=== PATIENT | male | born 1945 | race Caucasian/White ===

== ENCOUNTER → 2017-08-04 | Outpatient (CLI) | payer OTHER, BC | END | disposition home or self-care (01) | LOC: C.LAB1850 14:10 | PROVIDERS: ATTEND Urology | DX: N52.9 Male erectile dysfunction, unspecified (principal) ==

== ENCOUNTER → 2017-08-06 | Outpatient (CLI) | payer OTHER, BC ==
[~2017-08-06] MED LIST: AMLO-110 PO; ATOR-22 PO; CYM/30 PO; ELQ25 PO; FERR1TAB23 PO; FRS/40 PO; METO-217 PO; MINO1TAB PO; MULT-1093 PO
== END | disposition home or self-care (01) ==
LOC: C.LABSPEC 17:43
PROVIDERS: ATTEND Urology
DX: R33.9 Retention of urine, unspecified (principal); N39.0 Urinary tract infection, site not specified; R30.0 Dysuria

== ENCOUNTER → 2017-08-20 | Day surgery (SDC) | payer OTHER, BC ==
[2017-08-07 13:44] VITALS: Ht 185.4 cm; Wt 102.3 kg
[~2017-08-20] VITALS: Ht 185.4 cm; Wt 102.3 kg
[~2017-08-20] MED LIST changes: +500ML BSS 0.3ML EPI 1:1000PF IRRIG ONE; +ACETAMINOPHEN 325 MG TAB PO PRN; +AMVISC PLUS 0.8ML SYRINGE INT OCU ONE; +ATROPINE SULFATE 0.1 MG/ML 5ML SYR IV PRN; +AcetaZOLAMIDE 250 MG TAB PO SCH; +BETAXOLOL HCL 0.25% OP SUSP PER DROP CHARGE OPR SCH; +BRIMONIDINE TART 0.2% OP SOLN PER DROP CHARGE ONE; +BSS FLUSH ONE; +ENDOCOAT 0.85ML SYRINGE INT OCU ONE; +EpINEphrine INJ 1MG/ML AMP 1 MG/ML AMP ONE; +LACTATED RINGER'S 1000ML 500 ML IV SCH; +LIDOCAINE 4% OP SOLN DROP CHARGE ONE; +LIDOCAINE 4% OP SOLN DROP CHARGE OPR SCH; +LIDOCAINE HCL 1% MPF 2 ML VIAL ONE; +MIDAZOLAM HCL 1 MG/ML 2ML VIAL ONE; +MIX: 4ML BSS 1ML EPI 1:1000 PF INSTIL ONE; +MOXIFLOXACIN OPH SOLN PER DROP CHARGE ONE; +PHENYLEPHRINE HCL 10% OP SOLN PER DROP CHARGE OP SCH; +POVIDONE-IODINE OP SOLN 30 ML BTL ONE; +PROPARACAINE 0.5% OP SOLN PER DROP CHARGE OPR SCH; +PROPARACAINE HCL 0.5% OP SOLN 15 ML BTL OPR ONE; +TOBRAMYCIN/DEXAMETHASONE OPH OINT PER APPLN CHARGE ONE
--- NOTE | 2017-08-20 06:48 | History & Physical Bridge - [place] ---
H&P Re-Evaluation Bridge Note: I have examined the patient, reviewed the History & Physical and in the interval since the performance of the History & Physical I have noted the following changes of clinical significance: No changes noted
[2017-08-20] MEDS: PHENYLEPHRINE HCL 2.5% OP SOLN PER DROP CHARGE OPR SCH ×2 (07:09→07:14)
[2017-08-20] MEDS: TROPICAMIDE 1% OP SOLN PER DROP CHARGE OPR SCH ×2 (07:10→07:15)
[2017-08-20] MEDS: CYCLOPENTOLATE HCL 1% OP SOLN PER DROP CHARGE OPR SCH ×2 (07:11→07:16)
[2017-08-20] MEDS: MOXIFLOXACIN OPH SOLN PER DROP CHARGE OPR SCH ×2 (07:12→07:22)
--- NOTE | 2017-08-20 08:11 | Discharge Instructions-SurgCtr ---
Discharge Instructions Date of Service Aug 20, 2017. Visit Reason for Visit: Cataract Right Eye Discharge Discharge Diagnosis / Problem: lens implant right eye Discharge Goals Goal(s): Improve function Activity Recommendations Activity Limitations: resume your previous activity Lifting Limitations: no more than 10 pounds Exercise/Sports Limitations: gradually increase as tolerated May Resume Sexual Activity: when tolerated Shower/Bathe: tomorrow Driving or Machine Use: resume 1 day after discharge Anesthesia . Post Anesthesia Instructions: If you have had General Anesthesia or IV Sedation: * Do not drive today. * Resume driving when surgeon permits. * Do not make important decisions or sign legal documents today. * Call surgeon for: 1. Temperature elevations greater than 101 degrees F. 2. Uncontrollable pain. 3. Excessive bleeding. 4. Persistent nausea and vomiting. 5. Medication intolerance (nausea, vomiting or rash). * For nausea and vomiting use only clear liquids such as: tea, soda, bouillon until nausea subsides, then gradually increase diet as tolerated. * If you have any concerns or questions, call your surgeon's office. If physician is unavailable and it is an emergency, call 911 or go to the nearest emergency room. . Instructions / Follow-Up Instructions / Follow-Up ACTIVITY RECOMMENDATIONS: * Light activities. * Mild irritation and blurred vision are common for the first few days. * You may walk outside, read, watch television. * Redness around the white part of the eye is common. MEDICATIONS: Resume previous medications unless instructed otherwise by your surgeon. * Take white Diamox (Acetazolamide) tablet at 1 pm today. Start all eye drops at 1 pm today: * Eye drops (today and tomorrow): Prednisone - one drop in operative eye every 3 hours while awake Ofloxacin - one drop in operative eye every 3 hours while awake Prolensa - one drop in operative eye once daily SPECIAL CARE INSTRUCTIONS: * Tape plastic shield over eye to sleep at night. Call your doctor at with any concerns or problems. FOLLOW UP VISIT: Follow-up with Dr Lopez at [place] office as scheduled. Diet Recommendations Home Diet: no limitations Procedures Procedures Performed: Right Cataract Phacoemulsification With Intraocular Lens Implant Pending Studies Studies pending at discharge: no Medical Emergencies . Who to Call and When: Medical Emergencies: If at any time you feel your situation is an emergency, please call 911 immediately. . Non-Emergent Contact Non-Emergency issues call your: Computer Animator Call Non-Emergent contact if: your pain is not controlled [phone] . . "Provider Documentation" section prepared by Kodak Lopez. .
--- NOTE | 2017-08-20 08:12 | [facility] Operative Report ---
Operative Report Date of Service Aug 20, 2017. Operative Report 1. PREOPERATIVE DIAGNOSIS: Senile nuclear cataract, right eye. 2. POSTOPERATIVE DIAGNOSIS: Senile nuclear cataract, right eye. 3. PROCEDURE: Phacoemulsification of right cataract with posterior chamber lens implant, type [employer]ausch [employer] Lomb, model MI60L, power +20.5 diopters. ANESTHESIA: Local standby. SURGEON: Dr. Lopez. COMPLICATIONS: None. OPERATING TIME: 10 minutes. 4. OPERATION AND FINDINGS: DESCRIPTION OF PROCEDURE: The right pupil was dilated. The anesthetic was administered using a topical technique. The patient was transferred to the Femto Laser Room to make the primary incision, open the capsule, make two astigmatic incisions, and break up the cataract. The patient was then transferred to the operating room. The right eye was prepped and draped. A speculum was placed. A clear corneal incision was formed. The chamber was filled with Amvisc Plus and Endocoat. Epinephrine solution was used. A paracentesis was placed. A capsulorrhexis was performed. The nucleus was hydrodissected. The lens was removed with phacoemulsification. Time was 2.81 seconds. The aspiration unit was used to remove the cortex. The capsule was filled with Amvisc Plus. The lens implant was folded and placed into the capsule. The incisions were hydrated. The Amvisc was aspirated. The wounds were secure. The chamber was deep. The pupil was round. Brimonidine, TobraDex ointment and Vigamox solution were placed. The speculum was removed. The patient was returned to the Recovery Room in stable condition. I attest to the content of the Intraoperative Record and any orders documented therein. Any exceptions are noted below. The scribe's documentation has been prepared in my presence, under my direction and personally reviewed by me in its entirety. I confirm that the note above accurately reflects all work, treatment, procedures, and medical decision making performed by me. I personally scribed for Kodak Lopez M.D. ([email or web address]) on 08/20/17 at 08:12. Electronically submitted by Sofia Sheikh ([facility]).
[2017-08-20 08:13] VITALS: TEMP 36.6
[2017-08-20 08:38] VITALS: BP 120/79; PULSE 73; O2SAT 99
--- NOTE | 2017-08-20 08:52 | Anesthesia Progress Nt - [facility] ---
Anesthesia Post Op Note Date & Time Aug 20, 2017 at 08:51 Vital Signs Pain Intensity: 0 Vital Signs Past 12 Hours Date Time Temp Pulse Resp B/P (MAP) Pulse Ox O2 Delivery O2 Flow Rate FiO2 08/20/17 08:38 73 18 120/79 (93) 99 Room Air 08/20/17 08:13 36.6 72 16 122/80 (94) 99 Room Air 08/20/17 07:52 77 18 123/80 94 08/20/17 07:45 76 16 116/74 95 08/20/17 06:59 36.6 78 20 145/85 (105) 100 Room Air Notes Mental Status: alert / awake / arousable, participated in evaluation Pt Amnestic to Procedure: Yes Nausea / Vomiting: adequately controlled Pain: adequately controlled Airway Patency, RR, SpO2: stable & adequate BP & HR: stable & adequate Hydration State: stable & adequate Anesthetic Complications: no major complications apparent
== END | disposition home or self-care (01) ==
LOC: X.SURG 06:45
PROVIDERS: ATTEND Specialist
DX: H25.11 Age-related nuclear cataract, right eye (principal); I10 Essential (primary) hypertension; Z79.899 Other long term (current) drug therapy

== ENCOUNTER → 2017-09-12 | Outpatient (CLI) | payer OTHER, BC ==
[~2017-09-12] MED LIST changes: -500ML BSS 0.3ML EPI 1:1000PF IRRIG ONE; -ACETAMINOPHEN 325 MG TAB PO PRN; -AMVISC PLUS 0.8ML SYRINGE INT OCU ONE; -ATROPINE SULFATE 0.1 MG/ML 5ML SYR IV PRN; -AcetaZOLAMIDE 250 MG TAB PO SCH; -BETAXOLOL HCL 0.25% OP SUSP PER DROP CHARGE OPR SCH; -BRIMONIDINE TART 0.2% OP SOLN PER DROP CHARGE ONE; -BSS FLUSH ONE; -ENDOCOAT 0.85ML SYRINGE INT OCU ONE; -EpINEphrine INJ 1MG/ML AMP 1 MG/ML AMP ONE; -LACTATED RINGER'S 1000ML 500 ML IV SCH; -LIDOCAINE 4% OP SOLN DROP CHARGE ONE; -LIDOCAINE 4% OP SOLN DROP CHARGE OPR SCH; -LIDOCAINE HCL 1% MPF 2 ML VIAL ONE; -MIDAZOLAM HCL 1 MG/ML 2ML VIAL ONE; -MIX: 4ML BSS 1ML EPI 1:1000 PF INSTIL ONE; -MOXIFLOXACIN OPH SOLN PER DROP CHARGE ONE; -PHENYLEPHRINE HCL 10% OP SOLN PER DROP CHARGE OP SCH; -POVIDONE-IODINE OP SOLN 30 ML BTL ONE; -PROPARACAINE 0.5% OP SOLN PER DROP CHARGE OPR SCH; -PROPARACAINE HCL 0.5% OP SOLN 15 ML BTL OPR ONE; -TOBRAMYCIN/DEXAMETHASONE OPH OINT PER APPLN CHARGE ONE
[2017-09-12 14:09] LABS: BASO % 0.8 %; BASO ABS # 0.05 K/uL (0-0.2); EOS ABS # 0.13 K/uL (0-0.5); HEMATOCRIT 39.7 % (42-52); HEMOGLOBIN 13.5 g/dL (14.0-18.0); IG# 0.01 K/uL (0.00-0.02); LYMPH % 11.1 %; LYMPH ABS # 0.72 K/uL (1.2-3.4); MEAN CELL VOLUME 90.8 fL (80-100); MEAN CORPUSCULAR HEMOGLOBIN 30.9 pg (25-34); MONO % 9.1 %; MONO ABS # 0.59 K/uL (0.11-0.59); NEUT % 76.8 %; NEUT ABS # 4.96 K/uL (1.4-6.5); PLATELET COUNT 196 K/uL (130-400); RED CELL DISTRIBUTION WIDTH CV 14.1 % (11.5-14.5); RED CELL DISTRIBUTION WIDTH SD 46.5 fL (36.4-46.3); WHITE BLOOD COUNT 6.46 K/uL (4.8-10.8)
[2017-09-12 14:13] LABS: ALBUMIN 3.9 gm/dl (3.4-5.0); ALT/SGPT 34 U/L (12-78); AST/SGOT 28 U/L (15-37); BLOOD UREA NITROGEN 39 mg/dl (7-18); CALCIUM 8.7 mg/dl (8.5-10.1); CARBON DIOXIDE 27 mmol/L (21-32); CREATININE 2.61 mg/dl (0.60-1.40); GLUCOSE 99 mg/dl (70-99); SODIUM 141 mmol/L (136-145)
[2017-09-12 14:16] LABS: ALKALINE PHOSPHATASE 97 U/L (45-117); CHOLESTEROL 155 mg/dl (0-200); LDL CHOLESTEROL CALCULATED 34 mg/dl; TOTAL PROTEIN 7.2 gm/dl (6.4-8.2)
== END | disposition home or self-care (01) ==
LOC: C.LABBC 11:30
PROVIDERS: ATTEND Nurse Practitioner Adult Health
DX: I10 Essential (primary) hypertension (principal); E78.00 Pure hypercholesterolemia, unspecified; I48.91 Unspecified atrial fibrillation

== ENCOUNTER → 2017-09-17 | Day surgery (SDC) | payer OTHER, BC ==
[2017-09-02 11:26] VITALS: BMI 29.0
[2017-09-08 08:26] VITALS: Ht 185.4 cm; Wt 102.3 kg
[~2017-09-17] VITALS: Ht 185.4 cm; Wt 102.3 kg
[~2017-09-17] MED LIST changes: +500ML BSS 0.3ML EPI 1:1000PF IRRIG ONE; +ACETAMINOPHEN 325 MG TAB PO PRN; +AMVISC PLUS 0.8ML SYRINGE INT OCU ONE; +ATROPINE SULFATE 0.1 MG/ML 5ML SYR IV PRN; +AcetaZOLAMIDE 250 MG TAB PO SCH; +BETAXOLOL HCL 0.25% OP SUSP PER DROP CHARGE OPL SCH; +BRIMONIDINE TART 0.2% OP SOLN PER DROP CHARGE ONE; +BSS FLUSH ONE; +CYCLOPENTOLATE HCL 1% OP SOLN PER DROP CHARGE OPL SCH; +ENDOCOAT 0.85ML SYRINGE INT OCU ONE; +EpHEDrine SULFATE INJ 50 MG/ML AMP IV PRN; +EpINEphrine INJ 1MG/ML AMP 1 MG/ML AMP ONE; +LACTATED RINGER'S 1000ML 500 ML IV SCH; +LIDOCAINE 4% OP SOLN DROP CHARGE ONE; +LIDOCAINE 4% OP SOLN DROP CHARGE OPL SCH; +LIDOCAINE HCL 1% MPF 2 ML VIAL ONE; +MIDAZOLAM HCL 1 MG/ML 2ML VIAL ONE; +MIX: 4ML BSS 1ML EPI 1:1000 PF INSTIL ONE; +MOXIFLOXACIN OPH SOLN PER DROP CHARGE ONE; +MOXIFLOXACIN OPH SOLN PER DROP CHARGE OPL SCH; +OCUCOAT 1 ML SOLN IO ONE; +PHENYLEPHRINE HCL 10% OP SOLN 5 ML BTL OPL ONE; +PHENYLEPHRINE HCL 2.5% OP SOLN PER DROP CHARGE OPL SCH; +POVIDONE-IODINE OP SOLN 30 ML BTL ONE; +PROPARACAINE 0.5% OP SOLN PER DROP CHARGE OPL SCH; +PROPARACAINE HCL 0.5% OP SOLN 15 ML BTL OPL ONE; +TOBRAMYCIN/DEXAMETHASONE OPH OINT PER APPLN CHARGE ONE; +TROPICAMIDE 1% OP SOLN PER DROP CHARGE OPL SCH
--- NOTE | 2017-09-17 07:28 | History & Physical Bridge - [place] ---
H&P Re-Evaluation Bridge Note: I have examined the patient, reviewed the History & Physical and in the interval since the performance of the History & Physical I have noted the following changes of clinical significance: No changes noted Planning Femto Laser.
[2017-09-17] MEDS: PHENYLEPHRINE HCL 2.5% OP SOLN PER DROP CHARGE OPL SCH ×2 (08:47→08:55)
[2017-09-17] MEDS: TROPICAMIDE 1% OP SOLN PER DROP CHARGE OPL SCH ×2 (08:48→08:56)
[2017-09-17] MEDS: CYCLOPENTOLATE HCL 1% OP SOLN PER DROP CHARGE OPL SCH ×2 (08:49→08:57)
[2017-09-17] MEDS: MOXIFLOXACIN OPH SOLN PER DROP CHARGE OPL SCH ×2 (08:50→08:59)
--- NOTE | 2017-09-17 09:57 | [facility] Operative Report ---
Operative Report Date of Service Sep 17, 2017. Operative Report 1. PREOPERATIVE DIAGNOSIS: Senile nuclear cataract, left eye. 2. POSTOPERATIVE DIAGNOSIS: Senile nuclear cataract, left eye. 3. PROCEDURE: Phacoemulsification of left cataract with posterior chamber lens implant, type Bausch [employer] Lomb, model MI60L, power +20.0 diopters. ANESTHESIA: Local standby. SURGEON: Dr. Lopez. COMPLICATIONS: None. OPERATING TIME: 10 minutes. 4. OPERATION AND FINDINGS: DESCRIPTION OF PROCEDURE: The left pupil was dilated. The patient was transported to the Femto Laser room. The Femto was used to make the primary incision, astigmatic incisions, open the capsule, and break up the lens. The patient then was transported to the operating room. The anesthetic was administered using a topical technique. The left eye was prepped and draped. A speculum was placed. A clear corneal incision was formed. The chamber was filled with Amvisc Plus and Endocoat. Epinephrine solution was used. A paracentesis was placed. A capsulorrhexis was performed. The nucleus was hydrodissected. The lens was removed with phacoemulsification. Time was 1.17 seconds. The aspiration unit was used to remove the cortex. The capsule was filled with Amvisc Plus. The lens implant was folded and placed into the capsule. The incisions were hydrated. The Amvisc was aspirated. The wounds were secure. The chamber was deep. The pupil was round. Brimonidine, TobraDex ointment and Vigamox solution were placed. The speculum was removed. The patient was returned to the Recovery Room in stable condition. I attest to the content of the Intraoperative Record and any orders documented therein. Any exceptions are noted below. The scribe's documentation has been prepared in my presence, under my direction and personally reviewed by me in its entirety. I confirm that the note above accurately reflects all work, treatment, procedures, and medical decision making performed by me. I personally scribed for Kodak Lopez M.D. ([place]) on 09/17/17 at 09:57. Electronically submitted by Sofia Sheikh ([facility]).
--- NOTE | 2017-09-17 09:59 | Discharge Instructions-SurgCtr ---
Discharge Instructions Date of Service Sep 17, 2017. Visit Reason for Visit: Cataract Left Eye Discharge Discharge Diagnosis / Problem: lens implant left eye Discharge Goals Goal(s): Improve function Activity Recommendations Activity Limitations: resume your previous activity Lifting Limitations: no more than 10 pounds Exercise/Sports Limitations: gradually increase as tolerated May Resume Sexual Activity: when tolerated Shower/Bathe: tomorrow Driving or Machine Use: resume 1 day after discharge Anesthesia . Post Anesthesia Instructions: If you have had General Anesthesia or IV Sedation: * Do not drive today. * Resume driving when surgeon permits. * Do not make important decisions or sign legal documents today. * Call surgeon for: 1. Temperature elevations greater than 101 degrees F. 2. Uncontrollable pain. 3. Excessive bleeding. 4. Persistent nausea and vomiting. 5. Medication intolerance (nausea, vomiting or rash). * For nausea and vomiting use only clear liquids such as: tea, soda, bouillon until nausea subsides, then gradually increase diet as tolerated. * If you have any concerns or questions, call your surgeon's office. If physician is unavailable and it is an emergency, call 911 or go to the nearest emergency room. . Instructions / Follow-Up Instructions / Follow-Up ACTIVITY RECOMMENDATIONS: * Light activities. * Mild irritation and blurred vision are common for the first few days. * You may walk outside, read, watch television. * Redness around the white part of the eye is common. MEDICATIONS: Resume previous medications unless instructed otherwise by your surgeon. * Take white Diamox (Acetazolamide) tablet at 1 pm today. Start all eye drops at 1 pm today: * Eye drops (today and tomorrow): Prednisone - one drop in operative eye every 3 hours while awake Ofloxacin - one drop in operative eye every 3 hours while awake Prolensa - one drop in operative eye once daily SPECIAL CARE INSTRUCTIONS: * Tape plastic shield over eye to sleep at night. Call your doctor at with any concerns or problems. FOLLOW UP VISIT: Follow-up with Dr Lopez at [place] office as scheduled. Diet Recommendations Home Diet: no limitations Procedures Procedures Performed: Left Cataract Phacoemulsification With Intraocular Lens Implant Pending Studies Studies pending at discharge: no Medical Emergencies . Who to Call and When: Medical Emergencies: If at any time you feel your situation is an emergency, please call 911 immediately. . Non-Emergent Contact Non-Emergency issues call your: Service Center Technician Call Non-Emergent contact if: your pain is not controlled [phone] . . "Provider Documentation" section prepared by Kodak Lopez. .
[2017-09-17 10:00] VITALS: TEMP 36.8
--- NOTE | 2017-09-17 10:07 | Anesthesia Progress Nt - [facility] ---
Anesthesia Post Op Note Date & Time Sep 17, 2017 at 10:07 Vital Signs Pain Intensity: 0 Vital Signs Past 12 Hours Date Time Temp Pulse Resp B/P (MAP) Pulse Ox O2 Delivery O2 Flow Rate FiO2 09/17/17 10:00 36.8 69 16 124/78 (93) 97 Room Air 09/17/17 09:37 66 09/17/17 09:37 66 97 09/17/17 09:36 137/81 09/17/17 09:32 79 09/17/17 09:32 79 119/84 100 09/17/17 08:36 36.9 76 16 134/80 (98) 98 Room Air Notes Mental Status: alert / awake / arousable, participated in evaluation Pt Amnestic to Procedure: Yes Nausea / Vomiting: adequately controlled Pain: adequately controlled Airway Patency, RR, SpO2: stable & adequate BP & HR: stable & adequate Hydration State: stable & adequate Anesthetic Complications: no major complications apparent
[2017-09-17 10:24] VITALS: BP 137/85; PULSE 63; O2SAT 96
== END | disposition home or self-care (01) ==
LOC: X.SURG 08:01
PROVIDERS: ATTEND Specialist
DX: H25.12 Age-related nuclear cataract, left eye (principal); G47.33 Obstructive sleep apnea (adult) (pediatric); I48.91 Unspecified atrial fibrillation

== ENCOUNTER → 2017-09-19 | Outpatient (CLI) | payer OTHER, BC ==
[~2017-09-19] MED LIST changes: -500ML BSS 0.3ML EPI 1:1000PF IRRIG ONE; -ACETAMINOPHEN 325 MG TAB PO PRN; -AMVISC PLUS 0.8ML SYRINGE INT OCU ONE; -ATROPINE SULFATE 0.1 MG/ML 5ML SYR IV PRN; -AcetaZOLAMIDE 250 MG TAB PO SCH; -BETAXOLOL HCL 0.25% OP SUSP PER DROP CHARGE OPL SCH; -BRIMONIDINE TART 0.2% OP SOLN PER DROP CHARGE ONE; -BSS FLUSH ONE; -CYCLOPENTOLATE HCL 1% OP SOLN PER DROP CHARGE OPL SCH; -ENDOCOAT 0.85ML SYRINGE INT OCU ONE; -EpHEDrine SULFATE INJ 50 MG/ML AMP IV PRN; -EpINEphrine INJ 1MG/ML AMP 1 MG/ML AMP ONE; -LACTATED RINGER'S 1000ML 500 ML IV SCH; -LIDOCAINE 4% OP SOLN DROP CHARGE ONE; -LIDOCAINE 4% OP SOLN DROP CHARGE OPL SCH; -LIDOCAINE HCL 1% MPF 2 ML VIAL ONE; -MIDAZOLAM HCL 1 MG/ML 2ML VIAL ONE; -MIX: 4ML BSS 1ML EPI 1:1000 PF INSTIL ONE; -MOXIFLOXACIN OPH SOLN PER DROP CHARGE ONE; -MOXIFLOXACIN OPH SOLN PER DROP CHARGE OPL SCH; -OCUCOAT 1 ML SOLN IO ONE; -PHENYLEPHRINE HCL 10% OP SOLN 5 ML BTL OPL ONE; -PHENYLEPHRINE HCL 2.5% OP SOLN PER DROP CHARGE OPL SCH; -POVIDONE-IODINE OP SOLN 30 ML BTL ONE; -PROPARACAINE 0.5% OP SOLN PER DROP CHARGE OPL SCH; -PROPARACAINE HCL 0.5% OP SOLN 15 ML BTL OPL ONE; -TOBRAMYCIN/DEXAMETHASONE OPH OINT PER APPLN CHARGE ONE; -TROPICAMIDE 1% OP SOLN PER DROP CHARGE OPL SCH
[2017-09-19 13:55] LABS: BLOOD UREA NITROGEN 42 mg/dl (7-18); CARBON DIOXIDE 24 mmol/L (21-32); CREATININE 2.52 mg/dl (0.60-1.40); GLUCOSE 85 mg/dl (70-99); POTASSIUM 3.8 mmol/L (3.5-5.1); SODIUM 140 mmol/L (136-145)
== END | disposition home or self-care (01) ==
LOC: C.LABBC 10:35
PROVIDERS: ATTEND Nurse Practitioner Adult Health
DX: N18.4 Chronic kidney disease, stage 4 (severe) (principal)

== ENCOUNTER → 2017-09-25 | Outpatient (CLI) | payer OTHER, BC | END | disposition home or self-care (01) | LOC: C.LABSPEC 14:10 | PROVIDERS: ATTEND Internal Medicine Nephrology | DX: N18.4 Chronic kidney disease, stage 4 (severe) (principal) ==

== ENCOUNTER → 2017-09-26 | Outpatient (CLI) | payer OTHER, BC ==
--- NOTE | 2017-09-26 11:35 | DIAGNOSTIC IMAGING REPORT ---
RENAL ULTRASOUND CLINICAL HISTORY: Acute on chronic renal insufficiency. COMPARISON STUDY: None. TECHNIQUE: Sonography of the kidneys and the urinary bladder was performed. FINDINGS: The right kidney measures 10.4 x 4 x 5.1 cm and the left measures 10.1 x 4.5 x 4.6 cm. Renal echogenicity is increased. Renal size and cortical thickness are normal. There is no hydronephrosis. The left renal pelvis is slightly prominent. Several small anechoic bilateral renal lesions measure up to 1.3 cm and reflect cysts. Both ureteral jets were identified. IMPRESSION: 1. No hydronephrosis. 2. Increased renal echogenicity consistent with medical renal disease. 3. Normal renal size and cortical thickness. Electronically signed by: Chao Connolly M.D. 09/26/2017 11:34 AM Dictated Date/Time: 09/26/2017 11:32 AM
== END | disposition home or self-care (01) ==
LOC: C.ULTRBC 11:03
PROVIDERS: ATTEND Internal Medicine Nephrology
DX: N28.9 Disorder of kidney and ureter, unspecified (principal)

== ENCOUNTER → 2017-10-09 | Outpatient (CLI) | payer OTHER, BC ==
[2017-10-09 14:12] LABS: ALBUMIN 3.8 gm/dl (3.4-5.0); BLOOD UREA NITROGEN 41 mg/dl (7-18); CALCIUM 8.9 mg/dl (8.5-10.1); CARBON DIOXIDE 27 mmol/L (21-32); CREATININE 2.63 mg/dl (0.60-1.40); GLUCOSE 154 mg/dl (70-99); POTASSIUM 3.9 mmol/L (3.5-5.1); SODIUM 137 mmol/L (136-145)
[2017-10-09 14:16] LABS: PHOSPHORUS 3.3 mg/dl (2.5-4.9)
== END | disposition home or self-care (01) ==
LOC: C.LABBC 10:31
PROVIDERS: ATTEND Internal Medicine Nephrology
DX: N28.9 Disorder of kidney and ureter, unspecified (principal)

== ENCOUNTER → 2017-12-08 | Outpatient (CLI) | payer OTHER, BC ==
[~2017-12-08] MED LIST changes: +BACL10TA PO
--- NOTE | 2017-12-08 12:46 | DIAGNOSTIC IMAGING REPORT ---
LEG LENGTH STUDY (WHOLE LEG) CLINICAL HISTORY: LEG LENGTH COMPARISON STUDY: No previous studies for comparison. FINDINGS: Total right hip and knee arthroplasties are noted. When measuring from the superior aspect of the femoral component of the right hip arthroplasty through the tibial plafond, the right lower extremity measures 97.3 cm in length. When measuring from the left femoral head to the tibial plafond, the left lower extremity measures 96.4 cm. IMPRESSION: 1. Right lower extremity length of 97.3 cm and left lower extremity length of 96.4 cm. 2. Status post total right hip and knee arthroplasty. Electronically signed by: Chao Connolly M.D. 12/08/2017 12:45 PM Dictated Date/Time: 12/08/2017 12:42 PM
== END | disposition home or self-care (01) ==
LOC: C.RADBC 12:16
PROVIDERS: ATTEND Anesthesiology
DX: M46.1 Sacroiliitis, not elsewhere classified (principal); Z96.641 Presence of right artificial hip joint; Z96.651 Presence of right artificial knee joint

== ENCOUNTER → 2018-03-02 | Outpatient (CLI) | payer OTHER, BC ==
[~2018-03-02] MED LIST changes: -AMLO-110 PO; +AMLO5TAB3 PO; -CYM/30 PO; +DULO60CA44 PO
[2018-03-02 13:40] LABS: ALBUMIN 3.9 gm/dl (3.4-5.0); ALKALINE PHOSPHATASE 83 U/L (45-117); ALT/SGPT 35 U/L (12-78); AST/SGOT 23 U/L (15-37); BLOOD UREA NITROGEN 44 mg/dl (7-18); CALCIUM 8.5 mg/dl (8.5-10.1); CARBON DIOXIDE 28 mmol/L (21-32); CREATININE 2.49 mg/dl (0.60-1.40); GLUCOSE 83 mg/dl (70-99); POTASSIUM 4.1 mmol/L (3.5-5.1); SODIUM 139 mmol/L (136-145); TOTAL PROTEIN 7.1 gm/dl (6.4-8.2)
== END | disposition home or self-care (01) ==
LOC: C.LABBC 10:20
PROVIDERS: ATTEND Nurse Practitioner Adult Health
DX: I10 Essential (primary) hypertension (principal); E78.00 Pure hypercholesterolemia, unspecified

== ENCOUNTER 2019-05-16 23:05 | Inpatient (IN) ==
[2019-05-16] MEDS ORDERED: SODIUM CHLORIDE 0.9% 1000ML 1,000 ML IV SCH (23:30)
[2019-05-17 00:04] LABS: Basophils # (auto) 0.01 K/uL (0-0.2); Basophils % (auto) 0.1 %; Eosinophils # (auto) 0.07 K/uL (0-0.5); Hematocrit (blood only) 34.9 % (42-52); Hemoglobin 11.5 g/dL (14.0-18.0); Immature Granulocytes # (auto) 0.02 K/uL (0.00-0.02); Immature Granulocytes % (auto) 0.3 %; Lymphocytes % (auto) 2.8 %; Mean Corpuscular Hemoglobin 30.4 pg (25-34); Mean Corpuscular Volume 92.3 fL (80-100); Mean Platelet Volume 8.9 fL (7.4-10.4); Monocytes # (auto) 0.33 K/uL (0.11-0.59); Monocytes % (auto) 4.6 %; Neutrophils # (auto) 6.58 K/uL (1.4-6.5); Neutrophils % (auto) 91.2 %; Platelet Count 187 K/uL (130-400); RDW Standard Deviation 47.4 fL (36.4-46.3); Red Blood Count 3.78 M/uL (4.7-6.1); White Blood Count 7.21 K/uL (4.8-10.8)
[2019-05-17 00:13] LABS: INR 1.1 (0.9-1.1); Prothrombin Time 11.4 Seconds (9.0-12.0)
[2019-05-17] MEDS ORDERED: APIXABAN 2.5 MG TAB PO STA (00:18)
[2019-05-17] MEDS ORDERED: METOPROLOL TARTRATE 1 MG/ML VIAL IV STA ×2 (00:18→01:13)
[2019-05-17 00:24] LABS: Troponin I 0.022 ng/ml (0-0.045)
[2019-05-17 00:25] LABS: Appearance Urine Cloudy (Clear); Bilirubin Urine Negative (Negative); Blood Urine 2+ (Negative); Color Urine Yellow; Glucose Urine UA Negative (Negative); Ketones Urine Negative (Negative); Leukocyte Esterase Urine 1+ (Negative); Nitrite Urine Positive (Negative); Protein Urine 2+ (Negative); Urobilinogen Urine Negative (Negative)
[2019-05-17] MEDS ORDERED: cefTRIAXone SODIUM 2,000 MG/70 ML BAG IV STA (00:32)
[2019-05-17 00:33] LABS: WBC Urine >30 /hpf (0-5)
[2019-05-17 00:34] LABS: Epithelial Cell Urine 0-5 /lpf (0-5)
[2019-05-17 00:35] LABS: Bacteria Urine 2+ (Negative)
[2019-05-17 00:53] LABS: Alanine Aminotransferase 24 U/L (12-78); Albumin Level 3.6 gm/dl (3.4-5.0); Aspartate Aminotransferase 19 U/L (15-37); BUN Creatinine Ratio 21.1 (10-20); Blood Urea Nitrogen 48 mg/dl (7-18); Est GFR (African American) 32.4; Est GFR (Non-African American) 27.9; Glucose 127 mg/dl (70-99); Lipase 490 U/L (73-393)
[2019-05-17 00:56] LABS: Albumin Globulin Ratio 1.1 (0.9-2); Alkaline Phosphatase 101 U/L (45-117); Bilirubin,Total 0.6 mg/dl (0.2-1); Globulin 3.3 gm/dl (2.5-4.0); Total Protein 6.9 gm/dl (6.4-8.2)
[2019-05-17 01:07] LABS: Calcium 8.3 mg/dl (8.5-10.1); Carbon Dioxide 22 mmol/L (21-32); Chloride 107 mmol/L (98-107); Potassium 3.2 mmol/L (3.5-5.1); Sodium 139 mmol/L (136-145)
--- NOTE | 2019-05-17 01:43 | Emergency Department Note ---
Entered by Alexus Barber acting as a scribe for Jeremiah Prado M.D. History of Present Illness General Chief complaint: Urinary Symptoms Stated complaint: UTI SYMPTOMS Source: patient History of Present Illness Onset (ago): hour(s) (this morning) Location: genitals Pain Consistency: + intermittent Maximum Pain Intensity: 4 Quality: + other (urinary symptoms) Associated symptoms: + fever/chills, + weakness and + other (lower abdominal pain); no cough and no shortness of breath The patient is a 73 year old male who presents to the Emergency Room with complaints of intermittent urinary symptoms beginning this morning. The patient notes his urine was dark with a strong odor. The patient reports chills, fever, lower abdominal pain, and weakness this evening. He denies cough, shortness of breath, and cold symptoms. The patient reports using a self catheterization four times a day for the past several years. He states his last urine check was 6 weeks ago. He notes previous urinary infections. The patient reports a history of blood clots, and states he is on Eliquis. He notes his urologist is Dr. Ba. Home Medications Home Medications Medication Instructions Recorded Confirmed Type amlodipine 5 mg tablet 5 mg PO QAM 04/06/18 05/16/19 History apixaban 2.5 mg tablet 2.5 mg PO BID 04/06/18 05/16/19 History atorvastatin 20 mg tablet 20 mg PO HS tab 04/06/18 05/16/19 History ferrous sulfate 325 mg (65 mg 325 mg PO DAILY tab 04/06/18 05/16/19 History iron) tablet furosemide 40 mg tablet 40 mg PO QAM 04/06/18 05/16/19 History metoprolol succinate ER 50 mg 50 mg PO QAM 04/06/18 05/16/19 History tablet,extended release 24 hr minoxidil 10 mg tablet 10 mg PO QAM 04/06/18 05/16/19 History multivitamin with minerals tablet 1 tab PO DAILY tab 04/06/18 05/16/19 History tramadol 50 mg PO Q6H PRN #14 tab 05/05/18 05/16/19 Rx duloxetine 30 mg capsule,delayed 30 mg PO DAILY #90 cap 03/26/19 05/16/19 Rx release alprazolam 0.25 mg tablet 0.25 mg PO DAILY PRN #30 tab 04/07/19 05/16/19 Rx ciclopirox 8 % TOPICAL UD 05/16/19 05/16/19 History Allergies Allergy/AdvReac Type Severity Reaction Status Date / Time tetracycline Allergy Unknown HIVES Verified 05/16/19 23:39 Past Med/Surg History Medical History Urinary retention Onychomycosis Mitral regurgitation Lumbar radiculopathy Impotence, organic Edema Diarrhea Constipation Chronic rhinitis Chronic kidney disease, stage IV (severe) BPH with obstruction/lower urinary tract symptoms Arthritis Anxiety Adult situational stress disorder Acute on chronic renal insufficiency Atrial fibrillation Hyperlipidemia Hypertension Lumbar spinal stenosis (Chronic) Neurogenic bladder (Chronic) ST CATH EVERY 5 HOURS AND PRN PTSD (post-traumatic stress disorder) POST AORTIC DISSECTION Creatinine elevation Osteoarthritis Sleep apnea CPAP Surgical History History of cardiac catheterization 2003 History of gastric bypass 2010 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 Aortic dissection 2014 REPAIR (ARTIFICIAL)/[place] History of arthroscopy RT KNEE History of cataract surgery RT/LEFT History of colonoscopy History of esophagogastroduodenoscopy (EGD) History of open reduction and internal fixation (ORIF) procedure RT WRIST History of rhinoplasty History of tooth extraction History of total hip arthroplasty RT History of total knee replacement RT Nausea and vomiting after administration of anesthetic agent Family History Grandmother Family history of diabetes mellitus Mother Gallbladder disease Father Hypertension Prostate cancer Myocardial infarction Other Family history non-contributory Social History Preferred Language: Kyr[place] Communication Ability: Effective Private Client Advisor Required: No Beliefs That Will Affect Care: None Current Living Situation: Family Feels Safe at Home: Yes Smoking Status: Never smoker Second Hand Exposure: No ; Hx Alcohol Use: No Hx Substance Use: No Review of Systems See HPI for pertinent positives & negatives. and A total of 10 systems reviewed and were otherwise negative Physical Exam Vital Signs Vital Signs - 24 hr 05/16/19 23:10 05/17/19 00:17 05/17/19 00:40 Temperature 36.9 C Temperature Source Oral Sepsis Recent Fever Within 48 Hours No Sepsis New/Unexplained Change in Mental Status No Sepsis Action Taken by Nursing No Action Required Pulse Rate 115 H Pulse Rate [Bilateral Apical] 106 H 97 H Respiratory Rate 18 20 18 Respiratory Effort / Characteristics Non-Labored Respiratory Depth Normal Normal Blood Pressure 152/88 H Blood Pressure [Left Arm] 148/91 H 131/82 Blood Pressure Mean 109 Blood Pressure Mean [Left Arm] 110 98 Pulse Oximetry 97 96 97 Oxygen Delivery Method Room Air Room Air Room Air 05/17/19 01:20 05/17/19 01:53 05/17/19 02:20 Temperature Temperature Source Sepsis Recent Fever Within 48 Hours Sepsis New/Unexplained Change in Mental Status Sepsis Action Taken by Nursing Pulse Rate Pulse Rate [Bilateral Apical] 102 H 114 H 106 H Respiratory Rate 20 20 20 Respiratory Effort / Characteristics Respiratory Depth Blood Pressure Blood Pressure [Left Arm] 121/83 112/72 104/72 Blood Pressure Mean Blood Pressure Mean [Left Arm] 95 85 82 Pulse Oximetry 94 95 96 Oxygen Delivery Method Room Air Room Air Room Air 05/17/19 03:05 Temperature 37.3 C Temperature Source Oral Sepsis Recent Fever Within 48 Hours Sepsis New/Unexplained Change in Mental Status Sepsis Action Taken by Nursing Pulse Rate Pulse Rate [Bilateral Apical] 108 H Respiratory Rate 20 Respiratory Effort / Characteristics Respiratory Depth Blood Pressure Blood Pressure [Left Arm] 108/67 Blood Pressure Mean Blood Pressure Mean [Left Arm] 80 Pulse Oximetry 96 Oxygen Delivery Method Room Air GENERAL: Awake, alert, well-appearing, in no distress HENT: Normocephalic, atraumatic. EYES: Normal conjunctiva. Sclera non-icteric. NECK: Supple. No nuchal rigidity. RESPIRATORY: Clear to auscultation. No wheezes. Normal respiratory effort. CARDIAC: Tachycardic rate. Irregular rhythm. Extremities warm and perfused. GI: Soft, non-distended. Slight super suprapubic tenderness. No rebound or guarding. RECTAL: Deferred. MUSCULOSKELETAL: Atraumatic. Chest examination reveals no tenderness. LOWER EXTREMITIES: Calves are equal size bilaterally and non-tender. No edema. NEURO: Decreased motor function in LEs. No facial droop or slurred speech. SKIN: Warm and dry. No rash or jaundice noted. Course 2315: Past medical records reviewed. The patient was evaluated in room B02 . A complete history and physical exam was performed. 0035: Upon reevaluation, the patient is feeling better. 0122: Upon reevaluation, I discussed findings and results with the patient and his family. They verbalized agreement of the treatment plan. Page to Dr. Hay of the [facility] [place] Hospitalist Service was placed. The patient will be evaluated for further management and care. Administered Medications Discontinued Medications Acetaminophen (Tylenol) 1,000 mg PO NOW STA Stop: 05/17/19 02:06 Last Admin: 05/17/19 02:28 Dose: 1,000 mg Documented by: [id number] Apixaban (Eliquis) 2.5 mg PO BID STA Stop: 05/17/19 00:19 Last Admin: 05/17/19 00:51 Dose: 2.5 mg Documented by: [id number] Sodium Chloride (Nss 1000ml) 1,000 mls @ 999 mls/hr IV .Q1H1M [place] Stop: 05/17/19 00:30 Last Infusion: 05/17/19 00:39 Dose: 0 mls/hr Documented by: [id number] Admin: 05/16/19 23:40 Dose: 999 mls/hr Documented by: [id number] Ceftriaxone Sodium (Rocephin) 2,000 mg in 70 mls @ 140 mls/hr IV NOW STA Stop: 05/17/19 01:01 Last Infusion: 05/17/19 01:13 Dose: 0 mls/hr Documented by: [id number] Admin: 05/17/19 00:39 Dose: 140 mls/hr Documented by: [id number] Metoprolol Tartrate (Lopressor) 5 mg IV NOW STA Stop: 05/17/19 00:19 Last Admin: 05/17/19 00:33 Dose: 5 mg Documented by: [id number] Metoprolol Tartrate (Lopressor) 5 mg IV NOW STA Stop: 05/17/19 01:14 Last Admin: 05/17/19 01:19 Dose: 5 mg Documented by: [id number] Potassium Chloride (Klor-Con M20) 40 meq PO NOW STA Stop: 05/17/19 01:45 Last Admin: 05/17/19 02:14 Dose: Not Given Documented by: [id number] Potassium Chloride (Klor-Con M10) Confirm Administered Dose 40 meq PO .STK-MED ONE Stop: 05/17/19 01:52 Last Admin: 05/17/19 01:53 Dose: 40 meq Documented by: [id number] Medical Decision Making Differential Diagnosis Differential diagnosis: Etiologies such as viral syndrome, otitis, pharyngitis, pneumonia, influenza, meningitis, urinary tract infection, sepsis, bacteremia, as well as others were entertained. Medical Records Attestation: I reviewed the patient's medical records. Home Medications Current Medication List: was personally reviewed by me Laboratory Data Attestation: I reviewed the patient's lab results. Result diagrams: 05/16/19 23:25 05/16/19 23:25 Lab Results 05/16/19 05/16/19 05/16/19 Range/Units 23:25 23:25 23:25 WBC 7.21 (4.8-10.8) K/uL RBC 3.78 L (4.7-6.1) M/uL Hgb 11.5 L (14.0-18.0) g/dL Hct 34.9 L (42-52) % MCV 92.3 (80-100) fL MCH 30.4 (25-34) pg MCHC 33.0 (32-36) g/dL RDW Std Deviation 47.4 H (36.4-46.3) fL RDW Coeff of [place]ector 14.0 (11.5-14.5) % Plt Count 187 (130-400) K/uL MPV 8.9 (7.4-10.4) fL Immature Gran % (Auto) 0.3 % Neut % (Auto) 91.2 % Lymph % (Auto) 2.8 % [place] % (Auto) 4.6 % Eos % (Auto) 1.0 % Baso % (Auto) 0.1 % Immature Gran # (Auto) 0.02 (0.00-0.02) K/uL Neut # (Auto) 6.58 H (1.4-6.5) K/uL Lymph # (Auto) 0.20 L (1.2-3.4) K/uL [place] # (Auto) 0.33 (0.11-0.59) K/uL Eos # (Auto) 0.07 (0-0.5) K/uL Baso # (Auto) 0.01 (0-0.2) K/uL PT 11.4 (9.0-12.0) Seconds INR 1.1 (0.9-1.1) Sodium Potassium Chloride Carbon Dioxide Anion Gap BUN Creatinine Est Cr Clr Drug Dosing Est GFR ( Amer) Est GFR (Non-Af Amer) BUN/Creatinine Ratio Glucose Lactate 1.4 (0.4-2.0) mmol/L Calcium Magnesium (1.8-2.4) mg/dl Total Bilirubin AST ALT Alkaline Phosphatase Troponin I Total Protein Albumin Globulin Albumin/Globulin Ratio Lipase Urine Color Urine Appearance (Clear) Urine pH (4.5-7.5) Ur Specific [place] (1.000-1.030) Urine Protein (Negative) Urine Glucose (UA) (Negative) Urine Ketones (Negative) Urine Blood (Negative) Urine Nitrite (Negative) Urine Bilirubin (Negative) Urine Urobilinogen (Negative) Ur Leukocyte Esterase (Negative) Urine RBC (0-4) /hpf Urine WBC (0-5) /hpf Ur Epithelial Cells (0-5) /lpf Urine Bacteria (Negative) 05/16/19 05/16/19 05/17/19 Range/Units 23:25 23:25 00:20 WBC (4.8-10.8) K/uL RBC (4.7-6.1) M/uL Hgb (14.0-18.0) g/dL Hct (42-52) % MCV (80-100) fL MCH (25-34) pg MCHC (32-36) g/dL RDW Std Deviation (36.4-46.3) fL RDW Coeff of [place]ector (11.5-14.5) % Plt Count (130-400) K/uL MPV (7.4-10.4) fL Immature Gran % (Auto) % Neut % (Auto) % Lymph % (Auto) % [place] % (Auto) % Eos % (Auto) % Baso % (Auto) % Immature Gran # (Auto) (0.00-0.02) K/uL Neut # (Auto) (1.4-6.5) K/uL Lymph # (Auto) (1.2-3.4) K/uL [place] # (Auto) (0.11-0.59) K/uL Eos # (Auto) (0-0.5) K/uL Baso # (Auto) (0-0.2) K/uL PT (9.0-12.0) Seconds INR (0.9-1.1) Sodium Cancelled 139 Potassium Cancelled 3.2 L Chloride Cancelled 107 Carbon Dioxide Cancelled 22 Anion Gap Cancelled 11.0 BUN Cancelled 48 H Creatinine Cancelled 2.26 H Est Cr Clr Drug Dosing Cancelled Not Reportable Est GFR ( Amer) Cancelled 32.4 Est GFR (Non-Af Amer) Cancelled 27.9 BUN/Creatinine Ratio Cancelled 21.1 H Glucose Cancelled 127 H Lactate (0.4-2.0) mmol/L Calcium Cancelled 8.3 L Magnesium 2.3 (1.8-2.4) mg/dl Total Bilirubin Cancelled 0.6 AST Cancelled 19 ALT Cancelled 24 Alkaline Phosphatase Cancelled 101 Troponin I Cancelled 0.022 Total Protein Cancelled 6.9 Albumin Cancelled 3.6 Globulin Cancelled 3.3 Albumin/Globulin Ratio Cancelled 1.1 Lipase Cancelled 490 H Urine Color Yellow Urine Appearance Cloudy A (Clear) Urine pH 6.0 (4.5-7.5) Ur Specific [place] 1.020 (1.000-1.030) Urine Protein 2+ H (Negative) Urine Glucose (UA) Negative (Negative) Urine Ketones Negative (Negative) Urine Blood 2+ H (Negative) Urine Nitrite Positive A (Negative) Urine Bilirubin Negative (Negative) Urine Urobilinogen Negative (Negative) Ur Leukocyte Esterase 1+ H (Negative) Urine RBC 5-10 H (0-4) /hpf Urine WBC >30 H (0-5) /hpf Ur Epithelial Cells 0-5 (0-5) /lpf Urine Bacteria 2+ H (Negative) ECG Data Attestation: I personally reviewed and interpreted this ECG as follows: Indication: weakness Rate (beats per minute): 120 Rhythm: atrial fibrillation Findings: + other (RVR); no ST elevation Comparison ECG Date: no prior available Blood Pressure Blood Pressure Findings: Elevated blood pressure Blood Pressure Disposition: further management by hospitalist CARO Narrative Patient is a 73-year-old gentleman with a past medical history including atrial fibrillation on Eliquis, hypertension, and neurogenic bladder secondary to 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 Patient states this evening he got the shakes like he was cold around 630p. At 1030p he can get out of his chair and was very weak saying he had no strength in his legs. Normally caths every 6 hours. Patient had a small follow his urine this morning is concern for possible urinary infection. Chills this evening with rigors and some weakness. Febrile at 38.3F on my exam here. States compliance with home medication. History of UTIs. Slight significant te nderness but no significant abdominal tenderness. No respiratory symptoms reported. Basic labs, lactate, culture obtained as well as EKG. patient is somewhat tachycardic and appears to be in A. fib RVR here. Given dose of metoprolol. Given evening dose of Eliquis which he requires. Permanently in A. fib per car prior cardiology notes. White blood cell count of 7 is not significantly elevated. Anemia is quite mild and near previous values. Chronic kidney dysfunction is present and does not look worsened at this point. Urinalysis obtained shows concerning signs for infection. Based on prior sensitivities given a dose of ceftriaxone. Patient against endorsing generalized weakness difficulty transferring and they do not feel comfortable going home at this point as they do not believe that could get him out of the car. Given additional doses of metoprolol here to try to help with his A. fib RVR which is likely from his underlying infection. Discussed with the hospitalist for further observation and care here in the hospital. Impression & Plan Acute UTI, Atrial fibrillation with rapid ventricular response, Weakness Discharge Plan Visit Data Chief Complaint: Urinary Symptoms Stated Complaint: UTI SYMPTOMS ED Provider: Jeremiah Prado Discharge Problem: Acute UTI, Atrial fibrillation with rapid ventricular response, Weakness Patient Disposition: Being Evaluated by Hospitalist Discharge Instructions Interventions: ED Discharge Assessment Last Done: 05/17/19 03:12 Forms Stand Alone Forms: My [facility] [address] Prescriptions Prescriptions: No Action furosemide [Lasix] 40 mg tablet 40 mg PO QAM RF: 0 atorvastatin [Lipitor] 20 mg tablet 20 mg PO HS RF: 0 metoprolol succinate [Toprol XL] 50 mg tablet extended release 24 hr 50 mg PO QAM RF: 0 amlodipine 5 mg tablet 5 mg PO QAM RF: 0 ferrous sulfate 325 mg (65 mg iron) tablet 325 mg PO DAILY RF: 0 minoxidil 10 mg tablet 10 mg PO QAM RF: 0 multivitamin with minerals tablet 1 tab PO DAILY RF: 0 apixaban [Eliquis] 2.5 mg tablet 2.5 mg PO BID RF: 0 duloxetine [Cymbalta] 30 mg capsule,delayed release(DR/EC) 30 mg PO DAILY Qty: 90 RF: 1 alprazolam 0.25 mg tablet 0.25 mg PO DAILY PRN (Reason: anxiety) Qty: 30 RF: 0 ciclopirox 8 % solution 8 % topical UD RF: 0 tramadol 50 mg tablet 50 mg PO Q6H PRN (Reason: pain) Qty: 14 RF: 0 Referrals Referrals: Merced Alonso PA-C [Primary Care Provider] - The scribe's documentation has been prepared under my direction and personally reviewed by me in its entirety. I confirm that the note above accurately reflects all work, treatment, procedures, and medical decision making performed by me.
[2019-05-17] MEDS ORDERED: POTASSIUM CHLORIDE 20 MEQ TABCR PO STA (01:44)
[2019-05-17] MEDS ORDERED: POTASSIUM CHLORIDE 10 MEQ TABCR PO ONE (01:51)
[2019-05-17 01:53] LABS: Magnesium 2.3 mg/dl (1.8-2.4)
[2019-05-17] MEDS ORDERED: ACETAMINOPHEN 500 MG TAB PO STA (02:05)
--- NOTE | 2019-05-17 02:52 | History & Physical Report ---
Date of Service May 17, 2019 Assessment & Plan (1) Acute UTI: 73-year-old male with history of HTN, HLD, A. fib on Eliquis, AAA, aortic dissection, neurogenic bladder secondary to spinal cord ischemia presents with chills, fever and foul-smelling urine UTI, complicated, neurogenic bladder, patient self catheterizes UA positive for infection, Rocephin 1 g every 24, tailor antibiotics based on culture results Normal saline 80 cc/h Patient was febrile, no flank tenderness leukocytosisobserve for ascending infection A. fib, RVR Continue metoprolol, Eliquis At the time of admission, patient was in the low 100s page if rates go above 115-120 Hypertension/HLD/AAA/status post aortic dissection and repair Continue minoxidil, amlodipine Continue atorvastatin Anxiety/PTSD Continue alprazolam nightly as needed Chronic pain Continue tramadol as needed, duloxetine DVT prophylaxiscontinue home Eliquis Dietheart healthy, saline 80 cc/h CODE STATUSfull (2) Atrial fibrillation with rapid ventricular response: (3) Weakness: (4) Urinary retention: (5) Chronic kidney disease, stage IV (severe): (6) Hyperlipidemia: (7) Hypertension: (8) Neurogenic bladder: (9) PTSD (post-traumatic stress disorder): History of Present Illness Primary Care Provider: Merced Alonso PA-C 73-year-old male with history of HTN, HLD, A. 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 Patient noted that this morning with self-catheterization he noticed foul-smelling cloudy urine. This evening the patient came down with chills, fevers felt very weak. He was unable to stand up and ambulate on his own. Patient self caths 6 times per day. He is been getting normal volumes. Reports past medical history UTI. Allergies Allergy/AdvReac Type Severity Reaction Status Date / Time tetracycline Allergy Unknown HIVES Verified 05/16/19 23:39 Home Medications Home Medications Medication Instructions Recorded Confirmed Type amlodipine 5 mg tablet 5 mg PO QAM 04/06/18 05/16/19 History apixaban 2.5 mg tablet 2.5 mg PO BID 04/06/18 05/16/19 History atorvastatin 20 mg tablet 20 mg PO HS tab 04/06/18 05/16/19 History ferrous sulfate 325 mg (65 mg 325 mg PO DAILY tab 04/06/18 05/16/19 History iron) tablet furosemide 40 mg tablet 40 mg PO QAM 04/06/18 05/16/19 History metoprolol succinate ER 50 mg 50 mg PO QAM 04/06/18 05/16/19 History tablet,extended release 24 hr minoxidil 10 mg tablet 10 mg PO QAM 04/06/18 05/16/19 History multivitamin with minerals tablet 1 tab PO DAILY tab 04/06/18 05/16/19 History tramadol 50 mg PO Q6H PRN #14 tab 05/05/18 05/16/19 Rx duloxetine 30 mg capsule,delayed 30 mg PO DAILY #90 cap 03/26/19 05/16/19 Rx release alprazolam 0.25 mg tablet 0.25 mg PO DAILY PRN #30 tab 04/07/19 05/16/19 Rx ciclopirox 8 % TOPICAL UD 05/16/19 05/16/19 History Past Med/Surg History Medical History Urinary retention Onychomycosis Mitral regurgitation Lumbar radiculopathy Impotence, organic Edema Diarrhea Constipation Chronic rhinitis Chronic kidney disease, stage IV (severe) BPH with obstruction/lower urinary tract symptoms Arthritis Anxiety Adult situational stress disorder Acute on chronic renal insufficiency Atrial fibrillation Hyperlipidemia Hypertension Lumbar spinal stenosis (Chronic) Neurogenic bladder (Chronic) ST CATH EVERY 5 HOURS AND PRN PTSD (post-traumatic stress disorder) POST AORTIC DISSECTION Creatinine elevation Osteoarthritis Sleep apnea CPAP Surgical History History of cardiac catheterization 2003 History of gastric bypass 2010 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 Aortic dissection 2015 REPAIR (ARTIFICIAL)/[place] History of arthroscopy RT KNEE History of cataract surgery RT/LEFT History of colonoscopy History of esophagogastroduodenoscopy (EGD) History of open reduction and internal fixation (ORIF) procedure RT WRIST History of rhinoplasty History of tooth extraction History of total hip arthroplasty RT History of total knee replacement RT Nausea and vomiting after administration of anesthetic agent Family History Grandmother Family history of diabetes mellitus Mother Gallbladder disease Father Hypertension Prostate cancer Myocardial infarction Other Family history non-contributory Social History Preferred Language: [place] Communication Ability: Effective Calender Supervisor Required: No Beliefs That Will Affect Care: None Current Living Situation: Alone Feels Safe at Home: Yes Safety Concerns: Feels Safe At This Time Smoking Status: Never smoker Second Hand Exposure: No ; Hx Alcohol Use: No Hx Substance Use: No Review of Systems Constitutional: + fever, + chills, + sweats, + fatigue and + weakness Ear, Nose, Mouth, Throat: no ear pain, no nasal discharge and no sore throat Respiratory: no cough, no chest congestion, no dyspnea and no wheezing Cardiovascular: no chest pain, no dyspnea, no palpitations and no edema Gastrointestinal: no abdominal pain, no nausea, no vomiting and no diarrhea/loose stools Genitourinary: no flank pain Musculoskeletal: no back pain Integumentary: no rash Physical Exam Constitutional: WD/WN, vitals as above Eyes: PERRL, conjunctivae normal, anicteric sclerae ENMT: external ear and nose normal, oropharynx normal Neck: trachea midline, no thyromegaly Respiratory: normal respiratory effort, lungs clear to auscultation Cardiovascular: RRR, no murmur, no edema Gastrointestinal (Abdomen): normal bowel sounds, soft, nontender, no hepatosplenomegaly Musculoskeletal: no cyanosis or clubbing, extremities motor strength 5/5 Skin: no rashes, warm and dry Neurologic: PERRL, EOMI, accommodation nl, no face palsy, no dysarthria Psychiatric: A+Ox3, euthymic affect Results & Data Vital Signs (Past 12 Hours) Vital Signs Temp Pulse Pulse Resp BP BP Pulse Ox 05/17/19 02:20 106 H 20 104/72 96 05/17/19 01:53 114 H 20 112/72 95 05/17/19 01:20 102 H 20 121/83 94 05/17/19 00:40 97 H 18 131/82 97 05/17/19 00:17 106 H 20 148/91 H 96 05/16/19 23:10 36.9 C 115 H 18 152/88 H 97 Code Status & VTE Plan Code Status Full code VTE Prophylaxis Plan VTE Prophylaxis will be ordered: Yes Supervising Physician Co-Signing Physician Notes Attending addendum: I have physically seen this patient, have supervised the medical residents activities, and agree with the H&P unless as otherwise noted. Assessment and Plan: Urinary tract infection/presumptive prostatitis/neurogenic bladder with patient self-catheterization every 5 hours. Follow urine culture and sensitivity. Ceftriaxone 1 g IV every 24 hours. Atrial fibrillation with RVR/hypertension/status post aortic dissection and repair- Continue metoprolol, Eliquis,, minoxidil and amlodipine. Optimize potassium with oral supplementation. Hyperlipidemia- Continue atorvastatin. Check a fasting lipid panel and hemoglobin A1c. Remainder of orders and notations as noted. PG Care Time/CCT Total # of Minutes Spent Total Time Spent with Patient: Total time spent is greater than 50% in coordination of care (as documented) at patient's floor/unit and/or counseling patient: Resident Activity Tracking Resident Involvement: Resident Care Provided Care Provided: Adult Hospital Medicine (1) Hypertension Hypertension type: essential hypertension Qualified Code(s): I10 - Essential (primary) hypertension
[2019-05-17] MEDS ORDERED: POLYETHYLENE (MIRALAX) 17 GM PACK PO PRN (03:36)
[2019-05-17] MEDS ORDERED: ACETAMINOPHEN 325 MG TAB PO PRN (03:36)
[2019-05-17] MEDS ORDERED: SODIUM CHLORIDE 0.9% 1000ML 1,000 ML IV SCH (03:36)
[2019-05-17] MEDS ORDERED: TRAMADOL HCL 50 MG TABLET PO PRN (03:36)
[2019-05-17] MEDS: ALPRAZolam 0.25 MG TABLET PO PRN ×2 (04:02→23:29)
[2019-05-17 07:30] LABS: Hematocrit (blood only) 30.3 % (42-52); Hemoglobin 10.2 g/dL (14.0-18.0); Mean Corpuscular Hemoglobin 30.9 pg (25-34); Mean Corpuscular Hgb Conc 33.7 g/dL (32-36); Mean Corpuscular Volume 91.8 fL (80-100); Mean Platelet Volume 8.3 fL (7.4-10.4); Platelet Count 158 K/uL (130-400); RDW Standard Deviation 47.1 fL (36.4-46.3); White Blood Count 11.09 K/uL (4.8-10.8)
[2019-05-17] MEDS: MINOXIDIL 2.5 MG TAB PO SCH (07:48)
[2019-05-17] MEDS: AMLODIPINE BESYLATE 5 MG TAB PO SCH (07:48)
[2019-05-17] MEDS: METOPROLOL SUCC 50MG EXT REL TAB PO SCH (07:48)
[2019-05-17] MEDS: APIXABAN 2.5 MG TAB PO SCH ×2 (07:49→21:37)
[2019-05-17] MEDS: DULOXETINE HCL 30 MG CAP PO SCH (07:49)
[2019-05-17] MEDS: FUROSEMIDE 40 MG TAB PO SCH (07:49)
[2019-05-17 07:50] LABS: Basophils # (auto) 0.01 K/uL (0-0.2); Basophils % (auto) 0.1 %; Echinocytes 1+; Eosinophils # (auto) 0.01 K/uL (0-0.5); Eosinophils % (auto) 0.1 %; Immature Granulocytes # (auto) 0.03 K/uL (0.00-0.02); Immature Granulocytes % (auto) 0.3 %; Lymphocytes # (auto) 0.65 K/uL (1.2-3.4); Lymphocytes % (auto) 5.9 %; Monocytes % (auto) 11.7 %; Neutrophils # (auto) 9.09 K/uL (1.4-6.5); Neutrophils % (auto) 81.9 %
[2019-05-17 08:06] LABS: BUN Creatinine Ratio 19.9 (10-20); Calcium 7.7 mg/dl (8.5-10.1); Creatinine Clr Calc Pharmacy 34.7 ml/min; Est GFR (African American) 29.4; Est GFR (Non-African American) 25.3; Potassium 3.4 mmol/L (3.5-5.1)
[2019-05-17] MEDS ORDERED: MINOXIDIL 10 MG TAB PO SCH (09:00)
--- NOTE | 2019-05-17 14:21 | Family Medicine Progress Note ---
Date of Service May 17, 2019 Assessment & Plan (1) Acute UTI: 73-year-old male with history of HTN, HLD, A. fib on Eliquis, AAA, aortic dissection, neurogenic bladder secondary to spinal cord ischemia presents with chills, fever and foul-smelling urine UTI, complicated, neurogenic bladder, patient self catheterizes UA positive for infection, Rocephin 1 g every 24, will adjust antibiotics based on culture results Blood cultures appear to be growing gram negative bacilli, awaiting culture and sensitivities on urine and blood. Patient was afebrile, highest temp 37.8 no flank tenderness leukocytosisobserve for ascending infection A. fib, RVR Continue metoprolol, Eliquis Heart rates in 60's today Hypertension/HLD/AAA/status post aortic dissection and repair Continue minoxidil, amlodipine Continue atorvastatin Anxiety/PTSD Continue alprazolam nightly as needed Chronic pain Continue tramadol as needed, duloxetine DVT prophylaxiscontinue home Eliquis Dietheart healthy, tolerating PO well, will discontinue IV fluids CODE STATUSfull (2) Atrial fibrillation with rapid ventricular response: (3) Weakness: (4) Urinary retention: (5) Chronic kidney disease, stage IV (severe): (6) Hyperlipidemia: (7) Hypertension: (8) Neurogenic bladder: (9) PTSD (post-traumatic stress disorder): Supervising Physician Co-Signing Physician Notes Resident Physician Supervision Note: I independently interviewed and examined the patient and verified the wellington history and physical, reviewed labs and image studies, discussed the case with the resident Dr. Hyatt and agree with the findings and care plan. Subjective Mr. Escobedo is doing well today, feeling much better than he did previously. He tells me his legs are stronger and he is ambulating well. He feels exhausted from not sleeping much last night. Review of Systems Review of Systems: All systems reviewed & are unremarkable except as noted in HPI & below Physical Exam Constitutional: WD/WN, vitals as above Eyes: PERRL, conjunctivae normal, anicteric sclerae ENMT: external ear and nose normal, oropharynx normal Neck: trachea midline, no thyromegaly Respiratory: normal respiratory effort, lungs clear to auscultation Cardiovascular: Rate/Rhythm: regular rate; + abnormal rhythm Heart Sounds: normal S1 and normal S2; no click, no gallop, no murmur and no cardiac rub Gastrointestinal (Abdomen): normal bowel sounds, soft, nontender, no hepatosplenomegaly Musculoskeletal: no cyanosis or clubbing, extremities motor strength 5/5 Skin: no rashes, warm and dry Neurologic: PERRL, EOMI, accommodation nl, no face palsy, no dysarthria Psychiatric: A+Ox3, euthymic affect Results & Data Vital Signs (Past 12 Hours) Vital Signs Temp Pulse Pulse Resp BP Pulse Ox 05/17/19 11:06 36.6 C 65 19 109/62 97 05/17/19 07:19 36.6 C 73 102/65 97 05/17/19 04:03 74 16 97 05/17/19 03:15 37.8 C H 101 H 18 107/65 95 05/17/19 03:05 37.3 C 108 H 20 108/67 96 05/17/19 02:20 106 H 20 104/72 96 PG Care Time/CCT Total # of Minutes Spent Total Time Spent with Patient: Total time spent is greater than 50% in coordination of care (as documented) at patient's floor/unit and/or counseling patient: Resident Activity Tracking Resident Involvement: Resident Care Provided Care Provided: Adult Hospital Medicine (1) Hypertension Hypertension type: essential hypertension Qualified Code(s): I10 - Essential (primary) hypertension
[2019-05-17] MEDS: ATORVASTATIN 20 MG TAB PO SCH (21:37)
[2019-05-18] MEDS: cefTRIAXone SODIUM 2,000 MG in DEXTROSE 5% 50 ML IV SCH (00:09)
[2019-05-18 07:31] LABS: Basophils # (auto) 0.04 K/uL (0-0.2); Basophils % (auto) 0.6 %; Eosinophils # (auto) 0.27 K/uL (0-0.5); Eosinophils % (auto) 3.9 %; Hematocrit (blood only) 30.8 % (42-52); Hemoglobin 10.2 g/dL (14.0-18.0); Immature Granulocytes # (auto) 0.01 K/uL (0.00-0.02); Immature Granulocytes % (auto) 0.1 %; Lymphocytes # (auto) 0.94 K/uL (1.2-3.4); Lymphocytes % (auto) 13.5 %; Mean Corpuscular Hemoglobin 30.6 pg (25-34); Mean Corpuscular Hgb Conc 33.1 g/dL (32-36); Mean Corpuscular Volume 92.5 fL (80-100); Mean Platelet Volume 8.6 fL (7.4-10.4); Monocytes # (auto) 1.09 K/uL (0.11-0.59); Monocytes % (auto) 15.7 %; Neutrophils % (auto) 66.2 %; Platelet Count 174 K/uL (130-400); RDW Coefficient of Variation 14.2 % (11.5-14.5); RDW Standard Deviation 48.2 fL (36.4-46.3); Red Blood Count 3.33 M/uL (4.7-6.1); White Blood Count 6.95 K/uL (4.8-10.8)
[2019-05-18] MEDS: MINOXIDIL 2.5 MG TAB PO SCH (07:51)
[2019-05-18] MEDS: DULOXETINE HCL 30 MG CAP PO SCH (07:51)
[2019-05-18] MEDS: AMLODIPINE BESYLATE 5 MG TAB PO SCH (07:52)
[2019-05-18] MEDS: FUROSEMIDE 40 MG TAB PO SCH (07:52)
[2019-05-18] MEDS: APIXABAN 2.5 MG TAB PO SCH ×2 (07:52→20:18)
[2019-05-18] MEDS: METOPROLOL SUCC 50MG EXT REL TAB PO SCH (07:53)
[2019-05-18 07:57] LABS: BUN Creatinine Ratio 20.3 (10-20); Calcium 8.1 mg/dl (8.5-10.1); Creatinine Clr Calc Pharmacy 32.9 ml/min; Est GFR (African American) 27.6; Est GFR (Non-African American) 23.8; Potassium 3.4 mmol/L (3.5-5.1)
[2019-05-18] MEDS: POTASSIUM CHLORIDE 20 MEQ TABCR PO SCH (08:53)
--- NOTE | 2019-05-18 18:56 | Family Medicine Progress Note ---
Date of Service May 18, 2019 Assessment & Plan (1) Acute UTI: 73-year-old male with history of HTN, HLD, A. 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 fib, RVR Continue metoprolol, Eliquis Heart rates well controlled since admission Will step down to med/surg Hypertension/HLD/AAA/status post aortic dissection and repair Continue minoxidil, amlodipine Continue atorvastatin Anxiety/PTSD Continue alprazolam nightly as needed Chronic pain Continue tramadol as needed, duloxetine DVT prophylaxiscontinue home Eliquis Dietheart healthy, tolerating PO well Dispo: Med/Surg CODE STATUSfull (2) Atrial fibrillation with rapid ventricular response: (3) Weakness: (4) Urinary retention: (5) Chronic kidney disease, stage IV (severe): (6) Hyperlipidemia: (7) Hypertension: (8) Neurogenic bladder: (9) PTSD (post-traumatic stress disorder): Supervising Physician Co-Signing Physician Notes Resident Physician Supervision Note: I independently interviewed and examined the patient and verified the wellington history and physical, reviewed labs and image studies, discussed the case with the resident Dr. Hyatt and agree with the findings and care plan. Subjective Mr. Escobedo is back to feeling in his usual state of health. He denies any fevers chills, or weakness. He is ambulating well, no concerns at this time, but anxious to get home. Review of Systems Review of Systems: All systems reviewed & are unremarkable except as noted in HPI & below Physical Exam Constitutional: WD/WN, vitals as above Eyes: PERRL, conjunctivae normal, anicteric sclerae ENMT: external ear and nose normal, oropharynx normal Neck: trachea midline, no thyromegaly Respiratory: normal respiratory effort, lungs clear to auscultation Cardiovascular: Rate/Rhythm: regular rate; + abnormal rhythm Heart Sounds: normal S1 and normal S2; no click, no gallop, no murmur and no cardiac rub Gastrointestinal (Abdomen): normal bowel sounds, soft, nontender, no hepatosplenomegaly Musculoskeletal: no cyanosis or clubbing, extremities motor strength 5/5 Skin: no rashes, warm and dry Neurologic: PERRL, EOMI, accommodation nl, no face palsy, no dysarthria Psychiatric: A+Ox3, euthymic affect Results & Data Vital Signs (Past 12 Hours) Vital Signs Temp Pulse Resp BP Pulse Ox 05/18/19 15:36 37.0 C 89 18 118/69 97 05/18/19 11:41 36.9 C 54 L 20 135/78 95 05/18/19 07:34 36.5 C 75 18 130/82 99 PG Care Time/CCT Total # of Minutes Spent Total Time Spent with Patient: Total time spent is greater than 50% in coordination of care (as documented) at patient's floor/unit and/or counseling patient: Resident Activity Tracking Resident Involvement: Resident Care Provided Care Provided: Adult Hospital Medicine (1) Hypertension Hypertension type: essential hypertension Qualified Code(s): I10 - Essential (primary) hypertension
[2019-05-18] MEDS: ATORVASTATIN 20 MG TAB PO SCH (20:18)
[2019-05-19] MEDS: cefTRIAXone SODIUM 2,000 MG in DEXTROSE 5% 50 ML IV SCH (00:11)
[2019-05-19 07:20] VITALS: BP 115/78; TEMP 96.8; O2SAT 98
[2019-05-19 07:41] LABS: Basophils # (auto) 0.04 K/uL (0-0.2); Basophils % (auto) 0.9 %; Eosinophils # (auto) 0.28 K/uL (0-0.5); Hematocrit (blood only) 31.2 % (42-52); Hemoglobin 10.4 g/dL (14.0-18.0); Immature Granulocytes # (auto) 0.01 K/uL (0.00-0.02); Immature Granulocytes % (auto) 0.2 %; Lymphocytes % (auto) 21.4 %; Mean Corpuscular Hemoglobin 30.6 pg (25-34); Mean Corpuscular Hgb Conc 33.3 g/dL (32-36); Mean Corpuscular Volume 91.8 fL (80-100); Mean Platelet Volume 8.5 fL (7.4-10.4); Monocytes # (auto) 0.56 K/uL (0.11-0.59); Neutrophils # (auto) 2.78 K/uL (1.4-6.5); Neutrophils % (auto) 59.5 %; Platelet Count 193 K/uL (130-400); RDW Coefficient of Variation 13.7 % (11.5-14.5); White Blood Count 4.67 K/uL (4.8-10.8)
[2019-05-19 08:07] LABS: BUN Creatinine Ratio 18.7 (10-20); Calcium 8.1 mg/dl (8.5-10.1); Creatinine Clr Calc Pharmacy 31.1 ml/min; Est GFR (African American) 25.8; Est GFR (Non-African American) 22.2; Potassium 3.5 mmol/L (3.5-5.1)
[2019-05-19] MEDS: APIXABAN 2.5 MG TAB PO SCH (08:39)
[2019-05-19] MEDS: METOPROLOL SUCC 50MG EXT REL TAB PO SCH (08:39)
[2019-05-19] MEDS: DULOXETINE HCL 30 MG CAP PO SCH (08:40)
[2019-05-19] MEDS: FUROSEMIDE 40 MG TAB PO SCH (08:40)
[2019-05-19] MEDS: POTASSIUM CHLORIDE 20 MEQ TABCR PO SCH (08:40)
[2019-05-19] MEDS: AMLODIPINE BESYLATE 5 MG TAB PO SCH (08:40)
[2019-05-19] MEDS: MINOXIDIL 2.5 MG TAB PO SCH (08:41)
[2019-05-19] MEDS ORDERED: cephALEXin 500 MG CAP PO SCH (09:00)
[2019-05-19 11:20] VITALS: PULSE 63
--- NOTE | 2019-05-19 21:32 | Discharge Summary ---
Date of Service May 19, 2019 Admission HPI Per Admitting Provider 73-year-old male with history of HTN, HLD, A. 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 Patient noted that this morning with self-catheterization he noticed foul-smelling cloudy urine. This evening the patient came down with chills, fevers felt very weak. He was unable to stand up and ambulate on his own. Patient self caths 6 times per day. He is been getting normal volumes. Reports past medical history UTI. Admission Exam Per Admitting Provider Constitutional: WD/WN, vitals as above Eyes: PERRL, conjunctivae normal, anicteric sclerae ENMT: external ear and nose normal, oropharynx normal Neck: trachea midline, no thyromegaly Respiratory: normal respiratory effort, lungs clear to auscultation Cardiovascular: RRR, no murmur, no edema Gastrointestinal (Abdomen): normal bowel sounds, soft, nontender, no hepatos plenomegaly Musculoskeletal: no cyanosis or clubbing, extremities motor strength 5/5 Skin: no rashes, warm and dry Neurologic: PERRL, EOMI, accommodation nl, no face palsy, no dysarthria Psychiatric: A+Ox3, euthymic affect Principal Diagnosis E. Coli bacteremia/urosepsis Discharge Exam Constitutional WD/WN, vitals as above Eyes PERRL, conjunctivae normal, anicteric sclerae ENMT external ear and nose normal, oropharynx normal Neck trachea midline, no thyromegaly Respiratory normal respiratory effort, lungs clear to auscultation Cardiovascular Rate/Rhythm: regular rate; + abnormal rhythm Heart Sounds: normal S1 and normal S2; no click, no gallop, no murmur and no cardiac rub Gastrointestinal (Abdomen) normal bowel sounds, soft, nontender, no hepatosplenomegaly Musculoskeletal no cyanosis or clubbing, extremities motor strength 5/5 Skin no rashes, warm and dry Neurologic PERRL, EOMI, accommodation nl, no face palsy, no dysarthria Psychiatric A+Ox3, euthymic affect Discharge Data Allergies Allergy/AdvReac Type Severity Reaction Status Date / Time tetracycline Allergy Unknown HIVES Verified 05/16/19 23:39 Consultations 05/17/19 01:32 ED Decision to Admit Stat 05/17/19 03:36 Consult Case Management - Discharge Planning Routine Hospital Course (1) Acute UTI: 73-year-old male with history of HTN, HLD, A. 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 Coli Patient remained afebrile and hemodynamically stable throughout Transitioned to keflex for ten days outpatient last day 05/30/19 Patient is no longer symptomatic Chronic Renal Disease 4 Recommend rechecking BMP at outpatient follow up because creatinine elevated throughout stay from 2.3 (about baseline for patient) to 2.7 A. fib, RVR Continue metoprolol, Eliquis Heart rates well controlled throughout admission Hypertension/HLD/AAA/status post aortic dissection and repair Continue minoxidil, amlodipine Continue atorvastatin Anxiety/PTSD Continue alprazolam nightly as needed Chronic pain Continue tramadol as needed, duloxetine (2) Atrial fibrillation with rapid ventricular response: (3) Weakness: (4) Urinary retention: (5) Chronic kidney disease, stage IV (severe): (6) Hyperlipidemia: (7) Hypertension: (8) Neurogenic bladder: (9) PTSD (post-traumatic stress disorder): Total Time Total Time Spent Total Time Spent (In Minutes): See Attending attestation Discharge Plan Discharge Items Patient Disposition: Home - Self-Care Reason For Visit: AFIB RVR, UTI Discharge Diagnosis: Complicated UTI, E. Coli bacteremia urosepsis Activity: Resume your previous activity Non-emergency contact: Primary Care Provider and Urologist Call non-emergency contact if: you have any medication questions and your sy mptoms worsen Follow-up/Referrals: Merced Alonso PA-C [Primary Care Provider] - Diet: Regular and Heart Healthy Addtl Attending Provider Instructions: Mr. Escboedo it was our pleasure to treat you here for your urinary tract infection. We found that you had an E. Coli infection in your urine that had gotten into your bloodstream that appears to have caused all your symptoms. After treating you here with IV antibiotics for two days you seem to be doing much better and close to your baseline. We have transitioned you to oral antibiotics keflex 500 mg twice a day to be taken for ten more days. If you have a return of fever weakness, or altered mental status or anything else you find concerning, please return to medical care. Follow up with your primary care provider within the next week for follow up. Pending Studies at Discharge: No Stand-Alone Forms: My [facility], Smoking Cessation Medications and DC Order Prescriptions: New cephalexin 500 mg Capsule 500 mg PO BID 10 Days Qty: 20 RF: 0 Continued furosemide [Lasix] 40 mg tablet 40 mg PO QAM RF: 0 atorvastatin [Lipitor] 20 mg tablet 20 mg PO HS RF: 0 metoprolol succinate [Toprol XL] 50 mg tablet extended release 24 hr 50 mg PO QAM RF: 0 amlodipine 5 mg tablet 5 mg PO QAM RF: 0 ferrous sulfate 325 mg (65 mg iron) tablet 325 mg PO DAILY RF: 0 minoxidil 10 mg tablet 10 mg PO QAM RF: 0 multivitamin with minerals tablet 1 tab PO DAILY RF: 0 apixaban [Eliquis] 2.5 mg tablet 2.5 mg PO BID RF: 0 duloxetine [Cymbalta] 30 mg capsule,delayed release(DR/EC) 30 mg PO DAILY Qty: 90 RF: 1 alprazolam 0.25 mg tablet 0.25 mg PO DAILY PRN (Reason: anxiety) Qty: 30 RF: 0 azelastine 0.15 % (205.5 mcg) spray,non-aerosol 1 sprays INTNAS HS Qty: 30 RF: 2 ciclopirox 8 % solution 8 % topical UD RF: 0 tramadol 50 mg tablet 50 mg PO Q6H PRN (Reason: pain) Qty: 14 RF: 0 Discharge Orders: Discharge Order (Routine); Ordered 05/19/19 Ordered By: Prashant Hyatt Admission Data Admit Date/Time: 05/17/19 02:32 Attending Provider: Shari Zee Admit Provider: Zain oPnce Primary Care Provider: Merced Alonso Other Providers: Jaden Hay Other Interventions: Discharge Summary Assessment (RN) Last Done: 05/19/19 11:15 DC Date/Time DO NOT enter until pt leaves facility: 05/19/19 12:28 Supervising Physician Co-Signing Physician Notes Resident Physician Supervision Note: I independently interviewed and examined the patient and verified the wellington history and physical, reviewed labs and image studies, discussed the case with the resident Dr. Hyatt and agree with the findings and care plan. Resident Activity Tracking Resident Involvement: Resident Care Provided Care Provided: Adult [facility] Medicine
== END 2019-05-19 12:28 | disposition home or self-care (01) | DRG 699 ==
LOC: ED 23:05 → SUATTDRO 05-17 02:32 → 2S 05-17 02:32 → 4W 05-18 16:48
DX: N18.4 Chronic kidney disease, stage 4 (severe); I34.0 Nonrheumatic mitral (valve) insufficiency; G95.89 Other specified diseases of spinal cord; I48.21 Permanent atrial fibrillation; I12.9 Hypertensive chronic kidney disease with stage 1 through stage 4 chronic kidney disease, or unspecified chronic kidney disease; Z96.641 Presence of right artificial hip joint; Z98.84 Bariatric surgery status; Z79.01 Long term (current) use of anticoagulants; T83.518A Infection and inflammatory reaction due to other urinary catheter, initial encounter; Y92.009 Unspecified place in unspecified non-institutional (private) residence as the place of occurrence of the external cause; R33.9 Retention of urine, unspecified; N41.9 Inflammatory disease of prostate, unspecified; Z88.1 Allergy status to other antibiotic agents; M48.061 Spinal stenosis, lumbar region without neurogenic claudication; F43.10 Post-traumatic stress disorder, unspecified; Z82.49 Family history of ischemic heart disease and other diseases of the circulatory system; Z96.651 Presence of right artificial knee joint; Y84.6 Urinary catheterization as the cause of abnormal reaction of the patient, or of later complication, without mention of misadventure at the time of the procedure; N40.1 Benign prostatic hyperplasia with lower urinary tract symptoms; N39.0 Urinary tract infection, site not specified; Z83.3 Family history of diabetes mellitus

== ENCOUNTER 2020-01-13 09:21 | Inpatient (IN) ==
--- NOTE | 2019-12-22 16:36 | History & Physical Report ---
Date of Service December 22, 2019 Assessment & Plan (1) Osteoarthritis of left hip: Plan: Patient is scheduled to undergo this procedure with Dr. Cuong Rinaldi at the [facility] as an inpatient on January 13, 2020. Risks and complications of the procedure such as: Infection, bleeding, pain, scarring, nerve blood vessel damage, weakness, wound problems, stiffness, incomplete relief of symptoms, hardware failure, hardware loosening, wear, fracture, tendon or ligament injury, dislocation, leg length inequality, blood clots, embolism, heart attack, stroke and were explained to the patient at his visit today by Dr. Rinaldi. Informed consent to perform the procedure was obtained. Patient also understands the risks of undergoing a procedure during the COVID-19 pandemic. Currently patient is asymptomatic and he will be tested for COVID-19 prior to the procedure. Patient is seen his primary care provider Dr. Pineda and was cleared for surgery. He has his cardiac clearance scheduled with Dr. Jarvis on January 05. We obtained an EKG in the clinic this afternoon. Patient is already had an up-to-date CBC with differential complete metabolic panel urine culture and sensitivity. During today's visit I placed an order for PT/INR, blood type and screen, urinalysis, hemoglobin A1c and a nasal culture for MRSA. Patient states he will proceed to the lab on [address] and obtain the necessary tests. Patient states that he has a walker at home that he will bring with him on the day of his procedure. He also has a hip kit from his right total hip arthroplasty. He understands that he will need antibiotics prior to dental procedures. We discussed discharge planning and he plans to be discharged home with in-home therapy. During today's visit we reviewed total hip precautions and advised him that we will provide him with prescriptions for pain relieving agents upon discharge from the hospital. We will have the patient resume his Eliquis for DVT prophylaxis. Patient is scheduled for his 2-week postoperative follow-up with myself on January 28, 2020 at 1330. Patient verbalized understanding of all information provided during today's visit, thanks for the care he received, and states if he has questions or concerns prior to his procedure today, he will contact clinic. History of Present Illness Chief Complaint: Left Hip Pain Primary Care Provider: Jasiel Pineda DO PRE-OP Diagnosis: Left Hip Osteoarthritis Planned Procedure: Left Total Hip Arthroplasty Chief Complaint: Left hip pain History of Present Illness (including history relevant to procedure): This 74-year-old male presents the clinic today for his preoperative history and physical. Patient is a longstanding history of persistent left hip pain that he first noticed back in early 2014. States that he is done physical therapy, received steroid injections, tried topical emollients, oral nonsteroidal and pain relieving agents, with no alleviation. Patient states the pain is become increasingly worse over the past year causing him to have an antalgic gait, and requires use of crutches for ambulation. Patient feels that this is affecting his activities of daily living and is ready to proceed with surgical intervention. Past Medical History: Problems: Preop examination Osteoarthritis of left hip Chronic gluteal pain History of lumbar spinal fusion Lumbar spinal stenosis Synovial cyst of lumbar facet joint Right leg pain Bilateral iliac artery aneurysm AAA (abdominal aortic aneurysm) Fingernail problem Thoracic aortic dissection CHF Hypertension Hyperlipidemia Atrial Fibrillation Sleep Apnea (CPAP use) Neurogenic Bladder (Straight Cath's) Procedure History Procedure Procedure Date Comments Post-surgery back pain 03/05/2019 Shave biopsy and cauterization of skin 10/15/2018 - Left lower back Cataract extraction and insertion of intraocular lens- bi-lat 2018 TURP - Transurethral resection of prostate 2016 Repair of type A aortic dissection 2015 Partial Fusion- right wrist 2013 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 2009 Prosthetic arthroplasty of right hip 2007 Cardiac catheterisation- no stents 2003 Social History: Completely negative Family History: Hypertension, Peripheral Artery Disease, Cancer Allergies and Sensitivities: morphine(Nausea) morphine(Vomiting) tetracycline(Hives) Current Home Meds: (Last Updated 12/21 11:15) (ALPRAZolam 0.25 mg oral tablet) 0.25 mg PO PRN: as needed for anxiety(Cymbalta 30 mg oral delayed release capsule) 30 mg PO Daily(acetaminophen 500 mg oral tablet) 1,000 mg PO q8h(amLODIPine 5 mg oral tablet) 5 mg PO Daily(apixaban 2.5 mg oral tablet) 2.5 mg PO bid(atorvastatin 20 mg oral tablet) 20 mg PO Dailynasal (azelastine 205.5 mcg/inh (0.15%) nasal spray) PLACE 1 SPRAY INTO EACH NOSTRIL AT BEDTIMEvitamin D (calcium with vitamin D 500 mg) 1 tab PO bid(cholecalciferol 1000 intl units oral tablet) 5,000 Int_Unit PO Dailytopical ([place] Nail Lacquer 8% topical solution) 1 appl topical Daily apply to right toenailssulfate (ferrous sulfate 325 mg (65 mg elemental iron) oral delayed release tablet) 325 mg PO Daily(Diflucan 150 mg oral tablet) 150 mg PO ONCE Repeat 1 tab PO once weekly for 4 weeks(furosemide 40 mg oral tablet) 40 mg PO Daily(Toprol-XL 50 mg oral tablet, extended release) 50 mg PO Daily(minoxidil 10 mg oral tablet) 10 mg PO Dailywith minerals (Centrum Silver oral tablet) 1 tab PO Daily(oxyCODONE 5 mg oral capsule) 5 mg PO q6h PRN: as needed for pain(Ultram 50 mg oral tablet) 50 mg PO q12h PRN: as needed for pain 400 mg max Allergies Allergy/AdvReac Type Severity Reaction Status Date / Time tetracycline Allergy Unknown HIVES Verified 12/13/19 14:38 Home Medications Home Medications Medication Instructions Recorded Confirmed Type amlodipine 5 mg tablet 5 mg PO QAM 04/06/18 12/13/19 History ferrous sulfate 325 mg (65 mg 325 mg PO DAILY tab 04/06/18 12/13/19 History iron) tablet furosemide 40 mg tablet 40 mg PO QAM 04/06/18 12/13/19 History metoprolol succinate 50 mg 50 mg PO QAM 04/06/18 12/13/19 History tablet,extended release 24 hr minoxidil 10 mg tablet 10 mg PO QAM 04/06/18 12/13/19 History multivitamin with minerals 1 tab PO DAILY tab 04/06/18 12/13/19 History tramadol 50 mg PO Q6H PRN #14 tab 05/05/18 12/13/19 Rx azelastine 0.15 % (205.5 mcg) 1 sprays INTNAS HS #30 ml 05/18/19 12/13/19 Rx nasal spray duloxetine 30 mg capsule,delayed 30 mg PO DAILY cap 10/11/19 12/13/19 History release methenamine hippurate 1 gram tablet 1 gm PO DAILY tab 10/11/19 12/13/19 History alprazolam 0.25 mg tablet 0.25 mg PO DAILY PRN #30 tab 10/12/19 12/13/19 Rx apixaban 2.5 mg tablet 2.5 mg PO BID #180 tab 11/25/19 12/13/19 Rx atorvastatin 20 mg tablet See Rx Instructions .ROUTE 12/13/19 Rx .COMPLEX #90 tablet Past Med/Surg History Medical History Acute on chronic renal insufficiency (Resolved) Adult situational stress disorder Anxiety Arthritis Atrial fibrillation Followed by Cardiology BPH with obstruction/lower urinary tract symptoms Followed by Urology Chronic kidney disease, stage IV (severe) Followed by Nephrology Chronic rhinitis Constipation Fusion of lumbar spine Hyperlipidemia Hypertension Impotence, organic Lumbar radiculopathy Lumbar spinal stenosis (Chronic) Mitral regurgitation Neurogenic bladder (Chronic) Self Catheterization since Aortic repair. Osteoarthritis PTSD (post-traumatic stress disorder) POST AORTIC DISSECTION Sleep apnea CPAP Urinary retention Surgical History Aortic dissection 2015 REPAIR (ARTIFICIAL)/[place] History of arthroscopy RT KNEE History of cardiac catheterization 2003 History of cataract surgery RT/LEFT History of colonoscopy History of esophagogastroduodenoscopy (EGD) History of gastric bypass 2010 History of open reduction and internal fixation (ORIF) procedure RT WRIST 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 History of rhinoplasty History of tooth extraction History of total hip arthroplasty RT History of total knee replacement RT Nausea and vomiting after administration of anesthetic agent Family History Grandmother Family history of diabetes mellitus Mother Gallbladder disease Father Hypertension Prostate cancer Myocardial infarction Other Family history non-contributory Denies family history of Ovarian cancer Breast cancer Social History Preferred Language: Macedonian Communication Ability: Effective Visual Impairment: Diminished Hearing Ability: Normal 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 Beliefs That Will Affect Care: None marital status: Current Living Situation: Spouse current occupational status: retired Feels Safe at Home: Yes Smoking Status: Never smoker Second Hand Exposure: No ; Hx Alcohol Use: No Hx Substance Use: No Childhood Exposure to Second-Hand Smoke: Yes caffeine: Yes Dental Care, Regularly: Yes Physical Activity Frequency: Does not Exercise Physical Activity Frequency Comment: due to back issue Seatbelt Use: always Sunscreen Use: Yes Review of Systems All systems reviewed & are unremarkable except as noted in HPI & below Physical Exam Physical Exam: Physical Exam: (relevant to the procedure, including heart and lung evaluation) General: Alert and oriented x3 with proper grooming and hygiene Eyes: Pupils are equal and reactive to light with accommodation. Extraocular movements are intact Throat: Posterior oropharynx is clear with absence of edema, erythema or exudate Cardiac: Irregularly irregular rate and rhythm with no murmurs or gallops appreciated Lungs: Clear to auscultation with no wheezing, rales or rhonchi Abdomen: Slightly obese, nondistended, nontender with normal active bowel sounds Extremities: Left Hip; patient has mild tenderness over the trochanteric bursa to palpation. His range of motion is limited to flexion at 100 degrees, external rotation at 45 degrees, internal rotation of 5 degrees. Movements refer groin pain in addition to the lateral-sided hip pain. Lyle's test is equivocal. Positive Stinchfield test. NV intact in Left LE. Neuro: Cranial nerves II through XII are intact with no motor or sensory deficit Skin: Normal in appearance with no open skin areas or discharge Results & Data Diagnostic Findings Studies (relevant to the procedure): MRI that was done on December 09, 2019, is reviewed. This shows severe degenerative changes of the left hip with bone marrow edema within the femoral head and acetabulum. There is a moderate effusion. Degenerative changes are noted in the labrum.
--- NOTE | 2020-01-01 21:08 | Anesthesiology Consultation ---
Date of Service January 01, 2020 Assessment & Plan (1) Encounter for pre-operative examination: Per nursing phone assessment on 12/30: Travel screen negative. No known COVID-19 positive contacts. No current COVID-19 related symptoms. No hx of COVID-19 testing. - Cardiology office visit: 12/29/19: "ast medical history significant for atrial fibrillation, hypertension, distal aortic aneurysmal disease, type A aortic dissection s/p repair in 2014, neurogenic bladder, CKD, hyperlipidemia, sleep apnea, lumbar spinal stenosis, and osteoarthritis who presents to the clinic for a pre-operative cardiovascular evaluation prior to left hip replacement on 01/13/[address] Avelar.. He is currently stable and asymptomatic from a cardiovascular standpoint with no anginal symptoms. He has no evidence of CHF or significant valvular abnormality. His heart rate and blood pressure are adequately controlled. Given this information, the patient is at an acceptable risk to proceed with upcoming surgery without any additional cardiovascular testing or intervention. He may hold his Eliquis for 2-3 days prior to surgery and resume once safe from a surgical standpoint. He should remain on his beta charlie therapy throughout the perioperative period. Recommend close monitoring and avoidance of hypotension, hypertension, tachycardia, hypoxia, and significant anemia throughout the perioperative period to reduce myocardial oxygen demand and meet myocardial oxygen delivery." Will attempt to contact patient to advise them to hold Eliquis 3 days prior to surgery if order to have option for spinal anesthesia. Chart Review Chart Review: Acceptable Risk for Surgery and Patient NOT seen in Pre Admission Testing History Surgery Operation Date: 01/13/20 11:40 Proposed Procedures p Left Total Hip Arthroplasty - Cuong Wilson MD Height/Weight Height: 6 ft Weight: 99.79 kg Allergies Allergy/AdvReac Type Severity Reaction Status Date / Time tetracycline Allergy Unknown HIVES Verified 12/31/19 12:23 morphine AdvReac Nausea Verified 12/31/19 12:23 Medications Home Medications Medication Instructions Recorded Confirmed Last Taken amlodipine 5 mg tablet 5 mg PO QAM 04/06/18 12/31/19 05/16/19 ferrous sulfate 325 mg (65 mg 325 mg PO QPM tab 04/06/18 12/31/19 05/16/19 iron) tablet metoprolol succinate 50 mg 50 mg PO QAM 04/06/18 12/31/19 05/16/19 tablet,extended release 24 hr minoxidil 10 mg tablet 10 mg PO QAM 04/06/18 12/31/19 05/16/19 multivitamin with minerals 1 tab PO DAILY tab 04/06/18 12/31/19 05/16/19 tramadol 50 mg PO Q6H PRN #14 tab 05/05/18 12/31/19 05/18/18 azelastine 0.15 % (205.5 mcg) 1 sprays INTNAS HS #30 ml 05/18/19 12/31/19 Unknown nasal spray duloxetine 30 mg capsule,delayed 30 mg PO QAM cap 10/11/19 12/31/19 Unknown release methenamine hippurate 1 gram tablet 1 gm PO QAM tab 10/11/19 12/31/19 Unknown apixaban 2.5 mg tablet 2.5 mg PO BID #180 tab 11/25/19 12/31/19 Unknown atorvastatin 20 mg tablet See Rx Instructions .ROUTE 12/13/19 12/31/19 Unknown .COMPLEX #90 tablet alprazolam 0.25 mg tablet 0.25 mg PO DAILY PRN #30 tab 12/24/19 12/31/19 Unknown furosemide 40 mg tablet 40 mg PO QAM #90 tab 12/24/19 12/31/19 Unknown cholecalciferol (vitamin D3) 50 mcg PO QPM 12/31/19 12/31/19 Unknown [Vitamin D3] Past Medical History Medical History (Updated 01/01/20 @ 21:07 by Eun Gross) Adult situational stress disorder Anxiety Arthritis Atrial fibrillation Follows with [facility] cardiology (Dr. Jarvis) BPH with obstruction/lower urinary tract symptoms Chronic kidney disease, stage IV (severe) Follows with [facility] urology, nephrology/under surveillance, no dialysis at this time Chronic rhinitis Constipation History of CHF (congestive heart failure) Hyperlipidemia Hypertension Lumbar spinal stenosis (Chronic) Neurogenic bladder (Chronic) Self Catheterization since Aortic repair Osteoarthritis PTSD (post-traumatic stress disorder) POST AORTIC DISSECTION Sleep apnea CPAP Urinary retention Past Family History Family History Grandmother Family history of diabetes mellitus Mother Gallbladder disease Father Prostate cancer Myocardial infarction Hypertension Other Family history non-contributory No family history of adverse response to anesthesia Denies family history of Ovarian cancer Breast cancer Past Surgical History Surgical History (Updated 01/01/20 @ 20:53 by Eun Gross) Fusion of lumbar spine History of arthroscopy RT KNEE History of bladder surgery History of cardiac catheterization 2004 - no stents - [facility] in [place] History of cardioversion mult History of cataract surgery RT/LEFT History of colonoscopy History of esophagogastroduodenoscopy (EGD) History of gastric bypass 2010 History of lumbar fusion History of open reduction and internal fixation (ORIF) procedure RT WRIST 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 History of rhinoplasty History of tooth extraction History of total hip arthroplasty RT History of total knee replacement RT History of transurethral resection of prostate Nausea and vomiting after administration of anesthetic agent Social History Smoking Status: Never smoker Do You Dip or Chew Tobacco: No Hx Alcohol Use: No Hx Substance Use: No substance use type: does not use Testing Laboratory Results 12/13/19 WBC 4.32 H/H 12.9/38.8 PLATELETS 237 SODIUM 143 POTASSIUM 3.7 CHLORIDE 108 CO2 24 BUN 38 CREATININE 2.73 (GFR 22.1, Known hx of CKD stage IV in setting of neurogenic bladder/urinary retention, following with [facility] nephrology. Creatinine levels fluctating in the 2.3- 2.7 range per chart review) GLUCOSE 86 PT 11.8 INR 1.1 Electrocardiogram Date: 05/16/19 A. fib with RVR at 120bpm. LAFB. ST/TWA, consider lateral ischemia. Patient subsequently seen by cardiology 12/29/19 who reviewed previous cardiac testing and felt that patient acceptable risk to proceed with surgery without further cardiac testing. Pulse was 92 at office visit. Echocardiogram Date: 04/09/19 EF 55-60%. No RWMA. Mild cLVH. Moderate TR. Trace to mild MR. No significant changes compared to 01/07/18 per report. Other Testing Chest CT: 10/13/19: Expected findings following repair of the ascending aorta with graft. Suboptimal evaluation given the lack of IV contrast but no abnorm alities identified. Top normal caliber aortic arch with normal caliber descending thoracic aorta. Moderate cardiomegaly.
[~2020-01-13 09:21] MED LIST changes: +ACETAMINOPHEN 500 MG TAB PO SCH; -AMLO5TAB3 PO; -ATOR-22 PO; -BACL10TA PO; +BUPIVACAINE 0.5 % 5 MG/1 ML PF 10ML VIAL ONE; +CEFAZOLIN 2000MG 2,000 MG/15 ML SYR IV SCH; +CeleBREX 200 MG CAP PO SCH; -DULO60CA44 PO; -ELQ25 PO; +FAMOTIDINE 20 MG TAB PO SCH; -FERR1TAB23 PO; -FRS/40 PO; +LR 60ML/HR IV SCH; -METO-217 PO; +METOCLOPRAMIDE HCL 10 MG TABLET PO SCH; -MINO1TAB PO; -MULT-1093 PO; +ROPIVACAINE 0.5% HCL/PF 150 MG, BUPIVACAINE 0.5% MPF 30 ML, EPINEPHrine 0.15 MG, Ketoro... INFIL SCH; +SCOPOLAMINE 1.5 MG TDSY TD SCH; +SODIUM CHLORIDE 0.9% 1000ML 1,000 ML IV SCH; +TRAMADOL HCL 50 MG TABLET PO SCH; +TRANEXAMIC ACID 1,000 MG **IV Intra-op IV SCH; +TRANEXAMIC ACID 1,000 MG **IV Pre-op IV SCH; +dexAMETHasone 4 MG TAB PO SCH
[2020-01-13] MEDS ORDERED: CeleBREX 200 MG CAP ONE (10:15)
[2020-01-13] MEDS ORDERED: ePHEDrine sulfate 50 MG/ML SYR ONE (11:42)
[2020-01-13] MEDS ORDERED: MIDAZOLAM HCL 1 MG/ML 2ML VIAL ONE (11:42)
--- NOTE | 2020-01-13 11:50 | History & Physical Bridge Note ---
Date of Service January 13, 2020 History & Physical Bridge Note I have examined the patient, reviewed the History & Physical and in the interval since the performance of the History & Physical I have noted the following changes of clinical significance: no changes noted
[2020-01-13] MEDS ORDERED: PROPOFOL IV EMULSION 10 MG/ML 20 ML VIAL IV ONE (11:59)
[2020-01-13] MEDS ORDERED: LIDOCAINE HCL 2% 2 ML VIAL/AMP(20MG/ML) INFIL ONE (11:59)
[2020-01-13] MEDS ORDERED: ORTHO JOINT ANESTHETIC ONE (12:17)
[2020-01-13] MEDS ORDERED: DiphenhydrAMINE HCL 50 MG/ML VIAL IV PRN (14:33)
[2020-01-13] MEDS ORDERED: MAGNESIUM HYDROXIDE SUSP 30 ML UDC PO PRN (14:33)
[2020-01-13] MEDS ORDERED: ONDANSETRON INJ 2 MG/ML 2 ML VIAL IV PRN (14:33)
[2020-01-13] MEDS ORDERED: METOCLOPRAMIDE HCL INJ 5 MG/ML 2 ML VIAL IV PRN (14:33)
[2020-01-13] MEDS ORDERED: NALOXONE HCL 0.4 MG/1 ML VIAL/CARP IV PRN (14:33)
[2020-01-13] MEDS ORDERED: ALUMINUM/MAGNESIUM SUSP 30 ML UDC PO PRN (14:33)
[2020-01-13] MEDS ORDERED: bisacodyL 10 MG SUPP PR PRN (14:33)
[2020-01-13] MEDS ORDERED: TRAMADOL HCL 50 MG TABLET PO PRN ×2 (14:33→14:39)
[2020-01-13] MEDS ORDERED: TAMSULOSIN HCL 0.4 MG CAP PO PRN (14:33)
--- NOTE | 2020-01-13 14:33 | Operative Report ---
Post Operative Report Pre & Post Diagnosis Operation Date: 01/13/20 11:35 Pre-Op Diagnosis: Left Hip Arthritis Post-Op Diagnosis: Left Hip Arthritis I identified the patient and participated in the time-out.: Yes Procedure Operation Date: 01/13/20 11:35 Actual Procedures p Left Total Hip Arthroplasty(Left) - Cuong Wilson MD Surgeon Cuong Wilson Freight Rate Clerk Magdalena Parekh PALeidy Estimated Blood Loss 100 Findings Consistent with Post-Op Diagnosis Specimens femoral head Complications none Disposition Accompanied Patient To Recovery: Yes Disposition: Recovery Room Description of Procedure I was present during the entire procedure assisting with wound closure and dressing application. Please see Dr. Wilson procedure note for specifics of the case. I attest to the content of the Intraoperative Record and any orders documented therein. Any exceptions are noted below.
[2020-01-13] MEDS ORDERED: ALPRAZolam 0.25 MG TABLET PO PRN (14:39)
--- NOTE | 2020-01-13 14:44 | Operative Report ---
Post Operative Report Pre & Post Diagnosis Operation Date: 01/13/20 11:35 Pre-Op Diagnosis: Left Hip Arthritis Post-Op Diagnosis: Left Hip Arthritis I identified the patient and participated in the time-out.: Yes Procedure Operation Date: 01/13/20 11:35 Actual Procedures p Left Total Hip Arthroplasty(Left) - uCong Wilson MD Surgeon Cuong Wilson MD Voice Data Communications Engineer Magdalena Parekh PA-C Estimated Blood Loss 100 Findings Consistent with Post-Op Diagnosis Specimens Femoral head Anesthesia Type Spinal MAC Complications none Disposition Accompanied Patient To Recovery: No Disposition: Recovery Room Indications 74-year-old male with medical history significant for aortic dissection with resultant inability to void and self catheterizations and neurologic deficiencies in his lower extremities. He has had left hip pain refractory to conservative management. X-rays and MRI demonstrate end-stage osteoarthritis. I had a long discussion with him about the risks and benefits of surgery alternatives to surgery and expected outcomes. He understands because of his underlying neurologic conditions he is at elevated risk for postoperative complications. In addition he is on Eliquis for history of atrial fibrillation which increases his risk for bleeding complications. After reviewing the risks and benefits of surgery he elected to proceed. All questions were answered. Informed consent was signed. Description of Procedure Patient was identified in the preoperative holding area and the surgical site was marked. A spinal anesthetic was placed, then the patient was brought back to the main operating room, and moved onto the operating table. A Perry catheter was placed using sterile technique. Patient was then moved into the lateral decubitus position. Axillary roll was placed. All bony prominences were padded. Perioperative antibiotics were administered. No tranexamic acid was administered secondary to patient's chronic anticoagulation. Operative extremity was prepped and draped in the normal sterile fashion. Prior to incision a multidisciplinary timeout was called. All in the room were in agreement. We began by making an incision for a posterior approach to the hip. We dissected down through subcutaneous tissues to the level of the fascia. The fascia was incised in line with the incision. Charnley bow was placed. The trochanteric bursa was excised. The piriformis and short external rotators were dissected off the posterior aspect of the hip. A box cut was made in the capsule. The femoral head was dislocated. The femoral neck cut was made at our preoperative template. The acetabulum was then exposed. The labrum was sharply excised. Contents of the cotyloid fossa were removed with electrocautery. We then began reaming at a size 8 mm less than our preoperative template. We reamed up by 1 [address] the way up to a size 58 mm cup. This gave us good bleeding cancellus bone circumferentially. The acetabulum was then irrigated out and dried. The real [place] Gription cup was then impacted down into position with 45 degrees of lateral opening and 25 degrees of anteversion. A single cancellous bone screw was placed up into the ilium. Excellent fixation was obtained. An Altrex polyethylene liner for a 36 mm femoral head was then impacted into the shell. The locking mechanism was c hecked to ensure that it had engaged which it had. Next we turned our attention to the femur. The lateral neck was removed with a box osteotome. Intramedullary guide was used followed by the lateralizing reamer. We then reamed up to a size 7 [place] stem. We then broached all the way up to a size 7. We began trialing with a high offset neck and a +5 offset head. Hip was reduced. Leg lengths were nearly symmetric, however he was just a little shorter than the opposite right side. Therefore the hip was atraumatically dislocated and a +8.5 mm offset head was placed. The hip was reduced. Now his leg lengths were perfectly symmetric. The hip was stable in extension and external rotation, and stable in the sleeper position. At 90 degrees of hip flexion the hip could be internally rotated 40 degrees before levering out of the cup. I was very happy with the stability exam. Therefore the hip was dislocated and the femoral trial was removed. The femoral canal was irrigated and dried. The real size 7 high offset [place] femoral stem was opened up. This was impacted down into position. It sat at the same level as the femoral trial. Therefore the 36 mm metal femoral head with a +8.5 mm offset was opened up and gently impacted down onto the trunnion. The hip was atraumatically reduced. The wound was irrigated out with sterile Betadine solution. The periarticular injection cocktail was then placed. The short external rotators, piriformis, and posterior capsule were repaired through drill holes in the greater trochanter using #2 Vicryl. The fascia was run with a looped #1 PDS. The subcutaneous layer was closed with #1 PDS. The dermal layer was closed with 2-0 Vicryl. Zip line was used for the skin followed by a Silverlon dressing. A compressive dressing was then placed. The patient was then rolled supine. Leg lengths were rechecked and were symmetric. An abduction pillow was placed. Sedation was lifted and the patient was transferred to recovery room in stable condition. Summary of implants: Depuy [place] Gription Acetabular Shell Sector Cup, 58 mm outer diameter [place] Cancellous bone screw, 6.5 x 35 mm [place] Altrx Polyethylene Acetabular Liner, Neutral, with a 36 mm inner diameter DePuy [place] Femoral stem with [place], 12/14 taper, size 7 high offset 36 mm metal femoral head with +8.5 mm offset Postoperative course: Patient will be admitted to the hospital from the recovery room. Patient will be weightbearing as tolerated with posterior hip precautions. Resume Eliquis for DVT prophylaxis I attest to the content of the Intraoperative Record and any orders documented therein. Any exceptions are noted below.
--- NOTE | 2020-01-13 15:09 | XRay Report ---
XR hip 1V LT w pelvis CLINICAL HISTORY: IN PACU - A/P PELVIS and LATERAL HIP COMPARISON: 12/22/2019 DISCUSSION: Interval placement of a total left hip arthroplasty. Good alignment. Good contact between prosthetic and underlying bone. Pre-existing total right hip arthroplasty. Infected soft tissue postoperative change IMPRESSION: Anatomic alignment posttotal left hip arthroplasty. ACT 112: Negative or not required by law. The above report was generated using voice recognition software. It may contain grammatical, syntax or spelling errors. Electronically signed by: Abram Wray M.D. 01/13/2020 3:07 PM
--- NOTE | 2020-01-13 15:39 | Anesthesiology Progress Note ---
Date of Service January 13, 2020 Anesthesia Post Procedure Vital Signs Vital Signs: Temp Pulse Pulse Resp BP BP Pulse Ox 01/13/20 15:20 88 15 110/72 100 01/13/20 15:10 36.3 C L 89 18 111/73 100 01/13/20 15:00 90 20 102/57 L 100 01/13/20 14:50 86 26 H 113/81 100 01/13/20 14:40 93 H 18 103/72 100 01/13/20 14:30 36.6 C 92 H 20 98/73 L 100 01/13/20 10:46 37.0 C 78 20 136/78 99 01/13/20 09:43 37.1 C 80 20 143/96 H 98 Transfer of Care Handoff Completed per policy Notes Mental Status: alert / awake / arousable and participated in evaluation Nausea / Vomiting: adequately controlled Pain: adequately controlled Airway Patency, RR, SpO2: stable & adequate BP & HR: stable & adequate Hydration State: stable & adequate Neuraxial Anesthesia: was administered and sensory block is resolving Anesthetic Complications: no major complications apparent and Pt Satisfied with anesthetic care
[2020-01-13] MEDS: CHECK SCOPOLAMINE PATCH PLACEMENT SCH (17:00)
[2020-01-13] MEDS: SODIUM CHLORIDE 0.9% 1000ML 1,000 ML IV SCH (17:34)
[2020-01-13] MEDS: KETOROLAC TROMETHAMINE 15 MG/ML VIAL IV SCH ×2 (17:34→23:22)
[2020-01-13] MEDS: CEFAZOLIN 2000MG 2,000 MG/15 ML SYR IV SCH (20:56)
[2020-01-13] MEDS ORDERED: FERROUS SULFATE 325 MG TAB PO SCH (21:00)
[2020-01-13] MEDS ORDERED: CHOLECALCIFEROL 1,000 UNITS 25 MCG TAB PO SCH (21:00)
[2020-01-13] MEDS ORDERED: ATORVASTATIN 20 MG TAB PO SCH (21:00)
[2020-01-13] MEDS ORDERED: SENNA 8.6 MG TAB PO SCH (21:00)
[2020-01-13] MEDS: DOCUSATE SODIUM 100 MG CAP PO SCH (21:02)
[2020-01-13] MEDS: ACETAMINOPHEN 500 MG TAB PO SCH (21:03)
[2020-01-14] MEDS: SODIUM CHLORIDE 0.9% 1000ML 1,000 ML IV SCH (00:49)
[2020-01-14] MEDS: CEFAZOLIN 2000MG 2,000 MG/15 ML SYR IV SCH (04:55)
[2020-01-14] MEDS: ACETAMINOPHEN 500 MG TAB PO SCH (04:57)
[2020-01-14] MEDS: KETOROLAC TROMETHAMINE 15 MG/ML VIAL IV SCH ×2 (05:02→12:00)
[2020-01-14 06:38] LABS: Hematocrit (blood only) 27.7 % (42-52); Hemoglobin 9.6 g/dL (14.0-18.0); Immature Granulocytes # (auto) 0.01 K/uL (0.00-0.02); Immature Granulocytes % (auto) 0.1 %; Lymphocytes # (auto) 0.42 K/uL (1.2-3.4); Lymphocytes % (auto) 5.4 %; Mean Corpuscular Hemoglobin 31.6 pg (25-34); Mean Corpuscular Hgb Conc 34.7 g/dL (32-36); Mean Corpuscular Volume 91.1 fL (80-100); Mean Platelet Volume 8.7 fL (7.4-10.4); Monocytes # (auto) 0.71 K/uL (0.11-0.59); Monocytes % (auto) 9.2 %; Neutrophils % (auto) 85.3 %; Platelet Count 174 K/uL (130-400); RDW Coefficient of Variation 13.5 % (11.5-14.5); RDW Standard Deviation 44.9 fL (36.4-46.3); Red Blood Count 3.04 M/uL (4.7-6.1); White Blood Count 7.74 K/uL (4.8-10.8)
[2020-01-14 07:07] LABS: BUN Creatinine Ratio 15.8 (10-20); Creatinine Clr Calc Pharmacy 25.2 ml/min; Est GFR (Non-African American) 18.1; Potassium 3.9 mmol/L (3.5-5.1)
[2020-01-14] MEDS ORDERED: dexAMETHasone 4 MG TAB PO SCH (08:00)
[2020-01-14] MEDS ORDERED: MULTIVITAMIN WITH MINERALS PO SCH (09:00)
[2020-01-14] MEDS ORDERED: minoxidiL 2.5 MG TAB PO SCH (09:00)
[2020-01-14] MEDS ORDERED: APIXABAN 2.5 MG TAB PO SCH (09:00)
[2020-01-14] MEDS ORDERED: METOPROLOL SUCC 50MG EXT REL TAB PO SCH (09:00)
[2020-01-14] MEDS ORDERED: DULOXETINE HCL 30 MG CAP PO SCH (09:00)
[2020-01-14] MEDS ORDERED: MULTIVITAMIN TAB PO SCH (09:00)
[2020-01-14] MEDS: CHECK SCOPOLAMINE PATCH PLACEMENT SCH ×2 (09:00)
[2020-01-14] MEDS ORDERED: METHENAMINE HIPPURATE 1 GM TAB PO SCH (09:00)
[2020-01-14] MEDS ORDERED: CALCITRIOL 0.25 MCG CAPSULE PO SCH (09:00)
[2020-01-14] MEDS ORDERED: FUROSEMIDE 40 MG TAB PO SCH (09:00)
[2020-01-14] MEDS ORDERED: AMLODIPINE BESYLATE 5 MG TAB PO SCH (09:00)
[2020-01-14] MEDS: DOCUSATE SODIUM 100 MG CAP PO SCH (09:32)
--- NOTE | 2020-01-14 11:44 | Orthopedic Progress Note ---
Date of Service January 14, 2020 Assessment & Plan (1) History of total left hip arthroplasty: PT/OT WBAT with walker assistance Ice with EZ wrap Keep dressing in place DVT Prophy with Elilarry and Carmenza Pain control with PO meds Total Hip precautions Discharge home with in home PT F/u at [facility] as previously scheduled With Questions call: Admission and Anticipated Discharge Date Admission Date: January 13, 2020 Subjective This 74 yo M is day 1 s/p Left Total Hip Arthroplasty. He is doing very well. He is dressed and sitting in bedside chair. States that he has been able to transfer from bed/chair to bathroom with walker assistance. Pain is well controlled with PO meds. He denies CP, SOB, nausea, vomiting, fever, chills, sweats or lethargy. Review of Systems Review of Systems: All systems reviewed & are unremarkable except as noted in Subjective Physical Exam Physical Exam: Left Hip: Neg log roll. Minimal pain with very light passive internal/external hip rotation. Able to actively SLRT and dorsi/plantar flex foot. Quad strength 4/5. NV intact. Dressing clean, dry and intact. Knee ROM 0-90 without pain. Periph pulse easily palpable. Cap refill < 2 seconds Results & Data ([facility]) Vital Signs (Past 12 Hours) Vital Signs Temp Pulse Pulse Resp BP Pulse Ox 01/14/20 09:28 82 133/78 01/14/20 07:06 36.8 C 73 16 112/69 97 01/14/20 04:03 36.8 C 71 18 111/69 97 01/14/20 02:28 89 18 97 Laboratory Results 01/14/20 01/14/20 01/13/20 Range/Units 06:14 06:14 09:41 WBC 7.74 (4.8-10.8) K/uL RBC 3.04 L (4.7-6.1) M/uL Hgb 9.6 L (14.0-18.0) g/dL Hct 27.7 L (42-52) % MCV 91.1 (80-100) fL MCH 31.6 (25-34) pg MCHC 34.7 (32-36) g/dL RDW Std Deviation 44.9 (36.4-46.3) fL RDW Coeff of Hector 13.5 (11.5-14.5) % Plt Count 174 (130-400) K/uL MPV 8.7 (7.4-10.4) fL Immature Gran % (Auto) 0.1 % Neut % (Auto) 85.3 % Lymph % (Auto) 5.4 % [place] % (Auto) 9.2 % Eos % (Auto) 0.0 % Baso % (Auto) 0.0 % Immature Gran # (Auto) 0.01 (0.00-0.02) K/uL Neut # (Auto) 6.60 H (1.4-6.5) K/uL Lymph # (Auto) 0.42 L (1.2-3.4) K/uL [place] # (Auto) 0.71 H (0.11-0.59) K/uL Eos # (Auto) 0.00 (0-0.5) K/uL Baso # (Auto) 0.00 (0-0.2) K/uL Sodium 140 (136-145) mmol/L Potassium 3.9 (3.5-5.1) mmol/L Chloride 109 H (98-107) mmol/L Carbon Dioxide 22 (21-32) mmol/L Anion Gap 9.0 (3-11) BUN 51 H (7-18) mg/dl Creatinine 3.22 H (0.6-1.4) mg/dl Est Cr Clr Drug Dosing 25.2 ml/min Est GFR ( Amer) 21.0 Est GFR (Non-Af Amer) 18.1 BUN/Creatinine Ratio 15.8 (10-20) Glucose 145 H (70-99) mg/dl Calcium 8.0 L (8.5-10.1) mg/dl Hepatitis C Ab Screen Neg (Neg)
--- NOTE | 2020-01-14 12:19 | Discharge Summary ---
Date of Service January 14, 2020 Admission HPI Per Admitting Provider PRE-OP Diagnosis: Left Hip Osteoarthritis Planned Procedure: Left Total Hip Arthroplasty Chief Complaint: Left hip pain History of Present Illness (including history relevant to procedure): This 74-year-old male presents the clinic today for his preoperative history and physical. Patient is a longstanding history of persistent left hip pain that he first noticed back in early 2014. States that he is done physical therapy, received steroid injections, tried topical emollients, oral nonsteroidal and pain relieving agents, with no alleviation. Patient states the pain is become increasingly worse over the past year causing him to have an antalgic gait, and requires use of crutches for ambulation. Patient feels that this is affecting his activities of daily living and is ready to proceed with surgical inter vention. Past Medical History: Problems: Preop examination Osteoarthritis of left hip Chronic gluteal pain History of lumbar spinal fusion Lumbar spinal stenosis Synovial cyst of lumbar facet joint Right leg pain Bilateral iliac artery aneurysm AAA (abdominal aortic aneurysm) Fingernail problem Thoracic aortic dissection CHF Hypertension Hyperlipidemia Atrial Fibrillation Sleep Apnea (CPAP use) Neurogenic Bladder (Straight Cath's) Procedure History Procedure Procedure Date Comments Post-surgery back pain 03/05/2019 Shave biopsy and cauterization of skin 10/15/2018 - Left lower back Cataract extraction and insertion of intraocular lens- bi-lat 2017 TURP - Transurethral resection of prostate 2016 Repair of type A aortic dissection 2015 Partial Fusion- right wrist 2013 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 2009 Prosthetic arthroplasty of right hip 2007 Cardiac catheterisation- no stents 2003 Social History: Completely negative Family History: Hypertension, Peripheral Artery Disease, Cancer Allergies and Sensitivities: morphine(Nausea) morphine(Vomiting) tetracycline(Hives) Current Home Meds: (Last Updated 12/21 11:15) (ALPRAZolam 0.25 mg oral tablet) 0.25 mg PO PRN: as needed for anxiety(Cymbalta 30 mg oral delayed release capsule) 30 mg PO Daily(acetaminophen 500 mg oral tablet) 1,000 mg PO q8h(amLODIPine 5 mg oral tablet) 5 mg PO Daily(apixaban 2.5 mg oral tablet) 2.5 mg PO bid(atorvastatin 20 mg oral tablet) 20 mg PO Dailynasal (azelastine 205.5 mcg/inh (0.15%) nasal spray) PLACE 1 SPRAY INTO EACH NOSTRIL AT BEDTIMEvitamin D (calcium with vitamin D 500 mg) 1 tab PO bid(cholecalciferol 1000 intl units oral tablet) 5,000 Int_Unit PO Dailytopical ([place] Nail Lacquer 8% topical solution) 1 appl topical Daily apply to right toenailssulfate (ferrous sulfate 325 mg (65 mg elemental iron) oral delayed release tablet) 325 mg PO Daily(Diflucan 150 mg oral tablet) 150 mg PO ONCE Repeat 1 tab PO once weekly for 4 weeks(furosemide 40 mg oral tablet) 40 mg PO Daily(Toprol-XL 50 mg oral tablet, extended release) 50 mg PO Daily(minoxidil 10 mg oral tablet) 10 mg PO Dailywith minerals (Centrum Silver oral tablet) 1 tab PO Daily(oxyCODONE 5 mg oral capsule) 5 mg PO q6h PRN: as needed for pain(Ultram 50 mg oral tablet) 50 mg PO q12h PRN: as needed for pain 400 mg max Admission Exam Per Admitting Provider General: Alert and oriented x3 with proper grooming and hygiene Eyes: Pupils are equal and reactive to light with accommodation. Extraocular movements are intact Throat: Posterior oropharynx is clear with absence of edema, erythema or exudate Cardiac: Irregularly irregular rate and rhythm with no murmurs or gallops appreciated Lungs: Clear to auscultation with no wheezing, rales or rhonchi Abdomen: Slightly obese, nondistended, nontender with normal active bowel sounds Extremities: Left Hip; patient has mild tenderness over the trochanteric bursa to palpation. His range of motion is limited to flexion at 100 degrees, external rotation at 45 degrees, internal rotation of 5 degrees. Movements refer groin pain in addition to the lateral-sided hip pain. Lyle's test is equivocal. Positive Stinchfield test. NV intact in Left LE. Neuro: Cranial nerves II through XII are intact with no motor or sensory deficit Skin: Normal in appearance with no open skin areas or discharge Principal Diagnosis Left Hip Osteoarthritis Discharge Exam Left Hip: Neg log roll. Minimal pain with very light passive internal/external hip rotation. Able to actively SLRT and dorsi/plantar flex foot. Quad strength 4/5. NV intact. Dressing clean, dry and intact. Knee ROM 0-90 without pain. Periph pulse easily palpable. Cap refill < 2 seconds Discharge Data Allergies Allergy/AdvReac Type Severity Reaction Status Date / Time tetracycline Allergy Unknown HIVES Verified 01/13/20 09:55 morphine AdvReac Nausea Verified 01/13/20 09:55 Consultations 01/14/20 08:00 Consult Case Management - Discharge Planning Routine Procedures Performed Operation Date: 01/13/20 11:35 Actual Procedures p Left Total Hip Arthroplasty(Left) - Cuong Wilson MD Hospital Course (1) History of total left hip arthroplasty: Patient did very well overnight and his pain is adequately controlled with PO meds. He did well this AM with PT/OT and is ready for discharge home with in house PT. PT/OT WBAT with walker assistance Ice with EZ wrap Keep dressing in place DVT Prophy with Eliquis and TEDs Pain control with PO meds Total Hip precautions Discharge home with in home PT F/u at [facility] as previously scheduled With Questions call: Total Time Total Time Spent Total Time Spent (In Minutes): 20 mins Total Time Includes: Examination of the Patient, Discharge Planning and Medication Reconciliation Discharge Plan Discharge Items Patient Disposition: Home - Home Health Services Reason For Visit: Left Hip Arthritis Discharge Diagnosis: Left hip osteoarthritis Activity: As commented below Bathing: Keep incision dry Bathing Comment: may shower tomorrow Sexual Activity: Wait until after follow-up appointment Exercise/Sports: Wait until after follow-up appointment Driving/Machine Use: No driving until cleared by credit balance specialist Weightbearing: Left weightbearing Weightbearing Comment: as tolerated with walker assistance Non-emergency contact: Primary Care Provider Call non-emergency contact if: you have any medication questions, your pain is not controlled, your temperature is above 101.5, your wound has increased drainage and your wound pain has increased Follow-up/Referrals: Jasiel Pineda DO [Primary Care Provider] - Diet: Regular Addtl Attending Provider Instructions: Post-operative Instructions Dear Patient and Family/Friends, Before you are discharged from the hospital, it is important to know what to expect when you get home after surgery. To that end, we have created this sheet of discharge instructions which covers many commonly asked questions. Make sure you go through this sheet in its entirety with your nurse before you are discharged. Please note that we will go over the specifics of your surgery and recovery when you return for your first post-operative visit. Sincerely, Dr. Wilson Medications 1. Oxycodone 5 mg: take 1-2 tabs po q 4-6 hrs for pain control. This prescription will be sent to your pharmacy. 2. Diclofenac Sodium 75 mg: take 1 tab twice daily for 30 days post operatively for pain control. A prescription with 1 refill will be sent to your pharmacy. 3. Resume your daily Eliquis post operatively for blood clot prevention. 4. Extra Strength Tylenol 500 mg: take 2 tabs every 6-8 hours for pain relief for 3 days post operatively. Please purchase. Pain Expect to be in a fair amount of pain after surgery. Remember, our goal is not to eliminate your pain, but to make it tolerable. It is a good idea to stay ahead of your pain by taking the medications you were prescribed once you get home. Typically, the pain starts improving 3-7 days after surgery. You should start weaning off the narcotic pain medication (oxycodone, hydrocodone, hydromorphone, morphine) as soon as your pain improves. Please call our office if your pain is not adequately controlled. Ice Ice your operative site at least 5 times a day for 15-30 minutes at a time. Make sure you have a thin cloth between the ice or cooling unit and your skin to prevent gil bite. This is especially important if you received a nerve block. Continue icing your operative site for the first 5-7 days after surgery, then as needed. Diet/Nausea/Vomiting Start by drinking clear liquids and eating crackers. If you can tolerate this, then you may resume your normal diet. If you feel nauseated or vomit, take Zofran/ondansetron (if prescribed). Please call our office if you have intractable nausea or vomiting, or, if after hours, you may go to the Emergency Room for help. Constipation Constipation is a common side effect of narcotic pain medication. If you have not had a bowel movement within 2 days after surgery, we recommend purchasing an over the counter laxative such as Milk of Magnesia, Dulcolax, or Miralax from a local pharmacy, and taking it as instructed. Call our clinic if any questions. Nerve block The anesthesia team sometimes places a nerve block to help with post-operative pain control. This results in significant numbness and inability to move the extremity. The nerve block usually wears off in 8-12 hours, but sometimes can last up to 24 hours. Please call our office if you are still unable to move your extremity after 24 hours, unless you received a pain pump to take home. Nerve blocks typically wear off quickly, so start taking pain medication as soon as you start feeling soreness near your surgical site. Weight bearing and Range of Motion. Do not bear any weight through your operative extremity immediately after surgery. If you had upper extremity surgery, do not lift anything with that arm. If you are in a knee brace, keep it locked in place until your follow-up. We will discuss your weight bearing, range of motion, and lifting restrictions in detail at your first post-operative appointment. Continuous Passive Motion (CPM) Machine If you were prescribed a CPM machine, it will start after your first post- operative appointment, at which time we will give you instructions on the range of motion settings and duration of treatment Physical therapy You will be given a prescription for physical therapy or occupational therapy at your first post-operative appointment. Typically, patients start therapy within 1 week of surgery Wound care and showering We will inspect your wound at your first post-operative visit, and may do a dressing change at that time. Most patients will be in a water-proof dressing that is removed 14 days after surgery. It is normal to see some dried blood on the dressing. Do not remove your dressing, paper strips or sutures yourself unless you are given permission. Showering is allowed the day after surgery. Do not scrub or remove any dressings. The wound should not be submerged underwater (i.e. in a bathtub or pool) until 4 weeks after surgery SHUN stockings If you were given white stockings, these are to be worn at all times except to shower (on both legs) for the first 2 weeks after surgery. Driving You may not drive while taking narcotic pain medication or while in a cast, splint, sling or brace. You, the patient, need to make the final determination about when you are safe to drive, however, the earliest you may consider driving after surgery is below: Hand/Wrist/Elbow Surgery: 3 days Shoulder Surgery: 2 weeks Hip,/Knee/Ankle Surgery: 4 weeks Fracture repair: 6 weeks Return to Work Your return to work depends on what surgery was done and what type of work you do. Please bring any paperwork your employer needs completed to your first post-operative visit. Also, bring a description of your job duties, as this helps us to understand what risks you may face at work. Travel Avoid long distance travel (greater than 1 hour) in airplanes and cars for the first 6 weeks after surgery. If you must travel, you need to have a Doppler ultrasound done before you travel to rule out a blood clot in your legs. Follow-up You should have a follow-up appointment already scheduled 1-2 days after surgery. If not, please contact our office to make this appointment before you leave the hospital. When to call the office It is normal to have swelling and bruising in the limb that was operated on. This will improve with time. It is also normal to have fevers for the first 2 days after surgery. Reasons you should call your doctor include: Uncontrolled pain; Nausea, vomiting, or constipation that does not improve with medication; Fevers over 101.5, chills, sweats; Drainage or bleeding from the wound; Foul odor; Spreading areas of redness; Any other concerns Pending Studies at Discharge: No Stand-Alone Forms: My [facility], Opioid Pain Management Medications and DC Order Prescriptions: New oxycodone 5 mg tablet 5 mg PO Q6H Qty: 30 RF: 0 diclofenac sodium 75 mg tablet,delayed release (DR/EC) 75 mg PO BID 30 Days Qty: 60 RF: 1 Continued metoprolol succinate [Toprol XL] 50 mg tablet extended release 24 hr 50 mg PO QAM RF: 0 amlodipine 5 mg tablet 5 mg PO QAM RF: 0 ferrous sulfate 325 mg (65 mg iron) tablet 325 mg PO QPM RF: 0 minoxidil 10 mg tablet 10 mg PO QAM RF: 0 multivitamin with minerals tablet 1 tab PO DAILY RF: 0 Eliquis 2.5 mg tablet 2.5 mg PO BID Qty: 180 RF: 3 atorvastatin 20 mg tablet See Rx Instructions .ROUTE .COMPLEX Qty: 90 RF: 3 alprazolam 0.25 mg tablet 0.25 mg PO DAILY PRN (Reason: anxiety) Qty: 30 RF: 2 furosemide [Lasix] 40 mg tablet 40 mg PO QAM Qty: 90 RF: 3 calcitriol 0.25 mcg capsule 0.25 mcg PO .QMWF Qty: 30 RF: 2 azelastine 0.15 % (205.5 mcg) spray,non-aerosol 1 sprays INTNAS HS Qty: 30 RF: 2 methenamine hippurate 1 gram tablet 1 gm PO QAM Qty: 90 RF: 3 duloxetine 30 mg capsule,delayed release(DR/EC) 30 mg PO QAM RF: 0 cholecalciferol (vitamin D3) [Vitamin D3] 50 mcg (2,000 unit) Tablet 50 mcg PO QPM RF: 0 Discontinued tramadol 50 mg tablet 50 mg PO Q6H PRN (Reason: pain) Qty: 20 RF: 0 Discharge Orders: Discharge Order (Routine); Ordered 01/14/20 Ordered By: Bridger Lewis/Other Patient Handouts: Preventing Deep Vein Thrombosis Admission Data Admit Date/Time: 01/13/20 14:33 Attending Provider: Cuong Wilson Admit Provider: Cuong Wilson Primary Care Provider: Jasiel Pineda Other Providers: Eber Neff Other Interventions: Discharge Summary Assessment (RN) Last Done: 01/14/20 12:07
[2020-01-14] MEDS ORDERED: CeleBREX 200 MG CAP PO SCH (21:00)
== END 2020-01-14 13:09 | disposition home health service (06) | DRG 470 ==
LOC: ASU 09:21 → 3E 14:33

== ENCOUNTER 2020-01-15 00:42 | Inpatient (IN) ==
[2020-01-15] MEDS ORDERED: fentaNYL citrate 100 MCG/2 ML VIAL IV STA ×2 (00:51→01:11)
--- NOTE | 2020-01-15 00:51 | Emergency Department Note ---
Impression & Plan Dislocation of left hip, Acute renal failure, Fall ED Provider Note Name: JENNIFER STAPLETON Age: 74 Sex: M Arrives Via: Ambulance Informant: Patient, EMS ED Provider: Ash Iverson MD Chief Complaint: left hip pain Impression: Dislocation of Left Hip Acute Renal Failure Fall Medical Decision Making: Pleasant 74 yr old male 48 hours post left hip replacement who fell at home this evening. 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 No head injury but has had 2 doses eliquis in last [address] head done which was negative. Xray left hip revealed dislocation. Dr Arias at bedside to do reduction and I did section. Prolonged sedation given difficulty of getting hip in as well as need to avoid deep sedation given his high ASA and severe sleep apnea. Successful reduction by Dr Arias and patient slowly awoke without further issue. Fully awake, alert, oriented. No significant post reduction discomfort and neuro vascular intact on multiple rechecks. Patient with labs revealing acute on chronic renal failure with Cr going 2.5 to now 3.9. Likely combination recent surgery, dehydration and NSAID usage. Given IV fluids throughout stay in ED and will admit to hospitalist service for further management. Prior Medical Record and Triage/Nursing Notes reviewed by Me Additional history obtained from records Differentials:Dislocation, fracture, hematoma, n/v injury, ICH, electrolyte disturbance, anemia amongst other pathologies. Vital Signs: reviewed and remarkable for mildly hypertensive Interventions: saline lock, nss bolus ~1 L IV Fluids, Fentanyl 50mcg IV x 2, Zofran 4mg IV, Propofol 470mg IV Labs:Reviewed and remarkable for acute on chronic renal failure Imaging:Xray Results per my interpretation: Left hip with pelvis: Acute posterior dislocation left hip prosthesis, no acute fracture EKG:reviewed previous Cardiac/Tele Monitoring: Cardiac Monitoring: An Order was placed for continuous cardiac monitoring. The monitor shows a rate of 80 with a atrial fib rhythm. Consults:Dr Arias [facility], Dr Satnam RICKETTS Hospitalist Plan: Disposition:Hospitalization. Condition: Good Blood pressure:Elevated - Referred to [facility] to be Situational. Prescriptions:none PDMP: none History of Present Illness:74 / M arrives for evaluation of left hip pain. Patient with long standing arthritic issues left hip and thus replacement done 48 hours ago. He was at home this evening when he got up and leg was too weak/painful to stand and thus fell on left side. Notes immediate pain left hip. Unable to stand due to pain. No radiation of pain but does note pain in left groin since surgery. No back, neck, headache. Did not strike head. He is on eliquis for Afib and took last dose around dinner time (~6 hours ago). Took Tramadol earlier in evening though that is not helping the pain currently. Mo vement makes worse, staying still makes pain better. Denies other injuries. Denies cp, sob, weakness, nor other symptoms. He previously has had right hip, right knee and right wrist surgeries along with open chest surgery for ascending aortic aneurysm and previous gastric bypass. Last meal 6pm followed by 2 cookies at 7:30pm ROS: See above HPI for pertinent positives & negatives. A total of 10 systems reviewed and were otherwise negative. Past Medical History:See Below Past Surgical History:See Below Family History:See Below Social History:See Below Home Medications:See Below Allergies:See Below Vitals:Blood Pressure: 142/98, Pulse 79, RR 22, T 37.4C, O2 98% on RA Physical Exam: GENERAL: Patient is very uncomfortable appearing and in moderate distress though in good spirits EYES: No scleral icterus, unremarkable pupils. ENT: Mucous membranes moist, no nasal congestion. NECK: No masses appreciated, nomeningismus, trachea is midline. RESPIRATORY: No dyspnea. Clear to auscultation and equal bilaterally. No wheeze, no rhonchi. CARDIOVASCULAR: Irregular, mild systolic murmur. No rubs, gallops appreciated. GASTROINTESTINAL: Abdomen soft, non-tender, no peritonitis.Bowel sounds positive.No masses appreciated. BACK: No midline tenderness, no CVA tenderness EXTREMITIES: Shortened unrotated left leg with good pulses, severe pain with attempt at ROM left hip. Moderate swelling left this. Otherwise normal motion all extremities, no cyanosis, no edema. NEUROLOGIC: Alert and oriented, no acute motor or sensory deficits, no focal weakness, cranial nerves grossly intact. SKIN: No rash, no jaundice, no diaphoresis. PSYCH: Appropriate GCS: 15 ED Course: Times/Reassessments: Multiple throughout, much improved pain post reduction. Procedures: Procedural Sedation Indication: Left hip dislocation reduction Last Ate: 7:30pm on 01/14/20 Previous issues with sedation: Nausea Snore/Sleep Apnea: Yes Smoker: No Emergent: Yes ASA: 3 Dentures: None Time Out: 2:16am on 01/15/20 Time Recovered: 3:07pm on 01/15/20 Total time: 51 minutes Written consent was obtained after the risks and benefits were explained to the patient, including, but not limited to aspiration, allergic reaction, breathing difficulties, cardiac complications, vomiting, pain, event recall, bleeding, and/or infection. Pre-sedation examination and paperwork completed. The patient was on 100% oxygen via NRB prior to the procedure. Continuos end tidal CO2 monitoring, pulse oximetry, and cardiac monitoring were utilized. Suction, airway equipment, medications, respiratory equipment, and appropriate personnel were prepared prior to the initiation of the procedure. A time out was taken. Sedation was achieved utilizing 470 mg of propofol. After I observed the patient had reached the appropriate level of sedation the main procedure was performed. Sedation was prolonged given severe difficulty of getting hip in. Patient heavily snoring and has significant sleep apnea requiring almost constant jaw thrust to keep airway open. Did have 2 very brief episodes of migdalia ats in to 80s once hip finally reduced. Sedation was discontinued and the pt monitoring continued. The patient recovered quickly from the effects of the medication without complication or adverse event. Ash Iverson MD Past Med/Surg History Social History Preferred Language: French Communication Ability: Effective Visual Impairment: Diminished Hearing Ability: Normal Voice Instructor Required: No Beliefs That Will Affect Care: None marital status: Current Living Situation: Spouse current occupational status: retired Feels Safe at Home: Yes Smoking Status: Never smoker Second Hand Exposure: Yes ( used to be a smoker) ; Hx Alcohol Use: No Hx Substance Use: No Childhood Exposure to Second-Hand Smoke: Yes caffeine: Yes Dental Care, Regularly: Yes Physical Activity Frequency: Does not Exercise Physical Activity Frequency Comment: due to back issue Seatbelt Use: always Sunscreen Use: Yes Allergies Allergies Allergy/AdvReac Type Severity Reaction Status Date / Time tetracycline Allergy Unknown HIVES Verified 01/15/20 01:35 morphine AdvReac Nausea Verified 01/15/20 01:35 Home Meds Home Medications Medication Instructions Recorded Confirmed amlodipine 5 mg tablet 5 mg PO QAM 04/06/18 01/15/20 ferrous sulfate 325 mg (65 mg 325 mg PO QPM tab 04/06/18 01/15/20 iron) tablet metoprolol succinate 50 mg 50 mg PO QAM 04/06/18 01/15/20 tablet,extended release 24 hr minoxidil 10 mg tablet 10 mg PO QAM 04/06/18 01/15/20 multivitamin with minerals 1 tab PO DAILY tab 04/06/18 01/15/20 duloxetine 30 mg capsule,delayed 30 mg PO QAM cap 10/11/19 01/15/20 release cholecalciferol (vitamin D3) 50 mcg PO QPM 12/31/19 01/15/20 [Vitamin D3] tramadol 50 mg PO Q6H PRN 01/15/20 01/15/20 Previous Rx's Medication Instructions Recorded apixaban 2.5 mg tablet 2.5 mg PO BID #180 tab 11/25/19 atorvastatin 20 mg tablet See Rx Instructions .ROUTE 12/13/19 .COMPLEX #90 tablet alprazolam 0.25 mg tablet 0.25 mg PO DAILY PRN #30 tab 12/24/19 furosemide 40 mg tablet 40 mg PO QAM #90 tab 12/24/19 methenamine hippurate 1 gram tablet 1 gm PO QAM #90 tab 01/05/20 calcitriol 0.25 mcg capsule 0.25 mcg PO .QMWF #30 cap 01/07/20 azelastine 0.15 % (205.5 mcg) 1 sprays INTNAS HS #30 ml 01/11/20 nasal spray diclofenac sodium 75 mg PO BID 30 Days #60 tab 01/14/20 oxycodone 5 mg PO Q6H #30 tab 01/14/20 Results & Data (ED) Vital Signs Vital Signs - 24 hr 01/15/20 00:50 01/15/20 02:02 01/15/20 02:05 Temperature 37.4 C Temperature Source Oral Pulse Rate 104 H 94 H 93 H Pulse Rate from SpO2 Sensor 90 Respiratory Rate 22 Respiratory Effort / Characteristics Non-Labored Spontaneous Respiratory Depth Normal Blood Pressure 157/88 H 137/87 136/92 Blood Pressure Mean 111 114 114 Pulse Oximetry 98 98 Oxygen Delivery Method Room Air Oxygen Flow Rate Sepsis Action Taken by Nursing No Action Required End-Tidal CO2 01/15/20 02:10 01/15/20 02:15 01/15/20 02:20 Temperature Temperature Source Pulse Rate 83 79 110 H Pulse Rate from SpO2 Sensor 89 79 100 H Respiratory Rate Respiratory Effort / Characteristics Respiratory Depth Blood Pressure 136/96 150/103 H Blood Pressure Mean 109 124 Pulse Oximetry 97 94 97 Oxygen Delivery Method Nasal Cannula Nasal Cannula Oxygen Flow Rate 6 6 Sepsis Action Taken by Nursing End-Tidal CO2 24 18 01/15/20 02:21 01/15/20 02:25 01/15/20 02:30 Temperature Temperature Source Pulse Rate 92 H 91 H Pulse Rate from SpO2 Sensor 106 H 94 H 101 H Respiratory Rate Respiratory Effort / Characteristics Respiratory Depth Blood Pressure 124/86 114/81 120/77 Blood Pressure Mean 109 103 108 Pulse Oximetry 95 99 98 Oxygen Delivery Method Nasal Cannula Nasal Cannula Nasal Cannula Oxygen Flow Rate 6 6 6 Sepsis Action Taken by Nursing End-Tidal CO2 20 01/15/20 02:35 Temperature Temperature Source Pulse Rate 107 H Pulse Rate from SpO2 Sensor 106 H Respiratory Rate Respiratory Effort / Characteristics Respiratory Depth Blood Pressure 134/101 H Blood Pressure Mean 120 Pulse Oximetry 99 Oxygen Delivery Method Nasal Cannula Oxygen Flow Rate 6 Sepsis Action Taken by Nursing End-Tidal CO2 12 Laboratory Data Result diagrams: 01/15/20 00:56 01/15/20 00:56 Lab Results 01/15/20 01/15/20 01/15/20 Range/Units 00:56 00:56 00:56 WBC 8.16 (4.8-10.8) K/uL RBC 3.33 L (4.7-6.1) M/uL Hgb 10.2 L (14.0-18.0) g/dL Hct 29.6 L (42-52) % MCV 88.9 (80-100) fL MCH 30.6 (25-34) pg MCHC 34.5 (32-36) g/dL RDW Std Deviation 44.2 (36.4-46.3) fL RDW Coeff of Hector 13.5 (11.5-14.5) % Plt Count 204 (130-400) K/uL MPV 8.7 (7.4-10.4) fL Immature Gran % (Auto) 0.2 % Neut % (Auto) 83.1 % Lymph % (Auto) 5.3 % Hinds % (Auto) 11.4 % Eos % (Auto) 0.0 % Baso % (Auto) 0.0 % Immature Gran # (Auto) 0.02 (0.00-0.02) K/uL Neut # (Auto) 6.78 H (1.4-6.5) K/uL Lymph # (Auto) 0.43 L (1.2-3.4) K/uL Hinds # (Auto) 0.93 H (0.11-0.59) K/uL Eos # (Auto) 0.00 (0-0.5) K/uL Baso # (Auto) 0.00 (0-0.2) K/uL PT 11.9 (9.0-12.0) Seconds INR 1.1 (0.9-1.1) APTT 30.2 (21.0-31.0) Seconds PTT Ratio 1.1 Sodium 136 (136-145) mmol/L Potassium 3.9 (3.5-5.1) mmol/L Chloride 104 (98-107) mmol/L Carbon Dioxide 19 L (21-32) mmol/L Anion Gap 13.0 H (3-11) BUN 67 H (7-18) mg/dl Creatinine 3.95 H D (0.6-1.4) mg/dl Est Cr Clr Drug Dosing Not Reportable Est GFR ( Amer) 16.4 Est GFR (Non-Af Amer) 14.1 BUN/Creatinine Ratio 17.0 (10-20) Glucose 163 H (70-99) mg/dl Calcium 8.4 L (8.5-10.1) mg/dl Administered Medications Discontinued Medications Fentanyl Citrate (Fentanyl Citrate) 50 mcg IV NOW STA Stop: 01/15/20 00:52 Last Admin: 01/15/20 00:55 Dose: 50 mcg Documented by: [id number] Fentanyl Citrate (Fentanyl Citrate) Confirm Administered Dose 100 mcg .ROUTE .STK-MED ONE Stop: 01/15/20 00:53 Last Admin: 01/15/20 00:56 Dose: Not Given Documented by: [id number] Fentanyl Citrate (Fentanyl Citrate) 50 mcg IV NOW STA Stop: 01/15/20 01:12 Last Admin: 01/15/20 01:22 Dose: 50 mcg Documented by: [id number] Sodium Chloride (Nss 1000ml) 500 mls @ 999 mls/hr IV .Q31M ONE Stop: 01/15/20 02:04 Last Infusion: 01/15/20 03:13 Dose: 0 mls/hr Documented by: [id number] Admin: 01/15/20 02:10 Dose: 999 mls/hr Documented by: [id number] Ondansetron HCl (Zofran) 4 mg IV NOW STA Stop: 01/15/20 02:01 Last Admin: 01/15/20 02:10 Dose: 4 mg Documented by: [id number] Propofol (Diprivan) Confirm Administered Dose 200 mg IV .STK-MED ONE Stop: 01/15/20 02:07 Last Admin: 01/15/20 03:13 Dose: 200 mg Documented by: [id number] Cosigned by: [id number] Propofol (Diprivan) Confirm Administered Dose 200 mg IV .STK-MED ONE Stop: 01/15/20 02:27 Last Admin: 01/15/20 03:14 Dose: 200 mg Documented by: [id number] Cosigned by: [id number] Propofol (Diprivan) Confirm Administered Dose 200 mg IV .STK-MED ONE Stop: 01/15/20 02:46 Last Admin: 01/15/20 03:14 Dose: 70 mg Documented by: [id number] Cosigned by: [id number] Discharge Plan Visit Data *Final* Discharge Date/Time: 01/15/20 03:58 Chief Complaint: Hip Pain Stated Complaint: FALL/LT. HIP PAIN ED Provider: Ash Iverson Discharge Problem: Dislocation of left hip, Acute renal failure, Fall Patient Disposition: Admitted As Inpatient Discharge Instructions Interventions: ED Discharge Assessment Last Done: 01/15/20 03:58 Discharge Problem: Dislocation of left hip Qualifiers: Encounter type: initial encounter Qualified Code(s): S73.005A - Unspecified dislocation of left hip, initial encounter Acute renal failure Qualifiers: Acute renal failure type: unspecified Qualified Code(s): N17.9 - Acute kidney failure, unspecified Fall Qualifiers: Encounter type: initial encounter Qualified Code(s): W19.XXXA - Unspecified fall, initial encounter
[2020-01-15] MEDS ORDERED: fentaNYL citrate 100 MCG/2 ML VIAL ONE (00:52)
[2020-01-15 01:05] LABS: Hematocrit (blood only) 29.6 % (42-52); Hemoglobin 10.2 g/dL (14.0-18.0); Immature Granulocytes # (auto) 0.02 K/uL (0.00-0.02); Immature Granulocytes % (auto) 0.2 %; Lymphocytes # (auto) 0.43 K/uL (1.2-3.4); Lymphocytes % (auto) 5.3 %; Mean Corpuscular Hemoglobin 30.6 pg (25-34); Mean Corpuscular Hgb Conc 34.5 g/dL (32-36); Mean Corpuscular Volume 88.9 fL (80-100); Mean Platelet Volume 8.7 fL (7.4-10.4); Monocytes # (auto) 0.93 K/uL (0.11-0.59); Monocytes % (auto) 11.4 %; Neutrophils # (auto) 6.78 K/uL (1.4-6.5); Neutrophils % (auto) 83.1 %; Platelet Count 204 K/uL (130-400); RDW Coefficient of Variation 13.5 % (11.5-14.5); RDW Standard Deviation 44.2 fL (36.4-46.3); Red Blood Count 3.33 M/uL (4.7-6.1); White Blood Count 8.16 K/uL (4.8-10.8)
[2020-01-15 01:14] LABS: INR 1.1 (0.9-1.1); Partial Thromboplastin Ratio 1.1; Partial Thromboplastin Time 30.2 Seconds (21.0-31.0); Prothrombin Time 11.9 Seconds (9.0-12.0)
[2020-01-15 01:27] LABS: Blood Urea Nitrogen 67 mg/dl (7-18); Calcium 8.4 mg/dl (8.5-10.1); Carbon Dioxide 19 mmol/L (21-32); Chloride 104 mmol/L (98-107); Est GFR (African American) 16.4; Est GFR (Non-African American) 14.1; Glucose 163 mg/dl (70-99); Potassium 3.9 mmol/L (3.5-5.1); Sodium 136 mmol/L (136-145)
[2020-01-15] MEDS ORDERED: SODIUM CHLORIDE 0.9% 1000ML 500 ML IV ONE (01:34)
--- NOTE | 2020-01-15 01:46 | XRay Report ---
XR hip LT 2V w pelvis CLINICAL HISTORY: left hip pain s/p fall. recent replaced COMPARISON: 01/13/2020 DISCUSSION: Superior dislocation of left hip. Pre-existing total right hip arthroplasty in good posit ion. No evidence for acetabular protrusion. There is no evidence for soft tissue swelling. IMPRESSION: Superior dislocation left hip prosthetic. ACT 112: Negative or not required by law. The above report was generated using voice recognition software. It may contain grammatical, syntax or spelling errors. Electronically signed by: Abram Wray M.D. 01/15/2020 1:45 AM
[2020-01-15] MEDS ORDERED: ONDANSETRON INJ 2 MG/ML 2 ML VIAL IV STA (02:00)
[2020-01-15] MEDS ORDERED: PROPOFOL IV EMULSION 10 MG/ML 20 ML VIAL IV ONE ×3 (02:06→02:45)
--- NOTE | 2020-01-15 02:42 | History & Physical Report ---
Date of Service January 15, 2020 Assessment & Plan (1) Acute kidney injury superimposed on chronic kidney disease: Chronic kidney disease stage IV. Creatinine worsening from 2.5-3.22-3.95. Likely combination of fluid chest, prerenal state and use of diclofenac. Avoid all NSAIDs. Rehydrate with IV fluids: Received a 500 cc NSS bolus while in the ED, and continue NSS 80 mils per hour. Follow serial BMP and magnesium levels. Consult his caustic preparer Dr. Gilbert Paul Present on Admission?: Yes (2) Dislocation of left hip: Relocation of left total hip arthroplasty performed in the ED. Further management per orthopedic surgery. Present on Admission?: Yes (3) BPH with obstruction/lower urinary tract symptoms: BPH with obstruction,LUTS/neurogenic bladder- Continue methenamine hippurate Present on Admission?: Yes (4) Atrial fibrillation: Atrial fibrillation/AAA/hypertension- Continue amlodipine 5 mg p.o. daily, apixaban 2.5 mg p.o. twice daily, metoprolol succinate 50 mg p.o. daily and minoxidil 10 mg p.o. daily. Hold furosemide 40 mg daily due to MARINO Present on Admission?: Yes (5) Abdominal aortic aneurysm: See above Present on Admission?: Yes (6) Hypertension: See above Present on Admission?: Yes (7) Anxiety: Anxiety/PTSD- Continue duloxetine 30 mg p.o. daily and alprazolam 0.25 mg p.o. daily PRN Present on Admission?: Yes (8) History of gastric bypass: Continue usual supplements Present on Admission?: Yes (9) Hyperlipidemia: Continue atorvastatin 20 mg daily Present on Admission?: Yes (10) Neurogenic bladder: See above Present on Admission?: Yes (11) Neurogenic bowel: Noted, no direct treatment Present on Admission?: Yes (12) PTSD (post-traumatic stress disorder): See above Present on Admission?: Yes History of Present Illness Chief Complaint: The patient presents to the emergency department via ambulance due to acute left hip pain after falling onto his left hip when going from sitting to standing, after having recently undergone a left total hip arthroplasty during admission from 01/12-01/13. Primary Care Provider: Jasiel Pineda, DO The patient is a 74-year-old male with a past medical history including urinary tract infection, abdominal aortic aneurysm, neurogenic bowel, sleep apnea, mitral vegetation, CKD stage IV, anxiety, adult situational stress disorder, atrial fibrillation, history gastric bypass, hyperlipidemia, hypertension, n eurogenic bladder and PTSD. He had recently undergone a left hip arthroplasty by Dr. Wilson during admission from 01/12- 01/13. He was going from sitting to standing, and his leg became too weak to stand on, and fell on his left side. Upon arrival in ED, it was determined to physical examination imaging that he had a dislocated new left hip arthroplasty. He underwent sedation and relocation of hip by Dr. Iverson and Dr. Arias. Work-up in the ED also included laboratories, which revealed an acutely worsening creatinine from preadmission 2.52, to the morning of discharge 3.22, and upon arrival in ED tonight 3.95. Allergies Allergy/AdvReac Type Severity Reaction Status Date / Time tetracycline Allergy Unknown HIVES Verified 01/15/20 01:35 morphine AdvReac Nausea Verified 01/15/20 01:35 Home Medications Home Medications Medication Instructions Recorded Confirmed Type amlodipine 5 mg tablet 5 mg PO QAM 04/06/18 01/15/20 History ferrous sulfate 325 mg (65 mg 325 mg PO QPM tab 04/06/18 01/15/20 History iron) tablet metoprolol succinate 50 mg 50 mg PO QAM 04/06/18 01/15/20 History tablet,extended release 24 hr minoxidil 10 mg tablet 10 mg PO QAM 04/06/18 01/15/20 History multivitamin with minerals 1 tab PO DAILY tab 04/06/18 01/15/20 History duloxetine 30 mg capsule,delayed 30 mg PO QAM cap 10/11/19 01/15/20 History release apixaban 2.5 mg tablet 2.5 mg PO BID #180 tab 11/25/19 01/15/20 Rx atorvastatin 20 mg tablet See Rx Instructions .ROUTE 12/13/19 01/15/20 Rx .COMPLEX #90 tablet alprazolam 0.25 mg tablet 0.25 mg PO DAILY PRN #30 tab 12/24/19 01/15/20 Rx furosemide 40 mg tablet 40 mg PO QAM #90 tab 12/24/19 01/15/20 Rx cholecalciferol (vitamin D3) 50 mcg PO QPM 12/31/19 01/15/20 History [Vitamin D3] methenamine hippurate 1 gram tablet 1 gm PO QAM #90 tab 01/05/20 01/15/20 Rx calcitriol 0.25 mcg capsule 0.25 mcg PO .QMWF #30 cap 01/07/20 01/15/20 Rx azelastine 0.15 % (205.5 mcg) 1 sprays INTNAS HS #30 ml 01/11/20 01/15/20 Rx nasal spray diclofenac sodium 75 mg PO BID 30 Days #60 tab 01/14/20 01/15/20 Rx oxycodone 5 mg PO Q6H #30 tab 01/14/20 01/15/20 Rx tramadol 50 mg PO Q6H PRN 01/15/20 01/15/20 History Past Med/Surg History Social History Preferred Language: Swazi Communication Ability: Effective Visual Impairment: Diminished Hearing Ability: Normal Pen Maker Required: No Beliefs That Will Affect Care: None marital status: Current Living Situation: Spouse current occupational status: retired Feels Safe at Home: Yes Smoking Status: Never smoker Second Hand Exposure: Yes ( used to be a smoker) ; Hx Alcohol Use: No Hx Substance Use: No Childhood Exposure to Second-Hand Smoke: Yes caffeine: Yes Dental Care, Regularly: Yes Physical Activity Frequency: Does not Exercise Physical Activity Frequency Comment: due to back issue Seatbelt Use: always Sunscreen Use: Yes Review of Systems Review of Systems: The patient denies chest pain, palpitations, shortness of breath, dyspnea on exertion, cough, lower extremity swelling, sore throat, fevers, chills, sweats, weight change, nausea, vomiting, diarrhea , constipation, abdominal pain, pelvic pain, blood in urine or stool, dysuria, urinary frequency or urgency, lightheadedness, dizziness, headache, memory loss, loss of consciousness, rash, abnormal bruising or bleeding, generalized weakness, numbness or tingling in arms, generalized arthralgias or myalgias, back or neck pain, or night sweats. The review of systems is otherwise negative other than for that already noted above, and at least 10 systems have been reviewed. Physical Exam Physical Exam: The patient is awake, alert and oriented 3, well developed and well nourished, normocephalic and atraumatic, lying in bed and in no acute distress. HEENT--PERRL, EOMI, mucous membranes and oropharynx normal. Neck--supple. No JVD. No bruits. Thyroid normal, trachea midline, no adenopathy. Heart--normal S1 and S2. No murmurs, rubs or gallops. Lungs--clear bilaterally, no respiratory distress, no accessory muscle use. Abdomen--normal bowel sounds and soft. Nontender. Nondistended. Extremities--no cyanosis or clubbing. No edema. There are good distal pulses b/l. Dermatologic--normal skin turgor, normal color, no abnormal lymph nodes, no rash. Neurologic--limited exam due to hip dislocation Psychiatric--normal affect. Results & Data Results & Data ([facility]) Vital Signs (Past 12 Hours) Vital Signs Temp Pulse Resp BP Pulse Ox 01/15/20 02:05 93 H 136/92 98 01/15/20 02:02 94 H 137/87 01/15/20 00:50 99.3 F 104 H 22 157/88 H 98 Laboratory Results Laboratory Results WBC 8.16 K/uL (4.8-10.8) 01/15/20 00:56 RBC 3.33 M/uL (4.7-6.1) L 01/15/20 00:56 Hgb 10.2 g/dL (14.0-18.0) L 01/15/20 00:56 Hct 29.6 % (42-52) L 01/15/20 00:56 MCV 88.9 fL (80-100) 01/15/20 00:56 MCH 30.6 pg (25-34) 01/15/20 00:56 MCHC 34.5 g/dL (32-36) 01/15/20 00:56 RDW Std Deviation 44.2 fL (36.4-46.3) 01/15/20 00:56 RDW Coeff of Hector 13.5 % (11.5-14.5) 01/15/20 00:56 Plt Count 204 K/uL (130-400) 01/15/20 00:56 MPV 8.7 fL (7.4-10.4) 01/15/20 00:56 Immature Gran % (Auto) 0.2 % 01/15/20 00:56 Neut % (Auto) 83.1 % 01/15/20 00:56 Lymph % (Auto) 5.3 % 01/15/20 00:56 [place] % (Auto) 11.4 % 01/15/20 00:56 Eos % (Auto) 0.0 % 01/15/20 00:56 Baso % (Auto) 0.0 % 01/15/20 00:56 Immature Gran # (Auto) 0.02 K/uL (0.00-0.02) 01/15/20 00:56 Neut # (Auto) 6.78 K/uL (1.4-6.5) H 01/15/20 00:56 Lymph # (Auto) 0.43 K/uL (1.2-3.4) L 01/15/20 00:56 [place] # (Auto) 0.93 K/uL (0.11-0.59) H 01/15/20 00:56 Eos # (Auto) 0.00 K/uL (0-0.5) 01/15/20 00:56 Baso # (Auto) 0.00 K/uL (0-0.2) 01/15/20 00:56 PT 11.9 Seconds (9.0-12.0) 01/15/20 00:56 INR 1.1 (0.9-1.1) 01/15/20 00:56 APTT 30.2 Seconds (21.0-31.0) 01/15/20 00:56 PTT Ratio 1.1 01/15/20 00:56 Sodium 136 mmol/L (136-145) 01/15/20 00:56 Potassium 3.9 mmol/L (3.5-5.1) 01/15/20 00:56 Chloride 104 mmol/L (98-107) 01/15/20 00:56 Carbon Dioxide 19 mmol/L (21-32) L 01/15/20 00:56 Anion Gap 13.0 (3-11) H 01/15/20 00:56 BUN 67 mg/dl (7-18) H 01/15/20 00:56 Creatinine 3.95 mg/dl (0.6-1.4) H D 01/15/20 00:56 Est Cr Clr Drug Dosing Not Reportable 01/15/20 00:56 Est GFR ( Amer) 16.4 01/15/20 00:56 Est GFR (Non-Af Amer) 14.1 01/15/20 00:56 BUN/Creatinine Ratio 17.0 (10-20) 01/15/20 00:56 Glucose 163 mg/dl (70-99) H 01/15/20 00:56 Calcium 8.4 mg/dl (8.5-10.1) L 01/15/20 00:56 Diagnostic Findings [facility] [place] [phone] XRay Report Patient: JENNIFER STAPLETON Date: 01/15/20 MR#: [id number]: [id number] Acct ID:[id number]: Date: 1945[facility] Zip: [place] [address] Age: 74Location: ED Sex: M Room/Bed: Att Phy:Diagnosis: FALL/LT. HIP PAIN Patricia Phy: Jasiel Pineda, DOService Date: 01/15/20 Fam Phy:Interpreting Phy: Abram Wray MD Admit Phy: Ordering Phy: Ash Iverson M.D. cc: ~ XR hip LT 2V w pelvis CLINICAL HISTORY: left hip pain s/p fall. recent replaced COMPARISON: 01/13/2020 DISCUSSION: Superior dislocation of left hip. Pre-existing total right hip arthroplasty in good position. No evidence for acetabular protrusion. There is no evidence for soft tissue swelling. IMPRESSION: Superior dislocation left hip prosthetic. ACT 112: Negative or not required by law. The above report was generated using voice recognition software. It may contain grammatical, syntax or spelling errors. Electronically signed by: Abram Wray M.D. 01/15/2020 1:45 AM Dictated: 01/15/20143 Transcribed: 01/15/20 014 [facility] Patient: JENNIFER STAPLETON (Male) : 47 Status: ER Date: 01/15/20 01:59 Room #: History: fall, pt on Eliquis, r/o trauma Slices: 66 Priors: Tech: Marcela Mendoza @ [phone] Exams: CT HEAD Accession Numbers: [id number] Preliminary Findings Only See Final Report For Complete Findings CT HEAD: No ICH, mass effect or edema. No skull fracture. Radiologist: Denton Johnson M.D. Study ready at 02:01 and initial results transmitted at 02:19 *This report constitutes a preliminary interpretation only. Non-acute findings felt to be unrelated to the clinical presentation may not be discussed in this report. The study will be interpreted and a final report will be generated by the local Radiologist the following shift. To reach the hospital radiology department call [phone]. If a discrepancy is found between the preliminary and final interpretations of this study, please notify us via our Client Portal at [email or web address], under QA Exams.You can also fax this report with a description of the discrepancy, or include the final report, to our daytime fax number [phone].If faxing, please indicate the severity of discrepancy using one of the following categories: [ ] 1 - Agree/Informational [ ] 2 - Unlikely to Affect Management [ ] 3 - Possible Eventual Change of Management [ ] 4 - Probable Immediate Change of Management For all other patient related information, please fax us at [phone]. [id number] Code Status & VTE Plan Code Status Full code VTE Prophylaxis Plan VTE Prophylaxis will be ordered: Yes PG Care Time/CCT Total # of Minutes Spent Total Time Spent with Patient: Total time spent is greater than 50% in coordination of care (as documented) at patient's floor/unit and/or counseling patient: Coding Level of Care Code 96700 Initial Inpt Care Lvl 3 Diagnoses Acute kidney injury superimposed on chronic kidney disease N17.9; N18.9 Dislocation of left hip S73.005A Encounter type: initial encounter BPH with obstruction/lower urinary tract symptoms N40.1; N13.8 Atrial fibrillation I48.2 Atrial fibrillation type: permanent Abdominal aortic aneurysm I71.4 Presence of rupture: without rupture Hypertension I10 Hypertension type: essential hypertension Anxiety F41.9 History of gastric bypass Z98.84 Hyperlipidemia E78.5 Neurogenic bladder N31.9 Neurogenic bowel K59.2 PTSD (post-traumatic stress disorder) F43.10 (1) Dislocation of left hip Encounter type: initial encounter Qualified Code(s): S73.005A - Unspecified dislocation of left hip, initial encounter (2) Atrial fibrillation Atrial fibrillation type: permanent Qualified Code(s): I48.2 - Chronic atrial fibrillation (3) Abdominal aortic aneurysm Presence of rupture: without rupture Qualified Code(s): I71.4 - Abdominal aortic aneurysm, without rupture (4) Hypertension Hypertension type: essential hypertension Qualified Code(s): I10 - Essential (primary) hypertension
--- NOTE | 2020-01-15 03:15 | Operative Report ---
Post Operative Report Pre & Post Diagnosis L JASON posterior dislocation I identified the patient and participated in the time-out.: Yes Procedure Closed reduction L JASON Surgeon Elkin Arias MD Senior Associate n/a Estimated Blood Loss 0 Findings Consistent with Post-Op Diagnosis Specimens n/a Drains n/a Complications none Indications 74 y.o. male s/p L JASON 01/13/[address] Wilson, d/c from hospital 01/14/2020, fell while self catheterizing last evening. He had pain in his groin prior to his fall. He was unable to stand and was brought to ER where x-rays showed a dislocated L JASON. Discussed his options and recommended attempted closed reduction under conscious sedation in the ER. The risks and benefits were discussed. He agreed and the informed consent was signed. Description of Procedure After preforming a time-out identifying the patient as well as the L hip for closed reduction, conscious sedation was preformed. Several attempts overall were made with counter traction placed on the pelvis and with flexion of the hip and knee along with longitudinal traction and was felt to be reduced. Portable x-ray was brought in and after first attempt and AP image showed the JASON to still be dislocated. Eventually with adequate sedation the JASON again was felt to be reduced and x-rays confirmed the L JASON was reduced. Leg lengths were improved, he had approximately 1 cm shortening. - pistoning of the hip. He will be admitted to hospitalist service. WBAT with walker LLE. Total hip precautions. I attest to the content of the Intraoperative Record and any orders documented therein. Any exceptions are noted below.
--- NOTE | 2020-01-15 03:22 | Orthopedic Consultation ---
Date of Consultation January 15, 2020 Assessment & Plan (1) Status post total hip replacement, left: Pt is POD #2 s/p L JASON with posterior dislocation. Discussed his options and recommended attempted closed reduction under conscious sedation in the ER. The risks and benefits were discussed. He agreed and the informed consent was signed. Refer to OP report fo further details regarding the successful closed reduction L JASON. He will be admitted to hospitalist service, due acute renal failure. WBAT with walker LLE. Total hip precautions. ice to left hip. Keep Silverlon dressing on. Present on Admission?: Yes History of Present Illness Reason for Consultation: L JASON dislocation Requesting Physician: Manisha Arias MD Attending Physician: Ash Iverson MD History of Present Illness 74 y.o. male s/p L JASON 01/13/[address] Wilson, d/c from hospital 01/14/2020, fell while self catheterizing last evening. He had pain in his groin prior to his fall. He was unable to stand and was brought to ER where x-rays showed a dislocated L JASON. I was consulted for further evaluation and treatment. Allergies Allergy/AdvReac Type Severity Reaction Status Date / Time tetracycline Allergy Unknown HIVES Verified 01/15/20 01:35 morphine AdvReac Nausea Verified 01/15/20 01:35 Home Medications Home Medications Medication Instructions Recorded Confirmed Type amlodipine 5 mg tablet 5 mg PO QAM 04/06/18 01/15/20 History ferrous sulfate 325 mg (65 mg 325 mg PO QPM tab 04/06/18 01/15/20 History iron) tablet metoprolol succinate 50 mg 50 mg PO QAM 04/06/18 01/15/20 History tablet,extended release 24 hr minoxidil 10 mg tablet 10 mg PO QAM 04/06/18 01/15/20 History multivitamin with minerals 1 tab PO DAILY tab 04/06/18 01/15/20 History duloxetine 30 mg capsule,delayed 30 mg PO QAM cap 10/11/19 01/15/20 History release apixaban 2.5 mg tablet 2.5 mg PO BID #180 tab 11/25/19 01/15/20 Rx atorvastatin 20 mg tablet See Rx Instructions .ROUTE 12/13/19 01/15/20 Rx .COMPLEX #90 tablet alprazolam 0.25 mg tablet 0.25 mg PO DAILY PRN #30 tab 12/24/19 01/15/20 Rx furosemide 40 mg tablet 40 mg PO QAM #90 tab 12/24/19 01/15/20 Rx cholecalciferol (vitamin D3) 50 mcg PO QPM 12/31/19 01/15/20 History [Vitamin D3] methenamine hippurate 1 gram tablet 1 gm PO QAM #90 tab 01/05/20 01/15/20 Rx calcitriol 0.25 mcg capsule 0.25 mcg PO .QMWF #30 cap 01/07/20 01/15/20 Rx azelastine 0.15 % (205.5 mcg) 1 sprays INTNAS HS #30 ml 01/11/20 01/15/20 Rx nasal spray diclofenac sodium 75 mg PO BID 30 Days #60 tab 01/14/20 01/15/20 Rx oxycodone 5 mg PO Q6H #30 tab 01/14/20 01/15/20 Rx tramadol 50 mg PO Q6H PRN 01/15/20 01/15/20 History Patient History Social History Preferred Language: Senegalese Communication Ability: Effective Visual Impairment: Diminished Hearing Ability: Normal Credit Office Manager Required: No Beliefs That Will Affect Care: None marital status: Current Living Situation: Spouse current occupational status: retired Feels Safe at Home: Yes Smoking Status: Never smoker Second Hand Exposure: Yes ( used to be a smoker) ; Hx Alcohol Use: No Hx Substance Use: No Childhood Exposure to Second-Hand Smoke: Yes caffeine: Yes Dental Care, Regularly: Yes Physical Activity Frequency: Does not Exercise Physical Activity Frequency Comment: due to back issue Seatbelt Use: always Sunscreen Use: Yes Review of Systems Review of Systems: All systems reviewed & are unremarkable except as noted in HPI & below Physical Exam Physical Exam: LLE: sensation to light touch intact. BCR < 2 sec, wiggling toes and ankle. calf soft and non-tender. Shortened LLE. Dressing intact. Results & Data ([facility]) Vital Signs (Past 12 Hours) Vital Signs Temp Pulse Resp BP Pulse Ox 01/15/20 03:15 95 H 113/75 97 01/15/20 03:10 81 117/80 98 01/15/20 03:05 86 22 115/78 99 01/15/20 03:01 102 H 117/79 99 01/15/20 03:00 108 H 100 01/15/20 02:55 103 H 132/84 83 L 01/15/20 02:51 107 H 134/85 99 01/15/20 02:50 89 99 01/15/20 02:49 104 H 110/87 95 01/15/20 02:45 109 H 99 01/15/20 02:41 104 H 119/78 98 01/15/20 02:40 103 H 99 01/15/20 02:35 107 H 134/101 H 99 01/15/20 02:30 120/77 98 01/15/20 02:25 91 H 114/81 99 01/15/20 02:21 92 H 124/86 95 01/15/20 02:20 110 H 97 01/15/20 02:15 79 150/103 H 94 01/15/20 02:10 83 136/96 97 01/15/20 02:05 93 H 136/92 98 01/15/20 02:02 94 H 137/87 01/15/20 00:50 37.4 C 104 H 22 157/88 H 98 Laboratory Results 01/15/20 01/15/20 01/15/20 Range/Units 00:56 00:56 00:56 WBC 8.16 (4.8-10.8) K/uL RBC 3.33 L (4.7-6.1) M/uL Hgb 10.2 L (14.0-18.0) g/dL Hct 29.6 L (42-52) % MCV 88.9 (80-100) fL MCH 30.6 (25-34) pg MCHC 34.5 (32-36) g/dL RDW Std Deviation 44.2 (36.4-46.3) fL RDW Coeff of Hector 13.5 (11.5-14.5) % Plt Count 204 (130-400) K/uL MPV 8.7 (7.4-10.4) fL Immature Gran % (Auto) 0.2 % Neut % (Auto) 83.1 % Lymph % (Auto) 5.3 % Will % (Auto) 11.4 % Eos % (Auto) 0.0 % Baso % (Auto) 0.0 % Immature Gran # (Auto) 0.02 (0.00-0.02) K/uL Neut # (Auto) 6.78 H (1.4-6.5) K/uL Lymph # (Auto) 0.43 L (1.2-3.4) K/uL Will # (Auto) 0.93 H (0.11-0.59) K/uL Eos # (Auto) 0.00 (0-0.5) K/uL Baso # (Auto) 0.00 (0-0.2) K/uL PT 11.9 (9.0-12.0) Seconds INR 1.1 (0.9-1.1) APTT 30.2 (21.0-31.0) Seconds PTT Ratio 1.1 Sodium 136 (136-145) mmol/L Potassium 3.9 (3.5-5.1) mmol/L Chloride 104 (98-107) mmol/L Carbon Dioxide 19 L (21-32) mmol/L Anion Gap 13.0 H (3-11) BUN 67 H (7-18) mg/dl Creatinine 3.95 H D (0.6-1.4) mg/dl Est Cr Clr Drug Dosing Not Reportable Est GFR ( Amer) 16.4 Est GFR (Non-Af Amer) 14.1 BUN/Creatinine Ratio 17.0 (10-20) Glucose 163 H (70-99) mg/dl Calcium 8.4 L (8.5-10.1) mg/dl Diagnostic Findings AP Pelvis and lateral left hip show a posterior dislocated L JASON. Evidence of R JASON as well.
[2020-01-15] MEDS ORDERED: ONDANSETRON INJ 2 MG/ML 2 ML VIAL IV PRN (04:24)
[2020-01-15] MEDS ORDERED: ACETAMINOPHEN 325 MG TAB PO PRN (04:24)
[2020-01-15] MEDS ORDERED: OXYCODONE HCL IR 5 MG TAB (IMMEDIATE RELEASE) PO PRN (04:24)
[2020-01-15] MEDS ORDERED: ALUMINUM/MAGNESIUM SUSP 30 ML UDC PO PRN (04:24)
[2020-01-15] MEDS ORDERED: ALPRAZolam 0.25 MG TABLET PO PRN (04:24)
[2020-01-15] MEDS ORDERED: MAGNESIUM HYDROXIDE SUSP 30 ML UDC PO PRN (04:24)
[2020-01-15] MEDS ORDERED: TRAMADOL HCL 50 MG TABLET PO PRN (04:24)
--- NOTE | 2020-01-15 04:44 | Emergency Department Note ---
Pre Sedation Assessment Vital Signs Temp Pulse Resp BP Pulse Ox 01/15/20 02:35 107 H 134/101 H 99 01/15/20 02:30 120/77 98 01/15/20 02:25 91 H 114/81 99 01/15/20 02:21 92 H 124/86 95 01/15/20 02:20 110 H 97 01/15/20 02:15 79 150/103 H 94 01/15/20 02:10 83 136/96 97 01/15/20 02:05 93 H 136/92 98 01/15/20 02:02 94 H 137/87 01/15/20 00:50 37.4 C 104 H 22 157/88 H 98 Pre-Sedation Airway Assessment Smoking Status: Never smoker Hx Sleep Apnea: Yes Short, Thick Neck: No Thyromental Distance: > or= 3.5 Finger Breadths Oral Cavity: + WNL Mallampati Class: II NPO Status Date of Last Intake of Fluids: 01/14/20 Time of Last Intake of Fluids: 23:15 Date of Last Intake of Solid Food: 01/14/20 Time of Last Intake of Solid Foods: 19:30 Notes The planned sedation has been discussed with the patient. Informed Consent was obtained. I have identified the patient, determined the appropriateness of sedation and have assessed the patient immediately prior to the procedure. ASA 3 All medicine(s) and interventions are by my order. : Dislocation of left hip Qualifiers: Encounter type: initial encounter Qualified Code(s): S73.005A - Unspecified dislocation of left hip, initial encounter Acute renal failure Qualifiers: Acute renal failure type: unspecified Qualified Code(s): N17.9 - Acute kidney failure, unspecified Fall Qualifiers: Encounter type: initial encounter Qualified Code(s): W19.XXXA - Unspecified fall, initial encounter
--- NOTE | 2020-01-15 04:45 | Emergency Department Note ---
Post Sedation Assessment Vital Signs Temp Pulse Resp BP Pulse Ox 01/15/20 02:35 107 H 134/101 H 99 01/15/20 02:30 120/77 98 01/15/20 02:25 91 H 114/81 99 01/15/20 02:21 92 H 124/86 95 01/15/20 02:20 110 H 97 01/15/20 02:15 79 150/103 H 94 01/15/20 02:10 83 136/96 97 01/15/20 02:05 93 H 136/92 98 01/15/20 02:02 94 H 137/87 01/15/20 00:50 37.4 C 104 H 22 157/88 H 98 Recovery Score Activity: Moves 4 extremities Respiration: Deep Breath/Cough Circulation: +/-20% PreAnes Value Consciousness: Fully Awake Oxygen Saturation: > 92% On Room Air Post Anesthesia Score: 10 Discharge Sedation Level of Care: Fast Track Phase II Unexpected Event: None Post Sedation Plan On clinical assessment, the patient appears to have tolerated the sedation without complications. Patient is recovering as anticipated. Patient will continue to be monitored by nursing and may be discharged when sedation discharge criteria are met per below protocol. Upon Completions of procedure up to 15 minutes continue every 5 minute vital signs and the P.A.R. score; then discharge to a Phase I or Fast Track to Phase II per the following guidelines: * Discharge Patient to appropriate Phase II area if PAR is 8 or greater or return to pre- procedure baseline. The post - procedure orders will be as directed. * If PAR score is less than 8 or not return to pre-procedure baseline then patient will follow Phase I monitoring till PAR is reached for Phase II. The Phase I may be done in procedure room or may call to secure a Phase I area. * If naloxone or flumazenil are used for reversal, hold in Phase I for continued monitoring from when last reversal dose was given for a minimum of 60 minutes or longer pending the nurse and/or physician discretion of patient condition before discharge to Phase II. Please call the Sedation Physician to re-evaluate and complete post-note for discharge to Phase II area. Do NOT discharge from procedure sedation or Phase 1 until post- sedation evaluation note is complete by procedure /sedation MD Sedation Discharge Instructions to be given to the patient at discharge to home. Sedation Data Sedation Times Sedation Start Date: 01/15/20 Sedation Start Time: 20:17 Sedation End Date: 01/15/20 Sedation End Time: 03:07 Total Sedation Time: -1030 Procedure Times Procedure Start Time:: 02:18 Procedure End Time: 02:53 : Dislocation of left hip Qualifiers: Encounter type: initial encounter Qualified Code(s): S73.005A - Unspecified dislocation of left hip, initial encounter Acute renal failure Qualifiers: Acute renal failure type: unspecified Qualified Code(s): N17.9 - Acute kidney failure, unspecified Fall Qualifiers: Encounter type: initial encounter Qualified Code(s): W19.XXXA - Unspecified fall, initial encounter
[2020-01-15] MEDS: SODIUM CHLORIDE 0.9% 1000ML 1,000 ML IV SCH ×2 (05:00→17:33)
--- NOTE | 2020-01-15 06:19 | CT Scan Report ---
CT head/brain wo con CT DOSE: 614.27 mGy.cm HISTORY: Trauma. Mental status change. fall, on eliquis TECHNIQUE: Multiaxial CT images of the head were performed without the use of intravenous contrast. A dose lowering technique was utilized adhering to the principles of ALARA. Comparison: None. Findings: The paranasal sinuses and mastoid air cells are clear. The calvarium and skull base are int act. The ventricles and sulci are within normal limits. There is no mass, hematoma, midline shift, or acute infarct. Impression: No acute intracranial abnormality. ACT 112: Negative or not required by law. The above report was generated using voice recognition software. It may contain grammatical, syntax or spelling errors. Electronically signed by: Abram Wray M.D. 01/15/2020 6:18 AM
--- NOTE | 2020-01-15 06:24 | XRay Report ---
XR pelvis 1-2V routine CLINICAL HISTORY: POST REDUCTION COMPARISON: Same date 1:08 AM DISCUSSION: Unchanging superior dislocation left hip prosthetic. There is no evidence for soft tissue swelling. IMPRESSION: Unchanging superior dislocation left hip prosthetic ACT 112: Negative or not required by law. The above report was generated using voice recognition software. It may contain grammatical, syntax or spelling errors. Electronically signed by: Abram Wray M.D. 01/15/2020 6:22 AM
--- NOTE | 2020-01-15 06:24 | XRay Report ---
XR hip 1V LT w pelvis CLINICAL HISTORY: POST REDUCTION COMPARISON: Same date DISCUSSION: Anatomic alignment post successful closed reduction left hip There is no evidence for sof t tissue swelling. IMPRESSION: Anatomic alignment post successful closed reduction left hip. ACT 112: Negative or not required by law. The above report was generated using voice recognition software. It may contain grammatical, syntax or spelling errors. Electronically signed by: Abram Wray M.D. 01/15/2020 6:23 AM
[2020-01-15] MEDS: APIXABAN 2.5 MG TAB PO SCH ×2 (09:22→20:46)
[2020-01-15] MEDS: AMLODIPINE BESYLATE 5 MG TAB PO SCH (09:23)
[2020-01-15] MEDS: ATORVASTATIN 20 MG TAB PO SCH (09:23)
[2020-01-15] MEDS: DULOXETINE HCL 30 MG CAP PO SCH (09:23)
[2020-01-15] MEDS: CEROVITE ADV FORMULA TAB PO SCH (09:23)
[2020-01-15] MEDS: METOPROLOL SUCC 50MG EXT REL TAB PO SCH (09:24)
--- NOTE | 2020-01-15 10:53 | Hospitalist Progress Note ---
Date of Service January 15, 2020 Assessment & Plan (1) Dislocation of left hip: * Patient with recent L JASON on 01/[address] Wilson, discharged on 01/13 with patient falling and dislocating same * Successful closed reduction in ER * Ortho on consult -- appreciate input --> brace, ice, fermin stockings, hip precautions Follow up with ortho outpatient as previously scheduled PT/OT WBAT * Eliquis for DVT proph (2) Metabolic acidosis: * Discharged with MARINO following surgery, now presenting with anion gap metabolic acidosis IMPROVING * AM labs with Cr elevated to 3.96 (baseline 2.3-2.7), Anion Gap 13.0, bicarb low at 19 * IVF NSS 80cc/hr * Repeat BMP this afternoon with improvement --> No longer anion gap, bicarb up to 20, Cr improved to 3.6. K low at 3.3 -- given 20meq PO x 1 * Nephrology on consult -- Given epogen 11423 units x 1 today Rec continuing calcitriol for hyperparathyroidism Consider Na bicarb * Monitor BMP (3) Acute kidney injury superimposed on chronic kidney disease: * Follows with Dr. Paul * Improving -- see above * Avoid NSAIDs (4) Anemia due to chronic kidney disease: * Noted * H/h stable 10.2/29.6 (5) Fall: * Mechanical, getting out of car. See above (6) Status post total hip replacement, left: * See above (7) Hypertension: * Chronic. Stable 119/76 * Holding lasix in setting of MARINO * Continue metoprolol, minoxidil, (8) Sleep apnea: * BiPAP ordered for tonight (9) Hyperlipidemia: * Continue atorvastatin (10) PTSD (post-traumatic stress disorder): * secondary to AAA dissection/repair (11) Neurogenic bladder: * Following AAA repair (12) CKD (chronic kidney disease), stage IV: * See above (13) DVT prophylaxis: * Eliquis 2.5mg BID Fermin dumonte Dispo: possible discharge tomorrow pending resolution of MARINO Admission and Anticipated Discharge Date Admission Date: January 15, 2020 Supervising Physician Co-Signing Physician Notes PA Supervision Note: I did not personally see or examine the patient today, but I verified all [place] points of BRIGIDO Soni's assessment and plan with the following exceptions/additions: None Subjective BRIDGE NOTE, NO BILL Patient doing well. Pain tolerable with prn medication. Patient confirms he had his hip realigned in the ER and is now in a brace. Hopeful for discharge with home PT with eventual plans to follow up with outpatient PT through [facility]. Physical Exam Constitutional: WD/WN, vitals as above no acute distress Eyes: + anicteric sclerae and PERRL Neck: trachea midline, no thyromegaly Respiratory: normal respiratory effort, lungs clear to auscultation Cardiovascular: Rate/Rhythm: + irregularly irregular Extremities: normal capillary refill; no calf tenderness and no edema Gastrointestinal (Abdomen): normal bowel sounds, soft, nontender, no hepatosplenomegaly Musculoskeletal: brace to LLE NVI sensation to light touch intact Neurologic: patellar DTR's 2+ bilat, sensation intact Psychiatric: A+Ox3, euthymic affect Lymphatic: no cervical or axillary lymphadenopathy Results & Data Results & Data ([facility]) Vital Signs (Past 12 Hours) Vital Signs Temp Pulse Pulse Resp BP BP Pulse Ox 01/15/20 06:28 36.6 C 78 19 119/76 96 01/15/20 04:15 36.8 C 90 16 150/87 H 97 01/15/20 03:45 79 142/98 H 98 01/15/20 03:30 84 122/83 96 01/15/20 03:25 77 133/88 97 01/15/20 03:20 89 129/75 97 01/15/20 03:15 95 H 113/75 97 01/15/20 03:10 81 117/80 98 01/15/20 03:05 86 22 115/78 99 01/15/20 03:01 102 H 117/79 99 01/15/20 03:00 108 H 100 01/15/20 02:55 103 H 132/84 83 L 01/15/20 02:51 107 H 134/85 99 01/15/20 02:50 89 99 01/15/20 02:49 104 H 110/87 95 01/15/20 02:45 109 H 99 01/15/20 02:41 104 H 119/78 98 01/15/20 02:40 103 H 99 01/15/20 02:35 107 H 134/101 H 99 01/15/20 02:30 120/77 98 01/15/20 02:25 91 H 114/81 99 01/15/20 02:21 92 H 124/86 95 01/15/20 02:20 110 H 97 01/15/20 02:15 79 150/103 H 94 01/15/20 02:10 83 136/96 97 01/15/20 02:05 93 H 136/92 98 01/15/20 02:02 94 H 137/87 01/15/20 00:50 37.4 C 104 H 22 157/88 H 98 Laboratory Results 01/15/20 01/15/20 01/15/20 Range/Units 15:09 00:56 00:56 WBC (4.8-10.8) K/uL RBC (4.7-6.1) M/uL Hgb (14.0-18.0) g/dL Hct (42-52) % MCV (80-100) fL MCH (25-34) pg MCHC (32-36) g/dL RDW Std Deviation (36.4-46.3) fL RDW Coeff of Hector (11.5-14.5) % Plt Count (130-400) K/uL MPV (7.4-10.4) fL Immature Gran % (Auto) % Neut % (Auto) % Lymph % (Auto) % Cook % (Auto) % Eos % (Auto) % Baso % (Auto) % Immature Gran # (Auto) (0.00-0.02) K/uL Neut # (Auto) (1.4-6.5) K/uL Lymph # (Auto) (1.2-3.4) K/uL Cook # (Auto) (0.11-0.59) K/uL Eos # (Auto) (0-0.5) K/uL Baso # (Auto) (0-0.2) K/uL PT 11.9 (9.0-12.0) Seconds INR 1.1 (0.9-1.1) APTT 30.2 (21.0-31.0) Seconds PTT Ratio 1.1 Sodium 137 136 (136-145) mmol/L Potassium 3.3 L D 3.9 (3.5-5.1) mmol/L Chloride 107 104 (98-107) mmol/L Carbon Dioxide 20 L 19 L (21-32) mmol/L Anion Gap 9.0 13.0 H (3-11) BUN 57 H 67 H (7-18) mg/dl Creatinine 3.60 H D 3.95 H D (0.6-1.4) mg/dl Est Cr Clr Drug Dosing 23.1 Not Reportable Est GFR ( Amer) 18.3 16.4 Est GFR (Non-Af Amer) 15.8 14.1 BUN/Creatinine Ratio 15.9 17.0 (10-20) Glucose 165 H 163 H (70-99) mg/dl Calcium 7.7 L 8.4 L (8.5-10.1) mg/dl Magnesium 2.4 (1.8-2.4) mg/dl 01/15/20 Range/Units 00:56 WBC 8.16 (4.8-10.8) K/uL RBC 3.33 L (4.7-6.1) M/uL Hgb 10.2 L (14.0-18.0) g/dL Hct 29.6 L (42-52) % MCV 88.9 (80-100) fL MCH 30.6 (25-34) pg MCHC 34.5 (32-36) g/dL RDW Std Deviation 44.2 (36.4-46.3) fL RDW Coeff of Hector 13.5 (11.5-14.5) % Plt Count 204 (130-400) K/uL MPV 8.7 (7.4-10.4) fL Immature Gran % (Auto) 0.2 % Neut % (Auto) 83.1 % Lymph % (Auto) 5.3 % Cook % (Auto) 11.4 % Eos % (Auto) 0.0 % Baso % (Auto) 0.0 % Immature Gran # (Auto) 0.02 (0.00-0.02) K/uL Neut # (Auto) 6.78 H (1.4-6.5) K/uL Lymph # (Auto) 0.43 L (1.2-3.4) K/uL Cook # (Auto) 0.93 H (0.11-0.59) K/uL Eos # (Auto) 0.00 (0-0.5) K/uL Baso # (Auto) 0.00 (0-0.2) K/uL PT (9.0-12.0) Seconds INR (0.9-1.1) APTT (21.0-31.0) Seconds PTT Ratio Sodium (136-145) mmol/L Potassium (3.5-5.1) mmol/L Chloride (98-107) mmol/L Carbon Dioxide (21-32) mmol/L Anion Gap (3-11) BUN (7-18) mg/dl Creatinine (0.6-1.4) mg/dl Est Cr Clr Drug Dosing Est GFR ( Amer) Est GFR (Non-Af Amer) BUN/Creatinine Ratio (10-20) Glucose (70-99) mg/dl Calcium (8.5-10.1) mg/dl Magnesium (1.8-2.4) mg/dl Diagnostic Findings HIP/PELVIS XRAY IMPRESSION: Anatomic alignment post successful closed reduction left hip. PG Care Time/CCT Total # of Minutes Spent Total Time Spent with Patient: Total time spent is greater than 50% in coordination of care (as documented) at patient's floor/unit and/or counseling patient: Coding Level of Care Code None Diagnoses Dislocation of left hip S73.005A Encounter type: initial encounter Metabolic acidosis E87.2 Acute kidney injury superimposed on chronic kidney disease N17.9; N18.9 Anemia due to chronic kidney disease N18.9; D63.1 Fall W19.XXXA Encounter type: initial encounter Status post total hip replacement, left Z96.642 Hypertension I10 Hypertension type: essential hypertension Sleep apnea G47.30 Hyperlipidemia E78.5 PTSD (post-traumatic stress disorder) F43.10 Neurogenic bladder N31.9 CKD (chronic kidney disease), stage IV N18.4 DVT prophylaxis Z29.9 (1) Dislocation of left hip Encounter type: initial encounter Qualified Code(s): S73.005A - Unspecified dislocation of left hip, initial encounter (2) Hypertension Hypertension type: essential hypertension Qualified Code(s): I10 - Essential (primary) hypertension (3) Fall Encounter type: initial encounter Qualified Code(s): W19.XXXA - Unspecified fall, initial encounter
[2020-01-15] MEDS: minoxidiL 2.5 MG TAB PO SCH (11:06)
--- NOTE | 2020-01-15 11:48 | Nephrology Consultation ---
Date of Consultation January 15, 2020 Assessment & Plan (1) Acute kidney injury superimposed on chronic kidney disease: Sylvester admitted with dislocation of left hip arthroplasty after surgery 2 days ago, he was taken to or and had correction of dislocation. Has baseline stage IV CKD with baseline creatinine 2.3-2.7, found to have a can admission creatinine to 4.0 this morning with metabolic acidosis. Has secondary hyperparathyroidism as well as anemia. --continue to hold Lasix, okay to continue on IV hydration for now --monitor renal panel in a.m. --Epogen 96362 unit x 1 dose today, continue calcitriol --If biacrb remain elevated, will start on Na bicarb Will follow Thank you for allowing me to participate in your patient's care. It was a pleasure to see Sylvester (2) Dislocation of left hip: (3) Hypertension: (4) Anemia due to chronic kidney disease: History of Present Illness Attending Physician: Angela Martin MD History of Present Illness Guanaco has stage IV CKD baseline creatinine 2.4-2.7, secondary to vascular disease. Has moderate degree proteinuria 1.4 g. has anemia and secondary hyperparathyroidism. He had left total arthroplasty and was discharged yesterday. At home while he was doing CIC, he had a fall and dislocation of JASON. came back to ER yesterday and he was taken to and had correction of dislocation. Currently was overall otherwise doing well, has mild pain but was able to move with walker. Has history of type A aortic dissection with resultant spinal ischemic and neurogenic bladder. He performs CIC 4-5 times daily. On admission he was found to have MARINO yesterday with creatinine 3.2 which worsened to 4.0, has metabolic acidosis. Has anemia, Hb 10.2. Has been having decent urine output. Blood pressure stable. He has been on Lasix 40 mg p.o. daily for many years which has been on hold since admission and he has been getting some IV hydration. H/o A fib on apixaban Allergies Allergy/AdvReac Type Severity Reaction Status Date / Time tetracycline Allergy Unknown HIVES Verified 01/15/20 01:35 morphine AdvReac Nausea Verified 01/15/20 01:35 Home Medications Home Medications Medication Instructions Recorded Confirmed Type amlodipine 5 mg tablet 5 mg PO QAM 04/06/18 01/15/20 History ferrous sulfate 325 mg (65 mg 325 mg PO QPM tab 04/06/18 01/15/20 History iron) tablet metoprolol succinate 50 mg 50 mg PO QAM 04/06/18 01/15/20 History tablet,extended release 24 hr minoxidil 10 mg tablet 10 mg PO QAM 04/06/18 01/15/20 History multivitamin with minerals 1 tab PO DAILY tab 04/06/18 01/15/20 History duloxetine 30 mg capsule,delayed 30 mg PO QAM cap 10/11/19 01/15/20 History release apixaban 2.5 mg tablet 2.5 mg PO BID #180 tab 11/25/19 01/15/20 Rx atorvastatin 20 mg tablet See Rx Instructions .ROUTE 12/13/19 01/15/20 Rx .COMPLEX #90 tablet alprazolam 0.25 mg tablet 0.25 mg PO DAILY PRN #30 tab 12/24/19 01/15/20 Rx furosemide 40 mg tablet 40 mg PO QAM #90 tab 12/24/19 01/15/20 Rx cholecalciferol (vitamin D3) 50 mcg PO QPM 12/31/19 01/15/20 History [Vitamin D3] methenamine hippurate 1 gram tablet 1 gm PO QAM #90 tab 01/05/20 01/15/20 Rx calcitriol 0.25 mcg capsule 0.25 mcg PO .QMWF #30 cap 01/07/20 01/15/20 Rx azelastine 0.15 % (205.5 mcg) 1 sprays INTNAS HS #30 ml 01/11/20 01/15/20 Rx nasal spray diclofenac sodium 75 mg PO BID 30 Days #60 tab 01/14/20 01/15/20 Rx oxycodone 5 mg PO Q6H #30 tab 01/14/20 01/15/20 Rx tramadol 50 mg PO Q6H PRN 01/15/20 01/15/20 History Patient History Medical History (Updated 01/15/20 @ 11:53 by Cheyanne Cano MD) Adult situational stress disorder Anemia due to chronic kidney disease Anxiety Arthritis Atrial fibrillation Follows with [facility] [place] (Dr. Jarvis) BPH with obstruction/lower urinary tract symptoms Chronic kidney disease, stage IV (severe) Follows with [facility] urology, nephrology/under surveillance, no dialysis at this time Chronic rhinitis Constipation History of CHF (congestive heart failure) Hyperlipidemia Hypertension Lumbar spinal stenosis (Chronic) Neurogenic bladder (Chronic) Self Catheterization since Aortic repair Osteoarthritis PTSD (post-traumatic stress disorder) POST AORTIC DISSECTION Sleep apnea CPAP Urinary retention Surgical History (Updated 01/15/20 @ 03:30 by Elkin Arias MD) Fusion of lumbar spine History of arthroscopy RT KNEE History of bladder surgery History of cardiac catheterization 2004 - no stents - 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 History of rhinoplasty History of tooth extraction History of total hip arthroplasty RT History of total knee replacement RT History of transurethral resection of prostate Nausea and vomiting after administration of anesthetic agent Social History Preferred Language: Kazakh Communication Ability: Effective Visual Impairment: Diminished Hearing Ability: Normal 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 Beliefs That Will Affect Care: None marital status: Current Living Situation: Spouse current occupational status: retired Other Information That Helps Us Care for You: No Feels Safe at Home: Yes Safety Concerns: Feels Safe At This Time Smoking Status: Never smoker Do You Dip or Chew Tobacco: No ; Second Hand Exposure: No ; Tobacco Cessation Education Requested by Patient: No Hx Alcohol Use: No Hx Substance Use: No Childhood Exposure to Second-Hand Smoke: Yes caffeine: Yes Dental Care, Regularly: Yes Physical Activity Frequency: Does not Exercise Physical Activity Frequency Comment: due to back issue Seatbelt Use: always Sunscreen Use: Yes Review of Systems Review of Systems: All systems reviewed & are unremarkable except as noted in HPI & below Physical Exam Constitutional: WD/WN, vitals as above well developed and well nourished; no acute distress Eyes: PERRL, conjunctivae normal, anicteric sclerae ENMT: external ear and nose normal, oropharynx normal Ears: no hearing impairment Neck: trachea midline Respiratory: normal respiratory effort, lungs clear to auscultation no cough Auscultation: no crackles, no rales and no wheezes Cardiovascular: Rate/Rhythm: + irregularly irregular Heart Sounds: normal S1 and normal S2 Extremities: no edema Gastrointestinal (Abdomen): normal bowel sounds, soft, nontender, no hepatosplenomegaly Percussion/Palpation: abdomen nontender, no guarding and abdomen not rigid Musculoskeletal: Extremities: extremities normal to inspection Gait: normal gait Skin: no rashes, warm and dry Neurologic: moves all extremities and awake Psychiatric: A+Ox3, euthymic affect Results & Data Vital Signs (Past 12 Hours) Vital Signs Temp Pulse Pulse Resp BP BP Pulse Ox 01/15/20 06:28 36.6 C 78 19 119/76 96 01/15/20 04:15 36.8 C 90 16 150/87 H 97 01/15/20 03:45 79 142/98 H 98 01/15/20 03:30 84 122/83 96 01/15/20 03:25 77 133/88 97 01/15/20 03:20 89 129/75 97 01/15/20 03:15 95 H 113/75 97 01/15/20 03:10 81 117/80 98 01/15/20 03:05 86 22 115/78 99 01/15/20 03:01 102 H 117/79 99 01/15/20 03:00 108 H 100 01/15/20 02:55 103 H 132/84 83 L 01/15/20 02:51 107 H 134/85 99 01/15/20 02:50 89 99 01/15/20 02:49 104 H 110/87 95 01/15/20 02:45 109 H 99 01/15/20 02:41 104 H 119/78 98 01/15/20 02:40 103 H 99 01/15/20 02:35 107 H 134/101 H 99 01/15/20 02:30 120/77 98 01/15/20 02:25 91 H 114/81 99 01/15/20 02:21 92 H 124/86 95 01/15/20 02:20 110 H 97 01/15/20 02:15 79 150/103 H 94 01/15/20 02:10 83 136/96 97 01/15/20 02:05 93 H 136/92 98 01/15/20 02:02 94 H 137/87 01/15/20 00:50 37.4 C 104 H 22 157/88 H 98 PG Care Time/CCT Total # of Minutes Spent Total Time Spent with Patient: Total time spent is greater than 50% in coordination of care (as documented) at patient's floor/unit and/or counseling patient: Coding Level of Care Code 84644 Inpt Consult Level 5 Diagnoses Acute kidney injury superimposed on chronic kidney disease N17.9; N18.9 Dislocation of left hip S73.005A Encounter type: initial encounter Hypertension I10 Hypertension type: essential hypertension Anemia due to chronic kidney disease N18.9; D63.1 (1) Dislocation of left hip Encounter type: initial encounter Qualified Code(s): S73.005A - Unspecified dislocation of left hip, initial encounter (2) Hypertension Hypertension type: essential hypertension Qualified Code(s): I10 - Essential (primary) hypertension
[2020-01-15] MEDS ORDERED: EPOETIN ALFA 20,000 UNITS/ML VIAL SQ ONE (11:57)
--- NOTE | 2020-01-15 12:33 | Orthopedic Progress Note ---
Date of Service January 15, 2020 Assessment & Plan (1) Status post total hip replacement, left: POD 2 - left total hip arthroplasty. S/p dislocation last evening. underwent closed reduction and readmission for acute renal failure. Will put in PT/OT consult - allowed out of bed, WBAT LLE with posterior hip precautions. Left hip flexion/abduction brace applied. Use walker to assist with ambulation. ICe to left hip and thigh as needed for pain/swelling Fermin stockings LLE at all times Posterior hip precautions and hip brace at all times. Patient taught on use of hip brace. Regular diet as tolerated Managament of medical problems as per medicine. Will continue to follow. All questions answered. Dr. Arias made aware of today's findings. Call with questions. Okay from ortho standpoint for discharge to home once medically stable. (2) Dislocation of left hip: Admission and Anticipated Discharge Date Admission Date: January 15, 2020 Subjective left hip with no pain today. States some groin pain this morning that radiates into his inner thigh. Denies numbness or tingling. No weakness left leg. Comfortable in bed, has been doing okay out of bed. Tolerating diet. Physical Exam Physical Exam: Left hip incision/dressing clean, dry, intact. Silverlon in place. Edema in left thigh. mildly tender left thigh. NO calf tenderness. Tolerates gentle log rolling of left hip. Strength left leg 5/5. Distal pulses 1+, distal sensation normal. Able to stand up out of bed. Applied hip brace. Results & Data ([facility]) Vital Signs (Past 12 Hours) Vital Signs Temp Pulse Pulse Resp BP BP Pulse Ox 01/15/20 06:28 36.6 C 78 19 119/76 96 01/15/20 04:15 36.8 C 90 16 150/87 H 97 01/15/20 03:45 79 142/98 H 98 01/15/20 03:30 84 122/83 96 01/15/20 03:25 77 133/88 97 01/15/20 03:20 89 129/75 97 01/15/20 03:15 95 H 113/75 97 01/15/20 03:10 81 117/80 98 01/15/20 03:05 86 22 115/78 99 01/15/20 03:01 102 H 117/79 99 01/15/20 03:00 108 H 100 01/15/20 02:55 103 H 132/84 83 L 01/15/20 02:51 107 H 134/85 99 01/15/20 02:50 89 99 01/15/20 02:49 104 H 110/87 95 01/15/20 02:45 109 H 99 01/15/20 02:41 104 H 119/78 98 01/15/20 02:40 103 H 99 01/15/20 02:35 107 H 134/101 H 99 01/15/20 02:30 120/77 98 01/15/20 02:25 91 H 114/81 99 01/15/20 02:21 92 H 124/86 95 01/15/20 02:20 110 H 97 01/15/20 02:15 79 150/103 H 94 01/15/20 02:10 83 136/96 97 01/15/20 02:05 93 H 136/92 98 01/15/20 02:02 94 H 137/87 01/15/20 00:50 37.4 C 104 H 22 157/88 H 98 (1) Dislocation of left hip Encounter type: initial encounter Qualified Code(s): S73.005A - Unspecified dislocation of left hip, initial encounter
[2020-01-15 15:33] LABS: BUN Creatinine Ratio 15.9 (10-20); Calcium 7.7 mg/dl (8.5-10.1); Creatinine Clr Calc Pharmacy 23.1 ml/min; Est GFR (African American) 18.3; Est GFR (Non-African American) 15.8; Potassium 3.3 mmol/L (3.5-5.1)
[2020-01-15] MEDS ORDERED: POTASSIUM CHLORIDE 20 MEQ TABCR PO STA (16:31)
[2020-01-15 16:39] LABS: Magnesium 2.4 mg/dl (1.8-2.4)
[2020-01-15 17:36] LABS: Appearance Urine Clear (Clear); Bacteria Urine Automated Negative (Negative); Bilirubin Urine Negative (Negative); Blood Urine 2+ (Negative); Color Urine Yellow; Epithelial Cell Urine Auto 20-30 /lpf (0-5); Glucose Urine UA Negative (Negative); Ketones Urine Negative (Negative); Leukocyte Esterase Urine Negative (Negative); Nitrite Urine Negative (Negative); Protein Urine 2+ (Negative); RBC Urine Automated 0-4 /hpf (0-4); Specific Gravity Urine 1.018 (1.000-1.030); Urobilinogen Urine Negative (Negative)
[2020-01-15] MEDS ORDERED: CHOLECALCIFEROL 1,000 UNITS 25 MCG TAB PO SCH (21:00)
[2020-01-15] MEDS ORDERED: FERROUS SULFATE 325 MG TAB PO SCH (21:00)
[2020-01-16] MEDS: SODIUM CHLORIDE 0.9% 1000ML 1,000 ML IV SCH (05:37)
[2020-01-16 06:34] LABS: Hematocrit (blood only) 25.6 % (42-52); Hemoglobin 8.5 g/dL (14.0-18.0); Mean Corpuscular Hemoglobin 30.9 pg (25-34); Mean Corpuscular Hgb Conc 33.2 g/dL (32-36); Mean Corpuscular Volume 93.1 fL (80-100); Mean Platelet Volume 8.6 fL (7.4-10.4); Platelet Count 178 K/uL (130-400); RDW Coefficient of Variation 13.9 % (11.5-14.5); RDW Standard Deviation 47.7 fL (36.4-46.3); Red Blood Count 2.75 M/uL (4.7-6.1); White Blood Count 4.18 K/uL (4.8-10.8)
[2020-01-16 07:07] LABS: Albumin Level 3.1 gm/dl (3.4-5.0); BUN Creatinine Ratio 18.1 (10-20); Calcium 7.5 mg/dl (8.5-10.1); Creatinine Clr Calc Pharmacy 25.9 ml/min; Est GFR (African American) 21.1; Est GFR (Non-African American) 18.2; Phosphorus 4.6 mg/dl (2.5-4.9); Potassium 3.7 mmol/L (3.5-5.1)
[2020-01-16] MEDS: DULOXETINE HCL 30 MG CAP PO SCH (08:31)
[2020-01-16] MEDS: APIXABAN 2.5 MG TAB PO SCH (08:31)
[2020-01-16] MEDS: ATORVASTATIN 20 MG TAB PO SCH (08:31)
[2020-01-16] MEDS: minoxidiL 2.5 MG TAB PO SCH (08:31)
[2020-01-16] MEDS: AMLODIPINE BESYLATE 5 MG TAB PO SCH (08:32)
[2020-01-16] MEDS: CEROVITE ADV FORMULA TAB PO SCH (08:32)
[2020-01-16] MEDS: METOPROLOL SUCC 50MG EXT REL TAB PO SCH (08:33)
--- NOTE | 2020-01-16 10:44 | Orthopedic Progress Note ---
Date of Service January 16, 2020 Assessment & Plan (1) Status post total hip replacement, left: POD 3 - left total hip arthroplasty. s/p dislocation POD #1. Underwent successful closed reduction and readmission with acute renal failure. Will put in PT/OT consult - allowed out of bed, WBAT LLE with posterior hip precautions. Left hip flexion/abduction brace applied. Use walker to assist with ambulation. Ice to left hip and thigh as needed for pain/swelling Fermin stockings LLE at all times Posterior hip precautions and hip brace at all times. Patient taught on use of hip brace. Regular diet as tolerated Management of medical problems as per medicine. Will continue to follow. All questions answered. Call with questions. Okay from ortho standpoint for discharge to home once medically stable. Follow- up with Dr. Wilson as previously scheduled. (2) Dislocation of left hip: Admission and Anticipated Discharge Date Admission Date: January 15, 2020 Subjective left hip with no pain today. States some groin pain this morning that radiates into his inner thigh. Denies numbness or tingling. No weakness left leg. Comfortable in bed, has been doing okay out of bed. Tolerating diet. Review of Systems Review of Systems: All systems reviewed & are unremarkable except as noted in HPI & below Physical Exam Physical Exam: LLE: Neurovascularly intact. Calf soft and non-tender. No pain with log roll hip. Results & Data ([facility]) Vital Signs (Past 12 Hours) Vital Signs Temp Pulse Pulse Resp BP BP Pulse Ox 01/16/20 07:10 36.6 C 85 16 124/82 99 01/16/20 03:40 75 16 95 01/16/20 00:51 84 16 96 01/15/20 22:45 36.6 C 80 16 119/72 96 (1) Dislocation of left hip Encounter type: initial encounter Qualified Code(s): S73.005A - Unspecified dislocation of left hip, initial encounter
--- NOTE | 2020-01-16 11:00 | Nephrology Progress Note ---
Date of Service January 16, 2020 Assessment & Plan (1) Acute kidney injury superimposed on chronic kidney disease: Sylvester admitted with dislocation of left hip arthroplasty after surgery 2 days ago, he was taken to or and had correction of dislocation. Has baseline stage IV CKD with baseline creatinine 2.3-2.7, found to have a can admission creatinine to 4.0 this morning with metabolic acidosis. Has secondary hyperparathyroidism as well as anemia. --discontinue IV fluids, encourage p.o. intake --continue to hold furosemide on discharge, if patient notice any significant weight gain, lower extremity edema, shortness of Breath or poorly-controlled blood pressure advised him to resume --check renal panel in 2-3 days after discharge, forward the result to Dr. Paul --continue calcitriol --OK to be discharged, has outpt nephrology f/u with Dr. Paul on 02/16/20 Will follow (2) Dislocation of left hip: (3) Hypertension: (4) Anemia due to chronic kidney disease: Admission and Anticipated Discharge Date Admission Date: January 15, 2020 Subjective Sylvester was seen and examined this morning. Overall feeling well, denies any specific symptoms. About to ambulate with walker and going to the bathroom. Renal function improved with creatinine down to 3.2, electrolyte acceptable. Blood pressure fair. Review of Systems Review of Systems: All systems reviewed & are unremarkable except as noted in HPI & below Physical Exam Constitutional: WD/WN, vitals as above well developed and well nourished; no acute distress Neck: trachea midline Respiratory: normal respiratory effort, lungs clear to auscultation no cough Auscultation: no crackles, no rales and no wheezes Cardiovascular: Rate/Rhythm: + irregularly irregular Heart Sounds: normal S1 and normal S2 Extremities: no edema Skin: no rashes, warm and dry Neurologic: moves all extremities and awake Psychiatric: A+Ox3, euthymic affect Results & Data ([facility]) Vital Signs (Past 12 Hours) Vital Signs Temp Pulse Pulse Resp BP Pulse Ox 01/16/20 07:10 36.6 C 85 16 124/82 99 01/16/20 03:40 75 16 95 01/16/20 00:51 84 16 96 PG Care Time/CCT Total # of Minutes Spent Total Time Spent with Patient: Total time spent is greater than 50% in coordination of care (as documented) at patient's floor/unit and/or counseling patient: Coding Level of Care Code 36365 Subseq Hosp Care Lvl 3 Diagnoses Acute kidney injury superimposed on chronic kidney disease N17.9; N18.9 Dislocation of left hip S73.005A Encounter type: initial encounter Hypertension I10 Hypertension type: essential hypertension Anemia due to chronic kidney disease N18.9; D63.1 (1) Dislocation of left hip Encounter type: initial encounter Qualified Code(s): S73.005A - Unspecified dislocation of left hip, initial encounter (2) Hypertension Hypertension type: essential hypertension Qualified Code(s): I10 - Essential (primary) hypertension
--- NOTE | 2020-01-16 12:03 | Discharge Summary ---
Date of Service January 16, 2020 Admission HPI Per Admitting Provider The patient is a 74-year-old male with a past medical history including urinary tract infection, abdominal aortic aneurysm, neurogenic bowel, sleep apnea, mitral vegetation, CKD stage IV, anxiety, adult situational stress disorder, atrial fibrillation, history gastric bypass, hyperlipidemia, hypertension, neurogenic bladder and PTSD. He had recently undergone a left hip arthroplasty by Dr. Wilson during admission from 01/12- 01/13. He was going from sitting to standing, and his leg became too weak to stand on, and fell on his left side. Upon arrival in ED, it was determined to physical examination imaging that he had a dislocated new left hip arthroplasty. He underwent sedation and relocation of hip by Dr. Iverson and Dr. Arias. Work-up in the ED also included laboratories, which revealed an acutely w orsening creatinine from preadmission 2.52, to the morning of discharge 3.22, and upon arrival in ED tonight 3.95. Admission Exam Per Admitting Provider The patient is awake, alert and oriented 3, well developed and well nourished, normocephalic and atraumatic, lying in bed and in no acute distress. HEENT--PERRL, EOMI, mucous membranes and oropharynx normal. Neck--supple. No JVD. No bruits. Thyroid normal, trachea midline, no adenopathy. Heart--normal S1 and S2. No murmurs, rubs or gallops. Lungs--clear bilaterally, no respiratory distress, no accessory muscle use. Abdomen--normal bowel sounds and soft. Nontender. Nondistended. Extremities--no cyanosis or clubbing. No edema. There are good distal pulses b/l. Dermatologic--normal skin turgor, normal color, no abnormal lymph nodes, no rash. Neurologic--limited exam due to hip dislocation Psychiatric--normal affect. Principal Diagnosis Dislocated LEFT Hip, MARINO Discharge Exam Constitutional WD/WN, vitals as above no acute distress Eyes + anicteric sclerae and PERRL ENMT Nose: no external nose abnormality Neck trachea midline, no thyromegaly Respiratory normal respiratory effort, lungs clear to auscultation Cardiovascular Rate/Rhythm: + irregularly irregular Extremities: normal capillary refill; no calf tenderness and no edema Gastrointestinal (Abdomen) normal bowel sounds, soft, nontender, no hepatosplenomegaly Musculoskeletal Head/Neck/Chest: normocephalic and head atraumatic brace to LLE dressing c/d/i NVI pulses 2+ dp, pt bilaterally Neurologic patellar DTR's 2+ bilat, sensation intact Psychiatric A+Ox3, euthymic affect Lymphatic no cervical or axillary lymphadenopathy Discharge Data Allergies Allergy/AdvReac Type Severity Reaction Status Date / Time tetracycline Allergy Unknown HIVES Verified 01/15/20 01:35 morphine AdvReac Nausea Verified 01/15/20 01:35 Consultations 01/15/20 02:05 Consult Orthopedic Surgery Stat ED Decision to Admit Stat 01/15/20 04:24 Consult Case Management - Discharge Planning Routine Consult Orthopedic Surgery Routine 01/15/20 04:32 Consult Nephrology Routine Ordered Studies 01/15/20 01:31 CT head/brain wo con Urgent HIP/PELVIS XRAY PELVIS XRAY Hospital Course (1) Dislocation of left hip: * Patient with recent L JASON on 01/[address] Wilson, discharged on 01/13 with patient falling and dislocating same, found to have an MARINO at discharge with Cr 3.95, up from Cr 2.52 (baseline 2.3-2.7) admitted to the hospitalist service * Successful closed reduction in ER with Dr. Arias * Ortho consulted--> brace, ice, fermin stockings, hip precautions Follow up with ortho outpatient as previously scheduled PT/OT WBAT with BRACE AT ALL TIMES except to shower/dress * Eliquis for DVT proph Discharged with home PT with plans for PT through [place] eventually (2) Metabolic acidosis: * Discharged with MARINO following surgery, presented with anion gap metabolic acidosis, Cr 3.96 with bicarb 19 * IVF given with resolution, discontinued * Nephrology consulted -- given epogen 44563 units x 1, rec continuing calcitriol for hyperparathyroidism * Repeat BMP without evidence of acidosis -- Cr still above baseline at 3.2 (baseline 2.3-2.7) but ok with nephrology to discharge and hold his lasix for now. To repeat BMP in 3 days. Instructed to resume for weight gain, edema, shortness of breath or hypertension * BMP results to be copied to Dr. Paul -- follow up appt scheduled on 02/15 (3) Acute kidney injury superimposed on chronic kidney disease: * Follows with Dr. Paul * Improving -- see above * Avoid NSAIDs (4) Anemia due to chronic kidney disease: * Noted --h/h 8.5/25.6, received IVF and epogen as above. Repeat labs in 3 days outpatient with results to Dr. Paul and PCP (5) Fall: * Mechanical, getting out of car. See above (6) Status post total hip replacement, left: * See above (7) Hypertension: * Chronic. Stable 124/82 * Continued metoprolol, minoxidil --> held lasix at discharge as above per nephrology rec (8) Sleep apnea: * BiPAP while inpatient (9) Hyperlipidemia: * Continue atorvastatin (10) PTSD (post-traumatic stress disorder): * secondary to AAA dissection/repair (11) Neurogenic bladder: * Following AAA repair (12) CKD (chronic kidney disease), stage IV: * See above (13) DVT prophylaxis: * Eliquis 2.5mg BID Fermin hose Discharged home with home PT Total Time Total Time Spent Total Time Spent (In Minutes): 60 Discharge Plan Discharge Items Patient Disposition: Home - Home Health Services Reason For Visit: MARINO ON CKD, HIP DISLOCATION Discharge Diagnosis: Acute Kidney Injury, Hip Dislocation Condition on Discharge: Fair Goals: You have been hospitalized for an acute medical problem. During your stay at [facility], we have made an effort to correct the problem that brought you to the hospital while keeping you as comfortable as possible. Medications were used to bring your condition under control and your discharge instructions will include directions for any medications you should take after leaving the hospital. Please make sure you see your Primary Care Provider as part of your follow up plan. Activity: As commented below Activity Comment: as per Ortho with brace Non-emergency contact: Primary Care Provider and Surgeon Call non-emergency contact if: you have any medication questions, your symptoms worsen and your pain is concerning for you Follow-up/Referrals: Gilbert Paul DO [Physician] - Jasiel Pineda DO [Primary Care Provider] - Cuong Wilson MD [Physician] - Diet: Heart Healthy Ambulatory Orders: Basic Metabolic Panel (Routine) Timeframe: 3 Days Location: Determined by Patient Ordered By: Sofia Soni Complete Blood Count no Diff (Timed) Timeframe: 3 Days Location: Determined by Patient Ordered By: Sofia Soni Addtl Attending Provider Instructions: You have been hospitalized for an acute hip dislocation. You were seen in the emergency department and this was reduced back into anatomical alignment. It is recommended by orthopedics that you wear hip brace at all times except to bath/get dressed to prevent further complications. You were also found to have an acute kidney injury, likely from surgery/blood loss/dehydration from surgery. You were given IV fluids and your lasix was held. Per recommendations from Nephrology, you are to continue to hold you lasix for now unless you notice increased leg swelling/shortness of breath/weight gain. Repeat labs have been ordered to obtain in the next 3 days to ensure you are continuing to improve, as your creatinine is still slightly above baseline at 3.2. You have also been ordered a repeat CBC to be obtained to make sure your hemoglobin improves. It was lower than day prior, however you have had IV fluids which can contribute to dilution of these values. Please follow up with your primary care provider in the next week to review these results. Keep your follow up appointment with Dr. Paul on 02/15 as scheduled previously. Please return to the emergency room if you have any increased pain, shortness of breath, chest pain or for any symptoms that are concerning for you. It has been a pleasure being apart of the medical team providing for you while you have been in the hospital. 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 Wear hip brace at all times. May remove to bath and get dressed Ice to left hip and left thigh as needed for pain/swelling. Allowed for range of motion left knee and left ankle. Use walker to assist with ambulation Elevate legs as needed for swelling Fermin stockings on during the day, off at night. Continue blood thinners as instructed by Dr. Wilson Regular diet as tolerated Colace for stool softener (over the counter) while on pain medication. Pain medication as prescribed by Dr. Wilson. Call [phone] with any questions or concerns. Follow up with Dr. Wlison as scheduled for your post operative visit Silverlon dressing on left hip as previously instructed. Pending Studies at Discharge: No Stand-Alone Forms: [employer], Opioid Pain Management Medications and DC Order Prescriptions: Continued metoprolol succinate [Toprol XL] 50 mg tablet extended release 24 hr 50 mg PO QAM RF: 0 amlodipine 5 mg tablet 5 mg PO QAM RF: 0 ferrous sulfate 325 mg (65 mg iron) tablet 325 mg PO QPM RF: 0 minoxidil 10 mg tablet 10 mg PO QAM RF: 0 multivitamin with minerals tablet 1 tab PO DAILY RF: 0 Eliquis 2.5 mg tablet 2.5 mg PO BID Qty: 180 RF: 3 atorvastatin 20 mg tablet See Rx Instructions .ROUTE .COMPLEX Qty: 90 RF: 3 alprazolam 0.25 mg tablet 0.25 mg PO DAILY PRN (Reason: anxiety) Qty: 30 RF: 2 calcitriol 0.25 mcg capsule 0.25 mcg PO .QMWF Qty: 30 RF: 2 azelastine 0.15 % (205.5 mcg) spray,non-aerosol 1 sprays INTNAS HS Qty: 30 RF: 2 methenamine hippurate 1 gram tablet 1 gm PO QAM Qty: 90 RF: 3 duloxetine 30 mg capsule,delayed release(DR/EC) 30 mg PO QAM RF: 0 cholecalciferol (vitamin D3) [Vitamin D3] 50 mcg (2,000 unit) Tablet 50 mcg PO QPM RF: 0 oxycodone 5 mg tablet 5 mg PO Q6H Qty: 30 RF: 0 diclofenac sodium 75 mg tablet,delayed release (DR/EC) 75 mg PO BID 30 Days Qty: 60 RF: 1 tramadol 50 mg Tablet 50 mg PO Q6H PRN (Reason: Pain) RF: 0 Discontinued furosemide [Lasix] 40 mg tablet 40 mg PO QAM Qty: 90 RF: 3 Discharge Orders: Discharge Order (Routine); Ordered 01/16/20 Ordered By: Sofia Lewis/Other Patient Handouts: DVT Complications, DVT Post Op Prevention Admission Data Admit Date/Time: 01/15/20 02:40 Attending Provider: Angela Martin Admit Provider: Jaden Hay Primary Care Provider: Jasiel Pineda Other Providers: Elkin Arias ; Jaden Hay ; Gilbert Paul ; [facility] Other Interventions: Discharge Summary Assessment (RN) Last Done: 01/16/20 11:13 DC Date/Time DO NOT enter until pt leaves facility: 06/21/20 13:46 Supervising Physician Co-Signing Physician Notes PA Supervision Note: PA Supervision Note: I personally saw and examined the patient. I verified all [place] points and agree with BRIGIDO Soni with the following exceptions and/or additions: Patient feeling much improved, hip brace is in place. Renal function is improving, is making urine. Denies chest pain or shortness of breath. Vitals reviewed Gen: AAOx3, NAD HEENT: Anicteric sclerae, EOMI CV: RRR no mgr nl S1S2 Pulm: CTAB no wcr Abd: +BS soft NT ND no masses or hernias Ext: No edema, hip brace in place on the left Skin: No rashes, warm/dry Labs reviewed 74-year-old male here with fall with left hip dislocation after recent JASON, with acute kidney injury in the setting of CKD stage IV Hydrated and renal function is improved, had reduction of hip with placement of brace Hemoglobin with drop from previous likely due to hemodilution, no evidence of bleeding -Stable for discharged home Needs close follow-up with blood work as an outpatient Coding Level of Care Code D/C Day Management >30 mins Diagnoses Dislocation of left hip S73.005A Encounter type: initial encounter Metabolic acidosis E87.2 Acute kidney injury superimposed on chronic kidney disease N17.9; N18.9 Anemia due to chronic kidney disease N18.9; D63.1 Fall W19.XXXA Encounter type: initial encounter Status post total hip replacement, left Z96.642 Hypertension I10 Hypertension type: essential hypertension Sleep apnea G47.30 Hyperlipidemia E78.5 PTSD (post-traumatic stress disorder) F43.10 Neurogenic bladder N31.9 CKD (chronic kidney disease), stage IV N18.4 DVT prophylaxis Z29.9
[2020-01-17] MEDS ORDERED: CALCITRIOL 0.25 MCG CAPSULE PO SCH (09:00)
== END 2020-01-16 13:46 | disposition home health service (06) | DRG 560 ==
LOC: ED 00:42 → 3W 02:40 → SUATTDRO 02:40 → 3W 03:58

== ENCOUNTER 2020-01-19 09:43 | Inpatient (IN) ==
--- NOTE | 2020-01-18 09:01 | Anesthesiology Consultation ---
Date of Service January 18, 2020 Assessment & Plan (1) Encounter for pre-operative examination: Chart Review Chart Review: Acceptable Risk for Surgery (pending DOS labs and evaluation by anesthesia ) and Patient NOT seen in Pre Admission Testing Surgeon ordered CMP and CBC with diff for AM of surgery- will need to confirm results prior to proceeding with surgery. Per nursing interview 01/17/20- no recent travel. Had Covid testing done 01/10/20 prior to left JASON- results negative. Surgeon not repeating Covid testing prior to surgery tomorrow. Will have anesthesia reassess AM of surgery but at this time- pt considered low risk- can proceed with rule. Pt had left JASON on 01/13/20- discharged 01/14/20 from hospital. Pt then fell at home and was transported via ambulance to [facility] ER on 01/15/20. Hip was reduced by Dr. Arias in ER. Elevated creatine noted in ER- felt secondary to recent surgery, dehydration and NSAID usage. Admitted to [facility] 01/15/20-01/16/20. Per discharge summary- had successful closed reduction in ER of dislocated left hip. Noted to be in MARINO (baseline creat usually 2.3-2.7) and metabolic acidosis. Nephro consulted- okay with discharge but patient Lasix on hold. Will need to monitor BMP. Anemia noted - received IVF and epogen- again recommended recheck. Left JASON 01/13/20= Done under SAB at L3-4. No anesthesia issues noted Per PCP note prior to left JASON on 01/11/20= "Yes" patient medically cleared for surgery. As per multiple specialists, is medically optimized. Per PCP office on 01/10/20- acceptable risk for left JASON. Has gotten clearance from cardio and nephro. Pt understands he is at higher risk for CV and renal complications Per nephro note prior to left JASON on 01/06/20= baseline creat 2.3-2.7. Labs were reviewed prior to surgery and felt to be acceptable. Recommended one month follow up Seen by cardio prior to left JASON on 12/29/19= He is currently stable and asymptomatic from a cardiovascular standpoint with no anginal symptoms. He has no evidence of CHF or significant valvular abnormality. His heart rate and blood pressure are adequately controlled. Given this information, the patient is at an acceptable risk to proceed with upcoming surgery without any additional cardiovascular testing or intervention. He may hold his Eliquis for 2-3 days prior to surgery and resume once safe from a surgical standpoint. ecommend close monitoring and avoidance of hypotension, hypertension, tachycardia, hypoxia, and significant anemia throughout the perioperative period to reduce myocardial oxygen demand and meet myocardial oxygen delivery. History Surgery Operation Date: 01/19/20 11:45 Proposed Procedures p Left Total Hip Arthroplasty Revision - Cuong Wilson MD Height/Weight Height: 6 ft Weight: 99.79 kg Allergies Allergy/AdvReac Type Severity Reaction Status Date / Time tetracycline Allergy Unknown HIVES Verified 01/17/20 16:46 morphine AdvReac Nausea Verified 01/17/20 16:46 Medications Home Medications Medication Instructions Recorded Confirmed Last Taken amlodipine 5 mg tablet 5 mg PO QAM 04/06/18 01/17/20 01/13/20 08:00 ferrous sulfate 325 mg (65 mg 325 mg PO QPM tab 04/06/18 01/17/20 01/12/20 23:00 iron) tablet metoprolol succinate 50 mg 50 mg PO QAM 04/06/18 01/17/20 01/13/20 08:00 tablet,extended release 24 hr minoxidil 10 mg tablet 10 mg PO QAM 04/06/18 01/17/20 01/13/20 08:00 multivitamin with minerals 1 tab PO DAILY tab 04/06/18 01/17/20 01/12/20 08:00 duloxetine 30 mg capsule,delayed 30 mg PO QAM cap 10/11/19 01/17/20 01/13/20 08:00 release apixaban 2.5 mg tablet 2.5 mg PO BID #180 tab 11/25/19 01/17/20 01/09/20 23:00 atorvastatin 20 mg tablet See Rx Instructions .ROUTE 12/13/19 01/17/20 01/12/20 23:00 .COMPLEX #90 tablet alprazolam 0.25 mg tablet 0.25 mg PO DAILY PRN #30 tab 12/24/19 01/17/20 Unknown cholecalciferol (vitamin D3) 50 mcg PO QPM 12/31/19 01/17/20 01/12/20 08:00 [Vitamin D3] methenamine hippurate 1 gram tablet 1 gm PO QAM #90 tab 01/05/20 01/17/20 01/12/20 08:00 calcitriol 0.25 mcg capsule 0.25 mcg PO .QMWF #30 cap 01/07/20 01/17/20 01/12/20 08:00 oxycodone 5 mg PO Q6H #30 tab 01/14/20 01/17/20 Unknown tramadol 50 mg PO Q6H PRN 01/15/20 01/17/20 01/14/20 23:15 50 mg azelastine 1 sprays INTNAS HS PRN 01/17/20 01/17/20 Unknown Past Medical History Medical History (Updated 01/18/20 @ 09:00 by Mildred Pineda PA-C) Adult situational stress disorder Anemia due to chronic kidney disease Anxiety Arthritis Atrial fibrillation Follows with [facility] cardiology (Dr. Jarvis) BPH with obstruction/lower urinary tract symptoms Chronic kidney disease, stage IV (severe) Follows with [facility] urology, nephrology/under surveillance, no dialysis at this time Constipation History of CHF (congestive heart failure) Hyperlipidemia Hypertension Lumbar spinal stenosis Neurogenic bladder Self Catheterization since Aortic repair Osteoarthritis PTSD (post-traumatic stress disorder) POST AORTIC DISSECTION Sleep apnea CPAP Urinary retention Past Family History Family History Grandmother Family history of diabetes mellitus Mother Gallbladder disease Father Prostate cancer Myocardial infarction Hypertension Other Family history non-contributory No family history of adverse response to anesthesia Denies family history of Ovarian cancer Breast cancer Past Surgical History Surgical History (Updated 01/18/20 @ 09:41 by Mildred Pineda PA-C) Fusion of lumbar spine History of arthroscopy RT KNEE History of bladder surgery History of cardiac catheterization 2004 - no stents - [facility] in [place] History of cardioversion mult History of cataract surgery RT/LEFT History of colonoscopy History of esophagogastroduodenoscopy (EGD) History of gastric bypass 2010 History of lumbar fusion History of open reduction and internal fixation (ORIF) procedure RT WRIST 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 History of rhinoplasty History of tooth extraction History of total hip arthroplasty RT; RECENTLY HAD LEFT HIP REPLACED 01/13/20 History of total knee replacement RT History of transurethral resection of prostate Nausea and vomiting after administration of anesthetic agent Social History Smoking Status: Never smoker Do You Dip or Chew Tobacco: No Hx Alcohol Use: No Hx Substance Use: No substance use type: does not use Testing Laboratory Results Laboratory Tests 12/23/19 01/15/20 01/16/20 11:08 00:56 05:58 WBC 4.18 L Hgb 8.5 L Hct 25.6 L Plt Count 178 PT 11.9 INR 1.1 APTT 30.2 Sodium Potassium Chloride Carbon Dioxide BUN Creatinine Glucose Hemoglobin A1c 5.5 01/16/20 05:58 WBC Hgb Hct Plt Count PT INR APTT Sodium 141 Potassium 3.7 Chloride 111 H Carbon Dioxide 22 BUN 58 H Creatinine 3.20 H D Glucose 94 Hemoglobin A1c Electrocardiogram Date: 12/22/19 Findings: + AFIB @ (73) LAD. Nonspecific intraventricular block. Non specific T wave abnormality, probably digitalis effect. Echocardiogram Date: 04/09/19 LV Function: normal EF 55-60%. No RWMA. Mild cLVH. LA moderately dilated. Patent foramen ovale is suspected. RA moderately dilated. Moderate TR. Trace to mild MR. No significant changes compared to 01/07/18 per report. Other Testing Chest CT 10/13/19= Expected findings following repair of the ascending aorta with graft. Suboptimal evaluation given the lack of IV contrast but no abnormalities identified. Top normal caliber aortic arch (3.9 cm) with normal caliber descending thoracic aorta. Moderate cardiomegaly. Central airways are patent. There is no consolidation. No pneumothorax or pleural effusion is noted. A few tiny lower lung nodules are unchanged since abdominal CT of May 15, 2018. These are benign.
[~2020-01-19 09:43] MED LIST changes: +BUPIVACAINE 0.5 % 5 MG/1 ML MPF 30ML VIAL ONE; -BUPIVACAINE 0.5 % 5 MG/1 ML PF 10ML VIAL ONE; +SODIUM CHLORIDE 0.9% 1,000 ML IV SCH; -SODIUM CHLORIDE 0.9% 1000ML 1,000 ML IV SCH; -TRANEXAMIC ACID 1,000 MG **IV Intra-op IV SCH; -TRANEXAMIC ACID 1,000 MG **IV Pre-op IV SCH
[2020-01-19 10:21] LABS: Basophils # (auto) 0.03 K/uL (0-0.2); Basophils % (auto) 0.8 %; Hematocrit (blood only) 27.3 % (42-52); Hemoglobin 9.2 g/dL (14.0-18.0); Immature Granulocytes # (auto) 0.01 K/uL (0.00-0.02); Immature Granulocytes % (auto) 0.3 %; Lymphocytes # (auto) 0.64 K/uL (1.2-3.4); Mean Corpuscular Hemoglobin 31.6 pg (25-34); Mean Corpuscular Volume 93.8 fL (80-100); Mean Platelet Volume 8.4 fL (7.4-10.4); Monocytes % (auto) 12.5 %; Neutrophils # (auto) 2.62 K/uL (1.4-6.5); Neutrophils % (auto) 65.4 %; Platelet Count 252 K/uL (130-400); RDW Standard Deviation 47.5 fL (36.4-46.3); Red Blood Count 2.91 M/uL (4.7-6.1)
[2020-01-19 10:37] LABS: Albumin Level 3.5 gm/dl (3.4-5.0); BUN Creatinine Ratio 13.9 (10-20); Calcium 8.7 mg/dl (8.5-10.1); Creatinine Clr Calc Pharmacy 31.1 ml/min; Est GFR (African American) 27.3; Est GFR (Non-African American) 23.5; Potassium 3.2 mmol/L (3.5-5.1)
[2020-01-19 10:40] LABS: Albumin Globulin Ratio 1.1 (0.9-2); Bilirubin,Total 1.7 mg/dl (0.2-1); Globulin 3.1 gm/dl (2.5-4.0); Total Protein 6.6 gm/dl (6.4-8.2)
[2020-01-19 10:46] LABS: Mean Corpuscular Hgb Conc 33.7 g/dL (32-36)
--- NOTE | 2020-01-19 11:15 | History & Physical Report ---
Date of Service January 19, 2020 Assessment & Plan (1) Dislocation of left hip: Assessment & Plan (1) Failed Left total hip arthroplasty: Plan: Patient is scheduled to undergo this procedure with Dr. Cuong Rinaldi at the [facility] as an inpatient on 2019. Risks and complications of the procedure such as: Infection, bleeding, pain, scarring, nerve blood vessel damage, weakness, wound problems, stiffness, incomplete relief of symptoms, hardware failure, hardware loosening, wear, fracture, tendon or ligament injury, dislocation, leg length inequality, blood clots, embolism, heart attack, stroke and were explained to the patient at his visit today by Dr. Rinaldi. Informed consent to perform the procedure was obtained. Patient also understands the risks of undergoing a procedure during the COVID-19 pandemic. Currently patient is asymptomatic and he will be tested for COVID-19 prior to the procedure. EKG, labs and medical clearance are all up to date. Patient verbalized understanding of all information provided during today's visit, thanks for the care he received, and states if he has questions or concerns prior to his procedure today, he will contact clinic. PRE-OP Diagnosis: Failed Left Total Hip Arthroplasty Planned Procedure: Left Total Hip Arthroplasty Encounter type: initial encounter Qualified Code(s): S73.005A - U nspecified dislocation of left hip, initial encounter History of Present Illness Chief Complaint: Left hip pain following dislocation Primary Care Provider: Jasiel Pineda DO HPI: 74 y.o. male s/p L JASON 01/13/[address] Wilson, d/c from hospital 01/14/2020, fell while self catheterizing last evening. He had pain in his groin prior to his fall. He was unable to stand and was brought to ER where x-rays showed a dislocated L JASON. Current Home Meds: (Last Updated 12/21 11:15) (ALPRAZolam 0.25 mg oral tablet) 0.25 mg PO PRN: as needed for anxiety(Cymbalta 30 mg oral delayed release capsule) 30 mg PO Daily(acetaminophen 500 mg oral tablet) 1,000 mg PO q 8h(amLODIPine 5 mg oral tablet) 5 mg PO Daily(apixaban 2.5 mg oral tablet) 2.5 mg PO bid(atorvastatin 20 mg oral tablet) 20 mg PO Dailynasal (azelastine 205.5 mcg/inh (0.15%) nasal spray) PLACE 1 SPRAY INTO EACH NOSTRIL AT BEDTIMEvitamin D (calcium with vitamin D 500 mg) 1 tab PO bid(cholecalciferol 1000 intl units oral tablet) 5,000 Int_Unit PO Dailytopical ([place] Nail Lacquer 8% topical solution) 1 appl topical Daily apply to right toenailssulfate (ferrous sulfate 325 mg (65 mg elemental iron) oral delayed release tablet) 325 mg PO Daily(Diflucan 150 mg oral tablet) 150 mg PO ONCE Repeat 1 tab PO once weekly for 4 weeks(furosemide 40 mg oral tablet) 40 mg PO Daily(Toprol-XL 50 mg oral tablet, extended release) 50 mg PO Daily(minoxidil 10 mg oral tablet) 10 mg PO Dailywith minerals (Centrum Silver oral tablet) 1 tab PO Daily(oxyCODONE 5 mg oral capsule) 5 mg PO q6h PRN: as needed for pain(Ultram 50 mg oral tablet) 50 mg PO q12h PRN: as needed for pain 400 mg max Past Med/Surg History Medical History Acute on chronic renal insufficiency (Resolved) Adult situational stress disorder Anxiety Arthritis Atrial fibrillation Followed by Cardiology BPH with obstruction/lower urinary tract symptoms Followed by Urology Chronic kidney disease, stage IV (severe) Followed by Nephrology Chronic rhinitis Constipation Fusion of lumbar spine Hyperlipidemia Hypertension Impotence, organic Lumbar radiculopathy Lumbar spinal stenosis (Chronic) Mitral regurgitation Neurogenic bladder (Chronic) Self Catheterization since Aortic repair. 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 History of rhinoplasty History of tooth extraction History of total hip arthroplasty RT History of total knee replacement RT Nausea and vomiting after administration of anesthetic agent Family History Grandmother Family history of diabetes mellitus Mother Gallbladder disease Father Hypertension Prostate cancer Myocardial infarction Other Family history non-contributory Denies family history of Ovarian cancer Breast cancer Social History Preferred Language: Bhutanese Communication Ability: Effective Visual Impairment: Diminished Hearing Ability: Normal Wharf Operator Required: No Beliefs That Will Affect Care: None marital status: Current Living Situation: Spouse current occupational status: retired Feels Safe at Home: Yes Smoking Status: Never smoker Second Hand Exposure: No ; Hx Alcohol Use: No Hx Substance Use: No Childhood Exposure to Second-Hand Smoke: Yes caffeine: Yes Dental Care, Regularly: Yes Physical Activity Frequency: Does not Exercise Physical Activity Frequency Comment: due to back issue Seatbelt Use: always Sunscreen Use: Yes Review of Systems All systems reviewed & are unremarkable except as noted in HPI & below Results & Data Diagnostic Findings Studies (relevant to the procedure): MRI that was done on December 09, 2019, is reviewed. This shows severe degenerative changes of the left hip with bone marrow edema within the femoral head and acetabulum. There is a moderate effusion. Degenerative changes are noted in the labrum. Allergies Allergy/AdvReac Type Severity Reaction Status Date / Time tetracycline Allergy Mild HIVES Verified 01/19/20 10:17 morphine AdvReac Nausea Verified 01/19/20 10:17 Home Medications Home Medications Medication Instructions Recorded Confirmed Type amlodipine 5 mg tablet 5 mg PO QAM 04/06/18 01/19/20 History ferrous sulfate 325 mg (65 mg 325 mg PO QPM tab 04/06/18 01/19/20 History iron) tablet metoprolol succinate 50 mg 50 mg PO QAM 04/06/18 01/19/20 History tablet,extended release 24 hr minoxidil 10 mg tablet 10 mg PO QAM 04/06/18 01/19/20 History multivitamin with minerals 1 tab PO DAILY tab 04/06/18 01/19/20 History duloxetine 30 mg capsule,delayed 30 mg PO QAM cap 10/11/19 01/19/20 History release apixaban 2.5 mg tablet 2.5 mg PO BID #180 tab 11/25/19 01/19/20 Rx atorvastatin 20 mg tablet See Rx Instructions .ROUTE 12/13/19 01/19/20 Rx .COMPLEX #90 tablet alprazolam 0.25 mg tablet 0.25 mg PO DAILY PRN #30 tab 12/24/19 01/19/20 Rx cholecalciferol (vitamin D3) 50 mcg PO QPM 12/31/19 01/19/20 History [Vitamin D3] methenamine hippurate 1 gram tablet 1 gm PO QAM #90 tab 01/05/20 01/19/20 Rx calcitriol 0.25 mcg capsule 0.25 mcg PO .QMWF #30 cap 01/07/20 01/19/20 Rx oxycodone 5 mg PO Q6H #30 tab 01/14/20 01/19/20 Rx tramadol 50 mg PO Q6H PRN 01/15/20 01/19/20 History azelastine 1 sprays INTNAS HS PRN 01/17/20 01/19/20 History Past Med/Surg History Medical History Adult situational stress disorder Anemia due to chronic kidney disease Anxiety Arthritis Atrial fibrillation Follows with [facility] cardiology (Dr. Jarvis) BPH with obstruction/lower urinary tract symptoms Chronic kidney disease, stage IV (severe) Follows with [facility] urology, nephrology/under surveillance, no dialysis at this time Constipation History of CHF (congestive heart failure) Hyperlipidemia Hypertension Lumbar spinal stenosis Neurogenic bladder Self Catheterization since Aortic repair Osteoarthritis PTSD (post-traumatic stress disorder) POST AORTIC DISSECTION Sleep apnea CPAP Urinary retention Surgical History Fusion of lumbar spine History of arthroscopy RT KNEE History of bladder surgery History of cardiac catheterization 2004 - no stents - [facility] in [place] History of cardioversion mult History of cataract surgery RT/LEFT History of colonoscopy History of esophagogastroduodenoscopy (EGD) History of gastric bypass 2010 History of lumbar fusion History of open reduction and internal fixation (ORIF) procedure RT WRIST 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 History of rhinoplasty History of tooth extraction History of total hip arthroplasty RT; RECENTLY HAD LEFT HIP REPLACED 01/13/20 History of total knee replacement RT History of transurethral resection of prostate Nausea and vomiting after administration of anesthetic agent Family History Grandmother Family history of diabetes mellitus Mother Gallbladder disease Father Prostate cancer Myocardial infarction Hypertension Other Family history non-contributory No family history of adverse response to anesthesia Denies family history of Ovarian cancer Breast cancer Social History Preferred Language: Bhutanese Communication Ability: Effective Visual Impairment: Diminished Hearing Ability: Normal Wharf Operator Required: No Beliefs That Will Affect Care: None marital status: Current Living Situation: Spouse current occupational status: retired Other Information That Helps Us Care for You: No Feels Safe at Home: Yes Safety Concerns: Feels Safe At This Time Smoking Status: Never smoker Do You Dip or Chew Tobacco: No ; Second Hand Exposure: Yes (hx -- used to smoke) ; Tobacco Cessation Education Requested by Patient: No Hx Alcohol Use: No Hx Substance Use: No Childhood Exposure to Second-Hand Smoke: Yes caffeine: Yes Dental Care, Regularly: Yes Physical Activity Frequency: Does not Exercise Physical Activity Frequency Comment: due to back issue Seatbelt Use: always Sunscreen Use: Yes Review of Systems All systems reviewed & are unremarkable except as noted in HPI & below Physical Exam Physical Exam: Physical Exam: (relevant to the procedure, including heart and lung evaluation) General: Alert and oriented x3 with proper grooming and hygiene Eyes: Pupils are equal and reactive to light with accommodation. Extraocular movements are intact Throat: Posterior oropharynx is clear with absence of edema, erythema or exudate Cardiac: Irregularly irregular rate and rhythm with no murmurs or gallops appreciated Lungs: Clear to auscultation with no wheezing, rales or rhonchi Abdomen: Slightly obese, nondistended, nontender with normal active bowel sounds Extremities: Left Hip; patient has mild tenderness over the trochanteric bursa to palpation. His range of motion is limited to flexion at 90 degrees due to brace, external rotation to 0 degrees, internal rotation to 0 degrees. Movements refer groin pain in addition to the lateral-sided hip pain. Lyle's test is equivocal. Positive Stinchfield test. NV intact in Left LE. Neuro: Cranial nerves II through XII are intact with no motor or sensory deficit Skin: Normal in appearance with no open skin areas or discharge Results & Data Vital Signs (Past 12 Hours) Vital Signs Temp Pulse Resp BP Pulse Ox 01/19/20 10:26 37.1 C 99 H 18 125/79 98 Supervising Physician Co-Signing Physician Notes Patient is at risk for recurrent dislocation due to presumed rupture of his posterior capsular repair from his post-operative dislocation, in addition to his history of falls, proximal muscle weakness, and L3-5 posterio spinal fusion. Revision total hip arthroplasty indicated to place a dual-mobility acetabular component and re-repair his posterior capsule to decrease the risk of recurrent dislocation. All questions answered. Informed consent signed.
[2020-01-19] MEDS ORDERED: LIDOCAINE HCL 2% 2 ML VIAL/AMP(20MG/ML) INFIL ONE (11:48)
[2020-01-19] MEDS ORDERED: fentaNYL citrate 100 MCG/2 ML VIAL ONE ×2 (11:48→12:29)
[2020-01-19] MEDS ORDERED: PROPOFOL IV EMULSION 10 MG/ML 20 ML VIAL IV ONE (11:48)
[2020-01-19] MEDS ORDERED: MIDAZOLAM HCL 1 MG/ML 2ML VIAL ONE (11:48)
[2020-01-19] MEDS ORDERED: EPINEPHrine INJ 1 MG/ML AMP ONE (12:05)
[2020-01-19] MEDS ORDERED: BUPIVACAINE 0.5 % 5 MG/1 ML MPF 30ML VIAL ONE (12:05)
[2020-01-19] MEDS ORDERED: DEXAMETHASONE SOD INJ 4 MG/ML VIAL ONE ×2 (12:05→12:29)
--- NOTE | 2020-01-19 12:05 | Anesthesiology Consultation ---
Date of Service January 19, 2020 Assessment & Plan (1) Encounter for pre-operative examination: Chart Review Chart Review: Acceptable Risk for Surgery and Patient NOT seen in Pre Admission Testing Consults Requested none ASA ASA3 Proposed Anesthesia Anesthesia Type: General Regional Regional Laterality: Left Site: other (fascia iliaca) Risk / Benefits Reviewed With: PT / POA / Parent / Guardian, Accepts Plan and Informed Consent Obtained History Surgery Operation Date: 01/19/20 11:45 Proposed Procedures p Left Total Hip Arthroplasty Revision - Cuong Wilson MD Height/Weight Height: 6 ft Weight: 113.625 kg Allergies Allergy/AdvReac Type Severity Reaction Status Date / Time tetracycline Allergy Mild HIVES Verified 01/19/20 10:17 morphine AdvReac Nausea Verified 01/19/20 10:17 Medications Home Medications Medication Instructions Recorded Confirmed Last Taken amlodipine 5 mg tablet 5 mg PO QAM 04/06/18 01/19/20 01/19/20 09:00 ferrous sulfate 325 mg (65 mg 325 mg PO QPM tab 04/06/18 01/19/20 01/18/20 20:00 iron) tablet metoprolol succinate 50 mg 50 mg PO QAM 04/06/18 01/19/20 01/19/20 09:00 tablet,extended release 24 hr minoxidil 10 mg tablet 10 mg PO QAM 04/06/18 01/19/20 01/19/20 09:00 multivitamin with minerals 1 tab PO DAILY tab 04/06/18 01/19/20 01/18/20 09:00 duloxetine 30 mg capsule,delayed 30 mg PO QAM cap 10/11/19 01/19/20 01/19/20 09:00 release apixaban 2.5 mg tablet 2.5 mg PO BID #180 tab 11/25/19 01/19/20 01/17/20 09:00 atorvastatin 20 mg tablet See Rx Instructions .ROUTE 12/13/19 01/19/20 01/18/20 20:00 .COMPLEX #90 tablet alprazolam 0.25 mg tablet 0.25 mg PO DAILY PRN #30 tab 12/24/19 01/19/20 Unknown cholecalciferol (vitamin D3) 50 mcg PO QPM 12/31/19 01/19/20 01/18/20 20:00 [Vitamin D3] methenamine hippurate 1 gram tablet 1 gm PO QAM #90 tab 01/05/20 01/19/20 01/18/20 09:00 calcitriol 0.25 mcg capsule 0.25 mcg PO .QMWF #30 cap 01/07/20 01/19/20 01/17/20 09:00 oxycodone 5 mg PO Q6H #30 tab 01/14/20 01/19/20 Unknown tramadol 50 mg PO Q6H PRN 01/15/20 01/19/20 01/18/20 23:30 azelastine 1 sprays INTNAS HS PRN 01/17/20 01/19/20 Unknown Active Medications Generic Name Dose Route Start Last Admin Trade Name Freq PRN Reason Stop Dose Admin Acetaminophen 1,000 mg 01/19/20 06:00 01/19/20 10:51 Tylenol PO 01/19/20 18:00 1,000 mg PREOP BENTON Administration Celecoxib 200 mg 01/19/20 06:00 01/19/20 10:51 Celebrex PO 01/19/20 18:00 200 mg PREOP BENTON Administration Dexamethasone 8 mg 01/19/20 06:00 01/19/20 10:52 Decadron PO 01/19/20 18:00 8 mg PREOP BENT[place] Administration Famotidine 20 mg 01/19/20 06:00 01/19/20 10:51 Pepcid PO 01/19/20 18:00 20 mg PREOP BENTON Administration Lactated Ringer's 1,000 mls @ 60 mls/hr 01/19/20 06:00 01/19/20 10:46 Lr IV 01/19/20 22:39 Not Given .[id number] BENTON Sodium Chloride 1,000 mls @ 15 mls/hr 01/19/20 06:00 01/19/20 10:42 Nss 1000ml IV 01/20/20 05:59 15 mls/hr .Q24H BENTON Administration Metoclopramide HCl 10 mg 01/19/20 06:00 01/19/20 10:51 Reglan PO 01/19/20 18:00 10 mg PREOP BENTON Administration Scopolamine 1.5 mg 01/19/20 06:00 01/19/20 10:52 Transderm-Scop TD 01/19/20 18:00 1.5 mg PREOP BENT[place] Administration Tramadol HCl 50 mg 01/19/20 06:00 01/19/20 10:51 Ultram PO 01/19/20 18:00 50 mg PREOP BENTON Administration NPO Date Last Intake of Fluids: 01/18/20 Time Last Intake of Fluids: 22:00 Last Intake of Fluids Comment: sip with meds this am 0900 Date Last Intake of Solids: 01/18/20 Time Last Intake of Solids: 19:00 Past Medical History Medical History 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 Jarvis) BPH with obstruction/lower urinary tract symptoms Chronic kidney disease, stage IV (severe) Follows with [facility] urology, nephrology/under surveillance, no dialysis at this time Constipation History of CHF (congestive heart failure) Hyperlipidemia Hypertension Lumbar spinal stenosis Neurogenic bladder Self Catheterization since Aortic repair Osteoarthritis PTSD (post-traumatic stress disorder) POST AORTIC DISSECTION Sleep apnea CPAP Urinary retention Exercise / Class Metabolic Activity II 4-5 Yardwork/Stairs/Walk up hill Past Family History Family History Grandmother Family history of diabetes mellitus Mother Gallbladder disease Father Prostate cancer Myocardial infarction Hypertension Other Family history non-contributory No family history of adverse response to anesthesia Denies family history of Ovarian cancer Breast cancer Past Surgical History Surgical History Fusion of lumbar spine History of arthroscopy RT KNEE History of bladder surgery History of cardiac catheterization 2004 - no stents - [facility] in [place] History of cardioversion mult History of cataract surgery RT/LEFT History of colonoscopy History of esophagogastroduodenoscopy (EGD) History of gastric bypass 2010 History of lumbar fusion History of open reduction and internal fixation (ORIF) procedure RT WRIST 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 History of rhinoplasty History of tooth extraction History of total hip arthroplasty RT; RECENTLY HAD LEFT HIP REPLACED 01/13/20 History of total knee replacement RT History of transurethral resection of prostate Nausea and vomiting after administration of anesthetic agent Past Anesthesia History No Hx of Anesthesia Complications and No Family Hx of Anesthesia Complications History of PONV No Hx of PONV and No Hx of Motion Sickness Social History Smoking Status: Never smoker Do You Dip or Chew Tobacco: No Hx Alcohol Use: No Hx Substance Use: No substance use type: does not use Physical Exam Vital Signs Last Vital Signs Temp 37.1 C 01/19/20 10:26 Pulse 85 01/19/20 11:15 Resp 18 01/19/20 11:15 BP 125/79 01/19/20 11:15 Pulse Ox 100 01/19/20 11:15 Constitutional + obese ENMT Mouth: no dentition abnormality Thyromental Distance: > or= 3.5 Finger Breadths Mallampati Class: II Neck normal visual inspection and + facial hair Respiratory normal respiratory effort Auscultation: lungs clear to auscultation bilaterally Cardiovascular Rate/Rhythm: regular rate and regular rhythm Psychiatric Orientation: alert Testing Laboratory Results 01/19/20 10:02 01/19/20 10:02
[2020-01-19] MEDS ORDERED: CISATRACURIUM BESYLATE IV SOLN 2 MG/ML 10 ML VIAL IV ONE (12:29)
[2020-01-19] MEDS ORDERED: ONDANSETRON INJ 2 MG/ML 2 ML VIAL ONE (12:29)
[2020-01-19] MEDS ORDERED: ORTHO JOINT ANESTHETIC ONE (12:37)
[2020-01-19] MEDS ORDERED: ESMOLOL HCL INJ 10 MG/ML 10ML VIAL IV ONE (14:52)
--- NOTE | 2020-01-19 15:11 | Post Operative Brief Note ---
Immediate Post Op Note v1 Date of Surgery January 19, 2020 Pre & Post Diagnosis Operation Date: 01/19/20 11:45 Pre-Op Diagnosis: Failed Left Total Hip Arthroplasty Post-Op Diagnosis: Failed Left Total Hip Arthroplasty I identified the patient and participated in the time-out.: Yes Procedure Operation Date: 01/19/20 11:45 Actual Procedures p Left Total Hip Arthroplasty Revision--Uncemented(Left) - Cuong Wilson MD Surgeon Cuong Wilson MD Media Manager Donavan Jeffery MD and TAWNYA Parekh PA-C Estimated Blood Loss 100 Findings Consistent with Post-Op Diagnosis Drains Perry Catheter Anesthesia Type General Complications none Disposition Accompanied Patient To Recovery: No Disposition: Recovery Room
[2020-01-19] MEDS ORDERED: MAGNESIUM HYDROXIDE SUSP 30 ML UDC PO PRN (15:12)
[2020-01-19] MEDS ORDERED: NALOXONE HCL 0.4 MG/1 ML VIAL/CARP IV PRN (15:12)
[2020-01-19] MEDS ORDERED: TAMSULOSIN HCL 0.4 MG CAP PO PRN (15:12)
[2020-01-19] MEDS ORDERED: TRAMADOL HCL 50 MG TABLET PO PRN ×2 (15:12→15:21)
[2020-01-19] MEDS ORDERED: DiphenhydrAMINE HCL 50 MG/ML VIAL IV PRN (15:12)
[2020-01-19] MEDS ORDERED: ALUMINUM/MAGNESIUM SUSP 30 ML UDC PO PRN (15:12)
[2020-01-19] MEDS ORDERED: ONDANSETRON INJ 2 MG/ML 2 ML VIAL IV PRN (15:12)
[2020-01-19] MEDS ORDERED: bisacodyL 10 MG SUPP PR PRN (15:12)
[2020-01-19] MEDS ORDERED: METOCLOPRAMIDE HCL INJ 5 MG/ML 2 ML VIAL IV PRN (15:12)
--- NOTE | 2020-01-19 15:12 | Operative Report ---
Post Operative Report Pre & Post Diagnosis Operation Date: 01/19/20 11:45 Pre-Op Diagnosis: Failed Left Total Hip Arthroplasty Post-Op Diagnosis: Failed Left Total Hip Arthroplasty I identified the patient and participated in the time-out.: Yes Procedure Operation Date: 01/19/20 11:45 Actual Procedures p Left Total Hip Arthroplasty Revision--Uncemented(Left) - Cuong Wilson MD Surgeon Cuong Wilson MD Electrical Manager Donavan Jeffery MD; Magdalena Parekh PA-C Estimated Blood Loss 100 Findings Consistent with Post-Op Diagnosis Specimens none Complications none Disposition Accompanied Patient To Recovery: Yes Disposition: Recovery Room Description of Procedure I was present during the entire case assisting with retraction, wound closure, dressing and abduction pillow placement. Fellow and myself served as assistants for this case. Please see Dr. Wilson procedure note for specifics of the case. I attest to the content of the Intraoperative Record and any orders documented therein. Any exceptions are noted below.
[2020-01-19] MEDS ORDERED: ALPRAZolam 0.25 MG TABLET PO PRN (15:21)
--- NOTE | 2020-01-19 15:33 | Operative Report ---
Post Operative Report Pre & Post Diagnosis Operation Date: 01/19/20 11:45 Pre-Op Diagnosis: Failed Left Total Hip Arthroplasty Post-Op Diagnosis: Failed Left Total Hip Arthroplasty I identified the patient and participated in the time-out.: Yes Procedure Operation Date: 01/19/20 11:45 Actual Procedures p Left Total Hip Arthroplasty Revision--Uncemented(Left) - Cuong Wilson MD Surgeon Cuong Wilson MD Dry Transfer Man Donavan Jeffery MD; Magdalena Parekh PA-C Estimated Blood Loss 100 Findings Consistent with Post-Op Diagnosis Specimens None Complications none Disposition Accompanied Patient To Recovery: Yes Disposition: Recovery Room Description of Procedure Lateral decubitus position, standard prep and drape, time-out Left Total Hip Arthroplasty Revision--Uncemented Please see Dr Wilson's procedure notes for specific details I was present throughout the case, assisted for wound closure and transferred the patient to PACU in stable condition I attest to the content of the Intraoperative Record and any orders documented therein. Any exceptions are noted below.
--- NOTE | 2020-01-19 15:37 | XRay Report ---
XR hip 1V LT w pelvis CLINICAL HISTORY: IN PACU - A/P PELVIS and LATERAL HIP COMPARISON: 01/15/2020 DISCUSSION: Bilateral total hip arthroplasties.. Event a potential revision of the left hip prostheti c. Could contact between prosthetic and underlying bone. Expected soft tissue postoperative change. There is no evidence for soft tissue swelling. IMPRESSION: Anatomic alignment post total left hip arthroplasty revision ACT 112: Negative or not required by law. The above report was generated using voice recognition software. It may contain grammatical, syntax or spelling errors. Electronically signed by: Abram Wray M.D. 01/19/2020 3:35 PM
--- NOTE | 2020-01-19 15:40 | Anesthesiology Progress Note ---
Date of Service January 19, 2020 Anesthesia Post Procedure Vital Signs Vital Signs: Temp Pulse Pulse Resp BP BP Pulse Ox 01/19/20 15:30 92 H 21 129/92 95 01/19/20 15:20 87 12 124/88 95 01/19/20 15:12 37.1 C 92 H 14 129/86 100 01/19/20 11:15 85 18 125/79 100 01/19/20 10:26 37.1 C 99 H 18 125/79 98 Pain Intensity Left Hip: Pain Intensity: 2 Transfer of Care Handoff Completed per policy Notes Mental Status: alert / awake / arousable Patient Amnestic to Procedure: Yes Nausea / Vomiting: adequately controlled Pain: adequately controlled Airway Patency, RR, SpO2: stable & adequate BP & HR: stable & adequate Hydration State: stable & adequate Anesthetic Complications: no major complications apparent and Pt Satisfied with anesthetic care Notes: The patient is awake and comfortable. His vital signs are stable.
--- NOTE | 2020-01-19 16:04 | Operative Report (OR) ---
DATE OF OPERATION: 01/19/2020 PREOPERATIVE DIAGNOSIS: Left total hip arthroplasty instability. POSTOPERATIVE DIAGNOSES: Left total hip arthroplasty instability and loose femoral component. OPERATION PERFORMED: Revision left total hip arthroplasty. SURGEON: Cuong Wilson MD. CABLE ARMORER OPERATOR SURGEONS: Donavan Jeffery MD and Manisha Parekh PA-C. ESTIMATED BLOOD LOSS: 100 mL. SPECIMENS: None. COMPLICATIONS: None. IMPLANTS: 1. Naye Trident Tritanium hemispherical shell size 60 mm. 2. MDM cementless liner with a 46 mm inner diameter. 3. Christian X3 polyethylene insert, outer diameter of 46 mm and inner diameter 28. 4. DePuy [place] 8 high-offset stem. 5. Biolox delta 28 mm +1.5 offset head. INDICATIONS: Mr. Escobedo is a 74-year-old gentleman with a medical history of aortic dissection with a resultant bladder incompetence requiring self-catheterizations of his bladder as well as some proximal muscle weakness, who is also status post a posterior spinal fusion from L3-L5. I performed a total hip arthroplasty on him on last week. He was doing well on postoperative day 1 and was felt to be safe to be discharged. Unfortunately, while he was at home self-catheterizing himself, he fell and was unable to get up. He was brought to the Emergency Room and was found to have dislocated his left total hip. He underwent a closed reduction in the Emergency Room and was admitted over the weekend. He was noted to have some acute kidney injury at that time. He was subsequently discharged home on Friday. I had a long discussion with the patient about his risk factors for a repeat dislocation. I was first of all concerned that he ruptured his posterior capsular repair from his dislocation. His other nonmodifiable risk factors such as posterior spinal fusion and his proximal muscle weakness put him further at risk for recurrent dislocations. I gave him the option of attempting to treat this conservatively with a hip brace versus early intervention to switch him to a dual mobility acetabular component for the purpose of decreasing his risk of dislocation as well as to redo his posterior capsular repair. Also, due to the acute nature of his injury, this would be at lower risk for bone loss secondary to the implants not having yet ingrown. After reviewing all the risks and benefits of surgery, the patient elected to proceed. All questions were answered. Informed consent was signed. OPERATIVE FINDINGS: After the wound was opened up, the patient did in fact have a disruption of his posterior capsular repair. This was re-repaired at the conclusion of the case. Once the hip was dislocated, the femoral component was found to be grossly loose secondary likely to his fall. The components from his previous surgery were removed without difficulty. I upsized him from 58 to a 60 cup, which was a [place] dual mobility cup. We then upsized his femoral component to a size 8 high-offset stem. This sat slightly more proud than the size 7 stem he previously had in place, and therefore, we downsized his offset to a +1.5 on the femoral head. DESCRIPTION OF THE OPERATION: The patient was identified in the preoperative holding area where his surgical site was marked. He was brought back to the main operating room where he was placed on the operating room table and general anesthesia was administered. A Perry catheter was placed and he was moved up in the lateral decubitus position. Axillary roll was placed. All bony prominences were padded. Perioperative antibiotics were administered. He was prepped and draped in normal sterile fashion. Prior to incision, a multidisciplinary timeout was called. All in the room were in agreement. We began by opening up his previous incision and extending it proximally and distally by another 2 cm. Suture material from his surgery last week was then removed in the subcutaneous and dermal layers. The fascial incision remained closed and this was similarly opened up and the suture was removed. A Charnley bow was then placed. I released the proximal margin of his gluteal sling to facilitate exposure. Hematoma underneath the fascia was evacuated with irrigation and suction. We then identified his posterior capsule, which had been disrupted from his dislocation. I then removed the sutures from his previous posterior capsular repair. The hip was then dislocated. The femoral component was grossly loose. Metal femoral head was removed followed by the femoral stem. The acetabulum was then exposed. The polyethylene liner was removed without difficulty, then the screw into the ilium was removed. The metal shell for the 58 mm pinnacle cup was then removed without difficulty. At this point, I irrigated out the acetabulum. The [place] 58 mm reamer was placed in the socket. It was a little wobbly peripherally, so, I decided to upsize to a 60 mm cup. I reamed him up by ones to a 60, which gave us a good healthy cancellous bleeding bone and a good peripheral fit. We then opened up the 60 mm Tritanium metal Trident hemispherical shell. This was impacted down into position with 25 degrees of anteversion and 45 degrees of lateral opening. The metal liner was then impacted down into position. Next, the femur was exposed. There was a pseudomembrane that had developed within the proximal calcar region that was removed with a curette. We trialled a 7 broach, but similar to the stem, this appeared to have loosened from his fall. Therefore, I reamed him up to a size 8 [place]. The broach was placed and he had a good torsional stability, although the broach sat a couple millimeters more proud than his previous implant. We therefore started trialing with a +1.5 mm offset head as well as a high offset neck. The hip was atraumatically reduced. He had excellent stability exam with symmetric leg lengths. No impingement in extension and external rotation. Stable in the sleeper position and could be internally rotated 75 degrees with hip flexed to 90 degrees. I was very happy with the stability exam. The femoral trial was then removed. The femoral canal was irrigated and dried. The real size 8 high-offset [place] femoral stem was opened up and was impacted down into position. It sat at the same level as the broach. Therefore, the +1.5 mm offset 28 mm diameter ceramic femoral head was joined with the 46 mm polyethylene dual mobility ball. After these had been locked together on the back table, the femoral head component was then impacted down into position on the trunnion, which had been cleaned and dried. The hip was atraumatically reduced. We then began to close. The posterior capsule and short external rotators were repaired using #2 Vicryl using the same bone tunnels in the posterior aspect of the greater trochanter. The fascia was run with looped #1 PDS. The subcutaneous layer was closed with running #1 PDS. The deep dermal layer was closed with 2-0 Vicryl. The skin was closed with 3-0 subcuticular Monocryl. Steri-Strips were applied followed by Silverlon dressing. The patient was carefully rolled supine. His leg lengths were checked and were symmetric. He was placed in the abduction pillow and transferred to the recovery room in stable condition. POSTOPERATIVE COURSE: The patient will be admitted to the hospital from the recovery room. We will plan on keeping him at least 2 nights in the hospital to make sure he is mobilizing safely given our concern for fall. He may need eventual placement into a snf or rehab facility from the hospital. We will resume his Eliquis for DVT prophylaxis. I attest to the content of the Intraoperative Record and any orders documented therein. Any exceptions are noted below. DEBRA
[2020-01-19] MEDS: SODIUM CHLORIDE 0.9% 1000ML 1,000 ML IV SCH (17:20)
[2020-01-19] MEDS: CHECK SCOPOLAMINE PATCH PLACEMENT SCH (17:21)
[2020-01-19] MEDS: KETOROLAC TROMETHAMINE 15 MG/ML VIAL IV SCH (17:22)
[2020-01-19] MEDS ORDERED: OXYCODONE HCL IR 5 MG TAB (IMMEDIATE RELEASE) PO SCH (18:30)
[2020-01-19] MEDS ORDERED: OXYCODONE HCL IR 5 MG TAB (IMMEDIATE RELEASE) PO PRN (18:30)
[2020-01-19] MEDS: DOCUSATE SODIUM 100 MG CAP PO SCH (20:09)
[2020-01-19] MEDS: CEFAZOLIN 2000MG 2,000 MG/15 ML SYR IV SCH (20:09)
[2020-01-19] MEDS: ACETAMINOPHEN 500 MG TAB PO SCH (20:10)
[2020-01-19] MEDS: FERROUS SULFATE 325 MG TAB PO SCH (20:11)
[2020-01-19] MEDS: CHOLECALCIFEROL 1,000 UNITS 25 MCG TAB PO SCH (20:11)
[2020-01-19] MEDS: SENNA 8.6 MG TAB PO SCH (20:12)
[2020-01-19] MEDS ORDERED: ASPIRIN 81 MG ECTAB PO SCH (21:00)
[2020-01-20] MEDS: SODIUM CHLORIDE 0.9% 1000ML 1,000 ML IV SCH (00:28)
[2020-01-20] MEDS: KETOROLAC TROMETHAMINE 15 MG/ML VIAL IV SCH ×2 (00:30→06:09)
[2020-01-20] MEDS: CHECK SCOPOLAMINE PATCH PLACEMENT SCH ×4 (00:30→23:44)
[2020-01-20] MEDS: CEFAZOLIN 2000MG 2,000 MG/15 ML SYR IV SCH (04:52)
[2020-01-20] MEDS: ACETAMINOPHEN 500 MG TAB PO SCH ×3 (06:09→21:35)
[2020-01-20 07:09] LABS: Hematocrit (blood only) 23.5 % (42-52); Hemoglobin 7.7 g/dL (14.0-18.0); Immature Granulocytes # (auto) 0.03 K/uL (0.00-0.02); Immature Granulocytes % (auto) 0.5 %; Lymphocytes # (auto) 0.42 K/uL (1.2-3.4); Lymphocytes % (auto) 6.7 %; Mean Corpuscular Hemoglobin 30.6 pg (25-34); Mean Corpuscular Hgb Conc 32.8 g/dL (32-36); Mean Corpuscular Volume 93.3 fL (80-100); Mean Platelet Volume 8.5 fL (7.4-10.4); Monocytes # (auto) 0.52 K/uL (0.11-0.59); Monocytes % (auto) 8.3 %; Neutrophils # (auto) 5.29 K/uL (1.4-6.5); Neutrophils % (auto) 84.5 %; Platelet Count 235 K/uL (130-400); RDW Coefficient of Variation 14.3 % (11.5-14.5); RDW Standard Deviation 46.4 fL (36.4-46.3); Red Blood Count 2.52 M/uL (4.7-6.1); White Blood Count 6.26 K/uL (4.8-10.8)
[2020-01-20 07:31] LABS: Calcium 8.1 mg/dl (8.5-10.1); Creatinine Clr Calc Pharmacy 32.2 ml/min; Est GFR (African American) 26.4; Est GFR (Non-African American) 22.8; Potassium 4.1 mmol/L (3.5-5.1)
[2020-01-20] MEDS ORDERED: dexAMETHasone 4 MG TAB PO SCH (08:00)
[2020-01-20 08:31] LABS: Poikilocytosis Present
[2020-01-20] MEDS: CEROVITE ADV FORMULA TAB PO SCH (08:46)
[2020-01-20] MEDS: APIXABAN 2.5 MG TAB PO SCH ×2 (08:47→21:34)
[2020-01-20] MEDS: METOPROLOL SUCC 50MG EXT REL TAB PO SCH (08:47)
[2020-01-20] MEDS: DULOXETINE HCL 30 MG CAP PO SCH (08:47)
[2020-01-20] MEDS: AMLODIPINE BESYLATE 5 MG TAB PO SCH (08:47)
[2020-01-20] MEDS: METHENAMINE HIPPURATE 1 GM TAB PO SCH (08:47)
[2020-01-20] MEDS: ATORVASTATIN 20 MG TAB PO SCH (08:47)
[2020-01-20] MEDS: DOCUSATE SODIUM 100 MG CAP PO SCH ×2 (08:47→21:35)
[2020-01-20] MEDS ORDERED: MULTIVITAMIN TAB PO SCH (09:00)
[2020-01-20] MEDS: minoxidiL 2.5 MG TAB PO SCH (10:01)
--- NOTE | 2020-01-20 11:55 | Orthopedic Progress Note ---
Date of Service January 20, 2020 Assessment & Plan (1) S/P revision of total hip: PT/OT while in house Total hip precautions DVT prophy with Carmenza and Eliquis Pain control with PO meds Discuss Inpatient rehab with Case Management Abduction pillow use Ice with EZ wrap. Will cont to follow while inpatient with planned discharge tomorrow Appreciate eval by medicine service. Admission and Anticipated Discharge Date Admission Date: January 19, 2020 Subjective This 74 yo M is day 1 s/p revision left total hip arthroplasty. Patient is doing very well today. States that he did 3 laps with PT this AM and has no pain. We discussed inpatient rehab but patient states that he has to talk it over with his . Currently he is getting ready to go for a walk with OT. Outer dressing was removed and Silverlon is clean, dry and intact. He denies pain, CP, SOB, nausea, vomiting, fever, chills, sweats, lethargy or weakness. Review of Systems Review of Systems: All systems reviewed & are unremarkable except as noted in Subjective Physical Exam Physical Exam: Left Hip: dressing clean, dry and intact. Able to actively perform SLRT and dorsi/plantar flex foot. Minimal pain with very light passive internal / external hip rotation. Calf soft and supple. Quad strength 3/5. NV intact. Results & Data ([facility]) Vital Signs (Past 12 Hours) Vital Signs Temp Pulse Pulse Resp BP Pulse Ox 01/20/20 07:49 36.5 C 97 H 18 119/73 94 01/20/20 03:09 84 16 96 01/20/20 03:03 36.6 C 98 H 18 129/81 97 Laboratory Results Lab Results 01/19/20 01/19/20 01/19/20 Range/Units 10:02 10:02 10:02 WBC 4.00 L (4.8-10.8) K/uL RBC 2.91 L (4.7-6.1) M/uL Hgb 9.2 L (14.0-18.0) g/dL Hct 27.3 L (42-52) % MCV 93.8 (80-100) fL MCH 31.6 (25-34) pg MCHC 33.7 (32-36) g/dL RDW Std Deviation 47.5 H (36.4-46.3) fL RDW Coeff of Hector 14.0 (11.5-14.5) % Plt Count 252 (130-400) K/uL MPV 8.4 (7.4-10.4) fL Immature Gran % (Auto) 0.3 % Neut % (Auto) 65.4 % Lymph % (Auto) 16.0 % Howard % (Auto) 12.5 % Eos % (Auto) 5.0 % Baso % (Auto) 0.8 % Neut # (Auto) 2.62 (1.4-6.5) K/uL Lymph # (Auto) 0.64 L (1.2-3.4) K/uL Howard # (Auto) 0.50 (0.11-0.59) K/uL Eos # (Auto) 0.20 (0-0.5) K/uL Baso # (Auto) 0.03 (0-0.2) K/uL Immature Gran # (Auto) 0.01 (0.00-0.02) K/uL Poikilocytosis Sodium 142 (136-145) mmol/L Potassium 3.2 L (3.5-5.1) mmol/L Chloride 112 H (98-107) mmol/L Carbon Dioxide 22 (21-32) mmol/L Anion Gap 8.0 (3-11) BUN 36 H (7-18) mg/dl Creatinine 2.59 H (0.6-1.4) mg/dl Est Cr Clr Drug Dosing 31.1 ml/min Est GFR ( Amer) 27.3 Est GFR (Non-Af Amer) 23.5 BUN/Creatinine Ratio 13.9 (10-20) Glucose 98 (70-99) mg/dl Calcium 8.7 (8.5-10.1) mg/dl Total Bilirubin 1.7 H (0.2-1) mg/dl AST 49 H (15-37) U/L ALT 15 (12-78) U/L Alkaline Phosphatase 82 (45-117) U/L Total Protein 6.6 (6.4-8.2) gm/dl Albumin 3.5 (3.4-5.0) gm/dl Globulin 3.1 (2.5-4.0) gm/dl Albumin/Globulin Ratio 1.1 (0.9-2) Blood Type O Positive Antibody Screen NEGATIVE Crossmatch See Detail 01/20/20 01/20/20 Range/Units 06:41 06:41 WBC 6.26 (4.8-10.8) K/uL RBC 2.52 L (4.7-6.1) M/uL Hgb 7.7 L (14.0-18.0) g/dL Hct 23.5 L (42-52) % MCV 93.3 (80-100) fL MCH 30.6 (25-34) pg MCHC 32.8 (32-36) g/dL RDW Std Deviation 46.4 H (36.4-46.3) fL RDW Coeff of Hector 14.3 (11.5-14.5) % Plt Count 235 (130-400) K/uL MPV 8.5 (7.4-10.4) fL Immature Gran % (Auto) 0.5 % Neut % (Auto) 84.5 % Lymph % (Auto) 6.7 % Howard % (Auto) 8.3 % Eos % (Auto) 0.0 % Baso % (Auto) 0.0 % Neut # (Auto) 5.29 (1.4-6.5) K/uL Lymph # (Auto) 0.42 L (1.2-3.4) K/uL Howard # (Auto) 0.52 (0.11-0.59) K/uL Eos # (Auto) 0.00 (0-0.5) K/uL Baso # (Auto) 0.00 (0-0.2) K/uL Immature Gran # (Auto) 0.03 H (0.00-0.02) K/uL Poikilocytosis Present Sodium 140 (136-145) mmol/L Potassium 4.1 D (3.5-5.1) mmol/L Chloride 112 H (98-107) mmol/L Carbon Dioxide 20 L (21-32) mmol/L Anion Gap 8.0 (3-11) BUN 40 H (7-18) mg/dl Creatinine 2.66 H (0.6-1.4) mg/dl Est Cr Clr Drug Dosing 32.2 ml/min Est GFR ( Amer) 26.4 Est GFR (Non-Af Amer) 22.8 BUN/Creatinine Ratio 15.0 (10-20) Glucose 139 H (70-99) mg/dl Calcium 8.1 L (8.5-10.1) mg/dl Total Bilirubin (0.2-1) mg/dl AST (15-37) U/L ALT (12-78) U/L Alkaline Phosphatase (45-117) U/L Total Protein (6.4-8.2) gm/dl Albumin (3.4-5.0) gm/dl Globulin (2.5-4.0) gm/dl Albumin/Globulin Ratio (0.9-2) Blood Type Antibody Screen Crossmatch
--- NOTE | 2020-01-20 16:48 | Hospitalist Consultation ---
Date of Consultation January 20, 2020 Assessment & Plan (1) S/P revision of total hip: L JASON 01/18 DVT proph, pain control per primary (2) CKD (chronic kidney disease), stage IV: Patient's kidney function appears to be at baseline (2.3-2.7) at 2.[address] Paul outpatient Discontinue Celebrex and Toradol and avoid nephrotoxins BMP am (3) Acute blood loss anemia: Hgb 7.7 today, continue to monitor, no symptoms on my assessment, hemodynamically stable Repeat cbc am (4) Anemia due to chronic kidney disease: As above (5) Atrial fibrillation: Continue home amlodipine, metoprolol (6) Hyperlipidemia: Continue home atorvastatin (7) Hypertension: Continue home metoprolol, minoxidil and amlodipine (8) Neurogenic bladder: Patient straight caths at home - may continue here Supervising Physician Co-Signing Physician Notes I supervised Paris Logan NP on this patient's care. I examined the patient o n 01/20/2020 independently of her. I discussed the plan of care with her with the plan being as written in her note except for any following changes/exceptions: None. Doing well after surgery. Already up and on his feet with RN. Holding NSAIDs to prevent worsening kidney function. Discharge per surgery. History of Present Illness Attending Physician: Cuong Wilson MD History of Present Illness Mr. Escobedo is s/p left JASON 01/18. He is feeling well today, has no complaints, pain is well controlled. Pmhx: aortic dissection, neurogenic bladder, CKD, htn, atrial fibrillation, gastric bypass, Social: retired, , never smoker, no alcohol Allergies Allergy/AdvReac Type Severity Reaction Status Date / Time tetracycline Allergy Mild HIVES Verified 01/19/20 10:17 morphine AdvReac Nausea Verified 01/19/20 10:17 Home Medications Home Medications Medication Instructions Recorded Confirmed Type amlodipine 5 mg tablet 5 mg PO QAM 04/06/18 01/19/20 History ferrous sulfate 325 mg (65 mg 325 mg PO QPM tab 04/06/18 01/19/20 History iron) tablet metoprolol succinate 50 mg 50 mg PO QAM 04/06/18 01/19/20 History tablet,extended release 24 hr minoxidil 10 mg tablet 10 mg PO QAM 04/06/18 01/19/20 History multivitamin with minerals 1 tab PO DAILY tab 04/06/18 01/19/20 History duloxetine 30 mg capsule,delayed 30 mg PO QAM cap 10/11/19 01/19/20 History release apixaban 2.5 mg tablet 2.5 mg PO BID #180 tab 11/25/19 01/19/20 Rx atorvastatin 20 mg tablet See Rx Instructions .ROUTE 12/13/19 01/19/20 Rx .COMPLEX #90 tablet alprazolam 0.25 mg tablet 0.25 mg PO DAILY PRN #30 tab 12/24/19 01/19/20 Rx cholecalciferol (vitamin D3) 50 mcg PO QPM 12/31/19 01/19/20 History [Vitamin D3] methenamine hippurate 1 gram tablet 1 gm PO QAM #90 tab 01/05/20 01/19/20 Rx calcitriol 0.25 mcg capsule 0.25 mcg PO .QMWF #30 cap 01/07/20 01/19/20 Rx oxycodone 5 mg PO Q6H #30 tab 01/14/20 01/19/20 Rx tramadol 50 mg PO Q6H PRN 01/15/20 01/19/20 History azelastine 1 sprays INTNAS HS PRN 01/17/20 01/19/20 History Patient History Medical History 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 Jarvis) BPH with obstruction/lower urinary tract symptoms Chronic kidney disease, stage IV (severe) Follows with [facility] urology, nephrology/under surveillance, no dialysis at this time Constipation History of CHF (congestive heart failure) Hyperlipidemia Hypertension Lumbar spinal stenosis Neurogenic bladder Self Catheterization since Aortic repair Osteoarthritis PTSD (post-traumatic stress disorder) POST AORTIC DISSECTION Sleep apnea CPAP Urinary retention Surgical History Fusion of lumbar spine History of arthroscopy RT KNEE History of bladder surgery History of cardiac catheterization 2004 - no stents - [facility] in [place] History of cardioversion mult History of cataract surgery RT/LEFT History of colonoscopy History of esophagogastroduodenoscopy (EGD) History of gastric bypass 2010 History of lumbar fusion History of open reduction and internal fixation (ORIF) procedure RT WRIST 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 History of rhinoplasty History of tooth extraction History of total hip arthroplasty RT; RECENTLY HAD LEFT HIP REPLACED 01/13/20 History of total knee replacement RT History of transurethral resection of prostate Nausea and vomiting after administration of anesthetic agent Family History Grandmother Family history of diabetes mellitus Mother Gallbladder disease Father Prostate cancer Myocardial infarction Hypertension Other Family history non-contributory No family history of adverse response to anesthesia Denies family history of Ovarian cancer Breast cancer Social History Preferred Language: Com[place] Communication Ability: Effective Visual Impairment: Diminished Hearing Ability: Normal Sterile Tech Required: No Beliefs That Will Affect Care: None marital status: Current Living Situation: Spouse current occupational status: retired Other Information That Helps Us Care for You: No Feels Safe at Home: Yes Safety Concerns: Feels Safe At This Time Smoking Status: Never smoker Do You Dip or Chew Tobacco: No ; Second Hand Exposure: Yes (hx -- used to smoke) ; Tobacco Cessation Education Requested by Patient: No Hx Alcohol Use: No Hx Substance Use: No Childhood Exposure to Second-Hand Smoke: Yes caffeine: Yes Dental Care, Regularly: Yes Physical Activity Frequency: Does not Exercise Physical Activity Frequency Comment: due to back issue Seatbelt Use: always Sunscreen Use: Yes Review of Systems Constitutional: no fever, no chills and no body aches Respiratory: no cough, no dyspnea and no wheezing Cardiovascular: + palpitations (Chronic A.fib ); no chest pain, no dyspnea and no lightheadedness Gastrointestinal: no abdominal pain, no nausea and no vomiting Genitourinary: no dysuria and no decreased urination Musculoskeletal: no back pain, no neck pain and no joint pain Integumentary: no rash Physical Exam Physical Exam: General: no distress Eyes: normal inspection, PERLL Respiratory: chest non tender, clear to auscultation, normal breath sounds, no respiratory distress, no accessory muscle use Cardiac: regular rate and rhythm, no rub or gallop, no murmur, no edema, no jvd GI/: active bowel sounds, no abd pain or tenderness, soft, non distended Extremities: normal range of motion, normal strength, non tender Neuro/Psych: alert and oriented x 3, normal mood and affect Skin: normal color, dry Results & Data Results & Data ([facility]) Vital Signs (Past 12 Hours) Vital Signs Temp Pulse Resp BP BP Pulse Ox 01/20/20 15:35 37.1 C 83 18 112/62 96 01/20/20 12:00 36.7 C 89 16 121/70 99 01/20/20 07:49 36.5 C 97 H 18 119/73 94 PG Care Time/CCT Total # of Minutes Spent Total Time Spent with Patient: Total time spent is greater than 50% in coordination of care (as documented) at patient's floor/unit and/or counseling patient: Coding Level of Care Code 80223 Inpt Consult Level 4 Diagnoses S/P revision of total hip Z96.649 CKD (chronic kidney disease), stage IV N18.4 Acute blood loss anemia D62 Anemia due to chronic kidney disease N18.9; D63.1 Atrial fibrillation I48.2 Atrial fibrillation type: permanent Hyperlipidemia E78.5 Hypertension I10 Hypertension type: essential hypertension Neurogenic bladder N31.9 (1) Atrial fibrillation Atrial fibrillation type: permanent Qualified Code(s): I48.2 - Chronic atrial fibrillation (2) Hypertension Hypertension type: essential hypertension Qualified Code(s): I10 - Essential (primary) hypertension
[2020-01-20] MEDS ORDERED: CeleBREX 200 MG CAP PO SCH (21:00)
[2020-01-20] MEDS: CHOLECALCIFEROL 1,000 UNITS 25 MCG TAB PO SCH (21:34)
[2020-01-20] MEDS: FERROUS SULFATE 325 MG TAB PO SCH (21:34)
[2020-01-20] MEDS: SENNA 8.6 MG TAB PO SCH (21:36)
[2020-01-21] MEDS: ACETAMINOPHEN 500 MG TAB PO SCH ×2 (05:28→14:01)
[2020-01-21 05:50] LABS: Eosinophils # (auto) 0.01 K/uL (0-0.5); Eosinophils % (auto) 0.1 %; Hematocrit (blood only) 23.5 % (42-52); Immature Granulocytes # (auto) 0.03 K/uL (0.00-0.02); Immature Granulocytes % (auto) 0.4 %; Lymphocytes % (auto) 11.5 %; Mean Corpuscular Hemoglobin 32.3 pg (25-34); Mean Corpuscular Volume 94.8 fL (80-100); Mean Platelet Volume 8.2 fL (7.4-10.4); Monocytes # (auto) 0.77 K/uL (0.11-0.59); Monocytes % (auto) 9.9 %; Neutrophils % (auto) 78.1 %; Platelet Count 274 K/uL (130-400); RDW Standard Deviation 48.4 fL (36.4-46.3); Red Blood Count 2.48 M/uL (4.7-6.1); White Blood Count 7.81 K/uL (4.8-10.8)
[2020-01-21 06:23] LABS: BUN Creatinine Ratio 16.1 (10-20); Creatinine Clr Calc Pharmacy 29.6 ml/min; Est GFR (African American) 23.9; Est GFR (Non-African American) 20.6; Potassium 3.8 mmol/L (3.5-5.1)
[2020-01-21] MEDS ORDERED: LACTATED RINGER'S 1,000 ML IV SCH (08:30)
[2020-01-21] MEDS: CHECK SCOPOLAMINE PATCH PLACEMENT SCH ×2 (08:42→16:06)
[2020-01-21] MEDS: METHENAMINE HIPPURATE 1 GM TAB PO SCH (08:45)
[2020-01-21] MEDS: APIXABAN 2.5 MG TAB PO SCH (08:45)
[2020-01-21] MEDS: DULOXETINE HCL 30 MG CAP PO SCH (08:45)
[2020-01-21] MEDS: DOCUSATE SODIUM 100 MG CAP PO SCH (08:45)
[2020-01-21] MEDS: CEROVITE ADV FORMULA TAB PO SCH (08:46)
[2020-01-21] MEDS: minoxidiL 2.5 MG TAB PO SCH (08:46)
[2020-01-21] MEDS: AMLODIPINE BESYLATE 5 MG TAB PO SCH (08:46)
[2020-01-21] MEDS: ATORVASTATIN 20 MG TAB PO SCH (08:47)
[2020-01-21] MEDS: METOPROLOL SUCC 50MG EXT REL TAB PO SCH (08:47)
[2020-01-21] MEDS ORDERED: CALCITRIOL 0.25 MCG CAPSULE PO SCH (09:00)
[2020-01-21] MEDS ORDERED: Nursing to Pharmacy Communication SCH (09:00)
--- NOTE | 2020-01-21 11:10 | Hospitalist Progress Note ---
Date of Service January 21, 2020 Assessment & Plan (1) S/P revision of total hip: L JASON 01/18 DVT proph, pain control per primary (2) CKD (chronic kidney disease), stage IV: Patient's kidney function is slightly higher than baseline (2.3-2.7) at 2.[address] Paul outpatient Discontinued Celebrex and Toradol and avoid nephrotoxins Will give patient 500 mls LR at 125 mls/hr Recommend patient follow up with nephrology in one week after discharge (3) Acute blood loss anemia: Hgb 8, stable, continue to monitor, no symptoms on my assessment, hemodynamically stable (4) Anemia due to chronic kidney disease: As above (5) Atrial fibrillation: Continue home amlodipine, metoprolol (6) Hyperlipidemia: Continue home atorvastatin (7) Hypertension: Continue home metoprolol, minoxidil and amlodipine (8) Neurogenic bladder: Patient straight caths at home - may continue here Patient is medically ready for discharge when ok with surgery and is looking forward to going home today. He is very firm that he does not want to go to an inpatient rehab as this would be too long away from his family and he has concerns for COVID risks. Would have him follow up with his analysis mgr in about a week to ensure kidney function stabilizes. Admission and Anticipated Discharge Date Admission Date: January 19, 2020 Subjective Mr. Escobedo is feeling well. He is looking forward to going home. ROS Constitutional: no chills, aches, sweats or fever Respiratory: no sob,cough, sputum, or wheezing Cardiac: no chest pain, palpitations, edema, orthopnea or lightheadedness GI: no abdominal pain, nausea, vomiting, diarrhea or constipation : no dysuria or hesitancy Extremities: no joint pain or weakness Skin: no rash All other systems reviewed and negative Physical Exam Physical Exam: General: no distress Eyes: normal inspection, PERLL Respiratory: chest non tender, clear to auscultation, normal breath sounds, no respiratory distress, no accessory muscle use Cardiac: regular rate and rhythm, no rub or gallop, no murmur, no edema, no jvd GI/: active bowel sounds, no abd pain or tenderness, soft, non distended Extremities: normal range of motion, normal strength, non tender Neuro/Psych: alert and oriented x 3, normal mood and affect Skin: normal color, dry Results & Data Results & Data ([facility]) Vital Signs (Past 12 Hours) Vital Signs Temp Pulse Pulse Resp BP BP Pulse Ox 01/21/20 08:43 102 H 131/87 01/21/20 07:00 36.4 C L 94 H 16 125/75 100 01/21/20 03:33 86 18 98 01/20/20 23:32 36.5 C 94 H 18 120/77 98 01/20/20 23:21 93 H 18 97 PG Care Time/CCT Total # of Minutes Spent Total Time Spent with Patient: Total time spent is greater than 50% in coordination of care (as documented) at patient's floor/unit and/or counseling patient: Coding Level of Care Code 50828 Subseq Hosp Care Lvl 2 Diagnoses S/P revision of total hip Z96.649 CKD (chronic kidney disease), stage IV N18.4 Acute blood loss anemia D62 Anemia due to chronic kidney disease N18.9; D63.1 Atrial fibrillation I48.2 Atrial fibrillation type: permanent Hyperlipidemia E78.5 Hypertension I10 Hypertension type: essential hypertension Neurogenic bladder N31.9 (1) Atrial fibrillation Atrial fibrillation type: permanent Qualified Code(s): I48.2 - Chronic atrial fibrillation (2) Hypertension Hypertension type: essential hypertension Qualified Code(s): I10 - Essential (primary) hypertension
--- NOTE | 2020-01-21 15:59 | Discharge Summary ---
Date of Service January 21, 2020 Admission HPI Per Admitting Provider HPI: 74 y.o. male s/p L JASON 01/13/[address] Wilson d/c from hospital 01/14/2020, fell while self catheterizing last evening. He had pain in his groin prior to his fall. He was unable to stand and was brought to ER where x-rays showed a dislocated L JASON. Current Home Meds: (Last Updated 12/21 11:15) (ALPRAZolam 0.25 mg oral tablet) 0.25 mg PO PRN: as needed for anxiety(Cymbalta 30 mg oral delayed release caps ule) 30 mg PO Daily(acetaminophen 500 mg oral tablet) 1,000 mg PO q8h(amLODIPine 5 mg oral tablet) 5 mg PO Daily(apixaban 2.5 mg oral tablet) 2.5 mg PO bid(atorvastatin 20 mg oral tablet) 20 mg PO Dailynasal (azelastine 205.5 mcg/inh (0.15%) nasal spray) PLACE 1 SPRAY INTO EACH NOSTRIL AT BEDTIMEvitamin D (calcium with vitamin D 500 mg) 1 tab PO bid(cholecalciferol 1000 intl units oral tablet) 5,000 Int_Unit PO Dailytopical ([place] Nail Lacquer 8% topical solution) 1 appl topical Daily apply to right toenailssulfate (ferrous sulfate 325 mg (65 mg elemental iron) oral delayed release tablet) 325 mg PO Daily(Diflucan 150 mg oral tablet) 150 mg PO ONCE Repeat 1 tab PO once weekly for 4 weeks(furosemide 40 mg oral tablet) 40 mg PO Daily(Toprol-XL 50 mg oral tablet, extended release) 50 mg PO Daily(minoxidil 10 mg oral tablet) 10 mg PO Dailywith minerals (Centrum Silver oral tablet) 1 tab PO Daily(oxyCODONE 5 mg oral capsule) 5 mg PO q6h PRN: as needed for pain(Ultram 50 mg oral tablet) 50 mg PO q12h PRN: as needed for pain 400 mg max Past Med/Surg History Medical History Acute on chronic renal insufficiency (Resolved) Adult situational stress disorder Anxiety Arthritis Atrial fibrillation Followed by Cardiology BPH with obstruction/lower urinary tract symptoms Followed by Urology Chronic kidney disease, stage IV (severe) Followed by Nephrology Chronic rhinitis Constipation Fusion of lumbar spine Hyperlipidemia Hypertension Impotence, organic Lumbar radiculopathy Lumbar spinal stenosis (Chronic) Mitral regurgitation Neurogenic bladder (Chronic) Self Catheterization since Aortic repair. 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 History of rhinoplasty History of tooth extraction History of total hip arthroplasty RT History of total knee replacement RT Nausea and vomiting after administration of anesthetic agent Family History Grandmother Family history of diabetes mellitus Mother Gallbladder disease Father Hypertension Prostate cancer Myocardial infarction Other Family history non-contributory Denies family history of Ovarian cancer Breast cancer Social History Preferred Language: Afghan Communication Ability: Effective Visual Impairment: Diminished Hearing Ability: Normal Tap Dancer Required: No Beliefs That Will Affect Care: None marital status: Current Living Situation: Spouse current occupational status: retired Feels Safe at Home: Yes Smoking Status: Never smoker Second Hand Exposure: No ; Hx Alcohol Use: No Hx Substance Use: No Childhood Exposure to Second-Hand Smoke: Yes caffeine: Yes Dental Care, Regularly: Yes Physical Activity Frequency: Does not Exercise Physical Activity Frequency Comment: due to back issue Seatbelt Use: always Sunscreen Use: Yes Review of Systems All systems reviewed & are unremarkable except as noted in HPI & below Results & Data Diagnostic Findings Studies (relevant to the procedure): MRI that was done on December 09, 2019, is reviewed. This shows severe degenerative changes of the left hip with bone marrow edema within the femoral head and acetabulum. There is a moderate effusion. Degenerative changes are noted in the labrum. Admission Exam Per Admitting Provider General: Alert and oriented x3 with proper grooming and hygiene Eyes: Pupils are equal and reactive to light with accommodation. Extraocular movements are intact Throat: Posterior oropharynx is clear with absence of edema, erythema or exudate Cardiac: Irregularly irregular rate and rhythm with no murmurs or gallops appreciated Lungs: Clear to auscultation with no wheezing, rales or rhonchi Abdomen: Slightly obese, nondistended, nontender with normal active bowel sounds Extremities: Left Hip; patient has mild tenderness over the trochanteric bursa to palpation. His range of motion is limited to flexion at 90 degrees due to brace, external rotation to 0 degrees, internal rotation to 0 degrees. Movements refer groin pain in addition to the lateral-sided hip pain. Lyle's test is equivocal. Positive Stinchfield test. NV intact in Left LE. Neuro: Cranial nerves II through XII are intact with no motor or sensory deficit Skin: Normal in appearance with no open skin areas or discharge Principal Diagnosis Discharge Exam Left Hip: dressing clean, dry and intact. Able to actively perform SLRT and dorsi/plantar flex foot. Minimal pain with very light passive internal / external hip rotation. Calf soft and supple. Quad strength 3/5. NV intact. Discharge Data Allergies Allergy/AdvReac Type Severity Reaction Status Date / Time tetracycline Allergy Mild HIVES Verified 01/19/20 10:17 morphine AdvReac Nausea Verified 01/19/20 10:17 Consultations 01/19/20 15:12 Consult Internal Medicine Routine 01/20/20 08:00 Consult Case Management - Discharge Planning Routine Procedures Performed Operation Date: 01/19/20 11:45 Actual Procedures p Left Total Hip Arthroplasty Revision--Uncemented(Left) - Cuong Wilson MD Ordered Studies 01/19/20 12:36 US - OR guided needle placemen Routine Hospital Course (1) S/P revision of total hip: Patient had essentially an uneventful stay, except for being resistant to going to a rehab facility that was recommended by Dr. Wilson. This afternoon [facility] accepted the patient for a 1 week inpatient stay and he accepted. His family will transport him there later this afternoon. PT/OT while in house Total hip precautions DVT prophy with TEDs and Eliquis Pain control with PO meds Discuss Inpatient rehab with Case Management Abduction pillow use Ice with EZ wrap. Will cont to follow while inpatient with planned discharge tomorrow Appreciate eval by medicine service. Total Time Total Time Spent Total Time Spent (In Minutes): 25 mins Total Time Includes: Examination of the Patient, Discharge Planning, Medication Reconciliation and Communication With Other Providers Discharge Plan Discharge Items Patient Disposition: Transfer Inpatient Rehab Fac Reason For Visit: Failed Left Total Hip Arthroplasty Discharge Diagnosis: Failed Left Total Hip Arthroplasty Activity: As commented below Lifting: None Bathing: Keep incision dry and May shower/bathe in 3 days Bathing Comment: May shower tomorrow Sexual Activity: Wait until after follow-up appointment Exercise/Sports: Wait until after follow-up appointment Driving/Machine Use: No driving until cleared by web site specialist Weightbearing: Left weightbearing Weightbearing Comment: as tolerated with walker assistance Non-emergency contact: Primary Care Provider Call non-emergency contact if: you have any medication questions, your pain is not controlled, your temperature is above 101.5, your wound has increased draina ge and your wound pain has increased Follow-up/Referrals: Gilbert Paul DO [Physician] - (Follow up one week ) Jasiel Pineda DO [Primary Care Provider] - Diet: Regular Addtl Attending Provider Instructions: Post-operative Instructions Dear Patient and Family/Friends, Before you are discharged from the hospital, it is important to know what to expect when you get home after surgery. To that end, we have created this sheet of discharge instructions which covers many commonly asked questions. Make sure you go through this sheet in its entirety with your nurse before you are discharged. Please note that we will go over the specifics of your surgery and recovery when you return for your first post-operative visit. Sincerely, Dr. Wilson Medications 1. Oxycodone 5 mg: take 1-2 tabs po q 4-6 hrs for pain control. This prescription will be sent to your pharmacy. 2. Diclofenac Sodium 75 mg: take 1 tab twice daily for 30 days post operatively for pain control. A prescription with 1 refill will be sent to your pharmacy. 3. Resume your daily Eliquis post operatively for blood clot prevention. 4. Extra Strength Tylenol 500 mg: take 2 tabs every 6-8 hours for pain relief for 3 days post operatively. Please purchase. Pain Expect to be in a fair amount of pain after surgery. Remember, our goal is not to eliminate your pain, but to make it tolerable. It is a good idea to stay ahead of your pain by taking the medications you were prescribed once you get home. Typically, the pain starts improving 3-7 days after surgery. You should start weaning off the narcotic pain medication (oxycodone, hydrocodone, hydromorphone, morphine) as soon as your pain improves. Please call our office if your pain is not adequately controlled. Ice Ice your operative site at least 5 times a day for 15-30 minutes at a time. Make sure you have a thin cloth between the ice or cooling unit and your skin to prevent gil bite. This is especially important if you received a nerve block. Continue icing your operative site for the first 5-7 days after surgery, then as needed. Diet/Nausea/Vomiting Start by drinking clear liquids and eating crackers. If you can tolerate this, then you may resume your normal diet. If you feel nauseated or vomit, take Zofran/ondansetron (if prescribed). Please call our office if you have intractable nausea or vomiting, or, if after hours, you may go to the Emergency Room for help. Constipation Constipation is a common side effect of narcotic pain medication. If you have not had a bowel movement within 2 days after surgery, we recommend purchasing an over the counter laxative such as Milk of Magnesia, Dulcolax, or Miralax from a local pharmacy, and taking it as instructed. Call our clinic if any questions. Weight bearing and Range of Motion. Do not bear any weight through your operative extremity immediately after surgery. If you had upper extremity surgery, do not lift anything with that arm. If you are in a knee brace, keep it locked in place until your follow-up. We will discuss your weight bearing, range of motion, and lifting restrictions in detail at your first post-operative appointment. Continuous Passive Motion (CPM) Machine If you were prescribed a CPM machine, it will start after your first post- operative appointment, at which time we will give you instructions on the range of motion settings and duration of treatment Physical therapy You will be given a prescription for physical therapy or occupational therapy at your first post-operative appointment. Typically, patients start therapy within 1 week of surgery Wound care and showering We will inspect your wound at your first post-operative visit, and may do a dressing change at that time. Most patients will be in a water-proof dressing that is removed 14 days after surgery. It is normal to see some dried blood on the dressing. Do not remove your dressing, paper strips or sutures yourself unless you are given permission. Showering is allowed the day after surgery. Do not scrub or remove any dressings. The wound should not be submerged underwater (i.e. in a bathtub or pool) until 4 weeks after surgery SHUN stockings If you were given white stockings, these are to be worn at all times except to shower (on both legs) for the first 2 weeks after surgery. Driving You may not drive while taking narcotic pain medication or while in a cast, splint, sling or brace. You, the patient, need to make the final determination about when you are safe to drive, however, the earliest you may consider driving after surgery is below: Hand/Wrist/Elbow Surgery: 3 days Shoulder Surgery: 2 weeks Hip,/Knee/Ankle Surgery: 4 weeks Fracture repair: 6 weeks Return to Work Your return to work depends on what surgery was done and what type of work you do. Please bring any paperwork your employer needs completed to your first post-operative visit. Also, bring a description of your job duties, as this helps us to understand what risks you may face at work. Travel Avoid long distance travel (greater than 1 hour) in airplanes and cars for the first 6 weeks after surgery. If you must travel, you need to have a Doppler ultrasound done before you travel to rule out a blood clot in your legs. Follow-up You should have a follow-up appointment already scheduled 1-2 days after surgery. If not, please contact our office to make this appointment before you leave the hospital. When to call the office It is normal to have swelling and bruising in the limb that was operated on. This will improve with time. It is also normal to have fevers for the first 2 days after surgery. Reasons you should call your doctor include: Uncontrolled pain; Nausea, vomiting, or constipation that does not improve with medication; Fevers over 101.5, chills, sweats; Drainage or bleeding from the wound; Foul odor; Spreading areas of redness; Any other concerns Pending Studies at Discharge: No Skilled Items Patient informed of condition?: Yes DNR: No Discharge Level of Care: Acute rehab Communicable Disease: No Discharge Prognosis: Stable Lines: None Urinary Catheter: No Medications and DC Order Prescriptions: Continued metoprolol succinate [Toprol XL] 50 mg tablet extended release 24 hr 50 mg PO QAM RF: 0 amlodipine 5 mg tablet 5 mg PO QAM RF: 0 ferrous sulfate 325 mg (65 mg iron) tablet 325 mg PO QPM RF: 0 minoxidil 10 mg tablet 10 mg PO QAM RF: 0 multivitamin with minerals tablet 1 tab PO DAILY RF: 0 Eliquis 2.5 mg tablet 2.5 mg PO BID Qty: 180 RF: 3 atorvastatin 20 mg tablet See Rx Instructions .ROUTE .COMPLEX Qty: 90 RF: 3 alprazolam 0.25 mg tablet 0.25 mg PO DAILY PRN (Reason: anxiety) Qty: 30 RF: 2 calcitriol 0.25 mcg capsule 0.25 mcg PO .QMWF Qty: 30 RF: 2 methenamine hippurate 1 gram tablet 1 gm PO QAM Qty: 90 RF: 3 duloxetine 30 mg capsule,delayed release(DR/EC) 30 mg PO QAM RF: 0 azelastine 0.15 % (205.5 mcg) spray,non-aerosol 1 sprays INTNAS HS PRN (Reason: seasonal allergies) RF: 0 cholecalciferol (vitamin D3) [Vitamin D3] 50 mcg (2,000 unit) Tablet 50 mcg PO QPM RF: 0 oxycodone 5 mg tablet 5 mg PO Q6H Qty: 30 RF: 0 tramadol 50 mg Tablet 50 mg PO Q6H PRN (Reason: Pain) RF: 0 Discharge Orders: Discharge Order (Routine); Ordered 01/21/20 Ordered By: Bridger Parekh Admission Data Admit Date/Time: 01/19/20 15:12 Attending Provider: Cuong Wilson Admit Provider: Cuong Wilson Primary Care Provider: Jasiel Pineda Other Providers: Oswaldo Hou ; [facility] ; [place]
[2020-01-21] MEDS ORDERED: ATORVASTATIN 20 MG TAB PO SCH (21:00)
== END 2020-01-21 17:46 | DRG 464 ==
LOC: ASU 09:43 → 3E 15:12

== ENCOUNTER 2021-07-13 09:21 | Inpatient (IN) ==
[2021-07-13] MEDS ORDERED: ONDANSETRON INJ 2 MG/ML 2 ML VIAL IV STA (09:30)
[2021-07-13] MEDS ORDERED: HYDROmorphone INJ 0.5 MG/0.5 ML SYR IV STA ×2 (09:30→10:40)
[2021-07-13] MEDS ORDERED: SODIUM CHLORIDE 0.9% 1000ML 1,000 ML IV STA (09:30)
--- NOTE | 2021-07-13 09:36 | Emergency Department Note ---
Impression & Plan Back pain, MARINO (acute kidney injury), CKD (chronic kidney disease), Fall, Weakness, Anemia ED Provider Note NAME: JENNIFER STAPLETON AGE: 75 SEX: M : 1945 ARRIVES VIA: Ambulance INFORMANT: Patient ED PROVIDER(S): Sunil Jean DO CHIEF COMPLAINT: Back pain HPI: Patient is a 35-year-old male presents the ER for weakness. He had a fall last night and following falling he has been having weakness in the left lower extremity. He is known to have a cyst the L1-L2 region. He was set to have surgery but they would not perform surgery due to the sacral ulcer which was present. He notes the pain got significantly worse last night. He denies any new numbness or weakness in the groin. No new weakness in the legs but admits to numbness on the left anterior foot and prasda. Denies any headache or change in vision. He did not hit his head or neck. No chest pain or shortness of breath. No other exacerbating or remitting factors. 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 He has not been able to walk with the pain and lives at home. He is taking Ultram. ROS: See above HPI for pertinent positives & negatives. A total of 10 systems reviewed and were otherwise negative. PAST MEDICAL HISTORY:See Below PAST SURGICAL HISTORY:See Below FAMILY HISTORY:See Below SOCIAL HISTORY:See Below HOME MEDICATIONS:See Below ALLERGIES:See Below VITALS:See Below PHYSICAL EXAMINATION: GENERAL: Sitting up in bed, alert, moderate distress HEAD: NC/AT EYE EXAM: normal conjunctiva. PERRL and EOM's grossly intact. OROPHARYNX: no exudate, no erythema, lips, buccal mucosa, and tongue normal and mucous membranes are moist NECK: supple, no nuchal rigidity, no adenopathy, non-tender LUNGS: Clear to auscultation. Normal chest wall mechanics HEART: no murmurs, S1 normal and S2 normal ABDOMEN: abdomen soft, non-tender, normo-active bowel sounds, no masses, no rebound or guarding. BACK: Back is symmetrical on inspection and there is no deformity, no midline tenderness, no CVA tenderness. Wound VAC located over the lower sacrum/coccyx. Old midline incision lumbar region. Acute tenderness over the lower lumbar midline region. SKIN: no rashes and no bruising UPPER EXTREMITIES: upper extremities are grossly normal. LOWER EXTREMITIES: No pitting edema. NEURO EXAM: Normal sensorium, cranial nerves II-XII intact, normal speech, no weakness of arms, flexion-extension of the right hip knee ankle and EHL intact 5 out of 5. Flexion extension of the left hip is intact as well as the knee and plantar and dorsiflexion. Only able to flex 20 degrees with significant pain. MEDICAL DECISION MAKING: Patient is a 75-year-old male who presents ER for severe back pain radiating into his left leg. This got worse last night after a fall. He does admit to some new tingling in that left lower extremity. IV was established blood work obtained. Labs show no significant leukocytosis but an anemia at 7.9. Down from 9. BMP with a creatinine of 4.36 up from baseline of about 3.5. LFTs lipase is unremarkable. UA was clean. Covid was negative. He was given IV fluids several doses of narcotics. CT showed no significant change. As he cannot walk discussed with the hospitalist for further evaluation. Triage Nursing notes reviewed. Limited review of prior medical records performed Vital Signs: reviewed and remarkable for no significant abnormalities Differential diagnosis: Differential diagnoses includes but is not limited to lumbar radiculopathy, kidney stone, muscle strain, facture, cauda equina, mass, and disc herniation. ER treatment provided: See below Diagnostics interpreted by me: ECG: none Cardiac Monitoring: An order was placed for continuous cardiac monitoring. The monitor shows a rate of 72 with sinus rhythm. Laboratory studies: As stated above and show below. Imaging studies: CT lumbar spine showed no acute change Consultation(s): Discussed with the hospitalist for further evaluation Procedures: none Critical Care: None Past Med/Surg History Medical History (Updated 07/13/21 @ 14:52 by Sunil Jean DO) Abdominal aortic aneurysm (~2014) S/p Type A dissection with emergent repair in 2014 Later found to have AAA 3.5cm- followed by vascular surgery with medical management Anemia due to chronic kidney disease Anxiety Atrial fibrillation Follows with [facility] cardiology (Dr. 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 History of revision of total hip arthroplasty left History of rhinoplasty History of tooth extraction History of total knee replacement RT History of total left hip arthroplasty (~12/2019) History of transurethral resection of prostate Nausea and vomiting after administration of anesthetic agent S/P debridement (06/27/21) Excisional Debridement Sacral Decubitus Ulcer down to muscle level 4cm x 6cm - Ranjeet Myers DO 06/27/2021 S/P total right hip arthroplasty Family History Grandmother Family history of diabetes mellitus Mother Gallbladder disease Father Prostate cancer Myocardial infarction Hypertension Other Family history non-contributory No family history of adverse response to anesthesia Denies family history of Ovarian cancer Breast cancer Colorectal cancer Social History Smoking Status: Never smoker Second Hand Exposure: No (hx -- used to smoke); Hx Alcohol Use: No Hx Substance Use: No Preferred Language: [place]se Communication Ability: Effective Visual Impairment: Limited Hearing Ability: Normal P D Driver Required: No Beliefs That Will Affect Care: None marital status: Current Living Situation: Spouse current occupational status: retired How many Children do You have: 1 Feels Safe at Home: Yes Childhood Exposure to Second-Hand Smoke: Yes (father did ) Diet Comment: low sugar, low phospate caffeine: Yes (tea) during the past year weight has: remained stable Dental Care, Regularly: Yes Physical Activity Frequency: Does not Exercise Physical Activity Frequency Comment: goes to PT twice a week Seatbelt Use: always Sunscreen Use: Yes Do you think of yourself as: straight/heterosexual Gender Identity: Male Assistive Devices: CPAP, Crutches and Glasses Allergies Allergies Allergy/AdvReac Type Severity Reaction Status Date / Time tetracycline Allergy Intermediate HIVES Verified 07/13/21 11:52 morphine AdvReac Mild Nausea Verified 07/13/21 11:52 Home Meds Home Medications Medication Instructions Recorded Confirmed multivitamin with minerals 1 tab PO QAM tab 04/06/18 07/13/21 cholecalciferol (vitamin D3) 50 50 mcg PO QPM 12/31/19 07/13/21 mcg (2,000 unit) tablet (Vitamin D3) tramadol 50 mg tablet 50 mg PO Q6H PRN 01/15/20 07/13/21 atorvastatin 20 mg tablet (Lipitor) 20 mg PO QPM tab 05/11/21 07/13/21 darbepoetin nimisha in polysorbat 60 60 mcg SUBCUT MONTHLY 06/12/21 07/13/21 mcg/0.3 mL in polysorbate injection syringe (Aranesp) alprazolam 0.25 mg tablet 0.25 mg PO DAILY PRN tab 06/18/21 07/13/21 duloxetine 30 mg capsule,delayed 30 mg PO QAM cap 06/18/21 07/13/21 release amlodipine 5 mg tablet (Norvasc) 5 mg PO QAM 06/20/21 07/13/21 calcitriol 0.25 mcg capsule 0.25 mcg PO QAM 06/20/21 07/13/21 acetaminophen 500 mg tablet 1,000 mg PO DIRECTED PRN 07/13/21 07/13/21 (Tylenol Extra Strength) apixaban 2.5 mg tablet (Eliquis) 2.5 mg PO BID 07/13/21 07/13/21 metronidazole 1 % topical gel 1 applic TOPICAL DIRECTED 07/13/21 07/13/21 (Metrogel) Previous Rx's Medication Instructions Recorded azelastine 205.5 mcg (0.15 %) 1 spray INTNAS HS PRN #30 ml 09/04/20 nasal spray minoxidil 10 mg tablet 10 mg PO QAM #90 tab 12/18/20 metoprolol succinate 50 mg 50 mg PO QAM #90 tab 12/26/20 tablet,extended release 24 hr (Toprol XL) methenamine hippurate 1 gram tablet 1 g PO QAM #90 tab 01/18/21 furosemide 40 mg tablet 40 mg PO QAM #90 tab 07/04/21 sodium bicarbonate 650 mg tablet 650 mg PO BID #180 tab 07/04/21 Results & Data (ED) Vital Signs Vital Signs - 24 hr 07/13/21 09:32 07/13/21 10:01 07/13/21 10:19 Temperature 37.5 C Temperature Source Oral Pulse Rate 86 Pulse Rate [Finger] 88 Pulse Rate from SpO2 Sensor Respiratory Rate 20 18 Blood Pressure 143/93 H Blood Pressure [Left Arm] 147/92 H Blood Pressure Mean 109 Blood Pressure Mean [Left Arm] 110 Pulse Oximetry 94 95 91 Oxygen Delivery Method Room Air Room Air Room Air Sepsis Recent Fever Within 48 Hours No Sepsis New/Unexplained Change in Mental Status No Sepsis Action Taken by Nursing No Action Required 07/13/21 10:34 07/13/21 10:40 07/13/21 10:50 Temperature Temperature Source Pulse Rate 90 87 79 Pulse Rate [Finger] Pulse Rate from SpO2 Sensor 91 H 92 H 81 Respiratory Rate 17 16 18 Blood Pressure Blood Pressure [Left Arm] Blood Pressure Mean Blood Pressure Mean [Left Arm] Pulse Oximetry 97 95 96 Oxygen Delivery Method Sepsis Recent Fever Within 48 Hours Sepsis New/Unexplained Change in Mental Status Sepsis Action Taken by Nursing 07/13/21 11:00 07/13/21 11:10 07/13/21 11:20 Temperature Temperature Source Pulse Rate 83 91 H 87 Pulse Rate [Finger] Pulse Rate from SpO2 Sensor 89 90 87 Respiratory Rate 12 14 12 Blood Pressure 107/71 Blood Pressure [Left Arm] Blood Pressure Mean 83 Blood Pressure Mean [Left Arm] Pulse Oximetry 97 95 96 Oxygen Delivery Method Sepsis Recent Fever Within 48 Hours Sepsis New/Unexplained Change in Mental Status Sepsis Action Taken by Nursing 07/13/21 11:30 07/13/21 11:40 07/13/21 11:50 Temperature Temperature Source Pulse Rate 79 89 79 Pulse Rate [Finger] Pulse Rate from SpO2 Sensor 81 88 86 Respiratory Rate 12 18 21 Blood Pressure 120/62 Blood Pressure [Left Arm] Blood Pressure Mean 81 Blood Pressure Mean [Left Arm] Pulse Oximetry 96 98 97 Oxygen Delivery Method Sepsis Recent Fever Within 48 Hours Sepsis New/Unexplained Change in Mental Status Sepsis Action Taken by Nursing 07/13/21 12:00 07/13/21 12:10 07/13/21 12:20 Temperature Temperature Source Pulse Rate 83 73 79 Pulse Rate [Finger] Pulse Rate from SpO2 Sensor 88 81 86 Respiratory Rate 14 7 L 14 Blood Pressure 103/57 L Blood Pressure [Left Arm] Blood Pressure Mean 72 Blood Pressure Mean [Left Arm] Pulse Oximetry 95 96 97 Oxygen Delivery Method Sepsis Recent Fever Within 48 Hours Sepsis New/Unexplained Change in Mental Status Sepsis Action Taken by Nursing Laboratory Data Result diagrams: 07/13/21 09:50 07/13/21 09:50 Lab Results 07/13/21 07/13/21 07/13/21 Range/Units 09:50 09:50 10:35 WBC 6.33 (4.8-10.8) K/uL RBC 2.57 L (4.7-6.1) M/uL Hgb 7.9 L (14.0-18.0) g/dL Hct 24.3 L (42-52) % MCV 94.6 (80-100) fL MCH 30.7 (25-34) pg MCHC 32.5 (32-36) g/dL RDW Std Deviation 50.0 H (36.4-46.3) fL RDW Coeff of Hector 14.6 H (11.5-14.5) % Plt Count 308 (130-400) K/uL MPV 8.2 (7.4-10.4) fL Immature Gran % (Auto) 0.0 % Neut % (Auto) 71.9 % Lymph % (Auto) 10.4 % Erath % (Auto) 15.0 % Eos % (Auto) 2.2 % Baso % (Auto) 0.5 % Neut # (Auto) 4.55 (1.4-6.5) K/uL Lymph # (Auto) 0.66 L (1.2-3.4) K/uL Erath # (Auto) 0.95 H (0.11-0.59) K/uL Eos # (Auto) 0.14 (0-0.5) K/uL Baso # (Auto) 0.03 (0-0.2) K/uL Immature Gran # (Auto) 0.00 (0.00-0.02) K/uL Ovalocytes 1+ Acanthocytes (Spur) 1+ Sodium 138 (136-145) mmol/L Potassium 3.6 (3.5-5.1) mmol/L Chloride 107 (98-107) mmol/L Carbon Dioxide 21 (21-32) mmol/L Anion Gap 11.0 (3-11) BUN 70 H (7-18) mg/dl Creatinine 4.36 H (0.6-1.4) mg/dl Est Cr Clr Drug Dosing 18.5 ml/min Est GFR ( Amer) 14.4 ml/min Est GFR (Non-Af Amer) 12.4 ml/min BUN/Creatinine Ratio 16.1 (10-20) Glucose 94 (70-99) mg/dl Calcium 9.5 (8.5-10.1) mg/dl Total Bilirubin 0.4 (0.2-1) mg/dl AST 23 (15-37) U/L ALT 28 (12-78) Alkaline Phosphatase 94 (45-117) U/L Total Protein 6.9 (6.4-8.2) gm/dl Albumin 3.0 L (3.4-5.0) gm/dl Globulin 3.9 (2.5-4.0) gm/dl Albumin/Globulin Ratio 0.8 L (0.9-2) Lipase 308 (73-393) U/L Urine Color Yellow Urine Appearance Clear (Clear) Urine pH 5.5 (4.5-7.5) Ur Specific Aurora 1.011 (1.000-1.030) Urine Protein 2+ H (Negative) Urine Glucose (UA) Negative (Negative) Urine Ketones Negative (Negative) Urine Blood Negative (Negative) Urine Nitrite Negative (Negative) Urine Bilirubin Negative (Negative) Urine Urobilinogen Negative (Negative) Ur Leukocyte Esterase Negative (Negative) Urine WBC (Auto) 1-5 (0-5) /hpf Urine RBC (Auto) 0-4 (0-4) /hpf U Hyaline Cast (Auto) 0 (0-5) /lpf U Epithel Cells (Auto) 0-5 (0-5) /lpf Urine Bacteria (Auto) Negative (Negative) SARS-CoV-2, RNA, NAAT (NEGATIVE) 12/17/21 Range/Units 10:45 WBC (4.8-10.8) K/uL RBC (4.7-6.1) M/uL Hgb (14.0-18.0) g/dL Hct (42-52) % MCV (80-100) fL MCH (25-34) pg MCHC (32-36) g/dL RDW Std Deviation (36.4-46.3) fL RDW Coeff of Hector (11.5-14.5) % Plt Count (130-400) K/uL MPV (7.4-10.4) fL Immature Gran % (Auto) % Neut % (Auto) % Lymph % (Auto) % Erath % (Auto) % Eos % (Auto) % Baso % (Auto) % Neut # (Auto) (1.4-6.5) K/uL Lymph # (Auto) (1.2-3.4) K/uL Erath # (Auto) (0.11-0.59) K/uL Eos # (Auto) (0-0.5) K/uL Baso # (Auto) (0-0.2) K/uL Immature Gran # (Auto) (0.00-0.02) K/uL Ovalocytes Acanthocytes (Spur) Sodium (136-145) mmol/L Potassium (3.5-5.1) mmol/L Chloride (98-107) mmol/L Carbon Dioxide (21-32) mmol/L Anion Gap (3-11) BUN (7-18) mg/dl Creatinine (0.6-1.4) mg/dl Est Cr Clr Drug Dosing ml/min Est GFR ( Amer) ml/min Est GFR (Non-Af Amer) ml/min BUN/Creatinine Ratio (10-20) Glucose (70-99) mg/dl Calcium (8.5-10.1) mg/dl Total Bilirubin (0.2-1) mg/dl AST (15-37) U/L ALT (12-78) Alkaline Phosphatase (45-117) U/L Total Protein (6.4-8.2) gm/dl Albumin (3.4-5.0) gm/dl Globulin (2.5-4.0) gm/dl Albumin/Globulin Ratio (0.9-2) Lipase (73-393) U/L Urine Color Urine Appearance (Clear) Urine pH (4.5-7.5) Ur Specific Aurora (1.000-1.030) Urine Protein (Negative) Urine Glucose (UA) (Negative) Urine Ketones (Negative) Urine Blood (Negative) Urine Nitrite (Negative) Urine Bilirubin (Negative) Urine Urobilinogen (Negative) Ur Leukocyte Esterase (Negative) Urine WBC (Auto) (0-5) /hpf Urine RBC (Auto) (0-4) /hpf U Hyaline Cast (Auto) (0-5) /lpf U Epithel Cells (Auto) (0-5) /lpf Urine Bacteria (Auto) (Negative) SARS-CoV-2, RNA, NAAT NEGATIVE (NEGATIVE) Administered Medications Buprenorphine HCl (Buprenorphine 5 Mcg/Hr Tdsy) 5 mcg TD Fr@1400 [place] Stop: 08/12/21 13:59 Last Admin: 07/13/21 13:54 Dose: 5 mcg Documented by: [id number] Discontinued Medications Hydromorphone HCl (Hydromorphone Inj 0.5 Mg/0.5 Ml Syr) 0.5 mg IV NOW STA Stop: 07/13/21 09:31 Last Admin: 07/13/21 09:53 Dose: 0.5 mg Documented by: [id number] Hydromorphone HCl (Hydromorphone Inj 0.5 Mg/0.5 Ml Syr) 0.5 mg IV NOW STA Stop: 07/13/21 10:41 Last Admin: 07/13/21 11:00 Dose: 0.5 mg Documented by: [id number] Sodium Chloride (Nss 1000ml) 1,000 mls @ 999 mls/hr IV .Q1H1M STA Stop: 07/13/21 10:30 Last Infusion: 07/13/21 10:37 Dose: 0 mls/hr Documented by: [id number] Admin: 07/13/21 09:49 Dose: 999 mls/hr Documented by: [id number] Sodium Chloride (Nss 1000ml) 1,000 mls @ 999 mls/hr IV .Q1H1M ONE Stop: 07/13/21 11:39 Last Admin: 07/13/21 11:00 Dose: 999 mls/hr Documented by: [id number] Ondansetron HCl (Ondansetron Inj 2 Mg/Ml 2 Ml Vial) 4 mg IV NOW STA Stop: 07/13/21 09:31 Last Admin: 12/17/21 09:52 Dose: 4 mg Documented by: [id number] Imaging Data Radiologist's Impression: Lumbar Spine CT 07/13/21 09:[address] DOSE: 773.97 mGy.cm HISTORY: lower back pain TECHNIQUE: Multiaxial CT images of the lumbar spine were performed and reformatted in the sagittal and coronal plane without the use of contrast. A dose lowering technique was utilized adhering to the principles of ALARA. COMPARISON: Lumbar spine MRI 06/08/2021. FINDINGS: No acute fractures within the lumbar spine. There is 3 mm of retrolisthesis of L2 on L3, unchanged. Focal indentation/erosion at the inferior endplate of L2 remains unchanged with mild surrounding sclerosis. This favors a Schmorl's node. Posterior decompression and fusion from L3 through L5 with pedicle screws and rods. The hardware appears intact. Mild disc space narrowing at L2-L3 and L5-S1 with small endplate osteophytes consistent with degenerative change. The visualized sacrum is intact. Postoperative changes within the s tomach are partially visualized and suggest a prior gastric bypass. An 11 mm hypodense lesion within the right kidney favors a cyst. Partially visualized aneurysmal dilatation of the left common iliac artery measuring up to 2.8 cm in diameter. Paravertebral soft tissues are unremarkable. Evaluation the central canal suboptimal due to the CT technique. There is again noted moderate central canal narrowing at L2-L3 due to a broad-based posterior disc bulge and ligamentum and facet hypertrophy. This is similar to the prior study. There is moderate bilateral neural foraminal narrowing at L2-L3 and L3-L4. There is mild bilateral neural foraminal narrowing at L4-L5. There is moderate to severe left- sided neural foraminal narrowing at L5-S1. This is better appreciated on the recent lumbar spine MRI. IMPRESSION: 1. No significant change compared to the 06/08/2021 lumbar spine MRI. 2. L3-L5 posterior decompression and fusion with pedicle screws and rods. The hardware appears intact. 3. No fractures identified within the lumbar spine. 4. Focal indentations laceration at the inferior endplate of L2 remains unchanged and favors a Schmorl's node. 5. 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 6. Additional degenerative changes as described above. ACT 112: Negative or not required by law. Electronically signed by: Victoriano Mcclain M.D. 07/13/2021 10:21 AM Discharge Plan Visit Data Chief Complaint: Leg Injury/Pain Stated Complaint: UNABLE TO AMBULATE, ED Provider: Sunil Jean Discharge Problem: Back pain, MARINO (acute kidney injury), CKD (chronic kidney disease), Fall, Weakness, Anemia Discharge Instructions Interventions: ED Discharge Assessment Last Done: 07/13/21 13:27 Discharge Problem: Back pain Qualifiers: Back pain location: low back pain Chronicity: acute Back pain laterality: unspecified Sciatica presence: unspecified whether sciatica present Qualified Code(s): M54.50 - Low back pain, unspecified CKD (chronic kidney disease) Qualifiers: Chronic kidney disease stage: unspecified stage Qualified Code(s): N18.9 - Chronic kidney disease, unspecified Fall Qualifiers: Encounter type: initial encounter Qualified Code(s): W19.XXXA - Unspecified fall, initial encounter Anemia Qualifiers: Anemia type: unspecified type Qualified Code(s): D64.9 - Anemia, unspecified
[2021-07-13 10:06] LABS: Basophils # (auto) 0.03 K/uL (0-0.2); Basophils % (auto) 0.5 %; Eosinophils # (auto) 0.14 K/uL (0-0.5); Eosinophils % (auto) 2.2 %; Hematocrit (blood only) 24.3 % (42-52); Hemoglobin 7.9 g/dL (14.0-18.0); Lymphocytes # (auto) 0.66 K/uL (1.2-3.4); Lymphocytes % (auto) 10.4 %; Mean Corpuscular Hemoglobin 30.7 pg (25-34); Mean Corpuscular Hgb Conc 32.5 g/dL (32-36); Mean Corpuscular Volume 94.6 fL (80-100); Mean Platelet Volume 8.2 fL (7.4-10.4); Monocytes # (auto) 0.95 K/uL (0.11-0.59); Neutrophils # (auto) 4.55 K/uL (1.4-6.5); Neutrophils % (auto) 71.9 %; Platelet Count 308 K/uL (130-400); RDW Coefficient of Variation 14.6 % (11.5-14.5); Red Blood Count 2.57 M/uL (4.7-6.1); White Blood Count 6.33 K/uL (4.8-10.8)
[2021-07-13 10:20] LABS: Acanthocytes 1+; Ovalocytes 1+
[2021-07-13 10:22] LABS: BUN Creatinine Ratio 16.1 (10-20); Calcium 9.5 mg/dl (8.5-10.1); Creatinine Clr Calc Pharmacy 18.5 ml/min; Est GFR (African American) 14.4 ml/min; Est GFR (Non-African American) 12.4 ml/min; Potassium 3.6 mmol/L (3.5-5.1)
--- NOTE | 2021-07-13 10:23 | CT Scan Report ---
LUMBAR SPINE CT CT DOSE: 773.97 mGy.cm HISTORY: lower back pain TECHNIQUE: Multiaxial CT images of the lumbar spine were performed and reformatted in the sagittal an d coronal plane without the use of contrast. A dose lowering technique was utilized adhering to the principles of ALARA. COMPARISON: Lumbar spine MRI 06/08/2021. FINDINGS: No acute fractures within the lumbar spine. There is 3 mm of retrolisthesis of L2 on L3, un changed. Focal indentation/erosion at the inferior endplate of L2 remains unchanged with mild surroun ding sclerosis. This favors a Schmorl's node. Posterior decompression and fusion from L3 through L5 w ith pedicle screws and rods. The hardware appears intact. Mild disc space narrowing at L2-L3 and L5-S 1 with small endplate osteophytes consistent with degenerative change. The visualized sacrum is intac t. Postoperative changes within the stomach are partially visualized and suggest a prior gastric bypa ss. An 11 mm hypodense lesion within the right kidney favors a cyst. Partially visualized aneurysmal dilatation of the left common iliac artery measuring up to 2.8 cm in diameter. Paravertebral soft tis sues are unremarkable. Evaluation the central canal suboptimal due to the CT technique. There is agai n noted moderate central canal narrowing at L2-L3 due to a broad-based posterior disc bulge and ligam entum and facet hypertrophy. This is similar to the prior study. There is moderate bilateral neural f oraminal narrowing at L2-L3 and L3-L4. There is mild bilateral neural foraminal narrowing at L4-L5. T here is moderate to severe left-sided neural foraminal narrowing at L5-S1. This is better appreciated on the recent lumbar spine MRI. IMPRESSION: 1. No significant change compared to the 06/08/2021 lumbar spine MRI. 2. L3-L5 posterior decompression and fusion with pedicle screws and rods. The hardware appears intact . 3. No fractures identified within the lumbar spine. 4. Focal indentations laceration at the inferior endplate of L2 remains unchanged and favors a Schmor l's node. 5. 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 6. Additional degenerative changes as described above. ACT 112: Negative or not required by law. Electronically signed by: Victoriano Mcclain M.D. 07/13/2021 10:21 AM
[2021-07-13 10:25] LABS: Albumin Globulin Ratio 0.8 (0.9-2); Bilirubin,Total 0.4 mg/dl (0.2-1); Globulin 3.9 gm/dl (2.5-4.0); Total Protein 6.9 gm/dl (6.4-8.2)
[2021-07-13] MEDS ORDERED: SODIUM CHLORIDE 0.9% 1000ML 1,000 ML IV ONE (10:39)
[2021-07-13 10:45] LABS: Appearance Urine Clear (Clear); Bacteria Urine Automated Negative (Negative); Bilirubin Urine Negative (Negative); Blood Urine Negative (Negative); Cast Urine Automated 0 /lpf (0-5); Color Urine Yellow; Epithelial Cell Urine Auto 0-5 /lpf (0-5); Glucose Urine UA Negative (Negative); Ketones Urine Negative (Negative); Leukocyte Esterase Urine Negative (Negative); Nitrite Urine Negative (Negative); Protein Urine 2+ (Negative); RBC Urine Automated 0-4 /hpf (0-4); Specific Gravity Urine 1.011 (1.000-1.030); Urobilinogen Urine Negative (Negative); pH Urine 5.5 (4.5-7.5)
--- NOTE | 2021-07-13 11:29 | History & Physical Report ---
Date of Service July 13, 2021 Assessment & Plan (1) Ambulatory dysfunction: Plan: Secondary to lumbar spinal stenosis and lumbar radiculopathy as well as history of spinal ischemia causing chronic weakness in the lower extremities Lumbar CT performed here without significant acute issues -Admit to medical floor telemetry due to acute kidney injury and history of atrial fibrillation as below -Consult orthopedic spine surgery and pain management to sort out better ways to improve pain and function as he is not able to have surgery -May need MRI lumbar spine-we will defer to orthopedic spine surgeon -PT/OT consults placed (2) Lumbar spinal stenosis: Plan: As above Consulting ortho spine surgery and pain management For now, bedrest except out of bed with assistance P.o. Dilaudid and IV Dilaudid for pain and severe pain, respectively (3) MARINO (acute kidney injury): Plan: Creatinine was up to 5.02 weeks ago and is slightly improved today down to 4.3 Baseline creatinine is 3.8 Follows with nephrology-consult nephrology while admitted for worsening renal function With lower extremity edema, but blood pressures are fairly well controlled, potassium is normal today, serum bicarbonate mildly low but is on sodium bicarbonate tablets Is making urine and self catheterizes 5 times a day Received 2 L of normal saline in the ER-hold off on any further IV fluids Follow BMP -Hold home Lasix (4) Chronic kidney disease, stage IV (severe): Plan: As above Renally dose medications when appropriate Avoid nephrotoxins Continue serum bicarbonate -Hold home Lasix 40 mg daily for acute kidney injury as above (5) Anemia due to chronic kidney disease: Plan: Hemoglobin lower than previous at 7.9 It does seem that he receives darbepoetin monthly with nephrology Check iron studies in the morning and may need iron replacement followed by darbepoetin shot Follow CBC (6) Sacral decubitus ulcer, stage IV: Plan: Status post debridement by surgery in the beginning of June With wound VAC in place Follows with wound care center -Consult wound care nurse here and is due for wound vacuum exchange today (7) Neurogenic bowel: Plan: Does not follow specific bowel regimen but does move his bowels every 3 to 4 days MiraLAX as needed (8) Sleep apnea: Plan: Does not tolerate CPAP (9) Vitamin D deficiency, unspecified: Plan: Continue vitamin D replacement (10) Neurogenic bladder: Plan: Self catheterizes 5 times a day Allow him to continue to do this here (11) Anxiety: Plan: Continue duloxetine 30 mg daily Continue alprazolam as needed (12) Atrial fibrillation: Plan: Paroxysmal Rates controlled Continue metoprolol Monitor on telemetry (13) Abdominal aortic aneurysm: Plan: With a history of such Follow-up with Dr. Marroquin (14) Hypertension: Plan: Pressures are controlled Continue home amlodipine, metoprolol, minoxidil, but holding home Lasix for acute kidney injury as above (15) Generalized osteoarthritis: Plan: Pain control as needed (16) Hyperlipidemia: Plan: Continue statin Plan: DVT prophylaxis-Eliquis Disposition-admit to telemetry History of Present Illness Chief Complaint: Fall, left lumbar radiculopathy Primary Care Provider: Jasiel Pineda, This patient is a 75-year-old male with a history of CKD stage IV, atrial fibrillation on Eliquis, neurogenic bowel and bladder with self cath, stage IV sacral decubitus ulcer with wound VAC in place, anemia of chronic kidney disease, HTN, hyperlipidemia, chronic back pain with lumbar spinal stenosis, lumbar spinal cysts and left lumbar radiculopathy, and 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 He is not able to ambulate at this point and also his renal function has been worsening in the last 2 weeks with creatinine up to almost the 5.0 range from a baseline of 3.8. He reports the fall was more like a gradual letdown of his body onto the bed and he did not have any acute injuries. He slept all night in bed and could not get out of bed this morning. He had EMS picked him up and bring him to the hospital. His pain is severe in the lower back and radiating to the left hip and left thigh down to the knee. He also noticed that he has had worsening weakness especially with his left ankle and foot since yesterday. He reports he was supposed to have surgery on his lumbar spine, but the surgeon at [place] does not want to do the procedure until his sacral ulcer is healed. He also reports he was scheduled to see pain management, Dr. Hidalgo, for the first time next week to see if there is anything she can offer in the meantime. He reports that p.o. tramadol does not help him at all, even the 1 mg of IV morphine he received here so far is not helping. He continues to have severe spasms in the left thigh and hamstring. Otherwise in ROS, denies shortness of breath or chest pain, no nausea or vomiting, no diarrhea or constipation, no abdominal pains. No urinary symptoms. Allergies Allergy/AdvReac Type Severity Reaction Status Date / Time tetracycline Allergy Intermediate HIVES Verified 07/13/21 11:52 morphine AdvReac Mild Nausea Verified 07/13/21 11:52 Home Medications Medication Instructions Recorded Confirmed Type multivitamin with minerals 1 tab PO QAM tab 04/06/18 07/13/21 History cholecalciferol (vitamin D3) 50 50 mcg PO QPM 12/31/19 07/13/21 History mcg (2,000 unit) tablet (Vitamin D3) tramadol 50 mg tablet 50 mg PO Q6H PRN 01/15/20 07/13/21 History azelastine 205.5 mcg (0.15 %) 1 spray INTNAS HS PRN #30 ml 09/04/20 07/13/21 Rx nasal spray minoxidil 10 mg tablet 10 mg PO QAM #90 tab 12/18/20 07/13/21 Rx metoprolol succinate 50 mg 50 mg PO QAM #90 tab 12/26/20 07/13/21 Rx tablet,extended release 24 hr (Toprol XL) methenamine hippurate 1 gram tablet 1 g PO QAM #90 tab 01/18/21 07/13/21 Rx atorvastatin 20 mg tablet (Lipitor) 20 mg PO QPM tab 05/11/21 07/13/21 History darbepoetin nimisha in polysorbat 60 60 mcg SUBCUT MONTHLY 06/12/21 07/13/21 History mcg/0.3 mL in polysorbate injection syringe (Aranesp) alprazolam 0.25 mg tablet 0.25 mg PO DAILY PRN tab 06/18/21 07/13/21 History duloxetine 30 mg capsule,delayed 30 mg PO QAM cap 06/18/21 07/13/21 History release amlodipine 5 mg tablet (Norvasc) 5 mg PO QAM 06/20/21 07/13/21 History calcitriol 0.25 mcg capsule 0.25 mcg PO QAM 06/20/21 07/13/21 History furosemide 40 mg tablet 40 mg PO QAM #90 tab 07/04/21 07/13/21 Rx sodium bicarbonate 650 mg tablet 650 mg PO BID #180 tab 07/04/21 07/13/21 Rx acetaminophen 500 mg tablet 1,000 mg PO DIRECTED PRN 07/13/21 07/13/21 History (Tylenol Extra Strength) apixaban 2.5 mg tablet (Eliquis) 2.5 mg PO BID 07/13/21 07/13/21 History metronidazole 1 % topical gel 1 applic TOPICAL DIRECTED 07/13/21 07/13/21 History (Metrogel) Past Med/Surg History Medical History (Updated 07/13/21 @ 14:52 by Sunil Jean DO) Abdominal aortic aneurysm (~2014) S/p Type A dissection with emergent repair in 2014 Later found to have AAA 3.5cm- followed by vascular surgery with medical management Anemia due to chronic kidney disease Anxiety Atrial fibrillation Follows with [facility] cardiology (Dr. Jarvis) On Eliquis BPH with obstruction/lower urinary tract symptoms DENIES ENLARGED PROSTATE Chronic kidney disease, stage IV (severe) Follows with [facility] urology, nephrology/under surveillance, no dialysis at this time History of CHF (congestive heart failure) 2003 Hyperlipidemia Hypertension Lumbar spinal stenosis Neurogenic bladder Self Catheterization since Aortic repair Neuropathic pain PTSD (post-traumatic stress disorder) POST AORTIC DISSECTION Sleep apnea CPAP Spinal cord cysts Pt states L1 and L2, dx 05/2021, by Dr. Shrestha at [facility] Surgical History History of arthroplasty of left hip History of arthroscopy RT KNEE History of bladder surgery History of cardiac catheterization 2004 - no stents - [facility] in [place] History of cardioversion mult History of cataract surgery RT/LEFT History of colonoscopy History of esophagogastroduodenoscopy (EGD) History of gastric bypass 2010 History of lumbar fusion History of open reduction and internal fixation (ORIF) procedure RT WRIST 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 Did have thoracic bleeding post op- required re exploration approx 1 week after initial presentation- had ARF, spinal cord ischemia resulting in parapl egia, neurogenic bladder and neurogenic bowel. History of revision of total hip arthroplasty left History of rhinoplasty History of tooth extraction History of total knee replacement RT History of total left hip arthroplasty (~12/2019) History of transurethral resection of prostate Nausea and vomiting after administration of anesthetic agent S/P debridement (06/27/21) Excisional Debridement Sacral Decubitus Ulcer down to muscle level 4cm x 6cm - Ranjeet Myers DO 06/27/2021 S/P total right hip arthroplasty Family History Grandmother Family history of diabetes mellitus Mother Gallbladder disease Father Prostate cancer Myocardial infarction Hypertension Other Family history non-contributory No family history of adverse response to anesthesia Denies family history of Ovarian cancer Breast cancer Colorectal cancer Social History Smoking Status: Never smoker Second Hand Exposure: No (hx -- used to smoke); Hx Alcohol Use: No Hx Substance Use: No Preferred Language: Sinhala Communication Ability: Effective Visual Impairment: Limited Hearing Ability: Normal Production Floater Required: No Beliefs That Will Affect Care: None marital status: Current Living Situation: Spouse Current Living Situation Comment: Lives with at home current occupational status: retired How many Children do You have: 1 Feels Safe at Home: Yes Childhood Exposure to Second-Hand Smoke: Yes (father did ) Diet Comment: low sugar, low phospate caffeine: Yes (tea) during the past year weight has: remained stable Dental Care, Regularly: Yes Physical Activity Frequency: Does not Exercise Physical Activity Frequency Comment: goes to PT twice a week Seatbelt Use: always Sunscreen Use: Yes Do you think of yourself as: straight/heterosexual Gender Identity: Male Assistive Devices: CPAP and Glasses Review of Systems Review of Systems: All systems reviewed & are unremarkable except as noted in HPI & below Physical Exam Constitutional: WD/WN, vitals as above Eyes: PERRL, conjunctivae normal, anicteric sclerae ENMT: external ear and nose normal, oropharynx normal Neck: trachea midline, no thyromegaly Respiratory: normal respiratory effort, lungs clear to auscultation Cardiovascular: Rate/Rhythm: regular rate and regular rhythm Heart Sounds: + murmur (2/6 systolic murmur at the left lower sternal border) Extremities: + edema (2+ pitting edema bilateral lower extremities) Chest (Breasts): Chest: normal inspection of chest Gastrointestinal (Abdomen): normal bowel sounds, soft, nontender, no hepatosplenomegaly Musculoskeletal: Extremities: extremities normal to inspection; no cyanosis and no clubbing Skin: no rashes, warm and dry Neurologic: moves all extremities and awake; no focal motor deficits Psychiatric: A+Ox3, euthymic affect Lymphatic: no lymphedema Results & Data Results & Data ([facility]) Vital Signs (Past 12 Hours) Vital Signs Temp Pulse Pulse Resp BP BP Pulse Ox 07/13/21 10:19 88 18 147/92 H 91 07/13/21 10:01 95 07/13/21 09:32 37.5 C 86 20 143/93 H 94 Laboratory Results 07/13/21 07/13/21 07/13/21 Range/Units 10:45 10:35 09:50 WBC (4.8-10.8) K/uL RBC (4.7-6.1) M/uL Hgb (14.0-18.0) g/dL Hct (42-52) % MCV (80-100) fL MCH (25-34) pg MCHC (32-36) g/dL RDW Std Deviation (36.4-46.3) fL RDW Coeff of Hector (11.5-14.5) % Plt Count (130-400) K/uL MPV (7.4-10.4) fL Immature Gran % (Auto) % Neut % (Auto) % Lymph % (Auto) % Mobile % (Auto) % Eos % (Auto) % Baso % (Auto) % Neut # (Auto) (1.4-6.5) K/uL Lymph # (Auto) (1.2-3.4) K/uL Mobile # (Auto) (0.11-0.59) K/uL Eos # (Auto) (0-0.5) K/uL Baso # (Auto) (0-0.2) K/uL Immature Gran # (Auto) (0.00-0.02) K/uL Ovalocytes Acanthocytes (Spur) Sodium 138 (136-145) mmol/L Potassium 3.6 (3.5-5.1) mmol/L Chloride 107 (98-107) mmol/L Carbon Dioxide 21 (21-32) mmol/L Anion Gap 11.0 (3-11) BUN 70 H (7-18) mg/dl Creatinine 4.36 H (0.6-1.4) mg/dl Est Cr Clr Drug Dosing 18.5 ml/min Est GFR ( Amer) 14.4 ml/min Est GFR (Non-Af Amer) 12.4 ml/min BUN/Creatinine Ratio 16.1 (10-20) Glucose 94 (70-99) mg/dl Calcium 9.5 (8.5-10.1) mg/dl Total Bilirubin 0.4 (0.2-1) mg/dl AST 23 (15-37) U/L ALT 28 (12-78) Alkaline Phosphatase 94 (45-117) U/L Total Protein 6.9 (6.4-8.2) gm/dl Albumin 3.0 L (3.4-5.0) gm/dl Globulin 3.9 (2.5-4.0) gm/dl Albumin/Globulin Ratio 0.8 L (0.9-2) Lipase 308 (73-393) U/L Urine Color Yellow Urine Appearance Clear (Clear) Urine pH 5.5 (4.5-7.5) Ur Specific [place] 1.011 (1.000-1.030) Urine Protein 2+ H (Negative) Urine Glucose (UA) Negative (Negative) Urine Ketones Negative (Negative) Urine Blood Negative (Negative) Urine Nitrite Negative (Negative) Urine Bilirubin Negative (Negative) Urine Urobilinogen Negative (Negative) Ur Leukocyte Esterase Negative (Negative) Urine WBC (Auto) 1-5 (0-5) /hpf Urine RBC (Auto) 0-4 (0-4) /hpf U Hyaline Cast (Auto) 0 (0-5) /lpf U Epithel Cells (Auto) 0-5 (0-5) /lpf Urine Bacteria (Auto) Negative (Negative) SARS-CoV-2, RNA, NAAT NEGATIVE (NEGATIVE) 07/13/21 Range/Units 09:50 WBC 6.33 (4.8-10.8) K/uL RBC 2.57 L (4.7-6.1) M/uL Hgb 7.9 L (14.0-18.0) g/dL Hct 24.3 L (42-52) % MCV 94.6 (80-100) fL MCH 30.7 (25-34) pg MCHC 32.5 (32-36) g/dL RDW Std Deviation 50.0 H (36.4-46.3) fL RDW Coeff of Hector 14.6 H (11.5-14.5) % Plt Count 308 (130-400) K/uL MPV 8.2 (7.4-10.4) fL Immature Gran % (Auto) 0.0 % Neut % (Auto) 71.9 % Lymph % (Auto) 10.4 % Mobile % (Auto) 15.0 % Eos % (Auto) 2.2 % Baso % (Auto) 0.5 % Neut # (Auto) 4.55 (1.4-6.5) K/uL Lymph # (Auto) 0.66 L (1.2-3.4) K/uL Mobile # (Auto) 0.95 H (0.11-0.59) K/uL Eos # (Auto) 0.14 (0-0.5) K/uL Baso # (Auto) 0.03 (0-0.2) K/uL Immature Gran # (Auto) 0.00 (0.00-0.02) K/uL Ovalocytes 1+ Acanthocytes (Spur) 1+ Sodium (136-145) mmol/L Potassium (3.5-5.1) mmol/L Chloride (98-107) mmol/L Carbon Dioxide (21-32) mmol/L Anion Gap (3-11) BUN (7-18) mg/dl Creatinine (0.6-1.4) mg/dl Est Cr Clr Drug Dosing ml/min Est GFR ( Amer) ml/min Est GFR (Non-Af Amer) ml/min BUN/Creatinine Ratio (10-20) Glucose (70-99) mg/dl Calcium (8.5-10.1) mg/dl Total Bilirubin (0.2-1) mg/dl AST (15-37) U/L ALT (12-78) Alkaline Phosphatase (45-117) U/L Total Protein (6.4-8.2) gm/dl Albumin (3.4-5.0) gm/dl Globulin (2.5-4.0) gm/dl Albumin/Globulin Ratio (0.9-2) Lipase (73-393) U/L Urine Color Urine Appearance (Clear) Urine pH (4.5-7.5) Ur Specific [place] (1.000-1.030) Urine Protein (Negative) Urine Glucose (UA) (Negative) Urine Ketones (Negative) Urine Blood (Negative) Urine Nitrite (Negative) Urine Bilirubin (Negative) Urine Urobilinogen (Negative) Ur Leukocyte Esterase (Negative) Urine WBC (Auto) (0-5) /hpf Urine RBC (Auto) (0-4) /hpf U Hyaline Cast (Auto) (0-5) /lpf U Epithel Cells (Auto) (0-5) /lpf Urine Bacteria (Auto) (Negative) SARS-CoV-2, RNA, NAAT (NEGATIVE) Diagnostic Findings Lumbar Spine CT 07/13/21 09:[address] DOSE: 773.97 mGy.cm HISTORY: lower back pain TECHNIQUE: Multiaxial CT images of the lumbar spine were performed and reformatted in the sagittal and coronal plane without the use of contrast. A dose lowering technique was utilized adhering to the principles of ALARA. COMPARISON: Lumbar spine MRI 06/08/2021. FINDINGS: No acute fractures within the lumbar spine. There is 3 mm of retrolisthesis of L2 on L3, unchanged. Focal indentation/erosion at the inferior endplate of L2 remains unchanged with mild surrounding sclerosis. This favors a Schmorl's node. Posterior decompression and fusion from L3 through L5 with pedicle screws and rods. The hardware appears intact. Mild disc space narrowing at L2-L3 and L5-S1 with small endplate osteophytes consistent with degenerative change. The visualized sacrum is intact. Postoperative changes within the stomach are partially visualized and suggest a prior gastric bypass. An 11 mm hypodense lesion within the right kidney favors a cyst. Partially visualized aneurysmal dilatation of the left common iliac artery measuring up to 2.8 cm in diameter. Paravertebral soft tissues are unremarkable. Evaluation the central canal suboptimal due to the CT technique. There is again noted moderate central canal narrowing at L2-L3 due to a broad-based posterior disc bulge and ligamentum and facet hypertrophy. This is similar to the prior study. There is moderate bilateral neural foraminal narrowing at L2-L3 and L3-L4. There is mild bilateral neural foraminal narrowing at L4-L5. There is moderate to severe left- sided neural foraminal narrowing at L5-S1. This is better appreciated on the recent lumbar spine MRI. IMPRESSION: 1. No significant change compared to the 06/08/2021 lumbar spine MRI. 2. L3-L5 posterior decompression and fusion with pedicle screws and rods. The hardware appears intact. 3. No fractures identified within the lumbar spine. 4. Focal indentations laceration at the inferior endplate of L2 remains unchanged and favors a Schmorl's node. 5. 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 6. Additional degenerative changes as described above. ACT 112: Negative or not required by law. Electronically signed by: Victoriano Mcclain M.D. 07/13/2021 10:21 AM Code Status & VTE Plan Code Status Full code VTE Prophylaxis Plan VTE Prophylaxis will be ordered: Yes PG Care Time/CCT Total # of Minutes Spent Total Time Spent with Patient: Total time spent is greater than 50% in coordination of care (as documented) at patient's floor/unit and/or counseling patient: Coding Level of Care Code 63014 Initial Inpt Care Lvl 3 Diagnoses Abdominal aortic aneurysm I71.4 Presence of rupture: without rupture Neurogenic bowel K59.2 Sleep apnea G47.30 Vitamin D deficiency, unspecified E55.9 Neurogenic bladder N31.9 Generalized osteoarthritis M15.9 Sacral decubitus ulcer, stage IV L89.154 Anxiety F41.9 Atrial fibrillation I48.2 Atrial fibrillation type: permanent Anemia due to chronic kidney disease N18.9; D63.1 Hypertension I10 Hypertension type: essential hypertension Chronic kidney disease, stage IV (severe) N18.4 Hyperlipidemia E78.5 Lumbar spinal stenosis M48.061 Ambulatory dysfunction R26.2 MARINO (acute kidney injury) N17.9 (1) Abdominal aortic aneurysm Presence of rupture: without rupture Qualified Code(s): I71.4 - Abdominal aortic aneurysm, without rupture (2) Atrial fibrillation Atrial fibrillation type: permanent Qualified Code(s): I48.2 - Chronic atrial fibrillation (3) Hypertension Hypertension type: essential hypertension Qualified Code(s): I10 - Essential (primary) hypertension
--- NOTE | 2021-07-13 12:50 | Nephrology Consultation ---
Date of Consultation July 13, 2021 History of Present Illness Reason for Consultation: CKD History of Present Illness Mr. Escobedo is a 75 year old white male who is seen at the request of Dr. Martin for evaluation of CKD. Medical records in the EMR were reviewed today and are summarized as follows: Mr. Escobedo has stage IV CKD w/ baseline Cr 3.8. His renal impairment is attributed to vascular disease and hypertensive nephroscl erosis. His primary systems consultant is Dr. Paul. Mr. Escobedo has completed dialysis education classes and is interested in IHD when needed. He has not yet undergone creation of an AVF. Allergies Allergy/AdvReac Type Severity Reaction Status Date / Time tetracycline Allergy Intermediate HIVES Verified 07/13/21 11:52 morphine AdvReac Mild Nausea Verified 07/13/21 11:52 Home Medications Medication Instructions Recorded Confirmed Type multivitamin with minerals 1 tab PO QAM tab 04/06/18 07/13/21 History cholecalciferol (vitamin D3) 50 50 mcg PO QPM 12/31/19 07/13/21 History mcg (2,000 unit) tablet (Vitamin D3) tramadol 50 mg tablet 50 mg PO Q6H PRN 01/15/20 07/13/21 History azelastine 205.5 mcg (0.15 %) 1 spray INTNAS HS PRN #30 ml 09/04/20 07/13/21 Rx nasal spray minoxidil 10 mg tablet 10 mg PO QAM #90 tab 12/18/20 07/13/21 Rx metoprolol succinate 50 mg 50 mg PO QAM #90 tab 12/26/20 07/13/21 Rx tablet,extended release 24 hr (Toprol XL) methenamine hippurate 1 gram tablet 1 g PO QAM #90 tab 01/18/21 07/13/21 Rx atorvastatin 20 mg tablet (Lipitor) 20 mg PO QPM tab 05/11/21 07/13/21 History darbepoetin nimisha in polysorbat 60 60 mcg SUBCUT MONTHLY 06/12/21 07/13/21 History mcg/0.3 mL in polysorbate injection syringe (Aranesp) alprazolam 0.25 mg tablet 0.25 mg PO DAILY PRN tab 06/18/21 07/13/21 History duloxetine 30 mg capsule,delayed 30 mg PO QAM cap 06/18/21 07/13/21 History release amlodipine 5 mg tablet (Norvasc) 5 mg PO QAM 06/20/21 07/13/21 History calcitriol 0.25 mcg capsule 0.25 mcg PO QAM 06/20/21 07/13/21 History furosemide 40 mg tablet 40 mg PO QAM #90 tab 07/04/21 07/13/21 Rx sodium bicarbonate 650 mg tablet 650 mg PO BID #180 tab 07/04/21 07/13/21 Rx acetaminophen 500 mg tablet 1,000 mg PO DIRECTED PRN 07/13/21 07/13/21 History (Tylenol Extra Strength) apixaban 2.5 mg tablet (Eliquis) 2.5 mg PO BID 07/13/21 07/13/21 History metronidazole 1 % topical gel 1 applic TOPICAL DIRECTED 07/13/21 07/13/21 History (Metrogel) Patient History Medical History Abdominal aortic aneurysm (~2014) S/p Type A dissection with emergent repair in 2014 Later found to have AAA 3.5cm- followed by vascular surgery with medical management Anemia due to chronic kidney disease Anxiety Atrial fibrillation Follows with [facility] cardiology (Dr. Jarvis) On Eliquis BPH with obstruction/lower urinary tract symptoms DENIES ENLARGED PROSTATE Chronic kidney disease, stage IV (severe) Follows with [facility] urology, nephrology/under surveillance, no dialysis at this time History of CHF (congestive heart failure) 2003 Hyperlipidemia Hypertension Lumbar spinal stenosis Neurogenic bladder Self Catheterization since Aortic repair PTSD (post-traumatic stress disorder) POST AORTIC DISSECTION Sleep apnea CPAP Spinal cord cysts Pt states L1 and L2, dx 05[place]2021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 History of revision of total hip arthroplasty left History of rhinoplasty History of tooth extraction History of total knee replacement RT History of total left hip arthroplasty (~12/2019) History of transurethral resection of prostate Nausea and vomiting after administration of anesthetic agent S/P debridement (06/27/21) Excisional Debridement Sacral Decubitus Ulcer down to muscle level 4cm x 6cm - Ranjeet Myers, DO 06/27/2021 S/P total right hip arthroplasty Family History Grandmother Family history of diabetes mellitus Mother Gallbladder disease Father Prostate cancer Myocardial infarction Hypertension Other Family history non-contributory No family history of adverse response to anesthesia Denies family history of Ovarian cancer Breast cancer Colorectal cancer Social History Smoking Status: Never smoker Second Hand Exposure: No (hx -- used to smoke); Hx Alcohol Use: No Hx Substance Use: No Preferred Language: Latvian Communication Ability: Effective Visual Impairment: Limited Hearing Ability: Normal Group Insurance Special Agent Required: No Beliefs That Will Affect Care: None marital status: Current Living Situation: Spouse current occupational status: retired How many Children do You have: 1 Feels Safe at Home: Yes Childhood Exposure to Second-Hand Smoke: Yes (father did ) Diet Comment: low sugar, low phospate caffeine: Yes (tea) during the past year weight has: remained stable Dental Care, Regularly: Yes Physical Activity Frequency: Does not Exercise Physical Activity Frequency Comment: goes to PT twice a week Seatbelt Use: always Sunscreen Use: Yes Do you think of yourself as: straight/heterosexual Gender Identity: Male Assistive Devices: CPAP, Crutches and Glasses Results & Data ([facility]) Vital Signs (Past 12 Hours) Vital Signs Temp Pulse Pulse Resp BP BP Pulse Ox 07/13/21 10:19 88 18 147/92 H 91 07/13/21 10:01 95 07/13/21 09:32 37.5 C 86 20 143/93 H 94 PG Care Time/CCT Total # of Minutes Spent Total Time Spent with Patient: Total time spent is greater than 50% in coordination of care (as documented) at patient's floor/unit and/or counseling patient: Coding
--- NOTE | 2021-07-13 13:24 | Pain Management Consultation ---
Date of Consultation July 13, 2021 Assessment & Plan (1) Lumbar spinal stenosis: (2) Ambulatory dysfunction: (3) Neurogenic bladder: (4) Sacral decubitus ulcer, stage IV: (5) Chronic kidney disease, stage IV (severe): (6) MARINO (acute kidney injury): (7) Neuropathic pain: 1. Patient is not an interventional pain management candidate at this time due to stage IV sacral decubitus ulcer. 2. Recommend initiation of Butrans patch 5 mcg q. weekly, hydrocodone 5/3 25 mg 1 p.o. twice daily, gabapentin 300 mg at bedtime (maximal daily dose secondary to renal disease). Patient was counseled on the risk, benefits, side effects and agrees to proceed. Will require EKG to monitor QTc interval 1 week post initiation of Butrans patch. This may be performed either as an inpatient or outpatient. 3. This patient initially had a pain management consultation for 08/17/2020. This appointment has been canceled and rescheduled for 07/31/2021 as he understands that it may take 5 to 7 days for onset of Butrans patch during which time he will utilize hydrocodone for as needed pain relief. 4. Recommend discontinuation of tramadol as it is providing limited relief at this time. 5. Thank you very much for this consultation. History of Present Illness Attending Physician: Angela Martin MD History of Present Illness 75-year-old male who presented to the [facility] emergency room today with increasing left lower extremity weakness and pain. He states that his pain is predominantly radicular burning shooting in character along his left L1-2 dermatomes. He states he has had this pain for a number of months but his treatment has been complicated secondary to a stage IV sacral decubitus ulcer. He states that he saw Dr. White at [facility] who identified an L1-2 synovial cyst and had planned for facetectomy and removal of the cyst but this was unable to be completed due to sacral decubitus ulcer. In addition he has experience worsening renal function and has been discussing dialysis with his integrated circuit ic layout designer. He denies any trauma as the etiology of his pain but states that in 2014 he had an aortic dissection with some spinal cord ischemia leading to ambulatory dysfunction and motor weakness. Since 2014 he has utilized crutches for assistance with ambulation. In addition he has a neurogenic bladder from the same incident and perform self-catheterization. His who is a retired public health nurse provides the bulk of the history during the interview. She states that they have been working with the wound clinic to improve his sacral decubitus wound and states that there has been a wound VAC placed for the last 2 weeks. He states that he had increasing pain and difficulty moving out of the recliner last evening and sustained a fall onto his bed due to weakness. He denies any loss of consciousness or head injury. He denies any change in bowel or bladder continence, foot drop, fever, chills, night sweats. Previous interventions include Cymbalta, IV hydromorphone, and tramadol. He states that his tramadol only provides about 20% relief on any day. Pain Assessment Full Body Front + Back: 1. 2. Allergies Allergy/AdvReac Type Severity Reaction Status Date / Time tetracycline Allergy Intermediate HIVES Verified 07/13/21 11:52 morphine AdvReac Mild Nausea Verified 07/13/21 11:52 Home Medications Medication Instructions Recorded Confirmed Type multivitamin with minerals 1 tab PO QAM tab 04/06/18 07/13/21 History cholecalciferol (vitamin D3) 50 50 mcg PO QPM 12/31/19 07/13/21 History mcg (2,000 unit) tablet (Vitamin D3) tramadol 50 mg tablet 50 mg PO Q6H PRN 01/15/20 07/13/21 History azelastine 205.5 mcg (0.15 %) 1 spray INTNAS HS PRN #30 ml 09/04/20 07/13/21 Rx nasal spray minoxidil 10 mg tablet 10 mg PO QAM #90 tab 12/18/20 07/13/21 Rx metoprolol succinate 50 mg 50 mg PO QAM #90 tab 12/26/20 07/13/21 Rx tablet,extended release 24 hr (Toprol XL) methenamine hippurate 1 gram tablet 1 g PO QAM #90 tab 01/18/21 07/13/21 Rx atorvastatin 20 mg tablet (Lipitor) 20 mg PO QPM tab 05/11/21 07/13/21 History darbepoetin nimisha in polysorbat 60 60 mcg SUBCUT MONTHLY 06/12/21 07/13/21 History mcg/0.3 mL in polysorbate injection syringe (Aranesp) alprazolam 0.25 mg tablet 0.25 mg PO DAILY PRN tab 06/18/21 07/13/21 History duloxetine 30 mg capsule,delayed 30 mg PO QAM cap 06/18/21 07/13/21 History release amlodipine 5 mg tablet (Norvasc) 5 mg PO QAM 06/20/21 07/13/21 History calcitriol 0.25 mcg capsule 0.25 mcg PO QAM 06/20/21 07/13/21 History furosemide 40 mg tablet 40 mg PO QAM #90 tab 07/04/21 07/13/21 Rx sodium bicarbonate 650 mg tablet 650 mg PO BID #180 tab 07/04/21 07/13/21 Rx acetaminophen 500 mg tablet 1,000 mg PO DIRECTED PRN 07/13/21 07/13/21 History (Tylenol Extra Strength) apixaban 2.5 mg tablet (Eliquis) 2.5 mg PO BID 07/13/21 07/13/21 History metronidazole 1 % topical gel 1 applic TOPICAL DIRECTED 07/13/21 07/13/21 History (Metrogel) Patient History Medical History (Updated 07/13/21 @ 13:27 by Noemy Hidalgo DO) Abdominal aortic aneurysm (~2014) S/p Type A dissection with emergent repair in 2014 Later found to have AAA 3.5cm- followed by vascular surgery with medical management Anemia due to chronic kidney disease Anxiety Atrial fibrillation [place] [facility] [place]) On Eliquis BPH with obstruction/lower urinary tract symptoms DENIES ENLARGED PROSTATE Chronic kidney disease, stage IV (severe) [place] [facility] [place], nephrology/under surveillance, no dialysis at this time History of CHF (congestive heart failure) 2003 Hyperlipidemia Hypertension Lumbar spinal stenosis Neurogenic bladder Self Catheterization since Aortic repair Neuropathic pain PTSD (post-traumatic stress disorder) POST AORTIC DISSECTION Sleep apnea CPAP Spinal cord cysts Pt states L1 and L2, dx 05[place]2021, 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 History of revision of total hip arthroplasty left History of rhinoplasty History of tooth extraction History of total knee replacement RT History of total left hip arthroplasty (~12/2019) History of transurethral resection of prostate Nausea and vomiting after administration of anesthetic agent S/P debridement (06/27/21) Excisional Debridement Sacral Decubitus Ulcer down to muscle level 4cm x 6cm - Ranjeet Myers DO 06/27/2021 S/P total right hip arthroplasty Family History Grandmother Family history of diabetes mellitus Mother Gallbladder disease Father Prostate cancer Myocardial infarction Hypertension Other Family history non-contributory No family history of adverse response to anesthesia Denies family history of Ovarian cancer Breast cancer Colorectal cancer Social History Smoking Status: Never smoker Second Hand Exposure: No (hx -- used to smoke); Hx Alcohol Use: No Hx Substance Use: No Preferred Language: Latvian Communication Ability: Effective Visual Impairment: Limited Hearing Ability: Normal Home Decorator Required: No Beliefs That Will Affect Care: None marital status: Current Living Situation: Spouse current occupational status: retired How many Children do You have: 1 Feels Safe at Home: Yes Childhood Exposure to Second-Hand Smoke: Yes (father did ) Diet Comment: low sugar, low phospate caffeine: Yes (tea) during the past year weight has: remained stable Dental Care, Regularly: Yes Physical Activity Frequency: Does not Exercise Physical Activity Frequency Comment: goes to PT twice a week Seatbelt Use: always Sunscreen Use: Yes Do you think of yourself as: straight/heterosexual Gender Identity: Male Assistive Devices: CPAP, Crutches and Glasses Physical Exam Physical Exam: Constitutional: Well-developed, well-nourished, frail and deconditioned Psych: Awake, alert, and oriented 3 with normal affect and mood. Recent memory appears grossly intact Eyes: Pupils are equally round and reactive to light with normal size pupils, eyelids appear normal Ear, nose, mouth, and throat: Moist nasal and oral membranes, lips and tongues appear normal, no external ear abnormalities are noted Neck: The trachea is midline without deviation and no thyromegaly is noted Respiratory: Normal respiratory effort without distress, no audible wheezes or rhonchi CV: Normal S1 and S2 Chest: Deferred Musculoskeletal: Head is normocephalic and atraumatic, gait not observed, requires assistance to logroll in bed Cervical: Lordotic curve: Normal Range of motion is normal with extension, flexion, side-bending, rotation Strength: Strength is grossly equal bilaterally with 5 out of 5 strength in all planes Lumbar: Lordotic curve: Complete loss of lumbar lordosis with a well-healed midline incision Range of motion is decreased in all planes Tenderness: Moderately tender over the axial midline from thoracolumbar junction to approximately L3 Facet provocation: Negative bilaterally Straight leg raise: Negative on the right positive on the left, not worse with Achilles stretch Step-off injuries: None Strength: Strength is equal bilaterally with 5 out of 5 strength in all planes Sensation of lower extremities: Slightly decreased sensation globally Deep tendon reflexes: Rated at 1+ in bilateral L4 and S1 Myofascial spasm: Mild appreciable spasm over lumbar paravertebral spinous musculature No discrete trigger points noted Greater trochanters: Nontender bilaterally Sacroiliac joints: Nontender bilaterally Pathologic reflexes noted: None Skin: No rashes, lesions, ulcers, or induration noted Neuro: No nystagmus noted, the tongue is midline, the patient is able to rotate their head bilaterally : Deferred Results (Pain Clinic) Diagnostic Review MRI: non enhanced, reports reviewed and findings discussed with patient MRI Findings: 06/08/21 MR lumbar spine wo con CLINICAL HISTORY: Low back pain radiating to the left hip. Previous lumbar spine fusion.. 11/17/2018 COMPARISON: 11/17/2018 TECHNIQUE: Multiplanar multisequence images of the Lumbar Spine were performed without contrast. FINDINGS: Compared to previous examination, the patient is status post interpedicular screw and steven fixation from L3 through L5 with posterior laminectomies at the interval disc spaces. There is no evidence for vertebral body fracture. The heights of the vertebral bodies are maintained. The vertebral bodies are in anatomic alignment. Homogeneous marrow signal is seen without evidence for marrow edema or marrow replacement. T12-L1: The disc space height is maintained. There are no focal disc protrusions or extrusions identified. The thecal sac and epidural fat are maintained. The neural foramen are patent bilaterally. There is no evidence for nerve root encroachment. The facet joints are within normal limits. L1-2: The disc space height is maintained. There are no focal disc protrusions or extrusions identified. The thecal sac and epidural fat are maintained. The neural foramen are patent bilaterally. There is no evidence for nerve root encroachment. The facet joints are within normal limits. L2-3: The disc space height is maintained. Compared to previous examination, there has been interval development of a small broad-based 2 right lateral disc protrusion/herniation. There is encroachment upon the thecal sac anteriorly and asymmetrically upon the right neural foramen. Moderate hypertrophic facet joint disease with thickening of ligamentum flavum is also present bilaterally. The combination of these findings produce moderate central canal stenosis an asymmetric right foraminal stenosis. L3-4: The patient is again status post interpedicular screw and steven fixation with posterior laminectomy. There has been interval decompression of previously identified spinal stenosis . L4-5: The patient is again status post interpedicular screw and steven fixation with posterior laminectomy. There has been interval decompression of previously identified spinal stenosis . L5-S1: Compared to previous examination, there is moderate disc space narrowing with bulging annulus again seen along with cystic degeneration of the disc. There is no evidence for focal disc protrusion/herniation present. Due to the increased amount of epidural fat anterior to the thecal sac at this level, no encroachment upon the thecal sac is seen. However, there is again asymmetric left foraminal encroachment demonstrated. There is now marked left foraminal stenosis and evidence for encroachment upon the left L5 nerve root. Moderate to marked hypertrophic facet joint disease is seen bilaterally. IMPRESSION: 1. Status post interpedicular screw and steven fixation with laminectomies at L3-4 and L4-5. 2. Interval development of moderate central canal stenosis and asymmetric right foraminal stenosis at L2-3, the disc space level above the spinal fusion. 3. Progression of left foraminal stenosis at L5-S1 which is now marked with ev idence for encroachment upon the left L5 nerve root. CT: non enhanced, reports reviewed and findings discussed with patient CT Findings: 07/13/[address] DOSE: 773.97 mGy.cm HISTORY: lower back pain TECHNIQUE: Multiaxial CT images of the lumbar spine were performed and reformatted in the sagittal and coronal plane without the use of contrast. A dose lowering technique was utilized adhering to the principles of ALARA. COMPARISON: Lumbar spine MRI 06/08/2021. FINDINGS: No acute fractures within the lumbar spine. There is 3 mm of retrolisthesis of L2 on L3, unchanged. Focal indentation/erosion at the inferior endplate of L2 remains unchanged with mild surrounding sclerosis. This favors a Schmorl's node. Posterior decompression and fusion from L3 through L5 with pedicle screws and rods. The hardware appears intact. Mild disc space narrowing at L2-L3 and L5-S1 with small endplate osteophytes consistent with degenerative change. The visualized sacrum is intact. Postoperative changes within the stomach are partially visualized and suggest a prior gastric bypass. An 11 mm hypodense lesion within the right kidney favors a cyst. Partially visualized aneurysmal dilatation of the left common iliac artery measuring up to 2.8 cm in diameter. Paravertebral soft tissues are unremarkable. Evaluation the central canal suboptimal due to the CT technique. There is again noted moderate central canal narrowing at L2-L3 due to a broad-based posterior disc bulge and ligamentum and facet hypertrophy. This is similar to the prior study. There is moderate bilateral neural foraminal narrowing at L2-L3 and L3-L4. There is mild bilateral neural foraminal narrowing at L4-L5. There is moderate to severe left- sided neural foraminal narrowing at L5-S1. This is better appreciated on the recent lumbar spine MRI. IMPRESSION: 1. No significant change compared to the 06/08/2021 lumbar spine MRI. 2. L3-L5 posterior decompression and fusion with pedicle screws and rods. The hardware appears intact. 3. No fractures identified within the lumbar spine. 4. Focal indentations laceration at the inferior endplate of L2 remains unchanged and favors a Schmorl's node. 5. 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 6. Additional degenerative changes as described above.
[2021-07-13] MEDS: BUPRENORPHINE 5 MCG/HR TDSY TD SCH (13:54)
[2021-07-13] MEDS ORDERED: HYDROmorphone INJ 0.5 MG/0.5 ML SYR IV PRN (14:55)
[2021-07-13] MEDS ORDERED: POLYETHYLENE (MIRALAX) 17 GM PACK PO PRN (14:55)
[2021-07-13] MEDS ORDERED: HYDROmorphone HCL 2 MG TAB PO PRN (14:55)
[2021-07-13] MEDS ORDERED: ONDANSETRON INJ 2 MG/ML 2 ML VIAL IV PRN (14:55)
[2021-07-13] MEDS ORDERED: ACETAMINOPHEN HOME PACK 500 MG TABLET PO PRN (14:55)
[2021-07-13 16:14] LABS: Alanine Aminotransferase 25 (12-78); Aspartate Aminotransferase 17 U/L (15-37)
[2021-07-13] MEDS ORDERED: metroNIDAZOLE 0.75% TOPICAL GEL 45 GM TUBE TOP PRN (16:16)
[2021-07-13] MEDS: CHECK BUPRENORPHINE PATCH SCH ×2 (18:05→22:57)
[2021-07-13] MEDS: APIXABAN 2.5 MG TAB PO SCH (20:37)
[2021-07-13] MEDS: SODIUM BICARBONATE 650 MG TAB PO SCH (20:37)
[2021-07-13] MEDS: ATORVASTATIN 20 MG TAB PO SCH (20:37)
[2021-07-13] MEDS: CHOLECALCIFEROL 1,000 UNITS 25 MCG TAB PO SCH (20:37)
[2021-07-13] MEDS: GABAPENTIN 300 MG CAP PO SCH (21:47)
[2021-07-13] MEDS: HYDROCODONE/ACETAMOPHEN 5/325MG TAB PO PRN (21:47)
[2021-07-14 05:57] LABS: Basophils # (auto) 0.03 K/uL (0-0.2); Basophils % (auto) 0.5 %; Eosinophils # (auto) 0.12 K/uL (0-0.5); Eosinophils % (auto) 1.9 %; Hematocrit (blood only) 23.1 % (42-52); Hemoglobin 7.6 g/dL (14.0-18.0); Immature Granulocytes # (auto) 0.02 K/uL (0.00-0.02); Immature Granulocytes % (auto) 0.3 %; Lymphocytes # (auto) 0.62 K/uL (1.2-3.4); Lymphocytes % (auto) 9.8 %; Mean Corpuscular Hemoglobin 31.3 pg (25-34); Mean Corpuscular Hgb Conc 32.9 g/dL (32-36); Mean Corpuscular Volume 95.1 fL (80-100); Mean Platelet Volume 8.3 fL (7.4-10.4); Monocytes # (auto) 0.91 K/uL (0.11-0.59); Monocytes % (auto) 14.4 %; Neutrophils # (auto) 4.64 K/uL (1.4-6.5); Neutrophils % (auto) 73.1 %; Platelet Count 301 K/uL (130-400); RDW Coefficient of Variation 14.7 % (11.5-14.5); RDW Standard Deviation 51.6 fL (36.4-46.3); Red Blood Count 2.43 M/uL (4.7-6.1); White Blood Count 6.34 K/uL (4.8-10.8)
[2021-07-14 06:17] LABS: BUN Creatinine Ratio 16.8 (10-20); Calcium 9.2 mg/dl (8.5-10.1); Creatinine Clr Calc Pharmacy 18.8 ml/min; Est GFR (African American) 14.9 ml/min; Est GFR (Non-African American) 12.8 ml/min; Potassium 3.8 mmol/L (3.5-5.1)
[2021-07-14 06:22] LABS: Ferritin 223.3 ng/ml (8-388); Phosphorus 4.9 mg/dl (2.5-4.9)
[2021-07-14 07:09] LABS: Acanthocytes 1+
[2021-07-14] MEDS: METHENAMINE HIPPURATE 1 GM TAB PO SCH (08:34)
[2021-07-14] MEDS: METOPROLOL SUCC 50MG EXT REL TAB PO SCH (08:34)
[2021-07-14] MEDS: minoxidiL 2.5 MG TAB PO SCH (08:34)
[2021-07-14] MEDS: DULoxetine HCL 30 MG CAP PO SCH (08:34)
[2021-07-14] MEDS: amLODIPine BESYLATE 5 MG TAB PO SCH (08:34)
[2021-07-14] MEDS: MULTIVITAMIN TAB PO SCH (08:34)
[2021-07-14] MEDS: SODIUM BICARBONATE 650 MG TAB PO SCH ×2 (08:34→20:59)
[2021-07-14] MEDS: CALCITRIOL 0.25 MCG CAPSULE PO SCH (08:35)
[2021-07-14] MEDS: APIXABAN 2.5 MG TAB PO SCH ×2 (08:35→20:59)
[2021-07-14] MEDS: CHECK BUPRENORPHINE PATCH SCH ×2 (08:35→16:35)
[2021-07-14] MEDS: HYDROCODONE/ACETAMOPHEN 5/325MG TAB PO PRN ×2 (08:51→21:02)
[2021-07-14] MEDS ORDERED: EPOETIN ALFA 40,000 UNITS/ML VIAL SQ STA (08:55)
[2021-07-14] MEDS ORDERED: FUROSEMIDE 40 MG TAB PO SCH (09:00)
--- NOTE | 2021-07-14 10:12 | Nephrology Consultation ---
Date of Consultation July 14, 2021 Assessment & Plan (1) MARINO (acute kidney injury): (2) Chronic kidney disease, stage IV (severe): (3) Sacral decubitus ulcer, stage IV: (4) Anemia due to chronic kidney disease: (5) Metabolic acidosis: Stage 4 CKD b/l cr 3.8, admitted with fall, ambulatory dysfunction, back pain with sacral ulcer, MARINO, cr 5.1. Has would vac for sacral ulcer. No injury from fall. Received NS, cr improved to 4.3, Hb low at 7.9. 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 Will follow Thank you for the consult. History of Present Illness Reason for Consultation: Acute kidney injury with advanced CKD. Attending Physician: Sunil Mendoza DO History of Present Illness Mr. 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 Sylvester presents to the ER yesterday after having a fall at home with worsening weakness of left lower extremity and severe back and left lower extremity pain.No fracture on imaging on admission. He is not able to ambulate at this point. Pain slightly improved with analgesic. Has Stage 4 CKD secondary to vascular disease and hypertensive nephrosclerosis as well h/o ATN. B/L cr has been around 3.8 Electrolytes are acceptable. Guanaco had predialysis education, expressed interest in PD if needed. Renal function has been worsening in the last few weeks with creatinine up to almost the 5.1 range from a baseline of 3.8.Received IV NS 2 L in ER , cr slightly improved to 4.3, electrolyte acceptable. Hb 7.9 with iron deficiency. NaHCO3 added for NAGMA. Complications of chronic kidney disease includes anemia, Metabolic acidosis and secondary hyperparathyroidism, on calcitriol 0.5 mcg daily and NaHCO3 . He is also taking vitamin D3 supplement.Received 1 dose of Epogen in December during hospitalization. Recently completed Venofer 200 mg IV x 5. Remains on Aranesp 60 Q 4 weeks, but iron sat still low at 9%. For general risk-factor modification he is maintained on a statin. He is not on an JAVIER-inhibitor or an ARB. 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 For general risk-factor modification he is maintained on a statin. He is not on an JAVIER-inhibitor or an ARB. Blood pressure is well controlled on amlodipine, minoxidil and metoprolol succinate 50 mg daily. He is in rate controlled atrial fibrillation. He is no longer on anticoagulation. Allergies Allergy/AdvReac Type Severity Reaction Status Date / Time tetracycline Allergy Intermediate HIVES Verified 07/13/21 11:52 morphine AdvReac Mild Nausea Verified 07/13/21 11:52 Home Medications Medication Instructions Recorded Confirmed Type multivitamin with minerals 1 tab PO QAM tab 04/06/18 07/13/21 History cholecalciferol (vitamin D3) 50 50 mcg PO QPM 12/31/19 07/13/21 History mcg (2,000 unit) tablet (Vitamin D3) tramadol 50 mg tablet 50 mg PO Q6H PRN 01/15/20 07/13/21 History azelastine 205.5 mcg (0.15 %) 1 spray INTNAS HS PRN #30 ml 09/04/20 07/13/21 Rx nasal spray minoxidil 10 mg tablet 10 mg PO QAM #90 tab 12/18/20 07/13/21 Rx metoprolol succinate 50 mg 50 mg PO QAM #90 tab 12/26/20 07/13/21 Rx tablet,extended release 24 hr (Toprol XL) methenamine hippurate 1 gram tablet 1 g PO QAM #90 tab 01/18/21 07/13/21 Rx atorvastatin 20 mg tablet (Lipitor) 20 mg PO QPM tab 05/11/21 07/13/21 History darbepoetin nimisha in polysorbat 60 60 mcg SUBCUT MONTHLY 06/12/21 07/13/21 History mcg/0.3 mL in polysorbate injection syringe (Aranesp) alprazolam 0.25 mg tablet 0.25 mg PO DAILY PRN tab 06/18/21 07/13/21 History duloxetine 30 mg capsule,delayed 30 mg PO QAM cap 06/18/21 07/13/21 History release amlodipine 5 mg tablet (Norvasc) 5 mg PO QAM 06/20/21 07/13/21 History calcitriol 0.25 mcg capsule 0.25 mcg PO QAM 06/20/21 07/13/21 History furosemide 40 mg tablet 40 mg PO QAM #90 tab 07/04/21 07/13/21 Rx sodium bicarbonate 650 mg tablet 650 mg PO BID #180 tab 07/04/21 07/13/21 Rx acetaminophen 500 mg tablet 1,000 mg PO DIRECTED PRN 07/13/21 07/13/21 History (Tylenol Extra Strength) apixaban 2.5 mg tablet (Eliquis) 2.5 mg PO BID 07/13/21 07/13/21 History metronidazole 1 % topical gel 1 applic TOPICAL DIRECTED 07/13/21 07/13/21 History (Metrogel) Patient History Medical History (Updated 07/14/21 @ 10:25 by Cheyanne Cano MD) Abdominal aortic aneurysm (~2014) S/p Type A dissection with emergent repair in 2014 Later found to have AAA 3.5cm- followed by vascular surgery with medical management Anemia due to chronic kidney disease Anxiety Atrial fibrillation Follows with [facility] cardiology (Dr. Jarvis) On Eliquis BPH with obstruction/lower urinary tract symptoms DENIES ENLARGED PROSTATE Chronic kidney disease, stage IV (severe) Follows with [facility] urology, nephrology/under surveillance, no dialysis at this time History of CHF (congestive heart failure) 2003 Hyperlipidemia Hypertension Lumbar spinal stenosis Metabolic acidosis Neurogenic bladder Self Catheterization since Aortic repair Neuropathic pain PTSD (post-traumatic stress disorder) POST AORTIC DISSECTION Sleep apnea CPAP Spinal cord cysts Pt states L1 and L2, dx 05/2021, by Dr. 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 History of revision of total hip arthroplasty left History of rhinoplasty History of tooth extraction History of total knee replacement RT History of total left hip arthroplasty (~12/2019) History of transurethral resection of prostate Nausea and vomiting after administration of anesthetic agent S/P debridement (06/27/21) Excisional Debridement Sacral Decubitus Ulcer down to muscle level 4cm x 6cm - Ranjeet Myers DO 06/27/2021 S/P total right hip arthroplasty Family History Grandmother Family history of diabetes mellitus Mother Gallbladder disease Father Prostate cancer Myocardial infarction Hypertension Other Family history non-contributory No family history of adverse response to anesthesia Denies family history of Ovarian cancer Breast cancer Colorectal cancer Social History Smoking Status: Never smoker Second Hand Exposure: No (hx -- used to smoke); Hx Alcohol Use: No Hx Substance Use: No Preferred Language: South Korean Communication Ability: Effective Visual Impairment: Limited Hearing Ability: Normal Communications Manager Required: No Beliefs That Will Affect Care: None marital status: Current Living Situation: Spouse Current Living Situation Comment: Lives with at home current occupational status: retired How many Children do You have: 1 Feels Safe at Home: Yes Childhood Exposure to Second-Hand Smoke: Yes (father did ) Diet Comment: low sugar, low phospate caffeine: Yes (tea) during the past year weight has: remained stable Dental Care, Regularly: Yes Physical Activity Frequency: Does not Exercise Physical Activity Frequency Comment: goes to PT twice a week Seatbelt Use: always Sunscreen Use: Yes Do you think of yourself as: straight/heterosexual Gender Identity: Male Assistive Devices: CPAP, Crutches and Glasses Review of Systems Review of Systems: Detail ROS was done. Physical Exam Constitutional: WD/WN, vitals as above + ill appearing; no acute distress Eyes: + anicteric sclerae ENMT: Ears: no hearing impairment and no external ear abnormality Neck: normal visual inspection Thyroid: no thyromegaly Respiratory: normal respiratory effort; no respiratory distress and no cough Auscultation: lungs clear to auscultation bilaterally Cardiovascular: Rate/Rhythm: regular rate and regular rhythm Heart Sounds: normal S1 and normal S2 Extremities: + edema Gastrointestinal (Abdomen): Inspection/Auscultation: abdomen normal to inspection and normal bowel sounds Percussion/Palpation: abdomen soft; abdomen nontender Musculoskeletal: Extremities: extremities normal to inspection Skin: normal turgor; no rashes Neurologic: no focal motor deficits and not confused Psychiatric: Orientation: alert and oriented x 3 Affect: euthymic affect Results & Data ([facility]) Vital Signs (Past 12 Hours) Vital Signs Temp Pulse Pulse Resp BP Pulse Ox 07/14/21 09:16 78 07/14/21 07:54 36.8 C 73 18 138/87 98 07/14/21 04:49 36.5 C 74 18 125/60 97 07/14/21 00:01 36.4 C L 85 18 107/66 96 07/13/21 23:37 78 PG Care Time/CCT Total # of Minutes Spent Total Time Spent with Patient: Total time spent is greater than 50% in coordination of care (as documented) at patient's floor/unit and/or counseling patient: Coding Level of Care Code 72298 Initial Inpt Care Lvl 3 Diagnoses MARINO (acute kidney injury) N17.9 Chronic kidney disease, stage IV (severe) N18.4 Sacral decubitus ulcer, stage IV L89.154 Anemia due to chronic kidney disease N18.9; D63.1 Metabolic acidosis E87.2
--- NOTE | 2021-07-14 10:18 | Orthopedic Consultation ---
Date of Consultation July 14, 2021 Assessment & Plan (1) Neurogenic claudication due to lumbar spinal stenosis: Assessment lumbar spinal stenosis with neurogenic claudication. Plan patient does have evidence of previous instrumented fusion L3-L4 L4-L5. Appears to be well-healed nicely decompressed. Is adjacent level severe spinal stenosis L2-L3 with facet cyst on the left. This would be concordant with his pain patterns that she describes in today. He does have a component of foraminal disease at L5-S1 on the left. At this point he is not a surgical candidate. I would defer to pain management regarding medications to control his pain. I will see him as needed. History of Present Illness Reason for Consultation: Severe back and left leg pain with weakness Attending Physician: Sunil Mendoza, DO History of Present Illness This is a very pleasant 75-year-old male that has a significant medical history and known severe spinal stenosis. He is in fact scheduled for possible spinal surgery but is currently managing decubitus sacral ulcer that needs to be completely healed prior to such invasive procedure. Patient understands this. He complains mostly of left anterior thigh pain rating down the leg. It is markedly uncomfortable. It is causing breakaway weakness and limitation with ambulation. He is requesting some form of pain control to manage his symptoms while he awaits surgery. Allergies Allergy/AdvReac Type Severity Reaction Status Date / Time tetracycline Allergy Intermediate HIVES Verified 07/13/21 11:52 morphine AdvReac Mild Nausea Verified 07/13/21 11:52 Home Medications Medication Instructions Recorded Confirmed Type multivitamin with minerals 1 tab PO QAM tab 04/06/18 07/13/21 History cholecalciferol (vitamin D3) 50 50 mcg PO QPM 12/31/19 07/13/21 History mcg (2,000 unit) tablet (Vitamin D3) tramadol 50 mg tablet 50 mg PO Q6H PRN 01/15/20 07/13/21 History azelastine 205.5 mcg (0.15 %) 1 spray INTNAS HS PRN #30 ml 09/04/20 07/13/21 Rx nasal spray minoxidil 10 mg tablet 10 mg PO QAM #90 tab 12/18/20 07/13/21 Rx metoprolol succinate 50 mg 50 mg PO QAM #90 tab 12/26/20 07/13/21 Rx tablet,extended release 24 hr (Toprol XL) methenamine hippurate 1 gram tablet 1 g PO QAM #90 tab 01/18/21 07/13/21 Rx atorvastatin 20 mg tablet (Lipitor) 20 mg PO QPM tab 05/11/21 07/13/21 History darbepoetin nimisha in polysorbat 60 60 mcg SUBCUT MONTHLY 06/12/21 07/13/21 History mcg/0.3 mL in polysorbate injection syringe (Aranesp) alprazolam 0.25 mg tablet 0.25 mg PO DAILY PRN tab 06/18/21 07/13/21 History duloxetine 30 mg capsule,delayed 30 mg PO QAM cap 06/18/21 07/13/21 History release amlodipine 5 mg tablet (Norvasc) 5 mg PO QAM 06/20/21 07/13/21 History calcitriol 0.25 mcg capsule 0.25 mcg PO QAM 06/20/21 07/13/21 History furosemide 40 mg tablet 40 mg PO QAM #90 tab 07/04/21 07/13/21 Rx sodium bicarbonate 650 mg tablet 650 mg PO BID #180 tab 07/04/21 07/13/21 Rx acetaminophen 500 mg tablet 1,000 mg PO DIRECTED PRN 07/13/21 07/13/21 History (Tylenol Extra Strength) apixaban 2.5 mg tablet (Eliquis) 2.5 mg PO BID 07/13/21 07/13/21 History metronidazole 1 % topical gel 1 applic TOPICAL DIRECTED 07/13/21 07/13/21 History (Metrogel) Patient History Medical History (Updated 07/14/21 @ 10:17 by Antonio Gilmore DO) Abdominal aortic aneurysm (~2014) S/p Type A dissection with emergent repair in 2014 Later found to have AAA 3.5cm- followed by vascular surgery with medical management Anemia due to chronic kidney disease Anxiety Atrial fibrillation Follows with [facility] cardiology (Dr. Jarvis) On Eliquis BPH with obstruction/lower urinary tract symptoms DENIES ENLARGED PROSTATE Chronic kidney disease, stage IV (severe) Follows with [facility] urology, nephrology/under surveillance, no dialysis at this time History of CHF (congestive heart failure) 2003 Hyperlipidemia Hypertension Lumbar spinal stenosis Neurogenic bladder Self Catheterization since Aortic repair Neuropathic pain PTSD (post-traumatic stress disorder) POST AORTIC DISSECTION Sleep apnea CPAP Spinal cord cysts Pt states L1 and L2, dx [place]2021, [place] [facility] [place] History of arthroplasty of left hip History of arthroscopy RT KNEE History of bladder surgery History of cardiac catheterization 2004 - no stents - 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 History of revision of total hip arthroplasty left History of rhinoplasty History of tooth extraction History of total knee replacement RT History of total left hip arthroplasty (~12/2019) History of transurethral resection of prostate Nausea and vomiting after administration of anesthetic agent S/P debridement (06/27/21) Excisional Debridement Sacral Decubitus Ulcer down to muscle level 4cm x 6cm - Ranjeet Myers DO 06/27/2021 S/P total right hip arthroplasty Family History Grandmother Family history of diabetes mellitus Mother Gallbladder disease Father Prostate cancer Myocardial infarction Hypertension Other Family history non-contributory No family history of adverse response to anesthesia Denies family history of Ovarian cancer Breast cancer Colorectal cancer Social History Smoking Status: Never smoker Second Hand Exposure: No (hx -- used to smoke); Hx Alcohol Use: No Hx Substance Use: No Preferred Language: Irish Communication Ability: Effective Visual Impairment: Limited Hearing Ability: Normal 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 Beliefs That Will Affect Care: None marital status: Current Living Situation: Spouse Current Living Situation Comment: Lives with at home current occupational status: retired How many Children do You have: 1 Feels Safe at Home: Yes Childhood Exposure to Second-Hand Smoke: Yes (father did ) Diet Comment: low sugar, low phospate caffeine: Yes (tea) during the past year weight has: remained stable Dental Care, Regularly: Yes Physical Activity Frequency: Does not Exercise Physical Activity Frequency Comment: goes to PT twice a week Seatbelt Use: always Sunscreen Use: Yes Do you think of yourself as: straight/heterosexual Gender Identity: Male Assistive Devices: CPAP, Crutches and Glasses Physical Exam Physical Exam: On exam he is alert and oriented. He has reasonable strength of plantarflexion dorsiflexion bilaterally. He is comfortable during our discussion. Results & Data ([facility]) Vital Signs (Past 12 Hours) Vital Signs Temp Pulse Pulse Resp BP Pulse Ox 07/14/21 09:16 78 07/14/21 07:54 36.8 C 73 18 138/87 98 07/14/21 04:49 36.5 C 74 18 125/60 97 07/14/21 00:01 36.4 C L 85 18 107/66 96 07/13/21 23:37 78
[2021-07-14] MEDS: IRON SUCROSE 200 MG in 0.9 % SODIUM CHLORIDE 100 ML IV SCH (10:29)
--- NOTE | 2021-07-14 17:54 | Hospitalist Progress Note ---
Date of Service July 14, 2021 Assessment & Plan (1) Ambulatory dysfunction: Plan: 2 different processesbiomechanical pain in the region of his piriformis, as well as lumbar radiculopathy that seems to fit with his L1 problem. -Pain control, OMT, PT/OT eval and treatonce he is able to do basics for transfer/etc., this problem would be safe to have ongoing management as an outpatient (2) Lumbar spinal stenosis: Plan: Appreciate pain management input for pain control, not a surgical candidate at this time due to his sacral ulcer. (3) MARINO (acute kidney injury): Plan: Likely was a bit drynot eating and drinking as well as he normally does, but still taking his Lasix. Is improvingdown to 4.25. Appreciate nephrology i nput. (4) Chronic kidney disease, stage IV (severe): Plan: As above Renally dose medications when appropriate Avoid nephrotoxins Showing improvement -Hold home Lasix 40 mg daily for acute kidney injury as above (5) Anemia due to chronic kidney disease: Plan: Hemoglobin lower than previousalthough still likely overall relates to CKD It does seem that he receives darbepoetin monthly with nephrology Is getting IV iron from nephrology. (6) Sacral decubitus ulcer, stage IV: Plan: Status post debridement by surgery in the beginning of June With wound VAC in place Follows with wound care center -Continue VAC/local wound care (7) Neurogenic bowel: Plan: Does not follow specific bowel regimen but does move his bowels every 3 to 4 days MiraLAX as needed (8) Sleep apnea: Plan: Does not tolerate CPAP (9) Vitamin D deficiency, unspecified: Plan: Continue vitamin D replacement (10) Neurogenic bladder: Plan: Continue self cath strategy (11) Anxiety: Plan: Continue duloxetine 30 mg daily Continue alprazolam as needed (12) Atrial fibrillation: Plan: Rate controlled, anticoagulated (13) Abdominal aortic aneurysm: Plan: With a history of such Follow-up with Dr. Marroquin (14) Hypertension: Plan: Blood pressure is reasonable. Continue to follow (15) Generalized osteoarthritis: Plan: Pain control as needed (16) Hyperlipidemia: Plan: Continue statin (17) Somatic dysfunction of pelvic region: Plan: OMT as above Plan: DVT prophylaxis-Eliquis Disposition-stable for transfer to medical. Hopefully home provided creatinine continues to improve, and his ability to transfer improvesif these [address], then he would likely be L to go home with outpatient PT/OMT, ongoing wound care, and then probably surgical evaluation once his sacral ulcer has healed Admission and Anticipated Discharge Date Admission Date: July 13, 2021 Subjective back pain - mostly 2 discrete places - L hip / buttock from greater trochanter across back and separate pain radiating around to left groin, this feels much more radicular. Notes that with both pains he just has not really been able to get around very welllacking the power to be able to transfer. Feels probably about the same today, although he was able to get out of bed without too much help it sounds like. He also notes that with the pain he probably was not drinking quite as much as normally. He really does not know how his sacral ulcer formed. Review of Systems Review of Systems: All systems reviewed & are unremarkable except as noted in HPI & below Physical Exam Physical Exam: In general he is awake and alert pleasant no distress. HEENT normocephalic atraumatic mucous membranes moist. Breathing unlabored no accessory muscle use good effort. Skin shows no rashes no pallor or icterus. Musculoskeletal/osteopathic shows left sided buttock musculature in the region of piriformis (ranging from his greater trochanter over to his sacrum) high tone, tender, decreased range of motionpost isometric relaxation/muscle energy done x3 repetitions, and while difficult because of his seated position, LAS done to the best my ability as well. Patient tolerated well, there was some improvement in range of motion and tissue texture. Results & Data Results & Data ([facility]) Vital Signs (Past 12 Hours) Vital Signs Temp Pulse Pulse Resp BP Pulse Ox 07/14/21 15:20 98.1 F 67 19 147/84 H 98 07/14/21 11:56 97.7 F 92 H 18 117/75 93 07/14/21 09:16 78 07/14/21 07:54 98.2 F 73 18 138/87 98 PG Care Time/CCT Total # of Minutes Spent Total Time Spent with Patient: Total time spent is greater than 50% in coordination of care (as documented) at patient's floor/unit and/or counseling patient: Coding Level of Care Code 97651 Subseq Hosp Care Lvl 3 Diagnoses Ambulatory dysfunction R26.2 Lumbar spinal stenosis M48.061 MARINO (acute kidney injury) N17.9 Chronic kidney disease, stage IV (severe) N18.4 Anemia due to chronic kidney disease N18.9; D63.1 Sacral decubitus ulcer, stage IV L89.154 Neurogenic bowel K59.2 Sleep apnea G47.30 Vitamin D deficiency, unspecified E55.9 Neurogenic bladder N31.9 Anxiety F41.9 Atrial fibrillation I48.2 Atrial fibrillation type: permanent Abdominal aortic aneurysm I71.4 Presence of rupture: without rupture Hypertension I10 Hypertension type: essential hypertension Generalized osteoarthritis M15.9 Hyperlipidemia E78.5 Somatic dysfunction of pelvic region M99.05 CPT Codes Musculoskeletal - Musculoskeletal: [address] 1-2 Body regions ([id number]) (1) Atrial fibrillation Atrial fibrillation type: permanent Qualified Code(s): I48.2 - Chronic atrial fibrillation (2) Abdominal aortic aneurysm Presence of rupture: without rupture Qualified Code(s): I71.4 - Abdominal aortic aneurysm, without rupture (3) Hypertension Hypertension type: essential hypertension Qualified Code(s): I10 - Essential (primary) hypertension
[2021-07-14] MEDS: CHOLECALCIFEROL 1,000 UNITS 25 MCG TAB PO SCH (21:00)
[2021-07-14] MEDS: ATORVASTATIN 20 MG TAB PO SCH (21:00)
[2021-07-14] MEDS: GABAPENTIN 300 MG CAP PO SCH (21:00)
--- NOTE | 2021-07-15 06:22 | Electrocardiogram Report ---
Test Reason : Blood Pressure : / mmHG Vent. Rate : 074 BPM Atrial Rate : 357 BPM P-R Int : 000 ms QRS Dur : 132 ms QT Int : 400 ms P-R-T Axes : 000 -64 088 degrees QTc Int : 444 ms Atrial fibrillation Left axis deviation Non-specific intra-ventricular conduction block Abnormal ECG When compared with ECG of 14-JUL-2021 10:10, T wave inversion less evident in Lateral leads Confirmed by Mohsen Terrell ([id number]) on 07/15/2021 6:21:55 AM Referred By: REFERRED SELF Confirmed By:Mohsen Terrell
[2021-07-15 06:58] LABS: Albumin Level 2.7 gm/dl (3.4-5.0); Calcium 9.2 mg/dl (8.5-10.1); Creatinine Clr Calc Pharmacy 19.6 ml/min; Est GFR (African American) 15.6 ml/min; Est GFR (Non-African American) 13.5 ml/min; Potassium 3.5 mmol/L (3.5-5.1)
[2021-07-15 07:09] LABS: Phosphorus 3.8 mg/dl (2.5-4.9)
[2021-07-15] MEDS: CHECK BUPRENORPHINE PATCH SCH ×4 (09:37→22:47)
[2021-07-15] MEDS: amLODIPine BESYLATE 5 MG TAB PO SCH (09:38)
[2021-07-15] MEDS: APIXABAN 2.5 MG TAB PO SCH ×2 (09:38→20:00)
[2021-07-15] MEDS: METHENAMINE HIPPURATE 1 GM TAB PO SCH (09:39)
[2021-07-15] MEDS: CALCITRIOL 0.25 MCG CAPSULE PO SCH (09:39)
[2021-07-15] MEDS: minoxidiL 2.5 MG TAB PO SCH (09:39)
[2021-07-15] MEDS: METOPROLOL SUCC 50MG EXT REL TAB PO SCH (09:39)
[2021-07-15] MEDS: DULoxetine HCL 30 MG CAP PO SCH (09:39)
[2021-07-15] MEDS: MULTIVITAMIN TAB PO SCH (09:39)
[2021-07-15] MEDS: SODIUM BICARBONATE 650 MG TAB PO SCH ×2 (09:39→20:00)
[2021-07-15] MEDS: IRON SUCROSE 200 MG in 0.9 % SODIUM CHLORIDE 100 ML IV SCH (09:49)
--- NOTE | 2021-07-15 12:01 | Nephrology Progress Note ---
Date of Service July 15, 2021 Assessment & Plan (1) MARINO (acute kidney injury): (2) Chronic kidney disease, stage IV (severe): (3) Sacral decubitus ulcer, stage IV: (4) Anemia due to chronic kidney disease: (5) Metabolic acidosis: Plan: Stage 4 CKD b/l cr 3.8, admitted with fall, ambulatory dysfunction, back pain with sacral ulcer, MARINO, cr 5.1. Has would vac for sacral ulcer. No injury from fall. Received NS, cr improved to 4.3, Hb low at 7.9. Received HARJINDER 80237 units on 07/14/21 Cr improved to 4.0, close to b/l. Hb stable. --continue Venofer IV, --continue NaHco3, encourage po intake, no need for further iV fluid --dose meds for GFR <15, left arm nephrology precaution --monitor renal function and electrolyte, UO daily Will follow Admission and Anticipated Discharge Date Admission Date: July 13, 2021 Subjective Sylvester was seen and evaluated this am. Overall doing well, denies SOB, significant pain. Renal function stable, cr slightly improved, electrolyte acceptable. BP fair. Review of Systems Review of Systems: Detail ROS was done. Physical Exam Constitutional: WD/WN, vitals as above no acute distress Eyes: + anicteric sclerae Cardiovascular: Rate/Rhythm: regular rate and regular rhythm Skin: no rashes Neurologic: no focal motor deficits and not confused Psychiatric: Orientation: alert and oriented x 3 Affect: euthymic affect Results & Data ([facility]) Vital Signs (Past 12 Hours) Vital Signs Temp Pulse Resp BP Pulse Ox 07/15/21 10:37 36.5 C 80 16 120/68 95 07/15/21 09:58 36.5 C 76 16 120/67 97 07/15/21 07:30 36.9 C 77 18 125/75 97 PG Care Time/CCT Total # of Minutes Spent Total Time Spent with Patient: Total time spent is greater than 50% in coordination of care (as documented) at patient's floor/unit and/or counseling patient: Coding Level of Care Code 94918 Subseq Hosp Care Lvl 2 Diagnoses MARINO (acute kidney injury) N17.9 Chronic kidney disease, stage IV (severe) N18.4 Sacral decubitus ulcer, stage IV L89.154 Anemia due to chronic kidney disease N18.9; D63.1 Metabolic acidosis E87.2
--- NOTE | 2021-07-15 16:23 | Hospitalist Progress Note ---
Date of Service July 15, 2021 Assessment & Plan (1) Ambulatory dysfunction: Plan: 2 different processesbiomechanical pain in the region of his piriformis, as well as lumbar radiculopathy that seems to fit with his L1 problem. -Pain control, OMT, PT/OT eval and treatdue to fall risk and only his able to support him at home, they both prefer to try skilled with rehab emphasis as his disposition from the hospital (2) Lumbar spinal stenosis: Plan: Appreciate pain management input for pain control, not a surgical candidate at this time due to his sacral ulcer. Pain control seems to be doing better (3) MARINO (acute kidney injury): Plan: Likely was a bit drynot eating and drinking as well as he normally does, but still taking his Lasix. Is improving further. Continue to follow (4) Chronic kidney disease, stage IV (severe): Plan: As above Renally dose medications when appropriate Avoid nephrotoxins Showing improvement -Hold home Lasix 40 mg daily for acute kidney injury as aboveshowing improvement (5) Anemia due to chronic kidney disease: Plan: Hemoglobin lower than previousalthough still likely overall relates to CKD It does seem that he receives darbepoetin monthly with nephrology Is getting IV iron from nephrology. (6) Sacral decubitus ulcer, stage IV: Plan: Status post debridement by surgery in the beginning of June With wound VAC in place Follows with wound care center -Continue VAC/local wound care (7) Neurogenic bowel: Plan: Does not follow specific bowel regimen but does move his bowels every 3 to 4 days MiraLAX as needed (8) Sleep apnea: Plan: Does not tolerate CPAP (9) Vitamin D deficiency, unspecified: Plan: Continue vitamin D replacement (10) Neurogenic bladder: Plan: Continue self cath strategy (11) Anxiety: Plan: Continue duloxetine 30 mg daily Continue alprazolam as needed (12) Atrial fibrillation: Plan: Rate controlled, anticoagulated (13) Abdominal aortic aneurysm: Plan: With a history of such Follow-up with Dr. Marroquin (14) Hypertension: Plan: Blood pressure is reasonable. Continue to follow (15) Generalized osteoarthritis: Plan: Pain control as needed (16) Hyperlipidemia: Plan: Continue statin (17) Somatic dysfunction of pelvic region: Plan: OMT as above Plan: DVT prophylaxis-Eliquis Disposition-stable on MedSurg, continue PT/OT, goal of SNF with rehab emphasis. Admission and Anticipated Discharge Date Admission Date: July 13, 2021 Subjective Overall pain is feeling a good bit better, has some pain on the anterior top of his left leg but not much else. Did reasonably well with therapy, but not well enough to clearly be able to go home safely, rather more that it would be possible to go home with appropriate support versus needing rehab. After discussion between him and his , they would prefer to look at skilled (particularly [facility] or [facility]) as a rehab. Otherwise no new complaints Review of Systems Review of Systems: All systems reviewed & are unremarkable except as noted in HPI & below Physical Exam Physical Exam: General he is awake and alert pleasant no distress. HEENT normocephalic atraumatic mucous membranes moist. Breathing unlabored no accessory muscle use good effort. Skin shows no rashes no pallor or icterus. Musculoskeletal/osteopathic with left sided posterior pelvic musculature in the region of piriformis high tone, tender, decreased range of motionLAS/inhibitory pressureimproved. Patient tolerated well. Results & Data Results & Data ([facility]) Vital Signs (Past 12 Hours) Vital Signs Temp Pulse Resp BP Pulse Ox 07/15/21 15:28 99.0 F 89 20 108/69 94 07/15/21 10:37 97.7 F 80 16 120/68 95 07/15/21 09:58 97.7 F 76 16 120/67 97 07/15/21 07:30 98.4 F 77 18 125/75 97 PG Care Time/CCT Total # of Minutes Spent Total Time Spent with Patient: Total time spent is greater than 50% in coordination of care (as documented) at patient's floor/unit and/or counseling patient: Coding Level of Care Code 21233 Subseq Hosp Care Lvl 3 Diagnoses Ambulatory dysfunction R26.2 Lumbar spinal stenosis M48.061 MARINO (acute kidney injury) N17.9 Chronic kidney disease, stage IV (severe) N18.4 Anemia due to chronic kidney disease N18.9; D63.1 Sacral decubitus ulcer, stage IV L89.154 Neurogenic bowel K59.2 Sleep apnea G47.30 Vitamin D deficiency, unspecified E55.9 Neurogenic bladder N31.9 Anxiety F41.9 Atrial fibrillation I48.2 Atrial fibrillation type: permanent Abdominal aortic aneurysm I71.4 Presence of rupture: without rupture Hypertension I10 Hypertension type: essential hypertension Generalized osteoarthritis M15.9 Hyperlipidemia E78.5 Somatic dysfunction of pelvic region M99.05 CPT Codes Musculoskeletal - Musculoskeletal: [address] 1-2 Body regions ([id number]) (1) Atrial fibrillation Atrial fibrillation type: permanent Qualified Code(s): I48.2 - Chronic atrial fibrillation (2) Abdominal aortic aneurysm Presence of rupture: without rupture Qualified Code(s): I71.4 - Abdominal aortic aneurysm, without rupture (3) Hypertension Hypertension type: essential hypertension Qualified Code(s): I10 - Essential (primary) hypertension
[2021-07-15] MEDS: ATORVASTATIN 20 MG TAB PO SCH (19:59)
[2021-07-15] MEDS: GABAPENTIN 300 MG CAP PO SCH (20:00)
[2021-07-15] MEDS: CHOLECALCIFEROL 1,000 UNITS 25 MCG TAB PO SCH (20:00)
[2021-07-15] MEDS: HYDROCODONE/ACETAMOPHEN 5/325MG TAB PO PRN (20:04)
[2021-07-15] MEDS: ACETAMINOPHEN 325 MG TAB PO PRN (22:47)
[2021-07-16 08:27] LABS: Albumin Level 2.6 gm/dl (3.4-5.0); BUN Creatinine Ratio 16.6 (10-20); Calcium 9.1 mg/dl (8.5-10.1); Creatinine Clr Calc Pharmacy 19.5 ml/min; Est GFR (African American) 15.5 ml/min; Est GFR (Non-African American) 13.4 ml/min; Phosphorus 3.5 mg/dl (2.5-4.9); Potassium 3.5 mmol/L (3.5-5.1)
[2021-07-16] MEDS: SODIUM BICARBONATE 650 MG TAB PO SCH ×2 (08:31→19:52)
[2021-07-16] MEDS: APIXABAN 2.5 MG TAB PO SCH ×2 (08:31→19:52)
[2021-07-16] MEDS: CALCITRIOL 0.25 MCG CAPSULE PO SCH (08:32)
[2021-07-16] MEDS: METOPROLOL SUCC 50MG EXT REL TAB PO SCH (08:33)
[2021-07-16] MEDS: amLODIPine BESYLATE 5 MG TAB PO SCH (08:34)
[2021-07-16] MEDS: METHENAMINE HIPPURATE 1 GM TAB PO SCH (08:35)
[2021-07-16] MEDS: DULoxetine HCL 30 MG CAP PO SCH (08:35)
[2021-07-16] MEDS: MULTIVITAMIN TAB PO SCH (08:35)
[2021-07-16] MEDS: CHECK BUPRENORPHINE PATCH SCH ×3 (08:36→23:17)
[2021-07-16] MEDS: minoxidiL 2.5 MG TAB PO SCH (08:36)
[2021-07-16] MEDS: IRON SUCROSE 200 MG in 0.9 % SODIUM CHLORIDE 100 ML IV SCH (08:39)
--- NOTE | 2021-07-16 10:02 | Nephrology Progress Note ---
Date of Service July 16, 2021 Assessment & Plan (1) MARINO (acute kidney injury): (2) Chronic kidney disease, stage IV (severe): (3) Sacral decubitus ulcer, stage IV: (4) Anemia due to chronic kidney disease: (5) Metabolic acidosis: Plan: Stage 4 CKD b/l cr 3.8, admitted with fall, ambulatory dysfunction, back pain with sacral ulcer, MARINO, cr 5.1. Has would vac for sacral ulcer. No injury from fall. Received NS, cr improved to 4.3, Hb low at 7.9. Received HARJINDER [id number] units on 07/14/21 MARINO resolved, Cr improved to 4.0, close to b/l, electrolyte acceptable. Hb stable. BP fair. --continue to hold lasix --continue NaHco3, encourage po intake. --dose meds for GFR <15, left arm nephrology precaution --monitor renal function and electrolyte, UO daily while inpatient. Will sign off, follow at CKD clinic as scheduled. Admission and Anticipated Discharge Date Admission Date: July 13, 2021 Subjective Sylvester was seen and evaluated this am. Overall doing well, denies SOB, pain improved but worsen with movement. Renal function stable, decent UO off of diuretics, electrolyte acceptable. BP fair. Review of Systems Review of Systems: Detail ROS was otherwise unremarkable. Physical Exam 2 Constitutional: WD/WN, vitals as above no acute distress Eyes: + anicteric sclerae Cardiovascular: Rate/Rhythm: regular rate and regular rhythm Skin: no rashes Neurologic: no focal motor deficits and not confused Psychiatric: Orientation: alert and oriented x 3 Affect: euthymic affect Results & Data ([facility]) Vital Signs (Past 12 Hours) Vital Signs Temp Pulse Resp BP Pulse Ox 07/16/21 09:20 37.1 C 87 16 119/65 96 07/16/21 08:40 37.1 C 99 H 16 129/72 96 07/16/21 06:55 37.2 C 77 16 115/70 98 07/15/21 22:28 37.9 C H 90 18 107/64 94 PG Care Time/CCT Total # of Minutes Spent Total Time Spent with Patient: Total time spent is greater than 50% in coordination of care (as documented) at patient's floor/unit and/or counseling patient: Coding Level of Care Code 76355 Subseq Hosp Care Lvl 2 Diagnoses MARINO (acute kidney injury) N17.9 Chronic kidney disease, stage IV (severe) N18.4 Sacral decubitus ulcer, stage IV L89.154 Anemia due to chronic kidney disease N18.9; D63.1 Metabolic acidosis E87.2
[2021-07-16] MEDS: GABAPENTIN 300 MG CAP PO SCH (19:52)
[2021-07-16] MEDS: CHOLECALCIFEROL 1,000 UNITS 25 MCG TAB PO SCH (19:52)
[2021-07-16] MEDS: ATORVASTATIN 20 MG TAB PO SCH (19:52)
--- NOTE | 2021-07-16 20:07 | Hospitalist Progress Note ---
Date of Service July 16, 2021 Assessment & Plan (1) Ambulatory dysfunction: Plan: 2 different processesbiomechanical pain in the region of his piriformis, as well as lumbar radiculopathy that seems to fit with his L1 problem. -Pain control, OMT (held off today given that he is not really having hip or buttock pain) PT/OT eval and treatdue to fall risk and only his able to support him at home, they both prefer to try skilled with rehab emphasis as his disposition from the hospitalstable for this when possible (2) Lumbar spinal stenosis: Plan: Appreciate pain management input for pain control, not a surgical candidate at this time due to his sacral ulcer. Pain control seems to be doing better overall, and really his only persistent pain is that L1/2 radiculopathy, but even that seems better than before. (3) MARINO (acute kidney injury): Plan: Likely was a bit drynot eating and drinking as well as he normally does, but still taking his Lasix. Continue to hold Lasix and follow periodically, creatinine appears to be at a relatively steady state in the low 4 range (4) Chronic kidney disease, stage IV (severe): Plan: As above Renally dose medications when appropriate Avoid nephrotoxins Showing improvement -Hold home Lasix 40 mg daily for acute kidney injury as above (5) Anemia due to chronic kidney disease: Plan: Hemoglobin lower than previousalthough still likely overall relates to CKD It does seem that he receives darbepoetin monthly with nephrology Is getting IV iron from nephrology. (6) Sacral decubitus ulcer, stage IV: Plan: Status post debridement by surgery in the beginning of June With wound VAC in place Follows with wound care center -Continue VAC/local wound care (VAC was to be changed today) (7) Neurogenic bowel: Plan: Does not follow specific bowel regimen but does move his bowels every 3 to 4 days MiraLAX as needed (8) Sleep apnea: Plan: Does not tolerate CPAP (9) Vitamin D deficiency, unspecified: Plan: Continue vitamin D replacement (10) Neurogenic bladder: Plan: Continue self cath strategy (11) Anxiety: Plan: Continue duloxetine 30 mg daily Continue alprazolam as needed (12) Atrial fibrillation: Plan: Rate controlled, anticoagulated (13) Abdominal aortic aneurysm: Plan: With a history of such Follow-up with Dr. Marroquin (14) Hypertension: Plan: Blood pressure is reasonable. Continue to follow (15) Generalized osteoarthritis: Plan: Pain control as needed (16) Hyperlipidemia: Plan: Continue statin (17) Somatic dysfunction of pelvic region: Plan: OMT done yesterday and the day before, held off today given these not really having a hip or buttock pain Plan: DVT prophylaxis-Eliquis Disposition-stable on MedSurg, continue PT/OT, goal of SNF with rehab emphasis. Stable to go once bed available/improved Admission and Anticipated Discharge Date Admission Date: July 13, 2021 Subjective no new complaints hip/buttock pain better just really anterior thigh pain persists. awaiting rehab. no other new complaitns no other new issues Review of Systems Review of Systems: All systems reviewed & are unremarkable except as noted in HPI & below Physical Exam Physical Exam: In general he is awake and alert pleasant no distress. HEENT normocephalic atraumatic mucous membranes moist. Breathing unlabored no accessory muscle use good effort. Skin shows no rashes no pallor or icterus. Neuro without focal deficits. Results & Data Results & Data ([facility]) Vital Signs (Past 12 Hours) Vital Signs Temp Pulse Resp BP Pulse Ox 07/16/21 14:29 98.1 F 80 16 106/57 L 96 07/16/21 09:20 98.8 F 87 16 119/65 96 07/16/21 08:40 98.8 F 99 H 16 129/72 96 PG Care Time/CCT Total # of Minutes Spent Total Time Spent with Patient: Total time spent is greater than 50% in coordination of care (as documented) at patient's floor/unit and/or counseling patient: Coding Level of Care Code 89119 Subseq Hosp Care Lvl 2 Diagnoses Ambulatory dysfunction R26.2 Lumbar spinal stenosis M48.061 MARINO (acute kidney injury) N17.9 Chronic kidney disease, stage IV (severe) N18.4 Anemia due to chronic kidney disease N18.9; D63.1 Sacral decubitus ulcer, stage IV L89.154 Neurogenic bowel K59.2 Sleep apnea G47.30 Vitamin D deficiency, unspecified E55.9 Neurogenic bladder N31.9 Anxiety F41.9 Atrial fibrillation I48.2 Atrial fibrillation type: permanent Abdominal aortic aneurysm I71.4 Presence of rupture: without rupture Hypertension I10 Hypertension type: essential hypertension Generalized osteoarthritis M15.9 Hyperlipidemia E78.5 Somatic dysfunction of pelvic region M99.05 (1) Atrial fibrillation Atrial fibrillation type: permanent Qualified Code(s): I48.2 - Chronic atrial fibrillation (2) Abdominal aortic aneurysm Presence of rupture: without rupture Qualified Code(s): I71.4 - Abdominal aortic aneurysm, without rupture (3) Hypertension Hypertension type: essential hypertension Qualified Code(s): I10 - Essential (primary) hypertension
[2021-07-16] MEDS: HYDROCODONE/ACETAMOPHEN 5/325MG TAB PO PRN (22:02)
[2021-07-17 06:38] LABS: Albumin Level 2.6 gm/dl (3.4-5.0); BUN Creatinine Ratio 15.7 (10-20); Calcium 9.2 mg/dl (8.5-10.1); Creatinine Clr Calc Pharmacy 18.6 ml/min; Est GFR (African American) 14.7 ml/min; Est GFR (Non-African American) 12.7 ml/min; Phosphorus 3.7 mg/dl (2.5-4.9); Potassium 3.6 mmol/L (3.5-5.1)
[2021-07-17] MEDS: CHECK BUPRENORPHINE PATCH SCH ×2 (09:23→16:29)
[2021-07-17] MEDS: APIXABAN 2.5 MG TAB PO SCH ×2 (09:30→19:43)
[2021-07-17] MEDS: amLODIPine BESYLATE 5 MG TAB PO SCH (09:30)
[2021-07-17] MEDS: SODIUM BICARBONATE 650 MG TAB PO SCH ×2 (09:31→19:42)
[2021-07-17] MEDS: DULoxetine HCL 30 MG CAP PO SCH (09:31)
[2021-07-17] MEDS: MULTIVITAMIN TAB PO SCH (09:31)
[2021-07-17] MEDS: METHENAMINE HIPPURATE 1 GM TAB PO SCH (09:32)
[2021-07-17] MEDS: CALCITRIOL 0.25 MCG CAPSULE PO SCH (09:33)
[2021-07-17] MEDS: IRON SUCROSE 200 MG in 0.9 % SODIUM CHLORIDE 100 ML IV SCH (09:50)
[2021-07-17] MEDS: METOPROLOL SUCC 50MG EXT REL TAB PO SCH (10:33)
[2021-07-17] MEDS: minoxidiL 2.5 MG TAB PO SCH (10:33)
[2021-07-17] MEDS: HYDROCODONE/ACETAMOPHEN 5/325MG TAB PO PRN ×2 (11:32→19:45)
--- NOTE | 2021-07-17 17:58 | Hospitalist Progress Note ---
Date of Service July 17, 2021 Assessment & Plan (1) Ambulatory dysfunction: Plan: 2 different processesbiomechanical pain in the region of his piriformis, as well as lumbar radiculopathy that seems to fit with his L1 problem. -Pain control, OMT, PT/OT eval and treatdue to fall risk and only his able to support him at home, they both prefer to try skilled with rehab emphasis as his disposition from the hospitalstable for this when possible (2) Lumbar spinal stenosis: Plan: Appreciate pain management input for pain control, not a surgical candidate at this time due to his sacral ulcer. Pain control seems to be doing better overall, and really his only persistent pain is that L1/2 radiculopathy, but even that seems better than before. Continue PT/OT. Awaiting placement given t hat he is too weak to be safe at home at this time. (3) MARINO (acute kidney injury): Plan: Likely was a bit drynot eating and drinking as well as he normally does, but still taking his Lasix. Continue to hold Lasix and follow periodically, creatinine appears to be at a relatively steady state in the low 4 range, no acute indications for dialysis (4) Chronic kidney disease, stage IV (severe): Plan: As above Renally dose medications when appropriate Avoid nephrotoxins Showing improvement -Hold home Lasix 40 mg daily for acute kidney injury as above (5) Anemia due to chronic kidney disease: Plan: Hemoglobin lower than previousalthough still likely overall relates to CKD It does seem that he receives darbepoetin monthly with nephrology IV iron ordered by nephrology. (6) Sacral decubitus ulcer, stage IV: Plan: Status post debridement by surgery in the beginning of June With wound VAC in place Follows with wound care center -Continue VAC/local wound care (VAC changed today) (7) Neurogenic bowel: Plan: Does not follow specific bowel regimen but does move his bowels every 3 to 4 days MiraLAX as needed (8) Sleep apnea: Plan: Does not tolerate CPAP (9) Vitamin D deficiency, unspecified: Plan: Continue vitamin D replacement (10) Neurogenic bladder: Plan: Continue self cath strategy (11) Anxiety: Plan: Continue duloxetine 30 mg daily Continue alprazolam as needed (12) Atrial fibrillation: Plan: Rate controlled, anticoagulated (13) Abdominal aortic aneurysm: Plan: With a history of such Follow-up with Dr. Marroquin (14) Hypertension: Plan: Blood pressure is reasonable. Continue to follow (15) Generalized osteoarthritis: Plan: Pain control as needed (16) Hyperlipidemia: Plan: Continue statin (17) Somatic dysfunction of pelvic region: Plan: OMT as above Plan: DVT prophylaxis-Eliquis Disposition-stable on MedSurg, continue PT/OT, goal of SNF with rehab emphasis. Stable to go once bed available/approved Admission and Anticipated Discharge Date Admission Date: July 13, 2021 Subjective hip pain came back some front of leg pain mostly only there. wound vac changed. Otherwise still waiting on placement. Review of Systems Review of Systems: All systems reviewed & are unremarkable except as noted in HPI & below Physical Exam Physical Exam: In general he is awake and alert pleasant no distress. HEENT normocephalic atraumatic mucous membranes moist. Breathing unlabored no acces aby muscle use good effort. Skin shows no rashes no pallor or icterus. Neuro without focal deficits. Musculoskeletal/osteopathic shows left sided buttocks musculature in the region of piriformis to be high tone, tender, decreased range of motionpost isometric relaxation and LAS/inhibitory pressure done with some improvement. Patient tolerated well. Results & Data Results & Data ([facility]) Vital Signs (Past 12 Hours) Vital Signs Temp Pulse Resp BP Pulse Ox 07/17/21 15:07 99.3 F 84 16 113/61 94 07/17/21 10:31 87 119/62 96 07/17/21 09:27 89 103/61 07/17/21 07:34 98.4 F 80 16 97/62 L 96 PG Care Time/CCT Total # of Minutes Spent Total Time Spent with Patient: Total time spent is greater than 50% in coordination of care (as documented) at patient's floor/unit and/or counseling patient: Coding Level of Care Code 23553 Subseq Hosp Care Lvl 2 Diagnoses Ambulatory dysfunction R26.2 Lumbar spinal stenosis M48.061 MARINO (acute kidney injury) N17.9 Chronic kidney disease, stage IV (severe) N18.4 Anemia due to chronic kidney disease N18.9; D63.1 Sacral decubitus ulcer, stage IV L89.154 Neurogenic bowel K59.2 Sleep apnea G47.30 Vitamin D deficiency, unspecified E55.9 Neurogenic bladder N31.9 Anxiety F41.9 Atrial fibrillation I48.2 Atrial fibrillation type: permanent Abdominal aortic aneurysm I71.4 Presence of rupture: without rupture Hypertension I10 Hypertension type: essential hypertension Generalized osteoarthritis M15.9 Hyperlipidemia E78.5 Somatic dysfunction of pelvic region M99.05 CPT Codes Musculoskeletal - Musculoskeletal: [address] 1-2 Body regions ([id number]) (1) Abdominal aortic aneurysm Presence of rupture: without rupture Qualified Code(s): I71.4 - Abdominal aortic aneurysm, without rupture (2) Atrial fibrillation Atrial fibrillation type: permanent Qualified Code(s): I48.2 - Chronic atrial fibrillation (3) Hypertension Hypertension type: essential hypertension Qualified Code(s): I10 - Essential (primary) hypertension
[2021-07-17] MEDS: GABAPENTIN 300 MG CAP PO SCH (19:42)
[2021-07-17] MEDS: CHOLECALCIFEROL 1,000 UNITS 25 MCG TAB PO SCH (19:42)
[2021-07-17] MEDS: ATORVASTATIN 20 MG TAB PO SCH (19:43)
[2021-07-18 07:06] LABS: Albumin Level 2.4 gm/dl (3.4-5.0); BUN Creatinine Ratio 17.2 (10-20); Calcium 8.9 mg/dl (8.5-10.1); Creatinine Clr Calc Pharmacy 19.7 ml/min; Est GFR (African American) 15.8 ml/min; Est GFR (Non-African American) 13.6 ml/min; Phosphorus 3.6 mg/dl (2.5-4.9); Potassium 3.4 mmol/L (3.5-5.1)
[2021-07-18] MEDS ORDERED: POTASSIUM CHLORIDE CRTAB 20 MEQ TABCR PO STA (08:32)
[2021-07-18] MEDS: CALCITRIOL 0.25 MCG CAPSULE PO SCH (09:23)
[2021-07-18] MEDS: SODIUM BICARBONATE 650 MG TAB PO SCH ×2 (09:24→19:42)
[2021-07-18] MEDS: METHENAMINE HIPPURATE 1 GM TAB PO SCH (09:24)
[2021-07-18] MEDS: DULoxetine HCL 30 MG CAP PO SCH (09:24)
[2021-07-18] MEDS: MULTIVITAMIN TAB PO SCH (09:24)
[2021-07-18] MEDS: METOPROLOL SUCC 50MG EXT REL TAB PO SCH (09:24)
[2021-07-18] MEDS: minoxidiL 2.5 MG TAB PO SCH (09:24)
[2021-07-18] MEDS: APIXABAN 2.5 MG TAB PO SCH ×2 (09:24→19:43)
[2021-07-18] MEDS: CHECK BUPRENORPHINE PATCH SCH ×3 (09:25→17:15)
[2021-07-18] MEDS: HYDROCODONE/ACETAMOPHEN 5/325MG TAB PO PRN ×2 (09:29→19:42)
[2021-07-18] MEDS: amLODIPine BESYLATE 5 MG TAB PO SCH (10:31)
--- NOTE | 2021-07-18 18:06 | Hospitalist Progress Note ---
Date of Service July 18, 2021 Assessment & Plan (1) Ambulatory dysfunction: Plan: 2 different processesbiomechanical pain in the region of his piriformis, as well as lumbar radiculopathy that seems to fit with his L1 problem. -Pain control, OMT, PT/OT eval and treatdue to fall risk and only his able to support him at home, they both prefer to try skilled with rehab emphasis [facility] (2) Lumbar spinal stenosis: Plan: Appreciate pain management input for pain control, not a surgical candidate at this time due to his sacral ulcer. Pain control seems to be doing better overall, and really his only persistent pain is that L1/2 radiculopathy, but even that seems better than before. Continue PT/OT. Awaiting placement (SNF/rehab emphasis) given that he is too weak to be safe at home at this time. (3) MARINO (acute kidney injury): Plan: Likely was a bit drynot eating and drinking as well as he normally does, but still taking his Lasix. Continue to hold Lasix and follow periodically, creatinine appears to be at a relatively steady state in the low 4 range, no acute indications for dialysis although overall apperas to be headed in that direction (4) Chronic kidney disease, stage IV (severe): Plan: As above Renally dose medications when appropriate Avoid nephrotoxins -Hold home Lasix 40 mg daily for acute kidney injury as above (5) Anemia due to chronic kidney disease: Plan: Hemoglobin lower than previousalthough still likely overall relates to CKD It does seem that he receives darbepoetin monthly with nephrology IV iron ordered by nephrology. (6) Sacral decubitus ulcer, stage IV: Plan: Status post debridement by surgery in the beginning of June With wound VAC in place Follows with wound care center -Continue VAC/local wound care (VAC changed today) -d/w wound nurse - looks as though repeat debridement may be needed. (7) Neurogenic bowel: Plan: Does not follow specific bowel regimen but does move his bowels every 3 to 4 days MiraLAX as needed (8) Sleep apnea: Plan: Does not tolerate CPAP (9) Vitamin D deficiency, unspecified: Plan: Continue vitamin D replacement (10) Neurogenic bladder: Plan: Continue self cath strategy (11) Anxiety: Plan: Continue duloxetine 30 mg daily Continue alprazolam as needed (12) Atrial fibrillation: Plan: Rate controlled, anticoagulated (13) Abdominal aortic aneurysm: Plan: With a history of such Follow-up with Dr. Marroquin (14) Hypertension: Plan: Blood pressure is reasonable. Continue to follow (15) Generalized osteoarthritis: Plan: Pain control as needed (16) Hyperlipidemia: Plan: Continue statin (17) Somatic dysfunction of pelvic region: Plan: OMT done periodically through his stay Plan: DVT prophylaxis-Eliquis Disposition-stable on MedSurg, continue PT/OT, goal of SNF with rehab emphasis. Stable to go once bed available/approved Admission and Anticipated Discharge Date Admission Date: July 13, 2021 Subjective feeling about the same overall no new issues or copmlaints - pain in buttock a bit better today, pain in anterior thigh about the same - worse w flexion at first - can transfer some - lots of pain during the transfer, then when in chair pain settles down after a while. still awaiting placement. Review of Systems Review of Systems: All systems reviewed & are unremarkable except as noted in HPI & below Physical Exam Physical Exam: gen aaox3 pleasant nad heent nc at mmm breathing unlabored no accessory muscles good effort skin no rashes no pallor or icterus Results & Data Results & Data ([facility]) Vital Signs (Past 12 Hours) Vital Signs Temp Pulse Resp BP Pulse Ox 07/18/21 07:22 99.0 F 82 16 122/73 97 PG Care Time/CCT Total # of Minutes Spent Total Time Spent with Patient: Total time spent is greater than 50% in coordination of care (as documented) at patient's floor/unit and/or counseling patient: Coding Level of Care Code 66551 Subseq Hosp Care Lvl 2 Diagnoses Ambulatory dysfunction R26.2 Lumbar spinal stenosis M48.061 MARINO (acute kidney injury) N17.9 Chronic kidney disease, stage IV (severe) N18.4 Anemia due to chronic kidney disease N18.9; D63.1 Sacral decubitus ulcer, stage IV L89.154 Neurogenic bowel K59.2 Sleep apnea G47.30 Vitamin D deficiency, unspecified E55.9 Neurogenic bladder N31.9 Anxiety F41.9 Atrial fibrillation I48.2 Atrial fibrillation type: permanent Abdominal aortic aneurysm I71.4 Presence of rupture: without rupture Hypertension I10 Hypertension type: essential hypertension Generalized osteoarthritis M15.9 Hyperlipidemia E78.5 Somatic dysfunction of pelvic region M99.05 (1) Atrial fibrillation Atrial fibrillation type: permanent Qualified Code(s): I48.2 - Chronic atrial fibrillation (2) Abdominal aortic aneurysm Presence of rupture: without rupture Qualified Code(s): I71.4 - Abdominal aortic aneurysm, without rupture (3) Hypertension Hypertension type: essential hypertension Qualified Code(s): I10 - Essential (primary) hypertension
--- NOTE | 2021-07-18 19:27 | Surgery Consultation ---
Date of Consultation July 18, 2021 Assessment & Plan (1) Sacral decubitus ulcer, stage IV: Due to the worsening appearance of patient's sacral decubitus ulcer we recommend the following: Tentatively plan on surgical debridement on either 07/23/2021 or 07/24/2021 Patient takes Eliquis and according to records patient has received a dose this morning. I discussed with the medical service and we would like the Eliquis to be held a minimum of 3 days prior to planned surgery. If surgery is performed on 122 his last dose before surgery should be the evening dose on 07/19/2021 Review of patient's labs show that he has a low albumin. May be worthwhile to check a prealbumin to get a better idea of his nutritional status and then make attempts to improve his nutritional status to promote wound healing Additional recommendations be forthcoming based on operative findings. Supervising Physician Co-Signing Physician Notes I personally saw and evaluated the patient with Alex Yang PA-C and agree with the assessment and plan. 75-year-old male with chronic stage IV sacral decubitus ulcer His wound will require operative debridement He needs to hold his Eliquis for 3 days prior to this We will tentatively plan on debridement July 23 Wound care consult We will follow History of Present Illness Reason for Consultation: Sacral decubitus ulcer Attending Physician: Sunil Mendoza DO History of Present Illness This is a 75-year-old male who under went excisional debridement of his sacral decubitus ulcer on 06/27/[address] Ranjeet Myers. On this date the sacral ulcer was deemed to be stage IV and was approximate 4 cm x 6 cm in size. Since debridement the patient has been discharged home and he has been followed at the wound care center where patient was noted to have some necrotic tissue which was debrided at the bedside at the wound care center. Patient is also had a wound VAC implemented for care of this wound along with the Santyl in the wound base. Patient is subsequent been readmitted to [facility] secondary to ambulatory dysfunction. His amatory dysfunction is in part due to spinal stenosis. He has then been seen by Dr. Gilmore of orthopedic/spine surgery and the patient is not felt to be a surgical candidate at this time due to his sacral decubitus ulcer. The patient continues to have a wound VAC along with local wound care employed in the care of his sacral decubitus ulcer. We were asked to see the patient today as patient was noted to have worsening of his sacral decubitus. At the time of my visit the wound was covered with a dressing and back and was not taken down however wound care images from earlier today were reviewed. Patient is noted to have a sacral decubitus ulcer measuring approximately 7 cm x 5 cm with black eschar necrotic tissue within the wound. The wound care nurse has recommended surgical consultation for consideration of further debridement. I did visit with the patient at bedside and he notes that the area is slightly painful. He denies any fevers, shakes, chills. (Review of records show that he did have one low-grade fever approximately 2 days ago that has resolved). Patient notes that he spends most of the day in bed as his ambulatory dysfunction prevents him from dissipating in much physical activity. He does note that he tries to shift his weight in bed to offload pressure on the wound. Patient's diagnostics were reviewed and patient did have cultures taken from his previous sacral debridement. Cultures did grow mixed milo. Patient's most recent labs included a chemistry from today which showed a sodium of 132 and potassium is 3.4. His BUN and creatinine were noted to be 70 and 4.0. This level of creatinine appears to be near the patient's baseline for the last month. Patient's albumin is noted to be 2.4 on today's labs. His most recent CBC was from 1217 of this year that showed a normal white blood cell count and a hemoglobin and hematocrit of 7.6 and 23.1. Platelet count is noted to be 301,000. At the time of my interview is resting comfortably in bed in no distress. Allergies Allergy/AdvReac Type Severity Reaction Status Date / Time tetracycline Allergy Intermediate HIVES Verified 07/13/21 11:52 morphine AdvReac Mild Nausea Verified 07/13/21 11:52 Home Medications Medication Instructions Recorded Confirmed Type multivitamin with minerals 1 tab PO QAM tab 04/06/18 07/13/21 History cholecalciferol (vitamin D3) 50 50 mcg PO QPM 12/31/19 07/13/21 History mcg (2,000 unit) tablet (Vitamin D3) tramadol 50 mg tablet 50 mg PO Q6H PRN 01/15/20 07/13/21 History azelastine 205.5 mcg (0.15 %) 1 spray INTNAS HS PRN #30 ml 09/04/20 07/13/21 Rx nasal spray minoxidil 10 mg tablet 10 mg PO QAM #90 tab 12/18/20 07/13/21 Rx metoprolol succinate 50 mg 50 mg PO QAM #90 tab 12/26/20 07/13/21 Rx tablet,extended release 24 hr (Toprol XL) methenamine hippurate 1 gram tablet 1 g PO QAM #90 tab 01/18/21 07/13/21 Rx atorvastatin 20 mg tablet (Lipitor) 20 mg PO QPM tab 05/11/21 07/13/21 History darbepoetin nimisha in polysorbat 60 60 mcg SUBCUT MONTHLY 06/12/21 07/13/21 History mcg/0.3 mL in polysorbate injection syringe (Aranesp) alprazolam 0.25 mg tablet 0.25 mg PO DAILY PRN tab 06/18/21 07/13/21 History duloxetine 30 mg capsule,delayed 30 mg PO QAM cap 06/18/21 07/13/21 History release amlodipine 5 mg tablet (Norvasc) 5 mg PO QAM 06/20/21 07/13/21 History calcitriol 0.25 mcg capsule 0.25 mcg PO QAM 06/20/21 07/13/21 History furosemide 40 mg tablet 40 mg PO QAM #90 tab 07/04/21 07/13/21 Rx sodium bicarbonate 650 mg tablet 650 mg PO BID #180 tab 07/04/21 07/13/21 Rx acetaminophen 500 mg tablet 1,000 mg PO DIRECTED PRN 07/13/21 07/13/21 History (Tylenol Extra Strength) apixaban 2.5 mg tablet (Eliquis) 2.5 mg PO BID 07/13/21 07/13/21 History metronidazole 1 % topical gel 1 applic TOPICAL DIRECTED 07/13/21 07/13/21 History (Metrogel) Patient History Medical History Abdominal aortic aneurysm (~2014) S/p Type A dissection with emergent repair in 2014 Later found to have AAA 3.5cm- followed by vascular surgery with medical management Anemia due to chronic kidney disease Anxiety Atrial fibrillation Follows with [facility] cardiology (Dr. Jarvis) On Eliquis BPH with obstruction/lower urinary tract symptoms DENIES ENLARGED PROSTATE Chronic kidney disease, stage IV (severe) Follows with [facility] urology, nephrology/under surveillance, no dialysis at this time History of CHF (congestive heart failure) 2003 Hyperlipidemia Hypertension Lumbar spinal stenosis Metabolic acidosis Neurogenic bladder Self Catheterization since Aortic repair Neuropathic pain PTSD (post-traumatic stress disorder) POST AORTIC DISSECTION Sleep apnea CPAP Spinal cord cysts Pt states L1 and L2, dx 05/2021, by Dr. 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 History of revision of total hip arthroplasty left History of rhinoplasty History of tooth extraction History of total knee replacement RT History of total left hip arthroplasty (~12/2019) History of transurethral resection of prostate Nausea and vomiting after administration of anesthetic agent S/P debridement (06/27/21) Excisional Debridement Sacral Decubitus Ulcer down to muscle level 4cm x 6cm - Ranjeet Myers, DO 06/27/2021 S/P total right hip arthroplasty Family History Grandmother Family history of diabetes mellitus Mother Gallbladder disease Father Prostate cancer Myocardial infarction Hypertension Other Family history non-contributory No family history of adverse response to anesthesia Denies family history of Ovarian cancer Breast cancer Colorectal cancer Social History Smoking Status: Never smoker Second Hand Exposure: No (hx -- used to smoke); Hx Alcohol Use: No Hx Substance Use: No Preferred Language: Emirati Communication Ability: Effective Visual Impairment: Limited Hearing Ability: Normal Lining Layer Required: No Beliefs That Will Affect Care: None marital status: Current Living Situation: Spouse Current Living Situation Comment: Lives with at home current occupational status: retired How many Children do You have: 1 Feels Safe at Home: Yes Childhood Exposure to Second-Hand Smoke: Yes (father did ) Diet Comment: low sugar, low phospate caffeine: Yes (tea) during the past year weight has: remained stable Dental Care, Regularly: Yes Physical Activity Frequency: Does not Exercise Physical Activity Frequency Comment: goes to PT twice a week Seatbelt Use: always Sunscreen Use: Yes Do you think of yourself as: straight/heterosexual Gender Identity: Male Assistive Devices: Glasses and Walker Review of Systems Constitutional: as per Subjective / HPI and + fever (1 low-grade fever noted proximally 2 days ago that has resolved); no chills Eyes: + corrective lenses Ear, Nose, Mouth, Throat: no ear pain Respiratory: no cough and no dyspnea Cardiovascular: no chest pain Gastrointestinal: no abdominal pain Genitourinary: no dysuria Musculoskeletal: + back pain Integumentary: no rash Neurologic: + gait abnormality and + unsteadiness Physical Exam Physical Exam: Wound VAC in place over sacral decubitus ulcer Constitutional: well developed and well nourished; no acute distress Eyes: Wears glasses ENMT: Ears: no hearing impairment Mouth: no oropharynx abnormality Neck: trachea midline Respiratory: normal respiratory effort, lungs clear to auscultation Cardiovascular: Rate/Rhythm: + irregularly irregular Gastrointestinal (Abdomen): Soft and nontender Musculoskeletal: No calf tenderness Skin: no rashes Neurologic: moves all extremities Psychiatric: A+Ox3, euthymic affect PG Care Time/CCT Total # of Minutes Spent Total Time Spent with Patient: Total time spent is greater than 50% in coordination of care (as documented) at patient's floor/unit and/or counseling patient: Coding Level of Care Code 09155 Inpt Consult Level 5 Diagnoses Sacral decubitus ulcer, stage IV L89.154
[2021-07-18] MEDS: ATORVASTATIN 20 MG TAB PO SCH (19:43)
[2021-07-18] MEDS: GABAPENTIN 300 MG CAP PO SCH (19:43)
[2021-07-18] MEDS: CHOLECALCIFEROL 1,000 UNITS 25 MCG TAB PO SCH (19:43)
[2021-07-19] MEDS: CHECK BUPRENORPHINE PATCH SCH ×4 (00:21→23:06)
[2021-07-19] MEDS: HYDROCODONE/ACETAMOPHEN 5/325MG TAB PO PRN (08:42)
[2021-07-19] MEDS: DULoxetine HCL 30 MG CAP PO SCH (08:43)
[2021-07-19] MEDS: METOPROLOL SUCC 50MG EXT REL TAB PO SCH (08:43)
[2021-07-19] MEDS: SODIUM BICARBONATE 650 MG TAB PO SCH ×2 (08:43→19:46)
[2021-07-19] MEDS: APIXABAN 2.5 MG TAB PO SCH ×2 (08:43→19:47)
[2021-07-19] MEDS: CALCITRIOL 0.25 MCG CAPSULE PO SCH (08:43)
[2021-07-19] MEDS: amLODIPine BESYLATE 5 MG TAB PO SCH (08:43)
[2021-07-19] MEDS: MULTIVITAMIN TAB PO SCH (08:43)
[2021-07-19] MEDS: minoxidiL 2.5 MG TAB PO SCH (08:44)
[2021-07-19] MEDS: METHENAMINE HIPPURATE 1 GM TAB PO SCH (08:44)
[2021-07-19 09:39] LABS: Hematocrit (blood only) 24.2 % (42-52); Hemoglobin 7.9 g/dL (14.0-18.0); Mean Corpuscular Hemoglobin 30.9 pg (25-34); Mean Corpuscular Hgb Conc 32.6 g/dL (32-36); Mean Corpuscular Volume 94.5 fL (80-100); Mean Platelet Volume 8.1 fL (7.4-10.4); Platelet Count 328 K/uL (130-400); RDW Coefficient of Variation 14.7 % (11.5-14.5); RDW Standard Deviation 50.1 fL (36.4-46.3); Red Blood Count 2.56 M/uL (4.7-6.1); White Blood Count 12.31 K/uL (4.8-10.8)
[2021-07-19 09:56] LABS: Acanthocytes 1+; Basophils # (auto) 0.02 K/uL (0-0.2); Basophils % (auto) 0.2 %; Eosinophils # (auto) 0.15 K/uL (0-0.5); Eosinophils % (auto) 1.2 %; Immature Granulocytes # (auto) 0.02 K/uL (0.00-0.02); Immature Granulocytes % (auto) 0.2 %; Lymphocytes # (auto) 0.73 K/uL (1.2-3.4); Lymphocytes % (auto) 5.9 %; Monocytes # (auto) 0.46 K/uL (0.11-0.59); Monocytes % (auto) 3.7 %; Neutrophils # (auto) 10.93 K/uL (1.4-6.5); Neutrophils % (auto) 88.8 %; Ovalocytes 1+; Schistocytes 1+
[2021-07-19 10:10] LABS: Albumin Level 2.7 gm/dl (3.4-5.0); BUN Creatinine Ratio 17.3 (10-20); Calcium 9.3 mg/dl (8.5-10.1); Potassium 3.6 mmol/L (3.5-5.1)
[2021-07-19 10:11] LABS: Phosphorus 3.6 mg/dl (2.5-4.9)
--- NOTE | 2021-07-19 13:26 | Surgery Progress Note ---
Date of Service July 19, 2021 Assessment & Plan (1) Sacral decubitus ulcer, stage IV: Plan: patient here and surgery consulted for worsening sacral decub ulcer. was debrided earlier this month wound care pictures reviewed pt is on eliquis, will need held 3 days prior to OR. Planning for surgical debridement on friday. please hold eliquis after dose tonight currently wearing wound vac, will talk to wound care to see if it should continue for now NPO at MD day prior to OR Admission and Anticipated Discharge Date Admission Date: July 13, 2021 Supervising Physician Co-Signing Physician Notes I personally saw and evaluated the patient with Alicia Barajas PA-C and agree with the assessment and plan. 75-year-old male with chronic stage IV sacral decubitus ulcer in need of debridement We will plan on debridement July 23 after his Eliquis has been held Continue to have wound care following the patient We will continue to follow Subjective Patient sitting up in chair eating lunch. Says he came into the hospital with leg complaints. Physical Exam Physical Exam: awake/alert, sitting up in bed Results & Data ([facility]) Vital Signs (Past 12 Hours) Vital Signs Temp Pulse Resp BP Pulse Ox 07/19/21 08:36 80 18 137/75 07/19/21 07:03 36.9 C 94 H 18 102/58 L 95 PG Care Time/CCT Total # of Minutes Spent Total Time Spent with Patient: Total time spent is greater than 50% in coordination of care (as documented) at patient's floor/unit and/or counseling patient: Coding Level of Care Code 22064 Subseq Hosp Care Lvl 1 Diagnoses Sacral decubitus ulcer, stage IV L89.154
[2021-07-19] MEDS: ATORVASTATIN 20 MG TAB PO SCH (19:46)
[2021-07-19] MEDS: CHOLECALCIFEROL 1,000 UNITS 25 MCG TAB PO SCH (19:46)
[2021-07-19] MEDS: GABAPENTIN 300 MG CAP PO SCH (19:46)
--- NOTE | 2021-07-19 19:54 | Hospitalist Progress Note ---
Date of Service July 19, 2021 Assessment & Plan (1) Ambulatory dysfunction: Plan: 2 different processesbiomechanical pain in the region of his piriformis, as well as lumbar radiculopathy that seems to fit with his L1 problem. -Pain control, OMT, PT/OT eval and treatdue to fall risk and only his able to support him at home, they both prefer to try skilled with rehab emphasis [facility] (2) Lumbar spinal stenosis: Plan: Appreciate pain management input for pain control, not a surgical candidate at this time due to his sacral ulcer. Pain control seems to be doing better overall, and really his only persistent pain is that L1/2 radiculopathy, but even that seems better than before. Continue PT/OT. Still awaiting placement (SNF/rehab emphasis) given that he is too weak to be safe at home at this time. (3) MARINO (acute kidney injury): Plan: Likely was a bit drynot eating and drinking as well as he normally does, but still taking his Lasix. Continue to hold Lasix and follow periodically, creatinine appears to be at a relatively steady state in the low 4 range, no acute indications for dialysis although overall apperas to be headed in that direction based on his labs and nephrology input (4) Chronic kidney disease, stage IV (severe): Plan: As above Renally dose medications when appropriate Avoid nephrotoxins -Hold home Lasix 40 mg daily for acute kidney injury as above (5) Anemia due to chronic kidney disease: Plan: Hemoglobin lower than previousalthough still likely overall relates to CKD It does seem that he receives darbepoetin monthly with nephrology IV iron ordered by nephrology. (6) Sacral decubitus ulcer, stage IV: Plan: Status post debridement by surgery in the beginning of [place] unfortunately will need to be debrided againscheduled for Friday. No indications for systemic antibiotics at this time. With wound VAC in place Follows with wound care center -Continue VAC/local wound care (VAC changed 07/18) (7) Neurogenic bowel: Plan: Does not follow specific bowel regimen but does move his bowels every 3 to 4 days MiraLAX as needed (8) Sleep apnea: Plan: Does not tolerate CPAP (9) Vitamin D deficiency, unspecified: Plan: Continue vitamin D replacement (10) Neurogenic bladder: Plan: Continue self cath strategy (11) Anxiety: Plan: Continue duloxetine 30 mg daily Continue alprazolam as needed (12) Atrial fibrillation: Plan: Rate controlled, anticoagulated (DOAC will be on hold for surgery on Fridayresume afterwards as soon as is safe per surgery) (13) Abdominal aortic aneurysm: Plan: With a history of such Follow-up with Dr. Marroquin (14) Hypertension: Plan: Blood pressure is reasonable. Continue to follow (15) Generalized osteoarthritis: Plan: Pain control as needed (16) Hyperlipidemia: Plan: Continue statin (17) Somatic dysfunction of pelvic region: Plan: OMT as above Plan: DVT prophylaxis-Eliquis (will be on hold for a few dayscan substitute subcu heparin, with last dose Friday.) Disposition-stable on MedSurg, continue PT/OT, goal of SNF with rehab emphasis. Admission and Anticipated Discharge Date Admission Date: July 13, 2021 Subjective Having some low back and buttock pain again today. Otherwise awaiting surgical debridement Friday and placement for rehab (SNF with rehab emphasis). present at the bedside. Both pleased with his care overall. Review of Systems Review of Systems: All systems reviewed & are unremarkable except as noted in HPI & below Physical Exam Physical Exam: In general he is awake and alert pleasant no distress. HEENT normocephalic atraumatic mucous membranes moist. Breathing unlabored no accessory muscle use good effort. Skin shows no rashes no pallor or icterus. Musculoskeletal/osteopathic shows right-sided buttock musculature in the region of piriformis to be high tone, tender, decreased range of motioninhibitory pressure/LASimproved some, patient tolerated well. Results & Data Results & Data ([facility]) Vital Signs (Past 12 Hours) Vital Signs Temp Pulse Resp BP Pulse Ox 07/19/21 15:03 98.2 F 87 16 125/63 90 07/19/21 08:36 80 18 137/75 PG Care Time/CCT Total # of Minutes Spent Total Time Spent with Patient: Total time spent is greater than 50% in coordination of care (as documented) at patient's floor/unit and/or counseling patient: Coding Level of Care Code 31148 Subseq Hosp Care Lvl 2 Diagnoses Ambulatory dysfunction R26.2 Lumbar spinal stenosis M48.061 MARINO (acute kidney injury) N17.9 Chronic kidney disease, stage IV (severe) N18.4 Anemia due to chronic kidney disease N18.9; D63.1 Sacral decubitus ulcer, stage IV L89.154 Neurogenic bowel K59.2 Sleep apnea G47.30 Vitamin D deficiency, unspecified E55.9 Neurogenic bladder N31.9 Anxiety F41.9 Atrial fibrillation I48.2 Atrial fibrillation type: permanent Abdominal aortic aneurysm I71.4 Presence of rupture: without rupture Hypertension I10 Hypertension type: essential hypertension Generalized osteoarthritis M15.9 Hyperlipidemia E78.5 Somatic dysfunction of pelvic region M99.05 CPT Codes Musculoskeletal - Musculoskeletal: [address] 1-2 Body regions ([id number]) (1) Atrial fibrillation Atrial fibrillation type: permanent Qualified Code(s): I48.2 - Chronic atrial fibrillation (2) Abdominal aortic aneurysm Presence of rupture: without rupture Qualified Code(s): I71.4 - Abdominal aortic aneurysm, without rupture (3) Hypertension Hypertension type: essential hypertension Qualified Code(s): I10 - Essential (primary) hypertension
[2021-07-20 06:07] LABS: Basophils # (auto) 0.03 K/uL (0-0.2); Basophils % (auto) 0.3 %; Eosinophils # (auto) 0.13 K/uL (0-0.5); Eosinophils % (auto) 1.1 %; Hematocrit (blood only) 21.4 % (42-52); Immature Granulocytes # (auto) 0.04 K/uL (0.00-0.02); Immature Granulocytes % (auto) 0.3 %; Lymphocytes # (auto) 1.03 K/uL (1.2-3.4); Lymphocytes % (auto) 8.6 %; Mean Corpuscular Hemoglobin 30.6 pg (25-34); Mean Corpuscular Hgb Conc 32.7 g/dL (32-36); Mean Corpuscular Volume 93.4 fL (80-100); Monocytes # (auto) 1.04 K/uL (0.11-0.59); Monocytes % (auto) 8.7 %; Neutrophils # (auto) 9.65 K/uL (1.4-6.5); Platelet Count 281 K/uL (130-400); RDW Coefficient of Variation 14.9 % (11.5-14.5); RDW Standard Deviation 50.1 fL (36.4-46.3); Red Blood Count 2.29 M/uL (4.7-6.1); White Blood Count 11.92 K/uL (4.8-10.8)
[2021-07-20 06:39] LABS: Albumin Level 2.4 gm/dl (3.4-5.0); BUN Creatinine Ratio 17.7 (10-20); Creatinine Clr Calc Pharmacy 19.1 ml/min; Est GFR (African American) 15.1 ml/min; Est GFR (Non-African American) 13.1 ml/min; Phosphorus 3.9 mg/dl (2.5-4.9); Potassium 3.6 mmol/L (3.5-5.1)
[2021-07-20 06:40] LABS: Poikilocytosis Present
[2021-07-20] MEDS: amLODIPine BESYLATE 5 MG TAB PO SCH (09:03)
[2021-07-20] MEDS: CHECK BUPRENORPHINE PATCH SCH ×2 (09:03→15:39)
[2021-07-20] MEDS: CALCITRIOL 0.25 MCG CAPSULE PO SCH (09:04)
[2021-07-20] MEDS: HEPARIN SOD 5,000 UNIT/0.5 ML VIAL SQ SCH ×2 (09:04→20:16)
[2021-07-20] MEDS: minoxidiL 2.5 MG TAB PO SCH (09:04)
[2021-07-20] MEDS: SODIUM BICARBONATE 650 MG TAB PO SCH ×2 (09:04→20:16)
[2021-07-20] MEDS: MULTIVITAMIN TAB PO SCH (09:04)
[2021-07-20] MEDS: METOPROLOL SUCC 50MG EXT REL TAB PO SCH (09:04)
[2021-07-20] MEDS: DULoxetine HCL 30 MG CAP PO SCH (09:04)
[2021-07-20] MEDS: METHENAMINE HIPPURATE 1 GM TAB PO SCH (09:04)
[2021-07-20] MEDS: HYDROCODONE/ACETAMOPHEN 5/325MG TAB PO PRN (09:13)
--- NOTE | 2021-07-20 15:11 | Hospitalist Progress Note ---
Date of Service July 20, 2021 Assessment & Plan (1) Ambulatory dysfunction: Plan: 2 different processesbiomechanical pain in the region of his piriformis, as well as lumbar radiculopathy that seems to fit with his L1 problem. - Pain control, OMT, PT/OT eval and treatdue to fall risk and only his able to support him at home, they both prefer to try skilled with rehab emphasis as his disposition from the hospital - Case management on board -- ?[facility] or [facility] may have beds next week (2) Lumbar spinal stenosis: Plan: - Appreciate pain management input for pain control, not a surgical candidate at this time due to his sacral ulcer. - Pain control seems to be doing better overall, and really his only persistent pain is that L1/2 radiculopathy, but even that seems better than before. - Continue PT/OT - Still awaiting placement (SNF/rehab emphasis) given that he is too weak to be safe at home at this time. (3) MARINO (acute kidney injury): Plan: - Likely was a bit dry on admissionnot eating and drinking as well as he normally does, but still taking his Lasix. - Continue to hold Lasix and follow periodically, creatinine appears to be at a relatively steady state in the low 4 range - no acute indications for dialysis although overall appears to be trending in that direction based on his labs and nephrology input (4) Chronic kidney disease, stage IV (severe): Plan: As above - Renally dose medications when appropriate - Avoid nephrotoxins - Hold home Lasix 40 mg daily for acute kidney injury as above (5) Anemia due to chronic kidney disease: Plan: - Hemoglobin lower than previousalthough still likely overall relates to CKD - It does seem that he receives darbepoetin monthly with nephrology - IV iron ordered by nephrology. (6) Sacral decubitus ulcer, stage IV: Plan: Status post debridement by surgery in the beginning of unfortunately will need to be debrided againscheduled for Monday 07/23. No indications for systemic antibiotics at this time. - Wound vac not currently in place - Follows with wound care center - Continue local wound care as outlined by GS and log hauler - For debridement Friday as noted - NPO after MN on 07/22 (7) Neurogenic bowel: Plan: - Does not follow specific bowel regimen but does move his bowels every 3 to 4 days - MiraLAX as needed (8) Sleep apnea: Plan: - Does not tolerate CPAP (9) Vitamin D deficiency, unspecified: Plan: - Continue vitamin D replacement (10) Neurogenic bladder: Plan: - Continue self cath strategy (11) Anxiety: Plan: - Continue duloxetine 30 mg daily - Continue alprazolam as needed (12) Atrial fibrillation: Plan: - Rate controlled - On detention AC -- DOAC will be on hold for surgery on Fridayresume afterwards when surgery agreeable (13) Abdominal aortic aneurysm: Plan: With a history of such - Follow-up with Dr. Marroquin (14) Hypertension: Plan: - Blood pressure is reasonable. Continue to follow - Does have some LE edema, unsure if this is chronic for him but he is on Norvasc which could be contributing to this (15) Hyperlipidemia: Plan: - Continue statin (16) Somatic dysfunction of pelvic region: Plan: - OMT as above Plan: DVT prophylaxis-Eliquis (will be on hold for a few dayscan substitute subcu heparin, with last dose Friday morning) Disposition-stable on MedSurg, continue PT/OT, goal of SNF with rehab emphasis. Case management following. Admission and Anticipated Discharge Date Admission Date: July 13, 2021 Subjective Patient seen on rounds this morning. He continues to c/o low back and buttock pa in and notes pain radiates down both legs, but L more so than right. Otherwise awaiting surgical debridement FridayJul 23 and placement for rehab (SNF with rehab emphasis). He denies chest pain, dyspnea, n/v/d, f/c, headache, or gu symptoms. Review of Systems Review of Systems: CONSTITUTIONAL: Denies weight loss/gain, fever and chills, fatigue, malaise, generalized weakness. HEENT: Denies changes in vision and hearing. RESPIRATORY: Denies SOB, cough, wheezing. CV: Denies palpitations, CP, lower extremity edema, orthopnea, PND. GI: Denies abdominal pain, nausea, vomiting and diarrhea. : Denies dysuria and urinary frequency, urgency, hesitancy. MUSCULOSKELETAL: +back pain with pain down both legs. SKIN: Sacral skin wound. NEUROLOGICAL: Denies headache, syncope, focal weakness, numbness, tingling. PSYCHIATRIC: Denies recent changes in mood. Denies anxiety and depression. Physical Exam Physical Exam: GENERAL: 75 elderly WM, WD/WN. Pleasant, cooperative. NAD. LUNGS: Clear to auscultation bilaterally. No accessory muscle use. No W/R/R. CARDIOVASCULAR: Irregular rhythm w/ CVR. ABDOMEN: Soft, NT, ND. Normal BS x 4 quad. EXTREMITIES: +2 pitting edema. Peripheral pulses +2/4. NEUROLOGIC: A&O x3. PSYCHIATRIC: Cooperative. Appropriate mood and affect. SKIN: Sacral decub dressed/covered. Results & Data Results & Data ([facility]) Vital Signs (Past 12 Hours) Vital Signs Temp Pulse Resp BP Pulse Ox 07/20/21 06:43 37.0 C 86 18 120/63 96 Laboratory Results 07/20/21 05:43 07/20/21 05:43 PG Care Time/CCT Total # of Minutes Spent Total Time Spent with Patient: Total time spent is greater than 50% in coordination of care (as documented) at patient's floor/unit and/or counseling patient: Coding Level of Care Code 14331 Subseq Hosp Care Lvl 2 Diagnoses Ambulatory dysfunction R26.2 Lumbar spinal stenosis M48.061 MARINO (acute kidney injury) N17.9 Chronic kidney disease, stage IV (severe) N18.4 Anemia due to chronic kidney disease N18.9; D63.1 Sacral decubitus ulcer, stage IV L89.154 Neurogenic bowel K59.2 Sleep apnea G47.30 Vitamin D deficiency, unspecified E55.9 Neurogenic bladder N31.9 Anxiety F41.9 Atrial fibrillation I48.2 Atrial fibrillation type: permanent Abdominal aortic aneurysm I71.4 Presence of rupture: without rupture Hypertension I10 Hypertension type: essential hypertension Hyperlipidemia E78.5 Somatic dysfunction of pelvic region M99.05 (1) Atrial fibrillation Atrial fibrillation type: permanent Qualified Code(s): I48.2 - Chronic atrial fibrillation (2) Abdominal aortic aneurysm Presence of rupture: without rupture Qualified Code(s): I71.4 - Abdominal aortic aneurysm, without rupture (3) Hypertension Hypertension type: essential hypertension Qualified Code(s): I10 - Essential (primary) hypertension
[2021-07-20] MEDS: BUPRENORPHINE 5 MCG/HR TDSY TD SCH (15:39)
[2021-07-20] MEDS: ATORVASTATIN 20 MG TAB PO SCH (20:16)
[2021-07-20] MEDS: GABAPENTIN 300 MG CAP PO SCH (20:16)
[2021-07-20] MEDS: CHOLECALCIFEROL 1,000 UNITS 25 MCG TAB PO SCH (20:16)
[2021-07-21] MEDS: CHECK BUPRENORPHINE PATCH SCH ×2 (07:28)
[2021-07-21] MEDS: METOPROLOL SUCC 50MG EXT REL TAB PO SCH (07:28)
[2021-07-21] MEDS: METHENAMINE HIPPURATE 1 GM TAB PO SCH (07:28)
[2021-07-21] MEDS: CALCITRIOL 0.25 MCG CAPSULE PO SCH (07:29)
[2021-07-21] MEDS: MULTIVITAMIN TAB PO SCH (07:29)
[2021-07-21] MEDS: minoxidiL 2.5 MG TAB PO SCH (07:29)
[2021-07-21] MEDS: SODIUM BICARBONATE 650 MG TAB PO SCH ×2 (07:29→19:20)
[2021-07-21] MEDS: DULoxetine HCL 30 MG CAP PO SCH (07:29)
[2021-07-21] MEDS: amLODIPine BESYLATE 5 MG TAB PO SCH (07:29)
[2021-07-21] MEDS: HEPARIN SOD 5,000 UNIT/0.5 ML VIAL SQ SCH ×2 (07:30→19:21)
[2021-07-21 07:55] LABS: Albumin Level 2.4 gm/dl (3.4-5.0); BUN Creatinine Ratio 17.3 (10-20); Calcium 8.8 mg/dl (8.5-10.1); Creatinine Clr Calc Pharmacy 18.5 ml/min; Est GFR (African American) 14.5 ml/min; Est GFR (Non-African American) 12.5 ml/min; Phosphorus 4.1 mg/dl (2.5-4.9); Potassium 3.7 mmol/L (3.5-5.1)
[2021-07-21] MEDS: HYDROCODONE/ACETAMOPHEN 5/325MG TAB PO PRN (15:03)
[2021-07-21] MEDS: LIDOCAINE 5% 1 PATCH TD SCH (15:03)
--- NOTE | 2021-07-21 16:50 | Hospitalist Progress Note ---
Date of Service July 21, 2021 Assessment & Plan (1) Ambulatory dysfunction: Plan: 2 different processesbiomechanical pain in the region of his piriformis, as well as lumbar radiculopathy that seems to fit with his L1 problem. - Pain control, OMT, PT/OT eval and treatdue to fall risk and only his able to support him at home, they both prefer to try skilled with rehab emphasis as his disposition from the hospital -Patient is on oral medications as well as a fentanyl patch. Patient was more lethargic this morning and claimed that he was having some hallucinations. Nursing confirms low-grade fever and some diaphoresis. Fentanyl patch dis continued as this could have been consequence of fever causing mild overdose. Continue oral analgesics. We will also order Lidoderm patch to be placed across the lumbar sacral region. - Case management on board -- ?[facility] or [facility] may have beds next week (2) Lumbar spinal stenosis: Plan: - Appreciate pain management input for pain control, not a surgical candidate at this time due to his sacral ulcer. - Pain control seems to be doing better overall, and really his only persistent pain is that L1/2 radiculopathy, but even that seems better than before. - Continue PT/OT - Still awaiting placement (SNF/rehab emphasis) given that he is too weak to be safe at home at this time. (3) MARINO (acute kidney injury): Plan: - Likely was a bit dry on admissionnot eating and drinking as well as he normally does, but still taking his Lasix. - Continue to hold Lasix and follow periodically, creatinine appears to be at a relatively steady state in the low 4 range - no acute indications for dialysis although overall appears to be trending in that direction based on his labs and nephrology input -Other electrolytes remained stable. Patient continues to have urine output. -I do not see any notes from nephrology. May want to discuss with them. (4) Chronic kidney disease, stage IV (severe): Plan: As above - Renally dose medications when appropriate - Avoid nephrotoxins - Hold home Lasix 40 mg daily for acute kidney injury as above (5) Anemia due to chronic kidney disease: Plan: - Hemoglobin lower than previousalthough still likely overall relates to CKD - It does seem that he receives darbepoetin monthly with nephrology - IV iron ordered by nephrology. (6) Sacral decubitus ulcer, stage IV: Plan: Status post debridement by surgery in the beginning of [place] unfortunately will need to be debrided againscheduled for Monday 07/23. No indications for systemic antibiotics at this time. - Wound vac not currently in place - Follows with wound care center - Continue local wound care as outlined by GS and electrician refinery - For debridement Friday07/23/2021 as noted - NPO after MN on 07/22 (7) Neurogenic bowel: Plan: - Does not follow specific bowel regimen but does move his bowels every 3 to 4 days - MiraLAX as needed (8) Sleep apnea: Plan: -Patient reports he is tolerating his CPAP. It is noted to be at bedside. Patient specifically questioned about facial hair. He states that he gets a good seal. (9) Vitamin D deficiency, unspecified: Plan: - Continue vitamin D replacement (10) Neurogenic bladder: Plan: - Continue self cath as tolerated (11) Anxiety: Plan: - Continue duloxetine 30 mg daily - Continue alprazolam as needed (12) Atrial fibrillation: Plan: - Rate controlled - On half-way AC -- Apixaban currently on hold for surgery on Fridayresume afterwards when surgery agreeable (13) Abdominal aortic aneurysm: Plan: With a history of such - Follow-up with Dr. Marroquin (14) Hypertension: Plan: - Blood pressure is reasonable. Continue to follow - Does have some LE edema, unsure if this is chronic for him but he is on Norvasc which could be contributing to this (15) Hyperlipidemia: Plan: - Continue statin (16) Somatic dysfunction of pelvic region: Plan: - OMT as above Plan: DVT prophylaxis-Eliquis on hold for surgery. Continue Heparin 5000 units sub q BID for now Disposition-stable on MedSurg, continue PT/OT, goal of SNF with rehab emphasis. Case management following. Admission and Anticipated Discharge Date Admission Date: July 13, 2021 Subjective Attending: Dr. Neff Patient seen and examined in room 312. He did have some low-grade fever per nursing. Patient states that he did have some diaphoresis as well. Patient also states that he was hallucinating. When questioned further he said that he fell asleep yesterday and when he woke up it was Maikel day and he thought it was Maikel Liv. He denies any command hallucinations auditorily. He has no visual hallucinations. He states that chief complaint continues to be pain. He has been seen by pain management was last seen by Dr. Hidalgo. Currently awaiting placement at [facility]. He is scheduled for debridement of his sacral ulcer on Friday. Review of Systems Review of Systems: All systems reviewed & are unremarkable except as noted in Subjective Physical Exam Physical Exam: GENERAL : No acute distress EYES: No icterus, gaze conjugate NOSE: No evidence of epistaxis MOUTH: No lesions or candidiasis NECK: Supple LUNGS: CTA B/L, no wheezes, rales or rhonchi HEART: Regular, rate controlled ABDOMEN: Soft, NT, ND, BS Present EXTREMITIES: No LE edema, pedal pulses intact NEURO: A&OX3 Results & Data Results & Data ([facility]) Vital Signs (Past 12 Hours) Vital Signs Temp Pulse Resp BP BP Pulse Ox 07/21/21 14:51 36.9 C 85 18 94/54 L 95 07/21/21 11:50 37.7 C H 82 20 98/51 L 95 07/21/21 07:14 36.8 C 88 18 107/61 90 Laboratory Results 07/20/21 05:43 07/21/21 07:09 PG Care Time/CCT Total # of Minutes Spent Total Time Spent with Patient: Total time spent is greater than 50% in coordination of care (as documented) at patient's floor/unit and/or counseling patient: Coding Level of Care Code 30254 Subseq Hosp Care Lvl 2 Diagnoses Ambulatory dysfunction R26.2 Lumbar spinal stenosis M48.061 MARINO (acute kidney injury) N17.9 Chronic kidney disease, stage IV (severe) N18.4 Anemia due to chronic kidney disease N18.9; D63.1 Sacral decubitus ulcer, stage IV L89.154 Neurogenic bowel K59.2 Sleep apnea G47.30 Vitamin D deficiency, unspecified E55.9 Neurogenic bladder N31.9 Anxiety F41.9 Atrial fibrillation I48.2 Atrial fibrillation type: permanent Abdominal aortic aneurysm I71.4 Presence of rupture: without rupture Hypertension I10 Hypertension type: essential hypertension Hyperlipidemia E78.5 Somatic dysfunction of pelvic region M99.05 Time Spent (min) 30 (1) Atrial fibrillation Atrial fibrillation type: permanent Qualified Code(s): I48.2 - Chronic atrial fibrillation (2) Abdominal aortic aneurysm Presence of rupture: without rupture Qualified Code(s): I71.4 - Abdominal aortic aneurysm, without rupture (3) Hypertension Hypertension type: essential hypertension Qualified Code(s): I10 - Essential (primary) hypertension
[2021-07-21] MEDS: GABAPENTIN 300 MG CAP PO SCH (19:20)
[2021-07-21] MEDS: ATORVASTATIN 20 MG TAB PO SCH (19:20)
[2021-07-21] MEDS: CHOLECALCIFEROL 1,000 UNITS 25 MCG TAB PO SCH (19:21)
[2021-07-21] MEDS: ALPRAZolam 0.25 MG TABLET PO PRN (23:46)
[2021-07-22] MEDS: ACETAMINOPHEN 325 MG TAB PO PRN ×2 (00:02→09:54)
[2021-07-22] MEDS ORDERED: SODIUM CHLORIDE 0.9% 1000ML 1,000 ML IV ONE (00:55)
[2021-07-22 01:41] LABS: Basophils # (auto) 0.02 K/uL (0-0.2); Basophils % (auto) 0.1 %; Eosinophils # (auto) 0.14 K/uL (0-0.5); Hematocrit (blood only) 22.1 % (42-52); Hemoglobin 7.2 g/dL (14.0-18.0); Immature Granulocytes # (auto) 0.02 K/uL (0.00-0.02); Immature Granulocytes % (auto) 0.1 %; Lymphocytes # (auto) 1.26 K/uL (1.2-3.4); Lymphocytes % (auto) 8.8 %; Mean Corpuscular Hemoglobin 30.8 pg (25-34); Mean Corpuscular Volume 94.4 fL (80-100); Monocytes % (auto) 4.2 %; Neutrophils # (auto) 12.23 K/uL (1.4-6.5); Neutrophils % (auto) 85.8 %; Platelet Count 327 K/uL (130-400); RDW Standard Deviation 50.9 fL (36.4-46.3); Red Blood Count 2.34 M/uL (4.7-6.1); White Blood Count 14.27 K/uL (4.8-10.8)
[2021-07-22 01:46] LABS: Mean Corpuscular Hgb Conc 32.6 g/dL (32-36)
[2021-07-22 02:06] LABS: Acanthocytes 1+; Ovalocytes 1+; Polychromasia 1+
[2021-07-22] MEDS ORDERED: cefTRIAXone SODIUM 2,000 MG in DEXTROSE 5% 50 ML IV STA (02:07)
--- NOTE | 2021-07-22 05:23 | Communication Note ---
Date of Service: July 22, 2021 Night team made aware patient was febrile to 38.0 (new finding), tachycardic and hypotensive. Orders placed for blood cultures, cbc, procal, lactate, UA and CXR. CBC returned showing increased WBC - procal was elevated, lactate was normal. I did place orders for 1 g of empiric ceftriaxone given increase in WBC and positive procal. Fever broke and BP improved with 1.5 liter NSS bolus Transfer to [facility] for closer monitoring - however no beds available overnight
[2021-07-22] MEDS ORDERED: SODIUM CHLORIDE 0.9% 1000ML 500 ML IV ONE (06:09)
[2021-07-22 06:37] LABS: Appearance Urine Clear (Clear); Bacteria Urine Automated Negative (Negative); Bilirubin Urine Negative (Negative); Blood Urine Trace (Negative); Cast Urine Automated 0 /lpf (0-5); Color Urine Yellow; Epithelial Cell Urine Auto >30 /lpf (0-5); Glucose Urine UA Negative (Negative); Ketones Urine Negative (Negative); Leukocyte Esterase Urine Trace (Negative); Nitrite Urine Negative (Negative); Protein Urine 1+ (Negative); RBC Urine Automated 0-4 /hpf (0-4); Specific Gravity Urine 1.007 (1.000-1.030); Urobilinogen Urine Negative (Negative); pH Urine 5.5 (4.5-7.5)
[2021-07-22] MEDS: HEPARIN SOD 5,000 UNIT/0.5 ML VIAL SQ SCH (07:22)
[2021-07-22] MEDS: SODIUM BICARBONATE 650 MG TAB PO SCH ×2 (07:23→21:29)
[2021-07-22] MEDS: CALCITRIOL 0.25 MCG CAPSULE PO SCH (07:23)
[2021-07-22] MEDS: minoxidiL 2.5 MG TAB PO SCH (07:23)
[2021-07-22] MEDS: LIDOCAINE 5% 1 PATCH TD SCH (07:23)
[2021-07-22] MEDS: amLODIPine BESYLATE 5 MG TAB PO SCH (07:23)
[2021-07-22] MEDS: METOPROLOL SUCC 50MG EXT REL TAB PO SCH (07:24)
[2021-07-22] MEDS: DULoxetine HCL 30 MG CAP PO SCH (07:24)
[2021-07-22] MEDS: METHENAMINE HIPPURATE 1 GM TAB PO SCH (07:24)
[2021-07-22] MEDS: MULTIVITAMIN TAB PO SCH (07:24)
--- NOTE | 2021-07-22 07:45 | XRay Report ---
XR chest 1V portable CLINICAL HISTORY: new fever TECHNIQUE: Single frontal radiograph of the chest was obtained. Comparison: Comparison is made to chest one view 05/01/2018 FINDINGS: No lines and tubes are seen. The cardiomediastinal silhouette is normal. There is prominence and ceph alization of the vasculature with Frantz B lines seen. No evidence of pleural effusion or pneumothora x. IMPRESSION: Cardiomegaly and moderate pulmonary edema. ACT 112: Negative or not required by law. Electronically signed by: Aren Forbes M.D. 07/22/2021 7:43 AM
[2021-07-22] MEDS ORDERED: MEROPENEM CONSULT ACTIVE PRN (08:55)
[2021-07-22] MEDS ORDERED: MEROPENEM 500 MG in SYRINGE 0 ML IV SCH (09:00)
--- NOTE | 2021-07-22 09:19 | XRay Report ---
XR pelvis 1-2V routine CLINICAL HISTORY: Sacral decubitus ulcer. Evaluate for osteomyelitis.. COMPARISON STUDY: 10/04/2020 TECHNIQUE: [A single AP radiograph was obtained. FINDINGS: There is no evidence for an acute fracture. There is radiolucency seen in the region of the coccyx. H owever, this could relate to the bowel. Radiographs of the sacrum and coccyx are recommended for furt her evaluation. CT would actually be the study of choice for further evaluation. The patient is again status post bilateral total hip replacements which are intact. The SI joints are intact bilaterally. The remaining visualized bones of the pelvis are intact. No focal soft tissue ab normalities identified. IMPRESSION: Radiolucency involving the coccyx which could relate to air within the bowel. Standard ra diographs of the sacrum and coccyx or CT would be the study of choice for further evaluation. ACT 112: Negative or not required by law. Electronically signed by: Jaime Lowe M.D. 07/22/2021 9:18 AM
[2021-07-22] MEDS ORDERED: PIPERACILL/TAZOBAC CONSULT ACTIVE PRN (09:32)
[2021-07-22] MEDS ORDERED: PIPERACILLIN/TAZOBACTAM 3.375 GM in DEXTROSE 5% 100 ML IV ONE (09:45)
[2021-07-22] MEDS: HYDROCODONE/ACETAMOPHEN 5/325MG TAB PO PRN (09:54)
--- NOTE | 2021-07-22 11:56 | Electrocardiogram Report ---
Test Reason : Blood Pressure : / mmHG Vent. Rate : 104 BPM Atrial Rate : 111 BPM P-R Int : 000 ms QRS Dur : 116 ms QT Int : 314 ms P-R-T Axes : 000 -62 102 degrees QTc Int : 412 ms Atrial fibrillation with rapid ventricular response Left anterior fascicular block Abnormal ECG When compared with ECG of 14-JUL-2021 10:11, No significant change was found Confirmed by Kodak Jarvis ([id number]) on 07/22/2021 11:56:37 AM Referred By: REFERRED SELF Confirmed By:Kodak Jarvis
[2021-07-22] MEDS ORDERED: LACTATED RINGER'S 500 ML IV ONE (12:17)
[2021-07-22] MEDS ORDERED: LACTATED RINGER'S 1,000 ML IV SCH ×2 (12:30→16:59)
--- NOTE | 2021-07-22 14:28 | Hospitalist Progress Note ---
Date of Service July 22, 2021 Assessment & Plan (1) Sepsis: Plan: Patient with increased lethargy, hallucinations, now manifesting fevers with findings of leukocytosis, tachycardia, and hypotension - Source likely sacral decub --> Patient requires broad spectrum antibiotic coverage specifically targeting anaerobes and gram negatives as well as MRSA - will start on Zosyn w/ adjustment for renal function as well as Daptomycin, pharmacy to dose - Obtained pelvic xray as noted above to r/o evidence of osteomyelitis, radiolucency seen in coccyx, will consider CT v dedicated xray of coccyx and sacrum - Aggressive IVF hydration initiated with LR - Hold antihypertensives - NPO after MN, for surgical debridement of sacral decubitus - Trend labs - Blood cultures ordered by resident, pending - Repeat lactate ordered - Transfer to PCU (2) Sacral decubitus ulcer, stage IV: Plan: Status post debridement by surgery in the beginning of unfortunately will need to be debrided againscheduled for Monday 07/23. - Wound vac not currently in place - Follows with wound care center - Continue local wound care as outlined by GS and dinkey operator - For debridement Friday07/23/2021 as noted - NPO after MN tonight - Stop Heparin (3) Ambulatory dysfunction: Plan: 2 different processesbiomechanical pain in the region of his piriformis, as well as lumbar radiculopathy that seems to fit with his L1 problem. - Pain control, OMT, PT/OT eval and treatdue to fall risk and only his able to support him at home, they both prefer to try skilled with rehab emphasis as his disposition from the hospital - Continue oral analgesics. Lidoderm patch ordered to be placed across the lumbar sacral region. Fentanyl patch discontinued on 07/21 - Case management on board -- ?L[facility] or Jorge may have beds next week (4) Lumbar spinal stenosis: Plan: - Appreciate pain management input for pain control, not a surgical candidate at this time due to his sacral ulcer. - Pain control seems to be doing better overall, and really his only persistent pain is that L1/2 radiculopathy, but even that seems better than before. - Continue PT/OT - Still awaiting placement (SNF/rehab emphasis) given that he is too weak to be safe at home at this time. (5) MARINO (acute kidney injury): Plan: - Likely was a bit dry on admissionnot eating and drinking as well as he n ormally does, but still taking his Lasix. - Continue to hold Lasix and follow periodically, creatinine appears to be at a relatively steady state in the low 4 range - no acute indications for dialysis although overall appears to be trending in that direction based on his labs and nephrology input - Other electrolytes remained stable. Patient continues to have urine output. (6) Chronic kidney disease, stage IV (severe): Plan: As above - Renally dose medications when appropriate - Avoid nephrotoxins - Hold home Lasix 40 mg daily for acute kidney injury as above (7) Anemia due to chronic kidney disease: Plan: - Hemoglobin lower than previousalthough still likely overall relates to CKD - It does seem that he receives darbepoetin monthly with nephrology - IV iron ordered by nephrology. (8) Neurogenic bowel: Plan: - Does not follow specific bowel regimen but does move his bowels every 3 to 4 days - MiraLAX as needed (9) Sleep apnea: Plan: -Patient reports he is tolerating his CPAP. It is noted to be at bedside. Patient specifically questioned about facial hair. He states that he gets a good seal. 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 Marroquin (15) Hypertension: Plan: - Blood pressure is reasonable. Continue to follow - Does have some LE edema, unsure if this is chronic for him but he is on Norvasc which could be contributing to this (16) Hyperlipidemia: Plan: - Continue statin (17) Somatic dysfunction of pelvic region: Plan: - OMT as above Plan: DVT prophylaxis-Eliquis on hold for surgery. Heparin given this AM but now stopped for OR tomorrow. Disposition-transfer to PCU as noted above Interventions as noted above, trend labs, will d/w Dr. Neff. Admission and Anticipated Discharge Date Admission Date: July 13, 2021 Subjective Patient seen on daily rounds today. Upon chart review this morning, found that patient had spiked a temp (38C), tachycardic, and hypotensive. Residents responded to call, labs were ordered, he was bolused with IVF, and treated with a dose of Rocephin 2g. His lactate was WNL but procal was elevated as well as his WBC w/ left shift. It was documented that pt was also having low grade fevers on 07/21 as well as diaphoresis and auditory hallucinations. This was felt to be related to his Fentanyl patch and subsequently that was removed. On rounds, pt lethargic, only awakens briefly but responds appropriately. He admits to chills/rigors. Denies back/leg pain. No fever at the time of my visit but alerted about 2 hours later that he spiked another temp and BPs are soft 90-100s systolic. He is scheduled for debridement of his sacral ulcer tomorrow 07/23. Review of Systems Review of Systems: limited due to lethargy but significant for chills/rigors, weakness as noted above. remaining ROS was negative. Physical Exam Physical Exam: GENERAL: 75 elderly WM, WD/WN. Lethargic but arousable. NAD. LUNGS: Clear to auscultation bilaterally. No accessory muscle use. No W/R/R. CARDIOVASCULAR: Irregular rate and rhythm. 2/6 IVA. No gallops or rubs. ABDOMEN: Soft, NT, ND. Normal BS x 4 quad. EXTREMITIES: Trace edema in RLE and +1 pitting edema in LLE. Peripheral pulses +2/4. NEUROLOGIC: No focal neuro deficits. SKIN: Sacral decub dressed/covered. No wound vac present. Results & Data Results & Data ([facility]) Vital Signs (Past 12 Hours) Vital Signs Temp Pulse Resp BP BP Pulse Ox 07/22/21 14:01 36.9 C 76 18 94/54 L 93 07/22/21 13:07 37.5 C 88 20 93/53 L 94 07/22/21 11:41 38.2 C H 86 20 100/55 L 94 07/22/21 10:00 36.8 C 91 H 22 119/76 93 07/22/21 07:21 36.7 C 93 H 16 126/62 98 07/22/21 05:05 36.8 C 102 H 20 112/64 96 07/22/21 02:38 36.9 C 106 H 20 93/40 L 92 Laboratory Results 07/22/21 01:09 07/21/21 07:09 Diagnostic Findings Chest X-Ray 07/22/21 02:15 XR chest 1V portable CLINICAL HISTORY: new fever TECHNIQUE: Single frontal radiograph of the chest was obtained. Comparison: Comparison is made to chest one view 05/01/2018 FINDINGS: No lines and tubes are seen. The cardiomediastinal silhouette is normal. There is prominence and cephalization of the vasculature with Frantz B lines seen. No evidence of pleural effusion or pneumothorax. IMPRESSION: Cardiomegaly and moderate pulmonary edema. ACT 112: Negative or not required by law. Electronically signed by: Aren Forbes M.D. 07/22/2021 7:43 AM Pelvis X-Ray 07/22/21 08:51 XR pelvis 1-2V routine CLINICAL HISTORY: Sacral decubitus ulcer. Evaluate for osteomyelitis.. COMPARISON STUDY: 10/04/2020 TECHNIQUE: [A single AP radiograph was obtained. FINDINGS: There is no evidence for an acute fracture. There is radiolucency seen in the region of the coccyx. However, this could relate to the bowel. Radiographs of the sacrum and coccyx are recommended for further evaluation. CT would actually be the study of choice for further evaluation. The patient is again status post bilateral total hip replacements which are intact. The SI joints are intact bilaterally. The remaining visualized bones of the pelvis are intact. No focal soft tissue abnormalities identified. IMPRESSION: Radiolucency involving the coccyx which could relate to air within the bowel. Standard radiographs of the sacrum and coccyx or CT would be the study of choice for further evaluation. ACT 112: Negative or not required by law. Electronically signed by: Jaime Lowe M.D. 07/22/2021 9:18 AM PG Care Time/CCT Total # of Minutes Spent Total Time Spent with Patient: Total time spent is greater than 50% in coordination of care (as documented) at patient's floor/unit and/or counseling patient: Coding Level of Care Code 30703 Subseq Hosp Care Lvl 3 Diagnoses Ambulatory dysfunction R26.2 Lumbar spinal stenosis M48.061 MARINO (acute kidney injury) N17.9 Chronic kidney disease, stage IV (severe) N18.4 Anemia due to chronic kidney disease N18.9; D63.1 Sacral decubitus ulcer, stage IV L89.154 Neurogenic bowel K59.2 Sleep apnea G47.30 Vitamin D deficiency, unspecified E55.9 Neurogenic bladder N31.9 Anxiety F41.9 Atrial fibrillation I48.2 Atrial fibrillation type: permanent Abdominal aortic aneurysm I71.4 Presence of rupture: without rupture Hypertension I10 Hypertension type: essential hypertension Hyperlipidemia E78.5 Somatic dysfunction of pelvic region M99.05 Sepsis A41.9 (1) Atrial fibrillation Atrial fibrillation type: permanent Qualified Code(s): I48.2 - Chronic atrial fibrillation (2) Abdominal aortic aneurysm Presence of rupture: without rupture Qualified Code(s): I71.4 - Abdominal aortic aneurysm, without rupture (3) Hypertension Hypertension type: essential hypertension Qualified Code(s): I10 - Essential (primary) hypertension
[2021-07-22] MEDS: DAPTOmycin 475 MG in SYRINGE 0 ML IV SCH (15:50)
[2021-07-22] MEDS: PIPERACILLIN/TAZOBACTAM 3.375 GM in DEXTROSE 5% 100 ML IV SCH (17:43)
[2021-07-22] MEDS: SODIUM CHLORIDE 0.9% 1000ML 1,000 ML IV SCH (17:44)
[2021-07-22] MEDS: CHOLECALCIFEROL 1,000 UNITS 25 MCG TAB PO SCH (21:29)
[2021-07-22] MEDS: GABAPENTIN 300 MG CAP PO SCH (21:29)
[2021-07-23] MEDS: SODIUM CHLORIDE 0.9% 1000ML 1,000 ML IV SCH ×3 (03:53→17:25)
[2021-07-23] MEDS: PIPERACILLIN/TAZOBACTAM 3.375 GM in DEXTROSE 5% 100 ML IV SCH ×2 (06:13→17:33)
[2021-07-23] MEDS ORDERED: PROPOFOL IV EMULSION 10 MG/ML 20 ML VIAL IV ONE (06:33)
[2021-07-23] MEDS ORDERED: MIDAZOLAM HCL 1 MG/ML 2ML VIAL ONE (06:33)
[2021-07-23] MEDS ORDERED: fentaNYL citrate 100 MCG/2 ML VIAL ONE (06:33)
[2021-07-23] MEDS ORDERED: ONDANSETRON INJ 2 MG/ML 2 ML VIAL ONE (06:33)
[2021-07-23] MEDS ORDERED: LIDOCAINE 2% 2 ML VIAL/AMP(20MG/ML) INFIL ONE (06:33)
[2021-07-23] MEDS ORDERED: DEXAMETHASONE SOD INJ 4 MG/ML VIAL ONE (06:33)
[2021-07-23] MEDS ORDERED: SUCCINYLCHOLINE CHLORIDE 20 MG/ML 10 ML VIAL IV ONE (06:33)
[2021-07-23 06:58] LABS: Albumin Level 2.2 gm/dl (3.4-5.0); BUN Creatinine Ratio 16.5 (10-20); Calcium 8.8 mg/dl (8.5-10.1); Creatinine Clr Calc Pharmacy 18.5 ml/min; Est GFR (African American) 14.4 ml/min; Est GFR (Non-African American) 12.4 ml/min; Potassium 3.8 mmol/L (3.5-5.1)
[2021-07-23 07:01] LABS: Albumin Globulin Ratio 0.6 (0.9-2); Bilirubin,Total 0.4 mg/dl (0.2-1); Globulin 3.8 gm/dl (2.5-4.0)
[2021-07-23] MEDS ORDERED: BUPIVACAINE/EPINEPHRINE 0.25% 1:200,000 30 ML VIAL ONE (07:02)
--- NOTE | 2021-07-23 07:09 | Anesthesiology Consultation ---
Date of Service July 23, 2021 Assessment & Plan Chart Review Chart Review: Acceptable Risk for Surgery Consults Requested none History Surgery Operation Date: 07/23/21 07:30 Proposed Procedures p Debridement of Sacral Decubitus Ulcer - Ranjeet Myers DO Height/Weight Height: 6 ft Weight: 103.8 kg Allergies Allergy/AdvReac Type Severity Reaction Status Date / Time tetracycline Allergy Intermediate HIVES Verified 07/13/21 11:52 morphine AdvReac Mild Nausea Verified 07/13/21 11:52 Medications Home Medications Medication Instructions Recorded Confirmed Last Taken multivitamin with minerals 1 tab PO QAM tab 04/06/18 07/13/21 07/13/21 cholecalciferol (vitamin D3) 50 50 mcg PO QPM 12/31/19 07/13/21 07/12/21 mcg (2,000 unit) tablet (Vitamin D3) tramadol 50 mg tablet 50 mg PO Q6H PRN 01/15/20 07/13/21 07/13/21 azelastine 205.5 mcg (0.15 %) 1 spray INTNAS HS PRN #30 ml 09/04/20 07/13/21 06/26/21 11:15 nasal spray minoxidil 10 mg tablet 10 mg PO QAM #90 tab 12/18/20 07/13/21 07/13/21 metoprolol succinate 50 mg 50 mg PO QAM #90 tab 12/26/20 07/13/21 07/13/21 tablet,extended release 24 hr (Toprol XL) methenamine hippurate 1 gram tablet 1 g PO QAM #90 tab 01/18/21 07/13/21 07/13/21 atorvastatin 20 mg tablet (Lipitor) 20 mg PO QPM tab 05/11/21 07/13/21 07/12/21 darbepoetin nimisha in polysorbat 60 60 mcg SUBCUT MONTHLY 06/12/21 07/13/21 06/13/21 mcg/0.3 mL in polysorbate injection syringe (Aranesp) alprazolam 0.25 mg tablet 0.25 mg PO DAILY PRN tab 06/18/21 07/13/21 07/12/21 duloxetine 30 mg capsule,delayed 30 mg PO QAM cap 06/18/21 07/13/21 07/13/21 release amlodipine 5 mg tablet (Norvasc) 5 mg PO QAM 06/20/21 07/13/21 07/13/21 calcitriol 0.25 mcg capsule 0.25 mcg PO QAM 06/20/21 07/13/21 07/13/21 furosemide 40 mg tablet 40 mg PO QAM #90 tab 07/04/21 07/13/21 07/13/21 sodium bicarbonate 650 mg tablet 650 mg PO BID #180 tab 07/04/21 07/13/21 acetaminophen 500 mg tablet 1,000 mg PO DIRECTED PRN 07/13/21 07/13/21 07/11/21 (Tylenol Extra Strength) 1000 mg apixaban 2.5 mg tablet (Eliquis) 2.5 mg PO BID 07/13/21 07/13/21 Unknown metronidazole 1 % topical gel 1 applic TOPICAL DIRECTED 07/13/21 07/13/21 Unknown (Metrogel) Active Medications Generic Name Dose Route Start Last Admin Trade Name Freq PRN Reason Stop Dose Admin Acetaminophen 650 mg 07/13/21 14:55 07/22/21 09:54 Acetaminophen 325 Mg Tab PO 08/12/21 14:54 650 mg Q4H PRN Administration Pain or Fever Hydrocodone Bitart/Acetaminophen 1 tab 07/13/21 13:08 07/22/21 09:54 Hydrocodone/Acetamophen 5/325mg Tab PO 07/27/21 13:07 1 tab Q12H PRN Administration Pain Alprazolam 0.25 mg 07/13/21 14:55 07/21/21 23:46 Alprazolam 0.25 Mg Tablet PO 08/12/21 14:54 0.25 mg DAILY PRN Administration anxiety Amlodipine Besylate 5 mg 07/14/21 09:00 07/22/21 07:23 Amlodipine Besylate 5 Mg Tab PO 08/13/21 08:59 5 mg QAM B[place] Administration Apixaban 2.5 mg 07/13/21 21:00 07/19/21 19:47 Apixaban 2.5 Mg Tab PO 08/12/21 20:59 2.5 mg BID B[place] Administration Atorvastatin Calcium 20 mg 07/13/21 21:00 07/21/21 19:20 Atorvastatin 20 Mg Tab PO 08/12/21 20:59 20 mg QPM [place] Administration Calcitriol 0.25 mcg 07/14/21 09:00 07/22/21 07:23 Calcitriol 0.25 Mcg Capsule PO 08/13/21 08:59 0.25 mcg QAM [place] Administration Duloxetine HCl 30 mg 07/14/21 09:00 07/22/21 07:24 Duloxetine Hcl 30 Mg Cap PO 08/13/21 08:59 30 mg QAM [place] Administration Gabapentin 300 mg 07/13/21 21:00 07/22/21 21:29 Gabapentin 300 Mg Cap PO 08/12/21 20:59 300 mg HS B[place] Administration Hydromorphone HCl 0.5 mg 07/13/21 14:55 07/22/21 21:28 Hydromorphone Inj 0.5 Mg/0.5 Ml Syr IV 07/27/21 14:54 0.5 mg Q6H PRN Administration severe pain Piperacillin Sod/Tazobactam 115 mls @ 28.75 mls/hr 07/22/21 18:00 07/23/21 06:13 Sod 3.375 gm/ Dextrose IV 07/29/21 17:59 28.8 mls/hr Q12H [place] Administration Protocol Daptomycin 475 mg/ Syringe 9.5 mls @ 4.75 mls/min 07/22/21 15:30 07/22/21 15:50 IV 07/24/21 15:29 4.75 mls/min Q2D@1600 [place] Administration Protocol Sodium Chloride 1,000 mls @ 100 mls/hr 07/22/21 17:45 07/23/21 03:53 Nss 1000ml IV 08/21/21 17:44 100 mls/hr .Q10H [place] Administration Lidocaine 1 patch 07/21/21 13:45 07/22/21 07:23 Lidocaine 5% 1 Patch TD 08/20/21 13:44 1 patch QAM [place] Administration Methenamine Hippurate 1 gm 07/14/21 09:00 07/22/21 07:24 Methenamine Hippurate 1 Gm Tab PO 08/13/21 08:59 1 gm QAM [place] Administration Metoprolol Succinate 50 mg 07/14/21 09:00 07/22/21 07:24 Metoprolol Succ 50mg Ext Rel Tab PO 08/13/21 08:59 50 mg QAM [place] Administration Minoxidil 10 mg 07/14/21 09:00 07/22/21 07:23 Minoxidil 2.5 Mg Tab PO 08/13/21 08:59 10 mg QAM [place] Administration Miscellaneous 1 ea 07/21/21 21:00 07/22/21 21:30 Remove Lidoderm Patch N/A 08/20/21 20:59 1 ea DAILY@2100 B[place] Administration Multivitamins 1 tab 07/14/21 09:00 07/22/21 07:24 Multivitamin Tab PO 08/13/21 08:59 1 tab QAM [place] Administration Sodium Bicarbonate 650 mg 07/13/21 21:00 07/22/21 21:29 Sodium Bicarbonate 650 Mg Tab PO 08/12/21 20:59 650 mg BID [place] Administration Vitamin D 2,000 units 07/13/21 21:00 07/22/21 21:29 Cholecalciferol 1,000 Units 25 Mcg Tab PO 08/12/21 20:59 2,000 units QPM [place] Administration NPO Date Last Intake of Fluids: 07/22/21 Time Last Intake of Fluids: 21:00 Date Last Intake of Solids: 07/22/21 Time Last Intake of Solids: 18:00 Past Medical History Medical History Abdominal aortic aneurysm (~2014) S/p Type A dissection with emergent repair in 2014 Later found to have AAA 3.5cm- followed by vascular surgery with medical management Anemia due to chronic kidney disease Anxiety Atrial fibrillation Follows with [facility] cardiology (Dr. Jarvis) On Eliquis BPH with obstruction/lower urinary tract symptoms DENIES ENLARGED PROSTATE Chronic kidney disease, stage IV (severe) Follows with [facility] urology, nephrology/under surveillance, no dialysis at this time History of CHF (congestive heart failure) 2003 Hyperlipidemia Hypertension Lumbar spinal stenosis Metabolic acidosis Neurogenic bladder Self Catheterization since Aortic repair Neuropathic pain PTSD (post-traumatic stress disorder) POST AORTIC DISSECTION Sleep apnea CPAP Spinal cord cysts Pt states L1 and L2, dx 05/2021, by Dr. Shrestha at [facility] Past Family History Family History Grandmother Family history of diabetes mellitus Mother Gallbladder disease Father Prostate cancer Myocardial infarction Hypertension Other Family history non-contributory No family history of adverse response to anesthesia Denies family history of Ovarian cancer Breast cancer Colorectal cancer Past Surgical History Surgical History History of arthroplasty of left hip History of arthroscopy RT KNEE History of bladder surgery History of cardiac catheterization 2003 - no stents - [facility] in [place] History of cardioversion mult History of cataract surgery RT/LEFT History of colonoscopy History of esophagogastroduodenoscopy (EGD) History of gastric bypass 2010 History of lumbar fusion History of open reduction and internal fixation (ORIF) procedure RT WRIST 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 History of revision of total hip arthroplasty left History of rhinoplasty History of tooth extraction History of total knee replacement RT History of total left hip arthroplasty (~12/2019) History of transurethral resection of prostate Nausea and vomiting after administration of anesthetic agent S/P debridement (06/27/21) Excisional Debridement Sacral Decubitus Ulcer down to muscle level 4cm x 6cm - Ranjeet Myers, DO 06/27/2021 S/P total right hip arthroplasty Social History Smoking Status: Never smoker Hx Alcohol Use: No Hx Substance Use: No substance use type: does not use Physical Exam Vital Signs Last Vital Signs Temp 37.2 C 07/23/21 06:45 Pulse 108 H 07/23/21 06:45 Resp 20 07/23/21 06:45 BP 120/74 07/23/21 06:45 Pulse Ox 93 07/23/21 06:45 Testing Laboratory Results 07/22/21 01:09 07/23/21 06:07 Urine Color Yellow 07/22/21 06:05 Urine Appearance Clear (Clear) 07/22/21 06:05 Urine pH 5.5 (4.5-7.5) 07/22/21 06:05 Ur Specific [place] 1.007 (1.000-1.030) 07/22/21 06:05 Urine Protein 1+ (Negative) H 07/22/21 06:05 Urine Glucose (UA) Negative (Negative) 07/22/21 06:05 Urine Ketones Negative (Negative) 07/22/21 06:05 Urine Nitrite Negative (Negative) 07/22/21 06:05 Ur Leukocyte Esterase Trace (Negative) H 07/22/21 06:05 Urine WBC (Auto) 1-5 /hpf (0-5) 07/22/21 06:05 Urine RBC (Auto) 0-4 /hpf (0-4) 07/22/21 06:05 U Hyaline Cast (Auto) 0 /lpf (0-5) 07/22/21 06:05 U Epithel Cells (Auto) >30 /lpf (0-5) H 07/22/21 06:05 Urine Bacteria (Auto) Negative (Negative) 07/22/21 06:05 07/22/21 01:09 Aerobic Blood Culture - Preliminary Blood No growth in Aerobic bottle after 24 hours. Anaerobic Blood Culture - Preliminary Gram negative bacilli 07/22/21 01:09 Aerobic Blood Culture - Preliminary Blood No growth in Aerobic bottle after 24 hours. Anaerobic Blood Culture - Preliminary No growth in Anaerobic bottle after 24 hours.
[2021-07-23] MEDS ORDERED: ONDANSETRON INJ 2 MG/ML 2 ML VIAL IV PRN (07:12)
[2021-07-23] MEDS ORDERED: ePHEDrine sulfate 50 MG/ML AMP IV PRN (07:12)
[2021-07-23] MEDS ORDERED: fentaNYL citrate 100 MCG/2 ML VIAL IV PRN (07:12)
[2021-07-23] MEDS ORDERED: HYDROmorphone INJ 1 MG/ML SYRINGE IV PRN (07:12)
[2021-07-23] MEDS ORDERED: ATROPINE SULFATE 0.1 MG/ML 10ML SYR IV PRN (07:12)
--- NOTE | 2021-07-23 07:14 | History & Physical Bridge Note ---
Date of Service July 23, 2021 History & Physical Bridge Note I have examined the patient, reviewed the History & Physical and in the interval since the performance of the History & Physical I have noted the following changes of clinical significance: no changes noted
[2021-07-23] MEDS ORDERED: ROCURONIUM BROMIDE 10 MG/ML 5 ML VIAL IV ONE (07:52)
[2021-07-23] MEDS ORDERED: PHENYLEPHRINE 100MCG/ML 5ML SYR ONE (07:52)
[2021-07-23] MEDS ORDERED: ePHEDrine sulfate 50 MG/ML SYR ONE (07:52)
--- NOTE | 2021-07-23 07:52 | Electrocardiogram Report ---
Test Reason : Blood Pressure : / mmHG Vent. Rate : 109 BPM Atrial Rate : 125 BPM P-R Int : 000 ms QRS Dur : 116 ms QT Int : 356 ms P-R-T Axes : 000 -61 111 degrees QTc Int : 479 ms Atrial fibrillation with rapid ventricular response Left anterior fascicular block Abnormal ECG When compared with ECG of 22-JUL-2021 02:20, QT has lengthened Confirmed by Shakeel Braun ([id number]) on 07/23/2021 7:52:21 AM Referred By: REFERRED SELF Confirmed By:Joe Braun
--- NOTE | 2021-07-23 08:45 | Post Operative Brief Note ---
PG Immediate Post Op with CF Date of Surgery July 23, 2021 Pre & Post Diagnosis Operation Date: 07/23/21 07:30 Pre-Op Diagnosis: Sacral decubitus ulcer, stage IV Post-Op Diagnosis: Sacral decubitus ulcer, stage IV; Osteomyelitis I identified the patient and participated in the time-out.: Yes Procedure Operation Date: 07/23/21 07:30 Actual Procedures p Excisional Debridement of Sacral Decubitus Ulcer Down to Bone 8cm x 8cm(Not Applicable) - Ranjeet Myers DO Surgeon Ranjeet Myers DO Human Resources Compliance Manager None Estimated Blood Loss 50 Findings See Below Extensive necrosis of subcutaneous, muscle and sacral tissues Specimens Specimen Description: Culture Set #1- Sacrum bone, out of room at 0811 Culture Set #2- Deep sacral swab, out of room at 0811 Anesthesia Type General Complications none Disposition Disposition: Recovery Room
--- NOTE | 2021-07-23 09:12 | Electrocardiogram Report ---
Test Reason : Blood Pressure : / mmHG Vent. Rate : 109 BPM Atrial Rate : 125 BPM P-R Int : 000 ms QRS Dur : 116 ms QT Int : 356 ms P-R-T Axes : 000 -61 111 degrees QTc Int : 479 ms Atrial fibrillation with rapid ventricular response Left anterior fascicular block Abnormal ECG When compared with ECG of 22-JUL-2021 02:20, QT has lengthened Confirmed by Shakeel Braun ([id number] on 07/23/2021 7:52:21 AM Also confirmed by Shakeel Braun ([id number]), video editor Gaurav Phillips ([id number]) on 07/23/2021 9:12:26 AM Referred By: REFERRED SELF Confirmed By:Joe Braun
--- NOTE | 2021-07-23 09:24 | Anesthesiology Progress Note ---
Date of Service July 23, 2021 Anesthesia Post Procedure Vital Signs Vital Signs: Temp Pulse Pulse Pulse Pulse Resp BP 07/23/21 09:10 105 H 18 97/65 L 07/23/21 09:00 107 H 18 111/88 07/23/21 08:50 107 H 18 107/68 07/23/21 08:44 37.1 C 102 H 18 116/72 07/23/21 06:45 37.2 C 108 H 20 07/23/21 03:51 37.1 C 106 H 18 07/23/21 00:00 37.1 C 99 H 18 07/22/21 23:45 101 H 07/22/21 20:06 37.4 C 95 H 20 105/66 07/22/21 16:48 37 C 79 96 H 16 07/22/21 15:15 36.9 C 96 H 16 93/57 L 07/22/21 14:01 36.9 C 76 18 94/54 L 07/22/21 13:07 37.5 C 88 20 93/53 L 07/22/21 11:41 38.2 C H 86 20 100/55 L 07/22/21 10:00 36.8 C 91 H 22 119/76 BP Pulse Ox 07/23/21 09:10 95 07/23/21 09:00 100 07/23/21 08:50 100 07/23/21 08:44 99 07/23/21 06:45 120/74 93 07/23/21 03:51 106/65 93 07/23/21 00:00 112/71 95 07/22/21 23:45 07/22/21 20:06 93 07/22/21 16:48 113/70 94 07/22/21 15:15 93 07/22/21 14:01 93 07/22/21 13:07 94 07/22/21 11:41 94 07/22/21 10:00 93 Pain Intensity Hip: Pain Intensity: 4 Left Leg: Pain Intensity: 5 Sacrum: Pain Intensity: 5 Bilateral Leg: Pain Intensity: 5 Transfer of Care Handoff Completed per policy Notes Mental Status: alert / awake / arousable and participated in evaluation Patient Amnestic to Procedure: Yes Nausea / Vomiting: adequately controlled Pain: adequately controlled Airway Patency, RR, SpO2: stable & adequate BP & HR: stable & adequate Hydration State: stable & adequate Anesthetic Complications: no major complications apparent
[2021-07-23 09:28] LABS: Basophils # (auto) 0.03 K/uL (0-0.2); Basophils % (auto) 0.2 %; Eosinophils # (auto) 0.09 K/uL (0-0.5); Eosinophils % (auto) 0.7 %; Hematocrit (blood only) 22.5 % (42-52); Hemoglobin 7.3 g/dL (14.0-18.0); Immature Granulocytes # (auto) 0.04 K/uL (0.00-0.02); Immature Granulocytes % (auto) 0.3 %; Lymphocytes % (auto) 3.1 %; Mean Corpuscular Hemoglobin 30.8 pg (25-34); Mean Corpuscular Volume 94.9 fL (80-100); Mean Platelet Volume 7.9 fL (7.4-10.4); Monocytes # (auto) 0.63 K/uL (0.11-0.59); Monocytes % (auto) 4.9 %; Neutrophils # (auto) 11.57 K/uL (1.4-6.5); Neutrophils % (auto) 90.8 %; Platelet Count 285 K/uL (130-400); RDW Coefficient of Variation 15.2 % (11.5-14.5); RDW Standard Deviation 51.7 fL (36.4-46.3); Red Blood Count 2.37 M/uL (4.7-6.1); White Blood Count 12.76 K/uL (4.8-10.8)
[2021-07-23 09:29] LABS: Mean Corpuscular Hgb Conc 32.4 g/dL (32-36)
--- NOTE | 2021-07-23 09:43 | Operative Report ---
PG Post Operative Report Pre & Post Diagnosis Operation Date: 07/23/21 07:30 Pre-Op Diagnosis: Sacral decubitus ulcer, stage IV Post-Op Diagnosis: Sacral decubitus ulcer, stage IV; Osteomyelitis I identified the patient and participated in the time-out.: Yes Procedure Operation Date: 07/23/21 07:30 Actual Procedures p Excisional Debridement of Sacral Decubitus Ulcer Down to Bone 8cm x 8cm(Not Applicable) - Ranjeet Myers DO Surgeon Ranjeet Myers DO Doctor Naturopathic None Estimated Blood Loss 50 Findings See Below Extensive necrosis of subcutaneous tissue, muscle and sacrum Specimens Sacrum sent for bone culture Deep sacral wound swab sent for culture Drains None Anesthesia Type General Complications none Disposition Disposition: Recovery Room Indications 75-year-old male with open stage IV sacral wound requiring debridement Description of Procedure The patient was brought to the operating room and underwent general endotracheal anesthesia without issue. At this time the patient was placed in the prone jackknife position. The buttocks and lower back were prepped and draped in the usual sterile fashion. Appropriate pre-operative antibiotics were administered. A timeout was called. The procedure was verified as Excisional debridement of sacral ulcer. Surgical, anesthesia and nursing teams agreed and the procedure was begun. The sacral wound was explored and had undermining in both lateral directions as well as in the cranial direction for about 2 cm. The skin and subcutaneous tissue that made up the wound was excised using a #15 blade scalpel so that the undermining was no longer present and healthy bleeding tissue was encountered. At the base of the wound, there was sacrum present and exposed. Using a rongeur, a portion of the exposed sacrum was debrided and sent for culture. A swab culture of the deepest portion of the wound was performed after debridement. Next multiple areas of necrotic subcutaneous and muscle tissue was excised sharply using electrocautery until bleeding tissue was encountered. The wound was irrigated until clear. At this time hemostasis was achieved using electrocautery. Hemostasis was complete. At this time the incision was packed with a wet-to-dry saline Kerlix and covered with a sterile dressing. At this time the patient was awakened from anesthesia and extubated having remained stable throughout the entire case and transported to PACU in stable condition. I attest to the content of the Intraoperative Record and any orders documented therein. Any exceptions are noted below.
[2021-07-23 09:51] LABS: Acanthocytes 2+
[2021-07-23] MEDS ORDERED: ACETAMINOPHEN 325 MG TAB PO ONE (10:13)
[2021-07-23] MEDS ORDERED: diphenhydrAMINE Capsule 25 MG CAP PO ONE (10:13)
[2021-07-23] MEDS ORDERED: SODIUM CHLORIDE 0.9% 250 ML IV PRN (10:13)
--- NOTE | 2021-07-23 10:27 | Hospitalist Progress Note ---
Date of Service July 23, 2021 Assessment & Plan (1) Sepsis: Plan: Patient with increased lethargy, hallucinations, now manifesting fevers with findings of leukocytosis, tachycardia, and hypotension - Source likely sacral decub --> Patient requires broad spectrum antibiotic coverage specifically targeting anaerobes and gram negatives as well as MRSA - will start on Zosyn w/ adjustment for renal function as well as Daptomycin, pharmacy to dose - Obtained pelvic xray as noted above to r/o evidence of osteomyelitis, radiolucency seen in coccyx ?osteo - Aggressive IVF hydration initiated with LR but has since been changed to maintenance NSS - Hold antihypertensives - Went to OR today, appears there is bone involvement, will go back for further debridement on 07/25 - Blood cultures pending - Repeat lactate ordered -- normal - Maintain PCU level of care (2) Sacral decubitus ulcer, stage IV: Plan: Status post debridement by surgery in the beginning of unfortunately will need to be debrided againscheduled for Monday 07/23. - Wound vac not currently in place - Follows with wound care center - Continue local wound care as outlined by GS and dentures lab technician - Went to OR today, sacral wound swab sent for C&S - for additional debridement on 07/25 (3) Osteomyelitis of sacrum: Plan: - Plan as per #1 and 2 - Await culture data to guide antibiotic therapy - Per UTD, will require at least 6 weeks of IV antibiotic therapy after last debridement - Can consider ID consult while inpatient to determine if that is an acceptable duration - One blood culture + for GNB, will need to have clear cultures prior to picc line insertion (4) UTI (urinary tract infection) due to Enterococcus: Plan: - Prelim culture growing probable enterococcus - Covered by Daptomycin (5) Ambulatory dysfunction: Plan: 2 different processesbiomechanical pain in the region of his piriformis, as well as lumbar radiculopathy that seems to fit with his L1 problem. - Pain control, OMT, PT/OT eval and treatdue to fall risk and only his able to support him at home, they both prefer to try skilled with rehab emphasis as his disposition from the hospital - Continue oral analgesics. Lidoderm patch ordered to be placed across the lumb ar sacral region. Fentanyl patch discontinued on 07/21 - Case management on board -- ?[facility] or [facility] may have beds this week but do not anticipate pt will be ready this week (6) Lumbar spinal stenosis: Plan: - Appreciate pain management input for pain control, not a surgical candidate at this time due to his sacral ulcer. - Pain control seems to be doing better overall, and really his only persistent pain is that L1/2 radiculopathy, but even that seems better than before. - Continue PT/OT - Still awaiting placement (SNF/rehab emphasis) given that he is too weak to be safe at home at this time. (7) MARINO (acute kidney injury): Plan: - Likely was a bit dry on admissionnot eating and drinking as well as he normally does, but still taking his Lasix. - Continue to hold Lasix and follow periodically, creatinine appears to be at a relatively steady state in the low 4 range - no acute indications for dialysis although overall appears to be trending in that direction based on his labs and nephrology input - Other electrolytes remained stable. Patient continues to have urine output. (8) Chronic kidney disease, stage IV (severe): Plan: As above - Renally dose medications when appropriate - Avoid nephrotoxins - Hold home Lasix 40 mg daily for acute kidney injury as above (9) Anemia due to chronic kidney disease: Plan: Acute on chronic anemia - Hemoglobin lower than previousalthough still likely overall relates to CKD - It does seem that he receives darbepoetin monthly with nephrology - IV iron ordered by nephrology days ago but not placed on oral daily supplementation - Will T&C for 2 units of PRBCs especially since pt went to the OR today, premedicate prior, no lasix in between - start oral FeSO4 - Monitor H&H following transfusion (10) Neurogenic bowel: Plan: - Does not follow specific bowel regimen but does move his bowels every 3 to 4 days - MiraLAX as needed (11) Sleep apnea: Plan: -Patient reports he is tolerating his CPAP. It is noted to be at bedside. Patient specifically questioned about facial hair. He states that he gets a good seal. 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 Marroquin (17) Hypertension: Plan: - Blood pressure is reasonable. Continue to follow - Does have some LE edema, unsure if this is chronic for him but he is on Norvasc which could be contributing to this (18) Hyperlipidemia: Plan: - Continue statin (19) Somatic dysfunction of pelvic region: Plan: - OMT as above Plan: DVT prophylaxis-Eliquis on hold for surgery. Heparin held for OR today. Disposition-transfer to PCU as noted above Interventions as noted above, trend labs, will d/w Dr. Neff. Admission and Anticipated Discharge Date Admission Date: July 13, 2021 Subjective Patient seen on daily rounds today. He was moved from med/surg to PCU on 07/22 due to new diagnosis of sepsis. Pt has since been started on broad spectrum antibiotics (Zosyn and Daptomycin) and was aggressively hydrated. He was kept NPO overnight and taken to the OR this AM with Dr. Myers for debridement of stage 4 sacral decubitus. Upon return from OR to the floor, pt's BP has been marginal in the 90s and his HR has been in the 110s. Last fever documented in chart was 38.2C on 07/22 @ 1140. On rounds he denied chest pain, dyspnea, n/v, f/c, headache, or gu symptoms. He is sleepy but answers questions appropriately. General surgery plans to take pt back to the OR for additional debridement on 07/25 as there does appear to be bone involvement associated with his sacral decubitus. Review of Systems Review of Systems: CONSTITUTIONAL: +generalized weakness. Denies weight loss/gain, fever and chills, fatigue, malaise. HEENT: Denies changes in vision and hearing. RESPIRATORY: Denies SOB, cough, wheezing. CV: Denies palpitations, CP, lower extremity edema, orthopnea, PND. GI: Denies abdominal pain, nausea, vomiting and diarrhea. : Denies dysuria and urinary frequency, urgency, hesitancy. MUSCULOSKELETAL: Denies myalgia and joint pain. SKIN: +sacral wound. Denies rash and pruritus. NEUROLOGICAL: +lethargic but just returned from OR. Denies headache, syncope, focal weakness, numbness, tingling. PSYCHIATRIC: Denies recent changes in mood. Denies anxiety and depression. Physical Exam Physical Exam: GENERAL: 75 elderly WM, WD/WN. Lethargic but arousable. NAD. LUNGS: Clear to auscultation bilaterally. No accessory muscle use. No W/R/R. CARDIOVASCULAR: Irregular rate and rhythm. 2/6 IVA. No gallops or rubs. ABDOMEN: Soft, NT, ND. Normal BS x 4 quad. EXTREMITIES: Trace edema in RLE and +1 pitting edema in LLE. Peripheral pulses +2/4. NEUROLOGIC: No focal neuro deficits. SKIN: Stage 4 sacral decub--pt lying on back, wound not examined. Results & Data Results & Data ([facility]) Vital Signs (Past 12 Hours) Vital Signs Temp Pulse Pulse Pulse Resp BP BP 07/23/21 09:50 37.3 C 95 H 18 90/53 L 07/23/21 09:30 36.9 C 101 H 18 94/59 L 07/23/21 09:20 36.9 C 105 H 18 92/54 L 07/23/21 09:10 105 H 18 97/65 L 07/23/21 09:00 107 H 18 111/88 07/23/21 08:50 107 H 18 107/68 07/23/21 08:44 37.1 C 102 H 18 116/72 07/23/21 06:45 37.2 C 108 H 20 120/74 07/23/21 03:51 37.1 C 106 H 18 106/65 07/23/21 00:00 37.1 C 99 H 18 112/71 07/22/21 23:45 101 H Pulse Ox 07/23/21 09:50 94 07/23/21 09:30 95 07/23/21 09:20 95 07/23/21 09:10 95 07/23/21 09:00 100 07/23/21 08:50 100 07/23/21 08:44 99 07/23/21 06:45 93 07/23/21 03:51 93 07/23/21 00:00 95 07/22/21 23:45 Laboratory Results 07/23/21 09:16 07/23/21 06:07 Diagnostic Findings Operation Date: 07/23/21 07:30 Actual Procedures p Excisional Debridement of Sacral Decubitus Ulcer Down to Bone 8cm x 8cm(Not Applicable) - Ranjeet Myers, DO ECG Additional Comments: TELE: afib w/ uncontrolled rate 110s PG Care Time/CCT Total # of Minutes Spent Total Time Spent with Patient: Total time spent is greater than 50% in coordination of care (as documented) at patient's floor/unit and/or counseling patient: Coding Level of Care Code 37952 Subseq Hosp Care Lvl 3 Diagnoses Sepsis A41.9 Sacral decubitus ulcer, stage IV L89.154 Ambulatory dysfunction R26.2 Lumbar spinal stenosis M48.061 MARINO (acute kidney injury) N17.9 Chronic kidney disease, stage IV (severe) N18.4 Anemia due to chronic kidney disease N18.9; D63.1 Neurogenic bowel K59.2 Sleep apnea G47.30 Vitamin D deficiency, unspecified E55.9 Neurogenic bladder N31.9 Anxiety F41.9 Atrial fibrillation I48.2 Atrial fibrillation type: permanent Abdominal aortic aneurysm I71.4 Presence of rupture: without rupture Hypertension I10 Hypertension type: essential hypertension Hyperlipidemia E78.5 Somatic dysfunction of pelvic region M99.05 Osteomyelitis of sacrum M46.28 UTI (urinary tract infection) due to Enterococcus N39.0; B95.2 (1) Abdominal aortic aneurysm Presence of rupture: without rupture Qualified Code(s): I71.4 - Abdominal aortic aneurysm, without rupture (2) Atrial fibrillation Atrial fibrillation type: permanent Qualified Code(s): I48.2 - Chronic atrial fibrillation (3) Hypertension Hypertension type: essential hypertension Qualified Code(s): I10 - Essential (primary) hypertension
[2021-07-23] MEDS: amLODIPine BESYLATE 5 MG TAB PO SCH (11:29)
[2021-07-23] MEDS: METOPROLOL SUCC 50MG EXT REL TAB PO SCH (11:30)
[2021-07-23] MEDS: LIDOCAINE 5% 1 PATCH TD SCH (11:41)
[2021-07-23] MEDS: DULoxetine HCL 30 MG CAP PO SCH (11:42)
[2021-07-23] MEDS: SODIUM BICARBONATE 650 MG TAB PO SCH ×2 (11:42→20:24)
[2021-07-23] MEDS: MULTIVITAMIN TAB PO SCH (11:42)
[2021-07-23] MEDS: METHENAMINE HIPPURATE 1 GM TAB PO SCH (11:42)
[2021-07-23] MEDS: CALCITRIOL 0.25 MCG CAPSULE PO SCH (11:43)
[2021-07-23] MEDS: minoxidiL 2.5 MG TAB PO SCH (11:44)
[2021-07-23] MEDS: METOPROLOL SUCC 25MG EXT REL TAB PO SCH (12:47)
[2021-07-23] MEDS: FERROUS SULFATE 325 MG TAB PO SCH (16:36)
[2021-07-23] MEDS: CHOLECALCIFEROL 1,000 UNITS 25 MCG TAB PO SCH (20:24)
[2021-07-23] MEDS: GABAPENTIN 300 MG CAP PO SCH (20:24)
[2021-07-24] MEDS: SODIUM CHLORIDE 0.9% 1000ML 1,000 ML IV SCH ×3 (03:18→23:22)
[2021-07-24] MEDS: PIPERACILLIN/TAZOBACTAM 3.375 GM in DEXTROSE 5% 100 ML IV SCH ×2 (06:23→17:21)
[2021-07-24 07:07] LABS: Creatinine Clr Calc Pharmacy 17.7 ml/min; Est GFR (African American) 13.6 ml/min; Est GFR (Non-African American) 11.7 ml/min
[2021-07-24 08:10] LABS: Hematocrit (blood only) 24.2 % (42-52); Hemoglobin 7.8 g/dL (14.0-18.0); Immature Granulocytes # (auto) 0.04 K/uL (0.00-0.02); Immature Granulocytes % (auto) 0.4 %; Lymphocytes # (auto) 0.27 K/uL (1.2-3.4); Lymphocytes % (auto) 2.5 %; Mean Corpuscular Volume 93.1 fL (80-100); Mean Platelet Volume 8.2 fL (7.4-10.4); Monocytes # (auto) 0.54 K/uL (0.11-0.59); Neutrophils # (auto) 9.93 K/uL (1.4-6.5); Neutrophils % (auto) 92.1 %; Platelet Count 314 K/uL (130-400); RDW Coefficient of Variation 15.9 % (11.5-14.5); RDW Standard Deviation 53.6 fL (36.4-46.3); White Blood Count 10.78 K/uL (4.8-10.8)
[2021-07-24 08:14] LABS: Mean Corpuscular Hgb Conc 32.2 g/dL (32-36)
[2021-07-24 08:34] LABS: Bilirubin,Total 0.4 mg/dl (0.2-1)
[2021-07-24 08:46] LABS: Albumin Globulin Ratio 0.5 (0.9-2); BUN Creatinine Ratio 18.5 (10-20); Calcium 8.3 mg/dl (8.5-10.1); Creatinine Clr Calc Pharmacy 17.8 ml/min; Est GFR (African American) 13.6 ml/min; Est GFR (Non-African American) 11.8 ml/min; Globulin 3.9 gm/dl (2.5-4.0); Potassium 4.2 mmol/L (3.5-5.1); Total Protein 5.9 gm/dl (6.4-8.2)
[2021-07-24 08:55] LABS: Acanthocytes 1+; Anisocytosis Present; Echinocytes 2+; Ovalocytes 1+
[2021-07-24] MEDS: FERROUS SULFATE 325 MG TAB PO SCH ×2 (08:58→17:21)
[2021-07-24] MEDS: CALCITRIOL 0.25 MCG CAPSULE PO SCH (08:58)
[2021-07-24] MEDS: DULoxetine HCL 30 MG CAP PO SCH (08:58)
[2021-07-24] MEDS: MULTIVITAMIN TAB PO SCH (08:59)
[2021-07-24] MEDS: SODIUM BICARBONATE 650 MG TAB PO SCH ×2 (08:59→21:01)
[2021-07-24] MEDS: METOPROLOL SUCC 25MG EXT REL TAB PO SCH (08:59)
[2021-07-24] MEDS: minoxidiL 2.5 MG TAB PO SCH (08:59)
[2021-07-24] MEDS: LIDOCAINE 5% 1 PATCH TD SCH (09:00)
[2021-07-24] MEDS: METHENAMINE HIPPURATE 1 GM TAB PO SCH (09:01)
--- NOTE | 2021-07-24 10:25 | Surgery Progress Note ---
Date of Service July 24, 2021 Assessment & Plan (1) Osteomyelitis of sacrum: Plan: Cultures from OR pending Continue IV antibiotics broad-spectrum at this point Continue to hold Eliquis We will make n.p.o. after midnight for second look and repeat debridement carmencita margarita (2) Sacral decubitus ulcer, stage IV: Admission and Anticipated Discharge Date Admission Date: July 13, 2021 Subjective Patient seen and examined. No acute events overnight. No problems with dressing. Hemodynamically stable. Afebrile. Physical Exam Constitutional: WD/WN, vitals as above Skin: Sacral dressing intact without drainage Results & Data ([facility]) Vital Signs (Past 12 Hours) Vital Signs Temp Pulse Pulse Resp BP BP Pulse Ox 07/24/21 08:00 74 07/24/21 07:44 86 07/24/21 07:38 36.3 C L 72 19 105/67 91 07/24/21 03:25 36.3 C L 74 18 95/64 L 99 07/24/21 00:24 78 07/23/21 23:28 36.4 C L 92 H 18 113/78 95 PG Care Time/CCT Total # of Minutes Spent Total Time Spent with Patient: Total time spent is greater than 50% in coordination of care (as documented) at patient's floor/unit and/or counseling patient: Coding Level of Care Code 07024 Subseq Hosp Care Lvl 1 Diagnoses Osteomyelitis of sacrum M46.28 Sacral decubitus ulcer, stage IV L89.154
--- NOTE | 2021-07-24 10:49 | Anesthesiology Consultation ---
Date of Service July 24, 2021 Assessment & Plan (1) Encounter for pre-operative examination: Chart Review Chart Review: Acceptable Risk for Surgery and Patient NOT seen in Pre Admission Testing Covid neg 07/22/21. Patient had I and D sacral decub 07/23/21. Consults Requested none History Surgery Operation Date: 07/23/21 07:30 Proposed Procedures p Debridement of Sacral Decubitus Ulcer - Ranjeet Myers DO Operation Date: 07/25/21 10:05 Proposed Procedures p Debridement of Sacral Decubitus Ulcer - Ranjeet Myers DO Height/Weight Height: 6 ft Weight: 104.9 kg Allergies Allergy/AdvReac Type Severity Reaction Status Date / Time tetracycline Allergy Intermediate HIVES Verified 07/13/21 11:52 morphine AdvReac Mild Nausea Verified 07/13/21 11:52 Medications Home Medications Medication Instructions Recorded Confirmed Last Taken multivitamin with minerals 1 tab PO QAM tab 04/06/18 07/13/21 07/13/21 cholecalciferol (vitamin D3) 50 50 mcg PO QPM 12/31/19 07/13/21 07/12/21 mcg (2,000 unit) tablet (Vitamin D3) tramadol 50 mg tablet 50 mg PO Q6H PRN 01/15/20 07/13/21 07/13/21 azelastine 205.5 mcg (0.15 %) 1 spray INTNAS HS PRN #30 ml 09/04/20 07/13/21 06/26/21 11:15 nasal spray minoxidil 10 mg tablet 10 mg PO QAM #90 tab 12/18/20 07/13/21 07/13/21 metoprolol succinate 50 mg 50 mg PO QAM #90 tab 12/26/20 07/13/21 07/13/21 tablet,extended release 24 hr (Toprol XL) methenamine hippurate 1 gram tablet 1 g PO QAM #90 tab 01/18/21 07/13/21 07/13/21 atorvastatin 20 mg tablet (Lipitor) 20 mg PO QPM tab 05/11/21 07/13/21 07/12/21 darbepoetin nimisha in polysorbat 60 60 mcg SUBCUT MONTHLY 06/12/21 07/13/21 06/13/21 mcg/0.3 mL in polysorbate injection syringe (Aranesp) alprazolam 0.25 mg tablet 0.25 mg PO DAILY PRN tab 06/18/21 07/13/21 07/12/21 duloxetine 30 mg capsule,delayed 30 mg PO QAM cap 06/18/21 07/13/21 07/13/21 release amlodipine 5 mg tablet (Norvasc) 5 mg PO QAM 06/20/21 07/13/21 07/13/21 calcitriol 0.25 mcg capsule 0.25 mcg PO QAM 06/20/21 07/13/21 07/13/21 furosemide 40 mg tablet 40 mg PO QAM #90 tab 07/04/21 07/13/21 07/13/21 sodium bicarbonate 650 mg tablet 650 mg PO BID #180 tab 07/04/21 07/13/21 07/13/21 acetaminophen 500 mg tablet 1,000 mg PO DIRECTED PRN 07/13/21 07/13/21 07/11/21 (Tylenol Extra Strength) 1000 mg apixaban 2.5 mg tablet (Eliquis) 2.5 mg PO BID 07/13/21 07/13/21 Unknown metronidazole 1 % topical gel 1 applic TOPICAL DIRECTED 07/13/21 07/13/21 Unknown (Metrogel) Active Medications Generic Name Dose Route Start Last Admin Trade Name Freq PRN Reason Stop Dose Admin Acetaminophen 650 mg 07/13/21 14:55 07/22/21 09:54 Acetaminophen 325 Mg Tab PO 08/12/21 14:54 650 mg Q4H PRN Administration Pain or Fever Hydrocodone Bitart/Acetaminophen 1 tab 07/13/21 13:08 07/22/21 09:54 Hydrocodone/Acetamophen 5/325mg Tab PO 07/27/21 13:07 1 tab Q12H PRN Administration Pain Alprazolam 0.25 mg 07/13/21 14:55 07/21/21 23:46 Alprazolam 0.25 Mg Tablet PO 08/12/21 14:54 0.25 mg DAILY PRN Administration anxiety Amlodipine Besylate 5 mg 07/14/21 09:00 07/23/21 11:29 Amlodipine Besylate 5 Mg Tab PO 08/13/21 08:59 Not Given Q[facility] Atorvastatin Calcium 20 mg 07/13/21 21:00 07/21/21 19:20 Atorvastatin 20 Mg Tab PO 08/12/21 20:59 20 mg QPM [facility] Administration Calcitriol 0.25 mcg 07/14/21 09:00 07/24/21 08:58 Calcitriol 0.25 Mcg Capsule PO 08/13/21 08:59 0.25 mcg QAM [place] Administration Duloxetine HCl 30 mg 07/14/21 09:00 07/24/21 08:58 Duloxetine Hcl 30 Mg Cap PO 08/13/21 08:59 30 mg QAM [place] Administration Ferrous Sulfate 325 mg 07/23/21 17:00 07/24/21 08:58 Ferrous Sulfate 325 Mg Tab PO 08/22/21 16:59 325 mg BIDM [facility] Administration Gabapentin 300 mg 07/13/21 21:00 07/23/21 20:24 Gabapentin 300 Mg Cap PO 08/12/21 20:59 300 mg HS [facility] Administration Hydromorphone HCl 0.5 mg 07/13/21 14:55 07/22/21 21:28 Hydromorphone Inj 0.5 Mg/0.5 Ml Syr IV 07/27/21 14:54 0.5 mg Q6H PRN Administration severe pain Piperacillin Sod/Tazobactam 115 mls @ 28.75 mls/hr 07/22/21 18:00 07/24/21 10:25 Sod 3.375 gm/ Dextrose IV 07/29/21 17:59 Infused Q12H [facility] Infusion Protocol Daptomycin 475 mg/ Syringe 9.5 mls @ 4.75 mls/min 07/22/21 15:30 07/22/21 15:50 IV 07/29/21 15:29 4.75 mls/min Q2D@1600 [facility] Administration Protocol Sodium Chloride 1,000 mls @ 100 mls/hr 07/22/21 17:45 07/24/21 03:18 Nss 1000ml IV 08/21/21 17:44 100 mls/hr .Q10H [facility] Administration Lidocaine 1 patch 07/21/21 13:45 07/24/21 09:00 Lidocaine 5% 1 Patch TD 08/20/21 13:44 1 patch QAM [facility] Administration Methenamine Hippurate 1 gm 07/14/21 09:00 07/24/21 09:01 Methenamine Hippurate 1 Gm Tab PO 08/13/21 08:59 1 gm QAM [facility] Administration Metoprolol Succinate 25 mg 07/23/21 11:30 07/24/21 08:59 Metoprolol Succ 25mg Ext Rel Tab PO 08/22/21 11:29 25 mg QAM [place] Administration Minoxidil 10 mg 07/14/21 09:00 07/24/21 08:59 Minoxidil 2.5 Mg Tab PO 08/13/21 08:59 10 mg QAM [facility] Administration Miscellaneous 1 ea 07/21/21 21:00 07/23/21 20:25 Remove Lidoderm Patch N/A 08/20/21 20:59 1 ea DAILY@2100 [facility] Administration Multivitamins 1 tab 07/14/21 09:00 07/24/21 08:59 Multivitamin Tab PO 08/13/21 08:59 1 tab QAM [place] Administration Sodium Bicarbonate 650 mg 07/13/21 21:00 07/24/21 08:59 Sodium Bicarbonate 650 Mg Tab PO 08/12/21 20:59 650 mg BID [facility] Administration Vitamin D 2,000 units 07/13/21 21:00 07/23/21 20:24 Cholecalciferol 1,000 Units 25 Mcg Tab PO 08/12/21 20:59 2,000 units QPM [place] Administration Past Medical History Medical History Abdominal aortic aneurysm (~2014) S/p Type A dissection with emergent repair in 2014 Later found to have AAA 3.5cm- followed by vascular surgery with medical management Anemia due to chronic kidney disease Anxiety Atrial fibrillation Follows with [facility] cardiology (Dr. Jarvis) On Eliquis BPH with obstruction/lower urinary tract symptoms DENIES ENLARGED PROSTATE Chronic kidney disease, stage IV (severe) Follows with [facility] urology, nephrology/under surveillance, no dialysis at this time History of CHF (congestive heart failure) 2003 Hyperlipidemia Hypertension Lumbar spinal stenosis Metabolic acidosis Neurogenic bladder Self Catheterization since Aortic repair Neuropathic pain PTSD (post-traumatic stress disorder) POST AORTIC DISSECTION Sleep apnea CPAP Spinal cord cysts Pt states L1 and L2, dx 05/2021, by Dr. Shrestha at [facility] Anemia: Patient received 2 units pRBC's 07/23/21. Hospitalist note 07/23/21: Assessment & Plan (1) Sepsis: Plan: Patient with increased lethargy, hallucinations, now manifesting fevers with findings of leukocytosis, tachycardia, and hypotension - Source likely sacral decub --> Patient requires broad spectrum antibiotic coverage specifically targeting anaerobes and gram negatives as well as MRSA - will start on Zosyn w/ adjustment for renal function as well as Daptomycin, pharmacy to dose - Obtained pelvic xray as noted above to r/o evidence of osteomyelitis, radiolucency seen in coccyx ?osteo - Aggressive IVF hydration initiated with LR but has since been changed to maintenance NSS - Hold antihypertensives - Went to OR today,appears there is bone involvement, will go back for further debridement on 07/25 - Blood cultures pending - Repeat lactate ordered -- normal - Maintain PCU level of care Past Family History Family History Grandmother Family history of diabetes mellitus Mother Gallbladder disease Father Prostate cancer Myocardial infarction Hypertension Other Family history non-contributory No family history of adverse response to anesthesia Denies family history of Ovarian cancer Breast cancer Colorectal cancer Past Surgical History Surgical History History of arthroplasty of left hip History of arthroscopy RT KNEE History of bladder surgery History of cardiac catheterization 2004 - no stents - [facility] in [place] History of cardioversion mult History of cataract surgery RT/LEFT History of colonoscopy History of esophagogastroduodenoscopy (EGD) History of gastric bypass 2010 History of lumbar fusion History of open reduction and internal fixation (ORIF) procedure RT WRIST 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 History of revision of total hip arthroplasty left History of rhinoplasty History of tooth extraction History of total knee replacement RT History of total left hip arthroplasty (~12/2019) History of transurethral resection of prostate Nausea and vomiting after administration of anesthetic agent S/P debridement (06/27/21) Excisional Debridement Sacral Decubitus Ulcer down to muscle level 4cm x 6cm - Ranjeet Myers, DO 06/27/2021 S/P total right hip arthroplasty Social History Smoking Status: Never smoker Hx Alcohol Use: No Hx Substance Use: No substance use type: does not use Physical Exam Vital Signs Last Vital Signs Temp 36.3 C L 07/24/21 07:38 Pulse 74 07/24/21 08:00 Resp 19 07/24/21 07:38 BP 105/67 07/24/21 07:38 Pulse Ox 91 07/24/21 07:38 Testing Laboratory Results 07/24/21 05:32 07/24/21 05:32 Urine Color Yellow 07/22/21 06:05 Urine Appearance Clear (Clear) 07/22/21 06:05 Urine pH 5.5 (4.5-7.5) 07/22/21 06:05 Ur Specific [place] 1.007 (1.000-1.030) 07/22/21 06:05 Urine Protein 1+ (Negative) H 07/22/21 06:05 Urine Glucose (UA) Negative (Negative) 07/22/21 06:05 Urine Ketones Negative (Negative) 07/22/21 06:05 Urine Nitrite Negative (Negative) 07/22/21 06:05 Ur Leukocyte Esterase Trace (Negative) H 07/22/21 06:05 Urine WBC (Auto) 1-5 /hpf (0-5) 07/22/21 06:05 Urine RBC (Auto) 0-4 /hpf (0-4) 07/22/21 06:05 U Hyaline Cast (Auto) 0 /lpf (0-5) 07/22/21 06:05 U Epithel Cells (Auto) >30 /lpf (0-5) H 07/22/21 06:05 Urine Bacteria (Auto) Negative (Negative) 07/22/21 06:05 Blood Type O Positive 07/23/21 07:20 Antibody Screen NEGATIVE 07/23/21 07:20 07/22/21 06:05 Urine Culture - Final Urine,Straight Cath Enterococcus faecalis 07/23/21 08:07 Gram Stain - Final Sacrum Aerobic and Anaerobic Culture - Preliminary Gram negative bacilli 07/23/21 08:07 Gram Stain - Final Sacrum Aerobic and Anaerobic Culture - Preliminary Gram negative bacilli 07/22/21 01:09 Aerobic Blood Culture - Preliminary Blood No growth in Aerobic bottle after 48 hours. Anaerobic Blood Culture - Preliminary Gram negative bacilli 07/22/21 01:09 Aerobic Blood Culture - Preliminary Blood No growth in Aerobic bottle after 48 hours. Anaerobic Blood Culture - Preliminary No growth in Anaerobic bottle after 48 hours. Electrocardiogram Date: 07/23/21 A fib with premature ventricular or aberrantly conducted complexes. LAFB. Prolonged QT. Chest X-Ray Date: 07/22/21 XR chest 1V portable CLINICAL HISTORY: new fever TECHNIQUE: Single frontal radiograph of the chest was obtained. Comparison: Comparison is made to chest one view 05/01/2018 FINDINGS: No lines and tubes are seen. The cardiomediastinal silhouette is normal. There is prominence and cephalization of the vasculature with Frantz B lines seen. No evidence of pleural effusion or pneumothorax. IMPRESSION: Cardiomegaly and moderate pulmonary edema.
--- NOTE | 2021-07-24 12:46 | Hospitalist Progress Note ---
Date of Service July 24, 2021 Assessment & Plan (1) Sepsis: Plan: Patient with increased lethargy, hallucinations, now manifesting fevers with findings of leukocytosis, tachycardia, and hypotension - Source is sacral decub --> Patient requires broad spectrum antibiotic coverage specifically targeting anaerobes and gram negatives as well as MRSA - will start on Zosyn w/ adjustment for renal function as well as Daptomycin, pharmacy to dose - Aggressive IVF hydration initiated with LR but has since been changed to maintenance NSS - Hold Norvasc due to marginal BP - Went to OR 07/23, noted to have bone involvement, will go back for further debridement on 07/25 - Wound and blood cultures growing same bacteria -- continue current abx reigmen until data is finalized - Repeat lactate ordered and was normal - Maintain PCU level of care (2) Sacral decubitus ulcer, stage IV: Plan: Status post debridement x 2 - Wound vac not currently in place - Follows with wound care center - Continue local wound care as outlined by GS and special education resource teacher - Went to OR today, sacral wound swab sent for C&S, results as noted above - for additional debridement on 07/25 (3) Osteomyelitis of sacrum: Plan: - Plan as per #1 and 2 - Await culture data to guide antibiotic therapy - Per UTD, will require at least 6 weeks of IV antibiotic therapy after last debridement - Can consider ID consult while inpatient to determine if that is an acceptable duration - One blood culture + for GNB, will need to have clear cultures prior to picc line insertion (4) Bacteremia: Plan: - See plan 1-3 (5) UTI (urinary tract infection) due to Enterococcus: Plan: - Urine culture confirmed enterococcus faecalis, see above - Covered by Daptomycin (6) Ambulatory dysfunction: Plan: 2 different processesbiomechanical pain in the region of his piriformis, as well as lumbar radiculopathy that seems to fit with his L1 problem. - Pain control, OMT, PT/OT eval and treatdue to fall risk and only his able to support him at home, they both prefer to try skilled with rehab emphasis as his disposition from the hospital - Continue oral analgesics. Lidoderm patch ordered to be placed across the lumbar sacral region. Fentanyl patch discontinued on 07/21 - Case management on board -- ?[facility] or [facility] may have beds this week but do not anticipate pt will be ready this week (7) Lumbar spinal stenosis: Plan: - Appreciate pain management input for pain control, not a surgical candidate at this time due to his sacral ulcer. - Pain control seems to be doing better overall, and really his only persistent pain is that L1/2 radiculopathy, but even that seems better than before. - Continue PT/OT - Still awaiting placement (SNF/rehab emphasis) given that he is too weak to be safe at home at this time. (8) MARINO (acute kidney injury): Plan: - Likely was a bit dry on admissionnot eating and drinking as well as he normally does, but still taking his Lasix. - Continue to hold Lasix and follow periodically, creatinine appears to be at a relatively steady state in the low 4 range - no acute indications for emergent dialysis (gap closed, no hyperkalemia) although overall appears to be trending in that direction based on his labs and nephrology input - Other electrolytes remained stable. Patient continues to have urine output. - I have asked nephrology to see patient again since creat is uptrending again despite holding diuretics and receiving IVF, d/w Dr. Paul (9) Chronic kidney disease, stage IV (severe): Plan: As above - Renally dose medications when appropriate - Avoid nephrotoxins - Hold home Lasix 40 mg daily for acute kidney injury as above (10) Anemia due to chronic kidney disease: Plan: Acute on chronic anemia - Hemoglobin lower than previousalthough still likely overall relates to CKD - It does seem that he receives darbepoetin monthly with nephrology - IV iron ordered by nephrology days ago but not placed on oral daily supplementation - Will T&C for 2 units of PRBCs especially since pt went to the OR today, premedicate prior, no lasix in between - start oral FeSO4 - hgb 7.8 this AM despite 2 units of PRBCs yesterday - Will transfuse additional 2 units especially in light of going to the OR tomorrow (11) Neurogenic bowel: Plan: - Does not follow specific bowel regimen but does move his bowels every 3 to 4 days - MiraLAX as needed (12) Sleep apnea: Plan: - Patient reports he is tolerating his CPAP. It is noted to be at bedside. Patient specifically questioned about facial hair. He states that he gets a good seal. (13) Vitamin D deficiency, unspecified: Plan: - Continue vitamin D replacement (14) Neurogenic bladder: Plan: - Continue self cath as tolerated (15) Anxiety: Plan: - Continue duloxetine 30 mg daily - Continue alprazolam as needed (16) Atrial fibrillation: Plan: - Rate controlled - On bed bug exterminator AC -- Apixaban remains on hold since he will be returning to OR on 07/25 (17) Abdominal aortic aneurysm: Plan: With a history of such - Follow-up with Dr. Marroquin (18) Hypertension: Plan: - Blood pressure is reasonable. Continue to follow - Does have some LE edema, unsure if this is chronic for him but he is on Norvasc which could be contributing to this (19) Hyperlipidemia: Plan: - Continue statin (20) Somatic dysfunction of pelvic region: Plan: - OMT as above Plan: DVT prophylaxis-Eliquis on hold for surgery. Disposition-continue PCU NPO after MN tonight for OR tomorrow Admission and Anticipated Discharge Date Admission Date: July 13, 2021 Subjective Patient seen on daily rounds this morning. He remains stable in PCU, he's post op day#1 from additional debridement of his stage IV sacral decub by Dr. Myers. Pt found to have bony involvement and now with plans to return to OR on 07/25 for additional debridement. Deep wound cultures thus far are growing gram negative and strep on preliminary reports. Pt also found to have one set of bloo d cultures positive for GNB. He remains on antibiotic therapy with both Zosyn and Daptomycin. This morning, pt has no complaints, denies low back pain or leg pain, denies numbness/tingling, denies cp, dyspnea, palpitations, n/v/d, f/c, headache, or gu symptoms. Review of Systems Review of Systems: CONSTITUTIONAL: +generalized weakness. Denies weight loss/gain, fever and chills, fatigue, malaise. HEENT: Denies changes in vision and hearing. RESPIRATORY: Denies SOB, cough, wheezing. CV: Denies palpitations, CP, lower extremity edema, orthopnea, PND. GI: Denies abdominal pain, nausea, vomiting and diarrhea. : Denies dysuria and urinary frequency, urgency, hesitancy. MUSCULOSKELETAL: Denies myalgia and joint pain. SKIN: +sacral wound. Denies rash and pruritus. NEUROLOGICAL: Denies headache, syncope, focal weakness, numbness, tingling. PSYCHIATRIC: Denies recent changes in mood. Denies anxiety and depression. Physical Exam Physical Exam: GENERAL: 75 elderly WM, WD/WN. Lethargic but arousable. NAD. LUNGS: Clear to auscultation bilaterally. No accessory muscle use. No W/R/R. CARDIOVASCULAR: Irregular rate w/ cvr. 2/6 IVA. No gallops or rubs. ABDOMEN: Soft, NT, ND. Normal BS x 4 quad. EXTREMITIES: Trace edema in RLE and +1 pitting edema in LLE. Peripheral pulses +2/4. NEUROLOGIC: No focal neuro deficits. SKIN: Stage 4 sacral decub--dressing in place. Dressing dry/not saturated. Results & Data Results & Data ([facility]) Vital Signs (Past 12 Hours) Vital Signs Temp Pulse Pulse Resp BP BP Pulse Ox 07/24/21 11:01 36.4 C L 101 H 20 102/60 92 07/24/21 08:00 74 07/24/21 07:44 86 07/24/21 07:38 36.3 C L 72 19 105/67 91 07/24/21 03:25 36.3 C L 74 18 95/64 L 99 Laboratory Results 07/24/21 05:32 07/24/21 05:32 Spec: [id number] Collected: 07/23/21 Received: 07/23/[address]: Eber Neff MD Copy To: Angela Martin MD Source: Sacrum OV Order: Ordered: Aer/Joanne Cult/Sm Comments: Culture#2-Deep sacral swab Procedure Result Verified Site Gram Stain Final 07/23/21 Gram Stain Result Few WBCs Seen Few Gram Positive Cocci Few Gram Positive Bacilli Aero/Joanne Cult Preliminary 07/24/211 Organism 1 Gram negative bacilli Quantity Few Sens No Sensitivities to Follow Organism 2 Alpha strep. not enterococcus Quantity Few Sens No Sensitivities to Follow Please see culture number [id number] for sensitivities. Spec: [id number] Collected: 07/22/21 Received: 07/22/[address]: Helen Maguire MD Copy To: Angela Martin MD Source: Urine,Straight Cath OV Order: Ordered: Urine Culture Procedure Result Verified Site Urine Culture Final 07/24/21-1031 Organism 1 Enterococcus faecalis Bat[place]lor Count 40,000 CFU/ml Sens Sensitivities to Follow E faecalis RX M.I.C. --- --------- Ampicillin S <=2 Ciprofloxacin S <=1 Daptomycin S <=0.5 Gent Synergy R >500 Levofloxacin S 2 Nitrofurantoin S <=32 Penicillin S 2 Strep Synergy S <=1000 Tetracycline R >8 Vancomycin S 2 Enterococcus faecalis: Positive Combo 33 Streptomycin Synergy Screen S Gentamicin Synergy Screen R S = SENSITIVE I = INTERMEDIATE R = RESISTANT PG Care Time/CCT Total # of Minutes Spent Total Time Spent with Patient: Total time spent is greater than 50% in coordination of care (as documented) at patient's floor/unit and/or counseling patient: Coding Level of Care Code 45953 Subseq Hosp Care Lvl 3 Diagnoses Sepsis A41.9 Sacral decubitus ulcer, stage IV L89.154 Osteomyelitis of sacrum M46.28 UTI (urinary tract infection) due to Enterococcus N39.0; B95.2 Ambulatory dysfunction R26.2 Lumbar spinal stenosis M48.061 MARINO (acute kidney injury) N17.9 Chronic kidney disease, stage IV (severe) N18.4 Anemia due to chronic kidney disease N18.9; D63.1 Neurogenic bowel K59.2 Sleep apnea G47.30 Vitamin D deficiency, unspecified E55.9 Neurogenic bladder N31.9 Anxiety F41.9 Atrial fibrillation I48.2 Atrial fibrillation type: permanent Abdominal aortic aneurysm I71.4 Presence of rupture: without rupture Hypertension I10 Hypertension type: essential hypertension Hyperlipidemia E78.5 Somatic dysfunction of pelvic region M99.05 Bacteremia R78.81 (1) Abdominal aortic aneurysm Presence of rupture: without rupture Qualified Code(s): I71.4 - Abdominal aortic aneurysm, without rupture (2) Atrial fibrillation Atrial fibrillation type: permanent Qualified Code(s): I48.2 - Chronic atrial fibrillation (3) Hypertension Hypertension type: essential hypertension Qualified Code(s): I10 - Essential (primary) hypertension
[2021-07-24] MEDS ORDERED: SODIUM CHLORIDE 0.9% 250 ML IV PRN (14:10)
[2021-07-24] MEDS ORDERED: ACETAMINOPHEN 325 MG TAB PO ONE (14:10)
[2021-07-24] MEDS ORDERED: diphenhydrAMINE Capsule 25 MG CAP PO ONE (14:10)
[2021-07-24] MEDS: DAPTOmycin 475 MG in SYRINGE 0 ML IV SCH (15:42)
--- NOTE | 2021-07-24 17:40 | Electrocardiogram Report ---
Test Reason : Blood Pressure : / mmHG Vent. Rate : 096 BPM Atrial Rate : 090 BPM P-R Int : 000 ms QRS Dur : 110 ms QT Int : 382 ms P-R-T Axes : 000 -59 071 degrees QTc Int : 482 ms Atrial fibrillation with premature ventricular or aberrantly conducted complexes Left anterior fascicular block Prolonged QT Abnormal ECG When compared with ECG of 23-JUL-2021 06:03, No significant change was found Confirmed by Shakeel Braun ([id number]) on 07/24/2021 5:40:07 PM Referred By: REFERRED SELF Confirmed By:Joe Braun
[2021-07-24] MEDS: GABAPENTIN 300 MG CAP PO SCH (21:00)
[2021-07-24] MEDS: CHOLECALCIFEROL 1,000 UNITS 25 MCG TAB PO SCH (21:01)
[2021-07-25] MEDS: PIPERACILLIN/TAZOBACTAM 3.375 GM in DEXTROSE 5% 100 ML IV SCH ×2 (05:56→18:40)
[2021-07-25 06:06] LABS: Basophils # (auto) 0.02 K/uL (0-0.2); Basophils % (auto) 0.2 %; Eosinophils # (auto) 0.15 K/uL (0-0.5); Eosinophils % (auto) 1.3 %; Hematocrit (blood only) 29.8 % (42-52); Hemoglobin 9.7 g/dL (14.0-18.0); Immature Granulocytes # (auto) 0.04 K/uL (0.00-0.02); Immature Granulocytes % (auto) 0.4 %; Lymphocytes # (auto) 0.58 K/uL (1.2-3.4); Lymphocytes % (auto) 5.1 %; Mean Corpuscular Hemoglobin 29.9 pg (25-34); Mean Corpuscular Hgb Conc 32.6 g/dL (32-36); Mean Platelet Volume 7.9 fL (7.4-10.4); Monocytes # (auto) 0.72 K/uL (0.11-0.59); Monocytes % (auto) 6.3 %; Neutrophils # (auto) 9.86 K/uL (1.4-6.5); Neutrophils % (auto) 86.7 %; Platelet Count 319 K/uL (130-400); RDW Coefficient of Variation 15.8 % (11.5-14.5); RDW Standard Deviation 52.7 fL (36.4-46.3); Red Blood Count 3.24 M/uL (4.7-6.1); White Blood Count 11.37 K/uL (4.8-10.8)
[2021-07-25 06:44] LABS: Albumin Level 2.2 gm/dl (3.4-5.0); BUN Creatinine Ratio 18.9 (10-20); Calcium 8.5 mg/dl (8.5-10.1); Creatinine Clr Calc Pharmacy 18.4 ml/min; Est GFR (African American) 14.4 ml/min; Est GFR (Non-African American) 12.4 ml/min; Potassium 3.9 mmol/L (3.5-5.1)
[2021-07-25 06:46] LABS: Albumin Globulin Ratio 0.6 (0.9-2); Bilirubin,Total 0.6 mg/dl (0.2-1); Globulin 3.9 gm/dl (2.5-4.0); Total Protein 6.1 gm/dl (6.4-8.2)
[2021-07-25] MEDS ORDERED: fentaNYL citrate 100 MCG/2 ML VIAL IV PRN (06:59)
[2021-07-25] MEDS ORDERED: HYDROmorphone INJ 1 MG/ML SYRINGE IV PRN (06:59)
[2021-07-25] MEDS ORDERED: ONDANSETRON INJ 2 MG/ML 2 ML VIAL IV PRN (06:59)
[2021-07-25] MEDS ORDERED: ATROPINE SULFATE 0.1 MG/ML 10ML SYR IV PRN (06:59)
[2021-07-25] MEDS ORDERED: ePHEDrine sulfate 50 MG/ML AMP IV PRN (06:59)
[2021-07-25] MEDS ORDERED: ROCURONIUM BROMIDE 10 MG/ML 5 ML VIAL IV ONE ×2 (07:08→07:53)
[2021-07-25] MEDS ORDERED: LIDOCAINE 2% 2 ML VIAL/AMP(20MG/ML) INFIL ONE (07:08)
[2021-07-25] MEDS ORDERED: PROPOFOL IV EMULSION 10 MG/ML 20 ML VIAL IV ONE (07:08)
[2021-07-25] MEDS ORDERED: fentaNYL citrate 100 MCG/2 ML VIAL ONE (07:08)
[2021-07-25] MEDS ORDERED: EPINEPHrine INJ 1 MG/ML AMP ONE (07:14)
[2021-07-25] MEDS ORDERED: BUPIVACAINE 0.25% 30 ML VIAL ONE (07:15)
[2021-07-25] MEDS ORDERED: BUPIVACAINE/EPINEPHRINE 0.25% 1:200,000 30 ML VIAL ONE (07:15)
--- NOTE | 2021-07-25 07:20 | History & Physical Bridge Note ---
Date of Service July 25, 2021 History & Physical Bridge Note I have examined the patient, reviewed the History & Physical and in the interval since the performance of the History & Physical I have noted the following changes of clinical significance: no changes noted
[2021-07-25] MEDS ORDERED: ESMOLOL HCL INJ 10 MG/ML 10ML VIAL IV ONE (08:29)
[2021-07-25] MEDS ORDERED: NEOSTIGMINE METHYLSULFATE 1 MG/ML 10ML VIAL ONE (08:29)
[2021-07-25] MEDS ORDERED: GLYCOPYRROLATE 0.2 MG/ML VIAL ONE (08:29)
[2021-07-25] MEDS ORDERED: DAKIN'S SOLN 0.25% HALF STRENGTH 473ML BTL EXT ONE (08:30)
--- NOTE | 2021-07-25 08:31 | Post Operative Brief Note ---
PG Immediate Post Op with CF Date of Surgery July 25, 2021 Pre & Post Diagnosis Operation Date: 07/25/21 07:30 Pre-Op Diagnosis: Sacral Decubitus Ulcer, Stage IV Post-Op Diagnosis: Sacral Decubitus Ulcer, Stage IV I identified the patient and participated in the time-out.: Yes Procedure Operation Date: 07/25/21 07:30 Actual Procedures p Excisional Debridement of Sacral Decubitus Ulcer Down to Bone, 11cm x 10cm(Not Applicable) - Ranjeet Myers DO Surgeon Ranjeet Myers DO Rail Operations Controller Alicia Barajas PA-C Estimated Blood Loss 30 Findings Consistent with Post-Op Diagnosis Specimens Specimen Description: none per surgeon Anesthesia Type General Complications none Disposition Disposition: Recovery Room
[2021-07-25] MEDS: SODIUM BICARBONATE 650 MG TAB PO SCH ×2 (09:47→21:04)
[2021-07-25] MEDS: METOPROLOL SUCC 25MG EXT REL TAB PO SCH (09:47)
[2021-07-25] MEDS: FERROUS SULFATE 325 MG TAB PO SCH ×2 (09:48→18:40)
[2021-07-25] MEDS: METHENAMINE HIPPURATE 1 GM TAB PO SCH (09:48)
[2021-07-25] MEDS: minoxidiL 2.5 MG TAB PO SCH ×2 (09:48→09:53)
[2021-07-25] MEDS: MULTIVITAMIN TAB PO SCH (09:48)
[2021-07-25] MEDS: DULoxetine HCL 30 MG CAP PO SCH (09:49)
[2021-07-25] MEDS: CALCITRIOL 0.25 MCG CAPSULE PO SCH (09:49)
[2021-07-25] MEDS: LIDOCAINE 5% 1 PATCH TD SCH (09:50)
--- NOTE | 2021-07-25 10:49 | Nephrology Progress Note ---
Date of Service July 25, 2021 Assessment & Plan (1) MARINO (acute kidney injury): (2) Chronic kidney disease, stage IV (severe): (3) Sacral decubitus ulcer, stage IV: (4) Anemia due to chronic kidney disease: (5) Metabolic acidosis: Plan: No emergent indication for dialysis. BP and volume status are acceptable. Electrolytes controlled. Advanced progressive CKD nearing renal replacement therapy requirements. Anticipate starting HD when needed. For metabolic acidosis associated with renal dysfunction, void NSS. 0.9% NaCl switched to 1/2 NS+NaHCO3 this AM. Oral NaHCO3 increased to 1300 BID. Minoxidil held. BP has been acceptable for slightly low. Epogen 69758 units x 1 dose now. Medications appropriate for kidney dysfunction. Monitor CK on daptomycin. Continue calcitriol as Rx. Corrected calcium 9.9 acceptable. Hold daily D3 supplement. Admission and Anticipated Discharge Date Admission Date: July 13, 2021 Subjective Mr. Escobedo was seen and evaluated this AM s/p debridement in the OR. He tolerated the procedure well. No acute complaints at the time of my assessment. No fevers. Denies pain. Breathing comfortably. Notable weakness. Nephrology was contacted to revisit the patient during this admission due to progressive decline in kidney function. I reviewed the case and discussed the plan of care with Martha Alanis PA-C this AM. Review of Systems Review of Systems: All systems reviewed & are unremarkable except as noted in HPI & below Physical Exam Constitutional: well developed; no acute distress Eyes: no scleral abnormality and no corneal abnormality Neck: normal visual inspection and trachea midline Respiratory: normal respiratory effort Auscultation: lungs clear to auscultation bilaterally Cardiovascular: Rate/Rhythm: regular rate Heart Sounds: normal S1 and normal S2 Extremities: + edema Musculoskeletal: Extremities: no cyanosis and no clubbing Skin: normal turgor; no lesions Neurologic: Motor/Sensory: no tremor and no asterixis Psychiatric: Orientation: alert and oriented x 3 Results & Data ([facility]) Vital Signs (Past 12 Hours) Vital Signs Temp Pulse Pulse Pulse Resp BP Pulse Ox 07/25/21 09:59 83 16 111/68 97 07/25/21 09:10 36.5 C 70 15 116/75 96 07/25/21 09:00 78 14 135/66 96 07/25/21 08:50 78 14 131/78 99 07/25/21 08:42 36.3 C L 77 18 136/85 99 07/25/21 06:52 36.9 C 89 20 118/82 97 07/25/21 03:13 36.8 C 80 20 152/77 H 98 07/25/21 00:35 77 Laboratory Results Laboratory Results - last 24 hr 07/23/21 07/25/21 07/25/21 07:20 05:54 05:54 WBC 11.37 H RBC 3.24 L Hgb 9.7 L Hct 29.8 L MCV 92.0 MCH 29.9 MCHC 32.6 RDW Std Deviation 52.7 H RDW Coeff of Hector 15.8 H Plt Count 319 MPV 7.9 Immature Gran % (Auto) 0.4 Neut % (Auto) 86.7 Lymph % (Auto) 5.1 Beaver % (Auto) 6.3 Eos % (Auto) 1.3 Baso % (Auto) 0.2 Neut # (Auto) 9.86 H Lymph # (Auto) 0.58 L Beaver # (Auto) 0.72 H Eos # (Auto) 0.15 Baso # (Auto) 0.02 Immature Gran # (Auto) 0.04 H Sodium 136 Potassium 3.9 Chloride 111 H Carbon Dioxide 15 L Anion Gap 10.0 BUN 82 H Creatinine 4.34 H Est Cr Clr Drug Dosing 18.4 Est GFR ( Amer) 14.4 Est GFR (Non-Af Amer) 12.4 BUN/Creatinine Ratio 18.9 Glucose 104 H Calcium 8.5 Total Bilirubin 0.6 AST 51 H ALT 71 Alkaline Phosphatase 160 H Total Protein 6.1 L Albumin 2.2 L Globulin 3.9 Albumin/Globulin Ratio 0.6 L Blood Type O Positive Antibody Screen NEGATIVE Crossmatch See Detail PG Care Time/CCT Total # of Minutes Spent Total Time Spent with Patient: Total time spent is greater than 50% in coordination of care (as documented) at patient's floor/unit and/or counseling patient: Coding Level of Care Code 29016 Subseq Hosp Care Lvl 3 Diagnoses MARINO (acute kidney injury) N17.9 Chronic kidney disease, stage IV (severe) N18.4 Sacral decubitus ulcer, stage IV L89.154 Anemia due to chronic kidney disease N18.9; D63.1 Metabolic acidosis E87.2
[2021-07-25] MEDS ORDERED: EPOETIN ALFA 10,000 UNITS/ML VIAL SQ ONE (11:30)
[2021-07-25] MEDS: SODIUM BICARBONATE 8.4% 75 MEQ in SODIUM CHLORIDE 0.45 % 1,000 ML IV SCH (11:44)
--- NOTE | 2021-07-25 12:09 | Hospitalist Progress Note ---
Date of Service July 25, 2021 Assessment & Plan (1) Sepsis: Plan: Patient with increased lethargy, hallucinations, now manifesting fevers with findings of leukocytosis, tachycardia, and hypotension - Source is sacral decub --> Patient requires broad spectrum antibiotic coverage specifically targeting anaerobes and gram negatives as well as MRSA - will start on Zosyn w/ adjustment for renal function as well as Daptomycin, pharmacy to dose - Aggressive IVF hydration initiated with LR but has since been changed to maintenance NSS - Hold Norvasc due to marginal BP - Went to OR 07/23 and back again 07/25 due to bone involvement - Wound and blood cultures growing same bacteria -- continue current abx reigmen until data is finalized - Repeat lactate ordered and was normal - Maintain PCU level of care (2) Sacral decubitus ulcer, stage IV: Plan: Status post debridement x 3 (most recent 07/25 excisional debridement down to the sacrum completed by Dr. Myers) - Follows with wound care center - Continue local wound care as outlined by GS and rattle leak and squeak repairer - Will attempt to get a specialized mattress to help alternate pressure points while pt is in bed - Wound growing E. coli which is pansensitive; however, SAVANNAH to Zosyn is not ideal at 16, would favor transitioning to a cephalosporin but will reach out to ID with their thoughts (3) Osteomyelitis of sacrum: Plan: - Plan as per #1 and 2 - Await culture data to guide antibiotic therapy - Per UTD, will require at least 6 weeks of IV antibiotic therapy after last de bridement - Can consider ID consult while inpatient to determine if that is an acceptable duration and optum abx choice ?Rocephin-would be ideal since it's once per day - Will need PICC line insertion for senior treasury consultant abx (4) Bacteremia: Plan: - See plan 1-3 - One blood culture + for bacteroides fragilis, currently on Zosyn, will repeat blood cultures 12/30 AM to ensure they are clear prior to PICC line insertion (5) UTI (urinary tract infection) due to Enterococcus: Plan: - Urine culture confirmed enterococcus faecalis, see above - Covered by Daptomycin (6) Ambulatory dysfunction: Plan: 2 different processesbiomechanical pain in the region of his piriformis, as well as lumbar radiculopathy that seems to fit with his L1 problem. - Pain control, OMT, PT/OT eval and treatdue to fall risk and only his able to support him at home, they both prefer to try skilled with rehab emphasis as his disposition from the hospital - Continue oral analgesics. Lidoderm patch ordered to be placed across the lumbar sacral region. Fentanyl patch discontinued on 07/21 - Case management on board -- ?[facility] or [facility] may have beds this week but do not anticipate pt will be ready this week (7) Lumbar spinal stenosis: Plan: - Appreciate pain management input for pain control, not a surgical candidate at this time due to his sacral ulcer. - Pain control seems to be doing better overall, and really his only persistent pain is that L1/2 radiculopathy, but even that seems better than before. - Continue PT/OT - Still awaiting placement (SNF/rehab emphasis) given that he is too weak to be safe at home at this time. (8) MARINO (acute kidney injury): Plan: - Likely was a bit dry on admissionnot eating and drinking as well as he normally does, but still taking his Lasix. - Continue to hold Lasix and follow periodically, creatinine appears to be at a relatively steady state in the low 4 range - no acute indications for emergent dialysis (gap closed, no hyperkalemia) although overall appears to be trending in that direction based on his labs and nephrology input - Other electrolytes remained stable. Patient continues to have urine output. - I discussed case with Dr. Paul today, advised changing fluids, increasing Sodi um bicarb, and stopping Minoxidil (9) Chronic kidney disease, stage IV (severe): Plan: As above - Renally dose medications when appropriate - Avoid nephrotoxins - Hold home Lasix 40 mg daily for acute kidney injury as above - Pt is heading to [facility] - May need to consider placement of a AV fistula now with anticipation of [facility] in the near future (10) Anemia due to chronic kidney disease: Plan: Acute on chronic anemia - Hemoglobin lower than previousalthough still likely overall relates to CKD - It does seem that he receives darbepoetin monthly with nephrology - IV iron ordered by nephrology days ago but not placed on oral daily supplementation - started oral FeSO4 supplementation - hgb 7.8 this AM despite 2 units of PRBCs yesterday, given another 2 units 07/24, hgb today 9.7 - Epogen dose ordered by nephrology (11) Neurogenic bowel: Plan: - Does not follow specific bowel regimen but does move his bowels every 3 to 4 days - MiraLAX as needed (12) Sleep apnea: Plan: - Patient reports he is tolerating his CPAP. It is noted to be at bedside. Patient specifically questioned about facial hair. He states that he gets a good seal. (13) Vitamin D deficiency, unspecified: Plan: - Continue vitamin D replacement (14) Neurogenic bladder: Plan: - Continue self cath as tolerated (15) Anxiety: Plan: - Continue duloxetine 30 mg daily - Continue alprazolam as needed (16) Atrial fibrillation: Plan: - Rate controlled - On senior treasury consultant AC - Resume Eliquis 12/30 PM - Continue Toprol XL 25mg daily (dose reduced from 50mg) (17) Abdominal aortic aneurysm: Plan: With a history of such - Follow-up with Dr. Marroquin (18) Hypertension: Plan: - Blood pressure is reasonable. Continue to follow - Does have some LE edema, unsure if this is chronic for him but he is on Norvasc which could be contributing to this which has been on hold - Stopped Minoxidil and Norvasc (both of which have been on hold) (19) Hyperlipidemia: Plan: - Continue statin (20) Somatic dysfunction of pelvic region: Plan: - OMT as above Plan: DVT prophylaxis-Eliquis on hold for surgery. Disposition-continue PCU, anticipate may be able to de-escalate back to med/surg tomorrow Admission and Anticipated Discharge Date Admission Date: July 13, 2021 Subjective Mr. Escobedo was seen on daily rounds this morning just after returning from the OR. He is s/p debridement of his stage IV sacral decub down to the bone. He overall did well, he currently is without complaints. He denies chest pain, dyspnea, n/v/d, f/c, headache, or gu symptoms. He is just asking for something to drink. Review of Systems Review of Systems: CONSTITUTIONAL: +generalized weakness. Denies weight loss/gain, fever and chills, fatigue, malaise. HEENT: Denies changes in vision and hearing. RESPIRATORY: Denies SOB, cough, wheezing. CV: Denies palpitations, CP, lower extremity edema, orthopnea, PND. GI: Denies abdominal pain, nausea, vomiting and diarrhea. : Denies dysuria and urinary frequency, urgency, hesitancy. MUSCULOSKELETAL: Denies myalgia and joint pain. SKIN: +sacral wound. Denies rash and pruritus. NEUROLOGICAL: Denies headache, syncope, focal weakness, numbness, tingling. PSYCHIATRIC: Denies recent changes in mood. Denies anxiety and depression. Physical Exam Physical Exam: GENERAL: 75 elderly WM, WD/WN. AAOx3. NAD. LUNGS: Clear to auscultation bilaterally. No accessory muscle use. No W/R/R. CARDIOVASCULAR: Irregular rate w/ CVR, 2/6 IVA. No gallops or rubs. ABDOMEN: Soft, NT, ND. Normal BS x 4 quad. EXTREMITIES: Trace edema in RLE and +1 pitting edema in LLE. Peripheral pulses +2/4. NEUROLOGIC: No focal neuro deficits. SKIN: Stage 4 sacral decub--dressing in place. Results & Data Results & Data ([facility]) Vital Signs (Past 12 Hours) Vital Signs Temp Pulse Pulse Pulse Resp BP Pulse Ox 07/25/21 11:28 36.6 C 100 H 20 102/61 90 07/25/21 09:59 83 16 111/68 97 07/25/21 09:10 36.5 C 70 15 116/75 96 07/25/21 09:00 78 14 135/66 96 07/25/21 08:50 78 14 131/78 99 07/25/21 08:42 36.3 C L 77 18 136/85 99 07/25/21 06:52 36.9 C 89 20 118/82 97 07/25/21 03:13 36.8 C 80 20 152/77 H 98 07/25/21 00:35 77 Laboratory Results 07/25/21 05:54 07/25/21 05:54 Spec: [id number] Collected: 07/22/21 Received: 07/22/[address]: Helen Maguire MD Copy To: Angela Martin MD Source: Blood OV Order: Ordered: Blood Culture Comments: Comment Default is separate sites, same time Blood culture drawn venously from Left Arm. Blood culture drawn venously from Left Arm. Procedure Result Verified Site Blood Culture Aerobic Preliminary 07/24/21 No growth in Aerobic bottle after 48 hours. Blood Culture Anaerobic Preliminary 07/25/21-1355 Organism 1 Bacteroides fragilis Sens No Sensitivities to Follow Procedure Result Verified Site Gram Stain Final 07/23/21-1033 Gram Stain Result Moderate WBCs Seen Many Gram Positive Cocci Moderate Gram Positive Bacilli Aero/Joanne Cult Preliminary 07/25/21-1342 Organism 1 Escherichia coli Quantity Moderate Sens Sensitivities to Follow +MixWound Plus Low Counts of Probable Skin Lennie Organism 2 Alpha strep. not enterococcus Quantity Moderate Sens No Sensitivities to Follow E coli RX M.I.C. --- --------- Amox/Clav S <=8/4 Ampicillin S <=8 Amp/Sul S <=8/4 Cefazolin S <=2 Cefepime S <=2 Ceftriaxone S <=1 Ciprofloxacin S <=0.25 Ertapenem S <=0.5 Gentamicin S <=4 Levofloxacin S <=0.5 Meropenem S <=1 Tobramycin S <=4 Trimeth/Sulfa S <=2/38 Pip/Tazo S <=16 S = SENSITIVE I = INTERMEDIATE R = RESISTANT PG Care Time/CCT Total # of Minutes Spent Total Time Spent with Patient: Total time spent is greater than 50% in coordination of care (as documented) at patient's floor/unit and/or counseling patient: Coding Level of Care Code 45452 Subseq Hosp Care Lv 3 Diagnoses Sepsis A41.9 Sacral decubitus ulcer, stage IV L89.154 Osteomyelitis of sacrum M46.28 Bacteremia R78.81 UTI (urinary tract infection) due to Enterococcus N39.0; B95.2 Ambulatory dysfunction R26.2 Lumbar spinal stenosis M48.061 MARINO (acute kidney injury) N17.9 Chronic kidney disease, stage IV (severe) N18.4 Anemia due to chronic kidney disease N18.9; D63.1 Neurogenic bowel K59.2 Sleep apnea G47.30 Vitamin D deficiency, unspecified E55.9 Neurogenic bladder N31.9 Anxiety F41.9 Atrial fibrillation I48.2 Atrial fibrillation type: permanent Abdominal aortic aneurysm I71.4 Presence of rupture: without rupture Hypertension I10 Hypertension type: essential hypertension Hyperlipidemia E78.5 Somatic dysfunction of pelvic region M99.05 (1) Abdominal aortic aneurysm Presence of rupture: without rupture Qualified Code(s): I71.4 - Abdominal aortic aneurysm, without rupture (2) Atrial fibrillation Atrial fibrillation type: permanent Qualified Code(s): I48.2 - Chronic atrial fibrillation (3) Hypertension Hypertension type: essential hypertension Qualified Code(s): I10 - Essential (primary) hypertension
--- NOTE | 2021-07-25 14:53 | Anesthesiology Progress Note ---
Date of Service July 25, 2021 Anesthesia Post Procedure Vital Signs Vital Signs: Temp Pulse Pulse Pulse Resp BP BP 07/25/21 11:28 36.6 C 100 H 20 102/61 07/25/21 09:59 83 16 111/68 07/25/21 09:10 36.5 C 70 15 116/75 07/25/21 09:00 78 14 135/66 07/25/21 08:50 78 14 131/78 07/25/21 08:42 36.3 C L 77 18 136/85 07/25/21 06:52 36.9 C 89 20 118/82 07/25/21 03:13 36.8 C 80 20 152/77 H 07/25/21 00:35 77 07/24/21 22:09 36.5 C 82 22 130/90 07/24/21 21:26 36.5 C 70 125/90 07/24/21 20:26 36.5 C 71 123/80 07/24/21 19:26 36.3 C L 79 123/84 07/24/21 18:56 36.5 C 82 123/80 07/24/21 18:41 36.4 C L 98 H 18 116/76 07/24/21 18:22 36.4 C L 103 H 128/77 07/24/21 18:18 36.4 C L 68 18 117/72 07/24/21 17:18 36.4 C L 82 18 127/73 07/24/21 16:18 84 110/69 07/24/21 15:48 87 115/53 L 07/24/21 15:33 36.5 C 78 18 106/65 07/24/21 15:13 36.4 C L 86 18 94/54 L 07/24/21 15:06 36.4 C L 78 20 94/54 L Pulse Ox 07/25/21 11:28 90 07/25/21 09:59 97 07/25/21 09:10 96 07/25/21 09:00 96 07/25/21 08:50 99 07/25/21 08:42 99 07/25/21 06:52 97 07/25/21 03:13 98 07/25/21 00:35 07/24/21 22:09 89 L 07/24/21 21:26 89 L 07/24/21 20:26 97 07/24/21 19:26 97 07/24/21 18:56 97 07/24/21 18:41 95 07/24/21 18:22 07/24/21 18:18 94 07/24/21 17:18 07/24/21 16:18 97 07/24/21 15:48 97 07/24/21 15:33 98 07/24/21 15:13 97 07/24/21 15:06 98 Pain Intensity Hip: Pain Intensity: 4 Left Leg: Pain Intensity: 5 Sacrum: Pain Intensity: 5 Bilateral Leg: Pain Intensity: 3 Transfer of Care Handoff Completed per policy Notes Mental Status: alert / awake / arousable and participated in evaluation Patient Amnestic to Procedure: Yes Nausea / Vomiting: adequately controlled Pain: adequately controlled Airway Patency, RR, SpO2: stable & adequate BP & HR: stable & adequate Hydration State: stable & adequate Anesthetic Complications: no major complications apparent and Pt Satisfied with anesthetic care
[2021-07-25] MEDS: GABAPENTIN 300 MG CAP PO SCH (21:03)
[2021-07-26] MEDS: PIPERACILLIN/TAZOBACTAM 3.375 GM in DEXTROSE 5% 100 ML IV SCH (05:19)
[2021-07-26] MEDS: SODIUM BICARBONATE 8.4% 75 MEQ in SODIUM CHLORIDE 0.45 % 1,000 ML IV SCH ×2 (05:19→19:08)
[2021-07-26 06:42] LABS: Basophils # (auto) 0.04 K/uL (0-0.2); Basophils % (auto) 0.5 %; Eosinophils % (auto) 3.8 %; Hematocrit (blood only) 30.3 % (42-52); Hemoglobin 9.9 g/dL (14.0-18.0); Immature Granulocytes # (auto) 0.02 K/uL (0.00-0.02); Immature Granulocytes % (auto) 0.3 %; Lymphocytes # (auto) 0.85 K/uL (1.2-3.4); Lymphocytes % (auto) 10.8 %; Mean Corpuscular Hemoglobin 30.1 pg (25-34); Mean Corpuscular Hgb Conc 32.7 g/dL (32-36); Mean Corpuscular Volume 92.1 fL (80-100); Monocytes # (auto) 0.32 K/uL (0.11-0.59); Monocytes % (auto) 4.1 %; Neutrophils # (auto) 6.37 K/uL (1.4-6.5); Neutrophils % (auto) 80.5 %; Platelet Count 323 K/uL (130-400); RDW Coefficient of Variation 15.9 % (11.5-14.5); RDW Standard Deviation 53.2 fL (36.4-46.3); Red Blood Count 3.29 M/uL (4.7-6.1)
[2021-07-26 07:08] LABS: Calcium 8.2 mg/dl (8.5-10.1); Creatinine Clr Calc Pharmacy 18.3 ml/min; Est GFR (African American) 14.1 ml/min; Est GFR (Non-African American) 12.2 ml/min; Magnesium 2.6 mg/dl (1.8-2.4); Potassium 4.1 mmol/L (3.5-5.1)
[2021-07-26] MEDS: DULoxetine HCL 30 MG CAP PO SCH (07:32)
[2021-07-26] MEDS: CALCITRIOL 0.25 MCG CAPSULE PO SCH (07:33)
[2021-07-26] MEDS: FERROUS SULFATE 325 MG TAB PO SCH ×2 (07:33→16:45)
[2021-07-26] MEDS: METOPROLOL SUCC 25MG EXT REL TAB PO SCH (07:34)
[2021-07-26] MEDS: METHENAMINE HIPPURATE 1 GM TAB PO SCH (07:34)
[2021-07-26] MEDS: MULTIVITAMIN TAB PO SCH (07:35)
[2021-07-26] MEDS: SODIUM BICARBONATE 650 MG TAB PO SCH ×2 (07:37→20:23)
[2021-07-26] MEDS: LIDOCAINE 5% 1 PATCH TD SCH (07:37)
--- NOTE | 2021-07-26 08:58 | Surgery Progress Note ---
Date of Service July 26, 2021 Assessment & Plan (1) Osteomyelitis of sacrum: Plan: POD#1 second excisional debridement of sacral wound, POD#3 excisional debridement of sacral wound WBC 7.9, afebrile. Hb.9 Wound currently packed with dakins wet-dry kerlex. Wound care consulted for further wound care & dressing change recommendations....likely prefer to hold off on vac for now but will defer to their expertise for dressing of choice Eliquis okay to be resumed this evening Admission and Anticipated Discharge Date Admission Date: July 13, 2021 Supervising Physician Co-Signing Physician Notes I personally saw and evaluated the patient with Alicia Barajas PA-C and agree with the assessment and plan. 75-year-old male with chronic stage IV sacral decubitus ulcer status post debridement x2 Overall the wound looked improved during the second operative debridement He does have sacral vertebra present at the base of the wound We will start wet-to-dry Dakin's dressing twice daily for the next few days and see how the wound responds No plans for any further operative debridement at this time He can resume his Eliquis tonight We will reevaluate the wound Friday with wound care nursing present If he is stable to be discharged over the weekend he is certainly stable from a surgical standpoint to be discharged and he can follow-up in the wound care clinic the following week Subjective Patient says other than some congestion he is feeling okay. He says sacral dressing is intact from yesterday. Says the nurses have been trying to assist him with offloading the wound and he got a new bed. Physical Exam Physical Exam: awake/alert Results & Data ([facility]) Vital Signs (Past 12 Hours) Vital Signs Temp Pulse Pulse Pulse Resp BP Pulse Ox 07/26/21 08:00 66 07/26/21 06:47 36.7 C 62 20 125/69 97 07/26/21 05:12 36.8 C 85 20 120/76 95 07/25/21 23:57 36.8 C 87 20 125/66 95 PG Care Time/CCT Total # of Minutes Spent Total Time Spent with Patient: Total time spent is greater than 50% in coordination of care (as documented) at patient's floor/unit and/or counseling patient: Coding Level of Care Code None Diagnoses Osteomyelitis of sacrum M46.28
[2021-07-26] MEDS ORDERED: APIXABAN 2.5 MG TAB PO SCH (09:00)
--- NOTE | 2021-07-26 09:47 | Hospitalist Progress Note ---
Date of Service July 26, 2021 Assessment & Plan (1) Sacral decubitus ulcer, stage IV: Plan: Status post debridement x 3 (most recent 07/25 excisional debridement down to the sacrum completed by Dr. Myers) - Continue local wound care as outlined by GS and contracting officer - Will attempt to get a specialized mattress to help alternate pressure points while pt is in bed - Wound growing E. coli which is pansensitive; however, SAVANNAH to Zosyn is not ideal at 16, would favor transitioning to a cephalosporin but will reach out to ID - Discussed with ID, Dr. Moss, agrees with Rocephin and recommends Flagyl as well. Will d/c Zosyn and start Flagyl 500mg BID this evening and Rocephin 2g IV daily to start tomorrow AM. (2) Osteomyelitis of sacrum: Plan: - Plan as per #1 - Per UTD, will require at least 6 weeks of IV antibiotic therapy after last debridement - ID consulted to determine if that is an acceptable duration and optum abx choice ?Rocephin-would be ideal since it's once per day--appreciate recommendations - Will need PICC line insertion for terminal block assembler abx - Follow up blood cultures ordered today to ensure that they are clear prior to picc line insertion - Change IV abx as above (d/c Zosyn and start Rocephin and Flagyl) -- agreed w/ duration of 6 weeks (3) Bacteremia: Plan: - See plan 1,2 - Repeat blood cultures ordered 07/26, pending (4) UTI (urinary tract infection) due to Enterococcus: Plan: - Urine culture confirmed enterococcus faecalis, see above - Covered by Daptomycin which was started 07/22, got a total of 4 days of therapy covered by Dapto - Will d/c Daptomycin and start on Amoxicillin 500mg BID (start 07/26 evening) x 3 more days for total of 7 days (5) Sepsis: Plan: - RESOLVED (6) Ambulatory dysfunction: Plan: 2 different processesbiomechanical pain in the region of his piriformis, as well as lumbar radiculopathy that seems to fit with his L1 problem. - Pain control, OMT, PT/OT eval and treatdue to fall risk and only his able to support him at home, they both prefer to try skilled with rehab emphasis as his disposition from the hospital - Continue oral analgesics. Lidoderm patch ordered to be placed across the lumbar sacral region. Fentanyl patch discontinued on 07/21 - Case management on board -- ?[facility] or [facility] may have beds this week but do not anticipate pt will be ready this week (7) Lumbar spinal stenosis: Plan: - Appreciate pain management input for pain control, not a surgical candidate at this time due to his sacral ulcer. - Pain control seems to be doing better overall, and really his only persistent pain is that L1/2 radiculopathy, but even that seems better than before. - Continue PT/OT - Still awaiting placement (SNF/rehab emphasis) given that he is too weak to be safe at home at this time. (8) MARINO (acute kidney injury): Plan: - Likely was a bit dry on admissionnot eating and drinking as well as he normally does, but still taking his Lasix. - Continue to hold Lasix and follow periodically, creatinine appears to be at a relatively steady state in the low 4 range - no acute indications for emergent dialysis (gap closed, no hyperkalemia) although overall appears to be trending in that direction based on his labs and nephrology input - Other electrolytes remained stable. Patient continues to have urine output. - Nephrology following, fluids changed and NaHCO3 increased (9) Chronic kidney disease, stage IV (severe): Plan: As above - Renally dose medications when appropriate - Avoid nephrotoxins - Hold home Lasix 40 mg daily for acute kidney injury as above - Pt is heading to [employer] - May need to consider placement of a AV fistula now with anticipation of TRAFFIC S[employer] in the near future (10) Anemia due to chronic kidney disease: Plan: Acute on chronic anemia - Hemoglobin lower than previousalthough still likely overall relates to CKD - It does seem that he receives darbepoetin monthly with nephrology - IV iron ordered by nephrology days ago but not placed on oral daily supplementation - started oral FeSO4 supplementation - Transfused 2 units of PRBCs on 07/23, given another 2 units 07/24, hgb stable since - Epogen dose ordered by nephrology on 07/25 (11) Neurogenic bowel: Plan: - Does not follow specific bowel regimen but does move his bowels every 3 to 4 days - MiraLAX as needed (12) Sleep apnea: Plan: - Patient reports he is tolerating his CPAP. It is noted to be at bedside. Patient specifically questioned about facial hair. He states that he gets a good seal. (13) Vitamin D deficiency, unspecified: Plan: - Continue vitamin D replacement (14) Neurogenic bladder: Plan: - Continue self cath as tolerated (15) Anxiety: Plan: - Continue duloxetine 30 mg daily - Continue alprazolam as needed (16) Atrial fibrillation: Plan: - Rate controlled - On terminal block assembler AC - Resume Eliquis 07/26 PM - Continue Toprol XL 25mg daily (dose reduced from 50mg) (17) Abdominal aortic aneurysm: Plan: With a history of such - Follow-up with Dr. Marroquin (18) Hypertension: Plan: - Blood pressure is reasonable. Continue to follow - Stopped Minoxidil and Norvasc (both of which have been on hold and BP has been normal) (19) Hyperlipidemia: Plan: - Continue statin (20) Somatic dysfunction of pelvic region: Plan: - OMT as above Plan: Interventions as above, cap fluids Repeat labs in AM DVT prophylaxis-Resume Eliquis tonight Disposition-transfer to med/surg Admission and Anticipated Discharge Date Admission Date: July 13, 2021 Subjective Patient seen on daily rounds this morning. Pt is resting comfortably in bed. He reports that he has some post nasal drip and congestion but otherwise no complaints. He continues to have shooting pain down his left leg but it is tolerable. Pain at sacral decub site is well controlled. Denies chest pain, dyspnea, n/v/d, f/c, headache. Review of Systems Review of Systems: CONSTITUTIONAL: +generalized weakness. Denies weight loss/gain, fever and chills, fatigue, malaise. HEENT: Denies changes in vision and hearing. RESPIRATORY: +congestion. Denies SOB, cough, wheezing. CV: Denies palpitations, CP, lower extremity edema, orthopnea, PND. GI: Denies abdominal pain, nausea, vomiting and diarrhea. : Denies dysuria and urinary frequency, urgency, hesitancy. MUSCULOSKELETAL: +Left leg pain. Denies myalgia and joint pain. SKIN: +sacral wound. Denies rash and pruritus. NEUROLOGICAL: Denies headache, syncope, focal weakness, numbness, tingling. PSYCHIATRIC: Denies recent changes in mood. Denies anxiety and depression. Physical Exam Physical Exam: GENERAL: 75 elderly WM, WD/WN. AAOx3. NAD. LUNGS: Clear to auscultation bilaterally. No accessory muscle use. No W/R/R. CARDIOVASCULAR: Irregular rate w/ CVR, 2/6 IVA. No gallops or rubs. ABDOMEN: Soft, NT, ND. Normal BS x 4 quad. EXTREMITIES: 2+ pitting edema bilateral LE. Peripheral pulses +2/4. NEUROLOGIC: No focal neuro deficits. SKIN: Stage 4 sacral decub--dressing in place. Results & Data Results & Data ([facility]) Vital Signs (Past 12 Hours) Vital Signs Temp Pulse Pulse Pulse Resp BP Pulse Ox 07/26/21 08:00 66 07/26/21 06:47 36.7 C 62 20 125/69 97 07/26/21 05:12 36.8 C 85 20 120/76 95 07/25/21 23:57 36.8 C 87 20 125/66 95 Laboratory Results 07/26/21 06:23 07/26/21 06:23 PG Care Time/CCT Total # of Minutes Spent Total Time Spent with Patient: Total time spent is greater than 50% in coordination of care (as documented) at patient's floor/unit and/or counseling patient: Coding Level of Care Code 86427 Subseq Hosp Care Lvl 3 Diagnoses Sepsis A41.9 Sacral decubitus ulcer, stage IV L89.154 Osteomyelitis of sacrum M46.28 Bacteremia R78.81 UTI (urinary tract infection) due to Enterococcus N39.0; B95.2 Ambulatory dysfunction R26.2 Lumbar spinal stenosis M48.061 MARINO (acute kidney injury) N17.9 Chronic kidney disease, stage IV (severe) N18.4 Anemia due to chronic kidney disease N18.9; D63.1 Neurogenic bowel K59.2 Sleep apnea G47.30 Vitamin D deficiency, unspecified E55.9 Neurogenic bladder N31.9 Anxiety F41.9 Atrial fibrillation I48.2 Atrial fibrillation type: permanent Abdominal aortic aneurysm I71.4 Presence of rupture: without rupture Hypertension I10 Hypertension type: essential hypertension Hyperlipidemia E78.5 Somatic dysfunction of pelvic region M99.05 (1) Abdominal aortic aneurysm Presence of rupture: without rupture Qualified Code(s): I71.4 - Abdominal aortic aneurysm, without rupture (2) Atrial fibrillation Atrial fibrillation type: permanent Qualified Code(s): I48.2 - Chronic atrial fibrillation (3) Hypertension Hypertension type: essential hypertension Qualified Code(s): I10 - Essential (primary) hypertension
--- NOTE | 2021-07-26 09:57 | Nephrology Progress Note ---
Date of Service July 26, 2021 Assessment & Plan (1) MARINO (acute kidney injury): Plan: Creatinine slightly improved this AM. Volume status acceptable. Increased TBW with dependent edema. If PO intake adequate, IVF can be stopped later today after current bag complete. Electrolytes acceptable. Acidosis improving with replacement. No emergent indication for dialysis. (2) Chronic kidney disease, stage IV (severe): Plan: Baseline creatinine has been ~4 mg/dL. 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 [place] is planning to start HD when indicated. Goals of care have been reviewed. Medications appropriately dosed for kidney dysfunction. Continue calcitriol as Rx. (3) Sacral decubitus ulcer, stage IV: Plan: POD#1 s/p debridement. Remains on Zosyn and daptomycin. Monitor CK weekly on dapto. (4) Anemia due to chronic kidney disease: Plan: PRBC transfusion support provided 07/23. Epogen [id number] units provided 07/25. (5) Metabolic acidosis: Plan: Continue oral NaHCO3 1300 BID. Admission and Anticipated Discharge Date Admission Date: July 13, 2021 Subjective No acute events overnight. Weakness/debility remain a concern. Continues to have some radicular pain into the leg but reasonably controlled. Appetite improving. Review of Systems Review of Systems: All systems reviewed & are unremarkable except as noted in HPI & below Physical Exam Constitutional: well developed; no acute distress Eyes: no scleral abnormality and no corneal abnormality Neck: normal visual inspection and trachea midline Respiratory: normal respiratory effort Auscultation: lungs clear to auscultation bilaterally Cardiovascular: Rate/Rhythm: regular rate Heart Sounds: normal S1 and normal S2 Extremities: + edema Musculoskeletal: Extremities: no cyanosis and no clubbing Skin: normal turgor; no lesions Neurologic: Motor/Sensory: no tremor and no asterixis Psychiatric: Orientation: alert and oriented x 3 Results & Data ([facility]) Vital Signs (Past 12 Hours) Vital Signs Temp Pulse Pulse Pulse Resp BP Pulse Ox 07/26/21 08:00 66 07/26/21 06:47 36.7 C 62 20 125/69 97 07/26/21 05:12 36.8 C 85 20 120/76 95 07/25/21 23:57 36.8 C 87 20 125/66 95 Laboratory Results Laboratory Results - last 24 hr 07/26/21 07/26/21 06:23 06:23 WBC 7.90 RBC 3.29 L Hgb 9.9 L Hct 30.3 L MCV 92.1 MCH 30.1 MCHC 32.7 RDW Std Deviation 53.2 H RDW Coeff of Hector 15.9 H Plt Count 323 MPV 8.0 Immature Gran % (Auto) 0.3 Neut % (Auto) 80.5 Lymph % (Auto) 10.8 Irion % (Auto) 4.1 Eos % (Auto) 3.8 Baso % (Auto) 0.5 Neut # (Auto) 6.37 Lymph # (Auto) 0.85 L Irion # (Auto) 0.32 Eos # (Auto) 0.30 Baso # (Auto) 0.04 Immature Gran # (Auto) 0.02 Sodium 136 Potassium 4.1 Chloride 109 H Carbon Dioxide 18 L Anion Gap 9.0 BUN 80 H Creatinine 4.41 H Est Cr Clr Drug Dosing 18.3 Est GFR ( Amer) 14.1 Est GFR (Non-Af Amer) 12.2 BUN/Creatinine Ratio 18.0 Glucose 97 Calcium 8.2 L Magnesium 2.6 H PG Care Time/CCT Total # of Minutes Spent Total Time Spent with Patient: Total time spent is greater than 50% in coordination of care (as documented) at patient's floor/unit and/or counseling patient: Coding Level of Care Code 60445 Subseq Hosp Care Lvl 3 Diagnoses MARINO (acute kidney injury) N17.9 Chronic kidney disease, stage IV (severe) N18.4 Sacral decubitus ulcer, stage IV L89.154 Anemia due to chronic kidney disease N18.9; D63.1 Metabolic acidosis E87.2
[2021-07-26] MEDS: AMOXICILLIN 500 MG CAP PO SCH (20:22)
[2021-07-26] MEDS: metroNIDAZOLE 500 MG TAB PO SCH (20:22)
[2021-07-26] MEDS: APIXABAN 2.5 MG TAB PO SCH (20:23)
[2021-07-26] MEDS: GABAPENTIN 300 MG CAP PO SCH (20:23)
[2021-07-27 08:14] LABS: Basophils # (auto) 0.04 K/uL (0-0.2); Basophils % (auto) 0.4 %; Eosinophils # (auto) 0.36 K/uL (0-0.5); Eosinophils % (auto) 3.7 %; Hematocrit (blood only) 32.8 % (42-52); Hemoglobin 10.7 g/dL (14.0-18.0); Immature Granulocytes # (auto) 0.04 K/uL (0.00-0.02); Immature Granulocytes % (auto) 0.4 %; Lymphocytes # (auto) 0.72 K/uL (1.2-3.4); Lymphocytes % (auto) 7.4 %; Mean Corpuscular Hemoglobin 29.9 pg (25-34); Mean Corpuscular Hgb Conc 32.6 g/dL (32-36); Mean Corpuscular Volume 91.6 fL (80-100); Mean Platelet Volume 8.3 fL (7.4-10.4); Monocytes # (auto) 0.71 K/uL (0.11-0.59); Monocytes % (auto) 7.3 %; Neutrophils % (auto) 80.8 %; Platelet Count 334 K/uL (130-400); RDW Coefficient of Variation 15.6 % (11.5-14.5); Red Blood Count 3.58 M/uL (4.7-6.1); White Blood Count 9.67 K/uL (4.8-10.8)
[2021-07-27 08:30] LABS: BUN Creatinine Ratio 17.5 (10-20); Calcium 8.3 mg/dl (8.5-10.1); Est GFR (African American) 13.9 ml/min; Potassium 3.8 mmol/L (3.5-5.1)
[2021-07-27] MEDS: LIDOCAINE 5% 1 PATCH TD SCH (08:53)
[2021-07-27] MEDS: SODIUM BICARBONATE 650 MG TAB PO SCH ×2 (08:54→19:55)
[2021-07-27] MEDS: METHENAMINE HIPPURATE 1 GM TAB PO SCH (08:54)
[2021-07-27] MEDS: METOPROLOL SUCC 25MG EXT REL TAB PO SCH (08:54)
[2021-07-27] MEDS: APIXABAN 2.5 MG TAB PO SCH ×2 (08:55→19:54)
[2021-07-27] MEDS: CALCITRIOL 0.25 MCG CAPSULE PO SCH (08:55)
[2021-07-27] MEDS: metroNIDAZOLE 500 MG TAB PO SCH ×3 (08:55→19:53)
[2021-07-27] MEDS: DULoxetine HCL 30 MG CAP PO SCH (08:55)
[2021-07-27] MEDS: MULTIVITAMIN TAB PO SCH (08:56)
[2021-07-27] MEDS: FERROUS SULFATE 325 MG TAB PO SCH ×2 (08:56→17:50)
[2021-07-27] MEDS: AMOXICILLIN 500 MG CAP PO SCH ×2 (08:56→19:54)
[2021-07-27] MEDS: cefTRIAXone SODIUM 2,000 MG in DEXTROSE 5% 50 ML IV SCH (09:53)
--- NOTE | 2021-07-27 11:44 | Nephrology Progress Note ---
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 No CHF on exam. Electrolyte balance is acceptable. No acute indication for HD at this time * Poor dialysis candidate due to relative immobility and severe sacral decubitus ulcer. Discussed HD w/ patient today. He wishes to pursue dialysis if needed * Continue NaHCO3 therapy (2) Anemia due to chronic kidney disease: Plan: * PRBC transfusion support provided 07/23 * Epogen [id number] units provided 07/25 (3) Sacral decubitus ulcer, stage IV: Plan: * s/p debridement of sacral decubitus ulcer * 07/26 Surgical note: He does have sacral vertebra present at the base of the wound. We will reevaluate the wound Friday with wound care nursing present * Remains on IV Ceftriaxone therapy (4) Lumbar spinal stenosis: Plan: * 06/17 LS MRI revealed progressive stenosis * 07/26/21 PT evaluation: required max assist x1 for supine -->sit, able to sit up unsupported for short periods of time Admission and Anticipated Discharge Date Admission Date: July 13, 2021 Subjective Mr. Escobedo was seen & examined in his hospital room this morning. He denied fever, angina, dyspnea or uremic symptoms. He c/o weakness and LE pain when trying to arise from a supine position Review of Systems Constitutional: + weakness; no fever Eyes: no problem reported Ear, Nose, Mouth, Throat: no problem reported Respiratory: no cough and no dyspnea Cardiovascular: no chest pain, no palpitations and no edema Gastrointestinal: no abdominal pain, no nausea, no vomiting and no diarrhea/loose stools Genitourinary: no dysuria (performs CIC due to neurogenic bladder) Integumentary: no rash Neurologic: no confusion Physical Exam Constitutional: + frail appearing; not in distress Eyes: PERRL, conjunctivae normal, anicteric sclerae ENMT: external ear and nose normal, oropharynx normal Neck: trachea midline, no thyromegaly Respiratory: normal respiratory effort, lungs clear to auscultation Cardiovascular: Rate/Rhythm: regular rate and regular rhythm Heart Sounds: + murmur Extremities: + edema (1+ pretibial pitting edema) Gastrointestinal (Abdomen): normal bowel sounds, soft, nontender, no hepatosplenomegaly Neurologic: awake; not confused Psychiatric: A+Ox3, euthymic affect Results & Data ([facility]) Vital Signs (Past 12 Hours) Vital Signs Temp Pulse Resp BP Pulse Ox 07/27/21 07:07 36.6 C 75 20 149/87 H 95 Laboratory Results Laboratory Tests 07/25/21 07/27/21 07/27/21 05:54 07:37 07:37 WBC 9.67 Hgb 10.7 L Hct 32.8 L Plt Count 334 Sodium 138 Potassium 3.8 Chloride 111 H Carbon Dioxide 17 L BUN 78 H Creatinine 4.47 H Glucose 87 Albumin 2.2 L PG Care Time/CCT Total # of Minutes Spent Total Time Spent with Patient: Total time spent is greater than 50% in coordination of care (as documented) at patient's floor/unit and/or counseling patient: Coding Level of Care Code 12514 Subseq Hosp Care Lvl 3 Diagnoses Chronic kidney disease, stage IV (severe) N18.4 Sacral decubitus ulcer, stage IV L89.154 Anemia due to chronic kidney disease N18.9; D63.1 Lumbar spinal stenosis M48.061
[2021-07-27] MEDS: DAKIN'S SOLN 0.25% HALF STRENGTH 473ML BTL EXT SCH (14:44)
[2021-07-27] MEDS: LOPERAMIDE HCL 2 MG CAP PO PRN ×2 (14:47→22:42)
--- NOTE | 2021-07-27 15:27 | Hospitalist Progress Note ---
Date of Service July 27, 2021 Assessment & Plan (1) Sacral decubitus ulcer, stage IV: Plan: Status post debridement x 3 (most recent 07/25 excisional debridement down to the sacrum completed by Dr. Myers) - Continue local wound care as outlined by GS and psychology intern - Will attempt to get a specialized mattress to help alternate pressure points while pt is in bed - Wound growing E. coli which is pansensitive; now on Rocephin and Flagyl, plan for 6 weeks from last debridement - Discussed with ID, Dr. Moss, appreciate his input (2) Osteomyelitis of sacrum: Plan: - Plan as per #1 - Per UTD, will require at least 6 weeks of IV antibiotic therapy after last debridement which was 07/26 - Will need PICC line insertion for senior living abx - Follow up blood cultures ordered 07/26 to ensure that they are clear prior to picc line insertion - Change IV abx as above (d/c Zosyn and start Rocephin and Flagyl) -- agreed w/ duration of 6 weeks (3) Bacteremia: Plan: - See plan 1,2 - Repeat blood cultures ordered 07/26, pending (4) UTI (urinary tract infection) due to Enterococcus: Plan: - Urine culture confirmed enterococcus faecalis, see above - Covered by Daptomycin which was started 07/22, got a total of 4 days of therapy covered by Dapto - Will d/c Daptomycin and start on Amoxicillin 500mg BID (start 07/26 evening) x 2 more days for total of 7 days (5) Sepsis: Plan: - RESOLVED (6) Ambulatory dysfunction: Plan: 2 different processesbiomechanical pain in the region of his piriformis, as well as lumbar radiculopathy that seems to fit with his L1 problem. - Pain control, OMT, PT/OT eval and treatdue to fall risk and only his able to support him at home, they both prefer to try skilled with rehab emphasis as his disposition from the hospital - Continue oral analgesics. Lidoderm patch ordered to be placed across the lumbar sacral region. Fentanyl patch discontinued on 07/21 - Case management on board -- ?[facility] or [facility] may have beds this week but do not anticipate pt will be ready this week (7) Lumbar spinal stenosis: Plan: - Appreciate pain management input for pain control, not a surgical candidate at this time due to his sacral ulcer. - Pain control seems to be doing better overall, and really his only persistent pain is that L1/2 radiculopathy, but even that seems better than before. - Continue PT/OT - Still awaiting placement (SNF/rehab emphasis) given that he is too weak to be safe at home at this time. (8) MARINO (acute kidney injury): Plan: - Likely was a bit dry on admissionnot eating and drinking as well as he normally does, but still taking his Lasix. - Continue to hold Lasix and follow periodically, creatinine appears to be at a relatively steady state in the low 4 range, it is 4.4 today - Other electrolytes remained stable. Patient continues to have urine output. - Nephrology following (9) Chronic kidney disease, stage IV (severe): Plan: As above - Renally dose medications when appropriate - Avoid nephrotoxins - Hold home Lasix 40 mg daily for acute kidney injury as above - Pt is heading to [facility] - May need to consider placement of a AV fistula now with anticipation of [facility] in the near future (10) Anemia due to chronic kidney disease: Plan: Acute on chronic anemia - Hemoglobin lower than previousalthough still likely overall relates to CKD - It does seem that he receives darbepoetin monthly with nephrology - IV iron ordered by nephrology days ago but not placed on oral daily supplementation - started oral FeSO4 supplementation - Transfused 2 units of PRBCs on 07/23, given another 2 units 07/24, hgb stable since, it is 10.7 today - Epogen dose ordered by nephrology on 07/25 (11) Neurogenic bowel: Plan: - Does not follow specific bowel regimen but does move his bowels every 3 to 4 days - MiraLAX as needed (12) Sleep apnea: Plan: - Patient reports he is tolerating his CPAP. It is noted to be at bedside. Patient specifically questioned about facial hair. He states that he gets a good seal. (13) Vitamin D deficiency, unspecified: Plan: - Continue vitamin D replacement (14) Neurogenic bladder: Plan: - Continue self cath as tolerated (15) Anxiety: Plan: - Continue duloxetine 30 mg daily - Continue alprazolam as needed (16) Atrial fibrillation: Plan: - Rate controlled - On senior living AC - Resumed Eliquis 07/26 PM - Continue Toprol XL 25mg daily (dose reduced from 50mg) (17) Abdominal aortic aneurysm: Plan: With a history of such - Follow-up with Dr. Marroquin (18) Hypertension: Plan: - Blood pressure is reasonable. Continue to follow - Stopped Minoxidil and Norvasc (both of which have been on hold and BP has been normal) (19) Hyperlipidemia: Plan: - Continue statin Plan: Interventions as above, cap fluids Repeat labs in AM DVT prophylaxis-Resume [facility] Disposition-transfer to med/surg Admission and Anticipated Discharge Date Admission Date: July 13, 2021 Subjective patient doing okay today, main complaint is loose stools, he is afraid to eat pain is controlled, breathing is stable, no fever, no chest pain Cr is 4.4, Hb is 10.[address] Paul plan is for SNF for IV antibiotics and wound care Review of Systems Review of Systems: All systems reviewed & are unremarkable except as noted in Subjective Gastrointestinal: + diarrhea/loose stools Integumentary: + wounds (sacral decubitus ulcer) Physical Exam Physical Exam: General: well developed, well nourished, elderly male, no acute distress, comfortable Neck: supple, trachea midline, normal thyroid Lungs: clear to auscultation bilaterally, normal respiratory effort, no accessory muscle use, no distress Heart: regular S1 and S2, no murmur, peripheral pulses normal, capillary refill normal, no edema Abdomen: soft, NT, ND, + BS, no hepatomegaly, normal to percussion Extremities: normal in appearance, no cyanosis, no petechiae, strength is slightly diminished Neuro: awake, cooperative, moves all extremities, no focal motor deficits, CN II-XII intact, sensation in extremities intact, normal speech Skin: sacral wound dressed Psych: Awake, alert oriented x 3, euthymic affect Results & Data Results & Data ([facility]) Vital Signs (Past 12 Hours) Vital Signs Temp Pulse Resp BP Pulse Ox 07/27/21 07:07 36.6 C 75 20 149/87 H 95 Laboratory Results Laboratory Results - last 24 hr 07/27/21 07/27/21 07/27/21 07:37 07:37 13:08 WBC 9.67 RBC 3.58 L Hgb 10.7 L Hct 32.8 L MCV 91.6 MCH 29.9 MCHC 32.6 RDW Std Deviation 52.0 H RDW Coeff of Hector 15.6 H Plt Count 334 MPV 8.3 Immature Gran % (Auto) 0.4 Neut % (Auto) 80.8 Lymph % (Auto) 7.4 Baldwin % (Auto) 7.3 Eos % (Auto) 3.7 Baso % (Auto) 0.4 Neut # (Auto) 7.80 H Lymph # (Auto) 0.72 L Baldwin # (Auto) 0.71 H Eos # (Auto) 0.36 Baso # (Auto) 0.04 Immature Gran # (Auto) 0.04 H Sodium 138 Potassium 3.8 Chloride 111 H Carbon Dioxide 17 L Anion Gap 10.0 BUN 78 H Creatinine 4.47 H Est Cr Clr Drug Dosing 18.0 Est GFR ( Amer) 13.9 Est GFR (Non-Af Amer) 12.0 BUN/Creatinine Ratio 17.5 Glucose 87 Calcium 8.3 L Stl C. diff Tox B Gene Negative Cdiff Gene Medications Administered Current Inpatient Medications Acetaminophen (Acetaminophen 325 Mg Tab) 650 mg PO Q4H PRN PRN Reason: Pain or Fever Stop: 08/12/21 14:54 Last Admin: 07/22/21 09:54 Dose: 650 mg Documented by: Alprazolam (Alprazolam 0.25 Mg Tablet) 0.25 mg PO DAILY PRN PRN Reason: anxiety Stop: 08/12/21 14:54 Last Admin: 07/21/21 23:46 Dose: 0.25 mg Documented by: Amoxicillin (Amoxicillin 500 Mg Cap) 500 mg PO BID [facility]; Protocol Stop: 07/29/21 21:01 Last Admin: 07/27/21 08:56 Dose: 500 mg Documented by: Apixaban (Apixaban 2.5 Mg Tab) 2.5 mg PO BID [facility] Stop: 08/25/21 20:59 Last Admin: 07/27/21 08:55 Dose: 2.5 mg Documented by: Atorvastatin Calcium (Atorvastatin 20 Mg Tab) 20 mg PO QPM [facility] Stop: 08/12/21 20:59 Last Admin: 07/21/21 19:20 Dose: 20 mg Documented by: Calcitriol (Calcitriol 0.25 Mcg Capsule) 0.25 mcg PO QAM [facility] Stop: 08/13/21 08:59 Last Admin: 07/27/21 08:55 Dose: 0.25 mcg Documented by: Duloxetine HCl (Duloxetine Hcl 30 Mg Cap) 30 mg PO [facility] Stop: 08/13/21 08:59 Last Admin: 07/27/21 08:55 Dose: 30 mg Documented by: Ferrous Sulfate (Ferrous Sulfate 325 Mg Tab) 325 mg PO BIDM [facility] Stop: 08/22/21 16:59 Last Admin: 07/27/21 08:56 Dose: 325 mg Documented by: Gabapentin (Gabapentin 300 Mg Cap) 300 mg PO HS [facility] Stop: 08/12/21 20:59 Last Admin: 07/26/21 20:23 Dose: 300 mg Documented by: Ceftriaxone Sodium 2,000 mg/ (Dextrose) 70 mls @ 100 mls/hr IV DAILY [facility]; Protocol Stop: 09/07/21 08:59 Last Infusion: 07/27/21 10:35 Dose: Infused Documented by: Lidocaine (Lidocaine 5% 1 Patch) 1 patch TD [facility] Stop: 08/20/21 13:44 Last Admin: 07/27/21 08:53 Dose: 1 patch Documented by: Loperamide HCl (Loperamide Hcl 2 Mg Cap) 2 mg PO Q6 PRN PRN Reason: Diarrhea Stop: 08/26/21 14:38 Last Admin: 07/27/21 14:47 Dose: 2 mg Documented by: Methenamine Hippurate (Methenamine Hippurate 1 Gm Tab) 1 gm PO [facility] Stop: 08/13/21 08:59 Last Admin: 07/27/21 08:54 Dose: 1 gm Documented by: Metoprolol Succinate (Metoprolol Succ 25mg Ext Rel Tab) 25 mg PO [facility] Stop: 08/22/21 11:29 Last Admin: 07/27/21 08:54 Dose: 25 mg Documented by: Metronidazole (Metronidazole 500 Mg Tab) 500 mg PO TID [facility] Stop: 09/06/21 20:59 Last Admin: 07/27/21 14:44 Dose: 500 mg Documented by: Miscellaneous (Remove Lidoderm Patch) 1 ea N/A DAILY@2100 [facility] Stop: 08/20/21 20:59 Last Admin: 07/26/21 20:23 Dose: 1 ea Documented by: Multivitamins (Multivitamin Tab) 1 tab PO [facility] Stop: 08/13/21 08:59 Last Admin: 12/31/21 08:56 Dose: 1 tab Documented by: Ondansetron HCl (Ondansetron Inj 2 Mg/Ml 2 Ml Vial) 4 mg IV Q6H PRN PRN Reason: Nausea Stop: 08/12/21 14:54 Polyethylene Glycol (Polyethylene (Miralax) 17 Gm Pack) 17 gm PO DAILY PRN PRN Reason: Constipation Stop: 08/12/21 14:54 Sodium Bicarbonate (Sodium Bicarbonate 650 Mg Tab) 1,300 mg PO BID [facility] Stop: 08/24/21 20:59 Last Admin: 07/27/21 08:54 Dose: 1,300 mg Documented by: Sodium Hypochlorite (Dakin's Soln 0.25% Half Strength 473ml Btl) 1 appln EXT DAILY [facility] Stop: 08/26/21 08:59 Last Admin: 07/27/21 14:44 Dose: 1 appln Documented by: PG Care Time/CCT Total # of Minutes Spent Total Time Spent with Patient: Total time spent is greater than 50% in coordination of care (as documented) at patient's floor/unit and/or counseling patient: Coding Level of Care Code 70259 Subseq Hosp Care Lvl 2 Diagnoses Sacral decubitus ulcer, stage IV L89.154 Osteomyelitis of sacrum M46.28 Bacteremia R78.81 UTI (urinary tract infection) due to Enterococcus N39.0; B95.2 Sepsis A41.9 Ambulatory dysfunction R26.2 Lumbar spinal stenosis M48.061 MARINO (acute kidney injury) N17.9 Chronic kidney disease, stage IV (severe) N18.4 Anemia due to chronic kidney disease N18.9; D63.1 Neurogenic bowel K59.2 Sleep apnea G47.30 Vitamin D deficiency, unspecified E55.9 Neurogenic bladder N31.9 Anxiety F41.9 Atrial fibrillation I48.2 Atrial fibrillation type: permanent Abdominal aortic aneurysm I71.4 Presence of rupture: without rupture Hypertension I10 Hypertension type: essential hypertension Hyperlipidemia E78.5 (1) Abdominal aortic aneurysm Presence of rupture: without rupture Qualified Code(s): I71.4 - Abdominal aortic aneurysm, without rupture (2) Atrial fibrillation Atrial fibrillation type: permanent Qualified Code(s): I48.2 - Chronic atrial fibrillation (3) Hypertension Hypertension type: essential hypertension Qualified Code(s): I10 - Essential (primary) hypertension
[2021-07-27] MEDS: GABAPENTIN 300 MG CAP PO SCH (19:53)
[2021-07-27] MEDS: ALPRAZolam 0.25 MG TABLET PO PRN (22:42)
[2021-07-28 06:26] LABS: BUN Creatinine Ratio 16.5 (10-20); Calcium 8.6 mg/dl (8.5-10.1); Creatinine Clr Calc Pharmacy 18.8 ml/min; Est GFR (African American) 14.6 ml/min; Est GFR (Non-African American) 12.6 ml/min; Potassium 3.6 mmol/L (3.5-5.1)
[2021-07-28] MEDS: FERROUS SULFATE 325 MG TAB PO SCH ×2 (09:02→17:59)
[2021-07-28] MEDS: LIDOCAINE 5% 1 PATCH TD SCH (09:03)
[2021-07-28] MEDS: SODIUM BICARBONATE 650 MG TAB PO SCH ×2 (09:04→20:26)
[2021-07-28] MEDS: DULoxetine HCL 30 MG CAP PO SCH (09:05)
[2021-07-28] MEDS: metroNIDAZOLE 500 MG TAB PO SCH ×3 (09:05→20:26)
[2021-07-28] MEDS: MULTIVITAMIN TAB PO SCH (09:05)
[2021-07-28] MEDS: APIXABAN 2.5 MG TAB PO SCH ×2 (09:06→20:26)
[2021-07-28] MEDS: METOPROLOL SUCC 25MG EXT REL TAB PO SCH (09:06)
[2021-07-28] MEDS: CALCITRIOL 0.25 MCG CAPSULE PO SCH (09:06)
[2021-07-28] MEDS: cefTRIAXone SODIUM 2,000 MG in DEXTROSE 5% 50 ML IV SCH (09:07)
[2021-07-28] MEDS: AMOXICILLIN 500 MG CAP PO SCH ×2 (09:07→20:26)
[2021-07-28] MEDS: METHENAMINE HIPPURATE 1 GM TAB PO SCH (09:08)
[2021-07-28] MEDS: DAKIN'S SOLN 0.25% HALF STRENGTH 473ML BTL EXT SCH (09:08)
--- NOTE | 2021-07-28 09:47 | Nephrology Progress Note ---
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 No CHF on exam. Electrolyte balance is acceptable. No acute indication for HD at this time * Poor dialysis candidate due to relative immobility and severe sacral decubitus ulcer. Discussed HD w/ patient today. He wishes to pursue dialysis if needed * Continue NaHCO3 therapy (2) Anemia due to chronic kidney disease: Plan: * PRBC transfusion support provided 07/23 * Epogen 51006 units provided 07/25 (3) Sacral decubitus ulcer, stage IV: Plan: * s/p debridement of sacral decubitus ulcer * 07/26 Surgical note: He does have sacral vertebra present at the base of the wound. We will reevaluate the wound Friday with wound care nursing present * Remains on IV Ceftriaxone therapy * Patient hopes to undergo surgical correction of lumbar spinal stenosis at [facility] once his sacral ulcer has healed (4) Lumbar spinal stenosis: Plan: * 06/17 LS MRI revealed progressive stenosis * 07/26/21 PT evaluation: required max assist x1 for supine -->sit, able to sit up unsupported for short periods of time Admission and Anticipated Discharge Date Admission Date: July 13, 2021 Subjective Mr. Escobedo was evaluated in his hospital room this morning. He c/o low back pain and leg weakness. He did participate in PT yesterday but required moderate assistance to sit up, stood for only 15-20 seconds w/ maximal assist, did not lock knees and had fecal incontinence Review of Systems Constitutional: + weakness; no fever Eyes: no problem reported Ear, Nose, Mouth, Throat: no problem reported Respiratory: no cough and no dyspnea Cardiovascular: no chest pain, no palpitations and no edema Gastrointestinal: no abdominal pain, no nausea, no vomiting and no diarrhea/loose stools Genitourinary: no dysuria (performs CIC due to neurogenic bladder) Integumentary: no rash Neurologic: no confusion Physical Exam Constitutional: + frail appearing; not in distress Eyes: PERRL, conjunctivae normal, anicteric sclerae ENMT: external ear and nose normal, oropharynx normal Neck: trachea midline, no thyromegaly Respiratory: normal respiratory effort, lungs clear to auscultation Cardiovascular: Rate/Rhythm: regular rate and regular rhythm Heart Sounds: + murmur Extremities: + edema (1+ pretibial pitting edema) Gastrointestinal (Abdomen): normal bowel sounds, soft, nontender, no hepatosplenomegaly Neurologic: awake; not confused Psychiatric: A+Ox3, euthymic affect Results & Data ([facility]) Vital Signs (Past 12 Hours) Vital Signs Temp Pulse Resp BP BP Pulse Ox 07/28/21 07:22 36.8 C 68 16 136/85 97 07/27/21 23:37 37 C 70 18 137/78 92 Laboratory Results Laboratory Tests 07/28/21 05:32 Sodium 138 Potassium 3.6 Chloride 111 H Carbon Dioxide 18 L BUN 71 H Creatinine 4.30 H Glucose 91 PG Care Time/CCT Total # of Minutes Spent Total Time Spent with Patient: Total time spent is greater than 50% in coordination of care (as documented) at patient's floor/unit and/or counseling patient: Coding Level of Care Code 21919 Subseq Hosp Care Lvl 3 Diagnoses Chronic kidney disease, stage IV (severe) N18.4 Anemia due to chronic kidney disease N18.9; D63.1 Sacral decubitus ulcer, stage IV L89.154 Lumbar spinal stenosis M48.061
--- NOTE | 2021-07-28 16:16 | Hospitalist Progress Note ---
Date of Service July 28, 2021 Assessment & Plan (1) Sacral decubitus ulcer, stage IV: Plan: Status post debridement x 3 (most recent 07/25 excisional debridement down to the sacrum completed by Dr. Myers) - Continue local wound care as outlined by GS and senior integration developer - Will attempt to get a specialized mattress to help alternate pressure points while pt is in bed - Wound growing E. coli which is pansensitive; now on Rocephin and Flagyl, plan for 6 weeks from last debridement 07/26 last day of antibiotics would be 09/06/21 - Discussed with ID, Dr. Moss, appreciate his input (2) Osteomyelitis of sacrum: Plan: - Plan as per #1 - Per UTD, will require at least 6 weeks of IV antibiotic therapy after last debridement which was 07/26 - Will need PICC line insertion for terminal worker abx - Follow up blood cultures ordered 07/26 to ensure that they are clear prior to picc line insertion - no growth will need to check with nephrology about which arm is preferred if there is a chance he will get fistula in future - Change IV abx as above (d/c Zosyn and start Rocephin and Flagyl) -- agreed w/ duration of 6 weeks, last day would be 09/06/21 (3) Bacteremia: Plan: - See plan 1,2 - Repeat blood cultures ordered 07/26, no growth thus far (4) UTI (urinary tract infection) due to Enterococcus: Plan: - Urine culture confirmed enterococcus faecalis, see above - Covered by Daptomycin which was started 07/22, got a total of 4 days of therapy covered by Dapto - Will d/c Daptomycin and start on Amoxicillin 500mg BID (start 07/26 evening), last day is tomorrow (5) Sepsis: Plan: - RESOLVED (6) Ambulatory dysfunction: Plan: 2 different processesbiomechanical pain in the region of his piriformis, as well as lumbar radiculopathy that seems to fit with his L1 problem. - Pain control, OMT, PT/OT eval and treatdue to fall risk and only his able to support him at home, they both prefer to try skilled with rehab emphasis as his disposition from the hospital - Continue oral analgesics. Lidoderm patch ordered to be placed across the lumbar sacral region. Fentanyl patch discontinued on 07/21 - Case management on board -- ?L[facility]na or Jorge may have beds this week but do not anticipate pt will be ready this week (7) Lumbar spinal stenosis: Plan: - Appreciate pain management input for pain control, not a surgical candidate at this time due to his sacral ulcer. - Pain control seems to be doing better overall, and really his only persistent pain is that L1/2 radiculopathy, but even that seems better than before. - Continue PT/OT - Still awaiting placement (SNF/rehab emphasis) given that he is too weak to be safe at home at this time. (8) MARINO (acute kidney injury): Plan: - Likely was a bit dry on admissionnot eating and drinking as well as he normally does, but still taking his Lasix. - Continue to hold Lasix and follow periodically, creatinine appears to be at a relatively steady state in the low 4 range, it is 4.3 today - Other electrolytes remained stable. Patient continues to have urine output. - Nephrology following (9) Chronic kidney disease, stage IV (severe): Plan: As above - Renally dose medications when appropriate - Avoid nephrotoxins - Hold home Lasix 40 mg daily for acute kidney injury as above - Pt is heading to [facility] - May need to consider placement of a AV fistula now with anticipation of [facility] in the near future (10) Anemia due to chronic kidney disease: Plan: Acute on chronic anemia - Hemoglobin lower than previousalthough still likely overall relates to CKD - It does seem that he receives darbepoetin monthly with nephrology - IV iron ordered by nephrology days ago but not placed on oral daily supplementation - started oral FeSO4 supplementation - Transfused 2 units of PRBCs on 07/23, given another 2 units 07/24, hgb stable since, it is 10.7 07/27 - Epogen dose ordered by nephrology on 07/25 (11) Neurogenic bowel: Plan: - Does not follow specific bowel regimen but does move his bowels every 3 to 4 days - MiraLAX as needed (12) Sleep apnea: Plan: - Patient reports he is tolerating his CPAP. It is noted to be at bedside. Patient specifically questioned about facial hair. He states that he gets a good seal. (13) Vitamin D deficiency, unspecified: Plan: - Continue vitamin D replacement (14) Neurogenic bladder: Plan: - Continue self cath as tolerated (15) Anxiety: Plan: - Continue duloxetine 30 mg daily - Continue alprazolam as needed (16) Atrial fibrillation: Plan: - Rate controlled - On half-way AC - Resumed Eliquis 07/26 PM - Continue Toprol XL 25mg daily (dose reduced from 50mg) (17) Abdominal aortic aneurysm: Plan: With a history of such - Follow-up with Dr. Marroquin (18) Hypertension: Plan: - Blood pressure is reasonable. Continue to follow - Stopped Minoxidil and Norvasc (both of which have been on hold and BP has been normal) (19) Hyperlipidemia: Plan: - Continue statin Plan: Repeat labs in AM DVT prophylaxis- Eliquis Disposition-transfer to med/surg Admission and Anticipated Discharge Date Admission Date: July 13, 2021 Subjective patient doing well today, yesterday he was able to sit at the edge of the bed and then stand up he is hoping to take a few steps with therapy the next time they work with him he is eating well, diarrhea resolved after imodium yesterday Cr is 4.3 today, electrolytes stable, appreciate note from Dr. Tony updated patient's at the bedside Review of Systems Review of Systems: All systems reviewed & are unremarkable except as noted in Subjective Constitutional: + weakness Musculoskeletal: + back pain, + joint pain and + muscle weakness Integumentary: + wounds (sacral wound) Physical Exam Physical Exam: General: well developed, well nourished, elderly male, no acute distress, comfortable Neck: supple, trachea midline, normal thyroid Lungs: clear to auscultation bilaterally, normal respiratory effort, no accessory muscle use, no distress Heart: regular S1 and S2, no murmur, peripheral pulses normal, capillary refill normal, no edema Abdomen: soft, NT, ND, + BS, no hepatomegaly, normal to percussion Extremities: normal in appearance, no cyanosis, no petechiae, strength is slig htly diminished Neuro: awake, cooperative, moves all extremities, no focal motor deficits, CN II-XII intact, sensation in extremities intact, normal speech Skin: sacral wound dressed Psych: Awake, alert oriented x 3, euthymic affect Results & Data Results & Data ([facility]) Vital Signs (Past 12 Hours) Vital Signs Temp Pulse Resp BP Pulse Ox 07/28/21 07:22 36.8 C 68 16 136/85 97 Laboratory Results Laboratory Results - last 24 hr 07/28/21 05:32 Sodium 138 Potassium 3.6 Chloride 111 H Carbon Dioxide 18 L Anion Gap 9.0 BUN 71 H Creatinine 4.30 H Est Cr Clr Drug Dosing 18.8 Est GFR ( Amer) 14.6 Est GFR (Non-Af Amer) 12.6 BUN/Creatinine Ratio 16.5 Glucose 91 Calcium 8.6 Medications Administered Current Inpatient Medications Acetaminophen (Acetaminophen 325 Mg Tab) 650 mg PO Q4H PRN PRN Reason: Pain or Fever Stop: 08/12/21 14:54 Last Admin: 07/22/21 09:54 Dose: 650 mg Documented by: Alprazolam (Alprazolam 0.25 Mg Tablet) 0.25 mg PO DAILY PRN PRN Reason: anxiety Stop: 08/12/21 14:54 Last Admin: 07/27/21 22:42 Dose: 0.25 mg Documented by: Amoxicillin (Amoxicillin 500 Mg Cap) 500 mg PO BID [facility]; Protocol Stop: 07/29/21 21:01 Last Admin: 07/28/21 09:07 Dose: 500 mg Documented by: Apixaban (Apixaban 2.5 Mg Tab) 2.5 mg PO BID [facility] Stop: 08/25/21 20:59 Last Admin: 07/28/21 09:06 Dose: 2.5 mg Documented by: Atorvastatin Calcium (Atorvastatin 20 Mg Tab) 20 mg PO QPM [facility] Stop: 08/12/21 20:59 Last Admin: 07/21/21 19:20 Dose: 20 mg Documented by: Calcitriol (Calcitriol 0.25 Mcg Capsule) 0.25 mcg PO [facility] Stop: 08/13/21 08:59 Last Admin: 07/28/21 09:06 Dose: 0.25 mcg Documented by: Duloxetine HCl (Duloxetine Hcl 30 Mg Cap) [facility] Stop: 08/13/21 08:59 Last Admin: 07/28/21 09:05 Dose: 30 mg Documented by: Ferrous Sulfate (Ferrous Sulfate 325 Mg Tab) 325 mg PO BIDM [facility] Stop: 08/22/21 16:59 Last Admin: 07/28/21 09:02 Dose: 325 mg Documented by: Gabapentin (Gabapentin 300 Mg Cap) 300 mg PO [facility] Stop: 08/12/21 20:59 Last Admin: 07/27/21 19:53 Dose: 300 mg Documented by: Ceftriaxone Sodium 2,000 mg/ (Dextrose) 70 mls @ 100 mls/hr IV DAILY [facility]; Protocol Stop: 09/07/21 08:59 Last Infusion: 07/28/21 09:49 Dose: Infused Documented by: Lidocaine (Lidocaine 5% 1 Patch) 1 patch TD [facility] Stop: 08/20/21 13:44 Last Admin: 07/28/21 09:03 Dose: 1 patch Documented by: Loperamide HCl (Loperamide Hcl 2 Mg Cap) 2 mg PO Q6 PRN PRN Reason: Diarrhea Stop: 08/26/21 14:38 Last Admin: 07/27/21 22:42 Dose: 2 mg Documented by: Methenamine Hippurate (Methenamine Hippurate 1 Gm Tab) 1 gm PO [facility] Stop: 08/13/21 08:59 Last Admin: 07/28/21 09:08 Dose: 1 gm Documented by: Metoprolol Succinate (Metoprolol Succ 25mg Ext Rel Tab) 25 mg PO [facility] Stop: 08/22/21 11:29 Last Admin: 07/28/21 09:06 Dose: 25 mg Documented by: Metronidazole (Metronidazole 500 Mg Tab) 500 mg PO TID [facility] Stop: 09/06/21 20:59 Last Admin: 07/28/21 13:16 Dose: 500 mg Documented by: Miscellaneous (Remove Lidoderm Patch) 1 ea N/A DAILY@2100 [facility] Stop: 08/20/21 20:59 Last Admin: 07/27/21 20:03 Dose: 1 ea Documented by: Multivitamins (Multivitamin Tab) 1 tab PO [facility] Stop: 08/13/21 08:59 Last Admin: 07/28/21 09:05 Dose: 1 tab Documented by: Ondansetron HCl (Ondansetron Inj 2 Mg/Ml 2 Ml Vial) 4 mg IV Q6H PRN PRN Reason: Nausea Stop: 08/12/21 14:54 Polyethylene Glycol (Polyethylene (Miralax) 17 Gm Pack) 17 gm PO DAILY PRN PRN Reason: Constipation Stop: 08/12/21 14:54 Sodium Bicarbonate (Sodium Bicarbonate 650 Mg Tab) 1,300 mg PO BID [facility] Stop: 08/24/21 20:59 Last Admin: 07/28/21 09:04 Dose: 1,300 mg Documented by: Sodium Hypochlorite (Dakin's Soln 0.25% Half Strength 473ml Btl) 1 appln EXT DAILY [facility] Stop: 08/26/21 08:59 Last Admin: 07/28/21 09:08 Dose: 1 appln Documented by: PG Care Time/CCT Total # of Minutes Spent Total Time Spent with Patient: Total time spent is greater than 50% in coordination of care (as documented) at patient's floor/unit and/or counseling patient: Coding Level of Care Code 40649 Subseq Hosp Care Lvl 2 Diagnoses Sacral decubitus ulcer, stage IV L89.154 Osteomyelitis of sacrum M46.28 Bacteremia R78.81 UTI (urinary tract infection) due to Enterococcus N39.0; B95.2 Sepsis A41.9 Ambulatory dysfunction R26.2 Lumbar spinal stenosis M48.061 MARINO (acute kidney injury) N17.9 Chronic kidney disease, stage IV (severe) N18.4 Anemia due to chronic kidney disease N18.9; D63.1 Neurogenic bowel K59.2 Sleep apnea G47.30 Vitamin D deficiency, unspecified E55.9 Neurogenic bladder N31.9 Anxiety F41.9 Atrial fibrillation I48.2 Atrial fibrillation type: permanent Abdominal aortic aneurysm I71.4 Presence of rupture: without rupture Hypertension I10 Hypertension type: essential hypertension Hyperlipidemia E78.5 (1) Abdominal aortic aneurysm Presence of rupture: without rupture Qualified Code(s): I71.4 - Abdominal aortic aneurysm, without rupture (2) Atrial fibrillation Atrial fibrillation type: permanent Qualified Code(s): I48.2 - Chronic atrial fibrillation (3) Hypertension Hypertension type: essential hypertension Qualified Code(s): I10 - Essential (primary) hypertension
[2021-07-28] MEDS: LOPERAMIDE HCL 2 MG CAP PO PRN (20:26)
[2021-07-28] MEDS: GABAPENTIN 300 MG CAP PO SCH (20:26)
[2021-07-28] MEDS: ALPRAZolam 0.25 MG TABLET PO PRN (22:16)
[2021-07-29 08:02] LABS: Hematocrit (blood only) 32.3 % (42-52); Hemoglobin 10.4 g/dL (14.0-18.0); Mean Corpuscular Hemoglobin 29.7 pg (25-34); Mean Corpuscular Hgb Conc 32.2 g/dL (32-36); Mean Corpuscular Volume 92.3 fL (80-100); Mean Platelet Volume 8.4 fL (7.4-10.4); Platelet Count 385 K/uL (130-400); RDW Coefficient of Variation 15.7 % (11.5-14.5); RDW Standard Deviation 52.3 fL (36.4-46.3); White Blood Count 8.47 K/uL (4.8-10.8)
[2021-07-29 08:24] LABS: BUN Creatinine Ratio 16.4 (10-20); Calcium 8.4 mg/dl (8.5-10.1); Creatinine Clr Calc Pharmacy 18.8 ml/min; Est GFR (African American) 14.6 ml/min; Est GFR (Non-African American) 12.6 ml/min; Potassium 3.7 mmol/L (3.5-5.1)
[2021-07-29] MEDS: AMOXICILLIN 500 MG CAP PO SCH ×2 (09:01→20:04)
[2021-07-29] MEDS: FERROUS SULFATE 325 MG TAB PO SCH ×2 (09:01→16:25)
[2021-07-29] MEDS: MULTIVITAMIN TAB PO SCH (09:01)
[2021-07-29] MEDS: DULoxetine HCL 30 MG CAP PO SCH (09:02)
[2021-07-29] MEDS: CALCITRIOL 0.25 MCG CAPSULE PO SCH (09:02)
[2021-07-29] MEDS: DAKIN'S SOLN 0.25% HALF STRENGTH 473ML BTL EXT SCH (09:03)
[2021-07-29] MEDS: SODIUM BICARBONATE 650 MG TAB PO SCH ×2 (09:04→20:05)
[2021-07-29] MEDS: APIXABAN 2.5 MG TAB PO SCH ×2 (09:04→20:04)
[2021-07-29] MEDS: metroNIDAZOLE 500 MG TAB PO SCH ×3 (09:06→20:05)
[2021-07-29] MEDS: METOPROLOL SUCC 25MG EXT REL TAB PO SCH (09:06)
[2021-07-29] MEDS: LIDOCAINE 5% 1 PATCH TD SCH (09:08)
[2021-07-29] MEDS: METHENAMINE HIPPURATE 1 GM TAB PO SCH (09:08)
[2021-07-29] MEDS: cefTRIAXone SODIUM 2,000 MG in DEXTROSE 5% 50 ML IV SCH (09:16)
--- NOTE | 2021-07-29 10:05 | Nephrology Progress Note ---
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 Cr has improved from 4.58 to 4.29 w/ EGFR 13 cc/min. No CHF on exam. Electrolyte balance is acceptable. No acute indication for HD at this time * Poor dialysis candidate due to relative immobility and severe sacral decubitus ulcer. Discussed HD w/ patient. He wishes to pursue dialysis if needed * Continue NaHCO3 therapy (2) Hypertension: Plan: * BP is acceptable * Consider low dose Amlodipine for sustained rise in SBP > 140 mmHg (3) Anemia due to chronic kidney disease: Plan: * PRBC transfusion support provided 07/23 * Epogen 09692 units provided 07/25 (4) Sacral decubitus ulcer, stage IV: Plan: * s/p debridement of sacral decubitus ulcer * 07/26 Surgical note: He does have sacral vertebra present at the base of the wound. We will reevaluate the wound Friday with wound care nursing present * Remains on IV Ceftriaxone therapy * Patient hopes to undergo surgical correction of lumbar spinal stenosis at [facility] once his sacral ulcer has healed (5) Lumbar spinal stenosis: Plan: * 06/17 LS MRI revealed progressive stenosis * 07/26/21 PT evaluation: required max assist x1 for supine -->sit, able to sit up unsupported for short periods of time Admission and Anticipated Discharge Date Admission Date: July 13, 2021 Subjective Mr. Escobedo was evaluated in his hospital room this morning. He c/o low back pain and leg weakness. He did not have PT yesterday. He reports ongoing fecal incontinence Review of Systems Constitutional: + weakness; no fever Eyes: no problem reported Ear, Nose, Mouth, Throat: no problem reported Respiratory: no cough and no dyspnea Cardiovascular: no chest pain, no palpitations and no edema Gastrointestinal: no abdominal pain, no nausea, no vomiting and no diarrhea/loose stools Genitourinary: no dysuria (performs CIC due to neurogenic bladder) Integumentary: no rash Neurologic: no confusion Physical Exam Constitutional: + frail appearing; not in distress Eyes: PERRL, conjunctivae normal, anicteric sclerae ENMT: external ear and nose normal, oropharynx normal Neck: trachea midline, no thyromegaly Respiratory: normal respiratory effort, lungs clear to auscultation Cardiovascular: Rate/Rhythm: regular rate and regular rhythm Heart Sounds: + murmur Extremities: + edema (1+ pretibial pitting edema) Gastrointestinal (Abdomen): normal bowel sounds, soft, nontender, no hepatosplenomegaly Neurologic: awake; not confused Psychiatric: A+Ox3, euthymic affect Results & Data ([facility]) Vital Signs (Past 12 Hours) Vital Signs Temp Pulse Resp BP Pulse Ox 07/29/21 07:27 36.2 C L 74 16 145/79 H 98 Laboratory Results Laboratory Tests 07/29/21 07/29/21 06:55 06:55 WBC 8.47 Hgb 10.4 L Hct 32.3 L Plt Count 385 Sodium 140 Potassium 3.7 Chloride 112 H Carbon Dioxide 19 L BUN 70 H Creatinine 4.29 H Glucose 85 PG Care Time/CCT Total # of Minutes Spent Total Time Spent with Patient: Total time spent is greater than 50% in coordination of care (as documented) at patient's floor/unit and/or counseling patient: Coding Level of Care Code 67465 Subseq Hosp Care Lvl 3 Diagnoses Chronic kidney disease, stage IV (severe) N18.4 Anemia due to chronic kidney disease N18.9; D63.1 Sacral decubitus ulcer, stage IV L89.154 Lumbar spinal stenosis M48.061 Hypertension I10 Hypertension type: essential hypertension (1) Hypertension Hypertension type: essential hypertension Qualified Code(s): I10 - Essential (primary) hypertension
--- NOTE | 2021-07-29 17:19 | Hospitalist Progress Note ---
Date of Service July 29, 2021 Assessment & Plan (1) Sacral decubitus ulcer, stage IV: Plan: Status post debridement x 3 (most recent 07/25 excisional debridement down to the sacrum completed by Dr. Myers)--> debridement down to done d/t osteomyelitis - Continue local wound care as outlined by GS and childcare administrator - Will attempt to get a specialized mattress to help alternate pressure points while pt is in bed - Wound culture: E. coli (pansensitive), Alpha Strep (no enterococcus), Bacteroides Fragilis--> now on Rocephin and Flagyl, plan for 6 weeks from last debridement 07/25 last day of antibiotics would be 09/06/21 - seen by ID-- appreciate his input (2) Osteomyelitis of sacrum: Plan: - Plan as per #1 - Per UTD, will require at least 6 weeks of IV antibiotic therapy after last debridement which was 07/26 (to complete 09/06/21) - Will need PICC line insertion for fdc abx - Follow up blood cultures ordered 07/26 to ensure that they are clear prior to picc line insertion - NG @48 hours. If still negative tomorrow, place PICC (consent on chart). -- RIGHT ARM PREFERRED FOR PICC as left arm being preserved for upcoming AVF - Initially on Zosyn upfront (empirically). Transitioned to Rocephin and Flagyl--last day would be 09/06/21 (3) Bacteremia: Plan: - See plan 1,2 - Repeat blood cultures ordered 07/26-- NGTD (4) UTI (urinary tract infection) due to Enterococcus: Plan: - Urine culture confirmed enterococcus faecalis, see above - completed full course of Dapto then Amoxil (5) Sepsis: Plan: - RESOLVED (6) Ambulatory dysfunction: Plan: 2 different processesbiomechanical pain in the region of his piriformis, as well as lumbar radiculopathy that seems to fit with his L1 problem. - Pain control, OMT, PT/OT eval and treatdue to fall risk and only his able to support him at home, they both prefer to try skilled with rehab emphasis as his disposition from the hospital - Continue oral analgesics. Lidoderm patch ordered to be placed across the lumbar sacral region. Fentanyl patch discontinued on 07/21 - Case management on board -- ?[facility] or [facility]. Likely ready for D/C tomorrow (after PICC line in place) (7) Lumbar spinal stenosis: Plan: - Appreciate pain management input for pain control, not a surgical candidate at this time due to his sacral ulcer. - Pain control seems to be doing better overall, and really his only persistent pain is that L1/2 radiculopathy, but even that seems better than before. - Continue PT/OT - Still awaiting placement (SNF/rehab emphasis) given that he is too weak to be safe at home at this time. (8) MARINO (acute kidney injury): Plan: - Likely was a bit dry on admissionnot eating and drinking as well as he normally does, but was still taking his Lasix. - Continue to hold Lasix and follow periodically, creatinine appears to be at a relatively steady state in the low 4 range (likely new baseline)--> likely resume lasix within the next 24-48 hours - Other electrolytes remained stable. Patient continues to have urine output. - Nephrology following (9) Chronic kidney disease, stage IV (severe): Plan: As above - creatinine in the 4's (likely baseline at this time) - Renally dose medications when appropriate - Avoid nephrotoxins - Holding home Lasix 40 mg daily for acute kidney injury as above (but likely resume soon. Currently is euvolemic) - Pt is heading to [facility] - May need to consider placement of a AV fistula now with anticipation of [facility] in the near future (10) Anemia due to chronic kidney disease: Plan: Acute on chronic anemia - Hemoglobin lower than previousalthough still likely overall relates to CKD - It does seem that he receives darbepoetin monthly with nephrology - IV iron ordered by nephrology days ago but not placed on oral daily supplementation - started oral FeSO4 supplementation - Transfused 2 units of PRBCs on 07/23, given another 2 units 07/24, hgb stable since, it is 10.7 07/27 - Epogen dose ordered by nephrology on 07/25 (11) Neurogenic bowel: Plan: - Does not follow specific bowel regimen but does move his bowels every 3 to 4 days - MiraLAX as needed (12) Sleep apnea: Plan: - Patient reports he is tolerating his CPAP. It is noted to be at bedside. Patient specifically questioned about facial hair. He states that he gets a good seal. (13) Vitamin D deficiency, unspecified: Plan: - Continue vitamin D replacement (14) Neurogenic bladder: Plan: - Continue self cath as tolerated (15) Anxiety: Plan: - Continue duloxetine 30 mg daily - Continue alprazolam as needed (16) Atrial fibrillation: Plan: - Rate controlled - On fdc AC - Resumed Eliquis 12/30 PM (is renally adjusted) - Continue Toprol XL 25mg daily (dose reduced from 50mg)-- HR currently 68 (17) Abdominal aortic aneurysm: Plan: With a history of such - Follow-up with Dr. Marroquin (18) Hypertension: Plan: - Blood pressure is reasonable. Continue to follow - Minoxidil and Norvasc initially stopped but BP uptrending of menses 153/90). Patient questioning this and requesting to have his minoxidil restarted. Restart on 07/29 (19) Hyperlipidemia: Plan: - Continue statin Plan: Plan of care to be discussed with Dr. Beach. Further orders as warranted Admission and Anticipated Discharge Date Admission Date: July 13, 2021 Supervising Physician Co-Signing Physician Notes chart reviewed and case d/w Noemy Mcfarland PAC - agree with above. Subjective Patient seen on daily rounds today. Vocalizes no significant complaints or concerns. Denies fevers, chills, chest pain, shortness of breath, abdominal pain, nausea or vomiting. Review of Systems Review of Systems: All systems reviewed and are unremarkable except as noted in HPI and below Denies fevers, chills, headache, nasal congestion, sore throat, cough, chest pain, shortness of breath, palpitations, orthopnea, PND, abdominal pain, nausea, vomiting, diarrhea, constipation, dysuria, hematuria, frequency, back pain, joint pain or swelling, easy bruising or bleeding, skin lesions or rashes. Physical Exam Physical Exam: General: Resting comfortably in his hospital bed. NAD. HEENT: Head is AT/NC buccal mucosa is moist and pink Neck: No JVD. Negative hepatojugular reflex Cardiac: RRR without M/G/R Lungs: CTA without W/R/R Abdomen: Normoactive X4. Soft and nontender in all quadrants. Extremities: No peripheral clubbing cyanosis or edema Neuro: A&O X4 cranial nerves II through XII are grossly intact no focal neuro deficits Skin:sacral would with wound vac in place Psych: Appropriate affect pleasant and cooperative Results & Data Results & Data ([facility]) Vital Signs (Past 12 Hours) Vital Signs Temp Pulse Resp BP Pulse Ox 07/29/21 16:01 36.5 C 68 16 153/90 H 97 07/29/21 07:27 36.2 C L 74 16 145/79 H 98 PG Care Time/CCT Total # of Minutes Spent Total Time Spent with Patient: Total time spent is greater than 50% in coordination of care (as documented) at patient's floor/unit and/or counseling patient: Coding Level of Care Code 57733 Subseq Hosp Care Lvl 2 Diagnoses Sacral decubitus ulcer, stage IV L89.154 Osteomyelitis of sacrum M46.28 Bacteremia R78.81 UTI (urinary tract infection) due to Enterococcus N39.0; B95.2 Sepsis A41.9 Ambulatory dysfunction R26.2 Lumbar spinal stenosis M48.061 MARINO (acute kidney injury) N17.9 Chronic kidney disease, stage IV (severe) N18.4 Anemia due to chronic kidney disease N18.9; D63.1 Neurogenic bowel K59.2 Sleep apnea G47.30 Vitamin D deficiency, unspecified E55.9 Neurogenic bladder N31.9 Anxiety F41.9 Atrial fibrillation I48.2 Atrial fibrillation type: permanent Abdominal aortic aneurysm I71.4 Presence of rupture: without rupture Hypertension I10 Hypertension type: essential hypertension Hyperlipidemia E78.5 (1) Abdominal aortic aneurysm Presence of rupture: without rupture Qualified Code(s): I71.4 - Abdominal aortic aneurysm, without rupture (2) Atrial fibrillation Atrial fibrillation type: permanent Qualified Code(s): I48.2 - Chronic atrial fibrillation (3) Hypertension Hypertension type: essential hypertension Qualified Code(s): I10 - Essential (primary) hypertension
[2021-07-29] MEDS: GABAPENTIN 300 MG CAP PO SCH (20:04)
[2021-07-29] MEDS: ALPRAZolam 0.25 MG TABLET PO PRN (23:19)
[2021-07-30] MEDS: metroNIDAZOLE 500 MG TAB PO SCH ×3 (08:24→21:31)
[2021-07-30] MEDS: CALCITRIOL 0.25 MCG CAPSULE PO SCH (08:24)
[2021-07-30] MEDS: METOPROLOL SUCC 25MG EXT REL TAB PO SCH (08:24)
[2021-07-30] MEDS: MULTIVITAMIN TAB PO SCH (08:24)
[2021-07-30] MEDS: DULoxetine HCL 30 MG CAP PO SCH (08:24)
[2021-07-30] MEDS: SODIUM BICARBONATE 650 MG TAB PO SCH ×2 (08:24→21:32)
[2021-07-30] MEDS: minoxidiL 2.5 MG TAB PO SCH (08:25)
[2021-07-30] MEDS: APIXABAN 2.5 MG TAB PO SCH ×2 (08:25→21:31)
[2021-07-30] MEDS: METHENAMINE HIPPURATE 1 GM TAB PO SCH (08:25)
[2021-07-30] MEDS: cefTRIAXone SODIUM 2,000 MG in DEXTROSE 5% 50 ML IV SCH (08:25)
[2021-07-30] MEDS: FERROUS SULFATE 325 MG TAB PO SCH ×2 (08:25→18:08)
[2021-07-30] MEDS: LIDOCAINE 5% 1 PATCH TD SCH (08:26)
[2021-07-30] MEDS: DAKIN'S SOLN 0.25% HALF STRENGTH 473ML BTL EXT SCH (08:26)
[2021-07-30 09:30] LABS: BUN Creatinine Ratio 14.7 (10-20); Calcium 8.6 mg/dl (8.5-10.1); Creatinine Clr Calc Pharmacy 19.5 ml/min; Est GFR (African American) 15.3 ml/min; Est GFR (Non-African American) 13.2 ml/min; Potassium 3.7 mmol/L (3.5-5.1)
--- NOTE | 2021-07-30 09:34 | Nephrology Progress Note ---
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 Cr has improved from 4.58 to 4.13 w/ EGFR 13 cc/min. No CHF on exam. Electrolyte balance is acceptable. No acute indication for HD at this time * Poor dialysis candidate due to relative immobility and severe sacral decubitus ulcer. Discussed HD w/ patient. He wishes to pursue dialysis if needed * Continue NaHCO3 therapy (2) Hypertension: Plan: * BP is acceptable * Consider low dose Amlodipine for sustained rise in SBP > 140 mmHg (3) Anemia due to chronic kidney disease: Plan: * PRBC transfusion support provided 07/23 * Epogen 06050 units provided 07/25 (4) Sacral decubitus ulcer, stage IV: Plan: * s/p debridement of sacral decubitus ulcer * 07/26 Surgical note: He does have sacral vertebra present at the base of the wound. We will reevaluate the wound Friday with wound care nursing present * Remains on IV Ceftriaxone therapy * Patient [place] [facility] [place] has healed (5) Lumbar spinal stenosis: Plan: * 06/17 LS MRI revealed progressive stenosis * 07/26/21 PT evaluation: required max assist x1 for supine -->sit, able to sit up unsupported for short periods of time Admission and Anticipated Discharge Date Admission Date: July 13, 2021 Subjective Mr. Escobedo was evaluated in his hospital room this morning. He has persistent low back pain and leg weakness. He did not have PT yesterday. He reports ongoing fecal incontinence Review of Systems Constitutional: + weakness; no fever Eyes: no problem reported Ear, Nose, Mouth, Throat: no problem reported Respiratory: no cough and no dyspnea Cardiovascular: no chest pain, no palpitations and no edema Gastrointestinal: no abdominal pain, no nausea, no vomiting and no diarrhea/loose stools Genitourinary: no dysuria (performs CIC due to neurogenic bladder) Integumentary: no rash Neurologic: no confusion Physical Exam Constitutional: + frail appearing; not in distress Eyes: PERRL, conjunctivae normal, anicteric sclerae ENMT: external ear and nose normal, oropharynx normal Neck: trachea midline, no thyromegaly Respiratory: normal respiratory effort, lungs clear to auscultation Cardiovascular: Rate/Rhythm: regular rate and regular rhythm Heart Sounds: + murmur Extremities: + edema (1+ pretibial pitting edema) Gastrointestinal (Abdomen): normal bowel sounds, soft, nontender, no hepatosplenomegaly Neurologic: awake; not confused Psychiatric: A+Ox3, euthymic affect Results & Data ([facility]) Vital Signs (Past 12 Hours) Vital Signs Temp Pulse Pulse Resp BP Pulse Ox 07/30/21 07:49 36.9 C 67 16 143/84 H 96 07/29/21 22:59 37.0 C 63 18 151/87 H 94 Laboratory Results Laboratory Tests 07/24/21 07/27/21 07/28/21 05:29 13:08 05:32 Sodium Potassium Chloride Carbon Dioxide BUN Creatinine 4.58 H* 4.30 H Calcium Stl C. diff Tox B Gene Negative Cdiff Gene 07/30/21 07:12 Sodium 138 Potassium 3.7 Chloride 109 H Carbon Dioxide 17 L BUN 61 H Creatinine 4.13 H Calcium 8.6 Stl C. diff Tox B Gene PG Care Time/CCT Total # of Minutes Spent Total Time Spent with Patient: Total time spent is greater than 50% in coordination of care (as documented) at patient's floor/unit and/or counseling patient: Coding Level of Care Code 35091 Subseq Hosp Care Lvl 3 Diagnoses Chronic kidney disease, stage IV (severe) N18.4 Hypertension I10 Hypertension type: essential hypertension Anemia due to chronic kidney disease N18.9; D63.1 Sacral decubitus ulcer, stage IV L89.154 Lumbar spinal stenosis M48.061 (1) Hypertension Hypertension type: essential hypertension Qualified Code(s): I10 - Essential (primary) hypertension
--- NOTE | 2021-07-30 11:00 | XRay Report ---
XR chest 1V portable HISTORY: 76 years-old Male Right PICC line placement status post placement of a right-sided PICC COMPARISON: Chest radiograph 07/22/2021 TECHNIQUE: Portable AP view of the chest FINDINGS: Cardiac silhouette is enlarged. Prior median sternotomy. A right-sided PICC is noted with distal tip projected over the right atrium. No pneumothorax. Trace pleural effusions. Pulmonary vascular congest ion with mild interstitial coarsening. Bibasilar opacities are new from prior. Degenerative changes o f the shoulders and spine. Surgical clips of the right axilla. IMPRESSION: 1. Status post placement of a right-sided PICC with distal tip projected over the right atrium. No pn eumothorax. 2. Cardiomegaly with pulmonary edema and trace pleural effusions. 3. Mild bibasilar densities suggest atelectasis versus pneumonitis. ACT 112: Negative or not required by law. The above report was generated using voice recognition software. It may contain grammatical, syntax o r spelling errors. Electronically signed by: Stan Lui M.D. 07/30/2021 10:59 AM
--- NOTE | 2021-07-30 11:11 | Surgery Progress Note ---
Date of Service July 30, 2021 Assessment & Plan (1) Osteomyelitis of sacrum: Plan: Received PICC line this morning we will defer antibiotic regimen to medicine and ID Wound evaluated at bedside with some removal of devitalized muscle tissue We will plan to dress the wound with twice daily Dakin's dressings for another 2 to 3 days and at that time place a wound VAC prior to discharge He can follow-up in the wound clinic as an outpatient (2) Sacral decubitus ulcer, stage IV: Admission and Anticipated Discharge Date Admission Date: July 13, 2021 Subjective Patient seen and examined.No acute events overnight. Afebrile. Feeling much better. Physical Exam Constitutional: WD/WN, vitals as above Skin: Sacral wound with 50% granulation tissue present throughout the wound, some devitalized subcutaneous and muscle tissue present, sacrum present at base of wound Results & Data ([facility]) Vital Signs (Past 12 Hours) Vital Signs Temp Pulse Resp BP Pulse Ox 07/30/21 07:49 36.9 C 67 16 143/84 H 96 PG Care Time/CCT Total # of Minutes Spent Total Time Spent with Patient: Total time spent is greater than 50% in coordination of care (as documented) at patient's floor/unit and/or counseling patient: Coding Level of Care Code 82624 Subseq Hosp Care Lvl 1 Diagnoses Osteomyelitis of sacrum M46.28 Sacral decubitus ulcer, stage IV L89.154
[2021-07-30] MEDS: SACCHAROMYCES BOULARDII 250 MG CAP PO SCH (11:47)
--- NOTE | 2021-07-30 15:09 | Hospitalist Progress Note ---
Date of Service July 30, 2021 Assessment & Plan (1) Sacral decubitus ulcer, stage IV: Plan: Status post debridement x 3 (most recent 07/25 excisional debridement down to the sacrum completed by Dr. Myers)--> debridement down to done d/t osteomyelitis - Continue local wound care as outlined by GS and rn clinician - Will attempt to get a specialized mattress to help alternate pressure points while pt is in bed - Wound culture: E. coli (pansensitive), Alpha Strep (no enterococcus), Bacteroides Fragilis--> now on Rocephin and Flagyl, plan for 6 weeks from last debridement 07/25 last day of antibiotics would be 09/06/21 - seen by ID-- appreciate his input - Per general surgery, plan is for wound VAC prior to discharge and patient to follow-up with wound clinic as an outpatient (2) Osteomyelitis of sacrum: Plan: - Plan as per #1 - Per UTD, will require at least 6 weeks of IV antibiotic therapy after last debridement which was 07/26 (to complete 09/06/21) - Will need PICC line insertion for residential abx - Follow up blood cultures ordered 07/26 to ensure that they are clear prior to picc line insertion -no growth to date -- RIGHT ARM PREFERRED FOR PICC as left arm being preserved for upcoming AVF - Initially on Zosyn upfront (empirically). Transitioned to Rocephin and Flagyl--last day would be 09/06/21 (3) Bacteremia: Plan: - See plan 1,2 - Repeat blood cultures ordered 07/26-- NGTD (4) UTI (urinary tract infection) due to Enterococcus: Plan: - Urine culture confirmed enterococcus faecalis, see above - completed full course of Dapto then Amoxil (5) Sepsis: Plan: - RESOLVED (6) Ambulatory dysfunction: Plan: 2 different processesbiomechanical pain in the region of his piriformis, as well as lumbar radiculopathy that seems to fit with his L1 problem. - Pain control, OMT, PT/OT eval and treatdue to fall risk and only his able to support him at home, they both prefer to try skilled with rehab emphasis as his disposition from the hospital - Continue oral analgesics. Lidoderm patch ordered to be placed across the lumbar sacral region. Fentanyl patch discontinued on 07/21 - Case management on board -- ?Lorena or Jorge. Medically stable for discharge after insertion of PICC line and set up with wound VAC (7) Lumbar spinal stenosis: Plan: - Appreciate pain management input for pain control, not a surgical candidate at this time due to his sacral ulcer. - Pain control seems to be doing better overall, and really his only persistent pain is that L1/2 radiculopathy, but even that seems better than before. - Continue PT/OT - Still awaiting placement (SNF/rehab emphasis) given that he is too weak to be safe at home at this time. (8) MARINO (acute kidney injury): Plan: - Likely was a bit dry on admissionnot eating and drinking as well as he normally does, but was still taking his Lasix. - Continue to hold Lasix and follow periodically, creatinine appears to be at a relatively steady state in the low 4 range (likely new baseline)--> FU labs in the am and likely resume lasix within the next 24-48 hours - Other electrolytes remained stable. Patient continues to have urine output. - Nephrology following (9) Diarrhea: Plan: -Likely antibiotic associated -Add probiotic and yogurt with live cultures (10) Chronic kidney disease, stage IV (severe): Plan: As above - creatinine in the 4's (likely baseline at this time) - Renally dose medications when appropriate - Avoid nephrotoxins - Holding home Lasix 40 mg daily for acute kidney injury as above (but likely resume soon. 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 (11) Anemia due to chronic kidney disease: Plan: Acute on chronic anemia - Hemoglobin lower than previousalthough still likely overall relates to CKD - It does seem that he receives darbepoetin monthly with nephrology - IV iron ordered by nephrology days ago but not placed on oral daily supplementation - started oral FeSO4 supplementation - Transfused 2 units of PRBCs on 07/23, given another 2 units 07/24, hgb stable since, it is 10.7 07/27 - Epogen dose ordered by nephrology on 07/25 (12) Neurogenic bowel: Plan: - Does not follow specific bowel regimen but does move his bowels every 3 to 4 days - MiraLAX as needed (13) Sleep apnea: Plan: - Patient reports he is tolerating his CPAP. It is noted to be at bedside. Patient specifically questioned about facial hair. He states that he gets a good seal. 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 Marroquin (19) Hypertension: Plan: - Blood pressure is reasonable. Continue to follow - Minoxidil and Norvasc initially stopped but BP uptrending of menses 153/90). Patient questioning this and requesting to have his minoxidil restarted. Restart on 07/29 (20) Hyperlipidemia: Plan: - Continue statin Plan: Plan of care to be discussed with Dr. Beach. Further orders as warranted Admission and Anticipated Discharge Date Admission Date: July 13, 2021 Subjective Patient seen on daily rounds today. Vocalizes complaints of some diarrhea related to the antibiotic on board but otherwise denies fevers, chills, chest pain, shortness of breath, abdominal pain, nausea or vomiting. Nursing voices no complaints or concerns. Review of Systems Review of Systems: All systems reviewed and are unremarkable except as noted in HPI and below Denies fevers, chills, headache, nasal congestion, sore throat, cough, chest pain, shortness of breath, palpitations, orthopnea, PND, abdominal pain, nausea, vomiting, constipation, dysuria, hematuria, frequency, back pain, joint pain or swelling, easy bruising or bleeding, skin lesions or rashes. Physical Exam Physical Exam: General: Resting comfortably in his hospital bed. NAD. HEENT: Head is AT/NC buccal mucosa is moist and pink Neck: No JVD. Negative hepatojugular reflex Cardiac: RRR without M/G/R Lungs: CTA without W/R/R Abdomen: Normoactive X4. Soft and nontender in all quadrants. Extremities: No peripheral clubbing cyanosis or edema Neuro: A&O X4 cranial nerves II through XII are grossly intact no focal neuro deficits Skin:sacral would with wound vac in place Psych: Appropriate affect pleasant and cooperative Results & Data Results & Data ([facility]) Vital Signs (Past 12 Hours) Vital Signs Temp Pulse Pulse Resp BP Pulse Ox 07/30/21 14:44 36.7 C 73 16 136/81 97 07/30/21 07:49 36.9 C 67 16 143/84 H 96 PG Care Time/CCT Total # of Minutes Spent Total Time Spent with Patient: Total time spent is greater than 50% in coordination of care (as documented) at patient's floor/unit and/or counseling patient: Coding Level of Care Code 02098 Subseq Hosp Care Lvl 2 Diagnoses Sacral decubitus ulcer, stage IV L89.154 Osteomyelitis of sacrum M46.28 Bacteremia R78.81 UTI (urinary tract infection) due to Enterococcus N39.0; B95.2 Sepsis A41.9 Ambulatory dysfunction R26.2 Lumbar spinal stenosis M48.061 MARINO (acute kidney injury) N17.9 Chronic kidney disease, stage IV (severe) N18.4 Anemia due to chronic kidney disease N18.9; D63.1 Neurogenic bowel K59.2 Sleep apnea G47.30 Vitamin D deficiency, unspecified E55.9 Neurogenic bladder N31.9 Anxiety F41.9 Atrial fibrillation I48.2 Atrial fibrillation type: permanent Abdominal aortic aneurysm I71.4 Presence of rupture: without rupture Hypertension I10 Hypertension type: essential hypertension Hyperlipidemia E78.5 Diarrhea R19.7 (1) Atrial fibrillation Atrial fibrillation type: permanent Qualified Code(s): I48.2 - Chronic atrial fibrillation (2) Abdominal aortic aneurysm Presence of rupture: without rupture Qualified Code(s): I71.4 - Abdominal aortic aneurysm, without rupture (3) Hypertension Hypertension type: essential hypertension Qualified Code(s): I10 - Essential (primary) hypertension
[2021-07-30] MEDS: GABAPENTIN 300 MG CAP PO SCH (21:31)
[2021-07-30] MEDS: ALPRAZolam 0.25 MG TABLET PO PRN (22:22)
[2021-07-31] MEDS: LIDOCAINE 5% 1 PATCH TD SCH (08:33)
[2021-07-31] MEDS: MULTIVITAMIN TAB PO SCH (08:34)
[2021-07-31] MEDS: FERROUS SULFATE 325 MG TAB PO SCH ×3 (08:34→22:14)
[2021-07-31] MEDS: SODIUM BICARBONATE 650 MG TAB PO SCH ×2 (08:34→22:13)
[2021-07-31] MEDS: metroNIDAZOLE 500 MG TAB PO SCH ×3 (08:34→22:14)
[2021-07-31] MEDS: APIXABAN 2.5 MG TAB PO SCH ×2 (08:34→22:14)
[2021-07-31] MEDS: METOPROLOL SUCC 25MG EXT REL TAB PO SCH (08:35)
[2021-07-31] MEDS: minoxidiL 2.5 MG TAB PO SCH (08:35)
[2021-07-31] MEDS: CALCITRIOL 0.25 MCG CAPSULE PO SCH (08:35)
[2021-07-31] MEDS: DULoxetine HCL 30 MG CAP PO SCH (08:35)
[2021-07-31] MEDS: METHENAMINE HIPPURATE 1 GM TAB PO SCH (08:35)
[2021-07-31] MEDS: SACCHAROMYCES BOULARDII 250 MG CAP PO SCH (08:36)
[2021-07-31] MEDS: cefTRIAXone SODIUM 2,000 MG in DEXTROSE 5% 50 ML IV SCH (08:38)
[2021-07-31 10:00] LABS: Basophils # (auto) 0.06 K/uL (0-0.2); Basophils % (auto) 0.8 %; Eosinophils # (auto) 0.23 K/uL (0-0.5); Eosinophils % (auto) 3.2 %; Hematocrit (blood only) 32.9 % (42-52); Hemoglobin 10.6 g/dL (14.0-18.0); Immature Granulocytes # (auto) 0.04 K/uL (0.00-0.02); Immature Granulocytes % (auto) 0.6 %; Lymphocytes # (auto) 0.81 K/uL (1.2-3.4); Lymphocytes % (auto) 11.3 %; Mean Corpuscular Hgb Conc 32.2 g/dL (32-36); Mean Corpuscular Volume 93.2 fL (80-100); Mean Platelet Volume 8.1 fL (7.4-10.4); Monocytes # (auto) 0.66 K/uL (0.11-0.59); Monocytes % (auto) 9.2 %; Neutrophils # (auto) 5.34 K/uL (1.4-6.5); Neutrophils % (auto) 74.9 %; Platelet Count 379 K/uL (130-400); RDW Coefficient of Variation 15.9 % (11.5-14.5); Red Blood Count 3.53 M/uL (4.7-6.1); White Blood Count 7.14 K/uL (4.8-10.8)
--- NOTE | 2021-07-31 10:10 | Nephrology Progress Note ---
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 Cr had been trending down over the last several days. Awaiting AM lab results. No acute indication for HD at this time * Poor dialysis candidate due to relative immobility and severe sacral decubitus ulcer. Discussed HD w/ patient. He wishes to pursue dialysis if needed * Continue NaHCO3 therapy (2) Hypertension: Plan: * BP is acceptable * Home dose of Minoxidil has been restarted (3) Anemia due to chronic kidney disease: Plan: * PRBC transfusion support provided 07/23 * Epogen 82191 units provided 07/25 (4) Sacral decubitus ulcer, stage IV: Plan: * s/p debridement of sacral decubitus ulcer * Will need outpatient management w/ wound vac and follow up at wound clinic * Patient [place] [facility] [place] has healed (5) Lumbar spinal stenosis: Plan: * 06/17 LS MRI revealed progressive stenosis * 07/30/21 PT evaluation: moderate asist to stand, stood at rolling walker for brief period of time Admission and Anticipated Discharge Date Admission Date: July 13, 2021 Subjective Mr. Escobedo was evaluated in his hospital room this morning. He has persistent low back pain and leg weakness. He did participate w/ PT yesterday and hopes to transfer to [facility] for ongoing PT. He had diarrhea yesterday but notes that he has been started on a probiotic. AM labs were not yet drawn this am Review of Systems Constitutional: + weakness; no fever Eyes: no problem reported Ear, Nose, Mouth, Throat: no problem reported Respiratory: no cough and no dyspnea Cardiovascular: no chest pain, no palpitations and no edema Gastrointestinal: no abdominal pain, no nausea, no vomiting and no diarrhea/loose stools Genitourinary: no dysuria (performs CIC due to neurogenic bladder) Integumentary: no rash Neurologic: no confusion Physical Exam Constitutional: + frail appearing; not in distress Eyes: PERRL, conjunctivae normal, anicteric sclerae ENMT: external ear and nose normal, oropharynx normal Neck: trachea midline, no thyromegaly Respiratory: normal respiratory effort, lungs clear to auscultation Cardiovascular: Rate/Rhythm: regular rate and regular rhythm Heart Sounds: + murmur Extremities: + edema (1+ pretibial pitting edema) Gastrointestinal (Abdomen): normal bowel sounds, soft, nontender, no hepatosplenomegaly Neurologic: awake; not confused Psychiatric: A+Ox3, euthymic affect Results & Data ([facility]) Vital Signs (Past 12 Hours) Vital Signs Temp Pulse Pulse Resp BP BP Pulse Ox 07/31/21 07:55 36.9 C 83 16 141/75 H 92 07/30/21 23:02 37.0 C 72 14 141/63 H 97 Laboratory Results Laboratory Tests 07/31/21 07/31/21 09:25 09:25 WBC 7.14 Hgb 10.6 L Hct 32.9 L Plt Count 379 Sodium Pending Potassium Pending Chloride Pending Carbon Dioxide Pending BUN Pending Creatinine Pending PG Care Time/CCT Total # of Minutes Spent Total Time Spent with Patient: Total time spent is greater than 50% in coordination of care (as documented) at patient's floor/unit and/or counseling patient: Coding Level of Care Code 45438 Subseq Hosp Care Lvl 3 Diagnoses Chronic kidney disease, stage IV (severe) N18.4 Hypertension I10 Hypertension type: essential hypertension Anemia due to chronic kidney disease N18.9; D63.1 Sacral decubitus ulcer, stage IV L89.154 Lumbar spinal stenosis M48.061 (1) Hypertension Hypertension type: essential hypertension Qualified Code(s): I10 - Essential (primary) hypertension
[2021-07-31 10:20] LABS: BUN Creatinine Ratio 13.3 (10-20); Calcium 8.8 mg/dl (8.5-10.1); Creatinine Clr Calc Pharmacy 19.3 ml/min; Est GFR (African American) 15.1 ml/min; Magnesium 2.5 mg/dl (1.8-2.4); Potassium 3.4 mmol/L (3.5-5.1)
--- NOTE | 2021-07-31 13:13 | XRay Report ---
XR chest 1V portable HISTORY: 76 years-old Male right PICC tip placement, adjusted per Dr Forbes status post placement of a right-sided PICC COMPARISON: Chest radiograph 07/30/2021 TECHNIQUE: Portable supine AP view of the chest FINDINGS: Cardiac silhouette is enlarged. Prior median sternotomy. A right-sided PICC has been repositioned, no w with distal tip in the expected location of the mid SVC. No pneumothorax. Small pleural effusions w ith progressive bibasilar densities. Mildly progressed pulmonary edema. Degenerative changes of the s houlders and spine. Surgical clips of the right axilla. IMPRESSION: 1. Repositioned PICC, now with the distal tip projected over the mid SVC. No pneumothorax. 2. Cardiomegaly with progressively worsened pulmonary edema and mildly worsened bibasilar opacities. 3. Small pleural effusions. ACT 112: Negative or not required by law. The above report was generated using voice recognition software. It may contain grammatical, syntax o r spelling errors. Electronically signed by: Stan Lui M.D. 07/31/2021 1:12 PM
--- NOTE | 2021-07-31 15:42 | Hospitalist Progress Note ---
Date of Service July 31, 2021 Assessment & Plan (1) Sacral decubitus ulcer, stage IV: Plan: Status post debridement x 3 (most recent 07/25 excisional debridement down to the sacrum completed by Dr. Myers)--> debridement down to done d/t osteomyelitis - Continue local wound care as outlined by GS and office machine servicer-- wound vac ordered and to arrive tomorrow to be placed prior to D/C - on air mattress - Wound culture: E. coli (pansensitive), Alpha Strep (no enterococcus), Bacteroides Fragilis--> now on Rocephin and Flagyl, plan for 6 weeks from last debridement 07/25 last day of antibiotics would be 09/06/21 - seen by ID-- appreciate his input (2) Osteomyelitis of sacrum: Plan: - Plan as per #1 - Per UTD, will require at least 6 weeks of IV antibiotic therapy after last debridement which was 07/26 (to complete 09/06/21) - PICC line in place to RUE (following clearance of blood cultures) - Initially on Zosyn upfront (empirically). Transitioned to Rocephin and Flagyl--last day would be 09/06/21 (3) Bacteremia: Plan: - See plan 1,2 - initially with positive BC for e.coli, alpha strep (not enterococcus) and Bacteroides - on IV abx therapy as outlined above - BC cleared on 07/26 (no growth x5 days at this time) (4) UTI (urinary tract infection) due to Enterococcus: Plan: - Urine culture confirmed enterococcus faecalis, see above - completed full course of Dapto then Amoxil (5) Sepsis: Plan: - RESOLVED (6) Ambulatory dysfunction: Plan: 2 different processesbiomechanical pain in the region of his piriformis, as well as lumbar radiculopathy that seems to fit with his L1 problem. - Pain control, OMT, PT/OT eval and treatdue to fall risk and only his able to support him at home, they both prefer to try skilled with rehab emphasis as his disposition from the hospital - Continue oral analgesics. Lidoderm patch ordered to be placed across the kelly mbar sacral region. Fentanyl patch discontinued on 07/21 - Case management on board -- ?Lorena or Jorge. Medically stable for discharge after insertion of PICC line and set up with wound VAC (7) Lumbar spinal stenosis: Plan: - Appreciate pain management input for pain control, not a surgical candidate at this time due to his sacral ulcer. - Pain control seems to be doing better overall, and really his only persistent pain is that L1/2 radiculopathy, but even that seems better than before. - Continue PT/OT - Still awaiting placement (SNF/rehab emphasis) given that he is too weak to be safe at home at this time. (8) MARINO (acute kidney injury): Plan: - Likely was a bit dry on admissionnot eating and drinking as well as he normally does, but was still taking his Lasix. - Lasix has been on hold given A/CKD. creatinine appears to be at a relatively steady state in the low 4 range (likely new baseline)--> uncertain if lasix is needed at this time (euvolemic at this time) - Other electrolytes remained stable. Patient continues to have urine output. - Nephrology following-- appreciate recommendations (9) Diarrhea: Plan: -Likely antibiotic associated -Add probiotic and yogurt with live cultures (10) Chronic kidney disease, stage IV (severe): Plan: As above - creatinine in the 4's (likely baseline at this time) - Renally dose medications when appropriate - Avoid nephrotoxins - Holding home Lasix 40 mg daily for acute kidney injury as above -- uncertain if this is needed at this time - Pt is heading to [facility] - May need to consider placement of a AV fistula now with anticipation of [facility] in the near future (11) Anemia due to chronic kidney disease: Plan: Acute on chronic anemia - Hemoglobin lower than previousalthough still likely overall relates to CKD - It does seem that he receives darbepoetin monthly with nephrology - IV iron ordered by nephrology days ago but not placed on oral daily supplementation - started oral FeSO4 supplementation - Transfused 2 units of PRBCs on 07/23, given another 2 units 07/24, hgb stable since, it is 10.7 07/27 - Epogen dose ordered by nephrology on 07/25 (12) Neurogenic bowel: Plan: - Does not follow specific bowel regimen but does move his bowels every 3 to 4 days - MiraLAX as needed (13) Sleep apnea: Plan: - Patient reports he is tolerating his CPAP. It is noted to be at bedside. Patient specifically questioned about facial hair. He states that he gets a good seal. (14) Vitamin D deficiency, unspecified: Plan: - Continue vitamin D replacement (15) Neurogenic bladder: Plan: - Continue self cath as tolerated (16) Anxiety: Plan: - Continue duloxetine 30 mg daily - Continue alprazolam as needed (17) Atrial fibrillation: Plan: - Rate controlled - On snf AC - Resumed Eliquis 12/30 PM (is renally adjusted) - Continue Toprol XL 25mg daily (dose reduced from 50mg)-- HR currently 68 (18) Abdominal aortic aneurysm: Plan: With a history of such - Follow-up with Dr. Marroquin (19) Hypertension: Plan: - Blood pressure is reasonable. Continue to follow - continue Minoxidil and Norvasc as prior to hospitalization (was held when he was hypotensive from sepsis) (20) Hyperlipidemia: Plan: - Continue statin Admission and Anticipated Discharge Date Admission Date: July 13, 2021 Subjective Patient seen on daily rounds today. Overall, continues to have loose stools but improving. Denies fevers, chills, chest pain, shortness of breath, abdominal pain, nausea or vomiting. PICC line is now in place to right upper extremity. Wound VAC has since been ordered and is to arrive tomorrow. Nursing voices no complaints or concerns. Review of Systems Review of Systems: All systems reviewed and are unremarkable except as noted in HPI and below Denies fevers, chills, headache, nasal congestion, sore throat, cough, chest pain, shortness of breath, palpitations, orthopnea, PND, abdominal pain, nausea, vomiting, constipation, dysuria, hematuria, frequency, back pain, joint pain or swelling, easy bruising or bleeding, skin lesions or rashes. Physical Exam Physical Exam: General: Resting comfortably in his hospital bed. Does not appear ill or toxic. NAD. HEENT: Head is AT/NC buccal mucosa is moist and pink Neck: No JVD. Negative hepatojugular reflex Cardiac: RRR with 2/6 IVA Lungs: CTA without W/R/R Abdomen: Normoactive X4. Soft and nontender in all quadrants. Extremities: PICC line to right upper extremity Neuro: A&O X4 cranial nerves II through XII are grossly intact no focal neuro deficits Skin: No obvious skin lesions or rashes Psych: Appropriate affect pleasant and cooperative Results & Data Results & Data ([facility]) Vital Signs (Past 12 Hours) Vital Signs Temp Pulse Resp BP Pulse Ox 07/31/21 07:55 36.9 C 83 16 141/75 H 92 PG Care Time/CCT Total # of Minutes Spent Total Time Spent with Patient: Total time spent is greater than 50% in coordination of care (as documented) at patient's floor/unit and/or counseling patient: Coding Level of Care Code 14407 Subseq Hosp Care Lvl 1 Diagnoses Sacral decubitus ulcer, stage IV L89.154 Osteomyelitis of sacrum M46.28 Bacteremia R78.81 UTI (urinary tract infection) due to Enterococcus N39.0; B95.2 Sepsis A41.9 Ambulatory dysfunction R26.2 Lumbar spinal stenosis M48.061 MARINO (acute kidney injury) N17.9 Diarrhea R19.7 Chronic kidney disease, stage IV (severe) N18.4 Anemia due to chronic kidney disease N18.9; D63.1 Neurogenic bowel K59.2 Sleep apnea G47.30 Vitamin D deficiency, unspecified E55.9 Neurogenic bladder N31.9 Anxiety F41.9 Atrial fibrillation I48.2 Atrial fibrillation type: permanent Abdominal aortic aneurysm I71.4 Presence of rupture: without rupture Hypertension I10 Hypertension type: essential hypertension Hyperlipidemia E78.5 (1) Atrial fibrillation Atrial fibrillation type: permanent Qualified Code(s): I48.2 - Chronic atrial fibrillation (2) Abdominal aortic aneurysm Presence of rupture: without rupture Qualified Code(s): I71.4 - Abdominal aortic aneurysm, without rupture (3) Hypertension Hypertension type: essential hypertension Qualified Code(s): I10 - Essential (primary) hypertension
[2021-07-31] MEDS: DAKIN'S SOLN 0.25% HALF STRENGTH 473ML BTL EXT SCH (17:00)
[2021-07-31] MEDS: ALPRAZolam 0.25 MG TABLET PO PRN (22:13)
[2021-07-31] MEDS: GABAPENTIN 300 MG CAP PO SCH (22:15)
[2021-08-01] MEDS: cefTRIAXone SODIUM 2,000 MG in DEXTROSE 5% 50 ML IV SCH (08:22)
[2021-08-01] MEDS: CALCITRIOL 0.25 MCG CAPSULE PO SCH (08:25)
[2021-08-01] MEDS: FERROUS SULFATE 325 MG TAB PO SCH (08:25)
[2021-08-01] MEDS: SODIUM BICARBONATE 650 MG TAB PO SCH (08:25)
[2021-08-01] MEDS: APIXABAN 2.5 MG TAB PO SCH (08:26)
[2021-08-01] MEDS: metroNIDAZOLE 500 MG TAB PO SCH ×2 (08:26→15:30)
[2021-08-01] MEDS: METHENAMINE HIPPURATE 1 GM TAB PO SCH (08:26)
[2021-08-01] MEDS: LIDOCAINE 5% 1 PATCH TD SCH (08:26)
[2021-08-01] MEDS: DULoxetine HCL 30 MG CAP PO SCH (08:26)
[2021-08-01] MEDS: SACCHAROMYCES BOULARDII 250 MG CAP PO SCH (08:26)
[2021-08-01] MEDS: MULTIVITAMIN TAB PO SCH (08:26)
[2021-08-01] MEDS: minoxidiL 2.5 MG TAB PO SCH (08:26)
[2021-08-01] MEDS: DAKIN'S SOLN 0.25% HALF STRENGTH 473ML BTL EXT SCH (08:27)
[2021-08-01] MEDS: METOPROLOL SUCC 25MG EXT REL TAB PO SCH (08:28)
[2021-08-01 08:47] LABS: Calcium 8.6 mg/dl (8.5-10.1); Creatinine Clr Calc Pharmacy 19.7 ml/min; Est GFR (African American) 15.4 ml/min; Est GFR (Non-African American) 13.3 ml/min; Potassium 3.6 mmol/L (3.5-5.1)
[2021-08-01] MEDS ORDERED: amLODIPine BESYLATE 5 MG TAB PO SCH (09:00)
--- NOTE | 2021-08-01 10:52 | Nephrology Progress Note ---
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 Cr improved from 4.5 to 4.1 this am. Volume status and electrolyte balance remain acceptable. No acute indication for HD at this time * Poor dialysis candidate due to relative immobility and severe sacral decubitus ulcer. Discussed HD w/ patient. He wishes to pursue dialysis if needed * Continue NaHCO3 therapy * Please schedule outpatient Nephrology follow up w/ Dr. Paul within 7 - 14 days of hospital discharge ([phone]) (2) Hypertension: Plan: * BP is acceptable * Home dose of Minoxidil has been restarted (3) Anemia due to chronic kidney disease: Plan: * PRBC transfusion support provided 07/23 * Epogen 71842 units provided 07/25 (4) Sacral decubitus ulcer, stage IV: Plan: * s/p debridement of sacral decubitus ulcer * Will need outpatient management w/ wound vac and follow up at wound clinic * Patient hopes to undergo surgical correction of lumbar spinal stenosis at [facility] once his sacral ulcer has healed (5) Lumbar spinal stenosis: Plan: * 06/17 LS MRI revealed progressive stenosis * 07/31/21 PT evaluation: maximal assist to stand, knees remain flexed when standing Admission and Anticipated Discharge Date Admission Date: July 13, 2021 Subjective Mr. Escobedo was evaluated in his hospital room this morning. He has persistent low back pain and leg weakness. He did participate w/ PT yesterday and hopes to transfer to [facility] for ongoing PT later today Review of Systems Constitutional: + weakness; no fever Eyes: no problem reported Ear, Nose, Mouth, Throat: no problem reported Respiratory: no cough and no dyspnea Cardiovascular: no chest pain, no palpitations and no edema Gastrointestinal: no abdominal pain, no nausea, no vomiting and no diarrhea/loose stools Genitourinary: no dysuria (performs CIC due to neurogenic bladder) Integumentary: no rash Neurologic: no confusion Physical Exam Constitutional: + frail appearing; not in distress Eyes: PERRL, conjunctivae normal, anicteric sclerae ENMT: external ear and nose normal, oropharynx normal Neck: trachea midline, no thyromegaly Respiratory: normal respiratory effort, lungs clear to auscultation Cardiovascular: Rate/Rhythm: regular rate and regular rhythm Heart Sounds: + murmur Extremities: + edema (1+ pretibial pitting edema) Gastrointestinal (Abdomen): normal bowel sounds, soft, nontender, no hepatosplenomegaly Neurologic: awake; not confused Psychiatric: A+Ox3, euthymic affect Results & Data ([facility]) Vital Signs (Past 12 Hours) Vital Signs Temp Pulse Resp BP Pulse Ox 08/01/21 07:20 36.7 C 77 18 135/83 96 Laboratory Results Laboratory Tests 08/01/21 07:28 Sodium 140 Potassium 3.6 Chloride 111 H Carbon Dioxide 21 BUN 57 H Creatinine 4.10 H Glucose 87 PG Care Time/CCT Total # of Minutes Spent Total Time Spent with Patient: Total time spent is greater than 50% in coordination of care (as documented) at patient's floor/unit and/or counseling patient: Coding Level of Care Code 95611 Subseq Hosp Care Lvl 3 Diagnoses Chronic kidney disease, stage IV (severe) N18.4 Hypertension I10 Hypertension type: essential hypertension Anemia due to chronic kidney disease N18.9; D63.1 Sacral decubitus ulcer, stage IV L89.154 Lumbar spinal stenosis M48.061 (1) Hypertension Hypertension type: essential hypertension Qualified Code(s): I10 - Essential (primary) hypertension
--- NOTE | 2021-08-01 19:47 | Discharge Summary ---
Date of Service August 01, 2021 Admission HPI Per Admitting Provider This patient is a 75-year-old male with a history of CKD stage IV, atrial fibrillation on Eliquis, neurogenic bowel and bladder with self cath, stage IV sacral decubitus ulcer with wound VAC in place, anemia of chronic kidney disease, HTN, hyperlipidemia, chronic back pain with lumbar spinal stenosis, lumbar spinal cysts and left lumbar radiculopathy, and 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 He is not able to ambulate at this point and also his renal function has been worsening in the last 2 weeks with creatinine up to almost the 5.0 range from a baseline of 3.8. He reports the fall was more like a gradual letdown of his body onto the bed and he did not have any acute injuries. He slept all night in bed and could not get out of bed this morning. He had EMS picked him up and bring him to the hospital. His pain is severe in the lower back and radiating to the left hip and left thigh down to the knee. He also noticed that he has had worsening weakness especially with his left ankle and foot since yesterday. He reports he was supposed to have surgery on his lumbar spine, but the surgeon at [facility] does not want to do the procedure until his sacral ulcer is healed. He also reports he was scheduled to see pain management, Dr. Hidalgo, for the first time next week to see if there is anything she can offer in the meantime. He reports that p.o. tramadol does not help him at all, even the 1 mg of IV morphine he received here so far is not helping. He continues to have severe spasms in the left thigh and hamstring. Otherwise in ROS, denies shortness of breath or chest pain, no nausea or vomiting, no diarrhea or constipation, no abdominal pains. No urinary symptoms. Principal Diagnosis 1. Sacral decubitus ulcers/p excisional debridement down to bone 2. Osteomyelitis of the sacrum 3. BacteremiaE. coli, alpha strep (not enterococcus) and Bacteroides 4. Sepsis syndrome 6. Ambulatory dysfunction Discharge Exam General: Resting comfortably in his hospital bed. Does not appear ill or toxic. NAD. HEENT: Head is AT/NC buccal mucosa is moist and pink Neck: No JVD. Negative hepatojugular reflex Cardiac: RRR with 2/6 IVA Lungs: CTA without W/R/R Abdomen: Normoactive X4. Soft and nontender in all quadrants. Extremities: PICC line to right upper extremity Neuro: A&O X4 cranial nerves II through XII are grossly intact no focal neuro deficits Skin: No obvious skin lesions or rashes Psych: Appropriate affect pleasant and cooperative Discharge Data Allergies Allergy/AdvReac Type Severity Reaction Status Date / Time tetracycline Allergy Intermediate HIVES Verified 07/25/21 06:58 morphine AdvReac Mild Nausea Verified 07/25/21 06:58 Consultations 07/13/21 10:59 ED Decision to Admit Stat 07/13/21 12:16 Consult Nephrology Routine Consult Orthopedic Surgery Routine Consult Pain Management Routine 07/18/21 18:07 Consult General Surgery Routine 07/25/21 14:54 Consult Infectious Diseases Routine Procedures Performed Operation Date: 07/23/21 07:30 Actual Procedures p Excisional Debridement of Sacral Decubitus Ulcer Down to Bone 8cm x 8cm(Not A pplicable) - Ranjeet Myers DO Operation Date: 07/25/21 07:30 Actual Procedures p Excisional Debridement of Sacral Decubitus Ulcer Down to Bone, 11cm x 10cm(Not Applicable) - Ranjeet Myers DO Ordered Studies 07/13/21 09:31 CT lumbar spine wo con Stat Hospital Course (1) Sacral decubitus ulcer, stage IV: Status post debridement x 3 (most recent 07/25 excisional debridement down to the sacrum completed by Dr. Myers)--> debridement down to done d/t osteomyelitis - Continue local wound care as outlined by GS and factorer-- wound vac placed prior to D/C - on air mattress - Wound culture: E. coli (pansensitive), Alpha Strep (no enterococcus), Bacteroides Fragilis--> now on Rocephin and Flagyl, plan for 6 weeks from last debridement 07/25 last day of antibiotics would be 09/06/21 - seen by ID-- appreciate his input (2) Osteomyelitis of sacrum: - Plan as per #1 - Per UTD, will require at least 6 weeks of IV antibiotic therapy after last debridement which was 07/26 (to complete 09/06/21) - PICC line in place to RUE (following clearance of blood cultures) - Initially on Zosyn upfront (empirically). Transitioned to Rocephin and Flagy l--last day would be 09/06/21 (3) Bacteremia: - See plan 1,2 - initially with positive BC for Bacteroides - on IV abx therapy as outlined above - BC cleared on 07/26 (no growth x5 days at this time) (4) UTI (urinary tract infection) due to Enterococcus: - Urine culture confirmed enterococcus faecalis, see above - completed full course of Dapto then Amoxil (5) Sepsis: - RESOLVED (6) Ambulatory dysfunction: 2 different processesbiomechanical pain in the region of his piriformis, as well as lumbar radiculopathy that seems to fit with his L1 problem. - Pain control, OMT, PT/OT eval and treatdue to fall risk and only his able to support him at home, they both prefer to try skilled with rehab emphasis as his disposition from the hospital - Continue oral analgesics. Lidoderm patch ordered to be placed across the lumbar sacral region. Fentanyl patch discontinued on 07/21 - Case management on board -- ?Lorena or Jorge. Medically stable for discharge after insertion of PICC line and set up with wound VAC (7) Lumbar spinal stenosis: - Appreciate pain management input for pain control, not a surgical candidate at this time due to his sacral ulcer. - Pain control seems to be doing better overall, and really his only persistent pain is that L1/2 radiculopathy, but even that seems better than before. - Continue PT/OT - Still awaiting placement (SNF/rehab emphasis) given that he is too weak to be safe at home at this time. (8) MARINO (acute kidney injury): - Likely was a bit dry on admissionnot eating and drinking as well as he normally does, but was still taking his Lasix. - Lasix has been on hold given A/CKD. creatinine appears to be at a relatively steady state in the low 4 range (likely new baseline)--> uncertain if lasix is needed at this time (euvolemic at this time)-hold lasix upon discharge - Other electrolytes remained stable. Patient continues to have urine output. - Nephrology following-- appreciate recommendations, f/u with Nephro after discharge (9) Diarrhea: -Likely antibiotic associated -Added probiotic and yogurt with live cultures in addition to colestipol (10) Chronic kidney disease, stage IV (severe): As above - creatinine in the 4's (likely baseline at this time) - Renally dose medications when appropriate - Avoid nephrotoxins - Holding home Lasix 40 mg daily for acute kidney injury as above -- uncertain if this is needed at this time - Pt is heading to [facility] - May need to consider placement of a AV fistula now with anticipation of [facility] in the near future (11) Anemia due to chronic kidney disease: Acute on chronic anemia - Hemoglobin lower than previousalthough still likely overall relates to CKD - It does seem that he receives darbepoetin monthly with nephrology - IV iron ordered by nephrology days ago but not placed on oral daily supplementation - started oral FeSO4 supplementation - Transfused 2 units of PRBCs on 07/23, given another 2 units 07/24, hgb stable since, it is 10.7 07/27 - Epogen dose ordered by nephrology on 07/25 (12) Neurogenic bowel: - Does not follow specific bowel regimen but does move his bowels every 3 to 4 days - MiraLAX as needed (13) Sleep apnea: - Patient reports he is tolerating his CPAP. It is noted to be at bedside. Patient specifically questioned about facial hair. He states that he gets a good seal. 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 Marroquin (19) Hypertension: - Blood pressure is reasonable. Continue to follow - continue Minoxidil and Norvasc as prior to hospitalization (was held when he was hypotensive from sepsis) (20) Hyperlipidemia: - Continue statin Total Time Total Time Spent Total Time Spent (In Minutes): 45 Discharge Plan Discharge Items Patient Disposition: Transfer Correction Fac Reason For Visit: LUMBAR RADICULOPATHY Discharge Diagnosis: 1. Sacral Wound with associated Osteomyelitis s/p Debridement (E.Coli, Alpha Strep- not enterococcus, Bacteroides) 2. Bacteremia- resolved/treated with antibiotics 3. UTI (Enterococcus)- treated and resolved 4. Acute/Chronic- ESRD Activity: As commented below Activity Comment: offload pressure to sacral wounds as able Non-emergency contact: Primary Care Provider and Specialist Call non-emergency contact if: you have any medication questions Follow-up/Referrals: Jasiel Pineda DO [Primary Care Provider] - Diet: Dialysis Renal Addtl Attending Provider Instructions: - patient initially presented to the hospital with worsening back pain. - developed sepsis syndrome (low blood pressure, fever and elevated heart rate) - he was subsequently found to have an infected sacral wound with associated Osteomyelitis - he was seen by infectious disease who is recommending: -- Rocephin 2G IV daily x 6 weeks (last dose to complete on 09/06/21) -- Flagyl 500mg PO q8h x6 weeks (last dose on 09/06/21) - PICC line care with routine flush per protocol - PICC line to be removed following completion of IV antibiotics (at discretion of House Physician) - follow up with House Physician within 24-48 hours - follow up with Wound clinic - follow up with General Surgery: 1-2 weeks Please follow up in the wound care center for follow up management of your sacral wound: KCI wound VAC to sacral wound. Trained nurse to apply/change as per protocol. Irrigate wound with saline using 35 cc syringe and 18-gauge blunt needle. Apply skin prep to periphery. Apply ostomy seal along distal edge to facilitate seal. Allowed to dry. Apply drape to periphery and bridge TRAC pad to lateral hip. Adaptic touch to wound bed. Fill with black foam (Gradually make foam smaller with each dressing change) bridging to lateral hip. Seal and apply TRAC pad. Set VAC to -125 mmHg continuous mode. Change every Friday, Friday, and Friday and as needed to maintain therapy. If VAC fails and are unable to fix dressing, remove all pieces of foam and Adaptic, irrigate wound with saline. Fill with Aquagel and secure with Optifoam. Change daily and as needed until VAC can be replaced. Replace VAC dressing as soon as possible. Recommend sitting to chair only for meals. Should have pressure redistribution chair cushion and mattress. Patient to follow-up with the wound clinic 08/06/2021 at 1 PM Call wound clinic at [phone] for any questions/concerns. Pending Studies at Discharge: No Stand-Alone Forms: My [facility] Skilled Items Patient informed of condition?: Yes DNR: No Discharge Level of Care: Skilled Communicable Disease: No Discharge Prognosis: Improving Lines: PICC Urinary Catheter: No Medications and DC Order Prescriptions: New metronidazole 500 mg Tablet 500 mg PO TID 45 Days Qty: 135 RF: 0 lidocaine 5 % Adhesive Patch,Medicated 1 patch transdermal QAM Qty: 30 RF: 0 metoprolol succinate 25 mg Tablet Extended Release 24 Hr 25 mg PO QAM Qty: 30 RF: 0 ferrous sulfate 325 mg (65 mg iron) Tablet,Delayed Release (Dr/Ec) 325 mg PO BIDM Qty: 60 RF: 0 Saccharomyces boulardii [Florastor] 250 mg Capsule 250 mg PO BID 60 Days Qty: 120 RF: 0 ceftriaxone 2 gram recon soln 2 g IV DAILY Qty: 10 RF: 0 colestipol 1 gram tablet 1 g PO TID PRN (Reason: diarrhea) Qty: 60 RF: 0 Continued duloxetine 30 mg capsule,delayed release(DR/EC) 30 mg PO QAM RF: 0 multivitamin with minerals tablet 1 tab PO QAM RF: 0 azelastine 0.15 % (205.5 mcg) spray,non-aerosol 1 spray INTNAS HS PRN (Reason: seasonal allergies) Qty: 30 RF: 2 minoxidil 10 mg tablet 10 mg PO QAM Qty: 90 RF: 3 sodium bicarbonate 650 mg tablet 650 mg PO BID Qty: 180 RF: 3 atorvastatin [Lipitor] 20 mg tablet 20 mg PO QPM RF: 0 Aranesp (in polysorbate) 60 mcg/0.3 mL syringe 60 mcg subcut MONTHLY RF: 0 cholecalciferol (vitamin D3) [Vitamin D3] 50 mcg (2,000 unit) Tablet 50 mcg PO QPM RF: 0 amlodipine [Norvasc] 5 mg tablet 5 mg PO QAM RF: 0 acetaminophen [Tylenol Extra Strength] 500 mg Tablet 1,000 mg PO DIRECTED PRN (Reason: Pain) RF: 0 metronidazole [Metrogel] 1 % gel 1 applic topical DIRECTED RF: 0 Eliquis 2.5 mg tablet 2.5 mg PO BID RF: 0 tramadol 50 mg Tablet 50 mg PO Q6H PRN (Reason: Pain) Qty: 30 RF: 0 alprazolam 0.25 mg tablet 0.25 mg PO DAILY PRN (Reason: anxiety) Qty: 60 RF: 0 Discontinued metoprolol succinate [Toprol XL] 50 mg tablet extended release 24 hr 50 mg PO QAM Qty: 90 RF: 3 methenamine hippurate 1 gram tablet 1 g PO QAM Qty: 90 RF: 3 furosemide 40 mg tablet 40 mg PO QAM Qty: 90 RF: 3 calcitriol 0.25 mcg Capsule 0.25 mcg PO QAM RF: 0 Discharge Orders: Discharge Order (Routine); Ordered 08/01/21 Ordered By: Noemy Mcfarland Admission Data Admit Date/Time: 07/13/21 12:26 Attending Provider: Angela Martin Admit Provider: Angela Martin Primary Care Provider: Jasiel Pineda Other Providers: Wilson Carrillo [facility] ; [facility] ; Martha Alanis ; Angela Martin ; Carrillo Tony ; Antonio Gilmore ; Noemy Hidalgo ; Ranjeet Myers ; Jesus Juarez ; Jamin Young ; Jose Melton I. ; Chas Moss II ; Sia Souza ; Abram Gonzalez ; Mikey Mark Other Interventions: Discharge Summary Assessment (RN) Last Done: 08/01/21 15:44 Supervising Physician Co-Signing Physician Notes PA Supervision Note: I personally saw and examined the patient. I verified all [place] points and agree with BRIGIDO Mcfarland with the following exceptions and/or additions: S-Pt feeling well, pain in back and leg significantly improved since admission. Wound vac in place and ready for discharge to rehab. Denies abd pains, diarrhea, CP, SOB. O- Vitals reviewed Gen: [AAOx3, NAD] HEENT: [anicteric sclerae, EOMI] CV: [irreg irreg, normal rate, 2/6 IVA at left sternal border] Pulm: [CTAB no wcr] Abd: [+BS soft NT ND no masses or hernias] Ext: [no edema] Skin: [no rashes, warm/dry] A/P-76 yo male here with LLE radiculopathy, ambulatory dysfunction, Stage 4 sacral decubitus and OM, bacteremia. Improving, continue IV abx and po flagyl, needs rehab continue wound vac Coding Level of Care Code D/C DAY MANAGEMENT >30 MINS Diagnoses Sacral decubitus ulcer, stage IV L89.154 Osteomyelitis of sacrum M46.28 Bacteremia R78.81 UTI (urinary tract infection) due to Enterococcus N39.0; B95.2 Sepsis A41.9 Ambulatory dysfunction R26.2 Lumbar spinal stenosis M48.061 MARINO (acute kidney injury) N17.9 Diarrhea R19.7 Chronic kidney disease, stage IV (severe) N18.4 Anemia due to chronic kidney disease N18.9; D63.1 Neurogenic bowel K59.2 Sleep apnea G47.30 Vitamin D deficiency, unspecified E55.9 Neurogenic bladder N31.9 Anxiety F41.9 Atrial fibrillation I48.2 Atrial fibrillation type: permanent Abdominal aortic aneurysm I71.4 Presence of rupture: without rupture Hypertension I10 Hypertension type: essential hypertension Hyperlipidemia E78.5
--- NOTE | 2021-08-16 10:12 | Operative Report ---
PG Post Operative Report Pre & Post Diagnosis Operation Date: 07/25/21 07:30 Pre-Op Diagnosis: Sacral Decubitus Ulcer, Stage IV, Sacral Osteomyelitis Post-Op Diagnosis: Sacral Decubitus Ulcer, Stage IV, Sacral Osteomyelitis I identified the patient and participated in the time-out.: Yes Procedure Operation Date: 07/25/21 07:30 Actual Procedures p Excisional Debridement of Sacral Decubitus Ulcer Down to Bone, 11cm x 10cm(Not Applicable) - Ranjeet Myers DO Surgeon Ranjeet Myers DO Street Vendor Alicia Barajas PA-C Estimated Blood Loss 30 Findings Consistent with Post-Op Diagnosis Specimens None Drains None Anesthesia Type General Complications none Disposition Disposition: Recovery Room Indications 76 yo male with sacral wound in need of further debridement Description of Procedure The patient was brought to the operating room and underwent general endotracheal anesthesia without issue. At this time the patient was placed in the prone jackknife position. The buttocks and lower back were prepped and draped in the usual sterile fashion. Appropriate pre-operative antibiotics were administered. A timeout was called. The procedure was verified as Excisional debridement of sacral ulcer. Surgical, anesthesia and nursing teams agreed and the procedure was begun. The sacral wound was explored and the previous undermining was not present. There remained scattered areas of necrotic subcutaneous tissue and muscle that was excised using electrocautery. Using a rongeur some more of the friable sacrum was excised. Healthy bleeding tissue was encountered. The wound was irrigated until clear. At this time hemostasis was achieved using electrocautery. Hemostasis was complete. At this time the incision was packed with a wet-to-dry saline Kerlix and covered with a sterile dressing. At this time the patient was awakened from anesthesia and extubated having remained stable throughout the entire case and transported to PACU in stable condition. The physician periodontal assistant was present and scrubbed for the entire case. She was essential in positioning, prepping and draping the patient, retraction and ex posure and placement of the dressing. I attest to the content of the Intraoperative Record and any orders documented therein. Any exceptions are noted below.
== END 2021-08-01 17:30 | DRG 579 ==
LOC: ED 09:21 → EDINP 12:26 → SUATTDRO 12:26 → 2S 13:27 → 3E 07-14 18:03 → 2S 07-22 16:07 → 3N 07-26 22:04

== ENCOUNTER 2021-12-17 21:26 | Inpatient (IN) ==
[2021-12-17] MEDS ORDERED: SODIUM CHLORIDE 0.9% 1000ML 1,000 ML IV ONE (22:35)
[2021-12-17 23:09] LABS: Basophils # (auto) 0.04 K/uL (0-0.2); Basophils % (auto) 0.6 %; Eosinophils # (auto) 0.19 K/uL (0-0.5); Hematocrit (blood only) 22.3 % (42-52); Hemoglobin 7.2 g/dL (14.0-18.0); Immature Granulocytes # (auto) 0.01 K/uL (0.00-0.02); Immature Granulocytes % (auto) 0.2 %; Lymphocytes % (auto) 7.8 %; Mean Corpuscular Hemoglobin 31.2 pg (25-34); Mean Corpuscular Hgb Conc 32.3 g/dL (32-36); Mean Corpuscular Volume 96.5 fL (80-100); Mean Platelet Volume 8.6 fL (7.4-10.4); Monocytes # (auto) 0.79 K/uL (0.11-0.59); Monocytes % (auto) 12.3 %; Neutrophils # (auto) 4.89 K/uL (1.4-6.5); Neutrophils % (auto) 76.1 %; Platelet Count 227 K/uL (130-400); RDW Coefficient of Variation 14.6 % (11.5-14.5); RDW Standard Deviation 52.1 fL (36.4-46.3); Red Blood Count 2.31 M/uL (4.7-6.1); White Blood Count 6.42 K/uL (4.8-10.8)
[2021-12-17 23:20] LABS: Albumin Globulin Ratio 1.2 (0.9-2); Albumin Level 3.7 gm/dl (3.4-5.0); BUN Creatinine Ratio 25.2 (10-20); Bilirubin,Total 0.4 mg/dl (0.2-1.0); Calcium 8.5 mg/dl (8.5-10.1); Creatinine Clr Calc Pharmacy 20.3 ml/min; Est GFR (African American) 14.9 ml/min; Est GFR (Non-African American) 12.9 ml/min; Magnesium 2.6 mg/dl (1.7-2.4); Phosphorus 5.8 mg/dl (2.5-4.9); Potassium 4.2 mmol/L (3.5-5.1); Total Protein 6.7 gm/dl (6.0-8.3)
[2021-12-17 23:23] LABS: Troponin I High Sensitivity 29.8 pg/ml (0-20)
[2021-12-17 23:31] LABS: Acanthocytes 1+
[2021-12-18 00:25] LABS: Appearance Urine Cloudy (Clear); Bacteria Urine Automated 1+ (Negative); Bilirubin Urine Negative (Negative); Blood Urine Trace (Negative); Color Urine Yellow; Glucose Urine UA Negative (Negative); Ketones Urine Negative (Negative); Leukocyte Esterase Urine 2+ (Negative); Nitrite Urine Positive (Negative); Protein Urine 1+ (Negative); RBC Urine Automated 0-4 /hpf (0-4); Specific Gravity Urine 1.012 (1.000-1.030); Urobilinogen Urine Negative (Negative); WBC Urine Automated >30 /hpf (0-5)
--- NOTE | 2021-12-18 00:37 | Emergency Department Note ---
Impression & Plan Weakness generalized, CKD (chronic kidney disease), Metabolic acidosis, Sacral decubitus ulcer, stage IV ED Provider Note NAME: JENNIFER STAPLETON AGE: 76 SEX: M ARRIVES VIA: Ambulance INFORMANT: Patient, ED PROVIDER(S): Jonathan Ricci MD CHIEF COMPLAINT: Weakness, fall PLAN: Disposition: Admit MEDICAL DECISION MAKING: The patient is a pleasant 76-year-old gentleman with a past medical history of CKD, lumbar stenosis, ambulatory dysfunction, neurogenic bladder, A. fib on Eliquis, hyperlipidemia, osteomyelitis of the sacrum with sacral decubitus ulcer followed by wound clinic with wound VAC who presents to the emergency department via EMS and eventually accompanied by his for evaluation of worsening generalized weakness which led to the patient having a slow controlled fall prior to arrival when transferring from his wheelchair to his assist device but slid down onto the ground. He denies head strike or loss of consciousness. He denies any new pain from his baseline chronic back pain. The patient's symptoms/weakness occurs in the setting of the patient's chronic immobility since June and they report of progressive fluid retention over the past month with increased edema bilateral lower extremities despite having increased their diuretic per their follow-up with their cardiology office. Patient's reports that he had low-grade "fever" to 99.8 yesterday but worries that when he was septic in the past this was his temperature. The patient denies any cough, congestion, chest pain, shortness of breath. They report that they continue to follow with the wound clinic for his sacral ulcer and report that it has gradually been improving. They report that any surgery that may be considered for his spine is dependent on healing of his sacral wound. They report they recently had a wound culture performed and this had no growth. They do feel that his weakness and edema has reached a point where he is difficult to manage at home and do feel that admission and placement in long-term is likely neede d. On arrival the patient is chronically ill-appearing but no acute distress, afebrile with stable vital signs. Patient has dry mucous membranes. However 2+ bilateral lower extremity edema. His left lower extremity paresis is at baseline. Patient's sacral wound VAC is in place and intact without surrounding erythema warmth or tenderness of the unstageable ulcer. without overt acute ischemia. Chest x-ray negative for acute cardiopulmonary process per my preliminary review. Plain films of the pelvis and left hip with bilateral THAs present. Subtle cortical irregularity of left hip lesser trochanter. No overt fracture or dislocation per my preliminary review. WBC and platelets within normal limits. H/H 7.2/22.3 within prior range of values. Chemistry with bicarbonate of 17 that is similar to prior range of values with creatinine of 4.21 also within prior range of values. Lactic acid 1.4, within normal limits. Procalcitonin is not elevated. High-sensitivity troponin 29.8, mildly elevated nonspecific. BNP 485, nonspecific in the setting of the patient's CKD. Lipase is 88, marginally elevated, nonspecific. Covid-19 RNA, NAAT negative. Given the patient's worsening renal function with possible RTA setting of the patient's hypervolemia we will defer further treatment to admitting team. UA did result and did have WBCs and 1+ bacteria albeit with epithelial cells present. Will defer decision to treatment to admitting team. Given the patient's worsening functional status at home we will proceed with admission for patient and 's preference. Case was discussed with Dr. Hay, [facility] hospitalist, who will evaluate the patient for admission. Triage Nursing notes reviewed and agree them. Prior medical records reviewed Vital Signs: reviewed and remarkable for no significant abnormalities Differential diagnosis: Infection, dehydration, metabolic abnormality, hypo/hyperglycemia, electrolyte disturbance, anemia, hypoxia, cardiac sources, intracerebral event, toxicologic, neurologic, as well as other pathologies. ER treatment provided: See below. Diagnostics interpreted by me: ECG: Atrial fibrillation, 73 bpm, competing junctional pacemaker, left anterior fascicular block, no overt ST elevation or depression, QTC 467, QRS 122. Cardiac Monitoring: An order for continuous cardiac monitoring was placed and demonstrated Atrial fibrillation, 73 bpm, competing junctional pacemaker. Laboratory studies: See below Imaging studies: See below Consultation(s): Case was discussed with Dr. Hay [facility] hospitalist, who will evaluate the patient for admission. HPI: The patient is a pleasant 76-year-old gentleman with a past medical history of CKD, lumbar stenosis, ambulatory dysfunction, neurogenic bladder, A. fib on Eliquis, hyperlipidemia, osteomyelitis of the sacrum with sacral decubitus ulcer followed by wound clinic with wound VAC who presents to the emergency department via EMS and eventually accompanied by his for evaluation of worsening generalized weakness which led to the patient having a slow controlled fall prior to arrival when transferring from his wheelchair to his assist device but slid down onto the ground. He denies head strike or loss of consciousness. He denies any new pain from his baseline chronic back pain. The patient's sympt oms/weakness occurs in the setting of the patient's chronic immobility since June and they report of progressive fluid retention over the past month with increased edema bilateral lower extremities despite having increased their diuretic per their follow-up with their cardiology office. Patient's reports that he had low-grade "fever" to 99.8 yesterday but worries that when he was septic in the past this was his temperature. The patient denies any cough, congestion, chest pain, shortness of breath. They report that they continue to follow with the wound clinic for his sacral ulcer and report that it has gradually been improving. They report that any surgery that may be considered for his spine is dependent on healing of his sacral wound. They report they recently had a wound culture performed and this had no growth. They do feel that his weakness and edema has reached a point where he is difficult to manage at home and do feel that admission and placement in long-term is likely needed. ROS: See above HPI for pertinent positives & negatives. A total of 10 systems reviewed and were otherwise negative. VITALS:See Below PHYSICAL EXAMINATION: GENERAL: Awake, alert, chronically ill-appearing, in no distress HENT: Normocephalic, atraumatic. Oropharynx with dry mucous membranes and otherw ise unremarkable. EYES: Normal conjunctiva. Sclera non-icteric. NECK: Supple. No nuchal rigidity. FROM. No JVD. RESPIRATORY: Clear to auscultation. CARDIAC: Regular rate, irregular rhythm. Extremities warm and well perfused. Pulses equal. ABDOMEN: Soft, non-distended. No tenderness to palpation. No rebound or guarding. No masses. RECTAL: Deferred. MUSCULOSKELETAL: Chest examination reveals no tenderness. The back is symmetrical on inspection without obvious abnormality. There is no CVA tenderne ss to palpation. No joint edema. LOWER EXTREMITIES: Calves are equal size bilaterally and non-tender. 2+ BLE edema. No discoloration. NEURO: Generalized weakness with Left lower extremity paresis at patient's baseline. SKIN: Patient's sacral wound VAC is in place and intact without surrounding er ythema warmth or tenderness of the unstageable ulcer. No jaundice noted. Jonathan Ricci MD Past Med/Surg History Medical History Abdominal aortic aneurysm (~2014) S/p Type A dissection with emergent repair in 2014 Later found to have AAA 3.5cm- followed by vascular surgery with medical management Anemia due to chronic kidney disease Anxiety Atrial fibrillation Follows with [facility] cardiology (Dr. Jarvis) On Eliquis BPH with obstruction/lower urinary tract symptoms DENIES ENLARGED PROSTATE Chronic kidney disease, stage IV (severe) Follows with [facility] urology, nephrology/under surveillance, no dialysis at this time History of CHF (congestive heart failure) 2003 Hyperlipidemia Hypertension Lumbar spinal stenosis Metabolic acidosis Neurogenic bladder Self Catheterization since Aortic repair Neuropathic pain PTSD (post-traumatic stress disorder) POST AORTIC DISSECTION Sleep apnea CPAP Spinal cord cysts Pt states L1 and L2, dx 05/2021, by Dr. 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 History of revision of total hip arthroplasty left History of rhinoplasty History of tooth extraction History of total knee replacement RT History of total left hip arthroplasty (~12/2019) History of transurethral resection of prostate Nausea and vomiting after administration of anesthetic agent S/P debridement (06/27/21) Excisional Debridement Sacral Decubitus Ulcer down to muscle level 4cm x 6cm - Ranjeet Myers, DO 06/27/2021 Excisional Debridement of Sacral Decubitus Ulcer Down to Bone, 11cm x 10cm(Not Applicable) - Ranjeet Myers, 07/25/2021 S/P total right hip arthroplasty Family History Grandmother Family history of diabetes mellitus Mother Gallbladder disease Father Prostate cancer Myocardial infarction Hypertension Other Family history non-contributory No family history of adverse response to anesthesia Denies family history of Ovarian cancer Breast cancer Colorectal cancer Social History Smoking Status: Smoker, status unknown Second Hand Exposure: No (hx -- used to smoke); Hx Alcohol Use: No Hx Substance Use: No Preferred Language: Urdu Communication Ability: Effective Visual Impairment: Limited Hearing Ability: Normal Floating Operator Required: No Beliefs That Will Affect Care: None marital status: Current Living Situation: Spouse Current Living Situation Comment: Lives with at home current occupational status: retired How many Children do You have: 1 Feels Safe at Home: Yes Childhood Exposure to Second-Hand Smoke: Yes (father did ) Diet Comment: low sugar, low phospate caffeine: Yes (tea) during the past year weight has: remained stable Dental Care, Regularly: Yes Physical Activity Frequency: Does not Exercise Physical Activity Frequency Comment: goes to PT twice a week Seatbelt Use: always Sunscreen Use: Yes Do you think of yourself as: straight/heterosexual Gender Identity: Male Assistive Devices: Glasses Allergies Allergies Allergy/AdvReac Type Severity Reaction Status Date / Time tetracycline Allergy Intermediate HIVES Verified 12/17/21 22:19 morphine AdvReac Intermediate Nausea Verified 12/17/21 22:19 Home Meds Home Medications Medication Instructions Recorded Confirmed multivitamin with minerals 1 tab PO QAM tab 04/06/18 12/17/21 cholecalciferol (vitamin D3) 50 50 mcg PO QPM 12/31/19 12/17/21 mcg (2,000 unit) tablet (Vitamin D3) atorvastatin 20 mg tablet (Lipitor) 20 mg PO QPM tab 05/11/21 12/17/21 acetaminophen 500 mg tablet 1,000 mg PO DIRECTED PRN 07/13/21 12/17/21 (Tylenol Extra Strength) gabapentin 100 mg capsule 300 mg PO BID cap 11/14/21 12/17/21 furosemide 40 mg tablet 40 mg PO DAILY tab 12/05/21 12/17/21 Previous Rx's Medication Instructions Recorded azelastine 205.5 mcg (0.15 %) 1 spray INTNAS HS PRN #30 ml 09/04/20 nasal spray minoxidil 10 mg tablet 10 mg PO QAM #90 tab 12/18/20 sodium bicarbonate 650 mg tablet 650 mg PO BID #180 tab 07/04/21 alprazolam 0.25 mg tablet 0.25 mg PO DAILY PRN #60 tab 08/01/21 colestipol 1 gram tablet 1 g PO TID PRN #60 tab 08/01/21 ferrous sulfate 325 mg (65 mg 325 mg PO BIDM #60 tab 08/01/21 iron) tablet,delayed release metoprolol succinate 25 mg 25 mg PO QAM #30 tab 08/01/21 tablet,extended release 24 hr hydrocodone 5 mg-acetaminophen 325 1 tab PO BID PRN #60 tab 09/25/21 mg tablet calcium polycarbophil 625 mg 1,250 mg PO DAILY #60 tab 09/26/21 tablet (FiberCon) methenamine hippurate 1 gram tablet 1 g PO DAILY #30 tab 09/27/21 duloxetine 30 mg capsule,delayed 30 mg PO QAM #90 cap 10/25/21 release apixaban 2.5 mg tablet (Eliquis) 2.5 mg PO BID #180 tab 12/13/21 Results & Data (ED) Vital Signs Vital Signs - 24 hr 12/17/21 21:34 12/18/21 00:13 Temperature 37.2 C Temperature Source Oral Pulse Rate 81 Pulse Rate [Apical] 78 72 Pulse Rhythm [Apical] Regular Respiratory Rate 16 17 Respiratory Effort / Characteristics Non-Labored Spontaneous Respiratory Depth Normal Normal Blood Pressure 113/55 L Blood Pressure [Left Arm] 113/55 L 108/69 Blood Pressure Mean 74 Blood Pressure Mean [Left Arm] 74 82 Blood Pressure Position [Left Arm] Sitting Pulse Oximetry 96 98 Oxygen Delivery Method Room Air Room Air Sepsis Recent Fever Within 48 Hours No Sepsis New/Unexplained Change in Mental Status No Sepsis Action Taken by Nursing No Action Required Laboratory Data Attestation: I reviewed the patient's lab results. Result diagrams: 12/17/21 21:35 12/17/21 21:35 Lab Results 12/17/21 12/17/21 12/17/21 Range/Units 21:35 21:35 21:35 WBC 6.42 (4.8-10.8) K/uL RBC 2.31 L (4.7-6.1) M/uL Hgb 7.2 L (14.0-18.0) g/dL Hct 22.3 L (42-52) % MCV 96.5 (80-100) fL MCH 31.2 (25-34) pg MCHC 32.3 (32-36) g/dL RDW Std Deviation 52.1 H (36.4-46.3) fL RDW Coeff of Hector 14.6 H (11.5-14.5) % Plt Count 227 (130-400) K/uL MPV 8.6 (7.4-10.4) fL Immature Gran % (Auto) 0.2 % Neut % (Auto) 76.1 % Lymph % (Auto) 7.8 % [place] % (Auto) 12.3 % Eos % (Auto) 3.0 % Baso % (Auto) 0.6 % Neut # (Auto) 4.89 (1.4-6.5) K/uL Lymph # (Auto) 0.50 L (1.2-3.4) K/uL [place] # (Auto) 0.79 H (0.11-0.59) K/uL Eos # (Auto) 0.19 (0-0.5) K/uL Baso # (Auto) 0.04 (0-0.2) K/uL Immature Gran # (Auto) 0.01 (0.00-0.02) K/uL Acanthocytes (Spur) 1+ Sodium 132 L (136-145) mmol/L Potassium 4.2 (3.5-5.1) mmol/L Chloride 102 (98-107) mmol/L Carbon Dioxide 17 L (21-32) mmol/L Anion Gap 13 H (3-11) BUN 106 H (6-23) mg/dl Creatinine 4.21 H (0.6-1.4) mg/dl Est Cr Clr Drug Dosing 20.3 ml/min Est GFR ( Amer) 14.9 ml/min Est GFR (Non-Af Amer) 12.9 ml/min BUN/Creatinine Ratio 25.2 H (10-20) Glucose 102 H (70-99(Fasting)) mg/dl Lactate (0.4-2.0) mmol/L Calcium 8.5 (8.5-10.1) mg/dl Phosphorus 5.8 H (2.5-4.9) mg/dl Magnesium 2.6 H (1.7-2.4) mg/dl Total Bilirubin 0.4 (0.2-1.0) mg/dl AST 36 (13-39) U/L ALT 36 (7-52) U/L Alkaline Phosphatase 122 H (34-104) U/L Total Creatine Kinase 83 (30-223) U/L Troponin I High Sens 29.8 H (0-20) pg/ml B-Natriuretic Peptide (0-100) pg/ml Total Protein 6.7 (6.0-8.3) gm/dl Albumin 3.7 (3.4-5.0) gm/dl Globulin 3.0 (2.5-4.0) gm/dl Albumin/Globulin Ratio 1.2 (0.9-2) Lipase 88 H (11-82) U/L Procalcitonin 0.14 (0-0.5) ng/ml Urine Color Urine Appearance (Clear) Urine pH (4.5-7.5) Ur Specific [place] (1.000-1.030) Urine Protein (Negative) Urine Glucose (UA) (Negative) Urine Ketones (Negative) Urine Blood (Negative) Urine Nitrite (Negative) Urine Bilirubin (Negative) Urine Urobilinogen (Negative) Ur Leukocyte Esterase (Negative) Urine WBC (Auto) (0-5) /hpf Urine RBC (Auto) (0-4) /hpf U Hyaline Cast (Auto) (0-5) /lpf U Epithel Cells (Auto) (0-5) /lpf Urine Bacteria (Auto) (Negative) SARS-CoV-2, RNA, NAAT (NEGATIVE) 12/17/21 12/17/21 12/18/21 Range/Units 23:05 23:45 00:01 WBC (4.8-10.8) K/uL RBC (4.7-6.1) M/uL Hgb (14.0-18.0) g/dL Hct (42-52) % MCV (80-100) fL MCH (25-34) pg MCHC (32-36) g/dL RDW Std Deviation (36.4-46.3) fL RDW Coeff of Hector (11.5-14.5) % Plt Count (130-400) K/uL MPV (7.4-10.4) fL Immature Gran % (Auto) % Neut % (Auto) % Lymph % (Auto) % [place] % (Auto) % Eos % (Auto) % Baso % (Auto) % Neut # (Auto) (1.4-6.5) K/uL Lymph # (Auto) (1.2-3.4) K/uL [place] # (Auto) (0.11-0.59) K/uL Eos # (Auto) (0-0.5) K/uL Baso # (Auto) (0-0.2) K/uL Immature Gran # (Auto) (0.00-0.02) K/uL Acanthocytes (Spur) Sodium (136-145) mmol/L Potassium (3.5-5.1) mmol/L Chloride (98-107) mmol/L Carbon Dioxide (21-32) mmol/L Anion Gap (3-11) BUN (6-23) mg/dl Creatinine (0.6-1.4) mg/dl Est Cr Clr Drug Dosing ml/min Est GFR ( Amer) ml/min Est GFR (Non-Af Amer) ml/min BUN/Creatinine Ratio (10-20) Glucose (70-99(Fasting)) mg/dl Lactate 0.4 (0.4-2.0) mmol/L Calcium (8.5-10.1) mg/dl Phosphorus (2.5-4.9) mg/dl Magnesium (1.7-2.4) mg/dl Total Bilirubin (0.2-1.0) mg/dl AST (13-39) U/L ALT (7-52) U/L Alkaline Phosphatase (34-104) U/L Total Creatine Kinase (30-223) U/L Troponin I High Sens (0-20) pg/ml B-Natriuretic Peptide 495 H (0-100) pg/ml Total Protein (6.0-8.3) gm/dl Albumin (3.4-5.0) gm/dl Globulin (2.5-4.0) gm/dl Albumin/Globulin Ratio (0.9-2) Lipase (11-82) U/L Procalcitonin (0-0.5) ng/ml Urine Color Urine Appearance (Clear) Urine pH (4.5-7.5) Ur Specific [place] (1.000-1.030) Urine Protein (Negative) Urine Glucose (UA) (Negative) Urine Ketones (Negative) Urine Blood (Negative) Urine Nitrite (Negative) Urine Bilirubin (Negative) Urine Urobilinogen (Negative) Ur Leukocyte Esterase (Negative) Urine WBC (Auto) (0-5) /hpf Urine RBC (Auto) (0-4) /hpf U Hyaline Cast (Auto) (0-5) /lpf U Epithel Cells (Auto) (0-5) /lpf Urine Bacteria (Auto) (Negative) SARS-CoV-2, RNA, NAAT NEGATIVE (NEGATIVE) 12/18/21 Range/Units 00:05 WBC (4.8-10.8) K/uL RBC (4.7-6.1) M/uL Hgb (14.0-18.0) g/dL Hct (42-52) % MCV (80-100) fL MCH (25-34) pg MCHC (32-36) g/dL RDW Std Deviation (36.4-46.3) fL RDW Coeff of Hector (11.5-14.5) % Plt Count (130-400) K/uL MPV (7.4-10.4) fL Immature Gran % (Auto) % Neut % (Auto) % Lymph % (Auto) % [place] % (Auto) % Eos % (Auto) % Baso % (Auto) % Neut # (Auto) (1.4-6.5) K/uL Lymph # (Auto) (1.2-3.4) K/uL [place] # (Auto) (0.11-0.59) K/uL Eos # (Auto) (0-0.5) K/uL Baso # (Auto) (0-0.2) K/uL Immature Gran # (Auto) (0.00-0.02) K/uL Acanthocytes (Spur) Sodium (136-145) mmol/L Potassium (3.5-5.1) mmol/L Chloride (98-107) mmol/L Carbon Dioxide (21-32) mmol/L Anion Gap (3-11) BUN (6-23) mg/dl Creatinine (0.6-1.4) mg/dl Est Cr Clr Drug Dosing ml/min Est GFR ( Amer) ml/min Est GFR (Non-Af Amer) ml/min BUN/Creatinine Ratio (10-20) Glucose (70-99(Fasting)) mg/dl Lactate (0.4-2.0) mmol/L Calcium (8.5-10.1) mg/dl Phosphorus (2.5-4.9) mg/dl Magnesium (1.7-2.4) mg/dl Total Bilirubin (0.2-1.0) mg/dl AST (13-39) U/L ALT (7-52) U/L Alkaline Phosphatase (34-104) U/L Total Creatine Kinase (30-223) U/L Troponin I High Sens (0-20) pg/ml B-Natriuretic Peptide (0-100) pg/ml Total Protein (6.0-8.3) gm/dl Albumin (3.4-5.0) gm/dl Globulin (2.5-4.0) gm/dl Albumin/Globulin Ratio (0.9-2) Lipase (11-82) U/L Procalcitonin (0-0.5) ng/ml Urine Color Yellow Urine Appearance Cloudy A (Clear) Urine pH 5.0 (4.5-7.5) Ur Specific [place] 1.012 (1.000-1.030) Urine Protein 1+ H (Negative) Urine Glucose (UA) Negative (Negative) Urine Ketones Negative (Negative) Urine Blood Trace H (Negative) Urine Nitrite Positive A (Negative) Urine Bilirubin Negative (Negative) Urine Urobilinogen Negative (Negative) Ur Leukocyte Esterase 2+ H (Negative) Urine WBC (Auto) >30 H (0-5) /hpf Urine RBC (Auto) 0-4 (0-4) /hpf U Hyaline Cast (Auto) 1-5 (0-5) /lpf U Epithel Cells (Auto) 10-20 H (0-5) /lpf Urine Bacteria (Auto) 1+ H (Negative) SARS-CoV-2, RNA, NAAT (NEGATIVE) Administered Medications Discontinued Medications Sodium Chloride (Nss 1000ml) 1,000 mls @ 999 mls/hr IV .[id number] ONE Stop: 12/17/21 23:35 Last Admin: 12/17/21 22:47 Dose: 999 mls/hr Documented by: [id number] Imaging Data My Impression: CXR: No acute cardiopulmonary process per my preliminary review. Pelvis and left hip: Bilateral THAs present. Subtle cortical irregularity of left hip lesser trochanter. No overt fracture or dislocation per my preliminary review. Discharge Plan Visit Data Chief Complaint: Fall Stated Complaint: Fall, Weakness, Edema Discharge Problem: Weakness generalized, CKD (chronic kidney disease), Metabolic acidosis, Sacral decubitus ulcer, stage IV Patient Disposition: Admitted As Inpatient Discharge Instructions Interventions: ED Discharge Assessment Last Done: 12/18/21 02:11 Discharge Problem: CKD (chronic kidney disease) Qualifiers: Chronic kidney disease stage: unspecified stage Qualified Code(s): N18.9 - Chronic kidney disease, unspecified
--- NOTE | 2021-12-18 01:02 | History & Physical Report ---
Date of Service December 18, 2021 Assessment & Plan (1) Weakness generalized: Plan: Guanaco Escobedo is a 76yo male with PMHx significant for CKDIV (Cr baseline ~4), anemia of chronic disease (Hgb range from 7-10), chronic stage IV sacral decubitus ulcer with previous osteomyelitis, a-fib (on Eliquis), HTN, HLD and WEI who presented to [facility] ED on 12/18 for a slow mechanical fall due to generalized weakness. Generalized Weakness; Ambulatory Dysfunction; Deconditioning Progressive symptoms x6 months, since prolonged hospitalization and severe sacral decubitis ulcer. Patient is wheel chair dependent. Possible UTI may have contributed to patient's recent fall although suspect this is more likely due to a chronically progressive process. Chronic anemia likely also contributing to weakness. - hip XR without fracture - PT/OT consults placed - patient may need rehab/SNF placement UTI Asymptomatic but will treat given dirty UA and worsening generalized weakness. - started Ceftriaxone 1g IV Q24H - urine cx pending - adjust based on results - s/p 1L NSS - will give another liter of fluids with LR @80cc/hr Anemia of Chronic Disease; CKDIV Hgb down from 10 --> 7 over last four months. Cr is 4.21 and ~ at baseline. Suspect anemia is largely due to CKD. No s/s active bleeding. Do not susepct hemolysis. - ordered iron profile, B12, folate - consented patient for blood products - transfuse for Hgb <7 - continue home ferrous sulfate 325mg PO BID - continue home NaHCO3 650mg PO BID - trend CBC/BMP/Mg/Phos daily - patient may benefit from Venofer/Epogen injections as outpatient - defer to PCP Stage IV Sacral Decubitus Ulcer; Neuropathy Chronic for >6 months, with h/o osteomyelitis. Currently does not appear infected. Wound vac in place. - wound care consulted - of note, patient has been previously evaluated for flap repair of ulcer and has decided against it - continue home [place] PRN and Gabapentin scheduled Mitral Regurgitation; LE edema MR is chronic diagnosis, with murmur on exam likely due to this. LE edema is also chronic and likely due to venous insufficiency. - will check TTE as there is none since 2019 and patient is getting IVFs - continue home Lasix 40mg PO daily Other Chronic Medical Conditions Atrial fibrillation: rate-controlled. Continue home Eliquis 2.5mg PO BID HTN/HLD: continue home statin WEI: CPAP HS Anxiety: continue home Duloxetine 30mg PO QAM FEN/GI: low-K diet; LR @80cc/hr x1L DVT Prophylaxis: Eliquis Code Status: full code Disposition: med/tele; patient may need SNF/rehab placement (PT/OT consults placed) (2) UTI (urinary tract infection): (3) Chronic kidney disease, stage IV (severe): (4) Anemia due to chronic kidney disease: (5) Atrial fibrillation: (6) S/P revision of total hip: (7) Sacral decubitus ulcer, stage IV: (8) Mitral regurgitation: (9) Sleep apnea: (10) Neuropathic pain: (11) Hypertension: (12) Hyperlipidemia: (13) Anxiety: History of Present Illness Chief Complaint: fall Primary Care Provider: Jasiel Pineda DO Guanaco Escobedo is a 76yo male with PMHx significant for CKDIV (Cr baseline ~4), anemia of chronic disease (Hgb range from 7-10), chronic stage IV sacral decubitus ulcer with previous osteomyelitis, a-fib (on Eliquis), HTN, HLD and WEI who presented to [facility] ED on 12/18 for a slow mechanical fall and subsequent left hip pain. Patient reports that he was getting into bed when he misplaced his hands and slowly fell to the ground, with difficulty getting back up onto his bed due to generalized weakness. Of note patient was hospitalized from 07/13/2021 - 08/01/2021 due to bacteremia due to osteomyelitis of sacrum in context of stage IV sacral decubitus ulcer, with resultant wound vac that has remained since hospitalization. Patient reports slowly progressive generalized weakness over the course of the last 6 months since he was hospitalized. Has been wheel chair dependent with minimal ambulation or other physical activity, besides for twice weekly PT sessions. Denies weight loss or decreased appetite. Patient denies recent illnesses of any kind. Wound care nurse comes twice per week and was just at his house yesterday - had reported that ulcer is continuing to heal over last several months without concern for cellulitis. No fever/chills, chest pain, SOB, runny nose, sore throat, N/V, abdominal pain, diarrhea, dysuria, increased urinary frequency/urgency, or rash. Patient does have chronic LE edema which is not worse recently. No orthopnea or PND. In the ED patient was afebrile and hemodynamically stable. Lab work-up significant for Hgb 7.2 (down from 10.6 on 07/31/2021), Na 132, BNP 495, Cr 4.21 (~baseline), K 4.2, Phos 5.8. No leukocytosis and Procal negative. UA cloudy and positive for nitrite/2+LE/>30WBC/trace blood. Hip XR unremarkable and CXR largely unremarkable besides for mild cardiomegaly. Patient was given 1L NSS bolus and blood/urine cultures were drawn. Allergies Allergy/AdvReac Type Severity Reaction Status Date / Time tetracycline Allergy Intermediate HIVES Verified 12/17/21 22:19 morphine AdvReac Intermediate Nausea Verified 12/17/21 22:19 Home Medications Medication Instructions Recorded Confirmed Type multivitamin with minerals 1 tab PO QAM tab 04/06/18 12/17/21 History cholecalciferol (vitamin D3) 50 50 mcg PO QPM 12/31/19 12/17/21 History mcg (2,000 unit) tablet (Vitamin D3) azelastine 205.5 mcg (0.15 %) 1 spray INTNAS HS PRN #30 ml 09/04/20 12/17/21 Rx nasal spray minoxidil 10 mg tablet 10 mg PO QAM #90 tab 12/18/20 12/17/21 Rx atorvastatin 20 mg tablet (Lipitor) 20 mg PO QPM tab 05/11/21 12/17/21 History sodium bicarbonate 650 mg tablet 650 mg PO BID #180 tab 07/04/21 12/17/21 Rx acetaminophen 500 mg tablet 1,000 mg PO DIRECTED PRN 07/13/21 12/17/21 History (Tylenol Extra Strength) alprazolam 0.25 mg tablet 0.25 mg PO DAILY PRN #60 tab 08/01/21 12/17/21 Rx colestipol 1 gram tablet 1 g PO TID PRN #60 tab 08/01/21 12/17/21 Rx ferrous sulfate 325 mg (65 mg 325 mg PO BIDM #60 tab 08/01/21 12/17/21 Rx iron) tablet,delayed release metoprolol succinate 25 mg 25 mg PO QAM #30 tab 08/01/21 12/17/21 Rx tablet,extended release 24 hr hydrocodone 5 mg-acetaminophen 325 1 tab PO BID PRN #60 tab 09/25/21 12/17/21 Rx mg tablet calcium polycarbophil 625 mg 1,250 mg PO DAILY #60 tab 09/26/21 12/17/21 Rx tablet (FiberCon) methenamine hippurate 1 gram tablet 1 g PO DAILY #30 tab 09/27/21 12/17/21 Rx duloxetine 30 mg capsule,delayed 30 mg PO QAM #90 cap 10/25/21 12/17/21 Rx release gabapentin 100 mg capsule 300 mg PO BID cap 11/14/21 12/17/21 History furosemide 40 mg tablet 40 mg PO DAILY tab 12/05/21 12/17/21 History apixaban 2.5 mg tablet (Eliquis) 2.5 mg PO BID #180 tab 12/13/21 12/17/21 Rx Past Med/Surg History Medical History Abdominal aortic aneurysm (~2014) S/p Type A dissection with emergent repair in 2014 Later found to have AAA 3.5cm- followed by vascular surgery with medical management Anemia due to chronic kidney disease Anxiety Atrial fibrillation Follows with [facility] cardiology (Dr. Jarvis) On Eliquis BPH with obstruction/lower urinary tract symptoms DENIES ENLARGED PROSTATE Chronic kidney disease, stage IV (severe) Follows with [facility] urology, nephrology/under surveillance, no dialysis at this time History of CHF (congestive heart failure) 2003 Hyperlipidemia Hypertension Lumbar spinal stenosis Metabolic acidosis Neurogenic bladder Self Catheterization since Aortic repair Neuropathic pain PTSD (post-traumatic stress disorder) POST AORTIC DISSECTION Sleep apnea CPAP Spinal cord cysts Pt states L1 and L2, dx 05/2021, by Dr. 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 History of revision of total hip arthroplasty left History of rhinoplasty History of tooth extraction History of total knee replacement RT History of total left hip arthroplasty (~12/2019) History of transurethral resection of prostate Nausea and vomiting after administration of anesthetic agent S/P debridement (06/27/21) Excisional Debridement Sacral Decubitus Ulcer down to muscle level 4cm x 6cm - Ranjeet Myers, DO 06/27/2021 Excisional Debridement of Sacral Decubitus Ulcer Down to Bone, 11cm x 10cm(Not Applicable) - Ranjeet Myers, DO 07/25/2021 S/P total right hip arthroplasty Family History Grandmother Family history of diabetes mellitus Mother Gallbladder disease Father Prostate cancer Myocardial infarction Hypertension Other Family history non-contributory No family history of adverse response to anesthesia Denies family history of Ovarian cancer Breast cancer Colorectal cancer Social History Smoking Status: Never smoker Second Hand Exposure: No (hx -- used to smoke); Hx Alcohol Use: No Hx Substance Use: No Preferred Language: Bulgarian Communication Ability: Effective Visual Impairment: Limited Hearing Ability: Normal Mother Baby Rn Required: No Beliefs That Will Affect Care: None marital status: Current Living Situation: Spouse Current Living Situation Comment: Lives with at home current occupational status: retired How many Children do You have: 1 Other Information That Helps Us Care for You: No Feels Safe at Home: Yes Safety Concerns: Feels Safe At This Time Childhood Exposure to Second-Hand Smoke: Yes (father did ) Diet Comment: low sugar, low phospate caffeine: Yes (tea) during the past year weight has: remained stable Dental Care, Regularly: Yes Physical Activity Frequency: Does not Exercise Physical Activity Frequency Comment: goes to PT twice a week Seatbelt Use: always Sunscreen Use: Yes Do you think of yourself as: straight/heterosexual Gender Identity: Male Assistive Devices: BiPap, Glasses and Wheelchair Review of Systems Review of Systems: All systems reviewed & are unremarkable except as noted in HPI & below Physical Exam Physical Exam: General: A&Ox3. NAD. Cooperative. HEENT: Atraumatic, normocephalic. Pulm: CTAB A&P. -wheezes, -rales, -rhonchi. Symmetrical chest rise. No increase work of breathing. No respiratory distress. Cardiac: irregularly irregular. 2/6 systolic murmur best auscultated in RUSB. Radial pulses intact and symmetrical. 2+ pitting edema to shins bilaterally - chronic per patient Abdominal: soft, non-tender, non-distended, BS x 4 Back: sacral decubitus ulcer with overlying wound vac in place and c/d/i, without surrounding erythema/warmth/red streaking Skin: warm, dry, no rash Results & Data Results & Data ([facility]) Vital Signs (Past 12 Hours) Vital Signs Temp Pulse Pulse Resp BP BP Pulse Ox 12/18/21 00:13 72 17 108/69 98 12/17/21 21:34 37.2 C 81 78 16 113/55 L 113/55 L 96 Code Status & VTE Plan Code Status full code - discussed with patient Supervising Physician Co-Signing Physician Notes Attending addendum: I have physically seen this patient, have supervised the medical residents activities, and agree with the H&P unless as otherwise noted. Assessment and Plan: Elevated troponin/atrial fibrillation/hypertension/mitral regurgitation The patient will be admitted to telemetry for serial cardiac enzymes, serial EKG's, cardiac rhythm monitoring and a 2-D echocardiogram with Dopplers. Continue Eliquis, furosemide, metoprolol succinate, minoxidil Hold Eliquis if heme positive Anemia of chronic disease Hemoglobin 7.2 upon mission, with baseline 10.6 History of anemia of chronic disease/CKD stage IV Hemoccult test Iron studies, B12, folate, reticulocyte count Type and screen Continue iron 325 mg p.o. twice daily Continue sodium bicarbonate 650 mg p.o. twice daily Should be considered for Venofer/Epogen as outpatient Stage IV sacral decubitus ulcer- Continue wound VAC Consult wound care nurse No need for antibiotics at this time Continue gabapentin Continue [place] as needed Hyperlipidemia- Continue atorvastatin Resident Activity Tracking Resident Involvement: Resident Care Provided Care Provided: Adult Hospital Medicine (1) Atrial fibrillation Atrial fibrillation type: permanent Qualified Code(s): I48.2 - Chronic atrial fibrillation (2) Hypertension Hypertension type: essential hypertension Qualified Code(s): I10 - Essential (primary) hypertension
[2021-12-18] MEDS ORDERED: cefTRIAXone SODIUM 1,000 MG in DEXTROSE 5% 50 ML IV SCH (01:50)
[2021-12-18] MEDS ORDERED: LACTATED RINGER'S 1,000 ML IV SCH (02:00)
[2021-12-18] MEDS ORDERED: ACETAMINOPHEN 325 MG TAB PO PRN (02:44)
[2021-12-18] MEDS ORDERED: HYDROCODONE/ACETAMOPHEN 5/325MG TAB PO PRN (02:44)
[2021-12-18] MEDS: cefTRIAXone SODIUM 2,000 MG in DEXTROSE 5% 50 ML IV SCH (03:55)
[2021-12-18 06:19] LABS: Hematocrit (blood only) 19.2 % (42-52); Hemoglobin 6.4 g/dL (14.0-18.0); Mean Corpuscular Hemoglobin 31.7 pg (25-34); Mean Corpuscular Hgb Conc 33.3 g/dL (32-36); Mean Platelet Volume 8.3 fL (7.4-10.4); Platelet Count 187 K/uL (130-400); RDW Coefficient of Variation 14.4 % (11.5-14.5); RDW Standard Deviation 50.4 fL (36.4-46.3); Red Blood Count 2.02 M/uL (4.7-6.1); White Blood Count 4.71 K/uL (4.8-10.8)
[2021-12-18] MEDS ORDERED: SODIUM CHLORIDE 0.9% 250 ML IV PRN (06:30)
[2021-12-18 06:45] LABS: BUN Creatinine Ratio 25.5 (10-20); Calcium 8.2 mg/dl (8.5-10.1); Creatinine Clr Calc Pharmacy 20.5 ml/min; Est GFR (African American) 15.3 ml/min; Est GFR (Non-African American) 13.2 ml/min; Magnesium 2.6 mg/dl (1.7-2.4)
[2021-12-18 06:56] LABS: Acanthocytes 1+; Basophils # (auto) 0.02 K/uL (0-0.2); Basophils % (auto) 0.4 %; Eosinophils # (auto) 0.25 K/uL (0-0.5); Eosinophils % (auto) 5.3 %; Monocytes # (auto) 0.62 K/uL (0.11-0.59); Monocytes % (auto) 13.2 %; Neutrophils # (auto) 3.02 K/uL (1.4-6.5); Neutrophils % (auto) 64.1 %; Reticulocyte % 1.2 % (0.5-2.0); Reticulocytes # 0.02 10^6/uL (0.02-0.10)
[2021-12-18 07:10] LABS: Folate (Folic Acid) 13.62 ng/ml (>5.38)
--- NOTE | 2021-12-18 07:58 | XRay Report ---
XR chest 1V portable HISTORY: Atypical Chest Pain COMPARISON: Chest 07/31/2021. FINDINGS: No pneumothorax. The cardiac silhouette remains enlarged. Mild central pulmonary vascular c ongestion and trace bilateral pleural effusions have improved. Bibasilar linear densities favor subse gmental atelectasis. There are poststernotomy changes. IMPRESSION: Interval improvement in the pulmonary vascular congestion and trace bilateral pleural effusions. ACT 112: Negative or not required by law. Electronically signed by: Victoriano Mcclain M.D. 12/18/2021 7:56 AM
--- NOTE | 2021-12-18 08:06 | XRay Report ---
XR hip LT 2V w pelvis CLINICAL HISTORY: Fall. Pelvic/left hip pain. COMPARISON STUDY: Pelvis 07/22/2021. FINDINGS: No fracture or dislocation within the pelvis or hips. Posterior fusion hardware and bilater al total hip arthroplasties are again noted. The heart appears intact. Soft tissues are unremarkable. IMPRESSION: No acute fracture or dislocation within the pelvis or hips. ACT 112: Negative or not required by law. Electronically signed by: Victoriano Mcclain M.D. 12/18/2021 8:05 AM
[2021-12-18] MEDS: FERROUS SULFATE 325 MG TAB PO SCH ×2 (08:40→18:07)
[2021-12-18] MEDS: CALCIUM POLYCARBOPHIL 625MG TAB PO SCH (08:40)
[2021-12-18] MEDS: FUROSEMIDE 40 MG TAB PO SCH (08:40)
[2021-12-18] MEDS: GABAPENTIN 300 MG CAP PO SCH ×2 (08:40→20:07)
[2021-12-18] MEDS: DULoxetine HCL 30 MG CAP PO SCH (08:40)
[2021-12-18] MEDS: METOPROLOL SUCC 25MG EXT REL TAB PO SCH (08:40)
[2021-12-18] MEDS: SODIUM BICARBONATE 650 MG TAB PO SCH ×2 (08:41→20:07)
[2021-12-18] MEDS: minoxidiL 2.5 MG TAB PO SCH (08:41)
[2021-12-18] MEDS: CEROVITE ADV FORMULA TAB PO SCH (08:41)
[2021-12-18] MEDS ORDERED: IRON SUCROSE 200 MG in 0.9 % SODIUM CHLORIDE 100 ML IV ONE (08:45)
[2021-12-18] MEDS: APIXABAN 2.5 MG TAB PO SCH ×2 (12:18→19:54)
--- NOTE | 2021-12-18 13:58 | XCELERA ---
[id number]
--- NOTE | 2021-12-18 14:49 | Electrocardiogram Report ---
Test Reason : Blood Pressure : / mmHG Vent. Rate : 073 BPM Atrial Rate : 357 BPM P-R Int : 000 ms QRS Dur : 122 ms QT Int : 424 ms P-R-T Axes : 000 -60 086 degrees QTc Int : 467 ms Atrial fibrillation Left anterior fascicular block Abnormal ECG When compared with ECG of 23-JUL-2021 17:10, No significant change was found Confirmed by Kodak Jarvis ([id number]) on 12/18/2021 2:48:35 PM Referred By: REFERRED SELF Confirmed By:Kodak Jarvis
--- NOTE | 2021-12-18 14:49 | Hospitalist Progress Note ---
Date of Service December 18, 2021 Assessment & Plan (1) UTI (urinary tract infection): Plan: Continue Rocephin. Await urine culture results and tailor antibiotic accordingl y (2) CKD (chronic kidney disease): Plan: Monitor intake and output. Serial lab studies Plan: Iron deficiency anemia: Symptomatic. Aggravated by IV fluid dilution. No overt GI bleeding. 1 unit packed red blood cells being administered for hemoglobin 6.4. Serial lab studies. Oral iron replacement ordered Suspected UTI, present on admission: Await urine culture results. Continue intravenous Rocephin, day 1 Chronic kidney disease, stage IV: Monitor intake and output. Serial lab studies Paroxysmal atrial fibrillation: Telemetry. Continue Eliquis. Continue current medications for rate control Stage IV decubitus ulcer present on admission: Continue local care and wound VAC treatments DVT prophylaxis: The patient is on Eliquis Disposition: Eventual discharge to home . Admission and Anticipated Discharge Date Admission Date: December 18, 2021 Subjective Alert and oriented. No acute distress. Hemoglobin is down to 6.4 with IV fluids which have been discontinued. He is receiving 1 unit packed red blood cells. No overt GI bleeding. He has iron deficient and parenteral iron replacement has been started. No overt GI bleeding. Urine culture pending. He remains on Rocephin, day 1. Review of Systems Review of Systems: Constitutional-no fever or chills ENT-no blurred vision, no double vision, no epistaxis, no sore throat Respiratory-no cough, no wheezing, no shortness of breath Cardiac-no palpitations, no chest pain, no syncope GI-no nausea, vomiting, diarrhea, melena, hematochezia -no urinary retention, no urinary incontinence, no dysuria, no hematuria Musculoskeletal-no joint pain, no muscle tenderness Skin-no bruising, no rashes, no pruritus Neuro-no isolated weakness, no paresthesia, no weakness Psych-no depression, no anxiety Physical Exam Physical Exam: General-alert and oriented x3, no fevers, no chills HEENT-head atraumatic and normocephalic, TMs intact bilaterally, pupils equal and reactive to light, extraocular muscles intact Neck-no lymphadenopathy or thyromegaly, trachea midline Chest-clear to auscultation percussion. No rales wheezing or rhonchi Cardiac-regular rate and rhythm, normal S1 and S2, no murmurs Abdomen-normal bowel sounds, nontender, no hepatosplenomegaly Extremities-no cyanosis, clubbing, or edema Neuro-cranial nerves II through XII intact, motor and sensory function within normal limits, strength symmetrical , no focal deficits Psych-normal affect, normal mood Results & Data Results & Data ([facility]) Vital Signs (Past 12 Hours) Vital Signs Temp Pulse Pulse Resp BP BP Pulse Ox 12/18/21 12:31 36.4 C L 72 18 101/63 97 12/18/21 12:06 36.6 C 77 18 117/74 95 12/18/21 11:47 36.4 C L 72 18 101/63 97 12/18/21 10:47 36.6 C 66 18 113/66 94 12/18/21 10:17 36.4 C L 64 18 107/71 95 12/18/21 10:02 36.4 C L 70 18 107/68 98 12/18/21 09:45 36.4 C L 70 18 107/68 98 12/18/21 07:10 44 L 18 97 12/18/21 06:17 36.3 C L 67 18 109/63 96 12/18/21 05:20 66 12/18/21 04:51 36.5 C 72 18 119/76 98 Laboratory Results 12/18/21 05:25 12/18/21 05:25 PG Care Time/CCT Total # of Minutes Spent Total Time Spent with Patient: Total time spent is greater than 50% in coordination of care (as documented) at patient's floor/unit and/or counseling patient: Coding Level of Care Code 80206 Subseq Hosp Care Lvl 3 Diagnoses UTI (urinary tract infection) N39.0 CKD (chronic kidney disease) N18.9 Chronic kidney disease stage: unspecified stage (1) CKD (chronic kidney disease) Chronic kidney disease stage: unspecified stage Qualified Code(s): N18.9 - Chronic kidney disease, unspecified
[2021-12-18] MEDS: CHOLECALCIFEROL 1,000 UNITS 25 MCG TAB PO SCH (20:07)
[2021-12-18] MEDS: ATORVASTATIN 20 MG TAB PO SCH (20:07)
[2021-12-18] MEDS: ALPRAZolam 0.25 MG TABLET PO PRN (21:27)
--- NOTE | 2021-12-18 23:24 | Billing Data ---
Date of Service December 18, 2021 Coding Level of Care Code 34045 Initial Inpt Care Lvl 3
[2021-12-19] MEDS: cefTRIAXone SODIUM 2,000 MG in DEXTROSE 5% 50 ML IV SCH (04:22)
[2021-12-19 08:26] LABS: Basophils # (auto) 0.03 K/uL (0-0.2); Basophils % (auto) 0.7 %; Eosinophils # (auto) 0.24 K/uL (0-0.5); Eosinophils % (auto) 5.7 %; Hematocrit (blood only) 21.4 % (42-52); Immature Granulocytes # (auto) 0.01 K/uL (0.00-0.02); Immature Granulocytes % (auto) 0.2 %; Lymphocytes % (auto) 14.3 %; Mean Corpuscular Hemoglobin 30.4 pg (25-34); Mean Corpuscular Hgb Conc 32.7 g/dL (32-36); Mean Platelet Volume 8.4 fL (7.4-10.4); Monocytes # (auto) 0.73 K/uL (0.11-0.59); Monocytes % (auto) 17.3 %; Neutrophils % (auto) 61.8 %; Platelet Count 209 K/uL (130-400); RDW Coefficient of Variation 16.3 % (11.5-14.5); RDW Standard Deviation 55.3 fL (36.4-46.3); White Blood Count 4.21 K/uL (4.8-10.8)
[2021-12-19] MEDS: CALCIUM POLYCARBOPHIL 625MG TAB PO SCH (08:26)
[2021-12-19] MEDS: DULoxetine HCL 30 MG CAP PO SCH (08:26)
[2021-12-19] MEDS: FERROUS SULFATE 325 MG TAB PO SCH ×2 (08:26→16:47)
[2021-12-19] MEDS: METOPROLOL SUCC 25MG EXT REL TAB PO SCH (08:27)
[2021-12-19] MEDS: FUROSEMIDE 40 MG TAB PO SCH (08:27)
[2021-12-19] MEDS: SODIUM BICARBONATE 650 MG TAB PO SCH ×2 (08:27→21:06)
[2021-12-19] MEDS: minoxidiL 2.5 MG TAB PO SCH (08:27)
[2021-12-19] MEDS: GABAPENTIN 300 MG CAP PO SCH ×2 (08:27→21:06)
[2021-12-19] MEDS: CEROVITE ADV FORMULA TAB PO SCH (08:27)
[2021-12-19 08:57] LABS: BUN Creatinine Ratio 25.1 (10-20); Calcium 8.6 mg/dl (8.5-10.1); Creatinine Clr Calc Pharmacy 20.1 ml/min; Est GFR (African American) 15.2 ml/min; Est GFR (Non-African American) 13.1 ml/min
[2021-12-19 09:20] LABS: Acanthocytes 1+
[2021-12-19] MEDS ORDERED: SODIUM CHLORIDE 0.9% 250 ML IV PRN (09:24)
[2021-12-19] MEDS ORDERED: IRON SUCROSE 200 MG in 0.9 % SODIUM CHLORIDE 100 ML IV ONE (09:45)
[2021-12-19] MEDS: APIXABAN 2.5 MG TAB PO SCH ×2 (10:13→21:05)
--- NOTE | 2021-12-19 13:38 | Hospitalist Progress Note ---
Date of Service December 19, 2021 Assessment & Plan (1) Weakness generalized: Plan: Guanaco Escobedo is a 76yo male with PMHx significant for CKDIV (Cr baseline ~4), anemia of chronic disease (Hgb range from 7-10), chronic stage IV sacral decubitus ulcer with previous osteomyelitis, a-fib (on Eliquis), HTN, HLD and WEI who presented to [facility] ED on 12/18 for a slow mechanical fall due to generalized weakness. Generalized Weakness; Ambulatory Dysfunction; Deconditioning Improved with therapy and blood transfusion. Treatment of urinary tract inf ection also has helped. Hip XR without fracture - PT/OT consults appreciated - patient may need rehab/SNF placement UTI Gram-positive cocci isolated. Final identification pending. Continue Rocephin, day 2 Anemia of Chronic Disease; CKDIV Lowest documented hemoglobin 6.4. Continue transfusions. Transfusion today should bring hemoglobin up to at least 8.0. No evidence of GI bleeding. Iron deficiency is contributing. Continue parenteral iron replacement then switch to oral replacement going forward. Stage IV Sacral Decubitus Ulcer Chronic for >6 months, with h/o osteomyelitis. Wound vac in place. - wound care consult appreciated - continue home Xenia PRN and Gabapentin scheduled Mitral Regurgitation; LE edema MR is chronic diagnosis, with murmur on exam likely due to this. LE edema is also chronic and likely due to venous insufficiency. - TTE reveals normal left ventricular ejection fraction - continue home Lasix 40mg PO daily Other Chronic Medical Conditions Atrial fibrillation: rate-controlled. Continue home Eliquis 2.5mg PO BID HTN/HLD: continue home statin WEI: CPAP HS Anxiety: continue home Duloxetine 30mg PO QAM FEN/GI: low-K diet; LR @80cc/hr x1L DVT Prophylaxis: Eliquis Code Status: full code Disposition: Hopeful discharge to home tomorrow, December 20 (2) UTI (urinary tract infection): (3) Chronic kidney disease, stage IV (severe): (4) Anemia due to chronic kidney disease: (5) Atrial fibrillation: (6) S/P revision of total hip: (7) Sacral decubitus ulcer, stage IV: (8) Mitral regurgitation: (9) Sleep apnea: (10) Neuropathic pain: (11) Hypertension: (12) Hyperlipidemia: (13) Anxiety: Admission and Anticipated Discharge Date Admission Date: December 18, 2021 Subjective Alert and oriented. Creatinine stable at 4.1 consistent with his chronic kidney disease stage IV. Gram-positive cocci growing in the urine with final identification pending. He currently is on Rocephin. Hemoglobin improved to 7.0 from 6.4 after 1 unit packed red blood cells yesterday, December 18. We will transfuse another unit today, December 19. Today will be day 2 of parenteral iron replacement. Anticipate discharge to home tomorrow, December 20 Review of Systems Review of Systems: Constitutional-no fever or chills ENT-no blurred vision, no double vision, no epistaxis, no sore throat Respiratory-no cough, no wheezing, no shortness of breath Cardiac-no palpitations, no chest pain, no syncope GI-no nausea, vomiting, diarrhea, melena, hematochezia -no urinary retention, no urinary incontinence, no dysuria, no hematuria Musculoskeletal-no joint pain, no muscle tenderness Skin-no bruising, no rashes, no pruritus Neuro-no isolated weakness, no paresthesia, no weakness Psych-no depression, no anxiety Physical Exam Physical Exam: General-alert and oriented x3, no fevers, no chills HEENT-head atraumatic and normocephalic, TMs intact bilaterally, pupils equal and reactive to light, extraocular muscles intact Neck-no lymphadenopathy or thyromegaly, trachea midline Chest-clear to auscultation percussion. No rales wheezing or rhonchi Cardiac-regular rate and rhythm, normal S1 and S2, no murmurs Abdomen-normal bowel sounds, nontender, no hepatosplenomegaly Extremities-no cyanosis, clubbing, or edema Neuro-cranial nerves II through XII intact, motor and sensory function within normal limits, strength symmetrical , no focal deficits Psych-normal affect, normal mood Results & Data Results & Data ([facility]) Vital Signs (Past 12 Hours) Vital Signs Temp Pulse Pulse Resp BP BP Pulse Ox 12/19/21 13:00 36.6 C 92 H 20 123/73 99 12/19/21 12:15 36.6 C 70 20 122/83 99 12/19/21 11:15 36.6 C 62 20 120/70 99 12/19/21 10:45 36.6 C 90 20 109/68 99 12/19/21 10:30 36.5 C 82 18 113/64 98 12/19/21 10:11 36.4 C L 89 18 123/70 96 12/19/21 06:45 36.7 C 84 18 116/64 93 12/19/21 06:11 73 12/19/21 03:27 36.6 C 69 18 106/63 95 12/19/21 02:59 67 12 97 Laboratory Results 12/19/21 07:35 12/19/21 07:35 PG Care Time/CCT Total # of Minutes Spent Total Time Spent with Patient: Total time spent is greater than 50% in coordination of care (as documented) at patient's floor/unit and/or counseling patient: Coding Level of Care Code 50794 Subseq Hosp Care Lvl 3 Diagnoses Weakness generalized R53.1 UTI (urinary tract infection) N39.0 Chronic kidney disease, stage IV (severe) N18.4 Anemia due to chronic kidney disease N18.9; D63.1 Atrial fibrillation I48.2 Atrial fibrillation type: permanent S/P revision of total hip Z96.649 Sacral decubitus ulcer, stage IV L89.154 Mitral regurgitation I34.0 Sleep apnea G47.30 Neuropathic pain M79.2 Hypertension I10 Hypertension type: essential hypertension Hyperlipidemia E78.5 Anxiety F41.9 (1) Atrial fibrillation Atrial fibrillation type: permanent Qualified Code(s): I48.2 - Chronic atrial fibrillation (2) Hypertension Hypertension type: essential hypertension Qualified Code(s): I10 - Essential (primary) hypertension
[2021-12-19] MEDS ORDERED: EPOETIN ALFA 10,000 UNITS/ML VIAL SQ ONE (16:30)
--- NOTE | 2021-12-19 18:01 | Nephrology Consultation ---
Date of Consultation December 19, 2021 Assessment & Plan (1) CKD (chronic kidney disease): Kidney function relatively stable at baseline. Advanced baseline CKD approaching the need for dialysis. Goals of care briefly reviewed. Sylvester did state that he would rather "be in my tomb rather than be on dialysis." Thankfully, there is no emergent indication for dialysis. Electrolytes are acceptable. Diuretics will be adjusted to try to encourage a slightly negative fluid balance. Additional 40 mg IV furosemide provided now. Medications appropriate for kidney function. Close outpatient follow up strongly encouraged. (2) Metabolic acidosis: Continue oral NaHOC3 twice daily as Rx. (3) Anemia: s/p PRBC transfusion support. No signs of active bleeding. Venofer 200 mg IV x 2 doses. Continue 200 mg IV venofer daily while inpatient. Tsat ~9. Oral FeSO4 as tolerated. Epogen 65157 units provided today. History of Present Illness Reason for Consultation: CKD Requesting Physician: Mikey Velázquez MD Attending Physician: Mikey Velázquez MD History of Present Illness Mr. Guanaco Escobedo (Ken) is a 75-year-old male with hypertension, osteoarthritis, spinal stenosis, a significant history of type A aortic dissection with resultant spinal ischemia and neurogenic bladder. He has loss of sensation complicated by a sacral decubitus ulcer. 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 Following aortic repair, a stable infrarenal dissection has been monitored in the distal aorta extending into the left iliac. Baseline creatinine has been ~3.2 to 4.2 mg/dL. CKD IV-V A3. Non-nephrotic proteinuria by history. CKD attributed to vascular disease and hypertensive nephrosclerosis as well as a significant history of ATN. I had followed closely with Sylvester in the nephrology clinic and have provided education on dialysis in the past. He completed predialysis education through [facility] program. Sylvester was last seen in July 2021. He was somewhat lost to follow up when he entered the SNF at [facility]. Sylvester returned home with home health and PT through [facility] on September 25. He reports improving activity tolerance but persistent noted debility. Sacral wound is healing with wound vac and close follow up with wound care. I met with Sylvester and his in his hospital room this afternoon. He was admitted from home with notable weakness and a slow fall. Thankfully, he did not sustain significant injury. Evaluation notable for anemia requiring PRBC transfusion support. IV Venofer has also been provided. no signs of GI blood loss reported. ROS notable for progressive fluid retention, notably in the lower extremities and abdomen. Sylvester was evaluated in the cardiology clinic earlier this month and diuretics were temporarily increased from furosemide 40 mg daily to 40 mg twice daily for several days. Unfortunately, there was no appreciable improvement. Complications of chronic kidney disease include anemia and secondary hyperparathyroidism.He has a notable history of recurrent LINA. Allergies Allergy/AdvReac Type Severity Reaction Status Date / Time tetracycline Allergy Intermediate HIVES Verified 12/17/21 22:19 morphine AdvReac Intermediate Nausea Verified 12/17/21 22:19 Home Medications Medication Instructions Recorded Confirmed Type multivitamin with minerals 1 tab PO QAM tab 04/06/18 12/17/21 History cholecalciferol (vitamin D3) 50 50 mcg PO QPM 12/31/19 12/17/21 History mcg (2,000 unit) tablet (Vitamin D3) azelastine 205.5 mcg (0.15 %) 1 spray INTNAS HS PRN #30 ml 09/04/20 12/17/21 Rx nasal spray minoxidil 10 mg tablet 10 mg PO QAM #90 tab 12/18/20 12/17/21 Rx atorvastatin 20 mg tablet (Lipitor) 20 mg PO QPM tab 05/11/21 12/17/21 History sodium bicarbonate 650 mg tablet 650 mg PO BID #180 tab 07/04/21 12/17/21 Rx acetaminophen 500 mg tablet 1,000 mg PO DIRECTED PRN 07/13/21 12/17/21 History (Tylenol Extra Strength) alprazolam 0.25 mg tablet 0.25 mg PO DAILY PRN #60 tab 08/01/21 12/17/21 Rx colestipol 1 gram tablet 1 g PO TID PRN #60 tab 08/01/21 12/17/21 Rx ferrous sulfate 325 mg (65 mg 325 mg PO BIDM #60 tab 08/01/21 12/17/21 Rx iron) tablet,delayed release metoprolol succinate 25 mg 25 mg PO QAM #30 tab 08/01/21 12/17/21 Rx tablet,extended release 24 hr hydrocodone 5 mg-acetaminophen 325 1 tab PO BID PRN #60 tab 09/25/21 12/17/21 Rx mg tablet calcium polycarbophil 625 mg 1,250 mg PO DAILY #60 tab 09/26/21 12/17/21 Rx tablet (FiberCon) methenamine hippurate 1 gram tablet 1 g PO DAILY #30 tab 09/27/21 12/17/21 Rx duloxetine 30 mg capsule,delayed 30 mg PO QAM #90 cap 10/25/21 12/17/21 Rx release gabapentin 100 mg capsule 300 mg PO BID cap 11/14/21 12/17/21 History furosemide 40 mg tablet 40 mg PO DAILY tab 12/05/21 12/17/21 History apixaban 2.5 mg tablet (Eliquis) 2.5 mg PO BID #180 tab 12/13/21 12/17/21 Rx Patient History Medical History Abdominal aortic aneurysm (~2014) S/p Type A dissection with emergent repair in 2014 Later found to have AAA 3.5cm- followed by vascular surgery with medical management Anemia due to chronic kidney disease Anxiety Atrial fibrillation Follows with [facility] cardiology (Dr. Jarvis) On Eliquis BPH with obstruction/lower urinary tract symptoms DENIES ENLARGED PROSTATE Chronic kidney disease, stage IV (severe) Follows with [facility] urology, nephrology/under surveillance, no dialysis at this time History of CHF (congestive heart failure) 2003 Hyperlipidemia Hypertension Lumbar spinal stenosis Metabolic acidosis Neurogenic bladder Self Catheterization since Aortic repair Neuropathic pain PTSD (post-traumatic stress disorder) POST AORTIC DISSECTION Sleep apnea CPAP Spinal cord cysts Pt states L1 and L2, dx 05/2021, by Dr. 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 History of revision of total hip arthroplasty left History of rhinoplasty History of tooth extraction History of total knee replacement RT History of total left hip arthroplasty (~12/2019) History of transurethral resection of prostate Nausea and vomiting after administration of anesthetic agent S/P debridement (06/27/21) Excisional Debridement Sacral Decubitus Ulcer down to muscle level 4cm x 6cm - Ranjeet Myers DO 06/27/2021 Excisional Debridement of Sacral Decubitus Ulcer Down to Bone, 11cm x 10cm(N ot Applicable) - Ranjeet Myers DO 07/25/2021 S/P total right hip arthroplasty Family History Grandmother Family history of diabetes mellitus Mother Gallbladder disease Father Prostate cancer Myocardial infarction Hypertension Other Family history non-contributory No family history of adverse response to anesthesia Denies family history of Ovarian cancer Breast cancer Colorectal cancer Social History Smoking Status: Never smoker Second Hand Exposure: No (hx -- used to smoke); Hx Alcohol Use: No Hx Substance Use: No Preferred Language: Central African Communication Ability: Effective Visual Impairment: Limited Hearing Ability: Normal Medical Oncology Physician Required: No Beliefs That Will Affect Care: None marital status: Current Living Situation: Spouse Current Living Situation Comment: Lives with at home current occupational status: retired How many Children do You have: 1 Other Information That Helps Us Care for You: No Feels Safe at Home: Yes Safety Concerns: Feels Safe At This Time Childhood Exposure to Second-Hand Smoke: Yes (father did ) Diet Comment: low sugar, low phospate caffeine: Yes (tea) during the past year weight has: remained stable Dental Care, Regularly: Yes Physical Activity Frequency: Does not Exercise Physical Activity Frequency Comment: goes to PT twice a week Seatbelt Use: always Sunscreen Use: Yes Do you think of yourself as: straight/heterosexual Gender Identity: Male Assistive Devices: Walker and Wheelchair Review of Systems Review of Systems: All systems reviewed & are unremarkable except as noted in HPI & below Physical Exam Constitutional: + frail appearing; not in distress Eyes: PERRL, conjunctivae normal, anicteric sclerae ENMT: external ear and nose normal, oropharynx normal Neck: trachea midline, no thyromegaly Respiratory: normal respiratory effort, lungs clear to auscultation Cardiovascular: Rate/Rhythm: regular rate and regular rhythm Heart Sounds: + murmur Extremities: + edema notable pitting dependent edema in BL lower extremities extending to abdomen and flanks Gastrointestinal (Abdomen): normal bowel sounds, soft, nontender, no hepatosplenomegaly Neurologic: awake; not confused Psychiatric: A+Ox3, euthymic affect Results & Data ([facility]) Vital Signs (Past 12 Hours) Vital Signs Temp Pulse Pulse Resp BP BP Pulse Ox 12/19/21 15:19 36.7 C 95 H 18 117/70 93 12/19/21 14:19 70 12/19/21 13:00 36.6 C 92 H 20 123/73 99 12/19/21 12:15 36.6 C 70 20 122/83 99 12/19/21 11:15 36.6 C 62 20 120/70 99 12/19/21 10:45 36.6 C 90 20 109/68 99 12/19/21 10:30 36.5 C 82 18 113/64 98 12/19/21 10:11 36.4 C L 89 18 123/70 96 12/19/21 06:45 36.7 C 84 18 116/64 93 12/19/21 06:11 73 Laboratory Results Laboratory Results - last 24 hr 12/18/21 12/19/21 12/19/21 07:44 07:35 07:35 WBC 4.21 L RBC 2.30 L Hgb 7.0 L Hct 21.4 L MCV 93.0 MCH 30.4 MCHC 32.7 RDW Std Deviation 55.3 H RDW Coeff of Hector 16.3 H Plt Count 209 MPV 8.4 Immature Gran % (Auto) 0.2 Neut % (Auto) 61.8 Lymph % (Auto) 14.3 [place] % (Auto) 17.3 Eos % (Auto) 5.7 Baso % (Auto) 0.7 Neut # (Auto) 2.60 Lymph # (Auto) 0.60 L [place] # (Auto) 0.73 H Eos # (Auto) 0.24 Baso # (Auto) 0.03 Immature Gran # (Auto) 0.01 Acanthocytes (Spur) 1+ Sodium 135 L Potassium 4.0 Chloride 105 Carbon Dioxide 19 L Anion Gap 11 BUN 104 H Creatinine 4.15 H Est Cr Clr Drug Dosing 20.1 Est GFR ( Amer) 15.2 Est GFR (Non-Af Amer) 13.1 BUN/Creatinine Ratio 25.1 H Glucose 86 Calcium 8.6 Blood Type O Positive Antibody Screen NEGATIVE Crossmatch See Detail PG Care Time/CCT Total # of Minutes Spent Total Time Spent with Patient: Total time spent is greater than 50% in coordination of care (as documented) at patient's floor/unit and/or counseling patient: Coding Level of Care Code 61191 Inpt Consult Level 4 Diagnoses CKD (chronic kidney disease) N18.9 Chronic kidney disease stage: unspecified stage Metabolic acidosis E87.2 Anemia D64.9 Anemia type: unspecified type (1) CKD (chronic kidney disease) Chronic kidney disease stage: unspecified stage Qualified Code(s): N18.9 - Chronic kidney disease, unspecified (2) Anemia Anemia type: unspecified type Qualified Code(s): D64.9 - Anemia, unspecified
[2021-12-19] MEDS ORDERED: FUROSEMIDE 40 MG/4 ML VIAL IV ONE (18:27)
[2021-12-19] MEDS: ATORVASTATIN 20 MG TAB PO SCH (21:05)
[2021-12-19] MEDS: CHOLECALCIFEROL 1,000 UNITS 25 MCG TAB PO SCH (21:05)
[2021-12-19] MEDS: ALPRAZolam 0.25 MG TABLET PO PRN (23:33)
[2021-12-20] MEDS: cefTRIAXone SODIUM 2,000 MG in DEXTROSE 5% 50 ML IV SCH (03:33)
[2021-12-20 06:43] LABS: Basophils # (auto) 0.04 K/uL (0-0.2); Basophils % (auto) 0.8 %; Eosinophils # (auto) 0.33 K/uL (0-0.5); Hematocrit (blood only) 22.8 % (42-52); Hemoglobin 7.6 g/dL (14.0-18.0); Immature Granulocytes # (auto) 0.02 K/uL (0.00-0.02); Immature Granulocytes % (auto) 0.4 %; Lymphocytes # (auto) 0.65 K/uL (1.2-3.4); Lymphocytes % (auto) 13.8 %; Mean Corpuscular Hemoglobin 30.4 pg (25-34); Mean Corpuscular Hgb Conc 33.3 g/dL (32-36); Mean Corpuscular Volume 91.2 fL (80-100); Mean Platelet Volume 8.1 fL (7.4-10.4); Monocytes # (auto) 0.68 K/uL (0.11-0.59); Monocytes % (auto) 14.4 %; Neutrophils # (auto) 2.99 K/uL (1.4-6.5); Neutrophils % (auto) 63.6 %; Platelet Count 179 K/uL (130-400); RDW Standard Deviation 54.3 fL (36.4-46.3); White Blood Count 4.71 K/uL (4.8-10.8)
[2021-12-20 07:01] LABS: BUN Creatinine Ratio 25.6 (10-20); Calcium 8.1 mg/dl (8.5-10.1); Creatinine Clr Calc Pharmacy 20.9 ml/min; Est GFR (African American) 15.8 ml/min; Est GFR (Non-African American) 13.6 ml/min; Potassium 3.6 mmol/L (3.5-5.1)
[2021-12-20 07:33] LABS: Acanthocytes 1+; Echinocytes 2+
[2021-12-20] MEDS: FERROUS SULFATE 325 MG TAB PO SCH (08:07)
[2021-12-20] MEDS: CALCIUM POLYCARBOPHIL 625MG TAB PO SCH (08:07)
[2021-12-20] MEDS: DULoxetine HCL 30 MG CAP PO SCH (08:08)
[2021-12-20] MEDS: METOPROLOL SUCC 25MG EXT REL TAB PO SCH (08:08)
[2021-12-20] MEDS: CEROVITE ADV FORMULA TAB PO SCH (08:08)
[2021-12-20] MEDS: SODIUM BICARBONATE 650 MG TAB PO SCH (08:08)
[2021-12-20] MEDS: GABAPENTIN 300 MG CAP PO SCH (08:08)
[2021-12-20] MEDS: minoxidiL 2.5 MG TAB PO SCH (08:08)
[2021-12-20] MEDS: FUROSEMIDE 40 MG TAB PO SCH (08:08)
[2021-12-20] MEDS: APIXABAN 2.5 MG TAB PO SCH (08:09)
[2021-12-20] MEDS ORDERED: FUROSEMIDE 40 MG TAB PO SCH (09:00)
--- NOTE | 2021-12-20 09:19 | Nephrology Progress Note ---
Date of Service December 20, 2021 Assessment & Plan (1) CKD (chronic kidney disease): Plan: Kidney function stable. Advanced baseline CKD - CKD IV-V A3. No emergent indication for dialysis. Goals of care briefly reviewed. Adequate diuresis with furosemide increased to 40 mg twice daily. Electrolytes acceptable. Medications appropriate for kidney function. Close outpatient follow up strongly encouraged. (2) Metabolic acidosis: Plan: Increase NaHCO3 to 1300 mg BID. (3) Anemia: Plan: s/p PRBC transfusion support. No signs of active bleeding. Venofer 200 mg IV x 2 doses. Additional 200 mg IV today. Oral FeSO4 as tolerated. Epogen 96043 units provided yesterday. Admission and Anticipated Discharge Date Admission Date: December 18, 2021 Subjective No acute events overnight. No signs of bleeding. Notable diuresis with IV furosemide overnight. Creatinine stable. Sylvester feels well. Hopeful to return home tomorrow or in the near future. We did review goals of care briefly this AM. He remains receptive of dialysis if indicated. Review of Systems Review of Systems: All systems reviewed & are unremarkable except as noted in HPI & below Physical Exam Constitutional: + frail appearing; not in distress Eyes: PERRL, conjunctivae normal, anicteric sclerae ENMT: external ear and nose normal, oropharynx normal Neck: trachea midline, no thyromegaly Respiratory: normal respiratory effort, lungs clear to auscultation Cardiovascular: Rate/Rhythm: regular rate and regular rhythm Heart Sounds: + murmur Extremities: + edema Gastrointestinal (Abdomen): normal bowel sounds, soft, nontender, no hepatosplenomegaly Neurologic: awake; not confused Psychiatric: A+Ox3, euthymic affect Results & Data ([facility]) Vital Signs (Past 12 Hours) Vital Signs Temp Pulse Pulse Resp BP Pulse Ox 12/20/21 08:12 36.5 C 69 18 122/77 96 12/20/21 06:20 71 12/20/21 04:11 36.5 C 67 20 120/68 97 12/20/21 04:10 67 18 97 12/19/21 23:53 36.5 C 78 18 116/65 98 12/19/21 23:30 79 14 98 12/19/21 22:17 71 Laboratory Results Laboratory Results - last 24 hr 12/18/21 12/19/21 12/20/21 07:44 07:35 06:13 WBC 4.71 L RBC 2.50 L Hgb 7.6 L Hct 22.8 L MCV 91.2 MCH 30.4 MCHC 33.3 RDW Std Deviation 54.3 H RDW Coeff of Hector 16.0 H Plt Count 179 MPV 8.1 Immature Gran % (Auto) 0.4 Neut % (Auto) 63.6 Lymph % (Auto) 13.8 [place] % (Auto) 14.4 Eos % (Auto) 7.0 Baso % (Auto) 0.8 Neut # (Auto) 2.99 Lymph # (Auto) 0.65 L [place] # (Auto) 0.68 H Eos # (Auto) 0.33 Baso # (Auto) 0.04 Immature Gran # (Auto) 0.02 Echinocytes 2+ Acanthocytes (Spur) 1+ 1+ Sodium Potassium Chloride Carbon Dioxide Anion Gap BUN Creatinine Est Cr Clr Drug Dosing Est GFR ( Amer) Est GFR (Non-Af Amer) BUN/Creatinine Ratio Glucose Calcium Blood Type O Positive Antibody Screen NEGATIVE Crossmatch See Detail 12/20/21 06:13 WBC RBC Hgb Hct MCV MCH MCHC RDW Std Deviation RDW Coeff of Hector Plt Count MPV Immature Gran % (Auto) Neut % (Auto) Lymph % (Auto) [place] % (Auto) Eos % (Auto) Baso % (Auto) Neut # (Auto) Lymph # (Auto) [place] # (Auto) Eos # (Auto) Baso # (Auto) Immature Gran # (Auto) Echinocytes Acanthocytes (Spur) Sodium 136 Potassium 3.6 Chloride 106 Carbon Dioxide 18 L Anion Gap 12 H BUN 103 H Creatinine 4.03 H Est Cr Clr Drug Dosing 20.9 Est GFR ( Amer) 15.8 Est GFR (Non-Af Amer) 13.6 BUN/Creatinine Ratio 25.6 H Glucose 90 Calcium 8.1 L Blood Type Antibody Screen Crossmatch PG Care Time/CCT Total # of Minutes Spent Total Time Spent with Patient: Total time spent is greater than 50% in coordination of care (as documented) at patient's floor/unit and/or counseling patient: Coding Level of Care Code 99096 Subseq Hosp Care Lvl 3 Diagnoses CKD (chronic kidney disease) N18.9 Chronic kidney disease stage: unspecified stage Metabolic acidosis E87.2 Anemia D64.9 Anemia type: unspecified type (1) CKD (chronic kidney disease) Chronic kidney disease stage: unspecified stage Qualified Code(s): N18.9 - Chronic kidney disease, unspecified (2) Anemia Anemia type: unspecified type Qualified Code(s): D64.9 - Anemia, unspecified
[2021-12-20] MEDS ORDERED: IRON SUCROSE 200 MG in 0.9 % SODIUM CHLORIDE 100 ML IV ONE ×2 (09:20→09:45)
--- NOTE | 2021-12-20 11:40 | Discharge Summary ---
Date of Service December 20, 2021 Admission HPI Per Admitting Provider Guanaco Escobeod is a 76yo male with PMHx significant for CKDIV (Cr baseline ~4), anemia of chronic disease (Hgb range from 7-10), chronic stage IV sacral decubitus ulcer with previous osteomyelitis, a-fib (on Eliquis), HTN, HLD and WEI who presented to [facility] ED on 12/18 for a slow mechanical fall and subsequent left hip pain. Patient reports that he was getting into bed when he misplaced his hands and slowly fell to the ground, with difficulty getting back up onto his bed due to generalized weakness. Of note patient was hospitalized from 07/13/2021 - 08/01/2021 due to bacteremia due to osteomyelitis of sacrum in context of stage IV sacral decubitus ulcer, with resultant wound vac that has remained since hospitalization. Patient reports slowly progressive generalized weakness over the course of the last 6 months since he was hospitalized. Has been wheel chair dependent with minimal ambulation or other physical activity, besides for twice weekly PT sessions. Denies weight loss or decreased appetite. Patient denies recent illnesses of any kind. Wound care nurse comes twice per week and was just at his house yesterday - had reported that ulcer is continuing to heal over last several months without concern for cellulitis. No fever/chills, chest pain, SOB, runny nose, sore throat, N/V, abdominal pain, diarrhea, dysuria, increased urinary frequency/urgency, or rash. Patient does have chronic LE edema which is not worse recently. No orthopnea or PND. In the ED patient was afebrile and hemodynamically stable. Lab work-up significant for Hgb 7.2 (down from 10.6 on 07/31/2021), Na 132, BNP 495, Cr 4.21 (~baseline), K 4.2, Phos 5.8. No leukocytosis and Procal negative. UA cloudy and positive for nitrite/2+LE/>30WBC/trace blood. Hip XR unremarkable and CXR largely unremarkable besides for mild cardiomegaly. Patient was given 1L NSS bolus and blood/urine cultures were drawn. Principal Diagnosis Symptomatic anemia due to chronic kidney disease and iron deficiency, enterococcal UTI present on admission Discharge Exam General-alert and oriented x3, no fevers, no chills HEENT-head atraumatic and normocephalic, TMs intact bilaterally, pupils equal and reactive to light, extraocular muscles intact Neck-no lymphadenopathy or thyromegaly, trachea midline Chest-clear to auscultation percussion. No rales wheezing or rhonchi Cardiac-regular rate and rhythm, normal S1 and S2, no murmurs Abdomen-normal bowel sounds, nontender, no hepatosplenomegaly Extremities-no cyanosis, clubbing, or edema Neuro-cranial nerves II through XII intact, motor and sensory function within normal limits, strength symmetrical , no focal deficits Psych-normal affect, normal mood Discharge Data Allergies Allergy/AdvReac Type Severity Reaction Status Date / Time tetracycline Allergy Intermediate HIVES Verified 12/17/21 22:19 morphine AdvReac Intermediate Nausea Verified 12/17/21 22:19 Consultations 12/18/21 00:28 ED Decision to Admit Stat 12/19/21 14:47 Consult Nephrology Routine Hospital Course (1) Weakness generalized: Guanaco Escobedo is a 76yo male with PMHx significant for CKDIV (Cr baseline ~4), anemia of chronic disease (Hgb range from 7-10), chronic stage IV sacral decubitus ulcer with previous osteomyelitis, a-fib (on Eliquis), HTN, HLD and WEI who presented to [facility] ED on 12/18 for a slow mechanical fall due to generalized weakness. Generalized Weakness; Ambulatory Dysfunction; Deconditioning Improved with therapy and blood transfusion. Treatment of urinary tract infection also has helped. Hip XR without fracture - PT/OT consults appreciated UTI Gram-coccus isolated. Pansensitive. Home on amoxicillin. Treated with Rocephin while hospitalized Anemia of Chronic Disease; CKDIV Lowest documented hemoglobin 6.4. Continue transfusions. Transfusion again 12/19 brought Hgb up to 7.6. No evidence of GI bleeding. Iron deficiency is contributing. Received parenteral iron replacement for 3 days,then switch to oral replacement going forward. Stage IV Sacral Decubitus Ulcer Chronic for >6 months, with h/o osteomyelitis. Wound vac in place. - wound care consult appreciated - continue home [place] PRN and Gabapentin scheduled Mitral Regurgitation; LE edema MR is chronic diagnosis, with murmur on exam likely due to this. LE edema is also chronic and likely due to venous insufficiency. - TTE reveals normal left ventricular ejection fraction - continue home Lasix 40mg PO daily Other Chronic Medical Conditions Atrial fibrillation: rate-controlled. Continue home Eliquis 2.5mg PO BID HTN/HLD: continue home statin WEI: CPAP HS Anxiety: continue home Duloxetine 30mg PO QAM DVT Prophylaxis: Eliquis Code Status: full code Disposition: discharge to home today, December 20 (2) UTI (urinary tract infection): (3) Chronic kidney disease, stage IV (severe): (4) Anemia due to chronic kidney disease: (5) Atrial fibrillation: (6) S/P revision of total hip: (7) Sacral decubitus ulcer, stage IV: (8) Mitral regurgitation: (9) Sleep apnea: (10) Neuropathic pain: (11) Hypertension: (12) Hyperlipidemia: (13) Anxiety: Total Time Total Time Spent Total Time Spent (In Minutes): 35 minutes Discharge Plan Discharge Items Reason For Visit: FALL Follow-up/Referrals: Jasiel Pineda DO [Primary Care Provider] - Medications and DC Order Prescriptions: No Action hydrocodone-acetaminophen 5-325 mg tablet 1 tab PO BID PRN (Reason: pain) Qty: 60 RF: 0 multivitamin with minerals tablet 1 tab PO QAM RF: 0 furosemide 40 mg tablet 40 mg PO DAILY RF: 0 azelastine 0.15 % (205.5 mcg) spray,non-aerosol 1 spray INTNAS HS PRN (Reason: seasonal allergies) Qty: 30 RF: 2 minoxidil 10 mg tablet 10 mg PO QAM Qty: 90 RF: 3 calcium polycarbophil [FiberCon] 625 mg tablet 1,250 mg PO DAILY Qty: 60 RF: 0 duloxetine 30 mg capsule,delayed release(DR/EC) 30 mg PO QAM Qty: 90 RF: 3 Eliquis 2.5 mg tablet 2.5 mg PO BID Qty: 180 RF: 3 sodium bicarbonate 650 mg tablet 650 mg PO BID Qty: 180 RF: 3 methenamine hippurate 1 gram tablet 1 g PO DAILY Qty: 30 RF: 0 atorvastatin [Lipitor] 20 mg tablet 20 mg PO QPM RF: 0 gabapentin 100 mg capsule 300 mg PO BID RF: 0 cholecalciferol (vitamin D3) [Vitamin D3] 50 mcg (2,000 unit) Tablet 50 mcg PO QPM RF: 0 acetaminophen [Tylenol Extra Strength] 500 mg Tablet 1,000 mg PO DIRECTED PRN (Reason: Pain) RF: 0 metoprolol succinate 25 mg Tablet Extended Release 24 Hr 25 mg PO QAM Qty: 30 RF: 0 ferrous sulfate 325 mg (65 mg iron) Tablet,Delayed Release (Dr/Ec) 325 mg PO BIDM Qty: 60 RF: 0 colestipol 1 gram tablet 1 g PO TID PRN (Reason: diarrhea) Qty: 60 RF: 0 alprazolam 0.25 mg tablet 0.25 mg PO DAILY PRN (Reason: anxiety) Qty: 60 RF: 0 Admission Data Admit Date/Time: 12/18/21 01:50 Attending Provider: Mikey Velázquez Admit Provider: Ash Murphy Primary Care Provider: Jasiel Pineda Other Providers: Jaden Hay ; Gilbert Paul Coding Level of Care Code D/C DAY MANAGEMENT >30 MINS Diagnoses Weakness generalized R53.1 UTI (urinary tract infection) N39.0 Chronic kidney disease, stage IV (severe) N18.4 Anemia due to chronic kidney disease N18.9; D63.1 Atrial fibrillation I48.2 Atrial fibrillation type: permanent S/P revision of total hip Z96.649 Sacral decubitus ulcer, stage IV L89.154 Mitral regurgitation I34.0 Sleep apnea G47.30 Neuropathic pain M79.2 Hypertension I10 Hypertension type: essential hypertension Hyperlipidemia E78.5 Anxiety F41.9
--- NOTE | 2021-12-20 11:42 | Discharge Summary ---
Date of Service December 20, 2021 Admission HPI Per Admitting Provider Guanaco Escobedo is a 76yo male with PMHx significant for CKDIV (Cr baseline ~4), anemia of chronic disease (Hgb range from 7-10), chronic stage IV sacral decubitus ulcer with previous osteomyelitis, a-fib (on Eliquis), HTN, HLD and WEI who presented to [facility] ED on 12/18 for a slow mechanical fall and subsequent left hip pain. Patient reports that he was getting into bed when he misplaced his hands and slowly fell to the ground, with difficulty getting back up onto his bed due to generalized weakness. Of note patient was hospitalized from 07/13/2021 - 08/01/2021 due to bacteremia due to osteomyelitis of sacrum in context of stage IV sacral decubitus ulcer, with resultant wound vac that has remained since hospitalization. Patient reports slowly progressive generalized weakness over the course of the last 6 months since he was hospitalized. Has been wheel chair dependent with minimal ambulation or other physical activity, besides for twice weekly PT sessions. Denies weight loss or decreased appetite. Patient denies recent illnesses of any kind. Wound care nurse comes twice per week and was just at his house yesterday - had reported that ulcer is continuing to heal over last several months without concern for cellulitis. No fever/chills, chest pain, SOB, runny nose, sore throat, N/V, abdominal pain, diarrhea, dysuria, increased urinary frequency/urgency, or rash. Patient does have chronic LE edema which is not worse recently. No orthopnea or PND. In the ED patient was afebrile and hemodynamically stable. Lab work-up significant for Hgb 7.2 (down from 10.6 on 07/31/2021), Na 132, BNP 495, Cr 4.21 (~baseline), K 4.2, Phos 5.8. No leukocytosis and Procal negative. UA cloudy and positive for nitrite/2+LE/>30WBC/trace blood. Hip XR unremarkable and CXR largely unremarkable besides for mild cardiomegaly. Patient was given 1L NSS bolus and blood/urine cultures were drawn. Principal Diagnosis Symptomatic anemia secondary to chronic kidney disease and iron deficiency, enterococcal UTI present on admission Discharge Data Allergies Allergy/AdvReac Type Severity Reaction Status Date / Time tetracycline Allergy Intermediate HIVES Verified 12/17/21 22:19 morphine AdvReac Intermediate Nausea Verified 12/17/21 22:19 Consultations 12/18/21 00:28 ED Decision to Admit Stat 12/19/21 14:47 Consult Nephrology Routine Total Time Total Time Spent Total Time Spent (In Minutes): 35 minutes Discharge Plan Discharge Items Patient Disposition: Home - Self-Care Reason For Visit: FALL Discharge Diagnosis: Symptomatic anemia from iron deficiency and chronic kidney disease, enterococcal UTI present on admission Activity: Resume your previous activity Non-emergency contact: Primary Care Provider Call non-emergency contact if: you have any medication questions Follow-up/Referrals: Jasiel Pineda DO [Primary Care Provider] - Diet: Heart Healthy Addtl Attending Provider Instructions: Take amoxicillin for urinary tract infection for 3 more days. Adjust Lasix diuretic according to Dr. Mirza instructions Stand-Alone Forms: [employer]AllAccounts, Smoking Cessation Medications and DC Order Prescriptions: New amoxicillin 875 mg tablet 875 mg PO BID Qty: 10 RF: 0 Continued hydrocodone-acetaminophen 5-325 mg tablet 1 tab PO BID PRN (Reason: pain) Qty: 60 RF: 0 multivitamin with minerals tablet 1 tab PO QAM RF: 0 furosemide 40 mg tablet 40 mg PO DAILY RF: 0 azelastine 0.15 % (205.5 mcg) spray,non-aerosol 1 spray INTNAS HS PRN (Reason: seasonal allergies) Qty: 30 RF: 2 minoxidil 10 mg tablet 10 mg PO QAM Qty: 90 RF: 3 calcium polycarbophil [FiberCon] 625 mg tablet 1,250 mg PO DAILY Qty: 60 RF: 0 duloxetine 30 mg capsule,delayed release(DR/EC) 30 mg PO QAM Qty: 90 RF: 3 Eliquis 2.5 mg tablet 2.5 mg PO BID Qty: 180 RF: 3 sodium bicarbonate 650 mg tablet 650 mg PO BID Qty: 180 RF: 3 methenamine hippurate 1 gram tablet 1 g PO DAILY Qty: 30 RF: 0 atorvastatin [Lipitor] 20 mg tablet 20 mg PO QPM RF: 0 gabapentin 100 mg capsule 300 mg PO BID RF: 0 cholecalciferol (vitamin D3) [Vitamin D3] 50 mcg (2,000 unit) Tablet 50 mcg PO QPM RF: 0 acetaminophen [Tylenol Extra Strength] 500 mg Tablet 1,000 mg PO DIRECTED PRN (Reason: Pain) RF: 0 metoprolol succinate 25 mg Tablet Extended Release 24 Hr 25 mg PO QAM Qty: 30 RF: 0 ferrous sulfate 325 mg (65 mg iron) Tablet,Delayed Release (Dr/Ec) 325 mg PO BIDM Qty: 60 RF: 0 colestipol 1 gram tablet 1 g PO TID PRN (Reason: diarrhea) Qty: 60 RF: 0 alprazolam 0.25 mg tablet 0.25 mg PO DAILY PRN (Reason: anxiety) Qty: 60 RF: 0 Discharge Orders: Discharge Order (Routine); Ordered 12/20/21 Ordered By: Mikey Velázquez Admission Data Admit Date/Time: 12/18/21 01:50 Attending Provider: Mikey Velázquez Admit Provider: Ash Murphy Primary Care Provider: Jasiel Pineda Other Providers: Jaden Hay Kevin C. Coding Level of Care Code D/C DAY MANAGEMENT >30 MINS
[2021-12-20] MEDS ORDERED: SODIUM BICARBONATE 650 MG TAB PO SCH (21:00)
== END 2021-12-20 15:44 | disposition home health service (06) | DRG 682 ==
LOC: ED 21:26 → 2N 12-18 01:50 → SUATTDRO 12-18 01:50 → 2N 12-18 02:11

== ENCOUNTER 2022-02-05 08:55 | Inpatient (IN) ==
--- NOTE | 2022-02-05 09:01 | Emergency Department Note ---
Impression & Plan Osteomyelitis of sacrum, Volume overload, CKD (chronic kidney disease) stage 5, GFR less than 15 ml/min, Abdominal pain, Anemia ED Provider Note NAME: JENNIFER STAPLETON AGE: 76 SEX: M : 1945 ARRIVES VIA: Ambulance INFORMANT: Patient, ED PROVIDER(S): Fabian Haley MD Chief Complaint: Abdominal pain HPI: Patient presents due to concern for right-sided abdominal pain that he states began in the middle of the night. The patient did not take anything for pain at home. He states that it is constant localized to the right side but will occasionally get worse with lying down. Patient denies any chest pains or shortness of breath. Patient does have a chronic sacral wound VAC. The patient does have CKD and states that he is not currently receiving dialysis but may need it in the coming months. Patient does admit to having swollen legs. Patient states he has had no issues with urination or defecation. Patient does have prior history of AAA which he follows with Dr. Marroquin. The patient does b elieve that he had an ultrasound approximately 6 or 7 months ago which she states was unchanged at that time. Patient denies any back pain leg pain numbness tingling or focal weakness. Patient denies any falls or trauma and no recent travel. Patient's most recent blood work showed a hemoglobin of 8.4 on January 30. Patient's most recent BUN and creatinine is 114 and 4.8 respectively on January 16. 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 ROS: See HPI for pertinent positives and negatives. A total of 10 systems were r eviewed and otherwise negative. Past medical history: See below Surgical history: See below Social history: See below Physical Exam: GENERAL: NAD, wearing glasses, wearing a mask, non-toxic. Wound VAC in place. EYE EXAM: Normal conjunctiva. PERRL, no anisocoria and EOM's grossly intact w/o pain. OROPHARYNX: Moist mucus membranes. Grossly normal dentition. NECK: Supple, no nuchal rigidity, no adenopathy, non-tender. No signs of meningismus. LUNGS: Clear to auscultation. Normal chest wall mechanics. HEART: NSR, no MRG. ABDOMEN: Abdomen soft, right-sided mid and lower abdominal pain, normo-active bowel sounds, no masses, no rebound or guarding. BACK: No CVA TTP. SKIN: No rashes and no bruising. UPPER EXTREMITIES: Upper extremities are grossly normal. LOWER EXTREMITIES: Grossly normal, no edema. NEURO EXAM: A&O x3, cranial nerves II-XII grossly intact, normal speech, moves all 4 extremities on command w/o issue. Differential diagnoses: Appendicitis, testicular torsion, infections, diverticulitis, UTI, obstruction, mesenteric ischemia, aortic pathology, inflammatory bowel disease, renal colic, PUD, pancreatitis, biliary pathology, hernia, volvulus, constipation, as well as other pathologies. Course: Patient was seen and evaluated the bedside. Full history physical exam was performed. Imaging Studies: See Below Cardiac monitoring: An order was placed for continuous cardiac monitoring. The monitor shows a rate of 75 with sinus rhythm. MDM: Patient did present with concern for right-sided abdominal pain. Blood work was obtained along with CT abdomen pelvis. The patient does have a hemoglobin of 8. Patient sodium 135 with a BUN and creatinine of 111 and 6 respectively. The patient still making urine. Patient CT abdomen pelvis does show the prominent sacral ulcer with underlying erosion. There is concern for possible osteomyelitis. Chronic appearing infrarenal aneurysm noted. Patient does have bilateral pleural effusions and mild ascites and may have associated gallbladder wall edema. Given this concern with right-sided abdominal pain and ultrasound the gallbladder was ordered. She was ordered antibiotics given the possibility of osteomyelitis. Did review the patient's most recent wound care note which from yesterday which showed no debridement with wound was chemically cauterized. Did recommend continuing the wound VAC. Patient is awaiting an [facility] cushion and the patient is tentatively scheduled for the OR on March 11 patient is are wishing to forego this due to starting dialysis. Patient was seen by nephrology Dr. Mirza on January 25 who does a referral to vascular surgery as well as some free dye dialysis planning was made with [facility]. Patient reportedly did have a positive pseudomonal surface culture that was virtually chaudhry resistant with the exception of meropenem or Tobramycin. Patient never had any reported follow-up with ID. There was a note made that he was to follow-up with [facility] ID but unsure as whether or not he has. "Ultrasound cannot rule out a calculus cholecystitis. I did speak with on-call general surgery Alicia Barajas PA-C. Recommending HIDA scan and medical admission at this time. I did speak with Dr. Tony with nephrology as the patient may eventually require dialysis but does not emergently need it at this time and does appear to be volume overloaded but is not tachypneic tachycardic or hypoxic. Patient was ordered the Lasix 60 mg IV. I did subsequently speak with LUIS Deluna and the patient was admitted by Dr. Caban. Past Med/Surg History Medical History Abdominal aortic aneurysm (~2014) S/p Type A dissection with emergent repair in 2014 Later found to have AAA 3.5cm- followed by vascular surgery with medical management Anemia due to chronic kidney disease Anxiety Atrial fibrillation Follows with [facility] cardiology (Dr. Jarvis) On Eliquis BPH with obstruction/lower urinary tract symptoms DENIES ENLARGED PROSTATE Chronic kidney disease, stage V History of CHF (congestive heart failure) 2003 Hyperlipidemia Hypertension Lumbar spinal stenosis Mitral regurgitation Neurogenic bladder Self Catheterization since Aortic repair Neuropathic pain PTSD (post-traumatic stress disorder) POST AORTIC DISSECTION Sleep apnea CPAP Spinal cord cysts Pt states L1 and L2, dx 05/2021, by Dr. 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 History of revision of total hip arthroplasty left History of rhinoplasty History of tooth extraction History of total knee replacement RT History of total left hip arthroplasty (~12/2019) History of transurethral resection of prostate Nausea and vomiting after administration of anesthetic agent S/P debridement (06/27/21) Excisional Debridement Sacral Decubitus Ulcer down to muscle level 4cm x 6cm - Ranjeet Myers DO 06/27/2021 Excisional Debridement of Sacral Decubitus Ulcer Down to Bone, 11cm x 10cm(Not Applicable) - Ranjeet Myers DO 07/25/2021 S/P revision of total hip S/P total right hip arthroplasty Family History Grandmother Family history of diabetes mellitus Mother Gallbladder disease Father Prostate cancer Myocardial infarction Hypertension Other Family history non-contributory No family history of adverse response to anesthesia Denies family history of Ovarian cancer Breast cancer Colorectal cancer Social History Smoking Status: Never smoker Second Hand Exposure: No (hx -- used to smoke); Hx Alcohol Use: No Hx Substance Use: No Preferred Language: [place]ese Communication Ability: Effective Visual Impairment: Limited Hearing Ability: Normal Youth Career Specialist Required: No Beliefs That Will Affect Care: None marital status: Current Living Situation: Spouse Current Living Situation Comment: Lives with at home current occupational status: retired How many Children do You have: 1 Feels Safe at Home: Yes Childhood Exposure to Second-Hand Smoke: Yes (father did ) Diet Comment: low sugar, low phospate caffeine: Yes (tea) during the past year weight has: remained stable Dental Care, Regularly: Yes Physical Activity Frequency: Does not Exercise Physical Activity Frequency Comment: goes to PT twice a week Seatbelt Use: always Sunscreen Use: Yes Do you think of yourself as: straight/heterosexual Gender Identity: Male Assistive Devices: Walker and Wheelchair Allergies Allergies Allergy/AdvReac Type Severity Reaction Status Date / Time tetracycline Allergy Intermediate HIVES Verified 02/05/22 11:58 morphine AdvReac Intermediate Nausea Verified 02/05/22 11:58 Home Meds Home Medications Medication Instructions Recorded Confirmed multivitamin with minerals 1 tab PO QAM tab 04/06/18 02/05/22 cholecalciferol (vitamin D3) 50 50 mcg PO QPM 12/31/19 02/05/22 mcg (2,000 unit) tablet (Vitamin D3) atorvastatin 20 mg tablet (Lipitor) 20 mg PO QPM tab 05/11/21 02/05/22 acetaminophen 500 mg tablet 1,000 mg PO DIRECTED PRN 07/13/21 02/05/22 (Tylenol Extra Strength) Previous Rx's Medication Instructions Recorded azelastine 205.5 mcg (0.15 %) 1 spray INTNAS HS PRN #30 ml 09/04/20 nasal spray minoxidil 10 mg tablet 10 mg PO QAM #90 tab 12/18/20 sodium bicarbonate 650 mg tablet 650 mg PO BID #180 tab 07/04/21 ferrous sulfate 325 mg (65 mg 325 mg PO BIDM #60 tab 08/01/21 iron) tablet,delayed release metoprolol succinate 25 mg 25 mg PO QAM #30 tab 08/01/21 tablet,extended release 24 hr methenamine hippurate 1 gram tablet 1 g PO DAILY #30 tab 09/27/21 apixaban 2.5 mg tablet (Eliquis) 2.5 mg PO BID #180 tab 12/13/21 gabapentin 300 mg capsule 300 mg PO BID #60 cap 01/02/22 Wheelchair (Powered) (Power #1 ea 01/04/22 Wheelchair) darbepoetin nimisha in polysorbat 60 60 mcg SUBCUT .every other week #2 01/08/22 mcg/0.3 mL in polysorbate syringe injection syringe (Aranesp) spironolactone 50 mg tablet 50 mg PO DAILY #90 tab 01/25/22 torsemide 40 mg tablet 80 mg PO BID #120 tab 01/25/22 amoxicillin 500 mg capsule 500 mg PO BID #28 cap 01/28/22 nortriptyline 25 mg capsule 25 mg PO HS #30 cap 02/01/22 Results & Data (ED) Vital Signs Vital Signs - 24 hr 02/05/22 08:56 02/05/22 09:11 02/05/22 11:23 Temperature 36.7 C Temperature Source Oral Pulse Rate 65 72 Pulse Rate [Finger] 71 Pulse Rhythm [Finger] Regular Respiratory Rate 18 18 18 Respiratory Effort / Characteristics Non-Labored Non-Labored Respiratory Depth Normal Normal Respiratory Pattern Regular Blood Pressure 117/86 Blood Pressure [Right Arm] 128/77 Blood Pressure Mean 96 Blood Pressure Mean [Right Arm] 94 Pulse Oximetry 96 97 97 Oxygen Delivery Method Room Air Room Air Room Air Sepsis Recent Fever Within 48 Hours No Sepsis New/Unexplained Change in Mental Status No Sepsis Action Taken by Nursing No Action Required Home Medications Current Medication List: was personally reviewed by me Laboratory Data Attestation: I reviewed the patient's lab results. Result diagrams: 02/05/22 09:21 02/05/22 09:21 Lab Results 02/05/22 02/05/22 02/05/22 Range/Units 09:21 09:21 09:21 WBC 5.15 (4.8-10.8) K/ul RBC 2.76 L (4.63-6.08) M/uL Hgb 8.4 L (14.0-18.0) g/dl Hct 25.9 L (40.1-51.0) % MCV 93.8 (80.0-100.0) fL MCH 30.4 (25.0-34.0) pg MCHC 32.4 (32.0-36.0) g/dL RDW Std Deviation 48.8 H (36.4-46.3) fL RDW Coeff of Hector 14.5 (11.5-14.5) % Plt Count 147 (130-400) K/uL MPV 8.8 L (9.4-12.4) fL Immature Gran % (Auto) 0.4 % Neut % (Auto) 69.0 % Lymph % (Auto) 11.5 % [place] % (Auto) 10.9 % Eos % (Auto) 7.2 % Baso % (Auto) 1.0 % Neut # (Auto) 3.56 (1.4-6.5) K/uL Lymph # (Auto) 0.59 L (1.2-3.4) K/uL [place] # (Auto) 0.56 (0.24-0.82) K/uL Eos # (Auto) 0.37 (0-0.50) K/uL Baso # (Auto) 0.05 (0-0.2) K/uL Immature Gran # (Auto) 0.02 (0.00-0.02) K/uL PT 13.1 H (9.0-12.0) Seconds INR 1.2 H (0.9-1.1) Sodium 135 L (136-145) mmol/L Potassium 4.9 (3.5-5.1) mmol/L Chloride 101 (98-107) mmol/L Carbon Dioxide 25 (21-32) mmol/L Anion Gap 9 (3-11) BUN 111 H (6-23) mg/dl Creatinine 6.04 H* (0.6-1.4) mg/dl Est Cr Clr Drug Dosing 13.5 ml/min Est GFR ( Amer) 9.7 ml/min Est GFR (Non-Af Amer) 8.3 ml/min BUN/Creatinine Ratio 18.4 (10-20) Glucose 87 (70-99(Fasting)) mg/dl Calcium 8.8 (8.5-10.1) mg/dl Total Bilirubin 0.5 (0.2-1.0) mg/dl AST 30 (13-39) U/L ALT 31 (7-52) U/L Alkaline Phosphatase 142 H (34-104) U/L B-Natriuretic Peptide (0-100) pg/ml Total Protein 6.4 (6.0-8.3) gm/dl Albumin 3.6 (3.4-5.0) gm/dl Globulin 2.8 (2.5-4.0) gm/dl Albumin/Globulin Ratio 1.3 (0.9-2) Lipase 106 H (11-82) U/L SARS-CoV-2, RNA, NAAT (NEGATIVE) 02/05/22 02/05/22 Range/Units 09:21 09:30 WBC (4.8-10.8) K/ul RBC (4.63-6.08) M/uL Hgb (14.0-18.0) g/dl Hct (40.1-51.0) % MCV (80.0-100.0) fL MCH (25.0-34.0) pg MCHC (32.0-36.0) g/dL RDW Std Deviation (36.4-46.3) fL RDW Coeff of Hector (11.5-14.5) % Plt Count (130-400) K/uL MPV (9.4-12.4) fL Immature Gran % (Auto) % Neut % (Auto) % Lymph % (Auto) % [place] % (Auto) % Eos % (Auto) % Baso % (Auto) % Neut # (Auto) (1.4-6.5) K/uL Lymph # (Auto) (1.2-3.4) K/uL [place] # (Auto) (0.24-0.82) K/uL Eos # (Auto) (0-0.50) K/uL Baso # (Auto) (0-0.2) K/uL Immature Gran # (Auto) (0.00-0.02) K/uL PT (9.0-12.0) Seconds INR (0.9-1.1) Sodium (136-145) mmol/L Potassium (3.5-5.1) mmol/L Chloride (98-107) mmol/L Carbon Dioxide (21-32) mmol/L Anion Gap (3-11) BUN (6-23) mg/dl Creatinine (0.6-1.4) mg/dl Est Cr Clr Drug Dosing ml/min Est GFR ( Amer) ml/min Est GFR (Non-Af Amer) ml/min BUN/Creatinine Ratio (10-20) Glucose (70-99(Fasting)) mg/dl Calcium (8.5-10.1) mg/dl Total Bilirubin (0.2-1.0) mg/dl AST (13-39) U/L ALT (7-52) U/L Alkaline Phosphatase (34-104) U/L B-Natriuretic Peptide 526 H (0-100) pg/ml Total Protein (6.0-8.3) gm/dl Albumin (3.4-5.0) gm/dl Globulin (2.5-4.0) gm/dl Albumin/Globulin Ratio (0.9-2) Lipase (11-82) U/L SARS-CoV-2, RNA, NAAT NEGATIVE (NEGATIVE) Administered Medications Discontinued Medications Furosemide (Furosemide 40 Mg/4 Ml Vial) 60 mg IV ONE ONE Stop: 02/05/22 10:15 Last Admin: 02/05/22 11:26 Dose: 60 mg Documented by: [id number] Meropenem 500 mg/ Syringe 10 mls @ 2 mls/min IV NOW ONE; Protocol Stop: 02/05/22 10:34 Last Admin: 02/05/22 11:27 Dose: 2 mls/min Documented by: [id number] Daptomycin 550 mg/ Syringe 11 mls @ 5.5 mls/min IV NOW ONE; Protocol Stop: 02/05/22 11:01 Last Admin: 02/05/22 11:27 Dose: 5.5 mls/min Documented by: [id number] Morphine Sulfate (Morphine Sulfate 4 Mg/Ml 1 Ml Carp\\Vial) 4 mg IV NOW STA Stop: 02/05/22 10:35 Last Admin: 02/05/22 10:40 Dose: 4 mg Documented by: [id number] Ondansetron HCl (Ondansetron Inj 2 Mg/Ml 2 Ml Vial) 4 mg IV NOW STA Stop: 02/05/22 10:35 Last Admin: 02/05/22 10:38 Dose: 4 mg Documented by: [id number] Imaging Data Radiologist's Impression: Abdomen/Pelvis CT 02/05/22 09:09 CT abd pelvis wo con CLINICAL HISTORY: R sided ab pain; CKD, h/o infrarenal AAA TECHNIQUE: Helical axial images of the abdomen and pelvis were obtained. Automated dose lowering techniques and/or adjustment according to patient size were utilized for this exam. This exam was performed without intravenous contrast. CT DOSE: 1152.56 mGy.cm COMPARISON: Comparison is made to CT abdomen pelvis 05/05/2018 FINDINGS: Exam is limited by artifact from patient positioning. Lower chest: Bilateral pleural effusion is increased from prior exam. There is associated atelectasis. Cardiomegaly is partially visualized. Liver: Unremarkable. No focal lesions are seen. Gallbladder and biliary tree: The gallbladder is prominent. There is suggestion of gallbladder wall edema. No intra- or extrahepatic biliary ductal dilation. Pancreas: Unremarkable, no focal lesions. Spleen: Unremarkable. Adrenals: Unremarkable. Kidneys and ureters: 12 mm cyst is seen in the right kidney. Bladder: Diffuse homogeneous wall thickening is seen. Reproductive organs: Evaluation is limited by streak artifact from bilateral hip arthroplasties. Bowel: Unremarkable appearance of the bowel. The appendix is normal. A hiatal hernia is seen. There is postsurgical change of gastric bypass surgery. Lymph nodes Retroperitoneal: Subcentimeter lymph nodes are noted. Mesenteric: Unremarkable. Pelvic: Unremarkable. Peritoneum: Mild ascites is seen. Vessels: An infrarenal aortic aneurysm is seen measuring up to 31 mm in diameter, 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 Abdominal wall: Sacral soft tissue defect compatible with ulcer. Focal defect in the lower sacrum/coccyx is new from prior exam. Bones: Degenerative changes in the visualized spine. Chronic defect is seen in the right iliac body. Posterior fixation hardware is seen spanning L3-L5. 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 IMPRESSION: 1. Prominent sacral ulcer with underlying sacral erosion, although age indeterminate, this is concerning for osteomyelitis. 2. Interval development of bilateral pleural effusions and mild ascites. Evaluation is limited by noncontrast technique, however there is suggestion of gallbladder wall edema. This may be reactive or represent acute cholecystitis in this patient with right-sided abdominal pain. 3. Wall thickening of the bladder is seen which may represent cystitis versus chronic outlet obstruction. Correlation with urinalysis is recommended. 4. 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 ACT 112: Negative or not required by law. Electronically signed by: Aren Forbes M.D. 02/05/2022 10:00 AM Gallbladder Ultrasound 02/05/22 10:09 ABDOMINAL ULTRASOUND, RIGHT UPPER QUADRANT HISTORY: Right-sided abdominal pain.. COMPARISON: Abdomen and pelvis CT 02/05/2022. FINDINGS: Pancreas: The pancreatic tail is obscured by overlying bowel gas. The remaining portions of the pancreas are within normal limits. Liver: No hepatic masses. The liver measures 19 cm in length. Trace perihepatic fluid. The main portal vein is patent. Gallbladder: The gallbladder is distended. There is mild gallbladder wall thickening/edema along the hepatic surface. Small amount of gallbladder sludge is noted. No definite gallstones. CBD: 6 mm. Right kidney: No hydronephrosis. Atrophic/echogenic kidney. Miscellaneous: Trace ascites seen throughout the abdomen. IMPRESSION: 1. Distended gallbladder containing a small amount of sludge. No definite gallstones. 2. Mild gallbladder wall thickening/edema. This is likely due to the patient's diffuse edematous state. Acalculus cholecystitis is considered less likely but not entirely excluded. 3. Trace ascites. ACT 112: Negative or not required by law. Electronically signed by: Victoriano Mcclain M.D. 02/05/2022 11:34 AM Discharge Plan Visit Data Chief Complaint: Abdominal Pain Stated Complaint: R SIDE AB PAIN ED Provider: Fabian Haley Discharge Problem: Osteomyelitis of sacrum, Volume overload, CKD (chronic kidney disease) stage 5, GFR less than 15 ml/min, Abdominal pain, Anemia Patient Disposition: Admitted As Inpatient Forms Stand Alone Forms: [place] Prescriptions Prescriptions: No Action multivitamin with minerals tablet 1 tab PO QAM RF: 0 nortriptyline 25 mg capsule 25 mg PO HS Qty: 30 RF: 2 azelastine 0.15 % (205.5 mcg) spray,non-aerosol 1 spray INTNAS HS PRN (Reason: seasonal allergies) Qty: 30 RF: 2 minoxidil 10 mg tablet 10 mg PO QAM Qty: 90 RF: 3 Eliquis 2.5 mg tablet 2.5 mg PO BID Qty: 180 RF: 3 gabapentin 300 mg capsule 300 mg PO BID Qty: 60 RF: 2 (DME) Power Wheelchair Device See Rx Instructions .Route Qty: 1 RF: 0 spironolactone 50 mg tablet 50 mg PO DAILY Qty: 90 RF: 2 torsemide 40 mg tablet 80 mg PO BID Qty: 120 RF: 2 amoxicillin 500 mg capsule 500 mg PO BID Qty: 28 RF: 2 sodium bicarbonate 650 mg tablet 650 mg PO BID Qty: 180 RF: 3 methenamine hippurate 1 gram tablet 1 g PO DAILY Qty: 30 RF: 0 atorvastatin [Lipitor] 20 mg tablet 20 mg PO QPM RF: 0 Aranesp (in polysorbate) 60 mcg/0.3 mL syringe 60 mcg subcut .every other week Qty: 2 RF: 5 cholecalciferol (vitamin D3) [Vitamin D3] 50 mcg (2,000 unit) Tablet 50 mcg PO QPM RF: 0 acetaminophen [Tylenol Extra Strength] 500 mg Tablet 1,000 mg PO DIRECTED PRN (Reason: Pain) RF: 0 metoprolol succinate 25 mg Tablet Extended Release 24 Hr 25 mg PO QAM Qty: 30 RF: 0 ferrous sulfate 325 mg (65 mg iron) Tablet,Delayed Release (Dr/Ec) 325 mg PO BIDM Qty: 60 RF: 0 Referrals Referrals: Jasiel Pineda DO [Primary Care Provider] -
[2022-02-05 09:33] LABS: Basophils # (auto) 0.05 K/uL (0-0.2); Eosinophils # (auto) 0.37 K/uL (0-0.50); Eosinophils % (auto) 7.2 %; Hematocrit (blood only) 25.9 % (40.1-51.0); Hemoglobin 8.4 g/dl (14.0-18.0); Immature Granulocytes # (auto) 0.02 K/uL (0.00-0.02); Immature Granulocytes % (auto) 0.4 %; Lymphocytes # (auto) 0.59 K/uL (1.2-3.4); Lymphocytes % (auto) 11.5 %; Mean Corpuscular Hemoglobin 30.4 pg (25.0-34.0); Mean Corpuscular Hgb Conc 32.4 g/dL (32.0-36.0); Mean Corpuscular Volume 93.8 fL (80.0-100.0); Mean Platelet Volume 8.8 fL (9.4-12.4); Monocytes # (auto) 0.56 K/uL (0.24-0.82); Monocytes % (auto) 10.9 %; Neutrophils # (auto) 3.56 K/uL (1.4-6.5); Platelet Count 147 K/uL (130-400); RDW Coefficient of Variation 14.5 % (11.5-14.5); RDW Standard Deviation 48.8 fL (36.4-46.3); Red Blood Count 2.76 M/uL (4.63-6.08); White Blood Count 5.15 K/ul (4.8-10.8)
[2022-02-05 10:00] LABS: Albumin Globulin Ratio 1.3 (0.9-2); Albumin Level 3.6 gm/dl (3.4-5.0); BUN Creatinine Ratio 18.4 (10-20); Bilirubin,Total 0.5 mg/dl (0.2-1.0); Calcium 8.8 mg/dl (8.5-10.1); Creatinine Clr Calc Pharmacy 13.5 ml/min; Est GFR (African American) 9.7 ml/min; Est GFR (Non-African American) 8.3 ml/min; Globulin 2.8 gm/dl (2.5-4.0); Potassium 4.9 mmol/L (3.5-5.1); Total Protein 6.4 gm/dl (6.0-8.3)
--- NOTE | 2022-02-05 10:02 | CT Scan Report ---
CT abd pelvis wo con CLINICAL HISTORY: R sided ab pain; CKD, h/o infrarenal AAA TECHNIQUE: Helical axial images of the abdomen and pelvis were obtained. Automated dose lowering tech niques and/or adjustment according to patient size were utilized for this exam. This exam was perfor med without intravenous contrast. CT DOSE: 1152.56 mGy.cm COMPARISON: Comparison is made to CT abdomen pelvis 05/05/2018 FINDINGS: Exam is limited by artifact from patient positioning. Lower chest: Bilateral pleural effusion is increased from prior exam. There is associated atelectasi s. Cardiomegaly is partially visualized. Liver: Unremarkable. No focal lesions are seen. Gallbladder and biliary tree: The gallbladder is prominent. There is suggestion of gallbladder wall e carlo. No intra- or extrahepatic biliary ductal dilation. Pancreas: Unremarkable, no focal lesions. Spleen: Unremarkable. Adrenals: Unremarkable. Kidneys and ureters: 12 mm cyst is seen in the right kidney. Bladder: Diffuse homogeneous wall thickening is seen. Reproductive organs: Evaluation is limited by streak artifact from bilateral hip arthroplasties. Bowel: Unremarkable appearance of the bowel. The appendix is normal. A hiatal hernia is seen. There i s postsurgical change of gastric bypass surgery. Lymph nodes Retroperitoneal: Subcentimeter lymph nodes are noted. Mesenteric: Unremarkable. Pelvic: Unremarkable. Peritoneum: Mild ascites is seen. Vessels: An infrarenal aortic aneurysm is seen measuring up to 31 mm in diameter, 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 Abdominal wall: Sacral soft tissue defect compatible with ulcer. Focal defect in the lower sacrum/danielle cyx is new from prior exam. Bones: Degenerative changes in the visualized spine. Chronic defect is seen in the right iliac body. Posterior fixation hardware is seen spanning L3-L5. 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 IMPRESSION: 1. Prominent sacral ulcer with underlying sacral erosion, although age indeterminate, this is concer janet for osteomyelitis. 2. Interval development of bilateral pleural effusions and mild ascites. Evaluation is limited by no ncontrast technique, however there is suggestion of gallbladder wall edema. This may be reactive or r epresent acute cholecystitis in this patient with right-sided abdominal pain. 3. Wall thickening of the bladder is seen which may represent cystitis versus chronic outlet obstruc tion. Correlation with urinalysis is recommended. 4. Redemonstration of chronic dissection of the infrarenal abdominal aorta extending to the left com mon iliac artery. ACT 112: Negative or not required by law. Electronically signed by: Aren Forbes M.D. 02/05/2022 10:00 AM
[2022-02-05 10:04] LABS: INR 1.2 (0.9-1.1); Prothrombin Time 13.1 Seconds (9.0-12.0)
[2022-02-05] MEDS ORDERED: FUROSEMIDE 40 MG/4 ML VIAL IV ONE (10:14)
[2022-02-05] MEDS ORDERED: MEROPENEM 500 MG in SYRINGE 0 ML IV ONE (10:30)
[2022-02-05] MEDS ORDERED: MoRPHine SULFATE 4 MG/ML 1 ML CARP\\VIAL IV STA (10:34)
[2022-02-05] MEDS ORDERED: ONDANSETRON INJ 2 MG/ML 2 ML VIAL IV STA (10:34)
[2022-02-05] MEDS ORDERED: DAPTOmycin 550 MG in SYRINGE 0 ML IV ONE (11:00)
--- NOTE | 2022-02-05 11:36 | Ultrasound Report ---
ABDOMINAL ULTRASOUND, RIGHT UPPER QUADRANT HISTORY: Right-sided abdominal pain.. COMPARISON: Abdomen and pelvis CT 02/05/2022. FINDINGS: Pancreas: The pancreatic tail is obscured by overlying bowel gas. The remaining portions of the pancr eas are within normal limits. Liver: No hepatic masses. The liver measures 19 cm in length. Trace perihepatic fluid. The main margareth l vein is patent. Gallbladder: The gallbladder is distended. There is mild gallbladder wall thickening/edema along the hepatic surface. Small amount of gallbladder sludge is noted. No definite gallstones. CBD: 6 mm. Right kidney: No hydronephrosis. Atrophic/echogenic kidney. Miscellaneous: Trace ascites seen throughout the abdomen. IMPRESSION: 1. Distended gallbladder containing a small amount of sludge. No definite gallstones. 2. Mild gallbladder wall thickening/edema. This is likely due to the patient's diffuse edematous stat e. Acalculus cholecystitis is considered less likely but not entirely excluded. 3. Trace ascites. ACT 112: Negative or not required by law. Electronically signed by: Victoriano Mcclain M.D. 02/05/2022 11:34 AM
--- NOTE | 2022-02-05 12:18 | Surgery Consultation ---
Date of Consultation February 05, 2022 Assessment & Plan (1) Right sided abdominal pain: This is a 76yM with a PMH of afib on eliquis, CKD, HTN, abdominal aortic aneurysm repair, sacral ulcer, who presents to the [facility] on 02/05/22 with right sided abdominal pain that woke him up in his sleep. In the ER a CT a/p was obtained that revealed gallbladder wall edema, bilateral pleural effusions, mild ascites, along with wall thickening of the bladder. Follow up with a RUQ US showed a distended gallbladder containing a small amount of sludge without definite gallstones, cannot rule out acalculous cholecystitis. On exam patients abdomen is soft, non distended, with mild discomfort elicited to palpation along the R side of abdomen. Patient's vital signs are stable. Labs show WBC 5 and LFTs are unremarkable. He is noted to have an elevated BUN/Cr of 111 and 6 respectively. Na 135, K 4.9. Of note he has been followed by nephrology as he is nearing dialysis. Low suspicion for acalculous cholecystitis. CT and RUQ findings likely related to generalized edematous state. We are okay with hospitalist admitting here with nephrology consultation. Can order a HIDA scan for further evaluation, if positive patient may need sent to tertiary center for percutaneous cholecystostomy tube as he is not a surgical candidate given his extensive medical history. We will follow along and await HIDA results. History of Present Illness History of Present Illness This is a 76yM with a PMH of afib on eliquis, CKD, HTN, abdominal aortic aneurysm repair, sacral ulcer, who presents to the [facility] on 02/05/22 with right sided abdominal pain. Patient states the pain woke him up in his sleep and has been constant. When I ask him to point to where the pain is he points in the mid/lower R abdomen. At its worse he rates the pain a 6-7/10, but is currently a 3/10 after receiving pain medication He denies any fevers/chills, nausea/vomiting, CP/SOB. He last ate sloppy joes and salad yesterday evening around 7pm and is unclear what time he woke up in pain. In the ER a CT a/p was obtained that revealed gallbladder wall edema, bilateral pleural effusions, mild ascites, along with wall thickening of the bladder. Follow up with a RUQ US sophy wed a distended gallbladder containing a small amount of sludge without definite gallstones, cannot rule out acalculous cholecystitis. This is the first time patient experienced pain like this before. Says he does get some indigestion when eating spicy/greasy foods, but generally tries to stay away from them. No prior abdominal surgical history. Of note he has been followed by nephrology as he is nearing dialysis and is scheduled for outpatient vein mapping this . Allergies Allergy/AdvReac Type Severity Reaction Status Date / Time tetracycline Allergy Intermediate HIVES Verified 02/05/22 11:58 morphine AdvReac Intermediate Nausea Verified 02/05/22 11:58 Home Medications Medication Instructions Recorded Confirmed Type multivitamin with minerals 1 tab PO QAM tab 04/06/18 02/05/22 History cholecalciferol (vitamin D3) 50 50 mcg PO QPM 12/31/19 02/05/22 History mcg (2,000 unit) tablet (Vitamin D3) azelastine 205.5 mcg (0.15 %) 1 spray INTNAS HS PRN #30 ml 09/04/20 02/05/22 Rx nasal spray minoxidil 10 mg tablet 10 mg PO QAM #90 tab 12/18/20 02/05/22 Rx atorvastatin 20 mg tablet (Lipitor) 20 mg PO QPM tab 05/11/21 02/05/22 History sodium bicarbonate 650 mg tablet 650 mg PO BID #180 tab 07/04/21 02/05/22 Rx acetaminophen 500 mg tablet 1,000 mg PO DIRECTED PRN 07/13/21 02/05/22 History (Tylenol Extra Strength) ferrous sulfate 325 mg (65 mg 325 mg PO BIDM #60 tab 08/01/21 02/05/22 Rx iron) tablet,delayed release metoprolol succinate 25 mg 25 mg PO QAM #30 tab 08/01/21 02/05/22 Rx tablet,extended release 24 hr methenamine hippurate 1 gram tablet 1 g PO DAILY #30 tab 09/27/21 02/05/22 Rx apixaban 2.5 mg tablet (Eliquis) 2.5 mg PO BID #180 tab 12/13/21 02/05/22 Rx gabapentin 300 mg capsule 300 mg PO BID #60 cap 01/02/22 02/05/22 Rx Wheelchair (Powered) (Power #1 ea 01/04/22 02/01/22 Rx Wheelchair) darbepoetin nimisha in polysorbat 60 60 mcg SUBCUT .every other week #2 01/08/22 02/05/22 Rx mcg/0.3 mL in polysorbate syringe injection syringe (Aranesp) spironolactone 50 mg tablet 50 mg PO DAILY #90 tab 01/25/22 02/05/22 Rx torsemide 40 mg tablet 80 mg PO BID #120 tab 01/25/22 02/05/22 Rx amoxicillin 500 mg capsule 500 mg PO BID #28 cap 01/28/22 02/05/22 Rx nortriptyline 25 mg capsule 25 mg PO HS #30 cap 02/01/22 02/05/22 Rx Patient History Medical History Abdominal aortic aneurysm (~2014) S/p Type A dissection with emergent repair in 2014 Later found to have AAA 3.5cm- followed by vascular surgery with medical management Anemia due to chronic kidney disease Anxiety Atrial fibrillation Follows with [facility] cardiology (Dr. Jarvis) On Eliquis BPH with obstruction/lower urinary tract symptoms DENIES ENLARGED PROSTATE Chronic kidney disease, stage V History of CHF (congestive heart failure) 2003 Hyperlipidemia Hypertension Lumbar spinal stenosis Mitral regurgitation Neurogenic bladder Self Catheterization since Aortic repair Neuropathic pain PTSD (post-traumatic stress disorder) POST AORTIC DISSECTION Sleep apnea CPAP Spinal cord cysts Pt states L1 and L2, dx 05/2021, by Dr. 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 History of revision of total hip arthroplasty left History of rhinoplasty History of tooth extraction History of total knee replacement RT History of total left hip arthroplasty (~12/2019) History of transurethral resection of prostate Nausea and vomiting after administration of anesthetic agent S/P debridement (06/27/21) Excisional Debridement Sacral Decubitus Ulcer down to muscle level 4cm x 6cm - Ranjeet Myers, DO 06/27/2021 Excisional Debridement of Sacral Decubitus Ulcer Down to Bone, 11cm x 10cm(Not Applicable) - Ranjeet Myers, DO 07/25/2021 S/P revision of total hip S/P total right hip arthroplasty Family History Grandmother Family history of diabetes mellitus Mother Gallbladder disease Father Prostate cancer Myocardial infarction Hypertension Other Family history non-contributory No family history of adverse response to anesthesia Denies family history of Ovarian cancer Breast cancer Colorectal cancer Social History Smoking Status: Never smoker Second Hand Exposure: No (hx -- used to smoke); Hx Alcohol Use: No Hx Substance Use: No Preferred Language: Bangladeshi Communication Ability: Effective Visual Impairment: Limited Hearing Ability: Normal Asset Analyst Required: No Beliefs That Will Affect Care: None marital status: Current Living Situation: Spouse Current Living Situation Comment: Lives with at home current occupational status: retired How many Children do You have: 1 Feels Safe at Home: Yes Childhood Exposure to Second-Hand Smoke: Yes (father did ) Diet Comment: low sugar, low phospate caffeine: Yes (tea) during the past year weight has: remained stable Dental Care, Regularly: Yes Physical Activity Frequency: Does not Exercise Physical Activity Frequency Comment: goes to PT twice a week Seatbelt Use: always Sunscreen Use: Yes Do you think of yourself as: straight/heterosexual Gender Identity: Male Assistive Devices: Walker and Wheelchair Review of Systems Constitutional: no fever and no chills Respiratory: pain with deep breaths Cardiovascular: no chest pain Gastrointestinal: + abdominal pain (right sided belly pain); no nausea and no vomiting Physical Exam Physical Exam: awake/alert, no acute distress Respiratory: no respiratory distress Gastrointestinal (Abdomen): Inspection/Auscultation: abdomen not distended Percussion/Palpation: + abdomen tender (mild discomfort along R sided abdomen) and abdomen soft Results & Data ([facility]) Vital Signs (Past 12 Hours) Vital Signs Temp Pulse Pulse Resp BP BP Pulse Ox 02/05/22 11:23 71 18 128/77 97 02/05/22 09:11 72 18 97 02/05/22 08:56 36.7 C 65 18 117/[address] abd pelvis wo con CLINICAL HISTORY: R sided ab pain; CKD, h/o infrarenal AAA TECHNIQUE: Helical axial images of the abdomen and pelvis were obtained. Automated dose lowering techniques and/or adjustment according to patient size were utilized for this exam. This exam was performed without intravenous contrast. CT DOSE: 1152.56 mGy.cm COMPARISON: Comparison is made to CT abdomen pelvis 05/05/2018 FINDINGS: Exam is limited by artifact from patient positioning. Lower chest: Bilateral pleural effusion is increased from prior exam. There is associated atelectasis. Cardiomegaly is partially visualized. Liver: Unremarkable. No focal lesions are seen. Gallbladder and biliary tree: The gallbladder is prominent. There is suggestion of gallbladder wall edema. No intra- or extrahepatic biliary ductal dilation. Pancreas: Unremarkable, no focal lesions. Spleen: Unremarkable. Adrenals: Unremarkable. Kidneys and ureters: 12 mm cyst is seen in the right kidney. Bladder: Diffuse homogeneous wall thickening is seen. Reproductive organs: Evaluation is limited by streak artifact from bilateral hip arthroplasties. Bowel: Unremarkable appearance of the bowel. The appendix is normal. A hiatal hernia is seen. There is postsurgical change of gastric bypass surgery. Lymph nodes Retroperitoneal: Subcentimeter lymph nodes are noted. Mesenteric: Unremarkable. Pelvic: Unremarkable. Peritoneum: Mild ascites is seen. Vessels: An infrarenal aortic aneurysm is seen measuring up to 31 mm in diameter, 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 Abdominal wall: Sacral soft tissue defect compatible with ulcer. Focal defect in the lower sacrum/coccyx is new from prior exam. Bones: Degenerative changes in the visualized spine. Chronic defect is seen in the right iliac body. Posterior fixation hardware is seen spanning L3-L5. 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 IMPRESSION: 1. Prominent sacral ulcer with underlying sacral erosion, although age indeterminate, this is concerning for osteomyelitis. 2. Interval development of bilateral pleural effusions and mild ascites. Evaluation is limited by noncontrast technique, however there is suggestion of gallbladder wall edema. This may be reactive or represent acute cholecystitis in this patient with right-sided abdominal pain. 3. Wall thickening of the bladder is seen which may represent cystitis versus chronic outlet obstruction. Correlation with urinalysis is recommended. 4. 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 ACT 112: Negative or not required by law. Electronically signed by: Aren Forbes M.D. 02/05/2022 10:00 AM ABDOMINAL ULTRASOUND, RIGHT UPPER QUADRANT HISTORY: Right-sided abdominal pain.. COMPARISON: Abdomen and pelvis CT 02/05/2022. FINDINGS: Pancreas: The pancreatic tail is obscured by overlying bowel gas. The remaining portions of the pancreas are within normal limits. Liver: No hepatic masses. The liver measures 19 cm in length. Trace perihepatic fluid. The main portal vein is patent. Gallbladder: The gallbladder is distended. There is mild gallbladder wall thickening/edema along the hepatic surface. Small amount of gallbladder sludge is noted. No definite gallstones. CBD: 6 mm. Right kidney: No hydronephrosis. Atrophic/echogenic kidney. Miscellaneous: Trace ascites seen throughout the abdomen. IMPRESSION: 1. Distended gallbladder containing a small amount of sludge. No definite gallstones. 2. Mild gallbladder wall thickening/edema. This is likely due to the patient's diffuse edematous state. Acalculus cholecystitis is considered less likely but not entirely excluded. 3. Trace ascites. ACT 112: Negative or not required by law. Electronically signed by: Victoriano Mcclain M.D. 02/05/2022 11:34 AM PG Care Time/CCT Total # of Minutes Spent Total Time Spent with Patient: Total time spent is greater than 50% in coordination of care (as documented) at patient's floor/unit and/or counseling patient: Coding Level of Care Code 88256 Initial Inpt Care Lvl 2 Diagnoses Right sided abdominal pain R10.9
--- NOTE | 2022-02-05 13:30 | History & Physical Report ---
Date of Service February 05, 2022 Assessment & Plan (1) Abdominal pain: Plan: Edematous gallbladder - defer further workup/evaluation to general surgery - Pending HIDA scan - HOLD Eliquis- heparin sub q for VTE - ABX as below (2) Osteomyelitis of sacrum: Plan: Chronic with osteomyelitis history - Daptomycin and Meropenem given EMD- will continue Meropenem with pseudomass previously, change dapto to ampicillin - Renally dose - WBC count stable and afebrile - Would like to evaluate for total source control with his osteo- appreciate surgery evaluation and possibly assisting in bone biopsy - would need to coordinate with wound care to replace Vac - turn and offload every 2 hours - moisture control - able to support nutritionally when able to eat (3) CKD (chronic kidney disease) stage 5, GFR less than 15 ml/min: Plan: CKD IV progressing towards need for hemofiltration - [employer] 6 on admission but remains making urine - Electrolytes are stable - Manage volume status with diuretic therapy - Will hold his oral doses - for IV therapy and oral as supported - Appreciate Nephrology assistance - If he would decompensate - he would need temporary access for hemofiltration (4) Atrial fibrillation: Plan: Chronic- is on renal dose eliquis - will hold until surgical plan developed - heparin sub q q12 for VTE (5) Hypertension: Plan: Continue with metoprolol (6) Sacral decubitus ulcer, stage IV: Plan: Stage IV to bone - Present on admission - Continue with wound vac care- appreciate nursing wound care support - as above continue offloading and coordinate culture/biopsy (7) Sleep apnea: Plan: Continue CPAP 9-11 cm H20 at night - he will try to bring in his machine (8) Abdominal aortic aneurysm: Plan: infrarenal aortic aneurysm is seen measuring up to 31 mm in diameter, this dulce ears to be associated with a chronic dissection. 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 Patient comes to the EMD today for complaints of abdomen pain. The patient states that it started in his right lower quad last evening and continued to this morning. He has some associated nausea without vomiting. Also notes that he is retaining fluid and feels "full". Patient has multiple complex issues to include deep sacral wound that he follows with wound care for and currently is getting sharp debrided as well as chemical debridement at times. He has wound-vac in place. He also follows with Nephrology for CKD with worsening renal function. He was to have vein mapping performed on with future plans to proceed with access creation by Dr. Marroquin. He still makes urine and urinated 3-5 times per day. He is responsive to diuretics. For his wound on his sacrum, he has wound, he had osteo in sep 18, Infectious Disease was following in Aug and recommended therapy until his inflammatory/biomarkers down-trended. He has culture from January that is enterococcus sensitive to PCNs previous wound culture in December was positive for pseudomonas sensitive to Tobramycin and Meropenem. The culture in December was reported to have some presumed bone particle but was lost on its way to pathology. He endorses as well that he is likely not going to proceed with his surgical debridement with Dr. Del Toro in February with likely on coming dialysis. He is wheel chair bound since June secondary to left back and hip pain, where he reports he has a cyst but is unable to get surgery on that until he gets his sacral wound taken care of. In the EMD the patient had CT scan of his abdomen/pelvis done with gallbladder edema. General Surgery was consulted. Follow up abdominal ultrasound revealed thickened gallbladder with possible acalculous cholecystitis. HIDA scan is ordered by surgery and pending at this time. Hospitalist service was consulted for admission. He was started on Meropenem and Daptomycin for his sacral wound ulceration and sacral erosion. Surgery will be consulted for both GBD as well as Sacral wound. Will hope to possibly coordinate a bone biopsy with wound care during Vac change. Will consult ID. Nephrology will be consulted to follow his renal function and manage diuretics and volume status. He has already received 60mg of Lasix in EMD with adequate response at this time. His electrolytes are stable and as above continues to be able to make urine. Continue with diuretic therapy for volume management. COVID test on admission is: NEGATIVE Allergies Allergy/AdvReac Type Severity Reaction Status Date / Time tetracycline Allergy Intermediate HIVES Verified 02/05/22 11:58 morphine AdvReac Intermediate Nausea Verified 02/05/22 11:58 Home Medications Medication Instructions Recorded Confirmed Type cholecalciferol (vitamin D3) 50 50 mcg PO QPM 12/31/19 02/13/22 History mcg (2,000 unit) tablet (Vitamin D3) azelastine 205.5 mcg (0.15 %) 1 spray intranasal HS PRN seasonal 09/04/20 02/13/22 Rx nasal spray allergies #30 mL minoxidil 10 mg tablet 10 mg PO QAM #90 tabs 12/18/20 02/13/22 Rx atorvastatin 20 mg tablet (Lipitor) 20 mg PO QPM 05/11/21 02/13/22 History acetaminophen 500 mg tablet 1,000 mg PO DIRECTED PRN Pain 07/13/21 02/13/22 History (Tylenol Extra Strength) ferrous sulfate 325 mg (65 mg 325 mg PO BIDM #60 tabs 08/01/21 02/13/22 Rx iron) tablet,delayed release metoprolol succinate 25 mg 25 mg PO QAM #30 tabs 08/01/21 02/13/22 Rx tablet,extended release 24 hr apixaban 2.5 mg tablet (Eliquis) 2.5 mg PO BID #180 tabs 12/13/21 02/13/22 Rx Wheelchair (Powered) (Power #1 ea 01/04/22 02/13/22 Rx Wheelchair) nortriptyline 25 mg capsule 25 mg PO HS #30 caps 02/01/22 02/13/22 Rx gabapentin 300 mg capsule 300 mg PO HS #60 caps 02/12/22 02/13/22 Rx torsemide 40 mg tablet 80 mg PO DAILY #120 tabs 02/12/22 02/13/22 Rx vitamin B complex and vitamin C 1 cap PO QAM #30 caps 02/12/22 02/13/22 Rx no.20-folic acid 1 mg capsule (Renal Caps) oxycodone-acetaminophen 5 mg-325 1 tab PO Q8H PRN 02/13/22 02/13/22 History mg tablet (Percocet) Past Med/Surg History Medical History (Updated 02/16/22 @ 00:08 by León Reno) Abdominal aortic aneurysm (~2014) S/p Type A dissection with emergent repair in 2014 Later found to have AAA 3.5cm- followed by vascular surgery with medical management Abdominal pain Abdominal pain Anemia due to chronic kidney disease Anxiety Atrial fibrillation Follows with [facility] cardiology (Dr. Jarvis) On Eliquis BPH with obstruction/lower urinary tract symptoms DENIES ENLARGED PROSTATE Chronic kidney disease, stage V CKD (chronic kidney disease) stage 5, GFR less than 15 ml/min History of CHF (congestive heart failure) 2003 Hyperlipidemia Hypertension Lumbar spinal stenosis Mitral regurgitation Neurogenic bladder Self Catheterization since Aortic repair Neuropathic pain PTSD (post-traumatic stress disorder) POST AORTIC DISSECTION Sleep apnea CPAP Spinal cord cysts Pt states L1 and L2, dx 05/2021, by Dr. Shrestha at [facility] Volume overload Surgical History (Updated 02/08/22 @ 10:48 by Patsy Christensen RN) History of arthroplasty of left hip History of arthroscopy RT KNEE History of bladder surgery History of cardiac catheterization 2004 - no stents - [facility] in [place] History of cardioversion mult History of cataract surgery RT/LEFT History of colonoscopy History of esophagogastroduodenoscopy (EGD) History of gastric bypass 2010 History of lumbar fusion History of open reduction and internal fixation (ORIF) procedure RT WRIST 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 History of revision of total hip arthroplasty left History of rhinoplasty History of tooth extraction History of total knee replacement RT History of total left hip arthroplasty (~12/2019) History of transurethral resection of prostate Nausea and vomiting after administration of anesthetic agent S/P debridement (06/27/21) Excisional Debridement Sacral Decubitus Ulcer down to muscle level 4cm x 6cm - Ranjeet Myers, DO 06/27/2021 Excisional Debridement of Sacral Decubitus Ulcer Down to Bone, 11cm x 10cm(Not Applicable) - Ranjeet Myers, DO 07/25/2021 S/P debridement (02/08/22) Sacral Wound Debridment, Sacral bone biopsy(Not Applicable) - Jose Le, S/P revision of total hip S/P total right hip arthroplasty Family History Grandmother Family history of diabetes mellitus Mother Gallbladder disease Father Prostate cancer Myocardial infarction Hypertension Other Family history non-contributory No family history of adverse response to anesthesia Denies family history of Ovarian cancer Breast cancer Colorectal cancer Social History Smoking Status: Never smoker Second Hand Exposure: No; Hx Alcohol Use: No Hx Substance Use: No Preferred Language: Liberian Communication Ability: Effective Visual Impairment: Limited Hearing Ability: Normal Poster Required: No Beliefs That Will Affect Care: None marital status: Current Living Situation: Spouse Current Living Situation Comment: Lives with at home current occupational status: retired How many Children do You have: 1 Feels Safe at Home: Yes Childhood Exposure to Second-Hand Smoke: Yes (father did ) Diet Comment: low sugar, low phospate caffeine: Yes (tea) during the past year weight has: remained stable Dental Care, Regularly: Yes Physical Activity Frequency: Does not Exercise Physical Activity Frequency Comment: goes to PT twice a week Seatbelt Use: always Sunscreen Use: Yes Do you think of yourself as: straight/heterosexual Gender Identity: Male Assistive Devices: Wheelchair Review of Systems Review of Systems: REVIEW OF SYSTEMS: Constitutional: No fever, sweats or chills Eyes: No diplopia, no worsening or blurred vision ENT: normal hearing, no trouble swallowing Respiratory: No cough, sputum, dyspnea at rest or on exertion Cardiovascular: No chest pain, tightness or palpitations Abdomen: (+) pain, nausea, No vomiting, diarrhea or constipation Neurologic: (+) weakness, wheel chair bound, NO tingling, or balance problems Psychiatric: No anxiety or depression Skin: (+) sacral wound with wound-vac Physical Exam Physical Exam: PHYSICAL EXAM: General: awake, alert, no apparent distress Head: Normocephalic, atraumatic ENT: PERRL, EOMI, no pharyngeal exudate, mucous membranes moist Neuro: AAO x 3, speech clear and appropriate, strength intact bilaterally 5/5, sensation intact and equal all extremities and dermatomes, no pronator drift Chest: equal rise and fall of the chest, no accessory muscle use, no heaves or thrills, Clear to auscultation, on room air, Cardiac: Regular rate and rhythm, telemetry reviewed, skin warm dry, cap refill <3 seconds, peripheral pulses +2 no JVD, no murmur, no edema GI: NABS x 4 quadrants, softly distended, with pain in rlq and some epigastric pain : Spontaneously voiding, no pain, no CVA tenderness, Extremities: Normal inspection, no peripheral edema or erythema, calfs nontender to palpation Psych: Normal mood and affect Skin: no rash or erythema Results & Data Results & Data ([facility]) Vital Signs (Past 12 Hours) Vital Signs Temp Pulse Pulse Resp BP BP Pulse Ox 02/05/22 11:23 71 18 128/77 97 02/05/22 09:11 72 18 97 02/05/22 08:56 36.7 C 65 18 117/86 96 Laboratory Results Abnormal lab results 02/05/22 02/05/22 02/05/22 Range/Units 09:21 09:21 09:21 RBC 2.76 L (4.63-6.08) M/uL Hgb 8.4 L (14.0-18.0) g/dl Hct 25.9 L (40.1-51.0) % RDW Std Deviation 48.8 H (36.4-46.3) fL MPV 8.8 L (9.4-12.4) fL Lymph # (Auto) 0.59 L (1.2-3.4) K/uL PT 13.1 H (9.0-12.0) Seconds INR 1.2 H (0.9-1.1) Sodium 135 L (136-145) mmol/L BUN 111 H (6-23) mg/dl Creatinine 6.04 H* (0.6-1.4) mg/dl Alkaline Phosphatase 142 H (34-104) U/L B-Natriuretic Peptide (0-100) pg/ml Lipase 106 H (11-82) U/L 02/05/22 Range/Units 09:21 RBC (4.63-6.08) M/uL Hgb (14.0-18.0) g/dl Hct (40.1-51.0) % RDW Std Deviation (36.4-46.3) fL MPV (9.4-12.4) fL Lymph # (Auto) (1.2-3.4) K/uL PT (9.0-12.0) Seconds INR (0.9-1.1) Sodium (136-145) mmol/L BUN (6-23) mg/dl Creatinine (0.6-1.4) mg/dl Alkaline Phosphatase (34-104) U/L B-Natriuretic Peptide 526 H (0-100) pg/ml Lipase (11-82) U/L Diagnostic Findings Abdomen/Pelvis CT 02/05/22 09:09 CT abd pelvis wo con CLINICAL HISTORY: R sided ab pain; CKD, h/o infrarenal AAA TECHNIQUE: Helical axial images of the abdomen and pelvis were obtained. Automated dose lowering techniques and/or adjustment according to patient size were utilized for this exam. This exam was performed without intravenous contrast. CT DOSE: 1152.56 mGy.cm COMPARISON: Comparison is made to CT abdomen pelvis 05/05/2018 FINDINGS: Exam is limited by artifact from patient positioning. Lower chest: Bilateral pleural effusion is increased from prior exam. There is associated atelectasis. Cardiomegaly is partially visualized. Liver: Unremarkable. No focal lesions are seen. Gallbladder and biliary tree: The gallbladder is prominent. There is suggestion of gallbladder wall edema. No intra- or extrahepatic biliary ductal dilation. Pancreas: Unremarkable, no focal lesions. Spleen: Unremarkable. Adrenals: Unremarkable. Kidneys and ureters: 12 mm cyst is seen in the right kidney. Bladder: Diffuse homogeneous wall thickening is seen. Reproductive organs: Evaluation is limited by streak artifact from bilateral hip arthroplasties. Bowel: Unremarkable appearance of the bowel. The appendix is normal. A hiatal hernia is seen. There is postsurgical change of gastric bypass surgery. Lymph nodes Retroperitoneal: Subcentimeter lymph nodes are noted. Mesenteric: Unremarkable. Pelvic: Unremarkable. Peritoneum: Mild ascites is seen. Vessels: An infrarenal aortic aneurysm is seen measuring up to 31 mm in diameter, 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 Abdominal wall: Sacral soft tissue defect compatible with ulcer. Focal defect in the lower sacrum/coccyx is new from prior exam. Bones: Degenerative changes in the visualized spine. Chronic defect is seen in the right iliac body. Posterior fixation hardware is seen spanning L3-L5. 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 IMPRESSION: 1. Prominent sacral ulcer with underlying sacral erosion, although age indeterminate, this is concerning for osteomyelitis. 2. Interval development of bilateral pleural effusions and mild ascites. Evaluation is limited by noncontrast technique, however there is suggestion of gallbladder wall edema. This may be reactive or represent acute cholecystitis in this patient with right-sided abdominal pain. 3. Wall thickening of the bladder is seen which may represent cystitis versus chronic outlet obstruction. Correlation with urinalysis is recommended. 4. 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 ACT 112: Negative or not required by law. Electronically signed by: Aren Forbes M.D. 02/05/2022 10:00 AM Gallbladder Ultrasound 02/05/22 10:09 ABDOMINAL ULTRASOUND, RIGHT UPPER QUADRANT HISTORY: Right-sided abdominal pain.. COMPARISON: Abdomen and pelvis CT 02/05/2022. FINDINGS: Pancreas: The pancreatic tail is obscured by overlying bowel gas. The remaining portions of the pancreas are within normal limits. Liver: No hepatic masses. The liver measures 19 cm in length. Trace perihepatic fluid. The main portal vein is patent. Gallbladder: The gallbladder is distended. There is mild gallbladder wall thickening/edema along the hepatic surface. Small amount of gallbladder sludge is noted. No definite gallstones. CBD: 6 mm. Right kidney: No hydronephrosis. Atrophic/echogenic kidney. Miscellaneous: Trace ascites seen throughout the abdomen. IMPRESSION: 1. Distended gallbladder containing a small amount of sludge. No definite gallstones. 2. Mild gallbladder wall thickening/edema. This is likely due to the patient's diffuse edematous state. Acalculus cholecystitis is considered less likely but not entirely excluded. 3. Trace ascites. ACT 112: Negative or not required by law. Electronically signed by: Victoriano Mcclain M.D. 02/05/2022 11:34 AM Medications Administered Home Medications multivitamin with minerals 1 tab PO QAM tab 04/06/18 [History Confirmed 02/05/22] cholecalciferol (vitamin D3) 50 mcg (2,000 unit) tablet (Vitamin D3) 50 mcg PO QPM 12/31/19 [History Confirmed 02/05/22] azelastine 205.5 mcg (0.15 %) nasal spray 1 spray INTNAS HS PRN #30 ml 09/04/20 [Rx Confirmed 02/05/22] minoxidil 10 mg tablet 10 mg PO QAM #90 tab 12/18/20 [Rx Confirmed 02/05/22] atorvastatin 20 mg tablet (Lipitor) 20 mg PO QPM tab 05/11/21 [History Confirmed 02/05/22] sodium bicarbonate 650 mg tablet 650 mg PO BID #180 tab 07/04/21 [Rx Confirmed 02/05/22] acetaminophen 500 mg tablet (Tylenol Extra Strength) 1,000 mg PO DIRECTED PRN 07/13/21 [History Confirmed 02/05/22] ferrous sulfate 325 mg (65 mg iron) tablet,delayed release 325 mg PO BIDM #60 tab 08/01/21 [Rx Confirmed 02/05/22] metoprolol succinate 25 mg tablet,extended release 24 hr 25 mg PO QAM #30 tab 08/01/21 [Rx Confirmed 02/05/22] methenamine hippurate 1 gram tablet 1 g PO DAILY #30 tab 09/27/21 [Rx Confirmed 02/05/22] apixaban 2.5 mg tablet (Eliquis) 2.5 mg PO BID #180 tab 12/13/21 [Rx Confirmed 02/05/22] gabapentin 300 mg capsule 300 mg PO BID #60 cap 01/02/22 [Rx Confirmed 02/05/22] Wheelchair (Powered) (Power Wheelchair) #1 ea 01/04/22 [Rx Confirmed 02/01/22] darbepoetin nimisha in polysorbat 60 mcg/0.3 mL in polysorbate injection syringe (Aranesp) 60 mcg SUBCUT .every other week #2 syringe 01/08/22 [Rx Confirmed 02/05/22] spironolactone 50 mg tablet 50 mg PO DAILY #90 tab 01/25/22 [Rx Confirmed 02/05/22] torsemide 40 mg tablet 80 mg PO BID #120 tab 01/25/22 [Rx Confirmed 02/05/22] amoxicillin 500 mg capsule 500 mg PO BID #28 cap 01/28/22 [Rx Confirmed 02/05/22] nortriptyline 25 mg capsule 25 mg PO HS #30 cap 02/01/22 [Rx Confirmed 02/05/22] Discontinued Medications Furosemide (Furosemide 40 Mg/4 Ml Vial) 60 mg IV ONE ONE Stop: 02/05/22 10:15 Last Admin: 02/05/22 11:26 Dose: 60 mg Documented by: [id number] Meropenem 500 mg/ Syringe 10 mls @ 2 mls/min IV NOW ONE; Protocol Stop: 02/05/22 10:34 Last Admin: 02/05/22 11:27 Dose: 2 mls/min Documented by: [id number] Daptomycin 550 mg/ Syringe 11 mls @ 5.5 mls/min IV NOW ONE; Protocol Stop: 02/05/22 11:01 Last Admin: 02/05/22 11:27 Dose: 5.5 mls/min Documented by: [id number] Morphine Sulfate (Morphine Sulfate 4 Mg/Ml 1 Ml Carp\\Vial) 4 mg IV NOW STA Stop: 02/05/22 10:35 Last Admin: 02/05/22 10:40 Dose: 4 mg Documented by: [id number] Ondansetron HCl (Ondansetron Inj 2 Mg/Ml 2 Ml Vial) 4 mg IV NOW STA Stop: 02/05/22 10:35 Last Admin: 02/05/22 10:38 Dose: 4 mg Documented by: [id number] ECG Additional Comments: ECG pending Code Status & VTE Plan Code Status CODE: FULL VTE: SCDS, Heparin 5000 units subq q12 VTE Prophylaxis Plan VTE Prophylaxis will be ordered: Yes Supervising Physician Co-Signing Physician Notes I personally saw and examined the patient. I verified all wellington points and agree with LUIS Win with the following exceptions and/or additions: 76 year old male admission for RLQ abdominal pain. Creatinine increased from 4.8 to 6.04 A/P Abdominal pain - unclear etiology of this, will get HIDA scan although low likelihood abdominal pain is coming from his gallbladder on exam. ?MSK MARINO - consult nephrology, no obstructive uropathy on CT Osteomyelitis of sacrum - consult surgery. Abx as above PG Care Time/CCT Total # of Minutes Spent Total Time Spent with Patient: Total time spent is greater than 50% in coordination of care (as documented) at patient's floor/unit and/or counseling patient: Coding Level of Care Code 79814 Initial Inpt Care Lvl 3 Diagnoses Abdominal pain R10.9 Osteomyelitis of sacrum M46.28 CKD (chronic kidney disease) stage 5, GFR less than 15 ml/min N18.5 Atrial fibrillation I48.2 Atrial fibrillation type: permanent Hypertension I10 Hypertension type: essential hypertension Sacral decubitus ulcer, stage IV L89.154 Sleep apnea G47.30 Abdominal aortic aneurysm I71.4 Presence of rupture: without rupture Inability to walk R26.2 (1) Abdominal aortic aneurysm Presence of rupture: without rupture Qualified Code(s): I71.4 - Abdominal aortic aneurysm, without rupture (2) Atrial fibrillation Atrial fibrillation type: permanent Qualified Code(s): I48.2 - Chronic atrial fibrillation (3) Hypertension Hypertension type: essential hypertension Qualified Code(s): I10 - Essential (primary) hypertension
[2022-02-05 13:41] LABS: Appearance Urine Clear (Clear); Bacteria Urine Automated Negative (Negative); Bilirubin Urine Negative (Negative); Blood Urine Negative (Negative); Cast Urine Automated 0 /lpf (0-5); Color Urine Yellow; Epithelial Cell Urine Auto 0-5 /lpf (0-5); Glucose Urine UA Negative (Negative); Ketones Urine Negative (Negative); Leukocyte Esterase Urine Negative (Negative); Nitrite Urine Negative (Negative); RBC Urine Automated 0-4 /hpf (0-4); Urobilinogen Urine Negative (Negative); pH Urine 7.5 (4.5-7.5)
[2022-02-05 13:48] LABS: Protein Urine 1+ (Negative)
[2022-02-05] MEDS ORDERED: ACETAMINOPHEN 325 MG TAB PO PRN (14:38)
--- NOTE | 2022-02-05 16:01 | Nuclear Medicine Report ---
NUCLEAR MEDICINE HEPATOBILIARY SCAN HISTORY: Right-sided abdominal pain. Abnormal gallbladder ultrasound. eval for cholecystitis COMPARISON: Abdominal ultrasound 02/05/2022. TECHNIQUE: Immediately following the intravenous administration of 5.3 mCi Tc-99m Choletec, dynamic a nterior abdominal imaging was performed. FINDINGS: Uniform hepatic tracer accumulation is shown. Prompt intrahepatic biliary excretion is seen. The gall bladder, common bile duct, and small bowel are all visualized by 25 minutes. This appearance represen ts the normal sequence of biliary excretion. IMPRESSION: 1. No evidence for cystic duct obstruction. ACT 112: Negative or not required by law. Electronically signed by: Victoriano Mcclain M.D. 02/05/2022 3:59 PM
--- NOTE | 2022-02-05 16:37 | Nephrology Consultation ---
Date of Consultation February 05, 2022 Assessment & Plan (1) Acute kidney injury: * MARINO likely on the basis of acute inflammation/underlying infection * No obstruction on abdominal CT * No recent exposure to known nephrotoxic agents * Electrolyte balance is acceptable. No acute indication for HD at this time * Discussed w/ patient that HD may be needed if kidney function fails to stabilize. He is agreeable to TCC insertion and initiation of GRINDING SUPERVISOR if needed * Monitor PRP (2) CKD (chronic kidney disease) stage 5, GFR less than 15 ml/min: * CKD stage G5/A3 (ESKD), baseline Cr 4.0 w/ EGFR 13 cc/min, urine sediment - acellular, UPCR 1.9, CKD attributed to microvascular disease and HTN (3) Cholecystitis: * On Meropenem and Ampicillin. Recommend consultation w/ pharmacy to adjust doses in the setting of MARINO/CKD * Await surgical consultation (4) Osteomyelitis of sacrum: * Exposed bone (5) Atrial fibrillation: * On apixaban (6) Abdominal aortic aneurysm: * Chronic dissection extending into iliac artery History of Present Illness Reason for Consultation: MARINO/CKD Attending Physician: Low Caban MD History of Present Illness Mr. Escobedo is a 76 year old white male who is seen at the request of the [facility] Hospitalist Service for evaluation of MARINO/CKD. Medical records in the EMR were reviewed today and are summarized as follows: Mr. Escobedo has CKD stage G5/A3 (ESKD), baseline Cr 4.0 w/ EGFR 13 cc/min, urine sediment - acellular, UPCR 1.9, CKD attributed to microvascular disease and HTN. His primary Supervisor Sandblaster is Dr. Paul. Mr. Escobedo was referred for AVF creation 01/16. Mr. Escobedo's medical history is also significant for aortic dissection w/ spinal ischemia and neurogenic bladder, L leg weakness/paralysis, sacral decubitus ulcer w/ exposed bone, atrial fibrillation (apixaban), WEI, knee and hip replacements. Mr. Escobedo presented to the EMD today for evaluation of abdominal pain. Imaging is c/w acalculous cholecystitis. Surgical consultation is pending. Serum Cr has risen to 6.0. Electrolytes remain within acceptable limits. Allergies Allergy/AdvReac Type Severity Reaction Status Date / Time tetracycline Allergy Intermediate HIVES Verified 02/05/22 11:58 morphine AdvReac Intermediate Nausea Verified 02/05/22 11:58 Home Medications Medication Instructions Recorded Confirmed Type multivitamin with minerals 1 tab PO QAM tab 04/06/18 02/05/22 History cholecalciferol (vitamin D3) 50 50 mcg PO QPM 12/31/19 02/05/22 History mcg (2,000 unit) tablet (Vitamin D3) azelastine 205.5 mcg (0.15 %) 1 spray INTNAS HS PRN #30 ml 09/04/20 02/05/22 Rx nasal spray minoxidil 10 mg tablet 10 mg PO QAM #90 tab 12/18/20 02/05/22 Rx atorvastatin 20 mg tablet (Lipitor) 20 mg PO QPM tab 05/11/21 02/05/22 History sodium bicarbonate 650 mg tablet 650 mg PO BID #180 tab 07/04/21 02/05/22 Rx acetaminophen 500 mg tablet 1,000 mg PO DIRECTED PRN 07/13/21 02/05/22 History (Tylenol Extra Strength) ferrous sulfate 325 mg (65 mg 325 mg PO BIDM #60 tab 08/01/21 02/05/22 Rx iron) tablet,delayed release metoprolol succinate 25 mg 25 mg PO QAM #30 tab 08/01/21 02/05/22 Rx tablet,extended release 24 hr methenamine hippurate 1 gram tablet 1 g PO DAILY #30 tab 09/27/21 02/05/22 Rx apixaban 2.5 mg tablet (Eliquis) 2.5 mg PO BID #180 tab 12/13/21 02/05/22 Rx gabapentin 300 mg capsule 300 mg PO BID #60 cap 01/02/22 02/05/22 Rx Wheelchair (Powered) (Power #1 ea 01/04/22 02/01/22 Rx Wheelchair) darbepoetin nimisha in polysorbat 60 60 mcg SUBCUT .every other week #2 01/08/22 02/05/22 Rx mcg/0.3 mL in polysorbate syringe injection syringe (Aranesp) spironolactone 50 mg tablet 50 mg PO DAILY #90 tab 01/25/22 02/05/22 Rx torsemide 40 mg tablet 80 mg PO BID #120 tab 01/25/22 02/05/22 Rx amoxicillin 500 mg capsule 500 mg PO BID #28 cap 01/28/22 02/05/22 Rx nortriptyline 25 mg capsule 25 mg PO HS #30 cap 02/01/22 02/05/22 Rx Patient History Medical History Abdominal aortic aneurysm (~2014) S/p Type A dissection with emergent repair in 2014 Later found to have AAA 3.5cm- followed by vascular surgery with medical management Anemia due to chronic kidney disease Anxiety Atrial fibrillation [place] [facility] [place] On Eliquis BPH with obstruction/lower urinary tract symptoms DENIES ENLARGED PROSTATE Chronic kidney disease, stage V History of CHF (congestive heart failure) 2003 Hyperlipidemia Hypertension Lumbar spinal stenosis Mitral regurgitation Neurogenic bladder Self Catheterization since Aortic repair Neuropathic pain PTSD (post-traumatic stress disorder) POST AORTIC DISSECTION Sleep apnea CPAP Spinal cord cysts Pt states L1 and L2, [place] 05[place]2021, 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 History of revision of total hip arthroplasty left History of rhinoplasty History of tooth extraction History of total knee replacement RT History of total left hip arthroplasty (~12/2019) History of transurethral resection of prostate Nausea and vomiting after administration of anesthetic agent S/P debridement (06/27/21) Excisional Debridement Sacral Decubitus Ulcer down to muscle level 4cm x 6cm - Ranjeet Myers, 06/27/2021 Excisional Debridement of Sacral Decubitus Ulcer Down to Bone, 11cm x 10cm(Not Applicable) - Ranjeet Myers, 07/25/2021 S/P revision of total hip S/P total right hip arthroplasty Family History Grandmother Family history of diabetes mellitus Mother Gallbladder disease Father Prostate cancer Myocardial infarction Hypertension Other Family history non-contributory No family history of adverse response to anesthesia Denies family history of Ovarian cancer Breast cancer Colorectal cancer Social History Smoking Status: Never smoker Second Hand Exposure: No; Hx Alcohol Use: No Hx Substance Use: No Preferred Language: Stateless Communication Ability: Effective Visual Impairment: Limited Hearing Ability: Normal Property Field Inspector Required: No Beliefs That Will Affect Care: None marital status: Current Living Situation: Spouse Current Living Situation Comment: Lives with at home current occupational status: retired How many Children do You have: 1 Other Information That Helps Us Care for You: No Feels Safe at Home: Yes Safety Concerns: Feels Safe At This Time Childhood Exposure to Second-Hand Smoke: Yes (father did ) Diet Comment: low sugar, low phospate caffeine: Yes (tea) during the past year weight has: remained stable Dental Care, Regularly: Yes Physical Activity Frequency: Does not Exercise Physical Activity Frequency Comment: goes to PT twice a week Seatbelt Use: always Sunscreen Use: Yes Do you think of yourself as: straight/heterosexual Gender Identity: Male Assistive Devices: Glasses, Walker and Wheelchair Review of Systems Constitutional: + weakness; no fever Eyes: no problem reported Ear, Nose, Mouth, Throat: no problem reported Respiratory: no cough and no dyspnea Cardiovascular: no chest pain, no palpitations and no edema Gastrointestinal: + abdominal pain (RUQ) Genitourinary: no dysuria (performs CIC due to neurogenic bladder) Integumentary: no rash Neurologic: no confusion Physical Exam Constitutional: + frail appearing; not in distress Eyes: PERRL, conjunctivae normal, anicteric sclerae ENMT: external ear and nose normal, oropharynx normal Neck: trachea midline, no thyromegaly Respiratory: normal respiratory effort, lungs clear to auscultation Cardiovascular: Rate/Rhythm: regular rate and regular rhythm Heart Sounds: + murmur Extremities: + edema (1+ pretibial pitting edema) Gastrointestinal (Abdomen): Inspection/Auscultation: abdomen normal to inspection and normal bowel sounds Percussion/Palpation: + abdomen tender (RUQ); no guarding Neurologic: awake; not confused Psychiatric: A+Ox3, euthymic affect Results & Data ([facility]) Vital Signs (Past 12 Hours) Vital Signs Temp Pulse Pulse Resp BP BP BP 02/05/22 14:39 36.9 C 74 14 137/78 02/05/22 14:17 138/87 02/05/22 13:27 73 18 148/87 H 02/05/22 11:23 71 18 128/77 02/05/22 09:11 72 18 02/05/22 08:56 36.7 C 65 18 117/86 Pulse Ox 02/05/22 14:39 95 02/05/22 14:17 02/05/22 13:27 96 02/05/22 11:23 97 02/05/22 09:11 97 02/05/22 08:56 96 Laboratory Results Laboratory Results - last 24 hr 02/05/22 02/05/22 02/05/22 09:21 09:21 09:21 WBC 5.15 RBC 2.76 L Hgb 8.4 L Hct 25.9 L MCV 93.8 MCH 30.4 MCHC 32.4 RDW Std Deviation 48.8 H RDW Coeff of Hector 14.5 Plt Count 147 MPV 8.8 L Immature Gran % (Auto) 0.4 Neut % (Auto) 69.0 Lymph % (Auto) 11.5 [place] % (Auto) 10.9 Eos % (Auto) 7.2 Baso % (Auto) 1.0 Neut # (Auto) 3.56 Lymph # (Auto) 0.59 L [place] # (Auto) 0.56 Eos # (Auto) 0.37 Baso # (Auto) 0.05 Immature Gran # (Auto) 0.02 PT 13.1 H INR 1.2 H Sodium 135 L Potassium 4.9 Chloride 101 Carbon Dioxide 25 Anion Gap 9 BUN 111 H Creatinine 6.04 H* Est Cr Clr Drug Dosing 13.5 Est GFR ( Amer) 9.7 Est GFR (Non-Af Amer) 8.3 BUN/Creatinine Ratio 18.4 Glucose 87 Calcium 8.8 Total Bilirubin 0.5 AST 30 ALT 31 Alkaline Phosphatase 142 H B-Natriuretic Peptide Total Protein 6.4 Albumin 3.6 Globulin 2.8 Albumin/Globulin Ratio 1.3 Lipase 106 H Procalcitonin Urine Color Urine Appearance Urine pH Ur Specific [place] Urine Protein Urine Glucose (UA) Urine Ketones Urine Blood Urine Nitrite Urine Bilirubin Urine Urobilinogen Ur Leukocyte Esterase Urine WBC (Auto) Urine RBC (Auto) U Hyaline Cast (Auto) U Epithel Cells (Auto) Urine Bacteria (Auto) SARS-CoV-2, RNA, NAAT 02/05/22 02/05/22 02/05/22 09:21 09:30 12:58 WBC RBC Hgb Hct MCV MCH MCHC RDW Std Deviation RDW Coeff of Hector Plt Count MPV Immature Gran % (Auto) Neut % (Auto) Lymph % (Auto) [place] % (Auto) Eos % (Auto) Baso % (Auto) Neut # (Auto) Lymph # (Auto) [place] # (Auto) Eos # (Auto) Baso # (Auto) Immature Gran # (Auto) PT INR Sodium Potassium Chloride Carbon Dioxide Anion Gap BUN Creatinine Est Cr Clr Drug Dosing Est GFR ( Amer) Est GFR (Non-Af Amer) BUN/Creatinine Ratio Glucose Calcium Total Bilirubin AST ALT Alkaline Phosphatase B-Natriuretic Peptide 526 H Total Protein Albumin Globulin Albumin/Globulin Ratio Lipase Procalcitonin Urine Color Yellow Urine Appearance Clear Urine pH 7.5 Ur Specific [place] 1.010 Urine Protein 1+ H Urine Glucose (UA) Negative Urine Ketones Negative Urine Blood Negative Urine Nitrite Negative Urine Bilirubin Negative Urine Urobilinogen Negative Ur Leukocyte Esterase Negative Urine WBC (Auto) 1-5 Urine RBC (Auto) 0-4 U Hyaline Cast (Auto) 0 U Epithel Cells (Auto) 0-5 Urine Bacteria (Auto) Negative SARS-CoV-2, RNA, NAAT NEGATIVE 02/05/22 14:54 WBC RBC Hgb Hct MCV MCH MCHC RDW Std Deviation RDW Coeff of Hector Plt Count MPV Immature Gran % (Auto) Neut % (Auto) Lymph % (Auto) [place] % (Auto) Eos % (Auto) Baso % (Auto) Neut # (Auto) Lymph # (Auto) [place] # (Auto) Eos # (Auto) Baso # (Auto) Immature Gran # (Auto) PT INR Sodium Potassium Chloride Carbon Dioxide Anion Gap BUN Creatinine Est Cr Clr Drug Dosing Est GFR ( Amer) Est GFR (Non-Af Amer) BUN/Creatinine Ratio Glucose Calcium Total Bilirubin AST ALT Alkaline Phosphatase B-Natriuretic Peptide Total Protein Albumin Globulin Albumin/Globulin Ratio Lipase Procalcitonin 0.15 Urine Color Urine Appearance Urine pH Ur Specific [place] Urine Protein Urine Glucose (UA) Urine Ketones Urine Blood Urine Nitrite Urine Bilirubin Urine Urobilinogen Ur Leukocyte Esterase Urine WBC (Auto) Urine RBC (Auto) U Hyaline Cast (Auto) U Epithel Cells (Auto) Urine Bacteria (Auto) SARS-CoV-2, RNA, NAAT Abdominal CT 02/05/22: 1. Prominent sacral ulcer with underlying sacral erosion, although age indeterminate, this is concerning for osteomyelitis. 2. Interval development of bilateral pleural effusions and mild ascites. Evaluation is limited by noncontrast technique, however there is suggestion of gallbladder wall edema. This may be reactive or represent acute cholecystitis in this patient with right-sided abdominal pain. 3. Wall thickening of the bladder is seen which may represent cystitis versus chronic outlet obstruction. Correlation with urinalysis is recommended. 4. 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 Abominal US 02/05/22: 1. Distended gallbladder containing a small amount of sludge. No definite gallstones. 2. Mild gallbladder wall thickening/edema. This is likely due to the patient's diffuse edematous state. Acalculus cholecystitis is considered less likely but not entirely excluded. 3. Trace ascites. Hepatobiliary Scan 02/05/22: 1. No evidence for cystic duct obstruction. PG Care Time/CCT Total # of Minutes Spent Total Time Spent with Patient: Total time spent is greater than 50% in coordination of care (as documented) at patient's floor/unit and/or counseling patient: Coding Level of Care Code 90183 Inpt Consult Level 5 Diagnoses Acute kidney injury N17.9 CKD (chronic kidney disease) stage 5, GFR less than 15 ml/min N18.5 Cholecystitis K81.9 Osteomyelitis of sacrum M46.28 Atrial fibrillation I48.2 Atrial fibrillation type: permanent Abdominal aortic aneurysm I71.4 Presence of rupture: without rupture (1) Abdominal aortic aneurysm Presence of rupture: without rupture Qualified Code(s): I71.4 - Abdominal aortic aneurysm, without rupture (2) Atrial fibrillation Atrial fibrillation type: permanent Qualified Code(s): I48.2 - Chronic atrial fibrillation
[2022-02-05] MEDS: FERROUS SULFATE 325 MG TAB PO SCH (17:18)
[2022-02-05] MEDS: GABAPENTIN 300 MG CAP PO SCH (20:49)
[2022-02-05] MEDS: CHOLECALCIFEROL 1,000 UNITS 25 MCG TAB PO SCH (20:49)
[2022-02-05] MEDS: HEPARIN SOD 5,000 UNIT/0.5 ML VIAL SQ SCH (20:50)
[2022-02-05] MEDS: NORTRIPTYLINE HCL 25 MG CAP PO SCH (20:50)
[2022-02-05] MEDS: SODIUM BICARBONATE 650 MG TAB PO SCH (20:50)
[2022-02-05] MEDS: MoRPHine SULFATE 2 MG/ML CARP IV PRN (20:56)
[2022-02-05] MEDS: MEROPENEM 500 MG in SYRINGE 0 ML IV SCH (20:57)
[2022-02-05] MEDS: ONDANSETRON INJ 2 MG/ML 2 ML VIAL IV PRN (20:57)
[2022-02-05] MEDS ORDERED: ATORVASTATIN 20 MG TAB PO SCH (21:00)
[2022-02-06 08:00] LABS: Basophils # (auto) 0.06 K/uL (0-0.2); Basophils % (auto) 1.4 %; Eosinophils # (auto) 0.26 K/uL (0-0.50); Hematocrit (blood only) 25.6 % (40.1-51.0); Hemoglobin 8.4 g/dl (14.0-18.0); Immature Granulocytes # (auto) 0.01 K/uL (0.00-0.02); Immature Granulocytes % (auto) 0.2 %; Lymphocytes % (auto) 13.9 %; Mean Corpuscular Hemoglobin 30.9 pg (25.0-34.0); Mean Corpuscular Hgb Conc 32.8 g/dL (32.0-36.0); Mean Corpuscular Volume 94.1 fL (80.0-100.0); Mean Platelet Volume 8.8 fL (9.4-12.4); Monocytes # (auto) 0.64 K/uL (0.24-0.82); Monocytes % (auto) 14.8 %; Neutrophils # (auto) 2.74 K/uL (1.4-6.5); Neutrophils % (auto) 63.7 %; Platelet Count 137 K/uL (130-400); RDW Coefficient of Variation 14.3 % (11.5-14.5); RDW Standard Deviation 48.8 fL (36.4-46.3); Red Blood Count 2.72 M/uL (4.63-6.08); White Blood Count 4.31 K/ul (4.8-10.8)
--- NOTE | 2022-02-06 08:40 | Nephrology Progress Note ---
Date of Service February 06, 2022 Assessment & Plan (1) Acute kidney injury: Plan: * MARINO likely on the basis of acute inflammation/underlying infection * No obstruction on abdominal CT * No recent exposure to known nephrotoxic agents * Mild hyperkalemia. Patient is nonoliguric. Will administer one dose IV Furosemide and monitor UO, PRP * Await surgical input. If no procedure is anticipated, will consult w/ Vascular Surgery to have TCC placed (2) CKD (chronic kidney disease) stage 5, GFR less than 15 ml/min: Plan: * CKD stage G5/A3 (ESKD), baseline Cr 4.0 w/ EGFR 13 cc/min, urine sediment - acellular, UPCR 1.9, CKD attributed to microvascular disease and HTN (3) Cholecystitis: Plan: * On Meropenem and Ampicillin. Recommend consultation w/ pharmacy to adjust doses in the setting of MARINO/CKD * Await surgical consultation (4) Osteomyelitis of sacrum: Plan: * Exposed bone (5) Atrial fibrillation: Plan: * On apixaban (6) Abdominal aortic aneurysm: Plan: * Chronic dissection extending into iliac artery Admission and Anticipated Discharge Date Admission Date: February 05, 2022 Subjective Mr. Escobedo was evaluated in his hospital room this morning. He c/o mild RUQ abdominal discomfort. He reports that he is tolerating a liquid diet without N&V. He is awaiting surgical evaluation regarding his abdominal pain and sacral decubitus ulcer Review of Systems Constitutional: + weakness; no fever Eyes: no problem reported Ear, Nose, Mouth, Throat: no problem reported Respiratory: no cough and no dyspnea Cardiovascular: no chest pain, no palpitations and no edema Gastrointestinal: + abdominal pain (RUQ) Genitourinary: no dysuria (performs CIC due to neurogenic bladder) Integumentary: no rash Neurologic: no confusion Physical Exam Constitutional: + frail appearing; not in distress Eyes: PERRL, conjunctivae normal, anicteric sclerae ENMT: external ear and nose normal, oropharynx normal Neck: trachea midline, no thyromegaly Respiratory: normal respiratory effort, lungs clear to auscultation Cardiovascular: Rate/Rhythm: regular rate and regular rhythm Heart Sounds: + murmur Extremities: + edema (1+ pretibial pitting edema) Gastrointestinal (Abdomen): Inspection/Auscultation: abdomen normal to inspection and normal bowel sounds Percussion/Palpation: + abdomen tender (RUQ); no guarding Neurologic: awake; not confused Psychiatric: A+Ox3, euthymic affect Results & Data ([facility]) Vital Signs (Past 12 Hours) Vital Signs Temp Pulse Resp BP Pulse Ox O2 Del Method 02/06/22 07:39 36.7 C 59 L 16 112/74 96 Room Air 02/05/22 22:16 36.6 C 81 16 129/83 93 CPAP Laboratory Results Laboratory Tests 02/06/22 02/06/22 07:44 07:44 WBC 4.31 L Hgb 8.4 L Hct 25.6 L Plt Count 137 Sodium 135 L Potassium 5.2 H Chloride 101 Carbon Dioxide 23 BUN 116 H Creatinine 6.06 H* PG Care Time/CCT Total # of Minutes Spent Total Time Spent with Patient: Total time spent is greater than 50% in coordination of care (as documented) at patient's floor/unit and/or counseling patient: Coding Level of Care Code 24990 Subseq Hosp Care Lvl 3 Diagnoses Acute kidney injury N17.9 CKD (chronic kidney disease) stage 5, GFR less than 15 ml/min N18.5 Cholecystitis K81.9 Osteomyelitis of sacrum M46.28 Atrial fibrillation I48.2 Atrial fibrillation type: permanent Abdominal aortic aneurysm I71.4 Presence of rupture: without rupture (1) Abdominal aortic aneurysm Presence of rupture: without rupture Qualified Code(s): I71.4 - Abdominal aortic aneurysm, without rupture (2) Atrial fibrillation Atrial fibrillation type: permanent Qualified Code(s): I48.2 - Chronic atrial fibrillation
[2022-02-06 08:58] LABS: BUN Creatinine Ratio 19.1 (10-20); Calcium 8.9 mg/dl (8.5-10.1); Creatinine Clr Calc Pharmacy 13.5 ml/min; Est GFR (African American) 9.6 ml/min; Est GFR (Non-African American) 8.3 ml/min; Magnesium 2.8 mg/dl (1.7-2.4); Potassium 5.2 mmol/L (3.5-5.1)
[2022-02-06] MEDS: minoxidiL 2.5 MG TAB PO SCH (09:11)
[2022-02-06] MEDS: HEPARIN SOD 5,000 UNIT/0.5 ML VIAL SQ SCH ×2 (09:11→21:16)
[2022-02-06] MEDS: SODIUM BICARBONATE 650 MG TAB PO SCH ×2 (09:11→20:20)
[2022-02-06] MEDS: CEROVITE ADV FORMULA TAB PO SCH (09:11)
[2022-02-06] MEDS: GABAPENTIN 300 MG CAP PO SCH ×2 (09:12→20:20)
[2022-02-06] MEDS: MEROPENEM 500 MG in SYRINGE 0 ML IV SCH ×2 (09:12→22:18)
[2022-02-06] MEDS: FERROUS SULFATE 325 MG TAB PO SCH ×2 (09:12→17:07)
[2022-02-06] MEDS: METOPROLOL SUCC 25MG EXT REL TAB PO SCH (09:14)
[2022-02-06] MEDS ORDERED: FUROSEMIDE INJ 20 MG/2 ML VIAL IV ONE (10:17)
--- NOTE | 2022-02-06 10:35 | Surgery Progress Note ---
Date of Service February 06, 2022 Assessment & Plan (1) Osteomyelitis of sacrum: Plan: Discussed with the wound nurse. Possible osteomyelitis on imaging. We will debride the wound tomorrow and take a bone biopsy. They can then place wound VAC tomorrow following his procedure. Discussed the options and risks with the patient. He agrees. We will proceed tomorrow morning. continue to hold anticoagulation until after debridement. (2) CKD (chronic kidney disease) stage 5, GFR less than 15 ml/min: Admission and Anticipated Discharge Date Admission Date: February 05, 2022 Subjective pt seen. feeling ok currently. sitting in bed eating. no distress Physical Exam Physical Exam: Alert and oriented no acute distress Gastrointestinal (Abdomen): soft. nt. nd. Musculoskeletal: large sacral wound to bone. some tunneling/undermining. minimal debris/eschar. Results & Data ([facility]) Vital Signs (Past 12 Hours) Vital Signs Temp Pulse Resp BP Pulse Ox O2 Del Method 02/06/22 09:13 73 107/62 02/06/22 07:39 36.7 C 59 L 16 112/74 96 Room Air PG Care Time/CCT Total # of Minutes Spent Total Time Spent with Patient: Total time spent is greater than 50% in coordination of care (as documented) at patient's floor/unit and/or counseling patient: Coding Level of Care Code 28069 Subseq Hosp Care Lvl 2 Diagnoses Osteomyelitis of sacrum M46.28 CKD (chronic kidney disease) stage 5, GFR less than 15 ml/min N18.5
--- NOTE | 2022-02-06 11:14 | Electrocardiogram Report ---
Test Reason : Blood Pressure : / mmHG Vent. Rate : 072 BPM Atrial Rate : 072 BPM P-R Int : 000 ms QRS Dur : 110 ms QT Int : 394 ms P-R-T Axes : 000 -67 063 degrees QTc Int : 431 ms Atrial fibrillation Left axis deviation Right bundle branch block Abnormal ECG When compared with ECG of 18-DEC-2021 00:06, Right bundle branch block is now Present Confirmed by Shakeel Braun ([id number]) on 02/06/2022 11:13:42 AM Referred By: REFERRED SELF Confirmed By:Joe Braun
--- NOTE | 2022-02-06 16:34 | Hospitalist Progress Note ---
Date of Service February 06, 2022 Assessment & Plan (1) Abdominal pain: Plan: Edematous gallbladder seen on CT However, HIDA scan was essentially normal, no filling defect, no suggestion of acute cholecystitis - Pending HIDA scan (2) Osteomyelitis of sacrum: Plan: Chronic with osteomyelitis history - Daptomycin and Meropenem given EMD- will continue Meropenem with pseudomass previously, change dapto to ampicillin - Renally dose - WBC count stable and afebrile - Plan is surgical debridement and bone biopsy tomorrow am -ID on consult (3) CKD (chronic kidney disease) stage 5, GFR less than 15 ml/min: Plan: CKD IV progressing towards need for hemofiltration - MANAGER GOLF 6 on admission but remains making urine - Electrolytes are stable - Manage volume status with diuretic therapy - Will hold his oral doses - for IV therapy and oral as supported - Appreciate Nephrology assistance - If he would decompensate - he would need temporary access for hemofiltration (4) Atrial fibrillation: Plan: Chronic- is on renal dose eliquis - will hold until surgical plan developed - heparin sub q q12 for VTE (5) Hypertension: Plan: Continue with metoprolol (6) Sacral decubitus ulcer, stage IV: Plan: Stage IV to bone - Present on admission - Continue with wound vac care- appreciate nursing wound care support - as above continue offloading and coordinate culture/biopsy (7) Sleep apnea: Plan: Continue CPAP 9-11 cm H20 at night - he will try to bring in his machine (8) Abdominal aortic aneurysm: Plan: infrarenal aortic aneurysm is seen measuring up to 31 mm in diameter, 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 with noted disection following stable at this time previously measured in 2020 3.3 Continue BP control and statin (9) Inability to walk: Plan: He endorses that he has been wheel chair bound since June - Has previous stenosis with surgical repair - MRI in 06/17- with progressive L5-S1 stenosis with encroachment on L5 nerve root Plan continue hospitalization Admission and Anticipated Discharge Date Admission Date: February 05, 2022 Subjective patient seen and examined, no new complaints, still has some pain in the abdomen, especially, when he moves around Review of Systems Review of Systems: All systems reviewed are negative, apart from the ones contained in the history. Physical Exam Physical Exam: The patient is awake, alert and oriented 3, well developed and well nourished, normocephalic and atraumatic, lying in bed and in no acute distress. HEENT--PERRL, EOMI, mucous membranes and oropharynx mildly dry Neck--supple. No JVD. No bruits. Thyroid normal, trachea midline, no adenopathy. Heart--normal S1 and S2. No murmurs, rubs or gallops. Lungs--clear bilaterally, no respiratory distress, no accessory muscle use. Abdomen--right UQ tenderness Extremities--no cyanosis or clubbing. No edema. Dermatologic--normal skin turgor, normal color, no abnormal lymph nodes, no rash. Neurologic--cranial nerves II through XII grossly intact. Rheumatologic--normal range of motion. Psychiatric--normal affect. Results & Data Results & Data ([facility]) Vital Signs (Past 12 Hours) Vital Signs Temp Pulse Resp BP Pulse Ox O2 Del Method 02/06/22 14:31 97.9 F 90 16 108/69 97 Room Air 02/06/22 09:13 73 107/62 02/06/22 07:39 98.1 F 59 L 16 112/74 96 Room Air PG Care Time/CCT Total # of Minutes Spent Total Time Spent with Patient: Total time spent is greater than 50% in coordination of care (as documented) at patient's floor/unit and/or counseling patient: Coding Level of Care Code 11915 Subseq Hosp Care Lvl 2 Diagnoses Abdominal pain R10.9 Osteomyelitis of sacrum M46.28 CKD (chronic kidney disease) stage 5, GFR less than 15 ml/min N18.5 Atrial fibrillation I48.2 Atrial fibrillation type: permanent Hypertension I10 Hypertension type: essential hypertension Sacral decubitus ulcer, stage IV L89.154 Sleep apnea G47.30 Abdominal aortic aneurysm I71.4 Presence of rupture: without rupture Inability to walk R26.2 Time Spent (min) 35 (1) Atrial fibrillation Atrial fibrillation type: permanent Qualified Code(s): I48.2 - Chronic atrial fibrillation (2) Hypertension Hypertension type: essential hypertension Qualified Code(s): I10 - Essential (primary) hypertension (3) Abdominal aortic aneurysm Presence of rupture: without rupture Qualified Code(s): I71.4 - Abdominal aortic aneurysm, without rupture
[2022-02-06] MEDS: CHOLECALCIFEROL 1,000 UNITS 25 MCG TAB PO SCH (20:20)
[2022-02-06] MEDS: NORTRIPTYLINE HCL 25 MG CAP PO SCH (20:20)
[2022-02-07 06:58] LABS: Basophils # (auto) 0.05 K/uL (0-0.2); Basophils % (auto) 1.3 %; Eosinophils # (auto) 0.37 K/uL (0-0.50); Eosinophils % (auto) 9.4 %; Hematocrit (blood only) 24.1 % (40.1-51.0); Hemoglobin 7.9 g/dl (14.0-18.0); Immature Granulocytes # (auto) 0.01 K/uL (0.00-0.02); Immature Granulocytes % (auto) 0.3 %; Lymphocytes # (auto) 0.65 K/uL (1.2-3.4); Lymphocytes % (auto) 16.5 %; Mean Corpuscular Hemoglobin 31.1 pg (25.0-34.0); Mean Corpuscular Hgb Conc 32.8 g/dL (32.0-36.0); Mean Corpuscular Volume 94.9 fL (80.0-100.0); Mean Platelet Volume 9.3 fL (9.4-12.4); Monocytes # (auto) 0.56 K/uL (0.24-0.82); Monocytes % (auto) 14.2 %; Neutrophils % (auto) 58.3 %; Platelet Count 133 K/uL (130-400); RDW Coefficient of Variation 13.7 % (11.5-14.5); RDW Standard Deviation 47.7 fL (36.4-46.3); Red Blood Count 2.54 M/uL (4.63-6.08); White Blood Count 3.94 K/ul (4.8-10.8)
[2022-02-07 07:37] LABS: Acanthocytes 1+
[2022-02-07 07:48] LABS: BUN Creatinine Ratio 19.6 (10-20); Calcium 8.2 mg/dl (8.5-10.1); Est GFR (African American) 10.1 ml/min; Est GFR (Non-African American) 8.7 ml/min; Magnesium 2.7 mg/dl (1.7-2.4); Potassium 5.4 mmol/L (3.5-5.1)
[2022-02-07] MEDS ORDERED: AMPICILLIN 2,000 MG in SODIUM CHLOR 0.9% AD-VAN 100 ML IV SCH (08:00)
[2022-02-07] MEDS: HEPARIN SOD 5,000 UNIT/0.5 ML VIAL SQ SCH ×2 (08:19→21:26)
[2022-02-07] MEDS: MEROPENEM 500 MG in SYRINGE 0 ML IV SCH (08:19)
--- NOTE | 2022-02-07 08:36 | Nephrology Progress Note ---
Date of Service February 07, 2022 Assessment & Plan (1) Acute kidney injury: Plan: * MARINO likely on the basis of acute inflammation/underlying infection * No obstruction on abdominal CT * No recent exposure to known nephrotoxic agents * Developing mild hyperkalemia and azotemia. Indication/risk/benefit/alternative to [facility] discussed w/ patient today. He is agreeable to IJ TCC insertion and initiation of HD * Will consult Vascular Surgery for IJ TCC and ask them to schedule outpatient AVF creation. Vein mapping was completed yesterday (2) CKD (chronic kidney disease) stage 5, GFR less than 15 ml/min: Plan: * CKD stage G5/A3 (ESKD), baseline Cr 4.0 w/ EGFR 13 cc/min, urine sediment - acellular, UPCR 1.9, CKD attributed to microvascular disease and HTN (3) Cholecystitis: Plan: * 02/05/22 Hepatobiliary scan was negative for cystic duct obstruction (4) Osteomyelitis of sacrum: Plan: * Exposed bone - awaiting biopsy * On Meropenem and Ampicillin. Recommend consultation w/ pharmacy to adjust doses in the setting of MARINO/CKD (5) Atrial fibrillation: Plan: * On apixaban (6) Abdominal aortic aneurysm: Plan: * Chronic dissection extending into iliac artery Admission and Anticipated Discharge Date Admission Date: February 05, 2022 Subjective Mr. Escobedo was evaluated in his hospital room this morning. His RUQ abdominal discomfort is improved. He is awaiting debridement of his sacral ulcer and biopsy of the exposed bone Review of Systems Constitutional: + weakness; no fever Eyes: no problem reported Ear, Nose, Mouth, Throat: no problem reported Respiratory: no cough and no dyspnea Cardiovascular: no chest pain, no palpitations and no edema Gastrointestinal: + abdominal pain (RUQ) Genitourinary: no dysuria (performs CIC due to neurogenic bladder) Integumentary: no rash Neurologic: no confusion Physical Exam Constitutional: + frail appearing; not in distress Eyes: PERRL, conjunctivae normal, anicteric sclerae ENMT: external ear and nose normal, oropharynx normal Neck: trachea midline, no thyromegaly Respiratory: normal respiratory effort, lungs clear to auscultation Cardiovascular: Rate/Rhythm: regular rate and regular rhythm Heart Sounds: + murmur Extremities: + edema (1+ pretibial pitting edema) Gastrointestinal (Abdomen): Inspection/Auscultation: abdomen normal to inspection and normal bowel sounds Percussion/Palpation: abdomen nontender and no guarding Neurologic: awake; not confused Psychiatric: A+Ox3, euthymic affect Results & Data ([facility]) Vital Signs (Past 12 Hours) Vital Signs Temp Pulse Resp BP Pulse Ox O2 Del Method 02/07/22 07:22 36.6 C 56 L 16 115/67 96 Room Air 02/06/22 22:28 36.7 C 72 17 117/63 95 Room Air Laboratory Results Laboratory Tests 02/07/22 02/07/22 06:30 06:30 WBC 3.94 L Hgb 7.9 L Hct 24.1 L Sodium 132 L Potassium 5.4 H Chloride 101 Carbon Dioxide 22 BUN 114 H Creatinine 5.83 H* Glucose 85 PG Care Time/CCT Total # of Minutes Spent Total Time Spent with Patient: Total time spent is greater than 50% in coordination of care (as documented) at patient's floor/unit and/or counseling patient: Coding Level of Care Code 88724 Subseq Hosp Care Lvl 3 Diagnoses Acute kidney injury N17.9 CKD (chronic kidney disease) stage 5, GFR less than 15 ml/min N18.5 Cholecystitis K81.9 Osteomyelitis of sacrum M46.28 Atrial fibrillation I48.2 Atrial fibrillation type: permanent Abdominal aortic aneurysm I71.4 Presence of rupture: without rupture (1) Abdominal aortic aneurysm Presence of rupture: without rupture Qualified Code(s): I71.4 - Abdominal aortic aneurysm, without rupture (2) Atrial fibrillation Atrial fibrillation type: permanent Qualified Code(s): I48.2 - Chronic atrial fibrillation
--- NOTE | 2022-02-07 08:47 | Ultrasound Report ---
US venous mapping bilateral upper extremities CLINICAL HISTORY: End-stage kidney disease. COMPARISON STUDY: None. FINDINGS: The visualized bilateral cephalic and basilic veins are patent and appear to be normal in c aliber. IMPRESSION: The visualized bilateral cephalic and basilic veins are patent. Please refer to the enma ched worksheet for exact measurements of caliber and depth. ACT 112: Negative or not required by law. Electronically signed by: Victoriano Mcclain M.D. 02/07/2022 8:46 AM
[2022-02-07] MEDS ORDERED: FUROSEMIDE 40 MG/4 ML VIAL IV ONE ×2 (09:52→14:00)
[2022-02-07] MEDS ORDERED: SUGAMMADEX SODIUM 200 MG/2 ML VIAL IV ONE (10:21)
[2022-02-07] MEDS ORDERED: DEXAMETHASONE SOD INJ 4 MG/ML VIAL ONE (10:24)
[2022-02-07] MEDS ORDERED: ROCURONIUM BROMIDE 10 MG/ML 5 ML VIAL IV ONE (10:24)
[2022-02-07] MEDS ORDERED: ONDANSETRON INJ 2 MG/ML 2 ML VIAL ONE (10:24)
[2022-02-07] MEDS ORDERED: LIDOCAINE 2% MPF LOCAL 5 ML VIAL INFIL ONE (10:24)
[2022-02-07] MEDS ORDERED: PROPOFOL IV EMULSION 10 MG/ML 20 ML VIAL IV ONE (10:24)
[2022-02-07] MEDS ORDERED: fentaNYL citrate 100 MCG/2 ML VIAL ONE (10:25)
[2022-02-07] MEDS ORDERED: DAPTOmycin 550 MG in SYRINGE 0 ML IV SCH (11:00)
--- NOTE | 2022-02-07 11:06 | History & Physical Bridge Note ---
Date of Service February 07, 2022 History & Physical Bridge Note I have examined the patient, reviewed the History & Physical and in the interval since the performance of the History & Physical I have noted the following changes of clinical significance: no changes noted
[2022-02-07] MEDS ORDERED: ATROPINE SULFATE 0.1 MG/ML 10ML SYR IV PRN (12:43)
[2022-02-07] MEDS ORDERED: ePHEDrine sulfate 50 MG/ML AMP IV PRN (12:43)
[2022-02-07] MEDS ORDERED: fentaNYL citrate 100 MCG/2 ML VIAL IV PRN (12:43)
[2022-02-07] MEDS ORDERED: ONDANSETRON INJ 2 MG/ML 2 ML VIAL IV PRN (12:43)
--- NOTE | 2022-02-07 12:50 | Anesthesiology Progress Note ---
Date of Service February 07, 2022 Anesthesia Post Procedure Vital Signs Vital Signs: Temp Pulse Pulse Resp BP BP Pulse Ox 02/07/22 12:45 64 18 111/72 96 02/07/22 12:35 64 18 120/76 100 02/07/22 12:25 62 18 125/75 98 02/07/22 12:19 97.2 F L 67 18 135/81 97 02/07/22 10:13 98.4 F 69 20 102/68 97 02/07/22 07:22 97.9 F 56 L 16 115/67 96 02/06/22 22:28 98.1 F 72 17 117/63 95 02/06/22 14:31 97.9 F 90 16 108/69 97 O2 Del Method O2 Flow Rate 02/07/22 12:45 Nasal Cannula 4 02/07/22 12:35 Oxymask 5 02/07/22 12:25 Oxymask 5 02/07/22 12:19 Oxymask 5 02/07/22 10:13 Room Air 02/07/22 07:22 Room Air 02/06/22 22:28 Room Air 02/06/22 14:31 Room Air Pain Intensity Right Abdomen: Pain Intensity: 6 Transfer of Care Handoff Completed per policy Notes Mental Status: alert / awake / arousable and participated in evaluation Patient Amnestic to Procedure: Yes Nausea / Vomiting: adequately controlled Pain: adequately controlled Airway Patency, RR, SpO2: stable & adequate BP & HR: stable & adequate Hydration State: stable & adequate Anesthetic Complications: no major complications apparent and Pt Satisfied with anesthetic care
[2022-02-07] MEDS: SODIUM BICARBONATE 650 MG TAB PO SCH ×2 (13:36→21:26)
[2022-02-07] MEDS: FERROUS SULFATE 325 MG TAB PO SCH ×2 (13:36→18:28)
[2022-02-07] MEDS: GABAPENTIN 300 MG CAP PO SCH ×2 (13:36→21:26)
[2022-02-07] MEDS: CEROVITE ADV FORMULA TAB PO SCH (14:08)
[2022-02-07] MEDS: METOPROLOL SUCC 25MG EXT REL TAB PO SCH (14:08)
[2022-02-07] MEDS: minoxidiL 2.5 MG TAB PO SCH (14:09)
--- NOTE | 2022-02-07 15:33 | Operative Report ---
PG Post Operative Report Pre & Post Diagnosis Operation Date: 02/07/22 10:25 Pre-Op Diagnosis: non-healing sacral wound Post-Op Diagnosis: non-healing sacral wound Operation Date: 02/08/22 10:20 <No data on this case meets the specified criteria> I identified the patient and participated in the time-out.: Yes Procedure Operation Date: 02/07/22 10:25 Actual Procedures p Sacral Wound Debridment, Sacral bone biopsy(Not Applicable) - Jose Le DO Operation Date: 02/08/22 10:20 <No data on this case meets the specified criteria> Surgeon Jose Le DO Stallion Keeper razia Lamas Estimated Blood Loss 15 Findings Consistent with Post-Op Diagnosis Specimens bone bx Description of Procedure After informed consent was obtained the patient was taken to the operating room and placed in supine position. After successful intubation the patient was rolled into a prone position. The lower back around his sacral wound was sterilely prepped and draped with Betadine solution. I began by examining the wound. There was not a lot of debris or undermining. I did use a 10 blade scalpel to remove some tissue around the periphery of the wound as well as the base of the wound. Once I had this debrided full-thickness down to bone, I then used a rongeur to obtain a sacral bone biopsy. Two separate pieces were sent to lab for culture. The wound was thoroughly irrigated. It was packed with a wet-to-dry dressing. A wound VAC will be placed by the wound nurse later today. The patient tolerated the procedure well. He was placed back into a supine position, extubated and transferred to recovery in stable condition. My physician biology laboratory assistant was present for the entire case and was instrumental in helping with exposure the bone biopsy and wound dressing. I attest to the content of the Intraoperative Record and any orders documented therein. Any exceptions are noted below.
--- NOTE | 2022-02-07 15:35 | Hospitalist Progress Note ---
Date of Service February 07, 2022 Assessment & Plan (1) Abdominal pain: Plan: Edematous gallbladder seen on CT However, HIDA scan was essentially normal, no filling defect, no suggestion of acute cholecystitis (2) Osteomyelitis of sacrum: Plan: Chronic with osteomyelitis history, with exposed bone Patient initially on Daptomycin and Meropenem, however, currently on hold at the advice of ID For OR today for debridement and biopsy of exposed bone Will also obtain CRP Based on the results, ID will recommend antibiotics or not Patient is afebrile, WBC wnl (3) CKD (chronic kidney disease) stage 5, GFR less than 15 ml/min: Plan: Vein mapping has been done for outpatient AV fistula creation Will obtain temporary access for HD Appreciate nephrology recs (4) Atrial fibrillation: Plan: Chronic- is on renal dose eliquis - will hold until surgical plan developed - heparin sub q q12 for VTE (5) Hypertension: Plan: Continue with metoprolol (6) Sacral decubitus ulcer, 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 with noted disection following stable at this time previously measured in 2020 3.3 Continue BP control and statin (9) Inability to walk: Plan: He endorses that he has been wheel chair bound since June - Has previous stenosis with surgical repair - MRI in 06/17- with progressive L5-S1 stenosis with encroachment on L5 nerve root Plan continue hospitalization Admission and Anticipated Discharge Date Admission Date: February 05, 2022 Subjective patient seen and examined, going for debridement of sacralbone at OR Review of Systems Review of Systems: All systems reviewed are negative, apart from the ones contained in the history. Physical Exam Physical Exam: The patient is awake, alert and oriented 3, well developed and well nourished, normocephalic and atraumatic, lying in bed and in no acute distress. HEENT--PERRL, EOMI, mucous membranes and oropharynx mildly dry Neck--supple. No JVD. No bruits. Thyroid normal, trachea midline, no adenopathy. Heart--normal S1 and S2. No murmurs, rubs or gallops. Lungs--clear bilaterally, no respiratory distress, no accessory muscle use. Abdomen--right UQ tenderness Extremities--no cyanosis or clubbing. No edema. Dermatologic--normal skin turgor, normal color, no abnormal lymph nodes, no rash. Neurologic--cranial nerves II through XII grossly intact. Rheumatologic--normal range of motion. Psychiatric--normal affect. Results & Data Results & Data ([facility]) Vital Signs (Past 12 Hours) Vital Signs Temp Pulse Pulse Resp BP BP Pulse Ox 02/07/22 15:14 98.1 F 78 18 122/80 98 02/07/22 14:49 97.9 F 72 17 118/75 99 02/07/22 14:05 97.9 F 66 17 126/75 96 02/07/22 13:38 97.5 F L 65 16 117/75 99 02/07/22 12:55 97.2 F L 70 16 111/68 96 02/07/22 12:45 64 18 111/72 96 02/07/22 12:35 64 18 120/76 100 02/07/22 12:25 62 18 125/75 98 02/07/22 12:19 97.2 F L 67 18 135/81 97 02/07/22 10:13 98.4 F 69 20 102/68 97 02/07/22 07:22 97.9 F 56 L 16 115/67 96 O2 Del Method O2 Flow Rate 02/07/22 15:14 Nasal Cannula 4 02/07/22 14:49 Nasal Cannula 4 02/07/22 14:05 Nasal Cannula 4 02/07/22 13:38 Nasal Cannula 4 02/07/22 12:55 Nasal Cannula 4 02/07/22 12:45 Nasal Cannula 4 02/07/22 12:35 Oxymask 5 02/07/22 12:25 Oxymask 5 02/07/22 12:19 Oxymask 5 02/07/22 10:13 Room Air 02/07/22 07:22 Room Air PG Care Time/CCT Total # of Minutes Spent Total Time Spent with Patient: Total time spent is greater than 50% in coordination of care (as documented) at patient's floor/unit and/or counseling patient: Coding Level of Care Code 14604 Subseq Hosp Care Lvl 2 Diagnoses Abdominal pain R10.9 Osteomyelitis of sacrum M46.28 CKD (chronic kidney disease) stage 5, GFR less than 15 ml/min N18.5 Atrial fibrillation I48.2 Atrial fibrillation type: permanent Hypertension I10 Hypertension type: essential hypertension Sacral decubitus ulcer, stage IV L89.154 Sleep apnea G47.30 Abdominal aortic aneurysm I71.4 Presence of rupture: without rupture Inability to walk R26.2 Time Spent (min) 35 (1) Atrial fibrillation Atrial fibrillation type: permanent Qualified Code(s): I48.2 - Chronic atrial fibrillation (2) Hypertension Hypertension type: essential hypertension Qualified Code(s): I10 - Essential (primary) hypertension (3) Abdominal aortic aneurysm Presence of rupture: without rupture Qualified Code(s): I71.4 - Abdominal aortic aneurysm, without rupture
[2022-02-07] MEDS: CHOLECALCIFEROL 1,000 UNITS 25 MCG TAB PO SCH (21:26)
[2022-02-07] MEDS: NORTRIPTYLINE HCL 25 MG CAP PO SCH (21:26)
[2022-02-08 05:01] LABS: HBSAG NON-REACTIVE (NON-REACTIVE); Hepatitis B Surface Ab, Quant <5 mIU/mL (> OR = 10)
[2022-02-08 07:47] LABS: Basophils # (auto) 0.05 K/uL (0-0.2); Basophils % (auto) 1.1 %; Eosinophils # (auto) 0.46 K/uL (0-0.50); Eosinophils % (auto) 10.2 %; Hematocrit (blood only) 26.7 % (40.1-51.0); Hemoglobin 8.6 g/dl (14.0-18.0); Immature Granulocytes # (auto) 0.01 K/uL (0.00-0.02); Immature Granulocytes % (auto) 0.2 %; Lymphocytes # (auto) 0.58 K/uL (1.2-3.4); Lymphocytes % (auto) 12.8 %; Mean Corpuscular Hemoglobin 30.7 pg (25.0-34.0); Mean Corpuscular Hgb Conc 32.2 g/dL (32.0-36.0); Mean Corpuscular Volume 95.4 fL (80.0-100.0); Mean Platelet Volume 8.9 fL (9.4-12.4); Monocytes # (auto) 0.46 K/uL (0.24-0.82); Monocytes % (auto) 10.2 %; Neutrophils # (auto) 2.96 K/uL (1.4-6.5); Neutrophils % (auto) 65.5 %; Platelet Count 138 K/uL (130-400); RDW Coefficient of Variation 13.6 % (11.5-14.5); RDW Standard Deviation 48.5 fL (36.4-46.3); White Blood Count 4.52 K/ul (4.8-10.8)
[2022-02-08 08:20] LABS: BUN Creatinine Ratio 17.2 (10-20); Calcium 8.7 mg/dl (8.5-10.1); Creatinine Clr Calc Pharmacy 12.7 ml/min; Est GFR (African American) 8.9 ml/min; Est GFR (Non-African American) 7.7 ml/min; Magnesium 2.9 mg/dl (1.7-2.4); Potassium 5.1 mmol/L (3.5-5.1)
[2022-02-08 08:27] LABS: Ferritin 202.8 ng/ml (8-388)
[2022-02-08] MEDS: FERROUS SULFATE 325 MG TAB PO SCH ×2 (08:40→17:58)
[2022-02-08] MEDS: HEPARIN SOD 5,000 UNIT/0.5 ML VIAL SQ SCH ×2 (08:40→20:38)
--- NOTE | 2022-02-08 08:41 | Nephrology Progress Note ---
Date of Service February 08, 2022 Assessment & Plan (1) ESRD (end stage renal disease): Plan: * ESKD due to microvascular disease and HTN * Although nonoliguric, Cr has risen to 6.45 w/ BUN 111 * Plan IJ TCC today followed by heparin free 1st run HD * Plan second HD treatment in am * Monitor PRP * Stop NaHCO3, start nephrocaps * Case management has been consulted to set up outpatient HD at [facility] (2) Cholecystitis: Plan: * 02/05/22 Hepatobiliary scan was negative for cystic duct obstruction (3) Osteomyelitis of sacrum: Plan: * Exposed bone - biopsy completed 02/07/22. Await histology results (4) Atrial fibrillation: Plan: * On apixaban (5) Abdominal aortic aneurysm: Plan: * Chronic dissection extending into iliac artery Admission and Anticipated Discharge Date Admission Date: February 05, 2022 Subjective Mr. Escobedo was evaluated in his hospital room this morning. He underwent sacral biopsy yesterday without complication. He is agreeable to IJ TCC insertion and initiation of HD today Review of Systems Constitutional: + weakness; no fever Eyes: no problem reported Ear, Nose, Mouth, Throat: no problem reported Respiratory: no cough and no dyspnea Cardiovascular: no chest pain, no palpitations and no edema Gastrointestinal: + abdominal pain (RUQ) Genitourinary: no dysuria (performs CIC due to neurogenic bladder) Integumentary: no rash Neurologic: no confusion Physical Exam Constitutional: + frail appearing; not in distress Eyes: PERRL, conjunctivae normal, anicteric sclerae ENMT: external ear and nose normal, oropharynx normal Neck: trachea midline, no thyromegaly Respiratory: normal respiratory effort, lungs clear to auscultation Cardiovascular: Rate/Rhythm: regular rate and regular rhythm Heart Sounds: + murmur Extremities: + edema (1+ pretibial pitting edema) Gastrointestinal (Abdomen): Inspection/Auscultation: abdomen normal to inspection and normal bowel sounds Percussion/Palpation: abdomen nontender and no guarding Neurologic: awake; not confused Psychiatric: A+Ox3, euthymic affect Results & Data ([facility]) Vital Signs (Past 12 Hours) Vital Signs Temp Pulse Pulse Resp BP BP Pulse Ox 02/08/22 08:00 36.4 C L 69 16 113/70 94 02/07/22 23:21 36.8 C 78 18 137/80 98 O2 Del Method 02/08/22 08:00 Room Air 02/07/22 23:21 Room Air Laboratory Results Laboratory Tests 02/08/22 02/08/22 07:37 07:37 WBC 4.52 L Hgb 8.6 L Hct 26.7 L Plt Count 138 Sodium 136 Potassium 5.1 Chloride 103 Carbon Dioxide 21 BUN 111 H Creatinine 6.45 H* D Est GFR (Non-Af Amer) 7.7 Magnesium 2.9 H Transferrin % Sat Pending Ferritin 202.8 PG Care Time/CCT Total # of Minutes Spent Total Time Spent with Patient: Total time spent is greater than 50% in coordination of care (as documented) at patient's floor/unit and/or counseling patient: Coding Level of Care Code 83667 Subseq Hosp Care Lvl 3 Diagnoses ESRD (end stage renal disease) N18.6 Cholecystitis K81.9 Osteomyelitis of sacrum M46.28 Atrial fibrillation I48.2 Atrial fibrillation type: permanent Abdominal aortic aneurysm I71.4 Presence of rupture: without rupture (1) Abdominal aortic aneurysm Presence of rupture: without rupture Qualified Code(s): I71.4 - Abdominal aortic aneurysm, without rupture (2) Atrial fibrillation Atrial fibrillation type: permanent Qualified Code(s): I48.2 - Chronic atrial fibrillation
[2022-02-08] MEDS ORDERED: SODIUM CHLORIDE 0.9% 1000ML 1,000 ML IV PRN (08:42)
[2022-02-08] MEDS ORDERED: EPOETIN ALFA 10,000 UNITS/ML VIAL IV SCH (09:00)
--- NOTE | 2022-02-08 09:22 | Consultation ---
Date of Consultation February 08, 2022 Assessment & Plan (1) Acute kidney injury: Pt scheduled for permcath insertion later this AM. Procedure, risks, benefits, and alternatives discussed with pt at Dr Marroquin's request. Pt expresses understanding and agreement. Will discuss AVF creation at later time. Patient was seen, examined, and chart reviewed. Agree with exam and treatment plan of the Vascular PA. Patient for permcath insertion today. I have discussed the risks options and benefits of the procedure with the patient. The patient understands the risks options and benefits and agrees to the procedure. History of Present Illness Reason for Consultation: ESRD need permcath Attending Physician: Maria De Jesus Alford MD History of Present Illness 76 yo m with multiple medical problems, including CKD, hx ascending aortic repair, juxtarenal AAA, iliac aneurysm with focal dissection, HTN, anemia, severe lumbar spinal stenosis, a fib, hyperlipidemia, osteoarthritis, WEI, anxiety, admitted with osteomyelitis at site of sacral decubitus ulceration, seen today in consultation for TDC insertion for HD initiation. Pt well known to Dr Marroquin for surveillance of ascending aortic aneurysm repair and juxtarenal AAA and iliac aneruysm with stable dissection, last seen in 04/2021 and scheduled for surveillance in 04/2022. He was admitted with osteomyelitis and acute worsening of renal function. He has been hyperkalemic, but K is 5.1 today. Pt admits pain in spine and sacrum. Denies MATTA, fever, chest pain, SOb, abd pain, N/V, rest pain, other complaints. He has been wheelchair bound for months d/t back pain. Allergies Allergy/AdvReac Type Severity Reaction Status Date / Time tetracycline Allergy Intermediate HIVES Verified 02/05/22 11:58 morphine AdvReac Intermediate Nausea Verified 02/05/22 11:58 Home Medications Medication Instructions Recorded Confirmed Type multivitamin with minerals 1 tab PO QAM 04/06/18 02/05/22 History cholecalciferol (vitamin D3) 50 50 mcg PO QPM 12/31/19 02/05/22 History mcg (2,000 unit) tablet (Vitamin D3) azelastine 205.5 mcg (0.15 %) 1 spray intranasal HS PRN seasonal 09/04/20 02/05/22 Rx nasal spray allergies #30 mL minoxidil 10 mg tablet 10 mg PO QAM #90 tabs 12/18/20 02/05/22 Rx atorvastatin 20 mg tablet (Lipitor) 20 mg PO QPM 05/11/21 02/05/22 History sodium bicarbonate 650 mg tablet 650 mg PO BID #180 tabs 07/04/21 02/05/22 Rx acetaminophen 500 mg tablet 1,000 mg PO DIRECTED PRN Pain 07/13/21 02/05/22 History (Tylenol Extra Strength) ferrous sulfate 325 mg (65 mg 325 mg PO BIDM #60 tabs 08/01/21 02/05/22 Rx iron) tablet,delayed release metoprolol succinate 25 mg 25 mg PO QAM #30 tabs 08/01/21 02/05/22 Rx tablet,extended release 24 hr methenamine hippurate 1 gram tablet 1 g PO DAILY #30 tabs 09/27/21 02/05/22 Rx apixaban 2.5 mg tablet (Eliquis) 2.5 mg PO BID #180 tabs 12/13/21 02/05/22 Rx gabapentin 300 mg capsule 300 mg PO BID #60 caps 01/02/22 02/05/22 Rx Wheelchair (Powered) (Power #1 ea 01/04/22 02/01/22 Rx Wheelchair) darbepoetin nimisha in polysorbat 60 60 mcg (0.3 mL) subcut .every 01/08/22 02/05/22 Rx mcg/0.3 mL in polysorbate other week #2 syringes injection syringe (Aranesp) spironolactone 50 mg tablet 50 mg PO DAILY #90 tabs 01/25/22 02/05/22 Rx torsemide 40 mg tablet 80 mg PO BID #120 tabs 01/25/22 02/05/22 Rx amoxicillin 500 mg capsule 500 mg PO BID #28 caps 01/28/22 02/05/22 Rx nortriptyline 25 mg capsule 25 mg PO HS #30 caps 02/01/22 02/05/22 Rx Patient History Medical History Abdominal aortic aneurysm (~2014) S/p Type A dissection with emergent repair in 2014 Later found to have AAA 3.5cm- followed by vascular surgery with medical management Anemia due to chronic kidney disease Anxiety Atrial fibrillation Follows with [facility] cardiology (Dr. Jarvis) On Eliquis BPH with obstruction/lower urinary tract symptoms DENIES ENLARGED PROSTATE Chronic kidney disease, stage V History of CHF (congestive heart failure) 2004 Hyperlipidemia Hypertension Lumbar spinal stenosis Mitral regurgitation Neurogenic bladder Self Catheterization since Aortic repair Neuropathic pain PTSD (post-traumatic stress disorder) POST AORTIC DISSECTION Sleep apnea CPAP Spinal cord cysts Pt states L1 and L2, dx 05/2021, [place]. Sh[place]ha [place] [facility] [place] History History of arthroplasty of left hip History of arthroscopy RT KNEE History of bladder surgery History of cardiac catheterization 2004 - no stents - [facility] in [place] History of cardioversion mult History of cataract surgery RT/LEFT History of colonoscopy History of esophagogastroduodenoscopy (EGD) History of gastric bypass 2010 History of lumbar fusion History of open reduction and internal fixation (ORIF) procedure RT WRIST 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 History of revision of total hip arthroplasty left History of rhinoplasty History of tooth extraction History of total knee replacement RT History of total left hip arthroplasty (~12/2019) History of transurethral resection of prostate Nausea and vomiting after administration of anesthetic agent S/P debridement (06/27/21) Excisional Debridement Sacral Decubitus Ulcer down to muscle level 4cm x 6cm - Ranjeet Myers, DO 06/27/2021 Excisional Debridement of Sacral Decubitus Ulcer Down to Bone, 11cm x 10cm(Not Applicable) - Ranjeet Myers, DO 07/25/2021 S/P revision of total hip S/P total right hip arthroplasty Family History Grandmother Family history of diabetes mellitus Mother Gallbladder disease Father Prostate cancer Myocardial infarction Hypertension Other Family history non-contributory No family history of adverse response to anesthesia Denies family history of Ovarian cancer Breast cancer Colorectal cancer Social History Smoking Status: Never smoker Second Hand Exposure: No; Hx Alcohol Use: No Hx Substance Use: No Preferred Language: Afghan Communication Ability: Effective Visual Impairment: Limited Hearing Ability: Normal Layout Artist Required: No Beliefs That Will Affect Care: None marital status: Current Living Situation: Spouse Current Living Situation Comment: Lives with at home current occupational status: retired How many Children do You have: 1 Other Information That Helps Us Care for You: No Feels Safe at Home: Yes Safety Concerns: Feels Safe At This Time Childhood Exposure to Second-Hand Smoke: Yes (father did ) Diet Comment: low sugar, low phospate caffeine: Yes (tea) during the past year weight has: remained stable Dental Care, Regularly: Yes Physical Activity Frequency: Does not Exercise Physical Activity Frequency Comment: goes to PT twice a week Seatbelt Use: always Sunscreen Use: Yes Do you think of yourself as: straight/heterosexual Gender Identity: Male Assistive Devices: Wheelchair Review of Systems Review of Systems: All systems reviewed & are unremarkable except as noted in HPI & below Physical Exam Constitutional: WD/WN, vitals as above cooperative and comfortable; not in distress Neck: trachea midline Respiratory: normal respiratory effort, lungs clear to auscultation Auscultation: + diminished lung sounds Cardiovascular: Rate/Rhythm: + irregularly irregular Vessels: femoral pulses present, dorsalis pedis pulses present and radial pulses present; + abnormal peripheral pulses Extremities: normal capillary refill; no edema Gastrointestinal (Abdomen): Inspection/Auscultation: abdomen normal to inspection and normal bowel sounds Percussion/Palpation: abdomen soft; abdomen nontender Musculoskeletal: no cyanosis or clubbing, extremities motor strength 5/5 Skin: no rashes, warm and dry + ulcer (sacrum) Neurologic: moves all extremities and awake; no focal motor deficits and not confused Psychiatric: A+Ox3, euthymic affect Results & Data ([facility]) Vital Signs (Past 12 Hours) Vital Signs Temp Pulse Pulse Resp BP BP Pulse Ox 02/08/22 08:00 36.4 C L 69 16 113/70 94 02/07/22 23:21 36.8 C 78 18 137/80 98 O2 Del Method 02/08/22 08:00 Room Air 02/07/22 23:21 Room Air
[2022-02-08] MEDS ORDERED: HEPARIN SOD (PORCINE) 5,000 UNITS/ML VIAL ONE (09:24)
[2022-02-08] MEDS ORDERED: fentaNYL citrate 100 MCG/2 ML VIAL ONE (09:25)
[2022-02-08] MEDS ORDERED: MIDAZOLAM HCL 1 MG/ML 2ML VIAL ONE (09:25)
[2022-02-08] MEDS ORDERED: ceFAZolin 1000MG 1,000 MG/7.5 ML SYR IV ONE (09:39)
--- NOTE | 2022-02-08 09:42 | Pre Anesthesia Assessment ---
Date of Service February 08, 2022 Pre Sedation Assessment Vital Signs Temp Pulse Pulse Resp BP BP Pulse Ox 02/08/22 08:00 36.4 C L 69 16 113/70 94 02/07/22 23:21 36.8 C 78 18 137/80 98 02/07/22 16:10 36.3 C L 78 16 119/79 98 02/07/22 15:14 36.7 C 78 18 122/80 98 02/07/22 14:49 36.6 C 72 17 118/75 99 02/07/22 14:05 36.6 C 66 17 126/75 96 02/07/22 13:38 36.4 C L 65 16 117/75 99 02/07/22 12:55 36.2 C L 70 16 111/68 96 02/07/22 12:45 64 18 111/72 96 02/07/22 12:35 64 18 120/76 100 02/07/22 12:25 62 18 125/75 98 02/07/22 12:19 36.2 C L 67 18 135/81 97 02/07/22 10:13 36.9 C 69 20 102/68 97 O2 Del Method O2 Flow Rate 02/08/22 08:00 Room Air 02/07/22 23:21 Room Air 02/07/22 16:10 Room Air 02/07/22 15:14 Nasal Cannula 4 02/07/22 14:49 Nasal Cannula 4 02/07/22 14:05 Nasal Cannula 4 02/07/22 13:38 Nasal Cannula 4 02/07/22 12:55 Nasal Cannula 4 02/07/22 12:45 Nasal Cannula 4 02/07/22 12:35 Oxymask 5 02/07/22 12:25 Oxymask 5 02/07/22 12:19 Oxymask 5 02/07/22 10:13 Room Air Cardiovascular RRR, no murmur, no edema Respiratory normal respiratory effort, lungs clear to auscultation Pre-Sedation Airway Assessment Smoking Status: Never smoker Hx Sleep Apnea: Yes Short, Thick Neck: No Thyromental Distance: > or= 3.5 Finger Breadths Oral Cavity: + Dental Abnormalities Mallampati Class: III ASA: ASA4 NPO Status Date of Last Intake of Fluids: 02/08/22 Time of Last Intake of Fluids: 00:00 Last Oral Intake of Fluids Comment: atleast since midnight, sips with medication this am Date of Last Intake of Solid Food: 02/08/22 Time of Last Intake of Solid Foods: 00:00 Procedure Planning Contraindications for Sedation: none Current Medications Reviewed: Yes Notes The planned sedation has been discussed with the patient. Informed Consent was obtained. I have identified the patient, determined the appropriateness of sedation and have assessed the patient immediately prior to the procedure. All medicine(s) and interventions are by my order.
[2022-02-08] MEDS: minoxidiL 2.5 MG TAB PO SCH (10:08)
[2022-02-08] MEDS: GABAPENTIN 300 MG CAP PO SCH ×2 (10:08→20:38)
[2022-02-08] MEDS ORDERED: LIDOCAINE 1% LOCAL 20 ML VIAL INFIL ONE (10:26)
--- NOTE | 2022-02-08 10:30 | Operative Report ---
Post Operative Report Pre & Post Diagnosis Operation Date: 02/07/22 10:25 Pre-Op Diagnosis: non-healing sacral wound Post-Op Diagnosis: non-healing sacral wound Operation Date: 02/08/22 10:20 Pre-Op Diagnosis: Acute Kidney Injury Post-Op Diagnosis: Acute Kidney Injury I identified the patient and participated in the time-out.: Yes Procedure Operation Date: 02/07/22 10:25 Actual Procedures p Sacral Wound Debridment, Sacral bone biopsy(Not Applicable) - Jose Le DO Operation Date: 02/08/22 10:20 Actual Procedures p Insertion of Perm Catheter, Right Internal Jugular Approach, Ultrasound Localization of Right Internal Jugular, Fluroscopy for Positioning, Moderate Sedation [id number](Right) - Demetri Marroquin MD Surgeon Demetri 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 He has acute kidney injury in need of dialysis. He did have renal insufficiency in the past. PermCath insertion was recommended for dialysis. I have discussed the risks options and benefits of the procedure with the patient. The patient understands the risks options and benefits and agrees to the procedure. Description of Procedure Patient was taken to the angio suite and placed in the supine position. The right side of the neck and chest wall were prepped and draped in a sterile manner. The patient was identified and a timeout performed. Local anesthesia was then administered to the appropriate areas of the neck and chest wall. Ultrasound was then used to locate the right internal jugular vein. The vein compressed easily, had no filing defects, and was patent. The vein was then punctured under direct ultrasound imaging. A guidewire was then passed centrally under fluoroscopic imaging. A stab wound was then made in the anterior chest wall and a 19 cm permcath was passed from the stab wound on the chest wall to the puncture site on the neck. The puncture site was then dilated till the 14Fr peel away sheath was inserted. The permcath was then inserted through the sheath to a central position in the distal superior vena cava. The peel away sheath was then removed. The catheter was then sutured in place using nylon sutures. The puncture was then closed using a 4-0 Vicryl subcuticular suture. Dermabond was used for a dressing on the puncture site. Both ports aspirated and flushed easily and were then packed with heparin. A sterile dressing was applied to the catheter. The patient left the operation room in satisfactory condition and tolerated the procedure well. All needle and sponge counts were correct at the end of the procedure. I attest to the content of the Intraoperative Record and any orders documented therein. Any exceptions are noted below.
--- NOTE | 2022-02-08 10:31 | Post Anesthesia Assessment ---
Date of Service February 08, 2022 Post Sedation Assessment Vital Signs Temp Pulse Pulse Pulse Resp BP BP 02/08/22 10:25 71 20 135/99 02/08/22 10:20 80 20 158/91 H 02/08/22 10:15 69 14 142/97 H 02/08/22 10:10 73 14 151/100 H 02/08/22 10:05 68 20 141/91 H 02/08/22 10:26 77 20 141/96 H 02/08/22 10:00 86 20 137/93 02/08/22 09:05 36.7 C 70 20 120/70 02/08/22 08:00 36.4 C L 69 16 113/70 02/07/22 23:21 36.8 C 78 18 137/80 02/07/22 16:10 36.3 C L 78 16 119/79 02/07/22 15:14 36.7 C 78 18 122/80 02/07/22 14:49 36.6 C 72 17 118/75 02/07/22 14:05 36.6 C 66 17 126/75 02/07/22 13:38 36.4 C L 65 16 117/75 02/07/22 12:55 36.2 C L 70 16 111/68 02/07/22 12:45 64 18 111/72 02/07/22 12:35 64 18 120/76 02/07/22 12:25 62 18 125/75 02/07/22 12:19 36.2 C L 67 18 135/81 Pulse Ox O2 Del Method O2 Flow Rate 02/08/22 10:25 98 Oxymask 4 02/08/22 10:20 98 Oxymask 4 02/08/22 10:15 98 Oxymask 4 02/08/22 10:10 98 Oxymask 4 02/08/22 10:05 99 Oxymask 4 02/08/22 10:26 98 Oxymask 4 02/08/22 10:00 97 Oxymask 4 02/08/22 09:05 97 Room Air 02/08/22 08:00 94 Room Air 02/07/22 23:21 98 Room Air 02/07/22 16:10 98 Room Air 02/07/22 15:14 98 Nasal Cannula 4 02/07/22 14:49 99 Nasal Cannula 4 02/07/22 14:05 96 Nasal Cannula 4 02/07/22 13:38 99 Nasal Cannula 4 02/07/22 12:55 96 Nasal Cannula 4 02/07/22 12:45 96 Nasal Cannula 4 02/07/22 12:35 100 Oxymask 5 02/07/22 12:25 98 Oxymask 5 02/07/22 12:19 97 Oxymask 5 Recovery Score Activity: Moves 4 extremities Respiration: Deep Breath/Cough Circulation: +/-20% PreAnes Value Consciousness: Fully Awake Oxygen Saturation: O2 needed for >90% Post Anesthesia Score: 9 Discharge Sedation Level of Care: Fast Track Phase II Post Sedation Plan On clinical assessment, the patient appears to have tolerated the sedation without complications. Patient is recovering as anticipated. Patient will continue to be monitored by nursing and may be discharged when sedation discharge criteria are met per below protocol. Upon Completions of procedure up to 15 minutes continue every 5 minute vital signs and the P.A.R. score; then discharge to a Phase I or Fast Track to Phase II per the following guidelines: * Discharge Patient to appropriate Phase II area if PAR is 8 or greater or return to pre- procedure baseline. The post - procedure orders will be as directed. * If PAR score is less than 8 or not return to pre-procedure baseline then patient will follow Phase I monitoring till PAR is reached for Phase II. The Phase I may be done in procedure room or may call to secure a Phase I area. * If naloxone or flumazenil are used for reversal, hold in Phase I for continued monitoring from when last reversal dose was given for a minimum of 60 minutes or longer pending the nurse and/or physician discretion of patient condition before discharge to Phase II. Please call the Sedation Physician to re-evaluate and complete post-note for discharge to Phase II area. Do NOT discharge from procedure sedation or Phase 1 until post- sedation evaluation note is complete by procedure /sedation MD Sedation Discharge Instructions to be given to the patient at discharge to home.
[2022-02-08] MEDS: SODIUM BICARBONATE 650 MG TAB PO SCH (10:33)
[2022-02-08] MEDS: CEROVITE ADV FORMULA TAB PO SCH (10:33)
[2022-02-08] MEDS: MoRPHine SULFATE 2 MG/ML CARP IV PRN ×2 (13:28→20:17)
[2022-02-08] MEDS: ONDANSETRON INJ 2 MG/ML 2 ML VIAL IV PRN ×2 (13:28→20:18)
[2022-02-08] MEDS: METOPROLOL SUCC 25MG EXT REL TAB PO SCH (13:37)
--- NOTE | 2022-02-08 15:12 | Hospitalist Progress Note ---
Date of Service February 08, 2022 Assessment & Plan (1) Osteomyelitis of sacrum: Plan: Chronic with osteomyelitis history, with exposed bone Now s/p wound debridement and bone biopsy Patient initially on Daptomycin and Meropenem, however, currently on hold at the advice of ID pending availability of biopsy result CRP mildly elevated at 5 Patient is afebrile, WBC wnl Await culture results from pathology (2) CKD (chronic kidney disease) stage 5, GFR less than 15 ml/min: Plan: Vein mapping has been done for outpatient AV fistula creation For permacath insertion today for HD Appreciate nephrology recs (3) Abdominal pain: Plan: Edematous gallbladder seen on CT However, HIDA scan was essentially normal, no filling defect, no suggestion of acute cholecystitis (4) Atrial fibrillation: Plan: Chronic- is on renal dose eliquis - will hold until surgical plan developed - heparin sub q q12 for VTE (5) Hypertension: Plan: Continue with metoprolol (6) Sacral decubitus ulcer, 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 with noted disection following stable at this time previously measured in 2020 3.3 Continue BP control and statin (9) Inability to walk: Plan: He endorses that he has been wheel chair bound since June - Has previous stenosis with surgical repair - MRI in 06/17- with progressive L5-S1 stenosis with encroachment on L5 nerve ro ot Plan continue hospitalization Admission and Anticipated Discharge Date Admission Date: February 05, 2022 Subjective patient seen and examined, going for permacath insertion Review of Systems Review of Systems: All systems reviewed are negative, apart from the ones contained in the history. Physical Exam Physical Exam: The patient is awake, alert and oriented 3, well developed and well nourished, normocephalic and atraumatic, lying in bed and in no acute distress. HEENT--PERRL, EOMI, mucous membranes and oropharynx mildly dry Neck--supple. No JVD. No bruits. Thyroid normal, trachea midline, no adenopathy. Heart--normal S1 and S2. No murmurs, rubs or gallops. Lungs--clear bilaterally, no respiratory distress, no accessory muscle use. Abdomen--right UQ tenderness Extremities--no cyanosis or clubbing. No edema. Dermatologic--normal skin turgor, normal color, no abnormal lymph nodes, no rash. Neurologic--cranial nerves II through XII grossly intact. Rheumatologic--normal range of motion. Psychiatric--normal affect. Results & Data Results & Data ([facility]) Vital Signs (Past 12 Hours) Vital Signs Temp Pulse Pulse Pulse Pulse Pulse Resp 02/08/22 13:10 97.5 F L 96 H 20 02/08/22 13:00 97.9 F 80 02/08/22 12:30 75 02/08/22 12:00 73 02/08/22 11:30 79 02/08/22 11:00 75 02/08/22 10:45 97.7 F 75 02/08/22 10:31 78 20 02/08/22 10:25 71 20 02/08/22 10:20 80 20 02/08/22 10:15 69 14 02/08/22 10:10 73 14 02/08/22 10:05 68 20 02/08/22 10:26 77 20 02/08/22 10:00 86 20 02/08/22 09:05 98.1 F 70 20 02/08/22 08:00 97.5 F L 69 16 BP BP BP Pulse Ox O2 Del Method O2 Flow Rate 02/08/22 13:10 124/71 92 Room Air 02/08/22 13:00 135/89 02/08/22 12:30 137/89 02/08/22 12:00 130/92 02/08/22 11:30 136/85 02/08/22 11:00 154/97 H 02/08/22 10:45 02/08/22 10:31 145/88 H 97 Room Air 02/08/22 10:25 135/99 98 Oxymask 4 02/08/22 10:20 158/91 H 98 Oxymask 4 02/08/22 10:15 142/97 H 98 Oxymask 4 02/08/22 10:10 151/100 H 98 Oxymask 4 02/08/22 10:05 141/91 H 99 Oxymask 4 02/08/22 10:26 141/96 H 98 Oxymask 4 02/08/22 10:00 137/93 97 Oxymask 4 02/08/22 09:05 120/70 97 Room Air 02/08/22 08:00 113/70 94 Room Air PG Care Time/CCT Total # of Minutes Spent Total Time Spent with Patient: Total time spent is greater than 50% in coordination of care (as documented) at patient's floor/unit and/or counseling patient: Coding Level of Care Code 50654 Subseq Hosp Care Lvl 2 Diagnoses Osteomyelitis of sacrum M46.28 CKD (chronic kidney disease) stage 5, GFR less than 15 ml/min N18.5 Abdominal pain R10.9 Atrial fibrillation I48.2 Atrial fibrillation type: permanent Hypertension I10 Hypertension type: essential hypertension Sacral decubitus ulcer, stage IV L89.154 Sleep apnea G47.30 Abdominal aortic aneurysm I71.4 Presence of rupture: without rupture Inability to walk R26.2 Time Spent (min) 35 (1) Atrial fibrillation Atrial fibrillation type: permanent Qualified Code(s): I48.2 - Chronic atrial fibrillation (2) Hypertension Hypertension type: essential hypertension Qualified Code(s): I10 - Essential (primary) hypertension (3) Abdominal aortic aneurysm Presence of rupture: without rupture Qualified Code(s): I71.4 - Abdominal aortic aneurysm, without rupture
[2022-02-08] MEDS: NORTRIPTYLINE HCL 25 MG CAP PO SCH (20:38)
[2022-02-09 06:53] LABS: Hematocrit (blood only) 26.9 % (40.1-51.0); Hemoglobin 8.6 g/dl (14.0-18.0); Mean Corpuscular Hemoglobin 30.7 pg (25.0-34.0); Mean Corpuscular Volume 96.1 fL (80.0-100.0); Mean Platelet Volume 9.3 fL (9.4-12.4); Platelet Count 139 K/uL (130-400); RDW Coefficient of Variation 13.6 % (11.5-14.5); RDW Standard Deviation 48.9 fL (36.4-46.3); White Blood Count 4.83 K/ul (4.8-10.8)
[2022-02-09] MEDS ORDERED: SODIUM CHLORIDE 0.9% 1000ML 1,000 ML IV PRN (07:00)
[2022-02-09 07:40] LABS: BUN Creatinine Ratio 15.9 (10-20); Calcium 8.7 mg/dl (8.5-10.1); Creatinine Clr Calc Pharmacy 15.2 ml/min; Est GFR (African American) 11.2 ml/min; Est GFR (Non-African American) 9.7 ml/min
[2022-02-09] MEDS: METOPROLOL SUCC 25MG EXT REL TAB PO SCH (08:47)
[2022-02-09] MEDS: FERROUS SULFATE 325 MG TAB PO SCH ×2 (08:47→17:31)
[2022-02-09] MEDS: GABAPENTIN 300 MG CAP PO SCH ×2 (08:48→20:20)
[2022-02-09] MEDS: HEPARIN SOD 5,000 UNIT/0.5 ML VIAL SQ SCH ×2 (08:48→20:21)
[2022-02-09] MEDS: NEPHROCAPS PO SCH (08:48)
[2022-02-09] MEDS: CEROVITE ADV FORMULA TAB PO SCH (08:48)
[2022-02-09] MEDS: minoxidiL 2.5 MG TAB PO SCH (08:48)
--- NOTE | 2022-02-09 11:33 | Nephrology Progress Note ---
Date of Service February 09, 2022 Assessment & Plan (1) ESRD (end stage renal disease): (2) Anemia: (3) Anemia due to chronic kidney disease: (4) Osteomyelitis of sacrum: Plan ESRD, started on hemodialysis on 02/08/2022 via right IJ tunneled dialysis catheter. Had 1st dialysis is not treatment for 2 hours yesterday, tolerated well, no issues. Currently getting 2nd dialysis treatment for 3 hours. Admitted with chronic sacral decubitus ulcer and osteomyelitis, had debridement. Blood pressure acceptable, volume status acceptable. Electrolyte goal. --Continue on hemodialysis, plan for next dialysis on Friday for 4 hours -- case management consulted to set up outpatient dialysis at [facility]. -- Epogen 20450 units x 1 dose now -- check phosphate with morning labs, if elevated will start on phosphate binder with meals. --left arm nephrology precaution for future vascular access, dose meds for eGFR less than 10 Will follow Admission and Anticipated Discharge Date Admission Date: February 05, 2022 Marzena Blanc was seen and examined during dialysis this morning. Overall has been tolerating dialysis well. This is the 2nd dialysis treatment for him, currently having dialysis for 3 hours. Tolerated 1st dialysis yesterday without any incidence. Tunneled dialysis catheter has been having significant issues however, currently of working well but line reversed. No active bleeding from catheter site but has been somewhat painful because of medical a prasad yesterday. Blood pressure has been well controlled. Tolerating UF, no dizziness, lightheadedness or leg cramps. Appetite decent. Review of Systems Review of Systems: Detail ROS was otherwise unremarkable. Physical Exam Constitutional: WD/WN, vitals as above no acute distress Eyes: + anicteric sclerae Neck: normal visual inspection Respiratory: Auscultation: lungs clear to auscultation bilaterally Cardiovascular: Rate/Rhythm: regular rate and regular rhythm Extremities: no edema Skin: no rashes Neurologic: no focal motor deficits Psychiatric: Orientation: alert and oriented x 3 Results & Data ([facility]) Vital Signs (Past 12 Hours) Vital Signs Temp Pulse Pulse Pulse Resp BP BP 02/09/22 10:30 62 112/75 02/09/22 09:00 02/09/22 10:00 75 111/76 02/09/22 09:45 83 120/88 02/09/22 09:31 36.8 C 76 02/09/22 07:45 37.3 C 63 18 118/79 Pulse Ox O2 Del Method 02/09/22 10:30 02/09/22 09:00 Room Air 02/09/22 10:00 02/09/22 09:45 02/09/22 09:31 02/09/22 07:45 97 Room Air PG Care Time/CCT Total # of Minutes Spent Total Time Spent with Patient: Total time spent is greater than 50% in coordination of care (as documented) at patient's floor/unit and/or counseling patient: Coding Level of Care Code 37910 Subseq Hosp Care Lvl 3 Diagnoses ESRD (end stage renal disease) N18.6 Anemia N18.5; D63.1 Anemia type: due to chronic kidney disease Chronic kidney disease stage: stage 5, not on chronic dialysis Anemia due to chronic kidney disease N18.9; D63.1 Osteomyelitis of sacrum M46.28 (1) Anemia Anemia type: due to chronic kidney disease Chronic kidney disease stage: stage 5, not on chronic dialysis Qualified Code(s): N18.5 - Chronic kidney disease, stage 5; D63.1 - Anemia in chronic kidney disease
[2022-02-09] MEDS ORDERED: EPOETIN ALFA 40,000 UNITS/ML VIAL IV SCH (12:00)
--- NOTE | 2022-02-09 14:09 | Hospitalist Progress Note ---
Date of Service February 09, 2022 Assessment & Plan (1) Osteomyelitis of sacrum: Plan: Chronic with osteomyelitis history, with exposed bone Now s/p wound debridement and bone biopsy Patient initially on Daptomycin and Meropenem, however, currently on hold at the advice of ID pending availability of biopsy result CRP mildly elevated at 5 Patient is afebrile, WBC wnl Deep surgical cultures negative so far (2) CKD (chronic kidney disease) stage 5, GFR less than 15 ml/min: Plan: Vein mapping has been done for outpatient AV fistula creation Undergoing HD through a [facility] nephrology recs (3) Abdominal pain: Plan: Now resolved Edematous gallbladder seen on CT However, HIDA scan was essentially normal, no filling defect, no suggestion of acute cholecystitis (4) Atrial fibrillation: Plan: Chronic- is on renal dose eliquis - will hold until surgical plan developed - heparin sub q q12 for VTE -Resume upon discharge (5) Hypertension: Plan: Continue with metoprolol (6) Sacral decubitus ulcer, 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 with noted disection following stable at this time previously measured in 2020 3.3 Continue BP control and statin (9) Inability to walk: Plan: He endorses that he has been wheel chair bound since June - Has previous stenosis with surgical repair - MRI in 06/17- with progressive L5-S1 stenosis with encroachment on L5 nerve root Plan continue hospitalization, he will need SNF Admission and Anticipated Discharge Date Admission Date: February 05, 2022 Subjective patient seen and examined, tolerating HD, denies chest pain or SOB Review of Systems Review of Systems: All systems reviewed are negative, apart from the ones contained in the history. Physical Exam Physical Exam: The patient is awake, alert and oriented 3, well developed and well nourished, normocephalic and atraumatic, lying in bed and in no acute distress. HEENT--PERRL, EOMI, mucous membranes and oropharynx mildly dry Neck--supple. No JVD. No bruits. Thyroid normal, trachea midline, no adenopathy. Heart--normal S1 and S2. No murmurs, rubs or gallops. Lungs--clear bilaterally, no respiratory distress, no accessory muscle use. Abdomen--right UQ tenderness Extremities--no cyanosis or clubbing. No edema. Dermatologic--normal skin turgor, normal color, no abnormal lymph nodes, no rash. Neurologic--cranial nerves II through XII grossly intact. Rheumatologic--normal range of motion. Psychiatric--normal affect. Results & Data Results & Data ([facility]) Vital Signs (Past 12 Hours) Vital Signs Temp Pulse Pulse Pulse Resp BP BP 02/09/22 12:00 75 121/76 02/09/22 11:30 77 115/75 02/09/22 11:00 75 109/80 02/09/22 10:30 62 112/75 02/09/22 09:00 02/09/22 10:00 75 111/76 02/09/22 09:45 83 120/88 02/09/22 09:31 98.2 F 76 02/09/22 07:45 99.1 F 63 18 118/79 Pulse Ox O2 Del Method 02/09/22 12:00 02/09/22 11:30 02/09/22 11:00 02/09/22 10:30 02/09/22 09:00 Room Air 02/09/22 10:00 02/09/22 09:45 02/09/22 09:31 02/09/22 07:45 97 Room Air PG Care Time/CCT Total # of Minutes Spent Total Time Spent with Patient: Total time spent is greater than 50% in coordination of care (as documented) at patient's floor/unit and/or counseling patient: Coding Level of Care Code 38659 Subseq Hosp Care Lvl 2 Diagnoses Osteomyelitis of sacrum M46.28 CKD (chronic kidney disease) stage 5, GFR less than 15 ml/min N18.5 Abdominal pain R10.9 Atrial fibrillation I48.2 Atrial fibrillation type: permanent Hypertension I10 Hypertension type: essential hypertension Sacral decubitus ulcer, stage IV L89.154 Sleep apnea G47.30 Abdominal aortic aneurysm I71.4 Presence of rupture: without rupture Inability to walk R26.2 Time Spent (min) 35 (1) Atrial fibrillation Atrial fibrillation type: permanent Qualified Code(s): I48.2 - Chronic atrial fibrillation (2) Hypertension Hypertension type: essential hypertension Qualified Code(s): I10 - Essential (primary) hypertension (3) Abdominal aortic aneurysm Presence of rupture: without rupture Qualified Code(s): I71.4 - Abdominal aortic aneurysm, without rupture
[2022-02-09] MEDS: NORTRIPTYLINE HCL 25 MG CAP PO SCH (20:20)
[2022-02-10] MEDS: GABAPENTIN 300 MG CAP PO SCH (08:14)
[2022-02-10] MEDS: FERROUS SULFATE 325 MG TAB PO SCH ×2 (08:15→17:21)
[2022-02-10] MEDS: CEROVITE ADV FORMULA TAB PO SCH (08:15)
[2022-02-10] MEDS: NEPHROCAPS PO SCH (08:15)
[2022-02-10] MEDS: METOPROLOL SUCC 25MG EXT REL TAB PO SCH (08:15)
[2022-02-10] MEDS: minoxidiL 2.5 MG TAB PO SCH (08:15)
[2022-02-10] MEDS: HEPARIN SOD 5,000 UNIT/0.5 ML VIAL SQ SCH ×2 (08:18→21:07)
--- NOTE | 2022-02-10 10:52 | Nephrology Progress Note ---
Date of Service February 10, 2022 Assessment & Plan (1) ESRD (end stage renal disease): (2) Anemia: (3) Anemia due to chronic kidney disease: (4) Osteomyelitis of sacrum: Plan ESRD, started on hemodialysis on 02/08/2022 via right IJ tunneled dialysis catheter. Had 1st dialysis is not treatment for 2 hours yesterday, tolerated well, no issues. Currently getting 2nd dialysis treatment for 3 hours. Admitted with chronic sacral decubitus ulcer and osteomyelitis, had debridement. Blood pressure acceptable, volume status acceptable. -- next dialysis on Friday for 4 hours -- case management consulted to set up outpatient dialysis at [facility]. -- Epogen 06695 units x 1 dose with HD tomorrow -- check phosphate with morning labs, if elevated will start on phosphate binder with meals. -- left arm nephrology precaution for future vascular access, dose meds for eGFR less than 10 Will follow Admission and Anticipated Discharge Date Admission Date: February 05, 2022 Marzena Blanc was seen and examined this morning. Had 2nd dialysis treatment for 3 hours yesterday. No active bleeding from catheter site but entry site has mild erythema and tenderness. Blood pressure has been well controlled. Overall feeling well, denies any concerns.Appetite decent. Review of Systems Review of Systems: Detail ROS was otherwise unremarkable. Physical Exam Constitutional: WD/WN, vitals as above no acute distress Eyes: + anicteric sclerae Neck: normal visual inspection Respiratory: Auscultation: lungs clear to auscultation bilaterally Cardiovascular: Rate/Rhythm: regular rate and regular rhythm Extremities: no edema Skin: no rashes Neurologic: no focal motor deficits Psychiatric: Orientation: alert and oriented x 3 Results & Data ([facility]) Vital Signs (Past 12 Hours) Vital Signs Temp Pulse Pulse Resp BP Pulse Ox O2 Del Method 02/10/22 09:00 Room Air 02/10/22 07:30 36.8 C 75 16 130/77 97 CPAP 02/09/22 23:13 37 C 84 16 133/80 94 PG Care Time/CCT Total # of Minutes Spent Total Time Spent with Patient: Total time spent is greater than 50% in coordination of care (as documented) at patient's floor/unit and/or counseling patient: Coding Level of Care Code 05878 Subseq Hosp Care Lvl 3 Diagnoses ESRD (end stage renal disease) N18.6 Anemia N18.5; D63.1 Anemia type: due to chronic kidney disease Chronic kidney disease stage: stage 5, not on chronic dialysis Anemia due to chronic kidney disease N18.9; D63.1 Osteomyelitis of sacrum M46.28 (1) Anemia Anemia type: due to chronic kidney disease Chronic kidney disease stage: stage 5, not on chronic dialysis Qualified Code(s): N18.5 - Chronic kidney disease, stage 5; D63.1 - Anemia in chronic kidney disease
--- NOTE | 2022-02-10 14:03 | Hospitalist Progress Note ---
Date of Service February 10, 2022 Assessment & Plan (1) Osteomyelitis of sacrum: Plan: Chronic with osteomyelitis history, with exposed bone Now s/p wound debridement and bone biopsy Patient initially on Daptomycin and Meropenem, however, currently on hold at the advice of ID pending availability of biopsy result CRP mildly elevated at 5 Patient is afebrile, WBC wnl Deep surgical cultures negative so far (2) CKD (chronic kidney disease) stage 5, GFR less than 15 ml/min: Plan: Vein mapping has been done for outpatient AV fistula creation Undergoing HD through a [facility] nephrology recs (3) Abdominal pain: Plan: Now resolved Edematous gallbladder seen on CT However, HIDA scan was essentially normal, no filling defect, no suggestion of acute cholecystitis (4) Atrial fibrillation: Plan: Chronic- is on renal dose eliquis - will hold until surgical plan developed - heparin sub q q12 for VTE -Resume upon discharge (5) Hypertension: Plan: Continue with metoprolol (6) Sacral decubitus ulcer, 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 (7) Sleep apnea: Plan: Continue CPAP 9-11 cm H20 at night - he will try to bring in his machine (8) Abdominal aortic aneurysm: Plan: infrarenal aortic aneurysm is seen measuring up to 31 mm in diameter, 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. Patient unable to have Lumbar spinal surgery until his sacral wound heals. Currently, he is essentially bed bound and uses walker with difficulty Barrier to discharge: 1 Outpatient Dialysis chair has not been established yet. SW has faxed some papers Admission and Anticipated Discharge Date Admission Date: February 05, 2022 Subjective patient seen and examined, no new complaints Review of Systems Review of Systems: All systems reviewed are negative, apart from the ones contained in the history. Physical Exam Physical Exam: The patient is awake, alert and oriented 3, well developed and well nourished, normocephalic and atraumatic, lying in bed and in no acute distress. HEENT--PERRL, EOMI, mucous membranes and oropharynx mildly dry Neck--supple. No JVD. No bruits. Thyroid normal, trachea midline, no adenopathy. Heart--normal S1 and S2. No murmurs, rubs or gallops. Lungs--clear bilaterally, no respiratory distress, no accessory muscle use. Abdomen--right UQ tenderness Extremities--no cyanosis or clubbing. No edema. Dermatologic--normal skin turgor, normal color, no abnormal lymph nodes, no rash. Neurologic--cranial nerves II through XII grossly intact. Rheumatologic--normal range of motion. Psychiatric--normal affect. Results & Data Results & Data ([facility]) Vital Signs (Past 12 Hours) Vital Signs Temp Pulse Resp BP Pulse Ox O2 Del Method 02/10/22 09:00 Room Air 02/10/22 07:30 98.2 F 75 16 130/77 97 CPAP PG Care Time/CCT Total # of Minutes Spent Total Time Spent with Patient: Total time spent is greater than 50% in coordination of care (as documented) at patient's floor/unit and/or counseling patient: Coding Level of Care Code 73932 Subseq Hosp Care Lvl 2 Diagnoses Osteomyelitis of sacrum M46.28 CKD (chronic kidney disease) stage 5, GFR less than 15 ml/min N18.5 Abdominal pain R10.9 Atrial fibrillation I48.2 Atrial fibrillation type: permanent Hypertension I10 Hypertension type: essential hypertension Sacral decubitus ulcer, stage IV L89.154 Sleep apnea G47.30 Abdominal aortic aneurysm I71.4 Presence of rupture: without rupture Inability to walk R26.2 Time Spent (min) 35 (1) Atrial fibrillation Atrial fibrillation type: permanent Qualified Code(s): I48.2 - Chronic atrial fibrillation (2) Hypertension Hypertension type: essential hypertension Qualified Code(s): I10 - Essential (primary) hypertension (3) Abdominal aortic aneurysm Presence of rupture: without rupture Qualified Code(s): I71.4 - Abdominal aortic aneurysm, without rupture
[2022-02-10] MEDS: NORTRIPTYLINE HCL 25 MG CAP PO SCH (21:06)
[2022-02-10] MEDS: GABAPENTIN 100 MG CAP PO SCH (21:07)
[2022-02-11] MEDS: minoxidiL 2.5 MG TAB PO SCH (08:46)
[2022-02-11] MEDS: GABAPENTIN 100 MG CAP PO SCH ×2 (08:46→21:20)
[2022-02-11] MEDS: METOPROLOL SUCC 25MG EXT REL TAB PO SCH (08:46)
[2022-02-11] MEDS: NEPHROCAPS PO SCH (08:46)
[2022-02-11] MEDS: CEROVITE ADV FORMULA TAB PO SCH (08:46)
[2022-02-11] MEDS: HEPARIN SOD 5,000 UNIT/0.5 ML VIAL SQ SCH ×2 (08:47→21:19)
[2022-02-11] MEDS: FERROUS SULFATE 325 MG TAB PO SCH ×2 (08:48→16:34)
[2022-02-11] MEDS ORDERED: EPOETIN ALFA 10,000 UNITS/ML VIAL IV SCH (09:00)
[2022-02-11 09:17] LABS: Hemoglobin 8.8 g/dl (14.0-18.0); Mean Corpuscular Hemoglobin 29.9 pg (25.0-34.0); Mean Corpuscular Hgb Conc 31.4 g/dL (32.0-36.0); Mean Corpuscular Volume 95.2 fL (80.0-100.0); Mean Platelet Volume 9.4 fL (9.4-12.4); Platelet Count 137 K/uL (130-400); RDW Coefficient of Variation 13.2 % (11.5-14.5); RDW Standard Deviation 46.3 fL (36.4-46.3); Red Blood Count 2.94 M/uL (4.63-6.08); White Blood Count 4.64 K/ul (4.8-10.8)
[2022-02-11 09:57] LABS: Albumin Level 3.3 gm/dl (3.4-5.0); BUN Creatinine Ratio 11.7 (10-20); Calcium 8.6 mg/dl (8.5-10.1); Creatinine Clr Calc Pharmacy 17.8 ml/min; Est GFR (African American) 13.7 ml/min; Est GFR (Non-African American) 11.8 ml/min; Phosphorus 4.7 mg/dl (2.5-4.9); Potassium 4.3 mmol/L (3.5-5.1)
--- NOTE | 2022-02-11 10:36 | Nephrology Progress Note ---
Date of Service February 11, 2022 Assessment & Plan (1) ESRD (end stage renal disease): (2) Anemia: (3) Anemia due to chronic kidney disease: (4) Osteomyelitis of sacrum: Plan ESRD, started on hemodialysis on 02/08/2022 via right IJ tunneled dialysis catheter. Had 1st dialysis is not treatment for 2 hours yesterday, tolerated well, no issues. Currently getting 2nd dialysis treatment for 3 hours. Admitted with chronic sacral decubitus ulcer and osteomyelitis, had debridement. received daptomycin and meropenem, now off of antibiotic as per ID recommendation. Deep culture from sacral debridement was negative, waiting for bone biopsy report from 02/07/2022. Blood pressure acceptable, volume status acceptable. -- dialysis this afternoon for 4 hours -- case management consulted to set up outpatient dialysis at [facility]. -- Epogen 49211 units x 1 dose with HD tomorrow -- check phosphate with morning labs, if elevated will start on phosphate binder with meals. -- left arm nephrology precaution for future vascular access, dose meds for eGFR less than 10 Will follow Admission and Anticipated Discharge Date Admission Date: February 05, 2022 Review of Systems Review of Systems: Detail ROS was otherwise unremarkable. Physical Exam Constitutional: WD/WN, vitals as above no acute distress Eyes: + anicteric sclerae Neck: normal visual inspection Respiratory: Auscultation: lungs clear to auscultation bilaterally Cardiovascular: Rate/Rhythm: regular rate and regular rhythm Extremities: no edema Skin: no rashes Neurologic: no focal motor deficits Psychiatric: Orientation: alert and oriented x 3 Results & Data ([facility]) Vital Signs (Past 12 Hours) Vital Signs Temp Pulse Resp BP Pulse Ox 02/11/22 08:09 36.6 C 72 16 127/80 96 PG Care Time/CCT Total # of Minutes Spent Total Time Spent with Patient: Total time spent is greater than 50% in coordination of care (as documented) at patient's floor/unit and/or counseling patient: Coding Level of Care Code 37026 Subseq Hosp Care Lvl 3 Diagnoses ESRD (end stage renal disease) N18.6 Anemia N18.5; D63.1 Anemia type: due to chronic kidney disease Chronic kidney disease stage: stage 5, not on chronic dialysis Anemia due to chronic kidney disease N18.9; D63.1 Osteomyelitis of sacrum M46.28 (1) Anemia Anemia type: due to chronic kidney disease Chronic kidney disease stage: stage 5, not on chronic dialysis Qualified Code(s): N18.5 - Chronic kidney disease, stage 5; D63.1 - Anemia in chronic kidney disease
--- NOTE | 2022-02-11 12:01 | Hospitalist Progress Note ---
Date of Service February 11, 2022 Assessment & Plan (1) Osteomyelitis of sacrum: Plan: Chronic with osteomyelitis history, with exposed bone Now s/p wound debridement and bone biopsy Patient initially on Daptomycin and Meropenem, however, currently on hold at the advice of ID pending availability of biopsy result CRP mildly elevated at 5 Patient is afebrile, WBC wnl Deep surgical cultures negative so far even today 11 February (2) CKD (chronic kidney disease) stage 5, GFR less than 15 ml/min: Plan: Vein mapping has been done for outpatient AV fistula creation [facility] [place] [place] [facility] (3) Abdominal pain: Plan: Now resolved Edematous gallbladder seen on CT However, HIDA scan was essentially normal, no filling defect, no suggestion of acute cholecystitis (4) Atrial fibrillation: Plan: Chronic- is on renal dose eliquis - will hold until surgical plan pending further surgical plans if any (noted AV fistula plan) In theory, can take full dose (does not satisfy 2 out of 3 criteria for lower dose) but if he was on low-dose can defer to treating provider (5) Hypertension: Plan: Acceptable, no change; noted minoxidil blood volume status appears good (6) Sacral decubitus ulcer, stage IV: Plan: Stage IV to bone - Present on admission - s/p debridement patient goes for wound care 2 times a week at [facility]; Currently has wound VACwound care following (7) Sleep apnea: Plan: Continue CPAP (8) Abdominal aortic aneurysm: Plan: infrarenal aortic aneurysm is seen measuring up to 31 mm in diameter, 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 with noted disection following stable at this time previously measured in 2020 3.3 Continue BP control and statin; vascular surgery follow-up (9) Inability to walk: Plan: He endorses that he has been wheel chair bound since June - Has previous stenosis with surgical repair - MRI in 06/17- with progressive L5-S1 stenosis with encroachment on L5 nerve root -However, unable to go for surgery until his sacral wound heals (10) Anemia: Plan: Consistent with ESRD and inflammatoryfollow, HARJINDER per nephrology Plan await HD set up Admission and Anticipated Discharge Date Admission Date: February 05, 2022 Subjective Follow-up of presentation with abdominal pain, sacral woundno new issues Physical Exam Physical Exam: Constitutional and general: No acute distress, looks biologic age Head and face: No puffiness, atraumatic Eyes: No scleral icterus, extraocular movements normal Neck: Supple, no JVD Musculoskeletal: No acute joint swelling, no bony abnormalities Skin/dermatologic/integument: No rash, no purpura Hematologic and lymphatic: pallor +, no petechia Gastrointestinal/abdomen: Nondistended, soft, nonacute Neurologic: Cranial nerves intact, nonfocal Psychiatry: Awake, alert, pleasant, communicative Cardiovascular: Heart rhythm regular, no rub, no murmur, no gallop Respiratory: Chest movements equal, no use of accessory muscles, no adventitious sounds Extremities: No edema, no cyanosis Results & Data Results & Data ([facility]) Vital Signs (Past 12 Hours) Vital Signs Temp Pulse Resp BP Pulse Ox 02/11/22 08:09 36.6 C 72 16 127/80 96 PG Care Time/CCT Total # of Minutes Spent Total Time Spent with Patient: Total time spent is greater than 50% in coordination of care (as documented) at patient's floor/unit and/or counseling patient: Coding Level of Care Code 17104 Subseq Hosp Care Lvl 2 Diagnoses Osteomyelitis of sacrum M46.28 CKD (chronic kidney disease) stage 5, GFR less than 15 ml/min N18.5 Abdominal pain R10.9 Atrial fibrillation I48.2 Atrial fibrillation type: permanent Hypertension I10 Hypertension type: essential hypertension Sacral decubitus ulcer, stage IV L89.154 Sleep apnea G47.30 Abdominal aortic aneurysm I71.4 Presence of rupture: without rupture Inability to walk R26.2 Anemia N18.5; D63.1 Anemia type: due to chronic kidney disease Chronic kidney disease stage: stage 5, not on chronic dialysis (1) Atrial fibrillation Atrial fibrillation type: permanent Qualified Code(s): I48.2 - Chronic atrial fibrillation (2) Hypertension Hypertension type: essential hypertension Qualified Code(s): I10 - Essential (primary) hypertension (3) Abdominal aortic aneurysm Presence of rupture: without rupture Qualified Code(s): I71.4 - Abdominal aortic aneurysm, without rupture (4) Anemia Anemia type: due to chronic kidney disease Chronic kidney disease stage: stage 5, not on chronic dialysis Qualified Code(s): N18.5 - Chronic kidney disease, stage 5; D63.1 - Anemia in chronic kidney disease
[2022-02-11] MEDS: NORTRIPTYLINE HCL 25 MG CAP PO SCH (21:19)
[2022-02-12] MEDS: METOPROLOL SUCC 25MG EXT REL TAB PO SCH (08:26)
[2022-02-12] MEDS: GABAPENTIN 100 MG CAP PO SCH (08:26)
[2022-02-12] MEDS: HEPARIN SOD 5,000 UNIT/0.5 ML VIAL SQ SCH (08:26)
[2022-02-12] MEDS: CEROVITE ADV FORMULA TAB PO SCH (08:27)
[2022-02-12] MEDS: minoxidiL 2.5 MG TAB PO SCH (08:27)
[2022-02-12] MEDS: NEPHROCAPS PO SCH (08:27)
[2022-02-12] MEDS: FERROUS SULFATE 325 MG TAB PO SCH (08:27)
--- NOTE | 2022-02-12 09:50 | Nephrology Progress Note ---
Date of Service February 12, 2022 Assessment & Plan (1) ESRD (end stage renal disease): (2) Anemia: (3) Anemia due to chronic kidney disease: (4) Osteomyelitis of sacrum: Plan ESRD, started on hemodialysis on 02/08/2022 via right IJ tunneled dialysis catheter. Had 1st dialysis is not treatment for 2 hours yesterday, tolerated well, no issues. Currently getting 2nd dialysis treatment for 3 hours. Admitted with chronic sacral decubitus ulcer and osteomyelitis, had debridement. received daptomycin and meropenem, now off of antibiotic as per ID recommendation. Deep culture from sacral debridement was negative, bone biopsy report from 02/07/2022 showed no evidence of osteomyelitis or osteonecrosis. Blood pressure acceptable, volume status acceptable. -- Has chair time for outpatient dialysis at [facility] on Friday, , Friday at 10:00 a.m. -- Epogen 47928 units x 1 dose with HD tomorrow -- phosphate <5, no need for phosphate binder at this time -- discontinue oral iron, patient will be on IV iron protocol at dialysis unit -- left arm nephrology precaution for future vascular access, dose meds for eGFR less than 10 Will follow Admission and Anticipated Discharge Date Admission Date: February 05, 2022 Subjective Sylvester was seen and examined this morning. Had dialysis treatment for 4 hours yesterday. Had bleeding from catheter site, now stopped. Blood pressure has been well controlled. Overall feeling well, denies any concerns. Appetite decent. Review of Systems Review of Systems: Detail ROS was otherwise unremarkable. Physical Exam Constitutional: WD/WN, vitals as above no acute distress Eyes: + anicteric sclerae Neck: normal visual inspection Respiratory: Auscultation: lungs clear to auscultation bilaterally Cardiovascular: Rate/Rhythm: regular rate and regular rhythm Extremities: no edema Skin: no rashes Neurologic: no focal motor deficits Psychiatric: Orientation: alert and oriented x 3 Results & Data ([facility]) Vital Signs (Past 12 Hours) Vital Signs Temp Pulse Resp BP Pulse Ox O2 Del Method 02/12/22 08:18 36.5 C 81 16 120/72 96 02/11/22 22:20 37.0 C 77 16 128/76 98 Room Air PG Care Time/CCT Total # of Minutes Spent Total Time Spent with Patient: Total time spent is greater than 50% in coordination of care (as documented) at patient's floor/unit and/or counseling patient: Coding Level of Care Code 80940 Subseq Hosp Care Lvl 3 Diagnoses ESRD (end stage renal disease) N18.6 Anemia N18.5; D63.1 Anemia type: due to chronic kidney disease Chronic kidney disease stage: stage 5, not on chronic dialysis Anemia due to chronic kidney disease N18.9; D63.1 Osteomyelitis of sacrum M46.28 (1) Anemia Anemia type: due to chronic kidney disease Chronic kidney disease stage: stage 5, not on chronic dialysis Qualified Code(s): N18.5 - Chronic kidney disease, stage 5; D63.1 - Anemia in chronic kidney disease
--- NOTE | 2022-02-12 11:21 | Discharge Summary ---
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 Patient comes to the EMD today for complaints of abdomen pain. The patient states that it started in his right lower quad last evening and continued to this morning. He has some associated nausea without vomiting. Also notes that he is retaining fluid and feels "full". Patient has multiple complex issues to include deep sacral wound that he follows with wound care for and currently is getting sharp debrided as well as chemical debridement at times. He has wound-vac in place. He also follows with Nephrology for CKD with worsening renal function. He was to have vein mapping performed on with future plans to proceed with access creation by Dr. Marroquin. He still makes urine and urinated 3-5 times per day. He is responsive to diuretics. For his wound on his sacrum, he has wound, he had osteo in sep 18, Infectious Disease was following in Aug and recommended therapy until his inflammatory/biomarkers down-trended. He has culture from January that is enterococcus sensitive to PCNs previous wound culture in December was positive for pseudomonas sensitive to Tobramycin and Meropenem. The culture in December was reported to have some presumed bone particle but was lost on its way to pathology. He endorses as well that he is likely not going to proceed with his surgical debridement with Dr. Del Toro in February with likely on coming dialysis. He is wheel chair bound since June secondary to left back and hip pain, where he reports he has a cyst but is unable to get surgery on that until he gets his sacral wound taken care of. In the EMD the patient had CT scan of his abdomen/pelvis done with gallbladder edema. General Surgery was consulted. Follow up abdominal ultrasound revealed thickened gallbladder with possible acalculous cholecystitis. HIDA scan is ordered by surgery and pending at this time. Hospitalist service was consulted for admission. He was started on Meropenem and Daptomycin for his sacral wound ulceration and sacral erosion. Surgery will be consulted for both GBD as well as Sacral wound. Will hope to possibly coordinate a bone biopsy with wound care during Vac change. Will consult ID. Nephrology will be consulted to follow his renal function and manage diuretics and volume status. He has already received 60mg of Lasix in EMD with adequate response at this time. His electrolytes are stable and as above continues to be able to make urine. Continue with diuretic therapy for volume management. COVID test on admission is: NEGATIVE Principal Diagnosis Chronic sacrococcygeal osteomyelitis Discharge Exam Constitutional and general: No acute distress, looks biologic age Head and face: No puffiness, atraumatic Eyes: No scleral icterus, extraocular movements normal Neck: Supple, no JVD Musculoskeletal: No acute joint swelling, no bony abnormalities Skin/dermatologic/integument: No rash, no purpura Hematologic and lymphatic: pallor +, no petechia Gastrointestinal/abdomen: Nondistended, soft, nonacute Neurologic: Cranial nerves intact, nonfocal Psychiatry: Awake, alert, pleasant, communicative Cardiovascular: Heart rhythm irregular, no rub, no murmur, no gallop Respiratory: Chest movements equal, no use of accessory muscles, no adventitious sounds Extremities: No edema, no cyanosis Vital Signs Temp Pulse Pulse Pulse Resp BP BP 02/12/22 08:18 36.5 C 81 16 120/72 02/11/22 22:20 37.0 C 77 16 128/76 02/11/22 15:50 36.5 C 60 125/86 02/11/22 15:30 73 128/80 02/11/22 15:00 96 H 119/76 02/11/22 14:30 77 123/71 02/11/22 14:00 86 120/80 02/11/22 13:30 69 119/72 02/11/22 13:00 72 120/82 02/11/22 12:30 68 123/85 02/11/22 12:00 59 L 118/80 02/11/22 11:41 36.5 C 57 L 02/11/22 11:50 Pulse Ox O2 Del Method 02/12/22 08:18 96 02/11/22 22:20 98 Room Air 02/11/22 15:50 02/11/22 15:30 02/11/22 15:00 02/11/22 14:30 02/11/22 14:00 02/11/22 13:30 02/11/22 13:00 02/11/22 12:30 02/11/22 12:00 02/11/22 11:41 02/11/22 11:50 Room Air, CPAP Intake and Output 02/11/22 02/12/22 02/12/22 22:59 06:59 14:59 Output Total 800 / 800 Balance -800 / -800 Output: Urine Amount (Catheter) 800 / 800 Straight 800 / 800 Other: Hemodialysis Ultrafiltration 2,000 Amount Weight 104.9 kg Discharge Data Allergies Allergy/AdvReac Type Severity Reaction Status Date / Time tetracycline Allergy Intermediate HIVES Verified 02/05/22 11:58 morphine AdvReac Intermediate Nausea Verified 02/05/22 11:58 Consultations 02/05/22 12:01 Consult General Surgery Routine 02/05/22 12:40 ED Decision to Admit Stat 02/05/22 12:41 Consult Nephrology Routine 02/05/22 14:38 Consult Nephrology Routine 02/05/22 16:05 Consult Infectious Diseases Routine 02/07/22 09:50 Consult Vascular Surgery Routine Procedures Performed Operation Date: 02/07/22 10:25 Actual Procedures p Sacral Wound Debridment, Sacral bone biopsy(Not Applicable) - Jose Le, Operation Date: 02/08/22 10:20 Actual Procedures p Insertion of Perm Catheter, Right Internal Jugular Approach, Ultrasound Localization of Right Internal Jugular, Fluroscopy for Positioning, Moderate Sedation [id number](Right) - Demetri Marroquin MD Ordered Studies 02/05/22 09:09 CT abd pelvis wo con Stat 02/05/22 10:09 US gallbladder Stat 02/06/22 15:33 US arm [US venous mapping UE BI] Routine 02/08/22 07:27 EV cvc insrt tunnel wo prt/dredge deckhand Routine US EV guide vascular access Routine Hospital Course (1) Osteomyelitis of sacrum: Overall picture consistent with chronic osteomyelitis; underwent debridement and bone biopsy cultures negative, Seen by infectious disease and antibiotic stopped Should continue wound VAC, home health and maintain follow-up with his wound care team (2) ESRD (end stage renal disease) on dialysis: Dialysis initiated via PermCath; vascular surgery follow-up for fistula creation; outpatient set up (3) Abdominal pain: Now resolved Edematous gallbladder seen on CT However, HIDA scan was essentially normal, no filling defect, no suggestion of acute cholecystitis Today no symptoms in this regard and wants discharge (4) Atrial fibrillation: Chronic- is on lower dose of Eliquis per his marketing officer; I did not change; in theory, can take full dose since does not satisfy 2 out of 3 criteria for lower dose but I did not change as noted (5) Hypertension: Acceptable, no change; noted on minoxidil but blood volume status appears gooddefer to nephrology to avoid multiplicity (6) Sacral decubitus ulcer, 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 with noted disection following stable at this time previously measured in 2020 3.3 Continue BP control and statin; vascular surgery follow-up (9) Inability to walk: He endorses that he has been wheel chair bound since June - Has previous stenosis with surgical repair - MRI in 06/17- with progressive L5-S1 stenosis with encroachment on L5 nerve root -However, unable to go for surgery until his sacral wound heals (10) Anemia: Consistent with ESRD and inflammatoryfollow, HARJINDER per nephrology Total Time Total Time Spent Total Time Spent (In Minutes): 40 Discharge Plan Discharge Items Patient Disposition: Home - Home Health Services Reason For Visit: ABD PAIN,GALLBLADDER DISEASE R/O [place],SACRAL Discharge Diagnosis: Chronic sacrococcygeal osteomyelitis Activity: Resume your previous activity Non-emergency contact: Primary Care Provider Call non-emergency contact if: your symptoms worsen Follow-up/Referrals: Jasiel Pineda DO [Primary Care Provider] - Demetri Marroquin MD [Physician] - (AV fistula creation and follow-up of AAA and iliac artery aneurysm) Diet: Dialysis Renal and Heart Healthy Addtl Attending Provider Instructions: Keep appointment with your wound care team and all other healthcare appointments including cardiology Go for dialysis as scheduled Pending Studies at Discharge: No Stand-Alone Forms: My Sweeten, Smoking Cessation Medications and DC Order Prescriptions: New Renal Caps 1 mg Capsule 1 cap PO QAM Qty: 30 0RF Continued nortriptyline 25 mg capsule 25 mg PO HS Qty: 30 2RF azelastine 0.15 % (205.5 mcg) spray,non-aerosol 1 spray INTNAS HS PRN (Reason: seasonal allergies) Qty: 30 2RF Rx Instructions: administer into each nostril minoxidil 10 mg tablet 10 mg PO QAM Qty: 90 3RF Rx Instructions: TAKE 1 TABLET DAILY Eliquis 2.5 mg tablet 2.5 mg PO BID Qty: 180 3RF Rx Instructions: PER SPOUSE "JUST GOT SCRIPT FILLED TODAY" (DME) Power Wheelchair Device See Rx Instructions .Route Qty: 1 0RF Rx Instructions: POWER WHEELCHAIR, DX: R53.1, R26.2 atorvastatin [Lipitor] 20 mg tablet 20 mg PO QPM cholecalciferol (vitamin D3) [Vitamin D3] 50 mcg (2,000 unit) Tablet 50 mcg PO QPM acetaminophen [Tylenol Extra Strength] 500 mg Tablet 1,000 mg PO DIRECTED PRN (Reason: Pain) metoprolol succinate 25 mg Tablet Extended Release 24 Hr 25 mg PO QAM Qty: 30 0RF ferrous sulfate 325 mg (65 mg iron) Tablet,Delayed Release (Dr/Ec) 325 mg PO BIDM Qty: 60 0RF Changed gabapentin 300 mg capsule 300 mg PO HS Qty: 60 2RF torsemide 40 mg tablet 80 mg PO DAILY Qty: 120 2RF Discontinued multivitamin with minerals tablet 1 tab PO QAM spironolactone 50 mg tablet 50 mg PO DAILY Qty: 90 2RF amoxicillin 500 mg capsule 500 mg PO BID Qty: 28 2RF sodium bicarbonate 650 mg tablet 650 mg PO BID Qty: 180 3RF Label Comments: waiting for refill from doctor's office methenamine hippurate 1 gram tablet 1 g PO DAILY Qty: 30 0RF Aranesp (in polysorbate) 60 mcg/0.3 mL syringe 60 mcg subcut .every other week Qty: 2 5RF Rx Instructions: Hold for Hgb >11 Discharge Orders: Discharge Order (Routine); Ordered 02/12/22 Ordered By: Awilda Hagan Admission Data Admit Date/Time: 02/05/22 13:07 Attending Provider: Awilda Hagan Admit Provider: Low Caban Primary Care Provider: Jasiel Pineda Other Providers: Carrillo Tony ; [facility],Home Healthcare ; Jose Le ; Low Caban ; Demetri Marroquin ; Jesus Juarez ; Jamin Young ; Jose Melton I. ; Chas Moss II ; Sia Souza ; Abram Gonzalez ; Mikey Mark ; Maria De Jesus Alford Coding Level of Care Code D/C DAY MANAGEMENT >30 MINS Diagnoses Osteomyelitis of sacrum M46.28 ESRD (end stage renal disease) on dialysis N18.6; Z99.2 Abdominal pain R10.9 Atrial fibrillation I48.2 Atrial fibrillation type: permanent Hypertension I10 Hypertension type: essential hypertension Sacral decubitus ulcer, stage IV L89.154 Sleep apnea G47.30 Abdominal aortic aneurysm I71.4 Presence of rupture: without rupture Inability to walk R26.2 Anemia N18.5; D63.1 Anemia type: due to chronic kidney disease Chronic kidney disease stage: stage 5, not on chronic dialysis
--- NOTE | 2022-02-14 13:53 | Coding Query ---
CODING QUERY To promote full compliance with coding requirements relating to patient care, provider participation is requested in all cases of medical record coder uncertainty. Please assist us with the question(s) below: Coding Question(s): Please specify below, in your clinical opinion, the diagnosis that was present on admission and was most responsible for occasioning the Inpatient admission. ( x) Chronic sacrococcygeal osteomyelitis, with the bone biopsy culture and deep culture from sacral debridement negative, there is still possible chronic sacrococcygeal osteomyelitis. ( x) Sacral decubitus ulcer, stage IV ( ) Acute Kidney Injury-not present ( ) Abdominal Pain caused by edematous gallbladdernot confirmed ( ) Other: Please Specify Physician's Response(s): Thank you Mercedes Cormier Principal Diagnosis: "that condition established after study, to be chiefly responsible for occasioning the admission of the patient to the hospital for care." Co-Existing Principal Diagnosis: "when two or more diagnoses equally meet the criteria for principal diagnosis as determined by the circumstances of admission, diagnostic work up, and/or therapy provided, and the Alphabetic Index, Tabular List, or another coding guideline does not provide sequencing direction, any one of the diagnoses may be sequenced first." "When the physician has documented what appears to be a current diagnosis in the body of the record, but has not included the diagnosis in the final diagnostic statement, the physician should be asked whether the diagnosis should be added." (Source Coding Clinic 2 QTR90. p3-4) DEBRA
== END 2022-02-12 17:59 | disposition home health service (06) | DRG 579 ==
LOC: ED 08:55 → 3N 13:07 → SUATTDRO 13:07 → 3N 14:17

== ENCOUNTER 2022-09-20 09:30 | Inpatient (IN) ==
[2022-09-20] MEDS ORDERED: CEFEPIME 2,000 MG/20 ML VIAL IV STA (09:45)
[2022-09-20] MEDS ORDERED: ACETAMINOPHEN 1,000 MG/100 ML VIAL IV STA (09:45)
[2022-09-20] MEDS ORDERED: ONDANSETRON INJ 2 MG/ML 2 ML VIAL IV STA (09:45)
[2022-09-20] MEDS ORDERED: SODIUM CHLORIDE 0.9% 1000ML 1,000 ML IV SCH (09:45)
--- NOTE | 2022-09-20 09:52 | Emergency Department Note ---
Impression & Plan Sepsis, Hypotension, Pneumonia, Sacral decubitus ulcer, Dialysis patient ED Provider Note NAME: JENNIFER STAPLETON AGE: 77 SEX: M : 1945 ARRIVES VIA: Ambulance INFORMANT: [Patient][nursing] ED PROVIDER(S): [Kasi Mcrae MD] CHIEF COMPLAINT: Respiratory problem HISTORY OF PRESENT ILLNESS: The patient is a 77-year-old male who has been seeing the wound center for a stage IV sacral ulcer. According to the patient, his visit yesterday at the wound center showed stability of the ulcer. There is a wound VAC in place. The patient states that last night, he developed a cough and fever. This morning, he was quite sweaty and too weak to even pull himself in bed. He typically gets around with a wheelchair but is usually able to get himself in and out of the chair on his own. The patient denies abdominal pain. No vomiting or diarrhea. He does wear a chronic Perry catheter. Patient states that he can stand on his own but cannot take any steps forward. No recent sick contacts. Of note, the patient does require dialysis, Friday and Friday. He did not attend dialysis today. PMHx/PSHx: See Below SOCIAL HISTORY: See Below. PHYSICAL EXAM: GENERAL: Patient is in no acute distress. HEENT: No acute trauma, normocephalic atraumatic, mucous membranes dry. No nasal congestion NECK: No stridor, no adenopathy, no meningismus, trachea is midline. LUNGS: Crackles heard on the left, the right lung seems clear. No respiratory distress. Moist cough noted. HEART: Irregular rhythm, 3/6 systolic murmur, normal rate. ABDOMEN: Soft, nontender, bowel sounds positive, no peritonitis. EXTREMITIES: No cyanosis. The patient does have some chronic lower extremity skin changes. No warmth or evidence for an active cellulitis. NEUROLOGIC: Oriented x 3, no acute motor or sensory deficits, no focal weakness. SKIN: No rash, no jaundice, no diaphoresis. Groin: He is circumcised. There is a Perry catheter in place. No scrotal erythema. DIFFERENTIAL DIAGNOSIS: Sepsis, UTI, osteomyelitis, pyelonephritis, pneumonia, electrolyte abnormality, cellulitis, bacteremia, COVID-19, influenza, RSV, as well as other pathologies. EMERGENCY DEPARTMENT COURSE/PROCEDURES: Prior/Outside records reviewed: Recent wound visit note. ECG per my interpretation: Indication was potential sepsis. The ECG shows a trial fibrillation with a rate of 84. There is some nonspecific ST change. There is no ST elevation, no PVCs. The QTc is 453. Continuous Cardiac Monitoring per my interpretation: An order was placed for continuous cardiac monitoring. The monitor shows a rate of 77 with atrial fibrillation. Critical Care Note: I have personally spent 53 minutes of critical care time in the direct management of this patient. This includes bedside care, interpr etation of diagnostic studies, and testing, discussion with consultants, patient, and family members, and other required patient management activities. This 53 minutes is in excess of all separately billable procedures. MEDICAL DECISION MAKING: Of note, the patient only received 1 L of IV saline as he does regularly receive dialysis and there was concern for significant fluid overload if given 30 cc/kg of hydration. There is a mild leukocytosis, this is consistent with infection. The patient was anemic but this appears baseline with looking back at previous testing. There was a normal platelet count. INR was slightly high at 1.2. This is likely from his Eliquis use. Potassium was mildly elevated at 5.6. There was a high creatinine consistent with his dialysis need. Lactic acid level was not elevated making severe sepsis less likely. No concerning liver enzyme elevation. Procalcitonin level was elevated consistent with bacterial infection. ECG showed atrial fibrillation which was rate controlled, no obvious ischemia. Cardiac enzyme testing x1 was slightly elevated. The patient has a history of a mildly elevated troponin value. COVID, influenza and RSV test were negative. Chest film per my review shows a left-sided pneumonia. Abdominal and pelvis CT shows improvement in in the sacral decubitus ulcer. Chronic osteomyelitis was seen. On exam, the patient appeared somewhat dehydrated. He was mildly hypotensive. He was not tachycardic. The patient was presumed septic. The source appears to be his left-sided pneumonia. The patient was aggressively managed. He was given 1 L of IV saline. He received IV cefepime as antibiotic coverage. He received IV Tylenol. The patient does tend to run a lower blood pressure. His pressure is below his typical baseline though today, likely from his infection. I do think the patient requires a hospital stay. He is certainly in no condition for discharge home. I did speak with the patient and his family, I spoke with case management, the on-call hospitalist was consulted. DISPOSITION: Patient's presentation and findings warrant a hospital stay and further care/work-up. Past Med/Surg History Medical History Abdominal aortic aneurysm (~2014) S/p Type A dissection with emergent repair in 2014 Later found to have AAA 3.5cm- followed by vascular surgery with medical management Anemia due to chronic kidney disease Anxiety Atrial fibrillation [place] [facility] [place]. Jarvis) On Eliquis AV fistula LEFT ESRD (end stage renal disease) on dialysis [facility] [place] in [place] Mon-Fri-Fri History of blood transfusion 12/19/21 per pt History of CHF (congestive heart failure) Hyperlipidemia Hypertension Lumbar spinal stenosis Neurogenic bladder Self Catheterization since Aortic repair 4-5X PER DAY Neuropathic pain Permanent central venous catheter in place perm cath in place on right side used for dialayis--last changed 03/02/[address] Marroquin Pseudomonas infection PTSD (post-traumatic stress disorder) POST AORTIC DISSECTION Sacral decubitus ulcer, stage IV "stable to improved" per [place] wound clinic>WOUND VAC INTACT/WOUND CLINIC WEEKLY AND [facility] NURSING 2X PER WEEK. 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 Shrestha at [facility] [place]WC BOUND FOR 3 YEARS D/T CYSTS Surgical History History of arthroplasty of left hip History of arthroscopy RT KNEE History of bladder surgery History of cardiac catheterization 2004 - no stents - [facility] in [place] History of cardioversion mult>FOLLOWS WITH DR. 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 History of revision of total hip arthroplasty History of rhinoplasty History of tooth extraction History of total knee replacement RT History of transurethral resection of prostate Nausea and vomiting after administration of anesthetic agent S/P debridement (06/27/21) Excisional Debridement Sacral Decubitus Ulcer down to muscle level 4cm x 6cm - Ranjeet Myers DO 06/27/2021 Excisional Debridement of Sacral Decubitus Ulcer Down to Bone, 11cm x 10cm(Not Applicable) - Ranjeet Myers DO 07/25/2021: MAC 3, ETT 7.5. S/P debridement (02/08/22) Sacral Wound Debridment, Sacral bone biopsy(Not Applicable) - Jose Le DO S/P total right hip arthroplasty Family History Grandmother Family history of diabetes mellitus Mother Gallbladder disease Father Prostate cancer Myocardial infarction Hypertension Other Family history non-contributory No family history of adverse response to anesthesia Denies family history of Ovarian cancer Breast cancer Colorectal cancer Social History Smoking Status: Never smoker Second Hand Exposure: Yes (IN THE PAST); Hx Alcohol Use: No Hx Substance Use: No Preferred Language: Mongolian Communication Ability: Effective Visual Impairment: Limited Hearing Ability: Normal Senior Litigation Paralegal Required: No Beliefs That Will Affect Care: None marital status: Current Living Situation: Spouse Current Living Situation Comment: Lives with at home current occupational status: retired How many Children do You have: 1 Other Information That Helps Us Care for You: No Feels Safe at Home: Yes Safety Concerns: Feels Safe At This Time Childhood Exposure to Second-Hand Smoke: Yes (father did ) Diet Comment: low sugar, low phospate caffeine: Yes (tea x 3 daily) during the past year weight has: remained stable Dental Care, Regularly: Yes Physical Activity Frequency: Does not Exercise Physical Activity Frequency Comment: goes to PT twice a week Seatbelt Use: always Sunscreen Use: Yes Do you think of yourself as: straight/heterosexual Gender Identity: Male Assistive Devices: CPAP, Glasses and Wheelchair Allergies Allergies Allergy/AdvReac Type Severity Reaction Status Date / Time tetracycline Allergy Intermediate HIVES Verified 09/20/22 11:02 morphine AdvReac Intermediate Nausea Verified 09/20/22 11:02 Home Meds Home Medications Medication Instructions Recorded Confirmed cholecalciferol (vitamin D3) 50 50 mcg PO QPM 12/31/19 09/20/22 mcg (2,000 unit) tablet (Vitamin D3) acetaminophen 500 mg tablet 1,000 mg PO DIRECTED PRN Pain 07/13/21 09/20/22 (Tylenol Extra Strength) metronidazole 1 % topical gel 1 applic topical DAILY PRN Fungal 09/10/22 09/20/22 (Metrogel) alprazolam 0.25 mg tablet 0.25 mg PO HS PRN Anxiety 09/20/22 09/20/22 sevelamer carbonate 800 mg tablet 800 - 1,600 mg PO TID 09/20/22 09/20/22 spironolactone 50 mg tablet 50 mg PO QAM 09/20/22 09/20/22 Previous Rx's Medication Instructions Recorded azelastine 205.5 mcg (0.15 %) 1 spray intranasal HS PRN seasonal 09/04/20 nasal spray allergies #30 mL Wheelchair (Powered) (Power #1 ea 01/04/22 Wheelchair) vitamin B complex and vitamin C 1 cap PO QAM #30 caps 02/12/22 no.20-folic acid 1 mg capsule (Renal Caps) oxycodone-acetaminophen 5 mg-325 1 tab PO Q6H PRN pain #30 tabs 08/15/22 mg tablet (Percocet) apixaban 2.5 mg tablet (Eliquis) 2.5 mg PO BID #180 tabs 09/10/22 atorvastatin 20 mg tablet (Lipitor) 20 mg PO QPM #90 tabs 09/10/22 gabapentin 300 mg capsule 300 mg PO HS #90 caps 09/10/22 metoprolol succinate 25 mg 25 mg PO QAM #90 tabs 09/10/22 tablet,extended release 24 hr minoxidil 10 mg tablet 10 mg PO QAM #90 tabs 09/10/22 nortriptyline 25 mg capsule 25 mg PO HS #90 caps 09/10/22 (Pamelor) Results & Data (ED) Vital Signs Vital Signs - 24 hr 09/20/22 09:45 09/20/22 09:52 09/20/22 10:26 Temperature 37.1 C Temperature Source Oral Pulse Rate 76 76 87 Pulse Rate [Right] Pulse Rate from SpO2 Sensor Respiratory Rate 16 Respiratory Effort / Characteristics Non-Labored Respiratory Depth Normal Blood Pressure 90/61 L Blood Pressure [Left Arm] Blood Pressure Mean 70 Blood Pressure Mean [Left Arm] Pulse Oximetry 96 96 Oxygen Delivery Method Room Air Room Air Sepsis Recent Fever Within 48 Hours No Sepsis New/Unexplained Change in Mental Status N/A Sepsis Action Taken by Nursing No Action Required 09/20/22 10:30 09/20/22 10:40 09/20/22 10:43 Temperature Temperature Source Pulse Rate Pulse Rate [Right] 92 H 78 Pulse Rate from SpO2 Sensor Respiratory Rate 16 16 Respiratory Effort / Characteristics Non-Labored Non-Labored Non-Labored Respiratory Depth Normal Normal Blood Pressure Blood Pressure [Left Arm] 83/57 L Blood Pressure Mean Blood Pressure Mean [Left Arm] 65 Pulse Oximetry 96 95 Oxygen Delivery Method Room Air Room Air Sepsis Recent Fever Within 48 Hours Sepsis New/Unexplained Change in Mental Status Sepsis Action Taken by Nursing 09/20/22 09:42 09/20/22 09:45 09/20/22 10:00 Temperature Temperature Source Pulse Rate 86 82 Pulse Rate [Right] Pulse Rate from SpO2 Sensor 93 H Respiratory Rate 17 18 Respiratory Effort / Characteristics Respiratory Depth Blood Pressure 96/51 L Blood Pressure [Left Arm] Blood Pressure Mean 66 Blood Pressure Mean [Left Arm] Pulse Oximetry 96 Oxygen Delivery Method Room Air Sepsis Recent Fever Within 48 Hours Sepsis New/Unexplained Change in Mental Status Sepsis Action Taken by Nursing 09/20/22 10:00 09/20/22 10:15 09/20/22 10:30 Temperature Temperature Source Pulse Rate 90 88 94 H Pulse Rate [Right] Pulse Rate from SpO2 Sensor 90 90 91 H Respiratory Rate 16 21 16 Respiratory Effort / Characteristics Respiratory Depth Blood Pressure Blood Pressure [Left Arm] Blood Pressure Mean Blood Pressure Mean [Left Arm] Pulse Oximetry 96 96 96 Oxygen Delivery Method Room Air Room Air Room Air Sepsis Recent Fever Within 48 Hours Sepsis New/Unexplained Change in Mental Status Sepsis Action Taken by Nursing 09/20/22 10:38 09/20/22 10:38 09/20/22 10:45 Temperature Temperature Source Pulse Rate 91 H 74 Pulse Rate [Right] Pulse Rate from SpO2 Sensor 93 H 81 Respiratory Rate 17 23 Respiratory Effort / Characteristics Respiratory Depth Blood Pressure 83/57 L Blood Pressure [Left Arm] Blood Pressure Mean 65 Blood Pressure Mean [Left Arm] Pulse Oximetry 97 92 Oxygen Delivery Method Room Air Room Air Sepsis Recent Fever Within 48 Hours Sepsis New/Unexplained Change in Mental Status Sepsis Action Taken by Nursing 09/20/22 11:00 09/20/22 11:06 09/20/22 11:06 Temperature Temperature Source Pulse Rate 86 81 Pulse Rate [Right] Pulse Rate from SpO2 Sensor 84 83 Respiratory Rate 18 14 Respiratory Effort / Characteristics Respiratory Depth Blood Pressure 77/53 L Blood Pressure [Left Arm] Blood Pressure Mean 61 Blood Pressure Mean [Left Arm] Pulse Oximetry 96 96 Oxygen Delivery Method Room Air Room Air Sepsis Recent Fever Within 48 Hours Sepsis New/Unexplained Change in Mental Status Sepsis Action Taken by Nursing 09/20/22 11:10 09/20/22 11:10 09/20/22 11:22 Temperature Temperature Source Pulse Rate 77 Pulse Rate [Right] Pulse Rate from SpO2 Sensor 80 82 Respiratory Rate 16 12 Respiratory Effort / Characteristics Respiratory Depth Blood Pressure 89/50 L Blood Pressure [Left Arm] Blood Pressure Mean 63 Blood Pressure Mean [Left Arm] Pulse Oximetry 96 96 Oxygen Delivery Method Room Air Sepsis Recent Fever Within 48 Hours Sepsis New/Unexplained Change in Mental Status Sepsis Action Taken by Nursing 09/20/22 11:23 09/20/22 11:23 09/20/22 11:30 Temperature Temperature Source Pulse Rate 78 Pulse Rate [Right] Pulse Rate from SpO2 Sensor 81 78 Respiratory Rate 24 18 Respiratory Effort / Characteristics Respiratory Depth Blood Pressure 86/56 L Blood Pressure [Left Arm] Blood Pressure Mean 66 Blood Pressure Mean [Left Arm] Pulse Oximetry 95 96 Oxygen Delivery Method Sepsis Recent Fever Within 48 Hours Sepsis New/Unexplained Change in Mental Status Sepsis Action Taken by Prison Medications Current Medication List: was personally reviewed by me Laboratory Data Attestation: I reviewed the patient's lab results. 09/20/22 10:23 09/20/22 10:23 Lab Results 09/20/22 09/20/22 09/20/22 Range/Units 10:00 10:23 10:23 WBC 12.74 H (4.8-10.8) K/ul RBC 3.55 L (4.70-6.10) M/uL Hgb 10.7 L (14.0-18.0) g/dl Hct 34.5 L (42.0-52.0) % MCV 97.2 (80.0-100.0) fL MCH 30.1 (25.0-34.0) pg MCHC 31.0 L (32.0-36.0) g/dL RDW Std Deviation 57.1 H (36.4-46.3) fL RDW Coeff of Hector 15.9 H (11.5-14.5) % Plt Count 203 (130-400) K/uL MPV 8.8 L (9.4-12.4) fL Immature Gran % (Auto) 0.4 % Neut % (Auto) 89.1 % Lymph % (Auto) 3.4 % [place] % (Auto) 6.4 % Eos % (Auto) 0.3 % Baso % (Auto) 0.4 % Neut # (Auto) 11.35 H (1.40-6.50) K/uL Lymph # (Auto) 0.43 L (1.2-3.4) K/uL [place] # (Auto) 0.82 H (0.11-0.59) K/uL Eos # (Auto) 0.04 (0-0.50) K/uL Baso # (Auto) 0.05 (0-0.2) K/uL Immature Gran # (Auto) 0.05 (0.01-0.20) K/uL PT 12.5 H (9.0-12.0) Seconds INR 1.2 H (0.9-1.1) APTT 40.5 H (21.0-31.0) Seconds PTT Ratio 1.5 Sodium (136-145) mmol/L Potassium (3.5-5.1) mmol/L Chloride (98-107) mmol/L Carbon Dioxide (21-32) mmol/L Anion Gap (3-11) BUN (6-23) mg/dl Creatinine (0.6-1.4) mg/dl Est Cr Clr Drug Dosing ml/min Est GFR ( Amer) ml/min Est GFR (Non-Af Amer) ml/min BUN/Creatinine Ratio (10-20) Glucose (70-99(Fasting)) mg/dl Lactate (0.4-2.0) mmol/L Calcium (8.5-10.1) mg/dl Magnesium (1.7-2.4) mg/dl Total Bilirubin (0.2-1.0) mg/dl Direct Bilirubin (0-0.2) mg/dl AST (13-39) U/L ALT (7-52) U/L Alkaline Phosphatase (34-104) U/L Troponin I High Sens (0-20) pg/ml Total Protein (6.0-8.3) gm/dl Albumin (3.4-5.0) gm/dl Procalcitonin (0-0.5) ng/ml SARS-CoV-2 (PCR) NEGATIVE (Negative) Influenza Type A (PCR) Negative (Neg) Influenza Type B (PCR) Negative (Neg) RSV (RT-PCR) Negative (Neg) 09/20/22 09/20/22 09/20/22 Range/Units 10:23 10:23 10:23 WBC (4.8-10.8) K/ul RBC (4.70-6.10) M/uL Hgb (14.0-18.0) g/dl Hct (42.0-52.0) % MCV (80.0-100.0) fL MCH (25.0-34.0) pg MCHC (32.0-36.0) g/dL RDW Std Deviation (36.4-46.3) fL RDW Coeff of Hector (11.5-14.5) % Plt Count (130-400) K/uL MPV (9.4-12.4) fL Immature Gran % (Auto) % Neut % (Auto) % Lymph % (Auto) % [place] % (Auto) % Eos % (Auto) % Baso % (Auto) % Neut # (Auto) (1.40-6.50) K/uL Lymph # (Auto) (1.2-3.4) K/uL [place] # (Auto) (0.11-0.59) K/uL Eos # (Auto) (0-0.50) K/uL Baso # (Auto) (0-0.2) K/uL Immature Gran # (Auto) (0.01-0.20) K/uL PT (9.0-12.0) Seconds INR (0.9-1.1) APTT (21.0-31.0) Seconds PTT Ratio Sodium 134 L (136-145) mmol/L Potassium 5.6 H (3.5-5.1) mmol/L Chloride 97 L (98-107) mmol/L Carbon Dioxide 28 (21-32) mmol/L Anion Gap 9 (3-11) BUN 67 H (6-23) mg/dl Creatinine 4.56 H* (0.6-1.4) mg/dl Est Cr Clr Drug Dosing 15.1 ml/min Est GFR ( Amer) 13.5 ml/min Est GFR (Non-Af Amer) 11.6 ml/min BUN/Creatinine Ratio 14.7 (10-20) Glucose 96 (70-99(Fasting)) mg/dl Lactate 1.5 (0.4-2.0) mmol/L Calcium 8.9 (8.5-10.1) mg/dl Magnesium 2.3 (1.7-2.4) mg/dl Total Bilirubin 0.6 (0.2-1.0) mg/dl Direct Bilirubin 0.1 (0-0.2) mg/dl AST 14 (13-39) U/L ALT 12 (7-52) U/L Alkaline Phosphatase 97 (34-104) U/L Troponin I High Sens 32.0 H (0-20) pg/ml Total Protein 6.4 (6.0-8.3) gm/dl Albumin 3.7 (3.4-5.0) gm/dl Procalcitonin 3.10 H (0-0.5) ng/ml SARS-CoV-2 (PCR) (Negative) Influenza Type A (PCR) (Neg) Influenza Type B (PCR) (Neg) RSV (RT-PCR) (Neg) Administered Medications Discontinued Medications Cefepime HCl (Maxipime) 2,000 mg in 20 mls @ 5 mls/min IV NOW STA; Protocol Stop: 09/20/22 09:48 Last Admin: 09/20/22 11:40 Dose: 5 mls/min Documented By: [id number] Acetaminophen (Ofirmev) 1,000 mg in 100 mls @ 400 mls/hr IV NOW STA Stop: 09/20/22 09:59 Last Infusion: 09/20/22 11:21 Dose: 0 mls/hr Documented By: [id number] Admin: 09/20/22 10:36 Dose: 400 mls/hr Documented By: MARIA ISABEL Sodium Chloride (Nss 1000ml) 1,000 mls @ 999 mls/hr IV .Q1H1M [place] Stop: 09/20/22 10:45 Last Admin: 09/20/22 13:45 Dose: Not Given Documented By: DU Sodium Chloride (Nss 1000ml) 1,000 mls @ 999 mls/hr IV .Q1H1M ONE Stop: 09/20/22 11:10 Last Infusion: 09/20/22 11:48 Dose: 0 mls/hr Documented By: [id number] Admin: 09/20/22 10:33 Dose: 999 mls/hr Documented By: [email or web address] Sodium Chloride (Nss 1000ml) 500 mls @ 999 mls/hr IV .Q31M ONE Stop: 09/20/22 11:16 Last Admin: 09/20/22 11:48 Dose: Not Given Documented By: [id number] Sodium Chloride (Nss 1000ml) 250 mls @ 999 mls/hr IV .Q16M ONE Stop: 09/20/22 11:01 Last Admin: 09/20/22 11:48 Dose: Not Given Documented By: [id number] Midodrine (Midodrine Hcl 10 Mg Tab) 10 mg PO NOW STA Stop: 09/20/22 13:30 Last Admin: 09/20/22 14:15 Dose: 10 mg Documented By: KAT Ondansetron HCl (Ondansetron Inj 2 Mg/Ml 2 Ml Vial) 4 mg IV NOW STA Stop: 09/20/22 09:46 Last Admin: 09/20/22 10:36 Dose: 4 mg Documented By: SUZANNEB Oxycodone HCl (Oxycodone Hcl Ir 5 Mg Tab (Immediate Release)) 5 mg PO NOW STA Stop: 09/20/22 12:10 Last Admin: 09/20/22 12:31 Dose: 5 mg Documented By: [id number] Imaging Data Radiologist's Impression: Chest X-Ray 09/20/22 09:45 SINGLE VIEW CHEST CLINICAL HISTORY: Sepsis. FINDINGS: 2 AP, portable, upright chest radiographs are compared to study dated 04/19/2022 and correlated with chest CT dated 05/17/2021. The patient is status post midline sternotomy. The heart is enlarged noting atherosclerotic calcification of the thoracic aorta. The pulmonary vasculature is noncongested. Chronic interstitial thickening is similar to previous. There is dense airspace consolidation in the left mid lung. Milder consolidation is seen at the left lung base. The right lung appears clear noting basilar atelectasis. No large pleural effusion or pneumothorax is seen. The skeletal structures are osteopenic. The bony thorax is grossly intact. Surgical clips project over the right axilla. IMPRESSION: 1. Airspace consolidation in the left mid to lower lung is typical for p neumonia. Clinical correlation will be required and radiographic follow-up to resolution is recommended. 2. Cardiomegaly without radiographic evidence of congestive failure. ACT 112: Negative or not required by law. Electronically signed by: Kasi Dai M.D. 09/20/2022 10:16 AM Abdomen/Pelvis CT 09/20/22 10:56 CT abd pelvis wo con CLINICAL HISTORY: sacral ulcer TECHNIQUE: Helical axial images of the abdomen and pelvis were obtained. Automated dose lowering techniques and/or adjustment according to patient size were utilized for this exam. This exam was performed without intravenous contrast. CT DOSE: 531.90 mGy.cm COMPARISON: Comparison is made to CT abdomen pelvis 05/16/2022 FINDINGS: Lower chest: Airspace opacity is seen in the left greater than right lower lobe. Cardiomegaly is seen. Liver: Unremarkable. No focal lesions are seen. Gallbladder and biliary tree: No calcified gallstones. Normal caliber wall. No intra- or extrahepatic biliary ductal dilation. Pancreas: Unremarkable, no focal lesions. Spleen: Unremarkable. Adrenals: Unremarkable. Kidneys and ureters: A few exophytic cysts are seen. Bladder: Focus of gas is noted in the bladder, correlation with recent rotation is recommended. Reproductive organs: Unremarkable. Bowel: Patient is status post Kang-en-Y gastric bypass. Lymph nodes Retroperitoneal: Unremarkable. Pelvic: Unremarkable. Mesenteric: Unremarkable. Peritoneum: Normal. Vessels: Atherosclerotic disease is seen. There is a infrarenal aortic dissection measuring 35 mm in diameter. 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 Abdominal wall: There is a sacral ulcer with gas noted in close proximity to the bone. Overall the soft tissue defect has improved from prior exam. Bones: Sclerosis of the sacrum is seen which may be reactive and there is significant erosion of the lower sacrum and coccyx. 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 Degenerative changes are seen and there is surgical fixation of L3-L5. Focal defect in the right ischial bone may represent prior bone graft donor site. IMPRESSION: 1. Interval improvement in sacral soft tissue ulceration. A residual ulcer versus smaller interval new ulcer is noted and there is bony sclerosis and erosion compatible with previously noted osteomyelitis. If there is concern for active osteomyelitis, MRI may be more sensitive. 2. Aortic dissection is again seen. 3. Pneumonia in the left greater than right lung base. ACT 112: Negative or not required by law. Electronically signed by: Aren Forbes M.D. 09/20/2022 11:37 AM Discharge Plan Visit Data Chief Complaint: Respiratory Problems Stated Complaint: ILLNESS, ED Provider: Kasi Mcrae Discharge Problem: Sepsis, Hypotension, Pneumonia, Sacral decubitus ulcer, Dialysis patient Patient Disposition: Admitted As Inpatient Condition: Fair Discharge Instructions Interventions: ED Discharge Assessment Last Done: 09/20/22 13:23
[2022-09-20] MEDS ORDERED: SODIUM CHLORIDE 0.9% 1000ML 1,000 ML IV ONE (10:10)
--- NOTE | 2022-09-20 10:17 | XRay Report ---
SINGLE VIEW CHEST CLINICAL HISTORY: Sepsis. FINDINGS: 2 AP, portable, upright chest radiographs are compared to study dated 04/19/2022 and correla [place] with chest CT dated 05/17/2021. The patient is status post midline sternotomy. The heart is enlar ged noting atherosclerotic calcification of the thoracic aorta. The pulmonary vasculature is nonconge sted. Chronic interstitial thickening is similar to previous. There is dense airspace consolidation i n the left mid lung. Milder consolidation is seen at the left lung base. The right lung appears clear noting basilar atelectasis. No large pleural effusion or pneumothorax is seen. The skeletal structur es are osteopenic. The bony thorax is grossly intact. Surgical clips project over the right axilla. IMPRESSION: 1. Airspace consolidation in the left mid to lower lung is typical for pneumonia. Clinical correlatio n will be required and radiographic follow-up to resolution is recommended. 2. Cardiomegaly without radiographic evidence of congestive failure. ACT 112: Negative or not required by law. Electronically signed by: Kasi Dai M.D. 09/20/2022 10:16 AM
[2022-09-20] MEDS ORDERED: SODIUM CHLORIDE 0.9% 1000ML 500 ML IV ONE (10:46)
[2022-09-20] MEDS ORDERED: SODIUM CHLORIDE 0.9% 1000ML 250 ML IV ONE (10:46)
[2022-09-20 10:51] LABS: Influenza A virus by PCR Negative (Neg); Influenza B virus by PCR Negative (Neg); RSV by PCR Negative (Neg); SARS CoV2 RNA(COVID-19) Ceph NEGATIVE (Negative)
[2022-09-20 10:57] LABS: Basophils # (auto) 0.05 K/uL (0-0.2); Basophils % (auto) 0.4 %; Eosinophils # (auto) 0.04 K/uL (0-0.50); Eosinophils % (auto) 0.3 %; Hematocrit (blood only) 34.5 % (42.0-52.0); Hemoglobin 10.7 g/dl (14.0-18.0); Immature Granulocytes # (auto) 0.05 K/uL (0.01-0.20); Immature Granulocytes % (auto) 0.4 %; Lymphocytes # (auto) 0.43 K/uL (1.2-3.4); Lymphocytes % (auto) 3.4 %; Mean Corpuscular Hemoglobin 30.1 pg (25.0-34.0); Mean Corpuscular Volume 97.2 fL (80.0-100.0); Mean Platelet Volume 8.8 fL (9.4-12.4); Monocytes # (auto) 0.82 K/uL (0.11-0.59); Monocytes % (auto) 6.4 %; Neutrophils # (auto) 11.35 K/uL (1.40-6.50); Neutrophils % (auto) 89.1 %; Platelet Count 203 K/uL (130-400); RDW Coefficient of Variation 15.9 % (11.5-14.5); RDW Standard Deviation 57.1 fL (36.4-46.3); Red Blood Count 3.55 M/uL (4.70-6.10); White Blood Count 12.74 K/ul (4.8-10.8)
[2022-09-20 11:17] LABS: Albumin Level 3.7 gm/dl (3.4-5.0); BUN Creatinine Ratio 14.7 (10-20); Bilirubin Direct 0.1 mg/dl (0-0.2); Bilirubin,Total 0.6 mg/dl (0.2-1.0); Calcium 8.9 mg/dl (8.5-10.1); Creatinine Clr Calc Pharmacy 15.1 ml/min; Est GFR (African American) 13.5 ml/min; Est GFR (Non-African American) 11.6 ml/min; Magnesium 2.3 mg/dl (1.7-2.4); Potassium 5.6 mmol/L (3.5-5.1); Total Protein 6.4 gm/dl (6.0-8.3)
[2022-09-20 11:36] LABS: INR 1.2 (0.9-1.1); Partial Thromboplastin Ratio 1.5; Partial Thromboplastin Time 40.5 Seconds (21.0-31.0); Prothrombin Time 12.5 Seconds (9.0-12.0)
--- NOTE | 2022-09-20 11:36 | History & Physical Report ---
Date of Service September 20, 2022 Assessment & Plan (1) Sepsis: Plan: Suspected pneumonia source Cefepime given in the ER for empiric coverage. Will switch antibiotics to Unasyn + azithromycin -he is growing multiresistant Pseudomonas (including to cefepime) in his wound before however suspected infection from his lungs rather than wound at this time. Lactate normal. Agree with discontinuing further IV fluids. Despite low blood pressure doubtful he will require vasopressors given normal lactate and no confusion or dizziness unless persistently mean arterial pressure less than 60. Will consider repeating lactate if his mean arterial pressure is consistently b elow 60 or if patient needs dialysis as he may not tolerate this without vasopressors at the present time. Blood pressure should improve by tomorrow with stopping his minoxidil, metoprolol and spironolactone - he took all of these this morning. Follow-up blood cultures (2) Acute hyperkalemia: Plan: Suspect combination of spironolactone and end-stage renal disease Currently unlikely to tolerate dialysis with hypotension therefore will give Lokelma 10 g PO Repeat BMP @ 6pm and in AM to check need for urgent dialysis (3) Lobar pneumonia: Plan: Flutter valve Incentive spirometer Antibiotics as above (4) Atrial fibrillation: Plan: Continue apixaban 2.5 mg p.o. twice daily (5) Hypertension: Plan: Stop metoprolol, minoxidil, spironolactone due to current hypotension (6) ESRD (end stage renal disease) on dialysis: Plan: Consult nephrology (7) Neurogenic bladder: Plan: Continue chronic Perry catheter, changed on day of admission (8) Sleep apnea: Plan: CPAP at bedtime (9) Osteomyelitis of sacrum: Plan: Chronic. Low suspicion this is causing current infection given definitive lobar pneumonia. Plan VTE prophylaxis -apixaban Diet -dialysis renal Disposition -admit to PCU Admission and Anticipated Discharge Date Admission Date: September 20, 2022 History of Present Illness Chief Complaint: Cough, generalized weakness Primary Care Provider: DO Guanaco Greer is a 77-year-old male with end-stage renal disease on dialysis and chronic sacral ulcer with wound VAC who presents to the ER via ALS with increased weakness, cough, chills, sweats. Symptoms started last night. [place] well yesterday and before this. Cough non-productive. No nasal congestion, sinus pain, chest pain, diarrhea, abdominal pain, nausea or vomiting. Reports his back wound has been improving. Patient receives dialysis on Friday, Friday and Fridays. Did not get dialysis today but had this on Friday without issues. Baseline mobility is getting out of his bed to wheelchair (using counter balance) and attempted to stand daily. 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 He has a chronic Perry catheter. Allergies Allergy/AdvReac Type Severity Reaction Status Date / Time tetracycline Allergy Intermediate HIVES Verified 09/20/22 11:02 morphine AdvReac Intermediate Nausea Verified 09/20/22 11:02 Home Medications Medication Instructions Recorded Confirmed Type cholecalciferol (vitamin D3) 50 50 mcg PO QPM 12/31/19 09/20/22 History mcg (2,000 unit) tablet (Vitamin D3) azelastine 205.5 mcg (0.15 %) 1 spray intranasal HS PRN seasonal 09/04/20 09/20/22 Rx nasal spray allergies #30 mL acetaminophen 500 mg tablet 1,000 mg PO DIRECTED PRN Pain 07/13/21 09/20/22 History (Tylenol Extra Strength) Wheelchair (Powered) (Power #1 ea 01/04/22 09/10/22 Rx Wheelchair) vitamin B complex and vitamin C 1 cap PO QAM #30 caps 02/12/22 09/20/22 Rx no.20-folic acid 1 mg capsule (Renal Caps) oxycodone-acetaminophen 5 mg-325 1 tab PO Q6H PRN pain #30 tabs 08/15/22 09/20/22 Rx mg tablet (Percocet) apixaban 2.5 mg tablet (Eliquis) 2.5 mg PO BID #180 tabs 09/10/22 09/20/22 Rx atorvastatin 20 mg tablet (Lipitor) 20 mg PO QPM #90 tabs 09/10/22 09/20/22 Rx gabapentin 300 mg capsule 300 mg PO HS #90 caps 09/10/22 09/20/22 Rx metoprolol succinate 25 mg 25 mg PO QAM #90 tabs 09/10/22 09/20/22 Rx tablet,extended release 24 hr metronidazole 1 % topical gel 1 applic topical DAILY PRN Fungal 09/10/22 09/20/22 History (Metrogel) minoxidil 10 mg tablet 10 mg PO QAM #90 tabs 09/10/22 09/20/22 Rx nortriptyline 25 mg capsule 25 mg PO HS #90 caps 09/10/22 09/20/22 Rx (Pamelor) alprazolam 0.25 mg tablet 0.25 mg PO HS PRN Anxiety 09/20/22 09/20/22 History sevelamer carbonate 800 mg tablet 800 - 1,600 mg PO TID 09/20/22 09/20/22 History spironolactone 50 mg tablet 50 mg PO QAM 09/20/22 09/20/22 History Past Med/Surg History Medical History Abdominal aortic aneurysm (~2014) S/p Type A dissection with emergent repair in 2014 Later found to have AAA 3.5cm- followed by vascular surgery with medical management Anemia due to chronic kidney disease Anxiety Atrial fibrillation Follows with [facility] cardiology (Dr. Jarvis) On Eliquis AV fistula LEFT ESRD (end stage renal disease) on dialysis [facility] in [place] Mon-Fri-Fri History of blood transfusion 12/19/21 per pt History of CHF (congestive heart failure) Hyperlipidemia Hypertension Lumbar spinal stenosis Neurogenic bladder Self Catheterization since Aortic repair 4-5X PER DAY Neuropathic pain Permanent central venous catheter in place perm cath in place on right side used for dialayis--last changed 03/02/[address] Marroquin Pseudomonas infection PTSD (post-traumatic stress disorder) POST AORTIC DISSECTION Sacral decubitus ulcer, stage IV "stable to improved" per [place] wound clinic>WOUND VAC INTACT/WOUND CLINIC WEEKLY AND [facility]UR[facility] 2X PER WEEK. 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 Shrestha at [facility]>WC BOUND FOR 3 YEARS D/T CYSTS Surgical History History of arthroplasty of left hip History of arthroscopy RT KNEE History of bladder surgery History of cardiac catheterization 2003 - no stents - [facility] in [place] History of cardioversion mult>FOLLOWS WITH DR. JARVIS History of cataract surgery RT/LEFT History of colonoscopy History of esophagogastroduodenoscopy (EGD) History of gastric bypass 2010 History of lumbar fusion History of open reduction and internal fixation (ORIF) procedure RT WRIST 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 2015 Did have thoracic bleeding post op- required re exploration approx 1 week after initial presentation- had ARF, spinal cord ischemia resulting in paraplegia, neurogenic bladder and neurogenic bowel. History of revision of total hip arthroplasty History of rhinoplasty History of tooth extraction History of total knee replacement RT History of transurethral resection of prostate Nausea and vomiting after administration of anesthetic agent S/P debridement (06/27/21) Excisional Debridement Sacral Decubitus Ulcer down to muscle level 4cm x 6cm - Ranjeet Myers DO 06/27/2021 Excisional Debridement of Sacral Decubitus Ulcer Down to Bone, 11cm x 10cm(Not Applicable) - Ranjeet Myers DO 07/25/2021: MAC 3, ETT 7.5. S/P debridement (02/08/22) Sacral Wound Debridment, Sacral bone biopsy(Not Applicable) - Jose Le DO S/P total right hip arthroplasty Family History Grandmother Family history of diabetes mellitus Mother Gallbladder disease Father Prostate cancer Myocardial infarction Hypertension Other Family history non-contributory No family history of adverse response to anesthesia Denies family history of Ovarian cancer Breast cancer Colorectal cancer Social History Smoking Status: Never smoker Second Hand Exposure: Yes (IN THE PAST); Hx Alcohol Use: No Hx Substance Use: No Preferred Language: Guamanian Communication Ability: Effective Visual Impairment: Limited Hearing Ability: Normal 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 Beliefs That Will Affect Care: None marital status: Current Living Situation: Spouse Current Living Situation Comment: Lives with at home current occupational status: retired How many Children do You have: 1 Other Information That Helps Us Care for You: No Feels Safe at Home: Yes Safety Concerns: Feels Safe At This Time Childhood Exposure to Second-Hand Smoke: Yes (father did ) Diet Comment: low sugar, low phospate caffeine: Yes (tea x 3 daily) during the past year weight has: remained stable Dental Care, Regularly: Yes Physical Activity Frequency: Does not Exercise Physical Activity Frequency Comment: goes to PT twice a week Seatbelt Use: always Sunscreen Use: Yes Do you think of yourself as: straight/heterosexual Gender Identity: Male Assistive Devices: CPAP, Glasses and Wheelchair Review of Systems Review of Systems: All systems reviewed & are unremarkable except as noted in HPI & below Chronic left leg pain from reduced movement in this leg secondary to neuropathy from his back. Physical Exam Constitutional: WD/WN, vitals as above Eyes: + anicteric sclerae; normal pupil size ENMT: external ear and nose normal, oropharynx normal Respiratory: normal respiratory effort, lungs clear to auscultation Cardiovascular: Rate/Rhythm: regular rate and + irregularly irregular Heart Sounds: no murmur Extremities: normal capillary refill; no calf tenderness and no pedal edema Gastrointestinal (Abdomen): normal bowel sounds, soft, nontender, no hepatosplenomegaly Skin: Wound VAC in place on sacrum without surrounding cellulitis 2 scabbed wounds on right foot without surrounding cellulitis Neurologic: moves all extremities (Reduced left hip movements chronically reportedly due to back neuropathy) and awake; not confused Speech / Cognition: normal speech Psychiatric: A+Ox3, euthymic affect Results & Data Results & Data ([facility]) Vital Signs (Past 12 Hours) Vital Signs Temp Pulse Pulse Resp BP BP Pulse Ox 09/20/22 11:10 77 16 96 09/20/22 11:10 89/50 L 09/20/22 11:06 81 14 96 09/20/22 11:06 77/53 L 09/20/22 11:00 86 18 96 09/20/22 10:45 74 23 92 09/20/22 10:38 91 H 17 97 09/20/22 10:38 83/57 L 09/20/22 10:30 94 H 16 96 09/20/22 10:15 88 21 96 09/20/22 10:00 90 16 96 09/20/22 10:00 96/51 L 09/20/22 09:45 82 18 96 09/20/22 09:42 86 17 09/20/22 10:40 78 16 83/57 L 95 09/20/22 10:30 92 H 16 96 09/20/22 10:26 87 09/20/22 09:52 76 96 09/20/22 09:45 37.1 C 76 16 90/61 L 96 O2 Del Method 09/20/22 11:10 Room Air 09/20/22 11:10 09/20/22 11:06 Room Air 09/20/22 11:06 09/20/22 11:00 Room Air 09/20/22 10:45 Room Air 09/20/22 10:38 Room Air 09/20/22 10:38 09/20/22 10:30 Room Air 09/20/22 10:15 Room Air 09/20/22 10:00 Room Air 09/20/22 10:00 09/20/22 09:45 Room Air 09/20/22 09:42 09/20/22 10:40 Room Air 09/20/22 10:30 Room Air 09/20/22 10:26 09/20/22 09:52 Room Air 09/20/22 09:45 Room Air Laboratory Results Abnormal lab results 09/20/22 09/20/22 09/20/22 Range/Units 10:23 10:23 10:23 WBC 12.74 H (4.8-10.8) K/ul RBC 3.55 L (4.70-6.10) M/uL Hgb 10.7 L (14.0-18.0) g/dl Hct 34.5 L (42.0-52.0) % MCHC 31.0 L (32.0-36.0) g/dL RDW Std Deviation 57.1 H (36.4-46.3) fL RDW Coeff of Hector 15.9 H (11.5-14.5) % MPV 8.8 L (9.4-12.4) fL Neut # (Auto) 11.35 H (1.40-6.50) K/uL Lymph # (Auto) 0.43 L (1.2-3.4) K/uL Davie # (Auto) 0.82 H (0.11-0.59) K/uL PT 12.5 H (9.0-12.0) Seconds INR 1.2 H (0.9-1.1) APTT 40.5 H (21.0-31.0) Seconds Sodium 134 L (136-145) mmol/L Potassium 5.6 H (3.5-5.1) mmol/L Chloride 97 L (98-107) mmol/L BUN 67 H (6-23) mg/dl Creatinine 4.56 H* (0.6-1.4) mg/dl Troponin I High Sens 32.0 H (0-20) pg/ml Procalcitonin (0-0.5) ng/ml 09/20/22 Range/Units 10:23 WBC (4.8-10.8) K/ul RBC (4.70-6.10) M/uL Hgb (14.0-18.0) g/dl Hct (42.0-52.0) % MCHC (32.0-36.0) g/dL RDW Std Deviation (36.4-46.3) fL RDW Coeff of Hector (11.5-14.5) % MPV (9.4-12.4) fL Neut # (Auto) (1.40-6.50) K/uL Lymph # (Auto) (1.2-3.4) K/uL Davie # (Auto) (0.11-0.59) K/uL PT (9.0-12.0) Seconds INR (0.9-1.1) APTT (21.0-31.0) Seconds Sodium (136-145) mmol/L Potassium (3.5-5.1) mmol/L Chloride (98-107) mmol/L BUN (6-23) mg/dl Creatinine (0.6-1.4) mg/dl Troponin I High Sens (0-20) pg/ml Procalcitonin 3.10 H (0-0.5) ng/ml Diagnostic Findings SINGLE VIEW CHEST CLINICAL HISTORY: Sepsis. FINDINGS: 2 AP, portable, upright chest radiographs are compared to study dated 04/19/2022 and correlated with chest CT dated 05/17/2021. The patient is status post midline sternotomy. The heart is enlarged noting atherosclerotic calcification of the thoracic aorta. The pulmonary vasculature is noncongested. Chronic interstitial thickening is similar to previous. There is dense airspace consolidation in the left mid lung. Milder consolidation is seen at the left lung base. The right lung appears clear noting basilar atelectasis. No large pleural effusion or pneumothorax is seen. The skeletal structures are osteopenic. The bony thorax is grossly intact. Surgical clips project over the right axilla. IMPRESSION: 1. Airspace consolidation in the left mid to lower lung is typical for pneumonia. Clinical correlation will be required and radiographic follow-up to resolution is recommended. 2. Cardiomegaly without radiographic evidence of congestive failure. CT abd pelvis wo con CLINICAL HISTORY: sacral ulcer TECHNIQUE: Helical axial images of the abdomen and pelvis were obtained. Automated dose lowering techniques and/or adjustment according to patient size were utilized for this exam. This exam was performed without intravenous contrast. CT DOSE: 531.90 mGy.cm COMPARISON: Comparison is made to CT abdomen pelvis 05/16/2022 FINDINGS: Lower chest: Airspace opacity is seen in the left greater than right lower lobe. Cardiomegaly is seen. Liver: Unremarkable. No focal lesions are seen. Gallbladder and biliary tree: No calcified gallstones. Normal caliber wall. No intra- or extrahepatic biliary ductal dilation. Pancreas: Unremarkable, no focal lesions. Spleen: Unremarkable. Adrenals: Unremarkable. Kidneys and ureters: A few exophytic cysts are seen. Bladder: Focus of gas is noted in the bladder, correlation with recent rotation is recommended. Reproductive organs: Unremarkable. Bowel: Patient is status post Kang-en-Y gastric bypass. Lymph nodes Retroperitoneal: Unremarkable. Pelvic: Unremarkable. Mesenteric: Unremarkable. Peritoneum: Normal. Vessels: Atherosclerotic disease is seen. There is a infrarenal aortic dissection measuring 35 mm in diameter. 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 Abdominal wall: There is a sacral ulcer with gas noted in close proximity to the bone. Overall the soft tissue defect has improved from prior exam. Bones: Sclerosis of the sacrum is seen which may be reactive and there is significant erosion of the lower sacrum and coccyx. 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 Degenerative changes are seen and there is surgical fixation of L3-L5. Focal defect in the right ischial bone may represent prior bone graft donor site. IMPRESSION: 1. Interval improvement in sacral soft tissue ulceration. A residual ulcer versus smaller interval new ulcer is noted and there is bony sclerosis and erosion compatible with previously noted osteomyelitis. If there is concern for active osteomyelitis, MRI may be more sensitive. 2. Aortic dissection is again seen. 3. Pneumonia in the left greater than right lung base. Medications Administered ER medications given: Cefepime 2 g IV Acetaminophen 1 g IV Ondansetron 4 mg IV Normal saline 2.75 L fluid however he only received 1 L bolus and the rest was canceled after realizing he was on dialysis ECG Indication: other Rate (beats per minute): 84 Rhythm: atrial fibrillation Findings: + other (Nonspecific T wave abnormalities in inferior lateral leads) Comparison ECG Date: from (April 19, 2022) Change: the following changes noted (T wave flattening as above is new) Code Status & VTE Plan Code Status Full VTE Prophylaxis Plan VTE Prophylaxis will be ordered: Yes PG Care Time/CCT Total # of Minutes Spent Total Time Spent with Patient: Total time spent is greater than 50% in coordination of care (as documented) at patient's floor/unit and/or counseling patient: Coding Level of Care Code 91556 INT INP/OBS CARE 3/75MIN Diagnoses Sepsis A41.9 Acute hyperkalemia E87.5 Lobar pneumonia J18.1 Atrial fibrillation I48.2 Atrial fibrillation type: permanent Hypertension I10 Hypertension type: essential hypertension ESRD (end stage renal disease) on dialysis N18.6; Z99.2 Neurogenic bladder N31.9 Sleep apnea G47.30 Osteomyelitis of sacrum M46.28 (4) Atrial fibrillation Atrial fibrillation type: permanent Qualified Code(s): I48.2 - Chronic atrial fibrillation (5) Hypertension Hypertension type: essential hypertension Qualified Code(s): I10 - Essential (primary) hypertension
--- NOTE | 2022-09-20 11:38 | CT Scan Report ---
CT abd pelvis wo con CLINICAL HISTORY: sacral ulcer TECHNIQUE: Helical axial images of the abdomen and pelvis were obtained. Automated dose lowering tech niques and/or adjustment according to patient size were utilized for this exam. This exam was perfor med without intravenous contrast. CT DOSE: 531.90 mGy.cm COMPARISON: Comparison is made to CT abdomen pelvis 05/16/2022 FINDINGS: Lower chest: Airspace opacity is seen in the left greater than right lower lobe. Cardiomegaly is see n. Liver: Unremarkable. No focal lesions are seen. Gallbladder and biliary tree: No calcified gallstones. Normal caliber wall. No intra- or extrahepatic biliary ductal dilation. Pancreas: Unremarkable, no focal lesions. Spleen: Unremarkable. Adrenals: Unremarkable. Kidneys and ureters: A few exophytic cysts are seen. Bladder: Focus of gas is noted in the bladder, correlation with recent rotation is recommended. Reproductive organs: Unremarkable. Bowel: Patient is status post Kang-en-Y gastric bypass. Lymph nodes Retroperitoneal: Unremarkable. Pelvic: Unremarkable. Mesenteric: Unremarkable. Peritoneum: Normal. Vessels: Atherosclerotic disease is seen. There is a infrarenal aortic dissection measuring 35 mm in diameter. 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 Abdominal wall: There is a sacral ulcer with gas noted in close proximity to the bone. Overall the s oft tissue defect has improved from prior exam. Bones: Sclerosis of the sacrum is seen which may be reactive and there is significant erosion of the lower sacrum and coccyx. 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 Degenerative changes are seen a nd there is surgical fixation of L3-L5. Focal defect in the right ischial bone may represent prior hever ne graft donor site. IMPRESSION: 1. Interval improvement in sacral soft tissue ulceration. A residual ulcer versus smaller interval n ew ulcer is noted and there is bony sclerosis and erosion compatible with previously noted osteomyeli tis. If there is concern for active osteomyelitis, MRI may be more sensitive. 2. Aortic dissection is again seen. 3. Pneumonia in the left greater than right lung base. ACT 112: Negative or not required by law. Electronically signed by: Aren Forbes M.D. 09/20/2022 11:37 AM
[2022-09-20] MEDS ORDERED: oxyCODONE HCL IR 5 MG TAB (IMMEDIATE RELEASE) PO STA (12:09)
[2022-09-20] MEDS ORDERED: ONDANSETRON INJ 2 MG/ML 2 ML VIAL IV PRN (13:15)
[2022-09-20] MEDS ORDERED: ALPRAZolam 0.25 MG TABLET PO PRN (13:15)
[2022-09-20] MEDS ORDERED: SODIUM ZIRCONIUM CYCLOSILICATE 10 GM PACKET PO ONE (13:15)
[2022-09-20] MEDS ORDERED: MIDODRINE HCL 10 MG TAB PO STA (13:29)
--- NOTE | 2022-09-20 15:13 | Nephrology Consultation ---
Date of Consultation September 20, 2022 Assessment & Plan (1) ESRD (end stage renal disease) on dialysis: HD MWF. Orders for HD today entered into EHR and reviewed with community health program representative. BP soft, midodrine provided prior to treatment. Low potassium bath for hyperkalemia. AVF has been functioning well. Outpatient HD Rx has been MWF 3h 45m on a 180 optiflux at Qb 450 Qd 800, 3 K, 2.5 calcium. EDW 85.3 kg. Medications appropriately dosed for kidney function. Potassium has been running high. I spoke to Sylvester and his Bahman today and instructed them to stop spironolactone. Low potassium diet. Continue daily renal MVI. Document I/O's. Repeat metabolic profile tomorrow AM. (2) Anemia due to chronic kidney disease: Chronic, stable. Maintained on Micera 150 mg Q2 weeks at HD. Venofer 100 mg provided with treatments. (3) Acute hyperkalemia: Emergent HD coordinated. Low K diet. Stop spironolactone. Repeat labs tomorrow AM. (4) Sepsis: Empiric treatment with Cefepime started in the ER. I discussed with Dr. Smith. Therapy switched to Unasyn + azithromycin. Concern for primary lung infection. Lactate normal. Antihypertensives including metoprolol and minoxidil will be held. (5) Lobar pneumonia: Imaging reviewed. Therapy as above. Influenza and COVID testing negative. (6) Sacral decubitus ulcer, stage IV: Wound care notes reviewed. CT reviewed. Wound care. Not felt to be primary source of infection at this time. History of Present Illness Reason for Consultation: ESRD on HD Requesting Physician: Low Caban MD Attending Physician: Low Caban MD History of Present Illness Mr. Guanaco Escobedo (Ken) is a 75-year-old male with hypertension, osteoarthritis, spinal stenosis, a significant history of type A aortic dissection with resultant spinal ischemia and neurogenic bladder. He has loss of sensation complicated by a sacral decubitus ulcer. 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 Following aortic repair, a stable infrarenal dissection has been monitored in the distal aorta extending into the left iliac. Baseline creatinine has been ~3.2 to 4.2 mg/dL. He has CKD attributed to vascular disease and hypertensive nephrosclerosis as well as a significant history of ATN. He started HD during an admission to [facility] in January 2022. Sylvester has been tolerating HD reasonably well with some intradialytic hypotension. He does use opiates for pain associated with sacral decubitus prior to treatment. He is also maintained on PRN alprazolam for a history of panic attacks related to PTSD. He has a well functioning L AC AVF which was placed by Dr. Marroquin. He was admitted to [facility] in September 2021 with a sacral decubitus ulcer and concern for osteomyelitis. During the admission, he developed anemia requiring PRBC transfusion support. He follows with wound care at [facility]. Outpatient HD Rx has been MWF 3h 45m on a 180 optiflux at Qb 450 Qd 800, 3 K, 2.5 calcium. EDW 85.3 kg. He completed dialysis on Friday without complications. Post treatment weight was 84.8 kg. Sylvester presented from home to the [facility] ED today for evaluation of weakness. I spoke to Sylvester and his Gabbi today. Yesterday evening, Sylvester was able to get out of bed and make transfers with assistance. This morning, he was too week. He describes associated lightheadedness and generalized malaise. He denies any sick contacts. He denies fevers. He has not had a cough or notable dyspnea but he has noticed some congestion in his chest this AM. He developed cold chills while resting in bed yesterday evening. He was uncomfortable with some myalgias overnight. He states that he soaked the bed with a cold sweat yesterday evening. Evaluation in the ER was notable for WBC 12.7 and procal of 3.1. Potassium slightly elevated at 5.6 mmol/L. CXR demonstrating a possible LLL infiltrate. CT abdomen and pelvis notable for persistent ulcer and erosion in the sacral area with potential concern for osteomyelitis. I discussed the patient and plan of care with Dr. Caban this afternoon. Allergies Allergy/AdvReac Type Severity Reaction Status Date / Time tetracycline Allergy Intermediate HIVES Verified 09/20/22 11:02 morphine AdvReac Intermediate Nausea Verified 09/20/22 11:02 Home Medications Medication Instructions Recorded Confirmed Type cholecalciferol (vitamin D3) 50 50 mcg PO QPM 12/31/19 09/20/22 History mcg (2,000 unit) tablet (Vitamin D3) azelastine 205.5 mcg (0.15 %) 1 spray intranasal HS PRN seasonal 09/04/20 09/20/22 Rx nasal spray allergies #30 mL acetaminophen 500 mg tablet 1,000 mg PO DIRECTED PRN Pain 07/13/21 09/20/22 History (Tylenol Extra Strength) Wheelchair (Powered) (Power #1 ea 01/04/22 09/10/22 Rx Wheelchair) vitamin B complex and vitamin C 1 cap PO QAM #30 caps 02/12/22 09/20/22 Rx no.20-folic acid 1 mg capsule (Renal Caps) oxycodone-acetaminophen 5 mg-325 1 tab PO Q6H PRN pain #30 tabs 08/15/22 09/20/22 Rx mg tablet (Percocet) apixaban 2.5 mg tablet (Eliquis) 2.5 mg PO BID #180 tabs 09/10/22 09/20/22 Rx atorvastatin 20 mg tablet (Lipitor) 20 mg PO QPM #90 tabs 09/10/22 09/20/22 Rx gabapentin 300 mg capsule 300 mg PO HS #90 caps 09/10/22 09/20/22 Rx metoprolol succinate 25 mg 25 mg PO QAM #90 tabs 09/10/22 09/20/22 Rx tablet,extended release 24 hr metronidazole 1 % topical gel 1 applic topical DAILY PRN Fungal 09/10/22 3 History (Metrogel) minoxidil 10 mg tablet 10 mg PO QAM #90 tabs 09/10/22 09/20/22 Rx nortriptyline 25 mg capsule 25 mg PO HS #90 caps 09/10/22 09/20/22 Rx (Pamelor) alprazolam 0.25 mg tablet 0.25 mg PO HS PRN Anxiety 09/20/22 09/20/22 History sevelamer carbonate 800 mg tablet 800 - 1,600 mg PO TID 09/20/22 09/20/22 History spironolactone 50 mg tablet 50 mg PO QAM 09/20/22 09/20/22 History Patient History Medical History Abdominal aortic aneurysm (~2014) S/p Type A dissection with emergent repair in 2014 Later found to have AAA 3.5cm- followed by vascular surgery with medical management Anemia due to chronic kidney disease Anxiety Atrial fibrillation Follows with [facility] cardiology (Dr. Jarvis) On Eliquis AV fistula LEFT ESRD (end stage renal disease) on dialysis [facility] in [place] Mon-Wed-Fri History of blood transfusion 12/19/21 per pt History of CHF (congestive heart failure) Hyperlipidemia Hypertension Lumbar spinal stenosis Neurogenic bladder Self Catheterization since Aortic repair 4-5X PER DAY Neuropathic pain Permanent central venous catheter in place perm cath in place on right side used for dialayis--last changed 03/02/[address] Marroquin Pseudomonas infection PTSD (post-traumatic stress disorder) POST AORTIC DISSECTION Sacral decubitus ulcer, stage IV "stable to improved" per [place] wound clinic>WOUND VAC INTACT/WOUND CLINIC WEEKLY AND [facility] HOME NURSING 2X PER WEEK. 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 Shrestha at [facility] [place]>WC BOUND FOR 3 YEARS D/T CYSTS Surgical History History of arthroplasty of left hip History of arthroscopy RT KNEE History of bladder surgery History of cardiac catheterization 2003 - no stents - [facility] in [place] History of cardioversion mult>FOLLOWS WITH DR. 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 History of revision of total hip arthroplasty History of rhinoplasty History of tooth extraction History of total knee replacement RT History of transurethral resection of prostate Nausea and vomiting after administration of anesthetic agent S/P debridement (06/27/21) Excisional Debridement Sacral Decubitus Ulcer down to muscle level 4cm x 6cm - Ranjeet Myers DO 06/27/2021 Excisional Debridement of Sacral Decubitus Ulcer Down to Bone, 11cm x 10cm(Not Applicable) - Ranjeet Myers DO 07/25/2021: MAC 3, ETT 7.5. S/P debridement (02/08/22) Sacral Wound Debridment, Sacral bone biopsy(Not Applicable) - Jose Le DO S/P total right hip arthroplasty Family History Grandmother Family history of diabetes mellitus Mother Gallbladder disease Father Prostate cancer Myocardial infarction Hypertension Other Family history non-contributory No family history of adverse response to anesthesia Denies family history of Ovarian cancer Breast cancer Colorectal cancer Social History Smoking Status: Never smoker Second Hand Exposure: Yes (IN THE PAST); Hx Alcohol Use: No Hx Substance Use: No Preferred Language: Sri [place]ankan Communication Ability: Effective Visual Impairment: Limited Hearing Ability: Normal Traffic Analyst Required: No Beliefs That Will Affect Care: None marital status: Current Living Situation: Spouse Current Living Situation Comment: Lives with at home current occupational status: retired How many Children do You have: 1 Other Information That Helps Us Care for You: No Feels Safe at Home: Yes Safety Concerns: Feels Safe At This Time Childhood Exposure to Second-Hand Smoke: Yes (father did ) Diet Comment: low sugar, low phospate caffeine: Yes (tea x 3 daily) during the past year weight has: remained stable Dental Care, Regularly: Yes Physical Activity Frequency: Does not Exercise Physical Activity Frequency Comment: goes to PT twice a week Seatbelt Use: always Sunscreen Use: Yes Do you think of yourself as: straight/heterosexual Gender Identity: Male Assistive Devices: CPAP, Glasses and Wheelchair Review of Systems Review of Systems: All systems reviewed & are unremarkable except as noted in HPI & below Physical Exam Constitutional: well developed, + ill appearing, + thin and + frail appearing; no acute distress Eyes: + anicteric sclerae; no corneal abnormality Neck: normal visual inspection and trachea midline Respiratory: normal respiratory effort Auscultation: + rhonchi Cardiovascular: Rate/Rhythm: regular rate Heart Sounds: normal S1, normal S2 and + murmur Extremities: + edema and + AV fistula Musculoskeletal: Extremities: no cyanosis and no clubbing Skin: + turgor decreased; no lesions Neurologic: Motor/Sensory: no tremor and no asterixis Psychiatric: Orientation: alert and oriented x 3 Results & Data ([facility]) Vital Signs (Past 12 Hours) Vital Signs Temp Pulse Pulse Resp BP BP BP 09/20/22 15:00 73 09/20/22 14:16 68 84/51 L 09/20/22 14:01 36.4 C L 74 09/20/22 13:59 82 09/20/22 13:18 09/20/22 13:18 36.5 C 71 18 95/54 L 09/20/22 12:00 81 12 09/20/22 11:45 80 20 09/20/22 11:45 83/58 L 09/20/22 11:30 78 18 09/20/22 11:23 24 09/20/22 11:23 86/56 L 09/20/22 11:22 12 09/20/22 11:10 77 16 09/20/22 11:10 89/50 L 09/20/22 11:06 81 14 09/20/22 11:06 77/53 L 09/20/22 11:00 86 18 09/20/22 10:45 74 23 09/20/22 10:38 91 H 17 09/20/22 10:38 83/57 L 09/20/22 10:30 94 H 16 09/20/22 10:15 88 21 09/20/22 10:00 90 16 09/20/22 10:00 96/51 L 09/20/22 09:45 82 18 09/20/22 09:42 86 17 09/20/22 10:40 78 16 83/57 L 09/20/22 10:30 92 H 16 09/20/22 10:26 87 09/20/22 09:52 76 09/20/22 09:45 37.1 C 76 16 90/61 L Pulse Ox O2 Del Method 09/20/22 15:00 09/20/22 14:16 09/20/22 14:01 09/20/22 13:59 09/20/22 13:18 Room Air 09/20/22 13:18 92 Room Air 09/20/22 12:00 97 09/20/22 11:45 96 09/20/22 11:45 09/20/22 11:30 96 09/20/22 11:23 95 09/20/22 11:23 09/20/22 11:22 96 09/20/22 11:10 96 Room Air 09/20/22 11:10 09/20/22 11:06 96 Room Air 09/20/22 11:06 09/20/22 11:00 96 Room Air 09/20/22 10:45 92 Room Air 09/20/22 10:38 97 Room Air 09/20/22 10:38 09/20/22 10:30 96 Room Air 09/20/22 10:15 96 Room Air 09/20/22 10:00 96 Room Air 09/20/22 10:00 09/20/22 09:45 96 Room Air 09/20/22 09:42 09/20/22 10:40 95 Room Air 09/20/22 10:30 96 Room Air 09/20/22 10:26 09/20/22 09:52 96 Room Air 09/20/22 09:45 96 Room Air Laboratory Results Laboratory Results - last 24 hr 09/20/22 09/20/22 09/20/22 10:00 10:23 10:23 WBC 12.74 H RBC 3.55 L Hgb 10.7 L Hct 34.5 L MCV 97.2 MCH 30.1 MCHC 31.0 L RDW Std Deviation 57.1 H RDW Coeff of Hector 15.9 H Plt Count 203 MPV 8.8 L Immature Gran % (Auto) 0.4 Neut % (Auto) 89.1 Lymph % (Auto) 3.4 [place] % (Auto) 6.4 Eos % (Auto) 0.3 Baso % (Auto) 0.4 Neut # (Auto) 11.35 H Lymph # (Auto) 0.43 L [place] # (Auto) 0.82 H Eos # (Auto) 0.04 Baso # (Auto) 0.05 Immature Gran # (Auto) 0.05 PT 12.5 H INR 1.2 H APTT 40.5 H PTT Ratio 1.5 Sodium Potassium Chloride Carbon Dioxide Anion Gap BUN Creatinine Est Cr Clr Drug Dosing Est GFR ( Amer) Est GFR (Non-Af Amer) BUN/Creatinine Ratio Glucose Lactate Calcium Magnesium Total Bilirubin Direct Bilirubin AST ALT Alkaline Phosphatase Troponin I High Sens Total Protein Albumin Procalcitonin Nasal Screen MRSA (PCR) SARS-CoV-2 (PCR) NEGATIVE Influenza Type A (PCR) Negative Influenza Type B (PCR) Negative RSV (RT-PCR) Negative 09/20/22 09/20/22 09/20/22 10:23 10:23 10:23 WBC RBC Hgb Hct MCV MCH MCHC RDW Std Deviation RDW Coeff of Hector Plt Count MPV Immature Gran % (Auto) Neut % (Auto) Lymph % (Auto) [place] % (Auto) Eos % (Auto) Baso % (Auto) Neut # (Auto) Lymph # (Auto) [place] # (Auto) Eos # (Auto) Baso # (Auto) Immature Gran # (Auto) PT INR APTT PTT Ratio Sodium 134 L Potassium 5.6 H Chloride 97 L Carbon Dioxide 28 Anion Gap 9 BUN 67 H Creatinine 4.56 H* Est Cr Clr Drug Dosing 15.1 Est GFR ( Amer) 13.5 Est GFR (Non-Af Amer) 11.6 BUN/Creatinine Ratio 14.7 Glucose 96 Lactate 1.5 Calcium 8.9 Magnesium 2.3 Total Bilirubin 0.6 Direct Bilirubin 0.1 AST 14 ALT 12 Alkaline Phosphatase 97 Troponin I High Sens 32.0 H Total Protein 6.4 Albumin 3.7 Procalcitonin 3.10 H Nasal Screen MRSA (PCR) SARS-CoV-2 (PCR) Influenza Type A (PCR) Influenza Type B (PCR) RSV (RT-PCR) 09/20/22 13:38 WBC RBC Hgb Hct MCV MCH MCHC RDW Std Deviation RDW Coeff of Hector Plt Count MPV Immature Gran % (Auto) Neut % (Auto) Lymph % (Auto) [place] % (Auto) Eos % (Auto) Baso % (Auto) Neut # (Auto) Lymph # (Auto) [place] # (Auto) Eos # (Auto) Baso # (Auto) Immature Gran # (Auto) PT INR APTT PTT Ratio Sodium Potassium Chloride Carbon Dioxide Anion Gap BUN Creatinine Est Cr Clr Drug Dosing Est GFR ( Amer) Est GFR (Non-Af Amer) BUN/Creatinine Ratio Glucose Lactate Calcium Magnesium Total Bilirubin Direct Bilirubin AST ALT Alkaline Phosphatase Troponin I High Sens Total Protein Albumin Procalcitonin Nasal Screen MRSA (PCR) Negative SARS-CoV-2 (PCR) Influenza Type A (PCR) Influenza Type B (PCR) RSV (RT-PCR) Diagnostic Findings SINGLE VIEW CHEST FINDINGS: 2 AP, portable, upright chest radiographs are compared to study dated 04/19/2022 and correlated with chest CT dated 05/17/2021. The patient is status post midline sternotomy. The heart is enlarged noting atherosclerotic calcification of the thoracic aorta. The pulmonary vasculature is noncongested. Chronic interstitial thickening is similar to previous. There is dense airspace consolidation in the left mid lung. Milder consolidation is seen at the left lung base. The right lung appears clear noting basilar atelectasis. No large pleural effusion or pneumothorax is seen. The skeletal structures are osteopenic. The bony thorax is grossly intact. Surgical clips project over the right axilla. IMPRESSION: 1. Airspace consolidation in the left mid to lower lung is typical for pneumonia. Clinical correlation will be required and radiographic follow-up to resolution is recommended. 2. Cardiomegaly without radiographic evidence of congestive failure. CT abd pelvis wo con FINDINGS: Lower chest: Airspace opacity is seen in the left greater than right lower lobe. Cardiomegaly is seen. Liver: Unremarkable. No focal lesions are seen. Gallbladder and biliary tree: No calcified gallstones. Normal caliber wall. No intra- or extrahepatic biliary ductal dilation. Pancreas: Unremarkable, no focal lesions. Spleen: Unremarkable. Adrenals: Unremarkable. Kidneys and ureters: A few exophytic cysts are seen. Bladder: Focus of gas is noted in the bladder, correlation with recent rotation is recommended. Reproductive organs: Unremarkable. Bowel: Patient is status post Kang-en-Y gastric bypass. Lymph nodes Retroperitoneal: Unremarkable. Pelvic: Unremarkable. Mesenteric: Unremarkable. Peritoneum: Normal. Vessels: Atherosclerotic disease is seen. There is a infrarenal aortic dis section measuring 35 mm in diameter. 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 Abdominal wall: There is a sacral ulcer with gas noted in close proximity to the bone. Overall the soft tissue defect has improved from prior exam. Bones: Sclerosis of the sacrum is seen which may be reactive and there is significant erosion of the lower sacrum and coccyx. 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 Degenerative changes are seen and there is surgical fixation of L3-L5. Focal defect in the right ischial bone may represent prior bone graft donor site. IMPRESSION: 1. Interval improvement in sacral soft tissue ulceration. A residual ulcer versus smaller interval new ulcer is noted and there is bony sclerosis and erosion compatible with previously noted osteomyelitis. If there is concern for active osteomyelitis, MRI may be more sensitive. 2. Aortic dissection is again seen. 3. Pneumonia in the left greater than right lung base. PG Care Time/CCT Total # of Minutes Spent Total Time Spent with Patient: Total time spent is greater than 50% in coordination of care (as documented) at patient's floor/unit and/or counseling patient: Coding Level of Care Code INP/OBS CONSULT LVL 5, 80 MIN Diagnoses ESRD (end stage renal disease) on dialysis N18.6; Z99.2 Anemia due to chronic kidney disease N18.9; D63.1 Acute hyperkalemia E87.5 Sepsis A41.9 Lobar pneumonia J18.1 Sacral decubitus ulcer, stage IV L89.154
--- NOTE | 2022-09-20 16:28 | Electrocardiogram Report ---
Test Reason : Blood Pressure : / mmHG Vent. Rate : 084 BPM Atrial Rate : 150 BPM P-R Int : 000 ms QRS Dur : 112 ms QT Int : 384 ms P-R-T Axes : 000 -69 -14 degrees QTc Int : 453 ms Atrial fibrillation Left anterior fascicular block Nonspecific T wave abnormality Abnormal ECG When compared with ECG of 19-APR-2022 15:07, Nonspecific T wave abnormality now evident in Inferior leads Nonspecific T wave abnormality, worse in Lateral leads Confirmed by Shakeel Braun ([id number] on 09/20/2022 4:27:57 PM Referred By: REFERRED SELF Confirmed By:Joe Braun
[2022-09-20] MEDS: AZITHROMYCIN 250 MG TAB PO SCH (18:21)
[2022-09-20] MEDS: SEVELAMER HCL 800 MG TABLET PO SCH (18:23)
[2022-09-20] MEDS: AMPICILLIN/SULBACTAM SOD 3,000 MG in 0.9 % SODIUM CHLORIDE 100 ML IV SCH (18:25)
[2022-09-20] MEDS: APIXABAN 2.5 MG TAB PO SCH (20:40)
[2022-09-20] MEDS: GABAPENTIN 300 MG CAP PO SCH (20:41)
[2022-09-20] MEDS: CHOLECALCIFEROL 1,000 UNITS 25 MCG TAB PO SCH (20:41)
[2022-09-20] MEDS: NORTRIPTYLINE HCL 25 MG CAP PO SCH (20:41)
[2022-09-20] MEDS: ATORVASTATIN 20 MG TAB PO SCH (20:41)
[2022-09-20 21:41] LABS: Calcium 8.6 mg/dl (8.5-10.1)
[2022-09-20] MEDS: oxyCODONE/ACETAMINOPHEN 5mg/325mg TAB PO PRN (21:43)
[2022-09-20 21:54] LABS: BUN Creatinine Ratio 12.8 (10-20); Creatinine Clr Calc Pharmacy 21.1 ml/min; Est GFR (African American) 20.1 ml/min; Est GFR (Non-African American) 17.4 ml/min
[2022-09-21] MEDS: AMPICILLIN/SULBACTAM SOD 3,000 MG in 0.9 % SODIUM CHLORIDE 100 ML IV SCH ×2 (02:05→14:39)
[2022-09-21 02:47] LABS: Appearance Urine Clear (Clear); Bilirubin Urine Negative (Negative); Blood Urine Trace (Negative); Color Urine Yellow; Epithelial Cell Urine Auto >30 /lpf (0-5); Glucose Urine UA 1+ (Negative); Ketones Urine Negative (Negative); Leukocyte Esterase Urine 1+ (Negative); Nitrite Urine Negative (Negative); RBC Urine Automated 0-4 /hpf (0-4); Specific Gravity Urine 1.014 (1.000-1.030); Urobilinogen Urine Negative (Negative); WBC Urine Automated >30 /hpf (0-5); pH Urine >= 9.0 (4.5-7.5)
[2022-09-21 02:50] LABS: Protein Urine 3+ (Negative)
[2022-09-21 03:29] LABS: Bacteria Urine Automated 1+ (Negative)
[2022-09-21 06:19] LABS: Basophils # (auto) 0.06 K/uL (0-0.2); Basophils % (auto) 0.6 %; Eosinophils # (auto) 0.49 K/uL (0-0.50); Eosinophils % (auto) 5.1 %; Hematocrit (blood only) 29.6 % (42.0-52.0); Hemoglobin 9.3 g/dl (14.0-18.0); Immature Granulocytes # (auto) 0.05 K/uL (0.01-0.20); Immature Granulocytes % (auto) 0.5 %; Lymphocytes # (auto) 0.71 K/uL (1.2-3.4); Lymphocytes % (auto) 7.3 %; Mean Corpuscular Hemoglobin 30.7 pg (25.0-34.0); Mean Corpuscular Hgb Conc 31.4 g/dL (32.0-36.0); Mean Corpuscular Volume 97.7 fL (80.0-100.0); Monocytes # (auto) 0.74 K/uL (0.11-0.59); Monocytes % (auto) 7.6 %; Neutrophils # (auto) 7.63 K/uL (1.40-6.50); Neutrophils % (auto) 78.9 %; Platelet Count 170 K/uL (130-400); RDW Coefficient of Variation 15.9 % (11.5-14.5); RDW Standard Deviation 57.9 fL (36.4-46.3); Red Blood Count 3.03 M/uL (4.70-6.10); White Blood Count 9.68 K/ul (4.8-10.8)
[2022-09-21 08:12] LABS: Calcium 8.6 mg/dl (8.5-10.1); Potassium 4.9 mmol/L (3.5-5.1)
[2022-09-21] MEDS: SEVELAMER HCL 800 MG TABLET PO SCH ×3 (08:13→17:03)
[2022-09-21] MEDS: NEPHROCAPS PO SCH (08:13)
[2022-09-21] MEDS: APIXABAN 2.5 MG TAB PO SCH ×2 (08:13→20:10)
[2022-09-21] MEDS: METOPROLOL SUCC 25MG EXT REL TAB PO SCH (08:14)
[2022-09-21] MEDS: AZITHROMYCIN 250 MG TAB PO SCH (08:14)
[2022-09-21 08:31] LABS: BUN Creatinine Ratio 12.5 (10-20); Creatinine Clr Calc Pharmacy 18.7 ml/min; Est GFR (African American) 17.4 ml/min
--- NOTE | 2022-09-21 09:01 | Nephrology Progress Note ---
Date of Service September 21, 2022 Assessment & Plan (1) ESRD (end stage renal disease) on dialysis: Plan: * Dialyzed yesterday without complication. Did require midodrine for BP support * Volume status and electrolyte balance are acceptable. No acute indication for HD today * Outpatient HD Rx: MWF 3h 45m on a 180 optiflux at Qb 450 Qd 800, 3 K, 2.5 calcium. EDW 85.3 kg (2) Anemia due to chronic kidney disease: Plan: * Chronic, stable. Maintained on Micera 150 mg Q2 weeks at HD. Venofer 100 mg provided with treatments. (3) Acute hyperkalemia: Plan: * Corrected. * Spironolactone has been stopped (4) Sepsis: Plan: * On Unasyn + azithromycin. Concern for primary lung infection. * Antihypertensives including metoprolol and minoxidil are being held. (5) Lobar pneumonia: Plan: * Influenza and COVID testing negative. (6) Sacral decubitus ulcer, stage IV: Plan: * Wound care notes reviewed. CT reviewed. Wound care. Not felt to be primary source of infection at this time. Admission and Anticipated Discharge Date Admission Date: September 20, 2022 Subjective Mr. Escobedo was evaluated in his hospital room this morning. He reports that his cough has improved. He is now breathing comfortably on RA. He voices no new medical concerns. Review of Systems Constitutional: no fever Eyes: no problem reported Ear, Nose, Mouth, Throat: no problem reported Respiratory: + cough; no dyspnea Cardiovascular: no chest pain Gastrointestinal: no abdominal pain and no diarrhea/loose stools Physical Exam Constitutional: not in distress Eyes: PERRL, conjunctivae normal, anicteric sclerae ENMT: external ear and nose normal, oropharynx normal Neck: trachea midline, no thyromegaly Respiratory: normal respiratory effort, lungs clear to auscultation Cardiovascular: RRR, no murmur, no edema Extremities: + AV fistula (+ bruit) Gastrointestinal (Abdomen): normal bowel sounds, soft, nontender, no hepatosplenomegaly Neurologic: Speech / Cognition: normal speech and normal cognition Results & Data ([facility]) Vital Signs (Past 12 Hours) Vital Signs Temp Pulse Pulse Resp BP Pulse Ox O2 Del Method 09/21/22 08:04 36.6 C 78 18 108/63 93 Room Air 09/21/22 04:23 36.6 C 70 16 103/50 L 97 Room Air 09/20/22 21:58 74 09/20/22 22:53 36.8 C 76 18 90/49 L 93 Room Air Laboratory Results Laboratory Tests 09/21/22 09/21/22 05:33 05:33 WBC 9.68 Hgb 9.3 L Hct 29.6 L Plt Count 170 Sodium 136 Potassium 4.9 Chloride 102 Carbon Dioxide 25 BUN 46 H Creatinine 3.69 H D Glucose 85 PG Care Time/CCT Total # of Minutes Spent Total Time Spent with Patient: Total time spent is greater than 50% in coordination of care (as documented) at patient's floor/unit and/or counseling patient: Coding Level of Care Code 85304 SUB INP/OBS CARE 3/50MIN Diagnoses ESRD (end stage renal disease) on dialysis N18.6; Z99.2 Anemia due to chronic kidney disease N18.9; D63.1 Acute hyperkalemia E87.5 Sepsis A41.9 Lobar pneumonia J18.1 Sacral decubitus ulcer, stage IV L89.154
--- NOTE | 2022-09-21 12:50 | Hospitalist Progress Note ---
Date of Service September 21, 2022 Assessment & Plan (1) Sepsis: Plan: Suspected pneumonia source Cefepime given in the ER for empiric coverage. Will switch antibiotics to Unasyn + azithromycin -he is growing multiresistant Pseudomonas (including to cefepime) in his wound before however suspected infection from his lungs rather than wound at this time. Lactate normal. Agree with discontinuing further IV fluids. Despite low blood pressure doubtful he will require vasopressors given normal lactate and no confusion or dizziness unless persistently mean arterial pressure less than 60. Will consider repeating lactate if his mean arterial pressure is consistently b elow 60 or if patient needs dialysis as he may not tolerate this without vasopressors at the present time. Blood pressure should improve by tomorrow with stopping his minoxidil, metoprolol and spironolactone - he took all of these this morning. Follow-up blood cultures (2) Acute hyperkalemia: Plan: Suspect combination of spironolactone and end-stage renal disease Currently unlikely to tolerate dialysis with hypotension therefore will give Lokelma 10 g PO Monitor potassium levels with low K diet (3) Lobar pneumonia: Plan: Flutter valve Incentive spirometer Antibiotics as above (4) Atrial fibrillation: Plan: Continue apixaban 2.5 mg p.o. twice daily (5) Hypertension: Plan: Stop metoprolol, minoxidil, spironolactone due to current hypotension (6) ESRD (end stage renal disease) on dialysis: Plan: Consult nephrology (7) Neurogenic bladder: Plan: Continue chronic Perry catheter, changed on day of admission (8) Sleep apnea: Plan: CPAP at bedtime (9) Osteomyelitis of sacrum: Plan: Chronic. Low suspicion this is causing current infection given definitive lobar pneumonia. Plan VTE prophylaxis -apixaban Diet -dialysis renal Disposition -admit to PCU Admission and Anticipated Discharge Date Admission Date: September 20, 2022 Subjective Patient reports that his shortness of breath and cough improving No fevers or chills reported P.o. intake improving Physical Exam Physical Exam: Head and ENT no thyroid enlargement trachea midline Cardiovascular S1-S2 are normal no S3 Lungs bilateral air entry decreased at bases with few scattered rhonchi Abdomen soft nondistended positive bowel sounds no rebound tenderness Extremity shows trace edema Neurologically no focal deficits Skin shows no rash no cyanosis Results & Data Results & Data ([facility]) Vital Signs (Past 12 Hours) Vital Signs Temp Pulse Pulse Resp BP Pulse Ox O2 Del Method 09/21/22 11:46 36.9 C 82 18 91/51 L 93 Room Air 09/21/22 07:00 Room Air 09/21/22 07:00 72 09/21/22 08:04 36.6 C 78 18 108/63 93 Room Air 09/21/22 04:23 36.6 C 70 16 103/50 L 97 Room Air Laboratory Results Short CBC 09/21/22 Range/Units 05:33 WBC 9.68 (4.8-10.8) K/ul Hgb 9.3 L (14.0-18.0) g/dl Hct 29.6 L (42.0-52.0) % Plt Count 170 (130-400) K/uL BMP 09/20/22 09/21/22 21:14 05:33 Sodium 137 136 Potassium 5.0 4.9 Chloride 102 102 Carbon Dioxide 25 25 BUN 42 H D 46 H Creatinine 3.27 H D 3.69 H D Glucose 95 85 Calcium 8.6 8.6 Urine 09/21/22 Range/Units Unknown Urine Color Yellow Urine Appearance Clear (Clear) Urine pH >= 9.0 H (4.5-7.5) Ur Specific [place] 1.014 (1.000-1.030) Urine Protein 3+ H (Negative) Urine Glucose (UA) 1+ H (Negative) PG Care Time/CCT Total # of Minutes Spent Total Time Spent with Patient: Total time spent is greater than 50% in coordination of care (as documented) at patient's floor/unit and/or counseling patient: Coding Level of Care Code 42955 SUB INP/OBS CARE 235MIN Diagnoses Sepsis A41.9 Acute hyperkalemia E87.5 Lobar pneumonia J18.1 Atrial fibrillation I48.2 Atrial fibrillation type: permanent Hypertension I10 Hypertension type: essential hypertension ESRD (end stage renal disease) on dialysis N18.6; Z99.2 Neurogenic bladder N31.9 Sleep apnea G47.30 Osteomyelitis of sacrum M46.28 (4) Atrial fibrillation Atrial fibrillation type: permanent Qualified Code(s): I48.2 - Chronic atrial fibrillation (5) Hypertension Hypertension type: essential hypertension Qualified Code(s): I10 - Essential (primary) hypertension
[2022-09-21] MEDS ORDERED: DOCUSATE SODIUM 100 MG CAP PO PRN (14:53)
[2022-09-21] MEDS ORDERED: DOCUSATE SODIUM 100 MG CAP PO ONE (14:56)
[2022-09-21] MEDS: CHOLECALCIFEROL 1,000 UNITS 25 MCG TAB PO SCH (20:11)
[2022-09-21] MEDS: NORTRIPTYLINE HCL 25 MG CAP PO SCH (20:11)
[2022-09-21] MEDS: GABAPENTIN 300 MG CAP PO SCH (20:11)
[2022-09-21] MEDS: ATORVASTATIN 20 MG TAB PO SCH (20:11)
[2022-09-22] MEDS: AMPICILLIN/SULBACTAM SOD 3,000 MG in 0.9 % SODIUM CHLORIDE 100 ML IV SCH ×2 (02:57→13:57)
[2022-09-22 06:03] LABS: Hematocrit (blood only) 30.1 % (42.0-52.0); Hemoglobin 9.4 g/dl (14.0-18.0); Mean Corpuscular Hemoglobin 30.7 pg (25.0-34.0); Mean Corpuscular Hgb Conc 31.2 g/dL (32.0-36.0); Mean Corpuscular Volume 98.4 fL (80.0-100.0); Mean Platelet Volume 8.8 fL (9.4-12.4); Platelet Count 183 K/uL (130-400); RDW Coefficient of Variation 15.8 % (11.5-14.5); RDW Standard Deviation 56.8 fL (36.4-46.3); Red Blood Count 3.06 M/uL (4.70-6.10); White Blood Count 8.61 K/ul (4.8-10.8)
[2022-09-22 06:19] LABS: Calcium 8.8 mg/dl (8.5-10.1); Potassium 5.1 mmol/L (3.5-5.1)
[2022-09-22 06:33] LABS: BUN Creatinine Ratio 12.3 (10-20); Creatinine Clr Calc Pharmacy 14.4 ml/min; Est GFR (African American) 12.7 ml/min; Est GFR (Non-African American) 10.9 ml/min
[2022-09-22] MEDS: SEVELAMER HCL 800 MG TABLET PO SCH ×3 (07:59→16:56)
[2022-09-22] MEDS: METOPROLOL SUCC 25MG EXT REL TAB PO SCH (08:18)
[2022-09-22] MEDS: APIXABAN 2.5 MG TAB PO SCH ×2 (08:18→21:43)
[2022-09-22] MEDS: AZITHROMYCIN 250 MG TAB PO SCH (08:18)
[2022-09-22] MEDS: NEPHROCAPS PO SCH (08:19)
--- NOTE | 2022-09-22 09:39 | Nephrology Progress Note ---
Date of Service September 22, 2022 Assessment & Plan (1) ESRD (end stage renal disease) on dialysis: Plan: * Volume status and electrolyte balance are acceptable. No acute indication for HD today * Outpatient HD Rx: MWF 3h 45m on a 180 optiflux at Qb 450 Qd 800, 3 K, 2.5 calcium. EDW 85.3 kg * Will schedule next HD for am (2) Anemia due to chronic kidney disease: Plan: * Chronic, stable. Maintained on Micera 150 mg Q2 weeks at HD. Venofer 100 mg provided with treatments. (3) Sepsis: Plan: * On Unasyn + azithromycin for pneumonia. Influenza and COVID testing were negative * Antihypertensives including metoprolol and minoxidil are being held. (4) Sacral decubitus ulcer, stage IV: Plan: * Wound vac in place Admission and Anticipated Discharge Date Admission Date: September 20, 2022 Subjective Mr. Escobedo was evaluated in his hospital room this morning. He reports that his cough has improved. He is breathing comfortably on RA. He voices no new medical concerns. Review of Systems Constitutional: no fever Eyes: no problem reported Ear, Nose, Mouth, Throat: no problem reported Respiratory: + cough; no dyspnea Cardiovascular: no chest pain Gastrointestinal: no abdominal pain and no diarrhea/loose stools Physical Exam Constitutional: not in distress Eyes: PERRL, conjunctivae normal, anicteric sclerae ENMT: external ear and nose normal, oropharynx normal Neck: trachea midline, no thyromegaly Respiratory: normal respiratory effort, lungs clear to auscultation Cardiovascular: RRR, no murmur, no edema Extremities: + AV fistula (+ bruit) Gastrointestinal (Abdomen): normal bowel sounds, soft, nontender, no hep atosplenomegaly Neurologic: Speech / Cognition: normal speech and normal cognition Results & Data ([facility]) Vital Signs (Past 12 Hours) Vital Signs Temp Pulse Pulse Pulse Resp BP Pulse Ox 09/22/22 07:00 09/22/22 07:00 73 09/22/22 07:00 36.7 C 78 18 107/62 94 09/22/22 03:48 36.9 C 80 16 125/73 95 09/21/22 23:10 36.8 C 86 18 104/66 93 09/21/22 22:07 80 O2 Del Method 09/22/22 07:00 CPAP 09/22/22 07:00 09/22/22 07:00 CPAP 09/22/22 03:48 CPAP 09/21/22 23:10 Room Air 09/21/22 22:07 Laboratory Results Laboratory Tests 09/21/22 09/22/22 09/22/22 Unknown 05:19 05:19 WBC 8.61 Hgb 9.4 L Hct 30.1 L Plt Count 183 Sodium 135 L Potassium 5.1 Chloride 103 Carbon Dioxide 23 BUN 59 H Creatinine 4.80 H* D Glucose 81 Calcium 8.8 Urine Color Yellow Urine pH >= 9.0 H Urine Protein 3+ H Urine Glucose (UA) 1+ H Urine Blood Trace H Urine RBC (Auto) 0-4 PG Care Time/CCT Total # of Minutes Spent Total Time Spent with Patient: Total time spent is greater than 50% in coordination of care (as documented) at patient's floor/unit and/or counseling patient: Coding Level of Care Code 14971 SUB INP/OBS CARE 3/50MIN Diagnoses ESRD (end stage renal disease) on dialysis N18.6; Z99.2 Anemia due to chronic kidney disease N18.9; D63.1 Sepsis A41.9 Sacral decubitus ulcer, stage IV L89.154
--- NOTE | 2022-09-22 18:22 | Hospitalist Progress Note ---
Date of Service September 22, 2022 Assessment & Plan (1) Sepsis: Plan: Suspected pneumonia source Cefepime given in the ER for empiric coverage. Will switch antibiotics to Unasyn + azithromycin -he is growing multiresistant Pseudomonas (including to cefepime) in his wound before however suspected infection from his lungs rather than wound at this time. Lactate normal. Agree with discontinuing further IV fluids. Despite low blood pressure doubtful he will require vasopressors given normal lactate and no confusion or dizziness unless persistently mean arterial pressure less than 60. Will consider repeating lactate if his mean arterial pressure is consistently b elow 60 or if patient needs dialysis as he may not tolerate this without vasopressors at the present time. Blood pressure should improve by tomorrow with stopping his minoxidil, metoprolol and spironolactone - he took all of these this morning. Follow-up blood cultures 09/22-patient presently maintained on IV antibiotic therapy with Unasyn and azithromycin and is improving Source of sepsis from lobar pneumonia and responding to present course of IV antibiotics Continue wound VAC for sacral decubitus Patient's hyperkalemia improved with low potassium diet potassium today 5.1 Continue flutter valve and IV antibiotics Continue present dose of Eliquis Plan discussed with patient in depth (2) Acute hyperkalemia: Plan: Suspect combination of spironolactone and end-stage renal disease Currently unlikely to tolerate dialysis with hypotension therefore will give Lokelma 10 g PO Monitor potassium levels with low K diet (3) Lobar pneumonia: Plan: Flutter valve Incentive spirometer Antibiotics as above (4) Atrial fibrillation: Plan: Continue apixaban 2.5 mg p.o. twice daily (5) Hypertension: Plan: Stop metoprolol, minoxidil, spironolactone due to current hypotension (6) ESRD (end stage renal disease) on dialysis: Plan: HD regimen as per nephrology (7) Neurogenic bladder: Plan: Continue chronic Perry catheter, changed on day of admission (8) Sleep apnea: Plan: CPAP at bedtime (9) Osteomyelitis of sacrum: Plan: Chronic. Low suspicion this is causing current infection given definitive lobar pneumonia. Plan Admission and Anticipated Discharge Date Admission Date: September 20, 2022 Subjective Patient reports of his breathing is improving. No chest pain reported Patient reports that his cough is improving with less expectoration Raises some concern with his wound VAC otherwise no dizziness reported. Physical Exam Physical Exam: Head and ENT no thyroid enlargement trachea midline Cardiovascular S1-S2 are normal no S3 Lungs bilateral air entry decreased at bases with few scattered rhonchi Abdomen soft nondistended positive bowel sounds no rebound tenderness Extremity shows trace edema Neurologically no focal deficits Skin has sacral decubitus and has wound VAC in place Results & Data Results & Data ([facility]) Vital Signs (Past 12 Hours) Vital Signs Temp Pulse Pulse Pulse Resp BP Pulse Ox 09/22/22 16:25 36.5 C 72 16 108/64 96 09/22/22 11:30 36.5 C 70 18 132/71 96 09/22/22 07:00 09/22/22 07:00 73 09/22/22 07:00 36.7 C 78 18 107/62 94 O2 Del Method 09/22/22 16:25 Room Air 09/22/22 11:30 Room Air 09/22/22 07:00 CPAP 09/22/22 07:00 09/22/22 07:00 CPAP Laboratory Results Short CBC 09/22/22 Range/Units 05:19 WBC 8.61 (4.8-10.8) K/ul Hgb 9.4 L (14.0-18.0) g/dl Hct 30.1 L (42.0-52.0) % Plt Count 183 (130-400) K/uL BMP 09/22/22 05:19 Sodium 135 L Potassium 5.1 Chloride 103 Carbon Dioxide 23 BUN 59 H Creatinine 4.80 H* D Glucose 81 Calcium 8.8 PG Care Time/CCT Total # of Minutes Spent Total Time Spent with Patient: Total time spent is greater than 50% in coordination of care (as documented) at patient's floor/unit and/or counseling patient: Coding Level of Care Code 77663 SUB INP/OBS CARE 2/35MIN Diagnoses Sepsis A41.9 Acute hyperkalemia E87.5 Lobar pneumonia J18.1 Atrial fibrillation I48.2 Atrial fibrillation type: permanent Hypertension I10 Hypertension type: essential hypertension ESRD (end stage renal disease) on dialysis N18.6; Z99.2 Neurogenic bladder N31.9 Sleep apnea G47.30 Osteomyelitis of sacrum M46.28 (4) Atrial fibrillation Atrial fibrillation type: permanent Qualified Code(s): I48.2 - Chronic atrial fibrillation (5) Hypertension Hypertension type: essential hypertension Qualified Code(s): I10 - Essential (primary) hypertension
[2022-09-22] MEDS: GABAPENTIN 300 MG CAP PO SCH (21:43)
[2022-09-22] MEDS: ATORVASTATIN 20 MG TAB PO SCH (21:43)
[2022-09-22] MEDS: CHOLECALCIFEROL 1,000 UNITS 25 MCG TAB PO SCH (21:43)
[2022-09-22] MEDS: NORTRIPTYLINE HCL 25 MG CAP PO SCH (21:43)
[2022-09-23] MEDS: AMPICILLIN/SULBACTAM SOD 3,000 MG in 0.9 % SODIUM CHLORIDE 100 ML IV SCH ×2 (02:50→14:05)
[2022-09-23 06:22] LABS: Hematocrit (blood only) 32.8 % (42.0-52.0); Hemoglobin 10.5 g/dl (14.0-18.0); Mean Corpuscular Volume 96.8 fL (80.0-100.0); Mean Platelet Volume 8.9 fL (9.4-12.4); Platelet Count 211 K/uL (130-400); RDW Coefficient of Variation 15.6 % (11.5-14.5); RDW Standard Deviation 55.4 fL (36.4-46.3); Red Blood Count 3.39 M/uL (4.70-6.10); White Blood Count 11.94 K/ul (4.8-10.8)
[2022-09-23 06:42] LABS: BUN Creatinine Ratio 11.7 (10-20); Calcium 9.4 mg/dl (8.5-10.1); Creatinine Clr Calc Pharmacy 12.2 ml/min; Est GFR (African American) 10.4 ml/min
[2022-09-23] MEDS ORDERED: EPOETIN ALFA 10,000 UNITS/ML VIAL IV ONE (07:00)
[2022-09-23] MEDS ORDERED: SODIUM CHLORIDE 0.9% 1000ML 1,000 ML IV PRN (07:00)
[2022-09-23] MEDS: SEVELAMER HCL 800 MG TABLET PO SCH ×3 (08:08→17:14)
[2022-09-23] MEDS: APIXABAN 2.5 MG TAB PO SCH ×2 (08:08→20:52)
[2022-09-23] MEDS: NEPHROCAPS PO SCH (08:08)
[2022-09-23] MEDS: AZITHROMYCIN 250 MG TAB PO SCH (08:08)
[2022-09-23] MEDS: METOPROLOL SUCC 25MG EXT REL TAB PO SCH (08:09)
--- NOTE | 2022-09-23 08:16 | Hospitalist Progress Note ---
Date of Service September 23, 2022 Assessment & Plan (1) Sepsis: Plan: Suspected pneumonia source Cefepime given in the ER for empiric coverage. 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 - Continue to follow blood cultures - Plan to transition to Augmentin for d/c - Will complete 3 day coarse of 500mg Azithromycin 09/23 - PT/OT ordered (2) Acute hyperkalemia: Plan: Suspect combination of spironolactone and end-stage renal disease - Dialysis today - Continue to trend BMP -low K diet (3) Lobar pneumonia: Plan: Flutter valve Incentive spirometer Antibiotics as above (4) Atrial fibrillation: Plan: Continue apixaban 2.5 mg p.o. twice daily (5) Hypertension: Plan: Holding metoprolol, minoxidil, spironolactone due to hypotension (6) ESRD (end stage renal disease) on dialysis: Plan: HD regimen as per nephrology - HD completed today (7) Neurogenic bladder: Plan: Continue chronic Perry catheter, changed on day of admission (8) Sleep apnea: Plan: CPAP at bedtime (9) Osteomyelitis of sacrum: Plan: Chronic. Low suspicion this is causing current infection given definitive lobar pneumonia. - Wound vac in place - Wound care is following Plan Admission and Anticipated Discharge Date Admission Date: September 20, 2022 Supervising Physician Co-Signing Physician Notes I personally examined the patient and verified all [place] points of history and e xam, discussed case, and agree with decision making with Dr Pandey feeling much better, d/w pt and , updated and answered all questions to the best of my ability vitals noted nad heent nc at mmm breathing unlabored no accessory muscles good effort skin no rashes no pallor or icterus weakness due to sepsis - sepsis from CAP - ipmroving. continue unasyn - anticipate transition to augmentin. as weakness improves once he can transfer well enough to be safe at home - likely can be dc'd home w . hyperkalemia - addressed at HD. otherwise as above Subjective Guanaco is doing well. In room with . States he is feeling significantly better than when he came in. Denies fever/chills, cough, dyspnea. Review of Systems Review of Systems: As per above Physical Exam Physical Exam: Constitutional: well-appearing, no acute distress HEENT: NCAT, no conjunctival injection, neck supple Cardio: Well perfused Resp: normal respiratory effort, no increased work of breathing Neuro: alert, oriented, no focal neurologic deficit appreciated Results & Data Results & Data ([facility]) Vital Signs (Past 12 Hours) Vital Signs Temp Pulse Pulse Pulse Resp BP Pulse Ox 09/23/22 07:59 98 H 09/23/22 07:46 37.1 C 92 H 18 139/83 95 09/22/22 22:00 92 H 09/23/22 02:56 36.9 C 88 20 158/92 H 95 09/22/22 21:40 09/22/22 22:51 36.9 C 92 H 18 146/77 H 93 O2 Del Method 09/23/22 07:59 09/23/22 07:46 Room Air 09/22/22 22:00 09/23/22 02:56 BiPAP 09/22/22 21:40 Room Air 09/22/22 22:51 Room Air Resident Activity Tracking Resident Involvement: Resident Care Provided Care Provided: Adult Hospital Medicine (4) Atrial fibrillation Atrial fibrillation type: permanent Qualified Code(s): I48.2 - Chronic atrial fibrillation (5) Hypertension Hypertension type: essential hypertension Qualified Code(s): I10 - Essential (primary) hypertension
--- NOTE | 2022-09-23 08:47 | Nephrology Progress Note ---
Date of Service September 23, 2022 Assessment & Plan (1) ESRD (end stage renal disease) on dialysis: Plan: * Will provide HD today. Orders have been placed in EMR and HD RN notified. Will use 2K bath today due to relative hyperkalemia * Outpatient HD Rx: MWF 3h 45m on a 180 optiflux at Qb 450 Qd 800, 3 K, 2.5 calcium. EDW 85.3 kg (2) Anemia due to chronic kidney disease: Plan: * Will provide Epogen 10,000 units IV w/ HD today (3) Sepsis: Plan: * On Unasyn + azithromycin for pneumonia. Influenza and COVID testing were nega tive * Antihypertensives including metoprolol and minoxidil are being held. (4) Sacral decubitus ulcer, stage IV: Plan: * Wound vac in place Admission and Anticipated Discharge Date Admission Date: September 20, 2022 Subjective Mr. Escobedo was evaluated in his hospital room this morning. He reports that his cough has improved. He is breathing comfortably on RA. He voices no new medical concerns. Review of Systems Constitutional: no fever Eyes: no problem reported Ear, Nose, Mouth, Throat: no problem reported Respiratory: + cough; no dyspnea Cardiovascular: no chest pain Gastrointestinal: no abdominal pain and no diarrhea/loose stools Physical Exam Constitutional: not in distress Eyes: PERRL, conjunctivae normal, anicteric sclerae ENMT: external ear and nose normal, oropharynx normal Neck: trachea midline, no thyromegaly Respiratory: normal respiratory effort, lungs clear to auscultation Cardiovascular: RRR, no murmur, no edema Extremities: + AV fistula (+ bruit) Gastrointestinal (Abdomen): normal bowel sounds, soft, nontender, no hepatosplenomegaly Neurologic: Speech / Cognition: normal speech and normal cognition Results & Data ([facility]) Vital Signs (Past 12 Hours) Vital Signs Temp Pulse Pulse Pulse Resp BP Pulse Ox 09/23/22 07:59 98 H 09/23/22 07:46 37.1 C 92 H 18 139/83 95 09/22/22 22:00 92 H 09/23/22 02:56 36.9 C 88 20 158/92 H 95 09/22/22 21:40 09/22/22 22:51 36.9 C 92 H 18 146/77 H 93 O2 Del Method 09/23/22 07:59 09/23/22 07:46 Room Air 09/22/22 22:00 09/23/22 02:56 BiPAP 09/22/22 21:40 Room Air 09/22/22 22:51 Room Air Laboratory Results Laboratory Tests 09/23/22 09/23/22 05:24 05:24 WBC 11.94 H Hgb 10.5 L Hct 32.8 L Plt Count 211 Sodium 132 L Potassium 6.0 H Chloride 101 Carbon Dioxide 18 L BUN 66 H Creatinine 5.64 H* D Glucose 73 PG Care Time/CCT Total # of Minutes Spent Total Time Spent with Patient: Total time spent is greater than 50% in coordination of care (as documented) at patient's floor/unit and/or counseling patient: Coding Level of Care Code 53282 SUB INP/OBS CARE 3/50MIN Diagnoses ESRD (end stage renal disease) on dialysis N18.6; Z99.2 Anemia due to chronic kidney disease N18.9; D63.1 Sepsis A41.9 Sacral decubitus ulcer, stage IV L89.154
[2022-09-23] MEDS: oxyCODONE/ACETAMINOPHEN 5mg/325mg TAB PO PRN (14:12)
--- NOTE | 2022-09-23 19:13 | Billing Data ---
Date of Service September 23, 2022 Coding Level of Care Code 44618 SUB INP/OBS CARE
[2022-09-23] MEDS: ATORVASTATIN 20 MG TAB PO SCH (20:52)
[2022-09-23] MEDS: CHOLECALCIFEROL 1,000 UNITS 25 MCG TAB PO SCH (20:52)
[2022-09-23] MEDS: GABAPENTIN 300 MG CAP PO SCH (20:53)
[2022-09-23] MEDS: NORTRIPTYLINE HCL 25 MG CAP PO SCH (20:53)
[2022-09-24] MEDS: AMPICILLIN/SULBACTAM SOD 3,000 MG in 0.9 % SODIUM CHLORIDE 100 ML IV SCH ×2 (02:59→14:21)
[2022-09-24 06:17] LABS: Hematocrit (blood only) 30.8 % (42.0-52.0); Hemoglobin 9.6 g/dl (14.0-18.0); Mean Corpuscular Hemoglobin 30.4 pg (25.0-34.0); Mean Corpuscular Hgb Conc 31.2 g/dL (32.0-36.0); Mean Corpuscular Volume 97.5 fL (80.0-100.0); Mean Platelet Volume 8.4 fL (9.4-12.4); Platelet Count 190 K/uL (130-400); RDW Coefficient of Variation 15.6 % (11.5-14.5); RDW Standard Deviation 55.9 fL (36.4-46.3); Red Blood Count 3.16 M/uL (4.70-6.10); White Blood Count 7.69 K/ul (4.8-10.8)
[2022-09-24 06:37] LABS: BUN Creatinine Ratio 8.4 (10-20); Calcium 8.8 mg/dl (8.5-10.1); Creatinine Clr Calc Pharmacy 16.6 ml/min; Est GFR (African American) 15.1 ml/min; Potassium 4.6 mmol/L (3.5-5.1)
--- NOTE | 2022-09-24 08:48 | Nephrology Progress Note ---
Date of Service September 24, 2022 Assessment & Plan (1) ESRD (end stage renal disease) on dialysis: Plan: * Volume status and electrolyte balance are acceptable. No acute indication for HD today. Will plan next HD for am * Outpatient HD Rx: MWF 3h 45m on a 180 optiflux at Qb 450 Qd 800, 3 K, 2.5 calcium. EDW 85.3 kg (2) Anemia due to chronic kidney disease: Plan: * Epogen 10,000 units IV administered w/ HD 09/23/22 (3) Sepsis: Plan: * On Unasyn + azithromycin for pneumonia. Influenza and COVID testing were negative * Antihypertensives including metoprolol and minoxidil are being held. (4) Sacral decubitus ulcer, stage IV: Plan: * Wound vac in place * Difficult situation. Not a candidate for flap due to inability to offload weight. Continues to follow at wound clinic. Should be using a ROHO cushion to alleviate pressure Admission and Anticipated Discharge Date Admission Date: September 20, 2022 Subjective Mr. Escobedo was evaluated in his hospital room this morning. He was breathing comfortably on RA. He voiced no new medical concerns. Review of Systems Constitutional: no fever Eyes: no problem reported Ear, Nose, Mouth, Throat: no problem reported Respiratory: no cough and no dyspnea Cardiovascular: no chest pain Gastrointestinal: no abdominal pain and no diarrhea/loose stools Physical Exam Constitutional: not in distress Eyes: PERRL, conjunctivae normal, anicteric sclerae ENMT: external ear and nose normal, oropharynx normal Neck: trachea midline, no thyromegaly Respiratory: normal respiratory effort, lungs clear to auscultation Cardiovascular: RRR, no murmur, no edema Extremities: + AV fistula (+ bruit) Gastrointestinal (Abdomen): normal bowel sounds, soft, nontender, no hepatosplenomegaly Neurologic: Speech / Cognition: normal speech and normal cognition Results & Data ([facility]) Vital Signs (Past 12 Hours) Vital Signs Temp Pulse Pulse Pulse Resp BP Pulse Ox 09/24/22 07:56 79 09/24/22 07:24 36.8 C 79 18 124/72 95 09/24/22 03:32 36.5 C 82 18 122/53 L 95 09/23/22 22:02 78 09/23/22 23:29 36.8 C 73 18 146/71 H 97 O2 Del Method 09/24/22 07:56 09/24/22 07:24 Room Air 09/24/22 03:32 Room Air 09/23/22 22:02 09/23/22 23:29 Room Air Laboratory Results Laboratory Tests 09/24/22 09/24/22 05:28 05:28 WBC 7.69 Hgb 9.6 L Hct 30.8 L Plt Count 190 Sodium 136 Potassium 4.6 D Chloride 104 Carbon Dioxide 23 BUN 35 H D Creatinine 4.15 H D Glucose 82 PG Care Time/CCT Total # of Minutes Spent Total Time Spent with Patient: Total time spent is greater than 50% in coordination of care (as documented) at patient's floor/unit and/or counseling patient: Coding Level of Care Code 19019 SUB INP/OBS CARE 3/50MIN Diagnoses ESRD (end stage renal disease) on dialysis N18.6; Z99.2 Anemia due to chronic kidney disease N18.9; D63.1 Sepsis A41.9 Sacral decubitus ulcer, stage IV L89.154
[2022-09-24] MEDS: APIXABAN 2.5 MG TAB PO SCH ×2 (09:24→19:34)
[2022-09-24] MEDS: METOPROLOL SUCC 25MG EXT REL TAB PO SCH (09:24)
[2022-09-24] MEDS: NEPHROCAPS PO SCH (09:24)
[2022-09-24] MEDS: SEVELAMER HCL 800 MG TABLET PO SCH ×3 (09:24→16:44)
--- NOTE | 2022-09-24 10:28 | Hospitalist Progress Note ---
Date of Service September 24, 2022 Assessment & Plan (1) Sepsis: Plan: Suspected pneumonia source Cefepime given in the ER for empiric coverage. 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 - Blood cultures negative after 48 hours - Plan to transition to Augmentin for d/c; today is day 6. Plan for a total of 7 days. - Will complete 3 day coarse of 500mg Azithromycin 09/23 - PT/OT ordered (2) Acute hyperkalemia: Plan: Suspect combination of spironolactone and end-stage renal disease - Dialysis MWF - Continue to trend BMP -low K diet (3) Lobar pneumonia: Plan: Flutter valve Incentive spirometer Antibiotics as above (4) Atrial fibrillation: Plan: Continue apixaban 2.5 mg p.o. twice daily (5) Hypertension: Plan: Holding metoprolol, minoxidil, spironolactone due to hypotension (6) ESRD (end stage renal disease) on dialysis: Plan: HD regimen as per nephrology - Plan for HD tomorrow (7) Neurogenic bladder: Plan: Continue chronic Perry catheter, changed on day of admission (8) Sleep apnea: Plan: CPAP at bedtime (9) Osteomyelitis of sacrum: Plan: Chronic. Low suspicion this is causing current infection given definitive lobar pneumonia. - Wound vac in place, plan to change on 09/26 prior to dc - Wound care is following Plan Admission and Anticipated Discharge Date Admission Date: September 20, 2022 Supervising Physician Co-Signing Physician Notes I personally examined the patient and verified all [place] points of history and exam, discussed case, and agree with decision making with Dr Pandey Overall feeling reasonably okay. Still weakfeels like he would probably do well with additional assistive equipment at home. Also notes difficulties with transportation. Feels like he needs podiatry follow-up for his right footnot able to get in for 2 months. vitals noted nad heent nc at mmm breathing unlabored no accessory muscles good effort skin no rashes no pallor or icterus. Feet without any open ulcers, does have dry skin, right foot first and second toenails fairly thickened and corrugated, second toenail is curling towards toe some, but no areas of ulceration. weakness due to sepsis - sepsis from CAP -improving. continue unasyn - anticipate transition to augmentin. Probably home in the next few days once extra assistive devices can at least be looked into, and he is gotten a little bit stronger. otherwise as above Subjective Doing well this morning without complainant. Does note that he had some night sweats over night, but no recorded fevers. Denies cough, chest pain, dyspnea. Eating and drinking normally Review of Systems Review of Systems: As per above Physical Exam Physical Exam: Constitutional: well-appearing, no acute distress HEENT: NCAT, no conjunctival injection CV: regular rhythm, no murmur appreciated, extremities well-perfused, no LE edema Resp: CTABL, no wheezes/rales/rhonchi appreciated, no increased work of breathing Skin: warm, dry, no rash appreciated. Wound vac in place. Neuro: alert, oriented, no focal neurologic deficit appreciated Results & Data Results & Data ([facility]) Vital Signs (Past 12 Hours) Vital Signs Temp Pulse Pulse Pulse Resp BP Pulse Ox 09/24/22 07:56 79 09/24/22 07:24 36.8 C 79 18 124/72 95 09/24/22 03:32 36.5 C 82 18 122/53 L 95 09/23/22 23:29 36.8 C 73 18 146/71 H 97 O2 Del Method 09/24/22 07:56 09/24/22 07:24 Room Air 09/24/22 03:32 Room Air 09/23/22 23:29 Room Air Resident Activity Tracking Resident Involvement: Resident Care Provided Care Provided: Adult Hospital Medicine (4) Atrial fibrillation Atrial fibrillation type: permanent Qualified Code(s): I48.2 - Chronic atrial fibrillation (5) Hypertension Hypertension type: essential hypertension Qualified Code(s): I10 - Essential (primary) hypertension
--- NOTE | 2022-09-24 19:32 | Billing Data ---
Date of Service September 24, 2022 Coding Level of Care Code 18865 SUB INP/OBS CARE
[2022-09-24] MEDS: NORTRIPTYLINE HCL 25 MG CAP PO SCH (19:34)
[2022-09-24] MEDS: ATORVASTATIN 20 MG TAB PO SCH (19:34)
[2022-09-24] MEDS: CHOLECALCIFEROL 1,000 UNITS 25 MCG TAB PO SCH (19:35)
[2022-09-24] MEDS: GABAPENTIN 300 MG CAP PO SCH (19:35)
[2022-09-25] MEDS: AMPICILLIN/SULBACTAM SOD 3,000 MG in 0.9 % SODIUM CHLORIDE 100 ML IV SCH (02:06)
[2022-09-25 06:34] LABS: Basophils % (auto) 1.3 %; Eosinophils # (auto) 0.95 K/uL (0-0.50); Hematocrit (blood only) 30.5 % (42.0-52.0); Hemoglobin 9.8 g/dl (14.0-18.0); Immature Granulocytes # (auto) 0.03 K/uL (0.01-0.20); Immature Granulocytes % (auto) 0.4 %; Lymphocytes # (auto) 1.04 K/uL (1.2-3.4); Lymphocytes % (auto) 13.1 %; Mean Corpuscular Hemoglobin 30.8 pg (25.0-34.0); Mean Corpuscular Hgb Conc 32.1 g/dL (32.0-36.0); Mean Corpuscular Volume 95.9 fL (80.0-100.0); Mean Platelet Volume 8.6 fL (9.4-12.4); Monocytes # (auto) 0.81 K/uL (0.11-0.59); Monocytes % (auto) 10.2 %; Neutrophils # (auto) 5.01 K/uL (1.40-6.50); Platelet Count 194 K/uL (130-400); RDW Coefficient of Variation 15.3 % (11.5-14.5); RDW Standard Deviation 54.6 fL (36.4-46.3); Red Blood Count 3.18 M/uL (4.70-6.10); White Blood Count 7.94 K/ul (4.8-10.8)
[2022-09-25 06:57] LABS: BUN Creatinine Ratio 9.1 (10-20); Creatinine Clr Calc Pharmacy 13.7 ml/min; Est GFR (African American) 11.9 ml/min; Est GFR (Non-African American) 10.3 ml/min
[2022-09-25] MEDS ORDERED: EPOETIN ALFA 10,000 UNITS/ML VIAL IV ONE (07:00)
[2022-09-25] MEDS ORDERED: SODIUM CHLORIDE 0.9% 1000ML 1,000 ML IV PRN (07:00)
[2022-09-25] MEDS: SEVELAMER HCL 800 MG TABLET PO SCH ×3 (08:02→16:57)
[2022-09-25] MEDS: NEPHROCAPS PO SCH (08:02)
[2022-09-25] MEDS: APIXABAN 2.5 MG TAB PO SCH ×2 (08:02→21:09)
[2022-09-25] MEDS: METOPROLOL SUCC 25MG EXT REL TAB PO SCH (08:02)
--- NOTE | 2022-09-25 08:03 | Hospitalist Progress Note ---
Date of Service September 25, 2022 Assessment & Plan (1) Sepsis: Plan: Suspected pneumonia source Cefepime given in the ER for empiric coverage. 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 - Blood cultures negative after 48 hours - Plan to transition to Augmentin; today is day 6. Plan for a total of 7 days. - Will complete 3 day coarse of 500mg Azithromycin 09/23 - PT/OT ordered (2) Acute hyperkalemia: Plan: Suspect combination of spironolactone and end-stage renal disease - Dialysis MWF - Continue to trend BMP -low K diet (3) Lobar pneumonia: Plan: Flutter valve Incentive spirometer Antibiotics as above (4) Atrial fibrillation: Plan: Continue apixaban 2.5 mg p.o. twice daily (5) Hypertension: Plan: Holding metoprolol, minoxidil, spironolactone due to hypotension (6) ESRD (end stage renal disease) on dialysis: Plan: HD regimen as per nephrology -HD today (7) Neurogenic bladder: Plan: Continue chronic Perry catheter, changed on day of admission (8) Sleep apnea: Plan: CPAP at bedtime (9) Osteomyelitis of sacrum: Plan: Chronic. Low suspicion this is causing current infection given definitive lobar pneumonia. - Wound vac in place, plan to change on 09/26 prior to dc - Wound care is following Plan Admission and Anticipated Discharge Date Admission Date: September 20, 2022 Supervising Physician Co-Signing Physician Notes I personally examined the patient and verified all [place] points of history and exam, discussed case, and agree with decision making with Dr Pandey feeling alright. no new complaints. vitals noted nad heent nc at mmm breathing unlabored no accessory muscles good effort skin no rashes no pallor or icterus. weakness due to sepsis - sepsis from CAP -improving. transition to augmentin to complete course of therapy. anticipate home tomorrow. gave Rx to case management for assistive device recommended by PT. wound eval / vac chnage tomorrow otherwise as above Subjective Guanaco is doing well this morning. Feeling well. Denies cough, dyspnea, chest pain. Good PO intake. Review of Systems Review of Systems: As per above Physical Exam Physical Exam: Constitutional: well-appearing, no acute distress HEENT: NCAT, no conjunctival injection CV: regular rhythm, no murmur appreciated, extremities well-perfused, no LE edema Resp: CTABL, no wheezes/rales/rhonchi appreciated, no increased work of breathing Skin: warm, dry, no rash appreciated. Wound vac in place. Neuro: alert, oriented Results & Data Results & Data ([facility]) Vital Signs (Past 12 Hours) Vital Signs Temp Pulse Pulse Pulse Resp BP Pulse Ox 09/25/22 07:00 74 09/25/22 03:45 36.6 C 80 18 141/83 H 97 09/24/22 22:56 75 09/24/22 22:36 36.4 C L 78 20 153/82 H 94 O2 Del Method 09/25/22 07:00 09/25/22 03:45 BiPAP 09/24/22 22:56 09/24/22 22:36 Room Air Resident Activity Tracking Resident Involvement: Resident Care Provided Care Provided: Adult Hospital Medicine (4) Atrial fibrillation Atrial fibrillation type: permanent Qualified Code(s): I48.2 - Chronic atrial fibrillation (5) Hypertension Hypertension type: essential hypertension Qualified Code(s): I10 - Essential (primary) hypertension
--- NOTE | 2022-09-25 08:48 | Nephrology Progress Note ---
Date of Service September 25, 2022 Assessment & Plan (1) ESRD (end stage renal disease) on dialysis: Plan: * HD today. Orders have been entered into EMR and HD RN notified * Outpatient HD Rx: MWF 3h 45m on a 180 optiflux at Qb 450 Qd 800, 3 K, 2.5 calcium. EDW 85.3 kg (2) Anemia due to chronic kidney disease: Plan: * Epogen 10,000 units IV administered w/ HD 09/23/22 (3) Sepsis: Plan: * On Unasyn + azithromycin for pneumonia. Influenza and COVID testing were negative * Antihypertensives including metoprolol and minoxidil are being held. (4) Sacral decubitus ulcer, stage IV: Plan: * Wound vac in place * Difficult situation. Not a candidate for flap due to inability to offload weight. Continues to follow at wound clinic. Should be using a ROHO cushion to alleviate pressure Admission and Anticipated Discharge Date Admission Date: September 20, 2022 Subjective Mr. Escobedo was evaluated in his hospital room this morning. He was breathing comfortably on RA. He voiced no new medical concerns. Review of Systems Constitutional: no fever Eyes: no problem reported Ear, Nose, Mouth, Throat: no problem reported Respiratory: no cough and no dyspnea Cardiovascular: no chest pain Gastrointestinal: no abdominal pain and no diarrhea/loose stools Physical Exam 2 Constitutional: not in distress Eyes: PERRL, conjunctivae normal, anicteric sclerae ENMT: external ear and nose normal, oropharynx normal Neck: trachea midline, no thyromegaly Respiratory: normal respiratory effort, lungs clear to auscultation Cardiovascular: RRR, no murmur, no edema Extremities: + AV fistula (+ bruit) Gastrointestinal (Abdomen): normal bowel sounds, soft, nontender, no hepatosplenomegaly Neurologic: Speech / Cognition: normal speech and normal cognition Results & Data ([facility]) Vital Signs (Past 12 Hours) Vital Signs Temp Pulse Pulse Pulse Resp BP Pulse Ox 09/25/22 08:25 36.4 C L 80 18 152/84 H 99 09/25/22 07:00 74 09/25/22 03:45 36.6 C 80 18 141/83 H 97 09/24/22 22:56 75 09/24/22 22:36 36.4 C L 78 20 153/82 H 94 O2 Del Method 09/25/22 08:25 CPAP 09/25/22 07:00 09/25/22 03:45 BiPAP 09/24/22 22:56 09/24/22 22:36 Room Air Laboratory Results Laboratory Tests 09/25/22 09/25/22 05:30 05:30 WBC 7.94 Hgb 9.8 L Hct 30.5 L Plt Count 194 Sodium 135 L Potassium 5.0 Chloride 104 Carbon Dioxide 21 BUN 46 H Creatinine 5.05 H* D Glucose 75 Calcium 9.0 PG Care Time/CCT Total # of Minutes Spent Total Time Spent with Patient: Total time spent is greater than 50% in coordination of care (as documented) at patient's floor/unit and/or counseling patient: Coding Level of Care Code 02242 SUB INP/OBS CARE 3/50MIN Diagnoses ESRD (end stage renal disease) on dialysis N18.6; Z99.2 Anemia due to chronic kidney disease N18.9; D63.1 Sepsis A41.9 Sacral decubitus ulcer, stage IV L89.154
[2022-09-25] MEDS: AMOXICILLIN/CLAVULANATE 500 MG TAB PO SCH (13:17)
--- NOTE | 2022-09-25 20:24 | Billing Data ---
Date of Service September 25, 2022 Coding Level of Care Code 60838 SUB INP/OBS CARE
[2022-09-25] MEDS: GABAPENTIN 300 MG CAP PO SCH (21:08)
[2022-09-25] MEDS: ATORVASTATIN 20 MG TAB PO SCH (21:09)
[2022-09-25] MEDS: CHOLECALCIFEROL 1,000 UNITS 25 MCG TAB PO SCH (21:09)
[2022-09-25] MEDS: NORTRIPTYLINE HCL 25 MG CAP PO SCH (21:09)
[2022-09-26 06:44] LABS: Hemoglobin 9.5 g/dl (14.0-18.0); Mean Corpuscular Hemoglobin 30.6 pg (25.0-34.0); Mean Corpuscular Hgb Conc 31.7 g/dL (32.0-36.0); Mean Corpuscular Volume 96.8 fL (80.0-100.0); Mean Platelet Volume 8.9 fL (9.4-12.4); Platelet Count 206 K/uL (130-400); RDW Coefficient of Variation 15.3 % (11.5-14.5); RDW Standard Deviation 54.3 fL (36.4-46.3); White Blood Count 6.57 K/ul (4.8-10.8)
[2022-09-26 06:58] LABS: BUN Creatinine Ratio 9.5 (10-20); Calcium 8.9 mg/dl (8.5-10.1); Creatinine Clr Calc Pharmacy 19.8 ml/min; Est GFR (African American) 18.7 ml/min; Est GFR (Non-African American) 16.1 ml/min; Potassium 4.2 mmol/L (3.5-5.1)
[2022-09-26] MEDS: SEVELAMER HCL 800 MG TABLET PO SCH ×2 (08:32→12:15)
[2022-09-26] MEDS: APIXABAN 2.5 MG TAB PO SCH (08:32)
[2022-09-26] MEDS: METOPROLOL SUCC 25MG EXT REL TAB PO SCH (08:32)
[2022-09-26] MEDS: NEPHROCAPS PO SCH (08:33)
--- NOTE | 2022-09-26 09:00 | Nephrology Progress Note ---
Date of Service September 26, 2022 Assessment & Plan (1) ESRD (end stage renal disease) on dialysis: Plan: * Volume status and electrolyte balance are acceptable. No acute indication for HD today * Outpatient HD Rx: MWF 3h 45m on a 180 optiflux at Qb 450 Qd 800, 3 K, 2.5 calcium. EDW 85.3 kg * If discharge is anticipated, please have patient resume outpatient HD tomorrow at [facility] (2) Anemia due to chronic kidney disease: Plan: * Epogen 10,000 units IV administered w/ HD 09/23/22 (3) Sepsis: Plan: * On po Augmentin for pneumonia. Influenza and COVID testing were negative * Antihypertensives including metoprolol and minoxidil are being held. (4) Sacral decubitus ulcer, stage IV: Plan: * Wound vac in place * Difficult situation. Not a candidate for flap due to inability to offload weight. Continues to follow at wound clinic. Should be using a ROHO cushion to alleviate pressure. Discussed in detail w/ patient this am Admission and Anticipated Discharge Date Admission Date: September 20, 2022 Subjective Mr. Escobedo was evaluated in his hospital room this morning. He was breathing comfortably on RA. He voiced no new medical concerns. Review of Systems Constitutional: no fever Eyes: no problem reported Ear, Nose, Mouth, Throat: no problem reported Respiratory: no cough and no dyspnea Cardiovascular: no chest pain Gastrointestinal: no abdominal pain and no diarrhea/loose stools Physical Exam Constitutional: not in distress Eyes: PERRL, conjunctivae normal, anicteric sclerae ENMT: external ear and nose normal, oropharynx normal Neck: trachea midline, no thyromegaly Respiratory: normal respiratory effort, lungs clear to auscultation Cardiovascular: RRR, no murmur, no edema Extremities: + AV fistula (+ bruit) Gastrointestinal (Abdomen): normal bowel sounds, soft, nontender, no hepatosplenomegaly Neurologic: Speech / Cognition: normal speech and normal cognition Results & Data ([facility]) Vital Signs (Past 12 Hours) Vital Signs Temp Pulse Resp BP Pulse Ox O2 Del Method 09/26/22 07:48 36.5 C 77 18 151/80 H 92 Room Air 09/26/22 03:34 36.4 C L 65 18 133/77 95 BiPAP 09/25/22 23:08 36.7 C 83 20 163/89 H 95 BiPAP Laboratory Results Laboratory Tests 09/26/22 09/26/22 05:32 05:32 WBC 6.57 Hgb 9.5 L Hct 30.0 L Plt Count 206 Sodium 136 Potassium 4.2 Chloride 103 Carbon Dioxide 24 BUN 33 H Creatinine 3.48 H D Glucose 76 PG Care Time/CCT Total # of Minutes Spent Total Time Spent with Patient: Total time spent is greater than 50% in coordination of care (as documented) at patient's floor/unit and/or counseling patient: Coding Level of Care Code 13067 SUB INP/OBS CARE 3/50MIN Diagnoses ESRD (end stage renal disease) on dialysis N18.6; Z99.2 Anemia due to chronic kidney disease N18.9; D63.1 Sepsis A41.9 Sacral decubitus ulcer, stage IV L89.154
[2022-09-26] MEDS: AMOXICILLIN/CLAVULANATE 500 MG TAB PO SCH (13:40)
--- NOTE | 2022-09-26 14:07 | Discharge Summary ---
Date of Service September 26, 2022 Admission HPI Per Admitting Provider Guanaco Escobedo is a 77-year-old male with end-stage renal disease on dialysis and chronic sacral ulcer with wound VAC who presents to the ER via ALS with increased weakness, cough, chills, sweats. Symptoms started last night. [place] well yesterday and before this. Cough non-productive. No nasal congestion, sinus pain, chest pain, diarrhea, abdominal pain, nausea or vomiting. Reports his back wound has been improving. Patient receives dialysis on Friday, Friday and Fridays. Did not get dialysis today but had this on Friday without issues. Baseline mobility is getting out of his bed to wheelchair (using counter balance) and attempted to stand daily. 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 He has a chronic Perry catheter. Principal Diagnosis Pneumonia Discharge Exam Constitutional: well-appearing, no acute distress HEENT: NCAT, no conjunctival injection CV: regular rhythm, no murmur appreciated, extremities well-perfused, no LE edema Resp: CTABL, no wheezes/rales/rhonchi appreciated, no increased work of breathing Skin: warm, dry, no rash appreciated. Wound vac in place. Neuro: alert, oriented Discharge Data Allergies Allergy/AdvReac Type Severity Reaction Status Date / Time tetracycline Allergy Intermediate HIVES Verified 09/20/22 11:02 morphine AdvReac Intermediate Nausea Verified 09/20/22 11:02 Consultations 09/20/22 11:23 ED Decision to Admit Stat 09/20/22 12:09 Consult Nephrology Routine Ordered Studies 09/20/22 10:56 CT abd pelvis wo con Stat Laboratory Results WBC 6.57 K/ul (4.8-10.8) 09/26/22 05:32 RBC 3.10 M/uL (4.70-6.10) L 09/26/22 05:32 Hgb 9.5 g/dl (14.0-18.0) L 09/26/22 05:32 Hct 30.0 % (42.0-52.0) L 09/26/22 05:32 MCV 96.8 fL (80.0-100.0) 09/26/22 05:32 MCH 30.6 pg (25.0-34.0) 09/26/22 05:32 MCHC 31.7 g/dL (32.0-36.0) L 09/26/22 05:32 RDW Std Deviation 54.3 fL (36.4-46.3) H 09/26/22 05:32 RDW Coeff of Hector 15.3 % (11.5-14.5) H 09/26/22 05:32 Plt Count 206 K/uL (130-400) 09/26/22 05:32 MPV 8.9 fL (9.4-12.4) L 09/26/22 05:32 Immature Gran % (Auto) 0.4 % 09/25/22 05:30 Neut % (Auto) 63.0 % 09/25/22 05:30 Lymph % (Auto) 13.1 % 09/25/22 05:30 Ogle % (Auto) 10.2 % 09/25/22 05:30 Eos % (Auto) 12.0 % 09/25/22 05:30 Baso % (Auto) 1.3 % 09/25/22 05:30 Neut # (Auto) 5.01 K/uL (1.40-6.50) 09/25/22 05:30 Lymph # (Auto) 1.04 K/uL (1.2-3.4) L 09/25/22 05:30 Ogle # (Auto) 0.81 K/uL (0.11-0.59) H 09/25/22 05:30 Eos # (Auto) 0.95 K/uL (0-0.50) H 09/25/22 05:30 Baso # (Auto) 0.10 K/uL (0-0.2) 09/25/22 05:30 Immature Gran # (Auto) 0.03 K/uL (0.01-0.20) 09/25/22 05:30 PT 12.5 Seconds (9.0-12.0) H 09/20/22 10:23 INR 1.2 (0.9-1.1) H 09/20/22 10:23 APTT 40.5 Seconds (21.0-31.0) H 09/20/22 10:23 PTT Ratio 1.5 09/20/22 10:23 Sodium 136 mmol/L (136-145) 09/26/22 05:32 Potassium 4.2 mmol/L (3.5-5.1) 09/26/22 05:32 Chloride 103 mmol/L (98-107) 09/26/22 05:32 Carbon Dioxide 24 mmol/L (21-32) 09/26/22 05:32 Anion Gap 9 (3-11) 09/26/22 05:32 BUN 33 mg/dl (6-23) H 09/26/22 05:32 Creatinine 3.48 mg/dl (0.6-1.4) H D 09/26/22 05:32 Est Cr Clr Drug Dosing 19.8 ml/min 09/26/22 05:32 Est GFR ( Amer) 18.7 ml/min 09/26/22 05:32 Est GFR (Non-Af Amer) 16.1 ml/min 09/26/22 05:32 BUN/Creatinine Ratio 9.5 (10-20) L 09/26/22 05:32 Glucose 76 mg/dl (70-99(Fasting)) 09/26/22 05:32 Lactate 1.5 mmol/L (0.4-2.0) 09/20/22 10:23 Calcium 8.9 mg/dl (8.5-10.1) 09/26/22 05:32 Magnesium 2.3 mg/dl (1.7-2.4) 09/20/22 10:23 Total Bilirubin 0.6 mg/dl (0.2-1.0) 09/20/22 10:23 Direct Bilirubin 0.1 mg/dl (0-0.2) 09/20/22 10:23 AST 14 U/L (13-39) 09/20/22 10:23 ALT 12 U/L (7-52) 09/20/22 10:23 Alkaline Phosphatase 97 U/L (34-104) 09/20/22 10:23 Troponin I High Sens 32.0 pg/ml (0-20) H 09/20/22 10:23 Total Protein 6.4 gm/dl (6.0-8.3) 09/20/22 10:23 Albumin 3.7 gm/dl (3.4-5.0) 09/20/22 10:23 Procalcitonin 3.10 ng/ml (0-0.5) H 09/20/22 10:23 Urine Color Yellow 09/21/22 Unknown Urine Appearance Clear (Clear) 09/21/22 Unknown Urine pH >= 9.0 (4.5-7.5) H 09/21/22 Unknown Ur Specific [place] 1.014 (1.000-1.030) 09/21/22 Unknown Urine Protein 3+ (Negative) H 09/21/22 Unknown Urine Glucose (UA) 1+ (Negative) H 09/21/22 Unknown Urine Ketones Negative (Negative) 09/21/22 Unknown Urine Blood Trace (Negative) H 09/21/22 Unknown Urine Nitrite Negative (Negative) 09/21/22 Unknown Urine Bilirubin Negative (Negative) 09/21/22 Unknown Urine Urobilinogen Negative (Negative) 09/21/22 Unknown Ur Leukocyte Esterase 1+ (Negative) H 09/21/22 Unknown Urine WBC (Auto) >30 /hpf (0-5) H 09/21/22 Unknown Urine RBC (Auto) 0-4 /hpf (0-4) 09/21/22 Unknown U Hyaline Cast (Auto) 1-5 /lpf (0-5) 09/21/22 Unknown U Epithel Cells (Auto) >30 /lpf (0-5) H 09/21/22 Unknown Urine Bacteria (Auto) 1+ (Negative) H 09/21/22 Unknown Ur Renal Epithelial Cell Not Reportable 09/21/22 Unknown Nasal Screen MRSA (PCR) Negative (Negative) 09/20/22 13:38 SARS-CoV-2 (PCR) NEGATIVE (Negative) 09/20/22 10:00 Hepatitis C Ab (EIA) NON-REACTIVE (NON-REACTIVE) 09/21/22 05:33 Hep C Ab Signal/Cutoff <0.02 (<1.00) 09/21/22 05:33 Influenza Type A (PCR) Negative (Neg) 09/20/22 10:00 Influenza Type B (PCR) Negative (Neg) 09/20/22 10:00 RSV (RT-PCR) Negative (Neg) 09/20/22 10:00 Impressions Chest X-Ray 09/20/22 09:45 SINGLE VIEW CHEST CLINICAL HISTORY: Sepsis. FINDINGS: 2 AP, portable, upright chest radiographs are compared to study dated 04/19/2022 and correlated with chest CT dated 05/17/2021. The patient is status post midline sternotomy. The heart is enlarged noting atherosclerotic calcification of the thoracic aorta. The pulmonary vasculature is noncongested. Chronic interstitial thickening is similar to previous. There is dense airspace consolidation in the left mid lung. Milder consolidation is seen at the left lung base. The right lung appears clear noting basilar atelectasis. No large pleural effusion or pneumothorax is seen. The skeletal structures are osteopenic. The bony thorax is grossly intact. Surgical clips project over the right axilla. IMPRESSION: 1. Airspace consolidation in the left mid to lower lung is typical for pneumonia. Clinical correlation will be required and radiographic follow-up to resolution is recommended. 2. Cardiomegaly without radiographic evidence of congestive failure. ACT 112: Negative or not required by law. Electronically signed by: Kasi Dai M.D. 09/20/2022 10:16 AM Abdomen/Pelvis CT 09/20/22 10:56 CT abd pelvis wo con CLINICAL HISTORY: sacral ulcer TECHNIQUE: Helical axial images of the abdomen and pelvis were obtained. Automated dose lowering techniques and/or adjustment according to patient size were utilized for this exam. This exam was performed without intravenous contrast. CT DOSE: 531.90 mGy.cm COMPARISON: Comparison is made to CT abdomen pelvis 05/16/2022 FINDINGS: Lower chest: Airspace opacity is seen in the left greater than right lower lobe. Cardiomegaly is seen. Liver: Unremarkable. No focal lesions are seen. Gallbladder and biliary tree: No calcified gallstones. Normal caliber wall. No intra- or extrahepatic biliary ductal dilation. Pancreas: Unremarkable, no focal lesions. Spleen: Unremarkable. Adrenals: Unremarkable. Kidneys and ureters: A few exophytic cysts are seen. Bladder: Focus of gas is noted in the bladder, correlation with recent rotation is recommended. Reproductive organs: Unremarkable. Bowel: Patient is status post Kang-en-Y gastric bypass. Lymph nodes Retroperitoneal: Unremarkable. Pelvic: Unremarkable. Mesenteric: Unremarkable. Peritoneum: Normal. Vessels: Atherosclerotic disease is seen. There is a infrarenal aortic disse ction measuring 35 mm in diameter. 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 Abdominal wall: There is a sacral ulcer with gas noted in close proximity to the bone. Overall the soft tissue defect has improved from prior exam. Bones: Sclerosis of the sacrum is seen which may be reactive and there is significant erosion of the lower sacrum and coccyx. 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 Degenerative changes are seen and there is surgical fixation of L3-L5. Focal defect in the right ischial bone may represent prior bone graft donor site. IMPRESSION: 1. Interval improvement in sacral soft tissue ulceration. A residual ulcer versus smaller interval new ulcer is noted and there is bony sclerosis and erosion compatible with previously noted osteomyelitis. If there is concern for active osteomyelitis, MRI may be more sensitive. 2. Aortic dissection is again seen. 3. Pneumonia in the left greater than right lung base. ACT 112: Negative or not required by law. Electronically signed by: Aren Forbes M.D. 09/20/2022 11:37 AM Hospital Course (1) Sepsis: Suspected pneumonia source Cefepime given in the ER for empiric coverage. Then switched to Unasyn + azithromycin Does have a history of multiresistant Pseudomonas (including to cefepime) in his wound before however suspected infection from his lungs rather than wound at this time. - Blood cultures negative after 48 hours - Transitioned from Unasyn to Augmentin and completed 7 day coarse of antibiotics prior to discharge - Completed 2 day coarse of 500mg Azithromycin (2) Acute hyperkalemia: End-stage renal disease - Dialysis MWF -low K diet - Resolved with dialysis (3) Lobar pneumonia: Flutter valve Incentive spirometer Antibiotics as above (4) Atrial fibrillation: Continue apixaban 2.5 mg p.o. twice daily (5) Hypertension: REsume home metoprolol, minoxidil, spironolactone upon discharge. Were initially held for hypotension, which has since improved. (6) ESRD (end stage renal disease) on dialysis: HD regimen as per nephrology -Will resume HD with normal OP schedule tomorrow (7) Neurogenic bladder: Continue chronic Perry catheter, changed on day of admission (8) Sleep apnea: CPAP at bedtime (9) Osteomyelitis of sacrum: Chronic. Low suspicion this is causing current infection given definitive lobar pneumonia. - Wound vac in place, plan to change on /2 prior to dc - Will continue to follow with wound care an an OP Plan Total Time Total Time Spent Total Time Spent (In Minutes): <30 Discharge Plan Discharge Items Patient Disposition: Home - Self-Care Reason For Visit: ILLNESS, Discharge Diagnosis: pneunomia Condition on Discharge: Fair Activity: Per Instructions section Non-emergency contact: Primary Care Provider Call non-emergency contact if: you have any medication questions, your symptoms worsen and you have a fever Follow-up/Referrals: Jasiel Pineda, [Primary Care Provider] - 10/17/22 11:30 am Diet: Regular Addtl Attending Provider Instructions: You were admitted and treated for pneumonia. You completed the coarse of antibiotics today prior to leaving. If you were to develop fever/chills, shortness of breath, chest pain these would all be reasons to call your primary care doctor or go back to the ED. We will request an appointment with your primary care doctor for the next week, if you don't hear from their office by Friday you should give them a call to schedule an appointment. We looked into getting you mechanical standing lift for at home. If you are interested you should reach out to Veronica or Mónica at [phone] extension [phone] or option 6 at [facility]. It is an out of pocket cost. $350/mnth to rent or $3600 to purchase. Your blood pressure was initially pretty low when your were admitted. We have been holding your minoxidil and spironolactone. It is ok to resume both of those mediations once you get home. We did not make any changes to your daily medications. You should resume dialysis tomorrow to get back on your regular scheduled and the bilingual case manager have been in contact with [facility] home health to resume wound vac changes on Friday. Pending Studies at Discharge: No Stand-Alone Forms: My [facility] Medications and DC Order Prescriptions: Continued azelastine 0.15 % (205.5 mcg) spray,non-aerosol 1 spray INTNAS HS PRN (Reason: seasonal allergies) Qty: 30 2RF Rx Instructions: administer into each nostril (DME) Power Wheelchair Device See Rx Instructions .Route Qty: 1 0RF Rx Instructions: POWER WHEELCHAIR, DX: R53.1, R26.2 oxycodone-acetaminophen [Percocet] 5-325 mg tablet 1 tab PO Q6H PRN (Reason: pain) Qty: 30 0RF metronidazole [Metrogel] 1 % gel 1 applic topical DAILY PRN (Reason: Fungal ) Rx Instructions: Apply to wound with VAC changes. Eliquis 2.5 mg tablet 2.5 mg PO BID Qty: 180 3RF atorvastatin [Lipitor] 20 mg tablet 20 mg PO QPM Qty: 90 4RF gabapentin 300 mg capsule 300 mg PO HS Qty: 90 5RF metoprolol succinate 25 mg tablet extended release 24 hr 25 mg PO QAM Qty: 90 3RF minoxidil 10 mg tablet 10 mg PO QAM Qty: 90 3RF Rx Instructions: TAKE 1 TABLET DAILY nortriptyline [Pamelor] 25 mg capsule 25 mg PO HS Qty: 90 3RF cholecalciferol (vitamin D3) [Vitamin D3] 50 mcg (2,000 unit) Tablet 50 mcg PO QPM spironolactone 50 mg tablet 50 mg PO QAM sevelamer carbonate 800 mg tablet 800 - 1,600 mg PO TID Rx Instructions: 1 a breakfast, one 1 at lunch and two at dinner alprazolam 0.25 mg tablet 0.25 mg PO HS PRN (Reason: Anxiety) acetaminophen [Tylenol Extra Strength] 500 mg Tablet 1,000 mg PO DIRECTED PRN (Reason: Pain) Renal Caps 1 mg Capsule 1 cap PO QAM Qty: 30 0RF Discharge Orders: Discharge Order (Routine); Ordered 09/26/22 Ordered By: Lynn Lewis/Other Patient Handouts: Nutrition for Wound Healing Admission Data Admit Date/Time: 09/20/22 11:32 Attending Provider: Sunil Mendoza Admit Provider: Low Caban Primary Care Provider: Jasiel Pineda Other Providers: Low Caban ; Gilbert Paul ; [facility],Home Healthcare Other Interventions: Discharge Summary Assessment (RN) Last Done: 09/26/22 14:11 Supervising Physician Co-Signing Physician Notes I personally examined the patient and verified all [place] points of history and exam, discussed case, and agree with decision making with Dr Pandey feeling alright. no new complaints. feels good to go home. vitals noted nad heent nc at mmm breathing unlabored no accessory muscles good effort skin no rashes no pallor or icterus. weakness due to sepsis - sepsis from CAP -improving. safe/stable for home. outpt wound f/u and HD. otherwise as above
--- NOTE | 2022-09-26 19:23 | Billing Data ---
Date of Service September 26, 2022 Coding Level of Care Code 63363 IN/OBS DISCH 30 MIN/LESS
[2022-09-27] MEDS ORDERED: EPOETIN ALFA 10,000 UNITS/ML VIAL IV ONE (07:00)
[2022-09-27] MEDS ORDERED: SODIUM CHLORIDE 0.9% 1000ML 1,000 ML IV PRN (07:00)
== END 2022-09-26 15:02 | disposition home or self-care (01) | DRG 871 ==
LOC: ED 09:30 → SUATTDRO 11:32 → 4W 11:32
DX: Z98.84 Bariatric surgery status; L89.154 Pressure ulcer of sacral region, stage 4; Z96.651 Presence of right artificial knee joint; N18.6 End stage renal disease; Z88.5 Allergy status to narcotic agent; Z99.2 Dependence on renal dialysis; M46.28 Osteomyelitis of vertebra, sacral and sacrococcygeal region; D63.1 Anemia in chronic kidney disease; M86.68 Other chronic osteomyelitis, other site; Z99.89 Dependence on other enabling machines and devices; Z96.642 Presence of left artificial hip joint; J18.1 Lobar pneumonia, unspecified organism; N31.9 Neuromuscular dysfunction of bladder, unspecified; M89.15 Physeal arrest, femur; G82.20 Paraplegia, unspecified; Z88.1 Allergy status to other antibiotic agents; Z79.899 Other long term (current) drug therapy; Z88.2 Allergy status to sulfonamides; I48.91 Unspecified atrial fibrillation; I12.0 Hypertensive chronic kidney disease with stage 5 chronic kidney disease or end stage renal disease; A41.9 Sepsis, unspecified organism; Z83.3 Family history of diabetes mellitus; Z98.1 Arthrodesis status; Z79.01 Long term (current) use of anticoagulants; E87.5 Hyperkalemia

== ENCOUNTER 2023-05-04 09:18 | Inpatient (IN) ==
--- NOTE | 2023-04-25 12:45 | Anesthesiology Consultation ---
Date of Service April 25, 2023 Assessment & Plan (1) Encounter for pre-operative examination: Chart Review Chart Review: Pending: Refer to Additional Notes / Consult section (pending cardio cleaerance 05/01/23 and aortoiliac u/s from vascular ) and Patient NOT seen in Pre Admission Testing - Awaiting cardio clearance 05/01/23 ([place]) - Please fax for aortoiliac u/s from [facility] Vascular (Dr. Marroquin office) Pt gets dialysis M,W,F- surgery scheduled for Friday. Per surgeon's office- surgeon plans to admit patient the day prior to surgery to do bowel prep and clear liquid diet. Surgeon initially planned to have patient do dialysis Friday prior to surgery. Discussed with Dr. Johnson- recommend surgeon do dialysis after surgery. Surgeon's office and informed. - Check CBC with diff and PRP DOS (not done preoperatively); PRP needs checked due to dialysis regardless - Will leave to anesthesiologist discretion if repeat CXR needed -Infectious Disease screening: Per PAT nursing assessment on 04/25/23. No known infectious disease contacts in past 10 days or current infectious disease symptoms. No recent travel outside the country. Pt does get dialysis M,W,F- will need preop [place] test DOS- will order for DOS due to transportation issues. Pt seen by [facility] 04/22/23= Wound is clinically stable to improved. Topical Xylocaine applied to wound. Wound was debrided of thick slough and subcutaneous tissue using a curette. Continue dressing the wound with Aquacel Ag daily. Patient scheduled for elective colostomy with Dr. Carrillo Hou 05/05/2023 he will follow-up with Dr. Keys in [place] as planned as well tentative plastic surgery scheduled in July. Patient last seen by vascular 12/05/2022 = seen for follow-up on aneurysmal disease. Patient has known remote history of thoracic aortic aneurysm and surgical repair of this. 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 Abdominal aortic aneurysmsuprarenal aorta measures 3.3 cm, his infrarenal measures 3.0 cm, this is not significantly changed compared to comparison to previous imaging. Will be of reevaluated in 6 months. Iliac artery aneurysmright iliac artery measures 2.0 cm, his left measures 3.0 cm. Not significantly changedwe will reevaluate in 6 months. In regards to his chronic aortic dissection and surgical repair historythis will be reevaluated when he returns in [address] scan of the chest. History Surgery Operation Date: 05/05/23 07:15 Proposed Procedures p Laparoscopic Loop Sigmoid Colostomy, Possible Open - Carrillo Hou MD Height/Weight Height: 6 ft Weight: 83.915 kg Allergies Allergy/AdvReac Type Severity Reaction Status Date / Time tetracycline Allergy Intermediate HIVES Verified 04/25/23 11:02 morphine AdvReac Intermediate Nausea Verified 04/25/23 11:02 Medications Home Medications Medication Instructions Recorded Confirmed Last Taken cholecalciferol (vitamin D3) 50 50 mcg PO QPM 12/31/19 04/25/23 09/19/22 mcg (2,000 unit) tablet (Vitamin D3) azelastine 205.5 mcg (0.15 %) 1 spray intranasal HS PRN seasonal 09/04/20 04/25/23 02/04/22 nasal spray allergies #30 mL acetaminophen 500 mg tablet 1,000 mg PO DIRECTED PRN Pain 07/13/21 04/25/23 06/05/22 11:00 (Tylenol Extra Strength) Wheelchair (Powered) (Power #1 ea 01/04/22 04/22/23 Unknown Wheelchair) vitamin B complex and vitamin C 1 cap PO QAM #30 caps 02/12/22 04/25/23 09/20/22 no.20-folic acid 1 mg capsule (Renal Caps) atorvastatin 20 mg tablet (Lipitor) 20 mg PO QPM #90 tabs 09/10/22 04/25/23 09/19/22 metoprolol succinate 25 mg 25 mg PO QAM #90 tabs 09/10/22 04/25/23 09/20/22 tablet,extended release 24 hr nortriptyline 25 mg capsule 25 mg PO HS #90 caps 09/10/22 04/25/23 09/19/22 (Pamelor) sevelamer carbonate 800 mg tablet 800 - 1,600 mg PO TID 09/20/22 04/25/23 09/20/22 alprazolam 0.25 mg tablet 0.25 mg PO HS PRN Anxiety #30 tabs 12/19/22 04/25/23 Unknown apixaban 2.5 mg tablet (Eliquis) 2.5 mg PO BID #180 tabs 01/09/23 04/25/23 Unknown gabapentin 300 mg capsule 600 mg PO HS #180 caps 02/10/23 04/25/23 Unknown oxycodone-acetaminophen 5 mg-325 1 tab PO Q6H PRN pain #30 tabs 04/18/23 04/25/23 Unknown mg tablet (Percocet) Past Medical History Medical History (Updated 04/28/23 @ 08:34 by Mildred Mariee PA-C) Abdominal aortic aneurysm (~2014) S/p Type A dissection with emergent repair in 2014 - Follows with vascular - last seen 11/2022- AAA 3.3cm, iliac artery aneursym (right 2.0cm and left 3.0 cm)- all stable in size; chronic thoracic aortic dissection- stable- vascular recommended repeating imaging May 2024 Anemia due to chronic kidney disease Anxiety Atrial fibrillation Follows with [facility] cardiology (Dr. Jarvis) On Eliquis AV fistula LEFT ESRD (end stage renal disease) on dialysis [facility] in [place] Fri-Fri-Fri History of blood transfusion 12/19/21 per pt History of CHF (congestive heart failure) Hyperlipidemia Hypertension Impotence, organic Lobar pneumonia 08/2022 treated at [facility] inpatient. no current issues Lumbar spinal stenosis Neurogenic bladder Self Catheterization since Aortic repair 4-5X PER DAY Neuropathic pain PTSD (post-traumatic stress disorder) POST AORTIC DISSECTION Sacral decubitus ulcer, stage IV "stable to improved" per [place] [facility] CLINIC WEEKLY AND [facility] HOME NURSING 2X PER WEEK. patient's changes dressing as instructed at home. 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 Shrestha at [facility]>WC BOUND FOR 3 YEARS D/T CYSTS. inhibiting patient to ambulate. 04/25/23: awaiting for surgery to remove the spinal cyst but will need his ulcer wound repaired and healed fully first --> reason for upcoming colostomy. Wheelchair dependent Past Family History Family History Grandmother Family history of diabetes mellitus Mother Gallbladder disease Father Prostate cancer Myocardial infarction Hypertension Other Family history non-contributory No family history of adverse response to anesthesia Denies family history of Ovarian cancer Breast cancer Colorectal cancer Past Surgical History Surgical History History of arthroplasty of left hip History of arthroscopy RT KNEE History of bladder surgery History of cardiac catheterization 2003 - no stents - [facility] in [place] History of cardioversion mult>FOLLOWS WITH DR. JARVIS History of cataract surgery RT/LEFT History of colonoscopy History of esophagogastroduodenoscopy (EGD) History of gastric bypass 2010 History of lumbar fusion History of open reduction and internal fixation (ORIF) procedure RT WRIST History of removal of tunneled central venous catheter (CVC) with port removal of perm cath 05/[address] Marroquin 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 History of revision of total hip arthroplasty History of rhinoplasty History of tooth extraction History of total knee replacement RT History of transurethral resection of prostate Nausea and vomiting after administration of anesthetic agent S/P arteriovenous (AV) fistula creation left S/P debridement (06/27/21) Excisional Debridement Sacral Decubitus Ulcer down to muscle level 4cm x 6cm - Ranjeet Myers, 06/27/2021 Excisional Debridement of Sacral Decubitus Ulcer Down to Bone, 11cm x 10cm(Not Applicable) - Ranjeet Myers, 07/25/2021: MAC 3, ETT 7.5. S/P debridement (02/08/22) Sacral Wound Debridment, Sacral bone biopsy(Not Applicable) - Jose Le, DO S/P total right hip arthroplasty Social History Smoking Status: Never smoker Do You Dip or Chew Tobacco: No Hx Alcohol Use: No Hx Substance Use: No substance use type: does not use Testing Electrocardiogram Date: 09/20/22 Atrial fibrillation of 84 bpm Left anterior fascicular block Nonspecific T wave abnormality When compared EKG from April 19, 2022nonspecific T wave abnormality now evident in inferior leads, nonspecific T wave abnormality worse in lateral leads per cardio Chest X-Ray Date: 09/20/22 FINDINGS: 2 AP, portable, upright chest radiographs are compared to study dated 04/19/2022 and correlated with chest CT dated 05/17/2021. The patient is status post midline sternotomy. The heart is enlarged noting atherosclerotic calcification of the thoracic aorta. The pulmonary vasculature is noncongested. Chronic interstitial thickening is similar to previous. There is dense airspace consolidation in the left mid lung. Milder consolidation is seen at the left lung base. The right lung appears clear noting basilar atelectasis. No large pleural effusion or pneumothorax is seen. The skeletal structures are osteopenic. The bony thorax is grossly intact. Surgical clips project over the right axilla. IMPRESSION: 1. Airspace consolidation in the left mid to lower lung is typical for pneumonia. Clinical correlation will be required and radiographic follow-up to resolution is recommended. 2. Cardiomegaly without radiographic evidence of congestive failure. (Admitted at time of CXR to [facility]- treated with abxs) Echocardiogram Date: 12/18/21 EF 55-60%. No regional motion abnormality. Mild to moderate MR. Moderate TR. Severe LAD. Moderate RAD. Compared to study of 04/09/2019, no significant change per report. Other Testing Abdomen/Pelvis CT 09/20/22= Interval improvement in sacral soft tissue ulceration . A residual ulcer versus smaller interval new ulcer is noted and there is bony sclerosis and erosion compatible with previously noted osteomyelitis. If there is concern for active osteomyelitis, MRI may be more sensitive. Aortic dissection is again seen. There is a infrarenal aortic dissection measuring 35 mm in diameter. 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 Pneumonia in the left greater than right lung base. (Pt follows routinely with vascular/Dr Marroquin- last seen 11/2022- stable- recommended repeat imaging May 2024)
--- NOTE | 2023-05-04 09:16 | History & Physical Report ---
Date of Service May 04, 2023 Assessment & Plan (1) Encounter for pre-operative examination: Plan: Asked to admit patient due to complex medical needs prior to diverting loop colostomy tomorrow to be performed by Dr Hou in order to help heal chronic decubitus sacral ulcer Cleared by cardiology a outpatient Pre-op labs, EKG, CXR reviewed Pre-op antibiotics re-ordered as directed by Dr Hou (neomycin, metronidazole, Cefoxitin) Bowel regimen ordered per pre-op instructions brought by patient Plan on post operative dialysis - consult nephrology Eliquis on hold Dialysis renal clear liquid diet today, NPO after midnight Appears medically optimized for surgery at this time (2) Sleep apnea: Plan: CPAP HS (3) ESRD (end stage renal disease) on dialysis: Plan: Consult nephrology (4) Sacral decubitus ulcer, stage IV: Plan: S/p Type A dissection with emergent repair in 2014 - Follows with vascular - last seen 11/2022- AAA 3.3cm, iliac artery aneursym (right 2.0cm and left 3.0 cm)- all stable in size; chronic thoracic aortic dissection- stable- vascular recommended repeating imaging May 2024 (5) Abdominal aortic aneurysm: Plan: /p Type A dissection with emergent repair in 2014 - Follows with vascular - last seen 11/2022- AAA 3.3cm, iliac artery aneursym (right 2.0cm and left 3.0 cm)- all stable in size; chronic thoracic aortic dissection- stable- vascular recommended repeating imaging May 2024 (6) Anemia due to chronic kidney disease: Plan: At baseline (7) Atrial fibrillation: Plan: Last took Eliquis Friday morning, continue to hold, no need for bridging therapy Continue metoprolol succinate throughout perioperative course Plan VTE Prophylaxis - Holding Eliquis for surgery tomorrow Diet - dialysis renal (clears), NPO at midnight Disposition - observation status to med/tele Admission and Anticipated Discharge Date Admission Date: May 04, 2023 History of Present Illness Chief Complaint: Sacral ulcer, need for diverting loop colostomy Primary Care Provider: Jasiel Pineda DO Guanaco Escobedo is a 77 year old male with ESRD on dialysis who presents as a direct admission for preparation of diverting loop colostomy planned for tomorrow. Planned direct admission under medicine due to medical complexity day prior to surgery for bowel preparation. He reports not currently on antibiotics for sacral ulcer - no acute worsening, fever or chills. No acute concerns or questions. Last BM yesterday - felt constipated. Last Eliquis use Friday morning. Last crowe catheter change 2.5 weeks ago - chronic for neurogenic bladder. Dialysis days Friday, Friday, Friday. Cleared by cardiology for surgery 3 days ago. Allergies Allergy/AdvReac Type Severity Reaction Status Date / Time tetracycline Allergy Intermediate HIVES Verified 04/25/23 11:02 morphine AdvReac Intermediate Nausea Verified 04/25/23 11:02 Home Medications Medication Instructions Recorded Confirmed Type cholecalciferol (vitamin D3) 50 50 mcg PO QPM 12/31/19 04/25/23 History mcg (2,000 unit) tablet (Vitamin D3) azelastine 205.5 mcg (0.15 %) 1 spray intranasal HS PRN seasonal 09/04/20 04/25/23 Rx nasal spray allergies #30 mL acetaminophen 500 mg tablet 1,000 mg PO DIRECTED PRN Pain 07/13/21 04/25/23 History (Tylenol Extra Strength) Wheelchair (Powered) (Power #1 ea 01/04/22 04/22/23 Rx Wheelchair) vitamin B complex and vitamin C 1 cap PO QAM #30 caps 02/12/22 04/25/23 Rx no.20-folic acid 1 mg capsule (Renal Caps) atorvastatin 20 mg tablet (Lipitor) 20 mg PO QPM #90 tabs 09/10/22 04/25/23 Rx metoprolol succinate 25 mg 25 mg PO QAM #90 tabs 09/10/22 04/25/23 Rx tablet,extended release 24 hr nortriptyline 25 mg capsule 25 mg PO HS #90 caps 09/10/22 04/25/23 Rx (Pamelor) sevelamer carbonate 800 mg tablet 800 - 1,600 mg PO TID 09/20/22 04/25/23 History alprazolam 0.25 mg tablet 0.25 mg PO HS PRN Anxiety #30 tabs 12/19/22 04/25/23 Rx apixaban 2.5 mg tablet (Eliquis) 2.5 mg PO BID #180 tabs 01/09/23 04/25/23 Rx gabapentin 300 mg capsule 600 mg PO HS #180 caps 02/10/23 04/25/23 Rx oxycodone-acetaminophen 5 mg-325 1 tab PO Q6H PRN pain #30 tabs 04/18/23 04/25/23 Rx mg tablet (Percocet) Past Med/Surg History Medical History Abdominal aortic aneurysm (~2014) S/p Type A dissection with emergent repair in 2014 - Follows with vascular - last seen 11/2022- AAA 3.3cm, iliac artery aneursym (right 2.0cm and left 3.0 cm)- all stable in size; chronic thoracic aortic dissection- stable- vascular recommended repeating imaging May 2024 Anemia due to chronic kidney disease Anxiety Atrial fibrillation Follows with [facility] cardiology (Dr. Jarvis) On Eliquis AV fistula LEFT ESRD (end stage renal disease) on dialysis [facility] in [place] Mon-Wed-Fri History of blood transfusion 12/19/21 per pt History of CHF (congestive heart failure) Hyperlipidemia Hypertension Impotence, organic Lobar pneumonia 08/2022 treated at [facility] inpatient. no current issues Lumbar spinal stenosis Neurogenic bladder Self Catheterization since Aortic repair 4-5X PER DAY Neuropathic pain PTSD (post-traumatic stress disorder) POST AORTIC DISSECTION Sacral decubitus ulcer, stage IV "stable to improved" per [place] [facility] clinic>[facility] CLINIC [facility] AND [facility] HOME NURSING 2X PER WEEK. patient's changes dressing as instructed at home. 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 Shrestha at [facility] [place]>WC BOUND FOR 3 YEARS D/T CYSTS. inhibiting patient to ambulate. 04/25/23: awaiting for surgery to remove the spinal cyst but will need his ulcer wound repaired and healed fully first --> reason for upcoming colostomy. Wheelchair dependent Surgical History History of arthroplasty of left hip History of arthroscopy RT KNEE History of bladder surgery History of cardiac catheterization 2003 - no stents - [facility] in [place] History of cardioversion mult>FOLLOWS WITH DR. JARVIS History of cataract surgery RT/LEFT History of colonoscopy History of esophagogastroduodenoscopy (EGD) History of gastric bypass 2010 History of lumbar fusion History of open reduction and internal fixation (ORIF) procedure RT WRIST History of removal of tunneled central venous catheter (CVC) with port removal of perm cath 05/[address] Marroquin 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 2015 Did have thoracic bleeding post op- required re exploration approx 1 week after initial presentation- had ARF, spinal cord ischemia resulting in paraplegia, neurogenic bladder and neurogenic bowel. History of revision of total hip arthroplasty History of rhinoplasty History of tooth extraction History of total knee replacement RT History of transurethral resection of prostate Nausea and vomiting after administration of anesthetic agent S/P arteriovenous (AV) fistula creation left S/P debridement (06/27/21) Excisional Debridement Sacral Decubitus Ulcer down to muscle level 4cm x 6cm - Ranjeet Myers DO 06/27/2021 Excisional Debridement of Sacral Decubitus Ulcer Down to Bone, 11cm x 10cm(Not Applicable) - Ranjeet Myers DO 07/25/2021: MAC 3, ETT 7.5. S/P debridement (02/08/22) Sacral Wound Debridment, Sacral bone biopsy(Not Applicable) - Jose Le DO S/P total right hip arthroplasty Family History Grandmother Family history of diabetes mellitus Mother Gallbladder disease Father Prostate cancer Myocardial infarction Hypertension Other Family history non-contributory No family history of adverse response to anesthesia Denies family history of Ovarian cancer Breast cancer Colorectal cancer Social History Smoking Status: Never smoker Second Hand Exposure: No; Do You Dip or Chew Tobacco: No; Tobacco Cessation Education Requested by Patient: No Hx Alcohol Use: No Hx Substance Use: No Preferred Language: Estonian Communication Ability: Effective Visual Impairment: Limited Hearing Ability: Normal Merchandise Marker Required: No Beliefs That Will Affect Care: None marital status: Current Living Situation: Spouse Current Living Situation Comment: Lives with at home current occupational status: retired How many Children do You have: 1 Other Information That Helps Us Care for You: No Childhood Exposure to Second-Hand Smoke: Yes (father did ) Diet: regular Diet Comment: low sugar, low phospate caffeine: Yes (tea) during the past year weight has: remained stable Dental Care, Regularly: Yes Physical Activity Frequency: Does not Exercise Physical Activity Frequency Comment: goes to PT twice a week Seatbelt Use: always Sunscreen Use: Yes Do you think of yourself as: straight/heterosexual Gender Identity: Male Assistive Devices: Wheelchair Assistive Devices Comment: Etac device at home Review of Systems Review of Systems: All systems reviewed & are unremarkable except as noted in HPI & below Physical Exam Constitutional: WD/WN, vitals as above Eyes: + anicteric sclerae; + EOM not intact (amblyopia present) and normal pupil size Respiratory: normal respiratory effort, lungs clear to auscultation Cardiovascular: Rate/Rhythm: regular rate and + irregularly irregular Heart Sounds: + murmur (3/6 IVA LUSB and apex) Extremities: normal capillary refill; no calf tenderness and no pedal edema Gastrointestinal (Abdomen): normal bowel sounds, soft, nontender, no hepatosplenomegaly Skin: No surrounding cellulitis from sacral ulcer, packing not completely removed Neurologic: moves all extremities and awake; not confused Psychiatric: A+Ox3, euthymic affect Genitourinary: no CVA tenderness Results & Data Results & Data Laboratory Results Abnormal lab results 05/04/23 05/04/23 05/04/23 Range/Units 09:37 09:37 09:37 WBC 4.30 L (4.8-10.8) K/ul RBC 3.12 L (4.70-6.10) M/uL Hgb 10.3 L (14.0-18.0) g/dl Hct 32.7 L (42.0-52.0) % MCV 104.8 H (80.0-100.0) fL MCHC 31.5 L (32.0-36.0) g/dL RDW Std Deviation 61.8 H (36.4-46.3) fL RDW Coeff of Hector 16.1 H (11.5-14.5) % MPV 9.2 L (9.4-12.4) fL Lymph # (Auto) 0.74 L (1.20-3.40) K/uL PT 12.1 H (9.0-12.0) Seconds APTT 36.0 H (21.0-31.0) Seconds Chloride 97 L (98-107) mmol/L BUN 51 H (6-23) mg/dl Creatinine 4.03 H (0.6-1.4) mg/dl Phosphorus 5.0 H (2.5-4.9) mg/dl Globulin 2.4 L (2.5-4.0) gm/dl Diagnostic Findings SINGLE VIEW CHEST CLINICAL HISTORY: Preoperative examination FINDINGS: An AP, portable, upright chest radiograph is compared to study dated 09/20/2022. The examination is degraded by portable technique and patient rotation. The patient is status post midline sternotomy. The heart is enlarged noting atherosclerotic calcification of the thoracic aorta. The pulmonary vasculature is noncongested. The chronic interstitial thickening is similar to previous. There is bibasilar scarring/atelectasis. No airspace consolidation or large pleural effusion is identified. No pneumothorax is seen. The bony thorax is grossly intact. Surgical clips project over the right shoulder. IMPRESSION: Cardiomegaly with no active disease in the chest. ECG Rate (beats per minute): 63 Rhythm: atrial fibrillation Findings: + other (non specific intra-ventricular conduction block, non specific lateral T waves) Comparison ECG Date: from (Sep 20, 2022) Change: no significant change Code Status & VTE Plan Code Status Full VTE Prophylaxis Plan VTE Prophylaxis will be ordered: Yes Reason for no VTE drug order: Contraindicated PG Care Time/CCT Total # of Minutes Spent Total Time Spent: 90 Total Time Spent with Patient: Total time spent is greater than 50% in coordination of care (as documented) at patient's floor/unit and/or counseling patient: Significant time spent calling around pharmacies and finding neomycin which we do not stock and patient did not come with Coding Level of Care Code 13748 INT INP/OBS CARE 3/75MIN Diagnoses Encounter for pre-operative examination Z01.818 Sleep apnea G47.30 ESRD (end stage renal disease) on dialysis N18.6; Z99.2 Sacral decubitus ulcer, stage IV L89.154 Abdominal aortic aneurysm I71.4 Presence of rupture: without rupture Anemia due to chronic kidney disease N18.9; D63.1 Atrial fibrillation I48.2 Atrial fibrillation type: permanent (5) Abdominal aortic aneurysm Presence of rupture: without rupture Qualified Code(s): I71.4 - Abdominal aortic aneurysm, without rupture (7) Atrial fibrillation Atrial fibrillation type: permanent Qualified Code(s): I48.2 - Chronic atrial fibrillation
--- NOTE | 2023-05-04 10:10 | XRay Report ---
SINGLE VIEW CHEST CLINICAL HISTORY: Preoperative examination FINDINGS: An AP, portable, upright chest radiograph is compared to study dated 09/20/2022. The examina tion is degraded by portable technique and patient rotation. The patient is status post midline medrano otomy. The heart is enlarged noting atherosclerotic calcification of the thoracic aorta. The pulmonar y vasculature is noncongested. The chronic interstitial thickening is similar to previous. There is b ibasilar scarring/atelectasis. No airspace consolidation or large pleural effusion is identified. No pneumothorax is seen. The bony thorax is grossly intact. Surgical clips project over the right should er. IMPRESSION: Cardiomegaly with no active disease in the chest. ACT 112: Negative or not required by law. Electronically signed by: Kasi Dai M.D. 05/04/2023 10:09 AM
[2023-05-04 10:12] LABS: Basophils # (auto) 0.07 K/uL (0.00-0.20); Basophils % (auto) 1.6 %; Eosinophils % (auto) 9.3 %; Hematocrit (blood only) 32.7 % (42.0-52.0); Hemoglobin 10.3 g/dl (14.0-18.0); Immature Granulocytes # (auto) 0.02 K/uL (0.01-0.20); Immature Granulocytes % (auto) 0.5 %; Lymphocytes # (auto) 0.74 K/uL (1.20-3.40); Lymphocytes % (auto) 17.2 %; Mean Corpuscular Hgb Conc 31.5 g/dL (32.0-36.0); Mean Corpuscular Volume 104.8 fL (80.0-100.0); Mean Platelet Volume 9.2 fL (9.4-12.4); Monocytes # (auto) 0.44 K/uL (0.11-0.59); Monocytes % (auto) 10.2 %; Neutrophils # (auto) 2.63 K/uL (1.40-6.50); Neutrophils % (auto) 61.2 %; Platelet Count 201 K/uL (130-400); RDW Coefficient of Variation 16.1 % (11.5-14.5); RDW Standard Deviation 61.8 fL (36.4-46.3); Red Blood Count 3.12 M/uL (4.70-6.10)
[2023-05-04 10:32] LABS: Albumin Globulin Ratio 1.7 (0.9-2); BUN Creatinine Ratio 12.7 (10-20); Bilirubin,Total 0.7 mg/dl (0.2-1.0); Calcium 9.3 mg/dl (8.6-10.3); Creatinine Clr Calc Pharmacy 19.1 ml/min; Est GFR (African American) 15.6 ml/min; Est GFR (Non-African American) 13.5 ml/min; Globulin 2.4 gm/dl (2.5-4.0); Magnesium 2.4 mg/dl (1.7-2.4); Total Protein 6.4 gm/dl (6.0-8.3)
[2023-05-04 10:51] LABS: INR 1.1 (0.9-1.1); Partial Thromboplastin Ratio 1.3; Prothrombin Time 12.1 Seconds (9.0-12.0)
--- NOTE | 2023-05-04 11:19 | Nephrology Consultation ---
Date of Consultation May 04, 2023 Assessment & Plan (1) ESRD (end stage renal disease) on dialysis: HD MWF. Orders for HD tomorrow entered into EHR. AVF has been functioning well. Outpatient HD Rx has been MWF 3h 45m on a 180 optiflux at Qb 450 Qd 800, 3 K, 2.5 calcium. EDW 85 kg. Medications appropriately dosed for kidney function. Low potassium diet. Continue daily renal MVI. Document I/O's. Repeat metabolic profile tomorrow AM. (2) Anemia due to chronic kidney disease: Chronic, stable. Maintained on Micera 150 mg Q2 weeks at HD. Venofer 100 mg provided with treatments. (3) Sacral decubitus ulcer, stage IV: Wound care notes reviewed. CT reviewed. Plan of care discussed with admitting team. Anticipated OR tomorrow AM. Bowel prep tonight. History of Present Illness Reason for Consultation: ESRD on dialysis Requesting Physician: Low Caban MD Attending Physician: Carrillo Hou MD History of Present Illness Mr. Guanaco Escobedo (Ken) is a 77-year-old male with hypertension, osteoarthritis, spinal stenosis, a significant history of type A aortic dissection with resultant spinal ischemia and neurogenic bladder. He has loss of sensation complicated by a sacral decubitus ulcer. 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 Following aortic repair, a stable infrarenal dissection has been monitored in the distal aorta extending into the left iliac. Sylvester has CKD attributed to vascular disease and hypertensive nephrosclerosis as well as a significant history of ATN. He started HD during an admission to [facility] in January 2022. Sylvester has been tolerating HD reasonably well with some intradialytic hypotension. He does use opiates for pain associated with sacral decubitus prior to treatment. He is also maintained on PRN alprazolam for a history of panic attacks related to PTSD. He has a well functioning L AC AVF which was placed by Dr. Marroquin. He was admitted to [facility] in September 2021 with a sacral decubitus ulcer and concern for osteomyelitis. During the admission, he developed anemia requiring PRBC transfusion support. He follows with wound care at [facility]. The sacral decubitus has unfortunately been non-healing. Sylvester is scheduled to undergo closure at [facility] in June. In the interim, a diverting ostomy has been requested. Admission was coordinated today so elective procedure could be appropriately completed by Dr. Hou tomorrow. Sylvester will undergo appropriate bowel prep as an inpatient today. He completed a full dialysis treatment on Friday without complications. Sylvester has been tolerating HD well. No complications with treatment noted. Allergies Allergy/AdvReac Type Severity Reaction Status Date / Time tetracycline Allergy Intermediate HIVES Verified 04/25/23 11:02 morphine AdvReac Intermediate Nausea Verified 04/25/23 11:02 Home Medications Medication Instructions Recorded Confirmed Type cholecalciferol (vitamin D3) 50 50 mcg PO QPM 12/31/19 04/25/23 History mcg (2,000 unit) tablet (Vitamin D3) azelastine 205.5 mcg (0.15 %) 1 spray intranasal HS PRN seasonal 09/04/20 04/25/23 Rx nasal spray allergies #30 mL acetaminophen 500 mg tablet 1,000 mg PO DIRECTED PRN Pain 07/13/21 04/25/23 History (Tylenol Extra Strength) Wheelchair (Powered) (Power #1 ea 01/04/22 04/22/23 Rx Wheelchair) vitamin B complex and vitamin C 1 cap PO QAM #30 caps 02/12/22 04/25/23 Rx no.20-folic acid 1 mg capsule (Renal Caps) atorvastatin 20 mg tablet (Lipitor) 20 mg PO QPM #90 tabs 09/10/22 04/25/23 Rx metoprolol succinate 25 mg 25 mg PO QAM #90 tabs 09/10/22 04/25/23 Rx tablet,extended release 24 hr nortriptyline 25 mg capsule 25 mg PO HS #90 caps 09/10/22 04/25/23 Rx (Pamelor) sevelamer carbonate 800 mg tablet 800 - 1,600 mg PO TID 09/20/22 04/25/23 History alprazolam 0.25 mg tablet 0.25 mg PO HS PRN Anxiety #30 tabs 12/19/22 04/25/23 Rx apixaban 2.5 mg tablet (Eliquis) 2.5 mg PO BID #180 tabs 01/09/23 04/25/23 Rx gabapentin 300 mg capsule 600 mg PO HS #180 caps 02/10/23 04/25/23 Rx oxycodone-acetaminophen 5 mg-325 1 tab PO Q6H PRN pain #30 tabs 04/18/23 04/25/23 Rx mg tablet (Percocet) Patient History Medical History Abdominal aortic aneurysm (~2014) S/p Type A dissection with emergent repair in 2014 - Follows with vascular - last seen 11/2022- AAA 3.3cm, iliac artery aneursym (right 2.0cm and left 3.0 cm)- all stable in size; chronic thoracic aortic dissection- stable- vascular recommended repeating imaging May 2024 Anemia due to chronic kidney disease Anxiety Atrial fibrillation Follows with [facility] cardiology (Dr. Jarvis) On Eliquis AV fistula LEFT ESRD (end stage renal disease) on dialysis [facility] in [place] Mon-Fri-Fri History of blood transfusion 12/19/21 per pt History of CHF (congestive heart failure) Hyperlipidemia Hypertension Impotence, organic Lobar pneumonia 08/2022 treated at [facility] inpatient. no current issues Lumbar spinal stenosis Neurogenic bladder Self Catheterization since Aortic repair 4-5X PER DAY Neuropathic pain PTSD (post-traumatic stress disorder) POST AORTIC DISSECTION Sacral decubitus ulcer, stage IV "stable to improved" per [place] wound clinic>WOUND CLINIC WEEKLY AND [facility] HOME NURSING 2X PER WEEK. patient's changes dressing as instructed at home. 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 [facility] [place] 3 YE[place] D/T CYSTS. inhibiting patient to ambulate. 04/25/23: awaiting for surgery to remove the spinal cyst but will need his ulcer wound repaired and healed full y first --> reason for upcoming colostomy. Wheelchair dependent Surgical History History of arthroplasty of left hip History of arthroscopy RT KNEE History of bladder surgery History of cardiac catheterization 2003 - no stents - [facility] in [place] History of cardioversion mult>FOLLOWS WITH DR. JARVIS History of cataract surgery RT/LEFT History of colonoscopy History of esophagogastroduodenoscopy (EGD) History of gastric bypass 2010 History of lumbar fusion History of open reduction and internal fixation (ORIF) procedure RT WRIST History of removal of tunneled central venous catheter (CVC) with port removal of perm cath 05/[address] Marroquin 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 2015 Did have thoracic bleeding post op- required re exploration approx 1 week after initial presentation- had ARF, spinal cord ischemia resulting in paraplegia, neurogenic bladder and neurogenic bowel. History of revision of total hip arthroplasty History of rhinoplasty History of tooth extraction History of total knee replacement RT History of transurethral resection of prostate Nausea and vomiting after administration of anesthetic agent S/P arteriovenous (AV) fistula creation left S/P debridement (06/27/21) Excisional Debridement Sacral Decubitus Ulcer down to muscle level 4cm x 6cm - Ranjeet Myers DO 06/27/2021 Excisional Debridement of Sacral Decubitus Ulcer Down to Bone, 11cm x 10cm(Not Applicable) - Ranjeet Myers DO 07/25/2021: MAC 3, ETT 7.5. S/P debridement (02/08/22) Sacral Wound Debridment, Sacral bone biopsy(Not Applicable) - Jose Le DO S/P total right hip arthroplasty Family History Grandmother Family history of diabetes mellitus Mother Gallbladder disease Father Prostate cancer Myocardial infarction Hypertension Other Family history non-contributory No family history of adverse response to anesthesia Denies family history of Ovarian cancer Breast cancer Colorectal cancer Social History Smoking Status: Never smoker Second Hand Exposure: No; Do You Dip or Chew Tobacco: No; Tobacco Cessation Education Requested by Patient: No Hx Alcohol Use: No Hx Substance Use: No Preferred Language: Finnish Communication Ability: Effective Visual Impairment: Limited Hearing Ability: Normal Appeals Representative Required: No Beliefs That Will Affect Care: None marital status: Current Living Situation: Spouse Current Living Situation Comment: Lives with at home current occupational status: retired How many Children do You have: 1 Other Information That Helps Us Care for You: No Childhood Exposure to Second-Hand Smoke: Yes (father did ) Diet: regular Diet Comment: low sugar, low phospate caffeine: Yes (tea) during the past year weight has: remained stable Dental Care, Regularly: Yes Physical Activity Frequency: Does not Exercise Physical Activity Frequency Comment: goes to PT twice a week Seatbelt Use: always Sunscreen Use: Yes Do you think of yourself as: straight/heterosexual Gender Identity: Male Assistive Devices: Wheelchair Assistive Devices Comment: Etac device at home Review of Systems Review of Systems: All systems reviewed & are unremarkable except as noted in HPI & below Physical Exam Constitutional: well developed and + thin; no acute distress and not ill appearing Eyes: + anicteric sclerae; no corneal abnormality Neck: normal visual inspection and trachea midline Respiratory: normal respiratory effort Auscultation: lungs clear to auscultation bilaterally Cardiovascular: Rate/Rhythm: regular rate Heart Sounds: normal S1, normal S2 and + murmur Extremities: + AV fistula; no edema Musculoskeletal: Extremities: no cyanosis and no clubbing Skin: + turgor decreased; no lesions Neurologic: Motor/Sensory: no tremor and no asterixis Psychiatric: Orientation: alert and oriented x 3 Results & Data Vital Signs (Past 12 Hours) Vital Signs Temp Pulse Resp BP Pulse Ox O2 Del Method 05/04/23 09:43 Room Air 05/04/23 09:43 36.4 C L 73 18 151/91 H 96 Room Air Laboratory Results Laboratory Results - last 24 hr 05/04/23 05/04/23 05/04/23 09:37 09:37 09:37 WBC 4.30 L RBC 3.12 L Hgb 10.3 L Hct 32.7 L MCV 104.8 H MCH 33.0 MCHC 31.5 L RDW Std Deviation 61.8 H RDW Coeff of Hector 16.1 H Plt Count 201 MPV 9.2 L Immature Gran % (Auto) 0.5 Neut % (Auto) 61.2 Lymph % (Auto) 17.2 [place] % (Auto) 10.2 Eos % (Auto) 9.3 Baso % (Auto) 1.6 Neut # (Auto) 2.63 Lymph # (Auto) 0.74 L [place] # (Auto) 0.44 Eos # (Auto) 0.40 Baso # (Auto) 0.07 Immature Gran # (Auto) 0.02 PT 12.1 H INR 1.1 APTT 36.0 H PTT Ratio 1.3 Sodium 138 Potassium 4.0 Chloride 97 L Carbon Dioxide 30 Anion Gap 11 BUN 51 H Creatinine 4.03 H Est Cr Clr Drug Dosing 19.1 Est GFR ( Amer) 15.6 Est GFR (Non-Af Amer) 13.5 BUN/Creatinine Ratio 12.7 Glucose 84 Calcium 9.3 Phosphorus 5.0 H Magnesium 2.4 Total Bilirubin 0.7 AST 19 ALT 15 Alkaline Phosphatase 101 Total Protein 6.4 Albumin 4.0 Globulin 2.4 L Albumin/Globulin Ratio 1.7 Diagnostic Findings SINGLE VIEW CHEST FINDINGS: An AP, portable, upright chest radiograph is compared to study dated 09/20/2022. The examination is degraded by portable technique and patient rotation. The patient is status post midline sternotomy. The heart is enlarged noting atherosclerotic calcification of the thoracic aorta. The pulmonary vasculature is noncongested. The chronic interstitial thickening is similar to previous. There is bibasilar scarring/atelectasis. No airspace consolidation or large pleural effusion is identified. No pneumothorax is seen. The bony thorax is grossly intact. Surgical clips project over the right shoulder. IMPRESSION: Cardiomegaly with no active disease in the chest. PG Care Time/CCT Total # of Minutes Spent Total Time Spent with Patient: Total time spent is greater than 50% in coordination of care (as documented) at patient's floor/unit and/or counseling patient: Coding Level of Care Code 56599 IN/OBS CONSULT LVL 4,60M Diagnoses ESRD (end stage renal disease) on dialysis N18.6; Z99.2 Anemia due to chronic kidney disease N18.9; D63.1 Sacral decubitus ulcer, stage IV L89.154
--- NOTE | 2023-05-04 11:57 | Electrocardiogram Report ---
Test Reason : Blood Pressure : / mmHG Vent. Rate : 063 BPM Atrial Rate : 220 BPM P-R Int : 000 ms QRS Dur : 128 ms QT Int : 446 ms P-R-T Axes : 000 -60 066 degrees QTc Int : 456 ms Atrial fibrillation with premature ventricular or aberrantly conducted complexes Left axis deviation Non-specific intra-ventricular conduction block Abnormal ECG When compared with ECG of 20-SEP-2022 10:48, Nonspecific T wave abnormality, improved in Lateral leads Confirmed by Kodak Jarvis ([id number]) on 05/04/2023 11:57:35 AM Referred By: Carrillo Hou Confirmed By:Kodak Jarvis
[2023-05-04] MEDS ORDERED: bisacodyL 5 MG TABEC PO ONE (15:00)
[2023-05-04] MEDS ORDERED: metroNIDAZOLE 500 MG TAB PO SCH ×2 (15:00→16:00)
[2023-05-04] MEDS ORDERED: NEOMYCIN SULFATE 500 MG PO SCH (16:00)
[2023-05-04] MEDS ORDERED: NEOMYCIN SULFATE 500 MG TAB PO SCH (16:00)
[2023-05-04] MEDS ORDERED: ACETAMINOPHEN 500 MG TAB PO PRN (16:03)
[2023-05-04] MEDS ORDERED: ALPRAZolam 0.25 MG TABLET PO PRN (16:03)
[2023-05-04] MEDS: metroNIDAZOLE 500 MG TAB PO SCH ×3 (16:21→22:55)
[2023-05-04] MEDS: NEOMYCIN SULFATE 500 MG TAB PO SCH ×3 (16:32→22:55)
[2023-05-04] MEDS: SEVELAMER HCL 800 MG TABLET PO SCH (17:29)
[2023-05-04] MEDS: CHOLECALCIFEROL 1,000 UNITS 25 MCG TAB PO SCH (21:55)
[2023-05-04] MEDS: ATORVASTATIN 20 MG TAB PO SCH (21:56)
[2023-05-04] MEDS: GABAPENTIN 300 MG CAP PO SCH (21:56)
[2023-05-04] MEDS: NORTRIPTYLINE HCL 25 MG CAP PO SCH (21:56)
[2023-05-05 04:48] LABS: Basophils # (auto) 0.09 K/uL (0.00-0.20); Basophils % (auto) 1.3 %; Eosinophils % (auto) 4.4 %; Hematocrit (blood only) 31.7 % (42.0-52.0); Hemoglobin 9.8 g/dl (14.0-18.0); Immature Granulocytes # (auto) 0.04 K/uL (0.01-0.20); Immature Granulocytes % (auto) 0.6 %; Lymphocytes # (auto) 0.65 K/uL (1.20-3.40); Lymphocytes % (auto) 9.5 %; Mean Corpuscular Hemoglobin 31.6 pg (25.0-34.0); Mean Corpuscular Hgb Conc 30.9 g/dL (32.0-36.0); Mean Corpuscular Volume 102.3 fL (80.0-100.0); Monocytes # (auto) 0.51 K/uL (0.11-0.59); Monocytes % (auto) 7.4 %; Neutrophils # (auto) 5.26 K/uL (1.40-6.50); Neutrophils % (auto) 76.8 %; Platelet Count 187 K/uL (130-400); RDW Coefficient of Variation 15.9 % (11.5-14.5); RDW Standard Deviation 59.7 fL (36.4-46.3); White Blood Count 6.85 K/ul (4.8-10.8)
[2023-05-05 05:26] LABS: BUN Creatinine Ratio 12.2 (10-20); Calcium 8.9 mg/dl (8.6-10.3); Est GFR (African American) 13.6 ml/min; Est GFR (Non-African American) 11.7 ml/min; Potassium 4.8 mmol/L (3.5-5.1)
[2023-05-05] MEDS ORDERED: cefOXitin 2,000 MG in DEXTROSE 5% 50 ML IV SCH (06:00)
[2023-05-05] MEDS ORDERED: SODIUM CHLORIDE 0.9% 1000ML IV SCH (06:00)
[2023-05-05] MEDS ORDERED: ONDANSETRON INJ 2 MG/ML 2 ML VIAL IV PRN (06:56)
[2023-05-05] MEDS ORDERED: ATROPINE SULFATE 0.1 MG/ML 10ML SYR IV PRN (06:56)
[2023-05-05] MEDS ORDERED: ePHEDrine sulfate 50 MG/ML AMP IV PRN (06:56)
[2023-05-05] MEDS ORDERED: HYDROmorphone INJ 1 MG/ML SYRINGE IV PRN (06:56)
[2023-05-05] MEDS ORDERED: ALBUMIN HUMAN 5% 12.5 GM/250 ML VIAL IV ONE (06:58)
[2023-05-05] MEDS ORDERED: fentaNYL citrate PF 100 MCG/2 ML VIAL ONE ×2 (07:07→08:03)
[2023-05-05] MEDS ORDERED: ROCURONIUM BROMIDE 10 MG/ML 5 ML VIAL IV ONE (07:07)
[2023-05-05] MEDS ORDERED: LIDOCAINE 2% 2 ML VIAL/AMP(20MG/ML) INFIL ONE (07:07)
[2023-05-05] MEDS ORDERED: PROPOFOL IV EMULSION 10 MG/ML 20 ML VIAL IV ONE (07:07)
[2023-05-05] MEDS ORDERED: LIDOCAINE 2% 20 MG/ML 5 ML SYR IV ONE (07:07)
--- NOTE | 2023-05-05 07:12 | History & Physical Report ---
Date of Service May 05, 2023 Assessment & Plan (1) Osteomyelitis of sacrum: (2) Sacral decubitus ulcer, stage IV: Plan 77-year-old gentleman with stage IV sacral decub requiring loop sigmoid colostomy for diversion of the fecal stream to allow healing of planned plastic surgery procedure. All his questions were answered, he is agreeable to proceed. Consent has been obtained. Admission and Anticipated Discharge Date Admission Date: May 04, 2023 History of Present Illness Primary Care Provider: Jasiel Pineda DO 77-year-old presents for laparoscopic loop colostomy. He has a large sacral decub and is awaiting a plastic surgery procedure, however he needs the fecal stream diverted to allow healing. He denies any pain or tenderness. He denies fevers or chills. He denies chest pain or shortness of breath. He has been off his Eliquis he finished a bowel prep yesterday. Allergies Allergy/AdvReac Type Severity Reaction Status Date / Time tetracycline Allergy Intermediate HIVES Verified 04/25/23 11:02 morphine AdvReac Intermediate Nausea Verified 04/25/23 11:02 Home Medications Medication Instructions Recorded Confirmed Type cholecalciferol (vitamin D3) 50 50 mcg PO QPM 12/31/19 04/25/23 History mcg (2,000 unit) tablet (Vitamin D3) azelastine 205.5 mcg (0.15 %) 1 spray intranasal HS PRN seasonal 09/04/20 04/25/23 Rx nasal spray allergies #30 mL acetaminophen 500 mg tablet 1,000 mg PO DIRECTED PRN Pain 07/13/21 04/25/23 History (Tylenol Extra Strength) Wheelchair (Powered) (Power #1 ea 01/04/22 04/22/23 Rx Wheelchair) vitamin B complex and vitamin C 1 cap PO QAM #30 caps 02/12/22 04/25/23 Rx no.20-folic acid 1 mg capsule (Renal Caps) atorvastatin 20 mg tablet (Lipitor) 20 mg PO QPM #90 tabs 09/10/22 04/25/23 Rx metoprolol succinate 25 mg 25 mg PO QAM #90 tabs 09/10/22 04/25/23 Rx tablet,extended release 24 hr nortriptyline 25 mg capsule 25 mg PO HS #90 caps 09/10/22 04/25/23 Rx (Pamelor) sevelamer carbonate 800 mg tablet 800 - 1,600 mg PO TID 09/20/22 04/25/23 History alprazolam 0.25 mg tablet 0.25 mg PO HS PRN Anxiety #30 tabs 12/19/22 04/25/23 Rx apixaban 2.5 mg tablet (Eliquis) 2.5 mg PO BID #180 tabs 01/09/23 04/25/23 Rx gabapentin 300 mg capsule 600 mg PO HS #180 caps 02/10/23 04/25/23 Rx oxycodone-acetaminophen 5 mg-325 1 tab PO Q6H PRN pain #30 tabs 04/18/23 04/25/23 Rx mg tablet (Percocet) Past Med/Surg History Medical History Abdominal aortic aneurysm (~2014) S/p Type A dissection with emergent repair in 2014 - Follows with vascular - last seen 11/2022- AAA 3.3cm, iliac artery aneursym (right 2.0cm and left 3.0 cm)- all stable in size; chronic thoracic aortic dissection- stable- vascular recommended repeating imaging May 2024 Anemia due to chronic kidney disease Anxiety Atrial fibrillation [place] [facility] [place] Jarvis) On Eliquis AV fistula LEFT ESRD (end stage renal disease) on dialysis [facility] in [place] Mon-Wed-Fri History of blood transfusion 12/19/21 per pt History of CHF (congestive heart failure) Hyperlipidemia Hypertension Impotence, organic Lobar pneumonia 08/2022 treated at [facility] inpatient. no current issues Lumbar spinal stenosis Neurogenic bladder Self Catheterization since Aortic repair 4-5X PER DAY Neuropathic pain PTSD (post-traumatic stress disorder) POST AORTIC DISSECTION Sacral decubitus ulcer, stage IV "stable to improved" per [place] wound clinic>WOUND CLINIC WEEKLY AND [facility] N[facility] 2X PER WEEK. patient's changes dressing as instructed at home. 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 [facility] [place] 3 YE[place] D/T CYSTS. inhibiting patient to ambulate. 04/25/23: awaiting for surgery to remove the spinal cyst but will need his ulcer wound repaired and healed fully first --> reason for upcoming colostomy. Wheelchair dependent Surgical History History of arthroplasty of left hip History of arthroscopy RT KNEE History of bladder surgery History of cardiac catheterization 2003 - no stents - [facility] in [place] History of cardioversion mult>FOLLOWS WITH DR. JARVIS History of cataract surgery RT/LEFT History of colonoscopy History of esophagogastroduodenoscopy (EGD) History of gastric bypass 2010 History of lumbar fusion History of open reduction and internal fixation (ORIF) procedure RT WRIST History of removal of tunneled central venous catheter (CVC) with port removal of perm cath 05/[address] Marroquin 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 2015 Did have thoracic bleeding post op- required re exploration approx 1 week after initial presentation- had ARF, spinal cord ischemia resulting in paraplegia, neurogenic bladder and neurogenic bowel. History of revision of total hip arthroplasty History of rhinoplasty History of tooth extraction History of total knee replacement RT History of transurethral resection of prostate Nausea and vomiting after administration of anesthetic agent S/P arteriovenous (AV) fistula creation left S/P debridement (06/27/21) Excisional Debridement Sacral Decubitus Ulcer down to muscle level 4cm x 6cm - Ranjeet Myers, DO 06/27/2021 Excisional Debridement of Sacral Decubitus Ulcer Down to Bone, 11cm x 10cm(Not Applicable) - Ranjeet Myers, 07/25/2021: MAC 3, ETT 7.5. S/P debridement (02/08/22) Sacral Wound Debridment, Sacral bone biopsy(Not Applicable) - Jose Le, DO S/P total right hip arthroplasty Family History Grandmother Family history of diabetes mellitus Mother Gallbladder disease Father Prostate cancer Myocardial infarction Hypertension Other Family history non-contributory No family history of adverse response to anesthesia Denies family history of Ovarian cancer Breast cancer Colorectal cancer Social History Smoking Status: Never smoker Second Hand Exposure: No; Do You Dip or Chew Tobacco: No; Tobacco Cessation Education Requested by Patient: No Hx Alcohol Use: No Hx Substance Use: No Preferred Language: Montenegrin Communication Ability: Effective Visual Impairment: Limited Hearing Ability: Normal Sprayer Automatic Spray Machine Required: No Beliefs That Will Affect Care: None marital status: Current Living Situation: Spouse Current Living Situation Comment: Lives with at home current occupational status: retired How many Children do You have: 1 Other Information That Helps Us Care for You: No Childhood Exposure to Second-Hand Smoke: Yes (father did ) Diet: regular Diet Comment: low sugar, low phospate caffeine: Yes (tea) during the past year weight has: remained stable Dental Care, Regularly: Yes Physical Activity Frequency: Does not Exercise Physical Activity Frequency Comment: goes to PT twice a week Seatbelt Use: always Sunscreen Use: Yes Do you think of yourself as: straight/heterosexual Gender Identity: Male Assistive Devices: Wheelchair Assistive Devices Comment: Etac device at home Review of Systems Review of Systems: All systems reviewed & are unremarkable except as noted in HPI & below Physical Exam Constitutional: WD/WN, vitals as above Eyes: PERRL, conjunctivae normal, anicteric sclerae Neck: trachea midline, no thyromegaly Respiratory: normal respiratory effort, lungs clear to auscultation Cardiovascular: RRR, no murmur, no edema Gastrointestinal (Abdomen): normal bowel sounds, soft, nontender, no hepatosplenomegaly Skin: no rashes, warm and dry Psychiatric: A+Ox3, euthymic affect Results & Data Results & Data Vital Signs (Past 12 Hours) Vital Signs Temp Pulse Pulse Resp BP Pulse Ox O2 Del Method 05/05/23 06:01 36.4 C L 74 20 165/99 H 96 Room Air 05/05/23 02:38 36.7 C 86 18 163/100 H 93 Room Air 05/04/23 22:33 82 05/04/23 22:37 36.4 C L 79 18 168/99 H 95 Room Air Code Status & VTE Plan VTE Prophylaxis Plan VTE Prophylaxis will be ordered: Yes Reason for no VTE drug order: Contraindicated
[2023-05-05] MEDS ORDERED: BUPIVACAINE 0.5 % 5 MG/1 ML MPF 30ML VIAL ONE (07:18)
--- NOTE | 2023-05-05 07:53 | Anesthesia Procedure Note ---
Anesthesia Procedure Note Arterial Line Note Patient medical history, medications, allergies and vitals reviewed. Consent: Risk / Benefits Reviewed With: PT / POA / Parent / Guardian, Accepts Plan, Informed Consent Obtained and All Questions Answered Monitors attached: Blood Pressure, CO2, EKG and Pulse Oximetry Oxygen delivery method: ETT Time out completed: Yes Premedication: General anesthesia Laterality: Right Location: Radial Hand hygeine: Soap and water and Alcohol based hand rub Equipment/Supplies: Cap, Mask and Sterile gloves Skin prep: Chloraprep Ultrasound used: Yes US equipment and supplies: Sterile Gel and Sterile Probe Cover Attempts: 1 Procedure Summary: 20 gauge angiocath advanced until return of bright red blood. Catheter threaded using seldinger technique with return of pulsatile, bright red blood. Catheter secured with tape and covered with occlusive dressing. Waveform consistent with correct arterial placement. After placement, normal perfusion was observed distal to the site of catheter placement. Post-Procedure: Pt hemodynamically stable, Pt tolerates well and No complication Anesthesia Charges Arterial Line A Line Charges: 21951 Insert Art line [facility]
[2023-05-05] MEDS ORDERED: KETAMINE 50 MG/5 ML SYRINGE ONE (08:03)
[2023-05-05] MEDS ORDERED: DEXAMETHASONE SOD INJ 4 MG/ML VIAL ONE (08:34)
[2023-05-05] MEDS ORDERED: SUGAMMADEX SODIUM 200 MG/2 ML VIAL IV ONE (08:34)
[2023-05-05] MEDS ORDERED: ONDANSETRON INJ 2 MG/ML 2 ML VIAL ONE (08:34)
--- NOTE | 2023-05-05 08:43 | Post Operative Brief Note ---
Immediate Post Op Note v1 Date of Surgery May 05, 2023 Pre & Post Diagnosis Operation Date: 05/05/23 07:15 Pre-Op Diagnosis: Sacral decubitus ulcer, stage IV Post-Op Diagnosis: Sacral decubitus ulcer, stage IV I identified the patient and participated in the time-out.: Yes Procedure Operation Date: 05/05/23 07:15 Actual Procedures p Laparoscopic Loop Sigmoid Colostomy(Not Applicable) - Carrillo Hou MD Surgeon Carrillo Hou MD Superintendent Custodian Janitor NADIA Georges assisted with tissue retraction, camera op, closure Estimated Blood Loss 5 Findings Consistent with Post-Op Diagnosis Drains Perry Catheter
--- NOTE | 2023-05-05 08:47 | Operative Report ---
Post Operative Report Pre & Post Diagnosis Operation Date: 05/05/23 07:15 Pre-Op Diagnosis: Sacral decubitus ulcer, stage IV Post-Op Diagnosis: Sacral decubitus ulcer, stage IV I identified the patient and participated in the time-out.: Yes Procedure Operation Date: 05/05/23 07:15 Actual Procedures p Laparoscopic Loop Sigmoid Colostomy(Not Applicable) - Carrillo Hou MD Surgeon Carrillo Hou MD Franchise Broker NADIA Georges assisted with tissue retraction, camera op, closure Estimated Blood Loss 5 Findings Consistent with Post-Op Diagnosis Specimens none Drains none Anesthesia Type General Complications no immediate complication Description of Procedure patient was taken to the operating room, placed supine on the operating table. A timeout was performed, perioperative antibiotics were administered, SCD boots were placed. After adequate anesthesia and analgesia was obtained, the abdomen was prepped and draped in the normal sterile fashion. Incision was made in the supraumbilical region carried down to the level of the fascia. The fascia was grasped with a trach hook, and a varies needle was used to enter the abdominal cavity. The abdomen was insufflated to a pressure of 15 mmHg. A 5 mm trocar was placed in this location. A 5 mm 30 degree laparoscope was placed into the abdominal cavity, and the abdomen was surveyed. There were no adhesions noted within the abdominal cavity. A 5 mm trocars placed in the right lower quadrant, and a 5 mm trocar was placed left lower mid quadrant at the level of the planned ostomy. The sigmoid colon was retracted and noted to be adhesed to the white line of Toldt. These adhesions were taken down with the harmonic scalpel, thereby freeing up the entire length of the sigmoid colon from the pelvic sidewall. It was then noted that the sigmoid colon would be able to be easily brought up to the anterior abdominal wall. The sigmoid colon was grasped from the right lower quadrant with a bowel grasper at the level of the proposed ostomy. Elliptical incision was then made at the level of the proposed ostomy around the left quadrant port site. The port was removed. Excess subcutaneous fat was removed down to the level of the fascia. A cruciate incision was made in the external fascia. The muscle fibers were split, and the internal fascia and the peritoneum was opened. The loop of sigmoid colon was brought through onto the anterior abdominal wall. It was secured to the fascia with 3-0 silk suture. We then closed the other port sites with 4-0 Monocryl and Dermabond. The ostomy was then matured in Suzy fashion with 3-0 Vicryl suture. An ostomy bag was placed, and dressings were applied. he tolerated the procedure without complication, was transferred in stable condition to the PACU. All instrument, needle, and sponge counts were correct at the end of the case. my household assistant was necessary throughout the procedure for tissue retraction, possible camera operation, and closure of the wounds. I understand that section 1842(b)(7)(D) of the Social Security act generally prohibits Medicare physician fee schedule payment for the services of assistants at surgery in teaching hospitals when qualified residents are available to furnish such services. I certify that the services for which payment is claimed were medically necessary and that no qualified resident was available to perform the services. I further understand that these services are subject to postpayment review by the Medicare carrier. I attest to the content of the Intraoperative Record and any orders documented t herein. Any exceptions are noted below.
[2023-05-05] MEDS: fentaNYL citrate PF 100 MCG/2 ML VIAL IV PRN ×2 (09:22→09:27)
[2023-05-05] MEDS ORDERED: MoRPHine SULFATE 2 MG/ML CARP IV PRN (09:41)
[2023-05-05] MEDS: NEPHROCAPS PO SCH (10:32)
[2023-05-05] MEDS: METOPROLOL SUCC 25MG EXT REL TAB PO SCH (10:32)
[2023-05-05] MEDS: SEVELAMER HCL 800 MG TABLET PO SCH ×3 (10:32→18:23)
[2023-05-05] MEDS: oxyCODONE/ACETAMINOPHEN 5mg/325mg TAB PO PRN ×2 (10:40→20:03)
--- NOTE | 2023-05-05 16:07 | Hospitalist Progress Note ---
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 Will resume once surgery clears Continue metoprolol succinate throughout perioperative course Plan VTE Prophylaxis - Holding Eliquis, will resume when surgery clears Diet - dialysis renal (clears) Admission and Anticipated Discharge Date Admission Date: May 05, 2023 Subjective patient just got back from the OR when I saw him this morning. He complained of some pain and discomfort at the surgical site. Otherwise he feels fine. Denies any chest pain or shortness of breath. He is getting ready to go for his dialysis this afternoon. Review of Systems Review of Systems: All systems reviewed & are unremarkable except as noted in Subjective Physical Exam Physical Exam: General: Awake, conversant Heart: S1, S2/regular rate and rhythm, no murmur rubs or gallops Lungs: Clear to auscultation bilaterally. Normal effort Abdomen: Soft/nontender/nondistended. No hepatosplenomegaly Extremities: No clubbing/cyanosis. No edema Behavior: Appropriate, cooperative Results & Data Results & Data Vital Signs (Past 12 Hours) Vital Signs Temp Pulse Pulse Pulse Pulse Resp BP 05/05/23 15:30 66 129/78 05/05/23 15:00 67 122/86 05/05/23 14:30 76 127/83 05/05/23 14:15 66 135/79 05/05/23 14:02 36.3 C L 79 05/05/23 10:15 05/05/23 11:22 36.3 C L 84 18 05/05/23 07:30 70 05/05/23 11:03 36.5 C 80 18 05/05/23 10:33 36.5 C 86 18 05/05/23 10:19 36.4 C L 82 17 05/05/23 09:45 36.5 C 78 13 05/05/23 09:15 84 19 05/05/23 09:35 79 12 05/05/23 09:25 89 18 05/05/23 09:05 89 15 05/05/23 08:59 36.1 C L 83 17 05/05/23 06:01 36.4 C L 74 20 BP BP Pulse Ox O2 Del Method O2 Flow Rate 05/05/23 15:30 05/05/23 15:00 05/05/23 14:30 05/05/23 14:15 05/05/23 14:02 05/05/23 10:15 Nasal Cannula 2 05/05/23 11:22 159/88 H 93 Nasal Cannula 2 05/05/23 07:30 05/05/23 11:03 152/86 H 93 Nasal Cannula 2 05/05/23 10:33 153/87 H 93 Nasal Cannula 2 05/05/23 10:19 158/87 H 92 Nasal Cannula 2 05/05/23 09:45 149/95 H 95 Nasal Cannula 2 05/05/23 09:15 165/105 H 165/88 H 95 Room Air 05/05/23 09:35 155/98 H 161/78 H 95 Nasal Cannula 2 05/05/23 09:25 161/92 H 168/86 H 95 Nasal Cannula 2 05/05/23 09:05 153/99 H 145/99 H 100 Oxymask 10 05/05/23 08:59 165/101 H 181/95 H 100 Oxymask 10 05/05/23 06:01 165/99 H 96 Room Air PG Care Time/CCT Total # of Minutes Spent Total Time Spent with Patient: Total time spent is greater than 50% in coordination of care (as documented) at patient's floor/unit and/or counseling patient: Coding Level of Care Code 94017 SUB INP/OBS CARE 2MIN Diagnoses Sacral decubitus ulcer, stage IV L89.154 Sleep apnea G47.30 ESRD (end stage renal disease) on dialysis N18.6; Z99.2 Abdominal aortic aneurysm I71.4 Presence of rupture: without rupture Anemia due to chronic kidney disease N18.9; D63.1 Atrial fibrillation I48.2 Atrial fibrillation type: permanent (4) Abdominal aortic aneurysm Presence of rupture: without rupture Qualified Code(s): I71.4 - Abdominal aortic aneurysm, without rupture (6) Atrial fibrillation Atrial fibrillation type: permanent Qualified Code(s): I48.2 - Chronic atrial fibrillation
--- NOTE | 2023-05-05 16:27 | Nephrology Progress Note ---
Date of Service May 05, 2023 Assessment & Plan (1) ESRD (end stage renal disease) on dialysis: Plan: HD MWF. Orders for HD entered into EHR and reviewed with RN. Sylvester is tolerating HD well. AVF has been functioning well. Outpatient HD Rx has been MWF 3h 45m on a 180 optiflux at Qb 450 Qd 800, 3 K, 2.5 calcium. EDW 85 kg. Medications appropriately dosed for kidney function. Low potassium diet. Continue daily renal MVI. (2) Anemia due to chronic kidney disease: Plan: Chronic, stable. Maintained on Micera 150 mg Q2 weeks at HD. Venofer 100 mg provided with treatments. (3) Sacral decubitus ulcer, stage IV: Plan: s/p laparoscopic loop sigmoid colostomy today by Dr. Hou. Admission and Anticipated Discharge Date Admission Date: May 05, 2023 Subjective No acute events overnight. Guanaco was seen and evaluated on hemodialysis this afternoon. Tolerating treatment well. No complications noted. Surgery was uncomplicated. Some mild pain and discomfort on the abdomen noted but Sylvester otherwise feels well. Review of Systems Review of Systems: All systems reviewed & are unremarkable except as noted in HPI & below Physical Exam Constitutional: well developed and + thin; no acute distress and not ill appearing Eyes: + anicteric sclerae; no corneal abnormality ENMT: Mouth: no oral mucosal abnormality and oral mucous membranes not dry Neck: normal visual inspection and trachea midline Respiratory: normal respiratory effort Auscultation: lungs clear to auscultation bilaterally Cardiovascular: Rate/Rhythm: regular rate Heart Sounds: normal S1, normal S2 and + murmur Extremities: + AV fistula; no edema Musculoskeletal: Extremities: no cyanosis and no clubbing Skin: + turgor decreased; no lesions Neurologic: Motor/Sensory: no tremor and no asterixis Psychiatric: Orientation: alert and oriented x 3 Results & Data Vital Signs (Past 12 Hours) Vital Signs Temp Pulse Pulse Pulse Pulse Resp BP 05/05/23 16:00 81 128/84 05/05/23 15:30 66 129/78 05/05/23 15:00 67 122/86 05/05/23 14:30 76 127/83 05/05/23 14:15 66 135/79 05/05/23 14:02 36.3 C L 79 05/05/23 10:15 05/05/23 11:22 36.3 C L 84 18 10/09/23 07:30 70 05/05/23 11:03 36.5 C 80 18 05/05/23 10:33 36.5 C 86 18 05/05/23 10:19 36.4 C L 82 17 05/05/23 09:45 36.5 C 78 13 05/05/23 09:15 84 19 05/05/23 09:35 79 12 05/05/23 09:25 89 18 05/05/23 09:05 89 15 05/05/23 08:59 36.1 C L 83 17 05/05/23 06:01 36.4 C L 74 20 BP BP Pulse Ox O2 Del Method O2 Flow Rate 05/05/23 16:00 05/05/23 15:30 05/05/23 15:00 05/05/23 14:30 05/05/23 14:15 05/05/23 14:02 05/05/23 10:15 Nasal Cannula 2 05/05/23 11:22 159/88 H 93 Nasal Cannula 2 05/05/23 07:30 05/05/23 11:03 152/86 H 93 Nasal Cannula 2 05/05/23 10:33 153/87 H 93 Nasal Cannula 2 05/05/23 10:19 158/87 H 92 Nasal Cannula 2 05/05/23 09:45 149/95 H 95 Nasal Cannula 2 05/05/23 09:15 165/105 H 165/88 H 95 Room Air 05/05/23 09:35 155/98 H 161/78 H 95 Nasal Cannula 2 05/05/23 09:25 161/92 H 168/86 H 95 Nasal Cannula 2 05/05/23 09:05 153/99 H 145/99 H 100 Oxymask 10 05/05/23 08:59 165/101 H 181/95 H 100 Oxymask 10 05/05/23 06:01 165/99 H 96 Room Air Laboratory Results Laboratory Results - last 24 hr 05/05/23 05/05/23 04:17 04:17 WBC 6.85 RBC 3.10 L Hgb 9.8 L Hct 31.7 L MCV 102.3 H MCH 31.6 MCHC 30.9 L RDW Std Deviation 59.7 H RDW Coeff of Hector 15.9 H Plt Count 187 MPV 9.0 L Immature Gran % (Auto) 0.6 Neut % (Auto) 76.8 Lymph % (Auto) 9.5 Winn % (Auto) 7.4 Eos % (Auto) 4.4 Baso % (Auto) 1.3 Neut # (Auto) 5.26 Lymph # (Auto) 0.65 L Winn # (Auto) 0.51 Eos # (Auto) 0.30 Baso # (Auto) 0.09 Immature Gran # (Auto) 0.04 Sodium 134 L Potassium 4.8 Chloride 97 L Carbon Dioxide 25 Anion Gap 12 H BUN 55 H Creatinine 4.52 H* D Est Cr Clr Drug Dosing 17.0 Est GFR ( Amer) 13.6 Est GFR (Non-Af Amer) 11.7 BUN/Creatinine Ratio 12.2 Glucose 85 Calcium 8.9 PG Care Time/CCT Total # of Minutes Spent Total Time Spent with Patient: Total time spent is greater than 50% in coordination of care (as documented) at patient's floor/unit and/or counseling patient: Coding Level of Care Code 74430 SUB INP/OBS CARE 3/50MIN Diagnoses ESRD (end stage renal disease) on dialysis N18.6; Z99.2 Anemia due to chronic kidney disease N18.9; D63.1 Sacral decubitus ulcer, stage IV L89.154
[2023-05-05] MEDS: CHOLECALCIFEROL 1,000 UNITS 25 MCG TAB PO SCH (20:47)
[2023-05-05] MEDS: GABAPENTIN 300 MG CAP PO SCH (20:48)
[2023-05-05] MEDS: NORTRIPTYLINE HCL 25 MG CAP PO SCH (20:48)
[2023-05-05] MEDS: ATORVASTATIN 20 MG TAB PO SCH (20:48)
[2023-05-06 07:58] LABS: Basophils # (auto) 0.05 K/uL (0.00-0.20); Basophils % (auto) 0.7 %; Eosinophils # (auto) 0.03 K/uL (0.00-0.50); Eosinophils % (auto) 0.4 %; Hematocrit (blood only) 32.5 % (42.0-52.0); Hemoglobin 9.9 g/dl (14.0-18.0); Immature Granulocytes # (auto) 0.02 K/uL (0.01-0.20); Immature Granulocytes % (auto) 0.3 %; Lymphocytes # (auto) 0.53 K/uL (1.20-3.40); Lymphocytes % (auto) 7.5 %; Mean Corpuscular Hemoglobin 31.9 pg (25.0-34.0); Mean Corpuscular Hgb Conc 30.5 g/dL (32.0-36.0); Mean Corpuscular Volume 104.8 fL (80.0-100.0); Mean Platelet Volume 8.9 fL (9.4-12.4); Monocytes # (auto) 0.59 K/uL (0.11-0.59); Monocytes % (auto) 8.4 %; Neutrophils # (auto) 5.81 K/uL (1.40-6.50); Neutrophils % (auto) 82.7 %; Platelet Count 185 K/uL (130-400); RDW Coefficient of Variation 15.9 % (11.5-14.5); White Blood Count 7.03 K/ul (4.8-10.8)
[2023-05-06] MEDS: METOPROLOL SUCC 25MG EXT REL TAB PO SCH (08:24)
[2023-05-06] MEDS: NEPHROCAPS PO SCH (08:24)
[2023-05-06] MEDS: SEVELAMER HCL 800 MG TABLET PO SCH ×3 (08:24→17:45)
[2023-05-06 08:25] LABS: BUN Creatinine Ratio 8.4 (10-20); Creatinine Clr Calc Pharmacy 24.9 ml/min; Est GFR (African American) 21.6 ml/min; Est GFR (Non-African American) 18.6 ml/min; Magnesium 2.2 mg/dl (1.7-2.4); Potassium 4.1 mmol/L (3.5-5.1)
--- NOTE | 2023-05-06 10:39 | Nephrology Progress Note ---
Date of Service May 06, 2023 Assessment & Plan (1) ESRD (end stage renal disease) on dialysis: Plan: HD MWF. AVF functioning well. Completed treatment yesterday without complications. Adequate clearance. Volume status controlled. Outpatient HD Rx has been MWF 3h 45m on a 180 optiflux at Qb 450 Qd 800, 3 K, 2.5 calcium. EDW 85 kg. Medications appropriately dosed for kidney function. Low potassium diet. Continue daily renal MVI. (2) Anemia due to chronic kidney disease: Plan: Chronic, stable. Maintained on Micera 150 mg Q2 weeks at HD. Venofer 100 mg provided with treatments. (3) Sacral decubitus ulcer, stage IV: Plan: s/p laparoscopic loop sigmoid colostomy today by Dr. Hou. Admission and Anticipated Discharge Date Admission Date: May 05, 2023 Subjective No acute events overnight. Tolerated HD well yesterday. No complications. POD#1. Overall feels well. Tolerating liquid diet. Stool output noted. Denies pain. Diet is being advanced. Review of Systems Review of Systems: All systems reviewed & are unremarkable except as noted in HPI & below Physical Exam Constitutional: well developed and + thin; no acute distress and not ill appearing Eyes: + anicteric sclerae; no corneal abnormality ENMT: Mouth: no oral mucosal abnormality and oral mucous membranes not dry Neck: normal visual inspection and trachea midline Respiratory: normal respiratory effort Auscultation: lungs clear to auscultation bilaterally Cardiovascular: Rate/Rhythm: regular rate Heart Sounds: normal S1, normal S2 and + murmur Extremities: + AV fistula; no edema Musculoskeletal: Extremities: no cyanosis and no clubbing Skin: + turgor decreased; no lesions Neurologic: Motor/Sensory: no tremor and no asterixis Psychiatric: Orientation: alert and oriented x 3 Results & Data Vital Signs (Past 12 Hours) Vital Signs Temp Pulse Pulse Resp BP BP Pulse Ox 05/06/23 10:24 76 05/06/23 07:53 36.5 C 77 16 146/77 H 94 05/06/23 04:39 36.8 C 79 18 144/79 H 96 05/06/23 03:08 36.5 C 75 16 144/79 H 96 05/05/23 22:39 O2 Del Method 05/06/23 10:24 05/06/23 07:53 Room Air 05/06/23 04:39 Room Air, BiPAP 05/06/23 03:08 Room Air 05/05/23 22:39 Room Air Laboratory Results Laboratory Results - last 24 hr 05/06/23 05/06/23 07:41 07:41 WBC 7.03 RBC 3.10 L Hgb 9.9 L Hct 32.5 L MCV 104.8 H MCH 31.9 MCHC 30.5 L RDW Std Deviation 62.0 H RDW Coeff of Hector 15.9 H Plt Count 185 MPV 8.9 L Immature Gran % (Auto) 0.3 Neut % (Auto) 82.7 Lymph % (Auto) 7.5 Sawyer % (Auto) 8.4 Eos % (Auto) 0.4 Baso % (Auto) 0.7 Neut # (Auto) 5.81 Lymph # (Auto) 0.53 L Sawyer # (Auto) 0.59 Eos # (Auto) 0.03 Baso # (Auto) 0.05 Immature Gran # (Auto) 0.02 Sodium 139 Potassium 4.1 Chloride 103 Carbon Dioxide 26 Anion Gap 10 BUN 26 H D Creatinine 3.09 H D Est Cr Clr Drug Dosing 24.9 Est GFR ( Amer) 21.6 Est GFR (Non-Af Amer) 18.6 BUN/Creatinine Ratio 8.4 L Glucose 95 Calcium 9.0 Magnesium 2.2 PG Care Time/CCT Total # of Minutes Spent Total Time Spent with Patient: Total time spent is greater than 50% in coordination of care (as documented) at patient's floor/unit and/or counseling patient: Coding Level of Care Code 45751 SUB INP/OBS CARE 3/50MIN Diagnoses ESRD (end stage renal disease) on dialysis N18.6; Z99.2 Anemia due to chronic kidney disease N18.9; D63.1 Sacral decubitus ulcer, stage IV L89.154
--- NOTE | 2023-05-06 13:27 | Surgery Progress Note ---
Date of Service May 06, 2023 Assessment & Plan (1) Osteomyelitis of sacrum: (2) ESRD (end stage renal disease) on dialysis: (3) Sacral decubitus ulcer, stage IV: Plan POD #1, doing well advance diet as tolerated OOB to chair DVT prophylaxis HD tomorrow possible D/C tomorrow Admission and Anticipated Discharge Date Admission Date: May 05, 2023 Subjective doing well. no nausea/vomiting. dialysis yesterday. tolerating clears. ostomy working Physical Exam Physical Exam: AFVSS NAD A&Ox3 Abd soft, mild TTP incisions C/D/I with dermabond ostomy pink, viable, gas in bag Results & Data Vital Signs (Past 12 Hours) Vital Signs Temp Pulse Pulse Resp BP BP Pulse Ox 05/06/23 12:08 36.5 C 70 16 150/81 H 97 05/06/23 10:24 76 05/06/23 07:53 36.5 C 77 16 146/77 H 94 05/06/23 04:39 36.8 C 79 18 144/79 H 96 05/06/23 03:08 36.5 C 75 16 144/79 H 96 O2 Del Method 05/06/23 12:08 Room Air 05/06/23 10:24 05/06/23 07:53 Room Air 05/06/23 04:39 Room Air, BiPAP 05/06/23 03:08 Room Air
--- NOTE | 2023-05-06 15:37 | Hospitalist Progress Note ---
Date of Service May 06, 2023 Assessment & Plan (1) Sacral decubitus ulcer, stage IV: Plan: status post laparoscopic diverting colostomy done 05/05 Surgery team on board Recommended advancing diet. 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 Will resume once surgery clears Continue metoprolol succinate throughout perioperative course Plan VTE Prophylaxis - Holding Eliquis, will resume when surgery clears Diet - dialysis renal (clears) Admission and Anticipated Discharge Date Admission Date: May 05, 2023 Subjective Patient feels well. Denies chest pain or shortness of breath. Postsurgical pain is tolerable. Review of Systems Review of Systems: All systems reviewed & are unremarkable except as noted in Subjective Physical Exam Physical Exam: General: Awake, conversant Heart: S1, S2/regular rate and rhythm, no murmur rubs or gallops Lungs: Clear to auscultation bilaterally. Normal effort Abdomen: Soft/nontender/nondistended. No hepatosplenomegaly. Colostomy bag in place Extremities: No clubbing/cyanosis. No edema Behavior: Appropriate, cooperative Results & Data Results & Data Vital Signs (Past 12 Hours) Vital Signs Temp Pulse Pulse Resp BP BP Pulse Ox 05/06/23 12:08 36.5 C 70 16 150/81 H 97 05/06/23 10:24 76 05/06/23 07:53 36.5 C 77 16 146/77 H 94 05/06/23 04:39 36.8 C 79 18 144/79 H 96 O2 Del Method 05/06/23 12:08 Room Air 05/06/23 10:24 05/06/23 07:53 Room Air 05/06/23 04:39 Room Air, BiPAP Laboratory Results Abnormal lab results 05/06/23 05/06/23 Range/Units 07:41 07:41 RBC 3.10 L (4.70-6.10) M/uL Hgb 9.9 L (14.0-18.0) g/dl Hct 32.5 L (42.0-52.0) % MCV 104.8 H (80.0-100.0) fL MCHC 30.5 L (32.0-36.0) g/dL RDW Std Deviation 62.0 H (36.4-46.3) fL RDW Coeff of Hector 15.9 H (11.5-14.5) % MPV 8.9 L (9.4-12.4) fL Lymph # (Auto) 0.53 L (1.20-3.40) K/uL BUN 26 H D (6-23) mg/dl Creatinine 3.09 H D (0.6-1.4) mg/dl BUN/Creatinine Ratio 8.4 L (10-20) PG Care Time/CCT Total # of Minutes Spent Total Time Spent with Patient: Total time spent is greater than 50% in coordination of care (as documented) at patient's floor/unit and/or counseling patient: Coding Level of Care Code 72694 SUB INP/OBS CARE 2/35MIN Diagnoses Sacral decubitus ulcer, stage IV L89.154 Sleep apnea G47.30 ESRD (end stage renal disease) on dialysis N18.6; Z99.2 Abdominal aortic aneurysm I71.4 Presence of rupture: without rupture Anemia due to chronic kidney disease N18.9; D63.1 Atrial fibrillation I48.2 Atrial fibrillation type: permanent (4) Abdominal aortic aneurysm Presence of rupture: without rupture Qualified Code(s): I71.4 - Abdominal aortic aneurysm, without rupture (6) Atrial fibrillation Atrial fibrillation type: permanent Qualified Code(s): I48.2 - Chronic atrial fibrillation
[2023-05-06] MEDS: CHOLECALCIFEROL 1,000 UNITS 25 MCG TAB PO SCH (20:29)
[2023-05-06] MEDS: GABAPENTIN 300 MG CAP PO SCH (20:29)
[2023-05-06] MEDS: NORTRIPTYLINE HCL 25 MG CAP PO SCH (20:30)
[2023-05-06] MEDS: ATORVASTATIN 20 MG TAB PO SCH (20:30)
[2023-05-07 06:27] LABS: Hematocrit (blood only) 32.9 % (42.0-52.0); Hemoglobin 9.8 g/dl (14.0-18.0); Mean Corpuscular Hemoglobin 31.4 pg (25.0-34.0); Mean Corpuscular Hgb Conc 29.8 g/dL (32.0-36.0); Mean Corpuscular Volume 105.4 fL (80.0-100.0); Mean Platelet Volume 9.3 fL (9.4-12.4); Platelet Count 179 K/uL (130-400); RDW Coefficient of Variation 15.7 % (11.5-14.5); Red Blood Count 3.12 M/uL (4.70-6.10)
[2023-05-07 06:37] LABS: Albumin Level 3.5 gm/dl (3.4-5.0); BUN Creatinine Ratio 7.8 (10-20); Calcium 8.6 mg/dl (8.6-10.3); Creatinine Clr Calc Pharmacy 17.9 ml/min; Est GFR (African American) 15.3 ml/min; Est GFR (Non-African American) 13.2 ml/min; Phosphorus 4.9 mg/dl (2.5-4.9); Potassium 4.1 mmol/L (3.5-5.1)
--- NOTE | 2023-05-07 10:37 | Nephrology Progress Note ---
Date of Service May 07, 2023 Assessment & Plan (1) ESRD (end stage renal disease) on dialysis: Plan: HD MWF. AVF functioning well. Orders for HD entered into the EHR and reviewed with skylights assembler. Tolerating treatment well. Qb at goal. Outpatient HD Rx has been MWF 3h 45m on a 180 optiflux at Qb 450 Qd 800, 3 K, 2.5 calcium. EDW 85 kg. Medications appropriately dosed for kidney function. Low potassium diet. Continue daily renal MVI. (2) Anemia due to chronic kidney disease: Plan: Chronic, stable. Maintained on Micera 150 mg Q2 weeks at HD. Venofer 100 mg provided with treatments. (3) Sacral decubitus ulcer, stage IV: Plan: s/p laparoscopic loop sigmoid colostomy today by Dr. Hou. Admission and Anticipated Discharge Date Admission Date: May 05, 2023 Subjective No acute events overnight. Sylvester was seen and evaluated during HD today. He is tolerating HD well. Recovered well from surgery. Good ostomy output. Advanced to regular diet. Denies pain. Review of Systems Review of Systems: All systems reviewed & are unremarkable except as noted in HPI & below Physical Exam Constitutional: well developed and + thin; no acute distress and not ill appearing Eyes: + anicteric sclerae; no corneal abnormality ENMT: Mouth: no oral mucosal abnormality and oral mucous membranes not dry Neck: normal visual inspection and trachea midline Respiratory: normal respiratory effort Auscultation: lungs clear to auscultation bilaterally Cardiovascular: Rate/Rhythm: regular rate Heart Sounds: normal S1, normal S2 and + murmur Extremities: + AV fistula; no edema Musculoskeletal: Extremities: no cyanosis and no clubbing Skin: + turgor decreased; no lesions Neurologic: Motor/Sensory: no tremor and no asterixis Psychiatric: Orientation: alert and oriented x 3 Results & Data Vital Signs (Past 12 Hours) Vital Signs Temp Pulse Pulse Resp BP BP BP 05/07/23 10:00 74 121/83 05/07/23 09:30 86 124/90 05/07/23 09:04 112 H 05/07/23 07:38 36.7 C 79 16 138/82 05/07/23 04:00 36.7 C 81 18 132/83 05/06/23 23:30 36.7 C 81 18 134/86 10/10/23 23:56 Pulse Ox O2 Del Method 10/11/23 10:00 05/07/23 09:30 05/07/23 09:04 05/07/23 07:38 96 Room Air 05/07/23 04:00 94 CPAP 05/06/23 23:30 95 Room Air 05/06/23 23:56 Room Air Laboratory Results Laboratory Results - last 24 hr 05/07/23 05/07/23 05:27 05:27 WBC 5.60 RBC 3.12 L Hgb 9.8 L Hct 32.9 L MCV 105.4 H MCH 31.4 MCHC 29.8 L RDW Std Deviation 62.0 H RDW Coeff of Hector 15.7 H Plt Count 179 MPV 9.3 L Sodium 137 Potassium 4.1 Chloride 104 Carbon Dioxide 25 Anion Gap 8 BUN 32 H Creatinine 4.11 H D Est Cr Clr Drug Dosing 17.9 Est GFR ( Amer) 15.3 Est GFR (Non-Af Amer) 13.2 BUN/Creatinine Ratio 7.8 L Glucose 85 Calcium 8.6 Phosphorus 4.9 Albumin 3.5 PG Care Time/CCT Total # of Minutes Spent Total Time Spent with Patient: Total time spent is greater than 50% in coordination of care (as documented) at patient's floor/unit and/or counseling patient: Coding Level of Care Code 05098 SUB INP/OBS CARE 3/50MIN Diagnoses ESRD (end stage renal disease) on dialysis N18.6; Z99.2 Anemia due to chronic kidney disease N18.9; D63.1 Sacral decubitus ulcer, stage IV L89.154
[2023-05-07] MEDS: NEPHROCAPS PO SCH (13:45)
[2023-05-07] MEDS: SEVELAMER HCL 800 MG TABLET PO SCH ×2 (13:45)
[2023-05-07] MEDS: METOPROLOL SUCC 25MG EXT REL TAB PO SCH (13:45)
--- NOTE | 2023-05-07 16:46 | Discharge Summary ---
Date of Service May 07, 2023 Admission HPI Per Admitting Provider 77-year-old presents for laparoscopic loop colostomy. He has a large sacral decub and is awaiting a plastic surgery procedure, however he needs the fecal stream diverted to allow healing. He denies any pain or tenderness. He denies fevers or chills. He denies chest pain or shortness of breath. He has been off his Eliquis he finished a bowel prep yesterday. Admission Exam Per Admitting Provider Constitutional: well developed, well nourished, cooperative and comfortable Eyes: PERRL, conjunctivae normal, anicteric sclerae ENMT: external ear and nose normal, oropharynx normal Neck: trachea midline, no thyromegaly Respiratory: normal respiratory effort Auscultation: + crackles (inspiratory in b/l lower lungs) Cardiovascular: Rate/Rhythm: regular rate and regular rhythm Extremities: no calf tenderness and no edema Gastrointestinal (Abdomen): Inspection/Auscultation: abdomen normal to inspection Percussion/Palpation: abdomen soft; abdomen nontender Skin: no rashes, warm and dry Principal Diagnosis Sacral decubitus ulcer, stage IV Status post laparoscopic loop sigmoid colostomy Discharge Exam General: Awake, conversant Heart: S1, S2/regular rate and rhythm, no murmur rubs or gallops Lungs: Clear to auscultation bilaterally. Normal effort Abdomen: Soft/nontender/nondistended. No hepatosplenomegaly. Colostomy bag in place Extremities: No clubbing/cyanosis. No edema Behavior: Appropriate, cooperative Discharge Data Allergies Allergy/AdvReac Type Severity Reaction Status Date / Time tetracycline Allergy Intermediate HIVES Verified 04/25/23 11:02 morphine AdvReac Intermediate Nausea Verified 04/25/23 11:02 Consultations 05/04/23 09:10 Consult General Surgery Routine 05/04/23 10:31 Consult Nephrology Routine Procedures Performed Operation Date: 05/05/23 07:15 Actual Procedures p Laparoscopic Loop Sigmoid Colostomy(Not Applicable) - Carrillo Hou MD Hospital Course (1) Sacral decubitus ulcer, stage IV: status post laparoscopic diverting colostomy done 05/05 Surgery team cleared the patient for discharge Tolerating diet (2) Sleep apnea: CPAP HS (3) ESRD (end stage renal disease) on dialysis: nephrology managed dialysis. 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 Continue metoprolol succinate throughout perioperative course Total Time Total Time Spent Total Time Spent (In Minutes): 35 Discharge Plan Discharge Items Patient Disposition: Home - Home Health Services Reason For Visit: SACRAL ULCER, NEED FOR DIVERTING LOOP COLOSTOMY Discharge Diagnosis: Sacral decubitus ulcer, stage IV Status post laparoscopic loop sigmoid colostomy Activity: Resume your previous activity Non-emergency contact: Primary Care Provider Call non-emergency contact if: you have any medication questions and your symptoms worsen Follow-up/Referrals: Jasiel Pineda DO [Primary Care Provider] - 05/14/23 2:00 pm Diet: Regular Addtl Attending Provider Instructions: Advised to follow-up with PCP in 1 week Pending Studies at Discharge: No Stand-Alone Forms: [facility] Medications and DC Order Prescriptions: Continued azelastine 0.15 % (205.5 mcg) spray,non-aerosol 1 spray INTNAS HS PRN (Reason: seasonal allergies) Qty: 30 2RF Rx Instructions: administer into each nostril (DME) Power Wheelchair Device See Rx Instructions .Route Qty: 1 0RF Rx Instructions: POWER WHEELCHAIR, DX: R53.1, R26.2 Eliquis 2.5 mg tablet 2.5 mg PO BID Qty: 180 3RF gabapentin 300 mg capsule 600 mg PO HS Qty: 180 5RF oxycodone-acetaminophen [Percocet] 5-325 mg tablet 1 tab PO Q6H PRN (Reason: pain) Qty: 30 0RF atorvastatin [Lipitor] 20 mg tablet 20 mg PO QPM Qty: 90 4RF metoprolol succinate 25 mg tablet extended release 24 hr 25 mg PO QAM Qty: 90 3RF nortriptyline [Pamelor] 25 mg capsule 25 mg PO HS Qty: 90 3RF alprazolam 0.25 mg tablet 0.25 mg PO HS PRN (Reason: Anxiety) Qty: 30 0RF cholecalciferol (vitamin D3) [Vitamin D3] 50 mcg (2,000 unit) Tablet 50 mcg PO QPM sevelamer carbonate 800 mg tablet 800 - 1,600 mg PO TID Rx Instructions: 1 a breakfast, one 1 at lunch and two at dinner acetaminophen [Tylenol Extra Strength] 500 mg Tablet 1,000 mg PO DIRECTED PRN (Reason: Pain) Renal Caps 1 mg Capsule 1 cap PO QAM Qty: 30 0RF Discharge Orders: Discharge Order (Routine); Ordered 05/07/23 Ordered By: Marcie Emerson Admission Data Admit Date/Time: 05/05/23 11:04 Attending Provider: Marcie Emerson Admit Provider: Low Caban Primary Care Provider: Jasiel Pineda Other Providers: Carrillo Hou ; Gilbert Paul ; [facility] Other Interventions: Discharge Summary Assessment (RN) Last Done: 05/07/23 15:44 Coding Level of Care Code 27281 INP/OBS DISCH >30 MIN Diagnoses Sacral decubitus ulcer, stage IV L89.154 Sleep apnea G47.30 ESRD (end stage renal disease) on dialysis N18.6; Z99.2 Abdominal aortic aneurysm I71.4 Presence of rupture: without rupture Anemia due to chronic kidney disease N18.9; D63.1 Atrial fibrillation I48.2 Atrial fibrillation type: permanent
== END 2023-05-07 16:39 | disposition home health service (06) | DRG 981 ==
LOC: 2W → SUATTDRO 09:26 → EDSTATUS 05-05 07:15 → PREINTOOBSV 05-05 09:18

== ENCOUNTER 2023-08-10 14:55 | Inpatient (IN) ==
--- NOTE | 2023-08-10 15:25 | Emergency Department Note ---
Impression & Plan Pneumonia, ESRD (end stage renal disease) on dialysis, Generalized weakness, Hypoxia ED Provider Note NAME: JENNIFER STAPLETON AGE: 78 SEX: M ARRIVES VIA: Ambulance INFORMANT: Patient ED PROVIDER(S): Jonathan Ricci MD CHIEF COMPLAINT: Weakness. PLAN: Disposition: Admit MEDICAL DECISION MAKING: The patient is a pleasant 78-year-old gentleman with a past medical history of end-stage renal disease on hemodialysis Friday, history of atrial fibrillation on Eli, anemia of chronic disease, history of lumbar stenosis and left lower extremity weakness resulting in immobility, neurogenic bladder with chronic indwelling Perry catheter with monthly changes, chronic osteomyelitis and sacral ulcer, currently being managed at the [facility] with recent colostomy in April 2023 in preparation for reconstructive surgery in August who presents to the emergency department via EMS and then accompanied by his for evaluation of generalized weakness that progressed rapidly throughout today where he was noted to have mild hypoxia at 80% on room air by EMS and placed on 2 L nasal cannula. They report that he recently had an outpatient CT scan to monitor and aortic aneurysm which was stable. There was question of a "lung density" which at the time was not thought to be pneumonia as the patient did not have symptoms in that moment. They deny any cough or congestion. Denies any fevers. They deny any nausea, vomiting. They deny any change in his urination. On my evaluation the patient is fatigued appearing but no distress, afebrile with stable vital signs. O2 saturation is mid 90s on 2 L nasal cannula. He appears clinically dry. He has diminished breath sounds of bilateral lung thomas and otherwise clear anteriorly. Patient exhibits generalized weakness and his chronic left lower extremity weakness/paresis is at baseline secondary to history of lumbar stenosis. EKG without overt acute ischemia. Chest x-ray demonstrates patchy airspace consolidation in the right midlung and right mid base which is suspicious for pneumonia given the clinical context. WBC 14.7 with neutrophil predominance though no left shift, nonspecific. H/H similar to prior values. Platelets within normal limits. Creatinine 4.3 in the setting of known end-stage renal disease on hemodialysis. Lactic acid 1.3, within normal limits. LFTs without significant abnormality. High-sensitivity troponin initially 40 with delta high-sensitivity troponin 31, nonspecific and in setting of the patient's end-stage renal disease. Procalcitonin is elevated at 0.58. TSH within normal limits. UA collected after catheter change and demonstrates 2+ leuk esterase, WBCs but with 10-30 epithelial cells present and no bacteria. Respiratory BioFire was negative. Given the patient's leukocytosis and procalcitonin and suspicious chest x-ray blood cultures were obtained and treatment initiated with cefepime empirically. This would also treat possible urinary infection. MRSA swab was negative. Findings reviewed with the patient and his at the bedside. They agree to plan for admission for further management. Case was discussed with WILMAN Mcdonald PAC, with Dr. Hay [facility] hospitalist who will evaluate the patient for admission. Triage Nursing notes reviewed and agree them. Prior/external medical records reviewed Vital Signs: reviewed Differential diagnosis: Infection, dehydration, metabolic abnormality, hypo/hyperglycemia, electrolyte disturbance, anemia, hypoxia, cardiac sources, intracerebral event, toxicologic, neurologic, as well as other pathologies. ER treatment provided: See below. Diagnostics interpreted by me: ECG: Atrial fibrillation, 78 bpm, no ectopy, left anterior fascicular block, LVH, no overt ST elevation or depression, QTc 467, QRS 124 Cardiac Monitoring: An order for continuous cardiac monitoring was placed and demonstrated Atrial fibrillation, 78 bpm, no ectopy. Laboratory studies: See below Imaging studies: See below Consultation(s): WILMAN Mcdonald PAC, with Dr. Hay [facility] hospitalist HPI: The patient is a pleasant 78-year-old gentleman with a past medical history of end-stage renal disease on hemodialysis Friday, history of atrial fibrillation on Eliqu, anemia of chronic disease, history of lumbar stenosis and left lower extremity weakness resulting in immobility, neurogenic bladder with chronic indwelling Perry catheter with monthly changes, chronic osteomyelitis and sacral ulcer, currently being managed at the wound center with recent colostomy in April 2023 in preparation for reconstructive surgery in August who presents to the emergency department via EMS and then accompanied by his for evaluation of generalized weakness that progressed rapidly throughout today where he was noted to have mild hypoxia at 80% on room air by EMS and placed on 2 L nasal cannula. They report that he recently had an outpatient CT scan to monitor and aortic aneurysm which was stable. There was question of a "lung density" which at the time was not thought to be pneumonia as the patient did not have symptoms in that moment. They deny any cough or congestion. Denies any fevers. They deny any nausea, vomiting. They deny any change in his urination. ROS: See above HPI for pertinent positives & negatives. A total of 10 systems reviewed and were otherwise negative. VITALS:See Below PHYSICAL EXAMINATION: GENERAL: Awake, alert, Fatigued-appearing, in no distress HENT: Normocephalic, atraumatic. Oropharynx with dry mucous membranes and otherwise unremarkable. EYES: Normal conjunctiva. Sclera non-icteric. EOMI. No nystamgus. PEARRL. NECK: Supple. No nuchal rigidity. FROM. No JVD. RESPIRATORY: Diminished breath sounds at bilateral bases and otherwise clear to auscultation. CARDIAC: Regular rate, irregular rhythm. Extremities warm and well perfused. Pulses equal. ABDOMEN: Soft, non-distended. No tenderness to palpation. No rebound or guarding. LLQ ostomy site c/d/i. MUSCULOSKELETAL: Chest examination reveals no tenderness. The back is symmetrical on inspection without obvious abnormality. There is no CVA tenderness to palpation. No joint edema. Chronic large stage IV sacral ulcer. LOWER EXTREMITIES: Calves are equal size bilaterally and non-tender. No edema. No discoloration. NEURO: Baseline left lower extremity weakness/paresis and otherwise extremities with generalized weakness. SKIN: No rash or jaundice noted. Jonathan Ricci MD Past Med/Surg History Medical History Anemia of chronic disease Encounter for pre-operative examination Wheelchair dependent Lobar pneumonia 08/2022 treated at [facility] inpatient. no current issues AV fistula LEFT History of blood transfusion 12/19/21 per pt ESRD (end stage renal disease) on dialysis [facility] in [place] Mon-Wed-Fri Neuropathic pain Sacral decubitus ulcer, stage IV "stable to improved" per [place] wound clinic[facility] 2X PER WEEK. patient's changes dressing as instructed at home. 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 Shrestha at [facility]> BOUND FOR 3 YEARS D/T CYSTS. inhibiting patient to ambulate. 04/25/23: awaiting for surgery to remove the spinal cyst but will need his ulcer wound repaired and healed fully first --> reason for upcoming colostomy. Anemia due to chronic kidney disease History of CHF (congestive heart failure) Impotence, organic Anxiety Sleep apnea CPAP PTSD (post-traumatic stress disorder) POST AORTIC DISSECTION Neurogenic bladder Self Catheterization since Aortic repair 4-5X PER DAY Lumbar spinal stenosis Hypertension Hyperlipidemia Atrial fibrillation Follows with [facility] cardiology (Dr. Otoole) On Eliquis Abdominal aortic aneurysm (~2014) S/p Type A dissection with emergent repair in 2014 - Follows with vascular - last seen 11/2022- AAA 3.3cm, iliac artery aneursym (right 2.0cm and left 3.0 cm)- all stable in size; chronic thoracic aortic dissection- stable- vascular recommended repeating imaging May 2024 Surgical History History of removal of tunneled central venous catheter (CVC) with port removal of perm cath 05/[address] Marroquin S/P arteriovenous (AV) fistula creation left S/P debridement (02/08/22) Sacral Wound Debridment, Sacral bone biopsy(Not Applicable) - Jose Le, S/P debridement (06/27/21) Excisional Debridement Sacral Decubitus Ulcer down to muscle level 4cm x 6cm - Ranjeet Myers DO 06/27/2021 Excisional Debridement of Sacral Decubitus Ulcer Down to Bone, 11cm x 10cm(Not Applicable) - Ranjeet Myers, 07/25/2021: MAC 3, ETT 7.5. History of revision of total hip arthroplasty History of arthroplasty of left hip S/P total right hip arthroplasty History of cardioversion mult>FOLLOWS WITH DR. 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 History of gastric bypass 2010 History of cardiac catheterization 2003 - no stents - [facility] in [place] Family History Grandmother Family history of diabetes mellitus Mother Gallbladder disease Father Prostate cancer Myocardial infarction Hypertension Other Family history non-contributory No family history of adverse response to anesthesia Denies family history of Ovarian cancer Breast cancer Colorectal cancer Social History Smoking Status: Never smoker Second Hand Exposure: No; Do You Dip or Chew Tobacco: No; Hx Alcohol Use: No Hx Substance Use: No Preferred Language: [place] Communication Ability: Effective Visual Impairment: Limited Hearing Ability: Normal Hand Tool Filer Required: No Beliefs That Will Affect Care: None marital status: Current Living Situation: Spouse Current Living Situation Comment: Lives with at home current occupational status: retired How many Children do You have: 1 Feels Safe at Home: Yes Childhood Exposure to Second-Hand Smoke: Yes (father did ) Diet: regular Diet Comment: low sugar, low phospate caffeine: Yes (tea) during the past year weight has: remained stable Dental Care, Regularly: Yes Physical Activity Frequency: Does not Exercise Physical Activity Frequency Comment: goes to PT twice a week Seatbelt Use: always Sunscreen Use: Yes Do you think of yourself as: straight/heterosexual Gender Identity: Male Assistive Devices: Bedside Commode, CPAP, Hospital Bed, Walker and Wheelchair Allergies Allergies Allergy/AdvReac Type Severity Reaction Status Date / Time tetracycline Allergy Intermediate HIVES Verified 08/10/23 16:56 morphine AdvReac Intermediate Nausea Verified 08/10/23 16:56 Home Meds Home Medications Medication Instructions Recorded Confirmed cholecalciferol (vitamin D3) 50 50 mcg PO QPM 12/31/19 08/10/23 mcg (2,000 unit) tablet (Vitamin D3) acetaminophen 500 mg tablet 1,000 mg PO DIRECTED PRN Pain 07/13/21 08/10/23 (Tylenol Extra Strength) sevelamer carbonate 800 mg tablet See Rx Instructions .Route .COMPLEX 09/20/22 08/10/23 Previous Rx's Medication Instructions Recorded azelastine 205.5 mcg (0.15 %) 1 spray intranasal HS PRN seasonal 09/04/20 nasal spray allergies #30 mL Wheelchair (Powered) (Power #1 ea 01/04/22 Wheelchair) atorvastatin 20 mg tablet (Lipitor) 20 mg PO QPM #90 tabs 09/10/22 metoprolol succinate 25 mg 25 mg PO QAM #90 tabs 09/10/22 tablet,extended release 24 hr nortriptyline 25 mg capsule 25 mg PO HS #90 caps 09/10/22 (Pamelor) apixaban 2.5 mg tablet (Eliquis) 2.5 mg PO BID #180 tabs 01/09/23 gabapentin 300 mg capsule 600 mg (2 x 300 mg) PO HS #180 caps 02/10/23 oxycodone-acetaminophen 5 mg-325 1 tab PO Q6H PRN pain #30 tabs 05/15/23 mg tablet (Percocet) vitamin B complex and vitamin C 1 cap PO QAM #90 caps 07/09/23 no.20-folic acid 1 mg capsule (Renal Caps) alprazolam 0.25 mg tablet 0.25 mg PO HS PRN Anxiety #30 tabs 07/23/23 Results & Data (ED) Vital Signs Vital Signs - 24 hr 08/10/23 15:02 08/10/23 15:07 08/10/23 15:07 Temperature 36.9 C Temperature Source Oral Pulse Rate 81 Pulse Rate [Apical] Pulse Rhythm [Apical] Pulse Strength [Apical] Respiratory Rate 20 Respiratory Effort / Characteristics Non-Labored Respiratory Depth Normal Blood Pressure 115/81 Blood Pressure [Right Arm] Blood Pressure Mean 92 Blood Pressure Mean [Right Arm] Pulse Oximetry 95 95 88 L Oxygen Delivery Method Nasal Cannula Nasal Cannula Room Air Oxygen Flow Rate 2 Sepsis Recent Fever Within 48 Hours No Sepsis New/Unexplained Change in Mental Status No Sepsis Action Taken by Nursing No Action Required 08/10/23 15:17 08/10/23 16:00 08/10/23 17:00 Temperature Temperature Source Pulse Rate 70 Pulse Rate [Apical] 73 Pulse Rhythm [Apical] Pulse Strength [Apical] Respiratory Rate 20 Respiratory Effort / Characteristics Respiratory Depth Blood Pressure Blood Pressure [Right Arm] 115/81 Blood Pressure Mean Blood Pressure Mean [Right Arm] 92 Pulse Oximetry 98 98 Oxygen Delivery Method Nasal Cannula Nasal Cannula Oxygen Flow Rate 2 2 Sepsis Recent Fever Within 48 Hours Sepsis New/Unexplained Change in Mental Status Sepsis Action Taken by Nursing 08/10/23 19:00 08/10/23 19:42 08/10/23 21:00 Temperature Temperature Source Pulse Rate 75 Pulse Rate [Apical] 72 76 Pulse Rhythm [Apical] Regular Pulse Strength [Apical] Normal Respiratory Rate 20 20 Respiratory Effort / Characteristics Non-Labored Non-Labored Respiratory Depth Normal Normal Blood Pressure Blood Pressure [Right Arm] 115/81 115/87 Blood Pressure Mean Blood Pressure Mean [Right Arm] 92 96 Pulse Oximetry 95 97 Oxygen Delivery Method Nasal Cannula Nasal Cannula Oxygen Flow Rate 2 2 Sepsis Recent Fever Within 48 Hours Sepsis New/Unexplained Change in Mental Status Sepsis Action Taken by Nursing Laboratory Data Attestation: I reviewed the patient's lab results. 08/10/23 15:15 08/10/23 15:15 Lab Results 08/10/23 08/10/23 08/10/23 Range/Units 15:15 17:47 18:57 WBC 14.72 H (4.8-10.8) K/ul RBC 3.00 L (4.70-6.10) M/uL Hgb 9.6 L (14.0-18.0) g/dl Hct 29.9 L (42.0-52.0) % MCV 99.7 (80.0-100.0) fL MCH 32.0 (25.0-34.0) pg MCHC 32.1 (32.0-36.0) g/dL RDW Std Deviation 57.2 H (36.4-46.3) fL RDW Coeff of Hector 15.6 H (11.5-14.5) % Plt Count 157 (130-400) K/uL MPV 9.0 L (9.4-12.4) fL Immature Gran % (Auto) 0.3 % Neut % (Auto) 86.6 % Lymph % (Auto) 3.9 % [place] % (Auto) 4.9 % Eos % (Auto) 3.7 % Baso % (Auto) 0.6 % Neut # (Auto) 12.74 H (1.40-6.50) K/uL Lymph # (Auto) 0.58 L (1.20-3.40) K/uL [place] # (Auto) 0.72 H (0.11-0.59) K/uL Eos # (Auto) 0.54 H (0.00-0.50) K/uL Baso # (Auto) 0.09 (0.00-0.20) K/uL Immature Gran # (Auto) 0.05 (0.01-0.20) K/uL PT 13.0 H (9.0-12.0) Seconds INR 1.2 H (0.9-1.1) Sodium 137 (136-145) mmol/L Potassium 4.2 (3.5-5.1) mmol/L Chloride 97 L (98-107) mmol/L Carbon Dioxide 31 (21-32) mmol/L Anion Gap 9 (3-11) BUN 51 H (6-23) mg/dl Creatinine 4.34 H (0.6-1.4) mg/dl Est Cr Clr Drug Dosing 15.6 ml/min Est GFR ( Amer) 14.2 ml/min Est GFR (Non-Af Amer) 12.3 ml/min BUN/Creatinine Ratio 11.8 (10-20) Glucose 98 (70-99(Fasting)) mg/dl Lactate 1.3 (0.4-2.0) mmol/L Calcium 8.8 (8.6-10.3) mg/dl Phosphorus 5.1 H (2.5-4.9) mg/dl Magnesium 2.3 (1.7-2.4) mg/dl Total Bilirubin 0.8 (0.2-1.0) mg/dl AST 23 (13-39) U/L ALT 29 (7-52) U/L Alkaline Phosphatase 118 H (34-104) U/L Total Creatine Kinase Cancelled 27 L Troponin I High Sens 40.4 H 31.8 H (0-20) pg/ml Total Protein 6.0 (6.0-8.3) gm/dl Albumin 3.5 (3.4-5.0) gm/dl Globulin 2.5 (2.5-4.0) gm/dl Albumin/Globulin Ratio 1.4 (0.9-2) Procalcitonin 0.58 H (0-0.5) ng/ml TSH 1.489 (0.300-4.500) uIu/ml Urine Color Urine Appearance (Clear) Urine pH (4.5-7.5) Ur Specific [place] (1.000-1.030) Urine Protein (Negative) Urine Glucose (UA) (Negative) Urine Ketones (Negative) Urine Blood (Negative) Urine Nitrite (Negative) Urine Bilirubin (Negative) Urine Urobilinogen (Negative) Ur Leukocyte Esterase (Negative) Urine WBC (Auto) (0-5) /hpf Urine RBC (Auto) (0-4) /hpf U Hyaline Cast (Auto) (0-5) /lpf U Epithel Cells (Auto) (0-5) /lpf Urine Bacteria (Auto) (Negative) Urine Yeast Nasal Screen MRSA (PCR) (Negative) Adenovirus (PCR) (NotDetected) B. pertussis DNA (PCR) (NotDetected) B.parapertussis DNA PCR (NotDetected) C. pneumoniae DNA (PCR) (NotDetected) Coronavirus OC43 (PCR) (NotDetected) Coronavirus HKU1 (PCR) (NotDetected) Coronavirus 229E (PCR) (NotDetected) SARS-CoV-2 (PCR) (NotDetected) Coronavirus NL63 (PCR) (NotDetected) Human Metapneumovir PCR (NotDetected) Influenza Type A (PCR) (NotDetected) Influenza Type B (PCR) (NotDetected) M. pneumoniae (PCR) (NotDetected) Parainfluenza 1 (PCR) (NotDetected) Parainfluenza 2 (PCR) (NotDetected) Parainfluenza 3 (PCR) (NotDetected) Parainfluenza 4 (PCR) (NotDetected) RSV (PCR) (NotDetected) Entero/Rhino (PCR) (NotDetected) 08/10/23 08/10/23 Range/Units 19:49 Unknown WBC (4.8-10.8) K/ul RBC (4.70-6.10) M/uL Hgb (14.0-18.0) g/dl Hct (42.0-52.0) % MCV (80.0-100.0) fL MCH (25.0-34.0) pg MCHC (32.0-36.0) g/dL RDW Std Deviation (36.4-46.3) fL RDW Coeff of Hector (11.5-14.5) % Plt Count (130-400) K/uL MPV (9.4-12.4) fL Immature Gran % (Auto) % Neut % (Auto) % Lymph % (Auto) % [place] % (Auto) % Eos % (Auto) % Baso % (Auto) % Neut # (Auto) (1.40-6.50) K/uL Lymph # (Auto) (1.20-3.40) K/uL [place] # (Auto) (0.11-0.59) K/uL Eos # (Auto) (0.00-0.50) K/uL Baso # (Auto) (0.00-0.20) K/uL Immature Gran # (Auto) (0.01-0.20) K/uL PT (9.0-12.0) Seconds INR (0.9-1.1) Sodium (136-145) mmol/L Potassium (3.5-5.1) mmol/L Chloride (98-107) mmol/L Carbon Dioxide (21-32) mmol/L Anion Gap (3-11) BUN (6-23) mg/dl Creatinine (0.6-1.4) mg/dl Est Cr Clr Drug Dosing ml/min Est GFR ( Amer) ml/min Est GFR (Non-Af Amer) ml/min BUN/Creatinine Ratio (10-20) Glucose (70-99(Fasting)) mg/dl Lactate (0.4-2.0) mmol/L Calcium (8.6-10.3) mg/dl Phosphorus (2.5-4.9) mg/dl Magnesium (1.7-2.4) mg/dl Total Bilirubin (0.2-1.0) mg/dl AST (13-39) U/L ALT (7-52) U/L Alkaline Phosphatase (34-104) U/L Total Creatine Kinase Troponin I High Sens (0-20) pg/ml Total Protein (6.0-8.3) gm/dl Albumin (3.4-5.0) gm/dl Globulin (2.5-4.0) gm/dl Albumin/Globulin Ratio (0.9-2) Procalcitonin (0-0.5) ng/ml TSH (0.300-4.500) uIu/ml Urine Color Yellow Urine Appearance Cloudy A (Clear) Urine pH >= 9.0 H (4.5-7.5) Ur Specific [place] 1.014 (1.000-1.030) Urine Protein 3+ H (Negative) Urine Glucose (UA) Trace H (Negative) Urine Ketones Negative (Negative) Urine Blood Trace H (Negative) Urine Nitrite Negative (Negative) Urine Bilirubin Negative (Negative) Urine Urobilinogen Negative (Negative) Ur Leukocyte Esterase 2+ H (Negative) Urine WBC (Auto) >30 H (0-5) /hpf Urine RBC (Auto) 0-4 (0-4) /hpf U Hyaline Cast (Auto) 5-10 H (0-5) /lpf U Epithel Cells (Auto) 10-20 H (0-5) /lpf Urine Bacteria (Auto) Negative (Negative) Urine Yeast Not Reportable Nasal Screen MRSA (PCR) Negative (Negative) Adenovirus (PCR) Not Detected (NotDetected) B. pertussis DNA (PCR) Not Detected (NotDetected) B.parapertussis DNA PCR Not Detected (NotDetected) C. pneumoniae DNA (PCR) Not Detected (NotDetected) Coronavirus OC43 (PCR) Not Detected (NotDetected) Coronavirus HKU1 (PCR) Not Detected (NotDetected) Coronavirus 229E (PCR) Not Detected (NotDetected) SARS-CoV-2 (PCR) Not Detected (NotDetected) Coronavirus NL63 (PCR) Not Detected (NotDetected) Human Metapneumovir PCR Not Detected (NotDetected) Influenza Type A (PCR) Not Detected (NotDetected) Influenza Type B (PCR) Not Detected (NotDetected) M. pneumoniae (PCR) Not Detected (NotDetected) Parainfluenza 1 (PCR) Not Detected (NotDetected) Parainfluenza 2 (PCR) Not Detected (NotDetected) Parainfluenza 3 (PCR) Not Detected (NotDetected) Parainfluenza 4 (PCR) Not Detected (NotDetected) RSV (PCR) Not Detected (NotDetected) Entero/Rhino (PCR) Not Detected (NotDetected) Administered Medications Discontinued Medications Sodium Chloride (Nss) 500 mls @ 250 mls/hr IV .Q2H [place] Stop: 09/09/23 16:59 Last Admin: 08/10/23 20:44 Dose: Not Given Documented By: Infusion: 08/10/23 20:43 Dose: Infused Documented By: Admin: 08/10/23 19:08 Dose: 250 mls/hr Documented By: ALEXX Cefepime HCl (Maxipime) 2,000 mg in 20 mls @ 5 mls/min IV NOW STA; Protocol Stop: 08/10/23 18:43 Last Admin: 08/10/23 19:09 Dose: 5 mls/min Documented By: ALEXX Imaging Data Radiologist's Impression: Chest X-Ray 08/10/23 15:57 SINGLE VIEW CHEST CLINICAL HISTORY: Generalized weakness. FINDINGS: 2 AP, portable, upright chest radiographs are compared to study dated 05/04/2023 and correlated with chest CT dated 08/05/2023. The examination is degraded by portable technique and patient rotation. The patient is status post midline sternotomy. The heart is enlarged noting atherosclerotic calcification of the thoracic aorta. There is pulmonary vascular congestion. Chronic interstitial thickening is similar to previous. There is bibasilar scarring/atelectasis. Patchy airspace consolidation is seen in the right mid lung at the right lung base. No large pleural effusion or pneumothorax is seen. The skeletal structures are osteopenic. The bony thorax is grossly intact. Surgical clips project over the right shoulder. IMPRESSION: 1. Cardiomegaly with pulmonary vascular congestion. 2. Patchy airspace consolidation is seen in the right midlung and at the right lung base. This could represent asymmetric pulmonary edema and/or pneumonia. Clinical correlation will be required and radiographic follow-up to resolution is recommended. ACT 112: Negative or not required by law. Electronically signed by: Kasi Dai M.D. 08/10/2023 5:35 PM Discharge Plan Visit Data Chief Complaint: Weakness ED Provider: Jonathan Ricci Discharge Problem: Pneumonia, ESRD (end stage renal disease) on dialysis, Generalized weakness, Hypoxia Forms Stand Alone Forms: My [employer] Prescriptions Prescriptions: No Action azelastine 0.15 % (205.5 mcg) spray,non-aerosol 1 spray INTNAS HS PRN (Reason: seasonal allergies) Qty: 30 2RF Rx Instructions: administer into each nostril (DME) Power Wheelchair Device See Rx Instructions .Route Qty: 1 0RF Rx Instructions: POWER WHEELCHAIR, DX: R53.1, R26.2 Eliquis 2.5 mg tablet 2.5 mg PO BID Qty: 180 3RF gabapentin 300 mg capsule 600 mg PO HS Qty: 180 5RF Renal Caps 1 mg capsule 1 cap PO QAM Qty: 90 3RF alprazolam 0.25 mg tablet 0.25 mg PO HS PRN (Reason: Anxiety) Qty: 30 0RF oxycodone-acetaminophen [Percocet] 5-325 mg tablet 1 tab PO Q6H PRN (Reason: pain) Qty: 30 0RF atorvastatin [Lipitor] 20 mg tablet 20 mg PO QPM Qty: 90 4RF metoprolol succinate 25 mg tablet extended release 24 hr 25 mg PO QAM Qty: 90 3RF nortriptyline [Pamelor] 25 mg capsule 25 mg PO HS Qty: 90 3RF cholecalciferol (vitamin D3) [Vitamin D3] 50 mcg (2,000 unit) Tablet 50 mcg PO QPM sevelamer carbonate 800 mg tablet See Rx Instructions .ROUTE .COMPLEX Rx Instructions: TAKES 800 MG WITH BREAKFAST & LUNCH, THEN 1,600 MG WITH SUPPER. acetaminophen [Tylenol Extra Strength] 500 mg Tablet 1,000 mg PO DIRECTED PRN (Reason: Pain) Referrals Referrals: Jasiel Pineda DO [Primary Care Provider] - Discharge Problem: Pneumonia Qualifiers: Pneumonia type: due to unspecified organism Laterality: right Lung location: m iddle lobe of lung Qualified Code(s): J18.9 - Pneumonia, unspecified organism
[2023-08-10 16:23] LABS: Basophils # (auto) 0.09 K/uL (0.00-0.20); Basophils % (auto) 0.6 %; Eosinophils # (auto) 0.54 K/uL (0.00-0.50); Eosinophils % (auto) 3.7 %; Hematocrit (blood only) 29.9 % (42.0-52.0); Hemoglobin 9.6 g/dl (14.0-18.0); Immature Granulocytes # (auto) 0.05 K/uL (0.01-0.20); Immature Granulocytes % (auto) 0.3 %; Lymphocytes # (auto) 0.58 K/uL (1.20-3.40); Lymphocytes % (auto) 3.9 %; Mean Corpuscular Hgb Conc 32.1 g/dL (32.0-36.0); Mean Corpuscular Volume 99.7 fL (80.0-100.0); Monocytes # (auto) 0.72 K/uL (0.11-0.59); Monocytes % (auto) 4.9 %; Neutrophils # (auto) 12.74 K/uL (1.40-6.50); Neutrophils % (auto) 86.6 %; Platelet Count 157 K/uL (130-400); RDW Coefficient of Variation 15.6 % (11.5-14.5); RDW Standard Deviation 57.2 fL (36.4-46.3); White Blood Count 14.72 K/ul (4.8-10.8)
[2023-08-10 16:26] LABS: Albumin Globulin Ratio 1.4 (0.9-2); Albumin Level 3.5 gm/dl (3.4-5.0); BUN Creatinine Ratio 11.8 (10-20); Bilirubin,Total 0.8 mg/dl (0.2-1.0); Calcium 8.8 mg/dl (8.6-10.3); Creatinine Clr Calc Pharmacy 15.6 ml/min; Est GFR (African American) 14.2 ml/min; Est GFR (Non-African American) 12.3 ml/min; Globulin 2.5 gm/dl (2.5-4.0); Magnesium 2.3 mg/dl (1.7-2.4); Phosphorus 5.1 mg/dl (2.5-4.9); Potassium 4.2 mmol/L (3.5-5.1)
[2023-08-10 16:32] LABS: Troponin I High Sensitivity 40.4 pg/ml (0-20)
[2023-08-10 16:41] LABS: Thyroid Stimulating Hormone 1.489 uIu/ml (0.300-4.500)
[2023-08-10 16:58] LABS: Adenovirus PCR Not Detected (NotDetected); Bordetella parapertussis PCR Not Detected (NotDetected); Bordetella pertussis PCR Not Detected (NotDetected); Chlamydia pneumoniae PCR Not Detected (NotDetected); Coronavirus 229E PCR Not Detected (NotDetected); Coronavirus CoV-2 (COVID19)PCR Not Detected (NotDetected); Coronavirus HKU1 PCR Not Detected (NotDetected); Coronavirus NL63 PCR Not Detected (NotDetected); Coronavirus OC43PCR Not Detected (NotDetected); Human Metapneumovirus PCR Not Detected (NotDetected); Influenza A PCR Not Detected (NotDetected); Influenza B PCR Not Detected (NotDetected); Mycoplasma pneumoniae PCR Not Detected (NotDetected); Parainfluenza Virus 1 PCR Not Detected (NotDetected); Parainfluenza Virus 2 PCR Not Detected (NotDetected); Parainfluenza Virus 3 PCR Not Detected (NotDetected); Parainfluenza Virus 4 PCR Not Detected (NotDetected); Respiratory Syncytial VirusPCR Not Detected (NotDetected); Rhinovirus/Enterovirus PCR Not Detected (NotDetected)
[2023-08-10 17:16] LABS: INR 1.2 (0.9-1.1)
--- NOTE | 2023-08-10 17:38 | XRay Report ---
SINGLE VIEW CHEST CLINICAL HISTORY: Generalized weakness. FINDINGS: 2 AP, portable, upright chest radiographs are compared to study dated 05/04/2023 and correla [place] with chest CT dated 08/05/2023. The examination is degraded by portable technique and patient rotat ion. The patient is status post midline sternotomy. The heart is enlarged noting atherosclerotic calc ification of the thoracic aorta. There is pulmonary vascular congestion. Chronic interstitial thicken ing is similar to previous. There is bibasilar scarring/atelectasis. Patchy airspace consolidation is seen in the right mid lung at the right lung base. No large pleural effusion or pneumothorax is seen . The skeletal structures are osteopenic. The bony thorax is grossly intact. Surgical clips project o pia the right shoulder. IMPRESSION: 1. Cardiomegaly with pulmonary vascular congestion. 2. Patchy airspace consolidation is seen in the right midlung and at the right lung base. This could represent asymmetric pulmonary edema and/or pneumonia. Clinical correlation will be required and radi ographic follow-up to resolution is recommended. ACT 112: Negative or not required by law. Electronically signed by: Kasi Dai M.D. 08/10/2023 5:35 PM
[2023-08-10 17:45] LABS: Appearance Urine Cloudy (Clear); Bacteria Urine Automated Negative (Negative); Bilirubin Urine Negative (Negative); Blood Urine Trace (Negative); Color Urine Yellow; Glucose Urine UA Trace (Negative); Ketones Urine Negative (Negative); Leukocyte Esterase Urine 2+ (Negative); Nitrite Urine Negative (Negative); RBC Urine Automated 0-4 /hpf (0-4); Specific Gravity Urine 1.014 (1.000-1.030); Urobilinogen Urine Negative (Negative); WBC Urine Automated >30 /hpf (0-5); pH Urine >= 9.0 (4.5-7.5)
[2023-08-10 17:51] LABS: Protein Urine 3+ (Negative)
[2023-08-10] MEDS ORDERED: CEFEPIME 2,000 MG/20 ML VIAL IV STA (18:40)
[2023-08-10] MEDS: SODIUM CHLORIDE 0.9% 500 ML IV SCH ×2 (19:08→20:44)
--- NOTE | 2023-08-10 19:12 | History & Physical Report ---
Date of Service August 10, 2023 Assessment & Plan (1) Generalized weakness: Plan: Acute onset the morning of 08/10 Patient is wheelchair-bound at baseline d/t a cyst at L1/L2 leading to decreased LLE strength Elevated WBC at 14.72 with neutrophil predominance [employer] negative CXR revealed cardiomegaly with pulmonary vascular congestion; also noted a patchy airspace consolidation in the right midlung and right lung base which could indicate pulmonary edema or pneumonia UA positive in the setting of neurogenic bladder/Perry; urine culture ordered, pending Hx of decubitus ulcer (stage IV) Unclear source of infection; clinically, patient denies respiratory/urinary symptoms MRSA swab ordered, pending Last wound culture on 07/03/2023 grew Pseudomonas and E. coli; wound culture on 10/03/2022 grew Enterococcus faecalis and MRSA; repeat wound culture ordered, pending Cefepime started in the ED Given history of MRSA from wound culture and unclear source, will switch to linezolid (Zyvox) 600 mg IV BID; hold nortriptyline PT/OT consulted A.m. CBC, BMP (2) ESRD (end stage renal disease) on dialysis: Plan: HD on // Last dialysis on Tuesday 08/08 No BP, labs, IVs in LUE due to port Nephrology consulted for inpatient dialysis Continue sevelamer, Nephrocaps (3) Sacral decubitus ulcer, stage IV: Plan: Wound culture (as above) Daily wound care Wound care nurse consulted Sacral decubitus ulcer has been ongoing; plastic surgery planned for September 05, 2022 Patient was supposed to have a preop appointment at [place] on Friday 08/11; may need to reschedule (4) Neuropathic pain: Plan: Continue gabapentin Hold nortriptyline (as above) Acetaminophen as needed for pain Oxycodoneacetaminophen q6h as needed for breakthrough pain (5) Elevated troponin: Plan: Troponin 40.4-->31.8 on arrival Clinically, patient denies CP, pleuritic CP, SOB Continue telemetry monitoring (6) Anemia of chronic disease: Plan: Hgb 9.6 and HCT 29.9 on arrival; chronic; stable Secondary to ESRD (7) Neurogenic bladder: Plan: Perry in place (8) Hyperlipidemia: Plan: Continue atorvastatin (9) Anxiety: Plan: Continue alprazolam as needed (10) Atrial fibrillation: Plan: Continue metoprolol, Eliquis (11) Sleep apnea: Plan: CPAP HS (12) Wheelchair dependent: Plan Disposition: Admit to [facility] telemetry Full code Renal dialysis diet VTE PPx: On Eliquis History of Present Illness Chief Complaint: Generalized weakness Primary Care Provider: Jasiel Pineda DO Blanc is a pleasant 78-year-old gentleman with PMH of ESRD on HD M/W/F, colostomy status, anxiety, atrial fibrillation, HTN, lymphedema, sacral decubitus ulcer (stage IV), neurogenic bladder, neurogenic bowel, sleep apnea, and inability to walk. He presented via EMS for acute onset of generalized weakness the morning of 08/10. He reports being so weak that he could barely sit up in bed. Patient took all of his regular morning medications this morning. No recent change in medications. He manages his own medications at home, along with his . No recent falls, injuries, or trauma. Patient is in a wheelchair at baseline, as his left leg does not work due to a cyst at L1/L2. Patient is currently scheduled to have plastic surgery for his decubitus ulcer on September 05, [id number]. No sick contacts. No supplemental at home oxygen usage. Patient denies smoking, alcohol use, vaping, tobacco use, and recreational drug use. Patient's vitals are stable at time of admission; SpO2 98% on 2L. ED course: Cefepime 2000 mg IV NSS 500 mL IV ROS: Patient endorses MATTA (resolved), back pain (secondary to decubitus ulcer), and numbness/tingling in the left leg (due to cyst on L1/L2) Patient denies fever, chills, nightsweats, dizziness, lightheadedness, cough, hemoptysis, pleuritic CP, chest pain, chest palpitations, SOB, abdominal pain, N/V/D, burning with urination, dysuria, Allergies Allergy/AdvReac Type Severity Reaction Status Date / Time tetracycline Allergy Intermediate HIVES Verified 08/10/23 16:56 morphine AdvReac Intermediate Nausea Verified 08/10/23 16:56 Home Medications Medication Instructions Recorded Confirmed Type cholecalciferol (vitamin D3) 50 50 mcg PO QPM 12/31/19 08/10/23 History mcg (2,000 unit) tablet (Vitamin D3) azelastine 205.5 mcg (0.15 %) 1 spray intranasal HS PRN seasonal 09/04/20 08/10/23 Rx nasal spray allergies #30 mL acetaminophen 500 mg tablet 1,000 mg PO DIRECTED PRN Pain 07/13/21 08/10/23 History (Tylenol Extra Strength) Wheelchair (Powered) (Power #1 ea 01/04/22 08/07/23 Rx Wheelchair) atorvastatin 20 mg tablet (Lipitor) 20 mg PO QPM #90 tabs 09/10/22 08/10/23 Rx metoprolol succinate 25 mg 25 mg PO QAM #90 tabs 09/10/22 08/10/23 Rx tablet,extended release 24 hr nortriptyline 25 mg capsule 25 mg PO HS #90 caps 09/10/22 08/10/23 Rx (Pamelor) sevelamer carbonate 800 mg tablet See Rx Instructions .Route .COMPLEX 09/20/22 08/10/23 History apixaban 2.5 mg tablet (Eliquis) 2.5 mg PO BID #180 tabs 01/09/23 08/10/23 Rx gabapentin 300 mg capsule 600 mg (2 x 300 mg) PO HS #180 caps 02/10/23 08/10/23 Rx oxycodone-acetaminophen 5 mg-325 1 tab PO Q6H PRN pain #30 tabs 05/15/23 08/10/23 Rx mg tablet (Percocet) vitamin B complex and vitamin C 1 cap PO QAM #90 caps 07/09/23 08/10/23 Rx no.20-folic acid 1 mg capsule (Renal Caps) alprazolam 0.25 mg tablet 0.25 mg PO HS PRN Anxiety #30 tabs 07/23/23 08/10/23 Rx Past Med/Surg History Medical History Anemia of chronic disease Encounter for pre-operative examination Wheelchair dependent Lobar pneumonia 08/2022 treated at [facility] inpatient. no current issues AV fistula LEFT History of blood transfusion 12/19/21 per pt ESRD (end stage renal disease) on dialysis [facility] in [place] Mon-Fri-Fri Neuropathic pain Sacral decubitus ulcer, stage IV "stable to improved" per [place] wound [facility] AND [facility] 2X PER WEEK. patient's changes dressing as instructed at home. 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 Shrestha at [facility] [place]>WC BOUND FOR 3 YEARS D/T CYSTS. inhibiting patient to ambulate. 04/25/23: awaiting for surgery to remove the spinal cyst but will need his ulcer wound repaired and healed fully first --> reason for upcoming colostomy. Anemia due to chronic kidney disease History of CHF (congestive heart failure) Impotence, organic Anxiety Sleep apnea CPAP PTSD (post-traumatic stress disorder) POST AORTIC DISSECTION Neurogenic bladder Self Catheterization since Aortic repair 4-5X PER DAY Lumbar spinal stenosis Hypertension Hyperlipidemia Atrial fibrillation Follows with [facility] cardiology (Dr. Otoole) On Eliquis Abdominal aortic aneurysm (~2014) S/p Type A dissection with emergent repair in 2014 - Follows with vascular - last seen 11/2022- AAA 3.3cm, iliac artery aneursym (right 2.0cm and left 3.0 cm)- all stable in size; chronic thoracic aortic dissection- stable- vascular recommended repeating imaging May 2024 Surgical History History of removal of tunneled central venous catheter (CVC) with port removal of perm cath 05/[address] Marroquin S/P arteriovenous (AV) fistula creation left S/P debridement (02/08/22) Sacral Wound Debridment, Sacral bone biopsy(Not Applicable) - Jose Le, S/P debridement (06/27/21) Excisional Debridement Sacral Decubitus Ulcer down to muscle level 4cm x 6cm - Ranjeet Myers DO 06/27/2021 Excisional Debridement of Sacral Decubitus Ulcer Down to Bone, 11cm x 10cm(Not Applicable) - Ranjeet Myers, 07/25/2021: MAC 3, ETT 7.5. History of revision of total hip arthroplasty History of arthroplasty of left hip S/P total right hip arthroplasty History of cardioversion mult>FOLLOWS WITH DR. 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 History of gastric bypass 2010 History of cardiac catheterization 2003 - no stents - [facility] in [place] Family History Grandmother Family history of diabetes mellitus Mother Gallbladder disease Father Prostate cancer Myocardial infarction Hypertension Other Family history non-contributory No family history of adverse response to anesthesia Denies family history of Ovarian cancer Breast cancer Colorectal cancer Social History Smoking Status: Never smoker Second Hand Exposure: No; Do You Dip or Chew Tobacco: No; Hx Alcohol Use: No Hx Substance Use: No Preferred Language: Citizen Of [place] Communication Ability: Effective Visual Impairment: Limited Hearing Ability: Normal Health Information Assistant Required: No Beliefs That Will Affect Care: None marital status: Current Living Situation: Spouse Current Living Situation Comment: Lives with at home current occupational status: retired How many Children do You have: 1 Feels Safe at Home: Yes Safety Concerns: Feels Safe At This Time Childhood Exposure to Second-Hand Smoke: Yes (father did ) Diet: regular Diet Comment: low sugar, low phospate caffeine: Yes (tea) during the past year weight has: remained stable Dental Care, Regularly: Yes Physical Activity Frequency: Does not Exercise Physical Activity Frequency Comment: goes to PT twice a week Seatbelt Use: always Sunscreen Use: Yes Do you think of yourself as: straight/heterosexual Gender Identity: Male Assistive Devices: Wheelchair Review of Systems 2 Review of Systems: See HPI above Physical Exam 2 Physical Exam: General: no acute distress; pleasant affect; non-toxic appearing; well- nourished; cooperative HEENT: normocephalic, atraumatic; no scleral icterus; PERRLA w/ EOMs intact; moist mucus membrane; vision and hearing grossly intact Neck: supple; no lymphadenopathy; trachea midline Skin: warm, dry without signs of tenting; no cyanosis; no rashes, bruising, lesions, or erythema noted CV: chest wall NTP; irregularly irregular heartbeat; 4/6 systolic ejection murmur auscultated at the second ICS MCL; no murmurs/rubs/gallops; pulses intact and symmetric at radial, DP, and PT Lungs: no acute respiratory distress; symmetrical chest wall expansion; clear breath sounds across all lung thomas w/o adventitious sounds; no wheezing ABD: Soft, NTP; BS present; no rebound/guarding; no ascites; no distention Lower back: Stage IV decubitus ulcer just above the rectum (see photo below); purulent drainage; malodorous MSK: no tics or fasciculations; no edema noted in the LEs b/l, nonerythematous; significantly decreased strength in the LLE; patient demonstrates ability to wiggle toes bilaterally Neuro: A&Ox3; normal mood and affect; fluent speech; CN2-12 intact; no focal deficits; sensation intact in LEs B/L Results & Data Results & Data Vital Signs (Past 12 Hours) Vital Signs Temp Pulse Pulse Resp BP BP Pulse Ox 08/10/23 17:00 73 20 115/81 98 08/10/23 16:00 98 08/10/23 15:17 70 08/10/23 15:07 88 L 08/10/23 15:07 95 08/10/23 15:02 36.9 C 81 20 115/81 95 O2 Del Method O2 Flow Rate 08/10/23 17:00 Nasal Cannula 2 08/10/23 16:00 Nasal Cannula 2 08/10/23 15:17 08/10/23 15:07 Room Air 08/10/23 15:07 Nasal Cannula 2 08/10/23 15:02 Nasal Cannula Laboratory Results Abnormal lab results 08/10/23 08/10/23 08/10/23 Range/Units 15:15 17:47 Unknown WBC 14.72 H (4.8-10.8) K/ul RBC 3.00 L (4.70-6.10) M/uL Hgb 9.6 L (14.0-18.0) g/dl Hct 29.9 L (42.0-52.0) % RDW Std Deviation 57.2 H (36.4-46.3) fL RDW Coeff of Hector 15.6 H (11.5-14.5) % MPV 9.0 L (9.4-12.4) fL Neut # (Auto) 12.74 H (1.40-6.50) K/uL Lymph # (Auto) 0.58 L (1.20-3.40) K/uL Rock # (Auto) 0.72 H (0.11-0.59) K/uL Eos # (Auto) 0.54 H (0.00-0.50) K/uL PT 13.0 H (9.0-12.0) Seconds INR 1.2 H (0.9-1.1) Chloride 97 L (98-107) mmol/L BUN 51 H (6-23) mg/dl Creatinine 4.34 H (0.6-1.4) mg/dl Phosphorus 5.1 H (2.5-4.9) mg/dl Alkaline Phosphatase 118 H (34-104) U/L Troponin I High Sens 40.4 H 31.8 H (0-20) pg/ml Urine Appearance Cloudy A (Clear) Urine pH >= 9.0 H (4.5-7.5) Urine Protein 3+ H (Negative) Urine Glucose (UA) Trace H (Negative) Urine Blood Trace H (Negative) Ur Leukocyte Esterase 2+ H (Negative) Urine WBC (Auto) >30 H (0-5) /hpf U Hyaline Cast (Auto) 5-10 H (0-5) /lpf U Epithel Cells (Auto) 10-20 H (0-5) /lpf Diagnostic Findings Chest X-Ray 08/10/23 15:57 SINGLE VIEW CHEST CLINICAL HISTORY: Generalized weakness. FINDINGS: 2 AP, portable, upright chest radiographs are compared to study dated 05/04/2023 and correlated with chest CT dated 08/05/2023. The examination is degraded by portable technique and patient rotation. The patient is status post midline sternotomy. The heart is enlarged noting atherosclerotic calcification of the thoracic aorta. There is pulmonary vascular congestion. Chronic interstitial thickening is similar to previous. There is bibasilar scarring/atelectasis. Patchy airspace consolidation is seen in the right mid lung at the right lung base. No large pleural effusion or pneumothorax is seen. The skeletal structures are osteopenic. The bony thorax is grossly intact. Surgical clips project over the right shoulder. IMPRESSION: 1. Cardiomegaly with pulmonary vascular congestion. 2. Patchy airspace consolidation is seen in the right midlung and at the right lung base. This could represent asymmetric pulmonary edema and/or pneumonia. Clinical correlation will be required and radiographic follow-up to resolution is recommended. ACT 112: Negative or not required by law. Electronically signed by: Kasi Dai M.D. 08/10/2023 5:35 PM Code Status & VTE Plan Code Status Full code VTE Prophylaxis Plan VTE Prophylaxis will be ordered: Yes Supervising Physician Co-Signing Physician Notes Attending addendum: I have physically seen this patient, have supervised the JULIAN's activities, and agree with the H&P unless as otherwise noted. Assessment and Plan: Generalized weakness- Worsening the morning of 08/10 Contributing factors including without limited to: Decubitus ulcer stage IV recently growing Pseudomonas and E. coli, wound culture previously growing Enterococcus faecalis and MRSA neurogenic bladder with Perry and possible UTI, general progression Treat presumptively for infection Decubitus ulcer stage IV- Place on Zyvox 600 mg IV twice daily to cover history of Enterococcus faecalis and MRSA Place on cefepime 2 g IV every 8 hours to cover history of Pseudomonas and E. coli Consult wound care nurse Patient has a preop appointment scheduled for 08/12 at [place], for potential flap repair on 09/05/2023 Neurogenic bladder with Perry- Follow urine culture and sensitivities Above antibiotics Will also cover any potential urinary tract infection ESRD on HD- Dialysis days are Friday/Friday and Friday Most recent dialysis was Tuesday 08/08 Consult nephrology Continue sevelamer and Nephrocaps PG Care Time/CCT Total # of Minutes Spent Total Time Spent with Patient: Total time spent is greater than 50% in coordination of care (as documented) at patient's floor/unit and/or counseling patient: Coding [place] [address] INT INP/OBS CARE 3/75MIN Patient Type Established Medical Decision Making High Complexity Diagnoses Generalized weakness R53.1 ESRD (end stage renal disease) on dialysis N18.6; Z99.2 Sacral decubitus ulcer, stage IV L89.154 Neuropathic pain M79.2 Elevated troponin R79.89 Anemia of chronic disease D63.8 Neurogenic bladder N31.9 Hyperlipidemia E78.5 Anxiety F41.9 Permanent atrial fibrillation I48.2 Atrial fibrillation type: permanent Sleep apnea G47.30 Wheelchair dependent Z99.3 (10) Atrial fibrillation Atrial fibrillation type: permanent Qualified Code(s): I48.2 - Chronic atrial fibrillation
[2023-08-11] MEDS ORDERED: ACETAMINOPHEN 325 MG TAB PO PRN (01:46)
[2023-08-11] MEDS ORDERED: ONDANSETRON INJ 2 MG/ML 2 ML VIAL IV PRN (01:46)
[2023-08-11] MEDS ORDERED: oxyCODONE/ACETAMINOPHEN 5mg/325mg TAB PO PRN (01:46)
[2023-08-11] MEDS: APIXABAN 2.5 MG TAB PO SCH ×3 (02:33→21:05)
[2023-08-11] MEDS: GABAPENTIN 300 MG CAP PO SCH ×2 (02:33→21:06)
[2023-08-11] MEDS: ATORVASTATIN 20 MG TAB PO SCH ×2 (02:33→21:06)
[2023-08-11 05:04] LABS: Basophils # (auto) 0.08 K/uL (0.00-0.20); Basophils % (auto) 0.6 %; Eosinophils # (auto) 1.27 K/uL (0.00-0.50); Eosinophils % (auto) 10.1 %; Hematocrit (blood only) 30.5 % (42.0-52.0); Hemoglobin 9.4 g/dl (14.0-18.0); Immature Granulocytes # (auto) 0.06 K/uL (0.01-0.20); Immature Granulocytes % (auto) 0.5 %; Lymphocytes # (auto) 0.67 K/uL (1.20-3.40); Lymphocytes % (auto) 5.3 %; Mean Corpuscular Hemoglobin 31.1 pg (25.0-34.0); Mean Corpuscular Hgb Conc 30.8 g/dL (32.0-36.0); Mean Platelet Volume 9.1 fL (9.4-12.4); Monocytes # (auto) 0.46 K/uL (0.11-0.59); Monocytes % (auto) 3.6 %; Neutrophils # (auto) 10.07 K/uL (1.40-6.50); Neutrophils % (auto) 79.9 %; Platelet Count 146 K/uL (130-400); RDW Coefficient of Variation 15.7 % (11.5-14.5); RDW Standard Deviation 57.9 fL (36.4-46.3); Red Blood Count 3.02 M/uL (4.70-6.10); White Blood Count 12.61 K/ul (4.8-10.8)
[2023-08-11 05:32] LABS: BUN Creatinine Ratio 12.6 (10-20); Calcium 8.9 mg/dl (8.6-10.3); Creatinine Clr Calc Pharmacy 14.1 ml/min; Est GFR (African American) 12.5 ml/min; Est GFR (Non-African American) 10.8 ml/min; Potassium 4.2 mmol/L (3.5-5.1)
[2023-08-11] MEDS ORDERED: CEFEPIME 1,000 MG in SYRINGE 0 ML IV SCH (08:00)
[2023-08-11] MEDS: NEPHROCAPS PO SCH (08:16)
[2023-08-11] MEDS: METOPROLOL SUCC 25MG EXT REL TAB PO SCH (08:16)
[2023-08-11] MEDS: LINEZOLID 600 MG TAB PO SCH ×2 (08:16→21:06)
[2023-08-11] MEDS: SEVELAMER HCL 800 MG TABLET PO SCH ×3 (08:17→18:19)
--- NOTE | 2023-08-11 09:44 | Nephrology Consultation ---
Date of Consultation August 11, 2023 Assessment & Plan (1) ESRD (end stage renal disease) on dialysis: (2) Generalized weakness: (3) Hypoxia: (4) Pneumonia: (5) Anemia of chronic disease: Plan 78-year-old gentleman with end-stage kidney disease on hemodialysis, Friday, , Friday via left brachiocephalic AV fistula. Admitted with generalized weakness, hypoxia and right lower lobe pneumonia. Started on cefepime and linezolid empirically. Labs and volume status acceptable, blood pressure slightly elevated. -- Plan for hemodialysis this afternoon as regular schedule, 3.5 hours with 2K bath. -- Continue on Nephrocaps and phosphate binder -- Epogen 20,000 units with dialysis today -- Left arm nephrology precaution, dose medications for EGFR less than 10 Thank you for allowing me to participate in your patient's care. It was a pleasure to see Sylvester. History of Present Illness Reason for Consultation: End-stage kidney disease, on hemodialysis, admitted with generalized weakness and hypoxia Attending Physician: Jaden Hay MD History of Present Illness Mr. Guanaco Escobedo (Ken) is a 77-year-old male with ESKD on HD MWF, hypertension, s/p colostomy, stage 4 sacral decubitus ulcer, neurogenic bladder, neurogenic bowel admitted with generalized weakness and hypoxia secondary to right lower lobe pneumonia. Nephrology consult requested for management of hemodialysis while inpatient. EMR records are reviewed in detail during patient's visit. Sylvester presented on 08/10/2023 with acute onset of generalized weakness and noted to be hypoxic with oxygen saturation 80% on room air. Chest x-ray showed pulmonary congestion and right lower lobe consolidation with concern for pneumonia. He was empirically started on cefepime and linezolid. Troponin was slightly elevated with no EKG changes. No chest pain. No fever or chills. Urinalysis with proteinuria and pyuria but no bacteriuria, has indwelling Perry catheter chronically with history of neurogenic bladder. Blood pressure has been slightly elevated since admission. Electrolyte has been acceptable. Volume status acceptable, just about 1 kg above his dry weight. Has end-stage kidney disease secondary to vascular disease and hypertensive nephrosclerosis as well as history of ATN, started on hemodialysis during her admission at [facility] in January 2022, has been on dialysis Friday, Friday, Friday at [facility] via left brachiocephalic AV fistula, under care of Dr. Paul. Dialysis for 3.5 hours, estimated dry weight 81.5 kg usually gains about 1 to 2 kg in between dialysis treatments. Past medical history also significant for osteoarthritis, spinal stenosis, a significant history of type A aortic dissection with resultant spinal ischemia and neurogenic bladder. 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 Has colostomy with plan for reversal in Aug. Overall continues to feel weak and tired. NO SOB, Cough, F/C. BP elevated. Allergies Allergy/AdvReac Type Severity Reaction Status Date / Time tetracycline Allergy Intermediate HIVES Verified 08/10/23 16:56 morphine AdvReac Intermediate Nausea Verified 08/10/23 16:56 Home Medications Medication Instructions Recorded Confirmed Type cholecalciferol (vitamin D3) 50 50 mcg PO QPM 12/31/19 08/10/23 History mcg (2,000 unit) tablet (Vitamin D3) azelastine 205.5 mcg (0.15 %) 1 spray intranasal HS PRN seasonal 09/04/20 08/10/23 Rx nasal spray allergies #30 mL acetaminophen 500 mg tablet 1,000 mg PO DIRECTED PRN Pain 07/13/21 08/10/23 History (Tylenol Extra Strength) Wheelchair (Powered) (Power #1 ea 01/04/22 08/07/23 Rx Wheelchair) atorvastatin 20 mg tablet (Lipitor) 20 mg PO QPM #90 tabs 09/10/22 08/10/23 Rx metoprolol succinate 25 mg 25 mg PO QAM #90 tabs 09/10/22 08/10/23 Rx tablet,extended release 24 hr nortriptyline 25 mg capsule 25 mg PO HS #90 caps 09/10/22 08/10/23 Rx (Pamelor) sevelamer carbonate 800 mg tablet See Rx Instructions .Route .COMPLEX 09/20/22 08/10/23 History apixaban 2.5 mg tablet (Eliquis) 2.5 mg PO BID #180 tabs 01/09/23 08/10/23 Rx gabapentin 300 mg capsule 600 mg (2 x 300 mg) PO HS #180 caps 02/10/23 08/10/23 Rx oxycodone-acetaminophen 5 mg-325 1 tab PO Q6H PRN pain #30 tabs 05/15/23 Rx mg tablet (Percocet) vitamin B complex and vitamin C 1 cap PO QAM #90 caps 07/09/23 08/10/23 Rx no.20-folic acid 1 mg capsule (Renal Caps) alprazolam 0.25 mg tablet 0.25 mg PO HS PRN Anxiety #30 tabs 07/23/23 08/10/23 Rx Patient History Medical History Anemia of chronic disease Encounter for pre-operative examination Wheelchair dependent Lobar pneumonia 08/2022 treated at [facility] inpatient. no current issues AV fistula LEFT History of blood transfusion 12/19/21 per pt ESRD (end stage renal disease) on dialysis [facility] in [place] Mon-Fri-Fri Neuropathic pain Sacral decubitus ulcer, stage IV "stable to improved" [place] 2X PER WEEK. patient's changes dressing as instructed at home. 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 Shrestha at [facility] [place] [place]WC BOUND FOR 3 YEARS D/T CYSTS. inhibiting patient to ambulate. 04/25/23: awaiting for surgery to remove the spinal cyst but will need his ulcer wound repaired and healed fully first --> reason for upcoming colostomy. Anemia due to chronic kidney disease History of CHF (congestive heart failure) Impotence, organic Anxiety Sleep apnea CPAP PTSD (post-traumatic stress disorder) POST AORTIC DISSECTION Neurogenic bladder Self Catheterization since Aortic repair 4-5X PER DAY Lumbar spinal stenosis Hypertension Hyperlipidemia Atrial fibrillation Follows with [facility] cardiology (Dr. Otoole) On Eliquis Abdominal aortic aneurysm (~2014) S/p Type A dissection with emergent repair in 2014 - Follows with vascular - last seen 11/2022- AAA 3.3cm, iliac artery aneursym (right 2.0cm and left 3.0 cm)- all stable in size; chronic thoracic aortic dissection- stable- vascular recommended repeating imaging May 2024 Surgical History History of removal of tunneled central venous catheter (CVC) with port removal of perm cath 05/[address] Marroquin S/P arteriovenous (AV) fistula creation left S/P debridement (02/08/22) Sacral Wound Debridment, Sacral bone biopsy(Not Applicable) - Jose Le, DO S/P debridement (06/27/21) Excisional Debridement Sacral Decubitus Ulcer down to muscle level 4cm x 6cm - Ranjeet Myers, DO 06/27/2021 Excisional Debridement of Sacral Decubitus Ulcer Down to Bone, 11cm x 10cm(Not Applicable) - Ranjeet Myers, DO 07/25/2021: MAC 3, ETT 7.5. History of revision of total hip arthroplasty History of arthroplasty of left hip S/P total right hip arthroplasty History of cardioversion mult>FOLLOWS WITH DR. 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 History of gastric bypass 2010 History of cardiac catheterization 2004 - no stents - [facility] in [place] Family History Grandmother Family history of diabetes mellitus Mother Gallbladder disease Father Prostate cancer Myocardial infarction Hypertension Other Family history non-contributory No family history of adverse response to anesthesia Denies family history of Ovarian cancer Breast cancer Colorectal cancer Social History Smoking Status: Never smoker Second Hand Exposure: No; Do You Dip or Chew Tobacco: No; Hx Alcohol Use: No Hx Substance Use: No Preferred Language: Irish Communication Ability: Effective Visual Impairment: Limited Hearing Ability: Normal 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: No Beliefs That Will Affect Care: None marital status: Current Living Situation: Spouse Current Living Situation Comment: Lives with at home current occupational status: retired How many Children do You have: 1 Feels Safe at Home: Yes Safety Concerns: Feels Safe At This Time Childhood Exposure to Second-Hand Smoke: Yes (father did ) Diet: regular Diet Comment: low sugar, low phospate caffeine: Yes (tea) during the past year weight has: remained stable Dental Care, Regularly: Yes Physical Activity Frequency: Does not Exercise Physical Activity Frequency Comment: goes to PT twice a week Seatbelt Use: always Sunscreen Use: Yes Do you think of yourself as: straight/heterosexual Gender Identity: Male Assistive Devices: Wheelchair Review of Systems Review of Systems: All systems reviewed & are unremarkable except as noted in Subjective Physical Exam Constitutional: WD/WN, vitals as above + ill appearing; no acute distress Eyes: + anicteric sclerae Neck: normal visual inspection Respiratory: normal respiratory effort; no respiratory distress and no cough Auscultation: + diminished lung sounds (rt lower and mid lung); no crackles and no wheezes Cardiovascular: Rate/Rhythm: regular rate and regular rhythm Heart Sounds: normal S1 and normal S2 Extremities: + AV fistula (left BC AVF with thrill and bruit, small aneurysm); no edema Gastrointestinal (Abdomen): Inspection/Auscultation: abdomen normal to inspection and normal bowel sounds Percussion/Palpation: abdomen soft; abdomen nontender Musculoskeletal: Extremities: extremities normal to inspection Skin: normal turgor; no rashes Neurologic: no focal motor deficits and not confused Psychiatric: Orientation: alert and oriented x 3 Affect: euthymic affect Results & Data Vital Signs (Past 12 Hours) Vital Signs Temp Pulse Pulse Resp BP Pulse Ox Pulse Ox 08/11/23 07:40 37.2 C 95 H 16 164/90 H 91 08/11/23 02:05 08/11/23 01:49 37.8 C H 79 20 171/89 H 96 08/11/23 01:46 96 08/11/23 00:45 84 20 158/96 H 98 08/10/23 23:50 82 08/10/23 23:08 37.2 C 84 18 157/92 H 97 O2 Del Method O2 Del Method O2 Flow Rate O2 Flow Rate 08/11/23 07:40 Nasal Cannula 2 08/11/23 02:05 Nasal Cannula 2 08/11/23 01:49 Nasal Cannula 2 08/11/23 01:46 Nasal Cannula 2 08/11/23 00:45 Room Air 08/10/23 23:50 08/10/23 23:08 Nasal Cannula 2 PG Care Time/CCT Total # of Minutes Spent Total Time Spent with Patient: Total time spent is greater than 50% in coordination of care (as documented) at patient's floor/unit and/or counseling patient: Coding Level of Care Code 35707 INT INP/OBS CARE 3/75MIN Diagnoses ESRD (end stage renal disease) on dialysis N18.6; Z99.2 Generalized weakness R53.1 Hypoxia R09.02 Pneumonia J18.9 Laterality: right Lung location: middle lobe of lung Pneumonia type: due to unspecified organism Anemia of chronic disease D63.8 (4) Pneumonia Laterality: right Lung location: middle lobe of lung Pneumonia type: due to unspecified organism Qualified Code(s): J18.9 - Pneumonia, unspecified organism
--- NOTE | 2023-08-11 11:26 | Hospitalist Progress Note ---
Date of Service August 11, 2023 Assessment & Plan (1) Pneumonia: Plan: Patient presents to the hospital with generalized weakness, although wheelchair- bound at baseline On admission, WBC was 14,000 Chest x-ray showed evidence of right midlung airspace consolidation Blood cultures likely obtained Empirically started on IV antibiotics (2) Generalized weakness: Plan: Acute onset the morning of 08/10 Patient is wheelchair-bound at baseline d/t a cyst at L1/L2 leading to decreased LLE strength Elevated WBC at 14.72 with neutrophil predominance BioFire negative CXR revealed cardiomegaly with pulmonary vascular congestion; also noted a patchy airspace consolidation in the right midlung and right lung base which could indicate pulmonary edema or pneumonia UA positive in the setting of neurogenic bladder/Perry; urine culture ordered, pending Hx of decubitus ulcer (stage IV) Unclear source of infection; clinically, patient denies respiratory/urinary symptoms MRSA swab ordered, pending Last wound culture on 07/03/2023 grew Pseudomonas and E. coli; wound culture on 10/03/2022 grew Enterococcus faecalis and MRSA; repeat wound culture ordered, pending Cefepime started in the ED Given history of MRSA from wound culture and unclear source, will switch to linezolid (Zyvox) 600 mg IV BID; hold nortriptyline PT/OT consulted A.m. CBC, BMP (3) ESRD (end stage renal disease) on dialysis: Plan: HD on // Last dialysis on Tuesday 08/08 No BP, labs, IVs in LUE due to port Nephrology consulted for inpatient dialysis Continue sevelamer, Nephrocaps (4) Sacral decubitus ulcer, stage IV: Plan: Wound culture (as above) Daily wound care Wound care nurse consulted Sacral decubitus ulcer has been ongoing; plastic surgery planned for September 05, 2022 Patient was supposed to have a preop appointment at [place] on Friday 08/11; may need to reschedule (5) Neuropathic pain: Plan: Continue gabapentin Hold nortriptyline (as above) Acetaminophen as needed for pain Oxycodoneacetaminophen q6h as needed for breakthrough pain (6) Elevated troponin: Plan: Troponin 40.4-->31.8 on arrival Clinically, patient denies CP, pleuritic CP, SOB Continue telemetry monitoring (7) Anemia of chronic disease: Plan: Hgb 9.6 and HCT 29.9 on arrival; chronic; stable Secondary to ESRD (8) Neurogenic bladder: Plan: Perry in place (9) Hyperlipidemia: Plan: Continue atorvastatin (10) Anxiety: Plan: Continue alprazolam as needed (11) Atrial fibrillation: Plan: Continue metoprolol, Eliquis (12) Sleep apnea: Plan: CPAP HS (13) Wheelchair dependent: Plan Disposition: PT OT consulted, patient may need placement after discharge Full code Renal dialysis diet VTE PPx: On Eliquis Admission and Anticipated Discharge Date Admission Date: August 10, 2023 Subjective Patient seen and examined this morning, feels overall better. Denies shortness of breath or chest pain Review of Systems Review of Systems: All systems reviewed are negative, apart from the ones contained in the history. Physical Exam Physical Exam: The patient is awake, alert and oriented 3, well developed and well nourished, normocephalic and atraumatic, lying in bed and in no acute distress. HEENT--PERRL, EOMI, mucous membranes and oropharynx mildly dry Neck--supple. No JVD. No bruits. Thyroid normal, trachea midline, no adenopathy. Heart--normal S1 and S2. No murmurs, rubs or gallops. Lungs--clear bilaterally, no respiratory distress, no accessory muscle use. Abdomen--normal bowel sounds and soft. Extremities--no cyanosis or clubbing. No edema. Dermatologic--normal skin turgor, normal color, no abnormal lymph nodes, no rash. Neurologic--cranial nerves II through XII grossly intact. Rheumatologic--normal range of motion. Psychiatric--normal affect. Results & Data Results & Data Vital Signs (Past 12 Hours) Vital Signs Temp Pulse Pulse Resp BP Pulse Ox Pulse Ox 08/11/23 07:40 99.0 F 95 H 16 164/90 H 91 08/11/23 02:05 08/11/23 01:49 100.0 F H 79 20 171/89 H 96 08/11/23 01:46 96 08/11/23 00:45 84 20 158/96 H 98 08/10/23 23:50 82 O2 Del Method O2 Del Method O2 Flow Rate O2 Flow Rate 08/11/23 07:40 Nasal Cannula 2 08/11/23 02:05 Nasal Cannula 2 08/11/23 01:49 Nasal Cannula 2 08/11/23 01:46 Nasal Cannula 2 08/11/23 00:45 Room Air 08/10/23 23:50 PG Care Time/CCT Total # of Minutes Spent Total Time Spent with Patient: Total time spent is greater than 50% in coordination of care (as documented) at patient's floor/unit and/or counseling patient: Coding Level of Care Code 60859 SUB INP/OBS CARE 2/35MIN Diagnoses Pneumonia J18.9 Laterality: right Lung location: middle lobe of lung Pneumonia type: due to unspecified organism Generalized weakness R53.1 ESRD (end stage renal disease) on dialysis N18.6; Z99.2 Sacral decubitus ulcer, stage IV L89.154 Neuropathic pain M79.2 Elevated troponin R79.89 Anemia of chronic disease D63.8 Neurogenic bladder N31.9 Hyperlipidemia E78.5 Anxiety F41.9 Permanent atrial fibrillation I48.2 Atrial fibrillation type: permanent Sleep apnea G47.30 Wheelchair dependent Z99.3 Time Spent (min) 35 (1) Pneumonia Laterality: right Lung location: middle lobe of lung Pneumonia type: due to unspecified organism Qualified Code(s): J18.9 - Pneumonia, unspecified organism (11) Atrial fibrillation Atrial fibrillation type: permanent Qualified Code(s): I48.2 - Chronic atrial fibrillation
[2023-08-11] MEDS ORDERED: EPOETIN ALFA 20,000 UNITS/ML VIAL IV ONE (13:00)
[2023-08-12 05:22] LABS: Basophils # (auto) 0.08 K/uL (0.00-0.20); Eosinophils # (auto) 1.12 K/uL (0.00-0.50); Eosinophils % (auto) 13.9 %; Hematocrit (blood only) 29.8 % (42.0-52.0); Hemoglobin 9.2 g/dl (14.0-18.0); Immature Granulocytes # (auto) 0.04 K/uL (0.01-0.20); Immature Granulocytes % (auto) 0.5 %; Lymphocytes # (auto) 0.77 K/uL (1.20-3.40); Lymphocytes % (auto) 9.6 %; Mean Corpuscular Hemoglobin 31.4 pg (25.0-34.0); Mean Corpuscular Hgb Conc 30.9 g/dL (32.0-36.0); Mean Corpuscular Volume 101.7 fL (80.0-100.0); Mean Platelet Volume 9.2 fL (9.4-12.4); Monocytes # (auto) 0.55 K/uL (0.11-0.59); Monocytes % (auto) 6.8 %; Neutrophils # (auto) 5.47 K/uL (1.40-6.50); Neutrophils % (auto) 68.2 %; Platelet Count 156 K/uL (130-400); RDW Coefficient of Variation 15.6 % (11.5-14.5); RDW Standard Deviation 58.1 fL (36.4-46.3); Red Blood Count 2.93 M/uL (4.70-6.10); White Blood Count 8.03 K/ul (4.8-10.8)
[2023-08-12 05:27] LABS: BUN Creatinine Ratio 11.1 (10-20); Calcium 8.7 mg/dl (8.6-10.3); Creatinine Clr Calc Pharmacy 20.3 ml/min; Est GFR (African American) 19.5 ml/min; Est GFR (Non-African American) 16.8 ml/min; Potassium 3.8 mmol/L (3.5-5.1)
[2023-08-12] MEDS: SEVELAMER HCL 800 MG TABLET PO SCH ×3 (08:38→17:49)
[2023-08-12] MEDS: APIXABAN 2.5 MG TAB PO SCH ×2 (08:38→20:02)
[2023-08-12] MEDS: LINEZOLID 600 MG TAB PO SCH ×2 (08:39→20:01)
[2023-08-12] MEDS: NEPHROCAPS PO SCH (08:39)
[2023-08-12] MEDS: METOPROLOL SUCC 25MG EXT REL TAB PO SCH (08:39)
--- NOTE | 2023-08-12 10:28 | Nephrology Progress Note ---
Date of Service August 12, 2023 Assessment & Plan (1) ESRD (end stage renal disease) on dialysis: (2) Generalized weakness: (3) Hypoxia: (4) Pneumonia: (5) Anemia of chronic disease: Plan 78-year-old gentleman with end-stage kidney disease on hemodialysis, Friday, , Friday via left brachiocephalic AV fistula. Admitted with generalized weakness, hypoxia and right lower lobe pneumonia. Started on cefepime and linezolid empirically. Labs and volume status acceptable, blood pressure fair. -- continue HD MWF -- Continue on Nephrocaps and phosphate binder -- Epogen 20,000 units given with dialysis on 08/11/23 -- Left arm nephrology precaution, dose medications for EGFR less than 10 Admission and Anticipated Discharge Date Admission Date: August 10, 2023 Subjective Sylvester was seen and evaluated this am. Overall doing well, denies any concerns. Had wound dressing done this morning. BP fair. Had HD yesterday. Review of Systems Review of Systems: All systems reviewed are negative, apart from the ones contained in the history. Results & Data Vital Signs (Past 12 Hours) Vital Signs Temp Pulse Pulse Resp BP Pulse Ox O2 Del Method 08/12/23 07:32 83 08/12/23 07:22 36.7 C 86 16 151/88 H 95 Room Air 08/12/23 02:49 76 18 158/88 H 97 Room Air, BiPAP 08/11/23 23:24 76 08/11/23 22:59 37.1 C 80 18 142/81 H 94 Room Air PG Care Time/CCT Total # of Minutes Spent Total Time Spent with Patient: Total time spent is greater than 50% in coordination of care (as documented) at patient's floor/unit and/or counseling patient: Coding Level of Care Code 81844 SUB INP/OBS CARE 2/35MIN Diagnoses ESRD (end stage renal disease) on dialysis N18.6; Z99.2 Generalized weakness R53.1 Hypoxia R09.02 Pneumonia J18.9 Laterality: right Lung location: middle lobe of lung Pneumonia type: due to unspecified organism Anemia of chronic disease D63.8 (4) Pneumonia Laterality: right Lung location: middle lobe of lung Pneumonia type: due to unspecified organism Qualified Code(s): J18.9 - Pneumonia, unspecified organism
--- NOTE | 2023-08-12 11:08 | Hospitalist Progress Note ---
Date of Service August 12, 2023 Assessment & Plan (1) Pneumonia: Plan: Patient presents to the hospital with generalized weakness, although wheelchair- bound at baseline On admission, WBC was 14,000 Chest x-ray showed evidence of right midlung airspace consolidation Empirically started on IV antibiotics Patient clinically much improved Cultures negative so far (2) Generalized weakness: Plan: Patient is wheelchair-bound at baseline d/t a cyst at L1/L2 leading to decreased LLE strength Elevated WBC at 14.72 with neutrophil predominance, on admission, some improvement following IV antibiotics BioFire negative CXR revealed cardiomegaly with pulmonary vascular congestion; also noted a patchy airspace consolidation in the right midlung and right lung base which could indicate pulmonary edema or pneumonia UA positive in the setting of neurogenic bladder/Perry; urine culture ordered, pending Hx of decubitus ulcer (stage IV) Unclear source of infection; clinically, patient denies respiratory/urinary symptoms MRSA swab ordered, pending Last wound culture on 07/03/2023 grew Pseudomonas and E. coli; wound culture on 10/03/2022 grew Enterococcus faecalis and MRSA; repeat wound culture ordered, pen ding Cefepime started in the ED Given history of MRSA from wound culture and unclear source, will switch to linezolid (Zyvox) 600 mg IV BID; hold nortriptyline PT/OT consulted A.m. CBC, BMP (3) ESRD (end stage renal disease) on dialysis: Plan: HD on // No BP, labs, IVs in LUE due to port Nephrology consulted for inpatient dialysis Continue sevelamer, Nephrocaps (4) Sacral decubitus ulcer, stage IV: Plan: Wound culture (as above) Daily wound care Wound care nurse consulted Sacral decubitus ulcer has been ongoing; plastic surgery planned for September 05, 2022 Patient was supposed to have a preop appointment at [place] on Friday 08/11; may need to reschedule (5) Neuropathic pain: Plan: Continue gabapentin Hold nortriptyline (as above) Acetaminophen as needed for pain Oxycodoneacetaminophen q6h as needed for breakthrough pain (6) Elevated troponin: Plan: Troponin 40.4-->31.8 on arrival Clinically, patient denies CP, pleuritic CP, SOB Continue telemetry monitoring (7) Anemia of chronic disease: Plan: Hgb 9.6 and HCT 29.9 on arrival; chronic; stable Secondary to ESRD (8) Neurogenic bladder: Plan: Perry in place (9) Hyperlipidemia: Plan: Continue atorvastatin (10) Anxiety: Plan: Continue alprazolam as needed (11) Atrial fibrillation: Plan: Continue metoprolol, Eliquis (12) Sleep apnea: Plan: CPAP HS (13) Wheelchair dependent: Plan Disposition: Patient uses wheelchair at baseline and I spoke to the and she is in agreement that he will be discharged home with [facility] home health upon completion of treatment. Full code Renal dialysis diet VTE PPx: On Eliquis Admission and Anticipated Discharge Date Admission Date: August 10, 2023 Subjective Patient seen and examined today, states he feels much better, his strength has come back to baseline. Review of Systems Review of Systems: All systems reviewed are negative, apart from the ones contained in the history. Physical Exam Physical Exam: The patient is awake, alert and oriented 3, well developed and well nourished, normocephalic and atraumatic, lying in bed and in no acute distress. HEENT--PERRL, EOMI, mucous membranes and oropharynx mildly dry Neck--supple. No JVD. No bruits. Thyroid normal, trachea midline, no adenopathy. Heart--normal S1 and S2. No murmurs, rubs or gallops. Lungs--clear bilaterally, no respiratory distress, no accessory muscle use. Abdomen--normal bowel sounds and soft. Extremities--no cyanosis or clubbing. No edema. Dermatologic--normal skin turgor, normal color, no abnormal lymph nodes, no rash. Neurologic--cranial nerves II through XII grossly intact. Rheumatologic--normal range of motion. Psychiatric--normal affect. Results & Data Results & Data Vital Signs (Past 12 Hours) Vital Signs Temp Pulse Pulse Resp BP Pulse Ox O2 Del Method 08/12/23 07:32 83 08/12/23 07:22 98.1 F 86 16 151/88 H 95 Room Air 08/12/23 02:49 76 18 158/88 H 97 Room Air, BiPAP 08/11/23 23:24 76 PG Care Time/CCT Total # of Minutes Spent Total Time Spent with Patient: Total time spent is greater than 50% in coordination of care (as documented) at patient's floor/unit and/or counseling patient: Coding Level of Care Code 50243 SUB INP/OBS CARE MIN Diagnoses Pneumonia J18.9 Laterality: right Lung location: middle lobe of lung Pneumonia type: due to unspecified organism Generalized weakness R53.1 ESRD (end stage renal disease) on dialysis N18.6; Z99.2 Sacral decubitus ulcer, stage IV L89.154 Neuropathic pain M79.2 Elevated troponin R79.89 Anemia of chronic disease D63.8 Neurogenic bladder N31.9 Hyperlipidemia E78.5 Anxiety F41.9 Permanent atrial fibrillation I48.2 Atrial fibrillation type: permanent Sleep apnea G47.30 Wheelchair dependent Z99.3 Time Spent (min) 35 (1) Pneumonia Laterality: right Lung location: middle lobe of lung Pneumonia type: due to unspecified organism Qualified Code(s): J18.9 - Pneumonia, unspecified organism (11) Atrial fibrillation Atrial fibrillation type: permanent Qualified Code(s): I48.2 - Chronic atrial fibrillation
[2023-08-12] MEDS: CEFEPIME 1,000 MG in SYRINGE 0 ML IV SCH (11:13)
[2023-08-12] MEDS: GABAPENTIN 300 MG CAP PO SCH (20:02)
[2023-08-12] MEDS: ATORVASTATIN 20 MG TAB PO SCH (20:02)
[2023-08-13] MEDS: ALPRAZolam 0.25 MG TABLET PO PRN ×2 (02:16→22:00)
[2023-08-13] MEDS: SEVELAMER HCL 800 MG TABLET PO SCH ×3 (08:19→18:08)
[2023-08-13] MEDS: NEPHROCAPS PO SCH (08:19)
[2023-08-13] MEDS: LINEZOLID 600 MG TAB PO SCH ×2 (08:20→22:00)
[2023-08-13] MEDS: APIXABAN 2.5 MG TAB PO SCH ×2 (08:20→22:00)
[2023-08-13] MEDS ORDERED: EPOETIN ALFA 10,000 UNITS/ML VIAL IV SCH (08:30)
[2023-08-13 08:54] LABS: Hematocrit (blood only) 30.3 % (42.0-52.0); Hemoglobin 9.6 g/dl (14.0-18.0); Mean Corpuscular Hemoglobin 31.6 pg (25.0-34.0); Mean Corpuscular Hgb Conc 31.7 g/dL (32.0-36.0); Mean Corpuscular Volume 99.7 fL (80.0-100.0); Mean Platelet Volume 9.2 fL (9.4-12.4); Platelet Count 165 K/uL (130-400); RDW Coefficient of Variation 15.6 % (11.5-14.5); RDW Standard Deviation 57.4 fL (36.4-46.3); Red Blood Count 3.04 M/uL (4.70-6.10)
[2023-08-13 09:27] LABS: BUN Creatinine Ratio 11.5 (10-20); Calcium 8.8 mg/dl (8.6-10.3); Creatinine Clr Calc Pharmacy 15.3 ml/min; Est GFR (African American) 13.8 ml/min; Est GFR (Non-African American) 11.9 ml/min; Potassium 3.7 mmol/L (3.5-5.1)
--- NOTE | 2023-08-13 10:30 | Nephrology Progress Note ---
Date of Service August 13, 2023 Assessment & Plan (1) ESRD (end stage renal disease) on dialysis: (2) Generalized weakness: (3) Hypoxia: (4) Pneumonia: (5) Anemia of chronic disease: Plan 78-year-old gentleman with end-stage kidney disease on hemodialysis, Friday, , Friday via left brachiocephalic AV fistula. Admitted with generalized weakness, hypoxia and right lower lobe pneumonia. Started on cefepime and linezolid empirically. Labs and volume status acceptable, blood pressure fair. -- tolerating HD, continue HD MWF -- Continue on Nephrocaps and phosphate binder -- Epogen with dialysis today -- Left arm nephrology precaution, dose medications for EGFR less than 10 Admission and Anticipated Discharge Date Admission Date: August 10, 2023 Subjective Sylvester was seen and evaluated during HD this am. Overall doing well, denies any concerns. Had wound dressing done this morning. BP fair. Had HD yesterday. Review of Systems Review of Systems: All systems reviewed are negative, apart from the ones contained in the history. Physical Exam Constitutional: WD/WN, vitals as above no acute distress Eyes: + anicteric sclerae Neck: normal visual inspection Respiratory: Auscultation: + diminished lung sounds (rt lower and mid lung); no crackles and no wheezes Cardiovascular: Rate/Rhythm: regular rate and regular rhythm Heart Sounds: normal S1 and normal S2 Extremities: + AV fistula (left BC AVF with thrill and bruit, small aneurysm); no edema Musculoskeletal: Extremities: extremities normal to inspection Psychiatric: Orientation: alert and oriented x 3 Affect: euthymic affect Results & Data Vital Signs (Past 12 Hours) Vital Signs Temp Pulse Pulse Resp BP Pulse Ox O2 Del Method 08/13/23 07:56 36.4 C L 82 18 162/85 H 97 Room Air 08/13/23 05:53 80 08/13/23 03:00 76 18 166/90 H 95 Room Air, BiPAP 08/12/23 22:45 76 18 151/84 H 94 Room Air PG Care Time/CCT Total # of Minutes Spent Total Time Spent with Patient: Total time spent is greater than 50% in coordination of care (as documented) at patient's floor/unit and/or counseling patient: Coding Level of Care Code 16173 SUB INP/OBS CARE 2/35MIN Diagnoses ESRD (end stage renal disease) on dialysis N18.6; Z99.2 Generalized weakness R53.1 Hypoxia R09.02 Pneumonia J18.9 Laterality: right Lung location: middle lobe of lung Pneumonia type: due to unspecified organism Anemia of chronic disease D63.8 (4) Pneumonia Laterality: right Lung location: middle lobe of lung Pneumonia type: due to unspecified organism Qualified Code(s): J18.9 - Pneumonia, unspecified organism
--- NOTE | 2023-08-13 11:00 | Discharge Summary ---
Date of Service August 13, 2023 Admission HPI Per Admitting Provider Guanaco is a pleasant 78-year-old gentleman with PMH of ESRD on HD M/W/F, colostomy status, anxiety, atrial fibrillation, HTN, lymphedema, sacral decubitus ulcer (stage IV), neurogenic bladder, neurogenic bowel, sleep apnea, and inability to walk. He presented via EMS for acute onset of generalized weakness the morning of 08/10. He reports being so weak that he could barely sit up in bed. Patient took all of his regular morning medications this morning. No recent change in medications. He manages his own medications at home, along with his . No recent falls, injuries, or trauma. Patient is in a wheel chair at baseline, as his left leg does not work due to a cyst at L1/L2. Patient is currently scheduled to have plastic surgery for his decubitus ulcer on September 05, [id number]. No sick contacts. No supplemental at home oxygen usage. Patient denies smoking, alcohol use, vaping, tobacco use, and recreational drug use. Patient's vitals are stable at time of admission; SpO2 98% on 2L. ED course: Cefepime 2000 mg IV NSS 500 mL IV ROS: Patient endorses MATTA (resolved), back pain (secondary to decubitus ulcer), and numbness/tingling in the left leg (due to cyst on L1/L2) Patient denies fever, chills, nightsweats, dizziness, lightheadedness, cough, hemoptysis, pleuritic CP, chest pain, chest palpitations, SOB, abdominal pain, N/V/D, burning with urination, dysuria, Principal Diagnosis Lobar pneumonia Discharge Exam The patient is awake, alert and oriented 3, well developed and well nourished, normocephalic and atraumatic, lying in bed and in no acute distress. HEENT--PERRL, EOMI, mucous membranes and oropharynx mildly dry Neck--supple. No JVD. No bruits. Thyroid normal, trachea midline, no adenopathy. Heart--normal S1 and S2. No murmurs, rubs or gallops. Lungs--clear bilaterally, no respiratory distress, no accessory muscle use. Abdomen--normal bowel sounds and soft. Extremities--no cyanosis or clubbing. No edema. Dermatologic--normal skin turgor, normal color, no abnormal lymph nodes, no rash. Neurologic--cranial nerves II through XII grossly intact. Rheumatologic--normal range of motion. Psychiatric--normal affect. Discharge Data Allergies Allergy/AdvReac Type Severity Reaction Status Date / Time tetracycline Allergy Intermediate HIVES Verified 08/10/23 16:56 morphine AdvReac Intermediate Nausea Verified 08/10/23 16:56 Consultations 08/10/23 18:43 ED Decision to Admit Stat 08/11/23 01:46 Consult Nephrology Routine Hospital Course (1) Pneumonia: Patient presents to the hospital with generalized weakness, although wheelchair- bound at baseline On admission, WBC was 14,000 Chest x-ray showed evidence of right midlung airspace consolidation Empirically started on IV antibiotics Patient clinically much improved Cultures negative so far Discharge home on linezolid 600 mg twice daily for 5 more days (2) Generalized weakness: Patient is wheelchair-bound at baseline d/t a cyst at L1/L2 leading to decreased LLE strength Elevated WBC at 14.72 with neutrophil predominance, on admission, some improvement following IV antibiotics BioFire negative CXR revealed cardiomegaly with pulmonary vascular congestion; also noted a patchy airspace consolidation in the right midlung and right lung base which could indicate pulmonary edema or pneumonia UA positive in the setting of neurogenic bladder/Perry; urine culture ordered, pending Hx of decubitus ulcer (stage IV) Unclear source of infection; clinically, patient denies respiratory/urinary symptoms MRSA swab ordered, pending Last wound culture on 07/03/2023 grew Pseudomonas and E. coli; wound culture on 10/03/2022 grew Enterococcus faecalis and MRSA; repeat wound culture ordered, pending Cefepime started in the ED Given history of MRSA from wound culture and unclear source, will switch to linezolid (Zyvox) 600 mg IV BID; hold nortriptyline PT/OT consulted A.m. CBC, BMP (3) ESRD (end stage renal disease) on dialysis: HD on // No BP, labs, IVs in LUE due to port Nephrology consulted for inpatient dialysis Continue sevelamer, Nephrocaps (4) Sacral decubitus ulcer, stage IV: Present on admission Wound culture (as above) Daily wound care Wound care nurse consulted Sacral decubitus ulcer has been ongoing; plastic surgery planned for September 05, 2022 Patient was supposed to have a preop appointment at [place] on Friday 08/11; may need to reschedule (5) Neuropathic pain: Continue gabapentin Hold nortriptyline (as above) Acetaminophen as needed for pain Oxycodoneacetaminophen q6h as needed for breakthrough pain (6) Elevated troponin: Troponin 40.4-->31.8 on arrival Clinically, patient denies CP, pleuritic CP, SOB Continue telemetry monitoring (7) Anemia of chronic disease: Hgb 9.6 and HCT 29.9 on arrival; chronic; stable Secondary to ESRD (8) Neurogenic bladder: Perry in place (9) Hyperlipidemia: Continue atorvastatin (10) Anxiety: Continue alprazolam as needed (11) Atrial fibrillation: Continue metoprolol, Eliquis (12) Sleep apnea: CPAP HS (13) Wheelchair dependent: Plan Disposition: Patient uses wheelchair at baseline and I spoke to the and she is in agreement that he will be discharged home with [facility] home health upon completion of treatment. Full code Renal dialysis diet VTE PPx: On Eliquis Total Time Total Time Spent Total Time Spent (In Minutes): 35 minutes Discharge Plan Discharge Items Patient Disposition: Home - Home Health Services Reason For Visit: GENERALIZED WEAKNESS Discharge Diagnosis: lobar PNA Activity: Resume your previous activity Non-emergency contact: Primary Care Provider and [employer] Call non-emergency contact if: you have any medication questions Follow-up/Referrals: Jasiel Pineda DO [Primary Care Provider] - Diet: Dialysis Renal Addtl Attending Provider Instructions: Please make appointment to follow-up with your regular PCP and 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 Also follow-up with your [facility] home health agency Pending Studies at Discharge: No Stand-Alone Forms: [facility] Impressto, Smoking Cessation Medications and DC Order Prescriptions: New linezolid 600 mg Tablet 600 mg PO BID 5 Days Qty: 10 0RF Continued azelastine 0.15 % (205.5 mcg) spray,non-aerosol 1 spray INTNAS HS PRN (Reason: seasonal allergies) Qty: 30 2RF Rx Instructions: administer into each nostril (DME) Power Wheelchair Device See Rx Instructions .Route Qty: 1 0RF Rx Instructions: POWER WHEELCHAIR, DX: R53.1, R26.2 Eliquis 2.5 mg tablet 2.5 mg PO BID Qty: 180 3RF gabapentin 300 mg capsule 600 mg PO HS Qty: 180 5RF Renal Caps 1 mg capsule 1 cap PO QAM Qty: 90 3RF alprazolam 0.25 mg tablet 0.25 mg PO HS PRN (Reason: Anxiety) Qty: 30 0RF oxycodone-acetaminophen [Percocet] 5-325 mg tablet 1 tab PO Q6H PRN (Reason: pain) Qty: 30 0RF atorvastatin [Lipitor] 20 mg tablet 20 mg PO QPM Qty: 90 4RF metoprolol succinate 25 mg tablet extended release 24 hr 25 mg PO QAM Qty: 90 3RF nortriptyline [Pamelor] 25 mg capsule 25 mg PO HS Qty: 90 3RF cholecalciferol (vitamin D3) [Vitamin D3] 50 mcg (2,000 unit) Tablet 50 mcg PO QPM sevelamer carbonate 800 mg tablet See Rx Instructions .ROUTE .COMPLEX Rx Instructions: TAKES 800 MG WITH BREAKFAST & LUNCH, THEN 1,600 MG WITH SUPPER. acetaminophen [Tylenol Extra Strength] 500 mg Tablet 1,000 mg PO DIRECTED PRN (Reason: Pain) Discharge Orders: Discharge Order (Routine); Ordered 08/13/23 Ordered By: Maria De Jesus Alford Admission Data Admit Date/Time: 08/10/23 20:06 Attending Provider: Maria De Jesus Alford Admit Provider: Jaden Hay Primary Care Provider: Jasiel Pineda Other Providers: Jaden Hay; Cheyanne Cano; [facility] Coding Level of Care Code 80310 INP/OBS DISCH >30 MIN Diagnoses Pneumonia J18.9 Laterality: right Lung location: middle lobe of lung Pneumonia type: due to unspecified organism Generalized weakness R53.1 ESRD (end stage renal disease) on dialysis N18.6; Z99.2 Sacral decubitus ulcer, stage IV L89.154 Neuropathic pain M79.2 Elevated troponin R79.89 Anemia of chronic disease D63.8 Neurogenic bladder N31.9 Hyperlipidemia E78.5 Anxiety F41.9 Permanent atrial fibrillation I48.2 Atrial fibrillation type: permanent Sleep apnea G47.30 Wheelchair dependent Z99.3 Time Spent (min) 35
[2023-08-13] MEDS: METOPROLOL SUCC 25MG EXT REL TAB PO SCH (13:33)
[2023-08-13] MEDS: CEFEPIME 1,000 MG in SYRINGE 0 ML IV SCH (13:52)
--- NOTE | 2023-08-13 17:26 | Hospitalist Progress Note ---
Date of Service August 13, 2023 Assessment & Plan (1) Pneumonia: Plan: Patient presents to the hospital with generalized weakness, although wheelchair- bound at baseline On admission, WBC was 14,000 Chest x-ray showed evidence of right midlung airspace consolidation Empirically started on IV antibiotics Patient clinically much improved Cultures negative so far Discharge home on linezolid 600 mg twice daily for 5 more days (2) Generalized weakness: Plan: Patient is wheelchair-bound at baseline d/t a cyst at L1/L2 leading to decreased LLE strength Elevated WBC at 14.72 with neutrophil predominance, on admission, some improvement following IV antibiotics BioFire negative CXR revealed cardiomegaly with pulmonary vascular congestion; also noted a patchy airspace consolidation in the right midlung and right lung base which could indicate pulmonary edema or pneumonia UA positive in the setting of neurogenic bladder/Perry; urine culture ordered, pending Hx of decubitus ulcer (stage IV) Unclear source of infection; clinically, patient denies respiratory/urinary symptoms MRSA swab ordered, pending Last wound culture on 07/03/2023 grew Pseudomonas and E. coli; wound culture on 10/03/2022 grew Enterococcus faecalis and MRSA; repeat wound culture ordered, pending Cefepime started in the ED Given history of MRSA from wound culture and unclear source, will switch to linezolid (Zyvox) 600 mg IV BID; hold nortriptyline PT/OT consulted A.m. CBC, BMP (3) ESRD (end stage renal disease) on dialysis: Plan: HD on M/W/F No BP, labs, IVs in LUE due to port Nephrology consulted for inpatient dialysis Continue sevelamer, Nephrocaps (4) Sacral decubitus ulcer, stage IV: Plan: Present on admission Wound culture (as above) Daily wound care Wound care nurse consulted Sacral decubitus ulcer has been ongoing; plastic surgery planned for September 05, 2022 Patient was supposed to have a preop appointment at [place] on Friday 08/11; may need to reschedule (5) Neuropathic pain: Plan: Continue gabapentin Hold nortriptyline (as above) Acetaminophen as needed for pain Oxycodoneacetaminophen q6h as needed for breakthrough pain (6) Elevated troponin: Plan: Troponin 40.4-->31.8 on arrival Clinically, patient denies CP, pleuritic CP, SOB Continue telemetry monitoring (7) Anemia of chronic disease: Plan: Hgb 9.6 and HCT 29.9 on arrival; chronic; stable Secondary to ESRD (8) Neurogenic bladder: Plan: Perry in place (9) Hyperlipidemia: Plan: Continue atorvastatin (10) Anxiety: Plan: Continue alprazolam as needed (11) Atrial fibrillation: Plan: Continue metoprolol, Eliquis (12) Sleep apnea: Plan: CPAP HS (13) Wheelchair dependent: Plan Disposition: Patient uses wheelchair at baseline and I spoke to the and she is in agreement that he will be discharged home with [facility] home health upon completion of treatment. Full code Renal dialysis diet VTE PPx: On [facility] Admission and Anticipated Discharge Date Admission Date: August 10, 2023 Subjective patient seen and examined, was going for HD Review of Systems Review of Systems: All systems reviewed are negative, apart from the ones contained in the history. Physical Exam Physical Exam: The patient is awake, alert and oriented 3, well developed and well nourished, normocephalic and atraumatic, lying in bed and in no acute distress. HEENT--PERRL, EOMI, mucous membranes and oropharynx mildly dry Neck--supple. No JVD. No bruits. Thyroid normal, trachea midline, no adenopathy. Heart--normal S1 and S2. No murmurs, rubs or gallops. Lungs--clear bilaterally, no respiratory distress, no accessory muscle use. Abdomen--normal bowel sounds and soft. Extremities--no cyanosis or clubbing. No edema. Dermatologic--normal skin turgor, normal color, no abnormal lymph nodes, no rash. Neurologic--cranial nerves II through XII grossly intact. Rheumatologic--normal range of motion. Psychiatric--normal affect. Results & Data Results & Data Vital Signs (Past 12 Hours) Vital Signs Temp Pulse Pulse Pulse Pulse Resp BP 08/13/23 15:40 98.6 F 80 18 08/13/23 14:14 97.7 F 83 78 94 H 18 08/13/23 14:01 94 H 08/13/23 13:31 78 08/13/23 12:40 97.7 F 94 H 08/13/23 12:30 103 H 126/64 08/13/23 12:00 67 147/65 H 08/13/23 11:30 91 H 145/91 H 08/13/23 11:00 94 H 137/100 08/13/23 10:30 63 138/62 08/13/23 10:00 93 H 124/78 08/13/23 09:30 68 134/88 08/13/23 08:58 97.7 F 82 08/13/23 07:56 97.5 F L 82 18 08/13/23 05:53 80 BP Pulse Ox O2 Del Method 08/13/23 15:40 153/88 H 94 Room Air 08/13/23 14:14 134/80 97 08/13/23 14:01 08/13/23 13:31 134/80 08/13/23 12:40 144/98 H 08/13/23 12:30 08/13/23 12:00 08/13/23 11:30 08/13/23 11:00 08/13/23 10:30 08/13/23 10:00 08/13/23 09:30 08/13/23 08:58 08/13/23 07:56 162/85 H 97 Room Air 08/13/23 05:53 PG Care Time/CCT Total # of Minutes Spent Total Time Spent with Patient: Total time spent is greater than 50% in coordination of care (as documented) at patient's floor/unit and/or counseling patient: Coding Level of Care Code 52194 SUB INP/OBS CARE 2/35MIN Diagnoses Pneumonia J18.9 Laterality: right Lung location: middle lobe of lung Pneumonia type: due to unspecified organism Generalized weakness R53.1 ESRD (end stage renal disease) on dialysis N18.6; Z99.2 Sacral decubitus ulcer, stage IV L89.154 Neuropathic pain M79.2 Elevated troponin R79.89 Anemia of chronic disease D63.8 Neurogenic bladder N31.9 Hyperlipidemia E78.5 Anxiety F41.9 Permanent atrial fibrillation I48.2 Atrial fibrillation type: permanent Sleep apnea G47.30 Wheelchair dependent Z99.3 Time Spent (min) 35 (1) Pneumonia Laterality: right Lung location: middle lobe of lung Pneumonia type: due to unspecified organism Qualified Code(s): J18.9 - Pneumonia, unspecified organism (11) Atrial fibrillation Atrial fibrillation type: permanent Qualified Code(s): I48.2 - Chronic atrial fibrillation
[2023-08-13] MEDS: ATORVASTATIN 20 MG TAB PO SCH (22:00)
[2023-08-13] MEDS: GABAPENTIN 300 MG CAP PO SCH (22:00)
[2023-08-14] MEDS: LINEZOLID 600 MG TAB PO SCH (08:32)
[2023-08-14] MEDS: METOPROLOL SUCC 25MG EXT REL TAB PO SCH (08:32)
[2023-08-14] MEDS: SEVELAMER HCL 800 MG TABLET PO SCH (08:32)
[2023-08-14] MEDS: APIXABAN 2.5 MG TAB PO SCH (08:32)
[2023-08-14] MEDS: NEPHROCAPS PO SCH (08:33)
--- NOTE | 2023-08-14 10:15 | Nephrology Progress Note ---
Date of Service August 14, 2023 Assessment & Plan (1) ESRD (end stage renal disease) on dialysis: (2) Generalized weakness: (3) Hypoxia: (4) Pneumonia: (5) Anemia of chronic disease: Plan 78-year-old gentleman with end-stage kidney disease on hemodialysis, Friday, , Friday via left brachiocephalic AV fistula. Admitted with generalized weakness, hypoxia and right lower lobe pneumonia. Started on cefepime and linezolid empirically. Labs and volume status acceptable, blood pressure fair. -- had HD yesterday, continue HD MWF -- Continue on Nephrocaps and phosphate binder -- Epogen with dialysis given yesterday -- Left arm nephrology precaution, dose medications for EGFR less than 10 --if DC today, advised to attend HD tomorrow at out pt unit. Admission and Anticipated Discharge Date Admission Date: August 10, 2023 Subjective Sylvester was seen and evaluated this am. Overall doing well, denies any concerns. BP fair. Had HD yesterday. Review of Systems Review of Systems: All systems reviewed are negative, apart from the ones contained in the history. Physical Exam Constitutional: WD/WN, vitals as above + ill appearing; no acute distress Eyes: + anicteric sclerae Neck: normal visual inspection Respiratory: normal respiratory effort Auscultation: + diminished lung sounds (rt lower and mid lung) Cardiovascular: Rate/Rhythm: regular rate and regular rhythm Heart Sounds: normal S1 and normal S2 Extremities: + AV fistula (left BC AVF with thrill and bruit, small aneurysm); no edema Musculoskeletal: Extremities: extremities normal to inspection Neurologic: no focal motor deficits and not confused Psychiatric: Orientation: alert and oriented x 3 Affect: euthymic affect Results & Data Vital Signs (Past 12 Hours) Vital Signs Temp Pulse Pulse Pulse Pulse Resp BP 08/14/23 08:35 36.7 C 83 80 94 H 18 148/81 H 08/14/23 08:21 36.7 C 80 18 148/81 H 08/14/23 05:53 73 08/14/23 02:44 79 18 151/91 H 08/13/23 22:49 37.1 C 56 L 18 140/84 Pulse Ox O2 Del Method 08/14/23 08:35 96 08/14/23 08:21 96 Room Air 08/14/23 05:53 08/14/23 02:44 95 Room Air, BiPAP 08/13/23 22:49 97 Room Air PG Care Time/CCT Total # of Minutes Spent Total Time Spent with Patient: Total time spent is greater than 50% in coordination of care (as documented) at patient's floor/unit and/or counseling patient: Coding Level of Care Code 24501 SUB INP/OBS CARE 2/35MIN Diagnoses ESRD (end stage renal disease) on dialysis N18.6; Z99.2 Generalized weakness R53.1 Hypoxia R09.02 Pneumonia J18.9 Laterality: right Lung location: middle lobe of lung Pneumonia type: due to unspecified organism Anemia of chronic disease D63.8 (4) Pneumonia Laterality: right Lung location: middle lobe of lung Pneumonia type: due to unspecified organism Qualified Code(s): J18.9 - Pneumonia, unspecified organism
--- NOTE | 2023-08-14 11:05 | Discharge Summary ---
Date of Service August 14, 2023 Admission HPI Per Admitting Provider Guanaco is a pleasant 78-year-old gentleman with PMH of ESRD on HD M/W/F, colostomy status, anxiety, atrial fibrillation, HTN, lymphedema, sacral decubitus ulcer (stage IV), neurogenic bladder, neurogenic bowel, sleep apnea, and inability to walk. He presented via EMS for acute onset of generalized weakness the morning of 08/10. He reports being so weak that he could barely sit up in bed. Patient took all of his regular morning medications this morning. No recent change in medications. He manages his own medications at home, along with his . No recent falls, injuries, or trauma. Patient is in a wheel chair at baseline, as his left leg does not work due to a cyst at L1/L2. Patient is currently scheduled to have plastic surgery for his decubitus ulcer on September 05, [id number]. No sick contacts. No supplemental at home oxygen usage. Patient denies smoking, alcohol use, vaping, tobacco use, and recreational drug use. Patient's vitals are stable at time of admission; SpO2 98% on 2L. ED course: Cefepime 2000 mg IV NSS 500 mL IV ROS: Patient endorses MATTA (resolved), back pain (secondary to decubitus ulcer), and numbness/tingling in the left leg (due to cyst on L1/L2) Patient denies fever, chills, nightsweats, dizziness, lightheadedness, cough, hemoptysis, pleuritic CP, chest pain, chest palpitations, SOB, abdominal pain, N/V/D, burning with urination, dysuria, Principal Diagnosis Lobar PNA Discharge Exam The patient is awake, alert and oriented 3, well developed and well nourished, normocephalic and atraumatic, lying in bed and in no acute distress. HEENT--PERRL, EOMI, mucous membranes and oropharynx mildly dry Neck--supple. No JVD. No bruits. Thyroid normal, trachea midline, no adenopathy. Heart--normal S1 and S2. No murmurs, rubs or gallops. Lungs--clear bilaterally, no respiratory distress, no accessory muscle use. Abdomen--normal bowel sounds and soft. Extremities--no cyanosis or clubbing. No edema. Dermatologic--normal skin turgor, normal color, no abnormal lymph nodes, no rash. Neurologic--cranial nerves II through XII grossly intact. Rheumatologic--normal range of motion. Psychiatric--normal affect. Discharge Data Allergies Allergy/AdvReac Type Severity Reaction Status Date / Time tetracycline Allergy Intermediate HIVES Verified 08/10/23 16:56 morphine AdvReac Intermediate Nausea Verified 08/10/23 16:56 Consultations 08/10/23 18:43 ED Decision to Admit Stat 08/11/23 01:46 Consult Nephrology Routine Hospital Course (1) Pneumonia: Patient presents to the hospital with generalized weakness, although wheelchair- bound at baseline On admission, WBC was 14,000 Chest x-ray showed evidence of right midlung airspace consolidation Empirically started on IV antibiotics Patient clinically much improved Cultures negative so far Discharge home on linezolid 600 mg twice daily for 5 more days (2) Generalized weakness: Patient is wheelchair-bound at baseline d/t a cyst at L1/L2 leading to decreased LLE strength Elevated WBC at 14.72 with neutrophil predominance, on admission, some improvement following IV antibiotics BioFire negative CXR revealed cardiomegaly with pulmonary vascular congestion; also noted a patchy airspace consolidation in the right midlung and right lung base which could indicate pulmonary edema or pneumonia UA positive in the setting of neurogenic bladder/Perry; urine culture ordered, pending Hx of decubitus ulcer (stage IV) Unclear source of infection; clinically, patient denies respiratory/urinary symptoms MRSA swab ordered, pending Last wound culture on 07/03/2023 grew Pseudomonas and E. coli; wound culture on 10/03/2022 grew Enterococcus faecalis and MRSA; repeat wound culture ordered, pending Cefepime started in the ED Given history of MRSA from wound culture and unclear source, will switch to linezolid (Zyvox) 600 mg IV BID; hold nortriptyline PT/OT consulted A.m. CBC, BMP (3) ESRD (end stage renal disease) on dialysis: HD on // No BP, labs, IVs in LUE due to port Nephrology consulted for inpatient dialysis Continue sevelamer, Nephrocaps (4) Sacral decubitus ulcer, stage IV: Present on admission Wound culture (as above) Daily wound care Wound care nurse consulted Sacral decubitus ulcer has been ongoing; plastic surgery planned for September 05, 2022 Patient was supposed to have a preop appointment at [facility] on Friday 08/11; may need to reschedule (5) Neuropathic pain: Continue gabapentin Hold nortriptyline (as above) Acetaminophen as needed for pain Oxycodoneacetaminophen q6h as needed for breakthrough pain (6) Elevated troponin: Troponin 40.4-->31.8 on arrival Clinically, patient denies CP, pleuritic CP, SOB Continue telemetry monitoring (7) Anemia of chronic disease: Hgb 9.6 and HCT 29.9 on arrival; chronic; stable Secondary to ESRD (8) Neurogenic bladder: Perry in place (9) Hyperlipidemia: Continue atorvastatin (10) Anxiety: Continue alprazolam as needed (11) Atrial fibrillation: Continue metoprolol, Eliquis (12) Sleep apnea: CPAP HS (13) Wheelchair dependent: Plan Disposition: Patient uses wheelchair at baseline and I spoke to the and she is in agreement that he will be discharged home with [facility] home health upon completion of treatment. Full code Renal dialysis diet VTE PPx: On Eliquis Total Time Total Time Spent Total Time Spent (In Minutes): 35 Discharge Plan Discharge Items Patient Disposition: Home - Home Health Services Reason For Visit: GENERALIZED WEAKNESS Discharge Diagnosis: lobar PNA Activity: Resume your previous activity Non-emergency contact: Primary Care Provider and Communications Advisor Call non-emergency contact if: you have any medication questions Follow-up/Referrals: Jasiel Pineda DO [Primary Care Provider] - 08/20/23 2:45 pm Diet: Dialysis Renal Addtl Attending Provider Instructions: Please make appointment to follow-up with your regular PCP and manager reimbursement. Also follow-up with your [facility] home health agency Pending Studies at Discharge: No Stand-Alone Forms: My [employer], Smoking Cessation Medications and DC Order Prescriptions: New linezolid 600 mg tablet 600 mg PO BID 5 Days Qty: 10 0RF Continued azelastine 0.15 % (205.5 mcg) spray,non-aerosol 1 spray INTNAS HS PRN (Reason: seasonal allergies) Qty: 30 2RF Rx Instructions: administer into each nostril (DME) Power Wheelchair Device See Rx Instructions .Route Qty: 1 0RF Rx Instructions: POWER WHEELCHAIR, DX: R53.1, R26.2 Eliquis 2.5 mg tablet 2.5 mg PO BID Qty: 180 3RF gabapentin 300 mg capsule 600 mg PO HS Qty: 180 5RF Renal Caps 1 mg capsule 1 cap PO QAM Qty: 90 3RF alprazolam 0.25 mg tablet 0.25 mg PO HS PRN (Reason: Anxiety) Qty: 30 0RF oxycodone-acetaminophen [Percocet] 5-325 mg tablet 1 tab PO Q6H PRN (Reason: pain) Qty: 30 0RF atorvastatin [Lipitor] 20 mg tablet 20 mg PO QPM Qty: 90 4RF metoprolol succinate 25 mg tablet extended release 24 hr 25 mg PO QAM Qty: 90 3RF cholecalciferol (vitamin D3) [Vitamin D3] 50 mcg (2,000 unit) Tablet 50 mcg PO QPM sevelamer carbonate 800 mg tablet See Rx Instructions .ROUTE .COMPLEX Rx Instructions: TAKES 800 MG WITH BREAKFAST & LUNCH, THEN 1,600 MG WITH SUPPER. acetaminophen [Tylenol Extra Strength] 500 mg Tablet 1,000 mg PO DIRECTED PRN (Reason: Pain) No Action nortriptyline [Pamelor] 25 mg capsule 25 mg PO HS Qty: 90 3RF Discharge Orders: Discharge Order (Routine); Ordered 08/14/23 Ordered By: Maria De Jesus Alford Admission Data Admit Date/Time: 08/10/23 20:06 Attending Provider: Maria De Jesus Alford Admit Provider: Jaden Hay Primary Care Provider: Jasiel Pineda Other Providers: Jaden Hay; Cheyanne Cano; [facility],Home Healthcare Other Interventions: Discharge Summary Assessment (RN) Last Done: 08/14/23 08:35 Coding Level of Care Code 85920 INP/OBS DISCH >30 MIN Diagnoses Pneumonia J18.9 Laterality: right Lung location: middle lobe of lung Pneumonia type: due to unspecified organism Generalized weakness R53.1 ESRD (end stage renal disease) on dialysis N18.6; Z99.2 Sacral decubitus ulcer, stage IV L89.154 Neuropathic pain M79.2 Elevated troponin R79.89 Anemia of chronic disease D63.8 Neurogenic bladder N31.9 Hyperlipidemia E78.5 Anxiety F41.9 Permanent atrial fibrillation I48.2 Atrial fibrillation type: permanent Sleep apnea G47.30 Wheelchair dependent Z99.3 Time Spent (min) 35
== END 2023-08-14 10:10 | disposition home health service (06) | DRG 193 ==
LOC: ED 14:55 → SUATTDRO 20:06 → 2W 20:06

== ENCOUNTER 2023-09-23 23:09 | Inpatient (IN) ==
--- NOTE | 2023-09-23 23:25 | Emergency Department Note ---
Impression & Plan Acute hypoxemic respiratory failure, Pneumonia, CKD (chronic kidney disease) ED Provider Note ED Provider Note NAME: JENNIFER STAPLETON AGE:78 SEX: Male : 1945 ARRIVES VIA: EMS INFORMANT: Patient, EMS ED PROVIDER(s): Sadia Welch DO CHIEF COMPLAINT: Respiratory distress HPI: This is a 78-year-old male who presents emergency department via EMS due to acute respiratory distress. Patient states he felt well earlier in the day and this evening suddenly began to feel more short of breath, began to cough, and then heard rales when he would breeze. He states he continued to have increased difficulty breathing and his called EMS. EMS states on arrival patient with significant increased work of breathing, audible Rales, and they had difficulty obtaining an accurate pulse ox as his hands and fingers were cold and slightly cyanotic. Patient placed on a nonrebreather en route and given 2 doses of nitro. He was then transition to CPAP. On initial nonrebreather at 15 L he came up to around 88%, after CPAP was placed he improved to 90% and his work of breathing decreased. 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 Paul. He states no recent change in medication or recent illness. He denies fevers, chills, accompanying chest pain or tightness, abdominal pain, or vomiting. Patient has an indwelling Perry catheter and does still produce urine. Patient also has an ostomy. Patient has a history of atrial fibrillation additionally. Patient placed on BiPAP by RT on arrival here. PAST MEDICAL HISTORY:See Below PAST SURGICAL HISTORY:See Below FAMILY HISTORY:See Below SOCIAL HISTORY:See Below HOME MEDICATIONS:See Below ALLERGIES:See Below VITALS:See Below PHYSICAL EXAMINATION: GENERAL: alert, ill appearing, well nourished, moderate distress, non-toxic EYE EXAM: normal conjunctiva, PERRL and EOM's grossly intact OROPHARYNX: no exudate, no erythema, lips, buccal mucosa, and tongue normal and mucous membranes are dry NECK: supple, no nuchal rigidity, no adenopathy, non-tender LUNGS: Clear to auscultation. Normal chest wall mechanics, no wheezes or rhonchi, bilateral Rales noted throughout, worse in the bases, mild tachypnea and increased work of breathing HEART: no murmurs, S1 normal and S2 normal ABDOMEN: abdomen soft, non-tender, normo-active bowel sounds, no masses, no rebound or guarding. Ostomy noted left mid abdomen. SKIN: no rashes, petechiae, orbruising UPPER EXTREMITIES: upper extremities are grossly normal. FROM, nml pulses b/l. LOWER EXTREMITIES: No pitting edema. FROM, nml pulses b/l. NEURO EXAM: Normal sensorium, cranial nerves II-XII grossly intact, normal speech, no facial droop,nogross weakness of arms, no gross weakness of legs. Gross sensation intact. No ataxia. Vital Signs: reviewed and remarkable Differential Diagnosis: pneumonia, bronchitis, COPD/Asthma exacerbation, pneumothorax, pulmonary embolism, congestive heart failure, acute coronary syndrome, as well as others were considered MEDICAL DECISION MAKING: This is a 78-year-old male with significant past medical history who presents with acute hypoxic respiratory failure. Initial description of EMS suggestive of possible acute pulmonary edema. Patient transition from EMS CPAP to our BiPAP with improvement in his symptoms. Patient's other vital signs stable. Labs drawn and sent, IV established, EKG and chest x-ray performed bedside interpreted by me and patient monitored on telemetry. Patient noted to be in A- fib which she does have a history of, patient is anticoagulated. Patient's chest x-ray concerning for pneumonia, and worsened appearance compared to prior chest x-ray when patient was admitted for pneumonia in July. Blood cultures, procalcitonin, lactic acid after additional discussion with regarding recent evaluation and treatment for a sacral decubitus ulcer and finding of osteomyelitis. IV vancomycin and IV meropenem were ordered after discussion with pharmacist. Patient slowly able to be titrated off of BiPAP here and maintained on oxygen via nasal cannula. Patient was initially given 40 mg of Lasix by me. After discussion with nephrology, they recommended an additional 120 mg of Lasix to help shift any additional fluid until patient can be dialyzed later on this morning given the initial presentation. Patient's blood pressure continued to improve as his work of breathing decreased throughout his stay here. He was not given any additional nitro or other antihypertensive agents. Patient and family updated multiple times at bedside on results and plan. Case discussed with [facility] Hospitalist team for additional evaluation and management. Consultation(s): 0040: Discussed with Dr. Hassan. Recommends additional lasix 120 mg. 0120: Discussed with Dr. Hay, [facility] hospitalist team, for additional evaluation and management. ER Treatment Provided: See below Diagnostics Interpreted By Me: -ECG: Atrial fibrillation at 103, leftward axis, nml QRS, prolonged QTc, nonspecific ST/T wave changes -Cardiac Monitoring: An order was placed for continuous cardiac monitoring. The monitor shows a rate of 98 with a.fib rhythm. -Laboratory studies: As stated above and show below. -Imaging studies: X-ray Chest: A single view study of the chest was reviewed and was negative for effusion, pulmonary edema, or wide mediastinum. Right sided infiltrate noted. Triage Nursing Note Reviewed Prior/Outside Records Reviewed -discharge summary from July 2023 reviewed Critical Care: Critical care of 43 min performed to assess and manage high likelihood of life- threatening acute hypoxic respiratory failure, involving labs and imaging performed with assessment to evaluate acute hypoxic respiratory failure diagnosis with frequent reassessment. This time includes bedside time, treatment discussions with patient/family/consultants, documentation time and excludes procedure time. Past Med/Surg History Medical History Anemia of chronic disease Encounter for pre-operative examination Wheelchair dependent Lobar pneumonia 08/2022 treated at [facility] inpatient. no current issues AV fistula LEFT History of blood transfusion 12/19/21 per pt ESRD (end stage renal disease) on dialysis [facility] in [place] Fri-Fri-Fri Neuropathic pain Sacral decubitus ulcer, stage IV "stable to improved" per [place] [facility] 2X PER WEEK. patient's changes dressing as instructed at home. 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 Shrestha at [facility]>WC BOUND FOR 3 YEARS D/T CYSTS. inhibiting patient to ambulate. 04/25/23: awaiting for surgery to remove the spinal cyst but will need his ulcer wound repaired and healed fully first --> reason for upcoming colostomy. Anemia due to chronic kidney disease History of CHF (congestive heart failure) Impotence, organic Anxiety Sleep apnea CPAP PTSD (post-traumatic stress disorder) POST AORTIC DISSECTION Neurogenic bladder Self Catheterization since Aortic repair 4-5X PER DAY Lumbar spinal stenosis Hypertension Hyperlipidemia Atrial fibrillation Follows with [facility] cardiology (Dr. Jarvis) On Eliquis Abdominal aortic aneurysm (~2014) S/p Type A dissection with emergent repair in 2014 - Follows with vascular - last seen 11/2022- AAA 3.3cm, iliac artery aneursym (right 2.0cm and left 3.0 cm)- all stable in size; chronic thoracic aortic dissection- stable- vascular recommended repeating imaging May 2024 Surgical History History of removal of tunneled central venous catheter (CVC) with port removal of perm cath 05/[address] Marroquin S/P arteriovenous (AV) fistula creation left S/P debridement (02/08/22) Sacral Wound Debridment, Sacral bone biopsy(Not Applicable) - Jose Le, S/P debridement (06/27/21) Excisional Debridement Sacral Decubitus Ulcer down to muscle level 4cm x 6cm - Ranjeet Myers DO 06/27/2021 Excisional Debridement of Sacral Decubitus Ulcer Down to Bone, 11cm x 10cm(Not Applicable) - Ranjeet Myers DO 07/25/2021: MAC 3, ETT 7.5. History of revision of total hip arthroplasty History of arthroplasty of left hip S/P total right hip arthroplasty History of cardioversion mult>FOLLOWS WITH DR. JARVIS History of lumbar fusion History of bladder surgery History of transurethral resection of prostate Nausea and vomiting after administration of anesthetic agent History of arthroscopy RT KNEE History of open reduction and internal fixation (ORIF) procedure RT WRIST History of total knee replacement RT History of esophagogastroduodenoscopy (EGD) History of colonoscopy History of tooth extraction History of rhinoplasty History of cataract surgery RT/LEFT 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 History of gastric bypass 2010 History of cardiac catheterization 2003 - no stents - [facility] in [place] Family History Grandmother Family history of diabetes mellitus Mother Gallbladder disease Father Prostate cancer Myocardial infarction Hypertension Other Family history non-contributory No family history of adverse response to anesthesia Denies family history of Ovarian cancer Breast cancer Colorectal cancer Social History Smoking Status: Never smoker Second Hand Exposure: No; Do You Dip or Chew Tobacco: No; Hx Alcohol Use: No Hx Substance Use: No Preferred Language: Setswana Communication Ability: Effective Visual Impairment: Limited Hearing Ability: Normal Classification Officer Required: No Beliefs That Will Affect Care: None marital status: Current Living Situation: Spouse Current Living Situation Comment: Lives with at home current occupational status: retired How many Children do You have: 1 Feels Safe at Home: Yes Childhood Exposure to Second-Hand Smoke: Yes (father did ) Diet: regular Diet Comment: low sugar, low phospate caffeine: Yes (tea) during the past year weight has: remained stable Dental Care, Regularly: Yes Physical Activity Frequency: Does not Exercise Physical Activity Frequency Comment: goes to PT twice a week Seatbelt Use: always Sunscreen Use: Yes Do you think of yourself as: straight/heterosexual Gender Identity: Male Assistive Devices: Bedside Commode, CPAP, Hospital Bed, Walker, Wheelchair and Other Allergies Allergies Allergy/AdvReac Type Severity Reaction Status Date / Time tetracycline Allergy Intermediate HIVES Verified 09/23/23 23:35 morphine AdvReac Intermediate Nausea Verified 09/23/23 23:35 Home Meds Home Medications Medication Instructions Recorded Confirmed cholecalciferol (vitamin D3) 50 50 mcg PO QPM 12/31/19 09/23/23 mcg (2,000 unit) tablet (Vitamin D3) sevelamer carbonate 800 mg tablet See Rx Instructions .Route .COMPLEX 09/20/22 09/23/23 Previous Rx's Medication Instructions Recorded Wheelchair (Powered) (Power #1 ea 01/04/22 Wheelchair) metoprolol succinate 25 mg 25 mg PO QAM #90 tabs 09/10/22 tablet,extended release 24 hr apixaban 2.5 mg tablet (Eliquis) 2.5 mg PO BID #180 tabs 01/09/23 gabapentin 300 mg capsule 600 mg (2 x 300 mg) PO HS #180 caps 02/10/23 vitamin B complex and vitamin C 1 cap PO QAM #90 caps 07/09/23 no.20-folic acid 1 mg capsule (Renal Caps) alprazolam 0.25 mg tablet 0.25 mg PO HS PRN Anxiety #30 tabs 07/23/23 nortriptyline 25 mg capsule 25 mg PO HS #90 caps 08/14/23 (Pamelor) oxycodone-acetaminophen 5 mg-325 1 tab PO Q6H PRN pain #30 tabs 08/29/23 mg tablet (Percocet) atorvastatin 20 mg tablet (Lipitor) 20 mg PO QPM #90 tabs 09/10/23 Results & Data (ED) Vital Signs Vital Signs - 24 hr 09/23/23 23:04 09/23/23 23:04 09/23/23 23:16 Temperature 37.7 C H Temperature Source Oral Pulse Rate 94 H 105 H Pulse Rate from SpO2 Sensor Respiratory Rate 24 28 H Respiratory Effort / Characteristics Spontaneous Respiratory Depth Deep Deep Respiratory Pattern Tachypnea Blood Pressure 162/110 H Blood Pressure Mean 127 Pulse Oximetry 96 96 Oxygen Delivery Method CPAP BiPAP Oxygen Flow Rate Fraction of Inspired Oxygen 100 Sepsis Recent Fever Within 48 Hours No Sepsis New/Unexplained Change in Mental Status No Sepsis Action Taken by Nursing No Action Required 09/23/23 23:16 09/23/23 23:18 09/23/23 23:20 Temperature Temperature Source Pulse Rate 95 H 95 H Pulse Rate from SpO2 Sensor 105 H 99 H Respiratory Rate 13 Respiratory Effort / Characteristics Respiratory Depth Respiratory Pattern Blood Pressure 162/110 H Blood Pressure Mean 127 Pulse Oximetry 91 95 Oxygen Delivery Method BiPAP Oxygen Flow Rate Fraction of Inspired Oxygen Sepsis Recent Fever Within 48 Hours Sepsis New/Unexplained Change in Mental Status Sepsis Action Taken by Nursing 09/23/23 23:30 09/23/23 23:31 09/23/23 23:31 Temperature Temperature Source Pulse Rate 86 95 H Pulse Rate from SpO2 Sensor 85 Respiratory Rate 15 19 Respiratory Effort / Characteristics Respiratory Depth Respiratory Pattern Blood Pressure 170/103 H Blood Pressure Mean 112 Pulse Oximetry 95 100 Oxygen Delivery Method Oxygen Flow Rate Fraction of Inspired Oxygen Sepsis Recent Fever Within 48 Hours Sepsis New/Unexplained Change in Mental Status Sepsis Action Taken by Nursing 09/24/23 00:00 09/24/23 00:10 09/24/23 00:20 Temperature Temperature Source Pulse Rate 94 H 96 H 89 Pulse Rate from SpO2 Sensor 92 H 100 H 89 Respiratory Rate 20 22 19 Respiratory Effort / Characteristics Respiratory Depth Respiratory Pattern Blood Pressure Blood Pressure Mean Pulse Oximetry 100 100 100 Oxygen Delivery Method Oxygen Flow Rate Fraction of Inspired Oxygen Sepsis Recent Fever Within 48 Hours Sepsis New/Unexplained Change in Mental Status Sepsis Action Taken by Nursing 09/24/23 00:25 09/24/23 00:26 09/24/23 00:30 Temperature 37.4 C Temperature Source Oral Pulse Rate 107 H 101 H Pulse Rate from SpO2 Sensor 99 H 101 H Respiratory Rate 17 18 Respiratory Effort / Characteristics Respiratory Depth Respiratory Pattern Blood Pressure 138/94 126/88 Blood Pressure Mean 108 100 Pulse Oximetry 100 100 Oxygen Delivery Method BiPAP Oxygen Flow Rate Fraction of Inspired Oxygen Sepsis Recent Fever Within 48 Hours Sepsis New/Unexplained Change in Mental Status Sepsis Action Taken by Nursing 09/24/23 00:30 09/24/23 00:40 09/24/23 00:56 Temperature Temperature Source Pulse Rate 96 H Pulse Rate from SpO2 Sensor 99 H 104 H Respiratory Rate 19 Respiratory Effort / Characteristics Respiratory Depth Respiratory Pattern Blood Pressure Blood Pressure Mean Pulse Oximetry 100 100 100 Oxygen Delivery Method Oxygen Flow Rate Fraction of Inspired Oxygen 70 Sepsis Recent Fever Within 48 Hours Sepsis New/Unexplained Change in Mental Status Sepsis Action Taken by Nursing 09/24/23 01:00 09/24/23 01:10 Temperature Temperature Source Pulse Rate 103 H 98 H Pulse Rate from SpO2 Sensor 98 H 103 H Respiratory Rate 18 10 L Respiratory Effort / Characteristics Respiratory Depth Respiratory Pattern Blood Pressure 118/67 Blood Pressure Mean 84 Pulse Oximetry 100 100 Oxygen Delivery Method Nasal Cannula Oxygen Flow Rate 4 Fraction of Inspired Oxygen Sepsis Recent Fever Within 48 Hours Sepsis New/Unexplained Change in Mental Status Sepsis Action Taken by Nursing Laboratory Data 09/23/23 23:22 09/23/23 23:22 Lab Results 09/23/23 09/23/23 Range/Units 23:22 23:27 WBC 8.76 (4.8-10.8) K/ul RBC 3.04 L (4.70-6.10) M/uL Hgb 10.0 L (14.0-18.0) g/dl Hct 31.6 L (42.0-52.0) % MCV 103.9 H (80.0-100.0) fL MCH 32.9 (25.0-34.0) pg MCHC 31.6 L (32.0-36.0) g/dL RDW Std Deviation 64.5 H (36.4-46.3) fL RDW Coeff of Hector 17.1 H (11.5-14.5) % Plt Count 189 (130-400) K/uL MPV 8.6 L (9.4-12.4) fL Immature Gran % (Auto) 0.1 % Neut % (Auto) 82.0 % Lymph % (Auto) 9.9 % Hamlin % (Auto) 4.6 % Eos % (Auto) 2.9 % Baso % (Auto) 0.5 % Neut # (Auto) 7.19 H (1.40-6.50) K/uL Lymph # (Auto) 0.87 L (1.20-3.40) K/uL Hamlin # (Auto) 0.40 (0.11-0.59) K/uL Eos # (Auto) 0.25 (0.00-0.50) K/uL Baso # (Auto) 0.04 (0.00-0.20) K/uL Immature Gran # (Auto) 0.01 (0.01-0.20) K/uL Sodium 134 L (136-145) mmol/L Potassium 4.1 (3.5-5.1) mmol/L Chloride 94 L (98-107) mmol/L Carbon Dioxide 29 (21-32) mmol/L Anion Gap 11 (3-11) BUN 53 H (6-23) mg/dl Creatinine 4.30 H (0.6-1.4) mg/dl Est Cr Clr Drug Dosing 15.8 ml/min Est GFR ( Amer) 14.4 ml/min Est GFR (Non-Af Amer) 12.4 ml/min BUN/Creatinine Ratio 12.3 (10-20) Glucose 85 (70-99(Fasting)) mg/dl Lactate 2.0 (0.4-2.0) mmol/L Calcium 9.0 (8.6-10.3) mg/dl Phosphorus 5.0 H (2.5-4.9) mg/dl Magnesium 2.3 (1.7-2.4) mg/dl Total Bilirubin 0.6 (0.2-1.0) mg/dl AST 25 (13-39) U/L ALT 25 (7-52) U/L Alkaline Phosphatase 122 H (34-104) U/L Total Protein 6.9 (6.0-8.3) gm/dl Albumin 4.1 (3.4-5.0) gm/dl Globulin 2.8 (2.5-4.0) gm/dl Albumin/Globulin Ratio 1.5 (0.9-2) Lipase 58 (11-82) U/L Procalcitonin 0.47 (0-0.5) ng/ml Adenovirus (PCR) Not Detected (NotDetected) B. pertussis DNA (PCR) Not Detected (NotDetected) B.parapertussis DNA PCR Not Detected (NotDetected) C. pneumoniae DNA (PCR) Not Detected (NotDetected) Coronavirus OC43 (PCR) Not Detected (NotDetected) Coronavirus HKU1 (PCR) Not Detected (NotDetected) Coronavirus 229E (PCR) Not Detected (NotDetected) SARS-CoV-2 (PCR) Not Detected (NotDetected) Coronavirus NL63 (PCR) Not Detected (NotDetected) Human Metapneumovir PCR Not Detected (NotDetected) Influenza Type A (PCR) Not Detected (NotDetected) Influenza Type B (PCR) Not Detected (NotDetected) M. pneumoniae (PCR) Not Detected (NotDetected) Parainfluenza 1 (PCR) Not Detected (NotDetected) Parainfluenza 2 (PCR) Not Detected (NotDetected) Parainfluenza 3 (PCR) Not Detected (NotDetected) Parainfluenza 4 (PCR) Not Detected (NotDetected) RSV (PCR) Not Detected (NotDetected) Entero/Rhino (PCR) Not Detected (NotDetected) Administered Medications Oxycodone/Acetaminophen (Oxycodone/Acetaminophen 5mg/325mg Tab) 1 tab PO Q6H PRN PRN Reason: pain Stop: 10/08/23 02:23 Last Admin: 09/24/23 04:21 Dose: 1 tab Documented By: KLS Discontinued Medications Furosemide (Furosemide 40 Mg/4 Ml Vial) 40 mg IV ONE ONE Stop: 09/23/23 23:21 Last Admin: 09/23/23 23:36 Dose: 40 mg Documented By: Furosemide (Furosemide 40 Mg/4 Ml Vial) 120 mg IV ONE ONE Stop: 09/24/23 00:43 Last Admin: 09/24/23 01:50 Dose: 120 mg Documented By: Acetaminophen (Ofirmev) 1,000 mg in 100 mls @ 400 mls/hr IV NOW STA Stop: 09/24/23 00:04 Last Infusion: 09/24/23 00:17 Dose: Infused Documented By: Admin: 09/23/23 23:56 Dose: 400 mls/hr Documented By: Vancomycin HCl 1,750 mg/ (Sodium Chloride) 535 mls @ 200 mls/hr IV NOW ONE Stop: 09/24/23 02:39 Last Infusion: 09/24/23 04:09 Dose: Infused Documented By: Admin: 09/24/23 01:12 Dose: 200 mls/hr Documented By: Meropenem 500 mg/ Syringe 10 mls @ 2 mls/min IV NOW STA; Protocol Stop: 09/24/23 00:03 Last Admin: 09/24/23 01:11 Dose: 2 mls/min Documented By: Imaging Data Radiologist's Impression: Chest CT 09/24/23 00:35 Exam(s): CT CHEST Without Contrast EXAM: CT Chest Without Intravenous Contrast CLINICAL HISTORY: acute resp failure/pna. TECHNIQUE: Axial computed tomography images of the chest without intravenous contrast. CTDI is 16.09 mGy and DLP is 588.85 mGy-cm. Automated exposure control was utilized for the study. A dose lowering technique was utilized adhering to the principles of ALARA. COMPARISON: CT chest without contrast dated 08/15/2023 FINDINGS: Lungs: Patchy confluent airspace opacities noted in the posterior right upper lobe and, less prominently involving the left lower lobe. Pleural space: Small volume bilateral pleural effusions, right greater than left, with the left effusion measuring approximately 1 cm in thickness. No loculation. No pneumothorax. Heart: Prominent cardiomegaly. Stable coronary artery calcification. No pericardial effusion. Bones/joints: Unremarkable. No acute fracture. No dislocation. Soft tissues: Unremarkable. Vasculature: Stable postsurgical changes consistent with surgical repair of the ascending aorta. No thoracic aortic aneurysm. Lymph nodes: Nonspecific subcentimeter paratracheal lymph nodes without significant lymphadenopathy. IMPRESSION: 1. Patchy confluent airspace opacities noted in the posterior right upper lobe and, less prominently involving the left lower lobe. Findings are consistent with multifocal pneumonia. 2. Small volume bilateral pleural effusions, right greater than left, with the left effusion measuring approximately 1 cm in thickness. No loculation. Electronically signed by: Jose Michael MD 09/24/23 01:26 AM Discharge Plan Visit Data Chief Complaint: Respiratory Distress Stated Complaint: RESPIRATORY DISTRESS ED Provider: Sadia Welch Discharge Problem: Acute hypoxemic respiratory failure, Pneumonia, CKD (chronic kidney disease) Patient Disposition: Being Evaluated by Hospitalist Discharge Instructions Interventions: ED Discharge Assessment Last Done: 09/24/23 02:24
[2023-09-23] MEDS: FUROSEMIDE 40 MG/4 ML VIAL IV ONE (23:36)
[2023-09-23] MEDS: ACETAMINOPHEN 1,000 MG/100 ML VIAL IV STA (23:56)
[2023-09-23] MEDS ORDERED: VANCOMYCIN CONSULT ACTIVE PRN (23:59)
[2023-09-24 00:07] LABS: Basophils # (auto) 0.04 K/uL (0.00-0.20); Basophils % (auto) 0.5 %; Eosinophils # (auto) 0.25 K/uL (0.00-0.50); Eosinophils % (auto) 2.9 %; Hematocrit (blood only) 31.6 % (42.0-52.0); Immature Granulocytes # (auto) 0.01 K/uL (0.01-0.20); Immature Granulocytes % (auto) 0.1 %; Lymphocytes # (auto) 0.87 K/uL (1.20-3.40); Lymphocytes % (auto) 9.9 %; Mean Corpuscular Hemoglobin 32.9 pg (25.0-34.0); Mean Corpuscular Hgb Conc 31.6 g/dL (32.0-36.0); Mean Corpuscular Volume 103.9 fL (80.0-100.0); Mean Platelet Volume 8.6 fL (9.4-12.4); Monocytes % (auto) 4.6 %; Neutrophils # (auto) 7.19 K/uL (1.40-6.50); Platelet Count 189 K/uL (130-400); RDW Coefficient of Variation 17.1 % (11.5-14.5); RDW Standard Deviation 64.5 fL (36.4-46.3); Red Blood Count 3.04 M/uL (4.70-6.10); White Blood Count 8.76 K/ul (4.8-10.8)
[2023-09-24 00:24] LABS: Albumin Globulin Ratio 1.5 (0.9-2); Albumin Level 4.1 gm/dl (3.4-5.0); BUN Creatinine Ratio 12.3 (10-20); Bilirubin,Total 0.6 mg/dl (0.2-1.0); Creatinine Clr Calc Pharmacy 15.8 ml/min; Est GFR (African American) 14.4 ml/min; Est GFR (Non-African American) 12.4 ml/min; Globulin 2.8 gm/dl (2.5-4.0); Magnesium 2.3 mg/dl (1.7-2.4); Potassium 4.1 mmol/L (3.5-5.1); Total Protein 6.9 gm/dl (6.0-8.3)
[2023-09-24 00:35] LABS: Adenovirus PCR Not Detected (NotDetected); Bordetella parapertussis PCR Not Detected (NotDetected); Bordetella pertussis PCR Not Detected (NotDetected); Chlamydia pneumoniae PCR Not Detected (NotDetected); Coronavirus 229E PCR Not Detected (NotDetected); Coronavirus CoV-2 (COVID19)PCR Not Detected (NotDetected); Coronavirus HKU1 PCR Not Detected (NotDetected); Coronavirus NL63 PCR Not Detected (NotDetected); Coronavirus OC43PCR Not Detected (NotDetected); Human Metapneumovirus PCR Not Detected (NotDetected); Influenza A PCR Not Detected (NotDetected); Influenza B PCR Not Detected (NotDetected); Mycoplasma pneumoniae PCR Not Detected (NotDetected); Parainfluenza Virus 1 PCR Not Detected (NotDetected); Parainfluenza Virus 2 PCR Not Detected (NotDetected); Parainfluenza Virus 3 PCR Not Detected (NotDetected); Parainfluenza Virus 4 PCR Not Detected (NotDetected); Respiratory Syncytial VirusPCR Not Detected (NotDetected); Rhinovirus/Enterovirus PCR Not Detected (NotDetected)
--- NOTE | 2023-09-24 01:00 | History & Physical Report ---
Date of Service September 24, 2023 Assessment & Plan (1) Acute hypoxemic respiratory failure: Plan: Acute Hypoxic Respiratory Failure in the Setting of Pneumonia - CXR/CT Chest demonstrated multifocal pneumonia - Started on Vancomycin and Meropenem in the ED; plan to continue in the setting on concurrent sacral wound - Currently stable on 4L NC; wean as tolerated ESRD (end stage renal disease) on dialysis: HD on // Nephrology consulted for inpatient dialysis Continue sevelamer With sudden onset of symptoms and history of ESRD concern for pulmonary edema and was given IV Lasix in the ED; imaging noted small B/L pleural effusions- No indication for emergent dialysis tonight Sacral Ulcer Consult wound nurse Daily wound care Per ID Report from 09/16- was supposed started on vancomycin, meropenem for 6 weeks duration. Had not started yet. - 1g q24H meropenem (after HD on dialysis days) - vancomycin to maintain AUC 400-600 Antibiotic Management as per above Neuropathic pain: Continue gabapentin, nortriptyline Oxycodoneacetaminophen q6h as needed for breakthrough pain Anemia of chronic disease: Hgb 10.0; chronic; stable Secondary to ESRD Neurogenic bladder: Perry in place Hyperlipidemia: Continue atorvastatin Anxiety: Continue alprazolam as needed Atrial fibrillation: Continue metoprolol, Eliquis (2) Pneumonia: (3) ESRD (end stage renal disease) on dialysis: (4) Hypoxia: (5) Anemia of chronic disease: History of Present Illness Primary Care Provider: Jasiel Pineda, 78 year old male with a past medical history of ESRD on HD //, anxiety, atrial fibrillation, HTN, sacral decubitus ulcer (stage IV), neurogenic bladder, sleep apnea, s/p sigmoid colostomy placement presenting to the ED for acute onset dyspnea. and son are in the room with him. States that he became acutely short of breath this evening. This prompted his to call EMS. Pt was put on non-rebreather by EMS and then transitioned to CPAP. Upon presentation to ED he was transitioned to BiPAP. Follows with Dr. Paul, has not missed any dialysis sessions. Denies fever, chills, chest pain. When I saw him he was off BiPAP, on 4L NC. States his dyspnea has improved significantly. Allergies Allergy/AdvReac Type Severity Reaction Status Date / Time tetracycline Allergy Intermediate HIVES Verified 09/23/23 23:35 morphine AdvReac Intermediate Nausea Verified 09/23/23 23:35 Home Medications Medication Instructions Recorded Confirmed Type cholecalciferol (vitamin D3) 50 50 mcg PO QPM 12/31/19 09/23/23 History mcg (2,000 unit) tablet (Vitamin D3) Wheelchair (Powered) (Power #1 ea 01/04/22 09/23/23 Rx Wheelchair) metoprolol succinate 25 mg 25 mg PO QAM #90 tabs 09/10/22 09/23/23 Rx tablet,extended release 24 hr sevelamer carbonate 800 mg tablet See Rx Instructions .Route .COMPLEX 09/20/22 09/23/23 History apixaban 2.5 mg tablet (Eliquis) 2.5 mg PO BID #180 tabs 01/09/23 09/23/23 Rx gabapentin 300 mg capsule 600 mg (2 x 300 mg) PO HS #180 caps 02/10/23 09/23/23 Rx vitamin B complex and vitamin C 1 cap PO QAM #90 caps 07/09/23 09/23/23 Rx no.20-folic acid 1 mg capsule (Renal Caps) alprazolam 0.25 mg tablet 0.25 mg PO HS PRN Anxiety #30 tabs 07/23/23 09/23/23 Rx nortriptyline 25 mg capsule 25 mg PO HS #90 caps 08/14/23 09/23/23 Rx (Pamelor) oxycodone-acetaminophen 5 mg-325 1 tab PO Q6H PRN pain #30 tabs 08/29/23 09/23/23 Rx mg tablet (Percocet) atorvastatin 20 mg tablet (Lipitor) 20 mg PO QPM #90 tabs 09/10/23 09/23/23 Rx Past Med/Surg History Medical History Anemia of chronic disease Encounter for pre-operative examination Wheelchair dependent Lobar pneumonia 08/2022 treated at [facility] inpatient. no current issues AV fistula LEFT History of blood transfusion 12/19/21 per pt ESRD (end stage renal disease) on dialysis [facility] in [place] Mon-Fri-Fri Neuropathic pain Sacral decubitus ulcer, stage IV "stable to improved" per [place] wound clinic>[facility] AND [facility] HOME NURSING 2X PER WEEK. patient's changes dressing as instructed at home. 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 Shrestha at [facility] [place]>WC BOUND FOR 3 YEARS D/T CYSTS. inhibiting patient to ambulate. 04/25/23: awaiting for surgery to remove the spinal cyst but will need his ulcer wound repaired and healed fully first --> reason for upcoming colostomy. Anemia due to chronic kidney disease History of CHF (congestive heart failure) Impotence, organic Anxiety Sleep apnea CPAP PTSD (post-traumatic stress disorder) POST AORTIC DISSECTION Neurogenic bladder Self Catheterization since Aortic repair 4-5X PER DAY Lumbar spinal stenosis Hypertension Hyperlipidemia Atrial fibrillation Follows with [facility] cardiology (Dr. Jarvis) On Eliquis Abdominal aortic aneurysm (~2014) S/p Type A dissection with emergent repair in 2014 - Follows with vascular - last seen 11/2022- AAA 3.3cm, iliac artery aneursym (right 2.0cm and left 3.0 cm)- all stable in size; chronic thoracic aortic dissection- stable- vascular recommended repeating imaging May 2024 Surgical History History of removal of tunneled central venous catheter (CVC) with port removal of perm cath 05/[address] Marroquin S/P arteriovenous (AV) fistula creation left S/P debridement (02/08/22) Sacral Wound Debridment, Sacral bone biopsy(Not Applicable) - Jose Le DO S/P debridement (06/27/21) Excisional Debridement Sacral Decubitus Ulcer down to muscle level 4cm x 6cm - Ranjeet Myers DO 06/27/2021 Excisional Debridement of Sacral Decubitus Ulcer Down to Bone, 11cm x 10cm(Not Applicable) - Ranjeet Myers DO 07/25/2021: MAC 3, ETT 7.5. History of revision of total hip arthroplasty History of arthroplasty of left hip S/P total right hip arthroplasty History of cardioversion mult>FOLLOWS WITH DR. JARVIS History of lumbar fusion History of bladder surgery History of transurethral resection of prostate Nausea and vomiting after administration of anesthetic agent History of arthroscopy RT KNEE History of open reduction and internal fixation (ORIF) procedure RT WRIST History of total knee replacement RT History of esophagogastroduodenoscopy (EGD) History of colonoscopy History of tooth extraction History of rhinoplasty History of cataract surgery RT/LEFT 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 2015 Did have thoracic bleeding post op- required re exploration approx 1 week after initial presentation- had ARF, spinal cord ischemia resulting in paraplegia, neurogenic bladder and neurogenic bowel. History of gastric bypass 2010 History of cardiac catheterization 2004 - no stents - [facility] in [place] Family History Grandmother Family history of diabetes mellitus Mother Gallbladder disease Father Prostate cancer Myocardial infarction Hypertension Other Family history non-contributory No family history of adverse response to anesthesia Denies family history of Ovarian cancer Breast cancer Colorectal cancer Social History Smoking Status: Never smoker Second Hand Exposure: No; Do You Dip or Chew Tobacco: No; Tobacco Cessation Education Requested by Patient: No Hx Alcohol Use: No Hx Substance Use: No Preferred Language: Chinese Communication Ability: Effective Visual Impairment: Limited Hearing Ability: Normal Primary Care Pediatrician Required: No Beliefs That Will Affect Care: None marital status: Current Living Situation: Spouse Current Living Situation Comment: Lives with at home current occupational status: retired How many Children do You have: 1 Feels Safe at Home: Yes Safety Concerns: Feels Safe At This Time Childhood Exposure to Second-Hand Smoke: Yes (father did ) Diet: regular Diet Comment: low sugar, low phospate caffeine: Yes (tea) during the past year weight has: remained stable Dental Care, Regularly: Yes Physical Activity Frequency: Does not Exercise Physical Activity Frequency Comment: goes to PT twice a week Seatbelt Use: always Sunscreen Use: Yes Do you think of yourself as: straight/heterosexual Gender Identity: Male Assistive Devices: Wheelchair Review of Systems Review of Systems: As per above Physical Exam Physical Exam: Constitutional: well-appearing, no acute distress HEENT: NCAT, no conjunctival injection CV: regular rhythm, no murmur appreciated, extremities well-perfused, trace LE edema Resp: CTABL, +rales B/L in bases, no increased work of breathing GI: soft, nondistended, nontender, + ostomy MSK: no gross deformities appreciated Skin: warm, dry, no rash appreciated Neuro: alert, oriented, no focal neurologic deficit appreciated Results & Data Results & Data Vital Signs (Past 12 Hours) Vital Signs Temp Pulse Resp BP Pulse Ox O2 Del Method FiO2 09/24/23 00:30 100 70 09/24/23 00:30 101 H 18 126/88 100 BiPAP 09/24/23 00:26 37.4 C 09/24/23 00:25 107 H 17 138/94 100 09/24/23 00:20 89 19 100 09/24/23 00:10 96 H 22 100 09/24/23 00:00 94 H 20 100 09/23/23 23:31 95 H 19 100 09/23/23 23:31 170/103 H 09/23/23 23:30 86 15 95 09/23/23 23:20 95 H 13 95 09/23/23 23:18 95 H 09/23/23 23:16 162/110 H 91 BiPAP 09/23/23 23:16 105 H 28 H 96 100 09/23/23 23:04 37.7 C H 94 H 24 162/110 H 96 BiPAP 09/23/23 23:04 CPAP Supervising Physician Co-Signing Physician Notes Attending addendum: I have physically seen this patient, have supervised the medical residents activities, and agree with the H&P unless as otherwise noted. Assessment and Plan: Acute respiratory failure with hypoxia/multifocal pneumonia/right greater than left small volume pleural effusions- CT of chest consistent with multifocal pneumonia For now, continue vancomycin IV and meropenem IV begun in the ED Presently on nasal cannula 4 L, could be tapered downward further for target pulse ox at 94% Sacral ulcer- Patient reportedly was to be started on vancomycin and meropenem for 6 weeks, from ID report of 09/16 Treatment had not yet begun Status post I&D of sacral wound without reconstruction on 09/05/2023, with cultures growing C albicans, pansensitive E. coli, PSA and Enterococcus Patient was to have undergone a fasciocutaneous flap, however, this did not take place because of poor wound condition Patient reportedly has [facility] home care at home ESRD on HD- Dialysis days are Friday, Friday and Friday Continue sevelamer, vitamin B complex and vitamin C, cholecalciferol Atrial fibrillation- Continue Eliquis and metoprolol succinate Resident Activity Tracking Resident Involvement: Resident Care Provided Care Provided: [facility] Medicine (2) Pneumonia Laterality: right Lung location: middle lobe of lung Pneumonia type: due to unspecified organism Qualified Code(s): J18.9 - Pneumonia, unspecified organism
[2023-09-24] MEDS: MEROPENEM 500 MG in SYRINGE 0 ML IV STA (01:11)
[2023-09-24] MEDS: VANCOMYCIN HCL 1,750 MG in SODIUM CHLORIDE 0.9% 500 ML IV ONE (01:12)
--- NOTE | 2023-09-24 01:27 | CT Scan Report ---
Exam(s): CT CHEST Without Contrast EXAM: CT Chest Without Intravenous Contrast CLINICAL HISTORY: acute resp failure/pna. TECHNIQUE: Axial computed tomography images of the chest without intravenous contrast. CTDI is 16.09 mGy and DLP is 588.85 mGy-cm. Automated exposure control was utilized for the study. A dose lowering technique was utilized adhering to the principles of ALARA. COMPARISON: CT chest without contrast dated 08/15/2023 FINDINGS: Lungs: Patchy confluent airspace opacities noted in the posterior right upper lobe and, less prominently involving the left lower lobe. Pleural space: Small volume bilateral pleural effusions, right greater than left, with the left effusion measuring approximately 1 cm in thickness. No loculation. No pneumothorax. Heart: Prominent cardiomegaly. Stable coronary artery calcification. No pericardial effusion. Bones/joints: Unremarkable. No acute fracture. No dislocation. Soft tissues: Unremarkable. Vasculature: Stable postsurgical changes consistent with surgical repair of the ascending aorta. No thoracic aortic aneurysm. Lymph nodes: Nonspecific subcentimeter paratracheal lymph nodes without significant lymphadenopathy. IMPRESSION: 1. Patchy confluent airspace opacities noted in the posterior right upper lobe and, less prominently involving the left lower lobe. Findings are consistent with multifocal pneumonia. 2. Small volume bilateral pleural effusions, right greater than left, with the left effusion measuring approximately 1 cm in thickness. No loculation. Electronically signed by: Jose Michael MD 09/24/23 01:26 AM
[2023-09-24] MEDS: FUROSEMIDE 40 MG/4 ML VIAL IV ONE (01:50)
[2023-09-24] MEDS ORDERED: ALPRAZolam 0.25 MG TABLET PO PRN (02:24)
[2023-09-24] MEDS: oxyCODONE/ACETAMINOPHEN 5mg/325mg TAB PO PRN (04:21)
--- NOTE | 2023-09-24 06:37 | Billing Data ---
Date of Service September 24, 2023 Coding Level of Care Code 44704 INT INP/OBS CARE
--- NOTE | 2023-09-24 07:56 | XRay Report ---
SINGLE VIEW CHEST CLINICAL HISTORY: Dyspnea FINDINGS: 2 AP, portable, upright chest radiographs are compared to study dated 08/10/2023 and correla [place] with chest CT dated 08/05/2023. The examination is degraded by portable technique and patient rotat ion. The patient is status post midline sternotomy. The heart is enlarged. The pulmonary vasculature is noncongested. There is dense airspace consolidation in the right upper lobe. Mild airspace opacit ies are seen at the left lung base. There is bibasilar scarring/atelectasis. No large pleural effusio n or pneumothorax is seen. The skeletal structures are osteopenic. The bony thorax is grossly intact. Surgical clips project over the right shoulder. IMPRESSION: 1. Cardiomegaly without radiographic evidence of congestive failure. 2. Airspace consolidation is seen in the right upper lobe and at the left lung base. Correlate clinic ally from the pneumonia/aspiration pneumonitis. Radiographic follow-up to resolution is recommended. ACT 112: Negative or not required by law. Electronically signed by: Kasi Dai M.D. 09/24/2023 7:54 AM
[2023-09-24] MEDS: APIXABAN 2.5 MG TAB PO SCH (08:20)
[2023-09-24] MEDS: METOPROLOL SUCC 25MG EXT REL TAB PO SCH (08:21)
[2023-09-24] MEDS: SEVELAMER HCL 800 MG TABLET PO SCH ×2 (08:21→17:51)
--- NOTE | 2023-09-24 08:38 | Nephrology Consultation ---
Date of Consultation September 24, 2023 Assessment & Plan (1) ESRD (end stage renal disease) on dialysis: (2) Pneumonia: (3) Anemia of chronic disease: (4) Acute hypoxemic respiratory failure: (5) Neurogenic bladder: (6) Hypertension: (7) Sacral decubitus ulcer, stage IV: (8) Generalized weakness: (9) Hypoxia: Plan 78-year-old gentleman with end-stage kidney disease on hemodialysis, Friday, , Friday via left brachiocephalic AV fistula. Admitted with hypoxic re spiratory failure with multifocal pneumonia. Started on vancomycin and meropenem. Has stage IV sacral decubitus ulcer and recently found to have osteomyelitis. Respiratory status slightly improved although still on 4 L nasal cannula oxygen. Electrolyte acceptable. -- Plan for urgent hemodialysis this morning for 3.5 hours, UF 3 L as tolerated. -- Continue on Nephrocaps and phosphate binder -- Epogen 20,000 units with dialysis today -- Left arm nephrology precaution, dose medications for EGFR less than 10 --recommend getting PICC line for IV antibiotic for sacral osteomyelitis. Thank you for allowing me to participate in your patient's care. It was a pleasure to see Sylvester. History of Present Illness Reason for Consultation: ESKD on HD, admitted with SOB, hypertensive urgency and pneumonia. Attending Physician: Maria De Jesus Alford MD History of Present Illness Mr. Guanaco Escobedo (Ken) is a 78-year-old male with ESKD on HD MWF, hypertension, s/p colostomy, stage 4 sacral decubitus ulcer, neurogenic bladder, neurogenic bowel admitted with SOB, and hypoxia, hypertensive urgency and pneumonia. Nephrology consult requested for management of hemodialysis while inpatient. EMR records were reviewed in detail during patient's visit. Sylvester was brought to ED by EMS on 09/23/2023 with acute onset of shortness of breath and cough. He was also noted to be in hypertensive urgency with systolic blood pressure above 200 and he was given 2 doses of nitro and put on nonrebreather with oxygen saturation improving around 88% and then he was placed on CPAP with improvement of oxygen saturation to up to 90%. Chest x-ray showed multifocal pneumonia, more prominent on right upper lobe and started on vancomycin and meropenem. Eventually blood pressure improved and overall he started to feel better. Currently he is still on 4 L nasal cannula with improved oxygen saturation. He has been getting dialysis regularly and reports not missing any treatment recently. Denied any fever or chills. Electrolyte has been acceptable. Hemoglobin stable. Has end-stage kidney disease secondary to vascular disease and hypertensive nephrosclerosis as well as history of ATN, started on hemodialysis during admission at [facility] in January 2022, has been on dialysis Friday, Friday, Friday at [facility] via left brachiocephalic AV fistula, under care of Dr. Paul. Dialysis for 3.5 hours, usually gains about 1 to 2 kg in between dialysis treatments. Past medical history also significant for osteoarthritis, spinal stenosis, a significant history of type A aortic dissection with resultant spinal ischemia and neurogenic bladder. 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 Has colostomy. He was at [facility] recently for surgery for sacral decubitus ulcer but found to have osteomyelitis and surgery was postponed and plan to start on IV antibiotic via PICC line. Overall he is feeling much better this morning, denies any cough or shortness of breath. Allergies Allergy/AdvReac Type Severity Reaction Status Date / Time tetracycline Allergy Intermediate HIVES Verified 09/23/23 23:35 morphine AdvReac Intermediate Nausea Verified 09/23/23 23:35 Home Medications Medication Instructions Recorded Confirmed Type cholecalciferol (vitamin D3) 50 50 mcg PO QPM 12/31/19 09/23/23 History mcg (2,000 unit) tablet (Vitamin D3) Wheelchair (Powered) (Power #1 ea 01/04/22 09/23/23 Rx Wheelchair) metoprolol succinate 25 mg 25 mg PO QAM #90 tabs 09/10/22 09/23/23 Rx tablet,extended release 24 hr sevelamer carbonate 800 mg tablet See Rx Instructions .Route .COMPLEX 09/20/22 09/23/23 History apixaban 2.5 mg tablet (Eliquis) 2.5 mg PO BID #180 tabs 01/09/23 09/23/23 Rx gabapentin 300 mg capsule 600 mg (2 x 300 mg) PO HS #180 caps 02/10/23 09/23/23 Rx vitamin B complex and vitamin C 1 cap PO QAM #90 caps 07/09/23 09/23/23 Rx no.20-folic acid 1 mg capsule (Renal Caps) alprazolam 0.25 mg tablet 0.25 mg PO HS PRN Anxiety #30 tabs 07/23/23 09/23/23 Rx nortriptyline 25 mg capsule 25 mg PO HS #90 caps 08/14/23 09/23/23 Rx (Pamelor) oxycodone-acetaminophen 5 mg-325 1 tab PO Q6H PRN pain #30 tabs 08/29/23 09/23/23 Rx mg tablet (Percocet) atorvastatin 20 mg tablet (Lipitor) 20 mg PO QPM #90 tabs 09/10/23 09/23/23 Rx Patient History Medical History Anemia of chronic disease Encounter for pre-operative examination Wheelchair dependent Lobar pneumonia 08/2022 treated at [facility] inpatient. no current issues AV fistula LEFT History of blood transfusion 12/19/21 per pt ESRD (end stage renal disease) on dialysis [facility] in [place] Fri-Fri-Fri Neuropathic pain Sacral decubitus ulcer, stage IV "stable to improved" per [place] wound [facility] 2X PER WEEK. patient's changes dressing as instructed at home. 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 Shrestha at [facility]> BOUND FOR 3 YEARS D/T CYSTS. inhibiting patient to ambulate. 04/25/23: awaiting for surgery to remove the spinal cyst but will need his ulcer wound repaired and healed fully first --> reason for upcoming colostomy. Anemia due to chronic kidney disease History of CHF (congestive heart failure) Impotence, organic Anxiety Sleep apnea CPAP PTSD (post-traumatic stress disorder) POST AORTIC DISSECTION Neurogenic bladder Self Catheterization since Aortic repair 4-5X PER DAY Lumbar spinal stenosis Hypertension Hyperlipidemia Atrial fibrillation Follows with [facility] cardiology (Dr. Jarvis) On Eliquis Abdominal aortic aneurysm (~2014) S/p Type A dissection with emergent repair in 2014 - Follows with vascular - last seen 11/2022- AAA 3.3cm, iliac artery aneursym (right 2.0cm and left 3.0 cm)- all stable in size; chronic thoracic aortic dissection- stable- vascular recommended repeating imaging May 2024 Surgical History History of removal of tunneled central venous catheter (CVC) with port removal of perm cath 05/[address] Marroquin S/P arteriovenous (AV) fistula creation left S/P debridement (02/08/22) Sacral Wound Debridment, Sacral bone biopsy(Not Applicable) - Jose Le DO S/P debridement (06/27/21) Excisional Debridement Sacral Decubitus Ulcer down to muscle level 4cm x 6cm - Ranjeet Myers, 06/27/2021 Excisional Debridement of Sacral Decubitus Ulcer Down to Bone, 11cm x 10cm(Not Applicable) - Ranjeet Myers DO 07/25/2021: MAC 3, ETT 7.5. History of revision of total hip arthroplasty History of arthroplasty of left hip S/P total right hip arthroplasty History of cardioversion mult>FOLLOWS WITH DR. JARVIS History of lumbar fusion History of bladder surgery History of transurethral resection of prostate Nausea and vomiting after administration of anesthetic agent History of arthroscopy RT KNEE History of open reduction and internal fixation (ORIF) procedure RT WRIST History of total knee replacement RT History of esophagogastroduodenoscopy (EGD) History of colonoscopy History of tooth extraction History of rhinoplasty History of cataract surgery RT/LEFT 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 History of gastric bypass 2010 History of cardiac catheterization 2003 - no stents - [facility] in [place] Family History Grandmother Family history of diabetes mellitus Mother Gallbladder disease Father Prostate cancer Myocardial infarction Hypertension Other Family history non-contributory No family history of adverse response to anesthesia Denies family history of Ovarian cancer Breast cancer Colorectal cancer Social History Smoking Status: Never smoker Second Hand Exposure: No; Do You Dip or Chew Tobacco: No; Tobacco Cessation Education Requested by Patient: No Hx Alcohol Use: No Hx Substance Use: No Preferred Language: Lithuanian Communication Ability: Effective Visual Impairment: Limited Hearing Ability: Normal Brass And Wind Instrument Repairer Required: No Beliefs That Will Affect Care: None marital status: Current Living Situation: Spouse Current Living Situation Comment: Lives with at home current occupational status: retired How many Children do You have: 1 Feels Safe at Home: Yes Safety Concerns: Feels Safe At This Time Childhood Exposure to Second-Hand Smoke: Yes (father did ) Diet: regular Diet Comment: low sugar, low phospate caffeine: Yes (tea) during the past year weight has: remained stable Dental Care, Regularly: Yes Physical Activity Frequency: Does not Exercise Physical Activity Frequency Comment: goes to PT twice a week Seatbelt Use: always Sunscreen Use: Yes Do you think of yourself as: straight/heterosexual Gender Identity: Male Assistive Devices: Wheelchair Review of Systems Review of Systems: Detailed review of system was done and pertinent positives and negatives are mentioned above. Physical Exam Constitutional: WD/WN, vitals as above + ill appearing; no acute distress Eyes: + anicteric sclerae Neck: normal visual inspection Respiratory: Auscultation: + diminished lung sounds and + rales Cardiovascular: Rate/Rhythm: regular rate and regular rhythm Heart Sounds: normal S1 and normal S2 Extremities: + AV fistula (left BC AVF with thrill and bruit); no edema Gastrointestinal (Abdomen): non tender, soft, ostomy in place Musculoskeletal: Extremities: extremities normal to inspection Skin: no rashes, warm and dry Neurologic: no focal motor deficits Psychiatric: Orientation: alert and oriented x 3 Affect: euthymic affect Genitourinary: Perry in place Results & Data Vital Signs (Past 12 Hours) Vital Signs Temp Pulse Pulse Resp BP BP Pulse Ox 09/24/23 08:30 09/24/23 07:52 81 09/24/23 05:30 108/72 09/24/23 05:30 89 20 100 09/24/23 05:00 123/81 09/24/23 05:00 86 21 99 09/24/23 05:00 09/24/23 05:00 37.1 C 86 19 123/81 100 09/24/23 04:30 106/68 09/24/23 04:30 87 21 100 09/24/23 04:00 136/72 09/24/23 04:00 84 20 100 09/24/23 03:56 93 H 09/24/23 03:30 123/72 0228/24 03:30 88 18 100 09/24/23 03:01 100 09/24/23 03:00 86 20 100 09/24/23 03:00 116/75 09/24/23 02:59 89 09/24/23 02:39 92 H 09/24/23 02:30 126/77 09/24/23 02:30 94 H 20 100 09/24/23 02:18 114/71 09/24/23 02:18 92 H 22 100 09/24/23 02:00 98 H 17 98 09/24/23 02:00 115/86 09/24/23 01:20 101 H 8 L 92 09/24/23 01:16 09/24/23 01:10 98 H 10 L 100 09/24/23 01:00 103 H 18 118/67 100 09/24/23 00:56 100 09/24/23 00:40 96 H 19 100 09/24/23 00:30 100 09/24/23 00:30 101 H 18 126/88 100 09/24/23 00:26 37.4 C 09/24/23 00:25 107 H 17 138/94 100 09/24/23 00:20 89 19 100 09/24/23 00:10 96 H 22 100 09/24/23 00:00 94 H 20 100 09/23/23 23:31 95 H 19 100 09/23/23 23:31 170/103 H 09/23/23 23:30 86 15 95 09/23/23 23:20 95 H 13 95 09/23/23 23:18 95 H 09/23/23 23:16 162/110 H 91 09/23/23 23:16 105 H 28 H 96 09/23/23 23:04 37.7 C H 94 H 24 162/110 H 96 09/23/23 23:04 Pulse Ox O2 Del Method O2 Del Method O2 Flow Rate O2 Flow Rate FiO2 09/24/23 08:30 Nasal Cannula 4 09/24/23 07:52 09/24/23 05:30 09/24/23 05:30 Nasal Cannula 4 09/24/23 05:00 09/24/23 05:00 Nasal Cannula 4 09/24/23 05:00 Nasal Cannula 4 09/24/23 05:00 Nasal Cannula 4 09/24/23 04:30 09/24/23 04:30 Nasal Cannula 4 09/24/23 04:00 09/24/23 04:00 Room Air 09/24/23 03:56 09/24/23 03:30 09/24/23 03:30 CPAP 09/24/23 03:01 Nasal Cannula 4 09/24/23 03:00 CPAP 09/24/23 03:00 09/24/23 02:59 09/24/23 02:39 09/24/23 02:30 09/24/23 02:30 CPAP 09/24/23 02:18 09/24/23 02:18 Nasal Cannula 4 09/24/23 02:00 Nasal Cannula 4 09/24/23 02:00 09/24/23 01:20 09/24/23 01:16 100 Nasal Cannula 4 09/24/23 01:10 09/24/23 01:00 Nasal Cannula 4 09/24/23 00:56 09/24/23 00:40 09/24/23 00:30 70 09/24/23 00:30 BiPAP 09/24/23 00:26 09/24/23 00:25 09/24/23 00:20 09/24/23 00:10 09/24/23 00:00 09/23/23 23:31 09/23/23 23:31 09/23/23 23:30 09/23/23 23:20 09/23/23 23:18 09/23/23 23:16 BiPAP 09/23/23 23:16 100 09/23/23 23:04 BiPAP 09/23/23 23:04 CPAP PG Care Time/CCT Total # of Minutes Spent Total Time Spent with Patient: Total time spent is greater than 50% in coordination of care (as documented) at patient's floor/unit and/or counseling patient: Coding Level of Care Code 68432 INT INP/OBS CARE 3/75MIN Diagnoses ESRD (end stage renal disease) on dialysis N18.6; Z99.2 Pneumonia J18.9 Laterality: right Lung location: middle lobe of lung Pneumonia type: due to unspecified organism Anemia of chronic disease D63.8 Acute hypoxemic respiratory failure J96.01 Neurogenic bladder N31.9 Essential hypertension I10 Hypertension type: essential hypertension Sacral decubitus ulcer, stage IV L89.154 Generalized weakness R53.1 Hypoxia R09.02 (2) Pneumonia Laterality: right Lung location: middle lobe of lung Pneumonia type: due to unspecified organism Qualified Code(s): J18.9 - Pneumonia, unspecified organism (6) Hypertension Hypertension type: essential hypertension Qualified Code(s): I10 - Essential (primary) hypertension
[2023-09-24] MEDS ORDERED: VANCOMYCIN CONSULT ACTIVE PRN (10:27)
--- NOTE | 2023-09-24 10:29 | Electrocardiogram Report ---
Test Reason : Blood Pressure : / mmHG Vent. Rate : 103 BPM Atrial Rate : 000 BPM P-R Int : 000 ms QRS Dur : 118 ms QT Int : 392 ms P-R-T Axes : 000 -63 093 degrees QTc Int : 513 ms Atrial fibrillation with rapid ventricular response with premature ventricular or aberrantly conducte d complexes Left anterior fascicular block Left ventricular hypertrophy with QRS widening and repolarization abnormality ( R in aVL ) Abnormal ECG When compared with ECG of 10-AUG-2023 15:03, T wave amplitude has increased in Inferior leads T wave inversion now evident in Anterolateral leads Confirmed by Kodak Jarvis ([id number]) on 09/24/2023 10:28:50 AM Referred By: REFERRED SELF Confirmed By:Kodak Jarvis
--- NOTE | 2023-09-24 10:32 | Pharmacy Report ---
Pharmacy PK ABX Note - Date of Service September 24, 2023 - Assessment and Plan Assessment 78 year old M receiving Vancomycin and Meropenem for treatment of sacral osteomyelitis. * Day #1 of antimicrobial therapy. 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 Most recent culture (09/05/23) obtained from [facility] records indication sacral ulcer was growing Pseudomonas aeruginosa, Enterococcus species, and two colonies of Escherichia coli. * E. coli was pansensitive. P. aeruginosa was only susceptible to Meropenem and Tobramycin. Enterococcus species were sensitive to Ampicillin and Vancomycin. Culture also grew Laney albicans. * [facility] recommended 6 weeks of IV abx in the form of Meropenem 1 g q24h and Vancomycin to maintain AUC/SAVANNAH of 400-600. Due to insurance issues, neither of these were started prior to this admission. * Patient has ESRD and is on HD MWF. Reports no missed sessions. Has 3.5 hr session ordered for today that started at 0934 per swimming pool plasterer helper. * Mild fever x 1 upon admission of 37.7oC. No leukocytosis. Blood cultures pending. * Received 20 mg/kg load of vancomycin this AM at 0112. Meropenem was adjusted per our hospital policy to 500 mg q24h and given at 0111. Plan Vancomycin * Loading dose: 1750 mg IV x 1 * Pre-HD level not expected to be useful so deferred this AM. * Standard 3-4 hour HD session typically removes ~30-40% of vancomycin. * Will obtain a 4-6 hr post-HD vancomycin level to determine the need for another dose given patient does have significant residual urine output. Would expect patient's level to be near 15 mcg/mL so may only need a small post-HD dose administered. * Will have second shift pharmacist follow for level results and give post-HD dose as follows: * Level < 10 mcg/mL = give 1000 mg vancomycin * Level 10-15 mcg/mL = give 750 mg vancomycin * Level 15.1-20 mcg/mL = give 500 mg vancomycin * Level > 20 mcg/mL = hold further vancomycin * Will order another random level for tomorrow morning Meropenem * Will disregarding [facility] policy for meropenem and follow [employer] [facility] recommended dosing * 1000 mg IV every 24 hours (give after HD on dialysis days) Pharmacy will continue to follow and will adjust dose/frequency as necessary. Thank you. Pharmacy has transitioned to AUC monitoring for vancomycin. AUC/SAVANNAH is the preferred PK/PD target and is associated with decreased risk of nephrotoxicity compared to traditional trough targets.
--- NOTE | 2023-09-24 10:48 | Hospitalist Progress Note ---
Date of Service September 24, 2023 Assessment & Plan (1) Acute hypoxemic respiratory failure: Plan: Acute Hypoxic Respiratory Failure in the Setting of Pneumonia - CXR/CT Chest demonstrated multifocal pneumonia -BioFire was negative, procalcitonin surprisingly negative as well - Started on Vancomycin and Meropenem in the ED; plan to continue in the setting on concurrent sacral wound - Currently stable on 4L NC; wean as tolerated ESRD (end stage renal disease) on dialysis: HD on M/W/F Nephrology consulted for inpatient dialysis Continue sevelamer With sudden onset of symptoms and history of ESRD concern for pulmonary edema and was given IV Lasix in the ED; imaging noted small B/L pleural effusions Sacral Ulcer 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: Patient was hospitalized early August 2023 for sacral wound had an I&D down to the bone, sacral tissue growing C albicans, E. coli Enterococcus Saw infectious disease outpatient and has been started on IV meropenem 1 g daily and also vancomycin for total of 6 weeks Will continue that regimen while here in the hospital. Will need a PICC line Consult wound care Neuropathic pain: Continue gabapentin, nortriptyline Oxycodoneacetaminophen q6h as needed for breakthrough pain Anemia of chronic disease: Hgb 10.0; chronic; stable Secondary to ESRD Neurogenic bladder: Perry in place Hyperlipidemia: Continue atorvastatin Anxiety: Continue alprazolam as needed Atrial fibrillation: Continue metoprolol, Eliquis Continue to monitor in the hospital, patient require PICC line Full code DVT prophylaxis SCDs (2) Pneumonia: (3) ESRD (end stage renal disease) on dialysis: (4) Hypoxia: (5) Anemia of chronic disease: Admission and Anticipated Discharge Date Admission Date: September 24, 2023 Subjective Patient seen and examined emergency department, no new complaints denies shortness of breath or chest pain. Review of Systems Review of Systems: All systems reviewed are negative, apart from the ones contained in the history. Physical Exam Physical Exam: The patient is awake, alert and oriented 3, well developed and well nourished, normocephalic and atraumatic, lying in bed and in no acute distress. HEENT--PERRL, EOMI, mucous membranes and oropharynx mildly dry Neck--supple. No JVD. No bruits. Thyroid normal, trachea midline, no adenopa thy. Heart--normal S1 and S2. No murmurs, rubs or gallops. Lungs--clear bilaterally, no respiratory distress, no accessory muscle use. Abdomen--normal bowel sounds and soft. Extremities--no cyanosis or clubbing. No edema. Dermatologic--normal skin turgor, normal color, no abnormal lymph nodes, no rash. Neurologic--cranial nerves II through XII grossly intact. Rheumatologic--normal range of motion. Psychiatric--normal affect. Results & Data Results & Data Vital Signs (Past 12 Hours) Vital Signs Temp Pulse Pulse Resp BP BP Pulse Ox 09/24/23 08:30 09/24/23 07:52 81 09/24/23 05:30 108/72 09/24/23 05:30 89 20 100 09/24/23 05:00 123/81 09/24/23 05:00 86 21 99 09/24/23 05:00 09/24/23 05:00 98.8 F 86 19 123/81 100 09/24/23 04:30 106/68 09/24/23 04:30 87 21 100 09/24/23 04:00 136/72 09/24/23 04:00 84 20 100 09/24/23 03:56 93 H 09/24/23 03:30 123/72 09/24/23 03:30 88 18 100 09/24/23 03:01 100 09/24/23 03:00 86 20 100 09/24/23 03:00 116/75 09/24/23 02:59 89 09/24/23 02:39 92 H 09/24/23 02:30 126/77 09/24/23 02:30 94 H 20 100 09/24/23 02:18 114/71 09/24/23 02:18 92 H 22 100 09/24/23 02:00 98 H 17 98 09/24/23 02:00 115/86 09/24/23 01:20 101 H 8 L 92 09/24/23 01:16 09/24/23 01:10 98 H 10 L 100 09/24/23 01:00 103 H 18 118/67 100 09/24/23 00:56 100 09/24/23 00:40 96 H 19 100 09/24/23 00:30 100 09/24/23 00:30 101 H 18 126/88 100 09/24/23 00:26 99.3 F 09/24/23 00:25 107 H 17 138/94 100 09/24/23 00:20 89 19 100 09/24/23 00:10 96 H 22 100 09/24/23 00:00 94 H 20 100 09/23/23 23:31 95 H 19 100 09/23/23 23:31 170/103 H 09/23/23 23:30 86 15 95 09/23/23 23:20 95 H 13 95 09/23/23 23:18 95 H 09/23/23 23:16 162/110 H 91 09/23/23 23:16 105 H 28 H 96 09/23/23 23:04 99.9 F H 94 H 24 162/110 H 96 09/23/23 23:04 Pulse Ox O2 Del Method O2 Del Method O2 Flow Rate O2 Flow Rate FiO2 09/24/23 08:30 Nasal Cannula 4 09/24/23 07:52 09/24/23 05:30 09/24/23 05:30 Nasal Cannula 4 09/24/23 05:00 09/24/23 05:00 Nasal Cannula 4 09/24/23 05:00 Nasal Cannula 4 09/24/23 05:00 Nasal Cannula 4 09/24/23 04:30 09/24/23 04:30 Nasal Cannula 4 09/24/23 04:00 09/24/23 04:00 Room Air 09/24/23 03:56 09/24/23 03:30 09/24/23 03:30 CPAP 09/24/23 03:01 Nasal Cannula 4 09/24/23 03:00 CPAP 09/24/23 03:00 09/24/23 02:59 09/24/23 02:39 09/24/23 02:30 09/24/23 02:30 CPAP 09/24/23 02:18 09/24/23 02:18 Nasal Cannula 4 09/24/23 02:00 Nasal Cannula 4 09/24/23 02:00 09/24/23 01:20 09/24/23 01:16 100 Nasal Cannula 4 09/24/23 01:10 09/24/23 01:00 Nasal Cannula 4 09/24/23 00:56 09/24/23 00:40 09/24/23 00:30 70 09/24/23 00:30 BiPAP 09/24/23 00:26 09/24/23 00:25 09/24/23 00:20 09/24/23 00:10 09/24/23 00:00 09/23/23 23:31 09/23/23 23:31 09/23/23 23:30 09/23/23 23:20 09/23/23 23:18 09/23/23 23:16 BiPAP 09/23/23 23:16 100 09/23/23 23:04 BiPAP 09/23/23 23:04 CPAP PG Care Time/CCT Total # of Minutes Spent Total Time Spent with Patient: Total time spent is greater than 50% in coordination of care (as documented) at patient's floor/unit and/or counseling patient: Coding Level of Care Code 16389 SUB INP/OBS CARE 2/35MIN Diagnoses Acute hypoxemic respiratory failure J96.01 Pneumonia J18.9 Laterality: right Lung location: middle lobe of lung Pneumonia type: due to unspecified organism ESRD (end stage renal disease) on dialysis N18.6; Z99.2 Hypoxia R09.02 Anemia of chronic disease D63.8 Time Spent (min) 35 (2) Pneumonia Laterality: right Lung location: middle lobe of lung Pneumonia type: due to unspecified organism Qualified Code(s): J18.9 - Pneumonia, unspecified organism
[2023-09-24] MEDS: EPOETIN ALFA 20,000 UNITS/ML VIAL IV STA (13:06)
--- OUTSIDE RECORDS SUMMARY | 2023-09-24 13:48 | External Medical Summary | Summary of Care ---
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 0 Active Azelastine HCl 137 MCG/SPRAY Nasal Solution Administer 1 [place] into each nostril every night at bedtime. 0 08/02/2021 Active HYDROcodone-Acetamin ophen 5-325 MG Oral TabletIndications:In fected pressure ulcer, stage IV (HCC),Other acute osteomyelitis, other site (HCC) Take 1 Tablet by mouth every 12 hours as needed for Pain, Moderate or Pain, Severe. Ongoing therapy 30 Tablet 0 08/16/2021 Active ALPRAZolam 0.25 MG Oral Tablet (xaNAX)Indications:P TSD (post-traumatic stress disorder) Take by mouth 1 Tablet as needed before bedtime for Anxiety or Sleep. 15 Tablet 0 09/25/2021 Active Atorvastatin Calcium 20 MG Oral Tablet (Lipitor)Indications :Hyperlipidemia, unspecified hyperlipidemia type Take by mouth 1 Tablet in the morning. 30 Tablet 0 09/25/2021 Active Apixaban 2.5 MG Oral Tablet (Eliquis)Indications :Paroxysmal atrial fibrillation (HCC) Take by mouth 1 Tablet in the morning AND 1 Tablet before bedtime. 60 Tablet 0 09/25/2021 Active Metoprolol Succinate ER 25 MG Oral Tablet Extended Release 24 Hour (Toprol XL)Indications:Chron ic congestive heart failure, unspecified heart failure type (HCC),Paroxysmal atrial fibrillation (HCC) Take by mouth 1 Tablet in the morning. 30 Tablet 0 09/25/2021 Active Nephrocaps 1 MG Oral Capsule Take 1 Capsule by mouth in the morning. 0 Active Nortriptyline HCl 25 MG Oral Capsule (Pamelor) 0 11/08/2022 Active Gabapentin 300 MG Oral Capsule (Neurontin) at bedtime. 2 tablets 0 08/23/2023 Active meropenem IV IV (AMBULATORY)Indicati ons:Osteomyelitis of sacrum (HCC) Administer 1,000 mg intravenously every evening. To be given after dialysis on dialysis days Do not start before September 25, 2023. 42 g 0 09/25/2023 4 Active vancomycin IV IV (AMBULATORY)Indicati ons:Osteomyelitis of sacrum (HCC) Administer 1,200 mg intravenously once a day on Friday, Friday, and Friday only. 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 473 mL 2 09/23/2023 Active documented as of this encounter (statuses as of 09/23/2023) Active Problems Problem Noted Date Diagnosed Date AVF (arteriovenous fistula) 09/06/2023 ESRD on dialysis 09/05/2023 Paroxysmal atrial fibrillation 08/02/2021 Anemia of chronic renal failure, stage 4 (severe ) 08/02/2021 Abdominal aortic aneurysm (AAA) without rupture 08/02/2021 PTSD (post-traumatic stress disorder) 08/02/2021 Infected pressure ulcer, stage IV 07/26/2021 Overview: Sacral Bacteremia 07/26/2021 Overview: Bacteroides fragilus, from sacral wound Chronic kidney disease, stage IV (severe) 2020 Neurogenic bowel 07/26/2021 Neurogenic bladder 07/26/2021 Primary hypertension 07/26/2021 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 History of dissecting abdomi nal aortic aneurysm (AAA) repair 06/09/2021 Abnormal gait 06/09/2021 Aneurysm of iliac artery 06/09/2021 Arthritis of right wrist 06/09/2021 Dissection of thoracic aorta 06/09/2021 Synovial cyst of lumbar spine 06/09/2021 Pressure injury of sacral region, stage 4 2020 documented as of this encounter (statuses as of 09/23/2023) Resolved Problems Problem Noted Date Diagnosed Date Resolved Date Nail finding 06/09/2021 08/02/2021 Osteoarthritis of left hip 06/09/2021 1 Pain of right lower extremity 06/09/2021 07/26/2021 Sacroiliitis 05/30/2021 08/02/2021 documented as of this encounter (statuses as of 09/23/2023) Social History Tobacco Use Types Packs/Day Years Used Date Smoking Tobacco: Never Smokeless Tobacco: Never Alcohol Use Standard Drinks/Week Comments Not Currently 0 (1 standard drink = 0.6 oz pur e alcohol) none since 2014 Sex and Gender Information Value Date Recorded Sex Assigned at Male 09/15/2023 6:48 PM EST Gender Identity Not on file Sexual Orientation Straight 09/15/2023 6: 48 PM EST Job Start Date Occupation Industry Not on file Not on file Not on file documented as of this encounter Functional Status Functional Status Response Date of Assess ment Are you deaf or do you have serious difficulty h earing? No 09/05/2023 Are you blind or do you have serious difficulty seeing, even when wearing glasses? No 09/05/2023 Do you have serious difficul ty walking or climbing stairs? (5 years old or older) No 09/05/2023 Do you have difficulty dress ing or bathing? (5 years old or older) No 09/05/2023 Cognitive Status Response Date of Assessm ent Because of a physical, menta l, or emotional condition, do you have serious difficulty concentrating, remembering, or making decisions? (5 years old or older) No 09/05/2023 documented as of this encounter Progress Notes * Kyle Chong MD - 09/23/2023 11:21 AM EST Images from the original note were not included. WOUND OUTPATIENT FOLLOW-UP NOTE HPI: Patient presents today for follow-up evaluation of sacral pressure injury. The wound has been present since June 2021. Patient thinks wound started from pressure. Patient has been currently treating with I[employer] by [employer] and saline packing as instructed by [facility]. Today, presents with cyst of R upper back as well. Surgical Hx: - irrigation and debridement of pressure ulcer; bone biopsy by Dr Keys 09/05/23 CULTURE, TISSUE, AEROBIC AND ANAEROBIC Order: [id number] Status: Final result Visible to patient: Yes (seen) Next appt: 10/17/2023 at 11:00 AM in *ID* (Sia French MD) 0 Result Notes Culture Growth Two colonies Escherichia coli Abnormal One colony Pseudomonas aeruginosa Abnormal From broth only Enterococcus species Abnormal No anaerobic growth. Stain Description No polymorphonuclear leukocytes seen No organisms seen Resulting Agency: Susceptibility Escherichia coli Pseudomonas aeruginosa Enterococcus species MICROBROTH DILUTIONS MICROBROTH DILUTIONS MICROBROTH DILUTIONS Ampicillin Susceptible Susceptible Cefepime Susceptible Intermediate Ceftazidime Resistant Ceftriaxone Susceptible Ciprofloxacin Susceptible Intermediate Gentamicin Susceptible Levofloxacin Resistant Meropenem Susceptible Piperacillin Tazobactam Susceptible Resistant 1 Tobramycin Susceptible Trimeth/Sulfamethoxazole Susceptible Vancomycin Susceptible Current dressing: See Wound Assessment Dressing change frequency: every day RLE Compression: none LLE Compression: none RLE Wt Bearing Offloading: none LLE Wt Bearing Offloading: none RLE Non-Wt Bearing Offloading: none LLE Non-Wt Bearing Offloading: none Offloading Surface for Bed: Alternating cell mattress Offloading Surface for Chair / Wheelchair: ROHO cushion ROS: Pain: no Drainage: mild serous Swelling: no Erythema: mild pam-wound Fever/Chills: no Malaise: no ROS was negative other than stated above. No recent/relevant imaging Hemoglobin AIC Results: Lab Results Component Value Date/Time HEMOGLOBIN A1C - [facility] 5.4 09/04/2021 08:24 AM Lab Results Component Value Date/Time INR - [facility] 1.1 11/04/2022 02:27 PM No results found for: "FINGER" Estimated Glomerular Filtration Rate Date Value Ref Range Status 09/06/2023 11 (L) >=60 mL/min Final Comment: eGFR is calculated based on the CKD-EPI 2020 equation Tobacco History: Social History Tobacco Use Smoking Status Never Smokeless Tobacco Never WOUND ASSESSMENT: Alteration in Skin Integrity Coccyx/Sacrum (Active) Clinical Image 09/23/23 1100 Primary Dressing Present (removed today) Saline 09/23/23 1100 Secondary Dressing Present (removed today) GAUZE 09/23/23 1100 Tertiary Dressing Present (removed today) ABD Pads 09/23/23 1100 Quaternary Dressing Present (removed today) None 09/23/23 1100 Wound Length (cm) 6 cm 09/23/23 1100 Wound Width (cm) 5 cm 09/23/23 1100 Wound Depth (cm) 1.5 cm 09/23/23 1100 Yellow Fibrinous Slough (%) 26-50% 09/23/23 1100 Granulation Tissue (%) 51-75% 09/23/23 1100 Granulation Tissue Color pale/pink 09/23/23 1100 Necrotic Tissue (%) none 09/23/23 1100 Necrotic Tissue Color Not Applicable 09/23/23 1100 Deep Supporting Structure Exposed None 09/23/23 1100 Drainage serous, mild 09/23/23 1100 Odor (after cleansing wound) No 09/23/23 1100 Pam-Wound (Surrounding Skin) Intact;Nonerythematous;Nontender;Erythematous 09/23/23 1100 Evidence of Infection No 09/23/23 1100 Wound Surface Area (cm^2) 30 cm^2 09/23/23 1100 Wound Volume (cm^3) 45 cm^3 09/23/23 1100 Alteration in Skin Integrity Lateral;Right;Upper Back (Active) Clinical Image 09/23/23 1100 Primary Dressing Present (removed today) Telfa 09/23/23 1100 Secondary Dressing Present (removed today) None 09/23/23 1100 Tertiary Dressing Present (removed today) None 09/23/23 1100 Quaternary Dressing Present (removed today) None 09/23/23 1100 Wound Length (cm) 1 cm 09/23/23 1100 Wound Width (cm) 0.7 cm 09/23/23 1100 Wound Depth (cm) 0.2 cm 09/23/23 1100 Yellow Fibrinous Slough (%) 1-25% 09/23/23 1100 Granulation Tissue (%) 26-50% 09/23/23 1100 Granulation Tissue Color pale/pink 09/23/23 1100 Necrotic Tissue (%) 26-50% 09/23/23 1100 Necrotic Tissue Color Yellow 09/23/23 1100 Deep Supporting Structure Exposed None 09/23/23 1100 Drainage purulent, mild 09/23/23 1100 Odor (after cleansing wound) No 09/23/23 1100 Pam-Wound (Surrounding Skin) Edema;Erythematous;Tender;Intact 09/23/23 1100 Evidence of Infection Yes 09/23/23 1100 Wound Surface Area (cm^2) 0.7 cm^2 09/23/23 1100 Wound Volume (cm^3) 0.14 cm^3 09/23/23 1100 ASSESSMENT/PLAN: ICD-10-CM 1. Stage 4 skin ulcer of sacral region ([facility]) L98.429 2. Chronic kidney disease, stage IV (severe) ([facility]) N18.4 3. Paroxysmal atrial fibrillation ([facility]) I48.0 4. Abscess of back L02.212 Sacral wound does not appear acutely infected Cx taken of R upper back abscess; will contact with results IV abx for OM per ID; pt/ report waiting in IV insertion D/C use of Aquacel Ag Resume 1/2 Strength Dakin's Solution moistened gauze packing to sacral wound - changed daily. Start 1/2 Strength Dakin's Solution moistened gauze packing to R upper back abscess - changed daily. Wash wound at time of dressing changes with soap/potable water. -Recommend barrier cream to keep area free of drainage -Cover wound with Allevyn or like silicone adhesive bordered foam dressing Pam-wound erythema likely from irritation from wound drainage vs adhesive; does not appear pressure related Continue Offloading: -Turn and Position q2h. -Low air loss mattress. -ROHO or equivalent foam cushion when using wheelchair/all sitting surfaces - Limit time in wheelchair/sitting. No orders found. Follow-up: 6 weeks Kyle Chong MD 09/23/2023 11:57 AM I spent a total of 40-54 minutes (exact time 45 mins) on the date of service in preparation, delivery, and documentation of the care provided to Guanaco Escobedo excluding any time spent in the performance of separately billed services. documented in this encounter Plan of Treatment Upcoming Encounters Date Type Department Care Team (Latest Contact Info) Description 09/23/2023 12:20 PM EST Laboratory Outpatient Laboratory, [address] [address] [place], Lab B1a [facility] [place] [address] Osteomyelitis of sacrum (HCC) 10/17/2023 11:00 AM EDT Telemedicine Infectious Disease [address] [address] Sia French MD [address] [place] [address] 11/04/2023 11:20 AM EDT Telemedicine Wound Care, [address] [address] Kyle Chong MD [facility] [address] [place], [place] [id number] Scheduled Orders Name Type Priority Associated Diagnoses Orde r Schedule CULTURE, WOUND, DEEP, AEROBIC Lab Routine Abscess of back Ordered: 09/23/2023 Health Maintenance Due Date Last Done Comments Depression Screening 1957 AAA Monitoring 1963 Hepatitis C Screening 1963 Zoster Vaccines (3 of 3) 03/22/2020 020, 01/26/2020, 09/23/2014 COVID-19 Vaccine ( season) 2023 07/05/2022, 05/08/2022, 10/22/2021, Additional history exists Influenza Vaccine (FLU shot) (#1) 2023 04/29/2022, 03/09/2022, 05/11/2021, Additional history exists DTaP,Tdap,and Td Vaccines (5 - Td or Tdap) 01/25/2030 01/26/2020, 01/26/2020, 08/08/2019, Additional history exists Pneumococcal Vaccine: 65+ Years Completed 05/09/2021, 05/11/2016, 05/06/2012 Hepatitis B Completed 05/14/2023, 02/25, 02/12/2023, Additional history exists GARDASIL-HPV IMMUNIZATION SERIES Aged Out No longer eligible based on patient's age to complete this topic MENINGOCOCCAL (MENACTRA/MENVEO) Aged Out No longer eligible based on patient's age to complete this topic documented as of this encounter Medical Devices Not on filedocumented as of this encounter Visit Diagnoses Diagnosis 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 Question Answer Comments Discussion of Advance Directives occurred with: Patient Code Status History Code Status Date Activated Date Inactivated Comments Full Code 09/05/2023 10:15 AM 09/05/2023 2:28 PM Question Answer Comments Discussion of Advance Directives occurred with: Not Discussed due to patient's condition Care Teams Environmental Advisor Relationship Specialty Start Date End Date Jasiel Pineda DO [address] [place] [address] PCP - General Family Medicine 09/25/21 documented as of this encounter
--- OUTSIDE RECORDS SUMMARY | 2023-09-24 13:48 | External Medical Summary | Summary of Care ---
Author Name Unknown Organization [facility] Address [address] [place] [address] Phone [phone] Care Team Providers Care Structural Steel Painter Name Role Phone Edwin Jasiel Lama DO Primary Care Provider [phone] Reason for Visit * Reason Onset Date Comments Hospital Follow-Up 09/18/2023 Encounter Details Date Type Department Care Team (Late st Contact Info) Description 09/18/2023 Telephone Infectious Disease, [place] [address] [place] [address] Jamin Young MD [address] [place] [address] Hospital Follow-Up Allergies Active Allergy Reactions Criticality Noted Date Comments Morphine Nausea/vomiting 06/09/2021 Other reaction(s): Vomiting Tetracycline 06/09/2021 Other reaction(s): Hives documented as of this encounter (statuses as of 09/23/2023) Medications Medication Sig Dispensed Refills Start Date End Date Status Vitamin D 50 MCG (1999 [place]) Oral Capsule Take 2,000 Units by mouth daily. 0 Active Azelastine HCl 137 MCG/SPRAY Nasal Solution Administer 1 [place] into each nostril every night at bedtime. [...] only. 3.6 g 5 09/19/2023 4 Active documented as of this encounter (statuses [...] No 09/05/2023 documented as of this encounter Miscellaneous Notes * Telephone Encounter - Lori Jarvis OSA - 09/23/2023 12:11 PM EST Pts Gabbi returned call, no answer, requesting a call back from Guerda, please call [phone] * Telephone Encounter - Guerda Gunter LPN - 09/23/2023 11:22 AM EST Images from the original note were not included. I received Insurance info back from [facility]. LMOM asking Pt's for a callback. * Telephone Encounter - Guerda Gunter LPN - 09/18/2023 3:[address] Young, Pt is to begin a course of IV abx. Referral sent to [facility] to run for insurance auth. Pt is already using [facility] home health. Pt also goes to dialysis MWF at [facility]. I spoke to Pt'milife and updated her on the process. I will speak with her again once insurance auth comes back. [facility] v[facility] there, however, Pt will have to stay longer than an hour post dialysis. I have given his the option of doing that drug at home as well and she has agreed to do it that way. I will update her once auth comes through. Dr. Young, Please review and sign med orders. Vanco will need a dose entered. Thank you, Guerda Gunter LPN Nurse Navigator ID documented in this encounter Plan of Treatment Upcoming Encounters Date Type Department Care Team (Latest Contact Info) Description 09/23/2023 12:20 PM EST Laboratory Outpatient Laboratory, [place] [address] [place] [address] [place], Lab B1a [address] [place] [address] Osteomyelitis of sacrum (HCC) 10/17/2023 11:00 AM EDT Telemedicine Infectious Disease [place] [address] [place] [address] Sia French MD [facility] [place] [address] 11/04/2023 11:20 AM EDT Telemedicine Wound Care, [place] [address] [place] [address] Kyle Chong MD [facility] [place] [address] Health Maintenance Due Date Last Done Comments Depression Screening 1957 AAA Monitoring 1963 Hepatitis C Screening 1963 Zoster Vaccines (3 of 3) 03/22/2020 020, 01/26/2020, 09/23/2014 COVID-19 Vaccine (2022-24 season) 2023 07/05/2022, 05/08/2022, 10/22/2021, Additional history [...] as of this encounter Visit Diagnoses Diagnosis Osteomyelitis of sacrum (HCC)- Primary Unspecified osteomyelitis, other specified site Osteomyelitis of sacrum (HCC) Unspecified osteomyelitis, other [...] Discussed due to patient's condition Care Teams Structural Steel Painter Relationship Specialty Start Date End Date Jasiel Pineda DO [address] [address] PCP - General Family Medicine 09/25/21 documented as of this encounter
--- OUTSIDE RECORDS SUMMARY | 2023-09-24 13:48 | External Medical Summary | Summary of Care ---
Author Name Unknown Organization [facility] Address [address] [place] [address] Phone [phone] Care Team Providers Care Retail Office Associate Name Role Phone Edwin Jasiel Marshallmond Primary Care Provider [phone] Reason for Visit * Reason Onset Date Comments Wound Care Hospital Follow-Up 09/23/2023 Encounter Details Date Type Department Care Team (Late st Contact Info) Description 09/23/2023 11:20 AM EST Office Visit Wound Care, [place] [address] [place] [address] Kyle Chong MD [address] [place] [address] Stage 4 skin ulcer of sacral region [...] HCl 137 MCG/SPRAY Nasal Solution Administer 1 [place] into each nostril every night at bedtime. [...] Plastics and saline packing as instructed by [facility] Wound [facility]. Today, presents with cyst of R upper back as well. Surgical Hx: - irrigation and debridement of pressure ulcer; bone biopsy by Dr Keys 09/05/23 CULTURE, TISSUE, AEROBIC AND ANAEROBIC Order: [id number] Status: Final result Visible to patient: Yes [...] Stage 4 skin ulcer of sacral region ([facility]) L98.429 2. Chronic kidney disease, stage IV (severe) ([facility]) N18.4 3. Paroxysmal atrial fibrillation ([facility]) I48.0 4. Abscess of back L02.212 Sacral [...] separately billed services. documented in this encounter Nursing Notes * Fartun Yin LPN - 09/23/2023 3:00 PM EST Dakins moistened gauze lightly packed into sacral wound and right shoulder wound and covered with aDSD as per order. documented in this encounter Plan of Treatment Upcoming Encounters Date Type Department Care Team (Late st Contact Info) Description 10/17/2023 11:00 AM EDT Telemedicine Infectious Disease [address] [phone] Sia French MD [address] [place] [address] 11/04/2023 11:20 AM EDT [facility] [address] [place], [place] [phone] Kyle Chong MD [address] [place] [address] Pending Results Name Type Priority Associated Diagnoses Date /Time CULTURE, WOUND, DEEP, AEROBIC Lab Routine Abscess of back 09/23/2023 12:01 PM EST Health Maintenance Due Date Last Done Comments Depression Screening 1957 AAA Monitoring 1964 Hepatitis C Screening 1963 Zoster Vaccines (3 of 3) 03/22/2020 020, 01/26/2020, 09/23/2014 COVID-19 Vaccine (24 season) 2023 07/05/2022, 05/08/2022, 10/22/2021, Additional history [...] trunk Hospital discharge follow-up Other follow-up examination documented in this encounter Advance Directives Latest [...] Discussed due to patient's condition Care Teams Retail Office Associate Relationship Specialty Start Date End Date Jasiel Pineda DO [address] [place] [address] PCP - General Family Medicine 09/25/21 documented as of this encounter
--- OUTSIDE RECORDS SUMMARY | 2023-09-24 13:48 | External Medical Summary | Summary of Care ---
Author Name Unknown Organization [facility] Address [address] [place] [address] Phone [phone] Care Team Providers Care Car Sales Associate Name Role Phone Edwin Jasiel Marshallmond Primary Care Provider [phone] Reason for Visit * Reason Onset Date Comments Wound Care Hospital Follow-Up 09/23/2023 Encounter Details Date Type Department Care Team (Late st Contact Info) Description 09/23/2023 11:20 AM EST Office Visit Wound Care, [place] [address] [place] [address] Kyle Chong MD [address] [place] [address] Stage 4 skin ulcer of sacral region [...] HCl 137 MCG/SPRAY Nasal Solution Administer 1 [place] into each nostril every night at bedtime. [...] Plastics and saline packing as instructed by [facility] Wound Clinic. Today, presents with cyst of R upper back as well. Surgical Hx: - irrigation and debridement of pressure ulcer; bone biopsy by Dr Keys 09/05/23 CULTURE, TISSUE, AEROBIC AND ANAEROBIC Order: [id number] Status: Final result Visible to patient: Yes [...] Stage 4 skin ulcer of sacral region ([facility]) L98.429 2. Chronic kidney disease, stage IV (severe) ([facility]) N18.4 3. Paroxysmal atrial fibrillation ([facility]) I48.0 4. Abscess of back L02.212 Sacral [...] 10/17/2023 11:00 AM EDT Telemedicine Infectious Disease [address] [phone] Sia French MD [address] [place] [address] 11/04/2023 11:20 AM EDT [facility] [place] [address] [place], [place] [phone] Kyle Chong MD [address] [place] [address] Pending Results Name Type Priority Associated Diagnoses [...] Discussed due to patient's condition Care Teams Car Sales Associate Relationship Specialty Start Date End Date Jasiel Pineda DO [address] [place] [address] PCP - General Family Medicine 09/25/21 documented as of this encounter
--- OUTSIDE RECORDS SUMMARY | 2023-09-24 13:48 | External Medical Summary | Summary of Care ---
Author Name Unknown Organization [facility] Address [address] [place] [address] Phone [phone] Care Team Providers Care Internal Grinding Machine Operator Name Role Phone Edwin Jasiel Marshallmond Primary Care Provider [phone] Reason for Visit * Reason Onset Date Comments Wound Care Hospital Follow-Up 09/23/2023 Encounter Details Date Type Department Care Team (Late st Contact Info) Description 09/23/2023 11:20 AM EST Office Visit Wound Care, [place] [address] [place] [address] Kyle Chong MD [address] [place] [address] Stage 4 skin ulcer of sacral region [...] HCl 137 MCG/SPRAY Nasal Solution Administer 1 [place] into each nostril every night at bedtime. [...] Plastics and saline packing as instructed by [facility]. Today, presents with cyst of R upper back as well. Surgical Hx: - irrigation and debridement of pressure ulcer; bone biopsy by Dr Keys 09/05/23 CULTURE, TISSUE, AEROBIC AND ANAEROBIC Order: [id number] Status: Final result Visible to patient: Yes [...] Stage 4 skin ulcer of sacral region ([facility]) L98.429 2. Chronic kidney disease, stage IV (severe) ([facility]) N18.4 3. Paroxysmal atrial fibrillation ([facility]) I48.0 4. Abscess of back L02.212 [...] 09/23/2023 12:20 PM EST Laboratory Outpatient Laboratory, [address] [address] [place], Lab B1a [facility] [place] [address] Osteomyelitis of sacrum (HCC) 10/17/2023 11:00 AM EDT Telemedicine Infectious Disease [address] [address] Sia French MD [address] [place] [address] 11/04/2023 11:20 AM EDT Telemedicine Wound Care, [address] [address] Kyel Chong MD [facility] [address] [place], [place] [id number] Scheduled Orders Name Type Priority Associated Diagnoses [...] Discussed due to patient's condition Care Teams Internal Grinding Machine Operator Relationship Specialty Start Date End Date Jasiel Pineda DO [address] [place] [address] PCP - General Family Medicine 09/25/21 documented as of this encounter
--- OUTSIDE RECORDS SUMMARY | 2023-09-24 13:49 | External Medical Summary | Summary of Care ---
Author Name Unknown Organization [facility] Address [address] [place] [address] Phone [phone] Care Team Providers Care Clerk Television Production Name Role Phone Edwin Jasiel Lama DO Primary Care Provider [phone] Reason for Visit * Reason Onset Date Comments ST[facility]IR [facility] 09/16/2023 Encounter Details Date Type Department Care Team (Late st Contact Info) Description 09/16/2023 Telephone ST[facility]IR [facility] [address] [place], [place] [id number] Program, [place] [address] [place] [address] [facility] Allergies Active Allergy Reactions Criticality Noted Date Comments Morphine Nausea/vomiting 06/09/2021 Other reaction(s): Vomiting Tetracycline 06/09/2021 Other reaction(s): Hives documented as of this encounter (statuses as of 09/16/2023) Medications Medication Sig Dispensed Refills Start Date End Date Status Vitamin D 50 MCG (1999) Oral Capsule Take 2,000 Units by mouth daily. 0 Active Azelastine HCl 137 MCG/SPRAY Nasal Solution Administer 1 [place] into each nostril every night at bedtime. [...] before bedtime. 60 Tablet 0 09/25/2021 Active FiberCon 625 MG Oral Tablet (Calcium Polycarbophil)Indica tions:Loose stools Take by mouth 2 Tablets in the morning. with 8 ounces of water.. 60 Tablet 0 09/25/2021 Active Gabapentin 100 MG Oral Capsule (Neurontin)Indicatio ns:Chronic midline low back pain with left-sided sciatica,Synovial cyst of lumbar spine Take by mouth 2 Capsules before bedtime. 60 Capsule 0 09/25/2021 Active Additional Information Patient taking differently: 600 mgOral HS, Reported on 01/02/2023 Metoprolol Succinate ER 25 MG Oral Tablet Extended Release 24 Hour (Toprol XL)Indications:Chron ic congestive heart failure, unspecified heart failure type (HCC),Paroxysmal atrial fibrillation (HCC) Take by mouth 1 Tablet in the morning. 30 Tablet 0 09/25/2021 Active Nephrocaps 1 MG Oral Capsule Take 1 Capsule by mouth in the morning. 0 Active Nortriptyline HCl 25 MG Oral Capsule (Pamelor) 0 11/08/2022 Active documented as of this encounter (statuses as of 09/16/2023) Active Problems Problem Noted Date Diagnosed Date AVF (arteriovenous fistula) 09/06/2023 ESRD on dialysis 09/05/2023 Paroxysmal atrial fibrillation 08/02/2021 Anemia of chronic renal failure, stage 4 (severe ) 08/02/2021 Abdominal aortic aneurysm (AAA) without rupture 08/02/2021 PTSD (post-traumatic stress disorder) 08/02/2021 Infected pressure ulcer, stage IV 07/26/2021 Overview: Sacral Bacteremia 07/26/2021 Overview: Bacteroides fragilus, from sacral wound Chronic kidney disease, stage IV (severe) 12/30/ 2021 Neurogenic bowel 07/26/2021 Neurogenic bladder 07/26/2021 Primary [...] as of this encounter (statuses as of 09/16/2023) Resolved Problems Problem Noted Date Diagnosed Date Resolved Date Nail finding 06/09/2021 08/02/2021 Osteoarthritis of left hip 06/09/2021 1 Pain of right lower extremity 06/09/2021 07/26/2021 Sacroiliitis 05/30/2021 08/02/2021 documented as of this encounter (statuses as of 09/16/2023) Social History Tobacco Use Types Packs/Day Years Used Date Smoking Tobacco: Never Smokeless Tobacco: Never Sex and Gender Information Value Date Recorded [...] encounter Miscellaneous Notes * Telephone Encounter - Yarely Serra LPN - 09/16/2023 9:52 AM EST AAA - Clinical Summary Name: Guanaco Escobedo Age: [age] year old AAA Review: Initial Follow-up Encounter Provider: N/A Patient Identified by: Problem List Report Imaging Interpretation: CT Type of Result: AAA 3.0 to 3.9 cm AAA Care Plan Imaging Recommendation: Aortic Duplex - details below Details: in 2 years AAA Care Plan Visit Recommendation: No Visit needed Details: None Next steps: Letter sent to non[facility] PCP. Time spent: 10 minutes Yarely Serra LPN Coordinator STAIR (System to Track Abnormalities of Importance Reliably) CT ABD/PELVIS WO IV CONTRAST - W ORAL CONTRAST 3.7 cm 05/16/22 documented in this encounter Plan of Treatment Upcoming Encounters Date Type Department Care Team (Late st Contact Info) Description 09/16/2023 11:40 AM EST Office Visit Infectious Disease [address] [address] Jamin Young MD [address] [place] [address] 09/23/2023 11:20 AM EST Office Visit Wound Care, [place] [address] [place] [address] Kyle Chong MD [address] [place] [address] Health Maintenance Due Date Last Done Comments Depression Screening 1957 AAA Monitoring 1964 Hepatitis C Screening 1963 Nephrology Referral 1963 PTH 1964 Phosphate 1964 Zoster Vaccines (3 of 3) 03/22/2020 020, 01/26/2020, 09/23/2014 COVID-19 Vaccine ( season) 2023 07/05/2022, 05/08/2022, 10/22/2021, Additional history exists Influenza Vaccine (FLU shot) (#1) 2023 04/29/2022, 03/09/2022, 05/11/2021, Additional history exists Hgb 09/06/2024 09/06/2023, 02/03/2024, 08/28/2023, Additional history exists DTaP,Tdap,and Td Vaccines (5 [...] Not on filedocumented as of this encounter Advance Directives Latest Code Status [...] Discussed due to patient's condition Care Teams Clerk Television Production Relationship Specialty Start Date End Date Jasiel Pineda DO [address] [place] [address] PCP - General Family Medicine 09/25/21 documented as of this encounter
--- OUTSIDE RECORDS SUMMARY | 2023-09-24 13:49 | External Medical Summary | Summary of Care ---
Author Name Unknown Organization [facility] Address [address] [place] [address] Phone [phone] Care Team Providers Care Diesel Engineer Name Role Phone Edwin Jasiel Marshallmond Primary Care Provider [phone] Reason for Visit * Reason Onset Date Comments Wound Care Hospital Follow-Up 09/23/2023 Encounter Details Date Type Department Care Team (Late st Contact Info) Description 09/23/2023 11:20 AM EST Office Visit Wound Care, [place] [address] [place] [address] Kyle Chong MD [address] [place] [address] Stage 4 skin ulcer of sacral region [...] HCl 137 MCG/SPRAY Nasal Solution Administer 1 [place] into each nostril every night at bedtime. [...] Plastics and saline packing as instructed by [facility] W[facility] Clinic. Today, presents with cyst of R upper back as well. Surgical Hx: - irrigation and debridement of pressure ulcer; bone biopsy by Dr Keys 09/05/23 CULTURE, TISSUE, AEROBIC AND ANAEROBIC Order: [id number] Status: Final result Visible to patient: Yes [...] Stage 4 skin ulcer of sacral region ([facility]) L98.429 2. Chronic kidney disease, stage IV (severe) ([facility]) N18.4 3. Paroxysmal atrial fibrillation ([facility]) I48.0 4. Abscess of back L02.212 Sacral [...] 09/23/2023 12:20 PM EST Laboratory Outpatient Laboratory, [address] [address] [place], Lab B1a [facility] [place] [address] Osteomyelitis of sacrum (HCC) 10/17/2023 11:00 AM EDT Telemedicine Infectious Disease [address] [address] Sia French MD [address] [place] [address] 11/04/2023 11:20 AM EDT Telemedicine Wound Care, [address] [address] Kyle Chong MD [facility] [address] [place], [place] [phone] Scheduled Orders Name Type Priority Associated Diagnoses [...] Discussed due to patient's condition Care Teams Diesel Engineer Relationship Specialty Start Date End Date Jasiel Pineda DO [address] [place] [address] PCP - General Family Medicine 09/25/21 documented as of this encounter
--- OUTSIDE RECORDS SUMMARY | 2023-09-24 13:49 | External Medical Summary ---
Author Name Unknown Address Unknown Organization K01:[facility] [place] - [address] [place] [address] Laboratory Report Ordering Provider Test Date Status YULIA BACA 09/23/2023 11:13:48 Final Observation Date Value Abnormality Reference (Units ) Status CRP, low-sensitivity 09/23/2023 11:13:48 12 Above high normal <=5 (mg/L) Final Performing Location [facility] [place] - [address] [place] [address]
--- OUTSIDE RECORDS SUMMARY | 2023-09-24 13:49 | External Medical Summary ---
Author Name Unknown Address Unknown Organization K01:[facility] [place] [address] [place] [address] Laboratory Report Ordering Provider Test Date Status JESSICA BECKER 09/06/2023 07:17:59 Final Observation Date Value Abnormality Reference (Units ) Status BUN 09/06/2023 07:17:59 71 Above high normal 6-20 (mg/dL) Final Creatinine 09/06/2023 07:17:59 5.1 Above high normal 0.6-1.2 (mg/dL) Final Glomerular filtration rate/1.73 sq M.predicted [Volume Rate/Area] in Serum, Plasma or Blood by Creatinine-based formula (CKD-EPI) 09/06/2023 07:17:59 11 Below low normal >=60 (mL/min) Final eGFR is calculated based on the CKD-EPI 2020 equation SODIUM 09/06/2023 07:17:59 137 135-146 (m mol/L) Final Potassium 09/06/2023 07:17:59 4.6 3.5-5.1 (m mol/L) Final Cl 09/06/2023 07:17:59 97 Below low normal 98- 107 (mmol/L) Final CO2 09/06/2023 07:17:59 25 22-32 (mmo l/L) Final Anion gap 09/06/2023 07:17:59 15 7-15 (mmol /L) Final Glucose 09/06/2023 07:17:59 82 70-120 (mg /dL) Final Calcium 09/06/2023 07:17:59 8.9 8.4-10.2 ( mg/dL) Final Performing Location [facility] [place] [address] [place] [address]
--- OUTSIDE RECORDS SUMMARY | 2023-09-24 13:49 | External Medical Summary | Summary of Care ---
Author Name Unknown Organization [facility] Address [address] [place] [address] Phone [phone] Care Team Providers Care Tie Sawyer Name Role Phone Edwin Jasiel Lama DO Primary Care Provider [phone] [phone] Reason for Visit * Reason Onset Date Comments Hospital Follow-Up 09/18/2023 Encounter Details Date Type Department Care Team (Late st Contact Info) Description 09/18/2023 Telephone Infectious Disease, [place] [address] [place] [address] Jamin Young MD [address] [place] [address] Hospital Follow-Up Allergies Active Allergy Reactions Criticality Noted Date Comments Morphine Nausea/vomiting 06/09/2021 Other reaction(s): Vomiting Tetracycline 06/09/2021 Other reaction(s): Hives documented as of this encounter (statuses as of 09/18/2023) Medications Medication Sig Dispensed Refills Start Date End Date Status Vitamin D 50 MCG (1999 [place]) Oral Capsule Take 2,000 Units by mouth daily. 0 Active Azelastine HCl 137 MCG/SPRAY Nasal Solution Administer 1 [place] into each nostril every night at bedtime. [...] as of this encounter (statuses as of 09/18/2023) Active Problems Problem Noted Date Diagnosed Date [...] as of this encounter (statuses as of 09/18/2023) Resolved Problems Problem Noted Date Diagnosed Date Resolved Date Nail finding 06/09/2021 08/02/2021 Osteoarthritis of left hip 06/09/2021 1 Pain of right lower extremity 06/09/2021 07/26/2021 Sacroiliitis 05/30/2021 08/02/2021 documented as of this encounter (statuses as of 09/18/2023) Social History Tobacco Use Types Packs/Day Years [...] encounter Miscellaneous Notes * Telephone Encounter - Guerda Gunter LPN - 09/18/2023 3:[address] Young, Pt is to begin a course of IV abx. Referral sent to [facility] to run for insurance auth. Pt is already using [facility] home health. Pt also goes to dialysis MWF at [facility]. I spoke to Pt'swife and updated her on the process. I [...] 11:20 AM EST Office Visit Wound Care, [place] [address] [place] [address] Kyle Chong MD [address] [place] [address] 10/17/2023 11:00 AM EDT Telemedicine Infectious Disease [address] [address] Sia French MD [address] [place] [address] Health Maintenance Due Date Last Done Comments [...] (HCC)- Primary Unspecified osteomyelitis, other specified site documented in [...] Discussed due to patient's condition Care Teams Tie Sawyer Relationship Specialty Start Date End Date Jasiel Pineda DO [address] [place] [address] PCP - General Family Medicine 09/25/21 documented as of this encounter
--- OUTSIDE RECORDS SUMMARY | 2023-09-24 13:49 | External Medical Summary | Summary of Care ---
Author Name Unknown Organization [facility] Address [address] [place] [address] Phone [phone] Care Team Providers Care Zipper Slide Attacher Name Role Phone Edwin Jasiel Lama DO Primary Care Provider [phone] Reason for Visit * Reason Onset Date Comments Hospital Follow-Up 09/18/2023 Encounter Details Date Type Department Care Team (Late st Contact Info) Description 09/18/2023 Telephone Infectious Disease, [place] [address] [place] [address] Jamin Young MD [address] [place] [address] Hospital Follow-Up Allergies Active Allergy [...] HCl 137 MCG/SPRAY Nasal Solution Administer 1 [place] into each nostril every night at bedtime. [...] I received Insurance info back from [facility]. LMOM asking Pt's for a callback. * Telephone Encounter - Guerda Gunter LPN - 09/18/2023 3:[address] Young, Pt is to begin a course of IV abx. Referral sent to [facility] to run for insurance auth. Pt is already using [facility] home health. Pt also goes to dialysis MWF at [facility]. I spoke to Pt'swife and updated her on the process. I will speak with her again once insurance auth comes back. I spoke with nurse at [facility] and they can administer vanco there, however, [...] 09/23/2023 12:20 PM EST Laboratory Outpatient Laboratory, [place] [address] [place] [address] [place], Lab B1a [address] [place] [address] Osteomyelitis of sacrum (HCC) 10/17/2023 11:00 AM EDT Telemedicine Infectious Disease [address] [address] Sia French MD [address] [place] [address] Health Maintenance Due Date Last Done Comments [...] Discussed due to patient's condition Care Teams Zipper Slide Attacher Relationship Specialty Start Date End Date Jasiel Pineda DO [address] [place] [address] PCP - General Family Medicine 09/25/21 documented as of this encounter
--- OUTSIDE RECORDS SUMMARY | 2023-09-24 13:49 | External Medical Summary | Summary of Care ---
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, stage 4 (HCC) [L89.154] Procedures REMOVE SACRAL PRESSURE ULCER/BONE MUSCLE-SKIN FLAP, LEG EXCISION SACRAL PRESSURE ULCER WITH OSTECTOMY PREFLAP MUSCLE MYOCUTANEOUS OR FASCIOCUTANEOUS FLAP LOWER EXTREMITY Referral ID Status Reason Start Date Expiration Date Visits Re quested Visits Authorized [id number] Encounter Details Date Type Department Care Team (Latest Contact Info) Description 09/05/2023 9:16 AM EST - 09/06/2023 12:15 PM EST Hospital Encounter [id number] [facility], [facility] 6th Floor [address], [place] [id number] Otis Keys MD [address], [place] [id number] Nikos Andrade MD [address] [facility] [place] [address] Tae Parnell DO [address] [facility] [place] [address] Discharge Disposition: Home with Services Allergies Active Allergy Reactions Criticality Noted Date Comments Morphine Nausea/vomiting 06/09/2021 Other reaction(s): Vomiting Tetracycline 06/09/2021 Other reaction(s): Hives documented as of this encounter (statuses as of 09/07/2023) Medications Medication Sig Dispensed Refills Start Date End Date Status Vitamin D 50 MCG (1999) Oral Capsule Take 2,000 Units by mouth daily. 0 Active Azelastine HCl 137 MCG/SPRAY Nasal Solution Administer 1 Imboden into each nostril every night at bedtime. 0 2 Active HYDROcodone-Acetami nophen 5-325 MG Oral TabletIndications:I nfected pressure ulcer, stage IV (HCC),Other acute osteomyelitis, other site (HCC) Take 1 Tablet by mouth every 12 hours as needed for Pain, Moderate or Pain, Severe. Ongoing therapy 30 Tablet 0 2 Active ALPRAZolam 0.25 MG Oral Tablet (xaNAX)Indications: PTSD (post-traumatic stress disorder) Take by mouth 1 Tablet as needed before bedtime for Anxiety or Sleep. 15 Tablet 0 2 Active Atorvastatin Calcium 20 MG Oral Tablet (Lipitor)Indication s:Hyperlipidemia, unspecified hyperlipidemia type Take by mouth 1 Tablet in the morning. 30 Tablet 0 2 Active Apixaban 2.5 MG Oral Tablet (Eliquis)Indication s:Paroxysmal atrial fibrillation (HCC) Take by mouth 1 Tablet in the morning AND 1 Tablet before bedtime. 60 Tablet 0 2 Active FiberCon 625 MG Oral Tablet (Calcium Polycarbophil)Indic ations:Loose stools Take by mouth 2 Tablets in the morning. with 8 ounces of water.. 60 Tablet 0 2 Active Gabapentin 100 MG Oral Capsule (Neurontin)Indicati ons:Chronic midline low back pain with left-sided sciatica,Synovial cyst of lumbar spine Take by mouth 2 Capsules before bedtime. 60 Capsule 0 2 Active Additional Information Patient taking differently: 600 mgOral HS, Reported on 01/02/2023 Metoprolol Succinate ER 25 MG Oral Tablet Extended Release 24 Hour (Toprol XL)Indications:Wire Galvanizer gudelia congestive heart failure, unspecified heart failure type (HCC),Paroxysmal atrial fibrillation (HCC) Take by mouth 1 Tablet in the morning. 30 Tablet 0 03/01/202 2 Active Nephrocaps 1 MG Oral Capsule Take 1 Capsule by mouth in the morning. 0 Active Nortriptyline HCl 25 MG Oral Capsule (Pamelor) 0 3 Active Minoxidil 10 MG Oral Tablet (Loniten)Indication s:Primary hypertension Take by mouth 1 Tablet in the morning. 30 Tablet 0 2 09/06/19 24 Discontinued Sevelamer Carbonate 800 MG Oral Tablet (Renvela) 0 3 09/06/19 24 Discontinued Sodium Hypochlorite 0.25 % External SolutionIndications :Stage 4 skin ulcer of sacral region (HCC),Chronic kidney disease, stage IV (severe) (HCC),Paroxysmal atrial fibrillation (HCC) Apply topically to affected area daily. 473 mL 2 3 09/06/19 24 Discontinued oxyCODONE-Acetamino phen 5-325 MG Oral Tablet Take 1 Tablet by mouth every 4 hours as needed. 0 09/05/19 24 Discontinued Ciprofloxacin HCl 250 MG Oral Tablet (Cipro) Take 1 Tablet by mouth in the morning and 1 Tablet before bedtime. 0 09/05/19 24 Discontinued documented as of this encounter (statuses as of 09/07/2023) Active Problems Problem Noted Date Diagnosed Date [...] as of this encounter (statuses as of 09/07/2023) Resolved Problems Problem Noted Date Diagnosed Date Resolved Date Nail finding 06/09/2021 08/02/2021 Osteoarthritis of left hip 06/09/2021 1 Pain of right lower extremity 06/09/2021 07/26/2021 Sacroiliitis 05/30/2021 08/02/2021 documented as of this encounter (statuses as of 09/07/2023) Social History Tobacco Use Types Packs/Day Years Used Date Smoking Tobacco: Never Smokeless Tobacco: Never Sex and Gender Information Value Date Recorded Sex Assigned at Not on file Gender Identity Not on file Sexual Orientation Not on file Job Start Date Occupation Industry Not on file Not on file Not on file documented as of this encounter Last Filed Vital Signs Vital Sign Reading Time Taken Comments Blood Pressure 157/79 09/06/2023 10:02 AM EST Pulse 72 09/06/2023 10:02 AM EST Temperature 35.9 C (96.6 F) 09/06/2023 10:[address] Respiratory Rate 16 09/06/2023 10:02 AM EST Oxygen Saturation 100% 09/06/2023 3:00 AM EST Inhaled Oxygen Concentration - - Weight 78.9 kg (174 lb) 09/05/2023 9:34 AM EST Height 182.9 cm (6') 09/05/2023 9:34 AM EST Body Mass Index 23.6 09/05/2023 9:34 AM EST documented in this encounter Functional Status Functional Status Response [...] No 09/05/2023 documented as of this encounter Discharge Instructions * Discharge Instr - AVS* Tae Parnell DO - 09/05/2023 4:57 PM EST Discharge Date: 09/06/2023 The information below provides you with the instructions and the list of medications you need to betaking following discharge from the hospital. If you have any questions, please ask before leaving. If you have questions after leaving, you can reach us at the numbers below. YOUR HOSPITAL PROVIDERS: Discharging Provider: Tae Parnell DO Provider Department: Hospital Medicine To reach this Provider Friday through Friday (8:00 AM to 4:30 PM) for any questions or test results: Call [phone] For after-hours concerns: Call [phone] and have your provider paged, or the provider vibration engineer for the Department of Hospital Medicine paged. Please note, the discharging provider will not be able to provide you with any medications refills.Please discuss these with your primary care provider. Worsening Symptoms: If you have new symptoms, or your symptoms get worse, please contact your Discharge Provider or Primary Care Provider (PCP). If these providers are not available, you can go to your local [facility] or Urgent Care Clinic during their business hours. In an EMERGENCY situation: Call [phone] or go to the nearest emergency room. A BRIEF SUMMARY OF YOUR HOSPITAL STAY: You came to the hospital with: complaint of wound debridement Your main diagnosis at discharge was: same. Noted anemia (low blood count) on lab work. Operations & Procedures performed: Incision and debridement of sacral wound. Complications: none significant Inpatient test results that are pending at discharge: Bone culture. Advance Directive Documented: Advance Directive Does the Patient have an Advance Directive? No YOUR FOLLOW UP APPOINTMENTS: Primary Care Provider Information: PCP: Jasiel Pineda DO [address] [facility] [address] / [place] [address] (office) [phone] (fax) An appointment was requested with your PCP (Jasiel Pineda DO) within 7 days. (Please take this form to this visit with your primary care physician.) You need the following studies in the future: Advise CBC (blood count) on hemodialysis per Primary Care physician or Occupational Health Physician. Suggest EPO (erythropoietin) per steel plate printer on hemodialysis if appropriate. INSTRUCTIONS: Diet: Renal diet. Activity: No restrictions Additional Instructions: -advise CBC (blood count) next hemodialysis session -you may need erythropoietin (blood hormone) injection with hemodialysis - discuss with your steel plate printer. -monitor stools for blood or blackened stool (melena) which indicates bleeding into colon while on blood thinner. As per plastic surgery: Wound Care Instructions: Twice daily dressing changes with wet-to-dry Kerlix moistened with saline packed into sacral wound,covered with ABD pad and Medpore tape Reposition Q2H: best to lie down right lateral decubitus, left lateral decubitus, prone; NOT supine Recommend low air loss mattress Follow-up in Wound Care clinic to optimize wound for future surgery. documented in this encounter Progress Notes * Leonor Ramírez MD - 09/06/2023 8:43 AM EST PROGRESS NOTE - Nephrology [facility]-[address] [address] Name: Guanaco Escobedo Location: [facility] B631/B Date: 09/06/2023 Time: 8:43 AM SUBJECTIVE: Patient seen and examined on dialysis. No acute issues noted overnight. CURRENT HOSPITAL MEDICATIONS: Reviewed Current Facility-Administered Medications Medication Dose Route Frequency Provider Acetaminophen (Tylenol) tab 975 mg 975 mg Oral Q8H PRN Alena Cruz DO ALPRAZolam (xaNAX) tab 0.25 mg 0.25 mg Oral HS PRN Shelley Ruiz PA-C Apixaban (Eliquis) tab 2.5 mg 2.5 mg Oral BID(AM/PM) Alena Cruz DO atorvaSTATin (Lipitor) tab 20 mg 20 mg Oral Daily(AM) Alena Cruz DO Gabapentin (Neurontin) cap 600 mg 600 mg Oral HS Alena Cruz DO metoprolol succinate XL (toPROL XL) tab 25 mg 25 mg Oral Daily(AM) Alena Cruz DO nortriptyline (Pamelor) cap 25 mg 25 mg Oral QHS Alena Cruz, oxyCODONE (Oxy IR) tab 5 mg 5 mg Oral Q4H PRN Alena Cruz DO sodium chloride 0.9 % flush/inj 3 mL 3 mL IV Push PRN Alena Cruz, sodium citrate 4% (Anticoagulant Sodium Citrate) inj 3 mL 3 mL Dialysis catheter On dialysis Meredith Sifuentes MD OBJECTIVE: Most Recent Vital Signs: BP: 138 mmHg/75 mmHg (09/06/23812) Pulse: 71 (09/06/23812) Temp: 36.5 C (09/06/23699) Temp Summary: Temp Min: 36.1 C (97 F) Max: 36.7 C (98.1 F) SpO2: 100 % (09/06/23299) O2 flow rate: 0 L/MIN (09/06/23299) Supplemental O2 Delivery: Room Air, None (09/06/23699) Vital Signs last 24 Hours: Systolic BP: Most Recent Systolic BP Av.1 mmHg Min: 106 mmHg Max: 149 mmHg Temperature: Most Recent Temperature Av.4 C Min: 36.11 C Max: 36.72 C Pulse: Pulse Av.6 Min: 60 Max: 71 Respirations: Resp Av.4 Min: 12 Max: 19 SpO2: SpO2 Av.1 % Min: 97 % Max: 100 % Constitutional: no acute distress HEENT: normal: normocephalic, atraumatic; no masses, tenderness, or adenopathy CV: normal rate and rhythm, no murmur, gallops or rub Chest: normal respiratory effort, lungs clear to auscultation and percussion Abdomen: normal: soft, bowel sounds normal, no masses, tenderness or organomegaly Extremities Edema: no edema Neuro: alert, oriented to person, place, and time, normal mental status exam, gait normal, reflexesnormal and symmetric, sensory normal Skin: warm, dry, intact Left upper arm AVF--good thrill and bruit LABS: Reviewed Lab results within last 7 days (see chart for full results) Units 09/06/23716 08/09/24 1150 HGB g/dL 8.1* 8.9* HCT % 25.8* 29.5* WBC K/uL 6.12 5.93 PLT K/uL 170 187 Lab results within last 7 days (see chart for full results) Units 09/06/23 0717 09/05/23 1150 Sodium mmol/L 137 136 Potassium mmol/L 4.6 4.3 Chloride mmol/L 97* 95* CO2 mmol/L 25 26 BUN mg/dL 71* 61* Creatinine mg/dL 5.1* 4.2* Intake/Output Summary (Last 24 hours) at 09/06/2023 0847 Last data filed at 09/05/2023 1600 Gross per 24 hour Intake 700 ml Output 175 ml Net 525 ml IMAGING: Reviewed IMPRESSION: 78 year old year old male with pmhx significant for ESRD on HD (MWF at [place], sees Dr Paul, ac NIELSON AVF), BPH, hypertension, neurogenic bowel and bladder, history of dissecting AAA repair, dissection of thoracic aorta, paroxysmal Afib on Eliquis, stage IV sacral ulcer, wheelchair-bound, who was admitted on 09/05/2023 following irrigation and debridement of pressure ulcer; bone biopsy for sacral pressure ulcer, stage IV. Nephrology has been consulted for providing dialysis support Plan 1.ESRD : HD today as per prescription. Patient is ESRD on HD, Friday [place], sees Dr. Paul Next HD session should be on Friday09/08/2023 2.Anemia: Hemoglobin 8.1, can have HARJINDER 50 units/kg on dialysis 3.HTN/Volume: Appears euvolemic, continue metoprolol XL 25 mg daily. 4.MBD: Calcium remains normal. Not on any phos binders 5.Access : Left upper arm AVF Leonor Ramírez MD * Otis Keys MD - 09/05/2023 1:19 PM EST Family Discussion I made and son aware that we would not be proceeding with flap reconstruction. Upon evaluationof the wound, the patient had significant dark purple bruising around the periphery of the sacral wound, early stage pressure injury. This has increased significantly since my initial evaluation of the patient. I explained that his current offloading regimen is likely not working and that any flap reconstruction would fail secondary to pressure. They were disappointed but understood. Will plan for admission for HD tomorrow, likely discharge tomorrow or next day, referral to our wound care clinic for further optimization. We will also follow up bone biopsy cultures and see if patient would benefit from course of IV abx. Otis Keys MD Plastic and Reconstructive Surgery documented in this encounter H&P Notes * Alena Cruz, DO - 09/05/2023 1:55 PM EST Images from the original note were not included. [facility] OR [facility]/OR PRESENTING PROBLEM: STAGE IV SACRAL PRESSURE WOUND HPI: Guanaco Escobedo (Ken) is a 78 year male with stage IV sacral pressure ulcer, end-stage renal disease on hemodialysis, Afib on Eliquis, BPH with obstruction, neurogenic bowel/ bladder with chronic Crowe, history of AAA presented for flap reconstruction, and whose procedure was converted to irrigation and debridement of pressure ulcer with bone biopsy due to worsening appearance of his pressure ulcer which will require optimization of offloading as an outpatient. At the time of admission, patient was notably disappointed regarding the change in his procedure plan, however otherwise denied any acute pain. He denies chest pain, shortness and breath, nausea / vomiting, abdominal pain, headaches or lightheadedness/ dizziness. He states he feels slightly congested since the surgery. He lives in [place] with his , and is wheelchair-bound at baseline. He denies any significant tobacco or recreational drug use, and states his last use of alcohol was in 2010. He states he wishes to be a full code for this admission and for his Gabbi to be his medical decision maker in the case that he is unable. Subjective Patient's past history, medications, and allergies were reviewed. Objective Physical Exam Most Recent Vital Signs: BP: 126 mmHg/69 mmHg (09/05/23 1600) Pulse: 68 (09/05/23 1500) Temp: 36.22 C (09/05/23 1329) Temp Summary: Temp Min: 36.2 C (97.2 F) Max: 36.3 C (97.3 F) SpO2: 100 % (09/05/23 1500) O2 flow rate: 10 L/MIN (09/05/23 1330) Supplemental O2 Delivery: Room Air, None (09/05/23 1600) Constitutional: elderly male, appears stated age, in no acute distress, resting comfortably in bed HENT: NC/AT, MMM Eyes: PERRL, normal sclera CV: normal rate, PVCs, no murmur, gallops or rub Chest: normal respiratory effort, lungs clear to auscultation Abdomen: normal: soft, non-distended, non-tender to palpation, bowel sounds normal, no masses or organomegaly : Crowe catheter in place draining clear yellow urine (last exchanged in the OR today) Extremities: no clubbing, cyanosis, or edema, otherwise grossly normal, warm, and dry Skin: warm, dry, dressing noted over sacral wound, dressing clean dry and intact Neuro: alert, oriented to person, place, and time Psych: appropriate mood and affect Urethral Catheter Coude (Active) Number of days: 0 Peripheral Line Lower;Right Arm 18 Gauge (Active) Number of days: 0 STUDIES: Encounter Orders Labs and other studies reviewed with pertinent findings noted below: Lab results within last 7 days (see chart for full results) Units 09/05/23 1150 Sodium mmol/L 136 Potassium mmol/L 4.3 Chloride mmol/L 95* CO2 mmol/L 26 BUN mg/dL 61* Creatinine mg/dL 4.2* Lab results within last 7 days (see chart for full results) Units 09/05/23 1150 HGB g/dL 8.9* HCT % 29.5* WBC K/uL 5.93 PLT K/uL 187 Assessment and Plan IMPRESSION: Principal Problem: Pressure injury of sacral region, stage 4 (HCC) Active Problems: Neurogenic bladder Primary hypertension BPH with obstruction/lower urinary tract symptoms Anemia of chronic renal failure, stage 4 (severe) (HCC) ESRD on dialysis (HCC) Resolved Problems: * No resolved hospital problems. * DIFFERENTIAL AND PLAN: Guanaco Escobedo (Ken) is a 78 year male with stage IV sacral pressure ulcer, end-stage renal disease on hemodialysis, Afib on Eliquis, BPH with obstruction, neurogenic bowel/ bladder with chronic Crowe, history of AAA presented for flap reconstruction, and whose procedure was converted to irrigation and debridement of pressure ulcer with bone biopsy due to worsening appearance of his pressure ulcer which will require optimization of offloading as an outpatient. 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 - postop pain management with p.r.n. Tylenol and Oxy 5 mg - continue with FLIGHT OPERATIONS DISPATCH CLERK gabapentin, nortriptyline - wound consult placed, will need outpatient follow up organized - instructions for outpatient offloading per plastics and Wound - Likely discharge tomorrow /over the weekend ESRD on HD Anemia of chronic disease Chronic, stable, we will organize hemodialysis while inpatient - nephrology consulted for inpatient hemodialysis for tomorrow morning. - Trend hemoglobin and kidney function with a.m. labs Chronic conditions: - Afib: Per plastics, okay to resume Eliquis in the morning, continue with Toprol - dyslipidemia: continue FLIGHT OPERATIONS DISPATCH CLERK atorvastatin Misc Diet - adult renal dialysis diet Bowel Regimen- none Last BM: prior to admission DVT/VTE prophylaxis - resuming FLIGHT OPERATIONS DISPATCH CLERK Eliquis tomorrow Sleep- none Lines/drains/access- PIV, chronic Crowe catheter Consultants following- plastic surgery, wound Code Status- full code Disposition- med surg, 1+ day pending scheduled hemodialysis then likely discharge PHARMACOLOGIC VTE PROPHYLAXIS:Apixaban Apixaban Tabs CODE STATUS: Full Code EXPECTED DISCHARGE DATE: No information available This patient was seen and discussed with Nikos Andrade MD at the time of admission. Associated attestation - Nikos Andrade MD - 09/05/2023 5:30 PM EST Images from the original note were not included. I saw and evaluated the patient today. I have reviewed the trainee note and agree. Guanaco Escobedo is a 78M with a PMH of ESRD on HD (MWF), hz of aortic dissection, L1-L2 spinal cystcausing progressive LE weakness, chronic sacral pressure ulcer w/ chronic crowe and diverting colostomy who is being admitted to medicine after planned OR w/ plastic surgery for planned excision of sacral bursa, possible ostectomy, repair of sacral wound with pedicled fasciocutaneous flap (ZPO). Unfortunately, patient was unable to undergo reconstruction given appearance of wound in the OR. Instead, Plastic surgery performed I&D of the pressure ulcer and took bone biopsies to ensure no infection. Patient doing well in the postoperative setting. Has no significant complaints. Vital signs are unremarkable. He is hemodynamically stable and afebrile. Physical exam notable for clean dressing over surgical site. Labs notable for fairly unremarkable BNP with normal electrolytes. Renal function of courses abnormal in the setting of ESRD on HD. His CBC is without leukocytosis. Hemoglobin relatively stable from prior baseline at 8.9. Normal platelets. There is no new imaging to review. Patient is be admitted in the postoperative setting for observation and wound care. Appreciate plastic surgery recommendations regarding wound care. Will follow up bone biopsy/cultures. No indicationfor antibiotics at this time. Will consult Nephrology for HD tomorrow. Remainder of plan per resident note. I spent a total of 62 minutes coordinating, documenting, and providing care for this patient excluding time spent in the performance of separately billed services. * Jeyson Person MD - 09/05/2023 11:20 AM EST HISTORY & PHYSICAL INTERVAL NOTE [facility]-[address] [address] History and Physical Update: Name: Guanaco Escobedo Location: [facility]/OR Date: 09/05/2023 Time: 11:20 AM DATE OF HISTORY AND PHYSICAL: 08/28/2023 BP: 136 mmHg/81 mmHg (09/05/23 1030) Pulse: 65 (09/05/23 1030) Temp: 36.28 C (09/05/23 1030) Temp Summary: Temp Min: 36.3 C (97.3 F) Max: 36.3 C (97.3 F) SpO2: 97 % (09/05/23 1030) O2 flow rate: Supplemental O2 Delivery: Room Air, None (09/05/23 1030) Does patient take a beta charlie? Yes - medication: metoprolol; date and time of last dose: today AM Did patient stop anticoagulants? Yes - Eliquis last dose Thursday 08/31 Heart Exam: heart rate irregularly irregular Lung Exam: clear to auscultation bilaterally Other Pertinent Physical Exam: None I have reviewed the H&P previously performed and examined the patient today. There are no new findings noted. * Ankita Parekh PA-C - 09/04/2023 2:46 PM EST PLASTIC SURGERY HISTORY AND PHYSICAL 08/28/2023 HPI: Patient is a 78 year old male who presents today for a preoperative history and physical. Patient has been seen by Otis Keys MD for evaluation of sacral wound. Patient is scheduled for surgery on 09/05/2023 for excision of sacral bursa, possible ostectomy, repair of sacral wound with pedicledfasciocutaneous flap (ZPO). Per initial consult, "The patient suffered a dissection of a known aortic aneurysm in 2014, which caused sensory disturbance in the lumbar and sacral region. He had been at home, caring for himself, in May 2021 when he noticed a discharge in his underwear and alerted his , who quickly had him evaluated. A sacral pressure injury was identified. The ulcer subsequently got infected, requiring hospitalization June of 2021 with OR debridements x2. During this time period, the patient also began to lose motor function of his lower extremities (separate from his sensory disturbance), prompting a workup that eventually discovered and L1-L2 spinal cyst causing progressive lower extremity dysfunction. The patient has met with a spine surgeon for decompression of the cyst to hopefully restore function to his lower extremities. However, due to the sacral ulcer, they have not been able to proceed with spine surgery. The patient is also awaiting a renal transplant after his spine surgery. The ulcer had previously been treated with many months of 3 times weekly VAC changes with home health. The patient met with Dr. Chong from [facility] on 01/02/2023 and was switched to daily wet-to-dry Dakin's dressings. They note some modest improvement of the wound on this regimen. He has since followed up with the [facility], who switched his dressings to Aquacel Silver daily. They feel that he has been optimized in all regards and receives excellent wound care, but the wound has failed to progress for several months. He denies any pain today and has no sensationin this area. The patient and his deny any signs or symptoms of infection. They have met with ID in the pastdue to a positive superficial culture, however the patient was sent for a bone biopsies to confirm osteomyelitis prior to long-term treatment. This biopsy was negative for osteomyelitis and ID did not recommend any antibiotic treatment. They do note that the wound has a consistent odor that has never gone away. He has not been on any antibiotics for many months. He is able to sense when he needs to have a bowel movement and always able to transfer to the commode. He has regular once to twice daily bowel movements. They state that stool very rarely gets in the wound, and the anus is far enough away from the wound that they nearly always keep it clean. The patient currently has a Crowe catheter that is changed outpatient on a regular basis. Currently, he has good motion in his right lower extremity but only twitches in the left lower extremity. He and his are able to transfer him with a pivot device from bed to his motorized wheelchair to a recliner. 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 They have an alternating pressure bed at home and a ROHO cushion for his motorized wheelchair. He is constantly moving and repositioning. They have not noticed development of any other pressure injuries. The focus face specifically on excellent protein intake at home, with at least 40 g of protein with breakfast and meat included at lunch and dinner. He has maintained a normal, stable weight." SURGERY CATEGORY: Trunk (non-breast) Flap/Graft Reconstruction ALLERGIES: Morphine and Tetracycline MEDICATIONS: Current Outpatient Medications Medication Sig Dispense Refill Vitamin D 50 MCG (1999 UT) Oral Capsule Take 2,000 Units by mouth daily. Azelastine HCl 137 MCG/SPRAY Nasal Solution Administer 1 Imboden into each nostril every night at bedtime. HYDROcodone-Acetaminophen 5-325 MG Oral Tablet Take 1 Tablet by mouth every 12 hours as needed for Pain, Moderate or Pain, Severe. Ongoing therapy 30 Tablet 0 ALPRAZolam 0.25 MG Oral Tablet (xaNAX) Take by mouth 1 Tablet as needed before bedtime for Anxiety or Sleep. 15 Tablet 0 Atorvastatin Calcium 20 MG Oral Tablet (Lipitor) Take by mouth 1 Tablet in the morning. 30 Tablet 0 Apixaban 2.5 MG Oral Tablet (Eliquis) Take by mouth 1 Tablet in the morning AND 1 Tablet before bedtime. 60 Tablet 0 Gabapentin 100 MG Oral Capsule (Neurontin) Take by mouth 2 Capsules before bedtime. (Patient takingdifferently: Take 6 Capsules by mouth at bedtime.) 60 Capsule 0 Metoprolol Succinate ER 25 MG Oral Tablet Extended Release 24 Hour (Toprol XL) Take by mouth 1 Tablet in the morning. 30 Tablet 0 Nephrocaps 1 MG Oral Capsule Take 1 Capsule by mouth in the morning. Nortriptyline HCl 25 MG Oral Capsule (Pamelor) oxyCODONE-Acetaminophen 5-325 MG Oral Tablet Take 1 Tablet by mouth every 4 hours as needed. FiberCon 625 MG Oral Tablet (Calcium Polycarbophil) Take by mouth 2 Tablets in the morning. with 8 ounces of water.. 60 Tablet 0 Minoxidil 10 MG Oral Tablet (Loniten) Take by mouth 1 Tablet in the morning. (Patient not taking: Reported on 08/28/2023) 30 Tablet 0 Sevelamer Carbonate 800 MG Oral Tablet (Renvela) (Patient not taking: Reported on 08/28/2023) Sodium Hypochlorite 0.25 % External Solution Apply topically to affected area daily. (Patient not taking: Reported on 08/28/2023) 473 mL 2 Ciprofloxacin HCl 250 MG Oral Tablet (Cipro) Take 1 Tablet by mouth in the morning and 1 Tablet before bedtime. (Patient not taking: Reported on 08/28/2023) No current facility-administered medications for this visit. 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 ([facility]) I71.019 Synovial cyst of lumbar spine M71.38 Pressure injury of sacral region, stage 4 ([facility]) L89.154 Infected pressure ulcer, stage IV ([facility]) L89.94, L08.9 Bacteremia R78.81 Chronic kidney disease, stage IV (severe) ([facility]) N18.4 Neurogenic bowel K59.2 Neurogenic bladder N31.9 Primary hypertension I10 BPH with obstruction/lower urinary tract symptoms N40.1, N13.8 Paroxysmal atrial fibrillation (HCC) I48.0 Anemia of chronic renal failure, stage 4 (severe) (HCC) N18.4, D63.1 Abdominal aortic aneurysm (AAA) without rupture (HCC) I71.40 PTSD (post-traumatic stress disorder) F43.10 PMH: Past Medical History: Diagnosis Date Abdominal aortic aneurysm (AAA) (HCC) 06/09/2021 BPH with obstruction/lower urinary tract symptoms 07/26/2021 Chronic kidney disease, stage IV (severe) (HCC) 07/26/2021 Neurogenic bladder 07/26/2021 Primary hypertension 07/26/2021 PSH: Past Surgical History: Procedure Laterality Date GASTRIC BYPASS FOR OBESITY IR BIOPSY 11/12/2022 [place] AAA REPAIR, FEMORAL-FEMORAL GRAFT NH TOTAL HIP ARTHROPLASTY Bilateral NH TOTAL KNEE ARTHROPLASTY Right SPINAL FUSION, LUMBAR, COMBINED Total hip x 2 FAMILY HISTORY: Family History Problem Relation Age of Onset Hypertension Father Prostate cancer Father Heart attack Father Diabetes Grandmother (Maternal) WOUND HEALING RISK FACTORS: SOCIAL HISTORY Social History Tobacco Use Smoking status: Never Smokeless tobacco: Never Substance Use Topics Alcohol use: Not on file Vaping/E-Cigarette Use Vaping/E-Cigarette Use Never User Vaping/E-Cigarette Substances Vaping/E-Cigarette Devices Non smoker Diabetes: No Chronic Steroid Use:No There is no height or weight on file to calculate BMI. Carcinoma: No Adjuvant Therapy: No ROS EXAM: CONSTITUTIONAL: No change in weight, No weakness, No fatigue, and No fevers, sweats, or chills (+) recently had pneumonia - admitted on 08/10-08/14 - symptoms resolved - was only given abx NECK: No lumps or masses, No swollen glands, No recent swelling in thyroid area, and No h/o goiter or thyroid disease PULMONARY: No cough, sputum, or hemoptysis, No wheezing, No shortness of breath, and No recent change in breathing CARDIOVASCULAR: No chest pain, No shortness of breath, and No edema (+) dissection of abdominal aortic aneurysm in 2014 s/p repair (+) HTN (+) Afib on Eliquis (+) dyslipidemia GASTROINTESTINAL: No abdominal pain, No change in bowel habits, No significant change in appetite, and No nausea, vomiting, diarrhea, or constipation (+) s/p colostomy placement on 05/05 MALE: (+) neurogenic bladder - has chronic indwelling crowe catheter RENAL: (+) ESRD on HD via LUE fistula MWF HEMATOLOGIC: No coagulation disorder, no hx of DVT, no family hx of thrombosis (+) chronic anemia 2/2 ESRD, HD EXTREMITIES: No pain, redness or swelling on the joints SKIN/INTEGUMENTARY: No rash and No itching NEUROLOGIC: No headaches and No seizures ENDOCRINE: No thyroid trouble and No history of diabetes EXAM: There were no vitals taken for this visit. The patient is a well-developed, well-nourished 78 year old male in no acute distress. HEENT: Head is normocephalic and atraumatic. There is no cervical lymphadenopathy. Cardiovascular: (+) irregular rate and rhythm Respiratory: Lungs are clear to auscultation bilaterally without wheezes, rales, or rhonchi. Abdomen: Soft, non-distended, nontender. Bowel sounds are present in all 4 quadrants. There are no masses or organomegaly noted. (+) colostomy present Extremities without edema or gross deformities. (+) 6 x 4 x 1.5 cm sacral wound. + fibrinous tissue. No surrounding erythema or purulent drainage. Skin: Warm, dry, without rashes or cyanosis. Patient is alert and oriented times three. Labs: Latest Reference Range & Units 08/28/23 11:43 Sodium 135 - 146 mmol/L 136 Potassium 3.5 - 5.1 mmol/L 4.3 Chloride 98 - 107 mmol/L 94 (L) CO2 22 - 32 mmol/L 30 BUN 6 - 20 mg/dL 37 (H) Creatinine 0.6 - 1.2 mg/dL 3.5 (H) Estimated Glomerular Filtration Rate >=60 mL/min 17 (L) Anion Gap 7 - 15 mmol/L 12 Glucose 70 - 120 mg/dL 80 Calcium 8.4 - 10.2 mg/dL 9.6 Protein 6.0 - 8.3 g/dL 6.5 Prealbumin 18 - 45 mg/dL 19 CBC Rpt ! CBC WITH WBC DIFFERENTIAL Rpt ! WBC 4.00 - 10.80 K/uL 6.70 HGB 14.0 - 16.8 g/dL 9.5 (L) HCT 40.0 - 48.4 % 30.6 (L) MCV 82.0 - 99.5 fL 107.4 PLT 140 - 400 K/uL 189 Absolute Neutrophils 1.80 - 7.70 K/uL 4.21 Absolute Lymphocytes 1.00 - 4.80 K/ul 0.76 (L) Absolute Monocytes 0.00 - 1.10 K/uL 0.78 Absolute Eosinophils 0.00 - 0.70 K/uL 0.86 (H) Absolute Basophils 0.00 - 0.20 K/uL 0.08 Albumin 3.8 - 5.0 g/dL 3.9 AST 10 - 50 U/L 25 ALT 10 - 50 U/L 24 Alkaline Phosphatase 35 - 130 U/L 139 (H) Bilirubin, Total <=1.2 mg/dL 0.7 (L): Data is abnormally low (H): Data is abnormally high !: Data is abnormal Rpt: View report in Results Review for more information EKG - 08/28/2023 CONCLUSIONS: Atrial fibrillation with premature ventricular or aberrantly conducted complexes Left axis deviation Left ventricular hypertrophy with secondary QRS widening No previous ECGs available Ventricular Rate: 70 Atrial Rate: 58 QRS Duration: 126 QT/QTc: 434/468 ms P-R-T Caraway: 0 : -63 : 83 degrees IMPRESSION: sacral wound PLAN: 1. The patient is scheduled for surgery on 09/05/2023. 2. Risks of the surgery were discussed with the patient including bleeding, infection, delayed wound healing, wound dehiscence, poor scarring, recurrence, flap necrosis, blood clots and need for additional procedures and consent was obtained. 3. The patient will be called by pre-admission testing for preoperative anesthesia evaluation. 4. Preoperative lab studies ordered: CBC, CMP, Pre-albumin, and EKG. 5. The patient was instructed to avoid all ASA products, Vit. E and/or herbal supplements for ten days preoperatively as well as any NSAIDS/ibuprofen products for at least 5 days preoperatively. Pt should not be on any oral steroids for at least 6 weeks prior to surgery. Pt instructed to hold Eliquis for 72 hrs pre op 6. Preoperative antibiotics, SCD's, and Tylenol were ordered. Michelle 8. 7. The patient will stay in the hospital the night of surgery. 8. Patient was not given a prescription for post op medication. 9. A post op appointment will be scheduled. 10. The patient was instructed to call if there are any changes, questions, or concerns prior to surgery date. 11. Will consult nephrology when admitted. Per pt's steel plate printer at [facility], HD access can be done in a lateral decubitus position. 12. Cardiology clearance for colostomy placement scanned in chart. EKG done today faxed to cardiology to confirm pt is cleared for surgery. 13. Pt is requesting neurosurgery consult while admitted - can consider after surgery. I spent a total of Greater than 55 mins (exact time 60 mins) on the date of service in preparation,delivery, and documentation of the care provided to Guanaco Escobedo excluding any time spent in the performance of separately billed services. Ankita Parekh PA-C 08/28/2023 Addendum: Per pt's steel plate printer at [facility], pt okay for dialysis on Friday, 09/06. Additional cardiology clearance scanned into pt's chart. Ankita Parekh PA-C documented in this encounter Consult Notes * Meredith Sifuentes MD - 09/05/2023 4:22 PM ESTAssociated Order(s): NEPHROLOGY CONSULT IP CONSULT - Nephrology [facility]-[address] [id number] Name: Guanaco Escobedo Location: OR [facility]/OR Date: 09/05/2023 Time: 4:22 PM REQUESTING SERVICE: Hospital Medicine REASON FOR CONSULT: ESRD on HD HPI: 78 year old year old male with pmhx significant for ESRD on HD (MWF at [place], sees Dr Paul, uses [facility]), BPH, hypertension, neurogenic bowel and bladder, history of dissecting AAA repair, dissection of thoracic aorta, paroxysmal Afib on Eliquis, stage IV sacral ulcer, wheelchair-bound, who was admitted to Medicine following irrigation and debridement of pressure ulcer; bone biopsy for sacral pressure ulcer, stage IV. Surgery was done today.He initially presented for flap reconstruction, but the procedure was converted to irrigation and debridement due to worsening appearance of his pressure ulcer. He was seen in PACU post-op today. His was present at the time of review. EBL 25cc. Nephrology consulted for continuation of dialysis. His last session of dialysis was 09/03/2023. He has been on dialysis for a year and half. Past surgical history: gastric bypass, dissecting AAA repair, bilateral total hip arthroplasty, right total knee arthroplasty, lumbar spinal fusion Family and social history reviewed Medications reviewed. Patient denies fever, headache, dizziness, chest pain, shortness of breath, abdominal pain, constipation, diarrhea, nausea, vomiting. PAST MEDICAL HISTORY: Past Medical History: Diagnosis Date Abdominal aortic aneurysm (AAA) ([facility]) 06/09/2021 BPH with obstruction/lower urinary tract symptoms 07/26/2021 Chronic kidney disease, stage IV (severe) ([facility]) 07/26/2021 Neurogenic bladder 07/26/2021 Primary hypertension 07/26/2021 PAST SURGICAL HISTORY: Past Surgical History: Procedure Laterality Date GASTRIC BYPASS FOR OBESITY IR BIOPSY 11/12/2022 NH AAA REPAIR, FEMORAL-FEMORAL GRAFT NH TOTAL HIP ARTHROPLASTY Bilateral NH TOTAL KNEE ARTHROPLASTY Right SPINAL FUSION, LUMBAR, COMBINED ALLERGIES: Morphine and Tetracycline FAMILY HISTORY: Family History Problem Relation Age of Onset Hypertension Father Prostate cancer Father Heart attack Father Diabetes Grandmother (Maternal) SOCIAL HISTORY: Social History Tobacco Use Smoking status: Never Smokeless tobacco: Never Vaping Use Vaping Use: Never used Substance Use Topics Alcohol use: Not on file Drug use: Not on file ROS: As above, otherwise all other ROS are negative PHYSICAL EXAMINATION: Most Recent Vital Signs: BP: 126 mmHg/69 mmHg (09/05/23 1600) Pulse: 68 (09/05/23 1500) Temp: 36.22 C (09/05/23 1329) Temp Summary: Temp Min: 36.2 C (97.2 F) Max: 36.3 C (97.3 F) SpO2: 100 % (09/05/23 1500) O2 flow rate: 10 L/MIN (09/05/23 1330) Supplemental O2 Delivery: Room Air, None (09/05/23 1600) Vital Signs Last 24 Hours: Systolic BP: Most Recent Systolic BP Av.4 mmHg Min: 106 mmHg Max: 136 mmHg Temperature: Most Recent Temperature Av.3 C Min: 36.22 C Max: 36.28 C Pulse: Pulse Av.6 Min: 60 Max: 68 Respirations: Resp Av.9 Min: 12 Max: 19 SpO2: SpO2 Av.3 % Min: 97 % Max: 100 % I&O Brief: Intake/Output Summary (Last 24 hours) at 09/05/2023 1622 Last data filed at 09/05/2023 1600 Gross per 24 hour Intake 700 ml Output 175 ml Net 525 ml Constitutional: No acute respiratory distress. HEENT: NCAT. No icterus CV: regular rate, regular rhythm Chest: normal respiratory effort, lungs clear on auscultation Abdomen: soft, no tenderness, nondistended Extremities: no LE edema. Skin: warm, dry Neuro: awake, alert, oriented Psych: appropriate mood Dialysis Access: LUE AVF Crowe catheter in place draining clear urine LABS: Labs reviewed as indicated below: CHEMISTRY: BUN, Creatinine, GFR Estimated, Sodium, Potassium, Chloride, Carbon Dioxide, Glucose, Calcium (see below for most recent value): Lab Results Component Value Date/Time BUN 61 (H) 09/05/2023 11:50 AM CREAT 4.2 (H) 09/05/2023 11:50 AM NA 136 09/05/2023 11:50 AM POTASSIUM 4.3 09/05/2023 11:50 AM CL 95 (L) 09/05/2023 11:50 AM CO2 26 09/05/2023 11:50 AM CA 9.3 09/05/2023 11:50 AM CREATININE: Creatinine (see below for last three most recent values): Lab Results Component Value Date/Time CREAT 4.2 (H) 09/05/2023 11:50 AM CREAT 3.5 (H) 08/28/2023 11:43 AM CREAT 3.6 (H) 09/25/2021 05:55 AM BLOOD COUNT: WBC, Hgb, Platelets (see below for most recent value): Lab Results Component Value Date/Time WBC 5.93 09/05/2023 11:50 AM HGB 8.9 (L) 09/05/2023 11:50 AM PLT 187 09/05/2023 11:50 AM HEMOGLOBIN: Hgb (see below for last three most recent values): Lab Results Component Value Date/Time HGB 8.9 (L) 09/05/2023 11:50 AM HGB 9.5 (L) 08/28/2023 11:43 AM HGB 12.2 (L) 11/04/2022 02:27 PM IMAGING: Reviewed. IMPRESSION: 78 year old year old male with pmhx significant for ESRD on HD (MWF at [place], sees Dr Paul, uses [facility] AVF), BPH, hypertension, neurogenic bowel and bladder, history of dissecting AAA repair, dissection of thoracic aorta, paroxysmal Afib on Eliquis, wheelchair-bound, stage IV sacral ulcer s/p irrigation and debridement of pressure ulcer; bone biopsy for stage IV sacral pressure ulcer on 09/05/2023. Calcium normal BP controlled/euvolemic Anemia of ESRD Plan: For HD tomorrow morning, orders placed Discussed with the primary team, he would be discharged after HD tomorrow Other aspects of his care per primary team Patient was seen, examined and reviewed with nephrology attending Dr. Menchaca Associated attestation - Vern Menchaca MD - 09/05/2023 7:58 PM EST I saw and evaluated the patient today. I have reviewed the trainee note and agree. documented in this encounter Nursing Notes * Miracle Greer RN - 09/06/2023 10:18 AM EST POST ASSESSMENT COMMUNICATION NOTE - HEMODIALYSIS Attention to: Solomon Parker RN Patient arriving via: Bed Time of Call: 10:18 AM Phone Ext.: [phone] Reason for SBAR handoff: Postdialysis treatment. Treatment: Prescribed treatment time: 3 hrs Duration of Treatment (minutes): 172 minutes (09/06/23 1002) Dialysis Treatment Less than Prescribed: NO Prescribed UF: 1-2L Dialysis: 1790 ml (09/06/23 1002) Reason prescribed UF was not achieved: NA Blood Returned: Yes Potassium Bath: As ordered initially, 3K+ 2.5 Ca then the sliding scale adjustments to 2K+ 2.5 Ca for the remainder of treatment. Post Dialysis Vitals: Temp: 35.9 C (96.6 F) (09/06/23 1002) Pulse: 72 (09/06/23 1002) Resp: 16 (09/06/231001) SpO2: 100 % (09/06/23 0300) O2 flow rate: 0 L/MIN (09/06/23 0300) Supplemental O2 Delivery: Room Air, None (09/06/231001) Pain Assessment Flowsheet Row Most Recent Value Pain Assessment Scale Sleeping Pain Score 0 (no pain) Pre BP Sittin/69 (09/06/23 0700) Post BP Sittin/79 (09/06/231001) Pre-Treatment Weight: 94.5 kg (208 lb 5.4 oz) (09/06/23 07) Post-Treatment Weight: 93.5 kg (206 lb 2.1 oz) (09/06/231001) Treatment Weight Change (kg): -1 kg (09/06/231001) Medications administered, see MAR/flowsheets for further information: None Access: Arteriovenous fistula, Left armneedle size 15G Function: Other: 14 min left before treatment ends, elevated arterial negative pressures then rinseback started Date/time to remove pressure dressin09/06/23 @ 1999 Dialysis Tx Tolerance: Tolerated well (09/06/231001) Patient educated on: N/A- chronic patient, education not required Additional patient needs/interventions during treatment: N/A Instructed to remove pressure dressing at 09/06/23 @ 1999. Transported to floor in stable condition. Primary nurse made aware via TT. Bhakti Metcalf RN - 09/06/2023 6:22 AM EST IP TO DIALYSIS HANDOFF COMMUNICATION NOTE Attention to: Miracle Donaldson Patient arriving via: Bed Time of Call: 0630 Phone Ext.: N/A Reason for SBAR handoff: Predialysis treatment. Neuro Assessment: Neurological: Neurological WNL Neuro WNL: WNL - within normal limits (09/05/232029) Level of Consciousness: Alert (09/05/232029) Orientation Level: Oriented x4 (09/05/232029) Cognition: Appropriate for age (09/05/232029) Speech: Clear (09/05/232029) Right Pupil Size (mm): 4 (09/05/23 1500) Right Pupil Shape/Description: Round (09/05/23 1500) Right Pupil Reaction: Reactive (09/05/23 1500) Left Pupil Size (mm): 4 (09/05/231499) Left Pupil Shape/Description: Round (09/05/231499) Left Pupil Reaction: Reactive (09/05/231499) Behaviors/Mood/Neuro Symptoms: Calm;Cooperative (09/05/232029) RUE Motor Strength: 4-Active movement with some resistance (09/05/23 1500) LUE Motor Strength: 4-Active movement with some resistance (09/05/231499) RLE Motor Strength: 3-Active movement against gravity (09/05/231499) LLE Motor Strength: 2-Active movement with gravity eliminated (09/05/231499) [place] Coma Scale Eyes Open: Spontaneous (09/05/232029) Best Verbal Response: Verbally appropriate for age (09/05/232029) Best Motor Response: Obeys commands appropriate for age (09/05/232029) Coma Score: 15 (09/05/232029) Additional Neurological Information: n/a Assessment: BP: 123/79 (09/06/23299) Temp: 36.5 C (97.7 F) (09/06/23299) Pulse: 67 (09/06/23299) Resp: 16 (09/06/23299) SpO2: 100 % (09/06/23299) O2 flow rate: 0 L/MIN (09/06/23299) Supplemental O2 Delivery: Non-Invasive CPAP/BiPAP (09/06/23299) Pain Assessment Flowsheet Row Most Recent Value Pain Assessment Scale Sleeping Pain Score 0 (no pain) Last dose of pain medication administered n/a time n/a Filiberto Score: Filiberto Score (auto-calculation): 17 (09/05/23 2300) Dialysis Access: Left arm fistula Continuous medications: n/a Labs needing collected: BMP/CMP @ 0600 How does the patient take their medications: Whole Emotional/Personal Events and Special Needs: n/a * Margaret Negrete NA - 09/05/2023 6:20 PM EST Post Anesthesia Care Unit Transport Note [facility] [address] Dept. Guanaco Escobedo Transported from [facility] to : [id number] Time: 1808 Care of patient transferred to: Solomon LAI Transported via: Bed Belongings with Patient: YES Pulse : 70 Temp : 97.6 BP : 149/45 Respirations : 18 Pulse Ox : 98 O2 : RA SCDS: On but not activated/no machine * Solomon Parker RN - 09/05/2023 6:20 PM EST Dual Licensed Skin Assessment completed by Solomon Parker RN and Saima Figueroa RN. The patient is/has a pressure injury on their torso - consider low air loss bed Skin Breakdown (includes non blanchable erythema): Yes. Wound Type: Suspected pressure injury at bony prominence, location sacrum Wound Ostomy Nurse Notified: Yes - notified via wound care protocol Nursing interventions: Low air loss bed, seen by wound care already * Lori Joyce RN - 09/05/2023 5:47 PM EST PERIOP TO IP HANDOFF COMMUNICATION NOTE [facility]-[address] [id number] Name: Guanaco Escobedo AGE: [id number] year old Location: OR [facility]/OR Date: 09/05/2023 Attention to: Solomon Parker, BP6 Report from: Lori Joyce RN Patient arriving via: Bed Time of call: 5:47 PM Phone Ext: [phone] Reason for SBAR (Situation, Background, Assessment, Recommendation) handoff: Transfer Sending to: [id number] Emotional/Personal Events & Special Needs: 78 year old man with stage 4 sacral decub was scheduled for flap closure today. Due to deterioration of the wound since last cflinic visit, the flap plan was aborted. Wound was irrigated and debrided and wet to dry dressing were applied. He is being admitted to have dialysis tomorrow morning and will be discharged after dialysis. He has not complained of pain. He is to be on his R side or L side only. May be prone, but he states he could not tolerate that. Prescriptions in chart: No Code Status: Full Code Safety Concerns: Post Aneshtesia Allergies: Morphine and Tetracycline PMH: Past Medical History: Diagnosis Date Abdominal aortic aneurysm (AAA) ([facility]) 06/09/2021 BPH with obstruction/lower urinary tract symptoms 07/26/2021 Chronic kidney disease, stage IV (severe) ([facility]) 07/26/2021 Neurogenic bladder 07/26/2021 Primary hypertension 07/26/2021 PSH: Past Surgical History: Procedure Laterality Date GASTRIC BYPASS FOR OBESITY IR BIOPSY 11/12/2022 NH AAA REPAIR, FEMORAL-FEMORAL GRAFT NH TOTAL HIP ARTHROPLASTY Bilateral NH TOTAL KNEE ARTHROPLASTY Right SPINAL FUSION, LUMBAR, COMBINED Isolation: Isolation: Procedure: Irrigation and debridement of Stage 4 sacral decub Type of Anesthesia: General endotracheal anesthesia Block: NA IV intake: 500 mL EBL: OR: 24 mL PACU: 0 mL Urine output: OR 0 mL PACU 100 mL IUBC (Crowe): YES Incision location: sacrum Dressing location: same Time of last skin assessment: 1400 Pressure injuries or areas of concern: Sacral decubitus ulcer for years. Lines: Urethral Catheter Coude (Active) Site Assessment Clean 09/05/23 1500 Securement Method Leg strap 09/05/23 1500 Catheter secured to leg? Yes 09/05/23 1500 Catheter bag below bladder? Yes 09/05/23 1500 Has IUBC been removed? (If yes, ensure the order is discontinued.) No, chronic indwelling catheter 09/05/23 1500 IUBC Tubing Disconnected This Shift? No 09/05/23 1500 Collection Container Standard drainage 09/05/23 1500 Urine Description Yellow 09/05/23 1500 Output (mL) 150 mL 09/05/23 1600 Number of days: 0 Peripheral Line Lower;Right Arm 18 Gauge (Active) Status Fluids infusing 09/05/23 1329 Tubing Changed N/A 09/05/23 1100 Phlebitis Scale 0 09/05/23 1329 Infiltration Scale 0 09/05/23 1329 Site Description (Other) Without redness, swelling or drainage 09/05/23 1329 Site Intervention None required 09/05/23 1329 Dressing Assessment Dressing clean, dry, and intact 09/05/23 1329 Dressing Intervention Applied 09/05/23 1100 Number of days: 0 Vital Signs: BP: 126/69 (09/05/23 1600) Temp: 36.2 C (97.2 F) (09/05/23 1329) Pulse: 68 (09/05/23 1500) Resp: 16 (09/05/23 1500) SpO2: 100 % (09/05/23 1500) O2 flow rate: 10 L/MIN (09/05/23 1330) Time of last pain medication: 1257 Med: Fentanyl Time of last antibiotic: 1214 Med: Ancef Time of last antiemetic: 1258 Med: Droperidol [employer]PORATE SECRETARY: no Drips: no Neurological: Speech: Clear (09/05/23 1500) Level of Consciousness: Alert (09/05/23 1500) RUE Motor Strength: 4-Active movement with some resistance (09/05/23 1500) RLE Motor Strength: 3-Active movement against gravity (09/05/23 1500) LUE Motor Strength: 4-Active movement with some resistance (09/05/23 1500) LLE Motor Strength: 2-Active movement with gravity eliminated (09/05/23 1500) Coma Score: 15 (09/05/23 1500) Respiratory: Respiratory WNL: X - Exceptions to WNL as documented below (09/05/23 132) Cough: None (09/05/23 1500) Depth/Rhythm: Regular (09/05/23 1500) Dyspnea Occurance: None (09/05/23 1500) Effort: Unlabored (09/05/23 1500) Oxygen therapy/ Mechanical vent O2 flow rate: 10 L/MIN (09/05/23 1330) Supplemental O2 Delivery: Room Air, None (09/05/23 1600) Cardiac: Cardiovascular WNL: X - Exceptions to WNL as documented below (09/05/23 1500) Heart Sounds: S1;S2 (09/05/23 1028) Rhythm: AFib (09/05/23 1500) Extremities: +Sensation (09/05/23 1500) Pulses Right: Dorsalis Pedis +;Radial + (09/05/23 1500) Pulses Left: Dorsalis Pedis + (09/05/23 1500) Capillary Refill: 3 sec (09/05/23 1500) GI: GI WNL: X - Exceptions to WNL as documented below (Stoma LLQ) (09/05/23 1500) Abdomen: Soft;Non-tender (09/05/23 1500) Bowel Sounds: Present (09/05/23 1500) : WNL: X - Exceptions to WNL as documented below (09/05/23 1500) Urine Description: Clear;Yellow (09/05/23 1500) Urethral Catheter Coude (Active) Site Assessment Clean 09/05/231499 Securement Method Leg strap 09/05/231499 Catheter secured to leg? Yes 09/05/23 1500 Catheter bag below bladder? Yes 09/05/231499 Has IUBC been removed? (If yes, ensure the order is discontinued.) No, chronic indwelling catheter 09/05/231499 IUBC Tubing Disconnected This Shift? No 09/05/231499 Collection Container Standard drainage 09/05/231499 Urine Description Yellow 09/05/231499 Output (mL) 150 mL 09/05/23 1600 Number of days: 0 Due to Void: Chronic Crowe Integumentary:Integumentary WNL: WNL - within normal limits (09/05/23 1500) Skin Description: Warm;Dry (09/05/23 1500) Skin Color: Flesh Tone (09/05/23 1500) Skin Lesion: Other - Describe (09/05/23 1329) Interventions: Other - Describe (Ordering lo airloss mattress) (09/05/23 1329) Family updated on transfer: yes Additional Assessment Information: Transporting via [facility] bed. * Pete Linton RN - 09/05/2023 10:25 AM EST Dual Licensed Skin Assessment completed by Ernesto Linton RN and Natasha Katz RN. The patient is/has a paraplegic/quadriplegic - consider low air loss bed Skin Breakdown (includes non blanchable erythema): Yes. Wound Type: Suspected pressure injury at bony prominence, location Sacrum , Also has small scabbed areas on dorsum of hands and left forearm. Wound Ostomy Nurse Notified: No - care per ordered treatment - this skin issue is to be addressed at today's surgery. Nursing interventions: turn and reposition at least q2h. * Jonathan Robbins RN - 09/03/2023 3:57 PM EST NO ANESTHESIA EVAL REQUESTED PER CASE DOCUMENTATION. PREOP PATIENT INFORMATION AND EDUCATION: MEDICATION INSTRUCTIONS: The day of surgery/procedure, you may TAKE the following medications with a sip of water up to 2 hours prior to your arrival time: Oxycodone/acetaminophen if needed OR Hydrocodone/acetaminophen if needed Nortriptyline Alprazolam if needed Atorvastatin Gabapentin Metoprolol Minoxidil AVOID/ DO NOT TAKE any medications the morning of surgery/procedure that are not listed above. STOP taking the following medications the noted number of days prior to surgery/procedure unless otherwise specified by your surgeon: Please follow surgeon's instructions regarding use of Aspirin, Coumadin, Plavix, Eliquis, and any other blood thinner including NSAIDs (non-steroidal anti- inflammatory drugs, eg, Advil, Ibuprofen, Motrin, Aleve, Naproxen); if you have any questions regarding your anticoagulation therapy please contact your surgeon's clinic. Please verify any proposed stoppage of your anticoagulation therapy with the agent's prescribing provider. 10 days prior to surgery/procedure Stop all Herbal supplements, Green Tea, Turmeric, Melatonin, CBD, THC, etc. Stop all Vitamins (including Vitamin E) 24 hours prior to surgery/procedure DO NOT consume any alcohol. DO NOT use medical marijuana. DO NOT smoke or use tobacco products of any kind after midnight prior to surgery. *Using any of these products may increase your risks of procedural complications. IF IT IS LESS THAN RECOMMENDED STOPPAGE TIME PLEASE STOP AT TIME OF NOTIFICATION. FASTING RECOMMENDATIONS: To reduce risk, it is important for all elective surgery patients to follow the specific fasting guidelines listed below. If you have received more stringent guidelines, please follow the MOST RESTRICTIVE guidelines that you have been provided. DO NOT EAT after midnight on the night prior to your surgery date. You are allowed to drink clear liquids up to two hours prior to arrival time to the hospital or surgery center. Examples of clear liquids include water, clear fruit juice without pulp, clear carbonated beverages, clear tea, and black coffee. Any drinks given by your surgical service take as directed. /pediatric patients who currently drink breast milk, infant formula, and non-human milk must not eat after midnight. These patients are allowed to drink only the liquids listed below up to two hours prior to arrival time to the hospital or surgery center: Ingested Material Minimum Fasting Time Clear liquid After midnight up to 2 hours prior to arrival time Breast milk Up to 4 hours prior to arrival time formula Up to 6 hours prior to arrival time Non-human milk Up to 6 hours prior to arrival time THE DAY BEFORE YOUR SURGERY: -Drink plenty of fluid the day before your surgery. Contact your surgeon's office if you develop any of the following within 2 weeks of surgery: A cold Infection Fever Shingles Chicken pox or exposure to chicken pox Open areas such as scrapes, cuts, dempsey or other skin conditions Rashes GENERAL INSTRUCTIONS FOR PREPARING FOR SURGERY: BATHING INSTRUCTIONS: Bathe the evening prior to and the morning of surgery/procedure. Cleanse your body using ONLY anti-bacterial soap (eg, Dial, Safeguard) or any specific soap/cleansers and instructions provided by your surgeon (eg, Chlorhexidine). -You should brush your teeth the morning of surgery. Do NOT apply any lotions, powders, sprays, creams, oils, make-up, or deodorants after bathing. No hairspray, or nail german on fingers or toes. Day of surgery/procedure do not use tampons. If you wear contacts wear your eyeglasses if available otherwise bring your contact supplies with you to remove them prior to your surgery/procedure. If you wear glasses or dentures, please bring cases in which you can store them during your surgery. Please remove all piercings and jewelry and leave them at home. Wear comfortable and loose clothing. -Please leave all valuables at home. -If you use a CPAP and are staying overnight, please bring your mask and tubing with you to the hospital. -If you use an assistive mobility device (walker, cane, etc), please label it with your name and bring to hospital. -An escort local company flatbed truck driver is required if you are being discharged the same day of the surgery. You should have a responsible adult over the age of 18 [address] you home. This person should be present with youin the hospital at the time of discharge and for the first 24 hours after the surgery to support your needs. If you are taking a taxi home, you must have your responsible alliance party accompany you in the taxi ride home at the time of discharge. OR times subject to change. Please check voicemail messages the day/evening before your surgery forany updates. PRE-OP: You will be taken to the pre-op area where your vital signs (blood pressure, pulse and temperature)will be taken. Any preparations that need to be done will be done there. When it is time for your surgery, you will be taken to the operating room. PARENTS OF PEDIATRIC PATIENTS WILL BE ALLOWED TO STAY WITH THEIR CHILDREN UNTIL THEY ARE ESCORTED TO THE OPERATING ROOM OUTPATIENT SURGERY PATIENTS: After your surgery you will be taken to the Same Day Surgery Unit when you are awake and will go home from there. You will get instructions about your home care before you leave. Arrange to have someone drive you home from the hospital. You may not drive for 24 hours after anesthesia. You must havean adult stay with you at home for 24 hours after your operation. This is very important. If you are not able to comply with these guidelines, your Short Stay surgery cannot be done. ADMISSION PATIENTS: After your stay in the recovery area, you will be taken to your room. Your family may visit you in your room based on current visitation policy. If a next day discharge is expected, it is important to make arrangements for a local company flatbed truck driver to take you home. Please be aware our visitation policies are subject to change Professionals, attendants, caregivers or family members are allowable visitors for patients with intellectual, developmental or cognitive disabilities, communication barriers or behavioral concerns. Because patients' and families' needs vary, they will be taken into account when applying visitation restrictions. [facility]: Contact # [phone] Directions to Surgical Suite in from the [facility] Entrance The Surgical Waiting Room can be found in the Lobby [facility]. [facility] and the Waiting Room is directly in front of you. Proceed to check in and give them your name. Directions to Surgical Suite from the East Entrance Enter the East entrance and follow the hallway to the J elevator. Take the J elevator up to Level 1. [facility] The [facility]ing Room will be on your Right. Proceed to check in and give them your Name. Directions to Surgical Suite from the Parking Garage Enter the [facility] lobby and proceed down the parks to the left. At the end of the parks, turn right. Continue down the long hallway to the main [facility] Lobby. The Surgical Waiting Room will be on your Right. Proceed to check in and give them your Name. THANK YOU FOR CHOOSING [facility]! Pre-operative chart review completed-instructions provided based on current medication list in [facility] Presurgery instructions sent to patient via [employer] message. documented in this encounter Miscellaneous Notes * Care Plan - Bhakti Simons RN - 09/06/2023 2:22 AM EST Clinical Goal(s): patient will have adequate pain control this shift (09/05/23 2300) Possible barriers to meeting goal(s)/advancing plan of care: None Stability of the patient: Moderately stable - low risk of patient condition declining or worsening Summary regarding today's goal(s): Met: adequate pain control Recommendations: HD, Wound care BID, crowe care * Communication - Niles Urbano PA-C - 09/05/2023 3:04 PM EST WOUND CARE COMMUNICATION NOTE Patient not seen today. 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 He has had a sacral pressure injury since 2020 that had failed to make progress despite wound care and offloading. He also had a diverting colostomy. He presented to hospital for plastic surgery for sacral ulcer debridement with fasciocutaneous flap reconstruction, however their team decided with patient that he would better be served with D&I w/bone bx for evaluation for OM and continued follow up with our wound clinic until wound is fully ready for reconstruction. Patient taken to OR today by Dr. Keys for irrigation and debridement of pressure ulcer; bone biopsy. Plan: Will plan to see on Friday 09/08 if patient still admitted. If not, will have patient scheduled for f/u appt with Dr. Chong outpatient as he had seen patient in 12/2022 for the Stage 4 sacral pressure wound. Defer wound care to plastic surgery until our service can evaluate. Niles Urbano PA-C 09/05/2023 3:16 PM documented in this encounter Plan of Treatment Pending Results Name Type Priority Associated Diagnoses Date /Time CULTURE,FUNGUS,NON-DERM Lab Routine Pressure injury of sacral region, stage 4 (HCC) 09/05/2023 12:56 PM EST CULTURE, AFB Lab Routine Pressure injury of sacral region, stage 4 (HCC) 09/05/2023 12:56 PM EST CULTURE, TISSUE, AEROBIC AND ANAEROBIC Lab Routine 09/05/2023 12:57 PM EST CULTURE, TISSUE, AEROBIC AND ANAEROBIC Lab Routine 09/05/2023 12:56 PM EST Health Maintenance Due Date Last Done Comments Depression Screening 1957 AAA Monitoring 1964 Hepatitis C Screening 1963 Nephrology Referral 1963 PTH 1964 Phosphate 1964 Zoster Vaccines (3 of 3) 03/22/2020 020, 01/26/2020, 09/23/2014 COVID-19 Vaccine ( season) 2023 07/05/2022, 05/08/2022, 10/22/2021, Additional history exists Influenza Vaccine (FLU shot) (#1) 2023 04/29/2022, 03/09/2022, 05/11/2021, Additional history exists Hgb 09/06/2024 09/06/2023, 0203/2024, 08/28/2023, Additional history exists DTaP,Tdap,and Td Vaccines (5 - Td or Tdap) 01/25/2030 01/26/2020, 01/26/2020, 08/08/2019, Additional history exists Pneumococcal Vaccine: 65+ Years Completed 05/09/2021, 05/11/2016, 05/06/2012 Hepatitis B Completed 05/14/2023, 0812/2022, 02/12/2023, Additional history exists GARDASIL-HPV IMMUNIZATION SERIES Aged Out No longer eligible based on patient's age to complete this topic MENINGOCOCCAL (MENACTRA/MENVEO) Aged Out No longer eligible based on patient's age to complete this topic documented as of this encounter Medical Devices Not on filedocumented as of this encounter Procedures Procedure Name Priority Date/Time Associated Diagnosis Comments BASIC METABOLIC PANEL Routine 09/06/2023 7:17 AM EST CBC Routine 09/06/2023 7:17 AM EST SARS-COV-2 (COVID-19), NAAT STAT 09/05/2023 2:20 PM EST CULTURE, TISSUE, AEROBIC AND ANAEROBIC Routine 09/05/2023 12:57 PM EST CULTURE, TISSUE, AEROBIC AND ANAEROBIC Routine 09/05/2023 12:56 PM EST CULTURE, AFB Routine 09/05/2023 12:56 PM EST Pressure injury of sacral region, stage 4 (HCC) CULTURE,FUNGUS,NON- DERM Routine 09/05/2023 12:56 PM EST Pressure injury of sacral region, stage 4 (HCC) BASIC METABOLIC PANEL STAT 09/05/2023 11:50 AM EST CBC STAT 09/05/2023 11:50 AM EST documented in this encounter Results * (ABNORMAL) CBC (09/06/2023 7:17 AM EST) WBC 6.12 4.00 - 10.80 K/uL 09/06/2023 7:51 AM EST [facility] RBC 2.46 4.50 - 5.25 M/uL 09/06/2023 7:51 AM EST [facility] HGB 8.1(L) 14.0 - 16.8 g/dL 09/06/2023 7:51 AM EST [facility] HCT 25.8(L) 40.0 - 48.4 % 09/06/2023 7:51 AM EST [facility] MCV 104.9 82.0 - 99.5 fL 09/06/2023 7:51 AM EST [facility] MCH 32.9 27.0 - 34.0 pg 09/06/2023 7:51 AM EST [facility] MCHC 31.4 32.0 - 36.0 g/dL 09/06/2023 7:51 AM EST [facility] RDW 17.3 11.5 - 15.5 % 09/06/2023 7:51 AM EST [facility] PLT 170 140 - 400 K/uL 09/06/2023 7:51 AM EST [facility] MPV 9.2 6.6 - 11.1 fL 09/06/2023 7:51 AM EST [facility] nRBCs 0 <=0 /100 WBCs 09/06/2023 7:51 AM EST [facility] Blood Venous blood specimen / Unknown Venipuncture / Unknown 09/06/2023 7:17 AM EST 09/06/2023 7:40 AM EST Alena Cruz DO LAB BLOOD ORD ERABLES [facility] [address] [place] [address] * (ABNORMAL) BASIC METABOLIC PANEL (09/06/2023 7:17 AM EST) BUN 71(H) 6 - 20 mg/dL 09/06/2023 8:09 AM EST [facility] Creatinine 5.1(H) 0.6 - 1.2 mg/dL 09/06/2023 8:09 AM EST [facility] Estimated Glomerular Filtration Rate 11(L) >=60 mL/min 09/06/2023 8:09 AM EST [facility] Comment:eGFR is calculated b ased on the CKD-EPI 2020 equation Sodium 137 135 - 146 mmol/L 09/06/2023 8:09 AM EST [facility] Potassium 4.6 3.5 - 5.1 mmol/L 09/06/2023 8:09 AM EST [facility] Chloride 97(L) 98 - 107 mmol/L 09/06/2023 8:09 AM EST [facility] CO2 25 22 - 32 mmol/L 09/06/2023 8:09 AM EST [facility] Anion Gap 15 7 - 15 mmol/L 09/06/2023 8:09 AM EST [facility] Glucose 82 70 - 120 mg/dL 09/06/2023 8:09 AM EST [facility] Calcium 8.9 8.4 - 10.2 mg/dL 09/06/2023 8:09 AM EST LABORATORY [facility] Blood Venous blood specimen / Unknown Venipuncture / Unknown 09/06/2023 7:17 AM EST 09/06/2023 7:23 AM EST Alena Cruz DO LAB BLOOD ORD ERABLES LAB[facility] [address] [place] [address] * SARS-COV-2 (COVID-19), NAAT (09/05/2023 2:20 PM EST) SARS-CoV-2 (COVID-19) Result Negative Negative 09/05/2023 4:55 PM EST LABORATORY [facility] Comment: 2019 Novel Coronavirus not detected. This express test was developed and its performance characteristics determined by [facility]. It has not been cleared or approved by the U.S. Food and Drug Administration (FDA). FDA does not require this test to go thru premarket FDA review. This test is used for clinical purposes. It should not be regarded as investigational or for research. This laboratory is certified under the Clinical Laboratory Improvement Amendments (CLIA) as qualified to perform high complexity clinical laboratory testing. This test is a nucleic acid amplification test (NAAT), a reverse transcriptase polymerase chain reaction (RT-PCR) test, or a Centers for Disease Control- acceptable equivalent. The test is performed in a high complexity Clinical Laboratory Improvement Amendments-(CLIA) certified laboratory. The test is acceptable for SARS-CoV-2 diagnosis, surveillance, and travel within the [place] and to most countries. Please check with local testing authorities about requirements before travel. The validation of bronchial specimens, tracheal aspirates, and sputum for this assay was developed and performance characteristics determined by [facility]. The validation of alternate specimen types has not been cleared or approved by the U.S. Food and Drug Administration (FDA). It has been determined that such clearance is not necessary. Upper Respiratory Mid-turbinate nasal swab / Unknown Non-blood Collection / Unknown 09/05/2023 2:20 PM EST 09/05/2023 3:20 PM EST Ankita Parekh PA-C LAB MICRO - GEN ERAL ORDERABLES Performing Organization Address City/[facility]/ZIP Co de Phone Number [facility] [address] [place] [address] * (ABNORMAL) CBC (09/05/2023 11:50 AM EST) WBC 5.93 4.00 - 10.80 K/uL 09/05/2023 12:29 PM EST [facility] RBC 2.76 4.50 - 5.25 M/uL 09/05/2023 12:29 PM EST [facility] HGB 8.9(L) 14.0 - 16.8 g/dL 09/05/2023 12:29 PM EST [facility] HCT 29.5(L) 40.0 - 48.4 % 09/05/2023 12:29 PM EST [facility] MCV 106.9 82.0 - 99.5 fL 09/05/2023 12:29 PM EST [facility] MCH 32.2 27.0 - 34.0 pg 09/05/2023 12:29 PM EST [facility] MCHC 30.2 32.0 - 36.0 g/dL 09/05/2023 12:29 PM EST [facility] RDW 17.6 11.5 - 15.5 % 09/05/2023 12:29 PM EST [facility] PLT 187 140 - 400 K/uL 09/05/2023 12:29 PM EST [facility] MPV 9.0 6.6 - 11.1 fL 09/05/2023 12:29 PM EST [facility] nRBCs 0 <=0 /100 WBCs 09/05/2023 12:29 PM EST [facility] Blood Venous blood specimen / Unknown Venipuncture / Unknown 09/05/2023 11:50 AM EST 09/05/2023 12:07 PM EST Sofia Lowe MD LAB BLOOD ORDE MARY Performing Organization Address City/[facility]/ZIP Co de Phone Number [facility] [address] [place] [address] * (ABNORMAL) BASIC METABOLIC PANEL (09/05/2023 11:50 AM EST) BUN 61(H) 6 - 20 mg/dL 09/05/2023 12:36 PM EST [facility] Creatinine 4.2(H) 0.6 - 1.2 mg/dL 09/05/2023 12:36 PM EST [facility] Estimated Glomerular Filtration Rate 14(L) >=60 mL/min 09/05/2023 12:36 PM EST [facility] Comment:eGFR is calculated b ased on the CKD-EPI 2020 equation Sodium 136 135 - 146 mmol/L 09/05/2023 12:36 PM EST [facility] Potassium 4.3 3.5 - 5.1 mmol/L 09/05/2023 12:36 PM EST [facility] Chloride 95(L) 98 - 107 mmol/L 09/05/2023 12:36 PM EST [facility] CO2 26 22 - 32 mmol/L 09/05/2023 12:36 PM EST [facility] Anion Gap 15 7 - 15 mmol/L 09/05/2023 12:36 PM EST [facility] Glucose 86 70 - 120 mg/dL 09/05/2023 12:36 PM EST [facility] Calcium 9.3 8.4 - 10.2 mg/dL 09/05/2023 12:36 PM EST [facility] Blood Venous blood specimen / Unknown Venipuncture / Unknown 09/05/2023 11:50 AM EST 09/05/2023 12:07 PM EST Sofia Lowe MD LAB BLOOD MARY HERNANDE[facility] Organization Address City/State/ZIP Co de Phone Number [facility] [address] [place] [address] documented in this encounter Visit Diagnoses Diagnosis Pressure injury of sacral region, stage 4 (HCC)- Primary Sacral ulcer (HCC) Pressure ulcer, lower back Chest pain Chest pain, unspecified ESRD on dialysis (HCC) End stage renal disease Neurogenic bladder Neurogenic bladder, NOS BPH with obstruction/lower urinary tract symptoms Hypertrophy of prostate with urinary obstruction and other lower urinary tract symptoms (LUTS) Primary hypertension Unspecified essential hypertension Anemia of chronic renal failure, stage 4 (severe) (HCC) AVF (arteriovenous fistula) (HCC) Arteriovenous fistula, acquired documented in this encounter Administered Medications Inactive Administered Medications - up to 3 most recent administrations Medication Order MAR Action Action Date Dose Rate Site Acetaminophen (Tylenol) tab 975 mg 975 mg, Oral, PREOP, First dose on Fri09/05/23 at 1100, Last dose on Fri09/05/23 at 1100, For 1 dose, Maximum 4 g acetaminophen/day. Avoid in patients with severe hepatic impairment or severe active liver disease. Administer 60 minutes prior to OR., Pre-Op Given 09/05/2023 10:52 AM EST 975 mg Acetaminophen (Tylenol) tab 975 mg 975 mg, Oral, Q8H PRN Pain, Mild, Pain, Moderate, Starting on Fri09/05/23 at 1503, Until Fri09/06/23 at 1618, Maximum of 4 grams (4000 mg) per day. ALPRAZolam (xaNAX) tab 0.25 mg 0.25 mg, Oral, HS PRN Anxiety, Sleep, Starting on Fri09/05/23 at 2352, Until Fri09/06/23 at 1618 Given 09/06/2023 12:01 AM EST 0.25 mg Apixaban (Eliquis) tab 2.5 mg 2.5 mg, Oral, BID (.AM/PM), First dose on Fri09/06/23 at 0900, Until Discontinued Given 09/06/2023 11:08 AM EST 2.5 mg atorvaSTATin (Lipitor) tab 20 mg 20 mg, Oral, Daily(AM), First dose on Fri09/06/23 at 0900, Until Discontinued Given 09/06/2023 11:09 AM EST 20 mg Gabapentin (Neurontin) cap 600 mg 600 mg, Oral, HS, First dose on Fri09/05/23 at 2200, Until Discontinued Given 09/05/2023 8:44 PM EST 600 mg metoprolol succinate XL (toPROL XL) tab 25 mg 25 mg, Oral, Daily(AM), First dose on 09/06/23 at 0900, Until Discontinued, Hold for HR less than 60 or SBP below 100 and notify service if dose is held This med should NOT be Crushed or Chewed. Given 09/06/2023 11:08 AM EST 25 mg nortriptyline (Pamelor) cap 25 mg 25 mg, Oral, QHS, First dose on 09/06/23 at 2200, Until Discontinued oxyCODONE (Oxy IR) tab 5 mg 5 mg, Oral, Q4H PRN Pain, Severe, Starting on Fri09/05/23 at 1446, Until 09/06/23 at 1618 sodium chloride 0.9 % flush/inj 3 mL 3 mL, IV Push, PRN Other, Line Patency, Starting on Fri09/05/23 at 1425, Until 09/06/23 at 1618, Do not flush if lock, PICC, or central line not in place, IV infusing or unable to flush sodium citrate 4% (Anticoagulant Sodium Citrate) inj 3 mL 3 mL, Dialysis catheter, ON DIALYSIS, Starting on Fri09/05/23 at 1620, Until 09/06/23 at 1618, For 1 dose, Use only by dialysis nurse- For use only to lock dialysis catheter after dialysis documented in this encounter Active and Recently Administered Medications Times are shown in EST. Scheduled Medication Order 09/04/2023 09/05/2023 09/06/2023 Acetaminophen (Tylenol) tab 975 mg (COMPLETED) 975 mg, Oral, PREOP, First dose on Fri09/05/23 at 1100, Last dose on Fri09/05/23 at 1100, For 1 dose, Maximum 4 g acetaminophen/day. Avoid in patients with severe hepatic impairment or severe active liver disease. Administer 60 minutes prior to OR., Pre-Op 1052 (Given - Provider: Pete Linton RN) Apixaban (Eliquis) tab 2.5 mg 2.5 mg, Oral, BID (.AM/PM), First dose on 09/06/23 at 0900, Until Discontinued 1108 (Given - Provid er: Solomon Parker RN) atorvaSTATin (Lipitor) tab 20 mg 20 mg, Oral, Daily(AM), First dose on 09/06/23 at 0900, Until Discontinued 1109 (Given - Provid er: Solomon Parker RN) ceFAZolin in dextrose (Ancef) ivpb 2 g 2 g, IV Piggyback, PREOP, 1 dose, First dose on Fri09/05/23 at 1100, Administer 60 minutes prior to skin incision, Pre-Op 1100 (OR/Procedure - Provider: Lori Joyce RN) Gabapentin (Neurontin) cap 600 mg 600 mg, Oral, HS, First dose on Fri09/05/23 at 2200, Until Discontinued 2043 (Given - Provider: Bhakti Simons RN) metoprolol succinate XL (toPROL XL) tab 25 mg 25 mg, Oral, Daily(AM), First dose on 09/06/23 at 0900, Until Discontinued, Hold for HR less than 60 or SBP below 100 and notify service if dose is held This med should NOT be Crushed or Chewed. 1108 (Given - Provid er: Solomon Parker RN) nortriptyline (Pamelor) cap 25 mg 25 mg, Oral, QHS, First dose on 09/06/23 at 2200, Until Discontinued sodium citrate 4% (Anticoagulant Sodium Citrate) inj 3 mL 3 mL, Dialysis catheter, ON DIALYSIS, Starting on Fri09/05/23 at 1620, Until 09/06/23 at 1618, For 1 dose, Use only by dialysis nurse- For use only to lock dialysis catheter after dialysis PRN Medication Order 09/04/2023 09/05/2023 09/06/2023 Acetaminophen (Tylenol) tab 975 mg 975 mg, Oral, Q8H PRN Pain, Mild, Pain, Moderate, Starting on Fri09/05/23 at 1503, Until 09/06/23 at 1618, Maximum of 4 grams (4000 mg) per day. ALPRAZolam (xaNAX) tab 0.25 mg 0.25 mg, Oral, HS PRN Anxiety, Sleep, Starting on Fri09/05/23 at 2352, Until 09/06/23 at 1618 0001 (Given - Provid er: Bhakti Simons RN) ceFAZolin 1,000 mg, gentamicin 40 mg in sodium chloride IR 0.9 % 3,000 mL irrigation (CANCELED) ONCE PRN INTRA PROCEDURE, Starting on Fri09/05/23 at 1305, Until Fri09/05/23 at 1328, Intra-Op 1305 (Given - Provider: Sofia Lowe MD - Comment: procedure-related) chlorhexidine gluconate 0.05% (IRRISEPT) irrigation (CANCELED) ONCE PRN INTRA PROCEDURE, Starting on Fri09/05/23 at 1312, Until 09/05/23 at 1328, Intra-Op 1312 (Given - Provider: Sofia Lowe MD - Comment: procedure-related) oxyCODONE (Oxy IR) tab 5 mg 5 mg, Oral, Q4H PRN Pain, Severe, Starting on Fri09/05/23 at 1446, Until 09/06/23 at 1618 sodium chloride 0.9 % flush/inj 3 mL 3 mL, IV Push, PRN Other, Line Patency, Starting on Fri09/05/23 at 1425, Until 09/06/23 at 1618, Do not flush if lock, PICC, or central line not in place, IV infusing or unable to flush sodium chloride IR 0.9 % irrigation (CANCELED) ONCE PRN INTRA PROCEDURE, Starting on Fri09/05/23 at 1305, Until Fri09/05/23 at 1328, Intra-Op 1305 (Given - Provider: Sofia Lowe MD - Comment: procedure-related, PRN) documented in this encounter Advance Directives Latest [...] Discussed due to patient's condition Care Teams Crystal Cutter Relationship Specialty Start Date End Date Jasiel Pineda DO [address] [place] [address] PCP - General Family Medicine 09/25/21 documented as of this encounter
--- OUTSIDE RECORDS SUMMARY | 2023-09-24 13:49 | External Medical Summary ---
Author Name Unknown Address Unknown Organization K01:LABORATORY [facility] [place] - [address] [facility] [address] Laboratory Report Ordering Provider Test Date Status JESSICA BECKER 09/06/2023 07:17:59 Final Observation Date Value Abnormality Reference (Units ) Status WBC, Total 09/06/2023 07:17:59 6.12 4.00-10.80 (K/uL) Final RBC 09/06/2023 07:17:59 2.46 4.50-5.25 (M/uL) Final Hemoglobin 09/06/2023 07:17:59 8.1 Below low normal 14.0-16.8 (g/dL) Final HCT 09/06/2023 07:17:59 25.8 Below low normal 40.0-48.4 (%) Final MCV 09/06/2023 07:17:59 104.9 82.0-99.5 (fL) Final MCH 09/06/2023 07:17:59 32.9 27.0-34.0 (pg) Final MCHC 09/06/2023 07:17:59 31.4 32.0-36.0 (g/dL) Final RDW 09/06/2023 07:17:59 17.3 11.5-15.5 (%) Final Platelets 09/06/2023 07:17:59 170 140-400 (K/uL) Final MPV 09/06/2023 07:17:59 9.2 6.6-11.1 (fL) Final Nucleated erythrocytes/100 leukocytes [Ratio] in Blood by Automated count 09/06/2023 07:17:59 0 <=0 (/100 WBCs) Final Performing Location LABORATORY C - [address] [facility] [address]
--- OUTSIDE RECORDS SUMMARY | 2023-09-24 13:49 | External Medical Summary | Summary of Care ---
Author Name Unknown Organization [facility] Address [address] [place] [address] Phone [phone] Care Team Providers Care Sap Hana Developer Name Role Phone Edwin Jasiel Marshallmond Primary Care Provider [phone] Reason for Visit * Reason Onset Date Comments Wound Care Hospital Follow-Up 09/23/2023 Encounter Details Date Type Department Care Team (Late st Contact Info) Description 09/23/2023 11:20 AM EST Office Visit Wound Care, [place] [address] [place] [address] Kyle Chong MD [address] [place] [address] Stage 4 skin ulcer of sacral region [...] HCl 137 MCG/SPRAY Nasal Solution Administer 1 [place] into each nostril every night at bedtime. [...] Plastics and saline packing as instructed by [facility]. Today, presents with cyst of R upper back as well. Surgical Hx: - irrigation and debridement of pressure ulcer; bone biopsy by Dr Keys 09/05/23 CULTURE, TISSUE, AEROBIC AND ANAEROBIC Order: [id number] Status: Final result Visible to patient: Yes [...] 4 skin ulcer of sacral region ([facility]) L98.429 2. Chronic kidney disease, stage IV (severe) ([facility]) N18.4 3. Paroxysmal atrial fibrillation ([facility]) I48.0 4. Abscess of back L02.212 Sacral [...] 09/23/2023 12:20 PM EST Laboratory Outpatient Laboratory, [place] [address] [place] [address] [place], Lab [address] [place] [address] Osteomyelitis of sacrum (HCC) 10/17/2023 11:00 AM EDT Telemedicine Infectious Disease [address] [address] Sia French MD [address], [place] [id number] Scheduled Orders Name Type Priority Associated Diagnoses Orde r Schedule CULTURE, WOUND, DEEP, AEROBIC Lab Routine Abscess of back Ordered: 09/23/2023 Health Maintenance Due Date Last Done Comments Depression Screening 1957 AAA Monitoring 1963 Hepatitis C Screening 1963 Zoster Vaccines (3 of 3) 03/22/2020 020, 01/26/2020, 09/23/2014 COVID-19 Vaccine (2022- season) 2023 07/05/2022, 05/08/2022, 10/22/2021, Additional history [...] Discussed due to patient's condition Care Teams Sap Hana Developer Relationship Specialty Start Date End Date Jasiel Pineda DO [address] [place] [address] PCP - General Family Medicine 09/25/21 documented as of this encounter
--- OUTSIDE RECORDS SUMMARY | 2023-09-24 13:49 | External Medical Summary | Summary of Care ---
Author Name Unknown Organization [facility] Address [address] [place] [address] Phone [phone] Care Team Providers Care Linen Controller Name Role Phone Jasiel Pinedamond Primary Care Provider [phone] Reason for Referral * Evaluate & Treat - Unlimited Visits (Within 10 days (routine)) - Authorized Specialty Diagnoses / Procedures Referred By Contac t Referred To Contact Infectious Diseases / Infectious Disease Diagnoses Pressure injury of sacral region, stage 4 ([facility]) Sofia Lowe MD [address] [place] [address] Referral ID Status Reason Start Date Expiration Date Visits Requested Visits Authorized [id number] Authorized Specialty Services Required 09/11/[phone] Question Answer Referral Priority Within 10 days (routine) Where should this appointment be scheduled? Mis What condition is the patient being seen for? All Other Conditions Comments Stage IV pressure ulcer with bone biopsies growing E. coli, referral for appropriate antibiotic treatment prior to reconstruction. Prefer [place]. Encounter Details Date Type Department Care Team (Late st Contact Info) Description 09/11/2023 Telephone [facility] Plastic Surgery [address] [place] [address] Sofia Lowe MD [address] [place] [address] Allergies Active Allergy Reactions Criticality Noted Date Comments Morphine Nausea/vomiting 06/09/2021 Other reaction(s): Vomiting Tetracycline 06/09/2021 Other reaction(s): Hives documented as of this encounter (statuses as of 09/11/2023) Medications Medication Sig Dispensed Refills Start Date End Date Status Vitamin D 50 MCG (1999) Oral Capsule Take 2,000 Units by mouth daily. 0 Active Azelastine HCl 137 MCG/SPRAY Nasal Solution Administer 1 [place] into each nostril every night at bedtime. [...] as of this encounter (statuses as of 09/11/2023) Active Problems Problem Noted Date Diagnosed Date [...] as of this encounter (statuses as of 09/11/2023) Resolved Problems Problem Noted Date Diagnosed Date Resolved Date Nail finding 06/09/2021 08/02/2021 Osteoarthritis of left hip 06/09/2021 1 Pain of right lower extremity 06/09/2021 07/26/2021 Sacroiliitis 05/30/2021 08/02/2021 documented as of this encounter (statuses as of 09/11/2023) Social History Tobacco Use Types Packs/Day Years [...] encounter Miscellaneous Notes * Telephone Encounter - Sofia Lowe MD - 09/11/2023 8:45 AM EST I called Sylvester and spoke with his , Gabbi, to inform them of the results of the bone biopsies taken last week. They were positive for E. Coli, indicating occult osteomyelitis that needs to be treated prior to reconstruction and likely contributes to his wound not healing appropriately. We discussed the next steps, which will be an outpatient referral to Infectious Disease (they prefer [facility] as they live in [place]) for discussion of appropriate antibiotic therapy. Sofia Lowe MD Plastic & Reconstructive Surgery Resident - PGY-4 documented in this encounter Plan of Treatment Upcoming Encounters Date Type Department Care Team (Late st Contact Info) Description 09/23/2023 11:20 AM EST Office Visit Wound Care, [place] [address] [place] [address] Kyle Chong MD [address] [place] [address] Scheduled Referrals Name Type Priority Associated Diagnoses Orde r Schedule INFECTIOUS DISEASE REFERRAL OP Referral Within 10 days (routine) Pressure injury of sacral region, stage 4 (HCC) Ordered: 09/11/2023 Health Maintenance Due Date Last Done Comments Depression Screening 1957 AAA Monitoring 1963 Hepatitis C Screening 1963 Nephrology Referral 1963 PTH 1964 Phosphate 1963 Zoster Vaccines (3 of 3) 03/22/2020 020, 01/26/2020, 09/23/2014 COVID-19 Vaccine (2022-24 season) 2023 07/05/2022, 05/08/2022, 10/22/2021, Additional history exists Influenza Vaccine (FLU shot) (#1) 2023 04/29/2022, 03/09/2022, 05/11/2021, Additional history exists Hgb 09/06/2024 09/06/2023, 03/2024, 08/28/2023, Additional history exists DTaP,Tdap,and Td Vaccines [...] as of this encounter Visit Diagnoses Diagnosis Pressure injury of sacral region, stage 4 (HCC)- Primary documented in this encounter Advance Directives Latest [...] Discussed due to patient's condition Care Teams Linen Controller Relationship Specialty Start Date End Date Jasiel Pineda DO [address] [place] [address] PCP - General Family Medicine 09/25/21 documented as of this encounter
--- OUTSIDE RECORDS SUMMARY | 2023-09-24 13:49 | External Medical Summary | Summary of Care ---
Author Name Unknown Organization [facility] Address [address] [place] [address] Phone [phone] Care Team Providers Care Project Facilitator Name Role Phone Edwin Jasieltrice Lama Primary Care Provider [phone] Reason for Visit * Reason Comments Follow Up Osteomyelitis * Evaluate & Treat - Unlimited Visits (Within 10 days (routine)) - Authorized Specialty Diagnoses / Procedures Referred By Contac t Referred To Contact Infectious Diseases / Infectious Disease Diagnoses Pressure injury of sacral region, stage 4 (HCC) Sofia Lowe MD [address] [place] [address] Referral ID Status Reason Start Date Expiration Date Visits Requested Visits Authorized [id number] Authorized Specialty Services Required 09/11/[phone] Encounter Details Date Type Department Care Team (Latest Contact Info) Description 09/16/2023 11:40 AM EST Office Visit Infectious Disease [address] [address] Jamin Bender MD [address] [place] [address] Osteomyelitis of sacrum (HCC)* Allergies Active Allergy Reactions Criticality Noted Date Comments Morphine Nausea/vomiting 06/09/2021 Other reaction(s): Vomiting Tetracycline 06/09/2021 Other reaction(s): Hives documented as of this encounter (statuses as of 09/22/2023) Medications Medication Sig Dispensed Refills Start Date End Date Status Vitamin D 50 MCG (1999) Oral Capsule Take 2,000 Units by mouth daily. 0 Active Azelastine HCl 137 MCG/SPRAY Nasal Solution Administer 1 [place] into each nostril every night at bedtime. 0 08/02/2021 Active HYDROcodone-Acetami nophen 5-325 MG Oral TabletIndications:I nfected pressure ulcer, stage IV (HCC),Other acute osteomyelitis, other site (HCC) Take 1 Tablet by mouth every 12 hours as needed for Pain, Moderate or Pain, Severe. Ongoing therapy 30 Tablet 0 08/16/2021 Active ALPRAZolam 0.25 MG Oral Tablet (xaNAX)Indications: PTSD (post-traumatic stress disorder) Take by mouth 1 Tablet as needed before bedtime for Anxiety or Sleep. 15 Tablet 0 09/25/2021 Active Atorvastatin Calcium 20 MG Oral Tablet (Lipitor)Indication s:Hyperlipidemia, unspecified hyperlipidemia type Take by mouth 1 Tablet in the morning. 30 Tablet 0 09/25/2021 Active Apixaban 2.5 MG Oral Tablet (Eliquis)Indication s:Paroxysmal atrial fibrillation (HCC) Take by mouth 1 Tablet in the morning AND 1 Tablet before bedtime. 60 Tablet 0 09/25/2021 Active Metoprolol Succinate ER 25 MG Oral Tablet Extended Release 24 Hour (Toprol XL)Indications:Pole Shaver gudelia congestive heart failure, unspecified heart failure type (HCC),Paroxysmal atrial fibrillation (HCC) Take by mouth 1 Tablet in the morning. 30 Tablet 0 09/25/2021 Active Nephrocaps 1 MG Oral Capsule Take 1 Capsule by mouth in the morning. 0 Active Nortriptyline HCl 25 MG Oral Capsule (Pamelor) 0 11/08/2022 Active Gabapentin 300 MG Oral Capsule (Neurontin) at bedtime. 2 tablets 0 08/23/2023 Active FiberCon 625 MG Oral Tablet (Calcium Polycarbophil)Indic ations:Loose stools Take by mouth 2 Tablets in the morning. with 8 ounces of water.. 60 Tablet 0 09/25/2021 4 Discontinue d(Patient preference/ discontinua tion) Gabapentin 100 MG Oral Capsule (Neurontin)Indicati ons:Chronic midline low back pain with left-sided sciatica,Synovial cyst of lumbar spine Take by mouth 2 Capsules before bedtime. 60 Capsule 0 09/25/2021 4 Discontinue d(Medicatio n/Dose Changed) documented as of this encounter (statuses as of 09/22/2023) Active Problems Problem Noted Date Diagnosed Date [...] as of this encounter (statuses as of 09/22/2023) Resolved Problems Problem Noted Date Diagnosed Date Resolved Date Nail finding 06/09/2021 08/02/2021 Osteoarthritis of left hip 06/09/2021 1 Pain of right lower extremity 06/09/2021 07/26/2021 Sacroiliitis 05/30/2021 08/02/2021 documented as of this encounter (statuses as of 09/22/2023) Social History Tobacco Use Types Packs/Day Years [...] Sign Reading Time Taken Comments Blood Pressure 92/59 09/16/2023 11:23 AM EST Pulse 69 09/16/2023 11:23 AM EST Temperature 36.5 C (97.7 F) 09/16/2023 11:[address] Respiratory Rate 18 09/16/2023 11:23 AM EST Oxygen Saturation - - Inhaled Oxygen Concentration - - Weight 79 kg (174 lb 2.6 oz) 09/16/2023 11:23 AM EST Height - - Body Mass Index 23.62 09/05/2023 9:34 AM EST documented in this [...] as of this encounter Progress Notes * Jamin Bender MD - 09/15/2023 9:46 AM EST Guanaco Escobedo is a 78 year old male referred for evaluation of sacral OM. 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 He was recently hospitalized 09/05-09/06/23 for the sacral wound. He had I&D of the sacral wound w/o reconstruction (2/9/24: down to bone w/ sacral tissue cultures growing C albicans, E coli, PSA, and Enterococcus and sacral bone culture, chaudhry-S E coli). There was a plan for fasciocutaneous flap but that never took place because of the poor wound condition ("purple wound edges secondary to pressure") w/ expected poor healing. Off-loading was recommended but not adequately done, yet. So, the wound is being monitored. He has [facility] home care at home. He is currently on no abx therapy. He has no sensation in sacral area. No f/c or n/v. No specific complaint. Review of patient's allergies indicates: Allergen Reactions Morphine Nausea/vomiting Other reaction(s): Vomiting Tetracycline Other reaction(s): Hives Current Outpatient Medications Medication Sig Dispense Refill Vitamin D 50 MCG (1999 UT) Oral Capsule Take 2,000 Units by mouth daily. Azelastine HCl 137 MCG/SPRAY Nasal Solution Administer 1 [place] into each nostril every night at bedtime. [...] 1 Tablet before bedtime. 60 Tablet 0 FiberCon 625 MG Oral Tablet (Calcium Polycarbophil) Take by mouth 2 Tablets in the morning. with 8 ounces of water.. 60 Tablet 0 Gabapentin 100 MG Oral [...] Nortriptyline HCl 25 MG Oral Capsule (Pamelor) No current facility-administered medications for this visit. 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 Dissection of thoracic aorta ([facility]) I71.019 Synovial cyst of lumbar spine M71.38 Pressure injury of sacral region, stage 4 ([facility]) L89.154 Infected pressure ulcer, stage IV ([facility]) L89.94, L08.9 Bacteremia R78.81 Chronic kidney disease, stage IV (severe) ([facility]) N18.4 Neurogenic bowel K59.2 Neurogenic bladder N31.9 Primary hypertension I10 BPH with obstruction/lower urinary tract symptoms N40.1, N13.8 Paroxysmal atrial fibrillation ([facility]) I48.0 Anemia of chronic renal failure, stage 4 (severe) ([facility]) N18.4, D63.1 Abdominal aortic aneurysm (AAA) without rupture ([facility]) I71.40 PTSD (post-traumatic stress disorder) F43.10 ESRD on dialysis ([facility]) N18.6, Z99.2 AVF (arteriovenous fistula) ([facility]) I77.0 SHx: no smoking, no EtOH, no marijuana/illicit drugs FHx: non contributory ROS: No fevers, sweats, anorexia, weight loss, chronic diarrhea, [place] or SOB; as above and all others negative OBJECTIVE: BP 92/59 | Pulse 69 | Temp 36.5 C (97.7 F) | Resp 18 | Wt 79 kg (174 lb 2.6 oz) | BMI 23.62 kg/m | BSA 2 m PHYSICAL EXAM: General: alert and no distress Head: Normocephalic, No masses, lesions, tenderness or abnormalities Eye Exam: extraocular movements intact, conjunctiva are pink and non-injected, sclera clear Heart: no murmur, no gallops, S-1 normal, S-2 normal, and irregularly irregular rhythm Lungs: chest symmetric with normal AP diameter, no chest deformities noted, normal respiratory rateand rhythm, no chest wall tenderness, lungs clear to auscultation Abdomen: abdomen soft, non-tender, normal bowel sounds, and no masses or organomegaly, ostomy in place Extremities: no joint deformities, effusion, or inflammation, no edema, no clubbing, no cyanosis Neuro Exam: alert & oriented x 3 with fluent speech Skin: skin color, texture, turgor are normal, no rashes or significant lesions, LUE AFV w/ bruit but no erythema or tenderness Unable to examine sacrum today given no appropriate table in the exam room Labs WBC 6.12K H 8.1 Plt 170K (09/06/23): Cr 5.1 LFT unremarkable (08/28/23) Sacral tissue (09/05/23): E coli (chaudhry-S), PSA (I to cefep, cipro; R to ceftazidim, lvq, zosyn; S to meropenem, tobra), Enterococcus (S to amp, vanco) Sacrum bone (09/05/23): E coli (chaudhry-S) ASSESSMENT: Chronic, recalcitrant stage IV sacral decubitus ulcer (since 2020) post I&D of the sacral woundw/o reconstruction (09/05/23) Hx of SRD on HD via LUE AVF (MWF) PLAN: - Start meropenem 1 gm q24 hours 30 min infusion (administered after dialysis on dialysis days) andvancomycin iv to maintain AUC 400-600 - Check CRP for baseline (this can be done next week when she visits wound clinic) and every other week while on abx therapy - Weekly labs w/ CBC w/ diff, CMP and vanco level weekly while abx therapy - Total 6 weeks of abx recommended - Nephrology prefers a tunneled catheter but if not doable for any reason, PICC is fine. The patient prefers to have the procedure done in [place], [place]. Due to high transportation cost for the patient, it is very important that they get either TDC or PICC in [facility]. - Discussed possible side effects of abx - I recommended probiotic while on abx. - Continue off-loading as much as possible w/ aggressive wound care to promote healing - Will communicate w/ ID nurse navigator for coordination of line placement and treatment Follow up: in 4 week(s) w/ video visit I spent a total of 40-54 minutes (exact time 50 mins) on the date of service in preparation, delivery, and documentation of the care provided to Guanaco Escobedo excluding any time spent in the performance of separately billed services. Jamin Bender MD Infectious Disease [address] [address] documented in this encounter Nursing Notes * Eliana Seymour, RN - 09/16/2023 11:22 AM EST Chief Complaint Patient presents with Follow Up Osteomyelitis Pt went for reconstructive surgery on pressure ulcer, bone bx done due to appearance showed E coli and surgery cx. documented in this encounter Miscellaneous Notes * Addendum Note - Jamin Bender MD - 09/22/2023 6:20 PM ESTAddended by: JAMIN BENDER on: 09/22/2023 06:20 PM Modules accepted: Level of Service documented in this encounter Plan of Treatment Upcoming Encounters Date Type Department Care Team (Late st Contact Info) Description 09/23/2023 11:20 AM EST Office Visit Wound Care, [place] [address] [place] [address] Kyle Chong MD [address] [place] [address] 10/17/2023 11:00 AM EDT Telemedicine Infectious Disease [address] [phone] Sia French MD [address] [place] [address] Scheduled Orders Name Type Priority Associated Diagnoses Orde r Schedule CRP ([facility]FL[facility]ORY [facility]ER) Lab Routine Osteomyelitis of sacrum (HCC) Expected: 09/16/2023, Expires: 09/16/2024 Health Maintenance Due Date Last Done Comments [...] Discussed due to patient's condition Care Teams Project Facilitator Relationship Specialty Start Date End Date Jasiel Pineda DO [address] [place] [address] PCP - General Family Medicine 09/25/21 documented as of this encounter
--- OUTSIDE RECORDS SUMMARY | 2023-09-24 13:49 | External Medical Summary | Summary of Care ---
Author Name Unknown Organization [facility] Address [address] [place] [address] Phone [phone] Care Team Providers Care Chief Analytics Officer Name Role Phone Edwin Jasieltrice Lama Primary Care Provider [phone] Reason for Visit * Reason Comments Follow Up Osteomyelitis * Evaluate & Treat - Unlimited Visits (Within 10 days (routine)) - Authorized Specialty Diagnoses / Procedures Referred By Contac t Referred To Contact Infectious Diseases / Infectious Disease Diagnoses Pressure injury of sacral region, stage 4 (HCC) Sofia Lowe MD [address] [place] [address] Referral ID Status Reason Start Date Expiration Date Visits Requested Visits Authorized [id number] Authorized Specialty Services Required 09/11/[phone] Encounter Details Date Type Department Care Team (Latest Contact Info) Description 09/16/2023 11:40 AM EST Office Visit Infectious Disease [address] [address] Jamin Young MD [address] [place] [address] Osteomyelitis of sacrum (HCC)* Allergies Active Allergy [...] HCl 137 MCG/SPRAY Nasal Solution Administer 1 [place] into each nostril every night at bedtime. 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 He has [facility] home care at home. He is currently [...] HCl 137 MCG/SPRAY Nasal Solution Administer 1 [place] into each nostril every night at bedtime. 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.019 Synovial cyst of lumbar spine M71.38 Pressure injury of sacral region, stage 4 ([facility]) L89.154 Infected pressure ulcer, stage IV ([facility]) L89.94, L08.9 Bacteremia R78.81 Chronic kidney disease, stage IV (severe) ([facility]) N18.4 Neurogenic bowel K59.2 Neurogenic bladder N31.9 Primary hypertension I10 BPH with obstruction/lower urinary tract symptoms N40.1, N13.8 Paroxysmal atrial fibrillation ([facility]) I48.0 Anemia of chronic renal failure, stage 4 (severe) ([facility]) N18.4, D63.1 Abdominal aortic aneurysm (AAA) without rupture ([facility]) I71.40 PTSD (post-traumatic stress disorder) F43.10 ESRD on dialysis ([facility]) N18.6, Z99.2 AVF (arteriovenous fistula) ([facility]) I77.0 SHx: no smoking, no EtOH, no [...] prefers to have the procedure done in [place], [place]. Due to high transportation cost for the patient, it is very important that they get either TDC or PICC in [facility]. - Discussed possible side effects of [...] the performance of separately billed services. Jamin Young MD Infectious Disease [address] [address] documented in this encounter Nursing Notes * Eliana Seymour, RN - 09/16/2023 11:22 AM EST Chief Complaint Patient presents with Follow Up Osteomyelitis Pt went for reconstructive surgery on pressure ulcer, bone bx done due to appearance showed E coli and surgery cx. documented in this encounter Plan of Treatment Upcoming Encounters Date Type Department Care Team (Late st Contact Info) Description 09/23/2023 11:20 AM EST Office Visit Wound Care, [place] [address] [place] [address] Kyle Chong MD [address] [place] [address] 10/17/2023 11:00 AM EDT Telemedicine Infectious Disease [place] [address] [place] [address] Sia French MD [address] [place], [place] [id number] Scheduled Orders Name Type Priority Associated Diagnoses [...] Discussed due to patient's condition Care Teams Chief Analytics Officer Relationship Specialty Start Date End Date Jasiel Pineda DO [address] [facility] [address] [place] [address] PCP - General Family Medicine 09/25/21 documented as of this encounter
--- OUTSIDE RECORDS SUMMARY | 2023-09-24 13:49 | External Medical Summary | Summary of Care ---
Author Name Unknown Organization [facility] Address [address] [place] [address] Phone [phone] Care Team Providers Care Gelatin Maker Utility Name Role Phone Edwin Jasiel Kelby Primary Care Provider [phone] Reason for Visit * Reason Comments Outpatient Testing Encounter Details Date Type Department Care Team (Late st Contact Info) Description 09/23/2023 12:20 PM EST Laboratory Outpatient Laboratory, [facility] [address] [place] [address] [facility] Lab B1a [address] [place] [address] Osteomyelitis of sacrum (HCC) Allergies Active Allergy Reactions Criticality Noted Date Comments Morphine Nausea/vomiting 06/09/2021 Other reaction(s): Vomiting Tetracycline 06/09/2021 Other reaction(s): Hives documented as of this encounter (statuses as of 09/23/2023) Medications Medication Sig Dispensed Refills Start Date End Date Status Vitamin D 50 MCG (1999) Oral Capsule Take 2,000 Units by mouth daily. 0 Active Azelastine HCl 137 MCG/SPRAY Nasal Solution Administer 1 [place] into each nostril every night at bedtime. [...] No 09/05/2023 documented as of this encounter Plan of Treatment Upcoming Encounters Date Type Department Care Team (Late st Contact Info) Description 10/17/2023 11:00 AM EDT Telemedicine Infectious Disease [address] [address] Sia French MD [address] [place] [address] Pending Results Name Type Priority Associated Diagnoses Date /Time CRP (INFL[facility]MATORY [facility]ER) Lab Routine Osteomyelitis of sacrum (HCC) 09/23/2023 11:13 AM EST Health Maintenance Due Date Last Done [...] encounter Visit Diagnoses Diagnosis Osteomyelitis of sacrum (HCC) Unspecified osteomyelitis, other [...] Discussed due to patient's condition Care Teams Gelatin Maker Utility Relationship Specialty Start Date End Date Jasiel Pineda DO [address] [facility] [address], [place] [address] PCP - General Family Medicine 09/25/21 documented as of this encounter
--- OUTSIDE RECORDS SUMMARY | 2023-09-24 13:50 | External Medical Summary ---
Author Name Unknown Address Unknown Organization [id number]:[facility] [place] - [address] [facility] [address] Laboratory Report Ordering Provider Test Date Status SARINA AGUILAR 08/28/2023 11:43:30 Final Observation Date Value Abnormality Reference (Units ) Status WBC, Total 08/28/2023 11:43:30 6.70 4.00-10.80 (K/uL) Final RBC 08/28/2023 11:43:30 2.85 4.50-5.25 (M/uL) Final Hemoglobin 08/28/2023 11:43:30 9.5 Below low normal 14.0-16.8 (g/dL) Final HCT 08/28/2023 11:43:30 30.6 Below low normal 40.0-48.4 (%) Final MCV 08/28/2023 11:43:30 107.4 82.0-99.5 (fL) Final MCH 08/28/2023 11:43:30 33.3 27.0-34.0 (pg) Final MCHC 08/28/2023 11:43:30 31.0 32.0-36.0 (g/dL) Final RDW 08/28/2023 11:43:30 17.9 11.5-15.5 (%) Final Platelets 08/28/2023 11:43:30 189 140-400 (K/uL) Final MPV 08/28/2023 11:43:30 9.2 6.6-11.1 (fL) Final Nucleated erythrocytes/100 leukocytes [Ratio] in Blood by Automated count 08/28/2023 11:43:30 0 <=0 (/100 WBCs) Final Performing Location [facility] - [address] [facility] [address]
--- OUTSIDE RECORDS SUMMARY | 2023-09-24 13:50 | External Medical Summary ---
Author Name Unknown Address Unknown Organization [id number]:[facility] [place] - [address] [facility] [address] Laboratory Report Ordering Provider Test Date Status MATTEO PITTS 09/05/2023 11:50:00 Final Observation Date Value Abnormality Reference (Units ) Status WBC, Total 09/05/2023 11:50:00 5.93 4.00-10.80 (K/uL) Final RBC 09/05/2023 11:50:00 2.76 4.50-5.25 (M/uL) Final Hemoglobin 09/05/2023 11:50:00 8.9 Below low normal 14.0-16.8 (g/dL) Final HCT 09/05/2023 11:50:00 29.5 Below low normal 40.0-48.4 (%) Final MCV 09/05/2023 11:50:00 106.9 82.0-99.5 (fL) Final MCH 09/05/2023 11:50:00 32.2 27.0-34.0 (pg) Final MCHC 09/05/2023 11:50:00 30.2 32.0-36.0 (g/dL) Final RDW 09/05/2023 11:50:00 17.6 11.5-15.5 (%) Final Platelets 09/05/2023 11:50:00 187 140-400 (K/uL) Final MPV 09/05/2023 11:50:00 9.0 6.6-11.1 (fL) Final Nucleated erythrocytes/100 leukocytes [Ratio] in Blood by Automated count 09/05/2023 11:50:00 0 <=0 (/100 WBCs) Final Performing Location [facility] [place] - [address] [place] [address]
--- OUTSIDE RECORDS SUMMARY | 2023-09-24 13:50 | External Medical Summary | Summary of Care ---
Author Name Unknown Organization [facility] Address [address] [place] [address] Phone [phone] Care Team Providers Care Check Writer Salesperson Name Role Phone Edwin Jasiel Kelby Primary Care Provider [phone] Reason for Visit * Reason Comments Outpatient Testing Encounter Details Date Type Department Care Team (Late st Contact Info) Description 08/28/2023 12:50 PM EST Laboratory Outpatient Laboratory, [facility] [address] [place] [address] [facility], Lab B1a [address] [place] [address] Arrived Allergies Active Allergy Reactions Criticality Noted Date Comments Morphine Nausea/vomiting 06/09/2021 Other reaction(s): Vomiting Tetracycline 06/09/2021 Other reaction(s): Hives documented as of this encounter (statuses as of 08/28/2023) Medications Medication Sig Dispensed Refills Start Date End Date Status Vitamin D 50 MCG (1999) Oral Capsule Take 2,000 Units by mouth daily. 0 Active Azelastine HCl 137 MCG/SPRAY Nasal Solution Administer 1 [place] into each nostril every night at bedtime. [...] the morning. 30 Tablet 0 09/25/2021 Active Minoxidil 10 MG Oral Tablet (Loniten)Indications :Primary hypertension Take by mouth 1 Tablet in the morning. 30 Tablet 0 09/25/2021 Active Additional Information Patient not taking.Reported on 08/28/2023 Nephrocaps 1 MG Oral Capsule Take 1 Capsule by mouth in the morning. 0 Active Sevelamer Carbonate 800 MG Oral Tablet (Renvela) 0 10/31/2022 Active Nortriptyline HCl 25 MG Oral Capsule (Pamelor) 0 11/08/2022 Active Sodium Hypochlorite 0.25 % External SolutionIndications: Stage 4 skin ulcer of sacral region (HCC),Chronic kidney disease, stage IV (severe) (HCC),Paroxysmal atrial fibrillation (HCC) Apply topically to affected area daily. 473 mL 2 01/02/2023 Active Additional Information Patient not taking.Reported on 08/28/2023 oxyCODONE-Acetaminop hen 5-325 MG Oral Tablet Take 1 Tablet by mouth every 4 hours as needed. 0 Active Ciprofloxacin HCl 250 MG Oral Tablet (Cipro) Take 1 Tablet by mouth in the morning and 1 Tablet before bedtime. 0 Active documented as of this encounter (statuses as of 08/28/2023) Active Problems Problem Noted Date Diagnosed Date Paroxysmal atrial fibrillation 08/02/2021 Anemia of chronic [...] as of this encounter (statuses as of 08/28/2023) Resolved Problems Problem Noted Date Diagnosed Date Resolved Date Nail finding 06/09/2021 08/02/2021 Osteoarthritis of left hip 06/09/2021 1 Pain of right lower extremity 06/09/2021 07/26/2021 Sacroiliitis 05/30/2021 08/02/2021 documented as of this encounter (statuses as of 08/28/2023) Social History Tobacco Use Types Packs/Day Years Used Date Smoking Tobacco: Never Smokeless Tobacco: Never Sex and Gender Information Value Date Recorded Sex Assigned at Not on file Gender Identity Not on file Sexual Orientation Not on file Job Start Date Occupation Industry Not on file Not on file Not on file documented as of this encounter Plan of Treatment Upcoming Encounters Date Type Department Care Team (Latest Contact Info) Description 08/28/2023 12:00 PM EST Cardiac Studies [facility]iac Studies [facility], [place] [address] [place] [address] [facility], E[facility] [address] [place] [address] Pressure injury of sacral region, stage 4 (HCC) 09/05/2023 7:15 AM EST Hospital Encounter OR [facility], OPERATING ROOM [facility] [address] [place] [address] Otis Keys MD [address] [place] [address] 09/05/2023 7:15 AM EST - 09/05/2023 11:10 AM EST Surgery OR [facility], OPERATING ROOM [facility] [address] [place] [address] Otis Keys MD [address] [place], [place] [id number] EXCISION SACRAL PRESSURE ULCER WITH OSTECTOMY PREFLAP Scheduled Procedures Name Priority Associated Diagnoses Date/Ti me EXCISION SACRAL PRESSURE ULCER WITH OSTECTOMY PREFLAP Pressure injury of sacral region, stage 4 (HCC) 09/05/2023 7:15 AM EST MUSCLE MYOCUTANEOUS OR FASCIOCUTANEOUS FLAP LOWER EXTREMITY Pressure injury of sacral region, stage 4 (HCC) 09/05/2023 7:15 AM EST Health Maintenance Due Date Last Done Comments Depression Screening 1957 AAA Monitoring 1964 Albumin/Creatinine Ratio 1963 Hepatitis C Screening 1963 Nephrology Referral 1963 PTH 1964 Phosphate 1964 Zoster Vaccines (3 of 3) 03/22/2020 020, 01/26/2020, 09/23/2014 GFR 03/28/2022 09/25/2021, 08/29, 09/11/2021, Additional history exists COVID-19 Vaccine ( season) 2023 07/05/2022, 05/08/2022, 10/22/2021, Additional history exists Influenza Vaccine (FLU shot) (#1) 2023 04/29/2022, 03/09/2022, 05/11/2021, Additional history exists Hgb 11/05/2023 11/04/2022, 08/28, 09/05/2021, Additional history exists DTaP,Tdap,and Td Vaccines (5 [...] Not on filedocumented as of this encounter Care Teams Check Writer Salesperson Relationship Specialty Start Date End Date Jasiel Pineda DO [address] [place] [address] PCP - General Family Medicine 09/25/21 documented as of this encounter
--- OUTSIDE RECORDS SUMMARY | 2023-09-24 13:50 | External Medical Summary ---
Author Name Unknown Address Unknown Organization K01:[facility] [place] - [address] [facility] [address] Laboratory Report Ordering Provider Test Date Status SARINA AGUILAR 09/05/2023 14:20:35 Final SCREENING Observation Date Value Abnormality Reference (Units ) Status SARS Coronavirus 2 09/05/2023 14:20:35 Negative N egative Final 2019 Novel Coronavirus not d etected.

This express test was developed and its performance characteristics determined by [email or web address]. It has not been cleared or approved [...] (RT-PCR) test, or a Centers for Disease Control-acceptable equivalent. The test is performed in a high complexity Clinical Laboratory Improvement Amendments-(CLIA) certified laboratory. The test is acceptable for SARS-CoV-2 diagnosis, surveillance, and travel within the [place] and to most countries. Please check with local testing authorities about requirements before travel.

The validation of bronchial specimens, tracheal aspirates, and sputum for this assay was developed and performance characteristics determined by [email or web address]. The validation of alternate specimen types has not been cleared or approved by the U.S. Food and Drug Administration (FDA). It has been determined that such clearance is not necessary. Performing Location [facility] - [address] [facility] [address]
--- OUTSIDE RECORDS SUMMARY | 2023-09-24 13:50 | External Medical Summary | Summary of Care ---
Author Name Unknown Organization [facility] Address [address] [place] [address] Phone [phone] Care Team Providers Care Entrepreneurial Finance Professor Name Role Phone Jasiel Pineda DO Primary Care Provider [phone] Reason for Visit * Reason Comments H&P Surgery Encounter Details Date Type Department Care Team (Late st Contact Info) Description 08/28/2023 10:45 AM EST Office Visit Plastic Surgery, [facility] [address] [place], [place] [phone] Ankita Parekh PA-C [address] [place], [place] [phone] Nurse [facility] [address] [place], [place] [phone] Pressure injury of sacral region, stage 4 (HCC)* Allergies Active Allergy Reactions Criticality Noted Date Comments Morphine Nausea/vomiting 06/09/2021 Other reaction(s): Vomiting Tetracycline 06/09/2021 Other reaction(s): Hives documented as of this encounter (statuses as of 08/29/2023) Medications Medication Sig Dispensed Refills Start Date End Date Status Vitamin D 50 MCG (1999) Oral Capsule Take 2,000 Units by mouth daily. 0 Active Azelastine HCl 137 MCG/SPRAY Nasal Solution Administer 1 [place] into each nostril every night at bedtime. [...] as of this encounter (statuses as of 08/29/2023) Active Problems Problem Noted Date Diagnosed Date [...] as of this encounter (statuses as of 08/29/2023) Resolved Problems Problem Noted Date Diagnosed Date Resolved Date Nail finding 06/09/2021 08/02/2021 Osteoarthritis of left hip 06/09/2021 1 Pain of right lower extremity 06/09/2021 07/26/2021 Sacroiliitis 05/30/2021 08/02/2021 documented as of this encounter (statuses as of 08/29/2023) Social History Tobacco Use Types Packs/Day Years [...] Sign Reading Time Taken Comments Blood Pressure 112/70 08/28/2023 10:06 AM EST Pulse 70 08/28/2023 10:06 AM EST Temperature 36.7 C (98 F) 08/28/2023 10:06 AM EST Respiratory Rate 18 08/28/2023 10:06 AM EST Oxygen Saturation - - Inhaled Oxygen Concentration - - Weight 79 kg (174 lb 2.6 oz) 08/28/2023 10:06 AM EST Height 182.9 cm (6') 08/28/2023 10:06 AM EST Body Mass Index 23.62 08/28/2023 10:06 AM EST documented in this encounter Progress Notes * Ankita Parekh PA-C - 08/28/2023 10:26 AM EST PLASTIC SURGERY HISTORY AND PHYSICAL 08/28/2023 HPI: Patient is a 78 year old male who presents today for a preoperative history and physical. Patient has been seen by Oits Keys MD for evaluation of sacral wound. [...] The patient met with Dr. Chong from [facility] on 01/02/2023 and was switched to daily wet-to-dry Dakin's dressings. They note some modest improvement of the wound on this regimen. He has since followed up with the [facility] clinic, who switched his dressings [...] a ROHO cushion for his motorized wheelchair. Heis constantly moving and repositioning. They have not [...] HCl 137 MCG/SPRAY Nasal Solution Administer 1 [place] into each nostril every night at bedtime. [...] right wrist M19.031 Dissection of thoracic aorta (HCC) I71.019 Synovial cyst of lumbar spine M71.38 Pressure injury of sacral region, stage 4 (HCC) L89.154 Infected pressure ulcer, stage IV (HCC) L89.94, L08.9 Bacteremia R78.81 Chronic kidney disease, stage IV (severe) (HCC) N18.4 Neurogenic bowel K59.2 Neurogenic bladder N31.9 [...] GASTRIC BYPASS FOR OBESITY IR BIOPSY 11/12/2022 [place] AAA REPAIR, FEMORAL-FEMORAL GRAFT [place] TOTAL HIP ARTHROPLASTY Bilateral [place] TOTAL KNEE ARTHROPLASTY Right SPINAL FUSION, LUMBAR, [...] Non smoker Diabetes: No Chronic Steroid Use:No Body mass index is 23.62 kg/m. Carcinoma: No Adjuvant Therapy: No ROS EXAM: [...] trouble and No history of diabetes EXAM: BP 112/70 | Pulse 70 | Temp 36.7 C (98 F) | Resp 18 | Ht 1.829 m (6') | Wt 79 kg (174 lb 2.6 oz) | BMI 23.62 kg/m | BSA 2 m The patient is a well-developed, well-nourished 78 [...] QRS Duration: 126 QT/QTc: 434/468 ms P-R-T [place]: 0 : -63 : 83 degrees IMPRESSION: [...] Will consult nephrology when admitted. Per pt's leak patcher at [facility], HD access can be done in a [...] separately billed services. Ankita Parekh PA-C 08/28/2023 documented in this encounter Plan of Treatment Upcoming Encounters Date Type Department Care Team (Latest Contact Info) Description 09/05/2023 7:15 AM EST Hospital Encounter OR [facility], OPER[facility] ROOM [facility] [address] [place] [address] Otis Keys MD [address] [place] [address] 09/05/2023 7:15 AM EST - 09/05/2023 11:10 AM EST Surgery OR [facility], OPERATING ROOM [facility] [address] [place] [address] Otis Keys MD [address] [place] [address] EXCISION SACRAL PRESSURE ULCER WITH OSTECTOMY PREFLAP [...] 2023 04/29/2022, 03/09/2022, 05/11/2021, Additional history exists GFR 02/26/2024 08/28/2023, 03/07/2021, 09/21/2021, Additional history exists Hgb 08/28/2024 08/28/2023, 10/26, 09/07/2021, Additional history exists DTaP,Tdap,and Td Vaccines (5 [...] Procedure Name Priority Date/Time Associated Diagnosis Comments DIFFERENTIAL, AUTOMATED Routine 08/28/2023 11:43 AM EST Pressure injury of sacral region, stage 4 (HCC) COMPREHENSIVE METABOLIC PANEL Routine 08/28/2023 11:43 AM EST Pressure injury of sacral region, stage 4 (HCC) CBC Routine 08/28/2023 11:43 AM EST Pressure injury of sacral region, stage 4 (HCC) CBC Routine 08/28/2023 11:43 AM EST Pressure injury of sacral region, stage 4 (HCC) PREALBUMIN Routine 08/28/2023 11:43 AM EST Pressure injury of sacral region, stage 4 (HCC) documented in this encounter Results * EKG (08/28/2023 12:07 PM EST) 08/28/2023 12:0 7 PM EST Narrative Procedure Note Ahmet Welch MD - 08/28/2023 12:07 PM EST REASON FOR STUDY: pre op CONCLUSIONS: Atrial fibrillation with premature ventricular or aberrantly conductedcomplexes Left axis deviation Left ventricular hypertrophy with secondary QRS widening No previous ECGs available Ventricular Rate: 70 Atrial Rate: 58 QRS Duration: 126 QT/QTc: 434/468 ms P-R-T [place]: 0 : -63 : 83 degrees Ankita Parekh PA-C EKG [facility] * (ABNORMAL) DIFFERENTIAL, AUTOMATED (08/28/2023 11:43 AM EST) WBC 6.70 4.00 - 10.80 K/uL 08/28/2023 1:01 PM EST [facility] Neutrophils % 63.0 40.0 - 75.0 % 08/28/2023 1:01 PM EST [facility] Lymphocytes % 11.3(L) 18.0 - 42.0 % 08/28/2023 1:01 PM EST [facility] Monocytes % 11.6(H) 1.0 - 11.0 % 08/28/2023 1:01 PM EST [facility] Eosinophils % 12.8(H) 0.0 - 6.0 % 08/28/2023 1:01 PM EST [facility] Basophils % 1.2 0.0 - 2.0 % 08/28/2023 1:01 PM EST [facility] Immature Granulocytes % 0.1 0.0 - 2.0 % 08/28/2023 1:01 PM EST [facility] Absolute Neutrophils 4.21 1.80 - 7.70 K/uL 08/28/2023 1:01 PM EST [facility] Absolute Lymphocytes 0.76(L) 1.00 - 4.80 K/ul 08/28/2023 1:01 PM EST [facility] Absolute Monocytes 0.78 0.00 - 1.10 K/uL 08/28/2023 1:01 PM EST [facility] Absolute Eosinophils 0.86(H) 0.00 - 0.70 K/uL 08/28/2023 1:01 PM EST [facility] Absolute Basophils 0.08 0.00 - 0.20 K/uL 08/28/2023 1:01 PM EST [facility] Absolute Immature Granulocytes 0.01 0.00 - 0.20 K/uL 08/28/2023 1:01 PM EST [facility] Blood Venous blood specimen / Unknown Venipuncture / Unknown 08/28/2023 11:43 AM EST 08/28/2023 12:42 PM EST Ankita Parekh PA-C LAB BLOOD ORDER [facility] [address] [place] [address] * (ABNORMAL) CBC (08/28/2023 11:43 AM EST) WBC 6.70 4.00 - 10.80 K/uL 08/28/2023 1:01 PM EST [facility] RBC 2.85 4.50 - 5.25 M/uL 08/28/2023 1:01 PM EST [facility] HGB 9.5(L) 14.0 - 16.8 g/dL 08/28/2023 1:01 PM EST [facility] HCT 30.6(L) 40.0 - 48.4 % 08/28/2023 1:01 PM EST [facility] MCV 107.4 82.0 - 99.5 fL 08/28/2023 1:01 PM EST [facility] MCH 33.3 27.0 - 34.0 pg 08/28/2023 1:01 PM EST [facility] MCHC 31.0 32.0 - 36.0 g/dL 08/28/2023 1:01 PM EST [facility] RDW 17.9 11.5 - 15.5 % 08/28/2023 1:01 PM EST [facility] PLT 189 140 - 400 K/uL 08/28/2023 1:01 PM EST [facility] MPV 9.2 6.6 - 11.1 fL 08/28/2023 1:01 PM EST [facility] nRBCs 0 <=0 /100 WBCs 08/28/2023 1:01 PM EST [facility] Blood Venous blood specimen / Unknown Venipuncture / Unknown 08/28/2023 11:43 AM EST 08/28/2023 12:42 PM EST Ankita Parekh PA-C LAB BLOOD ORDER [facility] [address] [place] [address] * PREALBUMIN (08/28/2023 11:43 AM EST) [facility] Signature Prealbumin 19 18 - 45 mg/dL 08/28/2023 1:20 PM EST [facility] Blood Venous blood specimen / Unknown Venipuncture / Unknown 08/28/2023 11:43 AM EST 08/28/2023 12:42 PM EST Ankita Parekh PA-C LAB BLOOD ORDER [facility] [address] [place] [address] * (ABNORMAL) COMPREHENSIVE METABOLIC PANEL (08/28/2023 11:43 AM EST) BUN 37(H) 6 - 20 mg/dL 08/28/2023 1:20 PM EST [facility] Creatinine 3.5(H) 0.6 - 1.2 mg/dL 08/28/2023 1:20 PM EST [facility] Estimated Glomerular Filtration Rate 17(L) >=60 mL/min 08/28/2023 1:20 PM EST [facility] Comment:eGFR is calculated b ased on the CKD-EPI 2020 equation Sodium 136 135 - 146 mmol/L 08/28/2023 1:20 PM EST [facility] Potassium 4.3 3.5 - 5.1 mmol/L 08/28/2023 1:20 PM EST [facility] Chloride 94(L) 98 - 107 mmol/L 08/28/2023 1:20 PM EST [facility] CO2 30 22 - 32 mmol/L 08/28/2023 1:20 PM EST [facility] Anion Gap 12 7 - 15 mmol/L 08/28/2023 1:20 PM EST [facility] Glucose 80 70 - 120 mg/dL 08/28/2023 1:20 PM EST [facility] Albumin 3.9 3.8 - 5.0 g/dL 08/28/2023 1:20 PM EST [facility] AST 25 10 - 50 U/L 08/28/2023 1:20 PM EST [facility] Alkaline Phosphatase 139(H) 35 - 130 U/L 08/28/2023 1:20 PM EST [facility] Bilirubin, Total 0.7 <=1.2 mg/dL 08/28/2023 1:20 PM EST [facility] Calcium 9.6 8.4 - 10.2 mg/dL 08/28/2023 1:20 PM EST [facility] Protein 6.5 6.0 - 8.3 g/dL 08/28/2023 1:20 PM EST [facility] ALT 24 10 - 50 U/L 08/28/2023 1:20 PM EST [facility] Blood Venous blood specimen / Unknown Venipuncture / Unknown 08/28/2023 11:43 AM EST 08/28/2023 12:42 PM EST Ankita Parekh PA-C LAB BLOOD ORDER [facility] [address] [place] [address] documented in this encounter Visit Diagnoses Diagnosis Pressure injury of sacral region, stage 4 (HCC)- Primary Pressure injury of sacral region, 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
--- OUTSIDE RECORDS SUMMARY | 2023-09-24 13:50 | External Medical Summary ---
Author Name Unknown Address Unknown Organization K01:[facility] [address] [place] [address] Laboratory Report Ordering Provider Test Date Status SARINA AGUILAR 08/28/2023 11:43:30 Final Observation Date Value Abnormality Reference (Units ) Status Prealbumin 08/28/2023 11:43:30 19 18-45 (mg /dL) Final Performing Location [facility] [address] [place] [address]
--- OUTSIDE RECORDS SUMMARY | 2023-09-24 13:50 | External Medical Summary | Summary of Care ---
Author Name Unknown Organization [facility] Address [address] [place] [address] Phone [phone] Care Team Providers Care Route Delivery Service Driver Name Role Phone Jasiel Pineda DO Primary Care Provider [phone] Encounter Details Date Type Department Care Team (Late st Contact Info) Description 08/11/2023 Telephone Plastic Surgery, [place] [address] [place], [place] [phone] Services, [facility] [address] [place] [address] Allergies Active Allergy Reactions Criticality Noted Date Comments Morphine Nausea/vomiting 06/09/2021 Other reaction(s): Vomiting Tetracycline 06/09/2021 Other reaction(s): Hives documented as of this encounter (statuses as of 08/11/2023) Medications Medication Sig Dispensed Refills Start Date End Date Status Vitamin D 50 MCG (1999) Oral Capsule Take 2,000 Units by mouth daily. 0 Active Azelastine HCl 137 MCG/SPRAY Nasal Solution Administer 1 [place] into each nostril every night at bedtime. 0 08/02/2021 Active HYDROcodone-Acetamin ophen 5-325 MG Oral TabletIndications:In fected pressure ulcer, stage IV,Other acute osteomyelitis, other site (HCC) Take 1 [...] Tablet 0 09/25/2021 Active Additional Information Patient taking differently: 5 mgOral Daily(AM), Reported on 01/02/2023 Nephrocaps 1 MG Oral Capsule Take 1 [...] area daily. 473 mL 2 01/02/2023 Active oxyCODONE-Acetaminop hen 5-325 MG Oral Tablet Take 1 Tablet by mouth every 4 hours as needed. 0 Active Ciprofloxacin HCl 250 MG Oral Tablet (Cipro) Take 1 Tablet by mouth in the morning and 1 Tablet before bedtime. 0 Active documented as of this encounter (statuses as of 08/11/2023) Active Problems Problem Noted Date Diagnosed Date [...] as of this encounter (statuses as of 08/11/2023) Resolved Problems Problem Noted Date Diagnosed Date Resolved Date Nail finding 06/09/2021 08/02/2021 Osteoarthritis of left hip 06/09/2021 1 Pain of right lower extremity 06/09/2021 07/26/2021 Sacroiliitis 05/30/2021 08/02/2021 documented as of this encounter (statuses as of 08/11/2023) Social History Tobacco Use Types Packs/Day Years Used Date Smoking Tobacco: Never Smokeless Tobacco: Never Sex and Gender Information Value Date Recorded Sex Assigned at Not on file Gender Identity Not on file Sexual Orientation Not on file Job Start Date Occupation Industry Not on file Not on file Not on file documented as of this encounter Miscellaneous Notes * Telephone Encounter - Daniela [place] OSA - 08/11/2023 10:47 AM EST Pt was admitted and wont be out in time for H&P needs rescheduled for a or Please advise documented in this encounter Plan of Treatment Upcoming Encounters Date Type Department Care Team (Latest Contact Info) Description 09/05/2023 7:15 AM EST Hospital Encounter [place] [facility] [address] [place] [address] Otis Keys MD [address] [place] [address] 09/05/2023 7:15 AM EST - 09/05/2023 11:10 AM EST Surgery [place] [facility] [address] [place] [address] Otis Keys MD [address] [place] [address] EXCISION SACRAL PRESSURE ULCER WITH OSTECTOMY PREFLAP [...] filedocumented as of this encounter Care Teams Route Delivery Service Driver Relationship Specialty Start Date End Date Jasiel Pineda DO [address] [place] [address] PCP - General Family Medicine 09/25/21 documented as of this encounter
--- OUTSIDE RECORDS SUMMARY | 2023-09-24 13:50 | External Medical Summary | Continuity of Care Document ---
Author Name Unknown Organization [place] [address] [address] [facility] Address [address] [place], [place] [id number] Care Team Providers Care Head Charger Name Role Phone Jasiel Pineda Primary Care Physician [phone] Encounter [facility] [id number] Date(s): 08/21/23 - 08/21/23 [facility] [address] [facility] [address] [facility], [address] [place] [address] [phone] Encounter Diagnosis AAA (abdominal aortic aneurysm)(Discharge Diagnosis) - 08/21/23 Bilateral iliac artery aneurysm(Discharge Diagnosis) - 08/21/23 Thoracic aortic dissection(Discharge Diagnosis) - 08/21/23 Discharge Disposition: Home or Self Care Attending Physician: MD Cara, Demetri Bautista Referring Physician: DO Pineda Brian R Allergies, Adverse Reactions, Alerts Substance Reaction Severity Status tetracycline Hives Active morphine Vomiting Nausea Active Medications acetaminophen-oxyCODONE 325 mg-5 mg oral tablet Start: 02/26/22 13:57:00 EDT, 1 tab, PO, q6h, Refills: 0, PRN: as needed for pain Start Date: 02/26/22 Status: Ordered amoxicillin 500 mg oral capsule Start: 02/26/22 13:57:00 EDT, 4 cap, PO, As indicated, Disp# 12 cap, Refills: 3, one hour before dental and other procedures as directed Start Date: 02/26/22 Status: Ordered azelastine 137 mcg/inh (0.1%) nasal spray Start: 02/26/22 13:57:00 EDT, 2 spray, each nostril, bid, PRN: as needed for allergy symptoms Start Date: 02/26/22 Status: Ordered Eliquis 2.5 mg oral tablet Start: 10/16/21 15:21:00 EDT, 1 tab, PO, bid Start Date: 10/16/21 Status: Ordered gabapentin Start: 10/16/21 15:20:00 EDT, 600 mg =, PO, qhs Start Date: 10/16/21 Status: Ordered Lipitor 20 mg oral tablet Start: 11/21/20 9:58:00 EDT, 1 tab, PO, Daily Start Date: 11/21/20 Status: Ordered nortriptyline 25 mg oral capsule Start: 02/26/22 13:57:00 EDT, 1 cap, PO, qhs Start Date: 02/26/22 Status: Ordered Renal Caps oral capsule Start: 02/26/22 13:55:00 EDT, 1 cap, PO, Daily Start Date: 02/26/22 Status: Ordered Toprol-XL 50 mg oral tablet, extended release Start: 03/08/19 9:58:00 EDT, 1 tab, PO, Daily Start Date: 03/08/19 Status: Ordered Mental Status 08/21/23 Barriers to Learning one year Vision imp airment, Other: uses a cane Mandatory Health Literacy Documentation Yes Health Literacy Communication Barriers N ever Primary Language Guatemalan Problem List Condition Confirmation Course Effective Dates Status H ealth Status Informant AAA (abdominal aortic aneurysm) Confirmed Active Bilateral iliac artery aneurysm Confirmed Active Arthritis of right wrist Confirmed Active Thoracic aortic dissection Confirmed Active End stage renal disease Confirmed Active Left hip pain Confirmed Active History of lumbar spinal fusion Confirmed Active S/P revision of total hip Confirmed Active Sacroiliitis Confirmed Active Fingernail problem Confirmed Active Tinea unguium Confirmed Active Osteoarthritis of left hip Confirmed Active Chronic gluteal pain Confirmed Active Right leg pain Confirmed Active Preop examination Confirmed Active Peripheral vascular disease Confirmed Active Pressure ulcer of sacral region, stage 4 Confirmed Active Lumbar spinal stenosis Confirmed Active Synovial cyst of lumbar facet joint Confirmed Active Diagnosis Diagnosis Type Effective Dates Health Status Clinical Service Informant AAA (abdominal aortic aneurysm) Discharge Diagnosis 08/21/23 Thoracic aortic dissection Discharge Diagnosis 08/21/23 Bilateral iliac artery aneurysm Discharge Diagnosis 08/21/23 Procedures Procedure Date Related Diagnosis Body Site Status Left Open arteriovenous anas tomosis by transposition of basilic vein of upper arm 04/23/22 Completed LUE AVF creation 02/28/22 Complete d Chest x-ray 1 07/13/21 Completed Revision 2 2020 Completed Hip replacement - left 2019 Co mpleted Post-surgery back pain 03/05/19 Co mpleted Shave biopsy and cauterizati on of skin 3 10/15/18 Completed Cataract extraction and inse rtion of intraocular lens- bi-lat 2018 [facility] ed TURP - Transurethral resecti on of prostate 2016 Completed Repair of type A aortic dissection 2014 Completed Partial Fusion- right wrist 2013 Completed Kang-en-y gastric bypass 2010 Completed History of right total knee replacement 2008 Completed Prosthetic arthroplasty of right hip 2007 Completed Cardiac catheterisation- no stents 2003 Completed Hip replacement 4 Complet ed Revision 5 Completed 1Cardiomegaly and moderate pulmonary edema 2Revision of Sacral Ulcer June 272020 at [facility] 3Left lower back 4left 5L JASON Vital Signs Most recent to oldest [Reference Range]: 1 Heart Rate 49 bpm (08/21/23 11:05 AM) Blood Pressure 130/64mmHg (08/21/23 11:05 AM) BP Location # 1 Right Arm (08/21/23 11:05 AM) Social History Social History Type Response Smoking Status Never smoked cigaret era Sex Male Implantable Device List Procedure Provider Procedure Date Device Type Site Unknown Unknown 03/05/19 Unknown Unknown Device Identifier Serial Number Lot or Batch Number Manufacturing Date Expiration Date Distinct Identification Code MRI Safety Implantable Status Assigning Authority Unknown Unknown N/A Unknown 12/11/21 Unknown Unknown Active Unkn own Unknown Unknown N/A Unknown Unknown Unknown Unknown Active Unkn own Unknown Unknown N/A Unknown Unknown Unknown Unknown Active Unkn own Unknown Unknown N/A Unknown Unknown Unknown Unknown Active Unkn own Patient Care team information Care Team Personnel Name: Aj Morris Marissa Position: Pharmacist Member Role: Pharmacy - Lifetime Address: Address: [address] [place] [id number] [place] Name: NADIA Muller Lynn Position: Physician Client Services Coordinator Exempt - Vasc Surg Member Role: Lifetime Relationship Address: Address: [address] [place] [address] [place] Name: DO Pineda Brian R Position: Referring Member Role: Primary Care Provider Address: Address: [address] [place] [address] [place] Name: MD Marroquin Eugene J Position: Physician - Vascular Surg Member Role: Lifetime Relationship Address: Address: [address] [place] [address] [place] Care Team Related Persons Name: PIETER COMPA Yaquelin Address: home [address] [place], [place] [id number]
--- OUTSIDE RECORDS SUMMARY | 2023-09-24 13:50 | External Medical Summary ---
Author Name Unknown Address Unknown Organization K01:[facility] [place] [address] [place] [id number] Laboratory Report Ordering Provider Test Date Status AKIKO OROSCO 09/05/2023 12:56:00 Preliminary Observation Date Value Abnormality Reference (Units) Status Bacteria identified in Specimen by Culture 09/05/2023 12:56:00 [id number]^CANDID A ALBICANS Abnormal Preliminary Laney albicans Fungal Smear 09/05/2023 12:56:00 No yeast or hyphae seen. Preliminary Test: Culture, Fungus, Non-D erm
Specimen Source: Sacrum
Specimen Type: Tissue
Specimen Date: 09/05/2023 12:56 PM
Result Date: 09/12/2023 2:40 PM
Result Status: Preliminary result
Abnormal: Yes
Resulting Lab: [facility]
[address]
[place] [address]

CULTURE

Laney albicans (Abnormal)

STAIN

No yeast or hyphae seen.

null Performing Location [facility] - [address] [facility] [address]
--- OUTSIDE RECORDS SUMMARY | 2023-09-24 13:50 | External Medical Summary ---
Author Name Unknown Address Unknown Organization K01:[facility] [place] [address] [place] [address] Laboratory Report Ordering Provider Test Date Status AKIKO OROSCO 09/05/2023 12:56:00 Preliminary Observation Date Value Abnormality Reference (Units) Status Bacteria identified in Specimen by Culture 09/05/2023 12:56:00 No acid fast bacilli isolated to date Preliminary Microscopic observation [Identifier] in Specimen by Rhodamine-auramine fluorochrome stain 09/05/2023 12:56:00 No acid fast bacilli seen Preliminary Test: Culture, AFB
Speci men Source: Sacrum
Specimen Type: Tissue
Specimen Date: 09/05/2023 12:56 PM
Result Date: 09/09/2023 9:31 AM
Result Status: Preliminary result
Resulting Lab: [facility]
[address]
[place] [address]

CULTURE

No acid fast bacilli isolated to date

STAIN

No acid fast bacilli seen

null Performing Location [facility] [address] [facility] [address]
--- OUTSIDE RECORDS SUMMARY | 2023-09-24 13:50 | External Medical Summary ---
Author Name Unknown Address Unknown Organization [id number]:[facility]ORY [facility] [place] [address] [facility] [place] [address] Laboratory Report Ordering Provider Test Date Status SARINA AGUILAR 08/28/2023 11:43:30 Final Observation Date Value Abnormality Reference (Units ) Status SYNC LEUKOCYTES IN BLOOD BY AUTOMATED COUNT 08/28/2023 11:43:30 6.70 4.00-10.80 (K/uL) Final Segs 08/28/2023 11:43:30 63.0 40.0-75.0 (%) Final Lymphs % 08/28/2023 11:43:30 11.3 Below low normal 18.0-42.0 (%) Final Monos 08/28/2023 11:43:30 11.6 Above high normal 1.0-11.0 (%) Final Eosinophils 08/28/2023 11:43:30 12.8 Above high normal 0.0-6.0 (%) Final Basos 08/28/2023 11:43:30 1.2 0.0-2.0 (%) Final Immature Granulocyte, Percent 08/28/2023 11:43:30 0.1 0.0-2.0 (%) Final Absolute Segs 08/28/2023 11:43:30 4.21 1.80-7.70 (K/uL) Final Lymphs, absolute 08/28/2023 11:43:30 0.76 Below low normal 1.00-4.80 (K/ul) Final Monos, Abs 08/28/2023 11:43:30 0.78 0.00-1.10 (K/uL) Final Eos, Abs 08/28/2023 11:43:30 0.86 Above high normal 0.00-0.70 (K/uL) Final Basos, Abs 08/28/2023 11:43:30 0.08 0.00-0.20 (K/uL) Final Immature Granulocytes, Number 08/28/2023 11:43:30 0.01 0.00-0.20 (K/uL) Final Performing Location [facility]ORY [facility] [place] [facility] [place] [address]
--- OUTSIDE RECORDS SUMMARY | 2023-09-24 13:50 | External Medical Summary ---
Author Name Unknown Address Unknown Organization [id number]:[facility] [place] [address] [place] [address] Laboratory Report Ordering Provider Test Date Status LOWELL LEIMARTIN 09/05/2023 12:57:00 Final No anaerobic growth.
Gra m stain not routinely performed on this specimen source. Observation Date Value Abnormality Reference (Units ) Status Bacteria identified in Specimen by Culture 09/05/2023 12:57:00 [id number]^ESCHE RICHIA COLI Abnormal Final Unable to quantitate Escheri adolfo coli Performing Location [facility] [place] [address] [place] [address] Ordering Provider Test Date Status TUNDE LEIRICH 09/05/2023 12:57:00 Final Observation Date Value Abnormality Reference (Units) Status Ampicillin 09/05/2023 12:57:00 4 Susceptible Final Cefepime susceptibility 09/05/2023 12:57:00 <=1 Susceptible Final Ceftriaxone suceptibility 09/05/2023 12:57:00 <=1 Susceptible Final Ciprofloxacin 09/05/2023 12:57:00 <=0.25 Susceptible Final Gentamicin susceptibility 09/05/2023 12:57:00 <=1 Susceptible Final Piperacillin + Tazobactamsusceptibility 09/05/2023 12:57:00 <=4 Susceptible Final TMP-SMZ susceptibility 09/05/2023 12:57:00 <=20 Susceptible Final Test: Culture, Tissue, Aerob ic and Anaerobic
Specimen Source: Sacrum
Specimen Type: Bone
Specimen Date: 09/05/2023 12:57 PM
Result Date: 09/08/2023 9:35 AM
Result Status: Final result
Abnormal: Yes
Resulting Lab: [facility]
[address]
[place] [address]

CULTURE

Unable to quantitate Escherichia coli (Abnormal)

No anaerobic growth.Gram stain not routinely performed on this specimen
source.

SUSCEPTIBILITY

Escherichia coli
METHOD MICROBROTH
DILUTIONS

AMPICILLIN 4 Susceptible
CEFEPIME <=1 Susceptible
CEFTRIAXONE <=1 Susceptible
CIPROFLOXACIN <=0.25 Susceptible
GENTAMICIN <=1 Susceptible
PIPERACILLIN TAZOBACTAM <=4 Susceptible
TRIMETH/SULFAMETHOXAZOLE <=20 Susceptible

null Performing Location [facility] [place] [address] [facility] [address]
--- OUTSIDE RECORDS SUMMARY | 2023-09-24 13:50 | External Medical Summary ---
Author Name Unknown Address Unknown Organization [id number]:LABORATORY [facility] [place] - [address] [place] [address] Laboratory Report Ordering Provider Test Date Status MATTEO PITTS 09/05/2023 11:50:00 Final Observation Date Value Abnormality Reference (Units ) Status BUN 09/05/2023 11:50:00 61 Above high normal 6-20 (mg/dL) Final Creatinine 09/05/2023 11:50:00 4.2 Above high normal 0.6-1.2 (mg/dL) Final Glomerular filtration rate/1.73 sq M.predicted [Volume Rate/Area] in Serum, Plasma or Blood by Creatinine-based formula (CKD-EPI) 09/05/2023 11:50:00 14 Below low normal >=60 (mL/min) Final eGFR is calculated based on the CKD-EPI 2020 equation SODIUM 09/05/2023 11:50:00 136 135-146 (m mol/L) Final Potassium 09/05/2023 11:50:00 4.3 3.5-5.1 (m mol/L) Final Cl 09/05/2023 11:50:00 95 Below low normal 98- 107 (mmol/L) Final CO2 09/05/2023 11:50:00 26 22-32 (mmo l/L) Final Anion gap 09/05/2023 11:50:00 15 7-15 (mmol /L) Final Glucose 09/05/2023 11:50:00 86 70-120 (mg /dL) Final Calcium 09/05/2023 11:50:00 9.3 8.4-10.2 ( mg/dL) Final Performing Location LABORATORY [facility] [place] - [address] [place] [address]
--- OUTSIDE RECORDS SUMMARY | 2023-09-24 13:50 | External Medical Summary ---
Author Name Unknown Address Unknown Organization K01:[facility]ORY [facility] [place] - [address] [facility] [place] [address] Laboratory Report Ordering Provider Test Date Status SARINA AGUILAR 08/28/2023 11:43:30 Final Observation Date Value Abnormality Reference (Units ) Status BUN 08/28/2023 11:43:30 37 Above high normal 6-20 (mg/dL) Final Creatinine 08/28/2023 11:43:30 3.5 Above high normal 0.6-1.2 (mg/dL) Final Glomerular filtration rate/1.73 sq M.predicted [Volume Rate/Area] in Serum, Plasma or Blood by Creatinine-based formula (CKD-EPI) 08/28/2023 11:43:30 17 Below low normal >=60 (mL/min) Final eGFR is calculated based on the CKD-EPI 2020 equation SODIUM 08/28/2023 11:43:30 136 135-146 (m mol/L) Final Potassium 08/28/2023 11:43:30 4.3 3.5-5.1 (m mol/L) Final Cl 08/28/2023 11:43:30 94 Below low normal 98- 107 (mmol/L) Final CO2 08/28/2023 11:43:30 30 22-32 (mmo l/L) Final Anion gap 08/28/2023 11:43:30 12 7-15 (mmol /L) Final Glucose 08/28/2023 11:43:30 80 70-120 (mg /dL) Final Albumin 08/28/2023 11:43:30 3.9 3.8-5.0 (g /dL) Final AST (Aspartate aminotransferase) 08/28/2023 11:43:30 25 10-50 (U/L) Fin al Alk Phos 08/28/2023 11:43:30 139 Above high normal 35 -130 (U/L) Final Bilirubin, Total 08/28/2023 11:43:30 0.7 <=1 .2 (mg/dL) Final Calcium 08/28/2023 11:43:30 9.6 8.4-10.2 ( mg/dL) Final Protein 08/28/2023 11:43:30 6.5 6.0-8.3 (g /dL) Final ALT (Alanine aminotransferase) 08/28/2023 11:43:30 24 10-50 (U/L) Mani arechiga Performing Location LAB[facility]ATORY [facility] [place] - [address] [facility] [address]
--- OUTSIDE RECORDS SUMMARY | 2023-09-24 14:17 | External Medical Summary | Summary of Care ---
Author Name Unknown Organization [facility] Address [address] [place] [address] Phone [phone] Care Team Providers Care Family Consumer Scientist Name Role Phone Edwin Jasiel Lama DO Primary Care Provider [phone] Reason for Visit * Reason Onset Date Comments Hospital Follow-Up 09/18/2023 Encounter Details Date Type Department Care Team (Late st Contact Info) Description 09/18/2023 Telephone Infectious Disease, [place] [address] [place] [address] Jamin Young MD [address] [place] [address] Hospital Follow-Up Allergies Active Allergy [...] HCl 137 MCG/SPRAY Nasal Solution Administer 1 [place] into each nostril every night at bedtime. [...] Encounter - Guerda Gunter LPN - 09/23/2023 5:05 PM EST I returned Gabbi's call. She is aware of OOP cost and willing to proceed with line placement. She would prefer PICC be placed at [facility] on . Will work on this and call her back to confirm time. Guerda Gunter LPN Nurse Navigator ID * Telephone Encounter - Lori Jarvis OSA - 09/23/2023 12:11 PM EST Pts Gabbi returned call, no answer, requesting a call back from Guerda, please call [phone] * Telephone Encounter - Guerda Gunter LPN - 09/23/2023 11:22 AM EST Images from the original note were not included. I received Insurance info back from [facility]. LMOM asking Pt's for a callback. * Telephone Encounter - Guerda Gunter LPN - 09/18/2023 3:[address] Young, Pt is to begin a course of IV abx. Referral sent to [facility] to run for insurance auth. Pt is already using [facility] home health. Pt also goes to dialysis MWF at [facility]. I spoke to Pt'swife and updated her on the process. I will speak with her again once insurance auth comes back. I spoke with nurse at [facility] and they can administer vanco there, however, Pt will have to stay longer than an hour post dialysis. I have given his the option of doing that drug at home as well and she has agreed to do it that way. I will update her once auth comes through. Dr. Young, Please review and sign med orders. Maru will need a dose entered. Thank you, Guerda Gunter LPN Nurse Navigator ID documented in this encounter Plan of Treatment Upcoming Encounters Date Type Department Care Team (Late st Contact Info) Description 10/17/2023 11:00 AM EDT Telemedicine Infectious Disease [address] [phone] Sia French MD [address] [place] [address] 11/04/2023 11:20 AM EDT [facility] [address], [place] [phone] Kyle Chong MD [address], [place] [phone] Health Maintenance Due Date Last Done Comments [...] Discussed due to patient's condition Care Teams Family Consumer Scientist Relationship Specialty Start Date End Date Jasiel Pineda DO [address] [place] [address] PCP - General Family Medicine 09/25/21 documented as of this encounter
[2023-09-24] MEDS: NORTRIPTYLINE HCL 25 MG CAP PO SCH (20:54)
[2023-09-24] MEDS: CHOLECALCIFEROL 25 MCG (1000 UNITS) TAB PO SCH (20:55)
[2023-09-24] MEDS: GABAPENTIN 600 MG TAB PO SCH (20:55)
[2023-09-24] MEDS: ATORVASTATIN 20 MG TAB PO SCH (20:56)
[2023-09-24] MEDS ORDERED: MEROPENEM 500 MG in SYRINGE 0 ML IV SCH (22:00)
[2023-09-24] MEDS ORDERED: HEPARIN 100 UNIT/ML 5ML FLUSH FLUSH PRN (22:02)
[2023-09-24] MEDS: MEROPENEM 1,000 MG in SYRINGE 0 ML IV SCH (23:20)
[2023-09-24] MEDS: VANCOMYCIN HCL 750 MG in SODIUM CHLORIDE 0.9% 250 ML IV ONE (23:24)
[2023-09-24] MEDS: ALPRAZolam 0.5 MG TABLET PO PRN (23:37)
[2023-09-25 06:10] LABS: Basophils # (auto) 0.04 K/uL (0.00-0.20); Basophils % (auto) 0.6 %; Eosinophils # (auto) 0.37 K/uL (0.00-0.50); Eosinophils % (auto) 5.9 %; Hematocrit (blood only) 31.9 % (42.0-52.0); Hemoglobin 9.7 g/dl (14.0-18.0); Immature Granulocytes # (auto) 0.03 K/uL (0.01-0.20); Immature Granulocytes % (auto) 0.5 %; Lymphocytes # (auto) 0.75 K/uL (1.20-3.40); Lymphocytes % (auto) 11.9 %; Mean Corpuscular Hemoglobin 32.7 pg (25.0-34.0); Mean Corpuscular Hgb Conc 30.4 g/dL (32.0-36.0); Mean Corpuscular Volume 107.4 fL (80.0-100.0); Mean Platelet Volume 8.8 fL (9.4-12.4); Monocytes # (auto) 0.67 K/uL (0.11-0.59); Monocytes % (auto) 10.6 %; Neutrophils # (auto) 4.46 K/uL (1.40-6.50); Neutrophils % (auto) 70.5 %; Platelet Count 157 K/uL (130-400); RDW Coefficient of Variation 17.2 % (11.5-14.5); RDW Standard Deviation 67.4 fL (36.4-46.3); Red Blood Count 2.97 M/uL (4.70-6.10); White Blood Count 6.32 K/ul (4.8-10.8)
[2023-09-25 06:21] LABS: Albumin Globulin Ratio 1.5 (0.9-2); Albumin Level 3.6 gm/dl (3.4-5.0); BUN Creatinine Ratio 9.7 (10-20); Bilirubin,Total 0.6 mg/dl (0.2-1.0); Calcium 9.2 mg/dl (8.6-10.3); Creatinine Clr Calc Pharmacy 18.9 ml/min; Est GFR (African American) 17.9 ml/min; Est GFR (Non-African American) 15.4 ml/min; Globulin 2.4 gm/dl (2.5-4.0); Magnesium 2.3 mg/dl (1.7-2.4); Phosphorus 5.3 mg/dl (2.5-4.9)
--- NOTE | 2023-09-25 06:52 | XRay Report ---
XR chest 1V portable CLINICAL HISTORY: Picc placement COMPARISON STUDY: Chest CT and chest radiograph performed earlier today. FINDINGS: The tip of the right PICC projects over the cavoatrial junction. There is no pneumothorax. Small right pleural effusion is unchanged. Right upper lobe consolidation and patchy left basilar opa city persists. No evidence for pulmonary edema. Moderate cardiomegaly. IMPRESSION: 1. Tip of right PICC projects over the cavoatrial junction. 2. Right upper lobe consolidation and patchy left basilar opacity suggestive of multifocal pneumonia. ACT 112: Negative or not required by law. Electronically signed by: Chao Connolly M.D. 09/25/2023 6:51 AM
--- NOTE | 2023-09-25 07:30 | XRay Report ---
XR chest 1V portable HISTORY: PICC placement COMPARISON: Chest 09/23/2023. FINDINGS: The right PICC terminates in the SVC. The heart remains mildly enlarged. There are postster notomy changes. Right upper lobe airspace opacity has slightly improved. There are small patchy bibas ilar densities. No evidence for pulmonary edema. IMPRESSION: 1. The right PICC terminates in the SVC. 2. Multifocal airspace opacities persist. ACT 112: Negative or not required by law. Electronically signed by: Victoriano Mcclain M.D. 09/25/2023 7:29 AM
--- NOTE | 2023-09-25 07:58 | Pharmacy Report ---
Pharmacy PK ABX Note - Date of Service September 25, 2023 - Assessment and Plan Assessment 78 year old M receiving Vancomycin and Meropenem for treatment of sacral osteomyelitis. * Day #1 of antimicrobial therapy. 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 Most recent culture (09/05/23) obtained from [facility] records indication sacral ulcer was growing Pseudomonas aeruginosa, Enterococcus species, and two colonies of Escherichia coli. * E. coli was pansensitive. P. aeruginosa was only susceptible to Meropenem and Tobramycin. Enterococcus species were sensitive to Ampicillin and Vancomycin. Culture also grew [place] albicans. * [facility] of IV abx in the form of Meropenem 1 g q24h and Vancomycin to maintain AUC/SAVANNAH of 400-600. Due to insurance issues, neither of these were started prior to this admission. * Patient has ESRD and is on HD MWF. Reports no missed sessions. Had 3.5 hr session 09/24. * Afebrile. No leukocytosis. Blood cultures pending. Plan Vancomycin * Random level obtained 09/24 post HD resulted as 10.4 mcg/mL * 750mg IV x1 at 2300 09/24 * Random level this AM 15.4 mcg/mL * 500mg IV x1 today at 0800 * Will order another random level for tomorrow morning prior to HD Meropenem * Will disregarding [facility] policy for meropenem and follow [facility] ID recommended dosing * 1000 mg IV every 24 hours (give after HD on dialysis days) Pharmacy will continue to follow and will adjust dose/frequency as necessary. Thank you. Pharmacy has transitioned to AUC monitoring for vancomycin. AUC/SAVANNAH is the preferred PK/PD target and is associated with decreased risk of nephrotoxicity compared to traditional trough targets.
[2023-09-25] MEDS: VANCOMYCIN HCL 500 MG in NSS 100mL IV ONE (08:17)
[2023-09-25] MEDS ORDERED: VANCOMYCIN HCL 1,250 MG in SODIUM CHLORIDE 0.9% 500 ML IV SCH (09:00)
--- NOTE | 2023-09-25 10:24 | Nephrology Progress Note ---
Date of Service September 25, 2023 Assessment & Plan (1) ESRD (end stage renal disease) on dialysis: (2) Pneumonia: (3) Anemia of chronic disease: (4) Acute hypoxemic respiratory failure: (5) Neurogenic bladder: (6) Hypertension: (7) Sacral decubitus ulcer, stage IV: (8) Generalized weakness: (9) Hypoxia: Plan 78-year-old gentleman with end-stage kidney disease on hemodialysis, Friday, , Friday via left brachiocephalic AV fistula. Admitted with hypoxic respiratory failure with multifocal pneumonia. Started on vancomycin and meropenem. Has stage IV sacral decubitus ulcer and recently found to have osteomyelitis. Had PICC line placed on 09/24/2023 for IV meropenem and vancomycin as per ID recommendation. Overall doing well, clinically stable. Volume status acceptable. Blood pressure slightly elevated. --Hemodialysis tomorrow as regular schedule -- Continue on Nephrocaps and phosphate binder -- Epogen 20,000 units with dialysis given on 09/24/23 -- Left arm nephrology precaution, dose medications for EGFR less than 10 Admission and Anticipated Discharge Date Admission Date: September 24, 2023 Subjective Sylvester was seen and evaluated this am. Overall doing well, denies any concerns. BP fair. Had HD yesterday. Had PICC line placed. Review of Systems Review of Systems: Detailed review of system was done and pertinent positives and negatives are mentioned above. Physical Exam Constitutional: WD/WN, vitals as above + ill appearing; no acute distress Eyes: + anicteric sclerae Neck: normal visual inspection Respiratory: Auscultation: + diminished lung sounds Cardiovascular: Rate/Rhythm: regular rate and regular rhythm Heart Sounds: normal S1 and normal S2 Extremities: + AV fistula (left BC AVF with thrill and bruit); no edema Gastrointestinal (Abdomen): non tender, soft, ostomy in place Skin: no rashes, warm and dry Neurologic: no focal motor deficits Psychiatric: Orientation: alert and oriented x 3 Affect: euthymic affect Genitourinary: Perry in place Results & Data Vital Signs (Past 12 Hours) Vital Signs Temp Pulse Pulse Pulse Resp BP BP 09/25/23 08:19 36.9 C 82 16 158/92 H 09/25/23 03:43 69 12 09/25/23 03:21 36.9 C 69 18 172/70 H 09/25/23 01:20 78 09/25/23 01:16 09/25/23 01:07 36.7 C 83 83 16 158/86 H 09/24/23 23:45 78 17 09/24/23 23:10 84 Pulse Ox O2 Del Method O2 Del Method FiO2 09/25/23 08:19 92 Room Air 09/25/23 03:43 99 30 09/25/23 03:21 99 BiPAP 09/25/23 01:20 09/25/23 01:16 CPAP 09/25/23 01:07 97 Room Air 09/24/23 23:45 98 30 09/24/23 23:10 PG Care Time/CCT Total # of Minutes Spent Total Time Spent with Patient: Total time spent is greater than 50% in coordination of care (as documented) at patient's floor/unit and/or counseling patient: Coding Level of Care Code 52534 SUB INP/OBS CARE 2/35MIN Diagnoses ESRD (end stage renal disease) on dialysis N18.6; Z99.2 Pneumonia J18.9 Laterality: right Lung location: middle lobe of lung Pneumonia type: due to unspecified organism Anemia of chronic disease D63.8 Acute hypoxemic respiratory failure J96.01 Neurogenic bladder N31.9 Essential hypertension I10 Hypertension type: essential hypertension Sacral decubitus ulcer, stage IV L89.154 Generalized weakness R53.1 Hypoxia R09.02 (2) Pneumonia Laterality: right Lung location: middle lobe of lung Pneumonia type: due to unspecified organism Qualified Code(s): J18.9 - Pneumonia, unspecified organism (6) Hypertension Hypertension type: essential hypertension Qualified Code(s): I10 - Essential (primary) hypertension
--- NOTE | 2023-09-25 12:54 | Hospitalist Progress Note ---
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 coli Enterococcus Saw infectious disease outpatient and has been started on IV meropenem 1 g daily and also vancomycin for total of 6 weeks Will continue that regimen while here in the hospital. A PICC line has been inserted Consult wound care Neuropathic pain: Continue gabapentin, nortriptyline Oxycodoneacetaminophen q6h as needed for breakthrough pain Anemia of chronic disease: Hgb 10.0; chronic; stable Secondary to ESRD Neurogenic bladder: Perry in place Hyperlipidemia: Continue atorvastatin Anxiety: Continue alprazolam as needed Atrial fibrillation: Continue metoprolol, Eliquis Continue to monitor in the hospital, patient require PICC line. Awaiting PT evaluation Full code DVT prophylaxis SCDs (2) Pneumonia: (3) ESRD (end stage renal disease) on dialysis: (4) Hypoxia: (5) Anemia of chronic disease: Admission and Anticipated Discharge Date Admission Date: September 24, 2023 Subjective Patient seen and examined today by the bedside, states that shortness of breath has resolved. Denies chest pain or fevers or chills. Review of Systems Review of Systems: All systems reviewed are negative, apart from the ones contained in the history. Physical Exam Physical Exam: The patient is awake, alert and oriented 3, well developed and well nourished, normocephalic and atraumatic, lying in bed and in no acute distress. HEENT--PERRL, EOMI, mucous membranes and oropharynx mildly dry Neck--supple. No JVD. No bruits. Thyroid normal, trachea midline, no adenopathy. Heart--normal S1 and S2. No murmurs, rubs or gallops. Lungs--clear bilaterally, no respiratory distress, no accessory muscle use. Abdomen--normal bowel sounds and soft. Extremities--no cyanosis or clubbing. No edema. Dermatologic--normal skin turgor, normal color, no abnormal lymph nodes, no rash. Neurologic--cranial nerves II through XII grossly intact. Rheumatologic--normal range of motion. Psychiatric--normal affect. Results & Data Results & Data Vital Signs (Past 12 Hours) Vital Signs Temp Pulse Pulse Pulse Resp BP BP 09/25/23 11:50 97.9 F 68 16 153/90 H 09/25/23 08:19 98.4 F 82 16 158/92 H 09/25/23 08:00 09/25/23 07:00 75 09/25/23 03:43 69 12 09/25/23 03:21 98.4 F 69 18 172/70 H 09/25/23 01:20 78 09/25/23 01:16 09/25/23 01:07 98.1 F 83 83 16 158/86 H Pulse Ox O2 Del Method O2 Del Method FiO2 09/25/23 11:50 99 Room Air 09/25/23 08:19 92 Room Air 09/25/23 08:00 Room Air 09/25/23 07:00 09/25/23 03:43 99 30 09/25/23 03:21 99 BiPAP 09/25/23 01:20 09/25/23 01:16 CPAP 09/25/23 01:07 97 Room Air PG Care Time/CCT Total # of Minutes Spent Total Time Spent with Patient: Total time spent is greater than 50% in coordination of care (as documented) at patient's floor/unit and/or counseling patient: Coding Level of Care Code 08357 SUB INP/OBS CARE 2/35MIN Diagnoses Acute hypoxemic respiratory failure J96.01 Pneumonia J18.9 Laterality: right Lung location: middle lobe of lung Pneumonia type: due to unspecified organism ESRD (end stage renal disease) on dialysis N18.6; Z99.2 Hypoxia R09.02 Anemia of chronic disease D63.8 Time Spent (min) 35 (2) Pneumonia Laterality: right Lung location: middle lobe of lung Pneumonia type: due to unspecified organism Qualified Code(s): J18.9 - Pneumonia, unspecified organism
--- NOTE | 2023-09-25 15:25 | Fluoroscopy Report ---
FL video swallow HISTORY: Pneumonia. assess for aspiration TECHNIQUE: Video fluoroscopic evaluation of swallowing was performed in the AP and lateral projection s by the speech pathology staff. The patient is fed nectar-thick and thin liquid barium, a barium coa michoacano wafer, and barium pudding. FLUOROSCOPY TIME: 1 minute and 29 seconds.. Ka,r: 11.8 mGy COMPARISON STUDY: None. FINDINGS: There is normal hyoid excursion and epiglottic deflection. No significant penetration or as piration identified. Swallowing function is within normal limits. IMPRESSION: 1. No aspiration identified. 2. Please see the speech pathologist report for detailed findings and recommendations. ACT 112: Negative or not required by law. Electronically signed by: Victoriano Mcclain M.D. 09/25/2023 3:23 PM
[2023-09-26 06:37] LABS: Hematocrit (blood only) 29.5 % (42.0-52.0); Hemoglobin 9.2 g/dl (14.0-18.0); Mean Corpuscular Hemoglobin 32.7 pg (25.0-34.0); Mean Corpuscular Hgb Conc 31.2 g/dL (32.0-36.0); Mean Platelet Volume 8.6 fL (9.4-12.4); Platelet Count 159 K/uL (130-400); RDW Standard Deviation 64.1 fL (36.4-46.3); Red Blood Count 2.81 M/uL (4.70-6.10); White Blood Count 6.06 K/ul (4.8-10.8)
[2023-09-26 07:06] LABS: BUN Creatinine Ratio 11.7 (10-20); Calcium 8.8 mg/dl (8.6-10.3); Creatinine Clr Calc Pharmacy 13.9 ml/min; Est GFR (African American) 12.3 ml/min; Est GFR (Non-African American) 10.6 ml/min; Potassium 4.4 mmol/L (3.5-5.1)
--- NOTE | 2023-09-26 10:20 | Nephrology Progress Note ---
Date of Service September 26, 2023 Assessment & Plan (1) ESRD (end stage renal disease) on dialysis: (2) Pneumonia: (3) Anemia of chronic disease: (4) Acute hypoxemic respiratory failure: (5) Neurogenic bladder: (6) Hypertension: (7) Sacral decubitus ulcer, stage IV: (8) Generalized weakness: (9) Hypoxia: Plan 78-year-old gentleman with end-stage kidney disease on hemodialysis, Friday, , Friday via left brachiocephalic AV fistula. Admitted with hypoxic respiratory failure with multifocal pneumonia. Started on vancomycin and meropenem. Has stage IV sacral decubitus ulcer and recently found to have osteomyelitis. Had PICC line placed on 09/24/2023 for IV meropenem and vancomycin as per ID recommendation. Overall doing well, clinically stable. Volume status acceptable. Blood pressure slightly elevated. -- Tolerating dialysis, UF to estimated dry weight. -- Continue on Nephrocaps and phosphate binder -- Epogen 10,000 units with dialysis today -- Left arm nephrology precaution, dose medications for EGFR less than 10 -- Okay to be discharged after dialysis once outpatient antibiotic can be arranged to be given at home. Admission and Anticipated Discharge Date Admission Date: September 24, 2023 Subjective Sylvester was seen and evaluated during dialysis this am. Overall doing well, denies any concerns, tolerating dialysis well, acceptable intradialytic weight gain, tolerating UF. BP fair. Had PICC line placed. Review of Systems Review of Systems: Detailed review of system was done and pertinent positives and negatives are mentioned above. Physical Exam Constitutional: WD/WN, vitals as above no acute distress Eyes: + anicteric sclerae Neck: normal visual inspection Respiratory: Auscultation: + diminished lung sounds Cardiovascular: Rate/Rhythm: regular rate and regular rhythm Heart Sounds: normal S1 and normal S2 Extremities: + AV fistula (left BC AVF with thrill and bruit); no edema Gastrointestinal (Abdomen): non tender, soft, ostomy in place Skin: no rashes, warm and dry Neurologic: no focal motor deficits Psychiatric: Orientation: alert and oriented x 3 Affect: euthymic affect Genitourinary: Perry in place Results & Data Vital Signs (Past 12 Hours) Vital Signs Temp Pulse Pulse Pulse Resp BP BP 09/26/23 09:30 76 123/60 09/26/23 09:27 67 140/70 03/01/24 09:18 36.6 C 68 09/26/23 09:12 74 09/26/23 08:01 36.5 C 77 18 184/77 H 09/26/23 03:40 82 12 09/26/23 02:48 36.7 C 86 16 152/74 H 09/25/23 23:20 98 H 16 09/25/23 23:04 37.1 C 83 16 152/84 H Pulse Ox O2 Del Method FiO2 09/26/23 09:30 09/26/23 09:27 09/26/23 09:18 09/26/23 09:12 09/26/23 08:01 98 Room Air 09/26/23 03:40 98 30 09/26/23 02:48 95 BiPAP 30 09/25/23 23:20 98 30 09/25/23 23:04 98 BiPAP 30 PG Care Time/CCT Total # of Minutes Spent Total Time Spent with Patient: Total time spent is greater than 50% in coordination of care (as documented) at patient's floor/unit and/or counseling patient: Coding Level of Care Code 56207 SUB INP/OBS CARE MIN Diagnoses ESRD (end stage renal disease) on dialysis N18.6; Z99.2 Pneumonia J18.9 Laterality: right Lung location: middle lobe of lung Pneumonia type: due to unspecified organism Anemia of chronic disease D63.8 Acute hypoxemic respiratory failure J96.01 Neurogenic bladder N31.9 Essential hypertension I10 Hypertension type: essential hypertension Sacral decubitus ulcer, stage IV L89.154 Generalized weakness R53.1 Hypoxia R09.02 (2) Pneumonia Laterality: right Lung location: middle lobe of lung Pneumonia type: due to unspecified organism Qualified Code(s): J18.9 - Pneumonia, unspecified organism (6) Hypertension Hypertension type: essential hypertension Qualified Code(s): I10 - Essential (primary) hypertension
--- NOTE | 2023-09-26 11:21 | Pharmacy Report ---
Pharmacy PK ABX Note - Date of Service September 26, 2023 - Assessment and Plan Assessment 09/25: * Day #3 of antimicrobial therapy. * Random level yesterday was 15.4 mcg/mL. Patient received 500 mg of IV Vancomycin at 0817. * Remains afebrile and without leukocytosis. Plan for HD today, 4 hr session ordered which started at 0927 per development professional. * Given patient's residual urine output will give an increase post-HD vancomycin dose today as next HD session will not be until Friday. Want to order a level sooner than Friday given urine output. 09/24: 78 year old M receiving Vancomycin and Meropenem for treatment of sacral osteomyelitis. * Day #1 of antimicrobial therapy. 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 Most recent culture (09/05/23) obtained from [facility] records indication sacral ulcer was growing Pseudomonas aeruginosa, Enterococcus species, and two colonies of Escherichia coli. * E. coli was pansensitive. P. aeruginosa was only susceptible to Meropenem and Tobramycin. Enterococcus species were sensitive to Ampicillin and Vancomycin. Culture also grew Laney albicans. * Regenerate recommended 6 weeks of IV abx in the form of Meropenem 1 g q24h and Vancomycin to maintain AUC/SAVANNAH of 400-600. Due to insurance issue s, neither of these were started prior to this admission. * Patient has ESRD and is on HD MWF. Reports no missed sessions. Had 3.5 hr session 09/24. * Afebrile. No leukocytosis. Blood cultures pending. Plan Vancomycin * Pre-HD random level today was 16.4 mcg/mL. This is predicted to achieve target AUC/SAVANNAH of 400-600 mg/L.hr * Give Vancomycin 1250 mg IV x 1 post dialysis today (ordered for 1600). * Repeat random level ordered for Friday morning (09/28/23). Meropenem * Will disregarding [facility] policy for meropenem and follow Regenerate recommended dosing * 1000 mg IV every 24 hours (give after HD on dialysis days) Pharmacy will continue to follow and will adjust dose/frequency as necessary. Thank you. Pharmacy has transitioned to AUC monitoring for vancomycin. AUC/SAVANNAH is the preferred PK/PD target and is associated with decreased risk of nephrotoxicity compared to traditional trough targets.
[2023-09-26] MEDS: EPOETIN ALFA 10,000 UNITS/ML VIAL IV STA (12:14)
--- NOTE | 2023-09-26 12:34 | Hospitalist Progress Note ---
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 coli Enterococcus Saw infectious disease outpatient and has been started on IV meropenem 1 g daily and also vancomycin for total of 6 weeks Will continue that regimen while here in the hospital. A PICC line has been inserted Consult wound care Neuropathic pain: Continue gabapentin, nortriptyline Oxycodoneacetaminophen q6h as needed for breakthrough pain Anemia of chronic disease: Hgb 10.0; chronic; stable Secondary to ESRD Neurogenic bladder: Perry in place Hyperlipidemia: Continue atorvastatin Anxiety: Continue alprazolam as needed Atrial fibrillation: Continue metoprolol, Eliquis Continue to monitor in the hospital, patient require PICC line. Patient would like to return home with home health Full code DVT prophylaxis SCDs (2) Pneumonia: (3) ESRD (end stage renal disease) on dialysis: (4) Hypoxia: (5) Anemia of chronic disease: Admission and Anticipated Discharge Date Admission Date: September 24, 2023 Review of Systems 2 Review of Systems: All systems reviewed are negative, apart from the ones contained in the history. Physical Exam Physical Exam: The patient is awake, alert and oriented 3, well developed and well nourished, normocephalic and atraumatic, lying in bed and in no acute distress. HEENT--PERRL, EOMI, mucous membranes and oropharynx mildly dry Neck--supple. No JVD. No bruits. Thyroid normal, trachea midline, no adenopathy. Heart--normal S1 and S2. No murmurs, rubs or gallops. Lungs--clear bilaterally, no respiratory distress, no accessory muscle use. Abdomen--normal bowel sounds and soft. Extremities--no cyanosis or clubbing. No edema. Dermatologic--normal skin turgor, normal color, no abnormal lymph nodes, no rash. Neurologic--cranial nerves II through XII grossly intact. Rheumatologic--normal range of motion. Psychiatric--normal affect. Results & Data Results & Data Vital Signs (Past 12 Hours) Vital Signs Temp Pulse Pulse Pulse Resp BP BP 09/26/23 12:00 84 155/75 H 09/26/23 11:30 81 147/77 H 09/26/23 11:00 78 148/67 H 09/26/23 10:30 78 146/75 H 09/26/23 10:00 67 159/74 H 09/26/23 09:30 76 123/60 09/26/23 09:27 67 140/70 09/26/23 09:18 97.9 F 68 09/26/23 09:12 74 09/26/23 08:01 97.7 F 77 18 184/77 H 09/26/23 03:40 82 12 09/26/23 02:48 98.1 F 86 16 152/74 H Pulse Ox O2 Del Method FiO2 09/26/23 12:00 09/26/23 11:30 09/26/23 11:00 09/26/23 10:30 09/26/23 10:00 09/26/23 09:30 09/26/23 09:27 09/26/23 09:18 09/26/23 09:12 09/26/23 08:01 98 Room Air 09/26/23 03:40 98 30 09/26/23 02:48 95 BiPAP 30 PG Care Time/CCT Total # of Minutes Spent Total Time Spent with Patient: Total time spent is greater than 50% in coordination of care (as documented) at patient's floor/unit and/or counseling patient: Coding Level of Care Code 61971 SUB INP/OBS CARE 2/35MIN Diagnoses Acute hypoxemic respiratory failure J96.01 Pneumonia J18.9 Laterality: right Lung location: middle lobe of lung Pneumonia type: due to unspecified organism ESRD (end stage renal disease) on dialysis N18.6; Z99.2 Hypoxia R09.02 Anemia of chronic disease D63.8 Time Spent (min) 35 (2) Pneumonia Laterality: right Lung location: middle lobe of lung Pneumonia type: due to unspecified organism Qualified Code(s): J18.9 - Pneumonia, unspecified organism
[2023-09-26] MEDS: VANCOMYCIN HCL 1,250 MG in SODIUM CHLORIDE 0.9% 250 ML IV ONE (14:27)
[2023-09-27 07:17] LABS: Hematocrit (blood only) 31.6 % (42.0-52.0); Hemoglobin 9.7 g/dl (14.0-18.0); Mean Corpuscular Hemoglobin 32.2 pg (25.0-34.0); Mean Corpuscular Hgb Conc 30.7 g/dL (32.0-36.0); Mean Platelet Volume 8.7 fL (9.4-12.4); Platelet Count 166 K/uL (130-400); RDW Coefficient of Variation 16.9 % (11.5-14.5); RDW Standard Deviation 64.8 fL (36.4-46.3); Red Blood Count 3.01 M/uL (4.70-6.10); White Blood Count 5.54 K/ul (4.8-10.8)
[2023-09-27 07:47] LABS: BUN Creatinine Ratio 10.7 (10-20); Calcium 8.6 mg/dl (8.6-10.3); Creatinine Clr Calc Pharmacy 20.7 ml/min; Est GFR (African American) 19.9 ml/min; Est GFR (Non-African American) 17.2 ml/min; Potassium 4.1 mmol/L (3.5-5.1)
--- NOTE | 2023-09-27 10:42 | Hospitalist Progress Note ---
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 coli Enterococcus Saw infectious disease outpatient and has been started on IV meropenem 1 g daily and also vancomycin for total of 6 weeks Will continue that regimen while here in the hospital. A PICC line has been inserted Consult wound care Neuropathic pain: Continue gabapentin, nortriptyline Oxycodoneacetaminophen q6h as needed for breakthrough pain Anemia of chronic disease: Hgb 10.0; chronic; stable Secondary to ESRD Neurogenic bladder: Perry in place Hyperlipidemia: Continue atorvastatin Anxiety: Continue alprazolam as needed Atrial fibrillation: Continue metoprolol, Eliquis Continue to monitor in the hospital, patient require PICC line. Patient would like to return home with home health. Social work is in the process of streamlining his home antibiotic delivery. According to the patient his is a nurse and can give him his home IV also takes care of his wounds however according to social work the arrangements will not be finalized until Friday Full code DVT prophylaxis SCDs (2) Pneumonia: (3) ESRD (end stage renal disease) on dialysis: (4) Hypoxia: (5) Anemia of chronic disease: Admission and Anticipated Discharge Date Admission Date: September 24, 2023 Subjective Patient seen and examined today, he is frustrated that he will be going home today. However explained to him that his antibiotic arrangement has to be streamlined before discharge Review of Systems Review of Systems: All systems reviewed are negative, apart from the ones contained in the history. Physical Exam Physical Exam: The patient is awake, alert and oriented 3, well developed and well nourished, normocephalic and atraumatic, lying in bed and in no acute distress. HEENT--PERRL, EOMI, mucous membranes and oropharynx mildly dry Neck--supple. No JVD. No bruits. Thyroid normal, trachea midline, no adenopathy. Heart--normal S1 and S2. No murmurs, rubs or gallops. Lungs--clear bilaterally, no respiratory distress, no accessory muscle use. Abdomen--normal bowel sounds and soft. Extremities--no cyanosis or clubbing. No edema. Dermatologic--normal skin turgor, normal color, no abnormal lymph nodes, no rash. Neurologic--cranial nerves II through XII grossly intact. Rheumatologic--normal range of motion. Psychiatric--normal affect. Results & Data Results & Data Vital Signs (Past 12 Hours) Vital Signs Temp Pulse Pulse Resp BP Pulse Ox O2 Del Method 09/27/23 07:32 98.1 F 89 18 140/81 97 Room Air 09/27/23 07:14 69 09/27/23 04:08 77 24 96 09/27/23 03:18 98.1 F 77 20 160/83 H 96 CPAP 09/26/23 23:28 75 27 H 98 09/26/23 23:18 98.4 F 82 17 156/78 H 97 Room Air FiO2 09/27/23 07:32 09/27/23 07:14 09/27/23 04:08 21 09/27/23 03:18 09/26/23 23:28 21 09/26/23 23:18 PG Care Time/CCT Total # of Minutes Spent Total Time Spent with Patient: Total time spent is greater than 50% in coordination of care (as documented) at patient's floor/unit and/or counseling patient: Coding Level of Care Code 09327 SUB INP/OBS CARE 2/35MIN Diagnoses Acute hypoxemic respiratory failure J96.01 Pneumonia J18.9 Laterality: right Lung location: middle lobe of lung Pneumonia type: due to unspecified organism ESRD (end stage renal disease) on dialysis N18.6; Z99.2 Hypoxia R09.02 Anemia of chronic disease D63.8 Time Spent (min) 35 (2) Pneumonia Laterality: right Lung location: middle lobe of lung Pneumonia type: due to unspecified organism Qualified Code(s): J18.9 - Pneumonia, unspecified organism
--- NOTE | 2023-09-27 11:54 | Nephrology Progress Note ---
Date of Service September 27, 2023 Assessment & Plan (1) ESRD (end stage renal disease) on dialysis: Plan: Maintained on IHD MWF. Completed treatment yesterday with adequate UF and clearance. Volume status acceptable. Medications appropriately dosed for IHD. Vanco level pre-HD. (2) Anemia of chronic disease: Plan: Epogen 10,000 units provided with HD yesterday. (3) Pneumonia: Plan: Order placed for follow up portal CXR tomorrow AM. (4) Neurogenic bladder: Plan: Indwelling Perry to gravity. (5) Sacral decubitus ulcer, stage IV: Plan: PICC line placed on 09/24/2023 for IV meropenem and vancomycin as per ID recommendation for osteomyelitis. Admission and Anticipated Discharge Date Admission Date: September 24, 2023 Subjective No acute events overnight. No complaints this AM. Tolerated HD well yesterday. No fevers or chills. Denies dyspnea. Expressed understandable frustration that he will not be discharged home over the weekend. Review of Systems Review of Systems: All systems reviewed & are unremarkable except as noted in HPI & below Physical Exam Constitutional: well developed and + thin; no acute distress and not ill appearing Eyes: + anicteric sclerae; no corneal abnormal ity ENMT: Mouth: no oral mucosal abnormality and oral mucous membranes not dry Neck: normal visual inspection and trachea midline Respiratory: normal respiratory effort Auscultation: lungs clear to auscultation bilaterally Cardiovascular: Rate/Rhythm: regular rate Heart Sounds: normal S1, normal S2 and + murmur Extremities: + AV fistula; no edema R PICC Musculoskeletal: Extremities: no cyanosis and no clubbing Skin: normal turgor; no jaundice Neurologic: Motor/Sensory: no tremor and no asterixis Psychiatric: Orientation: alert and oriented x 3 Results & Data Vital Signs (Past 12 Hours) Vital Signs Temp Pulse Pulse Resp BP Pulse Ox O2 Del Method 09/27/23 11:32 36.8 C 63 18 154/68 H 99 Room Air 09/27/23 07:32 36.7 C 89 18 140/81 97 Room Air 09/27/23 07:14 69 09/27/23 04:08 77 24 96 09/27/23 03:18 36.7 C 77 20 160/83 H 96 CPAP FiO2 09/27/23 11:32 09/27/23 07:32 09/27/23 07:14 09/27/23 04:08 21 09/27/23 03:18 Laboratory Results Laboratory Results - last 24 hr 09/27/23 06:39 WBC 5.54 RBC 3.01 L Hgb 9.7 L Hct 31.6 L MCV 105.0 H MCH 32.2 MCHC 30.7 L RDW Std Deviation 64.8 H RDW Coeff of Hector 16.9 H Plt Count 166 MPV 8.7 L Sodium 135 L Potassium 4.1 Chloride 98 Carbon Dioxide 28 Anion Gap 9 BUN 35 H D Creatinine 3.28 H D Est Cr Clr Drug Dosing 20.7 Est GFR ( Amer) 19.9 Est GFR (Non-Af Amer) 17.2 BUN/Creatinine Ratio 10.7 Glucose 84 Calcium 8.6 PG Care Time/CCT Total # of Minutes Spent Total Time Spent with Patient: Total time spent is greater than 50% in coordination of care (as documented) at patient's floor/unit and/or counseling patient: Coding Level of Care Code 12654 SUB INP/OBS CARE 3/50MIN Diagnoses ESRD (end stage renal disease) on dialysis N18.6; Z99.2 Anemia of chronic disease D63.8 Pneumonia J18.9 Laterality: right Lung location: middle lobe of lung Pneumonia type: due to unspecified organism Neurogenic bladder N31.9 Sacral decubitus ulcer, stage IV L89.154 (3) Pneumonia Laterality: right Lung location: middle lobe of lung Pneumonia type: due to unspecified organism Qualified Code(s): J18.9 - Pneumonia, unspecified organism
[2023-09-28 05:50] LABS: Hematocrit (blood only) 30.4 % (42.0-52.0); Hemoglobin 9.6 g/dl (14.0-18.0); Mean Corpuscular Hemoglobin 33.1 pg (25.0-34.0); Mean Corpuscular Hgb Conc 31.6 g/dL (32.0-36.0); Mean Corpuscular Volume 104.8 fL (80.0-100.0); Mean Platelet Volume 8.6 fL (9.4-12.4); Platelet Count 160 K/uL (130-400); RDW Coefficient of Variation 16.6 % (11.5-14.5); RDW Standard Deviation 63.4 fL (36.4-46.3); White Blood Count 5.64 K/ul (4.8-10.8)
[2023-09-28 06:00] LABS: BUN Creatinine Ratio 11.2 (10-20); Calcium 8.4 mg/dl (8.6-10.3); Creatinine Clr Calc Pharmacy 15.6 ml/min; Est GFR (African American) 14.1 ml/min; Est GFR (Non-African American) 12.2 ml/min; Phosphorus 5.8 mg/dl (2.5-4.9); Potassium 4.7 mmol/L (3.5-5.1)
--- NOTE | 2023-09-28 08:18 | XRay Report ---
XR chest 1V portable HISTORY: 78 years-old Male multifocal pneumonia acute shortness of breath with multifocal pneumonia COMPARISON: 09/24/2023 TECHNIQUE: AP view of the chest FINDINGS: Unchanged positioning of the right-sided PICC. Cardiomegaly with median sternotomy. Barium is noted w ithin the splenic flexure. Surgical clips project over the right upper chest. Mixed interstitial and alveolar opacities in the right lung are redemonstrated along with mild patchy left basilar densities . There is slightly better aeration of the right upper lung. Possible small right pleural effusion. B ones appear grossly intact. IMPRESSION: 1. Persistent airspace opacities throughout the right lung and left lung base with mildly improved ae ration of the right upper lung. 2. Stable positioning of the right-sided PICC. 3. Probable small right pleural effusion. ACT 112: Negative or not required by law. The above report was generated using voice recognition software. It may contain grammatical, syntax o r spelling errors. Electronically signed by: Stan Lui M.D. 09/28/2023 8:16 AM
--- NOTE | 2023-09-28 10:34 | Nephrology Progress Note ---
Date of Service September 28, 2023 Assessment & Plan (1) ESRD (end stage renal disease) on dialysis: Plan: Maintained on IHD MWF. BP and volume status acceptable. Medications appropriately dosed for IHD. Vanco level pre-HD. Prelim orders for treatment tomorrow AM entered into the EHR. Continue Renal diet and Renvela QAC. (2) Anemia of chronic disease: Plan: Epogen 10,000 units provided with HD 09/25. (3) Pneumonia: Plan: Follow up CXR reviewed this AM. ASO improving. Clinically improving. (4) Neurogenic bladder: Plan: Indwelling Perry to gravity. (5) Sacral decubitus ulcer, stage IV: Plan: PICC line placed on 09/24/2023 for IV meropenem and vancomycin as per ID recommendation for osteomyelitis. Admission and Anticipated Discharge Date Admission Date: September 24, 2023 Subjective No acute events overnight. No complaints this AM. No fevers or chills. Denies dyspnea. Reports some cough and sensation of congestion when supine. Review of Systems Review of Systems: All systems reviewed & are unremarkable except as noted in HPI & below Physical Exam Constitutional: well developed and + thin; no acute distress and not ill appearing Eyes: + anicteric sclerae; no corneal abnormal ity ENMT: Mouth: no oral mucosal abnormality and oral mucous membranes not dry Neck: normal visual inspection and trachea midline Respiratory: normal respiratory effort Auscultation: lungs clear to auscultation bilaterally Cardiovascular: Rate/Rhythm: regular rate Heart Sounds: normal S1, normal S2 and + murmur Extremities: + AV fistula; no edema Musculoskeletal: Extremities: no cyanosis and no clubbing Skin: normal turgor; no jaundice Neurologic: Motor/Sensory: no tremor and no asterixis Psychiatric: Orientation: alert and oriented x 3 Results & Data Vital Signs (Past 12 Hours) Vital Signs Temp Pulse Pulse Resp BP Pulse Ox O2 Del Method 09/28/23 08:44 64 09/28/23 08:08 37.2 C 73 18 159/89 H 98 Room Air 09/28/23 03:43 37.0 C 68 22 146/85 H 97 BiPAP 09/28/23 03:00 70 24 97 09/27/23 23:44 72 17 97 09/27/23 23:35 37.2 C 70 17 163/91 H 96 Room Air FiO2 09/28/23 08:44 03/03/24 08:08 09/28/23 03:43 09/28/23 03:00 21 09/27/23 23:44 21 09/27/23 23:35 Laboratory Results XR chest 1V portable COMPARISON: 09/24/2023 FINDINGS: Unchanged positioning of the right-sided PICC. Cardiomegaly with median sternotomy. Barium is noted within the splenic flexure. Surgical clips project over the right upper chest. Mixed interstitial and alveolar opacities in the right lung are redemonstrated along with mild patchy left basilar densities. There is slightly better aeration of the right upper lung. Possible small right pleural effusion. Bones appear grossly intact. IMPRESSION: 1. Persistent airspace opacities throughout the right lung and left lung base with mildly improved aeration of the right upper lung. 2. Stable positioning of the right-sided PICC. 3. Probable small right pleural effusion. PG Care Time/CCT Total # of Minutes Spent Total Time Spent with Patient: Total time spent is greater than 50% in coordination of care (as documented) at patient's floor/unit and/or counseling patient: Coding Level of Care Code 86711 SUB INP/OBS CARE 3/50MIN Diagnoses ESRD (end stage renal disease) on dialysis N18.6; Z99.2 Anemia of chronic disease D63.8 Pneumonia J18.9 Laterality: right Lung location: middle lobe of lung Pneumonia type: due to unspecified organism Neurogenic bladder N31.9 Sacral decubitus ulcer, stage IV L89.154 (3) Pneumonia Laterality: right Lung location: middle lobe of lung Pneumonia type: due to unspecified organism Qualified Code(s): J18.9 - Pneumonia, unspecified organism
[2023-09-28] MEDS: VANCOMYCIN HCL 500 MG in NSS 100mL IV ONE (11:34)
--- NOTE | 2023-09-28 11:56 | Hospitalist Progress Note ---
Date of Service September 28, 2023 Assessment & Plan (1) Acute hypoxemic respiratory failure: Plan: Acute Hypoxic Respiratory Failure in the Setting of Pneumonia -Now resolved, patient saturating well on room air -CXR/CT Chest demonstrated multifocal pneumonia -BioFire was negative, procalcitonin surprisingly negative as well - Started on Vancomycin and Meropenem in the ED; plan to continue in the setting on concurrent sacral wound ESRD (end stage renal disease) on dialysis: HD on M/W/F Nephrology consulted for inpatient dialysis Continue sevelamer Continue hemodialysis Sacral Ulcer 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: Patient was hospitalized early August 2023 for sacral wound had an I&D down to the bone, sacral tissue growing C albicans, E. coli Enterococcus Saw infectious disease outpatient and has been started on IV meropenem 1 g daily and also vancomycin for total of 6 weeks Will continue that regimen while here in the hospital. A PICC line has been inserted Consult wound care Neuropathic pain: Continue gabapentin, nortriptyline Oxycodoneacetaminophen q6h as needed for breakthrough pain Anemia of chronic disease: Hgb 10.0; chronic; stable Secondary to ESRD Neurogenic bladder: Perry in place Hyperlipidemia: Continue atorvastatin Anxiety: Continue alprazolam as needed Atrial fibrillation: Continue metoprolol, Eliquis Continue to monitor in the hospital, patient require PICC line. Patient would like to return home with home health. Social work is in the process of streamlining his home antibiotic delivery. According to the patient his is a nurse and can give him his home IV also takes care of his wounds however according to social work the arrangements will not be finalized until Friday Full code DVT prophylaxis SCDs (2) Pneumonia: (3) ESRD (end stage renal disease) on dialysis: (4) Hypoxia: (5) Anemia of chronic disease: Admission and Anticipated Discharge Date Admission Date: September 24, 2023 Subjective Patient seen and examined, no new complaints lying quietly in the bed hoping for discharge tomorrow Review of Systems Review of Systems: All systems reviewed are negative, apart from the ones contained in the history. Physical Exam Physical Exam: The patient is awake, alert and oriented 3, well developed and well nourished, normocephalic and atraumatic, lying in bed and in no acute distress. HEENT--PERRL, EOMI, mucous membranes and oropharynx mildly dry Neck--supple. No JVD. No bruits. Thyroid normal, trachea midline, no adenopathy. Heart--normal S1 and S2. No murmurs, rubs or gallops. Lungs--clear bilaterally, no respiratory distress, no accessory muscle use. Abdomen--normal bowel sounds and soft. Extremities--no cyanosis or clubbing. No edema. Dermatologic--normal skin turgor, normal color, no abnormal lymph nodes, no rash. Neurologic--cranial nerves II through XII grossly intact. Rheumatologic--normal range of motion. Psychiatric--normal affect. Results & Data Results & Data Vital Signs (Past 12 Hours) Vital Signs Temp Pulse Pulse Resp BP Pulse Ox O2 Del Method 09/28/23 08:44 64 09/28/23 08:08 99.0 F 73 18 159/89 H 98 Room Air 09/28/23 03:43 98.6 F 68 22 146/85 H 97 BiPAP 09/28/23 03:00 70 24 97 FiO2 09/28/23 08:44 09/28/23 08:08 09/28/23 03:43 09/28/23 03:00 21 PG Care Time/CCT Total # of Minutes Spent Total Time Spent with Patient: Total time spent is greater than 50% in coordination of care (as documented) at patient's floor/unit and/or counseling patient: Coding Level of Care Code 23511 SUB INP/OBS CARE 2/35MIN Diagnoses Acute hypoxemic respiratory failure J96.01 Pneumonia J18.9 Laterality: right Lung location: middle lobe of lung Pneumonia type: due to unspecified organism ESRD (end stage renal disease) on dialysis N18.6; Z99.2 Hypoxia R09.02 Anemia of chronic disease D63.8 Time Spent (min) 35 (2) Pneumonia Laterality: right Lung location: middle lobe of lung Pneumonia type: due to unspecified organism Qualified Code(s): J18.9 - Pneumonia, unspecified organism
--- NOTE | 2023-09-28 12:24 | Pharmacy Report ---
Pharmacy PK ABX Note - Date of Service September 28, 2023 - Assessment and Plan Assessment 09/27: * Random level 17.3 mcg/ml this morning. HD planned for tomorrow. * Will redose with 500 mg x 1 today given residual urine output and obtain level pre-HD tomorrow 09/25: * Day #3 of antimicrobial therapy. * Random level yesterday was 15.4 mcg/mL. Patient received 500 mg of IV Vancomycin at 0817. * Remains afebrile and without leukocytosis. Plan for HD today, 4 hr session ordered which started at 0927 per technical documentation specialist. * Given patient's residual urine output will give an increase post-HD vancomycin dose today as next HD session will not be until Friday. Want to order a level sooner than Friday given urine output. 09/24: 78 year old M receiving Vancomycin and Meropenem for treatment of sacral osteomyelitis. * Day #1 of antimicrobial therapy. 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 Most recent culture (09/05/23) obtained from [facility] records indication sacral ulcer was growing Pseudomonas aeruginosa, Enterococcus species, and two colonies of Escherichia coli. * E. coli was pansensitive. P. aeruginosa was only susceptible to Meropenem and Tobramycin. Enterococcus species were sensitive to Ampicillin and Vancomycin. Culture also grew Laney albicans. * [facility] ID recommended 6 weeks of IV abx in the form of Meropenem 1 g q24h and Vancomycin to maintain AUC/SAVANNAH of 400-600. Due to insurance issues, neither of these were started prior to this admission. * Patient has ESRD and is on HD MWF. Reports no missed sessions. Had 3.5 hr session 09/24. * Afebrile. No leukocytosis. Blood cultures pending. Plan Vancomycin * Random level today was 17.3 mcg/mL. This is predicted to achieve target AUC/SAVANNAH of 400-600 mg/L.hr * Give Vancomycin 500 mg IV x 1 today * Repeat random level ordered for Friday morning. Meropenem * Will disregarding [facility] policy for meropenem and follow [facility] ID recommended dosing * 1000 mg IV every 24 hours (give after HD on dialysis days) Pharmacy will continue to follow and will adjust dose/frequency as necessary. Thank you. Pharmacy has transitioned to AUC monitoring for vancomycin. AUC/SAVANNAH is the preferred PK/PD target and is associated with decreased risk of nephrotoxicity compared to traditional trough targets.
[2023-09-29 06:14] LABS: Hematocrit (blood only) 28.6 % (42.0-52.0); Hemoglobin 9.3 g/dl (14.0-18.0); Mean Corpuscular Hemoglobin 32.6 pg (25.0-34.0); Mean Corpuscular Hgb Conc 32.5 g/dL (32.0-36.0); Mean Corpuscular Volume 100.4 fL (80.0-100.0); Mean Platelet Volume 8.7 fL (9.4-12.4); Platelet Count 157 K/uL (130-400); RDW Coefficient of Variation 15.9 % (11.5-14.5); RDW Standard Deviation 58.6 fL (36.4-46.3); Red Blood Count 2.85 M/uL (4.70-6.10); White Blood Count 5.82 K/ul (4.8-10.8)
[2023-09-29 06:37] LABS: BUN Creatinine Ratio 11.7 (10-20); Calcium 8.3 mg/dl (8.6-10.3); Creatinine Clr Calc Pharmacy 12.8 ml/min; Est GFR (African American) 11.2 ml/min; Est GFR (Non-African American) 9.6 ml/min
--- NOTE | 2023-09-29 08:34 | Pharmacy Report ---
Pharmacy PK ABX Note - Date of Service September 29, 2023 - Assessment and Plan Assessment 09/28: * Random pre-dialysis level therapeutic, post dialysis vancomyicn ordered per protocol. Blood cultures NGx5D, patient afebrile, WBC WNL. 09/27: * Random level 17.3 mcg/ml this morning. HD planned for tomorrow. * Will redose with 500 mg x 1 today given residual urine output and obtain level pre-HD tomorrow 09/25: * Day #3 of antimicrobial therapy. * Random level yesterday was 15.4 mcg/mL. Patient received 500 mg of IV Vancomycin at 0817. * Remains afebrile and without leukocytosis. Plan for HD today, 4 hr session ordered which started at 09 per testing consultant. * Given patient's residual urine output will give an increase post-HD vancomycin dose today as next HD session will not be until Friday. Want to order a level sooner than Friday given urine output. 09/24: 78 year old M receiving Vancomycin and Meropenem for treatment of sacral osteomyelitis. * Day #1 of antimicrobial therapy. 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 Most recent culture (09/05/23) obtained from [facility] records indication sacral ulcer was growing Pseudomonas aeruginosa, Enterococcus species, and two colonies of Escherichia coli. * E. coli was pansensitive. P. aeruginosa was only susceptible to Meropenem and Tobramycin. Enterococcus species were sensitive to Ampicillin and Vancomycin. Culture also grew Laney albicans. * [facility] ID recommended 6 weeks of IV abx in the form of Meropenem 1 g q24h and Vancomycin to maintain AUC/SAVANNAH of 400-600. Due to insurance issues, neither of these were started prior to this admission. * Patient has ESRD and is on HD MWF. Reports no missed sessions. Had 3.5 hr session 09/24. * Afebrile. No leukocytosis. Blood cultures pending. Plan Vancomycin * Random level today was 18.3 mcg/mL. This is predicted to achieve target AUC/SAVANNAH of 400-600 mg/L.hr * Give Vancomycin 750 mg IV x 1 today post-HD * Repeat random level ordered for Friday 3/6 AM Meropenem * Will disregarding [facility] policy for meropenem and follow [facility] ID recommended dosing * 1000 mg IV every 24 hours (give after HD on dialysis days) Pharmacy will continue to follow and will adjust dose/frequency as necessary. Thank you. Pharmacy has transitioned to AUC monitoring for vancomycin. AUC/SAVANNAH is the preferred PK/PD target and is associated with decreased risk of nephrotoxicity compared to traditional trough targets.
--- NOTE | 2023-09-29 11:03 | Nephrology Progress Note ---
Date of Service September 29, 2023 Assessment & Plan (1) ESRD (end stage renal disease) on dialysis: Plan: Maintained on IHD MWF. Orders for HD today entered into the EHR and reviewed with camp counselor. Tolerating treatment well. Qb at goal. Clearance acceptable. Medications appropriately dosed for IHD. Vanco dosing per pharmacy. Continue Renal diet and Renvela QAC. (2) Anemia of chronic disease: Plan: Epogen 10,000 units provided with HD 09/25. (3) Pneumonia: Plan: Clinically improving. (4) Neurogenic bladder: Plan: Indwelling Perry to gravity. (5) Sacral decubitus ulcer, stage IV: Plan: PICC line placed on 09/24/2023 for IV meropenem and vancomycin as per ID recommendation for osteomyelitis. Admission and Anticipated Discharge Date Admission Date: September 24, 2023 Subjective No acute events overnight. No complaints this AM. Sylvester was seen and evaluated during hemodialysis. He is tolerating treatment well. Qb at goal. BP acceptable. Anticipates discharge home later today. Review of Systems Review of Systems: All systems reviewed & are unremarkable except as noted in HPI & below Physical Exam Constitutional: well developed and + thin; no acute distress and not ill appearing Eyes: + anicteric sclerae; no corneal abnormal ity ENMT: Mouth: no oral mucosal abnormality and oral mucous membranes not dry Neck: normal visual inspection and trachea midline Respiratory: normal respiratory effort Auscultation: lungs clear to auscultation bilaterally Cardiovascular: Rate/Rhythm: regular rate Heart Sounds: normal S1, normal S2 and + murmur Extremities: + AV fistula; no edema Musculoskeletal: Extremities: no cyanosis and no clubbing Skin: normal turgor; no jaundice Neurologic: Motor/Sensory: no tremor and no asterixis Psychiatric: Orientation: alert and oriented x 3 Results & Data Vital Signs (Past 12 Hours) Vital Signs Temp Pulse Pulse Pulse Resp BP BP 09/29/23 10:30 67 127/67 09/29/23 10:18 09/29/23 10:00 66 125/73 09/29/23 09:38 61 138/77 09/29/23 09:30 36.5 C 67 09/29/23 07:31 36.7 C 63 18 167/92 H 09/29/23 06:00 64 09/29/23 04:05 36.8 C 66 17 155/82 H 09/29/23 03:26 75 23 09/29/23 00:00 09/28/23 23:50 75 14 09/28/23 23:35 37.0 C 75 16 164/84 H Pulse Ox O2 Del Method FiO2 09/29/23 10:30 09/29/23 10:18 Room Air 09/29/23 10:00 09/29/23 09:38 09/29/23 09:30 09/29/23 07:31 98 Room Air 09/29/23 06:00 09/29/23 04:05 96 CPAP 09/29/23 03:26 95 21 09/29/23 00:00 Room Air 09/28/23 23:50 97 21 09/28/23 23:35 96 Room Air Laboratory Results Laboratory Results - last 24 hr 09/29/23 05:39 WBC 5.82 RBC 2.85 L Hgb 9.3 L Hct 28.6 L MCV 100.4 H MCH 32.6 MCHC 32.5 RDW Std Deviation 58.6 H RDW Coeff of Hector 15.9 H Plt Count 157 MPV 8.7 L Sodium 130 L Potassium 5.0 Chloride 98 Carbon Dioxide 23 Anion Gap 9 BUN 62 H Creatinine 5.30 H* D Est Cr Clr Drug Dosing 12.8 Est GFR ( Amer) 11.2 Est GFR (Non-Af Amer) 9.6 BUN/Creatinine Ratio 11.7 Glucose 85 Calcium 8.3 L Random Vancomycin 18.3 PG Care Time/CCT Total # of Minutes Spent Total Time Spent with Patient: Total time spent is greater than 50% in coordination of care (as documented) at patient's floor/unit and/or counseling patient: Coding Level of Care Code 16575 SUB INP/OBS CARE 3/50MIN Diagnoses ESRD (end stage renal disease) on dialysis N18.6; Z99.2 Anemia of chronic disease D63.8 Pneumonia J18.9 Laterality: right Lung location: middle lobe of lung Pneumonia type: due to unspecified organism Neurogenic bladder N31.9 Sacral decubitus ulcer, stage IV L89.154 (3) Pneumonia Laterality: right Lung location: middle lobe of lung Pneumonia type: due to unspecified organism Qualified Code(s): J18.9 - Pneumonia, unspecified organism
--- NOTE | 2023-09-29 13:42 | Hospitalist Progress Note ---
Date of Service September 29, 2023 Assessment & Plan (1) Acute hypoxemic respiratory failure: Plan: Acute Hypoxic Respiratory Failure in the Setting of Pneumonia -Now resolved, patient saturating well on room air -CXR/CT Chest demonstrated multifocal pneumonia -BioFire was negative, procalcitonin surprisingly negative as well - Started on Vancomycin and Meropenem in the ED; plan to continue in the setting on concurrent sacral wound ESRD (end stage renal disease) on dialysis: HD on M/W/F Nephrology consulted for inpatient dialysis Continue sevelamer Continue hemodialysis Sacral Ulcer 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: Patient was hospitalized early August 2023 for sacral wound had an I&D down to the bone, sacral tissue growing C albicans, E. coli Enterococcus Saw infectious disease outpatient and has been started on IV meropenem 1 g daily and also vancomycin for total of 6 weeks Will continue that regimen while here in the hospital. A PICC line has been inserted Consult wound care Case management working on outpatient antibiotics Patient will need home health services Neuropathic pain: Continue gabapentin, nortriptyline Oxycodoneacetaminophen q6h as needed for breakthrough pain Anemia of chronic disease: Hgb 10.0; chronic; stable Secondary to ESRD Neurogenic bladder: Perry in place Hyperlipidemia: Continue atorvastatin Anxiety: Continue alprazolam as needed Atrial fibrillation: Continue metoprolol, Eliquis PICC line placed. Patient would like to return home with home health. Social work is in the process of streamlining his home antibiotic delivery. 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 Per case management, home health cannot see him until . Full code DVT prophylaxis SCDs (2) Pneumonia: (3) ESRD (end stage renal disease) on dialysis: (4) Hypoxia: (5) Anemia of chronic disease: Admission and Anticipated Discharge Date Admission Date: September 24, 2023 Subjective Patient was seen at dialysis. He is hoping his outpatient antibiotic regimen will be arranged for soon so he can go home. No new complaints. No chest pain or shortness of breath Review of Systems Review of Systems: All systems reviewed & are unremarkable except as noted in Subjective Physical Exam Physical Exam: General: Awake, conversant Heart: S1, S2/regular rate and rhythm, no murmur rubs or gallops Lungs: Clear to auscultation bilaterally. Normal effort Abdomen: Soft/nontender/nondistended. No hepatosplenomegaly Extremities: No clubbing/cyanosis. No edema Behavior: Appropriate, cooperative Results & Data Results & Data Vital Signs (Past 12 Hours) Vital Signs Temp Pulse Pulse Pulse Resp BP BP 09/29/23 12:30 81 156/78 H 09/29/23 12:00 87 127/74 09/29/23 11:30 69 137/65 09/29/23 11:00 70 149/75 H 09/29/23 10:30 67 127/67 09/29/23 10:18 09/29/23 10:00 66 125/73 09/29/23 09:38 61 138/77 09/29/23 09:30 36.5 C 67 09/29/23 07:31 36.7 C 63 18 167/92 H 09/29/23 06:00 64 09/29/23 04:05 36.8 C 66 17 155/82 H 09/29/23 03:26 75 23 Pulse Ox O2 Del Method FiO2 09/29/23 12:30 09/29/23 12:00 09/29/23 11:30 09/29/23 11:00 09/29/23 10:30 09/29/23 10:18 Room Air 09/29/23 10:00 09/29/23 09:38 09/29/23 09:30 09/29/23 07:31 98 Room Air 09/29/23 06:00 09/29/23 04:05 96 CPAP 09/29/23 03:26 95 21 PG Care Time/CCT Total # of Minutes Spent Total Time Spent with Patient: Total time spent is greater than 50% in coordination of care (as documented) at patient's floor/unit and/or counseling patient: Coding Level of Care Code 02149 SUB INP/OBS CARE 2/35MIN Diagnoses Acute hypoxemic respiratory failure J96.01 Pneumonia J18.9 Laterality: right Lung location: middle lobe of lung Pneumonia type: due to unspecified organism ESRD (end stage renal disease) on dialysis N18.6; Z99.2 Hypoxia R09.02 Anemia of chronic disease D63.8 (2) Pneumonia Laterality: right Lung location: middle lobe of lung Pneumonia type: due to unspecified organism Qualified Code(s): J18.9 - Pneumonia, unspecified organism
[2023-09-29] MEDS: VANCOMYCIN HCL 750 MG in SODIUM CHLORIDE 0.9% 250 ML IV ONE (14:02)
[2023-09-29] MEDS ORDERED: MEROPENEM 1,000 MG in SYRINGE 0 ML IV ONE (16:45)
[2023-09-29] MEDS: MEROPENEM 1,000 MG in SYRINGE 0 ML IV SCH (17:35)
--- NOTE | 2023-09-30 12:50 | Hospitalist Progress Note ---
Date of Service September 30, 2023 Assessment & Plan (1) Acute hypoxemic respiratory failure: Plan: Acute Hypoxic Respiratory Failure in the Setting of Pneumonia -Now resolved, patient saturating well on room air -CXR/CT Chest demonstrated multifocal pneumonia -BioFire was negative, procalcitonin surprisingly negative as well - Started on Vancomycin and Meropenem in the ED; plan to continue in the setting on concurrent sacral wound ESRD (end stage renal disease) on dialysis: HD on M/W/F Nephrology consulted for inpatient dialysis Continue sevelamer Continue hemodialysis Sacral Ulcer 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: Patient was hospitalized early August 2023 for sacral wound had an I&D down to the bone, sacral tissue growing C albicans, E. coli Enterococcus Saw infectious disease outpatient and has been started on IV meropenem 1 g daily and also vancomycin for total of 6 weeks Will continue that regimen while here in the hospital. A PICC line has been inserted Consult wound care Case management working on outpatient antibiotics Patient will need home health services Neuropathic pain: Continue gabapentin, nortriptyline Oxycodoneacetaminophen q6h as needed for breakthrough pain Anemia of chronic disease: Hgb 10.0; chronic; stable Secondary to ESRD Neurogenic bladder: Perry in place Hyperlipidemia: Continue atorvastatin Anxiety: Continue alprazolam as needed Atrial fibrillation: Continue metoprolol, Eliquis PICC line placed. Patient would like to return home with home health. Social work is in the process of streamlining his home antibiotic delivery. 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 Per case management, home health cannot see him until . Anticipated discharge 3/4 after dialysis and antibiotics Full code DVT prophylaxis SCDs (2) Pneumonia: (3) ESRD (end stage renal disease) on dialysis: (4) Hypoxia: (5) Anemia of chronic disease: Admission and Anticipated Discharge Date Admission Date: September 24, 2023 Subjective Patient feels well. Denies chest pain or shortness of breath. Review of Systems Review of Systems: All systems reviewed & are unremarkable except as noted in Subjective Physical Exam Physical Exam: General: Awake, conversant Heart: S1, S2/regular rate and rhythm, no murmur rubs or gallops Lungs: Clear to auscultation bilaterally. Normal effort Abdomen: Soft/nontender/nondistended. No hepatosplenomegaly Extremities: No clubbing/cyanosis. No edema Behavior: Appropriate, cooperative Results & Data Results & Data Vital Signs (Past 12 Hours) Vital Signs Temp Pulse Pulse Resp BP Pulse Ox O2 Del Method 09/30/23 11:08 36.9 C 67 18 136/74 100 Room Air 09/30/23 07:39 36.7 C 72 18 149/82 H 96 Room Air 09/30/23 07:30 62 09/30/23 07:30 62 09/30/23 03:51 78 18 96 09/30/23 03:38 37.0 C 69 22 135/85 96 CPAP FiO2 09/30/23 11:08 09/30/23 07:39 09/30/23 07:30 09/30/23 07:30 09/30/23 03:51 21 09/30/23 03:38 PG Care Time/CCT Total # of Minutes Spent Total Time Spent with Patient: Total time spent is greater than 50% in coordination of care (as documented) at patient's floor/unit and/or counseling patient: Coding Level of Care Code 02937 SUB INP/OBS CARE 2/35MIN Diagnoses Acute hypoxemic respiratory failure J96.01 Pneumonia J18.9 Laterality: right Lung location: middle lobe of lung Pneumonia type: due to unspecified organism ESRD (end stage renal disease) on dialysis N18.6; Z99.2 Hypoxia R09.02 Anemia of chronic disease D63.8 (2) Pneumonia Laterality: right Lung location: middle lobe of lung Pneumonia type: due to unspecified organism Qualified Code(s): J18.9 - Pneumonia, unspecified organism
[2023-09-30] MEDS: MEROPENEM 1,000 MG in SYRINGE 0 ML IV SCH (13:22)
--- NOTE | 2023-09-30 19:31 | Nephrology Progress Note ---
Date of Service September 30, 2023 Assessment & Plan (1) ESRD (end stage renal disease) on dialysis: Plan: Maintained on IHD MWF. BP and volume status acceptable. Adequate clearance with treatment. Next HD tomorrow. Medications appropriately dosed for IHD. Vanco dosing per pharmacy. Continue Renal diet and Renvela QAC. (2) Anemia of chronic disease: Plan: Epogen 10,000 units provided with HD 09/25. Additional 10,000 units with HD tomorrow. (3) Pneumonia: Plan: Clinically improving. (4) Neurogenic bladder: Plan: Indwelling Perry to gravity. (5) Sacral decubitus ulcer, stage IV: Plan: PICC line placed on 09/24/2023 for IV meropenem and vancomycin as per ID recommendation for osteomyelitis. Admission and Anticipated Discharge Date Admission Date: September 24, 2023 Subjective No acute events overnight. Tolerated HD well yesterday. Review of Systems Review of Systems: All systems reviewed & are unremarkable except as noted in HPI & below Physical Exam Constitutional: well developed and + thin; no acute distress and not ill appearing Eyes: + anicteric sclerae; no corneal abnormal ity ENMT: Mouth: no oral mucosal abnormality and oral mucous membranes not dry Neck: normal visual inspection and trachea midline Respiratory: normal respiratory effort Auscultation: lungs clear to auscultation bilaterally Cardiovascular: Rate/Rhythm: regular rate Heart Sounds: normal S1, normal S2 and + murmur Extremities: + AV fistula; no edema Musculoskeletal: Extremities: no cyanosis and no clubbing Skin: normal turgor; no jaundice Neurologic: Motor/Sensory: no tremor and no asterixis Psychiatric: Orientation: alert and oriented x 3 Results & Data Vital Signs (Past 12 Hours) Vital Signs Temp Pulse Pulse Resp BP Pulse Ox O2 Del Method 09/30/23 07:39 36.7 C 72 18 149/82 H 96 Room Air 09/30/23 07:30 62 09/30/23 07:30 62 09/30/23 03:51 78 18 96 09/30/23 03:38 37.0 C 69 22 135/85 96 CPAP 09/29/23 23:46 36.8 C 73 17 134/78 97 Room Air 09/29/23 23:30 92 H 20 98 FiO2 09/30/23 07:39 09/30/23 07:30 09/30/23 07:30 09/30/23 03:51 21 09/30/23 03:38 09/29/23 23:46 09/29/23 23:30 21 PG Care Time/CCT Total # of Minutes Spent Total Time Spent with Patient: Total time spent is greater than 50% in coordination of care (as documented) at patient's floor/unit and/or counseling patient: Coding Level of Care Code 25582 SUB INP/OBS CARE 3/50MIN Diagnoses ESRD (end stage renal disease) on dialysis N18.6; Z99.2 Anemia of chronic disease D63.8 Pneumonia J18.9 Laterality: right Lung location: middle lobe of lung Pneumonia type: due to unspecified organism Neurogenic bladder N31.9 Sacral decubitus ulcer, stage IV L89.154 (3) Pneumonia Laterality: right Lung location: middle lobe of lung Pneumonia type: due to unspecified organism Qualified Code(s): J18.9 - Pneumonia, unspecified organism
[2023-10-01 05:59] LABS: Hematocrit (blood only) 29.7 % (42.0-52.0); Hemoglobin 9.3 g/dl (14.0-18.0)
[2023-10-01 06:21] LABS: BUN Creatinine Ratio 10.6 (10-20); Calcium 8.2 mg/dl (8.6-10.3); Est GFR (African American) 13.5 ml/min; Est GFR (Non-African American) 11.7 ml/min; Potassium 4.8 mmol/L (3.5-5.1)
--- NOTE | 2023-10-01 10:44 | Pharmacy Report ---
Pharmacy PK ABX Note - Date of Service October 01, 2023 - Assessment and Plan Assessment 09/30: * Random pre-dialysis level therapeutic, post dialysis vancomycin ordered per protocol. Patient to be discharged again. Pre-dialysis level for 10/02 to be ordered if discharge held. 09/28: * Random pre-dialysis level therapeutic, post dialysis vancomyicn ordered per protocol. Blood cultures NGx5D, patient afebrile, WBC WNL. 09/27: * Random level 17.3 mcg/ml this morning. HD planned for tomorrow. * Will redose with 500 mg x 1 today given residual urine output and obtain level pre-HD tomorrow 09/25: * Day #3 of antimicrobial therapy. * Random level yesterday was 15.4 mcg/mL. Patient received 500 mg of IV Vancomycin at 0817. * Remains afebrile and without leukocytosis. Plan for HD today, 4 hr session ordered which started at 0927 per glue mixer. * Given patient's residual urine output will give an increase post-HD vancomycin dose today as next HD session will not be until Friday. Want to order a level sooner than Friday given urine output. 09/24: 78 year old M receiving Vancomycin and Meropenem for treatment of sacral osteomyelitis. * Day #1 of antimicrobial therapy. 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 [facility] recent [facility]09[facility]05/23[facility] sacral ulcer was growing Pseudomonas aeruginosa, Enterococcus species, and two colonies of Escherichia coli. * E. coli was pansensitive. P. aeruginosa was only susceptible to Meropenem and Tobramycin. Enterococcus species were sensitive to Ampicillin and Vancomycin. Culture also grew Laney albicans. * [facility] ID recommended 6 weeks of IV abx in the form of Meropenem 1 g q24h and Vancomycin to maintain AUC/SAVANNAH of 400-600. Due to insurance issues, neither of these were started prior to this admission. * Patient has ESRD and is on HD MWF. Reports no missed sessions. Had 3.5 hr session 09/24. * Afebrile. No leukocytosis. Blood cultures pending. Plan Vancomycin * Random pre-dialysis level today was 17.2 mcg/mL. This is predicted to achieve target AUC/SAVANNAH of 400-600 mg/L.hr * Give Vancomycin 750 mg IV x 1 today post-HD * Repeat random level for 10/02 if not discharged Meropenem * Will disregarding [facility] policy for meropenem and follow Mis LANGLEY recommended dosing * 1000 mg IV every 24 hours (give after HD on dialysis days) Pharmacy will continue to follow and will adjust dose/frequency as necessary. Thank you. Pharmacy has transitioned to AUC monitoring for vancomycin. AUC/SAVANNAH is the preferred PK/PD target and is associated with decreased risk of nephrotoxicity compared to traditional trough targets.
[2023-10-01] MEDS: EPOETIN ALFA 10,000 UNITS/ML VIAL IV ONE (11:04)
--- NOTE | 2023-10-01 11:48 | Nephrology Progress Note ---
Date of Service October 01, 2023 Assessment & Plan (1) ESRD (end stage renal disease) on dialysis: Plan: Maintained on IHD MWF. Orders for HD today entered into the EHR and reviewed with the RN. Sylvester was seen and evaluated during HD. He is tolerating treatment well. Qb at goal. BP acceptable. Tolerating UF well. Medications appropriately dosed for IHD. Vanco dosing per pharmacy. Continue Renal diet and Renvela QAC. (2) Anemia of chronic disease: Plan: Epogen 10,000 units provided with HD 09/25. Additional 10,000 units with HD today. (3) Pneumonia: Plan: Clinically improving. (4) Neurogenic bladder: Plan: Indwelling Perry to gravity. (5) Sacral decubitus ulcer, stage IV: Plan: PICC line placed on 09/24/2023 for IV meropenem and vancomycin as per ID recommendation for osteomyelitis. Admission and Anticipated Discharge Date Admission Date: September 24, 2023 Subjective No acute events overnight. No complaints this AM. Sylvester was seen and evaluated during hemodialysis. Review of Systems Review of Systems: All systems reviewed & are unremarkable except as noted in HPI & below Physical Exam Constitutional: well developed and + thin; no acute distress and not ill appearing Eyes: + anicteric sclerae; no corneal abnormal ity ENMT: Mouth: no oral mucosal abnormality and oral mucous membranes not dry Neck: normal visual inspection and trachea midline Respiratory: normal respiratory effort Auscultation: lungs clear to auscultation bilaterally Cardiovascular: Rate/Rhythm: regular rate Heart Sounds: normal S1, normal S2 and + murmur Extremities: + AV fistula; no edema Musculoskeletal: Extremities: no cyanosis and no clubbing Skin: normal turgor; no jaundice Neurologic: Motor/Sensory: no tremor and no asterixis Psychiatric: Orientation: alert and oriented x 3 Results & Data Vital Signs (Past 12 Hours) Vital Signs Temp Pulse Pulse Resp BP BP Pulse Ox 10/01/23 11:30 79 139/71 10/01/23 11:00 66 135/67 10/01/23 10:30 66 140/67 10/01/23 10:27 64 10/01/23 10:00 66 139/70 10/01/23 09:30 75 140/77 10/01/23 09:10 36.5 C 77 10/01/23 07:30 36.7 C 66 18 150/81 H 96 10/01/23 03:51 36.6 C 65 18 146/76 H 96 10/01/23 03:46 78 24 94 O2 Del Method FiO2 10/01/23 11:30 10/01/23 11:00 10/01/23 10:30 10/01/23 10:27 10/01/23 10:00 10/01/23 09:30 10/01/23 09:10 10/01/23 07:30 Room Air 10/01/23 03:51 CPAP 10/01/23 03:46 21 Laboratory Results Laboratory Results - last 24 hr 10/01/23 10/01/23 05:32 08:44 Hgb 9.3 L Hct 29.7 L Sodium 136 Potassium 4.8 Chloride 104 Carbon Dioxide 23 Anion Gap 9 BUN 48 H Creatinine 4.52 H* D Est Cr Clr Drug Dosing 15.0 Est GFR ( Amer) 13.5 Est GFR (Non-Af Amer) 11.7 BUN/Creatinine Ratio 10.6 Glucose 78 Calcium 8.2 L Random Vancomycin 17.2 PG Care Time/CCT Total # of Minutes Spent Total Time Spent with Patient: Total time spent is greater than 50% in coordination of care (as documented) at patient's floor/unit and/or counseling patient: Coding Level of Care Code 18177 SUB INP/OBS CARE 3/50MIN Diagnoses ESRD (end stage renal disease) on dialysis N18.6; Z99.2 Anemia of chronic disease D63.8 Pneumonia J18.9 Laterality: right Lung location: middle lobe of lung Pneumonia type: due to unspecified organism Neurogenic bladder N31.9 Sacral decubitus ulcer, stage IV L89.154 (3) Pneumonia Laterality: right Lung location: middle lobe of lung Pneumonia type: due to unspecified organism Qualified Code(s): J18.9 - Pneumonia, unspecified organism
[2023-10-01] MEDS: VANCOMYCIN HCL 750 MG in SODIUM CHLORIDE 0.9% 250 ML IV ONE (14:06)
--- NOTE | 2023-10-01 15:45 | Discharge Summary ---
Date of Service October 01, 2023 Admission HPI Per Admitting Provider 78 year old male with a past medical history of ESRD on HD M/W/F, anxiety, atrial fibrillation, HTN, sacral decubitus ulcer (stage IV), neurogenic bladder, sleep apnea, s/p sigmoid colostomy placement presenting to the ED for acute onset dyspnea. and son are in the room with him. States that he became acutely short of breath this evening. This prompted his to call EMS. Pt was put on non-rebreather by EMS and then transitioned to CPAP. Upon presentation to ED he was transitioned to BiPAP. Follows with Dr. Paul, has not missed any dialysis sessions. Denies fever, chills, chest pain. When I saw him he was off BiPAP, on 4L NC. States his dyspnea has improved significantly. Admission Exam Per Admitting Provider Constitutional: well-appearing, no acute distress HEENT: NCAT, no conjunctival injection CV: regular rhythm, no murmur appreciated, extremities well-perfused, trace LE edema Resp: CTABL, +rales B/L in bases, no increased work of breathing GI: soft, nondistended, nontender, + ostomy MSK: no gross deformities appreciated Skin: warm, dry, no rash appreciated Neuro: alert, oriented, no focal neurologic deficit appreciated Principal Diagnosis 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, being discharged on IV antibiotics Acute hypoxic respiratory failure in the setting of pneumonia Discharge Exam General: Awake, conversant Heart: S1, S2/regular rate and rhythm, no murmur rubs or gallops Lungs: Clear to auscultation bilaterally. Normal effort Abdomen: Soft/nontender/nondistended. No hepatosplenomegaly Extremities: No clubbing/cyanosis. No edema Behavior: Appropriate, cooperative Discharge Data Allergies Allergy/AdvReac Type Severity Reaction Status Date / Time tetracycline Allergy Intermediate HIVES Verified 09/23/23 23:35 morphine AdvReac Intermediate Nausea Verified 09/23/23 23:35 Consultations 09/24/23 01:16 Consult Nephrology Routine 09/24/23 01:27 ED Decision to Admit Stat Ordered Studies 09/24/23 00:35 CT chest diagnostic wo con Stat 09/25/23 13:45 FL video swallow Routine Hospital Course (1) Acute hypoxemic respiratory failure: Acute Hypoxic Respiratory Failure in the Setting of Pneumonia -Now resolved, patient saturating well on room air -CXR/CT Chest demonstrated multifocal pneumonia -BioFire was negative, procalcitonin surprisingly negative as well - Started on Vancomycin and Meropenem in the ED; plan to continue in the setting on concurrent sacral wound ESRD (end stage renal disease) on dialysis: HD on // Nephrology consulted for inpatient dialysis Continue sevelamer Continue hemodialysis Sacral Ulcer 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: Patient was hospitalized early August 2023 for sacral wound had an I&D down to the bone, sacral tissue growing C albicans, E. coli Enterococcus Saw infectious disease outpatient and has been started on IV meropenem 1 g daily and also vancomycin for total of 6 weeks Will continue that regimen while here in the hospital. A PICC line has been inserted Consult wound care Arrangements have been made to continue IV antibiotics outpatient for total of 6 weeks to be given on dialysis days. End date: 11/04 Home health services arranged for Neuropathic pain: Continue gabapentin, nortriptyline Oxycodoneacetaminophen q6h as needed for breakthrough pain Anemia of chronic disease: Hgb 10.0; chronic; stable Secondary to ESRD Neurogenic bladder: Perry in place Hyperlipidemia: Continue atorvastatin Anxiety: Continue alprazolam as needed Atrial fibrillation: Continue metoprolol, Eliquis Discharge to home today with home health services Full code DVT prophylaxis SCDs (2) Pneumonia: (3) ESRD (end stage renal disease) on dialysis: (4) Hypoxia: (5) Anemia of chronic disease: Total Time Total Time Spent Total Time Spent (In Minutes): 35 Discharge Plan Discharge Items Patient Disposition: Home - Home Health Services Reason For Visit: ACUTE HYPOXIC RESPIRATORY FAILURE Discharge Diagnosis: 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, being discharged on IV antibiotics Acute hypoxic respiratory failure in the setting of pneumonia Activity: Resume your previous activity Non-emergency contact: Primary Care Provider Call non-emergency contact if: you have any medication questions and your symptoms worsen Follow-up/Referrals: Jasiel Pineda DO [Primary Care Provider] - 10/09/23 11:30 am Diet: Heart Healthy Addtl Attending Provider Instructions: Advised to follow-up with PCP in 1 week ID recommendations: Meropenem 1 g every 24 hours 30-minute infusion administered after dialysis on dialysis days and vancomycin IV to maintain AUC 400-600. End date: 11/05/2023 Check CRP for baseline and every other week Weekly labs with CBC with differential, CMP and vancomycin level weekly while on antibiotics Total 6 weeks of antibiotics recommended Pending Studies at Discharge: No Stand-Alone Forms: My [facility] Medications and DC Order Prescriptions: New meropenem 1 gram recon soln 1 g IV DAILY vancomycin 1,000 mg recon soln 1 g IV DAILY Qty: 10 0RF Continued (DME) Power Wheelchair Device See Rx Instructions .Route Qty: 1 0RF Rx Instructions: POWER WHEELCHAIR, DX: R53.1, R26.2 Eliquis 2.5 mg tablet 2.5 mg PO BID Qty: 180 3RF gabapentin 300 mg capsule 600 mg PO HS Qty: 180 5RF Renal Caps 1 mg capsule 1 cap PO QAM Qty: 90 3RF alprazolam 0.25 mg tablet 0.25 mg PO HS PRN (Reason: Anxiety) Qty: 30 0RF nortriptyline [Pamelor] 25 mg capsule 25 mg PO HS Qty: 90 3RF oxycodone-acetaminophen [Percocet] 5-325 mg tablet 1 tab PO Q6H PRN (Reason: pain) Qty: 30 0RF atorvastatin [Lipitor] 20 mg tablet 20 mg PO QPM Qty: 90 4RF metoprolol succinate 25 mg tablet extended release 24 hr 25 mg PO QAM Qty: 90 3RF cholecalciferol (vitamin D3) [Vitamin D3] 50 mcg (2,000 unit) Tablet 50 mcg PO QPM sevelamer carbonate 800 mg tablet See Rx Instructions .ROUTE .COMPLEX Rx Instructions: TAKES 800 MG WITH BREAKFAST & LUNCH, THEN 1,600 MG WITH SUPPER. Discharge Orders: Discharge Order (Routine); Ordered 10/01/23 Ordered By: Marcie Emerson Admission Data Admit Date/Time: 09/24/23 01:16 Attending Provider: Marcie Emerson Admit Provider: Lynn Pandey Primary Care Provider: Jasiel Pineda Other Providers: Carrillo Tony; Cheyanne Cano; Gilbert Paul; Nancie Howard; Jaden Hay; [facility]; [place] Coding Level of Care Code 91419 INP/OBS DISCH >30 MIN Diagnoses Acute hypoxemic respiratory failure J96.01 Pneumonia J18.9 Laterality: right Lung location: middle lobe of lung Pneumonia type: due to unspecified organism ESRD (end stage renal disease) on dialysis N18.6; Z99.2 Hypoxia R09.02 Anemia of chronic disease D63.8
[2023-10-02] MEDS ORDERED: EPOETIN ALFA 10,000 UNITS/ML VIAL IV ONE (07:00)
== END 2023-10-01 16:08 | disposition home health service (06) | DRG 193 ==
LOC: ED 23:09 → SUATTDRO 09-24 01:16 → EDINP 09-24 01:16 → 2S 09-24 02:24

== ENCOUNTER 2024-04-12 19:25 | Inpatient (IN) ==
--- NOTE | 2024-04-12 20:15 | Emergency Department Note ---
Impression & Plan Altered bowel elimination due to intestinal ostomy ADMIT ED Provider Note HPI: History obtained from patient and patient's at the bedside. The patient is a 78-year-old gentleman who is nonambulatory, presents to the emergency department with rectal drainage. Patient's is at the bedside and serves primary history. She states the patient does have chronic history of paraplegia and in April 2023 had a sigmoid loop ostomy performed here at this facility by Dr. Hou. She states that she noticed yesterday the patient was draining some material from his rectum that appeared to be stool. She states that he has not had this issue in the past 11 months since his surgery. Patient denies any vomiting, denies any abdominal pain. He states he has been "lower energy" over about the past week. Patient otherwise appears to be in no acute distress on arrival. ROS: - Per HPI Differential Diagnosis: Sepsis, urinary tract infection, intra-abdominal abscess, intestinal fistula/ostomy fistula, perirectal abscess, pneumonia, viral respiratory infection, amongst other potential pathologies. *Outpatient medications and allergy history reviewed. PE: General: Alert, no acute distress HEENT: Normocephalic, trachea midline Eyes: Extraocular eye movement is intact, no scleral erythema Pulmonary: Clear to auscultation bilaterally, no wheezing Cardio: Regular rate and rhythm GI: Abdomen is soft to palpation, ostomy to the left lower quadrant with appropriate stool drainage in the bag, surrounding skin is without surrounding erythema or drainage from the ostomy site, rectal exam shows external hemorrhoids without any active bleeding, occult stool testing is negative : No suprapubic tenderness MSK: No evidence of trauma or malformation of the extremities, no edema Skin: Stage IV sacral decubitus ulcer noted without any surrounding erythema or purulent drainage from the wound, otherwise no evidence of rash Neuro: Baseline paraplegia, alert, no new focal deficits Psychiatric: Cooperative INDEPENDENT INTERPRETATIONS: customer loyalty representative: (As interpreted by myself): - An order was placed for continuous cardiac monitoring - Patient was noted to be in sinus rhythm with a rate of 90 Chest x-ray: (As interpreted by myself): No focal infiltrate Interventions provided in ED: -IV fluid bolus, IV cefepime Medical Decision Making: IV was established and lab work obtained, patient was placed on entry analyst. Lab work shows no leukocytosis, hemoglobin is stable at 10.2, platelet count is normal. CMP does not show any critical findings, patient is with baseline end- stage renal disease with creatinine of 3.29, he is dialyzed every Friday, Friday, and Friday according to his at the bedside. Urinalysis shows trace blood, 3+ leukocyte esterase, there is pyuria and 2+ bacteria, will send for culture and the patient will be treated with cefepime. CT imaging of the abdomen pelvis was obtained, there is evidence of left basilar pneumonia on CT imaging per the interpreting radiologist, there is stool within the colon as well as impacted fecal debris within the rectosigmoid colon. This is consistent with exam. There is no mention of free air or emergent findings otherwise. Chronic aortic dissection is re-demonstrated. Sacral ulcer visualized on exam is also demonstrated on CT imaging without any underlying abscess. On my reassessment the patient's is left, he states that she was under the impression the patient was going to be admitted. It is unclear at this time why the patient began having bowel movements per rectum as his states that this has not been the case for the past 10 months. Given that the patient has a stage IV sacral ulcer, this will be an issue moving forward to prevent ulcer from getting infected. In addition, patient states he feels generally weak, he states he has had a cough, CT imaging is suggestive of pneumonia. Patient was ordered IV cefepime for his multiple potential infectious sources. General surgery was consulted and the patient was evaluated the bedside by Alex Yang PA-C. They will defer to the patient's surgeon (Dr. Hou) tomorrow morning for routine consultation in regards to ostomy issues. Patient states he does feel that he needs to be admitted to the hospital, given his multiple potential sources of infection and his ostomy issues I did discuss the patient's case with the on-call hospitalist, Dr. Melton, and the patient was placed for admission in stable condition. Consultants/Discussions held with other healthcare providers: -General Surgery, Dr. Ousmane Sandoval/Alex Yang PA-C -Hospitalist, Dr. Melton Disposition discussion held by myself with: -Patient Diagnosis: 1. Left lower lobe pneumonia, acute 2. Generalized weakness, acute 3. Urinary tract infection, acute 4. Loop ostomy concern with unexpected stool per rectum, acute Disposition: Admission Abram Gaytan DO Emergency Medicine Past Med/Surg History Problem List (Updated 04/13/24 @ 00:16 by Abram Gaytan, ) Altered bowel elimination due to intestinal ostomy (Acute) Sacral ulcer Insomnia MDD (major depressive disorder), single episode, mild CKD (chronic kidney disease) (Acute) Pneumonia (Acute) Acute hypoxemic respiratory failure (Acute) Hypoxia (Acute) ESRD (end stage renal disease) on dialysis (Acute) Anemia of chronic disease Elevated troponin Wheelchair dependent Abnormal computed tomography of lung 08/05/23 - Wedge shaped consolidation of lung. No signs of PNA on exam. Recommend 3 month f/u CT ordered. Neurogenic bowel (Chronic) Sleep apnea Neurogenic bladder Generalized osteoarthritis Neurogenic claudication due to lumbar spinal stenosis Lower extremity edema Inability to walk Lymphedema Central venous catheter in place MRSA (methicillin resistant staph aureus) culture positive Hypertension Atrial fibrillation [place] [facility] [place]Dr. Jarvis) On Eliquis Abdominal aortic aneurysm (~2014) S/p Type A dissection with emergent repair in 2014 - Follows with vascular - last seen 11/2022- AAA 3.3cm, iliac artery aneursym (right 2.0cm and left 3.0 cm)- all stable in size; chronic thoracic aortic dissection- stable- vascular recommended repeating imaging May 2024 ESRD (end stage renal disease) on dialysis [facility] in [place] Fri-Fri-Fri Sacral decubitus ulcer, stage IV (Acute) "stable to improved" per [place] [facility] WEEK[facility] AND [facility]UR[facility] 2X PER WEEK. patient's changes dressing as instructed at home. Neuropathic pain Hyperlipidemia Anemia due to chronic kidney disease Anxiety Medical History Encounter for pre-operative examination Lobar pneumonia 08/2022 treated at [facility] inpatient. 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 Shrestha at [facility]>WC BOUND FOR 3 YEARS D/T CYSTS. inhibiting patient to ambulate. 04/25/23: awaiting for surgery to remove the spinal cyst but will need his ulcer wound repaired and healed fully first --> reason for upcoming colostomy. History of CHF (congestive heart failure) Impotence, organic Sleep apnea CPAP PTSD (post-traumatic stress disorder) POST AORTIC DISSECTION Neurogenic bladder Self Catheterization since Aortic repair 4-5X PER DAY Lumbar spinal stenosis Surgical History History of removal of tunneled central venous catheter (CVC) with port removal of perm cath 05/[address] Marroquin S/P arteriovenous (AV) fistula creation left S/P debridement (02/08/22) Sacral Wound Debridment, Sacral bone biopsy(Not Applicable) - Jose Le, DO S/P debridement (06/27/21) Excisional Debridement Sacral Decubitus Ulcer down to muscle level 4cm x 6cm - Ranjeet Myers, DO 06/27/2021 Excisional Debridement of Sacral Decubitus Ulcer Down to Bone, 11cm x 10cm(Not Applicable) - Ranjeet Myers, DO 07/25/2021: MAC 3, ETT 7.5. History of revision of total hip arthroplasty History of arthroplasty of left hip S/P total right hip arthroplasty History of cardioversion mult>FOLLOWS WITH DR. JARVIS History of lumbar fusion History of bladder surgery History of transurethral resection of prostate Nausea and vomiting after administration of anesthetic agent History of arthroscopy RT KNEE History of open reduction and internal fixation (ORIF) procedure RT WRIST History of total knee replacement RT History of esophagogastroduodenoscopy (EGD) History of colonoscopy History of tooth extraction History of rhinoplasty History of cataract surgery RT/LEFT 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 2015 Did have thoracic bleeding post op- required re exploration approx 1 week after initial presentation- had ARF, spinal cord ischemia resulting in paraplegia, neurogenic bladder and neurogenic bowel. History of gastric bypass 2010 History of cardiac catheterization 2003 - no stents - [facility] in [place] Family History Grandmother Family history of diabetes mellitus Mother Gallbladder disease Father Prostate cancer Myocardial infarction Hypertension Other Family history non-contributory No family history of adverse response to anesthesia Denies family history of Ovarian cancer Breast cancer Colorectal cancer Social History Smoking Status: Never smoker Second Hand Exposure: No; Do You Dip or Chew Tobacco: No; Hx Alcohol Use: No Hx Substance Use: No Preferred Language: Kyrgyz Communication Ability: Effective Visual Impairment: Limited Hearing Ability: Normal Memory Care Program Director Required: No Beliefs That Will Affect Care: None marital status: Current Living Situation: Spouse Current Living Situation Comment: Lives with at home current occupational status: retired How many Children do You have: 1 Feels Safe at Home: Yes Childhood Exposure to Second-Hand Smoke: Yes (father did ) Diet: regular Diet Comment: low sugar, low phospate caffeine: Yes (tea) during the past year weight has: remained stable Dental Care, Regularly: Yes Physical Activity Frequency: Does not Exercise Physical Activity Frequency Comment: goes to PT twice a week Seatbelt Use: always Sunscreen Use: Yes Do you think of yourself as: straight/heterosexual Gender Identity: Male Assistive Devices: Bedside Commode, CPAP, Hospital Bed, Walker and Wheelchair Allergies Allergies Allergy/AdvReac Type Severity Reaction Status Date / Time tetracycline Allergy Intermediate HIVES Verified 12/30/23 13:55 morphine AdvReac Intermediate Nausea Verified 12/30/23 13:55 Home Meds Home Medications Medication Instructions Recorded Confirmed cholecalciferol (vitamin D3) 50 50 mcg PO QPM 12/31/19 12/30/23 mcg (2,000 unit) tablet (Vitamin D3) sevelamer carbonate 800 mg tablet See Rx Instructions .Route .COMPLEX 09/20/22 12/30/23 Previous Rx's Medication Instructions Recorded Wheelchair (Powered) (Power #1 ea 01/04/22 Wheelchair) atorvastatin 20 mg tablet (Lipitor) 20 mg PO QPM #90 tabs 09/10/23 alprazolam 0.25 mg tablet 0.25 mg PO HS PRN Anxiety/Panic 10/09/23 attacks #30 tabs Mattress (Air or other) #1 ea 10/21/23 metoprolol succinate 25 mg 25 mg PO QAM #90 tabs 12/01/23 tablet,extended release 24 hr vitamin B complex and vitamin C 1 cap PO QAM #90 caps 12/17/23 no.20-folic acid 1 mg capsule (Renal Caps) mirtazapine 7.5 mg tablet 7.5 mg PO DAILY #60 tabs 01/26/24 apixaban 2.5 mg tablet (Eliquis) 2.5 mg PO BID #180 tabs 02/03/24 Power wheelchair repair See Rx Instructions .Route 03/01/24 .COMPLEX #1 ea gabapentin 300 mg capsule 600 mg (2 x 300 mg) PO HS #180 caps 03/05/24 oxycodone-acetaminophen 5 mg-325 1 tab PO Q6H PRN pain #30 tabs 03/05/24 mg tablet (Percocet) Results & Data (ED) Vital Signs Vital Signs - 24 hr 04/12/24 19:37 04/12/24 19:41 04/12/24 20:35 Temperature 37.1 C Temperature Source Oral Pulse Rate 70 77 79 Pulse Rate [Apical] Pulse Rate from SpO2 Sensor Pulse Rhythm Irregular Irregular Pulse Rhythm [Apical] Pulse Strength Normal Pulse Strength [Apical] Respiratory Rate 16 16 Respiratory Effort / Characteristics Non-Labored Spontaneous Respiratory Depth Normal Respiratory Pattern Regular Blood Pressure 143/96 H Blood Pressure [Right Arm] Blood Pressure Mean 111 Blood Pressure Mean [Right Arm] Blood Pressure Position Sitting Blood Pressure Position [Right Arm] Pulse Oximetry 95 95 Oxygen Delivery Method Room Air Room Air Sepsis Recent Fever Within 48 Hours No Sepsis New/Unexplained Change in Mental Status No Sepsis Action Taken by Nursing No Action Required 04/12/24 22:17 04/12/24 22:18 04/12/24 22:18 Temperature Temperature Source Pulse Rate Pulse Rate [Apical] 83 Pulse Rate from SpO2 Sensor Pulse Rhythm Pulse Rhythm [Apical] Irregular Pulse Strength Pulse Strength [Apical] Normal Respiratory Rate 16 Respiratory Effort / Characteristics Non-Labored Spontaneous Respiratory Depth Normal Respiratory Pattern Regular Blood Pressure 130/79 130/79 Blood Pressure [Right Arm] 130/79 Blood Pressure Mean 88 88 Blood Pressure Mean [Right Arm] 96 Blood Pressure Position Blood Pressure Position [Right Arm] Lying Pulse Oximetry 96 Oxygen Delivery Method Room Air Sepsis Recent Fever Within 48 Hours Sepsis New/Unexplained Change in Mental Status Sepsis Action Taken by Nursing 04/12/24 22:21 04/12/24 23:40 Temperature Temperature Source Pulse Rate 70 92 H Pulse Rate [Apical] Pulse Rate from SpO2 Sensor 72 Pulse Rhythm Pulse Rhythm [Apical] Pulse Strength Pulse Strength [Apical] Respiratory Rate 19 Respiratory Effort / Characteristics Respiratory Depth Respiratory Pattern Blood Pressure Blood Pressure [Right Arm] Blood Pressure Mean Blood Pressure Mean [Right Arm] Blood Pressure Position Blood Pressure Position [Right Arm] Pulse Oximetry 97 Oxygen Delivery Method Sepsis Recent Fever Within 48 Hours Sepsis New/Unexplained Change in Mental Status Sepsis Action Taken by Nursing Laboratory Data 04/12/24 20:30 04/12/24 20:30 Lab Results 04/12/24 04/12/24 04/12/24 Range/Units 20:30 20:50 21:13 WBC 5.83 (4.8-10.8) K/ul RBC 3.23 L (4.70-6.10) M/uL Hgb 10.2 L (14.0-18.0) g/dl Hct 33.5 L (42.0-52.0) % MCV 103.7 H (80.0-100.0) fL MCH 31.6 (25.0-34.0) pg MCHC 30.4 L (32.0-36.0) g/dL RDW Std Deviation 62.4 H (36.4-46.3) fL RDW Coeff of Hector 16.6 H (11.5-14.5) % Plt Count 168 (130-400) K/uL MPV 9.0 L (9.4-12.4) fL Immature Gran % (Auto) 0.2 % Neut % (Auto) 76.0 % Lymph % (Auto) 10.8 % [place] % (Auto) 8.1 % Eos % (Auto) 3.9 % Baso % (Auto) 1.0 % Neut # (Auto) 4.43 (1.40-6.50) K/uL Lymph # (Auto) 0.63 L (1.20-3.40) K/uL [place] # (Auto) 0.47 (0.11-0.59) K/uL Eos # (Auto) 0.23 (0.00-0.50) K/uL Baso # (Auto) 0.06 (0.00-0.20) K/uL Immature Gran # (Auto) 0.01 (0.01-0.20) K/uL Sodium 137 (136-145) mmol/L Potassium 4.6 (3.5-5.1) mmol/L Chloride 95 L (98-107) mmol/L Carbon Dioxide 34 H (21-32) mmol/L Anion Gap 8 (3-11) BUN 30 H (6-23) mg/dl Creatinine 3.29 H (0.6-1.4) mg/dl Est Cr Clr Drug Dosing 20.6 ml/min Est GFR ( Amer) 19.9 ml/min Est GFR (Non-Af Amer) 17.1 ml/min BUN/Creatinine Ratio 9.1 L (10-20) Glucose 88 (70-99(Fasting)) mg/dl Lactate 1.5 (0.4-2.0) mmol/L Calcium 9.2 (8.6-10.3) mg/dl Total Bilirubin 0.6 (0.2-1.0) mg/dl AST 23 (13-39) U/L ALT 15 (7-52) U/L Alkaline Phosphatase 123 H (34-104) U/L Total Protein 6.7 (6.0-8.3) gm/dl Albumin 3.9 (3.4-5.0) gm/dl Globulin 2.8 (2.5-4.0) gm/dl Albumin/Globulin Ratio 1.4 (0.9-2) Lipase 45 (11-82) U/L Urine Color Yellow Urine Appearance Clear (Clear) Urine pH >= 9.0 H (4.5-7.5) Ur Specific [place] 1.008 (1.000-1.030) Urine Protein 2+ H (Negative) Urine Glucose (UA) Negative (Negative) Urine Ketones Negative (Negative) Urine Blood Trace H (Negative) Urine Nitrite Negative (Negative) Urine Bilirubin Negative (Negative) Urine Urobilinogen Negative (Negative) Ur Leukocyte Esterase 3+ H (Negative) Urine WBC (Auto) >50 H (0-5) /hpf Urine RBC (Auto) 0-2 (0-2) /hpf U Hyaline Cast (Auto) 0-2 (0-2) /lpf U Epithel Cells (Auto) 0-2 (0-2) /hpf Urine Bacteria (Auto) 2+ H (None Seen) Administered Medications Discontinued Medications Sodium Chloride (Nss) 500 mls @ 999 mls/hr IV .Q31M STA Stop: 04/12/24 20:40 Last Infusion: 04/12/24 21:04 Dose: Infused Documented By: Admin: 04/12/24 20:33 Dose: 999 mls/hr Documented By: CHA Imaging Data Radiologist's Impression: Abdomen/Pelvis CT 04/12/24 21:24 Exam(s): CT ABDOMEN + PELVIS Without Contrast EXAM: CT Abdomen and Pelvis Without Intravenous Contrast CLINICAL HISTORY: Reason for exam: ostomy, stool in rectum, eval for fistula. TECHNIQUE: Axial computed tomography images of the abdomen and pelvis without intravenous contrast. CTDI is 22 mGy and DLP is 1114 mGy-cm. Automated exposure control was utilized for the study. A dose lowering technique was utilized adhering to the principles of ALARA. COMPARISON: CT abdomen/pelvis: 09/20/2022 FINDINGS: Diagnostic sensitivity of the exam is reduced by motion artifact. Lung bases: Trace/small bilateral pleural effusions and posteriorly basilar consolidative infiltrates, LT>RT increased since prior. Cardiomegaly. Median sternotomy. A mildly elevated left hemidiaphragm. ABDOMEN: Analysis of abdominal/pelvic viscera and vascular structures is limited in absence of IV contrast. Liver: Unremarkable. Gallbladder and bile ducts: Significantly distended gallbladder. No calcified stones. No ductal dilation. Pancreas: Unremarkable. Spleen: Unremarkable. Adrenals: Unremarkable. No mass. Kidneys and ureters: Moderate to severely atrophic kidneys. Exophytic small right renal cysts. No obstructing stones. No hydronephrosis. Stomach and bowel: Previous Kang-en-Y gastric bypass/bariatric surgery. Interval left lower quadrant loop ostomy. Normal caliber small and large bowel loops. Moderately large amount of formed stool is seen throughout the colon. An impacted inspissated fecal debris is seen in a mild/moderately distended rectosigmoid. Circumferential wall thickening of the rectum. No fistulous communication is evident. PELVIS: Evaluation of the pelvic viscera is hampered by extensive metallic beam hardening artifact from patient's bilateral hip replacement hardware. Appendix: No acute findings in the region of the appendix. Bladder: An empty urinary bladder with a Perry's catheter in situ. Heterogeneously dense abnormal wall thickening of the bladder, concerning for chronic cystitis. Reproductive: Grossly unremarkable as visualized. ABDOMEN and PELVIS: Intraperitoneal space: Unremarkable. No free air. No significant fluid collection. Bones/joints: Osteopenia. Mild/moderate lumbar levoscoliosis. Postsurgical spine with posterior fusion instrumentation from L3-L5 levels. Mild L2 vertebral retrolisthesis. No acute fracture. Mild/moderate thoracolumbar degenerative spondylitic changes. Lumbar facet osteoarthropathy. Total bilateral hip arthroplasty.. Soft tissues: Posteriorly inferior to the coccyx in the midline a moderately large size cutaneous/soft tissue ulceration again noted increased since prior comparison. Mild body wall soft tissue edema. Vasculature: Diffuse calcified atherosclerosis of the aortoiliac vasculature. Chronic infrarenal aortic dissection is again seen. 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 Lymph nodes: Unremarkable. No enlarged lymph nodes. 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 . IMPRESSION: Lung bases: Small bilateral pleural effusions, posteriorly basilar consolidative infiltrate/pneumonia LT>RT, increased since prior comparison. A significantly distended gallbladder. Clinical correlation is advised. Previous Kang-en-Y gastric bypass. Interval status post left lower quadrant loop ostomy. Moderately large amount of formed stool seen throughout the colon. An impacted/inspissated fecal debris is seen in a mild/moderately distended rectosigmoid. There is circumferential rectal wall thickening. Heterogeneously dense abnormal wall thickening of a decompressed urinary bladder, concerning for chronic cystitis. Again seen chronic infrarenal aortic dissection. Diffuse calcified atherosclerosis of the aortoiliac vasculature. 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 Posteriorly inferior to the coccyx in midline a moderately large size cutaneous/soft tissue ulceration again noted increased in size since comparison. . Electronically signed by: Trista Booker MD, DABR 04/12/24 23:24 PM Discharge Plan Visit Data Chief Complaint: Ostomy Problem Stated Complaint: LEAKING FROM RECTUM, HAS COLOSTOMY ED Provider: Abram Gaytan. Discharge Problem: Altered bowel elimination due to intestinal ostomy Prescriptions Prescriptions: No Action (DME) Power Wheelchair Device See Rx Instructions .Route Qty: 1 0RF Rx Instructions: POWER WHEELCHAIR, DX: R53.1, R26.2 atorvastatin [Lipitor] 20 mg tablet 20 mg PO QPM Qty: 90 4RF (DME) Mattress (Air or other) Misc See Rx Instructions .Route Qty: 1 0RF Rx Instructions: alternating pressure mattress metoprolol succinate 25 mg tablet extended release 24 hr 25 mg PO QAM Qty: 90 3RF Renal Caps 1 mg capsule 1 cap PO QAM Qty: 90 3RF mirtazapine 7.5 mg tablet 7.5 mg PO DAILY Qty: 60 2RF Eliquis 2.5 mg tablet 2.5 mg PO BID Qty: 180 3RF Power wheelchair repair See Rx Instructions .ROUTE .COMPLEX Qty: 1 0RF Rx Instructions: power wheelchair needs repaired gabapentin 300 mg capsule 600 mg PO HS Qty: 180 5RF oxycodone-acetaminophen [Percocet] 5-325 mg tablet 1 tab PO Q6H PRN (Reason: pain) Qty: 30 0RF alprazolam 0.25 mg tablet 0.25 mg PO HS PRN (Reason: Anxiety/Panic attacks) Qty: 30 0RF cholecalciferol (vitamin D3) [Vitamin D3] 50 mcg (2,000 unit) Tablet 50 mcg PO QPM sevelamer carbonate 800 mg tablet See Rx Instructions .ROUTE .COMPLEX Rx Instructions: TAKES 800 MG WITH BREAKFAST & LUNCH, THEN 1,600 MG WITH SUPPER. Referrals Referrals: Jasiel Pineda, [Primary Care Provider] -
[2024-04-12] MEDS: SODIUM CHLORIDE 0.9% 500 ML IV STA (20:33)
[2024-04-12 20:50] LABS: Basophils # (auto) 0.06 K/uL (0.00-0.20); Eosinophils # (auto) 0.23 K/uL (0.00-0.50); Eosinophils % (auto) 3.9 %; Hematocrit (blood only) 33.5 % (42.0-52.0); Hemoglobin 10.2 g/dl (14.0-18.0); Immature Granulocytes # (auto) 0.01 K/uL (0.01-0.20); Immature Granulocytes % (auto) 0.2 %; Lymphocytes # (auto) 0.63 K/uL (1.20-3.40); Lymphocytes % (auto) 10.8 %; Mean Corpuscular Hemoglobin 31.6 pg (25.0-34.0); Mean Corpuscular Hgb Conc 30.4 g/dL (32.0-36.0); Mean Corpuscular Volume 103.7 fL (80.0-100.0); Monocytes # (auto) 0.47 K/uL (0.11-0.59); Monocytes % (auto) 8.1 %; Neutrophils # (auto) 4.43 K/uL (1.40-6.50); Platelet Count 168 K/uL (130-400); RDW Coefficient of Variation 16.6 % (11.5-14.5); RDW Standard Deviation 62.4 fL (36.4-46.3); Red Blood Count 3.23 M/uL (4.70-6.10); White Blood Count 5.83 K/ul (4.8-10.8)
[2024-04-12 21:06] LABS: Albumin Globulin Ratio 1.4 (0.9-2); Albumin Level 3.9 gm/dl (3.4-5.0); BUN Creatinine Ratio 9.1 (10-20); Bilirubin,Total 0.6 mg/dl (0.2-1.0); Calcium 9.2 mg/dl (8.6-10.3); Creatinine Clr Calc Pharmacy 20.6 ml/min; Est GFR (African American) 19.9 ml/min; Est GFR (Non-African American) 17.1 ml/min; Globulin 2.8 gm/dl (2.5-4.0); Potassium 4.6 mmol/L (3.5-5.1); Total Protein 6.7 gm/dl (6.0-8.3)
[2024-04-12 21:23] LABS: Appearance Urine Clear (Clear); Bacteria Urine Automated 2+ (None Seen); Bilirubin Urine Negative (Negative); Blood Urine Trace (Negative); Cast Urine Automated 0-2 /lpf (0-2); Color Urine Yellow; Epithelial Cell Urine Auto 0-2 /hpf (0-2); Glucose Urine UA Negative (Negative); Ketones Urine Negative (Negative); Leukocyte Esterase Urine 3+ (Negative); Nitrite Urine Negative (Negative); Protein Urine 2+ (Negative); RBC Urine Automated 0-2 /hpf (0-2); Specific Gravity Urine 1.008 (1.000-1.030); Urobilinogen Urine Negative (Negative); WBC Urine Automated >50 /hpf (0-5); pH Urine >= 9.0 (4.5-7.5)
--- NOTE | 2024-04-12 23:24 | CT Scan Report ---
Exam(s): CT ABDOMEN + PELVIS Without Contrast EXAM: CT Abdomen and Pelvis Without Intravenous Contrast CLINICAL HISTORY: Reason for exam: ostomy, stool in rectum, eval for fistula. TECHNIQUE: Axial computed tomography images of the abdomen and pelvis without intravenous contrast. CTDI is 22 mGy and DLP is 1114 mGy-cm. Automated exposure control was utilized for the study. A dose lowering technique was utilized adhering to the principles of ALARA. COMPARISON: CT abdomen/pelvis: 09/20/2022 FINDINGS: Diagnostic sensitivity of the exam is reduced by motion artifact. Lung bases: Trace/small bilateral pleural effusions and posteriorly basilar consolidative infiltrates, LT>RT increased since prior. Cardiomegaly. Median sternotomy. A mildly elevated left hemidiaphragm. ABDOMEN: Analysis of abdominal/pelvic viscera and vascular structures is limited in absence of IV contrast. Liver: Unremarkable. Gallbladder and bile ducts: Significantly distended gallbladder. No calcified stones. No ductal dilation. Pancreas: Unremarkable. Spleen: Unremarkable. Adrenals: Unremarkable. No mass. Kidneys and ureters: Moderate to severely atrophic kidneys. Exophytic small right renal cysts. No obstructing stones. No hydronephrosis. Stomach and bowel: Previous Kang-en-Y gastric bypass/bariatric surgery. Interval left lower quadrant loop ostomy. Normal caliber small and large bowel loops. Moderately large amount of formed stool is seen throughout the colon. An impacted inspissated fecal debris is seen in a mild/moderately distended rectosigmoid. Circumferential wall thickening of the rectum. No fistulous communication is evident. PELVIS: Evaluation of the pelvic viscera is hampered by extensive metallic beam hardening artifact from patient's bilateral hip replacement hardware. Appendix: No acute findings in the region of the appendix. Bladder: An empty urinary bladder with a Perry's catheter in situ. Heterogeneously dense abnormal wall thickening of the bladder, concerning for chronic cystitis. Reproductive: Grossly unremarkable as visualized. ABDOMEN and PELVIS: Intraperitoneal space: Unremarkable. No free air. No significant fluid collection. Bones/joints: Osteopenia. Mild/moderate lumbar levoscoliosis. Postsurgical spine with posterior fusion instrumentation from L3-L5 levels. Mild L2 vertebral retrolisthesis. No acute fracture. Mild/moderate thoracolumbar degenerative spondylitic changes. Lumbar facet osteoarthropathy. Total bilateral hip arthroplasty.. Soft tissues: Posteriorly inferior to the coccyx in the midline a moderately large size cutaneous/soft tissue ulceration again noted increased since prior comparison. Mild body wall soft tissue edema. Vasculature: Diffuse calcified atherosclerosis of the aortoiliac vasculature. Chronic infrarenal aortic dissection is again seen. 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 Lymph nodes: Unremarkable. No enlarged lymph nodes. 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 . IMPRESSION: Lung bases: Small bilateral pleural effusions, posteriorly basilar consolidative infiltrate/pneumonia LT>RT, increased since prior comparison. A significantly distended gallbladder. Clinical correlation is advised. Previous Kang-en-Y gastric bypass. Interval status post left lower quadrant loop ostomy. Moderately large amount of formed stool seen throughout the colon. An impacted/inspissated fecal debris is seen in a mild/moderately distended rectosigmoid. There is circumferential rectal wall thickening. Heterogeneously dense abnormal wall thickening of a decompressed urinary bladder, concerning for chronic cystitis. Again seen chronic infrarenal aortic dissection. Diffuse calcified atherosclerosis of the aortoiliac vasculature. 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 Posteriorly inferior to the coccyx in midline a moderately large size cutaneous/soft tissue ulceration again noted increased in size since comparison. . Electronically signed by: rTista Booker MD, TWINR 04/12/24 23:24 PM
--- NOTE | 2024-04-13 00:14 | Surgery Consultation ---
Date of Consultation April 13, 2024 Assessment & Plan (1) Sacral ulcer: I discussed with the treating emergency room physician and the patient is being admitted on the hospital service. From surgery perspective we recommend the following: Offloading measures for the patient's sacral wound should be implemented Would recommend involving wound care nurse for wound care of his sacral ulcer Would continue local wound care to his sacral ulcer Concerning the stool output from patient's rectumthis is unusual as this has not been present until recently and there is concern the patient's feces are not being diverted from his wound entirely. Would recommend keeping the patient n.p.o. for the present time. Will notify Dr. Hou of patient's admission as he is the surgeon who created the patient's ostomy and a determination will need to be made if patient requires any intervention such as a colostomy revision for this issue At the present time the patient is nontoxic-appearing. He is normotensive without tachycardia or fever. Additional recommendations to be forthcoming based on his clinical course as it unfolds Supervising Physician Co-Signing Physician Notes I have discussed this case with the surgical PA overnight and I agree with this plan. History of Present Illness Reason for Consultation: Rectal drainage History of Present Illness This is a 78-year-old paraplegic male who presented to the emergency department this evening. 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 Patient notes that since his problem again he has developed a sacral ulcer. In order to prevent stool soilage of his sacral ulcer the patient had a loop colostomy constructed by Dr. Shyam Hou of [facility] surgery in April 2023. Patient also has a chronic indwelling Perry catheter. Patient no era that his ostomy has been functioning fine and since his colostomy creation he did not have any stool output from his rectum until the past 24 to 48 hours at which time the patient noted a significant amount of stool from his rectum. He does note that his ostomy is currently functioning appropriately. He offers no other complaints at this time specifically denying any abdominal pain. He also denies any nausea or vomiting and has not had any fevers, shakes, or chills. He did present to the emergency department as noted above as he and his are concerned that there could be some malfunction of his colostomy will adversely affect his sacral wound. Since arrival to the hospital patient has had labs and imaging which I independently reviewed. A CT scan of the abdomen pelvis showed the patient had a distended gallbladder. He had evidence of a previous Kang-en-Y gastric bypass. There is also findings consistent with a left lower quadrant loop ostomy. There is a large amount of formed stool throughout the colon and some fecal debris noted in the rectosigmoid region which was moderately distended with some rectal wall thickening. Labs included CBC with a white blood cell co unt platelet count. Hemoglobin and 10.2 and 33.5. Chemistry profile showed sodium and potassium were normal. His BUN and creatinine were 33 and 3.2. Urinalysis showed clear urine with greater than 50 white blood cells per high- power field as well as 3+ leukocyte Estrace. The specimen was negative for nitrites but had 2+ bacteria. At the time of my interview he was resting comfortably in bed he was in no distress. Allergies Allergy/AdvReac Type Severity Reaction Status Date / Time tetracycline Allergy Intermediate HIVES Verified 12/30/23 13:55 morphine AdvReac Intermediate Nausea Verified 12/30/23 13:55 Home Medications Medication Instructions Recorded Confirmed Type cholecalciferol (vitamin D3) 50 50 mcg PO QPM 12/31/19 12/30/23 History mcg (2,000 unit) tablet (Vitamin D3) Wheelchair (Powered) (Power #1 ea 01/04/22 12/30/23 Rx Wheelchair) sevelamer carbonate 800 mg tablet See Rx Instructions .Route .COMPLEX 09/20/22 12/30/23 History atorvastatin 20 mg tablet (Lipitor) 20 mg PO QPM #90 tabs 09/10/23 12/30/23 Rx alprazolam 0.25 mg tablet 0.25 mg PO HS PRN Anxiety/Panic 10/09/23 12/30/23 Rx attacks #30 tabs Mattress (Air or other) #1 ea 10/21/23 12/30/23 Rx metoprolol succinate 25 mg 25 mg PO QAM #90 tabs 12/01/23 12/30/23 Rx tablet,extended release 24 hr vitamin B complex and vitamin C 1 cap PO QAM #90 caps 12/17/23 12/30/23 Rx no.20-folic acid 1 mg capsule (Renal Caps) mirtazapine 7.5 mg tablet 7.5 mg PO DAILY #60 tabs 01/26/24 Rx apixaban 2.5 mg tablet (Eliquis) 2.5 mg PO BID #180 tabs 02/03/24 Rx Power wheelchair repair See Rx Instructions .Route 03/01/24 Rx .COMPLEX #1 ea gabapentin 300 mg capsule 600 mg (2 x 300 mg) PO HS #180 caps 03/05/24 Rx oxycodone-acetaminophen 5 mg-325 1 tab PO Q6H PRN pain #30 tabs 03/05/24 Rx mg tablet (Percocet) Patient History Medical History Encounter for pre-operative examination Lobar pneumonia 08/2022 treated at [facility] inpatient. 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 Shrestha at [facility] [place]WC BOUND FOR 3 YEARS D/T CYSTS. inhibiting patient to ambulate. 04/25/23: awaiting for surgery to remove the spinal cyst but will need his ulcer wound repaired and healed fully first --> reason for upcoming colostomy. History of CHF (congestive heart failure) Impotence, organic Sleep apnea CPAP PTSD (post-traumatic stress disorder) POST AORTIC DISSECTION Neurogenic bladder Self Catheterization since Aortic repair 4-5X PER DAY Lumbar spinal stenosis Surgical History History of removal of tunneled central venous catheter (CVC) with port removal of perm cath 05/[address] Marroquin S/P arteriovenous (AV) fistula creation left S/P debridement (02/08/22) Sacral Wound Debridment, Sacral bone biopsy(Not Applicable) - Jose Le DO S/P debridement (06/27/21) Excisional Debridement Sacral Decubitus Ulcer down to muscle level 4cm x 6cm - Ranjeet Myers DO 06/27/2021 Excisional Debridement of Sacral Decubitus Ulcer Down to Bone, 11cm x 10cm(Not Applicable) - Ranjeet Myers DO 07/25/2021: MAC 3, ETT 7.5. History of revision of total hip arthroplasty History of arthroplasty of left hip S/P total right hip arthroplasty History of cardioversion mult>FOLLOWS WITH DR. 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 History of gastric bypass 2010 History of cardiac catheterization 2003 - no stents - [facility] in [place] Family History Grandmother Family history of diabetes mellitus Mother Gallbladder disease Father Prostate cancer Myocardial infarction Hypertension Other Family history non-contributory No family history of adverse response to anesthesia Denies family history of Ovarian cancer Breast cancer Colorectal cancer Social History Smoking Status: Never smoker Second Hand Exposure: No; Do You Dip or Chew Tobacco: No; Hx Alcohol Use: No Hx Substance Use: No Preferred Language: Liberian Communication Ability: Effective Visual Impairment: Limited Hearing Ability: Normal Missing Persons Investigator Required: No Beliefs That Will Affect Care: None marital status: Current Living Situation: Spouse Current Living Situation Comment: home wiith current occupational status: retired How many Children do You have: 1 Feels Safe at Home: Yes Safety Concerns: Feels Safe At This Time Childhood Exposure to Second-Hand Smoke: Yes (father did ) Diet: regular Diet Comment: low sugar, low phospate caffeine: Yes (tea) during the past year weight has: remained stable Dental Care, Regularly: Yes Physical Activity Frequency: Does not Exercise Physical Activity Frequency Comment: goes to PT twice a week Seatbelt Use: always Sunscreen Use: Yes Do you think of yourself as: straight/heterosexual Gender Identity: Male Assistive Devices: Lift Chair and Scooter/Electric Scooter Review of Systems Review of Systems: All systems reviewed & are unremarkable except as noted in HPI & below Physical Exam Constitutional: WD/WN, vitals as above Eyes: no conjunctival abnormality ENMT: Ears: no hearing impairment and no external ear abnormality Mouth: no oropharynx abnormality Neck: trachea midline Respiratory: normal respiratory effort; no respiratory distress and no labored breathing Cardiovascular: Rate/Rhythm: regular rate and regular rhythm Gastrointestinal (Abdomen): Abdomen is soft, nondistended, and nonrigid. There is no pain noted with palpation. Patient has a colostomy noted in the left lower quadrant of his abdomen. There is brown stool noted in the colostomy collection bag With the nurse bridges and buildings supervisor present the patient underwent a digital rectal exam. The patient did have decreased finger tone. There is a large amount of stool noted in the rectum. This was noted to be heme negative. Patient was also noted to have a sacral decubitus ulcer. The wound bed was clean without any purulent drainage. There is no crepitus noted in the surrounding tissue. Musculoskeletal: No lower extremity edema Skin: no rashes Neurologic: Patient is able to move his upper extremities without noted focal deficits. He is able to move his feet but had marked weakness noted above lower extremities. Psychiatric: A+Ox3, euthymic affect Genitourinary: Perry catheter is noted to be in place draining clear yellow urine. Patient reports that this was present prior to presentation to the emergency department. Results & Data Vital Signs (Past 12 Hours) Vital Signs Temp Pulse Pulse Resp BP BP Pulse Ox 04/12/24 23:40 92 H 04/12/24 22:21 70 19 97 04/12/24 22:18 130/79 04/12/24 22:18 130/79 04/12/24 22:17 83 16 130/79 96 04/12/24 20:35 79 16 95 04/12/24 19:41 77 04/12/24 19:37 37.1 C 70 16 143/96 H 95 O2 Del Method 04/12/24 23:40 04/12/24 22:21 04/12/24 22:18 04/12/24 22:18 04/12/24 22:17 Room Air 04/12/24 20:35 Room Air 04/12/24 19:41 04/12/24 19:37 Room Air PG Care Time/CCT Total # of Minutes Spent Total Time Spent with Patient: Total time spent is greater than 50% in coordination of care (as documented) at patient's floor/unit and/or counseling patient: Coding Level of Care Code 99197 INT INP/OBS CARE MIN Diagnoses Sacral ulcer L98.429
[2024-04-13] MEDS: CEFEPIME 2,000 MG/20 ML VIAL IV STA (00:30)
--- NOTE | 2024-04-13 00:39 | History & Physical Report ---
Date of Service April 13, 2024 Assessment & Plan (1) Altered bowel elimination due to intestinal ostomy: Plan: Unsure exactly how this is occurring. ?Fistula formation ?Spill over -General Surgery consultation appreciated -Will maintain NPO status for now in the event of OR for colostomy revision (2) Sacral ulcer: Plan: Patient with unhealing sacral ulcer -Turn q 2 hours -Specialty bed requested -Wound care -Fecal management system requested if patient continues to have stool from the rectum (3) Pneumonia: Plan: CT suggestive of left basilar pneumonia. Likely contributing to patient's malaise and cough. HD stable, no sepsis present at this time. Adequate oxygenation on room air -Follow cultures -Vancomycin and Cefepime Plan ESRD on HD M/W/ -Nephrology consult to be placed if patient still present in the hospital - will need HD on Friday -Continue Sevelamer Hypertension -Chronic -Continue Metoprolol Chronic Pain -Continue Gabapentin WEI -Chronic. Patient reports compliance with CPAP at home -CPAP qHS 9 cmH2O, adjust as needed History of Present Illness Chief Complaint: possible colostomy malfunction Primary Care Provider: Jasiel Pineda DO Guanaco Escobedo is a 78yo male with history of ESRD on HD q M/W/, HTN, deconditioning/paraplegia for the last 3-4 years. 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 He had a diverting loop colostomy performed 10 months ago to assist with wound healing. He reports normal output from his colostomy bag - empties his bag 2-3 times/day. Last night he did have an explosive bowel movement from his anus. He reports no stool output from his anus since the placement of his loop colostomy. Additionally patient reports sacral pain at his ulcer site. He has had a wound vac in place - was due to be changed today. He reports no improvement in his ulcer. He has been seen by Infectious Disease team as well as Wound Care. Patient also reports some generalized weakness, malaise and cough. In the ER he is afebrile, HD stable and non-toxic in appearance. ER Course: Cefepime Vancomycin NSS Allergies Allergy/AdvReac Type Severity Reaction Status Date / Time tetracycline Allergy Intermediate HIVES Verified 12/30/23 13:55 morphine AdvReac Intermediate Nausea Verified 12/30/23 13:55 Home Medications Medication Instructions Recorded Confirmed Type cholecalciferol (vitamin D3) 50 50 mcg PO QPM 12/31/19 12/30/23 History mcg (2,000 unit) tablet (Vitamin D3) Wheelchair (Powered) (Power #1 ea 01/04/22 12/30/23 Rx Wheelchair) sevelamer carbonate 800 mg tablet See Rx Instructions .Route .COMPLEX 09/20/22 12/30/23 History atorvastatin 20 mg tablet (Lipitor) 20 mg PO QPM #90 tabs 09/10/23 12/30/23 Rx alprazolam 0.25 mg tablet 0.25 mg PO HS PRN Anxiety/Panic 10/09/23 12/30/23 Rx attacks #30 tabs Mattress (Air or other) #1 ea 10/21/23 12/30/23 Rx metoprolol succinate 25 mg 25 mg PO QAM #90 tabs 12/01/23 12/30/23 Rx tablet,extended release 24 hr vitamin B complex and vitamin C 1 cap PO QAM #90 caps 12/17/23 12/30/23 Rx no.20-folic acid 1 mg capsule (Renal Caps) mirtazapine 7.5 mg tablet 7.5 mg PO DAILY #60 tabs 01/26/24 Rx apixaban 2.5 mg tablet (Eliquis) 2.5 mg PO BID #180 tabs 02/03/24 Rx Power wheelchair repair See Rx Instructions .Route 03/01/24 Rx .COMPLEX #1 ea gabapentin 300 mg capsule 600 mg (2 x 300 mg) PO HS #180 caps 03/05/24 Rx oxycodone-acetaminophen 5 mg-325 1 tab PO Q6H PRN pain #30 tabs 03/05/24 Rx mg tablet (Percocet) Past Med/Surg History Problem List Altered bowel elimination due to intestinal ostomy (Acute) Sacral ulcer Insomnia MDD (major depressive disorder), single episode, mild CKD (chronic kidney disease) (Acute) Pneumonia (Acute) Acute hypoxemic respiratory failure (Acute) Hypoxia (Acute) ESRD (end stage renal disease) on dialysis (Acute) Anemia of chronic disease Elevated troponin Wheelchair dependent Abnormal computed tomography of lung 08/05/23 - Wedge shaped consolidation of lung. No signs of PNA on exam. Recommend 3 month f/u CT ordered. Neurogenic bowel (Chronic) Sleep apnea Neurogenic bladder Generalized osteoarthritis Neurogenic claudication due to lumbar spinal stenosis Lower extremity edema Inability to walk Lymphedema Central venous catheter in place MRSA (methicillin resistant staph aureus) culture positive Hypertension Atrial fibrillation Follows with [facility] cardiology (Dr. Jarvis) On Eliquis Abdominal aortic aneurysm (~2014) S/p Type A dissection with emergent repair in 2014 - Follows with vascular - last seen 11/2022- AAA 3.3cm, iliac artery aneursym (right 2.0cm and left 3.0 cm)- all stable in size; chronic thoracic aortic dissection- stable- vascular recommended repeating imaging May 2024 ESRD (end stage renal disease) on dialysis [facility] in [place] Fri-Fri-Fri Sacral decubitus ulcer, stage IV (Acute) "stable to improved" per OR wound clinic>[facility] 2X PER WEEK. patient's changes dressing as instructed at home. Neuropathic pain Hyperlipidemia Anemia due to chronic kidney disease Anxiety Medical History Encounter for pre-operative examination Lobar pneumonia 08/2022 treated at [facility] inpatient. 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 [facility] FOR 3 YEARS D/T CYSTS. inhibiting patient to ambulate. 04/25/23: awaiting for surgery to remove the spinal cyst but will need his ulcer wound repaired and healed fully first --> reason for upcoming colostomy. History of CHF (congestive heart failure) Impotence, organic Sleep apnea CPAP PTSD (post-traumatic stress disorder) POST AORTIC DISSECTION Neurogenic bladder Self Catheterization since Aortic repair 4-5X PER DAY Lumbar spinal stenosis Surgical History History of removal of tunneled central venous catheter (CVC) with port removal of perm cath 05/[address] Marroquin S/P arteriovenous (AV) fistula creation left S/P debridement (02/08/22) Sacral Wound Debridment, Sacral bone biopsy(Not Applicable) - Jose Le DO S/P debridement (06/27/21) Excisional Debridement Sacral Decubitus Ulcer down to muscle level 4cm x 6cm - Ranjeet Myers, DO 06/27/2021 Excisional Debridement of Sacral Decubitus Ulcer Down to Bone, 11cm x 10cm(Not Applicable) - Ranjeet Myers, DO 07/25/2021: MAC 3, ETT 7.5. History of revision of total hip arthroplasty History of arthroplasty of left hip S/P total right hip arthroplasty History of cardioversion mult>FOLLOWS WITH DR. JARVIS History of lumbar fusion History of bladder surgery History of transurethral resection of prostate Nausea and vomiting after administration of anesthetic agent History of arthroscopy RT KNEE History of open reduction and internal fixation (ORIF) procedure RT WRIST History of total knee replacement RT History of esophagogastroduodenoscopy (EGD) History of colonoscopy History of tooth extraction History of rhinoplasty History of cataract surgery RT/LEFT 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 History of gastric bypass 2010 History of cardiac catheterization 2004 - no stents - [facility] in [place] Family History Grandmother Family history of diabetes mellitus Mother Gallbladder disease Father Prostate cancer Myocardial infarction Hypertension Other Family history non-contributory No family history of adverse response to anesthesia Denies family history of Ovarian cancer Breast cancer Colorectal cancer Social History Smoking Status: Never smoker Second Hand Exposure: No; Do You Dip or Chew Tobacco: No; Hx Alcohol Use: No Hx Substance Use: No Preferred Language: Urdu Communication Ability: Effective Visual Impairment: Limited Hearing Ability: Normal Doll Repairer Required: No Beliefs That Will Affect Care: None marital status: Current Living Situation: Spouse Current Living Situation Comment: home wiith current occupational status: retired How many Children do You have: 1 Feels Safe at Home: Yes Safety Concerns: Feels Safe At This Time Childhood Exposure to Second-Hand Smoke: Yes (father did ) Diet: regular Diet Comment: low sugar, low phospate caffeine: Yes (tea) during the past year weight has: remained stable Dental Care, Regularly: Yes Physical Activity Frequency: Does not Exercise Physical Activity Frequency Comment: goes to PT twice a week Seatbelt Use: always Sunscreen Use: Yes Do you think of yourself as: straight/heterosexual Gender Identity: Male Assistive Devices: Lift Chair and Scooter/Electric Scooter Review of Systems Review of Systems: All systems reviewed & are unremarkable except as noted in HPI & below Physical Exam Physical Exam: General: patient chronically ill, debilitated Skin: tunneled sacral ulcer present with some purulent drainage, foul smelling HEENT: NC/AT, PERRL, EOMI, anicteric sclera, conjunctiva without injection, external ear normal to inspection and nontender, nares patent, moist mucus membranes, poor oral hygiene, no oropharyngeal lesions, neck supple, trachea midline, no LAD, no thyromegaly, no JVD Heart: +S1/S2, regular, 4/6 IVA across precordium Lungs: equal air entry bilaterally, no rales/rhonchi/wheezes Abd: +BS, soft, NT/ND, no masses/organomegaly/ascites Ext: warm, 2+ pulses in UE/LE bilaterally, no clubbing/cyanosis, 1+ edema of bilateral LE Neuro: minimal movement bilateral LE Results & Data Results & Data Vital Signs (Past 12 Hours) Vital Signs Temp Pulse Pulse Resp BP BP Pulse Ox 04/12/24 23:40 92 H 04/12/24 22:21 70 19 97 04/12/24 22:18 130/79 04/12/24 22:18 130/79 04/12/24 22:17 83 16 130/79 96 04/12/24 20:35 79 16 95 04/12/24 19:41 77 04/12/24 19:37 37.1 C 70 16 143/96 H 95 O2 Del Method 04/12/24 23:40 04/12/24 22:21 04/12/24 22:18 04/12/24 22:18 04/12/24 22:17 Room Air 04/12/24 20:35 Room Air 04/12/24 19:41 04/12/24 19:37 Room Air Laboratory Results Laboratory Results WBC 5.83 K/ul (4.8-10.8) 04/12/24 20:30 RBC 3.23 M/uL (4.70-6.10) L 04/12/24 20:30 Hgb 10.2 g/dl (14.0-18.0) L 04/12/24 20:30 Hct 33.5 % (42.0-52.0) L 04/12/24 20:30 MCV 103.7 fL (80.0-100.0) H 04/12/24 20:30 MCH 31.6 pg (25.0-34.0) 04/12/24 20: MCHC 30.4 g/dL (32.0-36.0) L 04/12/24 20:30 RDW Std Deviation 62.4 fL (36.4-46.3) H 04/12/24 20:30 RDW Coeff of Hector 16.6 % (11.5-14.5) H 04/12/24 20:30 Plt Count 168 K/uL (130-400) 04/12/24 20:30 MPV 9.0 fL (9.4-12.4) L 04/12/24 20:30 Immature Gran % (Auto) 0.2 % 04/12/24 20:30 Neut % (Auto) 76.0 % 04/12/24 20:30 Lymph % (Auto) 10.8 % 04/12/24 20:30 [place] % (Auto) 8.1 % 04/12/24 20:30 Eos % (Auto) 3.9 % 04/12/24 20:30 Baso % (Auto) 1.0 % 04/12/24 20:30 Neut # (Auto) 4.43 K/uL (1.40-6.50) 04/12/24 20:30 Lymph # (Auto) 0.63 K/uL (1.20-3.40) L 04/12/24 20:30 [place] # (Auto) 0.47 K/uL (0.11-0.59) 04/12/24 20:30 Eos # (Auto) 0.23 K/uL (0.00-0.50) 04/12/24 20:30 Baso # (Auto) 0.06 K/uL (0.00-0.20) 04/12/24 20:30 Immature Gran # (Auto) 0.01 K/uL (0.01-0.20) 04/12/24 20:30 Sodium 137 mmol/L (136-145) 04/12/24 20:30 Potassium 4.6 mmol/L (3.5-5.1) 04/12/24 20:30 Chloride 95 mmol/L (98-107) L 04/12/24 20:30 Carbon Dioxide 34 mmol/L (21-32) H 04/12/24 20:30 Anion Gap 8 (3-11) 04/12/24 20:30 BUN 30 mg/dl (6-23) H 04/12/24 20:30 Creatinine 3.29 mg/dl (0.6-1.4) H 04/12/24 20:30 Est Cr Clr Drug Dosing 20.6 ml/min 04/12/24 20:30 Est GFR ( Amer) 19.9 ml/min 04/12/24 20:30 Est GFR (Non-Af Amer) 17.1 ml/min 04/12/24 20:30 BUN/Creatinine Ratio 9.1 (10-20) L 04/12/24 20:30 Glucose 88 mg/dl (70-99(Fasting)) 04/12/24 20:30 Lactate 1.5 mmol/L (0.4-2.0) 04/12/24 21:13 Calcium 9.2 mg/dl (8.6-10.3) 04/12/24 20:30 Total Bilirubin 0.6 mg/dl (0.2-1.0) 04/12/24 20:30 AST 23 U/L (13-39) 04/12/24 20:30 ALT 15 U/L (7-52) 04/12/24 20:30 Alkaline Phosphatase 123 U/L (34-104) H 04/12/24 20:30 Total Protein 6.7 gm/dl (6.0-8.3) 04/12/24 20:30 Albumin 3.9 gm/dl (3.4-5.0) 04/12/24 20:30 Globulin 2.8 gm/dl (2.5-4.0) 04/12/24 20:30 Albumin/Globulin Ratio 1.4 (0.9-2) 04/12/24 20:30 Lipase 45 U/L (11-82) 04/12/24 20:30 Urine Color Yellow 04/12/24 20:50 Urine Appearance Clear (Clear) 04/12/24 20:50 Urine pH >= 9.0 (4.5-7.5) H 04/12/24 20:50 Ur Specific [place] 1.008 (1.000-1.030) 04/12/24 20:50 Urine Protein 2+ (Negative) H 04/12/24 20:50 Urine Glucose (UA) Negative (Negative) 04/12/24 20:50 Urine Ketones Negative (Negative) 04/12/24 20:50 Urine Blood Trace (Negative) H 04/12/24 20:50 Urine Nitrite Negative (Negative) 04/12/24 20:50 Urine Bilirubin Negative (Negative) 04/12/24 20:50 Urine Urobilinogen Negative (Negative) 04/12/24 20:50 Ur Leukocyte Esterase 3+ (Negative) H 04/12/24 20:50 Urine WBC (Auto) >50 /hpf (0-5) H 04/12/24 20:50 Urine RBC (Auto) 0-2 /hpf (0-2) 04/12/24 20:50 U Hyaline Cast (Auto) 0-2 /lpf (0-2) 04/12/24 20:50 U Epithel Cells (Auto) 0-2 /hpf (0-2) 04/12/24 20:50 Urine Bacteria (Auto) 2+ (None Seen) H 04/12/24 20:50 Adenovirus (PCR) Not Detected (NotDetected) 04/12/24 23:56 B. pertussis DNA (PCR) Not Detected (NotDetected) 04/12/24 23:56 B.parapertussis DNA PCR Not Detected (NotDetected) 04/12/24 23:56 C. pneumoniae DNA (PCR) Not Detected (NotDetected) 04/12/24 23:56 Coronavirus OC43 (PCR) Not Detected (NotDetected) 04/12/24 23:56 Coronavirus HKU1 (PCR) Not Detected (NotDetected) 04/12/24 23:56 Coronavirus 229E (PCR) Not Detected (NotDetected) 04/12/24 23:56 SARS-CoV-2 (PCR) Not Detected (NotDetected) 04/12/24 23:56 Coronavirus NL63 (PCR) Not Detected (NotDetected) 04/12/24 23:56 Human Metapneumovir PCR Not Detected (NotDetected) 04/12/24 23:56 Influenza Type A (PCR) Not Detected (NotDetected) 04/12/24 23:56 Influenza Type B (PCR) Not Detected (NotDetected) 04/12/24 23:56 M. pneumoniae (PCR) Not Detected (NotDetected) 04/12/24 23:56 Parainfluenza 1 (PCR) Not Detected (NotDetected) 04/12/24 23:56 Parainfluenza 2 (PCR) Not Detected (NotDetected) 04/12/24 23:56 Parainfluenza 3 (PCR) Not Detected (NotDetected) 04/12/24 23:56 Parainfluenza 4 (PCR) Not Detected (NotDetected) 04/12/24 23:56 RSV (PCR) Not Detected (NotDetected) 04/12/24 23:56 Entero/Rhino (PCR) Not Detected (NotDetected) 04/12/24 23:56 Impressions Abdomen/Pelvis CT 04/12/24 21:24 Exam(s): CT ABDOMEN + PELVIS Without Contrast EXAM: CT Abdomen and Pelvis Without Intravenous Contrast CLINICAL HISTORY: Reason for exam: ostomy, stool in rectum, eval for fistula. TECHNIQUE: Axial computed tomography images of the abdomen and pelvis without intravenous contrast. CTDI is 22 mGy and DLP is 1114 mGy-cm. Automated exposure control was utilized for the study. A dose lowering technique was utilized adhering to the principles of ALARA. COMPARISON: CT abdomen/pelvis: 09/20/2022 FINDINGS: Diagnostic sensitivity of the exam is reduced by motion artifact. Lung bases: Trace/small bilateral pleural effusions and posteriorly basilar consolidative infiltrates, LT>RT increased since prior. Cardiomegaly. Median sternotomy. A mildly elevated left hemidiaphragm. ABDOMEN: Analysis of abdominal/pelvic viscera and vascular structures is limited in absence of IV contrast. Liver: Unremarkable. Gallbladder and bile ducts: Significantly distended gallbladder. No calcified stones. No ductal dilation. Pancreas: Unremarkable. Spleen: Unremarkable. Adrenals: Unremarkable. No mass. Kidneys and ureters: Moderate to severely atrophic kidneys. Exophytic small right renal cysts. No obstructing stones. No hydronephrosis. Stomach and bowel: Previous Kang-en-Y gastric bypass/bariatric surgery. Interval left lower quadrant loop ostomy. Normal caliber small and large bowel loops. Moderately large amount of formed stool is seen throughout the colon. An impacted inspissated fecal debris is seen in a mild/moderately distended rectosigmoid. Circumferential wall thickening of the rectum. No fistulous communication is evident. PELVIS: Evaluation of the pelvic viscera is hampered by extensive metallic beam hardening artifact from patient's bilateral hip replacement hardware. Appendix: No acute findings in the region of the appendix. Bladder: An empty urinary bladder with a Perry's catheter in situ. Heterogeneously dense abnormal wall thickening of the bladder, concerning for chronic cystitis. Reproductive: Grossly unremarkable as visualized. ABDOMEN and PELVIS: Intraperitoneal space: Unremarkable. No free air. No significant fluid collection. Bones/joints: Osteopenia. Mild/moderate lumbar levoscoliosis. Postsurgical spine with posterior fusion instrumentation from L3-L5 levels. Mild L2 vertebral retrolisthesis. No acute fracture. Mild/moderate thoracolumbar degenerative spondylitic changes. Lumbar facet osteoarthropathy. Total bilateral hip arthroplasty.. Soft tissues: Posteriorly inferior to the coccyx in the midline a moderately large size cutaneous/soft tissue ulceration again noted increased since prior comparison. Mild body wall soft tissue edema. Vasculature: Diffuse calcified atherosclerosis of the aortoiliac vasculature. Chronic infrarenal aortic dissection is again seen. 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 Lymph nodes: Unremarkable. No enlarged lymph nodes. 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 . IMPRESSION: Lung bases: Small bilateral pleural effusions, posteriorly basilar consolidative infiltrate/pneumonia LT>RT, increased since prior comparison. A significantly distended gallbladder. Clinical correlation is advised. Previous Kang-en-Y gastric bypass. Interval status post left lower quadrant loop ostomy. Moderately large amount of formed stool seen throughout the colon. An impacted/inspissated fecal debris is seen in a mild/moderately distended rectosigmoid. There is circumferential rectal wall thickening. Heterogeneously dense abnormal wall thickening of a decompressed urinary bladder, concerning for chronic cystitis. Again seen chronic infrarenal aortic dissection. Diffuse calcified atherosclerosis of the aortoiliac vasculature. 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 Posteriorly inferior to the coccyx in midline a moderately large size cutaneous/soft tissue ulceration again noted increased in size since comparison. . Electronically signed by: Trista Booker MD, TWINR 04/12/24 23:24 PM PG Care Time/CCT Total # of Minutes Spent Total Time Spent with Patient: Total time spent is greater than 50% in coordination of care (as documented) at patient's floor/unit and/or counseling patient: Coding Level of Care Code 38491 INT INP/OBS CARE 3/75MIN Diagnoses Altered bowel elimination due to intestinal ostomy K94.19 Sacral ulcer L98.429 Pneumonia J18.9
[2024-04-13 01:02] LABS: Adenovirus PCR Not Detected (NotDetected); Bordetella parapertussis PCR Not Detected (NotDetected); Bordetella pertussis PCR Not Detected (NotDetected); Chlamydia pneumoniae PCR Not Detected (NotDetected); Coronavirus 229E PCR Not Detected (NotDetected); Coronavirus CoV-2 (COVID19)PCR Not Detected (NotDetected); Coronavirus HKU1 PCR Not Detected (NotDetected); Coronavirus NL63 PCR Not Detected (NotDetected); Coronavirus OC43PCR Not Detected (NotDetected); Human Metapneumovirus PCR Not Detected (NotDetected); Influenza A PCR Not Detected (NotDetected); Influenza B PCR Not Detected (NotDetected); Mycoplasma pneumoniae PCR Not Detected (NotDetected); Parainfluenza Virus 1 PCR Not Detected (NotDetected); Parainfluenza Virus 2 PCR Not Detected (NotDetected); Parainfluenza Virus 3 PCR Not Detected (NotDetected); Parainfluenza Virus 4 PCR Not Detected (NotDetected); Respiratory Syncytial VirusPCR Not Detected (NotDetected); Rhinovirus/Enterovirus PCR Not Detected (NotDetected)
[2024-04-13] MEDS ORDERED: ONDANSETRON INJ 2 MG/ML 2 ML VIAL IV PRN (03:21)
[2024-04-13] MEDS ORDERED: oxyCODONE/ACETAMINOPHEN 5mg/325mg TAB PO PRN (03:21)
[2024-04-13] MEDS ORDERED: VANCOMYCIN CONSULT ACTIVE PRN (03:21)
[2024-04-13] MEDS: VANCOMYCIN HCL 1,750 MG in SODIUM CHLORIDE 0.9% 500 ML IV ONE (04:04)
[2024-04-13] MEDS: bisacodyL 10 MG SUPP PR STA ×2 (04:04→13:00)
[2024-04-13 06:31] LABS: Creatinine Clr Calc Pharmacy 18.6 ml/min; Est GFR (African American) 17.5 ml/min; Est GFR (Non-African American) 15.1 ml/min
--- NOTE | 2024-04-13 07:35 | XRay Report ---
XR chest 1V portable HISTORY: 78 years-old Male weakness COMPARISON: 10/31/23 TECHNIQUE: AP view of the chest FINDINGS: Cardiac silhouette is enlarged. Median sternotomy. Atherosclerosis of the aorta. No pneumothorax or o vert pulmonary edema. Mild subsegmental linear left basilar opacities. Bones appear grossly intact. S urgical clips project over the right axilla. IMPRESSION: 1. Cardiomegaly without overt pulmonary edema. 2. Subsegmental left basilar opacities favor atelectasis. Pneumonitis considered less likely. ACT 112: Negative or not required by law. The above report was generated using voice recognition software. It may contain grammatical, syntax o r spelling errors. Electronically signed by: Stan Lui M.D. 04/13/2024 7:33 AM
--- NOTE | 2024-04-13 09:12 | Pharmacy Report ---
Pharmacy PK ABX Note - Date of Service April 13, 2024 - Assessment and Plan Assessment 78 year old M receiving vancomycin and cefepime empirically. 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 Patient had loop colostomy 04/2023 to assist with wound healing of sacral ulcer. Recently, however has been having stool output from rectum and increased sacral pain at ulcer site. Patient with hx of MDRO - MRSA, enterococcus, PA on previous wound cultures. Had followed with ID and wound care before in the past. Cultures currently pending. Plans for potential colostomy revision per notes. Plan Vancomycin * Loading dose: 1750 mg IV x 1 given this AM * Patient ESRD, will hold further doses of vancomycin for today * Plan to order a random vancomycin level tomorrow prior to next scheduled HD session to assist with further dosing. Pharmacy will continue to follow and will adjust dose/frequency as necessary. Thank you.
[2024-04-13] MEDS: SEVELAMER CARBONATE 800 MG TAB PO SCH ×2 (09:19→18:38)
[2024-04-13] MEDS: METOPROLOL SUCC 25MG EXT REL TAB PO SCH (09:19)
--- NOTE | 2024-04-13 11:35 | Hospitalist Progress Note ---
Date of Service April 13, 2024 Assessment & Plan (1) Sacral ulcer: Plan: Pt is a 78 yo male with PMH of stage 4 sacral ulcer (s/p diverting colostomy for healing purposes), ESRD (dialysis MWF), HLD, L1/L2 spinal cord cyst, WEI, and paraplegia presenting d/t concern for stool in rectum. Sacral ulcer s/p diverting colostomy - per pt, stool coming from rectum which is new for him - CTAP showed moderate amount of stool in colon with impacted fecal debris in the rectosigmoid - gen surg consulted; no surgical intervention recommended at this time- f/u outpatient with pt's surgeon (Dr. Hou) - will continue with suppositories until pt has significant stool burden relief Productive cough - pt originally treated for PNA upon admission with cefepime - pt w/o fevers or leukocytosis; clinically appearing well - CXR showing bilateral basilar opacities consistent with atelectasis - suspect atelectasis rather than true PNA; however, d/t prolonged symptoms of productive cough will treat with short course of renally- dosed augmentin (x3-5 days) - discussed deep breathing activities with pt including incentive spirometry ESRD - dialysis MWF - continue sevelamer - nephro consulted Afib - currently rate controlled NSR - continue metoprolol, eliquis Diet: heart healthy DVT ppx: eliquis 2.5mg BID Code: full Dispo: med/surg; anticipate discharge home once stable (2) ESRD (end stage renal disease) on dialysis: (3) Atrial fibrillation: (4) Hypertension: Admission and Anticipated Discharge Date Admission Date: April 13, 2024 Supervising Physician Co-Signing Physician Notes Attending Physician Supervision Note: I independently interviewed and examined the patient and verified the well[place] history and physical, reviewed labs and image studies and agree with findings and care plan noted above. Concern of stool in rectum - s/p diversion sigmoid colostomy status - evaluated by surgery - possibly old blood in rectum. Suppository ordered. Outpatient f/u with surgery. -Moderate stool across the whole colon. Ostomy with + output. Subjective Pt is a 78 yo male with PMH of stage 4 sacral ulcer (s/p diverting colostomy for healing purposes), ESRD (dialysis MWF), HLD, L1/L2 spinal cord cyst, WEI, and paraplegia presenting d/t concern for stool in rectum. Pt notes he had a wound vac removed from his sacral wound on Friday. Afterwards, he noted stool coming "explosive" from his rectum. Otherwise, pt feels well. He does note an ongoing productive cough for many weeks. Review of Systems Review of Systems: As per HPI Physical Exam Physical Exam: Constitutional: well appearing, no acute distress HEENT: normocephalic, no conjunctival injection CV: RRR, no murmur, no LE edema Respiratory: CTA in bilateral upper lobes; diminished breath sounds in bilateral lower lobes R>L. No rhonchi, wheezes, or crackles. No increased work of breathing Skin: warm, dry, no rashes; sacral ulcer noted- without signs of active infection Neuro: alert, oriented, no FND noted Psych: mood and affect congruent Results & Data Results & Data Vital Signs (Past 12 Hours) Vital Signs Temp Pulse Pulse Resp BP BP Pulse Ox 04/13/24 08:00 36.7 C 78 16 113/68 97 04/13/24 02:00 36.9 C 76 18 118/83 95 04/13/24 00:03 82 14 04/13/24 00:00 123/70 04/12/24 23:40 92 H 04/12/24 23:39 88 23 97 O2 Del Method 04/13/24 08:00 Room Air 04/13/24 02:00 Room Air 04/13/24 00:03 04/13/24 00:00 04/12/24 23:40 04/12/24 23:39 Resident Activity Tracking Resident Involvement: Resident Care Provided Care Provided: Adult Hospital Medicine (3) Atrial fibrillation Atrial fibrillation type: permanent Qualified Code(s): I48.2 - Chronic atrial fibrillation (4) Hypertension Hypertension type: essential hypertension Qualified Code(s): I10 - Essential (primary) hypertension
[2024-04-13] MEDS ORDERED: CEFEPIME 1,000 MG in SYRINGE 0 ML IV SCH ×2 (12:00→17:00)
--- NOTE | 2024-04-13 12:19 | Nephrology Consultation ---
Date of Consultation April 13, 2024 Assessment & Plan (1) ESRD (end stage renal disease) on dialysis: * Patient was last dialyzed yesterday. Today he appears clinically euvolemic. Electrolyte balance is acceptable. * Will schedule next hemodialysis for 04/14 AM. * Patient orders: MWF 3:15hr 3K 2.5Ca Na 138 HCO3 37 F-180NR EDW 79.5 kg L arm AVF (2) Altered bowel elimination due to intestinal ostomy: * CT films and report reviewed * Await surgical recommendations (3) Sacral ulcer: * nurse staff to roll patient per protocol to offload sacral pressure * Wound vac in place History of Present Illness Reason for Consultation: ESKD-D Attending Physician: Shari Zee MD History of Present Illness Mr. Escobedo is a 71-year-old seen at the request of [facility] hospitalist service to provide inpatient hemodialysis and assist with medical management. Information for the HPI is obtained from direct patient interview and review of EMR. HPI is summarized as follows: Mr. 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 He currently dialyzes MWF at [facility] under the care of Dr. Paul. Outpatient hemodialysis orders are as follows: 3:15 3K 2.5Ca Na 138 HCO3 37 F-180NR EDW 79.5 kg L arm AVF. Mr. Escobedo was last dialyzed on Friday. He reports no complications. 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 He is paraplegic requiring a motorized scooter to get ar ound. He has an indwelling Perry catheter and has developed a complicated stage IV sacral decubitus ulcer. This has been complicated by osteomyelitis of the sacrum. Patient has completed antibiotic therapy. In order to improve wound healing Mr. Escobedo underwent laparoscopic creation of loop sigmoid colostomy by Dr. Hou 05/19. Mr. Escobedo has since underwent evaluation at several medical facilities to close his sacral decubitus ulcer. This has been difficult because they are unable to offload pressure from the site. He is currently he is under the care of wound center at [facility]. Mr. Escobedo reports that over the last several days output from his colostomy has decreased. Last evening he suffered a large bowel movement from his rectum. He presented to the emergency department for evaluation. Abdominal CT revealed a previous Kang-en-Y gastric bypass in the presence of his left lower quadrant loop ostomy. A moderately large amount of stool was seen throughout the colon. There is an impacted fecal debris within the distended rectosigmoid. There is also circumferential rectal wall thickening. Mr. Escobedo has been admitted to the hospital for surgical evaluation and ongoing hemodialysis. Allergies Allergy/AdvReac Type Severity Reaction Status Date / Time tetracycline Allergy Intermediate HIVES Verified 12/30/23 13:55 morphine AdvReac Intermediate Nausea Verified 12/30/23 13:55 Home Medications Medication Instructions Recorded Confirmed Type cholecalciferol (vitamin D3) 50 50 mcg PO QPM 12/31/19 12/30/23 History mcg (2,000 unit) tablet (Vitamin D3) Wheelchair (Powered) (Power #1 ea 01/04/22 12/30/23 Rx Wheelchair) sevelamer carbonate 800 mg tablet See Rx Instructions .Route .COMPLEX 09/20/22 12/30/23 History atorvastatin 20 mg tablet (Lipitor) 20 mg PO QPM #90 tabs 09/10/23 12/30/23 Rx alprazolam 0.25 mg tablet 0.25 mg PO HS PRN Anxiety/Panic 10/09/23 12/30/23 Rx attacks #30 tabs Mattress (Air or other) #1 ea 10/21/23 12/30/23 Rx metoprolol succinate 25 mg 25 mg PO QAM #90 tabs 12/01/23 12/30/23 Rx tablet,extended release 24 hr vitamin B complex and vitamin C 1 cap PO QAM #90 caps 12/17/23 12/30/23 Rx no.20-folic acid 1 mg capsule (Renal Caps) mirtazapine 7.5 mg tablet 7.5 mg PO DAILY #60 tabs 01/26/24 Rx apixaban 2.5 mg tablet (Eliquis) 2.5 mg PO BID #180 tabs 02/03/24 Rx Power wheelchair repair See Rx Instructions .Route 03/01/24 Rx .COMPLEX #1 ea gabapentin 300 mg capsule 600 mg (2 x 300 mg) PO HS #180 caps 03/05/24 Rx oxycodone-acetaminophen 5 mg-325 1 tab PO Q6H PRN pain #30 tabs 03/05/24 Rx mg tablet (Percocet) Patient History Medical History Encounter for pre-operative examination Lobar pneumonia 08/2022 treated at [facility] inpatient. 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 Shrestha at [facility] [place]>WC BOUND FOR 3 YEARS D/T CYSTS. inhibiting patient to ambulate. 04/25/23: awaiting for surgery to remove the spinal cyst but will need his ulcer wound repaired and healed fully first --> reason for upcoming colostomy. History of CHF (congestive heart failure) Impotence, organic Sleep apnea CPAP PTSD (post-traumatic stress disorder) POST AORTIC DISSECTION Neurogenic bladder Self Catheterization since Aortic repair 4-5X PER DAY Lumbar spinal stenosis Surgical History History of removal of tunneled central venous catheter (CVC) with port removal of perm cath 05/[address] Marroquin S/P arteriovenous (AV) fistula creation left S/P debridement (02/08/22) Sacral Wound Debridment, Sacral bone biopsy(Not Applicable) - Jose Le, S/P debridement (06/27/21) Excisional Debridement Sacral Decubitus Ulcer down to muscle level 4cm x 6cm - Ranjeet Myers, 06/27/2021 Excisional Debridement of Sacral Decubitus Ulcer Down to Bone, 11cm x 10cm(Not Applicable) - Ranjeet Myers, 07/25/2021: MAC 3, ETT 7.5. History of revision of total hip arthroplasty History of arthroplasty of left hip S/P total right hip arthroplasty History of cardioversion mult>FOLLOWS WITH DR. 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 History of gastric bypass 2011 History of cardiac catheterization 2004 - no stents - [facility] in [place] Family History Grandmother Family history of diabetes mellitus Mother Gallbladder disease Father Prostate cancer Myocardial infarction Hypertension Other Family history non-contributory No family history of adverse response to anesthesia Denies family history of Ovarian cancer Breast cancer Colorectal cancer Social History Smoking Status: Never smoker Second Hand Exposure: No; Do You Dip or Chew Tobacco: No; Hx Alcohol Use: No Hx Substance Use: No Preferred Language: Finnish Communication Ability: Effective Visual Impairment: Limited Hearing Ability: Normal Straightening Machine Operator Required: No Beliefs That Will Affect Care: None marital status: Current Living Situation: Spouse Current Living Situation Comment: home wiith current occupational status: retired How many Children do You have: 1 Feels Safe at Home: Yes Safety Concerns: Feels Safe At This Time Childhood Exposure to Second-Hand Smoke: Yes (father did ) Diet: regular Diet Comment: low sugar, low phospate caffeine: Yes (tea) during the past year weight has: remained stable Dental Care, Regularly: Yes Physical Activity Frequency: Does not Exercise Physical Activity Frequency Comment: goes to PT twice a week Seatbelt Use: always Sunscreen Use: Yes Do you think of yourself as: straight/heterosexual Gender Identity: Male Assistive Devices: Lift Chair and Scooter/Electric Scooter Review of Systems Constitutional: no fever Eyes: no problem reported Ear, Nose, Mouth, Throat: no problem reported Respiratory: no cough and no dyspnea Cardiovascular: no chest pain Gastrointestinal: + fecal incontinence (No ostomy output); no abdominal pain, no nausea and no vomiting Integumentary: no rash Physical Exam Constitutional: not in distress Eyes: PERRL, conjunctivae normal, anicteric sclerae ENMT: external ear and nose normal, oropharynx normal Neck: trachea midline, no thyromegaly Respiratory: normal respiratory effort, lungs clear to auscultation Cardiovascular: RRR, no murmur, no edema L upper arm AVF + bruit Gastrointestinal (Abdomen): normal bowel sounds, soft, nontender, no hepatosplenomegaly LLQ colostomy bag with small amount of stool Skin: no rashes, warm and dry Neurologic: Speech / Cognition: normal speech and normal cognition Results & Data Vital Signs (Past 12 Hours) Vital Signs Temp Pulse Resp BP Pulse Ox O2 Del Method 04/13/24 08:00 36.7 C 78 16 113/68 97 Room Air 04/13/24 02:00 36.9 C 76 18 118/83 95 Room Air Laboratory Results Laboratory Results WBC 5.83 K/ul (4.8-10.8) 04/12/24 20:30 RBC 3.23 M/uL (4.70-6.10) L 04/12/24 20:30 Hgb 10.2 g/dl (14.0-18.0) L 04/12/24 20:30 Hct 33.5 % (42.0-52.0) L 04/12/24 20:30 MCV 103.7 fL (80.0-100.0) H 04/12/24 20:30 MCH 31.6 pg (25.0-34.0) 04/12/24 20:30 MCHC 30.4 g/dL (32.0-36.0) L 04/12/24 20:30 RDW Std Deviation 62.4 fL (36.4-46.3) H 04/12/24 20:30 RDW Coeff of Hector 16.6 % (11.5-14.5) H 04/12/24 20:30 Plt Count 168 K/uL (130-400) 04/12/24 20:30 MPV 9.0 fL (9.4-12.4) L 04/12/24 20:30 Immature Gran % (Auto) 0.2 % 04/12/24 20:30 Neut % (Auto) 76.0 % 04/12/24 20:30 Lymph % (Auto) 10.8 % 04/12/24 20:30 [place] % (Auto) 8.1 % 04/12/24 20:30 Eos % (Auto) 3.9 % 04/12/24 20:30 Baso % (Auto) 1.0 % 04/12/24 20:30 Neut # (Auto) 4.43 K/uL (1.40-6.50) 04/12/24 20:30 Lymph # (Auto) 0.63 K/uL (1.20-3.40) L 04/12/24 20:30 [place] # (Auto) 0.47 K/uL (0.11-0.59) 04/12/24 20:30 Eos # (Auto) 0.23 K/uL (0.00-0.50) 04/12/24 20:30 Baso # (Auto) 0.06 K/uL (0.00-0.20) 04/12/24 20:30 Immature Gran # (Auto) 0.01 K/uL (0.01-0.20) 04/12/24 20:30 Sodium 137 mmol/L (136-145) 04/12/24 20:30 Potassium 4.6 mmol/L (3.5-5.1) 04/12/24 20:30 Chloride 95 mmol/L (98-107) L 04/12/24 20:30 Carbon Dioxide 34 mmol/L (21-32) H 04/12/24 20:30 Anion Gap 8 (3-11) 04/12/24 20:30 BUN 30 mg/dl (6-23) H 04/12/24 20:30 Creatinine 3.65 mg/dl (0.6-1.4) H D 04/13/24 05:36 Est Cr Clr Drug Dosing 18.6 ml/min 04/13/24 05:36 Est GFR ( Amer) 17.5 ml/min 04/13/24 05:36 Est GFR (Non-Af Amer) 15.1 ml/min 04/13/24 05:36 BUN/Creatinine Ratio 9.1 (10-20) L 04/12/24 20:30 Glucose 88 mg/dl (70-99(Fasting)) 04/12/24 20:30 Lactate 1.5 mmol/L (0.4-2.0) 04/12/24 21:13 Calcium 9.2 mg/dl (8.6-10.3) 04/12/24 20:30 Total Bilirubin 0.6 mg/dl (0.2-1.0) 04/12/24 20:30 AST 23 U/L (13-39) 04/12/24 20:30 ALT 15 U/L (7-52) 04/12/24 20:30 Alkaline Phosphatase 123 U/L (34-104) H 04/12/24 20:30 Total Protein 6.7 gm/dl (6.0-8.3) 04/12/24 20:30 Albumin 3.9 gm/dl (3.4-5.0) 04/12/24 20:30 Globulin 2.8 gm/dl (2.5-4.0) 04/12/24 20:30 Albumin/Globulin Ratio 1.4 (0.9-2) 04/12/24 20:30 Lipase 45 U/L (11-82) 04/12/24 20:30 Urine Color Yellow 04/12/24 20:50 Urine Appearance Clear (Clear) 04/12/24 20:50 Urine pH >= 9.0 (4.5-7.5) H 04/12/24 20:50 Ur Specific [place] 1.008 (1.000-1.030) 04/12/24 20:50 Urine Protein 2+ (Negative) H 04/12/24 20:50 Urine Glucose (UA) Negative (Negative) 04/12/24 20:50 Urine Ketones Negative (Negative) 04/12/24 20:50 Urine Blood Trace (Negative) H 04/12/24 20:50 Urine Nitrite Negative (Negative) 04/12/24 20:50 Urine Bilirubin Negative (Negative) 04/12/24 20:50 Urine Urobilinogen Negative (Negative) 04/12/24 20:50 Ur Leukocyte Esterase 3+ (Negative) H 04/12/24 20:50 Urine WBC (Auto) >50 /hpf (0-5) H 04/12/24 20:50 Urine RBC (Auto) 0-2 /hpf (0-2) 04/12/24 20:50 U Hyaline Cast (Auto) 0-2 /lpf (0-2) 04/12/24 20:50 U Epithel Cells (Auto) 0-2 /hpf (0-2) 04/12/24 20:50 Urine Bacteria (Auto) 2+ (None Seen) H 04/12/24 20:50 Adenovirus (PCR) Not Detected (NotDetected) 04/12/24 23:56 B. pertussis DNA (PCR) Not Detected (NotDetected) 04/12/24 23:56 B.parapertussis DNA PCR Not Detected (NotDetected) 04/12/24 23:56 C. pneumoniae DNA (PCR) Not Detected (NotDetected) 04/12/24 23:56 Coronavirus OC43 (PCR) Not Detected (NotDetected) 04/12/24 23:56 Coronavirus HKU1 (PCR) Not Detected (NotDetected) 04/12/24 23:56 Coronavirus 229E (PCR) Not Detected (NotDetected) 04/12/24 23:56 SARS-CoV-2 (PCR) Not Detected (NotDetected) 04/12/24 23:56 Coronavirus NL63 (PCR) Not Detected (NotDetected) 04/12/24 23:56 Human Metapneumovir PCR Not Detected (NotDetected) 04/12/24 23:56 Influenza Type A (PCR) Not Detected (NotDetected) 04/12/24 23:56 Influenza Type B (PCR) Not Detected (NotDetected) 04/12/24 23:56 M. pneumoniae (PCR) Not Detected (NotDetected) 04/12/24 23:56 Parainfluenza 1 (PCR) Not Detected (NotDetected) 04/12/24 23:56 Parainfluenza 2 (PCR) Not Detected (NotDetected) 04/12/24 23:56 Parainfluenza 3 (PCR) Not Detected (NotDetected) 04/12/24 23:56 Parainfluenza 4 (PCR) Not Detected (NotDetected) 04/12/24 23:56 RSV (PCR) Not Detected (NotDetected) 04/12/24 23:56 Entero/Rhino (PCR) Not Detected (NotDetected) 04/12/24 23:56 Impressions Abdomen/Pelvis CT 04/12/24 21:24 Exam(s): CT ABDOMEN + PELVIS Without Contrast EXAM: CT Abdomen and Pelvis Without Intravenous Contrast CLINICAL HISTORY: Reason for exam: ostomy, stool in rectum, eval for fistula. TECHNIQUE: Axial computed tomography images of the abdomen and pelvis without intravenous contrast. CTDI is 22 mGy and DLP is 1114 mGy-cm. Automated exposure control was utilized for the study. A dose lowering technique was utilized adhering to the principles of ALARA. COMPARISON: CT abdomen/pelvis: 09/20/2022 FINDINGS: Diagnostic sensitivity of the exam is reduced by motion artifact. Lung bases: Trace/small bilateral pleural effusions and posteriorly basilar consolidative infiltrates, LT>RT increased since prior. Cardiomegaly. Median sternotomy. A mildly elevated left hemidiaphragm. ABDOMEN: Analysis of abdominal/pelvic viscera and vascular structures is limited in absence of IV contrast. Liver: Unremarkable. Gallbladder and bile ducts: Significantly distended gallbladder. No calcified stones. No ductal dilation. Pancreas: Unremarkable. Spleen: Unremarkable. Adrenals: Unremarkable. No mass. Kidneys and ureters: Moderate to severely atrophic kidneys. Exophytic small right renal cysts. No obstructing stones. No hydronephrosis. Stomach and bowel: Previous Kang-en-Y gastric bypass/bariatric surgery. Interval left lower quadrant loop ostomy. Normal caliber small and large bowel loops. Moderately large amount of formed stool is seen throughout the colon. An impacted inspissated fecal debris is seen in a mild/moderately distended rectosigmoid. Circumferential wall thickening of the rectum. No fistulous communication is evident. PELVIS: Evaluation of the pelvic viscera is hampered by extensive metallic beam hardening artifact from patient's bilateral hip replacement hardware. Appendix: No acute findings in the region of the appendix. Bladder: An empty urinary bladder with a Perry's catheter in situ. Heterogeneously dense abnormal wall thickening of the bladder, concerning for chronic cystitis. Reproductive: Grossly unremarkable as visualized. ABDOMEN and PELVIS: Intraperitoneal space: Unremarkable. No free air. No significant fluid collection. Bones/joints: Osteopenia. Mild/moderate lumbar levoscoliosis. Postsurgical spine with posterior fusion instrumentation from L3-L5 levels. Mild L2 vertebral retrolisthesis. No acute fracture. Mild/moderate thoracolumbar degenerative spondylitic changes. Lumbar facet osteoarthropathy. Total bilateral hip arthroplasty.. Soft tissues: Posteriorly inferior to the coccyx in the midline a moderately large size cutaneous/soft tissue ulceration again noted increased since prior comparison. Mild body wall soft tissue edema. Vasculature: Diffuse calcified atherosclerosis of the aortoiliac vasculature. Chronic infrarenal aortic dissection is again seen. 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 Lymph nodes: Unremarkable. No enlarged lymph nodes. 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 . IMPRESSION: Lung bases: Small bilateral pleural effusions, posteriorly basilar consolidative infiltrate/pneumonia LT>RT, increased since prior comparison. A significantly distended gallbladder. Clinical correlation is advised. Previous Kang-en-Y gastric bypass. Interval status post left lower quadrant loop ostomy. Moderately large amount of formed stool seen throughout the colon. An impacted/inspissated fecal debris is seen in a mild/moderately distended rectosigmoid. There is circumferential rectal wall thickening. Heterogeneously dense abnormal wall thickening of a decompressed urinary bladder, concerning for chronic cystitis. Again seen chronic infrarenal aortic dissection. Diffuse calcified atherosclerosis of the aortoiliac vasculature. 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 Posteriorly inferior to the coccyx in midline a moderately large size cutaneous/soft tissue ulceration again noted increased in size since comparison. . Electronically signed by: Trista Booker MD, DABR 04/12/24 23:24 PM Chest X-Ray 04/12/24 22:13 XR chest 1V portable HISTORY: 78 years-old Male weakness COMPARISON: 10/31/23 TECHNIQUE: AP view of the chest FINDINGS: Cardiac silhouette is enlarged. Median sternotomy. Atherosclerosis of the aorta. No pneumothorax or overt pulmonary edema. Mild subsegmental linear left basilar opacities. Bones appear grossly intact. Surgical clips project over the right axilla. IMPRESSION: 1. Cardiomegaly without overt pulmonary edema. 2. Subsegmental left basilar opacities favor atelectasis. Pneumonitis considered less likely. ACT 112: Negative or not required by law. The above report was generated using voice recognition software. It may contain grammatical, syntax or spelling errors. Electronically signed by: Stan Lui M.D. 04/13/2024 7:33 AM PG Care Time/CCT Total # of Minutes Spent Total Time Spent with Patient: Total time spent is greater than 50% in coordination of care (as documented) at patient's floor/unit and/or counseling patient: Coding Level of Care Code 67123 IN/OBS CONSULT LVL 5,80M Diagnoses ESRD (end stage renal disease) on dialysis N18.6; Z99.2 Altered bowel elimination due to intestinal ostomy K94.19 Sacral ulcer L98.429
[2024-04-13] MEDS: AMOXICILLIN/CLAVULANATE 500 MG TAB PO SCH (18:38)
[2024-04-13] MEDS: ATORVASTATIN 20 MG TAB PO SCH (20:24)
[2024-04-13] MEDS: APIXABAN 2.5 MG TAB PO SCH (20:24)
[2024-04-13] MEDS: GABAPENTIN 300 MG CAP PO SCH (20:24)
[2024-04-14 06:36] LABS: Hematocrit (blood only) 30.4 % (42.0-52.0); Hemoglobin 9.2 g/dl (14.0-18.0); Mean Corpuscular Hemoglobin 31.8 pg (25.0-34.0); Mean Corpuscular Hgb Conc 30.3 g/dL (32.0-36.0); Mean Corpuscular Volume 105.2 fL (80.0-100.0); Platelet Count 161 K/uL (130-400); RDW Coefficient of Variation 16.9 % (11.5-14.5); RDW Standard Deviation 63.5 fL (36.4-46.3); Red Blood Count 2.89 M/uL (4.70-6.10); White Blood Count 4.53 K/ul (4.8-10.8)
[2024-04-14 06:55] LABS: BUN Creatinine Ratio 9.3 (10-20); Calcium 8.8 mg/dl (8.6-10.3); Creatinine Clr Calc Pharmacy 14.1 ml/min; Est GFR (African American) 12.5 ml/min; Est GFR (Non-African American) 10.8 ml/min; Potassium 4.4 mmol/L (3.5-5.1)
[2024-04-14] MEDS ORDERED: SODIUM CHLORIDE 0.9% 1,000 ML IV PRN (07:00)
--- NOTE | 2024-04-14 08:14 | Hospitalist Progress Note ---
Date of Service April 14, 2024 Assessment & Plan (1) Sacral ulcer: Plan: Pt is a 78 yo male with PMH of stage 4 sacral ulcer (s/p diverting colostomy for healing purposes), ESRD (dialysis MWF), HLD, L1/L2 spinal cord cyst, WEI, and paraplegia presenting d/t concern for stool in rectum. Sacral ulcer s/p diverting colostomy - per pt, stool coming from rectum which is new for him - CTAP showed moderate amount of stool in colon with impacted fecal debris in the rectosigmoid - gen surg consulted; no surgical intervention recommended at this time- f/u outpatient with pt's surgeon (Dr. Hou) - pt has continued with stool per rectum; will check KUB to ensure resolving impaction Productive cough - pt originally treated for PNA upon admission with cefepime - pt w/o fevers or leukocytosis; clinically appearing well - CXR showing bilateral basilar opacities consistent with atelectasis - suspect atelectasis rather than true PNA; however, d/t prolonged symptoms of productive cough will treat with short course of renally- dosed augmentin (x3 days) - discussed deep breathing activities with pt including incentive spirometry ESRD - dialysis MWF - continue sevelamer - nephro consulted Afib - currently rate controlled NSR - continue metoprolol, eliquis Diet: heart healthy DVT ppx: eliquis 2.5mg BID Code: full Dispo: med/surg (2) ESRD (end stage renal disease) on dialysis: (3) Atrial fibrillation: (4) Hypertension: Admission and Anticipated Discharge Date Admission Date: April 13, 2024 Supervising Physician Co-Signing Physician Notes Attending Physician Supervision Note: I independently interviewed and examined the patient and verified the [place] history and physical, reviewed labs and image studies and agree with findings and care plan noted above. Concern of stool in rectum - s/p diversion sigmoid colostomy status - evaluated by surgery - stool in rectum could be residual from surgery. Outpatient f/u with surgery. -Moderate stool across the colon. Ostomy with + output. Add enema per surgery input. Sacral ulcer - wound care. Subjective Pt doing well this AM. He has continued stool from his rectum. He is very concerned with re-infection of his sacral ulcer d/t this output. Review of Systems Review of Systems: As per HPI Physical Exam Physical Exam: Constitutional: well appearing, no acute distress HEENT: normocephalic, no conjunctival injection CV: RRR, 2/6 systolic murmur noted Respiratory: CTA bilaterally. No rhonchi, wheezes, or crackles. No increased work of breathing GI: soft, nondistended, nontender, + bowel sounds Neuro: alert, oriented, no FND noted Psych: mood and affect congruent Results & Data Results & Data Vital Signs (Past 12 Hours) Vital Signs Temp Pulse Resp BP Pulse Ox O2 Del Method 04/14/24 07:47 36.6 C 75 18 150/83 H 96 Room Air Resident Activity Tracking Resident Involvement: Resident Care Provided Care Provided: Adult Hospital Medicine (3) Atrial fibrillation Atrial fibrillation type: permanent Qualified Code(s): I48.2 - Chronic atrial fibrillation (4) Hypertension Hypertension type: essential hypertension Qualified Code(s): I10 - Essential (primary) hypertension
--- NOTE | 2024-04-14 09:18 | Nephrology Progress Note ---
Date of Service April 14, 2024 Assessment & Plan (1) ESRD (end stage renal disease) on dialysis: Plan: * Will provide HD today according to outpatient orders * Outpatient orders: MWF 3.25 hr 3K 2.5Ca Na 138 HCO3 37 F-180NR EDW 79.5 kg L arm AVF (2) Altered bowel elimination due to intestinal ostomy: Plan: * CT films and report reviewed * Surgery providing tap water enemas * Await further surgical input (3) Sacral ulcer: Plan: * 04/12/[address]: moderately large size cutaneous/soft tissue ulceration increased in size since comparison on 09/20/22. * staff psychiatrist to roll patient per protocol to offload sacral pressure * Wound vac in place Admission and Anticipated Discharge Date Admission Date: April 13, 2024 Subjective Mr. Escobedo was evaluated in his hospital room this morning. He reports that surgery is providing tap water enemas to clean out the rectal pouch. He denies fever or abdominal pain. Review of Systems Constitutional: no fever Eyes: no problem reported Ear, Nose, Mouth, Throat: no problem reported Respiratory: no cough and no dyspnea Cardiovascular: no chest pain Gastrointestinal: + fecal incontinence (No ostomy output); no abdominal pain, no nausea and no vomiting Integumentary: no rash Physical Exam Constitutional: not in distress Eyes: PERRL, conjunctivae normal, anicteric sclerae ENMT: external ear and nose normal, oropharynx normal Neck: trachea midline, no thyromegaly Respiratory: normal respiratory effort, lungs clear to auscultation Cardiovascular: RRR, no murmur, no edema Gastrointestinal (Abdomen): normal bowel sounds, soft, nontender, no hepatosplenomegaly Skin: no rashes, warm and dry Neurologic: Speech / Cognition: normal speech and normal cognition Results & Data Vital Signs (Past 12 Hours) Vital Signs Temp Pulse Resp BP Pulse Ox O2 Del Method 04/14/24 07:47 36.6 C 75 18 150/83 H 96 Room Air Laboratory Results Laboratory Results WBC 4.53 K/ul (4.8-10.8) L 04/14/24 05:46 RBC 2.89 M/uL (4.70-6.10) L 04/14/24 05:46 Hgb 9.2 g/dl (14.0-18.0) L 04/14/24 05:46 Hct 30.4 % (42.0-52.0) L 04/14/24 05:46 MCV 105.2 fL (80.0-100.0) H 04/14/24 05:46 MCH 31.8 pg (25.0-34.0) 04/14/24 05:46 MCHC 30.3 g/dL (32.0-36.0) L 04/14/24 05:46 RDW Std Deviation 63.5 fL (36.4-46.3) H 04/14/24 05:46 RDW Coeff of Hector 16.9 % (11.5-14.5) H 04/14/24 05:46 Plt Count 161 K/uL (130-400) 04/14/24 05:46 MPV 9.0 fL (9.4-12.4) L 04/14/24 05:46 Immature Gran % (Auto) 0.2 % 04/12/24 20:30 Neut % (Auto) 76.0 % 04/12/24 20:30 Lymph % (Auto) 10.8 % 04/12/24 20:30 [place] % (Auto) 8.1 % 04/12/24 20:30 Eos % (Auto) 3.9 % 04/12/24 20:30 Baso % (Auto) 1.0 % 04/12/24 20:30 Neut # (Auto) 4.43 K/uL (1.40-6.50) 04/12/24 20:30 Lymph # (Auto) 0.63 K/uL (1.20-3.40) L 04/12/24 20:30 [place] # (Auto) 0.47 K/uL (0.11-0.59) 04/12/24 20:30 Eos # (Auto) 0.23 K/uL (0.00-0.50) 04/12/24 20:30 Baso # (Auto) 0.06 K/uL (0.00-0.20) 04/12/24 20:30 Immature Gran # (Auto) 0.01 K/uL (0.01-0.20) 04/12/24 20:30 Sodium 138 mmol/L (136-145) 04/14/24 05:46 Potassium 4.4 mmol/L (3.5-5.1) 04/14/24 05:46 Chloride 98 mmol/L (98-107) 04/14/24 05:46 Carbon Dioxide 31 mmol/L (21-32) 04/14/24 05:46 Anion Gap 9 (3-11) 04/14/24 05:46 BUN 45 mg/dl (6-23) H 04/14/24 05:46 Creatinine 4.83 mg/dl (0.6-1.4) H* D 04/14/24 05:46 Est Cr Clr Drug Dosing 14.1 ml/min 04/14/24 05:46 Est GFR ( Amer) 12.5 ml/min 04/14/24 05:46 Est GFR (Non-Af Amer) 10.8 ml/min 04/14/24 05:46 BUN/Creatinine Ratio 9.3 (10-20) L 04/14/24 05:46 Glucose 76 mg/dl (70-99(Fasting)) 04/14/24 05:46 Lactate 1.5 mmol/L (0.4-2.0) 04/12/24 21:13 Calcium 8.8 mg/dl (8.6-10.3) 04/14/24 05:46 Total Bilirubin 0.6 mg/dl (0.2-1.0) 04/12/24 20:30 AST 23 U/L (13-39) 04/12/24 20:30 ALT 15 U/L (7-52) 04/12/24 20:30 Alkaline Phosphatase 123 U/L (34-104) H 04/12/24 20:30 Total Protein 6.7 gm/dl (6.0-8.3) 04/12/24 20:30 Albumin 3.9 gm/dl (3.4-5.0) 04/12/24 20:30 Globulin 2.8 gm/dl (2.5-4.0) 04/12/24 20:30 Albumin/Globulin Ratio 1.4 (0.9-2) 04/12/24 20:30 Lipase 45 U/L (11-82) 04/12/24 20:30 Urine Color Yellow 04/12/24 20:50 Urine Appearance Clear (Clear) 04/12/24 20:50 Urine pH >= 9.0 (4.5-7.5) H 04/12/24 20:50 Ur Specific [place] 1.008 (1.000-1.030) 04/12/24 20:50 Urine Protein 2+ (Negative) H 04/12/24 20:50 Urine Glucose (UA) Negative (Negative) 04/12/24 20:50 Urine Ketones Negative (Negative) 04/12/24 20:50 Urine Blood Trace (Negative) H 04/12/24 20:50 Urine Nitrite Negative (Negative) 04/12/24 20:50 Urine Bilirubin Negative (Negative) 04/12/24 20:50 Urine Urobilinogen Negative (Negative) 04/12/24 20:50 Ur Leukocyte Esterase 3+ (Negative) H 04/12/24 20:50 Urine WBC (Auto) >50 /hpf (0-5) H 04/12/24 20:50 Urine RBC (Auto) 0-2 /hpf (0-2) 04/12/24 20:50 U Hyaline Cast (Auto) 0-2 /lpf (0-2) 04/12/24 20:50 U Epithel Cells (Auto) 0-2 /hpf (0-2) 04/12/24 20:50 Urine Bacteria (Auto) 2+ (None Seen) H 04/12/24 20:50 Adenovirus (PCR) Not Detected (NotDetected) 04/12/24 23:56 B. pertussis DNA (PCR) Not Detected (NotDetected) 04/12/24 23:56 B.parapertussis DNA PCR Not Detected (NotDetected) 04/12/24 23:56 C. pneumoniae DNA (PCR) Not Detected (NotDetected) 04/12/24 23:56 Coronavirus OC43 (PCR) Not Detected (NotDetected) 04/12/24 23:56 Coronavirus HKU1 (PCR) Not Detected (NotDetected) 04/12/24 23:56 Coronavirus 229E (PCR) Not Detected (NotDetected) 04/12/24 23:56 SARS-CoV-2 (PCR) Not Detected (NotDetected) 04/12/24 23:56 Coronavirus NL63 (PCR) Not Detected (NotDetected) 04/12/24 23:56 Human Metapneumovir PCR Not Detected (NotDetected) 04/12/24 23:56 Influenza Type A (PCR) Not Detected (NotDetected) 04/12/24 23:56 Influenza Type B (PCR) Not Detected (NotDetected) 04/12/24 23:56 M. pneumoniae (PCR) Not Detected (NotDetected) 04/12/24 23:56 Parainfluenza 1 (PCR) Not Detected (NotDetected) 04/12/24 23:56 Parainfluenza 2 (PCR) Not Detected (NotDetected) 04/12/24 23:56 Parainfluenza 3 (PCR) Not Detected (NotDetected) 04/12/24 23:56 Parainfluenza 4 (PCR) Not Detected (NotDetected) 04/12/24 23:56 RSV (PCR) Not Detected (NotDetected) 04/12/24 23:56 Entero/Rhino (PCR) Not Detected (NotDetected) 04/12/24 23:56 Impressions Abdomen/Pelvis CT 04/12/24 21:24 Exam(s): CT ABDOMEN + PELVIS Without Contrast EXAM: CT Abdomen and Pelvis Without Intravenous Contrast CLINICAL HISTORY: Reason for exam: ostomy, stool in rectum, eval for fistula. TECHNIQUE: Axial computed tomography images of the abdomen and pelvis without intravenous contrast. CTDI is 22 mGy and DLP is 1114 mGy-cm. Automated exposure control was utilized for the study. A dose lowering technique was utilized adhering to the principles of ALARA. COMPARISON: CT abdomen/pelvis: 09/20/2022 FINDINGS: Diagnostic sensitivity of the exam is reduced by motion artifact. Lung bases: Trace/small bilateral pleural effusions and posteriorly basilar consolidative infiltrates, LT>RT increased since prior. Cardiomegaly. Median sternotomy. A mildly elevated left hemidiaphragm. ABDOMEN: Analysis of abdominal/pelvic viscera and vascular structures is limited in absence of IV contrast. Liver: Unremarkable. Gallbladder and bile ducts: Significantly distended gallbladder. No calcified stones. No ductal dilation. Pancreas: Unremarkable. Spleen: Unremarkable. Adrenals: Unremarkable. No mass. Kidneys and ureters: Moderate to severely atrophic kidneys. Exophytic small right renal cysts. No obstructing stones. No hydronephrosis. Stomach and bowel: Previous Kang-en-Y gastric bypass/bariatric surgery. Interval left lower quadrant loop ostomy. Normal caliber small and large bowel loops. Moderately large amount of formed stool is seen throughout the colon. An impacted inspissated fecal debris is seen in a mild/moderately distended rectosigmoid. Circumferential wall thickening of the rectum. No fistulous communication is evident. PELVIS: Evaluation of the pelvic viscera is hampered by extensive metallic beam hardening artifact from patient's bilateral hip replacement hardware. Appendix: No acute findings in the region of the appendix. Bladder: An empty urinary bladder with a Perry's catheter in situ. Heterogeneously dense abnormal wall thickening of the bladder, concerning for chronic cystitis. Reproductive: Grossly unremarkable as visualized. ABDOMEN and PELVIS: Intraperitoneal space: Unremarkable. No free air. No significant fluid collection. Bones/joints: Osteopenia. Mild/moderate lumbar levoscoliosis. Postsurgical spine with posterior fusion instrumentation from L3-L5 levels. Mild L2 vertebral retrolisthesis. No acute fracture. Mild/moderate thoracolumbar degenerative spondylitic changes. Lumbar facet osteoarthropathy. Total bilateral hip arthroplasty.. Soft tissues: Posteriorly inferior to the coccyx in the midline a moderately large size cutaneous/soft tissue ulceration again noted increased since prior comparison. Mild body wall soft tissue edema. Vasculature: Diffuse calcified atherosclerosis of the aortoiliac vasculature. Chronic infrarenal aortic dissection is again seen. 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 Lymph nodes: Unremarkable. No enlarged lymph nodes. 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 . IMPRESSION: Lung bases: Small bilateral pleural effusions, posteriorly basilar consolidative infiltrate/pneumonia LT>RT, increased since prior comparison. A significantly distended gallbladder. Clinical correlation is advised. Previous Kang-en-Y gastric bypass. Interval status post left lower quadrant loop ostomy. Moderately large amount of formed stool seen throughout the colon. An impacted/inspissated fecal debris is seen in a mild/moderately distended rectosigmoid. There is circumferential rectal wall thickening. Heterogeneously dense abnormal wall thickening of a decompressed urinary bladder, concerning for chronic cystitis. Again seen chronic infrarenal aortic dissection. Diffuse calcified atherosclerosis of the aortoiliac vasculature. 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 Posteriorly inferior to the coccyx in midline a moderately large size cutaneous/soft tissue ulceration again noted increased in size since comparison. . Electronically signed by: Trista Booker MD, DABR 04/12/24 23:24 PM Chest X-Ray 04/12/24 22:13 XR chest 1V portable HISTORY: 78 years-old Male weakness COMPARISON: 10/31/23 TECHNIQUE: AP view of the chest FINDINGS: Cardiac silhouette is enlarged. Median sternotomy. Atherosclerosis of the aorta. No pneumothorax or overt pulmonary edema. Mild subsegmental linear left basilar opacities. Bones appear grossly intact. Surgical clips project over the right axilla. IMPRESSION: 1. Cardiomegaly without overt pulmonary edema. 2. Subsegmental left basilar opacities favor atelectasis. Pneumonitis considered less likely. ACT 112: Negative or not required by law. The above report was generated using voice recognition software. It may contain grammatical, syntax or spelling errors. Electronically signed by: Stan Lui M.D. 04/13/2024 7:33 AM PG Care Time/CCT Total # of Minutes Spent Total Time Spent with Patient: Total time spent is greater than 50% in coordination of care (as documented) at patient's floor/unit and/or counseling patient: Coding Level of Care Code 32802 SUB INP/OBS CARE 3/50MIN Diagnoses ESRD (end stage renal disease) on dialysis N18.6; Z99.2 Altered bowel elimination due to intestinal ostomy K94.19 Sacral ulcer L98.429
--- NOTE | 2024-04-14 09:34 | Surgery Progress Note ---
<Statement entered by Louis Zhao DO - 04/14/24 09:35> I have discussed this patient with the surgical RISK AND COMPLIANCE ANALYTICS DIRECTOR and I agree with this plan. Date of Service April 14, 2024 Assessment & Plan (1) Altered bowel elimination due to intestinal ostomy: Plan: pt in dialysis seen at bedside reports continued stool per rectum discussed with patient this could be residual from surgery recommended to hospitalist that he could have enemas until stool runs clear wound care consult for sacral wound discussed with general surgery Mis , and they will reach out to hospitalist for further recommendations General surgery will sign off at this time , call with questions /concerns Admission and Anticipated Discharge Date Admission Date: April 13, 2024 Subjective pt reports continued stool from rectum concerned about wound infection Review of Systems Gastrointestinal: + change in bowel habits Physical Exam Gastrointestinal (Abdomen): Inspection/Auscultation: abdomen not distended colostomy Results & Data Vital Signs (Past 12 Hours) Vital Signs Temp Pulse Resp BP Pulse Ox O2 Del Method 04/14/24 07:47 97.9 F 75 18 150/83 H 96 Room Air PG Care Time/CCT Total # of Minutes Spent Total Time Spent with Patient: Total time spent is greater than 50% in coordination of care (as documented) at patient's floor/unit and/or counseling patient: Coding Level of Care Code 41812 SUB INP/OBS CARE 1/25MIN Diagnoses Altered bowel elimination due to intestinal ostomy K94.19
--- NOTE | 2024-04-14 14:07 | XRay Report ---
KUB HISTORY: Acute generalized abdominal pain stool impaction COMPARISON: CT 04/12/2024 FINDINGS: Cardiomegaly with median sternotomy. Upper abdominal surgical clips from gastric bypass. Mo derate colonic fecal retention. Nonobstructive bowel gas pattern. Left lower quadrant ostomy better s een on prior. Apparent contrast again noted within the rectum. A catheter projects over the midline p aiden. No renal calculi. No ureteral calculi. No pneumoperitoneum or pneumatosis. Lumbar spinal fusi on hardware noted along with bilateral hip arthroplasties. No fracture. IMPRESSION: 1. Nonobstructive bowel gas pattern. 2. Moderate colonic fecal retention. ACT 112: Negative or not required by law. The above report was generated using voice recognition software. It may contain grammatical, syntax o r spelling errors. Electronically signed by: Stan uLi M.D. 04/14/2024 2:06 PM
[2024-04-14] MEDS: DOCUSATE SODIUM 100 MG CAP PO ONE (16:17)
[2024-04-15 06:16] LABS: Hematocrit (blood only) 30.7 % (42.0-52.0); Hemoglobin 9.4 g/dl (14.0-18.0); Mean Corpuscular Hemoglobin 31.8 pg (25.0-34.0); Mean Corpuscular Hgb Conc 30.6 g/dL (32.0-36.0); Mean Corpuscular Volume 103.7 fL (80.0-100.0); Mean Platelet Volume 8.7 fL (9.4-12.4); Platelet Count 158 K/uL (130-400); RDW Coefficient of Variation 16.8 % (11.5-14.5); RDW Standard Deviation 64.1 fL (36.4-46.3); Red Blood Count 2.96 M/uL (4.70-6.10); White Blood Count 4.29 K/ul (4.8-10.8)
[2024-04-15 06:42] LABS: BUN Creatinine Ratio 7.7 (10-20); Calcium 8.8 mg/dl (8.6-10.3); Creatinine Clr Calc Pharmacy 19.3 ml/min; Est GFR (African American) 18.3 ml/min; Est GFR (Non-African American) 15.8 ml/min
--- NOTE | 2024-04-15 08:10 | Hospitalist Progress Note ---
Date of Service April 15, 2024 Assessment & Plan (1) Sacral ulcer: Plan: Pt is a 78 yo male with PMH of stage 4 sacral ulcer (s/p diverting colostomy for healing purposes), ESRD (dialysis MWF), HLD, L1/L2 spinal cord cyst, WEI, and paraplegia presenting d/t concern for stool in rectum. Sacral ulcer s/p diverting colostomy - per pt, stool coming from rectum which is new for him - CTAP 04/12 showed moderate amount of stool in colon with impacted fecal debris in the rectosigmoid - gen surg consulted; no surgical intervention recommended at this time- f/u outpatient with pt's surgeon (Dr. Hou) - KUB 04/14 showed moderate amount of stool in colon; trial of colace x1 resulted in large output through colostomy - pt has had significant decrease in amount stool per rectum; will attempt 1 more enema this AM and pending stool output, pt may be good for discharge later today Productive cough - pt originally treated for PNA upon admission with cefepime - pt w/o fevers or leukocytosis; clinically appearing well - CXR showing bilateral basilar opacities consistent with atelectasis - suspect atelectasis rather than true PNA; however, d/t prolonged symptoms of productive cough will treat with short course of renally- dosed augmentin (x3 days) - discussed deep breathing activities with pt including incentive spirometry ESRD - dialysis MWF - continue sevelamer - nephro consulted Afib - currently rate controlled NSR - continue metoprolol, eliquis Diet: heart healthy DVT ppx: eliquis 2.5mg BID Code: full Dispo: med/surg (2) ESRD (end stage renal disease) on dialysis: (3) Atrial fibrillation: (4) Hypertension: Admission and Anticipated Discharge Date Admission Date: April 13, 2024 Supervising Physician Co-Signing Physician Notes Attending Physician Supervision Note: I independently interviewed and examined the patient and verified the [place] history and physical, reviewed labs and image studies and agree with findings and care plan noted above. Stool in rectum - s/p diversion loop sigmoid colostomy (rectum is not closed and is connected to colon) to divert the stool for chronic sacral ulcer. -Evaluated by surgery - stool coming into rectum likely from high stool content across the colon. Recommended enema until stool clears. -continue enema. Sacral ulcer - wound care. Subjective Pt feeling well this morning. He notes his enema yesterday produced a tiny bit of stool. He notes his colostomy had a large output after taking the colace. Review of Systems Review of Systems: As per HPI Physical Exam Physical Exam: Constitutional: well appearing, no acute distress HEENT: normocephalic, no conjunctival injection CV: clinically well perfused Respiratory: no increased work of breathing Skin: warm, dry; hyperkeratotic scaling of bilateral legs noted Neuro: alert and oriented Psych: mood and affect congruent Resident Activity Tracking Resident Involvement: Resident Care Provided Care Provided: Adult Hospital Medicine (3) Atrial fibrillation Atrial fibrillation type: permanent Qualified Code(s): I48.2 - Chronic atrial fibrillation (4) Hypertension Hypertension type: essential hypertension Qualified Code(s): I10 - Essential (primary) hypertension
--- NOTE | 2024-04-15 08:49 | Nephrology Progress Note ---
Date of Service April 15, 2024 Assessment & Plan (1) ESRD (end stage renal disease) on dialysis: Plan: * Volume status and electrolyte balance are acceptable. No acute indication for HD at this time. Will plan next HD for am if patient is still hospitalized * Outpatient orders: MWF 3.25 hr 3K 2.5Ca Na 138 HCO3 37 F-180NR EDW 79.5 kg L arm AVF (2) Altered bowel elimination due to intestinal ostomy: Plan: * CT films and report reviewed * Surgery providing tap water enemas * Await further surgical input (3) Sacral ulcer: Plan: * 04/12/[address]: moderately large size cutaneous/soft tissue ulceration increased in size since comparison on 09/20/22. * technical staff assistant to roll patient per protocol to offload sacral pressure * Wound vac in place Admission and Anticipated Discharge Date Admission Date: April 13, 2024 Subjective Mr. Escobedo was evaluated in his hospital room this morning. He reports that he still requires tap water enemas to clean out the rectal pouch. He denies fever or abdominal pain. Review of Systems Constitutional: no fever Eyes: no problem reported Ear, Nose, Mouth, Throat: no problem reported Respiratory: no cough and no dyspnea Cardiovascular: no chest pain Gastrointestinal: + fecal incontinence (No ostomy output); no abdominal pain, no nausea and no vomiting Integumentary: no rash Physical Exam Constitutional: not in distress Eyes: PERRL, conjunctivae normal, anicteric sclerae ENMT: external ear and nose normal, oropharynx normal Neck: trachea midline, no thyromegaly Respiratory: normal respiratory effort, lungs clear to auscultation Cardiovascular: RRR, no murmur, no edema Gastrointestinal (Abdomen): normal bowel sounds, soft, nontender, no hepatosplenomegaly Skin: no rashes, warm and dry Neurologic: Speech / Cognition: normal speech and normal cognition Results & Data Vital Signs (Past 12 Hours) Vital Signs Temp Pulse Resp BP Pulse Ox O2 Del Method 04/15/24 08:33 36.4 C L 73 18 114/66 97 Room Air Laboratory Results Laboratory Results - last 24 hr 04/14/24 04/15/24 21:15 06:03 WBC 4.29 L RBC 2.96 L Hgb 9.4 L Hct 30.7 L MCV 103.7 H MCH 31.8 MCHC 30.6 L RDW Std Deviation 64.1 H RDW Coeff of Hector 16.8 H Plt Count 158 MPV 8.7 L Sodium 139 Potassium 4.0 Chloride 100 Carbon Dioxide 32 Anion Gap 7 BUN 27 H Creatinine 3.52 H D Est Cr Clr Drug Dosing 19.3 Est GFR ( Amer) 18.3 Est GFR (Non-Af Amer) 15.8 BUN/Creatinine Ratio 7.7 L Glucose 79 Calcium 8.8 Nasal Screen MRSA (PCR) Negative PG Care Time/CCT Total # of Minutes Spent Total Time Spent with Patient: Total time spent is greater than 50% in coordination of care (as documented) at patient's floor/unit and/or counseling patient: Coding Level of Care Code 63578 SUB INP/OBS CARE 3/50MIN Diagnoses ESRD (end stage renal disease) on dialysis N18.6; Z99.2 Altered bowel elimination due to intestinal ostomy K94.19 Sacral ulcer L98.429
[2024-04-16] MEDS ORDERED: SODIUM CHLORIDE 0.9% 1,000 ML IV PRN (07:00)
[2024-04-16 07:28] LABS: BUN Creatinine Ratio 8.4 (10-20); Calcium 8.5 mg/dl (8.6-10.3); Creatinine Clr Calc Pharmacy 15.9 ml/min; Est GFR (African American) 14.4 ml/min; Est GFR (Non-African American) 12.5 ml/min
--- NOTE | 2024-04-16 08:34 | Nephrology Progress Note ---
Date of Service April 16, 2024 Assessment & Plan (1) ESRD (end stage renal disease) on dialysis: Plan: * HD today according to outpatient prescription. Orders placed in EMR and HD RN notified * Outpatient orders: MWF 3.25 hr 3K 2.5Ca Na 138 HCO3 37 F-180NR EDW 79.5 kg L arm AVF (2) Altered bowel elimination due to intestinal ostomy: Plan: * CT films and report reviewed * Surgery providing tap water enemas * Await further surgical input (3) Sacral ulcer: Plan: * 04/12/[address]: moderately large size cutaneous/soft tissue ulceration increased in size since comparison on 09/20/22. * chief of staff doctor to roll patient per protocol to offload sacral pressure * Wound vac in place Admission and Anticipated Discharge Date Admission Date: April 13, 2024 Subjective Mr. Escobedo was evaluated in his hospital room this morning. He reports that he a tap water enema yesterday and the rectal pouch has cleared. He voices no new medical concerns. Review of Systems Constitutional: no fever Eyes: no problem reported Ear, Nose, Mouth, Throat: no problem reported Respiratory: no cough and no dyspnea Cardiovascular: no chest pain Gastrointestinal: + fecal incontinence (No ostomy output); no abdominal pain, no nausea and no vomiting Integumentary: no rash Physical Exam Constitutional: not in distress Eyes: PERRL, conjunctivae normal, anicteric sclerae ENMT: external ear and nose normal, oropharynx normal Neck: trachea midline, no thyromegaly Respiratory: normal respiratory effort, lungs clear to auscultation Cardiovascular: RRR, no murmur, no edema Gastrointestinal (Abdomen): normal bowel sounds, soft, nontender, no hepatosplenomegaly Skin: no rashes, warm and dry Neurologic: Speech / Cognition: normal speech and normal cognition Results & Data Vital Signs (Past 12 Hours) Vital Signs Temp Pulse Resp BP Pulse Ox O2 Del Method 04/16/24 07:46 37.0 C 63 16 131/76 95 Room Air Laboratory Results Laboratory Results - last 24 hr 04/16/24 06:34 Sodium 136 Potassium 4.0 Chloride 100 Carbon Dioxide 29 Anion Gap 7 BUN 36 H Creatinine 4.28 H D Est Cr Clr Drug Dosing 15.9 Est GFR ( Amer) 14.4 Est GFR (Non-Af Amer) 12.5 BUN/Creatinine Ratio 8.4 L Glucose 78 Calcium 8.5 L PG Care Time/CCT Total # of Minutes Spent Total Time Spent with Patient: Total time spent is greater than 50% in coordination of care (as documented) at patient's floor/unit and/or counseling patient: Coding Level of Care Code 59414 SUB INP/OBS CARE 3/50MIN Diagnoses ESRD (end stage renal disease) on dialysis N18.6; Z99.2 Altered bowel elimination due to intestinal ostomy K94.19 Sacral ulcer L98.429
[2024-04-16] MEDS: EPOETIN ALFA 10,000 UNITS/ML VIAL IV ONE (12:00)
--- NOTE | 2024-04-16 13:35 | Hospitalist Progress Note ---
Date of Service April 16, 2024 Assessment & Plan (1) Sacral ulcer: Plan: Pt is a 78 yo male with PMH of stage 4 sacral ulcer (s/p diverting colostomy for healing purposes), ESRD (dialysis MWF), HLD, L1/L2 spinal cord cyst, WEI, and paraplegia presenting d/t concern for stool in rectum. Sacral ulcer s/p diverting colostomy - per pt, stool coming from rectum which is new for him - CTAP 04/12 showed moderate amount of stool in colon with impacted fecal debris in the rectosigmoid - gen surg consulted; no surgical intervention recommended at this time- f/u outpatient with pt's surgeon (Dr. Hou) - KUB 04/14 showed moderate amount of stool in colon; trial of colace x1 resulted in large output through colostomy - Had a tap water enema yesterday - KUB today for stool burden assessment - Will repeat enema if still constipated - Plan for discharge when stools are clear Productive cough - pt originally treated for PNA upon admission with cefepime - pt w/o fevers or leukocytosis; clinically appearing well - CXR showing bilateral basilar opacities consistent with atelectasis - suspect atelectasis rather than true PNA; however, d/t prolonged symptoms of productive cough will treat with short course of renally- dosed Augmentin (x3 days). Last dose today - discussed deep breathing activities with pt including incentive spirometry ESRD - dialysis MWF - continue sevelamer - nephro consulted Afib - currently rate controlled NSR - continue metoprolol, eliquis Diet: heart healthy DVT ppx: eliquis 2.5mg BID Code: full Dispo: med/surg (2) ESRD (end stage renal disease) on dialysis: (3) Atrial fibrillation: (4) Hypertension: Admission and Anticipated Discharge Date Admission Date: April 13, 2024 Supervising Physician Co-Signing Physician Notes Attending Physician Supervision Note: I independently interviewed and examined the patient and verified the [place] history and physical, reviewed labs and image studies and agree with findings and care plan noted above. Stool in rectum - s/p diversion loop sigmoid colostomy (rectum is not closed and is connected to colon) to divert the stool for chronic sacral ulcer. -Evaluated by surgery - stool coming into rectum likely from high stool content across the colon. Recommended enema until stool clears. -KUB ordered today - still with moderate stool content. continue enema. Sacral ulcer stage IV POA - wound care. Subjective Guanaco seen this morning. Feeling well. He intaked increased output on the colostomy. Had not had any rectum stool per rectum today. Refers eating ok, no nausea Review of Systems Review of Systems: as per HPI Physical Exam Physical Exam: Constitutional: well appearing, no acute distress HEENT: normocephalic, no conjunctival injection CV: clinically well perfused Respiratory: no increased work of breathing Skin: warm, dry; hyperkeratotic scaling of bilateral legs noted Neuro: alert and oriented Psych: mood and affect congruent Results & Data Results & Data Vital Signs (Past 12 Hours) Vital Signs Temp Pulse Pulse Pulse Resp BP BP 04/16/24 12:50 36.6 C 81 126/84 04/16/24 12:23 93 H 136/85 04/16/24 12:00 68 112/76 04/16/24 11:30 88 121/75 04/16/24 11:00 75 120/79 04/16/24 10:30 68 109/73 04/16/24 10:00 57 L 106/68 04/16/24 09:30 77 106/72 04/16/24 09:08 62 118/72 04/16/24 09:00 36.6 C 79 04/16/24 08:00 04/16/24 07:46 37.0 C 63 16 131/76 Pulse Ox O2 Del Method 04/16/24 12:50 04/16/24 12:23 04/16/24 12:00 04/16/24 11:30 04/16/24 11:00 04/16/24 10:30 04/16/24 10:00 04/16/24 09:30 04/16/24 09:08 04/16/24 09:00 04/16/24 08:00 Room Air 04/16/24 07:46 95 Room Air Resident Activity Tracking Resident Involvement: Resident Care Provided Care Provided: Adult Hospital Medicine (3) Atrial fibrillation Atrial fibrillation type: permanent Qualified Code(s): I48.2 - Chronic atrial fibrillation (4) Hypertension Hypertension type: essential hypertension Qualified Code(s): I10 - Essential (primary) hypertension
--- NOTE | 2024-04-16 13:43 | XRay Report ---
KUB HISTORY: Stool burden COMPARISON: KUB 04/14/2024. FINDINGS: The bowel gas pattern is unremarkable. There are no dilated loops of small bowel to suggest an obstruction. No renal calculi. No ureteral calculi. No pneumoperitoneum or pneumatosis. Lumbar s dionicio fusion hardware and bilateral total hip arthroplasties are again noted. A catheter projects ove r the mid lower pelvis. There is a left lower quadrant ostomy again noted. Suture material and surgic al clips within the left upper quadrant. Moderate fecal retention, unchanged. Contrast again noted wi thin the rectum, unchanged. IMPRESSION: 1. Nonobstructive bowel gas pattern. 2. Moderate fecal retention, unchanged. ACT 112: Negative or not required by law. Electronically signed by: Victoriano Mcclain M.D. 04/16/2024 1:41 PM
[2024-04-17 06:42] LABS: BUN Creatinine Ratio 7.4 (10-20); Calcium 8.3 mg/dl (8.6-10.3); Creatinine Clr Calc Pharmacy 20.8 ml/min; Est GFR (African American) 20.1 ml/min; Est GFR (Non-African American) 17.3 ml/min
--- NOTE | 2024-04-17 11:31 | Hospitalist Progress Note ---
Date of Service April 17, 2024 Assessment & Plan (1) Sacral ulcer: Plan: Pt is a 78 yo male with PMH of stage 4 sacral ulcer (s/p diverting colostomy for healing purposes), ESRD (dialysis MWF), HLD, L1/L2 spinal cord cyst, WEI, and paraplegia presenting d/t concern for stool in rectum. Sacral ulcer s/p diverting colostomy - per pt, stool coming from rectum which is new for him - gen surg consulted; likely from stool burden. no surgical intervention recommended at this time- f/u outpatient with pt's surgeon (Dr. Hou) - KUB 04/14 showed moderate amount of stool in colon; trial of colace x1 and tap water enema resulted in large output through colostomy - KUB 04/16- moderate amount of stool, unchanged. - Will repeat enema and Colace today - Plan for discharge when stools are clear Productive cough - pt originally treated for PNA upon admission with cefepime - pt w/o fevers or leukocytosis; clinically appearing well - CXR showing bilateral basilar opacities consistent with atelectasis - suspect atelectasis rather than true PNA; however, d/t prolonged symptoms of productive cough will treat with short course of renally- dosed Augmentin (x3 days) - discussed deep breathing activities with pt including incentive spirometry ESRD - dialysis MWF - continue sevelamer - nephro consulted Afib - currently rate controlled NSR - continue metoprolol, eliquis Diet: heart healthy DVT ppx: eliquis 2.5mg BID Code: full Dispo: med/surg (2) ESRD (end stage renal disease) on dialysis: (3) Atrial fibrillation: (4) Hypertension: Admission and Anticipated Discharge Date Admission Date: April 13, 2024 Supervising Physician Co-Signing Physician Notes Attending Physician Supervision Note: I independently interviewed and examined the patient and verified the [place] history and physical, reviewed labs and image studies and agree with findings and care plan noted above. Stool in rectum - s/p diversion loop sigmoid colostomy (rectum is not closed and is connected to colon) to divert the stool for chronic sacral ulcer. -Evaluated by surgery - stool coming into rectum likely from high stool content across the colon. Recommended enema until stool runs clears. -continue enema until stool is clear liquid. Sacral ulcer stage IV POA - wound care. Subjective Guanaco seen this morning. Feeling well. The intake increased output on the c olostomy. Had not had any rectum stool per rectum today. Eating ok KUB with unchanged moderate constipation Review of Systems Review of Systems: as per HPI Physical Exam Physical Exam: Constitutional: well appearing, no acute distress HEENT: normocephalic, no conjunctival injection CV: clinically well perfused Respiratory: no increased work of breathing Skin: warm, dry; hyperkeratotic scaling of bilateral legs noted Neuro: alert and oriented Psych: mood and affect congruent Results & Data Results & Data Vital Signs (Past 12 Hours) Vital Signs Temp Pulse Resp BP Pulse Ox O2 Del Method 04/17/24 07:44 36.8 C 68 16 126/83 97 Room Air 04/16/24 23:43 36.7 C 75 16 132/82 95 Room Air Resident Activity Tracking Resident Involvement: Resident Care Provided Care Provided: Adult Hospital Medicine (3) Atrial fibrillation Atrial fibrillation type: permanent Qualified Code(s): I48.2 - Chronic atrial fibrillation (4) Hypertension Hypertension type: essential hypertension Qualified Code(s): I10 - Essential (primary) hypertension
--- NOTE | 2024-04-17 11:32 | Nephrology Progress Note ---
Date of Service April 17, 2024 Assessment & Plan (1) ESRD (end stage renal disease) on dialysis: (2) Anemia of chronic disease: (3) Colostomy in place: (4) Altered bowel elimination due to intestinal ostomy: (5) Sacral ulcer: (6) Pneumonia: (7) Acute hypoxemic respiratory failure: (8) Neurogenic bladder: (9) Hypertension: (10) Sacral decubitus ulcer, stage IV: (11) Generalized weakness: (12) Hypoxia: Plan 78-year-old gentleman with end-stage kidney disease on hemodialysis, Friday, history, Friday via left brachiocephalic AV fistula. 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 Admitted with constipation and now on bowel regimen. Had HD yesterday, clinically stable. Volume status acceptable. Blood pressure fair. -- Continue on Nephrocaps and phosphate binder -- Epogen with dialysis. -- Left arm nephrology precaution, dose medications for EGFR less than 10 Admission and Anticipated Discharge Date Admission Date: April 13, 2024 Marzena Phan was seen and evaluated this morning. He overall feels well, had dialysis yesterday. Blood pressure and volume status fair. Getting Colace for constipation. Review of Systems Review of Systems: All systems reviewed & are unremarkable except as noted in Subjective Physical Exam Constitutional: WD/WN, vitals as above no acute distress Eyes: + anicteric sclerae Respiratory: Auscultation: + diminished lung sounds Cardiovascular: Rate/Rhythm: regular rate and regular rhythm Heart Sounds: normal S1 and normal S2 Extremities: + AV fistula (left BC AVF with thrill and bruit); no edema Gastrointestinal (Abdomen): non tender, soft, ostomy in place Musculoskeletal: Extremities: extremities normal to inspection Skin: no rashes, warm and dry Neurologic: no focal motor deficits Psychiatric: Orientation: alert and oriented x 3 Affect: euthymic affect Genitourinary: Perry in place Results & Data Vital Signs (Past 12 Hours) Vital Signs Temp Pulse Resp BP Pulse Ox O2 Del Method 04/17/24 07:44 36.8 C 68 16 126/83 97 Room Air 04/16/24 23:43 36.7 C 75 16 132/82 95 Room Air PG Care Time/CCT Total # of Minutes Spent Total Time Spent with Patient: Total time spent is greater than 50% in coordination of care (as documented) at patient's floor/unit and/or counseling patient: Coding Level of Care Code 72778 SUB INP/OBS CARE 08/21MIN Diagnoses ESRD (end stage renal disease) on dialysis N18.6; Z99.2 Anemia of chronic disease D63.[address] Z93.3 Altered bowel elimination due to intestinal ostomy K94.19 Sacral ulcer L98.429 Pneumonia J18.9 Laterality: right Lung location: middle lobe of lung Pneumonia type: due to unspecified organism Acute hypoxemic respiratory failure J96.01 Neurogenic bladder N31.9 Essential hypertension I10 Hypertension type: essential hypertension Sacral decubitus ulcer, stage IV L89.154 Generalized weakness R53.1 Hypoxia R09.02 (6) Pneumonia Laterality: right Lung location: middle lobe of lung Pneumonia type: due to unspecified organism Qualified Code(s): J18.9 - Pneumonia, unspecified organism (9) Hypertension Hypertension type: essential hypertension Qualified Code(s): I10 - Essential (primary) hypertension
[2024-04-17] MEDS: DOCUSATE SODIUM 100 MG CAP PO ONE (12:12)
[2024-04-17] MEDS: ALPRAZolam 0.25 MG TABLET PO PRN (21:13)
[2024-04-18 06:29] LABS: Hematocrit (blood only) 28.4 % (42.0-52.0); Mean Corpuscular Hemoglobin 32.4 pg (25.0-34.0); Mean Corpuscular Hgb Conc 31.7 g/dL (32.0-36.0); Mean Corpuscular Volume 102.2 fL (80.0-100.0); Platelet Count 137 K/uL (130-400); RDW Coefficient of Variation 16.3 % (11.5-14.5); RDW Standard Deviation 61.5 fL (36.4-46.3); Red Blood Count 2.78 M/uL (4.70-6.10); White Blood Count 4.39 K/ul (4.8-10.8)
[2024-04-18 06:50] LABS: Albumin Level 3.2 gm/dl (3.4-5.0); BUN Creatinine Ratio 8.1 (10-20); Calcium 8.4 mg/dl (8.6-10.3); Creatinine Clr Calc Pharmacy 15.8 ml/min; Est GFR (African American) 14.4 ml/min; Est GFR (Non-African American) 12.4 ml/min; Potassium 4.2 mmol/L (3.5-5.1)
--- NOTE | 2024-04-18 09:28 | Hospitalist Progress Note ---
Date of Service April 18, 2024 Assessment & Plan (1) Sacral ulcer: Plan: Pt is a 78 yo male with PMH of stage 4 sacral ulcer (s/p diverting colostomy for healing purposes), ESRD (dialysis MWF), HLD, L1/L2 spinal cord cyst, WEI, and paraplegia presenting d/t concern for stool in rectum. Sacral ulcer s/p diverting colostomy - per pt, stool coming from rectum which is new for him - gen surg consulted; likely from stool burden. no surgical intervention recommended at this time- f/u outpatient with pt's surgeon (Dr. Hou) - KUB 04/14 showed moderate amount of stool in colon; trial of colace x1 and tap water enema resulted in large output through colostomy - KUB 04/16- moderate amount of stool, unchanged. - Enema yesterday with clear stools - continue Colace daily - Plan for discharge today, pending transport Productive cough - resolved - pt originally treated for PNA upon admission with cefepime - pt w/o fevers or leukocytosis; clinically appearing well - CXR showing bilateral basilar opacities consistent with atelectasis - s/p Augmentin (x3 days) - discussed deep breathing activities with pt including incentive spirometry ESRD - dialysis MWF - continue sevelamer - nephro consulted Afib - currently rate controlled NSR - continue metoprolol, eliquis Diet: heart healthy DVT ppx: eliquis 2.5mg BID Code: full Dispo: med/surg (2) ESRD (end stage renal disease) on dialysis: (3) Atrial fibrillation: (4) Hypertension: Admission and Anticipated Discharge Date Admission Date: April 13, 2024 Supervising Physician Co-Signing Physician Notes Attending Physician Supervision Note: I independently interviewed and examined the patient and verified the [place] history and physical, reviewed labs and image studies and agree with findings and care plan noted above. Stool in rectum - s/p diversion loop sigmoid colostomy (rectum is not closed and is connected to colon) to divert the stool for chronic sacral ulcer. -Evaluated by surgery - stool coming into rectum likely from high stool co ntent across the colon. Recommended enema until stool runs clears. -Stool cleared. Sacral ulcer stage IV POA - wound care. No transportation available today. Will be discharged tomorrow. Subjective See this morning. Refers clear stool with the enema yesterday. Good Ostomy output Review of Systems Review of Systems: as per HPI Physical Exam Physical Exam: Constitutional: well appearing, no acute distress HEENT: normocephalic, no conjunctival injection CV: clinically well perfused Respiratory: no increased work of breathing Skin: warm, dry; hyperkeratotic scaling of bilateral legs noted Neuro: alert and oriented Psych: mood and affect congruent Results & Data Results & Data Vital Signs (Past 12 Hours) Vital Signs Temp Pulse Resp BP Pulse Ox O2 Del Method 04/18/24 07:15 36.7 C 64 18 153/72 H 94 Room Air Resident Activity Tracking Resident Involvement: Resident Care Provided Care Provided: Adult Hospital Medicine (3) Atrial fibrillation Atrial fibrillation type: permanent Qualified Code(s): I48.2 - Chronic atrial fibrillation (4) Hypertension Hypertension type: essential hypertension Qualified Code(s): I10 - Essential (primary) hypertension
--- NOTE | 2024-04-18 10:10 | Nephrology Progress Note ---
Date of Service April 18, 2024 Assessment & Plan (1) ESRD (end stage renal disease) on dialysis: (2) Anemia of chronic disease: (3) Colostomy in place: (4) Altered bowel elimination due to intestinal ostomy: (5) Sacral ulcer: (6) Pneumonia: (7) Acute hypoxemic respiratory failure: (8) Neurogenic bladder: (9) Hypertension: (10) Sacral decubitus ulcer, stage IV: (11) Generalized weakness: (12) Hypoxia: Plan 78-year-old gentleman with end-stage kidney disease on hemodialysis, Friday, history, Friday via left brachiocephalic AV fistula. 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 Admitted with constipation and now on bowel regimen. Doing well, clinically stable. Volume status acceptable. Blood pressure fair. -- Plan for HD tomorrow -- Continue on Nephrocaps and phosphate binder -- Epogen 71365 units with dialysis tomorrow -- Left arm nephrology precaution, dose medications for EGFR less than 10 Admission and Anticipated Discharge Date Admission Date: April 13, 2024 Subjective Sylvester was seen and evaluated this morning. He overall feels well, denies any symptoms. Blood pressure and volume status fair. Electrolyte acceptable, hemoglobin stable. Review of Systems Review of Systems: All systems reviewed & are unremarkable except as noted in Subjective Physical Exam Constitutional: WD/WN, vitals as above no acute distress Respiratory: no respiratory distress Cardiovascular: Rate/Rhythm: regular rate and regular rhythm Heart Sounds: normal S1 and normal S2 Extremities: + AV fistula (left BC AVF with thrill and bruit); no edema Gastrointestinal (Abdomen): non tender, soft, ostomy in place Skin: no rashes, warm and dry Neurologic: no focal motor deficits Psychiatric: Orientation: alert and oriented x 3 Affect: euthymic affect Genitourinary: Perry in place Results & Data Vital Signs (Past 12 Hours) Vital Signs Temp Pulse Resp BP Pulse Ox O2 Del Method 04/18/24 07:15 36.7 C 64 18 153/72 H 94 Room Air PG Care Time/CCT Total # of Minutes Spent Total Time Spent with Patient: Total time spent is greater than 50% in coordination of care (as documented) at patient's floor/unit and/or counseling patient: Coding Level of Care Code 67891 SUB INP/OBS CARE 2MIN Diagnoses ESRD (end stage renal disease) on dialysis N18.6; Z99.2 Anemia of chronic disease D63.[address] Z93.3 Altered bowel elimination due to intestinal ostomy K94.19 Sacral ulcer L98.429 Pneumonia J18.9 Laterality: right Lung location: middle lobe of lung Pneumonia type: due to unspecified organism Acute hypoxemic respiratory failure J96.01 Neurogenic bladder N31.9 Essential hypertension I10 Hypertension type: essential hypertension Sacral decubitus ulcer, stage IV L89.154 Generalized weakness R53.1 Hypoxia R09.02 (6) Pneumonia Laterality: right Lung location: middle lobe of lung Pneumonia type: due to unspecified organism Qualified Code(s): J18.9 - Pneumonia, unspecified organism (9) Hypertension Hypertension type: essential hypertension Qualified Code(s): I10 - Essential (primary) hypertension
[2024-04-18] MEDS: DOCUSATE SODIUM 100 MG CAP PO PRN (12:19)
[2024-04-19 06:49] LABS: Albumin Level 3.2 gm/dl (3.4-5.0); BUN Creatinine Ratio 9.2 (10-20); Calcium 8.2 mg/dl (8.6-10.3); Creatinine Clr Calc Pharmacy 13.6 ml/min; Est GFR (African American) 11.9 ml/min; Est GFR (Non-African American) 10.3 ml/min; Phosphorus 4.7 mg/dl (2.5-4.9); Potassium 4.4 mmol/L (3.5-5.1)
[2024-04-19 07:29] VITALS: RESP 17
[2024-04-19] MEDS: NEPHROCAPS PO SCH (07:30)
--- NOTE | 2024-04-19 09:25 | Nephrology Progress Note ---
Date of Service April 19, 2024 Assessment & Plan (1) ESRD (end stage renal disease) on dialysis: (2) Anemia of chronic disease: (3) Hypertension: (4) Sacral decubitus ulcer, stage IV: Plan 78-year-old gentleman with end-stage kidney disease on hemodialysis, Friday, , Friday via left brachiocephalic AV fistula. 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 Admitted with constipation and now on bowel regimen. Doing well, clinically stable. Volume status acceptable. Blood pressure fair. -- tolerating HD -- Continue on Nephrocaps and phosphate binder -- Epogen 37193 units with dialysis -- Left arm nephrology precaution, dose medications for eGFR less than 10 Admission and Anticipated Discharge Date Admission Date: April 13, 2024 Subjective Sylvester was seen and evaluated during hemodialysis this morning, tolerating HD, IDWG reasonable. He overall feels well, denies any symptoms. Blood pressure and volume status fair. Electrolyte acceptable, hemoglobin stable. Review of Systems Review of Systems: All systems reviewed & are unremarkable except as noted in Subjective Physical Exam Constitutional: WD/WN, vitals as above no acute distress Respiratory: no respiratory distress Cardiovascular: Rate/Rhythm: regular rate and regular rhythm Heart Sounds: normal S1 and normal S2 Extremities: + AV fistula (left BC AVF with thrill and bruit); no edema Skin: no rashes, warm and dry Neurologic: no focal motor deficits Psychiatric: Orientation: alert and oriented x 3 Affect: euthymic affect Genitourinary: Perry in place Results & Data Vital Signs (Past 12 Hours) Vital Signs Temp Pulse Resp BP Pulse Ox O2 Del Method 04/19/24 07:35 Room Air 04/19/24 07:28 36.4 C L 58 L 17 152/79 H 95 Room Air PG Care Time/CCT Total # of Minutes Spent Total Time Spent with Patient: Total time spent is greater than 50% in coordination of care (as documented) at patient's floor/unit and/or counseling patient: Coding Level of Care Code 52829 SUB INP/OBS CARE 2/35MIN Diagnoses ESRD (end stage renal disease) on dialysis N18.6; Z99.2 Anemia of chronic disease D63.8 Essential hypertension I10 Hypertension type: essential hypertension Sacral decubitus ulcer, stage IV L89.154 (3) Hypertension Hypertension type: essential hypertension Qualified Code(s): I10 - Essential (primary) hypertension
[2024-04-19] MEDS: EPOETIN ALFA 10,000 UNITS/ML VIAL IV ONE (11:05)
--- NOTE | 2024-04-19 11:48 | Hospitalist Progress Note ---
Date of Service April 19, 2024 Assessment & Plan (1) Sacral ulcer: Plan: Pt is a 78 yo male with PMH of stage 4 sacral ulcer (s/p diverting colostomy for healing purposes), ESRD (dialysis MWF), HLD, L1/L2 spinal cord cyst, WEI, and paraplegia presenting d/t concern for stool in rectum. Sacral ulcer s/p diverting colostomy - per pt, stool coming from rectum which is new for him - gen surg consulted; likely from stool burden. no surgical intervention recommended at this time- f/u outpatient with pt's surgeon (Dr. Hou) - KUB 04/14 showed moderate amount of stool in colon; trial of colace x1 and tap water enema resulted in large output through colostomy - KUB 04/16- moderate amount of stool, unchanged. - Enema yesterday with clear stools - continue Colace daily - Plan for discharge today, pending transport Productive cough - resolved - pt originally treated for PNA upon admission with cefepime - pt w/o fevers or leukocytosis; clinically appearing well - CXR showing bilateral basilar opacities consistent with atelectasis - s/p Augmentin (x3 days) - discussed deep breathing activities with pt including incentive spirometry ESRD - dialysis MWF - continue sevelamer - nephro consulted Afib - currently rate controlled NSR - continue metoprolol, eliquis Diet: heart healthy DVT ppx: eliquis 2.5mg BID Code: full Dispo: med/surg (2) ESRD (end stage renal disease) on dialysis: (3) Atrial fibrillation: (4) Hypertension: Admission and Anticipated Discharge Date Admission Date: April 13, 2024 Results & Data Results & Data Vital Signs (Past 12 Hours) Vital Signs Temp Pulse Pulse Pulse Resp BP BP 04/19/24 11:00 67 127/73 04/19/24 10:30 64 133/71 04/19/24 10:00 52 L 119/78 04/19/24 09:30 66 132/88 04/19/24 09:27 53 L 133/79 04/19/24 09:18 36.5 C 68 04/19/24 07:35 04/19/24 07:28 36.4 C L 58 L 17 152/79 H Pulse Ox O2 Del Method 04/19/24 11:00 04/19/24 10:30 04/19/24 10:00 04/19/24 09:30 04/19/24 09:27 04/19/24 09:18 04/19/24 07:35 Room Air 04/19/24 07:28 95 Room Air (3) Atrial fibrillation Atrial fibrillation type: permanent Qualified Code(s): I48.2 - Chronic atrial fibrillation (4) Hypertension Hypertension type: essential hypertension Qualified Code(s): I10 - Essential (primary) hypertension
--- NOTE | 2024-04-19 12:35 | Discharge Summary ---
Date of Service April 19, 2024 Admission HPI Per Admitting Provider Guanaco Escobedo is a 78yo male with history of ESRD on HD q M/W/F, HTN, deconditioning/paraplegia for the last 3-4 years. 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 He had a diverting loop colostomy performed 10 months ago to assist with wound healing. He reports normal output from his colostomy bag - empties his bag 2-3 times/day. Last night he did have an explosive bowel movement from his anus. He reports no stool output from his anus since the placement of his loop colostomy. Additionally patient reports sacral pain at his ulcer site. He has had a wound vac in place - was due to be changed today. He reports no improvement in his ulcer. He has been seen by Infectious Disease team as well as Wound Care. Patient also reports some generalized weakness, malaise and cough. In the ER he is afebrile, HD stable and non-toxic in appearance. ER Course: Cefepime Vancomycin NSS Principal Diagnosis Constipation Discharge Exam Constitutional: well appearing, no acute distress HEENT: normocephalic, no conjunctival injection CV: clinically well perfused Respiratory: no increased work of breathing Skin: warm, dry; hyperkeratotic scaling of bilateral legs noted Neuro: alert and oriented Psych: mood and affect congruent Discharge Data Allergies Allergy/AdvReac Type Severity Reaction Status Date / Time tetracycline Allergy Intermediate HIVES Verified 04/14/24 08:47 NSAIDS (Non-Steroidal Allergy Unknown Unknown, Unverified 04/14/24 08:47 Anti-Inflamma on file w/ [facility] morphine AdvReac Intermediate Nausea Verified 04/14/24 08:47 Consultations 04/12/24 23:51 ED Decision to Admit Stat 04/13/24 00:01 Consult General Surgery Routine 04/13/24 00:38 Consult General Surgery Routine 04/13/24 11:35 Consult Nephrology Routine Ordered Studies 04/12/24 21:24 CT abd pelvis wo con Stat Hospital Course (1) Sacral ulcer: (2) ESRD (end stage renal disease) on dialysis: (3) Atrial fibrillation: (4) Hypertension: Plan Pt is a 78 yo male with PMH of stage 4 sacral ulcer (s/p diverting colostomy for healing purposes), ESRD (dialysis MWF), HLD, L1/L2 spinal cord cyst, WEI, and paraplegia presenting d/t concern for stool in rectum. Sacral ulcer s/p diverting colostomy - per pt, stool coming from rectum which is new for him - resolved after - gen surg consulted; likely from stool burden. no surgical intervention recommended at this time- f/u outpatient with pt's surgeon (Dr. Hou) - KUB 04/14 showed moderate amount of stool in colon; trial of colace x1 and tap water enema resulted in large output through colostomy - KUB 04/16- moderate amount of stool, unchanged. - Enema yesterday with clear stools - continue Colace daily Productive cough - resolved - pt originally treated for PNA upon admission with cefepime - pt w/o fevers or leukocytosis; clinically appearing well - CXR showing bilateral basilar opacities consistent with atelectasis - s/p Augmentin (x3 days) - discussed deep breathing activities with pt including incentive spirometry ESRD - dialysis MWF - continue sevelamer - nephro consulted Afib - currently rate controlled NSR - continue metoprolol, Eliquis Total Time Total Time Spent Total Time Spent (In Minutes): <30 Discharge Plan Discharge Items Patient Disposition: Home - Self-Care Reason For Visit: ? COLOSTOMY MALFUNCTION Discharge Diagnosis: fecal impaction, constipation Activity: Per Instructions section Non-emergency contact: Primary Care Provider and Surgeon Call non-emergency contact if: you have any medication questions and your symptoms worsen Follow-up/Referrals: Carrillo Hou MD [Physician] - 04/28/24 2:15 pm (f/u within week after discharge- stool from rectum. Please arrive for appointment 15 mins. early) Jasiel Pineda DO [Primary Care Provider] - 04/21/24 9:00 am Diet: Regular and Dialysis Renal Addtl Attending Provider Instructions: You were admitted to the hospital for stool output from your rectum. A CT scan of your abdomen showed a fecal impaction at the end of your colon/beginning of your rectum. You were treated with multiple enemas and laxatives to help empty both your colon (through your colostomy) and your rectum (through your anus). You noted significant decrease in stool output per your rectum/anus throughout your stay. A discharge summary will be sent to your primary care physician to ensure continuity of care. Please bring this discharge summary with you to your next office appointment so that your provider can review it at that time. Medications: Your medication list has been reviewed and reconciled upon discharge to ensure accuracy and continuity of care. An updated list of all your medications is included with your hospital discharge paperwork. Please review this list closely and make note of any changes to your medications. - You should continue to take laxatives (ie Colace) as needed as home to promote continued, regular output through your colostomy. The output through your rectum should continue to decrease/stop. - You were treated for a possible component of pneumonia while you were hospitalized with augmentin. However, as discussed in the hospital, your symptoms were probably less likely related to a bacterial infection and more likely related to a lack of deep breathing allowing the bottoms of your lung to not expand as much as usual and appear like pneumonia on a chest xray. Continue deep breathing exercises daily. Follow up appointments: - Make a follow up appointment with your PCP within the next week. It is very important that you follow up with them shortly after discharge from the hospital. - Keep all of your follow up appointments as already scheduled. If you cannot make an appointment, notify your provider. CONTACT YOUR PRIMARY CARE PROVIDER if you experience any of the following: - Difficulty following your treatment plan - Difficulty taking any of your medications CALL 911 OR GO TO THE EMERGENCY DEPARTMENT if you experience any of the following: - Sudden, severe abdominal pain or nausea/vomiting - Severe chest pain or chest pain that radiates to your jaw or arm - Sudden, severe shortness of breath or difficulty breathing Pending Studies at Discharge: No Stand-Alone Forms: My [facility], Smoking Cessation Medications and DC Order Prescriptions: Continued (DME) Power Wheelchair Device See Rx Instructions .Route Qty: 1 0RF Rx Instructions: POWER WHEELCHAIR, DX: R53.1, R26.2 (DME) Mattress (Air or other) Misc See Rx Instructions .Route Qty: 1 0RF Rx Instructions: alternating pressure mattress mirtazapine 7.5 mg tablet 7.5 mg PO DAILY Qty: 60 2RF Eliquis 2.5 mg tablet 2.5 mg PO BID Qty: 180 3RF Power wheelchair repair See Rx Instructions .ROUTE .COMPLEX Qty: 1 0RF Rx Instructions: power wheelchair needs repaired gabapentin 300 mg capsule 600 mg PO HS Qty: 180 5RF oxycodone-acetaminophen [Percocet] 5-325 mg tablet 1 tab PO Q6H PRN (Reason: pain) Qty: 30 0RF alprazolam 0.25 mg tablet 0.25 mg PO HS PRN (Reason: Anxiety/Panic attacks) Qty: 30 0RF cholecalciferol (vitamin D3) [Vitamin D3] 50 mcg (2,000 unit) Tablet 50 mcg PO QPM Rx Instructions: Unable to verify OTC meds at this date/time. sevelamer carbonate 800 mg tablet See Rx Instructions .ROUTE .COMPLEX Rx Instructions: Per spouse: Patient is taking 2400mg by mouth with each meal. However, MD called (Nancie Marker) and states pt should be taking 1600mg with each meal and 800mg with each snack. atorvastatin 20 mg tablet 0 mg PO DAILY Rx Instructions: Unable to verify w/ patient/pharmacy at this date/time. Original Directions: 20mg by mouth daily midodrine 5 mg tablet 5 mg PO [id number] Rx Instructions: 30 mins prior to Dialysis metoprolol succinate 25 mg tablet extended release 24 hr 0 mg PO DAILY Rx Instructions: Unable to verify w/ patient/pharmacy at this date/time. Original Directions: 25mg by mouth daily Triphrocaps 1 mg capsule 1 cap PO QAM Discharge Orders: Discharge Order (Routine); Ordered 04/19/24 Ordered By: Nolberto Peter Admission Data Admit Date/Time: 04/13/24 00:38 Attending Provider: Sunil Mendoza Admit Provider: Anne Melton Primary Care Provider: Jasiel Pineda Other Providers: Louis Zhao; Anne Melton; Carrillo Tony; [facility] Other Interventions: Discharge Summary Assessment (RN) Last Done: 04/19/24 12:43 Supervising Physician Co-Signing Physician Notes I personally examined the patient and verified all [place] points of history and exam, discussed case, and agree with decision making with Dr Bonifacio Peter feeling good and feels up to going home. Air Duct Mechanic input appreciated. Vitals noted, in general he is awake and alert pleasant no distress. HEENT normocephalic atraumatic mucous membranes moist. Breathing unlabored no accessory muscle use good effort. Skin without rashes pallor or icterus. Neuro without focal deficits. Constipation/rectal fecal outputnow improved. Would recommend a bowel regimen on dischargehe seems to be reticent to use much beyond what he is alr humberto taking. Close outpatient follow-up. Otherwise as above
[2024-04-19 14:00] VITALS: TEMP 97.9; O2SAT 98
[2024-04-19 15:28] VITALS: BP 138/78
[2024-04-19 15:31] VITALS: PULSE 64
--- NOTE | 2024-04-19 18:05 | Billing Data ---
Date of Service April 19, 2024 Coding Level of Care Code 55092 IN/OBS DISCH 30 MIN/LESS
--- NOTE | 2024-04-22 09:35 | Coding Query ---
Your help is needed for correct coding of this account; please clarify if the patients bowel movement from anus was: ( ) complication/ malfunction from loop colostomy surgery (x ) other please specify - overflow due to constipation ( ) unable to be determined Thank you Shantal RICHARDSON
== END 2024-04-19 15:06 | disposition home or self-care (01) | DRG 391 ==
LOC: ED 19:25 → SUATTDRO 04-13 00:38 → 3E 04-13 00:38

== ENCOUNTER 2024-04-25 14:17 | Inpatient (IN) ==
--- NOTE | 2024-04-25 14:52 | Emergency Department Note ---
Impression & Plan Weakness, Adenoviral infection, Anemia, Dialysis patient ED Provider Note NAME: JENNIFER STAPLETON AGE: 78 SEX: M : 1945 ARRIVES VIA: Ambulance INFORMANT: [Patient][] ED PROVIDER(S): [Kasi Mcrae MD] CHIEF COMPLAINT: Cough HISTORY OF PRESENT ILLNESS: The patient is a 78-year-old male who presents to the ER with several days of cough and increasing weakness. His cough is productive. There has been no fever. The patient was discharged from our hospital 6 days ago, he was having some congestion then but, he was not felt to have pneumonia. He was in the hospital primarily for constipation issues. The patient has chronic weakness secondary to compression on his lumbar spine. His typically is able to help him transfer. He has become so weak that he can no longer support himself and she is concerned because usually, infection is the cause of his increasing weakness. The patient states his colostomy is functioning well, his urine has looked typical in the Perry bag. He has not had rash. The patient does attend dialysis Friday and Friday, his next dialysis is tomorrow. PMHx/PSHx/Social Hx: See Below PHYSICAL EXAM: GENERAL: Patient is in no acute distress. HEENT: No acute trauma, normocephalic atraumatic, mucous membranes dry, no nasal congestion. NECK: No stridor, no adenopathy, no meningismus, trachea is midline. LUNGS: Clear to auscultation bilaterally when listening anterior, no wheeze, no rhonchi, breath sounds equal. HEART: 3/6 systolic murmur, irregular rhythm, normal rate. ABDOMEN: Soft, nontender, no peritonitis. Colostomy on the left with some stool in the colostomy bag. Perry catheter noted. EXTREMITIES: No cyanosis, full range of motion of all the joints without pain or difficulty. NEUROLOGIC: Oriented x 3, no speech slur, excellent historian. Able to move all extremities SKIN: No jaundice, no diaphoresis. DIFFERENTIAL DIAGNOSIS: Dehydration, pneumonia, viral illness, UTI, bacteremia, electrolyte imbalance, among others. EMERGENCY DEPARTMENT PROCEDURES: MEDICAL DECISION MAKING: There is no leukocytosis. The patient is anemic however, this appears to be a chronic issue. There is a normal platelet count. There is evidence for a high creatinine, this is consistent with his dialysis need. No electrolyte abnormality in need of emergent correction. No concerning liver enzyme elevation. The patient appears to be in a euthyroid state. Lactic acid level is not elevated making severe sepsis less likely. Urinalysis suggests potential infection versus changes from his chronic Perry catheter. Respiratory bio fire was positive for adenovirus. Chest x-ray did not show any focal pneumonia, some mild fluid overload was suspected. No pneumothorax. On exam, the patient appeared somewhat dehydrated. He was not toxic. Patient was given a DuoNeb. He was not given IV fluids as he was due for dialysis tomorrow. The patient presents with increasing weakness and cough. He appears to have adenovirus as the cause for his cough and I expect also his increasing weakness. Given his inability to care for himself in his current situation, hospitalization is indicated. I spoke with the patient and his family, I spoke with case management, the on- call hospitalist was consulted. Of note, a CT of the chest was ordered, this was done to help with finding potential pneumonia not seen on chest x-ray, this result is pending. Prior/Outside records/notes reviewed: Discharge summary note from 04/19/2024 describing his presentation, hospital care and plan at discharge. ECG per my interpretation: Indication was weakness. The ECG shows atrial fibrillation with a rate of 73. There is some nonspecific ST change. There is no acute ST elevation. There are no PVCs. The QTc is 460. Continuous Cardiac Monitoring per my interpretation: An order was placed for continuous cardiac monitoring. The monitor shows a rate of 75 with atrial fibrillation. Imaging/x-ray results per my interpretation: Chest x-ray does not show concerning CHF, pneumonia or pneumothorax. Chronic Medical/Social conditions affecting care: Advanced age, chronic Perry catheter, colostomy. Recent hospitalization. Care/Management discussed with: Case management, the on-call hospitalist. Level of care consideration(s): After review of the information above and other included data: --I believe the patient requires escalation of care to admission DISPOSITION: Admission Past Med/Surg History Problem List (Updated 04/25/24 @ 18:10 by Kasi Mcrae MD) Dialysis patient (Acute) Anemia (Acute) Adenoviral infection (Acute) Weakness (Acute) Adenovirus infection Colostomy in place Laparoscopic loop sigmoid colostomy by Dr. Yaquelin Hou for sacral ulcer healing Altered bowel elimination due to intestinal ostomy (Acute) Sacral ulcer Insomnia MDD (major depressive disorder), single episode, mild CKD (chronic kidney disease) (Acute) Pneumonia (Acute) Acute hypoxemic respiratory failure (Acute) Hypoxia (Acute) ESRD (end stage renal disease) on dialysis (Acute) Anemia of chronic disease Elevated troponin Wheelchair dependent Abnormal computed tomography of lung 08/05/23 - Wedge shaped consolidation of lung. No signs of PNA on exam. Recommend 3 month f/u CT ordered. Neurogenic bowel (Chronic) Sleep apnea Neurogenic bladder Generalized osteoarthritis Neurogenic claudication due to lumbar spinal stenosis Lower extremity edema Inability to walk Lymphedema Central venous catheter in place MRSA (methicillin resistant staph aureus) culture positive Hypertension Atrial fibrillation Follows with [facility] cardiology (Dr. Jarvis) On Eliquis Abdominal aortic aneurysm (~2014) S/p Type A dissection with emergent repair in 2014 - Follows with vascular - last seen 11/2022- AAA 3.3cm, iliac artery aneursym (right 2.0cm and left 3.0 cm)- all stable in size; chronic thoracic aortic dissection- stable- vascular recommended repeating imaging May 2024 ESRD (end stage renal disease) on dialysis [facility] in [place] Fri-Fri-Fri Sacral decubitus ulcer, stage IV (Acute) "stable to improved" per [place] wound clinic>W[facility] WEEKLY AND [facility] 2X PER WEEK. patient's changes dressing as instructed at home. Neuropathic pain Hyperlipidemia Anemia due to chronic kidney disease Anxiety Medical History Encounter for pre-operative examination Lobar pneumonia 08/2022 treated at [facility] inpatient. 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 Shrestha at [facility]>WC BOUND FOR 3 YEARS D/T CYSTS. inhibiting patient to ambulate. 04/25/23: awaiting for surgery to remove the spinal cyst but will need his ulcer wound repaired and healed fully first --> reason for upcoming colostomy. History of CHF (congestive heart failure) Impotence, organic Sleep apnea CPAP PTSD (post-traumatic stress disorder) POST AORTIC DISSECTION Neurogenic bladder Self Catheterization since Aortic repair 4-5X PER DAY Lumbar spinal stenosis Surgical History History of removal of tunneled central venous catheter (CVC) with port removal of perm cath 05/[address] Marroquin S/P arteriovenous (AV) fistula creation left S/P debridement (02/08/22) Sacral Wound Debridment, Sacral bone biopsy(Not Applicable) - Jose Le, DO S/P debridement (06/27/21) Excisional Debridement Sacral Decubitus Ulcer down to muscle level 4cm x 6cm - Ranjeet Myers, DO 06/27/2021 Excisional Debridement of Sacral Decubitus Ulcer Down to Bone, 11cm x 10cm(Not Applicable) - Ranjeet Myers, DO 07/25/2021: MAC 3, ETT 7.5. History of revision of total hip arthroplasty History of arthroplasty of left hip S/P total right hip arthroplasty History of cardioversion mult>FOLLOWS WITH DR. JARVIS History of lumbar fusion History of bladder surgery History of transurethral resection of prostate Nausea and vomiting after administration of anesthetic agent History of arthroscopy RT KNEE History of open reduction and internal fixation (ORIF) procedure RT WRIST History of total knee replacement RT History of esophagogastroduodenoscopy (EGD) History of colonoscopy History of tooth extraction History of rhinoplasty History of cataract surgery RT/LEFT 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 2015 Did have thoracic bleeding post op- required re exploration approx 1 week after initial presentation- had ARF, spinal cord ischemia resulting in paraplegia, neurogenic bladder and neurogenic bowel. History of gastric bypass 2010 History of cardiac catheterization 2003 - no stents - [facility] in [place] Family History Grandmother Family history of diabetes mellitus Mother Gallbladder disease Father Prostate cancer Myocardial infarction Hypertension Other Family history non-contributory No family history of adverse response to anesthesia Denies family history of Ovarian cancer Breast cancer Colorectal cancer Social History Smoking Status: Never smoker Second Hand Exposure: No; Do You Dip or Chew Tobacco: No; Hx Alcohol Use: No Hx Substance Use: No Preferred Language: Monegasque Communication Ability: Effective Visual Impairment: Limited Hearing Ability: Normal Merchandise Manager Required: No Beliefs That Will Affect Care: None marital status: Current Living Situation: Spouse Current Living Situation Comment: home wiith current occupational status: retired How many Children do You have: 1 Feels Safe at Home: Yes Childhood Exposure to Second-Hand Smoke: Yes (father did ) Diet: regular Diet Comment: low sugar, low phospate caffeine: Yes (tea) during the past year weight has: remained stable Dental Care, Regularly: Yes Physical Activity Frequency: Does not Exercise Physical Activity Frequency Comment: goes to PT twice a week Seatbelt Use: always Sunscreen Use: Yes Do you think of yourself as: straight/heterosexual Gender Identity: Male Assistive Devices: Hospital Bed and Scooter/Electric Scooter Allergies Allergies Allergy/AdvReac Type Severity Reaction Status Date / Time tetracycline Allergy Intermediate HIVES Verified 04/25/24 15:40 NSAIDS (Non-Steroidal Allergy Unknown Unknown, Unverified 04/25/24 15:40 Anti-Inflamma on file w/ [facility] morphine AdvReac Intermediate Nausea Verified 04/25/24 15:40 Home Meds Home Medications Medication Instructions Recorded Confirmed cholecalciferol (vitamin D3) 50 50 mcg PO QPM 12/31/19 04/25/24 mcg (2,000 unit) tablet (Vitamin D3) sevelamer carbonate 800 mg tablet See Rx Instructions .Route .COMPLEX 09/20/22 04/25/24 atorvastatin 20 mg tablet 20 mg PO DAILY 04/14/24 04/25/24 metoprolol succinate 25 mg 25 mg PO QAM 04/14/24 04/25/24 tablet,extended release 24 hr midodrine 5 mg tablet 5 mg PO 3XWK 04/14/24 04/25/24 vitamin B complex and vitamin C 1 cap PO QAM 04/14/24 04/25/24 no.20-folic acid 1 mg capsule (Triphrocaps) Previous Rx's Medication Instructions Recorded Wheelchair (Powered) (Power #1 ea 01/04/22 Wheelchair) alprazolam 0.25 mg tablet 0.25 mg PO HS PRN Anxiety/Panic 10/09/23 attacks #30 tabs Mattress (Air or other) #1 ea 10/21/23 mirtazapine 7.5 mg tablet 7.5 mg PO DAILY #60 tabs 01/26/24 apixaban 2.5 mg tablet (Eliquis) 2.5 mg PO BID #180 tabs 02/03/24 gabapentin 300 mg capsule 600 mg (2 x 300 mg) PO HS #180 caps 03/05/24 oxycodone-acetaminophen 5 mg-325 1 tab PO Q6H PRN pain #30 tabs 04/22/24 mg tablet (Percocet) Results & Data (ED) Vital Signs Vital Signs - 24 hr 04/25/24 14:37 04/25/24 15:40 04/25/24 17:13 Temperature 36.9 C Temperature Source Oral Pulse Rate 61 65 Pulse Rate [Apical] 78 Respiratory Rate 18 18 Respiratory Effort / Characteristics Non-Labored Spontaneous Respiratory Depth Normal Blood Pressure 124/75 Blood Pressure [Right Arm] 130/77 Blood Pressure Mean 91 Blood Pressure Mean [Right Arm] 94 Blood Pressure Position Lying Pulse Oximetry 94 93 Oxygen Delivery Method Room Air Room Air Sepsis Recent Fever Within 48 Hours No Sepsis New/Unexplained Change in Mental Status No Sepsis Action Taken by Nursing No Action Required Home Medications Current Medication List: was personally reviewed by me Laboratory Data Attestation: I reviewed the patient's lab results. 04/25/24 14:46 04/25/24 14:46 Lab Results 04/25/24 04/25/24 04/25/24 Range/Units 14:46 15:41 17:15 WBC 4.68 L (4.8-10.8) K/ul RBC 2.81 L (4.70-6.10) M/uL Hgb 9.0 L (14.0-18.0) g/dl Hct 30.1 L (42.0-52.0) % MCV 107.1 H (80.0-100.0) fL MCH 32.0 (25.0-34.0) pg MCHC 29.9 L (32.0-36.0) g/dL RDW Std Deviation 69.0 H (36.4-46.3) fL RDW Coeff of Hector 17.5 H (11.5-14.5) % Plt Count 143 (130-400) K/uL MPV 8.9 L (9.4-12.4) fL Immature Gran % (Auto) 0.2 % Neut % (Auto) 68.8 % Lymph % (Auto) 10.9 % [place] % (Auto) 11.1 % Eos % (Auto) 8.1 % Baso % (Auto) 0.9 % Neut # (Auto) 3.22 (1.40-6.50) K/uL Lymph # (Auto) 0.51 L (1.20-3.40) K/uL [place] # (Auto) 0.52 (0.11-0.59) K/uL Eos # (Auto) 0.38 (0.00-0.50) K/uL Baso # (Auto) 0.04 (0.00-0.20) K/uL Immature Gran # (Auto) 0.01 (0.01-0.20) K/uL Sodium 136 (136-145) mmol/L Potassium 4.3 (3.5-5.1) mmol/L Chloride 96 L (98-107) mmol/L Carbon Dioxide 30 (21-32) mmol/L Anion Gap 10 (3-11) BUN 53 H (6-23) mg/dl Creatinine 4.94 H* (0.6-1.4) mg/dl Est Cr Clr Drug Dosing 13.7 ml/min Est GFR ( Amer) 12.1 ml/min Est GFR (Non-Af Amer) 10.5 ml/min BUN/Creatinine Ratio 10.7 (10-20) Glucose 112 H (70-99(Fasting)) mg/dl Lactate 1.0 (0.4-2.0) mmol/L Calcium 8.7 (8.6-10.3) mg/dl Magnesium 2.4 (1.7-2.4) mg/dl Total Bilirubin 0.6 (0.2-1.0) mg/dl AST 14 (13-39) U/L ALT 14 (7-52) U/L Alkaline Phosphatase 109 H (34-104) U/L Troponin I High Sens 17.3 (0-20) pg/ml Total Protein 5.6 L (6.0-8.3) gm/dl Albumin 3.3 L (3.4-5.0) gm/dl Globulin 2.3 L (2.5-4.0) gm/dl Albumin/Globulin Ratio 1.4 (0.9-2) TSH 2.429 (0.300-4.500) uIu/ml Urine Color Yellow Urine Appearance Clear (Clear) Urine pH >= 9.0 H (4.5-7.5) Ur Specific [place] 1.009 (1.000-1.030) Urine Protein 2+ H (Negative) Urine Glucose (UA) Negative (Negative) Urine Ketones Negative (Negative) Urine Blood Negative (Negative) Urine Nitrite Negative (Negative) Urine Bilirubin Negative (Negative) Urine Urobilinogen Negative (Negative) Ur Leukocyte Esterase 3+ H (Negative) Urine WBC (Auto) 21-50 H (0-5) /hpf Urine RBC (Auto) 0-2 (0-2) /hpf U Hyaline Cast (Auto) 0-2 (0-2) /lpf U Epithel Cells (Auto) 0-2 (0-2) /hpf Urine Bacteria (Auto) 1+ H (None Seen) Adenovirus (PCR) (NotDetected) B. pertussis DNA (PCR) (NotDetected) B.parapertussis DNA PCR (NotDetected) C. pneumoniae DNA (PCR) (NotDetected) Coronavirus OC43 (PCR) (NotDetected) Coronavirus HKU1 (PCR) (NotDetected) Coronavirus 229E (PCR) (NotDetected) SARS-CoV-2 (PCR) (NotDetected) Coronavirus NL63 (PCR) (NotDetected) Human Metapneumovir PCR (NotDetected) Influenza Type A (PCR) (NotDetected) Influenza Type B (PCR) (NotDetected) M. pneumoniae (PCR) (NotDetected) Parainfluenza 1 (PCR) (NotDetected) Parainfluenza 2 (PCR) (NotDetected) Parainfluenza 3 (PCR) (NotDetected) Parainfluenza 4 (PCR) (NotDetected) RSV (PCR) (NotDetected) Entero/Rhino (PCR) (NotDetected) 04/25/24 Range/Units Unknown WBC (4.8-10.8) K/ul RBC (4.70-6.10) M/uL Hgb (14.0-18.0) g/dl Hct (42.0-52.0) % MCV (80.0-100.0) fL MCH (25.0-34.0) pg MCHC (32.0-36.0) g/dL RDW Std Deviation (36.4-46.3) fL RDW Coeff of Hector (11.5-14.5) % Plt Count (130-400) K/uL MPV (9.4-12.4) fL Immature Gran % (Auto) % Neut % (Auto) % Lymph % (Auto) % [place] % (Auto) % Eos % (Auto) % Baso % (Auto) % Neut # (Auto) (1.40-6.50) K/uL Lymph # (Auto) (1.20-3.40) K/uL [place] # (Auto) (0.11-0.59) K/uL Eos # (Auto) (0.00-0.50) K/uL Baso # (Auto) (0.00-0.20) K/uL Immature Gran # (Auto) (0.01-0.20) K/uL Sodium (136-145) mmol/L Potassium (3.5-5.1) mmol/L Chloride (98-107) mmol/L Carbon Dioxide (21-32) mmol/L Anion Gap (3-11) BUN (6-23) mg/dl Creatinine (0.6-1.4) mg/dl Est Cr Clr Drug Dosing ml/min Est GFR ( Amer) ml/min Est GFR (Non-Af Amer) ml/min BUN/Creatinine Ratio (10-20) Glucose (70-99(Fasting)) mg/dl Lactate (0.4-2.0) mmol/L Calcium (8.6-10.3) mg/dl Magnesium (1.7-2.4) mg/dl Total Bilirubin (0.2-1.0) mg/dl AST (13-39) U/L ALT (7-52) U/L Alkaline Phosphatase (34-104) U/L Troponin I High Sens (0-20) pg/ml Total Protein (6.0-8.3) gm/dl Albumin (3.4-5.0) gm/dl Globulin (2.5-4.0) gm/dl Albumin/Globulin Ratio (0.9-2) TSH (0.300-4.500) uIu/ml Urine Color Urine Appearance (Clear) Urine pH (4.5-7.5) Ur Specific [place] (1.000-1.030) Urine Protein (Negative) Urine Glucose (UA) (Negative) Urine Ketones (Negative) Urine Blood (Negative) Urine Nitrite (Negative) Urine Bilirubin (Negative) Urine Urobilinogen (Negative) Ur Leukocyte Esterase (Negative) Urine WBC (Auto) (0-5) /hpf Urine RBC (Auto) (0-2) /hpf U Hyaline Cast (Auto) (0-2) /lpf U Epithel Cells (Auto) (0-2) /hpf Urine Bacteria (Auto) (None Seen) Adenovirus (PCR) DETECTED A (NotDetected) B. pertussis DNA (PCR) Not Detected (NotDetected) B.parapertussis DNA PCR Not Detected (NotDetected) C. pneumoniae DNA (PCR) Not Detected (NotDetected) Coronavirus OC43 (PCR) Not Detected (NotDetected) Coronavirus HKU1 (PCR) Not Detected (NotDetected) Coronavirus 229E (PCR) Not Detected (NotDetected) SARS-CoV-2 (PCR) Not Detected (NotDetected) Coronavirus NL63 (PCR) Not Detected (NotDetected) Human Metapneumovir PCR Not Detected (NotDetected) Influenza Type A (PCR) Not Detected (NotDetected) Influenza Type B (PCR) Not Detected (NotDetected) M. pneumoniae (PCR) Not Detected (NotDetected) Parainfluenza 1 (PCR) Not Detected (NotDetected) Parainfluenza 2 (PCR) Not Detected (NotDetected) Parainfluenza 3 (PCR) Not Detected (NotDetected) Parainfluenza 4 (PCR) Not Detected (NotDetected) RSV (PCR) Not Detected (NotDetected) Entero/Rhino (PCR) Not Detected (NotDetected) Administered Medications Discontinued Medications Albuterol (Albut/Ipratrop 3mg/0.5mg Neb 3 Ml Vial) 3 ml NEB NOW STA; Protocol Stop: 04/25/24 14:47 Last Admin: 04/25/24 16:04 Dose: 3 ml Documented By: BLANE Imaging Data Radiologist's Impression: Chest X-Ray 04/25/24 14:46 SINGLE VIEW CHEST CLINICAL HISTORY: Generalized weakness. FINDINGS: 2 AP, portable, upright chest radiographs are compared to study dated 04/12/2024. Correlation is made with chest CT dated 12/02/2023. The patient is status post midline sternotomy. The heart is markedly enlarged noting atherosclerotic calcification of the thoracic aorta. There is pulmonary vascular congestion. Atelectasis is noted at both lung bases. No airspace consolidation or large pleural effusion is identified. No pneumothorax is seen. The skeletal structures are osteopenic. The bony thorax is grossly intact. Surgical clips project over the right shoulder. IMPRESSION: Cardiomegaly with evidence of congestive failure. ACT 112: Negative or not required by law. Electronically signed by: Kasi Dai M.D. 04/25/2024 3:28 PM Discharge Plan Visit Data Chief Complaint: Cough ED Provider: Kasi Mcrae Discharge Problem: Weakness, Adenoviral infection, Anemia, Dialysis patient Patient Disposition: Admitted As Inpatient Condition: Fair Forms Stand Alone Forms: [facility], Important Visit Information Prescriptions Prescriptions: No Action (DME) Power Wheelchair Device See Rx Instructions .Route Qty: 1 0RF Rx Instructions: POWER WHEELCHAIR, DX: R53.1, R26.2 (DME) Mattress (Air or other) Misc See Rx Instructions .Route Qty: 1 0RF Rx Instructions: alternating pressure mattress mirtazapine 7.5 mg tablet 7.5 mg PO DAILY Qty: 60 2RF Eliquis 2.5 mg tablet 2.5 mg PO BID Qty: 180 3RF gabapentin 300 mg capsule 600 mg PO HS Qty: 180 5RF oxycodone-acetaminophen [Percocet] 5-325 mg tablet 1 tab PO Q6H PRN (Reason: pain) Qty: 30 0RF alprazolam 0.25 mg tablet 0.25 mg PO HS PRN (Reason: Anxiety/Panic attacks) Qty: 30 0RF cholecalciferol (vitamin D3) [Vitamin D3] 50 mcg (2,000 unit) Tablet 50 mcg PO QPM sevelamer carbonate 800 mg tablet See Rx Instructions .ROUTE .COMPLEX Rx Instructions: Per spouse: Patient is taking 2400mg by mouth with each meal. However, called (Nancie Marker) and states pt should be taking 1600mg with each meal and 800mg with each snack. atorvastatin 20 mg tablet 20 mg PO DAILY midodrine 5 mg tablet 5 mg PO 3XWK Rx Instructions: 30 mins prior to Dialysis metoprolol succinate 25 mg tablet extended release 24 hr 25 mg PO QAM Triphrocaps 1 mg capsule 1 cap PO QAM Referrals Referrals: Jasiel Pineda DO [Primary Care Provider] - Discharge Problem: Anemia Qualifiers: Anemia type: unspecified type Qualified Code(s): D64.9 - Anemia, unspecified
[2024-04-25 15:04] LABS: Basophils # (auto) 0.04 K/uL (0.00-0.20); Basophils % (auto) 0.9 %; Eosinophils # (auto) 0.38 K/uL (0.00-0.50); Eosinophils % (auto) 8.1 %; Hematocrit (blood only) 30.1 % (42.0-52.0); Immature Granulocytes # (auto) 0.01 K/uL (0.01-0.20); Immature Granulocytes % (auto) 0.2 %; Lymphocytes # (auto) 0.51 K/uL (1.20-3.40); Lymphocytes % (auto) 10.9 %; Mean Corpuscular Hgb Conc 29.9 g/dL (32.0-36.0); Mean Corpuscular Volume 107.1 fL (80.0-100.0); Mean Platelet Volume 8.9 fL (9.4-12.4); Monocytes # (auto) 0.52 K/uL (0.11-0.59); Monocytes % (auto) 11.1 %; Neutrophils # (auto) 3.22 K/uL (1.40-6.50); Neutrophils % (auto) 68.8 %; Platelet Count 143 K/uL (130-400); RDW Coefficient of Variation 17.5 % (11.5-14.5); Red Blood Count 2.81 M/uL (4.70-6.10); White Blood Count 4.68 K/ul (4.8-10.8)
[2024-04-25 15:23] LABS: Albumin Globulin Ratio 1.4 (0.9-2); Albumin Level 3.3 gm/dl (3.4-5.0); BUN Creatinine Ratio 10.7 (10-20); Bilirubin,Total 0.6 mg/dl (0.2-1.0); Calcium 8.7 mg/dl (8.6-10.3); Creatinine Clr Calc Pharmacy 13.7 ml/min; Est GFR (African American) 12.1 ml/min; Est GFR (Non-African American) 10.5 ml/min; Globulin 2.3 gm/dl (2.5-4.0); Magnesium 2.4 mg/dl (1.7-2.4); Potassium 4.3 mmol/L (3.5-5.1); Total Protein 5.6 gm/dl (6.0-8.3)
[2024-04-25 15:29] LABS: Troponin I High Sensitivity 17.3 pg/ml (0-20)
--- NOTE | 2024-04-25 15:29 | XRay Report ---
SINGLE VIEW CHEST CLINICAL HISTORY: Generalized weakness. FINDINGS: 2 AP, portable, upright chest radiographs are compared to study dated 04/12/2024. Correlatio n is made with chest CT dated 12/02/2023. The patient is status post midline sternotomy. The heart is m arkedly enlarged noting atherosclerotic calcification of the thoracic aorta. There is pulmonary vascu lar congestion. Atelectasis is noted at both lung bases. No airspace consolidation or large pleural e ffusion is identified. No pneumothorax is seen. The skeletal structures are osteopenic. The bony thor ax is grossly intact. Surgical clips project over the right shoulder. IMPRESSION: Cardiomegaly with evidence of congestive failure. ACT 112: Negative or not required by law. Electronically signed by: Kasi Dai M.D. 04/25/2024 3:28 PM
[2024-04-25 15:36] LABS: Thyroid Stimulating Hormone 2.429 uIu/ml (0.300-4.500)
[2024-04-25] MEDS: ALBUT/IPRATROP 3MG/0.5MG NEB 3 ML VIAL NEB STA (16:04)
[2024-04-25 16:17] LABS: Adenovirus PCR DETECTED (NotDetected); Bordetella parapertussis PCR Not Detected (NotDetected); Bordetella pertussis PCR Not Detected (NotDetected); Chlamydia pneumoniae PCR Not Detected (NotDetected); Coronavirus 229E PCR Not Detected (NotDetected); Coronavirus CoV-2 (COVID19)PCR Not Detected (NotDetected); Coronavirus HKU1 PCR Not Detected (NotDetected); Coronavirus NL63 PCR Not Detected (NotDetected); Coronavirus OC43PCR Not Detected (NotDetected); Human Metapneumovirus PCR Not Detected (NotDetected); Influenza A PCR Not Detected (NotDetected); Influenza B PCR Not Detected (NotDetected); Mycoplasma pneumoniae PCR Not Detected (NotDetected); Parainfluenza Virus 1 PCR Not Detected (NotDetected); Parainfluenza Virus 2 PCR Not Detected (NotDetected); Parainfluenza Virus 3 PCR Not Detected (NotDetected); Parainfluenza Virus 4 PCR Not Detected (NotDetected); Respiratory Syncytial VirusPCR Not Detected (NotDetected); Rhinovirus/Enterovirus PCR Not Detected (NotDetected)
--- NOTE | 2024-04-25 16:51 | History & Physical Report ---
Date of Service April 25, 2024 Assessment & Plan (1) Weakness: Plan: Weakness, acute on chronic Adenovirus positive, chest x-ray with evidence of congestive failure. Factorial weakness with aortic dissection resulting in spinal ischemia with paraplegia and motor scooter requirement, chronic deconditioning and decline, anemia of chronic disease acutely worse with adenovirus and mild volume overload. He is normally able to transfer the sense of his however has become too weak to do this. As patient is no longer able to transfer at home even with assistance will require optimization and potentially a higher level of care. PT/OT pending (2) Adenovirus infection: Plan: Adenovirus Supportive care No leukocytosis, afebrile. No hypoxia (3) ESRD (end stage renal disease) on dialysis: Plan: ESRD on HD HD dependent via left brachiocephalic AV fistula. He is not anuric. Admitting potassium 4.3. Mild congestive failure on x-ray; no hypoxia Nephrology consulted next dialysis session would be due 04/26/2024. No indication for emergent dialysis on admission Continue sevelamer Last echo with EF 55 to 60%, no regional wall motion abnormalities. Congestive overload and bilateral effusions due to ESRD/HD dependence and are likely transudative; thora deferred. (4) Atrial fibrillation: Plan: A-fib A-fib, rate 73 on admission. No acute territorial ST segment changes Continue Eliquis Continue metoprolol (5) Sacral decubitus ulcer, stage IV: Plan: - Follows with woudn care - REmains with stage IV sacral wound with vac in place - Wound care consulted (6) Wheelchair dependent: Plan: history of aortic dissection s/p repair, but w/ Subsequent spinal ischemia neurogenic bladder, paraplegia with scooter at baseline Plan DVT prophylaxis: Anticoagulated Diet: Heart healthy Disposition: Medical/surgical CODE STATUS: Full code History of Present Illness Primary Care Provider: DO Guanaco Greer is a 78-year-old male with a past medical history of ESRD on dialysis, CKD, MDD, sacral decubitus ulcer, anemia of chronic disease, AAA, colostomy, and A-fib on Eliquis who presents to the ER with several days of adductive cough and weakness. Was recently discharged 04/19/2024 after an admission for constipation. Patient has had progressive weakness to the point where his is no longer able to help him transfer at home. Patient is seen with his at bedside. Patient reports he has had several days of a minimally productive cough for whitish sputum. Has had increased weakness and shortness of breath. Has felt a little cold and chilly, no fevers. No change in urinary output. No abdominal pain. No chest pressure or chest pain. Generally does not get fevers even when he has a bacterial pneumonia. He is dialysis dependent but still makes ~200-400cc urine daily. Does not take lasix or any fluids medications. This was discontinued many years ago, but has not been used since he was put on dialysis. No history of CHF. He has had no leg swelling or edema. No change in medications. Unfortunately he is normally able to help transfer from the wheelchair but he is currently too weak to do so and is not able to remain home due to increased care needs at this time. Medical History: Reviewed Medications: Reviewed Surgical History: Reviewed Family history: Reviewed Allergies: Reviewed Social History: Reviewed Code Status: Full Allergies Allergy/AdvReac Type Severity Reaction Status Date / Time tetracycline Allergy Intermediate HIVES Verified 04/25/24 15:40 NSAIDS (Non-Steroidal Allergy Unknown Unknown, Unverified 04/25/24 15:40 Anti-Inflamma on file w/ [facility] morphine AdvReac Intermediate Nausea Verified 04/25/24 15:40 Home Medications Medication Instructions Recorded Confirmed Type cholecalciferol (vitamin D3) 50 50 mcg PO QPM 12/31/19 04/25/24 History mcg (2,000 unit) tablet (Vitamin D3) Wheelchair (Powered) (Power #1 ea 01/04/22 04/25/24 Rx Wheelchair) sevelamer carbonate 800 mg tablet See Rx Instructions .Route .COMPLEX 09/20/22 04/25/24 History alprazolam 0.25 mg tablet 0.25 mg PO HS PRN Anxiety/Panic 10/09/23 04/25/24 Rx attacks #30 tabs Mattress (Air or other) #1 ea 10/21/23 04/25/24 Rx mirtazapine 7.5 mg tablet 7.5 mg PO DAILY #60 tabs 01/26/24 04/25/24 Rx apixaban 2.5 mg tablet (Eliquis) 2.5 mg PO BID #180 tabs 02/03/24 04/25/24 Rx gabapentin 300 mg capsule 600 mg (2 x 300 mg) PO HS #180 caps 03/05/24 04/25/24 Rx atorvastatin 20 mg tablet 20 mg PO DAILY 04/14/24 04/25/24 History metoprolol succinate 25 mg 25 mg PO QAM 04/14/24 04/25/24 History tablet,extended release 24 hr midodrine 5 mg tablet 5 mg PO 3XWK 04/14/24 04/25/24 History vitamin B complex and vitamin C 1 cap PO QAM 04/14/24 04/25/24 History no.20-folic acid 1 mg capsule (Triphrocaps) oxycodone-acetaminophen 5 mg-325 1 tab PO Q6H PRN pain #30 tabs 04/22/24 04/25/24 Rx mg tablet (Percocet) Past Med/Surg History Problem List (Updated 04/25/24 @ 18:10 by Kasi Mcrae MD) Dialysis patient (Acute) Anemia (Acute) Adenoviral infection (Acute) Weakness (Acute) Adenovirus infection Colostomy in place Laparoscopic loop sigmoid colostomy by Dr. Yaquelin Hou for sacral ulcer healing Altered bowel elimination due to intestinal ostomy (Acute) Sacral ulcer Insomnia MDD (major depressive disorder), single episode, mild CKD (chronic kidney disease) (Acute) Pneumonia (Acute) Acute hypoxemic respiratory failure (Acute) Hypoxia (Acute) ESRD (end stage renal disease) on dialysis (Acute) Anemia of chronic disease Elevated troponin Wheelchair dependent Abnormal computed tomography of lung 08/05/23 - Wedge shaped consolidation of lung. No signs of PNA on exam. Recommend 3 month f/u CT ordered. Neurogenic bowel (Chronic) Sleep apnea Neurogenic bladder Generalized osteoarthritis Neurogenic claudication due to lumbar spinal stenosis Lower extremity edema Inability to walk Lymphedema Central venous catheter in place MRSA (methicillin resistant staph aureus) culture positive Hypertension Atrial fibrillation Follows with [facility] cardiology (Dr. Jarvis) On Eliqu Abdominal aortic aneurysm (~2014) S/p Type A dissection with emergent repair in 2014 - Follows with vascular - last seen 11/2022- AAA 3.3cm, iliac artery aneursym (right 2.0cm and left 3.0 cm)- all stable in size; chronic thoracic aortic dissection- stable- vascular recommended repeating imaging May 2024 ESRD (end stage renal disease) on dialysis [facility] in [place] Fri-Fri-Fri Sacral decubitus ulcer, stage IV (Acute) "stable to improved" per [place] wound clinic>WOUND CLINIC WEEKLY AND [facility]UR[facility] 2X PER WEEK. patient's changes dressing as instructed at home. Neuropathic pain Hyperlipidemia Anemia due to chronic kidney disease Anxiety Medical History Encounter for pre-operative examination Lobar pneumonia 08/2022 treated at [facility] inpatient. 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 Shrestha at [facility]>WC BOUND FOR 3 YEARS D/T CYSTS. inhibiting patient to ambulate. 04/25/23: awaiting for surgery to remove the spinal cyst but will need his ulcer wound repaired and healed fully first --> reason for upcoming colostomy. History of CHF (congestive heart failure) Impotence, organic Sleep apnea CPAP PTSD (post-traumatic stress disorder) POST AORTIC DISSECTION Neurogenic bladder Self Catheterization since Aortic repair 4-5X PER DAY Lumbar spinal stenosis Surgical History History of removal of tunneled central venous catheter (CVC) with port removal of perm cath 05/[address] Marroquin S/P arteriovenous (AV) fistula creation left S/P debridement (02/08/22) Sacral Wound Debridment, Sacral bone biopsy(Not Applicable) - Jose Le, S/P debridement (06/27/21) Excisional Debridement Sacral Decubitus Ulcer down to muscle level 4cm x 6cm - Ranjeet Myers DO 06/27/2021 Excisional Debridement of Sacral Decubitus Ulcer Down to Bone, 11cm x 10cm(Not Applicable) - Ranjeet Myers DO 07/25/2021: MAC 3, ETT 7.5. History of revision of total hip arthroplasty History of arthroplasty of left hip S/P total right hip arthroplasty History of cardioversion mult>FOLLOWS WITH DR. JARVIS History of lumbar fusion History of bladder surgery History of transurethral resection of prostate Nausea and vomiting after administration of anesthetic agent History of arthroscopy RT KNEE History of open reduction and internal fixation (ORIF) procedure RT WRIST History of total knee replacement RT History of esophagogastroduodenoscopy (EGD) History of colonoscopy History of tooth extraction History of rhinoplasty History of cataract surgery RT/LEFT 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 2015 Did have thoracic bleeding post op- required re exploration approx 1 week after initial presentation- had ARF, spinal cord ischemia resulting in paraplegia, neurogenic bladder and neurogenic bowel. History of gastric bypass 2010 History of cardiac catheterization 2004 - no stents - [facility] in [place] Family History Grandmother Family history of diabetes mellitus Mother Gallbladder disease Father Prostate cancer Myocardial infarction Hypertension Other Family history non-contributory No family history of adverse response to anesthesia Denies family history of Ovarian cancer Breast cancer Colorectal cancer Social History Smoking Status: Never smoker Second Hand Exposure: No; Do You Dip or Chew Tobacco: No; Hx Alcohol Use: No Hx Substance Use: No Preferred Language: Azeri Communication Ability: Effective Visual Impairment: Limited Hearing Ability: Normal [place] Buyer Required: No Beliefs That Will Affect Care: None marital status: Current Living Situation: Spouse Current Living Situation Comment: home wiith current occupational status: retired How many Children do You have: 1 Feels Safe at Home: Yes Childhood Exposure to Second-Hand Smoke: Yes (father did ) Diet: regular Diet Comment: low sugar, low phospate caffeine: Yes (tea) during the past year weight has: remained stable Dental Care, Regularly: Yes Physical Activity Frequency: Does not Exercise Physical Activity Frequency Comment: goes to PT twice a week Seatbelt Use: always Sunscreen Use: Yes Do you think of yourself as: straight/heterosexual Gender Identity: Male Assistive Devices: Hospital Bed and Scooter/Electric Scooter Physical Exam Physical Exam: General: A&Ox3. NAD. Cooperative. HEENT: Atraumatic, normocephalic. Vision/hearing intact. Pulm: Diminished in the bases bilaterally symmetrical chest rise. No increased work of breathing. No respiratory distress. Cardiac: irir, +sm Radial pulses intact and symmetrical. Abdominal: Nontender, nondistended, soft. BS present. Sacrum: Sacral ulcer present with wound VAC in place. Wound VAC with good seal, and no surrounding erythema/warmth/tenderness suggestive of superimposed cellulitis Extremities: No lower extremity edema Results & Data Results & Data Vital Signs (Past 12 Hours) Vital Signs Temp Pulse Resp BP Pulse Ox O2 Del Method 04/25/24 15:40 65 04/25/24 14:37 36.9 C 61 18 124/75 94 Room Air PG Care Time/CCT Total # of Minutes Spent Total Time Spent with Patient: Total time spent is greater than 50% in coordination of care (as documented) at patient's floor/unit and/or counseling patient: Coding Level of Care Code 26569 INT INP/OBS CARE 3/75MIN Diagnoses Weakness R53.1 Adenovirus infection B34.0 ESRD (end stage renal disease) on dialysis N18.6; Z99.2 Permanent atrial fibrillation I48.2 Atrial fibrillation type: permanent Sacral decubitus ulcer, stage IV L89.154 Wheelchair dependent Z99.3 (4) Atrial fibrillation Atrial fibrillation type: permanent Qualified Code(s): I48.2 - Chronic atrial fibrillation
--- NOTE | 2024-04-25 17:07 | Electrocardiogram Report ---
Test Reason : Blood Pressure : */* mmHG Vent. Rate : 73 BPM Atrial Rate : * BPM P-R Int : * ms QRS Dur : 114 ms QT Int : 418 ms P-R-T Axes : * -65 -13 degrees QTcB Int : 460 ms Atrial fibrillation Left anterior fascicular block Nonspecific T wave abnormality Prolonged QT Abnormal ECG When compared with ECG of 23-Sep-2023 23:18, Nonspecific T wave abnormality now evident in Inferior leads T wave inversion no longer evident in Lateral leads QT has shortened Confirmed by Lakisha Reyna ([id number]) on 04/25/2024 5:06:59 PM Referred By: REFERRED SELF Confirmed By: Lakisha Reyna
[2024-04-25 17:30] LABS: Appearance Urine Clear (Clear); Bacteria Urine Automated 1+ (None Seen); Bilirubin Urine Negative (Negative); Blood Urine Negative (Negative); Cast Urine Automated 0-2 /lpf (0-2); Color Urine Yellow; Epithelial Cell Urine Auto 0-2 /hpf (0-2); Glucose Urine UA Negative (Negative); Ketones Urine Negative (Negative); Leukocyte Esterase Urine 3+ (Negative); Nitrite Urine Negative (Negative); Protein Urine 2+ (Negative); RBC Urine Automated 0-2 /hpf (0-2); Specific Gravity Urine 1.009 (1.000-1.030); Urobilinogen Urine Negative (Negative); WBC Urine Automated 21-50 /hpf (0-5); pH Urine >= 9.0 (4.5-7.5)
--- NOTE | 2024-04-25 18:20 | CT Scan Report ---
CT SCAN OF THE CHEST WITHOUT IV CONTRAST CLINICAL HISTORY: Cough and dyspnea COMPARISON STUDY: Chest x-ray dated 04/25/2024. Chest CT dated 12/02/2023 TECHNIQUE: CT scan of the thorax was performed from the thoracic inlet to the upper abdomen. Images are reviewed in the axial, sagittal, and coronal planes. IV contrast was not administered for this ex amination as per the referring clinician. A dose lowering technique was utilized adhering to the eva Moe. CT DOSE: 425.08 mGy.cm FINDINGS: Thyroid: Imaged portions of the thyroid gland are normal in size and attenuation. Thoracic aorta: Post surgical changes suggested in the aortic root. There is atherosclerotic calcific ation of the thoracic aorta, which is normal in caliber and demonstrates standard 3-vessel arch anato my. Heart: The patient is status post midline sternotomy. The heart is markedly enlarged and without denise cardial effusion. The coronary arteries and mitral annulus are densely calcified. There is diminished attenuation of the cardiac blood pool as compared to myocardium suggesting anemia. The pulmonary chantal nk is dilated, measuring 4.4 cm in diameter. This suggests pulmonary artery hypertension. Lungs and pleural spaces: Mild intralobular septal thickening suggests fluid overload/congestive young ge. There are [id number] pleural effusions with dependent atelectasis. Asymmetric patchy airsp valarie opacities are seen in the right upper lobe on image #67. There are scattered calcified granulomas . Secretions are noted in the trachea. A 6 cm right lower lobe pulmonary nodule on image #168 is unch anged. Mediastinum: There are numerous mildly enlarged mediastinal lymph nodes which measure up to 12 mm in short axis. Joyce: Not well assessed without IV contrast. Axillae: There is no axillary lymphadenopathy. Upper abdomen: The liver is cirrhotic in morphology and heterogeneous attenuation, noting nodularity of the surface contour. Postsurgical change is noted in the partially imaged stomach. Skeletal structures: The skeletal structures are osteopenic. Degenerative changes and kyphoscoliosis is noted in the thoracic spine. No lytic or blastic bony lesions are seen. IMPRESSION: 1. Cardiomegaly with evidence of congestive failure. 2. Small to moderate pleural effusions with dependent consolidation. 3. Patchy airspace opacities in the right upper lobe could represent a component of mild pulmonary ed irving and/or a mild infectious/inflammatory pneumonitis. Correlate clinically. Radiographic follow-up o f these findings to resolution is recommended. 4. Mildly enlarged mediastinal left nodes are nonspecific and likely reactive. 5. Cirrhotic liver morphology. 6. Additional findings as above. ACT 112: Negative or not required by law. Electronically signed by: Kasi Dai M.D. 04/25/2024 6:18 PM
[2024-04-25] MEDS ORDERED: POLYETHYLENE (MIRALAX) 17 GM PACK PO PRN (21:54)
[2024-04-25] MEDS ORDERED: SEVELAMER CARBONATE 800 MG TAB PO PRN (22:59)
[2024-04-25] MEDS: CHOLECALCIFEROL 25 MCG (1000 UNITS) TAB PO SCH (23:20)
[2024-04-25] MEDS: GABAPENTIN 300 MG CAP PO SCH (23:20)
[2024-04-25] MEDS: APIXABAN 2.5 MG TAB PO SCH (23:20)
[2024-04-25] MEDS: ALPRAZolam 0.25 MG TABLET PO PRN (23:20)
[2024-04-26] MEDS: MIRTAZAPINE TAB 15 MG TAB PO SCH (07:49)
[2024-04-26] MEDS: NEPHROCAPS PO SCH (07:49)
[2024-04-26] MEDS: ATORVASTATIN 20 MG TAB PO SCH (07:49)
[2024-04-26] MEDS: METOPROLOL SUCC 25MG EXT REL TAB PO SCH (07:50)
[2024-04-26] MEDS: MIDODRINE HCL 2.5 MG TAB PO SCH (07:51)
[2024-04-26] MEDS: SEVELAMER CARBONATE 800 MG TAB PO SCH (07:52)
[2024-04-26 08:13] LABS: Basophils # (auto) 0.06 K/uL (0.00-0.20); Basophils % (auto) 1.2 %; Eosinophils # (auto) 0.42 K/uL (0.00-0.50); Eosinophils % (auto) 8.5 %; Hematocrit (blood only) 29.5 % (42.0-52.0); Hemoglobin 9.3 g/dl (14.0-18.0); Immature Granulocytes # (auto) 0.01 K/uL (0.01-0.20); Immature Granulocytes % (auto) 0.2 %; Lymphocytes % (auto) 16.2 %; Mean Corpuscular Hemoglobin 32.5 pg (25.0-34.0); Mean Corpuscular Hgb Conc 31.5 g/dL (32.0-36.0); Mean Corpuscular Volume 103.1 fL (80.0-100.0); Monocytes # (auto) 0.54 K/uL (0.11-0.59); Monocytes % (auto) 10.9 %; Neutrophils # (auto) 3.11 K/uL (1.40-6.50); Platelet Count 149 K/uL (130-400); RDW Coefficient of Variation 17.1 % (11.5-14.5); Red Blood Count 2.86 M/uL (4.70-6.10); White Blood Count 4.94 K/ul (4.8-10.8)
[2024-04-26 08:38] LABS: BUN Creatinine Ratio 10.3 (10-20); Calcium 8.5 mg/dl (8.6-10.3); Creatinine Clr Calc Pharmacy 12.2 ml/min; Est GFR (African American) 10.5 ml/min; Est GFR (Non-African American) 9.1 ml/min; Potassium 4.6 mmol/L (3.5-5.1)
--- NOTE | 2024-04-26 09:59 | Nephrology Consultation ---
Date of Consultation April 26, 2024 Assessment & Plan (1) ESRD (end stage renal disease) on dialysis: HD MWF. Orders for HD today entered into EHR. AVF has been functioning well. Outpatient HD Rx has been MWF 3h 15m on a 180 optiflux at Qb 450 Qd 800, 3 K, 2.5 calcium. EDW 79.5 kg. Midodrine pre-HD. Medications appropriately dosed for kidney function. Low potassium diet. Continue daily renal MVI. Sevelamer QAC. Document I/O's. Repeat metabolic profile tomorrow AM. (2) Anemia of chronic disease: Chronic, stable. Maintained on Micera Q2 weeks at HD. Epogen 59571 units will be provided with HD today. (3) Adenovirus infection: Symptomatic management. (4) Sacral decubitus ulcer, stage IV: Wound care consult pending. PT/OT pending. History of Present Illness Reason for Consultation: ESRD-HD Requesting Physician: Angela Martin MD Attending Physician: Angela Martin MD History of Present Illness Mr. Guanaco Escobedo (Ken) is a 78-year-old male with hypertension, osteoarthritis, spinal stenosis, a significant history of type A aortic dissection with resultant spinal ischemia and neurogenic bladder. He has loss of sensation complicated by a sacral decubitus ulcer. 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 Following aortic repair, a stable infrarenal dissection has been monitored in the distal aorta extending into the left iliac. Khari has CKD attributed to vascular disease and hypertensive nephrosclerosis as well as a significant history of ATN. He started HD during an admission to [facility] in January 2022. Khari has been tolerating HD reasonably well with some intradialytic hypotension. He does use opiates for pain associated with sacral decubitus prior to treatment. He is also maintained on PRN alprazolam for a history of panic attacks related to PTSD. He has a well functioning L AC AVF which was placed by Dr. Marroquin. He was admitted to [facility] in September 2021 with a sacral decubitus ulcer and concern for osteomyelitis. During the admission, he developed anemia requiring PRBC transfusion support. He follows with wound care through [facility]. Recent management including wound vac. The sacral decubitus has unfortunately been non-healing and surgical closure option complicated by osteomyelitis and high risk for non- healing. In the interim, a diverting ostomy has been placed. khari has had several recent admissions to [facility]. Most recently with constipation and stool from his rectum. Thankfully, no fistula was identified. Stool was attributed to retained colon contents. Khari returned to the hospital yesterday with weakness and failure to thrive. He is positive for adenovirus. He completed a full dialysis treatment on Friday without complications. Khari has been tolerating HD well. No complications with treatment noted. EDW 79.5 kg. He left HD at 80.3 kg on Friday s/p UF ~4+ L. Allergies Allergy/AdvReac Type Severity Reaction Status Date / Time tetracycline Allergy Intermediate HIVES Verified 04/25/24 15:40 NSAIDS (Non-Steroidal Allergy Unknown Unknown, Unverified 04/25/24 15:40 Anti-Inflamma on file w/ [facility] morphine AdvReac Intermediate Nausea Verified 04/25/24 15:40 Home Medications Medication Instructions Recorded Confirmed Type cholecalciferol (vitamin D3) 50 50 mcg PO QPM 12/31/19 04/25/24 History mcg (2,000 unit) tablet (Vitamin D3) Wheelchair (Powered) (Power #1 ea 01/04/22 04/25/24 Rx Wheelchair) sevelamer carbonate 800 mg tablet See Rx Instructions .Route .COMPLEX 09/20/22 04/25/24 History alprazolam 0.25 mg tablet 0.25 mg PO HS PRN Anxiety/Panic 10/09/23 04/25/24 Rx attacks #30 tabs Mattress (Air or other) #1 ea 10/21/23 04/25/24 Rx mirtazapine 7.5 mg tablet 7.5 mg PO DAILY #60 tabs 01/26/24 04/25/24 Rx apixaban 2.5 mg tablet (Eliquis) 2.5 mg PO BID #180 tabs 02/03/24 04/25/24 Rx gabapentin 300 mg capsule 600 mg (2 x 300 mg) PO HS #180 caps 03/05/24 04/25/24 Rx atorvastatin 20 mg tablet 20 mg PO DAILY 04/14/24 04/25/24 History metoprolol succinate 25 mg 25 mg PO QAM 09/18/24 09/29/24 History tablet,extended release 24 hr midodrine 5 mg tablet 5 mg PO 3XWK 04/14/24 04/25/24 History vitamin B complex and vitamin C 1 cap PO QAM 04/14/24 04/25/24 History no.20-folic acid 1 mg capsule (Triphrocaps) oxycodone-acetaminophen 5 mg-325 1 tab PO Q6H PRN pain #30 tabs 04/22/24 04/25/24 Rx mg tablet (Percocet) Patient History Medical History Encounter for pre-operative examination Lobar pneumonia 08/2022 treated at [facility] inpatient. 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 Shrestha at [facility] – [place]>WC BOUND FOR 3 YEARS D/T CYSTS. inhibiting patient to ambulate. 04/25/23: awaiting for surgery to remove the spinal cyst but will need his ulcer wound repaired and healed fully first --> reason for upcoming colostomy. History of CHF (congestive heart failure) Impotence, organic Sleep apnea CPAP PTSD (post-traumatic stress disorder) POST AORTIC DISSECTION Neurogenic bladder Self Catheterization since Aortic repair 4-5X PER DAY Lumbar spinal stenosis Surgical History History of removal of tunneled central venous catheter (CVC) with port removal of perm cath 05/[address] Marroquin S/P arteriovenous (AV) fistula creation left S/P debridement (02/08/22) Sacral Wound Debridment, Sacral bone biopsy(Not Applicable) - Jose Le, DO S/P debridement (06/27/21) Excisional Debridement Sacral Decubitus Ulcer down to muscle level 4cm x 6cm - Ranjeet Myers, 06/27/2021 Excisional Debridement of Sacral Decubitus Ulcer Down to Bone, 11cm x 10cm(Not Applicable) - Ranjeet Myers, 07/25/2021: MAC 3, ETT 7.5. History of revision of total hip arthroplasty History of arthroplasty of left hip S/P total right hip arthroplasty History of cardioversion mult>FOLLOWS WITH DR. 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 History of gastric bypass 2010 History of cardiac catheterization 2004 - no stents - [facility] in [place] Family History Grandmother Family history of diabetes mellitus Mother Gallbladder disease Father Prostate cancer Myocardial infarction Hypertension Other Family history non-contributory No family history of adverse response to anesthesia Denies family history of Ovarian cancer Breast cancer Colorectal cancer Social History Smoking Status: Never smoker Second Hand Exposure: No; Do You Dip or Chew Tobacco: No; Hx Alcohol Use: No Hx Substance Use: No Preferred Language: Kittitian Communication Ability: Effective Visual Impairment: Limited Hearing Ability: Normal Administrative Library Assistant Required: No Beliefs That Will Affect Care: None marital status: Current Living Situation: Spouse Current Living Situation Comment: home with current occupational status: retired How many Children do You have: 1 Other Information That Helps Us Care for You: No Feels Safe at Home: Yes Safety Concerns: Feels Safe At This Time Childhood Exposure to Second-Hand Smoke: Yes (father did ) Diet: regular Diet Comment: low sugar, low phospate caffeine: Yes (tea) during the past year weight has: remained stable Dental Care, Regularly: Yes Physical Activity Frequency: Does not Exercise Physical Activity Frequency Comment: goes to PT twice a week Seatbelt Use: always Sunscreen Use: Yes Do you think of yourself as: straight/heterosexual Gender Identity: Male Assistive Devices: Lift Chair and Scooter/Electric Scooter Assistive Devices Comment: left at home Review of Systems Review of Systems: All systems reviewed & are unremarkable except as noted in HPI & below Constitutional: + weakness Physical Exam Constitutional: well developed and + thin; no acute distress Eyes: + anicteric sclerae ENMT: Mouth: no oral mucosal abnormality and oral mucous membranes not dry Neck: normal visual inspection and trachea midline Respiratory: normal respiratory effort Cardiovascular: Rate/Rhythm: regular rate Heart Sounds: normal S1 and normal S2 Extremities: + AV fistula; no edema Musculoskeletal: Extremities: no cyanosis and no clubbing Skin: no jaundice Neurologic: Motor/Sensory: no tremor and no asterixis Psychiatric: Orientation: alert and oriented x 3 Genitourinary: Perry with clear yellow urine in bag Results & Data Vital Signs (Past 12 Hours) Vital Signs Temp Pulse Resp BP Pulse Ox O2 Del Method 04/26/24 07:43 37.2 C 74 16 137/75 93 Room Air 04/25/24 22:00 Room Air Laboratory Results Laboratory Results - last 24 hr 04/25/24 04/25/24 04/25/24 14:46 15:41 17:15 WBC 4.68 L RBC 2.81 L Hgb 9.0 L Hct 30.1 L MCV 107.1 H MCH 32.0 MCHC 29.9 L RDW Std Deviation 69.0 H RDW Coeff of Hector 17.5 H Plt Count 143 MPV 8.9 L Immature Gran % (Auto) 0.2 Neut % (Auto) 68.8 Lymph % (Auto) 10.9 Bond % (Auto) 11.1 Eos % (Auto) 8.1 Baso % (Auto) 0.9 Neut # (Auto) 3.22 Lymph # (Auto) 0.51 L Bond # (Auto) 0.52 Eos # (Auto) 0.38 Baso # (Auto) 0.04 Immature Gran # (Auto) 0.01 Sodium 136 Potassium 4.3 Chloride 96 L Carbon Dioxide 30 Anion Gap 10 BUN 53 H Creatinine 4.94 H* Est Cr Clr Drug Dosing 13.7 Est GFR ( Amer) 12.1 Est GFR (Non-Af Amer) 10.5 BUN/Creatinine Ratio 10.7 Glucose 112 H Lactate 1.0 Calcium 8.7 Magnesium 2.4 Total Bilirubin 0.6 AST 14 ALT 14 Alkaline Phosphatase 109 H Troponin I High Sens 17.3 Total Protein 5.6 L Albumin 3.3 L Globulin 2.3 L Albumin/Globulin Ratio 1.4 Procalcitonin TSH 2.429 Urine Color Yellow Urine Appearance Clear Urine pH >= 9.0 H Ur Specific [place] 1.009 Urine Protein 2+ H Urine Glucose (UA) Negative Urine Ketones Negative Urine Blood Negative Urine Nitrite Negative Urine Bilirubin Negative Urine Urobilinogen Negative Ur Leukocyte Esterase 3+ H Urine WBC (Auto) 21-50 H Urine RBC (Auto) 0-2 U Hyaline Cast (Auto) 0-2 U Epithel Cells (Auto) 0-2 Urine Bacteria (Auto) 1+ H Adenovirus (PCR) B. pertussis DNA (PCR) B.parapertussis DNA PCR C. pneumoniae DNA (PCR) Coronavirus OC43 (PCR) Coronavirus HKU1 (PCR) Coronavirus 229E (PCR) SARS-CoV-2 (PCR) Coronavirus NL63 (PCR) Human Metapneumovir PCR Influenza Type A (PCR) Influenza Type B (PCR) M. pneumoniae (PCR) Parainfluenza 1 (PCR) Parainfluenza 2 (PCR) Parainfluenza 3 (PCR) Parainfluenza 4 (PCR) RSV (PCR) Entero/Rhino (PCR) 04/25/24 04/26/24 04/26/24 Unknown 06:58 09:23 WBC 4.94 RBC 2.86 L Hgb 9.3 L Hct 29.5 L MCV 103.1 H MCH 32.5 MCHC 31.5 L RDW Std Deviation 65.0 H RDW Coeff of Hector 17.1 H Plt Count 149 MPV 9.0 L Immature Gran % (Auto) 0.2 Neut % (Auto) 63.0 Lymph % (Auto) 16.2 Bond % (Auto) 10.9 Eos % (Auto) 8.5 Baso % (Auto) 1.2 Neut # (Auto) 3.11 Lymph # (Auto) 0.80 L Bond # (Auto) 0.54 Eos # (Auto) 0.42 Baso # (Auto) 0.06 Immature Gran # (Auto) 0.01 Sodium 135 L Potassium 4.6 Chloride 96 L Carbon Dioxide 29 Anion Gap 10 BUN 57 H Creatinine 5.55 H* D Est Cr Clr Drug Dosing 12.2 Est GFR ( Amer) 10.5 Est GFR (Non-Af Amer) 9.1 BUN/Creatinine Ratio 10.3 Glucose 75 Lactate Calcium 8.5 L Magnesium Total Bilirubin AST ALT Alkaline Phosphatase Troponin I High Sens Total Protein Albumin Globulin Albumin/Globulin Ratio Procalcitonin Pending TSH Urine Color Urine Appearance Urine pH Ur Specific [place] Urine Protein Urine Glucose (UA) Urine Ketones Urine Blood Urine Nitrite Urine Bilirubin Urine Urobilinogen Ur Leukocyte Esterase Urine WBC (Auto) Urine RBC (Auto) U Hyaline Cast (Auto) U Epithel Cells (Auto) Urine Bacteria (Auto) Adenovirus (PCR) DETECTED A B. pertussis DNA (PCR) Not Detected B.parapertussis DNA PCR Not Detected C. pneumoniae DNA (PCR) Not Detected Coronavirus OC43 (PCR) Not Detected Coronavirus HKU1 (PCR) Not Detected Coronavirus 229E (PCR) Not Detected SARS-CoV-2 (PCR) Not Detected Coronavirus NL63 (PCR) Not Detected Human Metapneumovir PCR Not Detected Influenza Type A (PCR) Not Detected Influenza Type B (PCR) Not Detected M. pneumoniae (PCR) Not Detected Parainfluenza 1 (PCR) Not Detected Parainfluenza 2 (PCR) Not Detected Parainfluenza 3 (PCR) Not Detected Parainfluenza 4 (PCR) Not Detected RSV (PCR) Not Detected Entero/Rhino (PCR) Not Detected Diagnostic Findings CT SCAN OF THE CHEST WITHOUT IV CONTRAST COMPARISON STUDY: Chest x-ray dated 04/25/2024. Chest CT dated 12/02/2023 FINDINGS: Thyroid: Imaged portions of the thyroid gland are normal in size and attenuation. Thoracic aorta: Post surgical changes suggested in the aortic root. There is atherosclerotic calcification of the thoracic aorta, which is normal in caliber and demonstrates standard 3-vessel arch anatomy. Heart: The patient is status post midline sternotomy. The heart is markedly enlarged and without pericardial effusion. The coronary arteries and mitral annulus are densely calcified. There is diminished attenuation of the cardiac blood pool as compared to myocardium suggesting anemia. The pulmonary trunk is dilated, measuring 4.4 cm in diameter. This suggests pulmonary artery hypertension. Lungs and pleural spaces: Mild intralobular septal thickening suggests fluid overload/congestive change. There are [id number] pleural effusions with dependent atelectasis. Asymmetric patchy airspace opacities are seen in the right upper lobe on image #67. There are scattered calcified granulomas. Sec retions are noted in the trachea. A 6 cm right lower lobe pulmonary nodule on image #168 is unchanged. Mediastinum: There are numerous mildly enlarged mediastinal lymph nodes which measure up to 12 mm in short axis. Joyce: Not well assessed without IV contrast. Axillae: There is no axillary lymphadenopathy. Upper abdomen: The liver is cirrhotic in morphology and heterogeneous attenuation, noting nodularity of the surface contour. Postsurgical change is noted in the partially imaged stomach. Skeletal structures: The skeletal structures are osteopenic. Degenerative changes and kyphoscoliosis is noted in the thoracic spine. No lytic or blastic bony lesions are seen. IMPRESSION: 1. Cardiomegaly with evidence of congestive failure. 2. Small to moderate pleural effusions with dependent consolidation. 3. Patchy airspace opacities in the right upper lobe could represent a component of mild pulmonary edema and/or a mild infectious/inflammatory pneumonitis. Correlate clinically. Radiographic follow-up of these findings to resolution is recommended. 4. Mildly enlarged mediastinal left nodes are nonspecific and likely reactive. 5. Cirrhotic liver morphology. PG Care Time/CCT Total # of Minutes Spent Total Time Spent with Patient: Total time spent is greater than 50% in coordination of care (as documented) at patient's floor/unit and/or counseling patient: Coding Level of Care Code 04766 INT INP/OBS CARE 3/75MIN Diagnoses ESRD (end stage renal disease) on dialysis N18.6; Z99.2 Anemia of chronic disease D63.8 Adenovirus infection B34.0 Sacral decubitus ulcer, stage IV L89.154
[2024-04-26] MEDS: EPOETIN ALFA 20,000 UNITS/ML VIAL IV ONE (12:22)
[2024-04-26] MEDS: oxyCODONE/ACETAMINOPHEN 5mg/325mg TAB PO PRN (14:45)
--- NOTE | 2024-04-26 19:37 | Hospitalist Progress Note ---
Date of Service April 26, 2024 Assessment & Plan (1) Weakness: Plan: Weakness, acute on chronic Adenovirus positive, chest x-ray with evidence of congestive failure and possible RUL PNA. Factorial weakness with aortic dissection resulting in spinal ischemia with paraplegia and motor scooter requirement, chronic deconditioning and decline, anemia of chronic disease acutely worse with adenovirus and mild volume overload. He is normally able to transfer the sense of his however has become too weak to do this. As patient is no longer able to transfer at home even with assistance will require optimization and potentially a higher level of care. PT/OT pending (2) Adenovirus infection: Plan: Adenovirus Supportive care No leukocytosis, afebrile-no antibiotics needed No hypoxia (3) ESRD (end stage renal disease) on dialysis: Plan: ESRD on HD HD dependent via left brachiocephalic AV fistula. He is not anuric. Admitting potassium 4.3. Mild congestive failure on x-ray; no hypoxia Nephrology consulted -compelted dialysis session on 04/26/2024. Continue sevelamer Last echo with EF 55 to 60%, no regional wall motion abnormalities. Congestive overload and bilateral effusions due to ESRD/HD dependence and are likely transudative; thora deferred. (4) Atrial fibrillation: Plan: A-fib A-fib, rate 73 on admission. No acute territorial ST segment changes Continue Eliquis Continue metoprolol (5) Sacral decubitus ulcer, stage IV: Plan: - Follows with woudn care - REmains with stage IV sacral wound with vac in place at home but has been removed here in hosptial - Wound care consulted (6) Wheelchair dependent: Plan: history of aortic dissection s/p repair, but w/ Subsequent spinal ischemia neurogenic bladder, paraplegia with scooter at baseline with chronic Willingham for neurogenic bladder Plan DVT prophylaxis: Anticoagulated Diet: Heart healthy Disposition: Medical/surgical, continued stay, will need SNF placement CODE STATUS: Full code Admission and Anticipated Discharge Date Admission Date: April 25, 2024 Subjective Pt reports a cough productive of clear sputum. Otherwise no real complaints except generalized weakness. Is eating and drinking. He had HD today Physical Exam Constitutional: WD/WN, vitals as above Respiratory: normal respiratory effort, lungs clear to auscultation Cardiovascular: Rate/Rhythm: regular rate and + irregularly irregular Heart Sounds: + murmur (2/6 IVA at RUSB) Gastrointestinal (Abdomen): normal bowel sounds, soft, nontender, no hepatosplenomegaly Psychiatric: A+Ox3, euthymic affect Results & Data Results & Data Vital Signs (Past 12 Hours) Vital Signs Temp Pulse Pulse Pulse Resp BP BP 04/26/24 13:58 91 H 16 158/92 H 04/26/24 13:17 37.0 C 78 142/83 H 04/26/24 13:00 69 137/86 04/26/24 12:30 59 L 137/72 04/26/24 12:00 73 125/76 04/26/24 11:30 73 127/76 04/26/24 11:00 67 105/70 04/26/24 10:30 58 L 123/76 04/26/24 10:02 36.9 C 70 04/26/24 07:43 37.2 C 74 16 137/75 Pulse Ox O2 Del Method 04/26/24 13:58 96 Room Air 04/26/24 13:17 04/26/24 13:00 04/26/24 12:30 04/26/24 12:00 04/26/24 11:30 04/26/24 11:00 04/26/24 10:30 04/26/24 10:02 04/26/24 07:43 93 Room Air Laboratory Results CBC, BMP, LFTs, UA reviewed PG Care Time/CCT Total # of Minutes Spent Total Time Spent with Patient: Total time spent is greater than 50% in coordination of care (as documented) at patient's floor/unit and/or counseling patient: Coding Level of Care Code 45482 SUB INP/OBS CARE 2/35MIN Diagnoses Weakness R53.1 Adenovirus infection B34.0 ESRD (end stage renal disease) on dialysis N18.6; Z99.2 Permanent atrial fibrillation I48.2 Atrial fibrillation type: permanent Sacral decubitus ulcer, stage IV L89.154 Wheelchair dependent Z99.3 (4) Atrial fibrillation Atrial fibrillation type: permanent Qualified Code(s): I48.2 - Chronic atrial fibrillation
[2024-04-27 06:01] LABS: Basophils # (auto) 0.06 K/uL (0.00-0.20); Basophils % (auto) 1.2 %; Eosinophils # (auto) 0.46 K/uL (0.00-0.50); Eosinophils % (auto) 9.5 %; Hematocrit (blood only) 30.5 % (42.0-52.0); Hemoglobin 9.7 g/dl (14.0-18.0); Immature Granulocytes # (auto) 0.01 K/uL (0.01-0.20); Immature Granulocytes % (auto) 0.2 %; Lymphocytes # (auto) 0.79 K/uL (1.20-3.40); Lymphocytes % (auto) 16.4 %; Mean Corpuscular Hemoglobin 32.8 pg (25.0-34.0); Mean Corpuscular Hgb Conc 31.8 g/dL (32.0-36.0); Mean Platelet Volume 8.9 fL (9.4-12.4); Monocytes # (auto) 0.66 K/uL (0.11-0.59); Monocytes % (auto) 13.7 %; Neutrophils # (auto) 2.84 K/uL (1.40-6.50); Platelet Count 140 K/uL (130-400); RDW Coefficient of Variation 17.1 % (11.5-14.5); RDW Standard Deviation 64.3 fL (36.4-46.3); Red Blood Count 2.96 M/uL (4.70-6.10); White Blood Count 4.82 K/ul (4.8-10.8)
[2024-04-27 06:26] LABS: BUN Creatinine Ratio 8.8 (10-20); Calcium 8.5 mg/dl (8.6-10.3); Creatinine Clr Calc Pharmacy 17.1 ml/min; Est GFR (African American) 15.9 ml/min; Est GFR (Non-African American) 13.7 ml/min
[2024-04-27] MEDS: ACETAMINOPHEN 325 MG TAB PO PRN (08:02)
--- NOTE | 2024-04-27 08:31 | Hospitalist Progress Note ---
Date of Service April 27, 2024 Assessment & Plan (1) Weakness: Plan: Weakness, acute on chronic possibly a component of metabolic encephalopathy Adenovirus positive, chest x-ray with evidence of congestive failure -Urine did grow both Pseudomonas and Klebsiella initiating renal dosed cefepime therapy Multifactorial chronic weakness with aortic dissection resulting in spinal ischemia with paraplegia and motor scooter requirement, chronic deconditioning and decline, chronic sacral decubitus poa, anemia of chronic disease acutely worse with adenovirus and mild volume overload. He is normally able to transfer the sense of his however has become too weak to do this. As patient is no longer able to transfer at home even with assistance will require optimization and potentially a higher level of care. PT/OT recommending rehab placement (2) Adenovirus infection: Plan: Adenovirus Supportive care No leukocytosis, afebrile-no antibiotics needed No hypoxia (3) ESRD (end stage renal disease) on dialysis: Plan: ESRD on HD HD dependent via left brachiocephalic AV fistula. He is not anuric. Admitting potassium 4.3. Mild congestive failure on x-ray; no hypoxia Nephrology consulted -completed dialysis session on 04/26/2024. Continue sevelamer Last echo with EF 55 to 60%, no regional wall motion abnormalities. Congestive overload and bilateral effusions due to ESRD/HD dependence and are likely transudative; thora deferred. (4) Atrial fibrillation: Plan: A-fib rate controlled on admission. No acute territorial ST segment changes Continue Eliquis Continue metoprolol (5) Sacral decubitus ulcer, stage IV: Plan: - Follows with wound care - Remains with stage IV sacral wound with vac in place at home but has been removed here in hospital - Wound care consulted (6) Wheelchair dependent: Plan: history of aortic dissection s/p repair, but w/ Subsequent spinal ischemia neurogenic bladder, paraplegia with scooter at baseline with chronic Willingham for neurogenic bladder Plan DVT prophylaxis: Anticoagulated Diet: Heart healthy CODE STATUS: Full code Admission and Anticipated Discharge Date Admission Date: April 25, 2024 Subjective Patient states he feels somewhat improved still is fairly weak Although diagnosed with a urinary tract infection makes very little urine however his metabolic encephalopathy could be explained by his adenovirus infection but will treat a bacterial urinary infection on the last since he does make urine Physical Exam Physical Exam: Awake alert appropriate card exam is regular lungs are clear extremities are without edema Results & Data Results & Data Vital Signs (Past 12 Hours) Vital Signs Temp Pulse Resp BP Pulse Ox O2 Del Method 04/27/24 07:25 97.7 F 74 15 150/83 H 94 Room Air Laboratory Results Reviewed CBC reviewed chemistry PG Care Time/CCT Total # of Minutes Spent Total Time Spent with Patient: Total time spent is greater than 50% in coordination of care (as documented) at patient's floor/unit and/or counseling patient: Coding Level of Care Code 97590 SUB INP/OBS CARE 3/50MIN Diagnoses Weakness R53.1 Adenovirus infection B34.0 ESRD (end stage renal disease) on dialysis N18.6; Z99.2 Permanent atrial fibrillation I48.2 Atrial fibrillation type: permanent Sacral decubitus ulcer, stage IV L89.154 Wheelchair dependent Z99.3 (4) Atrial fibrillation Atrial fibrillation type: permanent Qualified Code(s): I48.2 - Chronic atrial fibrillation
--- NOTE | 2024-04-27 09:58 | Nephrology Progress Note ---
Date of Service April 27, 2024 Assessment & Plan (1) ESRD (end stage renal disease) on dialysis: Plan: HD MWF. AVF has been functioning well. Completed HD yesterday with adequate UF and clearance. Outpatient HD Rx has been MWF 3h 15m on a 180 optiflux at Qb 450 Qd 800, 3 K, 2.5 calcium. EDW 79.5 kg. Midodrine pre-HD. Medications appropriately dosed for kidney function. Low potassium diet. Continue daily renal MVI. Sevelamer QA. Document I/O's. Repeat metabolic profile tomorrow AM. (2) Anemia of chronic disease: Plan: Chronic, stable. Maintained on Micera Q2 weeks at HD. Epogen 55109 units provided with HD yesterday.. (3) Adenovirus infection: Plan: Symptomatic management. (4) Sacral decubitus ulcer, stage IV: Plan: Wound care consult pending. PT/OT --> anticipated outpatient rehab/SNF needs. Admission and Anticipated Discharge Date Admission Date: April 25, 2024 Subjective No acute events overnight. No complications with dialysis. Sylvester tolerated treatment well yesterday. He reports some notable fatigue this AM but he otherwise feels well. No fluid retention or edema. No fevers or chills. Review of Systems Review of Systems: All systems reviewed & are unremarkable except as noted in HPI & below Physical Exam Constitutional: well developed and + thin; no acute distress Eyes: + anicteric sclerae ENMT: Mouth: no oral mucosal abnormality and oral mucous membranes not dry Neck: normal visual inspection and trachea midline Respiratory: normal respiratory effort Cardiovascular: Rate/Rhythm: regular rate Heart Sounds: normal S1 and normal S2 Extremities: + AV fistula; no edema Musculoskeletal: Extremities: no cyanosis and no clubbing Skin: no jaundice Neurologic: Motor/Sensory: no tremor and no asterixis Psychiatric: Orientation: alert and oriented x 3 Results & Data Vital Signs (Past 12 Hours) Vital Signs Temp Pulse Resp BP Pulse Ox O2 Del Method 04/27/24 08:15 Room Air 04/27/24 07:25 36.5 C 74 15 150/83 H 94 Room Air Laboratory Results Laboratory Results - last 24 hr 04/26/24 04/26/24 04/27/24 00:00 09:23 05:44 WBC 4.82 RBC 2.96 L Hgb 9.7 L Hct 30.5 L MCV 103.0 H MCH 32.8 MCHC 31.8 L RDW Std Deviation 64.3 H RDW Coeff of Hector 17.1 H Plt Count 140 MPV 8.9 L Immature Gran % (Auto) 0.2 Neut % (Auto) 59.0 Lymph % (Auto) 16.4 [place] % (Auto) 13.7 Eos % (Auto) 9.5 Baso % (Auto) 1.2 Neut # (Auto) 2.84 Lymph # (Auto) 0.79 L [place] # (Auto) 0.66 H Eos # (Auto) 0.46 Baso # (Auto) 0.06 Immature Gran # (Auto) 0.01 Sodium 135 L Potassium 4.0 Chloride 96 L Carbon Dioxide 31 Anion Gap 8 BUN 35 H D Creatinine 3.96 H D Est Cr Clr Drug Dosing 17.1 Est GFR ( Amer) 15.9 Est GFR (Non-Af Amer) 13.7 BUN/Creatinine Ratio 8.8 L Glucose 83 Calcium 8.5 L Procalcitonin 0.48 Nasal Screen MRSA (PCR) Negative PG Care Time/CCT Total # of Minutes Spent Total Time Spent with Patient: Total time spent is greater than 50% in coordination of care (as documented) at patient's floor/unit and/or counseling patient: Coding Level of Care Code 30472 SUB INP/OBS CARE 3/50MIN Diagnoses ESRD (end stage renal disease) on dialysis N18.6; Z99.2 Anemia of chronic disease D63.8 Adenovirus infection B34.0 Sacral decubitus ulcer, stage IV L89.154
[2024-04-27] MEDS: CEFEPIME 2,000 MG in SYRINGE 0 ML IV ONE (18:03)
[2024-04-27] MEDS: MIRTAZAPINE TAB 15 MG TAB PO SCH (20:08)
[2024-04-28] MEDS: CEFEPIME 1,000 MG in SYRINGE 0 ML IV SCH ×2 (04:31→21:04)
[2024-04-28 09:54] LABS: Basophils # (auto) 0.05 K/uL (0.00-0.20); Eosinophils # (auto) 0.43 K/uL (0.00-0.50); Hematocrit (blood only) 31.2 % (42.0-52.0); Hemoglobin 10.1 g/dl (14.0-18.0); Immature Granulocytes # (auto) 0.02 K/uL (0.01-0.20); Immature Granulocytes % (auto) 0.4 %; Lymphocytes # (auto) 0.76 K/uL (1.20-3.40); Lymphocytes % (auto) 15.9 %; Mean Corpuscular Hemoglobin 32.6 pg (25.0-34.0); Mean Corpuscular Hgb Conc 32.4 g/dL (32.0-36.0); Mean Corpuscular Volume 100.6 fL (80.0-100.0); Mean Platelet Volume 9.1 fL (9.4-12.4); Monocytes # (auto) 0.39 K/uL (0.11-0.59); Monocytes % (auto) 8.1 %; Neutrophils # (auto) 3.14 K/uL (1.40-6.50); Neutrophils % (auto) 65.6 %; Platelet Count 154 K/uL (130-400); RDW Coefficient of Variation 16.7 % (11.5-14.5); RDW Standard Deviation 61.8 fL (36.4-46.3); White Blood Count 4.79 K/ul (4.8-10.8)
[2024-04-28 10:11] LABS: BUN Creatinine Ratio 9.2 (10-20); Calcium 8.6 mg/dl (8.6-10.3); Creatinine Clr Calc Pharmacy 13.3 ml/min; Est GFR (African American) 11.7 ml/min; Est GFR (Non-African American) 10.1 ml/min; Potassium 4.3 mmol/L (3.5-5.1)
--- NOTE | 2024-04-28 10:35 | Nephrology Progress Note ---
Date of Service April 28, 2024 Assessment & Plan (1) ESRD (end stage renal disease) on dialysis: Plan: HD MWF. AVF has been functioning well. Orders for HD today were entered into the EHR and reviewed with the helper teacher. Outpatient HD Rx has been MWF 3h 15m on a 180 optiflux at Qb 450 Qd 800, 3 K, 2.5 calcium. EDW 79.5 kg. Midodrine pre-HD. Medications appropriately dosed for kidney function. Low potassium diet. Continue daily renal MVI. Sevelamer QAC. Document I/O's. Repeat metabolic profile tomorrow AM. (2) Anemia of chronic disease: Plan: Chronic, stable. Maintained on Micera Q2 weeks at HD. Epogen 30034 units provided with HD on 04/26. (3) Adenovirus infection: Plan: Clinically improving. (4) Sacral decubitus ulcer, stage IV: Plan: Wound care consult. Anticipated outpatient rehab/SNF needs. Admission and Anticipated Discharge Date Admission Date: April 25, 2024 Subjective No acute events overnight. Sylvester was seen and evaluated during hemodialysis this AM. He is tolerating treatment well. He reports persistent fatigue. No fevers or chills. Denies dyspnea. Review of Systems Review of Systems: All systems reviewed & are unremarkable except as noted in HPI & below Physical Exam Constitutional: well developed and + thin; no acute distress Eyes: + anicteric sclerae ENMT: Mouth: no oral mucosal abnormality and oral mucous membranes not dry Neck: normal visual inspection and trachea midline Respiratory: normal respiratory effort Cardiovascular: Rate/Rhythm: regular rate Heart Sounds: normal S1 and n ormal S2 Extremities: + AV fistula; no edema Musculoskeletal: Extremities: no cyanosis and no clubbing Skin: no jaundice Neurologic: Motor/Sensory: no tremor and no asterixis Psychiatric: Orientation: alert and oriented x 3 Results & Data Vital Signs (Past 12 Hours) Vital Signs Temp Pulse Pulse Pulse Resp BP BP 04/28/24 09:30 78 121/86 04/28/24 09:05 69 142/81 H 04/28/24 08:55 36.5 C 94 H 04/28/24 07:26 36.7 C 66 16 151/85 H 04/27/24 22:55 36.7 C 94 H 18 154/90 H Pulse Ox O2 Del Method 04/28/24 09:30 04/28/24 09:05 04/28/24 08:55 04/28/24 07:26 96 Room Air 04/27/24 22:55 98 Room Air Laboratory Results Laboratory Results - last 24 hr 04/28/24 09:26 WBC 4.79 L RBC 3.10 L Hgb 10.1 L Hct 31.2 L MCV 100.6 H MCH 32.6 MCHC 32.4 RDW Std Deviation 61.8 H RDW Coeff of Hector 16.7 H Plt Count 154 MPV 9.1 L Immature Gran % (Auto) 0.4 Neut % (Auto) 65.6 Lymph % (Auto) 15.9 [place] % (Auto) 8.1 Eos % (Auto) 9.0 Baso % (Auto) 1.0 Neut # (Auto) 3.14 Lymph # (Auto) 0.76 L [place] # (Auto) 0.39 Eos # (Auto) 0.43 Baso # (Auto) 0.05 Immature Gran # (Auto) 0.02 Sodium 131 L Potassium 4.3 Chloride 94 L Carbon Dioxide 25 Anion Gap 12 H BUN 47 H Creatinine 5.10 H* D Est Cr Clr Drug Dosing 13.3 Est GFR ( Amer) 11.7 Est GFR (Non-Af Amer) 10.1 BUN/Creatinine Ratio 9.2 L Glucose 161 H Calcium 8.6 PG Care Time/CCT Total # of Minutes Spent Total Time Spent with Patient: Total time spent is greater than 50% in coordination of care (as documented) at patient's floor/unit and/or counseling patient: Coding Level of Care Code 50972 SUB INP/OBS CARE 3/50MIN Diagnoses ESRD (end stage renal disease) on dialysis N18.6; Z99.2 Anemia of chronic disease D63.8 Adenovirus infection B34.0 Sacral decubitus ulcer, stage IV L89.154
--- NOTE | 2024-04-28 14:29 | Hospitalist Progress Note ---
Date of Service April 28, 2024 Assessment & Plan (1) Weakness: Plan: Weakness, acute on chronic possibly a component of metabolic encephalopathy Adenovirus positive, chest x-ray with evidence of congestive failure -Urine did grow both Pseudomonas and Klebsiella initiating renal dosed cefepime therapy UTI due to chronic crowe catheter Multifactorial chronic weakness with aortic dissection resulting in spinal ischemia with paraplegia and motor scooter requirement, chronic deconditioning and decline, chronic sacral decubitus poa, anemia of chronic disease acutely worse with adenovirus and mild volume overload. He is normally able to transfer the sense of his however has become too weak to do this. As patient is no longer able to transfer at home even with assistance will require optimization and potentially a higher level of care. PT/OT recommending rehab placement (2) Adenovirus infection: Plan: Adenovirus Supportive care No leukocytosis, afebrile-no antibiotics needed No hypoxia (3) ESRD (end stage renal disease) on dialysis: Plan: ESRD on HD HD dependent via left brachiocephalic AV fistula. He is not anuric. Admitting potassium 4.3. Mild congestive failure on x-ray; no hypoxia, not hf on presentation Nephrology consulted -completed dialysis session on 04/26/2024. Continue sevelamer Last echo with EF 55 to 60%, no regional wall motion abnormalities. Congestive overload and bilateral effusions due to ESRD/HD dependence and are likely transudative; thora deferred. (4) Atrial fibrillation: Plan: A-fib rate controlled on admission. No acute territorial ST segment changes Continue Eliquis Continue metoprolol (5) Sacral decubitus ulcer, stage IV: Plan: - Follows with wound care - Remains with stage IV sacral wound with vac in place at home but has been removed here in hospital - Wound care consulted (6) Wheelchair dependent: Plan: history of aortic dissection s/p repair, but w/ Subsequent spinal ischemia neurogenic bladder, paraplegia with scooter at baseline with chronic Crowe for neurogenic bladder Plan DVT prophylaxis: Anticoagulated Diet: Heart healthy CODE STATUS: Full code Admission and Anticipated Discharge Date Admission Date: April 25, 2024 Subjective pt tolerated dialysis, no new complaints still weakened, treating uti catheter associated poa Physical Exam Physical Exam: awake and alert eating well cardiac is regular lungs are clear Results & Data Results & Data Vital Signs (Past 12 Hours) Vital Signs Temp Pulse Pulse Pulse Resp BP BP 04/28/24 13:05 98.2 F 80 16 144/86 H 04/28/24 13:00 97.7 F 75 126/84 04/28/24 12:30 63 116/87 04/28/24 12:00 77 126/83 04/28/24 11:30 69 131/82 04/28/24 11:00 61 119/74 04/28/24 10:30 78 117/76 04/28/24 10:00 68 112/81 04/28/24 09:30 78 121/86 04/28/24 09:05 69 142/81 H 04/28/24 08:55 97.7 F 94 H 04/28/24 08:40 04/28/24 07:26 98.1 F 66 16 151/85 H Pulse Ox O2 Del Method 04/28/24 13:05 95 Room Air 04/28/24 13:00 04/28/24 12:30 04/28/24 12:00 04/28/24 11:30 04/28/24 11:00 04/28/24 10:30 04/28/24 10:00 04/28/24 09:30 04/28/24 09:05 04/28/24 08:55 04/28/24 08:40 Room Air 04/28/24 07:26 96 Room Air Laboratory Results review cbc review chemistry PG Care Time/CCT Total # of Minutes Spent Total Time Spent with Patient: Total time spent is greater than 50% in coordination of care (as documented) at patient's floor/unit and/or counseling patient: Coding Level of Care Code 28348 SUB INP/OBS CARE 2/35MIN Diagnoses Weakness R53.1 Adenovirus infection B34.0 ESRD (end stage renal disease) on dialysis N18.6; Z99.2 Permanent atrial fibrillation I48.2 Atrial fibrillation type: permanent Sacral decubitus ulcer, stage IV L89.154 Wheelchair dependent Z99.3 (4) Atrial fibrillation Atrial fibrillation type: permanent Qualified Code(s): I48.2 - Chronic atrial fibrillation
--- NOTE | 2024-04-29 10:27 | Nephrology Progress Note ---
Date of Service April 29, 2024 Assessment & Plan (1) ESRD (end stage renal disease) on dialysis: Plan: HD MWF. AVF functioning well. Completed treatment yesterday with adequate UF and clearance. Outpatient HD Rx has been MWF 3h 15m on a 180 optiflux at Qb 450 Qd 800, 3 K, 2.5 calcium. EDW 79.5 kg. Midodrine pre-HD. Medications appropriately dosed for kidney function. Low potassium diet. Continue daily renal MVI. Sevelamer QA. Document I/O's. Repeat metabolic profile tomorrow AM. (2) Anemia of chronic disease: Plan: Chronic, stable. Maintained on Micera Q2 weeks at HD. Epogen 20075 units provided with HD on 04/26. (3) Adenovirus infection: Plan: Clinically improving. (4) Sacral decubitus ulcer, stage IV: Plan: Wound care consult. Anticipated outpatient rehab/SNF needs. (5) UTI (urinary tract infection): Plan: Pseudomonas and Klebsiella from urine culture. Perry should be exchanged. Cefepime has been dosed appropriately for IHD. Admission and Anticipated Discharge Date Admission Date: April 25, 2024 Subjective No acute events overnight. No complaints this AM. Denies fevers or chills. Perry draining slightly cloudy, pale yellow urine. No discomfort or burning with Perry. Sylvester feels well. HD yesterday was completed without complications. Review of Systems Review of Systems: All systems reviewed & are unremarkable except as noted in HPI & below Physical Exam Constitutional: well developed and + thin; no acute distress Eyes: + anicteric sclerae ENMT: Mouth: no oral mucosal abnormality and oral mucous membranes not dry Neck: normal visual inspection and trachea midline Respiratory: normal respiratory effort Cardiovascular: Rate/Rhythm: regular rate Heart Sounds: normal S1 and normal S2 Extremities: + AV fistula; no edema Musculoskeletal: Extremities: no cyanosis and no clubbing Skin: no jaundice Neurologic: Motor/Sensory: no tremor and no asterixis Psychiatric: Orientation: alert and oriented x 3 Results & Data Vital Signs (Past 12 Hours) Vital Signs Temp Pulse Resp BP Pulse Ox O2 Del Method 04/29/24 08:40 36.5 C 83 18 122/65 97 Room Air 04/29/24 07:25 Room Air 04/29/24 00:10 Room Air PG Care Time/CCT Total # of Minutes Spent Total Time Spent with Patient: Total time spent is greater than 50% in coordination of care (as documented) at patient's floor/unit and/or counseling patient: Coding Level of Care Code 40680 SUB INP/OBS CARE 3/50MIN Diagnoses ESRD (end stage renal disease) on dialysis N18.6; Z99.2 Anemia of chronic disease D63.8 Adenovirus infection B34.0 Sacral decubitus ulcer, stage IV L89.154 UTI (urinary tract infection) N39.0
[2024-04-29 14:41] VITALS: RESP 16
--- NOTE | 2024-04-29 17:25 | Hospitalist Progress Note ---
Date of Service April 29, 2024 Assessment & Plan (1) Weakness: Plan: Weakness, acute on chronic possibly a component of metabolic encephalopathy Adenovirus positive, chest x-ray with evidence of congestive failure from volume overload from rsrd -Urine did grow both Pseudomonas and Klebsiella initiating renal dosed cefepime therapy- one week course, LD 05/05/24 UTI due to chronic crowe catheter pre illness, Multifactorial chronic weakness with aortic dissection resulting in spinal ischemia with paraplegia and motor scooter requirement, chronic deconditioning and decline, chronic sacral decubitus poa, anemia of chronic dis ease all issues now acutely worse with adenovirus, bacterial uti He is normally able to transfer the sense of his however has become too weak to do this. As patient is no longer able to transfer at home even with assistance will require optimization and potentially a higher level of care. PT/OT recommending rehab placement (2) Adenovirus infection: Plan: Adenovirus Supportive care No leukocytosis, afebrile-no antibiotics needed No hypoxia (3) ESRD (end stage renal disease) on dialysis: Plan: ESRD on HD HD dependent via left brachiocephalic AV fistula. He is not anuric. Admitting potassium 4.3. Mild congestive failure on x-ray; no hypoxia, not hf on presentation Nephrology consulted -completed dialysis session on 04/26/2024. Continue sevelamer Last echo with EF 55 to 60%, no regional wall motion abnormalities. Conges tive overload and bilateral effusions due to ESRD/HD dependence and are likely transudative; thora deferred. (4) Atrial fibrillation: Plan: A-fib rate controlled on admission. No acute territorial ST segment changes Continue Eliquis Continue metoprolol (5) Sacral decubitus ulcer, stage IV: Plan: - Follows with wound care - Remains with stage IV sacral wound with vac in place at home but has been removed here in hospital - Wound care consulted (6) Wheelchair dependent: Plan: history of aortic dissection s/p repair, but w/ Subsequent spinal ischemia neurogenic bladder, paraplegia with scooter at baseline with chronic Crowe for neurogenic bladder Plan DVT prophylaxis: Anticoagulated Diet: Heart healthy CODE STATUS: Full code Admission and Anticipated Discharge Date Admission Date: April 25, 2024 Subjective No acute events overnight. No complaints this AM. Crowe draining slightly cloudy, pale yellow urine. still with weakness preventing return to home, expect from metabolic enephalopathy poa Physical Exam Physical Exam: awake and alert eating well cardiac is regular lungs are clear Results & Data Results & Data Vital Signs (Past 12 Hours) Vital Signs Temp Pulse Pulse Resp BP Pulse Ox O2 Del Method 04/29/24 14:39 98.8 F 66 16 118/68 95 Room Air 04/29/24 08:40 97.7 F 83 18 122/65 97 Room Air 04/29/24 07:25 Room Air PG Care Time/CCT Total # of Minutes Spent Total Time Spent with Patient: Total time spent is greater than 50% in coordination of care (as documented) at patient's floor/unit and/or counseling patient: Coding Level of Care Code 16416 SUB INP/OBS CARE 2/35MIN Diagnoses Weakness R53.1 Adenovirus infection B34.0 ESRD (end stage renal disease) on dialysis N18.6; Z99.2 Permanent atrial fibrillation I48.2 Atrial fibrillation type: permanent Sacral decubitus ulcer, stage IV L89.154 Wheelchair dependent Z99.3 (4) Atrial fibrillation Atrial fibrillation type: permanent Qualified Code(s): I48.2 - Chronic atrial fibrillation
[2024-04-29] MEDS: CEFEPIME 1000MG 1,000 MG/10 ML SYR IV SCH (20:10)
--- NOTE | 2024-04-30 09:50 | Nephrology Progress Note ---
Date of Service April 30, 2024 Assessment & Plan (1) ESRD (end stage renal disease) on dialysis: Plan: HD MWF. AVF has been functioning well. Orders for HD were entered into the EHR and reviewed with the patient advocate. Sylvester was seen and evaluated while treatment w as being started. Outpatient HD Rx has been MWF 3h 15m on a 180 optiflux at Qb 450 Qd 800, 3 K, 2.5 calcium. EDW 79.5 kg. Midodrine pre-HD. Medications appropriately dosed for kidney function. Low potassium diet. Continue daily renal MVI. Sevelamer QAC. Document I/O's. Repeat metabolic profile tomorrow AM. (2) Anemia of chronic disease: Plan: Chronic, stable. Maintained on Micera Q2 weeks at HD. Epogen 06948 units provided with HD on 04/26. (3) Adenovirus infection: (4) Sacral decubitus ulcer, stage IV: Plan: Referrals have been made to [facility] and [facility]. (5) UTI (urinary tract infection): Plan: Remains on cefepime. Admission and Anticipated Discharge Date Admission Date: April 25, 2024 Subjective No acute events overnight. No complaints this AM. Sylvester was seen and evaluated prior to hemodialysis. No fevers or chills. He is breathing comfortably. Some weakness persists. He continues to feel tired despite sleeping most of the day and night. Review of Systems Review of Systems: All systems reviewed & are unremarkable except as noted in HPI & below Physical Exam Constitutional: well developed and + thin; no acute distress Eyes: + anicteric sclerae ENMT: Mouth: no oral mucosal abnormality and oral mucous membranes not dry Neck: normal visual inspection and trachea midline Respiratory: normal respiratory effort Cardiovascular: Rate/Rhythm: regular rate Heart Sounds: normal S1 and normal S2 Extremities: + AV fistula; no edema Musculoskeletal: Extremities: no cyanosis and no clubbing Skin: no jaundice Neurologic: Motor/Sensory: no tremor and no asterixis Psychiatric: Orientation: alert and oriented x 3 Results & Data Vital Signs (Past 12 Hours) Vital Signs Temp Pulse Resp BP Pulse Ox O2 Del Method 04/30/24 08:27 37.3 C 98 H 16 124/65 94 Room Air Laboratory Results Pending PG Care Time/CCT Total # of Minutes Spent Total Time Spent with Patient: Total time spent is greater than 50% in coordination of care (as documented) at patient's floor/unit and/or counseling patient: Coding Level of Care Code 40266 SUB INP/OBS CARE MIN Diagnoses ESRD (end stage renal disease) on dialysis N18.6; Z99.2 Anemia of chronic disease D63.8 Adenovirus infection B34.0 Sacral decubitus ulcer, stage IV L89.154 UTI (urinary tract infection) N39.0
[2024-04-30 10:22] LABS: Hematocrit (blood only) 30.8 % (42.0-52.0); Hemoglobin 9.5 g/dl (14.0-18.0)
[2024-04-30 10:35] LABS: Albumin Level 3.2 gm/dl (3.4-5.0); BUN Creatinine Ratio 9.5 (10-20); Calcium 8.3 mg/dl (8.6-10.3); Creatinine Clr Calc Pharmacy 14.1 ml/min; Phosphorus 3.8 mg/dl (2.5-4.9); Potassium 4.3 mmol/L (3.5-5.1)
--- NOTE | 2024-04-30 14:29 | Discharge Summary ---
Discharge Summary Date of Service April 30, 2024 Principal Dx & Hospital Course #1 = Principal Diagnosis (1) UTI (urinary tract infection): (2) Adenovirus infection: (3) Weakness: (4) ESRD (end stage renal disease) on dialysis: (5) Neurogenic bladder: (6) Atrial fibrillation: (7) Sacral decubitus ulcer, stage IV: (8) History of CHF (congestive heart failure): Plan 78-year-old male with past medical history of end-stage renal disease on hemodialysis Friday, stage IV decubitus ulcer, AAA, anemia of chronic kidney disease, colostomy, atrial fibrillation on apixaban, neurogenic bladder with chronic indwelling Perry catheter presented to the hospital with worsening weakness with his being unable to transfer him at home. He was found to be positive for adenovirus and also was found to have a UTI in setting of neurogenic bladder with chronic Perry #Neurogenic bladder #UTI in the setting of chronic Perry catheter, present on admission Urine culture grew Pseudomonas aeruginosa and Klebsiella oxytocin Blood cultures have been negative Patient was started on IV cefepime and will finish a 1 week course of IV cefepime 1 g daily with end of therapy/last dose 05/05/2024 He will get a ultrasound-guided peripheral IV inserted prior to discharge and this can be removed after he finishes his 7-day course of cefepime at acute rehab Nephrology has recommended changing Perry catheter: He will get a Perry catheter change prior to discharge and he will need Perry catheter changed every 4 weeks to avoid further infections #Adenovirus infection Patient has been afebrile with no hypoxia Supportive care #End-stage renal disease on hemodialysis Friday #Anemia of chronic kidney disease Nephrology is following the patient for dialysis He received dialysis today and will be discharged to acute rehab and will continue with dialysis Friday and on a low potassium/hemodialysis diet Maintained on Micera Q2 weeks at HD. Epogen 69738 units provided with HD on 04/26. #Chronic atrial fibrillation on anticoagulation with Eliquis #Chronic diastolic congestive heart failure with preserved ejection fraction of 55% Patient is dialysis dependent for fluid removal Echo shows EF of 55 to 3% with no regional wall motion abnormalities Patient is saturating well on room air and is currently not in heart failure Continue apixaban 2.5 mg p.o. twice daily Continue Toprol-XL 25 mg p.o. daily #Stage IV decubitus ulcer, present on admission He will continue with wound care at acute rehab #Debility/weakness Seen by PT OT and recommended acute rehab on discharge Patient seen and examined today and he is stable for discharge to acute rehab I have gone over the discharge care plan with the patient and also updated his Gabbi ([phone]) on the phone and answered all the questions This discharge took greater than 30 minutes to coordinate Admission HPI Per Admitting Provider Guanaco is a 78-year-old male with a past medical history of ESRD on dialysis, CKD, MDD, sacral decubitus ulcer, anemia of chronic disease, AAA, colostomy, and A-fib on Eliquis who presents to the ER with several days of adductive cough and weakness. Was recently discharged 04/19/2024 after an admission for constipation. Patient has had progressive weakness to the point where his is no longer able to help him transfer at home. Patient is seen with his at bedside. Patient reports he has had several days of a minimally productive cough for whitish sputum. Has had increased weakness and shortness of breath. Has felt a little cold and chilly, no fevers. No change in urinary output. No abdominal pain. No chest pressure or chest pain. Generally does not get fevers even when he has a bacterial pneumonia. He is dialysis dependent but still makes ~200-400cc urine daily. Does not take lasix or any fluids medications. This was discontinued many years ago, but has not been used since he was put on dialysis. No history of CHF. He has had no leg swelling or edema. No change in medications. Unfortunately he is normally able to help transfer from the wheelchair but he is currently too weak to do so and is not able to remain home due to increased care needs at this time. Discharge Exam General: No acute distress Psych: Awake and alert HEENT: Anicteric sclera, moist oral mucosa CVS: irregular rate and rhythm, systolic murmur audible Lungs: Bilateral air entry, no wheezing noted Abdomen: Soft, nontender, no rebound, no guarding Ext: No lower extremity edema, no calf tenderness Discharge Plan Discharge Items Patient Disposition: Transfer Inpatient Rehab Fac Reason For Visit: WEAKNESS, ADENOVIRUS Discharge Diagnosis: Adenovirus infection Urinary tract infection in setting of chronic indwelling Perry catheter ESRD on hemodialysis Atrial fibrillation Chronic sacral decubitus ulcer stage IV, present on admission Debility/weakness Condition on Discharge: Fair Activity: As commented below Activity Comment: As tolerated with assistance Non-emergency contact: Primary Care Provider Call non-emergency contact if: you have any medication questions, your symptoms worsen and you have a fever Follow-up/Referrals: Carrillo Hou MD [Physician] - Jasiel Pineda DO [Primary Care Provider] - Diet: Dialysis Renal Addtl Attending Provider Instructions: DISCHARGE INSTRUCTION TO PATIENT/FAMILY/acute rehab/SNF: Follow-up with your primary care provider within 1 week regarding: Posthospital discharge, medication review, medication refills and follow-up on all your medical problems Please take all your discharge medications, discharge information and discharge instructions to all your doctors appointments. Avoid all NSAIDs including ibuprofen, Motrin, Advil, Aleve, naproxen, meloxicam, Toradol, diclofenac You have a chronic Perry catheter and you were found to have a urine infection. You are currently on cefepime 1 g IV daily until May 05, 2024. He will finish your last dose of antibiotic on May 05, 2024 and ultrasound-guided peripheral IV can be removed at that time at rehab. You will need a Perry catheter change every 4 weeks to avoid infection Follow-up with Dr. 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 upon discharge from acute rehab Out of bed to chair for all meals, no meals in bed Labs at acute rehab on 05/01/2024: CBC, CMP, CRP Pending Studies at Discharge: No Stand-Alone Forms: My [facility] Skilled Items Patient informed of condition?: Yes DNR: No Discharge Level of Care: Acute rehab Communicable Disease: No Discharge Prognosis: Stable Lines: Peripheral IV Urinary Catheter: Yes Medications and DC Order Prescriptions: New polyethylene glycol 3350 [Miralax] 17 gram Powder In Packet 17 g PO DAILY PRN (Reason: constipation) Qty: 5 0RF cefepime 1 gram recon soln 1 g IV DAILY Qty: 5 0RF Rx Instructions: LAST DOSE ON 05/05/24 Continued (DME) Power Wheelchair Device See Rx Instructions .Route Qty: 1 0RF Rx Instructions: POWER WHEELCHAIR, DX: R53.1, R26.2 (DME) Mattress (Air or other) Misc See Rx Instructions .Route Qty: 1 0RF Rx Instructions: alternating pressure mattress Eliquis 2.5 mg tablet 2.5 mg PO BID Qty: 180 3RF gabapentin 300 mg capsule 600 mg PO HS Qty: 180 5RF oxycodone-acetaminophen [Percocet] 5-325 mg tablet 1 tab PO Q6H PRN (Reason: pain) Qty: 30 0RF alprazolam 0.25 mg tablet 0.25 mg PO HS PRN (Reason: Anxiety/Panic attacks) Qty: 30 0RF cholecalciferol (vitamin D3) [Vitamin D3] 50 mcg (2,000 unit) Tablet 50 mcg PO QPM sevelamer carbonate 800 mg tablet See Rx Instructions .ROUTE .COMPLEX Rx Instructions: Per spouse: Patient is taking 2400mg by mouth with each meal. However, MD called (Nancie Marker) and states pt should be taking 1600mg with each meal and 800mg with each snack. atorvastatin 20 mg tablet 20 mg PO DAILY midodrine 5 mg tablet 5 mg PO 3XWK Rx Instructions: 30 mins prior to Dialysis metoprolol succinate 25 mg tablet extended release 24 hr 25 mg PO QAM Triphrocaps 1 mg capsule 1 cap PO QAM Changed mirtazapine 7.5 mg tablet 7.5 mg PO HS Qty: 60 2RF Discharge Orders: Discharge Order (Routine); Ordered 04/30/24 Ordered By: Godwin Sanchez Admission Data Admit Date/Time: 04/25/24 17:05 Attending Provider: Godwin Sanchez Admit Provider: Cuong Yeager Primary Care Provider: Jasiel Pineda Other Providers: Cuong Yeager; Gilbert Paul; [facility]; [facility] Hospital Stay Data Consultations 04/25/24 16:27 ED Decision to Admit Stat 04/25/24 21:54 Consult Nephrology Routine Diagnostic Imagining Performed 04/25/24 15:45 CT chest diagnostic wo con Stat Chest X-Ray 04/25/24 14:46 SINGLE VIEW CHEST CLINICAL HISTORY: Generalized weakness. FINDINGS: 2 AP, portable, upright chest radiographs are compared to study dated 04/12/2024. Correlation is made with chest CT dated 12/02/2023. The patient is status post midline sternotomy. The heart is markedly enlarged noting atherosclerotic calcification of the thoracic aorta. There is pulmonary vascular congestion. Atelectasis is noted at both lung bases. No airspace consolidation or large pleural effusion is identified. No pneumothorax is seen. The skeletal structures are osteopenic. The bony thorax is grossly intact. Surgical clips project over the right shoulder. IMPRESSION: Cardiomegaly with evidence of congestive failure. ACT 112: Negative or not required by law. Electronically signed by: Kasi Dai M.D. 04/25/2024 3:[address] 04/25/24 15:45 CT SCAN OF THE CHEST WITHOUT IV CONTRAST CLINICAL HISTORY: Cough and dyspnea COMPARISON STUDY: Chest x-ray dated 04/25/2024. Chest CT dated 12/02/2023 TECHNIQUE: CT scan of the thorax was performed from the thoracic inlet to the upper abdomen. Images are reviewed in the axial, sagittal, and coronal planes. IV contrast was not administered for this examination as per the referring clinician. A dose lowering technique was utilized adhering to the principles of ALARA. CT DOSE: 425.08 mGy.cm FINDINGS: Thyroid: Imaged portions of the thyroid gland are normal in size and attenuation. Thoracic aorta: Post surgical changes suggested in the aortic root. There is atherosclerotic calcification of the thoracic aorta, which is normal in caliber and demonstrates standard 3-vessel arch anatomy. Heart: The patient is status post midline sternotomy. The heart is markedly enlarged and without pericardial effusion. The coronary arteries and mitral annulus are densely calcified. There is diminished attenuation of the cardiac blood pool as compared to myocardium suggesting anemia. The pulmonary trunk is dilated, measuring 4.4 cm in diameter. This suggests pulmonary artery hypertension. Lungs and pleural spaces: Mild intralobular septal thickening suggests fluid overload/congestive change. There are eguvy-bi-uanmgrdc pleural effusions with dependent atelectasis. Asymmetric patchy airspace opacities are seen in the right upper lobe on image #67. There are scattered calcified granulomas. Secretions are noted in the trachea. A 6 cm right lower lobe pulmonary nodule on image #168 is unchanged. Mediastinum: There are numerous mildly enlarged mediastinal lymph nodes which measure up to 12 mm in short axis. Joyce: Not well assessed without IV contrast. Axillae: There is no axillary lymphadenopathy. Upper abdomen: The liver is cirrhotic in morphology and heterogeneous attenuation, noting nodularity of the surface contour. Postsurgical change is noted in the partially imaged stomach. Skeletal structures: The skeletal structures are osteopenic. Degenerative changes and kyphoscoliosis is noted in the thoracic spine. No lytic or blastic bony lesions are seen. IMPRESSION: 1. Cardiomegaly with evidence of congestive failure. 2. Small to moderate pleural effusions with dependent consolidation. 3. Patchy airspace opacities in the right upper lobe could represent a component of mild pulmonary edema and/or a mild infectious/inflammatory pneumonitis. Correlate clinically. Radiographic follow-up of these findings to resolution is recommended. 4. Mildly enlarged mediastinal left nodes are nonspecific and likely reactive. 5. Cirrhotic liver morphology. 6. Additional findings as above. ACT 112: Negative or not required by law. Electronically signed by: Kasi Dai M.D. 04/25/2024 6:18 PM Laboratory Results - last 48 hr 04/30/24 09:49 Hgb 9.5 L Hct 30.8 L Sodium 132 L Potassium 4.3 Chloride 100 Carbon Dioxide 22 Anion Gap 10 BUN 46 H Creatinine 4.82 H* Est Cr Clr Drug Dosing 14.1 eGFR 11.74 BUN/Creatinine Ratio 9.5 L Glucose 101 H Calcium 8.3 L Phosphorus 3.8 Albumin 3.2 L Pending Results Patient Have Any Pending Studies at Discharge: No Discharge Instructions Given to Patient (Per Discharging Provider) DISCHARGE INSTRUCTION TO PATIENT/FAMILY/acute rehab/SNF: Follow-up with your primary care provider within 1 week regarding: Posthospital discharge, medication review, medication refills and follow-up on all your medical problems Please take all your discharge medications, discharge information and discharge instructions to all your doctors appointments. Avoid all NSAIDs including ibuprofen, Motrin, Advil, Aleve, naproxen, meloxicam, Toradol, diclofenac You have a chronic Perry catheter and you were found to have a urine infection. You are currently on cefepime 1 g IV daily until May 05, 2024. He will finish your last dose of antibiotic on May 05, 2024 and ultrasound-guided peripheral IV can be removed at that time at rehab. You will need a Perry catheter change every 4 weeks to avoid infection Follow-up with Dr. 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 upon discharge from acute rehab Out of bed to chair for all meals, no meals in bed Labs at acute rehab on 05/01/2024: CBC, CMP, CRP Total Time Total Time Spent Total Time Spent (In Minutes): 40 minutes Total Time Includes: Examination of the Patient, Discharge Planning, Medication Reconciliation and Other Coding Level of Care Code 67847 INP/OBS DISCH >30 MIN Diagnoses UTI (urinary tract infection) N39.0 Adenovirus infection B34.0 Weakness R53.1 ESRD (end stage renal disease) on dialysis N18.6; Z99.2 Neurogenic bladder N31.9 Permanent atrial fibrillation I48.2 Atrial fibrillation type: permanent Sacral decubitus ulcer, stage IV L89.154 History of CHF (congestive heart failure) Z86.79
[2024-04-30 15:20] VITALS: BP 129/73; PULSE 78; TEMP 97.7; O2SAT 96
== END 2024-04-30 16:50 | DRG 698 ==
LOC: SUATTDRO → ED 14:17 → 3E 17:05 → SUATTDRO 17:05 → 3E 21:37

== ENCOUNTER 2024-05-22 13:11 | Inpatient (IN) ==
--- OUTSIDE RECORDS SUMMARY | 2024-05-22 13:17 | External Medical Summary ---
Author Name Unknown Address Unknown Organization K0G:LABORATORY [facility] [address] [place] [address] Laboratory Report Ordering Provider Test Date Status SAMEERA CONNER 05/15/2024 05:55:00 Final Observation Date Value Abnormality Reference (Units ) Status WBC, Total 05/15/2024 05:55:00 6.22 4.00-10.8 0 (K/uL) Final RBC 05/15/2024 05:55:00 3.05 4.50-5.25 (M/uL) Final Hemoglobin 05/15/2024 05:55:00 9.7 Below low normal 14 .0-16.8 (g/dL) Final HCT 05/15/2024 05:55:00 31.3 Below low normal 40. 0-48.4 (%) Final MCV 05/15/2024 05:55:00 102.6 82.0-99.5 (fL) Final MCH 05/15/2024 05:55:00 31.8 27.0-34.0 (pg) Final MCHC 05/15/2024 05:55:00 31.0 32.0-36.0 (g/dL) Final RDW 05/15/2024 05:55:00 14.9 11.5-15.5 (%) Final Platelets 05/15/2024 05:55:00 199 140-400 (K /uL) Final MPV 05/15/2024 05:55:00 9.0 6.6-11.1 ( fL) Final Performing Location LABORATORY [facility] [address] [place] [id number]
--- OUTSIDE RECORDS SUMMARY | 2024-05-22 13:17 | External Medical Summary ---
Author Name Unknown Address Unknown Organization K0G:[facility]ORY [place] [address] [place] [address] Laboratory Report Ordering Provider Test Date Status SAMEERA CONNER 05/08/2024 06:55:00 Final Observation Date Value Abnormality Reference (Units ) Status BUN 05/08/2024 06:55:00 33 Above high normal 6-20 (mg/dL) Final Creatinine 05/08/2024 06:55:00 3.8 Above high normal 0.6-1.2 (mg/dL) Final Glomerular filtration rate/1.73 sq M.predicted [Volume Rate/Area] in Serum, Plasma or Blood by Creatinine-based formula (CKD-EPI) 05/08/2024 06:55:00 16 Below low normal >=60 (mL/min) Final eGFR is calculated based on the CKD-EPI 2020 equation. Sodium 05/08/2024 06:55:00 136 135-146 (m mol/L) Final Potassium 05/08/2024 06:55:00 3.9 3.5-5.1 (m mol/L) Final Cl 05/08/2024 06:55:00 96 Below low normal 98- 107 (mmol/L) Final CO2 05/08/2024 06:55:00 29 22-32 (mmo l/L) Final Anion gap 05/08/2024 06:55:00 11 7-15 (mmol /L) Final Glucose 05/08/2024 06:55:00 76 70-120 (mg /dL) Final Calcium 05/08/2024 06:55:00 8.8 8.4-10.2 ( mg/dL) Final Performing Location LABORATORY [facility] [place] [address] [place] [address]
--- OUTSIDE RECORDS SUMMARY | 2024-05-22 13:17 | External Medical Summary ---
Author Name Unknown Address Unknown Organization K0G:[facility]ORY [place] [address] [place] [address] Laboratory Report Ordering Provider Test Date Status SAMEERA CONNER 05/15/2024 05:55:00 Final Observation Date Value Abnormality Reference (Units ) Status BUN 05/15/2024 05:55:00 36 Above high normal 6-20 (mg/dL) Final Creatinine 05/15/2024 05:55:00 3.9 Above high normal 0.6-1.2 (mg/dL) Final Glomerular filtration rate/1.73 sq M.predicted [Volume Rate/Area] in Serum, Plasma or Blood by Creatinine-based formula (CKD-EPI) 05/15/2024 05:55:00 15 Below low normal >=60 (mL/min) Final eGFR is calculated based on the CKD-EPI 2020 equation. Sodium 05/15/2024 05:55:00 134 Below low normal 135 -146 (mmol/L) Final Potassium 05/15/2024 05:55:00 3.9 3.5-5.1 (m mol/L) Final Cl 05/15/2024 05:55:00 93 Below low normal 98- 107 (mmol/L) Final CO2 05/15/2024 05:55:00 29 22-32 (mmo l/L) Final Anion gap 05/15/2024 05:55:00 12 7-15 (mmol /L) Final Glucose 05/15/2024 05:55:00 80 70-120 (mg /dL) Final Calcium 05/15/2024 05:55:00 8.6 8.4-10.2 ( mg/dL) Final Performing Location LABORATORY [facility] [place] [address] [place] [id number]
--- OUTSIDE RECORDS SUMMARY | 2024-05-22 13:17 | External Medical Summary ---
Author Name Unknown Address Unknown Organization K01:LABORATORY [facility] - [address] [place] [address] Laboratory Report Ordering Provider Test Date Status CORNELELISABET 05/02/2024 07:08:28 Final Observation Date Value Abnormality Reference (Units ) Status Phosphate 05/02/2024 07:08:28 4.4 2.5-4.8 (m g/dL) Final Performing Location LABORATORY [facility] - [address] [place] [address]
--- OUTSIDE RECORDS SUMMARY | 2024-05-22 13:17 | External Medical Summary ---
Author Name Unknown Address Unknown Organization K0G:LABORATORY [facility] [place] [address] [place] [address] Laboratory Report Ordering Provider Test Date Status SAMEERA CONNER 05/01/2024 07:03:00 Final Observation Date Value Abnormality Reference (Units ) Status WBC, Total 05/01/2024 07:03:00 4.97 4.00-10.8 0 (K/uL) Final RBC 05/01/2024 07:03:00 3.05 4.50-5.25 (M/uL) Final Hemoglobin 05/01/2024 07:03:00 10.2 Below low normal 14 .0-16.8 (g/dL) Final HCT 05/01/2024 07:03:00 32.5 Below low normal 40. 0-48.4 (%) Final MCV 05/01/2024 07:03:00 106.6 82.0-99.5 (fL) Final MCH 05/01/2024 07:03:00 33.4 27.0-34.0 (pg) Final MCHC 05/01/2024 07:03:00 31.4 32.0-36.0 (g/dL) Final RDW 05/01/2024 07:03:00 16.7 11.5-15.5 (%) Final Platelets 05/01/2024 07:03:00 157 140-400 (K /uL) Final MPV 05/01/2024 07:03:00 9.1 6.6-11.1 ( fL) Final Performing Location LABORATORY [facility] [address] [place] [address]
--- OUTSIDE RECORDS SUMMARY | 2024-05-22 13:17 | External Medical Summary ---
Author Name Unknown Address Unknown Organization K0G:LABORATORY [facility] [place] [address] [place] [address] Laboratory Report Ordering Provider Test Date Status SAMEERA CONNER 05/08/2024 06:55:00 Final Observation Date Value Abnormality Reference (Units ) Status WBC, Total 05/08/2024 06:55:00 4.08 4.00-10.8 0 (K/uL) Final RBC 05/08/2024 06:55:00 2.97 4.50-5.25 (M/uL) Final Hemoglobin 05/08/2024 06:55:00 9.6 Below low normal 14 .0-16.8 (g/dL) Final HCT 05/08/2024 06:55:00 31.8 Below low normal 40. 0-48.4 (%) Final MCV 05/08/2024 06:55:00 107.1 82.0-99.5 (fL) Final MCH 05/08/2024 06:55:00 32.3 27.0-34.0 (pg) Final MCHC 05/08/2024 06:55:00 30.2 32.0-36.0 (g/dL) Final RDW 05/08/2024 06:55:00 15.3 11.5-15.5 (%) Final Platelets 05/08/2024 06:55:00 196 140-400 (K /uL) Final MPV 05/08/2024 06:55:00 9.0 6.6-11.1 ( fL) Final Performing Location LABORATORY [facility] [place] [address] [place] [address]
--- OUTSIDE RECORDS SUMMARY | 2024-05-22 13:17 | External Medical Summary ---
Author Name Unknown Address Unknown Organization [facility] [address] [place] [address] Laboratory Report Ordering Provider Test Date Status SAMEERA CONNER 05/01/2024 07:03:00 Final Observation Date Value Abnormality Reference (Units ) Status BUN 05/01/2024 07:03:00 30 Above high normal 6- 20 (mg/dL) Final Results rechecked Creatinine 05/01/2024 07:03:00 3.9 Above high normal 0 .6-1.2 (mg/dL) Final Glomerular filtration rate/1.73 sq M.predicted [Volume Rate/Area] in Serum, Plasma or Blood by Creatinine-based formula (CKD-EPI) 05/01/2024 07:03:00 15 Below low normal >=60 (mL/min ) Final eGFR is calculated based on the CKD-EPI 2020 equation. Sodium 05/01/2024 07:03:00 137 135-146 (m mol/L) Final Potassium 05/01/2024 07:03:00 4.3 3.5-5.1 (m mol/L) Final Cl 05/01/2024 07:03:00 101 98-107 (mm ol/L) Final CO2 05/01/2024 07:03:00 24 22-32 (mmo l/L) Final Anion gap 05/01/2024 07:03:00 12 7-15 (mmol /L) Final Glucose 05/01/2024 07:03:00 81 70-120 (mg /dL) Final Calcium 05/01/2024 07:03:00 8.9 8.4-10.2 ( mg/dL) Final Performing Location LABORATORY [facility] [place] [address] [place] [address]
--- OUTSIDE RECORDS SUMMARY | 2024-05-22 13:17 | External Medical Summary ---
Author Name Unknown Address Unknown Organization K0G:LABORATORY [facility] [address] [place] [address] Laboratory Report Ordering Provider Test Date Status ELISABET UNGER 05/02/2024 07:08:28 Final Observation Date Value Abnormality Reference (Units ) Status Albumin 05/02/2024 07:08:28 3.3 Below low normal 3.8 -5.0 (g/dL) Final Per[facility] [place] [address]
--- OUTSIDE RECORDS SUMMARY | 2024-05-22 13:17 | External Medical Summary ---
Author Name Unknown Address Unknown Organization K01:LABORATORY [facility] [place] - [address] [place] [address] Laboratory Report Ordering Provider Test Date Status ELISABET UNGER 05/02/2024 07:08:28 Final Observation Date Value Abnormality Reference (Units ) Status Iron 05/02/2024 07:08:28 31 Below low normal 45-176 (ug/dL) Final Iron-binding capacity 05/02/2024 07:08:28 169 Below low normal 250-425 (ug/dL) Final Transferrin Sat % 05/02/2024 07:08:28 18 15-55 (%) Final Performing Location LABORATORY [facility] [place] - [address] [place] [address]
[2024-05-22 14:04] LABS: Basophils # (auto) 0.05 K/uL (0.00-0.20); Basophils % (auto) 0.9 %; Eosinophils # (auto) 0.23 K/uL (0.00-0.50); Hematocrit (blood only) 32.3 % (42.0-52.0); Hemoglobin 9.8 g/dl (14.0-18.0); Immature Granulocytes # (auto) 0.02 K/uL (0.01-0.20); Immature Granulocytes % (auto) 0.3 %; Lymphocytes # (auto) 0.55 K/uL (1.20-3.40); Lymphocytes % (auto) 9.5 %; Mean Corpuscular Hemoglobin 31.4 pg (25.0-34.0); Mean Corpuscular Hgb Conc 30.3 g/dL (32.0-36.0); Mean Corpuscular Volume 103.5 fL (80.0-100.0); Mean Platelet Volume 8.4 fL (9.4-12.4); Monocytes # (auto) 0.68 K/uL (0.11-0.59); Monocytes % (auto) 11.7 %; Neutrophils # (auto) 4.27 K/uL (1.40-6.50); Neutrophils % (auto) 73.6 %; Platelet Count 177 K/uL (130-400); RDW Coefficient of Variation 14.7 % (11.5-14.5); RDW Standard Deviation 55.8 fL (36.4-46.3); Red Blood Count 3.12 M/uL (4.70-6.10)
--- NOTE | 2024-05-22 14:10 | Emergency Department Note ---
Impression & Plan Generalized weakness ED Provider Note HISTORY OF PRESENT ILLNESS: Patient is a 78-year-old male presenting for admission for placement. Patient reportedly was discharged to [facility] after being discharged from the hospital for pneumonia and urinary tract infection. He spent the last [address] [facility] and was discharged 48 hours ago. states that she was told that the patient would be able to transfer from his wheelchair to his bed. However, over the last 48 hours she has had to call 911 to ask for assistance to get him up and out of bed. Reports he is not been up and out of bed today until she called 911 to bring him to the hospital. No reported fevers. Patient was seen by [facility] home health nurse today who referred them to the hospital for admission for placement. Patient denies any abdominal pain, nausea or vomiting. Patient did go to dialysis yesterday, but 911 had to be called for transfer of the patient. reports she is unable to lift and transfer him on her own. ROS: as above PHYSICAL EXAM: Constitutional: Patient appears in no acute distress. HENT: Head: Normocephalic and atraumatic. Eyes: EOMI, PERRL Mouth/Throat: Mucous membranes moist. Neck: Trachea midline. Neck supple. Cardiovascular: Irregular rhythm. No murmurs, rubs or gallops. Intact distal pulses. Pulmonary/Chest: No respiratory distress. Breath sounds clear and equal bilaterally. No wheezes or rales. Abdominal: Abdomen soft, no tenderness, rebound or guarding. Ostomy in place Musculoskeletal: No edema, tenderness or deformity noted. Skin: Warm and dry. No rash, erythema, pallor or cyanosis Psychiatric: Appropriate mood and affect for situation. Neurological: Alert and keenly responsive. CN II-XII grossly intact, moving all extremities equally and fully. MDM: - Vitals signs stable. - History obtained via patient and patient's . History as above. - Chronic conditions affecting care: ESRD; HLD; HTN; sacral decubitus ulcer; neurogenic bladder - Differential diagnoses include, but are not limited to: UTI; pneumonia; cellulitis; sepsis; electrolyte abnormality - Order placed for continuous cardiac monitoring. At this time, monitor showed rate of 86 bpm with irregular rhythm, per my interpretation. - External medical records reviewed. Discharge summary dated 04/2024 was reviewed. Patient was admitted to the hospital at that time for urinary tract infection and adenovirus. - EKG interpreted by myself showed atrial fibrillation. Rate 69 bpm. QT 412. No acute ischemic changes. - Laboratory workup interpreted by myself showed normal WBC; anemia (Hgb 9.8); stable electrolytes; ESRD; slightly elevated troponin (23.5); normal TSH - COVID/flu/RSV negative - CXR shows evidence of some pulmonary vascular congestion, per my interpretation. - UA ordered. - Given patient's inability to care for himself at home and 's inability to care for him, will admit for PT/OT assessment and potential placement. - Discussion was had with outsole caser about patient's case and need for admission - Hospitalist consulted for admission - [facility] ASSESSMENT AND PLAN: Diagnosis: Generalized weakness Plan: admit Past Med/Surg History Problem List (Updated 05/22/24 @ 15:24 by Alysha Hurtado MD) Generalized weakness (Acute) UTI (urinary tract infection) Dialysis patient (Acute) Anemia (Acute) Adenoviral infection (Acute) Weakness (Acute) Adenovirus infection Colostomy in place Laparoscopic loop sigmoid colostomy by Dr. Yaquelin Hou for sacral ulcer healing Altered bowel elimination due to intestinal ostomy (Acute) Sacral ulcer Insomnia MDD (major depressive disorder), single episode, mild CKD (chronic kidney disease) (Acute) Acute hypoxemic respiratory failure (Acute) Hypoxia (Acute) ESRD (end stage renal disease) on dialysis (Acute) Anemia of chronic disease Elevated troponin Wheelchair dependent Abnormal computed tomography of lung 08/05/23 - Wedge shaped consolidation of lung. No signs of PNA on exam. Recommend 3 month f/u CT ordered. Neurogenic bowel (Chronic) Sleep apnea Neurogenic bladder Generalized osteoarthritis Neurogenic claudication due to lumbar spinal stenosis Lower extremity edema Inability to walk Lymphedema Central venous catheter in place MRSA (methicillin resistant staph aureus) culture positive Hypertension Atrial fibrillation Follows with [facility] [place] (Dr. Jarvis) On Eliqu Abdominal aortic aneurysm (~2014) S/p Type A dissection with emergent repair in 2014 - Follows with vascular - last seen 11/2022- AAA 3.3cm, iliac artery aneursym (right 2.0cm and left 3.0 cm)- all stable in size; chronic thoracic aortic dissection- stable- vascular recommended repeating imaging May 2024 ESRD (end stage renal disease) on dialysis [facility] in [place] Mon-Fri-Fri Sacral decubitus ulcer, stage IV (Acute) "stable to improved" per [place] wound [facility] WEEKLY AND [facility] HOME NURSING 2X PER WEEK. patient's changes dressing as instructed at home. Neuropathic pain Hyperlipidemia Anemia due to chronic kidney disease Anxiety Medical History Encounter for pre-operative examination Lobar pneumonia 08/2022 treated at [facility] inpatient. 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 Shrestha at [facility]>WC BOUND FOR 3 YEARS D/T CYSTS. inhibiting patient to ambulate. 04/25/23: awaiting for surgery to remove the spinal cyst but will need his ulcer wound repaired and healed fully first --> reason for upcoming colostomy. History of CHF (congestive heart failure) Impotence, organic Sleep apnea CPAP PTSD (post-traumatic stress disorder) POST AORTIC DISSECTION Neurogenic bladder Self Catheterization since Aortic repair 4-5X PER DAY Lumbar spinal stenosis Surgical History History of removal of tunneled central venous catheter (CVC) with port removal of perm cath 05/[address] Marroquin S/P arteriovenous (AV) fistula creation left S/P debridement (02/08/22) Sacral Wound Debridment, Sacral bone biopsy(Not Applicable) - Jose Le, S/P debridement (06/27/21) Excisional Debridement Sacral Decubitus Ulcer down to muscle level 4cm x 6cm - Ranjeet Myers DO 06/27/2021 Excisional Debridement of Sacral Decubitus Ulcer Down to Bone, 11cm x 10cm(Not Applicable) - Ranjeet Myers DO 07/25/2021: MAC 3, ETT 7.5. History of revision of total hip arthroplasty History of arthroplasty of left hip S/P total right hip arthroplasty History of cardioversion mult>FOLLOWS WITH DR. JARVIS History of lumbar fusion History of bladder surgery History of transurethral resection of prostate Nausea and vomiting after administration of anesthetic agent History of arthroscopy RT KNEE History of open reduction and internal fixation (ORIF) procedure RT WRIST History of total knee replacement RT History of esophagogastroduodenoscopy (EGD) History of colonoscopy History of tooth extraction History of rhinoplasty History of cataract surgery RT/LEFT 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 2015 Did have thoracic bleeding post op- required re exploration approx 1 week after initial presentation- had ARF, spinal cord ischemia resulting in paraplegia, neurogenic bladder and neurogenic bowel. History of gastric bypass 2010 History of cardiac catheterization 2003 - no stents - [facility] in [place] Family History Grandmother Family history of diabetes mellitus Mother Gallbladder disease Father Prostate cancer Myocardial infarction Hypertension Other Family history non-contributory No family history of adverse response to anesthesia Denies family history of Ovarian cancer Breast cancer Colorectal cancer Social History Smoking Status: Never smoker Second Hand Exposure: No; Do You Dip or Chew Tobacco: No; Hx Alcohol Use: No Hx Substance Use: No Preferred Language: Serbian Communication Ability: Effective Visual Impairment: Limited Hearing Ability: Normal Audit Practice Intern Required: No Beliefs That Will Affect Care: None marital status: Current Living Situation: Spouse Current Living Situation Comment: home with current occupational status: retired How many Children do You have: 1 Feels Safe at Home: Yes Childhood Exposure to Second-Hand Smoke: Yes (father did ) Diet: regular Diet Comment: low sugar, low phospate caffeine: Yes (tea) during the past year weight has: remained stable Dental Care, Regularly: Yes Physical Activity Frequency: Does not Exercise Physical Activity Frequency Comment: goes to PT twice a week Seatbelt Use: always Sunscreen Use: Yes Do you think of yourself as: straight/heterosexual Gender Identity: Male Assistive Devices: Hospital Bed and Scooter/Electric Scooter Allergies Allergies Allergy/AdvReac Type Severity Reaction Status Date / Time tetracycline Allergy Intermediate HIVES Verified 04/25/24 15:40 NSAIDS (Non-Steroidal Allergy Unknown Unknown, Unverified 04/25/24 15:40 Anti-Inflamma on file w/ [facility] morphine AdvReac Intermediate Nausea Verified 04/25/24 15:40 Home Meds Home Medications Medication Instructions Recorded Confirmed cholecalciferol (vitamin D3) 50 50 mcg PO QPM 12/31/19 05/22/24 mcg (2,000 unit) tablet (Vitamin D3) sevelamer carbonate 800 mg tablet See Rx Instructions .Route .COMPLEX 09/20/22 05/22/24 atorvastatin 20 mg tablet 20 mg PO DAILY 04/14/24 05/22/24 metoprolol succinate 25 mg 25 mg PO QAM 04/14/24 05/22/24 tablet,extended release 24 hr midodrine 5 mg tablet 5 mg PO 3XWK 04/14/24 05/22/24 vitamin B complex and vitamin C 1 cap PO QAM 04/14/24 05/22/24 no.20-folic acid 1 mg capsule (Triphrocaps) Previous Rx's Medication Instructions Recorded Wheelchair (Powered) (Power #1 ea 01/04/22 Wheelchair) alprazolam 0.25 mg tablet 0.25 mg PO HS PRN Anxiety/Panic 10/09/23 attacks #30 tabs Mattress (Air or other) #1 ea 10/21/23 apixaban 2.5 mg tablet (Eliquis) 2.5 mg PO BID #180 tabs 02/03/24 gabapentin 300 mg capsule 600 mg (2 x 300 mg) PO HS #180 caps 03/05/24 oxycodone-acetaminophen 5 mg-325 1 tab PO Q6H PRN pain #30 tabs 04/22/24 mg tablet (Percocet) mirtazapine 7.5 mg tablet 7.5 mg PO HS #60 tabs 04/30/24 polyethylene glycol 3350 17 gram 17 g PO DAILY PRN constipation #5 04/30/24 oral powder packet (Miralax) ea Results & Data (ED) Vital Signs Vital Signs - 24 hr 05/22/24 13:17 05/22/24 13:21 05/22/24 13:50 Temperature 36.9 C Temperature Source Oral Pulse Rate 75 71 Pulse Rate [Radial] Pulse Rhythm Regular Pulse Strength Normal Respiratory Rate 16 Respiratory Effort / Characteristics Non-Labored Spontaneous Accessory Muscle Use Respiratory Depth Normal Respiratory Pattern Regular Blood Pressure 122/80 Blood Pressure [Left Arm] Blood Pressure Mean 94 Blood Pressure Mean [Left Arm] Pulse Oximetry 95 96 Oxygen Delivery Method Room Air Room Air Sepsis Recent Fever Within 48 Hours No Sepsis New/Unexplained Change in Mental Status No Sepsis Action Taken by Nursing No Action Required 05/22/24 15:07 Temperature Temperature Source Pulse Rate Pulse Rate [Radial] 86 Pulse Rhythm Pulse Strength Respiratory Rate 16 Respiratory Effort / Characteristics Respiratory Depth Respiratory Pattern Blood Pressure Blood Pressure [Left Arm] 122/80 Blood Pressure Mean Blood Pressure Mean [Left Arm] 94 Pulse Oximetry 96 Oxygen Delivery Method Sepsis Recent Fever Within 48 Hours Sepsis New/Unexplained Change in Mental Status Sepsis Action Taken by Nursing Laboratory Data 05/22/24 13:40 05/22/24 13:40 Lab Results 05/22/24 05/22/24 Range/Units 13:40 Unknown WBC 5.80 (4.8-10.8) K/ul RBC 3.12 L (4.70-6.10) M/uL Hgb 9.8 L (14.0-18.0) g/dl Hct 32.3 L (42.0-52.0) % MCV 103.5 H (80.0-100.0) fL MCH 31.4 (25.0-34.0) pg MCHC 30.3 L (32.0-36.0) g/dL RDW Std Deviation 55.8 H (36.4-46.3) fL RDW Coeff of Hector 14.7 H (11.5-14.5) % Plt Count 177 (130-400) K/uL MPV 8.4 L (9.4-12.4) fL Immature Gran % (Auto) 0.3 % Neut % (Auto) 73.6 % Lymph % (Auto) 9.5 % Waller % (Auto) 11.7 % Eos % (Auto) 4.0 % Baso % (Auto) 0.9 % Neut # (Auto) 4.27 (1.40-6.50) K/uL Lymph # (Auto) 0.55 L (1.20-3.40) K/uL Waller # (Auto) 0.68 H (0.11-0.59) K/uL Eos # (Auto) 0.23 (0.00-0.50) K/uL Baso # (Auto) 0.05 (0.00-0.20) K/uL Immature Gran # (Auto) 0.02 (0.01-0.20) K/uL Sodium 138 (136-145) mmol/L Potassium 4.3 (3.5-5.1) mmol/L Chloride 97 L (98-107) mmol/L Carbon Dioxide 34 H (21-32) mmol/L Anion Gap 7 (3-11) BUN 35 H (6-23) mg/dl Creatinine 3.83 H (0.6-1.4) mg/dl Est Cr Clr Drug Dosing 17.7 ml/min eGFR 15.47 BUN/Creatinine Ratio 9.1 L (10-20) Glucose 107 H (70-99(Fasting)) mg/dl Calcium 9.1 (8.6-10.3) mg/dl Magnesium 2.0 (1.7-2.4) mg/dl Total Bilirubin 0.6 (0.2-1.0) mg/dl AST 25 (13-39) U/L ALT 21 (7-52) U/L Alkaline Phosphatase 103 (34-104) U/L Troponin I High Sens 23.5 H (0-20) pg/ml Total Protein 6.1 (6.0-8.3) gm/dl Albumin 3.3 L (3.4-5.0) gm/dl Globulin 2.8 (2.5-4.0) gm/dl Albumin/Globulin Ratio 1.2 (0.9-2) TSH 2.266 (0.300-4.500) uIu/ml SARS-CoV-2 (PCR) NEGATIVE (Negative) Influenza Type A (PCR) Negative (Neg) Influenza Type B (PCR) Negative (Neg) RSV (RT-PCR) Negative (Neg) Imaging Data Radiologist's Impression: Chest X-Ray 05/22/24 13:39 SINGLE VIEW CHEST CLINICAL HISTORY: Generalized weakness. FINDINGS: An AP, portable, upright chest radiograph is compared to chest x-ray and chest CT dated 04/25/2024. The patient is status post midline sternotomy. The heart is markedly enlarged noting atherosclerotic calcification of the thoracic aorta. There is pulmonary vascular congestion. Atelectasis is noted at both lung bases. No airspace consolidation or large pleural effusion is identified. No pneumothorax is seen. The skeletal structures are osteopenic. The bony thorax is grossly intact. Surgical clips project over the right shoulder. IMPRESSION: Cardiomegaly with evidence of congestive failure. Radiographic follow-up to resolution is recommended. ACT 112: Negative or not required by law. Electronically signed by: Kasi Dai M.D. 05/22/2024 2:09 PM Discharge Plan Visit Data Chief Complaint: Weakness Stated Complaint: WEAKNESS, PLACEMENT ED Provider: Alysha Hurtado Discharge Problem: Generalized weakness Forms Stand Alone Forms: My [facility] Prescriptions Prescriptions: No Action (DME) Power Wheelchair Device See Rx Instructions .Route Qty: 1 0RF Rx Instructions: POWER WHEELCHAIR, DX: R53.1, R26.2 (DME) Mattress (Air or other) Misc See Rx Instructions .Route Qty: 1 0RF Rx Instructions: alternating pressure mattress Eliquis 2.5 mg tablet 2.5 mg PO BID Qty: 180 3RF gabapentin 300 mg capsule 600 mg PO HS Qty: 180 5RF oxycodone-acetaminophen [Percocet] 5-325 mg tablet 1 tab PO Q6H PRN (Reason: pain) Qty: 30 0RF alprazolam 0.25 mg tablet 0.25 mg PO HS PRN (Reason: Anxiety/Panic attacks) Qty: 30 0RF cholecalciferol (vitamin D3) [Vitamin D3] 50 mcg (2,000 unit) Tablet 50 mcg PO QPM sevelamer carbonate 800 mg tablet See Rx Instructions .ROUTE .COMPLEX Rx Instructions: Per spouse: Patient is taking 2400mg by mouth with each meal. However, MD called (Nancie Marker) and states pt should be taking 1600mg with each meal and 800mg with each snack. atorvastatin 20 mg tablet 20 mg PO DAILY midodrine 5 mg tablet 5 mg PO 3XWK Rx Instructions: 30 mins prior to Dialysis metoprolol succinate 25 mg tablet extended release 24 hr 25 mg PO QAM Triphrocaps 1 mg capsule 1 cap PO QAM polyethylene glycol 3350 [Miralax] 17 gram Powder In Packet 17 g PO DAILY PRN (Reason: constipation) Qty: 5 0RF mirtazapine 7.5 mg tablet 7.5 mg PO HS Qty: 60 2RF Referrals Referrals: Jasiel Pineda, [Primary Care Provider] -
--- NOTE | 2024-05-22 14:11 | XRay Report ---
SINGLE VIEW CHEST CLINICAL HISTORY: Generalized weakness. FINDINGS: An AP, portable, upright chest radiograph is compared to chest x-ray and chest CT dated 03/29. The patient is status post midline sternotomy. The heart is markedly enlarged noting atherosc lerotic calcification of the thoracic aorta. There is pulmonary vascular congestion. Atelectasis is n oted at both lung bases. No airspace consolidation or large pleural effusion is identified. No pneumo thorax is seen. The skeletal structures are osteopenic. The bony thorax is grossly intact. Surgical c lips project over the right shoulder. IMPRESSION: Cardiomegaly with evidence of congestive failure. Radiographic follow-up to resolution is recommended. ACT 112: Negative or not required by law. Electronically signed by: Kasi Dai M.D. 05/22/2024 2:09 PM
[2024-05-22 14:14] LABS: Albumin Globulin Ratio 1.2 (0.9-2); Albumin Level 3.3 gm/dl (3.4-5.0); BUN Creatinine Ratio 9.1 (10-20); Bilirubin,Total 0.6 mg/dl (0.2-1.0); Calcium 9.1 mg/dl (8.6-10.3); Creatinine Clr Calc Pharmacy 17.7 ml/min; Globulin 2.8 gm/dl (2.5-4.0); Potassium 4.3 mmol/L (3.5-5.1); Total Protein 6.1 gm/dl (6.0-8.3)
[2024-05-22 14:21] LABS: Troponin I High Sensitivity 23.5 pg/ml (0-20)
[2024-05-22 14:31] LABS: Thyroid Stimulating Hormone 2.266 uIu/ml (0.300-4.500)
[2024-05-22 14:34] LABS: Influenza A virus by PCR Negative (Neg); Influenza B virus by PCR Negative (Neg); RSV by PCR Negative (Neg); SARS CoV2 RNA(COVID-19) Ceph NEGATIVE (Negative)
--- NOTE | 2024-05-22 15:38 | History & Physical Report ---
Date of Service May 22, 2024 Assessment & Plan (1) Generalized weakness: (2) Colostomy in place: (3) Sacral ulcer: (4) ESRD (end stage renal disease) on dialysis: (5) Anemia of chronic disease: (6) Neurogenic bladder: (7) Inability to walk: Plan This is a 78 y/o male being admitted for generalized weakness and inability to manage at home. 1) Generalized weakness -- no obvious focal findings or new etiology -Will obtain PT/OT eval -Will have case mgmt see patient for placement options 2) Sacral wound and ostomy management -- no obvious sign of new infection at either site -Will consult wound care for management of both sites 3) ESRD on HD -Will consult nephrology for routine MWF dialysis -Cont Sevelamer with meals per home dose -Continue vitamin -Patent receives Micera every 2 weeks with HD it appears from the chart -Monitor Cr and electrolytes 4) A fib controlled -Continue Toprol XL 25 mg daily -Cont Eliquis 2.5 mg BID 5) HFpEF -Monitor I/O, monitor daily weights -Volume status will largely be managed with HD 6) DVT PPx -- On Eliquis 7) Code status -- full code History of Present Illness Chief Complaint: Generalized weakness Primary Care Provider: Jasiel Pineda, DO This is a 78 y/o male with MHx significant for A fib (on Eliquis), HFpEF, ESRD on MWF HD, neurogenic bladder with chronic indwelling Perry, colostomy, and a stage 4 decub ulcer among other conditions who is brought in from home due to generalized weakness, inability to transfer, inability to be cared for at home. Patient was recently admitted here from 04/25 to 04/30 with multiple active issues including: PNA/UTI with Cx positive for Pseudomonas and Klebsiella for which he finished a course of Cefepime outpatient on 05/05, adenovirus infection, and generalized weakness. Patient states that he was at [facility] for the past 3 weeks after his hospitalization undergoing PT. He states that he did not feel he was even able to transfer, however, he was discharged home on 05/20. For the past 2 days, he has not been able to move or transfer well at home, and had to call 911 for assistance to get him in/out of bed, to bathroom, and for really any movement. Home nurse from [facility] came for home visit today and after assessing him back to the ER for admission and placement especially given that is unable to lift/transfer him by herself. Patient has no new complaints otherwise. No f/c/n/v/d. No CP/SOB. He does still have some remnant of a cough, but non productive. notes that there was some leaking around his colostomy today, but otherwise they state no other unusual changes. Patient has been taking all medications as prescribed. Allergies Allergy/AdvReac Type Severity Reaction Status Date / Time tetracycline Allergy Intermediate HIVES Verified 04/25/24 15:40 NSAIDS (Non-Steroidal Allergy Unknown Unknown, Unverified 04/25/24 15:40 Anti-Inflamma on file w/ [facility] morphine AdvReac Intermediate Nausea Verified 04/25/24 15:40 Home Medications Medication Instructions Recorded Confirmed Type cholecalciferol (vitamin D3) 50 50 mcg PO QPM 12/31/19 05/22/24 History mcg (2,000 unit) tablet (Vitamin D3) Wheelchair (Powered) (Power #1 ea 01/04/22 04/25/24 Rx Wheelchair) sevelamer carbonate 800 mg tablet See Rx Instructions .Route .COMPLEX 09/20/22 05/22/24 History alprazolam 0.25 mg tablet 0.25 mg PO HS PRN Anxiety/Panic 10/09/23 05/22/24 Rx attacks #30 tabs Mattress (Air or other) #1 ea 10/21/23 04/25/24 Rx apixaban 2.5 mg tablet (Eliquis) 2.5 mg PO BID #180 tabs 02/03/24 05/22/24 Rx gabapentin 300 mg capsule 600 mg (2 x 300 mg) PO HS #180 caps 03/05/24 05/22/24 Rx atorvastatin 20 mg tablet 20 mg PO DAILY 04/14/24 05/22/24 History metoprolol succinate 25 mg 25 mg PO QAM 04/14/24 05/22/24 History tablet,extended release 24 hr midodrine 5 mg tablet 5 mg PO 3XWK 04/14/24 05/22/24 History vitamin B complex and vitamin C 1 cap PO QAM 04/14/24 05/22/24 History no.20-folic acid 1 mg capsule (Triphrocaps) oxycodone-acetaminophen 5 mg-325 1 tab PO Q6H PRN pain #30 tabs 04/22/24 05/22/24 Rx mg tablet (Percocet) mirtazapine 7.5 mg tablet 7.5 mg PO HS #60 tabs 04/30/24 05/22/24 Rx polyethylene glycol 3350 17 gram 17 g PO DAILY PRN constipation #5 04/30/24 05/22/24 Rx oral powder packet (Miralax) ea Past Med/Surg History Problem List Generalized weakness (Acute) UTI (urinary tract infection) Dialysis patient (Acute) Anemia (Acute) Adenoviral infection (Acute) Weakness (Acute) Adenovirus infection Colostomy in place Laparoscopic loop sigmoid colostomy by Dr. Yaquelin Hou for sacral ulcer healing Altered bowel elimination due to intestinal ostomy (Acute) Sacral ulcer Insomnia MDD (major depressive disorder), single episode, mild CKD (chronic kidney disease) (Acute) Acute hypoxemic respiratory failure (Acute) Hypoxia (Acute) ESRD (end stage renal disease) on dialysis (Acute) Anemia of chronic disease Elevated troponin Wheelchair dependent Abnormal computed tomography of lung 08/05/23 - Wedge shaped consolidation of lung. No signs of PNA on exam. Recommend 3 month f/u CT ordered. Neurogenic bowel (Chronic) Sleep apnea Neurogenic bladder Generalized osteoarthritis Neurogenic claudication due to lumbar spinal stenosis Lower extremity edema Inability to walk Lymphedema Central venous catheter in place MRSA (methicillin resistant staph aureus) culture positive Hypertension Atrial fibrillation [place] [facility] [place]Dr. Jarvis[place] On [facility] Abdominal aortic aneurysm (~2014) S/p Type A dissection with emergent repair in 2014 - Follows with vascular - last seen 11/2022- AAA 3.3cm, iliac artery aneursym (right 2.0cm and left 3.0 cm)- all stable in size; chronic thoracic aortic dissection- stable- vascular recommended repeating imaging May 2024 ESRD (end stage renal disease) on dialysis [facility] in [place] Mon-Fri-Fri Sacral decubitus ulcer, stage IV (Acute) "stable to improved" per [facility]>WOUND CLINIC WEEKLY AND [facility] HOME NURSING 2X PER WEEK. patient's changes dressing as instructed at home. Neuropathic pain Hyperlipidemia Anemia due to chronic kidney disease Anxiety Medical History Encounter for pre-operative examination Lobar pneumonia 08/2022 treated at [facility] inpatient. 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 Shrestha at [facility]>WC BOUND FOR 3 YEARS D/T CYSTS. inhibiting patient to ambulate. 04/25/23: awaiting for surgery to remove the spinal cyst but will need his ulcer wound repaired and healed fully first --> reason for upcoming colostomy. History of CHF (congestive heart failure) Impotence, organic Sleep apnea CPAP PTSD (post-traumatic stress disorder) POST AORTIC DISSECTION Neurogenic bladder Self Catheterization since Aortic repair 4-5X PER DAY Lumbar spinal stenosis Surgical History History of removal of tunneled central venous catheter (CVC) with port removal of perm cath 05/[address] Marroquin S/P arteriovenous (AV) fistula creation left S/P debridement (02/08/22) Sacral Wound Debridment, Sacral bone biopsy(Not Applicable) - Jose Le, DO S/P debridement (06/27/21) Excisional Debridement Sacral Decubitus Ulcer down to muscle level 4cm x 6cm - Ranjeet Myers, 06/27/2021 Excisional Debridement of Sacral Decubitus Ulcer Down to Bone, 11cm x 10cm(Not Applicable) - Ranjeet Myers, 07/25/2021: MAC 3, ETT 7.5. History of revision of total hip arthroplasty History of arthroplasty of left hip S/P total right hip arthroplasty History of cardioversion mult>FOLLOWS WITH DR. JARVIS History of lumbar fusion History of bladder surgery History of transurethral resection of prostate Nausea and vomiting after administration of anesthetic agent History of arthroscopy RT KNEE History of open reduction and internal fixation (ORIF) procedure RT WRIST History of total knee replacement RT History of esophagogastroduodenoscopy (EGD) History of colonoscopy History of tooth extraction History of rhinoplasty History of cataract surgery RT/LEFT 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 History of gastric bypass 2010 History of cardiac catheterization 2004 - no stents - [facility] in [place] Family History Grandmother Family history of diabetes mellitus Mother Gallbladder disease Father Prostate cancer Myocardial infarction Hypertension Other Family history non-contributory No family history of adverse response to anesthesia Denies family history of Ovarian cancer Breast cancer Colorectal cancer Social History Smoking Status: Never smoker Second Hand Exposure: No; Do You Dip or Chew Tobacco: No; Hx Alcohol Use: No Hx Substance Use: No Preferred Language: Romanian Communication Ability: Effective Visual Impairment: Limited Hearing Ability: Normal Molasses 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 Caramel Operator Required: No Beliefs That Will Affect Care: None marital status: Current Living Situation: Spouse Current Living Situation Comment: home with current occupational status: retired How many Children do You have: 1 Feels Safe at Home: Yes Childhood Exposure to Second-Hand Smoke: Yes (father did ) Diet: regular Diet Comment: low sugar, low phospate caffeine: Yes (tea) during the past year weight has: remained stable Dental Care, Regularly: Yes Physical Activity Frequency: Does not Exercise Physical Activity Frequency Comment: goes to PT twice a week Seatbelt Use: always Sunscreen Use: Yes Do you think of yourself as: straight/heterosexual Gender Identity: Male Assistive Devices: Hospital Bed and Scooter/Electric Scooter Review of Systems Review of Systems: All systems reviewed & are unremarkable except as noted in Subjective Physical Exam Constitutional: + physical limitations and + frail appea ring; no acute distress Eyes: PERRL, conjunctivae normal, anicteric sclerae ENMT: external ear and nose normal, oropharynx normal Neck: trachea midline, no thyromegaly Cardiovascular: Rate/Rhythm: regular rate and + irregularly irregular Heart Sounds: no gallop, no murmur and no cardiac rub Gastrointestinal (Abdomen): Inspection/Auscultation: abdomen normal to inspection and normal bowel sounds; abdomen not distended L sided colostomy bag in place; no leakage Musculoskeletal: Generalized weakness throughout; strength ~3+ to 4/5; difficulty moving against significant resistance Skin: Skin breakdown noted in sacral region; no purulence Neurologic: PERRL, EOMI, accommodation nl, no face palsy, no dysarthria No focal weakness Unable to transfer or ambulate Psychiatric: A+Ox3, euthymic affect Genitourinary: Perry in place with drainage Results & Data Results & Data Vital Signs (Past 12 Hours) Vital Signs Temp Pulse Pulse Resp BP BP Pulse Ox 05/22/24 15:07 86 16 122/80 96 05/22/24 13:50 96 05/22/24 13:21 71 05/22/24 13:17 36.9 C 75 16 122/80 95 O2 Del Method 05/22/24 15:07 05/22/24 13:50 Room Air 05/22/24 13:21 05/22/24 13:17 Room Air Laboratory Results 05/22/24 05/22/24 Unknown 13:40 WBC 5.80 RBC 3.12 L Hgb 9.8 L Hct 32.3 L MCV 103.5 H MCH 31.4 MCHC 30.3 L RDW Std Deviation 55.8 H RDW Coeff of Hector 14.7 H Plt Count 177 MPV 8.4 L Immature Gran % (Auto) 0.3 Neut % (Auto) 73.6 Lymph % (Auto) 9.5 [place] % (Auto) 11.7 Eos % (Auto) 4.0 Baso % (Auto) 0.9 Neut # (Auto) 4.27 Lymph # (Auto) 0.55 L [place] # (Auto) 0.68 H Eos # (Auto) 0.23 Baso # (Auto) 0.05 Immature Gran # (Auto) 0.02 Sodium 138 Potassium 4.3 Chloride 97 L Carbon Dioxide 34 H Anion Gap 7 BUN 35 H Creatinine 3.83 H Est Cr Clr Drug Dosing 17.7 eGFR 15.47 BUN/Creatinine Ratio 9.1 L Glucose 107 H Calcium 9.1 Magnesium 2.0 Total Bilirubin 0.6 AST 25 ALT 21 Alkaline Phosphatase 103 Troponin I High Sens 23.5 H Total Protein 6.1 Albumin 3.3 L Globulin 2.8 Albumin/Globulin Ratio 1.2 TSH 2.266 SARS-CoV-2 (PCR) NEGATIVE Influenza Type A (PCR) Negative Influenza Type B (PCR) Negative RSV (RT-PCR) Negative Diagnostic Findings CXR: IMPRESSION: Cardiomegaly with evidence of congestive failure. Radiographic follow-up to resolution is recommended. ECG Additional Comments: A fib at 69 LAFB Intraventricular conduction delay with QRS 120 Code Status & VTE Plan Code Status Full code as per discussion with patient. VTE Prophylaxis Plan VTE Prophylaxis will be ordered: Yes PG Care Time/CCT Total # of Minutes Spent Total Time Spent with Patient: Total time spent is greater than 50% in coordination of care (as documented) at patient's floor/unit and/or counseling patient: Coding Level of Care Code 41030 INT INP/OBS CARE 2/55MIN Diagnoses Generalized weakness R53.[address] Z93.3 Sacral ulcer L98.429 ESRD (end stage renal disease) on dialysis N18.6; Z99.2 Anemia of chronic disease D63.8 Neurogenic bladder N31.9 Inability to walk R26.2 Time Spent (min) 60
[2024-05-22] MEDS ORDERED: ALPRAZolam 0.25 MG TABLET PO PRN (16:51)
[2024-05-22] MEDS ORDERED: [UNRECOGNIZED DRUG - REMARK] SCH (16:51)
[2024-05-22] MEDS ORDERED: POLYETHYLENE (MIRALAX) 17 GM PACK PO PRN (16:51)
[2024-05-22] MEDS ORDERED: ACETAMINOPHEN 325 MG TAB PO PRN (16:51)
[2024-05-22] MEDS ORDERED: SEVELAMER CARBONATE 800 MG TAB PO PRN (17:10)
[2024-05-22] MEDS: SEVELAMER CARBONATE 800 MG TAB PO SCH (18:03)
[2024-05-22 18:11] LABS: Appearance Urine Cloudy (Clear); Bacteria Urine Automated 2+ (None Seen); Bilirubin Urine Negative (Negative); Blood Urine Negative (Negative); Cast Urine Automated 0-2 /lpf (0-2); Color Urine Yellow; Epithelial Cell Urine Auto 0-2 /hpf (0-2); Glucose Urine UA Trace (Negative); Ketones Urine Negative (Negative); Leukocyte Esterase Urine 2+ (Negative); Nitrite Urine Positive (Negative); Protein Urine 3+ (Negative); RBC Urine Automated 0-2 /hpf (0-2); Specific Gravity Urine 1.013 (1.000-1.030); Urobilinogen Urine Negative (Negative); WBC Urine Automated >50 /hpf (0-5); pH Urine >= 9.0 (4.5-7.5)
[2024-05-22] MEDS: MIRTAZAPINE TAB 15 MG TAB PO SCH (21:23)
[2024-05-22] MEDS: APIXABAN 2.5 MG TAB PO SCH (21:23)
[2024-05-22] MEDS: GABAPENTIN 300 MG CAP PO SCH (21:23)
[2024-05-22] MEDS: CHOLECALCIFEROL 25 MCG (1000 UNITS) TAB PO SCH (21:23)
[2024-05-22] MEDS: oxyCODONE/ACETAMINOPHEN 5mg/325mg TAB PO PRN (22:33)
--- NOTE | 2024-05-23 07:29 | Electrocardiogram Report ---
Test Reason : Blood Pressure : */* mmHG Vent. Rate : 69 BPM Atrial Rate : * BPM P-R Int : * ms QRS Dur : 120 ms QT Int : 412 ms P-R-T Axes : * -64 69 degrees QTcB Int : 441 ms Atrial fibrillation Left anterior fascicular block Minimal voltage criteria for LVH, may be normal variant Poor R wave progression, consider anterior [place] vs. lead placement vs. LVH Abnormal ECG When compared with ECG of 25-Apr-2024 14:26, Nonspecific T wave abnormality no longer evident in Inferior leads T wave inversion no longer evident in Anterior leads Confirmed by Shakeel Braun ([id number] on 05/23/2024 7:28:46 AM Referred By: REFERRED SELF Confirmed By: Shakeel Braun
[2024-05-23] MEDS: NEPHROCAPS PO SCH (08:26)
[2024-05-23] MEDS: ATORVASTATIN 20 MG TAB PO SCH (08:26)
[2024-05-23] MEDS: POLYETHYLENE (MIRALAX) 17 GM PACK PO SCH (08:27)
[2024-05-23] MEDS: METOPROLOL SUCC 25MG EXT REL TAB PO SCH (08:27)
[2024-05-23 09:10] LABS: BUN Creatinine Ratio 9.7 (10-20); Creatinine Clr Calc Pharmacy 15.6 ml/min; Potassium 4.3 mmol/L (3.5-5.1)
--- NOTE | 2024-05-23 09:17 | Nephrology Consultation ---
Date of Consultation May 23, 2024 Assessment & Plan (1) ESRD (end stage renal disease) on dialysis: * Volume status and electrolyte balance are acceptable. No acute indication for hemodialysis this morning * Outpatient HD Rx has been MWF 3h 15m on a 180 optiflux at Qb 450 Qd 800, 3 K, 2.5 calcium. EDW 79.5 kg * Will provide HD in AM. Orders have been placed in EMR and HD RN notified * Midodrine pre-HD * Continue low potassium/HD diet * Continue daily renal MVI. Sevelamer QAC. * BMP, CBC in a.m. (2) Anemia of chronic disease: * Mild, asymptomatic anemia. Will provide HARJINDER with HD in a.m. (3) Sacral decubitus ulcer, stage IV: * Continue pressure offloading * Recommend consultation with wound care * Recommend continuing PT/OT (4) Weakness: * Unable to perform transfers at home despite 3 weeks intensive physical therapy at [facility] * Recommend consultation with case management to explore SNF options History of Present Illness Reason for Consultation: ESKD-D Attending Physician: Maria De Jesus Alford MD History of Present Illness Mr. Escobedo is a 78-year-old male who is seen at the request of [facility] hospitalist service to provide inpatient hemodialysis and assist with medical management. Information for the HPI is obtained from direct patient interview and review of EMR. HPI is summarized as follows: Mr. 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 He currently dialyzes MWF at [facility] under the care of Dr. Paul. Outpatient hemodialysis orders are as follows: 3:15 3K 2.5Ca Na 138 HCO3 37 F-180NR EDW 79.5 kg L arm AVF. Mr. Escobedo was last dialyzed on Friday. He reports no complications. 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 He is paraplegic requiring a motorized scooter to get around. He has an indwelling Perry catheter and has developed a stage IV sacral decubitus ulcer. This has been complicated by osteomyelitis of the sacrum. Patient has completed antibiotic therapy. In order to improve wound healing Mr. Escobedo underwent laparoscopic creation of loop sigmoid colostomy by Dr. Hou 05/19. Mr. Escobedo has since underwent evaluation at several medical facilities to close his sacral decubitus ulcer. This has been difficult because they are unable to offload pressure from the site. He is currently he is under the care of wound center at [facility]. Mr. Escobedo was last hospitalized at [facility] 04/16 04/20 - 04/30/2024 for management of Pseudomonas/Klebsiella UTI and adenovirus infection. He was quite weak throughout his hospitalization and required transfer to [facility] for ongoing physical therapy. Mr. Escobedo reports that he completed 3 weeks of physical therapy at [facility] and was making progress but was discharged home 05/20/2024 when insurance would not cover further inpatient physical therapy. At home Mr. Escobedo was unable to get out of bed. [facility] home health nursing visited him yesterday and called EMS to have him transported back to the hospital for ongoing medical care and to assist with SNF placement. Mr. Escobedo reports that he was last dialyzed on Friday. He currently denies dyspnea or uremic symptoms. Allergies Allergy/AdvReac Type Severity Reaction Status Date / Time tetracycline Allergy Intermediate HIVES Verified 04/25/24 15:40 NSAIDS (Non-Steroidal Allergy Unknown Unknown, Unverified 04/25/24 15:40 Anti-Inflamma on file w/ [facility] morphine AdvReac Intermediate Nausea Verified 04/25/24 15:40 Home Medications Medication Instructions Recorded Confirmed Type cholecalciferol (vitamin D3) 50 50 mcg PO QPM 12/31/19 05/22/24 History mcg (2,000 unit) tablet (Vitamin D3) Wheelchair (Powered) (Power #1 ea 01/04/22 04/25/24 Rx Wheelchair) sevelamer carbonate 800 mg tablet See Rx Instructions .Route .COMPLEX 09/20/22 05/22/24 History alprazolam 0.25 mg tablet 0.25 mg PO HS PRN Anxiety/Panic 10/09/23 05/22/24 Rx attacks #30 tabs Mattress (Air or other) #1 ea 10/21/23 04/25/24 Rx apixaban 2.5 mg tablet (Eliquis) 2.5 mg PO BID #180 tabs 02/03/24 05/22/24 Rx gabapentin 300 mg capsule 600 mg (2 x 300 mg) PO HS #180 caps 03/05/24 05/22/24 Rx atorvastatin 20 mg tablet 20 mg PO DAILY 04/14/24 05/22/24 History metoprolol succinate 25 mg 25 mg PO QAM 04/14/24 05/22/24 History tablet,extended release 24 hr midodrine 5 mg tablet 5 mg PO 3XWK 04/14/24 05/22/24 History vitamin B complex and vitamin C 1 cap PO QAM 04/14/24 05/22/24 History no.20-folic acid 1 mg capsule (Triphrocaps) oxycodone-acetaminophen 5 mg-325 1 tab PO Q6H PRN pain #30 tabs 04/22/24 05/22/24 Rx mg tablet (Percocet) mirtazapine 7.5 mg tablet 7.5 mg PO HS #60 tabs 04/30/24 05/22/24 Rx polyethylene glycol 3350 17 gram 17 g PO DAILY PRN constipation #5 04/30/24 05/22/24 Rx oral powder packet (Miralax) ea Patient History Medical History Encounter for pre-operative examination Lobar pneumonia 08/2022 treated at [facility] inpatient. 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 Shrestha at [facility]>WC BOUND FOR 3 YEARS D/T CYSTS. inhibiting patient to ambulate. 04/25/23: awaiting for surgery to remove the spinal cyst but will need his ulcer wound repaired and healed fully first --> reason for upcoming colostomy. History of CHF (congestive heart failure) Impotence, organic Sleep apnea CPAP PTSD (post-traumatic stress disorder) POST AORTIC DISSECTION Neurogenic bladder Self Catheterization since Aortic repair 4-5X PER DAY Lumbar spinal stenosis Surgical History History of removal of tunneled central venous catheter (CVC) with port removal of perm cath 05/[address] Marroquin S/P arteriovenous (AV) fistula creation left S/P debridement (02/08/22) Sacral Wound Debridment, Sacral bone biopsy(Not Applicable) - Jose Le, DO S/P debridement (06/27/21) Excisional Debridement Sacral Decubitus Ulcer down to muscle level 4cm x 6cm - Ranjeet Myers, DO 06/27/2021 Excisional Debridement of Sacral Decubitus Ulcer Down to Bone, 11cm x 10cm(Not Applicable) - Ranjeet Myers, DO 07/25/2021: MAC 3, ETT 7.5. History of revision of total hip arthroplasty History of arthroplasty of left hip S/P total right hip arthroplasty History of cardioversion mult>FOLLOWS WITH DR. 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 History of gastric bypass 2010 History of cardiac catheterization 2003 - no stents - [facility] in [place] Family History Grandmother Family history of diabetes mellitus Mother Gallbladder disease Father Prostate cancer Myocardial infarction Hypertension Other Family history non-contributory No family history of adverse response to anesthesia Denies family history of Ovarian cancer Breast cancer Colorectal cancer Social History Smoking Status: Never smoker Second Hand Exposure: No; Do You Dip or Chew Tobacco: No; Hx Alcohol Use: No Hx Substance Use: No Preferred Language: Albanian Communication Ability: Effective Visual Impairment: Limited Hearing Ability: Normal Stitch Marker Required: No Beliefs That Will Affect Care: None marital status: Current Living Situation: Spouse Current Living Situation Comment: Home with . Unable to care for patient current occupational status: retired How many Children do You have: 1 Feels Safe at Home: Yes Childhood Exposure to Second-Hand Smoke: Yes (father did ) Diet: regular Diet Comment: low sugar, low phospate caffeine: Yes (tea) during the past year weight has: remained stable Dental Care, Regularly: Yes Physical Activity Frequency: Does not Exercise Physical Activity Frequency Comment: goes to PT twice a week Seatbelt Use: always Sunscreen Use: Yes Do you think of yourself as: straight/heterosexual Gender Identity: Male Assistive Devices: CPAP, Glasses and Wheelchair Review of Systems Constitutional: no fever Eyes: no problem reported Ear, Nose, Mouth, Throat: no problem reported Respiratory: no cough and no dyspnea Cardiovascular: no chest pain Gastrointestinal: no abdominal pain, no nausea and no vomiting Integumentary: no rash Physical Exam Constitutional: not in distress Eyes: PERRL, conjunctivae normal, anicteric sclerae ENMT: external ear and nose normal, oropharynx normal Neck: trachea midline, no thyromegaly Respiratory: normal respiratory effort, lungs clear to auscultation Cardiovascular: RRR, no murmur, no edema AVF + bruit Gastrointestinal (Abdomen): normal bowel sounds, soft, nontender, no hepatosplenomegaly Skin: no rashes, warm and dry Neurologic: Speech / Cognition: normal speech and normal cognition Results & Data Vital Signs (Past 12 Hours) Vital Signs Temp Pulse Resp BP Pulse Ox O2 Del Method 05/23/24 07:49 36.6 C 77 18 134/76 93 BiPAP Laboratory Results Laboratory Results WBC 5.80 K/ul (4.8-10.8) 05/22/24 13:40 RBC 3.12 M/uL (4.70-6.10) L 05/22/24 13:40 Hgb 9.8 g/dl (14.0-18.0) L 05/22/24 13:40 Hct 32.3 % (42.0-52.0) L 05/22/24 13:40 MCV 103.5 fL (80.0-100.0) H 05/22/24 13:40 MCH 31.4 pg (25.0-34.0) 05/22/24 13:40 MCHC 30.3 g/dL (32.0-36.0) L 05/22/24 13:40 RDW Std Deviation 55.8 fL (36.4-46.3) H 05/22/24 13:40 RDW Coeff of Hector 14.7 % (11.5-14.5) H 05/22/24 13:40 Plt Count 177 K/uL (130-400) 05/22/24 13:40 MPV 8.4 fL (9.4-12.4) L 05/22/24 13:40 Immature Gran % (Auto) 0.3 % 05/22/24 13:40 Neut % (Auto) 73.6 % 05/22/24 13:40 Lymph % (Auto) 9.5 % 05/22/24 13:40 [place] % (Auto) 11.7 % 05/22/24 13:40 Eos % (Auto) 4.0 % 05/22/24 13:40 Baso % (Auto) 0.9 % 05/22/24 13:40 Neut # (Auto) 4.27 K/uL (1.40-6.50) 05/22/24 13:40 Lymph # (Auto) 0.55 K/uL (1.20-3.40) L 05/22/24 13:40 [place] # (Auto) 0.68 K/uL (0.11-0.59) H 05/22/24 13:40 Eos # (Auto) 0.23 K/uL (0.00-0.50) 05/22/24 13:40 Baso # (Auto) 0.05 K/uL (0.00-0.20) 05/22/24 13:40 Immature Gran # (Auto) 0.02 K/uL (0.01-0.20) 05/22/24 13:40 Sodium 136 mmol/L (136-145) 05/23/24 08:04 Potassium 4.3 mmol/L (3.5-5.1) 05/23/24 08:04 Chloride 94 mmol/L (98-107) L 05/23/24 08:04 Carbon Dioxide 32 mmol/L (21-32) 05/23/24 08:04 Anion Gap 10 (3-11) 05/23/24 08:04 BUN 42 mg/dl (6-23) H 05/23/24 08:04 Creatinine 4.35 mg/dl (0.6-1.4) H D 05/23/24 08:04 Est Cr Clr Drug Dosing 15.6 ml/min 05/23/24 08:04 eGFR 13.28 05/23/24 08:04 BUN/Creatinine Ratio 9.7 (10-20) L 05/23/24 08:04 Glucose 76 mg/dl (70-99(Fasting)) 05/23/24 08:04 Calcium 9.0 mg/dl (8.6-10.3) 05/23/24 08:04 Magnesium 2.0 mg/dl (1.7-2.4) 05/22/24 13:40 Total Bilirubin 0.6 mg/dl (0.2-1.0) 05/22/24 13:40 AST 25 U/L (13-39) 05/22/24 13:40 ALT 21 U/L (7-52) 05/22/24 13:40 Alkaline Phosphatase 103 U/L (34-104) 05/22/24 13:40 Troponin I High Sens 23.5 pg/ml (0-20) H 05/22/24 15:33 Total Protein 6.1 gm/dl (6.0-8.3) 05/22/24 13:40 Albumin 3.3 gm/dl (3.4-5.0) L 05/22/24 13:40 Globulin 2.8 gm/dl (2.5-4.0) 05/22/24 13:40 Albumin/Globulin Ratio 1.2 (0.9-2) 05/22/24 13:40 TSH 2.266 uIu/ml (0.300-4.500) 05/22/24 13:40 Urine Color Yellow 05/22/24 17:50 Urine Appearance Cloudy (Clear) A 05/22/24 17:50 Urine pH >= 9.0 (4.5-7.5) H 05/22/24 17:50 Ur Specific [place] 1.013 (1.000-1.030) 05/22/24 17:50 Urine Protein 3+ (Negative) H 05/22/24 17:50 Urine Glucose (UA) Trace (Negative) H 05/22/24 17:50 Urine Ketones Negative (Negative) 05/22/24 17:50 Urine Blood Negative (Negative) 05/22/24 17:50 Urine Nitrite Positive (Negative) A 05/22/24 17:50 Urine Bilirubin Negative (Negative) 05/22/24 17:50 Urine Urobilinogen Negative (Negative) 05/22/24 17:50 Ur Leukocyte Esterase 2+ (Negative) H 05/22/24 17:50 Urine WBC (Auto) >50 /hpf (0-5) H 05/22/24 17:50 Urine RBC (Auto) 0-2 /hpf (0-2) 05/22/24 17:50 U Hyaline Cast (Auto) 0-2 /lpf (0-2) 05/22/24 17:50 U Epithel Cells (Auto) 0-2 /hpf (0-2) 05/22/24 17:50 Urine Bacteria (Auto) 2+ (None Seen) H 05/22/24 17:50 Nasal Screen MRSA (PCR) Negative (Negative) 05/22/24 Unknown SARS-CoV-2 (PCR) NEGATIVE (Negative) 05/22/24 Unknown Influenza Type A (PCR) Negative (Neg) 05/22/24 Unknown Influenza Type B (PCR) Negative (Neg) 05/22/24 Unknown RSV (RT-PCR) Negative (Neg) 05/22/24 Unknown Impressions Chest X-Ray 05/22/24 13:39 SINGLE VIEW CHEST CLINICAL HISTORY: Generalized weakness. FINDINGS: An AP, portable, upright chest radiograph is compared to chest x-ray and chest CT dated 04/25/2024. The patient is status post midline sternotomy. The heart is markedly enlarged noting atherosclerotic calcification of the thoracic aorta. There is pulmonary vascular congestion. Atelectasis is noted at both lung bases. No airspace consolidation or large pleural effusion is identified. No pneumothorax is seen. The skeletal structures are osteopenic. The bony thorax is grossly intact. Surgical clips project over the right shoulder. IMPRESSION: Cardiomegaly with evidence of congestive failure. Radiographic follow-up to resolution is recommended. ACT 112: Negative or not required by law. Electronically signed by: Kasi Dai M.D. 05/22/2024 2:09 PM PG Care Time/CCT Total # of Minutes Spent Total Time Spent with Patient: Total time spent is greater than 50% in coordination of care (as documented) at patient's floor/unit and/or counseling patient: Coding Level of Care Code 80911 IN/OBS CONSULT LVL 5,80M Diagnoses ESRD (end stage renal disease) on dialysis N18.6; Z99.2 Anemia of chronic disease D63.8 Sacral decubitus ulcer, stage IV L89.154 Weakness R53.1
[2024-05-23 09:36] LABS: Hematocrit (blood only) 34.6 % (42.0-52.0); Hemoglobin 10.5 g/dl (14.0-18.0); Mean Corpuscular Hemoglobin 31.2 pg (25.0-34.0); Mean Corpuscular Hgb Conc 30.3 g/dL (32.0-36.0); Mean Corpuscular Volume 102.7 fL (80.0-100.0); Mean Platelet Volume 8.8 fL (9.4-12.4); Platelet Count 199 K/uL (130-400); RDW Coefficient of Variation 14.7 % (11.5-14.5); RDW Standard Deviation 55.6 fL (36.4-46.3); Red Blood Count 3.37 M/uL (4.70-6.10)
--- NOTE | 2024-05-23 11:11 | Hospitalist Progress Note ---
Date of Service May 23, 2024 Assessment & Plan (1) Generalized weakness: Plan: This is a 78 y/o male being admitted for generalized weakness and inability to manage at home. Generalized weakness and failure to thrive Will consult PT/OT Also case management for placement (2) ESRD (end stage renal disease) on dialysis: Plan: ESRD on HD -Will consult nephrology for routine MWF dialysis -Cont Sevelamer with meals per home dose -Continue vitamin -Patent receives Micera every 2 weeks with HD it appears from the chart -Monitor Cr and electrolytes (3) Atrial fibrillation: Plan: A fib controlled -Continue Toprol XL 25 mg daily -Cont Eliquis 2.5 mg BID (4) Sacral decubitus ulcer, stage IV: Plan: stage 4 sacral ulcer, present on admission Sacral wound and ostomy management -- no obvious sign of new infection at either site -Will consult wound care for management of both sites (5) Colostomy in place: (6) Wheelchair dependent: (7) Neurogenic bowel: Plan Full code DVT Eliquis Hopefully d/c when placement is secured by SW Admission and Anticipated Discharge Date Admission Date: May 22, 2024 Subjective patient seen and examined, no new complaints tooday, tolerating diet Review of Systems Review of Systems: All systems reviewed are negative, apart from the ones contained in the history. Physical Exam Physical Exam: The patient is awake, alert and oriented 3, well developed and well nourished, normocephalic and atraumatic, lying in bed and in no acute distress. HEENT--PERRL, EOMI, mucous membranes and oropharynx mildly dry Neck--supple. No JVD. No bruits. Thyroid normal, trachea midline, no adenopathy. Heart--normal S1 and S2. No murmurs, rubs or gallops. Lungs--clear bilaterally, no respiratory distress, no accessory muscle use. Abdomen--normal bowel sounds and soft. colostomy in situ Extremities--no cyanosis or clubbing. No edema. Dermatologic--normal skin turgor, normal color, no abnormal lymph nodes, no rash. Neurologic--cranial nerves II through XII grossly intact. Rheumatologic--reduced range of motion. Psychiatric--normal affect. Results & Data Results & Data Vital Signs (Past 12 Hours) Vital Signs Temp Pulse Resp BP Pulse Ox O2 Del Method 05/23/24 09:00 Room Air 05/23/24 07:49 97.9 F 77 18 134/76 93 BiPAP PG Care Time/CCT Total # of Minutes Spent Total Time Spent with Patient: Total time spent is greater than 50% in coordination of care (as documented) at patient's floor/unit and/or counseling patient: Coding Level of Care Code 72420 SUB INP/OBS CARE 2/35MIN Diagnoses Generalized weakness R53.1 ESRD (end stage renal disease) on dialysis N18.6; Z99.2 Permanent atrial fibrillation I48.2 Atrial fibrillation type: permanent Sacral decubitus ulcer, stage IV L89.[address] Z93.3 Wheelchair dependent Z99.3 Neurogenic bowel K59.2 Time Spent (min) 35 (3) Atrial fibrillation Atrial fibrillation type: permanent Qualified Code(s): I48.2 - Chronic atrial fibrillation
[2024-05-24] MEDS: MIDODRINE HCL 2.5 MG TAB PO PRN (08:18)
--- NOTE | 2024-05-24 08:55 | Nephrology Progress Note ---
Date of Service May 24, 2024 Assessment & Plan (1) ESRD (end stage renal disease) on dialysis: Plan: * Will provide HD today according to outpatient orders. HD RN notified * Outpatient HD Rx has been MWF 3h 15m on a 180 optiflux at Qb 450 Qd 800, 3 K, 2.5 calcium. EDW 79.5 kg * Continue midodrine pre-HD * Continue low potassium/HD diet * Continue daily renal MVI. Sevelamer QAC. * BMP, CBC in a.m. (2) Anemia of chronic disease: Plan: * Mild, asymptomatic anemia. Will provide HARJINDER with HD today (3) Sacral decubitus ulcer, stage IV: Plan: * Continue pressure offloading * Recommend consultation with wound care * Recommend resuming PT/OT (4) Weakness: Plan: * Unable to perform transfers at home despite 3 weeks intensive physical therapy at [facility] * Await case management recommendations for SNF options Admission and Anticipated Discharge Date Admission Date: May 22, 2024 Subjective Mr. Escobedo was evaluated in his hospital room this morning. He was preparing for HD. He denied fever, dyspnea or uremic symptoms. He reports weakness and needs assistance w/ ADL's Review of Systems Constitutional: no fever Eyes: no problem reported Ear, Nose, Mouth, Throat: no problem reported Respiratory: no cough and no dyspnea Cardiovascular: no chest pain Gastrointestinal: no abdominal pain, no nausea and no vomiting Integumentary: no rash Physical Exam Constitutional: not in distress Eyes: PERRL, conjunctivae normal, anicteric sclerae ENMT: external ear and nose normal, oropharynx normal Neck: trachea midline, no thyromegaly Respiratory: normal respiratory effort, lungs clear to auscultation Cardiovascular: RRR, no murmur, no edema Gastrointestinal (Abdomen): normal bowel sounds, soft, nontender, no hepatosplenomegaly Skin: no rashes, warm and dry Neurologic: Speech / Cognition: normal speech and normal cognition Results & Data Vital Signs (Past 12 Hours) Vital Signs Temp Pulse Resp BP Pulse Ox O2 Del Method 05/24/24 07:41 36.7 C 74 16 125/75 97 Room Air Laboratory Results Laboratory Results - last 24 hr 05/23/24 08:04 WBC 5.30 RBC 3.37 L Hgb 10.5 L Hct 34.6 L MCV 102.7 H MCH 31.2 MCHC 30.3 L RDW Std Deviation 55.6 H RDW Coeff of Hector 14.7 H Plt Count 199 MPV 8.8 L Sodium 136 Potassium 4.3 Chloride 94 L Carbon Dioxide 32 Anion Gap 10 BUN 42 H Creatinine 4.35 H D Est Cr Clr Drug Dosing 15.6 eGFR 13.28 BUN/Creatinine Ratio 9.7 L Glucose 76 Calcium 9.0 PG Care Time/CCT Total # of Minutes Spent Total Time Spent with Patient: Total time spent is greater than 50% in coordination of care (as documented) at patient's floor/unit and/or counseling patient: Coding Level of Care Code 13391 SUB INP/OBS CARE 3/50MIN Diagnoses ESRD (end stage renal disease) on dialysis N18.6; Z99.2 Anemia of chronic disease D63.8 Sacral decubitus ulcer, stage IV L89.154 Weakness R53.1
[2024-05-24 09:54] LABS: Hematocrit (blood only) 30.2 % (42.0-52.0); Hemoglobin 9.4 g/dl (14.0-18.0); Mean Corpuscular Hemoglobin 31.2 pg (25.0-34.0); Mean Corpuscular Hgb Conc 31.1 g/dL (32.0-36.0); Mean Corpuscular Volume 100.3 fL (80.0-100.0); Mean Platelet Volume 8.5 fL (9.4-12.4); Platelet Count 182 K/uL (130-400); RDW Coefficient of Variation 14.6 % (11.5-14.5); RDW Standard Deviation 54.1 fL (36.4-46.3); Red Blood Count 3.01 M/uL (4.70-6.10); White Blood Count 6.39 K/ul (4.8-10.8)
[2024-05-24 10:18] LABS: Calcium 8.6 mg/dl (8.6-10.3); Creatinine Clr Calc Pharmacy 12.8 ml/min; Potassium 4.4 mmol/L (3.5-5.1)
--- NOTE | 2024-05-24 10:34 | Hospitalist Progress Note ---
Date of Service May 24, 2024 Assessment & Plan (1) Generalized weakness: Plan: This is a 78 y/o male being admitted for generalized weakness and inability to manage at home. Generalized weakness and failure to thrive Participating in PT/OT Also case management on board for placement (2) ESRD (end stage renal disease) on dialysis: Plan: ESRD on HD - routine MWF dialysis -Cont Sevelamer with meals per home dose -Continue vitamin -Patent receives Micera every 2 weeks with HD it appears from the chart -Monitor Cr and electrolytes -Nephrology on board (3) Atrial fibrillation: Plan: A fib controlled -Continue Toprol XL 25 mg daily -Cont Eliquis 2.5 mg BID (4) Sacral decubitus ulcer, stage IV: Plan: stage 4 sacral ulcer, present on admission Sacral wound and ostomy management -- no obvious sign of new infection at either site -Will consult wound care for management of both sites (5) Colostomy in place: (6) Wheelchair dependent: (7) Neurogenic bowel: Plan Full code DVT Eliquis Hopefully d/c when placement is secured by SW Admission and Anticipated Discharge Date Admission Date: May 22, 2024 Subjective patient seen and examined, getting ready for HD Review of Systems Review of Systems: All systems reviewed are negative, apart from the ones contained in the history. Physical Exam Physical Exam: The patient is awake, alert and oriented 3, well developed and well nourished, normocephalic and atraumatic, lying in bed and in no acute distress. HEENT--PERRL, EOMI, mucous membranes and oropharynx mildly dry Neck--supple. No JVD. No bruits. Thyroid normal, trachea midline, no adenopathy. Heart--normal S1 and S2. No murmurs, rubs or gallops. Lungs--clear bilaterally, no respiratory distress, no accessory muscle use. Abdomen--normal bowel sounds and soft. colostomy in situ Extremities--no cyanosis or clubbing. No edema. Dermatologic--normal skin turgor, normal color, no abnormal lymph nodes, no rash. Neurologic--cranial nerves II through XII grossly intact. Rheumatologic--reduced range of motion. Psychiatric--normal affect. Results & Data Results & Data Vital Signs (Past 12 Hours) Vital Signs Temp Pulse Pulse Pulse Resp BP BP 05/24/24 10:00 80 111/64 10/28/24 09:30 72 124/73 05/24/24 09:15 55 L 128/84 05/24/24 09:05 98.1 F 72 05/24/24 08:20 05/24/24 07:41 98.1 F 74 16 125/75 Pulse Ox O2 Del Method 05/24/24 10:00 05/24/24 09:30 05/24/24 09:15 05/24/24 09:05 05/24/24 08:20 Room Air 05/24/24 07:41 97 Room Air PG Care Time/CCT Total # of Minutes Spent Total Time Spent with Patient: Total time spent is greater than 50% in coordination of care (as documented) at patient's floor/unit and/or counseling patient: Coding Level of Care Code 77156 SUB INP/OBS CARE 2/35MIN Diagnoses Generalized weakness R53.1 ESRD (end stage renal disease) on dialysis N18.6; Z99.2 Permanent atrial fibrillation I48.2 Atrial fibrillation type: permanent Sacral decubitus ulcer, stage IV L89.[address] Z93.3 Wheelchair dependent Z99.3 Neurogenic bowel K59.2 Time Spent (min) 35 (3) Atrial fibrillation Atrial fibrillation type: permanent Qualified Code(s): I48.2 - Chronic atrial fibrillation
[2024-05-24] MEDS: EPOETIN ALFA 10,000 UNITS/ML VIAL IV ONE (11:31)
[2024-05-25 08:28] LABS: Hematocrit (blood only) 30.1 % (42.0-52.0); Hemoglobin 9.3 g/dl (14.0-18.0); Mean Corpuscular Hemoglobin 31.1 pg (25.0-34.0); Mean Corpuscular Hgb Conc 30.9 g/dL (32.0-36.0); Mean Corpuscular Volume 100.7 fL (80.0-100.0); Mean Platelet Volume 8.9 fL (9.4-12.4); Platelet Count 186 K/uL (130-400); RDW Coefficient of Variation 14.6 % (11.5-14.5); RDW Standard Deviation 53.8 fL (36.4-46.3); Red Blood Count 2.99 M/uL (4.70-6.10); White Blood Count 5.36 K/ul (4.8-10.8)
--- NOTE | 2024-05-25 09:01 | Nephrology Progress Note ---
Date of Service May 25, 2024 Assessment & Plan (1) ESRD (end stage renal disease) on dialysis: Plan: * Will provide HD today according to outpatient orders. HD RN notified * Outpatient HD Rx has been MWF 3h 15m on a 180 optiflux at Qb 450 Qd 800, 3 K, 2.5 calcium. EDW 79.5 kg * Continue midodrine pre-HD * Continue low potassium/HD diet * Continue daily renal MVI. Sevelamer QAC. * BMP, CBC in a.m. (2) Anemia of chronic disease: Plan: * Mild, asymptomatic anemia. Will provide HARJINDER with HD today (3) Sacral decubitus ulcer, stage IV: Plan: * Continue pressure offloading * Recommend consultation with wound care * Recommend resuming PT/OT (4) Weakness: Plan: * Unable to perform transfers at home despite 3 weeks intensive physical therapy at [facility] * Await case management recommendations for SNF options Admission and Anticipated Discharge Date Admission Date: May 22, 2024 Subjective Mr. Escobedo was evaluated in his hospital room this morning. He was preparing for HD. He denied fever, dyspnea or uremic symptoms. He reports weakness and needs assistance w/ ADL's Review of Systems Constitutional: no fever Eyes: no problem reported Ear, Nose, Mouth, Throat: no problem reported Respiratory: no cough and no dyspnea Cardiovascular: no chest pain Gastrointestinal: no abdominal pain, no nausea and no vomiting Integumentary: no rash Physical Exam Constitutional: not in distress Eyes: PERRL, conjunctivae normal, anicteric sclerae ENMT: external ear and nose normal, oropharynx normal Neck: trachea midline, no thyromegaly Respiratory: normal respiratory effort, lungs clear to auscultation Cardiovascular: RRR, no murmur, no edema Gastrointestinal (Abdomen): normal bowel sounds, soft, nontender, no hepatosplenomegaly Skin: no rashes, warm and dry Neurologic: Speech / Cognition: normal speech and normal cognition Results & Data Vital Signs (Past 12 Hours) Vital Signs Temp Pulse Resp BP Pulse Ox O2 Del Method 05/25/24 08:51 Room Air, CPAP 05/25/24 07:39 36.4 C L 78 16 118/77 96 Room Air Laboratory Results Laboratory Results - last 24 hr 05/24/24 05/25/24 04:44 07:22 WBC 6.39 5.36 RBC 3.01 L 2.99 L Hgb 9.4 L 9.3 L Hct 30.2 L 30.1 L MCV 100.3 H 100.7 H MCH 31.2 31.1 MCHC 31.1 L 30.9 L RDW Std Deviation 54.1 H 53.8 H RDW Coeff of Hector 14.6 H 14.6 H Plt Count 182 186 MPV 8.5 L 8.9 L Sodium 131 L Potassium 4.4 Chloride 93 L Carbon Dioxide 29 Anion Gap 9 BUN 53 H Creatinine 5.32 H* D Est Cr Clr Drug Dosing 12.8 eGFR 10.43 BUN/Creatinine Ratio 10.0 Glucose 98 Calcium 8.6 PG Care Time/CCT Total # of Minutes Spent Total Time Spent with Patient: Total time spent is greater than 50% in coordination of care (as documented) at patient's floor/unit and/or counseling patient: Coding Level of Care Code 75182 SUB INP/OBS CARE 3/50MIN Diagnoses ESRD (end stage renal disease) on dialysis N18.6; Z99.2 Anemia of chronic disease D63.8 Sacral decubitus ulcer, stage IV L89.154 Weakness R53.1
--- NOTE | 2024-05-25 10:37 | Hospitalist Progress Note ---
Date of Service May 25, 2024 Assessment & Plan (1) Generalized weakness: Plan: This is a 78 y/o male being admitted for generalized weakness and inability to manage at home. Generalized weakness and failure to thrive Participating in PT/OT Also case management on board for placement (2) UTI (urinary tract infection): Plan: urine cultures growing Pseudomonas Aureginosa and klebsiella Oxytoca both sensitive to Ciprofloxacin continue PO Ciprofloxacin 250mg BID. Today, 05/25 is day 1 (3) ESRD (end stage renal disease) on dialysis: Plan: ESRD on HD - routine MWF dialysis -Cont Sevelamer with meals per home dose -Continue vitamin -Patent receives Micera every 2 weeks with HD it appears from the chart -Monitor Cr and electrolytes -Nephrology on board (4) Atrial fibrillation: Plan: A fib controlled -Continue Toprol XL 25 mg daily -Cont Eliquis 2.5 mg BID (5) Sacral decubitus ulcer, stage IV: Plan: stage 4 sacral ulcer, present on admission Sacral wound and ostomy management -- no obvious sign of new infection at either site -Will consult wound care for management of both sites (6) Colostomy in place: (7) Wheelchair dependent: (8) Neurogenic bowel: Plan Full code DVT Eliquis Hopefully d/c when placement is secured by SW Admission and Anticipated Discharge Date Admission Date: May 22, 2024 Subjective patient seen and examined, no new complaints Review of Systems Review of Systems: All systems reviewed are negative, apart from the ones contained in the history. Physical Exam Physical Exam: The patient is awake, alert and oriented 3, well developed and well nourished, normocephalic and atraumatic, lying in bed and in no acute distress. HEENT--PERRL, EOMI, mucous membranes and oropharynx mildly dry Neck--supple. No JVD. No bruits. Thyroid normal, trachea midline, no adenopathy. Heart--normal S1 and S2. No murmurs, rubs or gallops. Lungs--clear bilaterally, no respiratory distress, no accessory muscle use. Abdomen--normal bowel sounds and soft. colostomy in situ Extremities--no cyanosis or clubbing. No edema. Dermatologic--normal skin turgor, normal color, no abnormal lymph nodes, no rash. Neurologic--cranial nerves II through XII grossly intact. Rheumatologic--reduced range of motion. Psychiatric--normal affect. Results & Data Results & Data Vital Signs (Past 12 Hours) Vital Signs Temp Pulse Resp BP Pulse Ox O2 Del Method 05/25/24 08:51 Room Air, CPAP 05/25/24 07:39 97.5 F L 78 16 118/77 96 Room Air PG Care Time/CCT Total # of Minutes Spent Total Time Spent with Patient: Total time spent is greater than 50% in coordination of care (as documented) at patient's floor/unit and/or counseling patient: Coding Level of Care Code 70450 SUB INP/OBS CARE 2/35MIN Diagnoses Generalized weakness R53.1 UTI (urinary tract infection) N39.0 ESRD (end stage renal disease) on dialysis N18.6; Z99.2 Permanent atrial fibrillation I48.2 Atrial fibrillation type: permanent Sacral decubitus ulcer, stage IV L89.[address] Z93.3 Wheelchair dependent Z99.3 Neurogenic bowel K59.2 Time Spent (min) 35 (4) Atrial fibrillation Atrial fibrillation type: permanent Qualified Code(s): I48.2 - Chronic atrial fibrillation
[2024-05-25] MEDS: CIPROFLOXACIN 500 MG TAB PO SCH (10:42)
[2024-05-26] MEDS ORDERED: HYDROmorphone INJ 0.5 MG/0.5 ML SYR IV PRN (08:01)
[2024-05-26] MEDS ORDERED: HYDROmorphone INJ 1 MG/ML SYRINGE IV PRN (08:01)
--- NOTE | 2024-05-26 08:08 | Hospitalist Progress Note ---
Date of Service May 26, 2024 Assessment & Plan (1) Generalized weakness: Plan: This is a 78 y/o male being admitted for generalized weakness and inability to manage at home. chronically parapelegic, has ostomy and decubitus ulcer Generalized weakness and failure to thrive need of parenteral pain control from decubitus ulcer, also ordered po oxycodone to help Participating in PT/OT Also case management on board for placement (2) UTI (urinary tract infection): Plan: urine cultures growing Pseudomonas Aureginosa and klebsiella Oxytoca both sensitive to Ciprofloxacin continue PO Ciprofloxacin 250mg BID. Today, LD 05/01 (3) ESRD (end stage renal disease) on dialysis: Plan: ESRD on HD - routine MWF dialysis -Cont Sevelamer with meals per home dose -Continue vitamin -Patent receives Micera every 2 weeks with HD it appears from the chart -Monitor Cr and electrolytes -Nephrology on board, iron replacement held with elevated ferritin (4) Atrial fibrillation: Plan: A fib rate controlled -Continue Toprol XL 25 mg daily -Cont Eliquis 2.5 mg BID (5) Sacral decubitus ulcer, stage IV: Plan: stage 4 sacral ulcer, present on admission Sacral wound and ostomy management -- no obvious sign of new infection at either site -Will consult wound care for management of both sites Plan Full code DVT Eliquis Hopefully d/c when placement is secured by SW Admission and Anticipated Discharge Date Admission Date: May 22, 2024 Subjective pt was seen after dialysis, leg pain is his biggest issue, this is his chronic issue and associated with his paralysis Physical Exam Physical Exam: awake,left hip is not tender over Greater troch although he stays his pain is mostly left hip otherwise admits to weakness and not being able to help himself at home supportive of snf rehab decision Results & Data Results & Data Vital Signs (Past 12 Hours) Vital Signs Temp Pulse Resp BP Pulse Ox O2 Del Method 05/26/24 07:30 Room Air 05/26/24 07:09 99.0 F 100 H 16 137/88 94 Room Air 05/25/24 23:00 Room Air 05/25/24 21:19 Room Air Laboratory Results reviewed iron and tibc, likely anemia of chronic inflammation PG Care Time/CCT Total # of Minutes Spent Total Time Spent with Patient: Total time spent is greater than 50% in coordination of care (as documented) at patient's floor/unit and/or counseling patient: Coding Level of Care Code 59012 SUB INP/OBS CARE 350MIN Diagnoses Generalized weakness R53.1 UTI (urinary tract infection) N39.0 ESRD (end stage renal disease) on dialysis N18.6; Z99.2 Permanent atrial fibrillation I48.2 Atrial fibrillation type: permanent Sacral decubitus ulcer, stage IV L89.154 (4) Atrial fibrillation Atrial fibrillation type: permanent Qualified Code(s): I48.2 - Chronic atrial fibrillation
--- NOTE | 2024-05-26 08:52 | Nephrology Progress Note ---
Date of Service May 26, 2024 Assessment & Plan (1) ESRD (end stage renal disease) on dialysis: Plan: * Will provide HD today according to outpatient orders. HD RN notified * Outpatient HD Rx has been MWF 3h 15m on a 180 optiflux at Qb 450 Qd 800, 3 K, 2.5 calcium. EDW 79.5 kg * Continue midodrine pre-HD * Continue low potassium/HD diet * Continue daily renal MVI. Sevelamer QAC. * BMP, CBC in a.m. (2) Anemia of chronic disease: Plan: * Mild, asymptomatic anemia. Will provide HARJINDER with HD today * Hold IV iron due to elevated ferritin (3) Sacral decubitus ulcer, stage IV: Plan: * Continue pressure offloading * Recommend consultation with wound care * Recommend resuming PT/OT (4) Weakness: Plan: * Unable to perform transfers at home despite 3 weeks intensive physical therapy at [facility] * Await case management recommendations for SNF options Admission and Anticipated Discharge Date Admission Date: May 22, 2024 Subjective Mr. Escobedo was evaluated in his hospital room this morning. He was preparing for HD. He denied fever, dyspnea or uremic symptoms. Review of Systems Constitutional: no fever Eyes: no problem reported Ear, Nose, Mouth, Throat: no problem reported Respiratory: no cough and no dyspnea Cardiovascular: no chest pain Gastrointestinal: no abdominal pain, no nausea and no vomiting Integumentary: no rash Physical Exam Constitutional: not in distress Eyes: PERRL, conjunctivae normal, anicteric sclerae ENMT: external ear and nose normal, oropharynx normal Neck: trachea midline, no thyromegaly Respiratory: normal respiratory effort, lungs clear to auscultation Cardiovascular: RRR, no murmur, no edema Gastrointestinal (Abdomen): normal bowel sounds, soft, nontender, no hepatosplenomegaly Skin: no rashes, warm and dry Neurologic: Speech / Cognition: normal speech and normal cognition Results & Data Vital Signs (Past 12 Hours) Vital Signs Temp Pulse Resp BP Pulse Ox O2 Del Method 05/26/24 07:30 Room Air 05/26/24 07:09 37.2 C 100 H 16 137/88 94 Room Air 05/25/24 23:00 Room Air 05/25/24 21:19 Room Air Laboratory Results Laboratory Results - last 24 hr 10/30/24 08:26 Iron 21 L TIBC 163 L Unsaturated IBC 142 L Transferrin % Sat 13 L Ferritin 1340.5 H PG Care Time/CCT Total # of Minutes Spent Total Time Spent with Patient: Total time spent is greater than 50% in coordination of care (as documented) at patient's floor/unit and/or counseling patient: Coding Level of Care Code 54342 SUB INP/OBS CARE 3/50MIN Diagnoses ESRD (end stage renal disease) on dialysis N18.6; Z99.2 Anemia of chronic disease D63.8 Sacral decubitus ulcer, stage IV L89.154 Weakness R53.1
[2024-05-26] MEDS: EPOETIN ALFA 10,000 UNITS/ML VIAL IV ONE (09:15)
[2024-05-26 09:38] LABS: Ferritin 1340.5 ng/ml (8-388)
[2024-05-26] MEDS: oxyCODONE HCL IR 5 MG TAB (IMMEDIATE RELEASE) PO PRN (21:21)
--- NOTE | 2024-05-27 07:43 | Hospitalist Progress Note ---
Date of Service May 27, 2024 Assessment & Plan (1) Generalized weakness: Plan: This is a 78 y/o male being admitted for generalized weakness and inability to manage at home. chronically parapelegic, has ostomy and decubitus ulcer Generalized weakness and failure to thrive need of parenteral pain control from decubitus ulcer, started transderm Fentanyl 25 mcg 05/27, continue po oxycodone Participating in PT/OT Also case management on board for placement (2) UTI (urinary tract infection): Plan: urine cultures growing Pseudomonas Aureginosa and klebsiella Oxytoca both sensitive to Ciprofloxacin continue PO Ciprofloxacin 250mg BID., LD 06/01 (3) ESRD (end stage renal disease) on dialysis: Plan: ESRD on HD - routine MWF dialysis -Cont Sevelamer with meals per home dose -Continue vitamin -Patent receives Micera every 2 weeks with HD it appears from the chart -Monitor Cr and electrolytes -Nephrology on board, iron replacement held with elevated ferritin (4) Atrial fibrillation: Plan: A fib rate controlled -Continue Toprol XL 25 mg daily -Cont Eliquis 2.5 mg BID (5) Sacral decubitus ulcer, stage IV: Plan: stage 4 sacral ulcer, present on admission Sacral wound and ostomy management -- no obvious sign of new infection at either site -Will consult wound care for management of both sites Plan Full code DVT Eliquis Hopefully d/c when placement is secured by SW Admission and Anticipated Discharge Date Admission Date: May 22, 2024 Subjective pts biggest issue is 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, discussed and agreed to start fentanyl patch, continue as needed oxycodone as we explore snf options that can support his dialysis Physical Exam Physical Exam: c/o pain in hips and spine typical location, worse in severity lungs are clear Results & Data Results & Data Vital Signs (Past 12 Hours) Vital Signs Temp Pulse Pulse Resp BP Pulse Ox O2 Del Method 05/27/24 07:12 98.8 F 93 H 16 129/85 96 CPAP 05/27/24 00:06 CPAP 05/27/24 00:06 98 F 76 16 136/82 95 Room Air 05/26/24 23:25 97.5 F L 79 16 149/85 H 97 CPAP Laboratory Results reviewed cbc-stable anemia reviewed chemistry mild hyponatremia , Ch Renal failure PG Care Time/CCT Total # of Minutes Spent Total Time Spent with Patient: Total time spent is greater than 50% in coordination of care (as documented) at patient's floor/unit and/or counseling patient: Coding Level of Care Code 62971 SUB INP/OBS CARE 3/50MIN Diagnoses Generalized weakness R53.1 UTI (urinary tract infection) N39.0 ESRD (end stage renal disease) on dialysis N18.6; Z99.2 Permanent atrial fibrillation I48.2 Atrial fibrillation type: permanent Sacral decubitus ulcer, stage IV L89.154 (4) Atrial fibrillation Atrial fibrillation type: permanent Qualified Code(s): I48.2 - Chronic atrial fibrillation
--- NOTE | 2024-05-27 09:13 | Nephrology Progress Note ---
Date of Service May 27, 2024 Assessment & Plan (1) ESRD (end stage renal disease) on dialysis: Plan: * Volume status is acceptable. Awaiting am labs. Plan next HD for am * Outpatient HD Rx has been MWF 3h 15m on a 180 optiflux at Qb 450 Qd 800, 3 K, 2.5 calcium. EDW 79.5 kg * Continue midodrine pre-HD * Continue daily renal MVI. Sevelamer QAC. (2) Anemia of chronic disease: Plan: * Mild, asymptomatic anemia. HARJINDER being given w/ HD * Hold IV iron due to elevated ferritin (3) Sacral decubitus ulcer, stage IV: Plan: * Continue pressure offloading * Continue PT/OT * Wound care has been cleaning sacral decubitus on a daily basis and recommends repositioning every 2 hrs (4) Weakness: Plan: * Unable to perform transfers at home despite 3 weeks intensive physical therapy at [facility] * Case management researching SNF options Admission and Anticipated Discharge Date Admission Date: May 22, 2024 Subjective Mr. Escobedo was evaluated in his hospital room this morning. He denied fever, dyspnea or uremic symptoms. He is on an air mattress but continues to c/o back and leg discomfort Review of Systems Constitutional: no fever Eyes: no problem reported Ear, Nose, Mouth, Throat: no problem reported Respiratory: no cough and no dyspnea Cardiovascular: no chest pain Gastrointestinal: no abdominal pain, no nausea and no vomiting Integumentary: no rash Physical Exam Constitutional: not in distress Eyes: PERRL, conjunctivae normal, anicteric sclerae ENMT: external ear and nose normal, oropharynx normal Neck: trachea midline, no thyromegaly Respiratory: normal respiratory effort, lungs clear to auscultation Cardiovascular: RRR, no murmur, no edema Gastrointestinal (Abdomen): normal bowel sounds, soft, nontender, no hepatosplenomegaly Skin: no rashes, warm and dry Neurologic: Speech / Cognition: normal speech and normal cognition Results & Data Vital Signs (Past 12 Hours) Vital Signs Temp Pulse Pulse Resp BP Pulse Ox O2 Del Method 05/27/24 07:12 37.1 C 93 H 16 129/85 96 CPAP 05/27/24 00:06 CPAP 05/27/24 00:06 36.6 C 76 16 136/82 95 Room Air 05/26/24 23:25 36.4 C L 79 16 149/85 H 97 CPAP Laboratory Results pending PG Care Time/CCT Total # of Minutes Spent Total Time Spent with Patient: Total time spent is greater than 50% in coordination of care (as documented) at patient's floor/unit and/or counseling patient: Coding Level of Care Code 04239 SUB INP/OBS CARE 3/50MIN Diagnoses ESRD (end stage renal disease) on dialysis N18.6; Z99.2 Anemia of chronic disease D63.8 Sacral decubitus ulcer, stage IV L89.154 Weakness R53.1
[2024-05-27] MEDS: fentaNYL 25 MCG/HR TDSY TD SCH (10:17)
[2024-05-27] MEDS: HYDROmorphone INJ 0.5 MG/0.5 ML SYR IV STA (10:17)
[2024-05-27 11:14] LABS: Hematocrit (blood only) 29.4 % (42.0-52.0); Hemoglobin 9.1 g/dl (14.0-18.0); Mean Corpuscular Hemoglobin 31.5 pg (25.0-34.0); Mean Corpuscular Volume 101.7 fL (80.0-100.0); Mean Platelet Volume 8.9 fL (9.4-12.4); Platelet Count 179 K/uL (130-400); RDW Coefficient of Variation 14.7 % (11.5-14.5); RDW Standard Deviation 55.1 fL (36.4-46.3); Red Blood Count 2.89 M/uL (4.70-6.10); White Blood Count 5.53 K/ul (4.8-10.8)
[2024-05-27 11:25] LABS: Calcium 8.7 mg/dl (8.6-10.3); Creatinine Clr Calc Pharmacy 18.1 ml/min; Potassium 4.7 mmol/L (3.5-5.1)
[2024-05-27] MEDS: CHECK fentaNYL PATCH PLACEMENT SCH (15:55)
--- NOTE | 2024-05-28 09:02 | Nephrology Progress Note ---
Date of Service May 28, 2024 Assessment & Plan (1) ESRD (end stage renal disease) on dialysis: Plan: * HD today. Will attempt 3 L UF * Outpatient HD Rx has been MWF 3h 15m on a 180 optiflux at Qb 450 Qd 800, 3 K, 2.5 calcium. EDW 79.5 kg * Continue midodrine pre-HD * Continue daily renal MVI. Sevelamer QA. (2) Anemia of chronic disease: Plan: * Mild, asymptomatic anemia. HARJINDER being given w/ HD * Hold IV iron due to elevated ferritin (3) Sacral decubitus ulcer, stage IV: Plan: * Continue pressure offloading * Continue PT/OT * Wound care has been cleaning sacral decubitus on a daily basis and recommends repositioning every 2 hrs * On gabapentin 600 qHS, q3d fentanyl patch 25 mcg/hr (4) Weakness: Plan: * Unable to perform transfers at home despite 3 weeks intensive physical therapy at [facility] * Case management researching SNF options Admission and Anticipated Discharge Date Admission Date: May 22, 2024 Subjective Mr. Escobedo was evaluated while on HD this morning. He denied fever, dyspnea or uremic symptoms. Back and leg discomfort have improved w/ fentanyl patch Review of Systems Constitutional: no fever Eyes: no problem reported Ear, Nose, Mouth, Throat: no problem reported Respiratory: no cough and no dyspnea Cardiovascular: no chest pain Gastrointestinal: no abdominal pain, no nausea and no vomiting Integumentary: no rash Physical Exam Constitutional: not in distress Eyes: PERRL, conjunctivae normal, anicteric sclerae ENMT: external ear and nose normal, oropharynx normal Neck: trachea midline, no thyromegaly Respiratory: normal respiratory effort, lungs clear to auscultation Cardiovascular: RRR, no murmur, no edema Gastrointestinal (Abdomen): normal bowel sounds, soft, nontender, no hepatosplenomegaly Skin: no rashes, warm and dry Neurologic: Speech / Cognition: normal speech and normal cognition Results & Data Vital Signs (Past 12 Hours) Vital Signs Temp Pulse Resp BP Pulse Ox O2 Del Method 05/28/24 07:03 36.7 C 81 16 129/82 96 Room Air Laboratory Results Laboratory Results - last 24 hr 05/27/24 10:53 WBC 5.53 RBC 2.89 L Hgb 9.1 L Hct 29.4 L MCV 101.7 H MCH 31.5 MCHC 31.0 L RDW Std Deviation 55.1 H RDW Coeff of Hector 14.7 H Plt Count 179 MPV 8.9 L Sodium 133 L Potassium 4.7 Chloride 100 Carbon Dioxide 26 Anion Gap 7 BUN 30 H Creatinine 3.75 H Est Cr Clr Drug Dosing 18.1 eGFR 15.87 BUN/Creatinine Ratio 8.0 L Glucose 97 Calcium 8.7 PG Care Time/CCT Total # of Minutes Spent Total Time Spent with Patient: Total time spent is greater than 50% in coordination of care (as documented) at patient's floor/unit and/or counseling patient: Coding Level of Care Code 35873 SUB INP/OBS CARE 3/50MIN Diagnoses ESRD (end stage renal disease) on dialysis N18.6; Z99.2 Anemia of chronic disease D63.8 Sacral decubitus ulcer, stage IV L89.154 Weakness R53.1
[2024-05-28] MEDS: EPOETIN ALFA 10,000 UNITS/ML VIAL IV ONE (10:52)
[2024-05-28] MEDS: oxyCODONE HCL IR 5 MG TAB (IMMEDIATE RELEASE) PO PRN (16:29)
--- NOTE | 2024-05-28 20:58 | Hospitalist Progress Note ---
Date of Service May 28, 2024 Assessment & Plan (1) Generalized weakness: Plan: 78 years old male with PMH of FULL CODE @ home, chronic AFIB on metoprolol 25mg PO daily and apixaban 2.5mg PO bid, CKD stage V on HD , overweight with BMI 25.1 (height 183.0 cm; weight 83.8 kg), bedbound/paraplegic with inability to transfer from bed to chair with Odette lift, chronic pain disorder due to chronic stage IV sacral decubitus present on admission date 05/22/2024--malodorous with light brown suppuration, deemed a poor surgical candidate for myocutaneous flap/grafting due to anticipated poor wound healing post-op by Plastic Surgery Service--and a constant nidus of infection for patient's recent Pseudomonas aeruginosa and cefazolin-resistant Klebsiella oxytoca UTI (as noted on 04/25/2024, 5:15pm urine culture), who was admitted to the inpatient hospitalist service @ [facility] on 05/22/2024 with the following diagnoses: 1. Chronic generalized weakness with inability of patient's to care for the patient in their home any longer. 2. Chronic pain disorder due to chronic stage IV sacral decubitus present on admission date 05/22/2024, malodorous with light brown suppuration, deemed a poor surgical candidate for myocutaneous flap/grafting due to anticipated poor wound healing post-op by Plastic Surgery Service. To address #1, patient awaits daily PT/OT Service evaluations to improve patient's deconditioned state, along with Case Management Service evaluation to expedite D/C to SNF for long-term care / placement, which is hindered by the need for such a SNF to accommodate patient's CKD stage V on HD . To address #2, patient continues to receive oxycodone IR 10mg PO q6 prn moderate pain, dilaudid 0.5mg IV q4 prn severe pain (05/26/2024, 8:01am) and fentanyl patch 25ug/hr TD q72h (, 10:00am). (2) UTI (urinary tract infection): Plan: cf., urine culture (05/22/2024, 5:50pm): >100,000 cfu/mL Pseudomonas aeruginosa cf., urine culture (04/25/2024, 5:15pm): >100,000 cfu/mL Pseudomonas aeruginosa and > 100,000 cfu/mL Klebsiella oxytoca, cefazolin-resistant Afebrile, non-toxic genito-urinary exam on ciprofloxacin 500mg PO daily (05/25/2024, 10:30am - 05/30/2024, 10:29am). (3) ESRD (end stage renal disease) on dialysis: Plan: ESRD on HD - routine MWF dialysis -Cont Sevelamer with meals per home dose -Continue vitamin -Patent receives Micera every 2 weeks with HD it appears from the chart -Monitor Cr and electrolytes -Nephrology on board, iron replacement held with elevated ferritin (4) Atrial fibrillation: Plan: Chronic AFIB, rate-controlled with HR 84 bpm (05/28/2024, 12:40pm) on toprol XL 25mg PO daily. Given CHADS2-VASC score = 2 points (e.g., age > 74 years), patient stands to benefit from continued, long-term, active anticoagulation utilizing eliquis 2.5mg PO bid at home and at [facility]. (5) Sacral decubitus ulcer, stage IV: Plan: Chronic stage IV sacral decubitus present on admission date 05/22/2024--malodorous with light brown suppuration, deemed a poor surgical candidate for myocutaneous flap/grafting due to anticipated poor wound healing post-op by Plastic Surgery Service--and a constant nidus of infection for patient's recent Pseudomonas aeruginosa and cefazolin-resistant Klebsiella oxytoca UTI (as noted on 04/25/2024, 5:15pm urine culture). Continue bed position changes q2h while patient remains in bed. Encourage patient to participate with daily PT/OT Services to get out of bed and into a chair, at the very least, as patient remains bedbound and susceptible to further skin breakdown at stage IV sacral decubitus site. Plan Other miscellaneous issue: Code status, FULL CODE @ home with . Condition of patient remains fair. I do not anticipate seismic change(s) in this patient's medical condition--as he appears thoroughly run down and worn out--only small ones strong enough to get t his patient out of [facility] and into a SNF for long-term care/placement. The limiting factor in this patient's hospital disposition will be to identify a SNF that can accommodate this patient's need for hemodialysis on a Fri-Fri-Fri schedule and transport this patient to/from SNF to dialysis center, and back, indefinitely, for the rest of this patient's life. Admission and Anticipated Discharge Date Admission Date: May 22, 2024 Subjective "I feel weak. No energy to sit up in bed." Review of Systems Review of Systems: Negative for antecedent or coincident fevers, chills, sweats, cough, wheeze, sore throat, hemoptysis, chest pains, palpitations, pleurisy, nausea, vomiting, diarrhea, abdominal pain, pelvic pain, flank pain, back pain, shoulder pain, hematemesis, hematochezia, melena, hematuria, dysuria, frequency, urgency, headaches, dizziness, lightheadedness, visual changes, hearing changes, falls, sick contacts, trauma, travel history, or food/drug ingestions novel or new. All other review systems are reported as negative by the patient on 05/28/2024. Physical Exam Physical Exam: General: comfortable, coherent, cooperative. Wide awake and alert. Not confused, lethargic, or obtunded. Patient speaks in complete, fluent, and articulate sentences without pause, interruption, cough, or wheeze. HEENT: NC/AT. EOMI. PERRL. No nystagmus, gaze paresis, anisocoria, miosis, chemosis, mydriasis, hyphema, scleral injection, conjunctivitis, or pterygium. No otorrhea or rhinorrhea. No pharyngeal discharge or erythema. Neck: Supple, no stridor, bruit, goiter, JVD, or HJR. Chest: Symmetric rise and fall with respirations. Lungs: CTA/P. No audible expiratory wheeze, egophony, pectoriloquy, increase in tactile fremitus, or flatness/dullness to percussion at the bases. Heart: RRR, S1 and S2 noted. No S3 or S4 summation gallop. Grade II/ early systolic murmur @ LLSB, without radiation to the carotids, axilla, or back, and which remains invariant in regards to the respiratory cycle. Abdomen: Soft, NT, ND, no organomegaly. Bowel sounds auscultated in all 4 quadrants. Extremities: No clubbing, cyanosis, or edema. 2+ pedal pulses bilaterally. Skin: Stage IV sacral decubitus ulcer present on admission date 05/22/2024, malodorous with light brown suppuration. No exanthem or enanthem. Neurology: Alert and oriented in regards to person, place, time, or situation. 5/5 motor strength in all 4 extremities, both proximally and distally. Urology: No crowe catheter. No urethral discharge. Results & Data Results & Data Vital Signs (Past 12 Hours) Vital Signs Temp Pulse Pulse Pulse Pulse Resp BP 05/28/24 20:03 36.8 C 83 18 05/28/24 13:14 36.6 C 87 16 05/28/24 12:40 36.5 C 84 05/28/24 12:00 64 96/58 L 05/28/24 11:30 67 103/72 05/28/24 11:00 69 121/80 05/28/24 10:30 70 105/70 05/28/24 10:00 72 96/67 L 05/28/24 09:30 75 102/65 05/28/24 09:04 80 106/77 BP Pulse Ox O2 Del Method 05/28/24 20:03 116/78 97 Room Air 05/28/24 13:14 133/80 91 Room Air 05/28/24 12:40 120/77 05/28/24 12:00 05/28/24 11:30 05/28/24 11:00 05/28/24 10:30 05/28/24 10:00 05/28/24 09:30 05/28/24 09:04 Laboratory Results Urine culture (05/22/2024, 5:50pm): >100,000 cfu/mL Pseudomonas aeruginosa Urine culture (04/25/2024, 5:15pm): >100,000 cfu/mL Pseudomonas aeruginosa and > 100,000 cfu/mL Klebsiella oxytoca, cefazolin-resistant WBC 5.80, N74 L10 M12 E4 B1 (05/22/2024, 1:40pm). WBC 5.53, no differential (05/27/2024, 10:53am). BUN 35, creatinine 3.83, GFR 15.5 mL/min (05/22/2024, 1:40pm). BUN 30, creatinine 3.75, GFR 15.9 mL/min (05/27/2024, 10:53am). Hb 9.8, MCV 103.5, MCHC 30.3 (05/22/2024, 1:40pm). Hb 9.1, MCV 101.7, MCHC 31.0 (05/27/2024, 10:53am). Diagnostic Findings EKG (05/22/2024, 1:31pm): AFIB @ 69, QTC 441, LAFB, no acute ST elevations/depressions (by my review). Portable CXR (05/22/2024, 1:39pm): Cardiomegaly with pulmonary vascular congestion. No infiltrate, effusion, or pneumothorax (by my review). TTE (04/08/2024, 1:04pm): LV EF 55-60%. Mild concentric LVH. No regional wall motion abnormalities noted. RV normal size and function. LA/ RA mildly dilated. No ASD. PFO not assessed. No significant AR. Moderate . PV not well visualized. Mild MR. No MS. No TR/TS. Aortic root normal size. No pericardial effusion. (as per CARDS Dr. Simona Candelario). PG Care Time/CCT Total # of Minutes Spent Total Time Spent with Patient: Total time spent is greater than 50% in coordination of care (as documented) at patient's floor/unit and/or counseling patient: Coding Level of Care Code 03854 SUB INP/OBS CARE 2/35MIN Diagnoses Generalized weakness R53.1 UTI (urinary tract infection) N39.0 ESRD (end stage renal disease) on dialysis N18.6; Z99.2 Permanent atrial fibrillation I48.2 Atrial fibrillation type: permanent Sacral decubitus ulcer, stage IV L89.154 (4) Atrial fibrillation Atrial fibrillation type: permanent Qualified Code(s): I48.2 - Chronic atrial fibrillation
[2024-05-29 06:16] LABS: Hematocrit (blood only) 30.4 % (42.0-52.0); Hemoglobin 9.5 g/dl (14.0-18.0); Mean Corpuscular Hemoglobin 31.5 pg (25.0-34.0); Mean Corpuscular Hgb Conc 31.3 g/dL (32.0-36.0); Mean Corpuscular Volume 100.7 fL (80.0-100.0); Platelet Count 203 K/uL (130-400); RDW Coefficient of Variation 14.9 % (11.5-14.5); RDW Standard Deviation 54.8 fL (36.4-46.3); Red Blood Count 3.02 M/uL (4.70-6.10); White Blood Count 5.62 K/ul (4.8-10.8)
[2024-05-29 06:41] LABS: BUN Creatinine Ratio 8.2 (10-20); Calcium 8.6 mg/dl (8.6-10.3); Creatinine Clr Calc Pharmacy 19.2 ml/min; Potassium 4.4 mmol/L (3.5-5.1)
--- NOTE | 2024-05-29 16:14 | Hospitalist Progress Note ---
Date of Service May 29, 2024 Assessment & Plan (1) Generalized weakness: Plan: 78 years old male with PMH of FULL CODE @ home, chronic AFIB on metoprolol 25mg PO daily and apixaban 2.5mg PO bid, chronic euvolemic hyponatremia with baseline Na range, 130-135 mmol/L (07/18/2021 - 04/30/2024), CKD stage V on HD Fri-Fri-Fri, chronic macrocytic, hypochromic anemia with progressive decline in baseline Hb range from 13.5 g/dL (09/12/2017, 11:35am) to 9.5 g/dL (04/30/2024, 9:49am), overweight with BMI 25.1 (height 183.0 cm; weight 83.8 kg), bedbound/paraplegic with inability to transfer from bed to chair with Odette lift, chronic pain disorder due to chronic stage IV sacral decubitus present on admission date 05/22/2024--malodorous with light brown suppuration, deemed a poor surgical candidate for myocutaneous flap/grafting due to anticipated poor wound healing post-op by Plastic Surgery Service--and a constant nidus of infection for patient's recent Pseudomonas aeruginosa and cefazolin-resistant Klebsiella oxytoca UTI (as noted on 04/25/2024, 5:15pm urine culture), who was admitted to the inpatient hospitalist service @ [facility] on 05/22/2024 with the following diagnoses: 1. Chronic generalized weakness with inability of patient's to care for the patient in their home any longer. 2. Chronic pain disorder due to chronic stage IV sacral decubitus present on admission date 05/22/2024, malodorous with light brown suppuration, deemed a poor surgical candidate for myocutaneous flap/grafting due to anticipated poor wound healing post-op by Plastic Surgery Service. To address #1, patient awaits daily PT/OT Service evaluations to improve patient's deconditioned state, along with Case Management Service evaluation to expedite D/C to SNF for long-term care / placement, which is hindered by the need for such a SNF to accommodate patient's CKD stage V on HD -Fri. To address #2, patient continues to receive oxycodone IR 10mg PO q6 prn moderate pain, dilaudid 0.5mg IV q4 prn severe pain (05/26/2024, 8:01am) and fentanyl patch 25ug/hr TD q72h (, 10:00am). (2) UTI (urinary tract infection): Plan: cf., urine culture (05/22/2024, 5:50pm): >100,000 cfu/mL Pseudomonas aeruginosa cf., urine culture (04/25/2024, 5:15pm): >100,000 cfu/mL Pseudomonas aeruginosa and > 100,000 cfu/mL Klebsiella oxytoca, cefazolin-resistant Afebrile, non-toxic genito-urinary exam on ciprofloxacin 500mg PO daily (05/25/2024, 10:30am - 05/30/2024, 10:29am). (3) ESRD (end stage renal disease) on dialysis: Plan: CKD stage V on HD Mon-Wed-Fri. 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 cf., last recorded PO4 3.8 mg/dL (04/30/2024, 9:49am). cf., PO4 (05/29/2024, 4:14pm). -Patent receives Micera every 2 weeks with HD it appears from the chart -Monitor Cr and electrolytes -Nephrology on board, iron replacement held with elevated ferritin (4) Atrial fibrillation: Plan: Chronic AFIB, rate-controlled with HR 84 bpm (05/28/2024, 12:40pm) and HR 72 bpm (05/29/2024, 3:35pm) on toprol XL 25mg PO daily. Given CHADS2-VASC score = 2 points (e.g., age > 74 years), patient stands to benefit from continued, long- term, active anticoagulation utilizing eliquis 2.5mg PO bid at home and at [facility]. (5) Sacral decubitus ulcer, stage IV: Plan: Chronic stage IV sacral decubitus present on admission date 05/22/2024--malodorous with light brown suppuration, deemed a poor surgical candidate for myocutaneous flap/grafting due to anticipated poor wound healing post-op by Plastic Surgery Service--and a constant nidus of infection for patient's recent Pseudomonas aeruginosa and cefazolin-resistant Klebsiella oxytoca UTI (as noted on 04/25/2024, 5:15pm urine culture). Continue bed position changes q2h while patient remains in bed. Encourage patient to participate with daily PT/OT Services to get out of bed and into a chair, at the very least, as patient remains bedbound and susceptible to further skin breakdown at stage IV sacral decubitus site. Plan Other miscellaneous issues: 1. Chronic euvolemic hyponatremia with baseline Na range, 130-135 mmol/L (07/18/2021 - 04/30/2024). cf., Na 138 mmol/L (05/22/2024, 1:40pm). cf., Na 136 mmol/L (05/23/2024, 8:04am). cf., Na 131 mmol/L (05/24/2024, 4:44am). cf., Na 133 mmol/L (05/27/2024, 10:53am). cf., Na 133 mmol/L (05/29/2024, 5:22am). 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 Nonetheless, patient continues to remain asymptomatic with this mild degree of chronic euvolemic hyponatremia and ongoing fluid restriction to 1 liter per 24 hours. 2. Chronic macrocytic, hypochromic anemia with progressive decline in baseline Hb range from 13.5 g/dL (09/12/2017, 11:35am) to 9.5 g/dL (04/30/2024, 9:49am). cf., Hb 9.8 g/dL, MCV 103.5, MCHC 30.3 (05/22/2024, 1:40pm). cf., Hb 10.5 g/dL, MCV 102.7, MCHC 30.3 (05/23/2024, 8:04am). cf., Hb 9.4 g/dL, MCV 100.3, MCHC 31.1 (05/24/2024, 4:44am). cf., Hb 9.3 g/dL, MCV 100.7, MCHC 30.9 (05/25/2024, 7:22am). cf., Hb 9.1 g/dL, MCV 101.7, MCHC 31.0 (05/27/2024, 10:53am). cf., Hb 9.1 g/dL, MCV 101.7, MCHC 31.0 (05/27/2024, 10:53am). Etiology of chronic macrocytic, hypochromic anemia is most probably due to a nemia of chronic disease (e.g., CKD stage V). Hence, patient continues to receive MIRCERA (methoxy polyethylene glycol epoetin beta) q2 weeks with hemodialysis, and which is typically initiated in patients with CKD stage V on HD when their Hb level is less than 10 g/dL and who are not currently receiving an erythropoiesis stimulating agent such as PROCRIT (epoetin nimisha), and which is typically discontinued once their Hb level is greater than 11 g/dL. 3. Code status, FULL CODE @ home with . Condition of patient remains fair. I do not anticipate seismic change(s) in this patient's medical condition--as he appears thoroughly run down and worn out--only small ones strong enough to get this patient out of [facility] and into a SNF for long-term care/placement. The limiting factor in this patient's hospital disposition will be to identify a SNF that can accommodate this patient's need for hemodialysis on a Fri-Fri-Fri schedule and transport this patient to/from SNF to dialysis center, and back, indefinitely, for the rest of this patient's life. Admission and Anticipated Discharge Date Admission Date: June 03, 2024 Subjective "I still feel weak. No energy to sit up in bed. I had dialysis yesterday (05/28/2024); maybe that is why I feel tired today." Review of Systems Review of Systems: Negative for antecedent or coincident fevers, chills, sweats, cough, wheeze, sore throat, hemoptysis, chest pains, palpitations, pleurisy, nausea, vomiting, diarrhea, abdominal pain, pelvic pain, flank pain, back pain, shoulder pain, hematemesis, hematochezia, melena, hematuria, dysuria, frequency, urgency, headaches, dizziness, lightheadedness, visual changes, hearing changes, falls, sick contacts, trauma, travel history, or food/drug ingestions novel or new. All other review systems are reported as negative by the patient on 05/29/2024. Physical Exam Physical Exam: General: comfortable, coherent, cooperative. Wide awake and alert. Not confused, lethargic, or obtunded. Patient speaks in complete, fluent, and articulate sentences without pause, interruption, cough, or wheeze. HEENT: NC/AT. EOMI. PERRL. No nystagmus, gaze paresis, anisocoria, miosis, chemosis, mydriasis, hyphema, scleral injection, conjunctivitis, or pterygium. No otorrhea or rhinorrhea. No pharyngeal discharge or erythema. Neck: Supple, no stridor, bruit, goiter, JVD, or HJR. Chest: Symmetric rise and fall with respirations. Lungs: CTA/P. No audible expiratory wheeze, egophony, pectoriloquy, increase in tactile fremitus, or flatness/dullness to percussion at the bases. Heart: RRR, S1 and S2 noted. No S3 or S4 summation gallop. Grade II/ early systolic murmur @ LLSB, without radiation to the carotids, axilla, or back, and which remains invariant in regards to the respiratory cycle. Abdomen: Soft, NT, ND, no organomegaly. Bowel sounds auscultated in all 4 quadrants. Extremities: No clubbing, cyanosis, or edema. 2+ pedal pulses bilaterally. Skin: Stage IV sacral decubitus ulcer present on admission date 05/22/2024, malodorous with light brown suppuration. No exanthem or enanthem. Neurology: Alert and oriented in regards to person, place, time, or situation. 5/5 motor strength in all 4 extremities, both proximally and distally. Urology: No crowe catheter. No urethral discharge. Results & Data Results & Data Vital Signs (Past 12 Hours) Vital Signs Temp Pulse Resp BP Pulse Ox O2 Del Method 05/29/24 15:35 36.6 C 72 16 117/73 94 Room Air 05/29/24 07:49 36.7 C 85 16 127/77 96 Room Air 05/29/24 07:20 Room Air, CPAP Laboratory Results Urine culture (05/22/2024, 5:50pm): >100,000 cfu/mL Pseudomonas aeruginosa Urine culture (04/25/2024, 5:15pm): >100,000 cfu/mL Pseudomonas aeruginosa and > 100,000 cfu/mL Klebsiella oxytoca, cefazolin-resistant WBC 5.80, N74 L10 M12 E4 B1 (05/22/2024, 1:40pm). WBC 5.53, no differential (05/27/2024, 10:53am). WBC 5.62, no differential (05/29/2024, 5:22am). BUN 35, creatinine 3.83, GFR 15.5 mL/min (05/22/2024, 1:40pm). BUN 30, creatinine 3.75, GFR 15.9 mL/min (05/27/2024, 10:53am). BUN 29, creatinine 3.54, GFR 17.0 mL/min (05/29/2024, 5:22am). Na 138 mmol/L (05/22/2024, 1:40pm). Na 136 mmol/L (05/23/2024, 8:04am). Na 131 mmol/L (05/24/2024, 4:44am). Na 133 mmol/L (05/27/2024, 10:53am). Na 133 mmol/L (05/29/2024, 5:22am). Hb 9.8 g/dL, MCV 103.5, MCHC 30.3 (05/22/2024, 1:40pm). Hb 10.5 g/dL, MCV 102.7, MCHC 30.3 (05/23/2024, 8:04am). Hb 9.4 g/dL, MCV 100.3, MCHC 31.1 (05/24/2024, 4:44am). Hb 9.3 g/dL, MCV 100.7, MCHC 30.9 (05/25/2024, 7:22am). Hb 9.1 g/dL, MCV 101.7, MCHC 31.0 (05/27/2024, 10:53am). Hb 9.1 g/dL, MCV 101.7, MCHC 31.0 (05/27/2024, 10:53am). Diagnostic Findings EKG (05/22/2024, 1:31pm): AFIB @ 69, QTC 441, LAFB, no acute ST elevations/depressions (by my review). Portable CXR (05/22/2024, 1:39pm): Cardiomegaly with pulmonary vascular congestion. No infiltrate, effusion, or pneumothorax (by my review). TTE (04/08/2024, 1:04pm): LV EF 55-60%. Mild concentric LVH. No regional wall motion abnormalities noted. RV normal size and function. LA/ RA mildly dilated. No ASD. PFO not assessed. No significant AR. Moderate . PV not well visualized. Mild MR. No MS. No TR/TS. Aortic root normal size. No pericardial effusion. (as per CARDS Dr. Simona Candelario). PG Care Time/CCT Total # of Minutes Spent Total Time Spent with Patient: Total time spent is greater than 50% in coordination of care (as documented) at patient's floor/unit and/or counseling patient: Coding Level of Care Code 24206 SUB INP/OBS CARE 2/35MIN Diagnoses Generalized weakness R53.1 UTI (urinary tract infection) N39.0 ESRD (end stage renal disease) on dialysis N18.6; Z99.2 Permanent atrial fibrillation I48.2 Atrial fibrillation type: permanent Sacral decubitus ulcer, stage IV L89.154 (4) Atrial fibrillation Atrial fibrillation type: permanent Qualified Code(s): I48.2 - Chronic atrial fibrillation
--- NOTE | 2024-05-30 12:08 | Nephrology Progress Note ---
Date of Service May 30, 2024 Assessment & Plan (1) ESRD (end stage renal disease) on dialysis: (2) Anemia of chronic disease: (3) Hypertension: (4) Sacral decubitus ulcer, stage IV: Plan 78-year-old gentleman with end-stage kidney disease on hemodialysis, Friday, , Friday via left brachiocephalic AV fistula. Admitted with generalized weakness and need for placement. Doing well, clinically stable. Volume status acceptable. Blood pressure fair. -- HD tomorrow. -- Continue on Nephrocaps and phosphate binder -- Epogen 58540 units with dialysis tomorrow. -- Left arm nephrology precaution, dose medications for eGFR less than 10 -- waiting on discharge. Admission and Anticipated Discharge Date Admission Date: May 22, 2024 Subjective Sylvester was seen and evaluated this morning, tolerating HD, IDWG reasonable. Has been having some cough, no F/C. Blood pressure and volume status fair. Electrolyte acceptable, hemoglobin stable. Review of Systems Review of Systems: All systems reviewed & are unremarkable except as noted in Subjective Physical Exam Constitutional: WD/WN, vitals as above no acute distress Respiratory: no respiratory distress Cardiovascular: Rate/Rhythm: regular rate and regular rhythm Heart Sounds: normal S1 and normal S2 Extremities: + AV fistula (left BC AVF with thrill and bruit); no edema Skin: no rashes, warm and dry Neurologic: no focal motor deficits Psychiatric: Orientation: alert and oriented x 3 Affect: euthymic affect Genitourinary: Perry in place Results & Data Vital Signs (Past 12 Hours) Vital Signs Temp Pulse Pulse Resp BP Pulse Ox O2 Del Method 05/30/24 07:15 CPAP 05/30/24 07:05 36.7 C 81 16 128/82 93 Room Air 05/30/24 03:00 36.5 C 68 18 147/82 H 93 Room Air PG Care Time/CCT Total # of Minutes Spent Total Time Spent with Patient: Total time spent is greater than 50% in coordination of care (as documented) at patient's floor/unit and/or counseling patient: Coding Level of Care Code 13649 SUB INP/OBS CARE 2/35MIN Diagnoses ESRD (end stage renal disease) on dialysis N18.6; Z99.2 Anemia of chronic disease D63.8 Essential hypertension I10 Hypertension type: essential hypertension Sacral decubitus ulcer, stage IV L89.154 (3) Hypertension Hypertension type: essential hypertension Qualified Code(s): I10 - Essential (primary) hypertension
--- NOTE | 2024-05-30 20:15 | Hospitalist Progress Note ---
Date of Service May 30, 2024 Assessment & Plan (1) Generalized weakness: Plan: 78 years old male with PMH of FULL CODE @ home, chronic AFIB on metoprolol 25mg PO daily and apixaban 2.5mg PO bid, chronic euvolemic hyponatremia with baseline Na range, 130-135 mmol/L (07/18/2021 - 04/30/2024), CKD stage V on HD Fri-Fri-Fri, chronic macrocytic, hypochromic anemia with progressive decline in baseline Hb range from 13.5 g/dL (09/12/2017, 11:35am) to 9.5 g/dL (04/30/2024, 9:49am), overweight with BMI 25.1 (height 183.0 cm; weight 83.8 kg), bedbound/paraplegic with inability to transfer from bed to chair with Odette lift, chronic pain disorder due to chronic stage IV sacral decubitus present on admission date 05/22/2024--malodorous with light brown suppuration, deemed a poor surgical candidate for myocutaneous flap/grafting due to anticipated poor wound healing post-op by Plastic Surgery Service--and a constant nidus of infection for patient's recent Pseudomonas aeruginosa and cefazolin-resistant Klebsiella oxytoca UTI (as noted on 04/25/2024, 5:15pm urine culture), who was admitted to the inpatient hospitalist service @ [facility] on 05/22/2024 with the following diagnoses: 1. Chronic generalized weakness with inability of patient's to care for the patient in their home any longer. 2. Chronic pain disorder due to chronic stage IV sacral decubitus present on admission date 05/22/2024, malodorous with light brown suppuration, deemed a poor surgical candidate for myocutaneous flap/grafting due to anticipated poor wound healing post-op by Plastic Surgery Service. To address #1, patient awaits daily PT/OT Service evaluations to improve patient's deconditioned state, along with Case Management Service evaluation to expedite D/C to SNF for long-term care / placement, which is hindered by the need for such a SNF to accommodate patient's CKD stage V on HD -Fri. To address #2, patient continues to receive oxycodone IR 10mg PO q6 prn moderate pain, dilaudid 0.5mg IV q4 prn severe pain (05/26/2024, 8:01am) and fentanyl patch 25ug/hr TD q72h (, 10:00am). (2) UTI (urinary tract infection): Plan: cf., urine culture (05/22/2024, 5:50pm): >100,000 cfu/mL Pseudomonas aeruginosa cf., urine culture (04/25/2024, 5:15pm): >100,000 cfu/mL Pseudomonas aeruginosa and > 100,000 cfu/mL Klebsiella oxytoca, cefazolin-resistant Afebrile, non-toxic genito-urinary exam on ciprofloxacin 500mg PO daily (05/25/2024, 10:30am - 05/30/2024, 10:29am). (3) ESRD (end stage renal disease) on dialysis: Plan: CKD stage V on HD Mon-Wed-Fri. 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 cf., last recorded PO4 3.8 mg/dL (04/30/2024, 9:49am). cf., PO4 3.7 mg/dL (05/29/2024, 4:43pm). D/C'd 2 liters/24 hours fluid restriction as requested by the patient on 05/30/2024, 9:01am. (4) Atrial fibrillation: Plan: Chronic AFIB, rate-controlled with HR 84 bpm (05/28/2024, 12:40pm) and HR 72 bpm (05/29/2024, 3:35pm) on toprol XL 25mg PO daily. Given CHADS2-VASC score = 2 points (e.g., age > 74 years), patient stands to benefit from continued, long- term, active anticoagulation utilizing eliquis 2.5mg PO bid at home and at [facility]. (5) Sacral decubitus ulcer, stage IV: Plan: Chronic stage IV sacral decubitus present on admission date 05/22/2024--malodorous with light brown suppuration, deemed a poor surgical candidate for myocutaneous flap/grafting due to anticipated poor wound healing post-op by Plastic Surgery Service--and a constant nidus of infection for patient's recent Pseudomonas aeruginosa and cefazolin-resistant Klebsiella oxytoca UTI (as noted on 04/25/2024, 5:15pm urine culture). Continue bed position changes q2h while patient remains in bed. Encourage patient to participate with daily PT/OT Services to get out of bed and into a chair, at the very least, as patient remains bedbound and susceptible to further skin breakdown at stage IV sacral decubitus site. Plan Other miscellaneous issues: 1. Chronic euvolemic hyponatremia with baseline Na range, 130-135 mmol/L (07/18/2021 - 04/30/2024). cf., Na 138 mmol/L (05/22/2024, 1:40pm). cf., Na 136 mmol/L (05/23/2024, 8:04am). cf., Na 131 mmol/L (05/24/2024, 4:44am). cf., Na 133 mmol/L (05/27/2024, 10:53am). cf., Na 133 mmol/L (05/29/2024, 5:22am). 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 Nonetheless, patient continues to remain asymptomatic with this mild degree of chronic euvolemic hyponatremia and ongoing fluid restriction to 1 liter per 24 hours. 2. Chronic macrocytic, hypochromic anemia with progressive decline in baseline Hb range from 13.5 g/dL (09/12/2017, 11:35am) to 9.5 g/dL (04/30/2024, 9:49am). cf., Hb 9.8 g/dL, MCV 103.5, MCHC 30.3 (05/22/2024, 1:40pm). cf., Hb 10.5 g/dL, MCV 102.7, MCHC 30.3 (05/23/2024, 8:04am). cf., Hb 9.4 g/dL, MCV 100.3, MCHC 31.1 (05/24/2024, 4:44am). cf., Hb 9.3 g/dL, MCV 100.7, MCHC 30.9 (05/25/2024, 7:22am). cf., Hb 9.1 g/dL, MCV 101.7, MCHC 31.0 (05/27/2024, 10:53am). cf., Hb 9.1 g/dL, MCV 101.7, MCHC 31.0 (05/27/2024, 10:53am). Etiology of chronic macrocytic, hypochromic anemia is most probably due to anemia of chronic disease (e.g., CKD stage V). Hence, patient continues to receive MIRCERA (methoxy polyethylene glycol epoetin beta) q2 weeks with hemodialysis, and which is typically initiated in patients with CKD stage V on HD when their Hb level is less than 10 g/dL and who are not currently receiving an erythropoiesis stimulating agent such as PROCRIT (epoetin nimisha), and which is typically discontinued once their Hb level is greater than 11 g/dL. 3. Code status, FULL CODE @ home with . Condition of patient remains fair. I do not anticipate seismic change(s) in this patient's medical condition--as he appears thoroughly run down and worn out--only small ones strong enough to get this patient out of [facility] and into a SNF for long-term care/placement. The limiting factor in this patient's hospital disposition will be to identify a SNF that can accommodate this patient's need for hemodialysis on a Fri-Fri-Fri schedule and transport this patient to/from SNF to dialysis center, and back, indefinitely, for the rest of this patient's life. Admission and Anticipated Discharge Date Admission Date: May 22, 2024 Subjective "I feel fine. No complaints. Can you stop the fluid restriction (e.g., 2 liters/24 hours fluid restriction)? I am breathing fine. They keep a close eye on my fluid intake at dialysis, you know. I am ok." Review of Systems Review of Systems: Negative for antecedent or coincident fevers, chills, sweats, cough, wheeze, sore throat, hemoptysis, chest pains, palpitations, pleurisy, nausea, vomiting, diarrhea, abdominal pain, pelvic pain, flank pain, back pain, shoulder pain, hematemesis, hematochezia, melena, hematuria, dysuria, frequency, urgency, headaches, dizziness, lightheadedness, visual changes, hearing changes, falls, sick contacts, trauma, travel history, or food/drug ingestions novel or new. All other review systems are reported as negative by the patient on 05/30/2024. Physical Exam Physical Exam: General: comfortable, coherent, cooperative. Wide awake and alert. Not confused, lethargic, or obtunded. Patient speaks in complete, fluent, and articulate sentences without pause, interruption, cough, or wheeze. HEENT: NC/AT. EOMI. PERRL. No nystagmus, gaze paresis, anisocoria, miosis, chemosis, mydriasis, hyphema, scleral injection, conjunctivitis, or pterygium. No otorrhea or rhinorrhea. No pharyngeal discharge or erythema. Neck: Supple, no stridor, bruit, goiter, JVD, or HJR. Chest: Symmetric rise and fall with respirations. Lungs: CTA/P. No audible expiratory wheeze, egophony, pectoriloquy, increase in tactile fremitus, or flatness/dullness to percussion at the bases. Heart: RRR, S1 and S2 noted. No S3 or S4 summation gallop. Grade II/ early systolic murmur @ LLSB, without radiation to the carotids, axilla, or back, and which remains invariant in regards to the respiratory cycle. Abdomen: Soft, NT, ND, no organomegaly. Bowel sounds auscultated in all 4 quadrants. Extremities: No clubbing, cyanosis, or edema. 2+ pedal pulses bilaterally. Skin: Stage IV sacral decubitus ulcer present on admission date 05/22/2024, malodorous with light brown suppuration. No exanthem or enanthem. Neurology: Alert and oriented in regards to person, place, time, or situation. 5/5 motor strength in all 4 extremities, both proximally and distally. Urology: No crowe catheter. No urethral discharge. Results & Data Results & Data Vital Signs (Past 12 Hours) Vital Signs Temp Pulse Pulse Resp BP BP Pulse Ox 05/30/24 19:42 36.9 C 87 18 128/71 96 05/30/24 14:22 36.9 C 80 17 143/87 H 96 O2 Del Method 05/30/24 19:42 Room Air 05/30/24 14:22 Room Air Laboratory Results Urine culture (05/22/2024, 5:50pm): >100,000 cfu/mL Pseudomonas aeruginosa Urine culture (04/25/2024, 5:15pm): >100,000 cfu/mL Pseudomonas aeruginosa and > 100,000 cfu/mL Klebsiella oxytoca, cefazolin-resistant WBC 5.80, N74 L10 M12 E4 B1 (05/22/2024, 1:40pm). WBC 5.53, no differential (05/27/2024, 10:53am). WBC 5.62, no differential (05/29/2024, 5:22am). BUN 35, creatinine 3.83, GFR 15.5 mL/min (05/22/2024, 1:40pm). BUN 30, creatinine 3.75, GFR 15.9 mL/min (05/27/2024, 10:53am). BUN 29, creatinine 3.54, GFR 17.0 mL/min (05/29/2024, 5:22am). Na 138 mmol/L (05/22/2024, 1:40pm). Na 136 mmol/L (05/23/2024, 8:04am). Na 131 mmol/L (05/24/2024, 4:44am). Na 133 mmol/L (05/27/2024, 10:53am). Na 133 mmol/L (05/29/2024, 5:22am). Hb 9.8 g/dL, MCV 103.5, MCHC 30.3 (05/22/2024, 1:40pm). Hb 10.5 g/dL, MCV 102.7, MCHC 30.3 (05/23/2024, 8:04am). Hb 9.4 g/dL, MCV 100.3, MCHC 31.1 (05/24/2024, 4:44am). Hb 9.3 g/dL, MCV 100.7, MCHC 30.9 (05/25/2024, 7:22am). Hb 9.1 g/dL, MCV 101.7, MCHC 31.0 (05/27/2024, 10:53am). Hb 9.1 g/dL, MCV 101.7, MCHC 31.0 (05/27/2024, 10:53am). Diagnostic Findings EKG (05/22/2024, 1:31pm): AFIB @ 69, QTC 441, LAFB, no acute ST elevations/depressions (by my review). Portable CXR (05/22/2024, 1:39pm): Cardiomegaly with pulmonary vascular congestion. No infiltrate, effusion, or pneumothorax (by my review). TTE (04/08/2024, 1:04pm): LV EF 55-60%. Mild concentric LVH. No regional wall motion abnormalities noted. RV normal size and function. LA/ RA mildly dilated. No ASD. PFO not assessed. No significant AR. Moderate . PV not well visualized. Mild MR. No MS. No TR/TS. Aortic root normal size. No pericardial effusion. (as per CARDS Dr. Simona Candelario). PG Care Time/CCT Total # of Minutes Spent Total Time Spent with Patient: Total time spent is greater than 50% in coordination of care (as documented) at patient's floor/unit and/or counseling patient: Coding Level of Care Code 81667 SUB INP/OBS CARE 2/35MIN Diagnoses Generalized weakness R53.1 UTI (urinary tract infection) N39.0 ESRD (end stage renal disease) on dialysis N18.6; Z99.2 Permanent atrial fibrillation I48.2 Atrial fibrillation type: permanent Sacral decubitus ulcer, stage IV L89.154 (4) Atrial fibrillation Atrial fibrillation type: permanent Qualified Code(s): I48.2 - Chronic atrial fibrillation
--- NOTE | 2024-05-31 08:10 | Hospitalist Progress Note ---
Date of Service May 31, 2024 Assessment & Plan (1) Generalized weakness: Plan: This is a 78 y/o male being admitted for generalized weakness and inability to manage at home. chronically parapelegic, has ostomy and decubitus ulcer Generalized weakness and failure to thrive need of parenteral pain control from decubitus ulcer, pain improed transderm Fentanyl 25 mcg 05/27, continue po oxycodone, discussed increased dose, pt is happy with pain control at this dose Participating in PT/OT Also case management on board for placement (2) ESRD (end stage renal disease) on dialysis: Plan: ESRD on HD - routine MWF dialysis -Cont Sevelamer with meals per home dose -Continue vitamin -Patent receives Micera every 2 weeks with HD it appears from the chart -Monitor Cr and electrolytes -Nephrology on board, iron replacement held with elevated ferritin anemia of chronic inflamation (3) Atrial fibrillation: Plan: A fib rate controlled -Continue Toprol XL 25 mg daily -Cont Eliquis 2.5 mg BID (4) Sacral decubitus ulcer, stage IV: Plan: stage 4 sacral ulcer, present on admission Sacral wound and ostomy management -- no obvious sign of new infection at either site -Will consult wound care for management of both sites Plan chronic hyponatremia managed by RESERVATIONIST Full code DVT Eliquis Hopefully d/c when placement is secured by SW Admission and Anticipated Discharge Date Admission Date: May 22, 2024 Subjective pt states he feels much improved with regard to his pain still supportive of rehab, feels he is able to move legs more with better pain control Physical Exam Physical Exam: awake and alert states has a cough, lungs seem clear is a dialysis day, so maybe with slight volume overload seen on CXR Results & Data Results & Data Vital Signs (Past 12 Hours) Vital Signs Temp Pulse Resp BP Pulse Ox O2 Del Method 05/31/24 07:43 Room Air 05/31/24 06:57 98.1 F 79 16 138/85 96 Room Air 05/30/24 20:30 Room Air PG Care Time/CCT Total # of Minutes Spent Total Time Spent with Patient: Total time spent is greater than 50% in coordination of care (as documented) at patient's floor/unit and/or counseling patient: Coding Level of Care Code 88451 SUB INP/OBS CARE 2/35MIN Diagnoses Generalized weakness R53.1 ESRD (end stage renal disease) on dialysis N18.6; Z99.2 Permanent atrial fibrillation I48.2 Atrial fibrillation type: permanent Sacral decubitus ulcer, stage IV L89.154 (3) Atrial fibrillation Atrial fibrillation type: permanent Qualified Code(s): I48.2 - Chronic atrial fibrillation
--- NOTE | 2024-05-31 10:00 | Nephrology Progress Note ---
Date of Service May 31, 2024 Assessment & Plan (1) ESRD (end stage renal disease) on dialysis: (2) Anemia of chronic disease: (3) Hypertension: (4) Sacral decubitus ulcer, stage IV: Plan 78-year-old gentleman with end-stage kidney disease on hemodialysis, Friday, , Friday via left brachiocephalic AV fistula. Admitted with generalized weakness and need for placement. Doing well, clinically stable. Volume status acceptable. Blood pressure fair. -- HD this afternoon -- Continue on Nephrocaps and phosphate binder -- Epogen 93055 units with dialysis today. -- Left arm nephrology precaution, dose medications for eGFR less than 10 -- waiting on discharge. Admission and Anticipated Discharge Date Admission Date: May 22, 2024 Subjective Sylvester was seen and evaluated this morning. Cough better, still has on and off, no F/C. Blood pressure and volume status fair. Electrolyte acceptable, hemoglobin stable. Review of Systems Review of Systems: All systems reviewed & are unremarkable except as noted in Subjective Physical Exam Constitutional: WD/WN, vitals as above no acute distress Respiratory: no respiratory distress Cardiovascular: Extremities: no edema Psychiatric: Orientation: alert and oriented x 3 Affect: euthymic affect Results & Data Vital Signs (Past 12 Hours) Vital Signs Temp Pulse Resp BP Pulse Ox O2 Del Method 05/31/24 07:43 Room Air 05/31/24 06:57 36.7 C 79 16 138/85 96 Room Air PG Care Time/CCT Total # of Minutes Spent Total Time Spent with Patient: Total time spent is greater than 50% in coordination of care (as documented) at patient's floor/unit and/or counseling patient: Coding Level of Care Code 14615 SUB INP/OBS CARE 2/35MIN Diagnoses ESRD (end stage renal disease) on dialysis N18.6; Z99.2 Anemia of chronic disease D63.8 Essential hypertension I10 Hypertension type: essential hypertension Sacral decubitus ulcer, stage IV L89.154 (3) Hypertension Hypertension type: essential hypertension Qualified Code(s): I10 - Essential (primary) hypertension
--- NOTE | 2024-05-31 14:58 | XRay Report ---
Clinical History: Shortness of breath Technique: A frontal view of the chest was obtained Comparison is made to the prior examination dated 05/22/2024 Findings: There are no definite pulmonary infiltrates. The heart is mildly enlarged. No pleural effusion or pneumothorax is seen. There is suspected mild bilateral lung base atelectasis No fracture is noted. Sternal wires are present Impression: 1. Unchanged mild cardiomegaly 2. Suspected mild bilateral lung base atelectasis Electronically signed by Geovani Lara 05-31-2024 2:55 PM
[2024-05-31] MEDS: EPOETIN ALFA 20,000 UNITS/ML VIAL IV STA (16:26)
[2024-06-01 07:12] VITALS: BP 123/72; PULSE 78; RESP 16; TEMP 98.1; O2SAT 95
--- NOTE | 2024-06-01 08:59 | Hospitalist Progress Note ---
Date of Service June 01, 2024 Assessment & Plan (1) Generalized weakness: Plan: This is a 78 y/o male being admitted for generalized weakness and inability to manage at home. chronically parapelegic, has ostomy and decubitus ulcer Generalized weakness and failure to thrive need of parenteral pain control from decubitus ulcer, pain improed transderm Fentanyl 25 mcg 05/27, continue po oxycodone, discussed increased dose, pt is happy with pain control at this dose Participating in PT/OT Also case management on board for placement (2) ESRD (end stage renal disease) on dialysis: Plan: ESRD on HD - routine MWF dialysis -Cont Sevelamer with meals per home dose -Continue vitamin -Patent receives Micera every 2 weeks with HD it appears from the chart -Monitor Cr and electrolytes -Nephrology on board, iron replacement held with elevated ferritin anemia of chronic inflamation (3) Atrial fibrillation: Plan: A fib rate controlled -Continue Toprol XL 25 mg daily -Cont Eliquis 2.5 mg BID (4) Sacral decubitus ulcer, stage IV: Plan: stage 4 sacral ulcer, present on admission Sacral wound and ostomy management -- no obvious sign of new infection at either site -Will consult wound care for management of both sites Plan chronic hyponatremia managed by ELECTRONIC CALIBRATION TECHNICIAN Full code DVT Eliquis Hopefully d/c when placement is secured by SW Admission and Anticipated Discharge Date Admission Date: May 22, 2024 Results & Data Results & Data Vital Signs (Past 12 Hours) Vital Signs Temp Pulse Resp BP Pulse Ox O2 Del Method 06/01/24 07:38 Room Air 06/01/24 07:10 98.1 F 78 16 123/72 95 Room Air PG Care Time/CCT Total # of Minutes Spent Total Time Spent with Patient: Total time spent is greater than 50% in coordination of care (as documented) at patient's floor/unit and/or counseling patient: Coding Diagnoses Generalized weakness R53.1 ESRD (end stage renal disease) on dialysis N18.6; Z99.2 Permanent atrial fibrillation I48.2 Atrial fibrillation type: permanent Sacral decubitus ulcer, stage IV L89.154 (3) Atrial fibrillation Atrial fibrillation type: permanent Qualified Code(s): I48.2 - Chronic atrial fibrillation
--- NOTE | 2024-06-01 12:33 | Nephrology Progress Note ---
Date of Service June 01, 2024 Assessment & Plan (1) ESRD (end stage renal disease) on dialysis: (2) Anemia of chronic disease: (3) Hypertension: (4) Sacral decubitus ulcer, stage IV: Plan 78-year-old gentleman with end-stage kidney disease on hemodialysis, Friday, , Friday via left brachiocephalic AV fistula. Admitted with generalized weakness and need for placement. Doing well, clinically stable. Volume status acceptable. Blood pressure fair. -- HD tomorrow however if dialysis is [facility] care can be coordinated, he can be discharged anytime. -- Continue on Nephrocaps and phosphate binder -- Epogen 20032 units given at dialysis yesterday. -- Left arm nephrology precaution, dose medications for eGFR less than 10 Admission and Anticipated Discharge Date Admission Date: May 22, 2024 Subjective Sylvester was seen and evaluated this morning. Overall he feels well. Had dialysis yesterday. Blood pressure, volume status, electrolyte acceptable. Waiting for discharge to [facility] care, needs coordination of dialysis care with [facility]. Review of Systems Review of Systems: Detail review of system was done and otherwise unremarkable. Physical Exam Constitutional: WD/WN, vitals as above no acute distress Respiratory: no respiratory distress Cardiovascular: Rate/Rhythm: regular rate and regular rhythm Heart Sounds: normal S1 and normal S2 Extremities: + AV fistula (left BC AVF with thrill and bruit); no edema Skin: no rashes, warm and dry Neurologic: no focal motor deficits Psychiatric: Orientation: alert and oriented x 3 Affect: euthymic affect Results & Data Vital Signs (Past 12 Hours) Vital Signs Temp Pulse Resp BP Pulse Ox O2 Del Method 06/01/24 07:38 Room Air 06/01/24 07:10 36.7 C 78 16 123/72 95 Room Air PG Care Time/CCT Total # of Minutes Spent Total Time Spent with Patient: Total time spent is greater than 50% in coordination of care (as documented) at patient's floor/unit and/or counseling patient: Coding Level of Care Code 75007 SUB INP/OBS CARE 2/35MIN Diagnoses ESRD (end stage renal disease) on dialysis N18.6; Z99.2 Anemia of chronic disease D63.8 Essential hypertension I10 Hypertension type: essential hypertension Sacral decubitus ulcer, stage IV L89.154 (3) Hypertension Hypertension type: essential hypertension Qualified Code(s): I10 - Essential (primary) hypertension
--- NOTE | 2024-06-01 15:11 | Discharge Summary ---
Discharge Summary Date of Service June 01, 2024 Principal Dx & Hospital Course #1 = Principal Diagnosis (1) Generalized weakness: This is a 78 y/o male being admitted for metabolic encephalopathy from uti poa and inability to manage at home. chronically parapelegic, has ostomy and decubitus ulcer Generalized weakness and failure to thrive, likely encephalopathy from uti poa need of parenteral pain control from decubitus ulcer, pain improved transderm Fentanyl 25 mcg 05/27, continue po oxycodone, discussed increased dose, pt is happy with pain control at this dose (2) ESRD (end stage renal disease) on dialysis: ESRD on HD - routine MWF dialysis -Cont Sevelamer with meals per home dose -Continue vitamin -Patent receives Micera every 2 weeks with HD it appears from the chart -Monitor Cr and electrolytes -Nephrology on board, iron replacement held with elevated ferritin anemia of chronic inflamation (3) Atrial fibrillation: A fib rate controlled -Continue Toprol XL 25 mg daily -Cont Eliquis 2.5 mg BID (4) Sacral decubitus ulcer, stage IV: stage 4 sacral ulcer, present on admission Sacral wound and ostomy management -- no obvious sign of new infection at either site -continue wound care at snf Plan chronic hyponatremia managed by FINISHED CARPET INSPECTOR Full code DVT Eliquis Notes For Next Care Provider complete treatment for pseudomonas uti poa and recheck Admission HPI Per Admitting Provider This is a 78 y/o male with MHx significant for A fib (on Eliquis), HFpEF, ESRD on MWF HD, neurogenic bladder with chronic indwelling Perry, colostomy, and a stage 4 decub ulcer among other conditions who is brought in from home due to generalized weakness, inability to transfer, inability to be cared for at home. Patient was recently admitted here from 04/25 to 04/30 with multiple active issues including: PNA/UTI with Cx positive for Pseudomonas and Klebsiella for which he finished a course of Cefepime outpatient on 05/05, adenovirus infection, and generalized weakness. Patient states that he was at [facility] for the past 3 weeks after his hospitalization undergoing PT. He states that he did not feel he was even able to transfer, however, he was discharged home on 05/20. For the past 2 days, he has not been able to move or transfer well at home, and had to call 911 for assistance to get him in/out of bed, to bathroom, and for really any movement. Home nurse from [facility] came for home visit today and after assessing him back to the ER for admission and placement especially given that is unable to lift/transfer him by herself. Patient has no new complaints otherwise. No f/c/n/v/d. No CP/SOB. He does still have some remnant of a cough, but non productive. notes that there was some leaking around his colostomy today, but otherwise they state no other unusual changes. Patient has been taking all medications as prescribed. Discharge Exam awake and alert, no new focal complaints pain is controlled with fentanyl and prn oxycodone Discharge Plan Discharge Items Patient Disposition: Transfer Halfway Fac Reason For Visit: GENERALIZED WEAKNESS Discharge Diagnosis: metabolic encephalopathy from pseudomonas uti poa sacral decubitus ulcer poa ostomy to aid wound healing ESRD on dialysis Activity: Resume your previous activity Non-emergency contact: Primary Care Provider and Railroad Wheels And Axle Inspector Call non-emergency contact if: your symptoms worsen Follow-up/Referrals: Jasiel Pineda DO [Primary Care Provider] - Diet: Dialysis Renal Addtl Attending Provider Instructions: please complete another 3 days of cipro please reculture urine for clearing good wound care to decibitus, family will bring in ostomy supplies Pending Studies at Discharge: No Stand-Alone Forms: My [facility] Skilled Items Patient informed of condition?: Yes DNR: No Discharge Level of Care: Other Communicable Disease: No Discharge Prognosis: Stable Lines: None Urinary Catheter: Yes Medications and DC Order Prescriptions: New fentanyl 25 mcg/hr Patch 72 Hour 1 patch transdermal Q3D Qty: 10 0RF ciprofloxacin HCl [Cipro] 500 mg tablet 500 mg PO DAILY Qty: 3 0RF oxycodone 5 mg tablet 5 - 10 mg PO TID PRN (Reason: pain) Qty: 20 0RF Continued Eliquis 2.5 mg tablet 2.5 mg PO BID Qty: 180 3RF gabapentin 300 mg capsule 600 mg PO HS Qty: 180 5RF alprazolam 0.25 mg tablet 0.25 mg PO HS PRN (Reason: Anxiety/Panic attacks) Qty: 30 0RF cholecalciferol (vitamin D3) [Vitamin D3] 50 mcg (2,000 unit) Tablet 50 mcg PO QPM sevelamer carbonate 800 mg tablet See Rx Instructions .ROUTE .COMPLEX Rx Instructions: Per spouse: Patient is taking 2400mg by mouth with each meal. However, MD called (Nancie Marker) and states pt should be taking 1600mg with each meal and 800mg with each snack. atorvastatin 20 mg tablet 20 mg PO DAILY midodrine 5 mg tablet 5 mg PO 3XWK Rx Instructions: 30 mins prior to Dialysis metoprolol succinate 25 mg tablet extended release 24 hr 25 mg PO QAM Triphrocaps 1 mg capsule 1 cap PO QAM polyethylene glycol 3350 [Miralax] 17 gram Powder In Packet 17 g PO DAILY PRN (Reason: constipation) Qty: 5 0RF mirtazapine 7.5 mg tablet 7.5 mg PO HS Qty: 60 2RF Discontinued oxycodone-acetaminophen [Percocet] 5-325 mg tablet 1 tab PO Q6H PRN (Reason: pain) Qty: 30 0RF No Action (DME) Power Wheelchair Device See Rx Instructions .Route Qty: 1 0RF Rx Instructions: POWER WHEELCHAIR, DX: R53.1, R26.2 (DME) Mattress (Air or other) Misc See Rx Instructions .Route Qty: 1 0RF Rx Instructions: alternating pressure mattress Discharge Orders: Discharge Order (Routine); Ordered 06/01/24 Ordered By: Eber Neff Admission Data Admit Date/Time: 05/22/24 15:16 Attending Provider: Eber Neff Admit Provider: Rodri Marshall Primary Care Provider: Jasiel Pineda Other Providers: Rodri Marshall; Carrillo Tony; [place]; [facility]; [facility] Other Interventions: Discharge Summary Assessment (RN) Last Done: 06/01/24 12:38 Hospital Stay Data Consultations 05/22/24 14:35 ED Decision to Admit Stat 05/22/24 16:51 Consult Nephrology Routine Pending Results Patient Have Any Pending Studies at Discharge: No Discharge Instructions Given to Patient (Per Discharging Provider) please complete another 3 days of cipro please reculture urine for clearing good wound care to decibitus, family will bring in ostomy supplies Total Time Total Time Spent Total Time Spent (In Minutes): It required greater than 30 minutes to prepare this patient for discharge. Coding Level of Care Code 84768 INP/OBS DISCH >30 MIN Diagnoses Generalized weakness R53.1 ESRD (end stage renal disease) on dialysis N18.6; Z99.2 Permanent atrial fibrillation I48.2 Atrial fibrillation type: permanent Sacral decubitus ulcer, stage IV L89.154
[2024-06-02 15:25] LABS: Hepatitis B Surface Ab Quant > 500.00 mIU/mL (>or=10mIU/mL Immune); Hepatitis B Surface Antibody Immune
== END 2024-06-01 12:55 | DRG 689 ==
LOC: ED 13:11 → 3N 15:16 → SUATTDRO 15:16 → 3N 16:17

== ENCOUNTER 2024-07-16 08:53 | Inpatient (IN) ==
--- NOTE | 2024-07-16 09:14 | Emergency Department Note ---
Impression & Plan Weakness ADMIT ED Provider Note HPI: History obtained from patient. The patient is a 78-year-old gentleman with history of end-stage renal disease, on dialysis Friday, history of atrial fibrillation, on apixaban, who presents the emergency department with a chief complaint of generalized weakness and fatigue. Patient states that he recently was at [facility] and he went home just 2 days ago. Patient states over the past 2 days he has not been able to get out of bed to get to his tray to eat and his is not able to help take care of him at home. Patient states that he needs to be placed in a nursing facility for further care. Patient is requesting transfer back to [facility]. On arrival here to the ED the patient complains of generalized weakness and fatigue but otherwise does not have any focal complaint of pain, patient is mildly tachycardic but otherwise hemodynamically stable on my initial assessment. ROS: - Per HPI Differential Diagnosis: Chronic deconditioning/ambulatory dysfunction, sepsis, urinary tract infection, pneumonia, stroke, intracranial hemorrhage, amongst other potential pathologies. *Outpatient medications and allergy history reviewed. PE: General: Alert, frail-appearing, no acute distress HEENT: Normocephalic, trachea midline Eyes: Extraocular eye movement is intact, no scleral erythema Pulmonary: Clear to auscultation bilaterally, no wheezing Cardio: Mildly tachycardic rate with irregular rhythm GI: Abdomen is soft to palpation : No suprapubic tenderness MSK: No evidence of trauma or malformation of the extremities, no edema Skin: No evidence of rash Neuro: Alert, no focal deficits Psychiatric: Cooperative INDEPENDENT INTERPRETATIONS: electronic device monitor: (As interpreted by myself): - An order was placed for continuous cardiac monitoring - Patient was noted to be in atrial fibrillation with a rate of 107 EKG: (As interpreted by myself): Rate: 101 Rhythm: Atrial fibrillation with RVR Intervals: Within normal limits ST changes: No ST elevation Time: 0900 Chest x-ray: (As interpreted by myself): Small bilateral pleural effusions Medical Decision Making: IV was established and lab work obtained, patient was placed on classroom monitor. Lab work shows no leukocytosis, hemoglobin is stable at 9.0, platelet count is normal at 166. Lab work shows baseline end-stage renal disease with creatinine of 4.45, potassium is normal, BUN is 35, high-sensitivity troponin is mildly elevated at 36.3, patient denies any chest pain, EKG shows atrial fibrillation without any acute ischemic changes per my interpretation. Chest x-ray shows small bilateral pleural effusions. Procalcitonin is mildly elevated at 0.82 however the patient does not have any leukocytosis, denies recent cough, will forego antibiotics and defer to the hospitalist service for further management. Urinalysis is nonspecific for infection. Will send for culture. Viral panel testing is negative. Overall the patient appears stable here in the ED, he is requesting admission for placement into physical therapy, I did discuss this with case management and the patient was not able to be placed directly into a facility today therefore they did recommend admission. Patient was in agreement to this plan and he was placed for admission in stable condition to the hospitalist service. Consultants/Discussions held with other healthcare providers: -Hospitalist, Dr. Yeager Diagnosis: 1. Ambulatory dysfunction, acute on chronic 2. Anemia, chronic, stable 3. End-stage renal disease, on dialysis Friday Disposition: Admission Abram Gaytan DO Emergency Medicine Past Med/Surg History Problem List (Updated 07/16/24 @ 13:43 by Abram Gaytan DO) Weakness (Acute) Ambulatory dysfunction History of CHF (congestive heart failure) Pneumonia Atrial fibrillation Follows with [facility] cardiology (Dr. Jarvis) On Eliquis Sacral decubitus ulcer, stage IV "stable to improved" per [place] [facility] AND [facility] 2X PER WEEK. patient's changes dressing as instructed at home. Pulmonary edema Weakness generalized Dialysis patient (Acute ~06/01/24) Anemia (Acute) Adenoviral infection (Acute) Adenovirus infection Altered bowel elimination due to intestinal ostomy (Acute) Insomnia MDD (major depressive disorder), single episode, mild CKD (chronic kidney disease) (Acute) Acute hypoxemic respiratory failure (Acute) Hypoxia (Acute) Elevated troponin Abnormal computed tomography of lung 08/05/23 - Wedge shaped consolidation of lung. No signs of PNA on exam. Recommend 3 month f/u CT ordered. Sleep apnea Generalized osteoarthritis Neurogenic claudication due to lumbar spinal stenosis Lower extremity edema Lymphedema Central venous catheter in place MRSA (methicillin resistant staph aureus) culture positive Abdominal aortic aneurysm (~2014) S/p Type A dissection with emergent repair in 2014 - Follows with vascular - last seen 11/2022- AAA 3.3cm, iliac artery aneursym (right 2.0cm and left 3.0 cm)- all stable in size; chronic thoracic aortic dissection- stable- vascular recommended repeating imaging May 2024 ESRD (end stage renal disease) on dialysis [facility] in [place] Fri-Fri-Fri Neuropathic pain Hyperlipidemia Anemia due to chronic kidney disease Anxiety Medical History (Updated 07/16/24 @ 13:43 by Abram Gaytan DO) Colostomy in place Laparoscopic loop sigmoid colostomy by Dr. Yaquelin Hou for sacral ulcer healing ESRD (end stage renal disease) on dialysis Anemia of chronic disease Wheelchair dependent Inability to walk Neurogenic bladder Neurogenic bowel Hypertension Encounter for pre-operative examination Lobar pneumonia 08/2022 treated at [facility] inpatient. 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 Shrestha at [facility]>WC BOUND FOR 3 YEARS D/T CYSTS. inhibiting patient to ambulate. 04/25/23: awaiting for surgery to remove the spinal cyst but will need his ulcer wound repaired and healed fully first --> reason for upcoming colostomy. Impotence, organic Sleep apnea CPAP PTSD (post-traumatic stress disorder) POST AORTIC DISSECTION Neurogenic bladder Self Catheterization since Aortic repair 4-5X PER DAY Lumbar spinal stenosis Surgical History History of removal of tunneled central venous catheter (CVC) with port removal of perm cath 05/[address] Marroquin S/P arteriovenous (AV) fistula creation left S/P debridement (02/08/22) Sacral Wound Debridment, Sacral bone biopsy(Not Applicable) - Jose Le DO S/P debridement (06/27/21) Excisional Debridement Sacral Decubitus Ulcer down to muscle level 4cm x 6cm - Ranjeet Myers DO 06/27/2021 Excisional Debridement of Sacral Decubitus Ulcer Down to Bone, 11cm x 10cm(Not Applicable) - Ranjeet Myers DO 07/25/2021: MAC 3, ETT 7.5. History of revision of total hip arthroplasty History of arthroplasty of left hip S/P total right hip arthroplasty History of cardioversion mult>FOLLOWS WITH DR. JARVIS History of lumbar fusion History of bladder surgery History of transurethral resection of prostate Nausea and vomiting after administration of anesthetic agent History of arthroscopy RT KNEE History of open reduction and internal fixation (ORIF) procedure RT WRIST History of total knee replacement RT History of esophagogastroduodenoscopy (EGD) History of colonoscopy History of tooth extraction History of rhinoplasty History of cataract surgery RT/LEFT 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 History of gastric bypass 2010 History of cardiac catheterization 2003 - no stents - [facility] in [place] Family History Grandmother Family history of diabetes mellitus Mother Gallbladder disease Father Prostate cancer Myocardial infarction Hypertension Other Family history non-contributory No family history of adverse response to anesthesia Denies family history of Ovarian cancer Breast cancer Colorectal cancer Social History Smoking Status: Never smoker Second Hand Exposure: No; Do You Dip or Chew Tobacco: No; Hx Alcohol Use: No Hx Substance Use: No Preferred Language: Belarusian Communication Ability: Effective Visual Impairment: Limited Hearing Ability: Normal Sharepoint Designer Developer Required: No Beliefs That Will Affect Care: None marital status: Current Living Situation: Spouse Current Living Situation Comment: Home with . Unable to care for patient current occupational status: retired How many Children do You have: 1 Feels Safe at Home: Yes Childhood Exposure to Second-Hand Smoke: Yes (father did ) Diet: regular Diet Comment: low sugar, low phospate caffeine: Yes (tea) during the past year weight has: remained stable Dental Care, Regularly: Yes Physical Activity Frequency: Does not Exercise Physical Activity Frequency Comment: goes to PT twice a week Seatbelt Use: always Sunscreen Use: Yes Do you think of yourself as: straight/heterosexual Gender Identity: Male Assistive Devices: Bedside Commode, CPAP, Hospital Bed, Scooter/Electric Scooter and Other Allergies Allergies Allergy/AdvReac Type Severity Reaction Status Date / Time tetracycline Allergy Intermediate HIVES Verified 04/25/24 15:40 NSAIDS (Non-Steroidal Allergy Unknown Unknown, Unverified 04/25/24 15:40 Anti-Inflamma on file w/ [facility] morphine AdvReac Intermediate Nausea Verified 04/25/24 15:40 Home Meds Home Medications Medication Instructions Recorded Confirmed cholecalciferol (vitamin D3) 50 50 mcg PO QPM 12/31/19 07/16/24 mcg (2,000 unit) tablet (Vitamin D3) sevelamer carbonate 800 mg tablet See Rx Instructions .Route .COMPLEX 09/20/22 07/16/24 atorvastatin 20 mg tablet 20 mg PO DAILY 04/14/24 07/16/24 metoprolol succinate 25 mg 25 mg PO QAM 04/14/24 07/16/24 tablet,extended release 24 hr midodrine 5 mg tablet 5 mg PO 3XWK 04/14/24 07/16/24 vitamin B complex and vitamin C 1 cap PO QAM 04/14/24 07/16/24 no.20-folic acid 1 mg capsule (Triphrocaps) acetaminophen 325 mg tablet 650 mg PO QID PRN Pain 07/14/24 07/16/24 docusate sodium 100 mg capsule 100 mg PO BID PRN Constipation 07/14/24 07/16/24 menthol 0.44 %-zinc oxide 20.6 % 1 applic topical DAILY PRN Other 07/14/24 07/16/24 topical ointment (Calmoseptine) mirtazapine 7.5 mg tablet 15 mg PO HS 07/14/24 07/16/24 robitussin dm 10 ml PO DIRECTED PRN Other 07/14/24 07/16/24 Previous Rx's Medication Instructions Recorded Wheelchair (Powered) (Power #1 ea 01/04/22 Wheelchair) alprazolam 0.25 mg tablet 0.25 mg PO HS PRN Anxiety/Panic 10/09/23 attacks #30 tabs Mattress (Air or other) #1 ea 10/21/23 apixaban 2.5 mg tablet (Eliquis) 2.5 mg PO BID #180 tabs 02/03/24 gabapentin 300 mg capsule 600 mg (2 x 300 mg) PO HS #180 caps 03/05/24 polyethylene glycol 3350 17 gram 17 g PO DAILY PRN constipation #5 04/30/24 oral powder packet (Miralax) ea fentanyl 25 mcg/hr transdermal 1 patch transdermal Q3D #10 ea 06/01/24 patch oxycodone 5 mg tablet 5 - 10 mg (1 - 2 x 5 mg) PO TID 06/01/24 PRN pain #20 tabs Results & Data (ED) Vital Signs Vital Signs - 24 hr 07/16/24 08:59 07/16/24 09:03 07/16/24 09:29 Temperature 36.8 C Temperature Source Oral Pulse Rate 97 H 92 H Pulse Rate [Apical] 97 H Respiratory Rate 18 20 Respiratory Effort / Characteristics Non-Labored Respiratory Depth Normal Normal Respiratory Pattern Regular Blood Pressure 144/116 H Blood Pressure [Right Arm] 152/107 H Blood Pressure Mean 125 Blood Pressure Mean [Right Arm] 122 Pulse Oximetry 93 93 Oxygen Delivery Method Room Air Room Air Sepsis Recent Fever Within 48 Hours No Sepsis New/Unexplained Change in Mental Status N/A Sepsis Action Taken by Nursing No Action Required Laboratory Data 07/16/24 09:10 07/16/24 09:10 Lab Results 07/16/24 07/16/24 07/16/24 Range/Units 09:10 09:24 09:58 WBC 7.76 (4.8-10.8) K/ul RBC 2.85 L (4.70-6.10) M/uL Hgb 9.0 L (14.0-18.0) g/dl Hct 28.7 L (42.0-52.0) % MCV 100.7 H (80.0-100.0) fL MCH 31.6 (25.0-34.0) pg MCHC 31.4 L (32.0-36.0) g/dL RDW Std Deviation 58.8 H (36.4-46.3) fL RDW Coeff of Hector 16.1 H (11.5-14.5) % Plt Count 166 (130-400) K/uL MPV 9.5 (9.4-12.4) fL Immature Gran % (Auto) 0.4 % Neut % (Auto) 80.1 % Lymph % (Auto) 9.0 % Price % (Auto) 7.9 % Eos % (Auto) 1.8 % Baso % (Auto) 0.8 % Neut # (Auto) 6.22 (1.40-6.50) K/uL Lymph # (Auto) 0.70 L (1.20-3.40) K/uL Price # (Auto) 0.61 H (0.11-0.59) K/uL Eos # (Auto) 0.14 (0.00-0.50) K/uL Baso # (Auto) 0.06 (0.00-0.20) K/uL Immature Gran # (Auto) 0.03 (0.01-0.20) K/uL PT 12.8 H (9.0-12.0) Seconds INR 1.2 H (0.9-1.1) Sodium 138 (136-145) mmol/L Potassium 4.7 (3.5-5.1) mmol/L Chloride 100 (98-107) mmol/L Carbon Dioxide 29 (21-32) mmol/L Anion Gap 9 (3-11) BUN 35 H (6-23) mg/dl Creatinine 4.45 H (0.6-1.4) mg/dl Est Cr Clr Drug Dosing 15.7 ml/min eGFR 12.92 BUN/Creatinine Ratio 7.9 L (10-20) Glucose 92 (70-99(Fasting)) mg/dl Calcium 9.0 (8.6-10.3) mg/dl Total Bilirubin 0.8 (0.2-1.0) mg/dl AST 29 (13-39) U/L ALT 30 (7-52) U/L Alkaline Phosphatase 119 H (34-104) U/L Troponin I High Sens 36.3 H (0-20) pg/ml Total Protein 6.6 (6.0-8.3) gm/dl Albumin 3.6 (3.4-5.0) gm/dl Globulin 3.0 (2.5-4.0) gm/dl Albumin/Globulin Ratio 1.2 (0.9-2) Lipase 21 (11-82) U/L Procalcitonin 0.82 H (0-0.5) ng/ml Urine Color Yellow Urine Appearance Clear (Clear) Urine pH >= 9.0 H (4.5-7.5) Ur Specific Hol[place] 1.010 (1.000-1.030) Urine Protein 3+ H (Negative) Urine Glucose (UA) Trace H (Negative) Urine Ketones Negative (Negative) Urine Blood 2+ H (Negative) Urine Nitrite Negative (Negative) Urine Bilirubin Negative (Negative) Urine Urobilinogen Negative (Negative) Ur Leukocyte Esterase 1+ H (Negative) Urine RBC 0-2 (0-2) /hpf Urine WBC 11-20 H (0-5) /hpf Ur Epithelial Cells 0-2 (0-2) /hpf Urine Bacteria 1+ H (None Seen) Adenovirus (PCR) Not Detected (NotDetected) B. pertussis DNA (PCR) Not Detected (NotDetected) B.parapertussis DNA PCR Not Detected (NotDetected) C. pneumoniae DNA (PCR) Not Detected (NotDetected) Coronavirus OC43 (PCR) Not Detected (NotDetected) Coronavirus HKU1 (PCR) Not Detected (NotDetected) Coronavirus 229E (PCR) Not Detected (NotDetected) SARS-CoV-2 (PCR) Not Detected (NotDetected) Coronavirus NL63 (PCR) Not Detected (NotDetected) Human Metapneumovir PCR Not Detected (NotDetected) Influenza Type A (PCR) Not Detected (NotDetected) Influenza Type B (PCR) Not Detected (NotDetected) M. pneumoniae (PCR) Not Detected (NotDetected) Parainfluenza 1 (PCR) Not Detected (NotDetected) Parainfluenza 2 (PCR) Not Detected (NotDetected) Parainfluenza 3 (PCR) Not Detected (NotDetected) Parainfluenza 4 (PCR) Not Detected (NotDetected) RSV (PCR) Not Detected (NotDetected) Entero/Rhino (PCR) Not Detected (NotDetected) Imaging Data Radiologist's Impression: Chest X-Ray 07/16/24 09:06 XR chest 1V portable HISTORY: 78 years-old Male weakness COMPARISON: 05/31/2024 TECHNIQUE: AP view of the chest FINDINGS: Cardiac silhouette is enlarged. Median sternotomy. Vascular congestion with interstitial coarsening. Small right greater than left pleural effusions with right basilar predominant opacities. Findings are similar to prior. Bones appear grossly intact. Right axillary surgical clips. IMPRESSION: 1. Cardiomegaly with pulmonary edema. 2. Small right greater than left pleural effusions with right basilar predominant opacities which may represent atelectasis versus pneumonia. ACT 112: Negative or not required by law. The above report was generated using voice recognition software. It may contain grammatical, syntax or spelling errors. Electronically signed by: Stan Lui M.D. 07/16/2024 9:36 AM Discharge Plan Visit Data Chief Complaint: Weakness Stated Complaint: WEAKNESS ED Provider: Abram Gaytan Discharge Problem: Weakness Patient Disposition: Admitted As Inpatient Discharge Instructions Interventions: ED Discharge Assessment Last Done: 07/16/24 13:22
[2024-07-16 09:34] LABS: Basophils # (auto) 0.06 K/uL (0.00-0.20); Basophils % (auto) 0.8 %; Eosinophils # (auto) 0.14 K/uL (0.00-0.50); Eosinophils % (auto) 1.8 %; Hematocrit (blood only) 28.7 % (42.0-52.0); Immature Granulocytes # (auto) 0.03 K/uL (0.01-0.20); Immature Granulocytes % (auto) 0.4 %; Mean Corpuscular Hemoglobin 31.6 pg (25.0-34.0); Mean Corpuscular Hgb Conc 31.4 g/dL (32.0-36.0); Mean Corpuscular Volume 100.7 fL (80.0-100.0); Mean Platelet Volume 9.5 fL (9.4-12.4); Monocytes # (auto) 0.61 K/uL (0.11-0.59); Monocytes % (auto) 7.9 %; Neutrophils # (auto) 6.22 K/uL (1.40-6.50); Neutrophils % (auto) 80.1 %; Platelet Count 166 K/uL (130-400); RDW Coefficient of Variation 16.1 % (11.5-14.5); RDW Standard Deviation 58.8 fL (36.4-46.3); Red Blood Count 2.85 M/uL (4.70-6.10); White Blood Count 7.76 K/ul (4.8-10.8)
--- NOTE | 2024-07-16 09:37 | XRay Report ---
XR chest 1V portable HISTORY: 78 years-old Male weakness COMPARISON: 05/31/2024 TECHNIQUE: AP view of the chest FINDINGS: Cardiac silhouette is enlarged. Median sternotomy. Vascular congestion with interstitial coarsening. Small right greater than left pleural effusions with right basilar predominant opacities. Findings ar e similar to prior. Bones appear grossly intact. Right axillary surgical clips. IMPRESSION: 1. Cardiomegaly with pulmonary edema. 2. Small right greater than left pleural effusions with right basilar predominant opacities which may represent atelectasis versus pneumonia. ACT 112: Negative or not required by law. The above report was generated using voice recognition software. It may contain grammatical, syntax o r spelling errors. Electronically signed by: Stan Lui M.D. 07/16/2024 9:36 AM
[2024-07-16 09:49] LABS: Albumin Globulin Ratio 1.2 (0.9-2); Albumin Level 3.6 gm/dl (3.4-5.0); BUN Creatinine Ratio 7.9 (10-20); Bilirubin,Total 0.8 mg/dl (0.2-1.0); Creatinine Clr Calc Pharmacy 15.7 ml/min; Potassium 4.7 mmol/L (3.5-5.1); Total Protein 6.6 gm/dl (6.0-8.3)
[2024-07-16 09:55] LABS: Troponin I High Sensitivity 36.3 pg/ml (0-20)
--- NOTE | 2024-07-16 10:05 | History & Physical Report ---
Date of Service July 16, 2024 Assessment & Plan (1) Weakness generalized: Plan: patient difficulty transferring from bed to wheelchair at home, was just discharged [facility] 07[facility]14 inability to care for self at home wheelchair dependent fall and aspiration precautions PT/OT consulted Case management consulted; would like to return back to Center (2) Neuropathic pain: Plan: spinal ischemia, neurogenic, paraplegia Patient states he has a cyst at L1/L2 region Has chronic left hip pain/tingling Has new acute right leg pain/numbness that began 07/13; waxes and wanes Will obtain lumbar MRI to assess cyst Ordered Head CT, with new onset stroke like sx/ numbness - head CT showing 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 Harris - Recommending brain MRI with and without contrast, discussed end-stage renal disease, will order brain MRI wo contrast - no need for formal consult at this time as no management necessary, likely incidental finding continue gabapentin and fentanyl patch associated weakness - see above (3) Pneumonia: Plan: failed outpatient levofloxacin x7d at [facility] Patient with continued symptoms of dry cough and dyspnea at rest, along with fatigue does have history of MRSA positive urine CXR showing R>L pleural effusions with atelectasis versus pneumonia, cardiomegaly with pulmonary edema Biofire negative no leukocytosis, VSS, non-hypoxic procal elevated at 0.82 will start cefepime (renally dosed for CrCl 15.7) and azithromycin for atypical coverage If MRSA positive then will add vancomycin incentive spirometry sputum culture (4) ESRD (end stage renal disease) on dialysis: Plan: history of end-stage renal disease on dialysis Friday, Friday, Friday Renal function stable on admission, baseline Consult to nephrology Due for dialysis today 07/16 Midodrine pre dialysis Dialysis diet Continue Sevelmar and Triphrocaps Strict I&O's (5) Elevated troponin: Plan: 36.3 likely 2/2 demand ischemia with chronic a fib trend trop EKG showing A-fib with RVR, rate 101, no acute ischemic changes denies cp (6) Sacral decubitus ulcer, stage IV: Plan: known/chronic history of Patient unable to have neurosurgical intervention on lumbar assist due to sacral ulcer Wound care consulted (7) Atrial fibrillation: Plan: history of permanent A-fib - EKG on admission showed a fib RVR, rate 101 -> now trending downward in low 90s - telemetry showing continued a fib - recent TSH WNL - Anticoagulated with Eliquis 2.5 mg BID; renally dosed - continue - continue metoprolol (8) History of CHF (congestive heart failure): Plan: history of HFpEF Last echocardiogram on 04/08/24 showing mild LVH, EF 55 to 60%, moderate aortic stenosis, mild mitral regurg CXR showing cardiomegaly with pulmonary edema volume status will be managed with hemodialysis Strict I&O monitoring Daily weights Plan Chronic stable diagnoses: WEI - cpap ordered HS anemia of chronic disease - stable neurogenic bladder - Perry catheter in place HLD - continue statin Anxiety/depression - continue mirtazapine and alprazolam prn Ostomy status VTE ppx: Continue Eliquis Diet: dialysis diet Dispo: med surg; to have dialysis today 07/16, anticipated placement to [facility] Admission and Anticipated Discharge Date Admission Date: 07/16/24 History of Present Illness Chief Complaint: weakness Primary Care Provider: Jasiel Pineda DO Patient is a 78-year-old male with a past medical history of end-stage renal disease on dialysis Friday, anemia of chronic disease, sacral wound stage IV, s/p, HFpEF, permanent A-fib, paraplegia. Patient stated he also has a cyst of the L1/L2 region. He comes in today after being discharged from [facility] on Friday. He stated that he is weak and unable to be at home. at [facility] they worked on getting him from bed to chair which she was able to do on discharge, his strength is about the same but his bed is different at home and he is unable to sit up out of bed. His stated that when he tries to sit up he falls backwards. He stated that he has also felt fatigued for about 3 days. He was treated for pneumonia at [facility] with levofloxacin, he said he finished the 7-day antibiotic course about 1 week ago. he has an occasional amount productive cough and dyspnea at rest. Symptoms have been overall unchanged since antibiotic course. He stated that for about a week he has not slept well due to new onset of right leg pain/tingling/numbness. He stated that he is unable to move his right leg, he feels as though the lumbar cyst has grown; he has not had an MRI in quite some time as per the patient. He has chronic right wrist and left hip pain. Patient denies fever, chills, headache, dizziness, lightheadedness, vision changes, rhinorrhea, sore throat, chest pain, abdominal pain, nausea, vomiting, diarrhea, constipation, edema. He lives at home with his who was updated at bedside. He uses CPAP overni ght. He took all of his home medications this morning. he placed his fentanyl patch last night. He wishes to be full code at this time. His goal is to have PT/OT here and return back to [facility] for further PT/OT. Allergies Allergy/AdvReac Type Severity Reaction Status Date / Time tetracycline Allergy Intermediate HIVES Verified 04/25/24 15:40 NSAIDS (Non-Steroidal Allergy Unknown Unknown, Unverified 04/25/24 15:40 Anti-Inflamma on file w/ [facility] morphine AdvReac Intermediate Nausea Verified 04/25/24 15:40 Home Medications Medication Instructions Recorded Confirmed Type cholecalciferol (vitamin D3) 50 50 mcg PO QPM 12/31/19 07/16/24 History mcg (2,000 unit) tablet (Vitamin D3) Wheelchair (Powered) (Power #1 ea 01/04/22 04/25/24 Rx Wheelchair) sevelamer carbonate 800 mg tablet See Rx Instructions .Route .COMPLEX 09/20/22 07/16/24 History alprazolam 0.25 mg tablet 0.25 mg PO HS PRN Anxiety/Panic 10/09/23 07/16/24 Rx attacks #30 tabs Mattress (Air or other) #1 ea 10/21/23 04/25/24 Rx apixaban 2.5 mg tablet (Eliquis) 2.5 mg PO BID #180 tabs 02/03/24 07/16/24 Rx gabapentin 300 mg capsule 600 mg (2 x 300 mg) PO HS #180 caps 03/05/24 07/16/24 Rx atorvastatin 20 mg tablet 20 mg PO DAILY 04/14/24 07/16/24 History metoprolol succinate 25 mg 25 mg PO QAM 04/14/24 07/16/24 History tablet,extended release 24 hr midodrine 5 mg tablet 5 mg PO 3XWK 04/14/24 07/16/24 History vitamin B complex and vitamin C 1 cap PO QAM 04/14/24 07/16/24 History no.20-folic acid 1 mg capsule (Triphrocaps) polyethylene glycol 3350 17 gram 17 g PO DAILY PRN constipation #5 04/30/24 07/16/24 Rx oral powder packet (Miralax) ea fentanyl 25 mcg/hr transdermal 1 patch transdermal Q3D #10 ea 06/01/24 07/16/24 Rx patch oxycodone 5 mg tablet 5 - 10 mg (1 - 2 x 5 mg) PO TID 06/01/24 07/16/24 Rx PRN pain #20 tabs acetaminophen 325 mg tablet 650 mg PO QID PRN Pain 07/14/24 07/16/24 History docusate sodium 100 mg capsule 100 mg PO BID PRN Constipation 07/14/24 07/16/24 History menthol 0.44 %-zinc oxide 20.6 % 1 applic topical DAILY PRN Other 07/14/24 07/16/24 History topical ointment (Calmoseptine) mirtazapine 7.5 mg tablet 15 mg PO HS 07/14/24 07/16/24 History robitussin dm 10 ml PO DIRECTED PRN Other 07/14/24 07/16/24 History Past Med/Surg History Problem List (Updated 07/16/24 @ 13:43 by Abram Gaytan DO) Weakness (Acute) Ambulatory dysfunction History of CHF (congestive heart failure) Pneumonia Atrial fibrillation Follows with [facility] cardiology (Dr. Jarvis) On Eliquis Sacral decubitus ulcer, stage IV "stable to improved" per [place] wound clinic>[facility] AND [facility] 2X PER WEEK. patient's changes dressing as instructed at home. Pulmonary edema Weakness generalized Dialysis patient (Acute ~06/01/24) Anemia (Acute) Adenoviral infection (Acute) Adenovirus infection Altered bowel elimination due to intestinal ostomy (Acute) Insomnia MDD (major depressive disorder), single episode, mild CKD (chronic kidney disease) (Acute) Acute hypoxemic respiratory failure (Acute) Hypoxia (Acute) Elevated troponin Abnormal computed tomography of lung 08/05/23 - Wedge shaped consolidation of lung. No signs of PNA on exam. Recommend 3 month f/u CT ordered. Sleep apnea Generalized osteoarthritis Neurogenic claudication due to lumbar spinal stenosis Lower extremity edema Lymphedema Central venous catheter in place MRSA (methicillin resistant staph aureus) culture positive Abdominal aortic aneurysm (~2014) S/p Type A dissection with emergent repair in 2014 - Follows with vascular - last seen 11/2022- AAA 3.3cm, iliac artery aneursym (right 2.0cm and left 3.0 cm)- all stable in size; chronic thoracic aortic dissection- stable- vascular recommended repeating imaging May 2024 ESRD (end stage renal disease) on dialysis [facility] in [place] Fri-Fri-Fri Neuropathic pain Hyperlipidemia Anemia due to chronic kidney disease Anxiety Medical History (Updated 07/16/24 @ 13:43 by Abram Gaytan DO) Colostomy in place Laparoscopic loop sigmoid colostomy by Dr. Yaquelin Hou for sacral ulcer healing ESRD (end stage renal disease) on dialysis Anemia of chronic disease Wheelchair dependent Inability to walk Neurogenic bladder Neurogenic bowel Hypertension Encounter for pre-operative examination Lobar pneumonia 08/2022 treated at [facility] inpatient. 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 Shrestha at [facility]>WC BOUND FOR 3 YEARS D/T CYSTS. inhibiting patient to ambulate. 04/25/23: awaiting for surgery to remove the spinal cyst but will need his ulcer wound repaired and healed fully first --> reason for upcoming colostomy. Impotence, organic Sleep apnea CPAP PTSD (post-traumatic stress disorder) POST AORTIC DISSECTION Neurogenic bladder Self Catheterization since Aortic repair 4-5X PER DAY Lumbar spinal stenosis Surgical History History of removal of tunneled central venous catheter (CVC) with port removal of perm cath 05/[address] Mraroquin S/P arteriovenous (AV) fistula creation left S/P debridement (02/08/22) Sacral Wound Debridment, Sacral bone biopsy(Not Applicable) - Jose Le DO S/P debridement (06/27/21) Excisional Debridement Sacral Decubitus Ulcer down to muscle level 4cm x 6cm - Ranjeet Myers DO 06/27/2021 Excisional Debridement of Sacral Decubitus Ulcer Down to Bone, 11cm x 10cm(Not Applicable) - Ranjeet AAnshu Myers, DO 07/25/2021: MAC 3, ETT 7.5. History of revision of total hip arthroplasty History of arthroplasty of left hip S/P total right hip arthroplasty History of cardioversion mult>FOLLOWS WITH DR. JARVIS History of lumbar fusion History of bladder surgery History of transurethral resection of prostate Nausea and vomiting after administration of anesthetic agent History of arthroscopy RT KNEE History of open reduction and internal fixation (ORIF) procedure RT WRIST History of total knee replacement RT History of esophagogastroduodenoscopy (EGD) History of colonoscopy History of tooth extraction History of rhinoplasty History of cataract surgery RT/LEFT 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 History of gastric bypass 2010 History of cardiac catheterization 2004 - no stents - [facility] in [place] Family History Grandmother Family history of diabetes mellitus Mother Gallbladder disease Father Prostate cancer Myocardial infarction Hypertension Other Family history non-contributory No family history of adverse response to anesthesia Denies family history of Ovarian cancer Breast cancer Colorectal cancer Social History Smoking Status: Never smoker Second Hand Exposure: No; Do You Dip or Chew Tobacco: No; Hx Alcohol Use: No Hx Substance Use: No Preferred Language: Portuguese Communication Ability: Effective Visual Impairment: Limited Hearing Ability: Normal Science Manager Required: No Beliefs That Will Affect Care: None marital status: Current Living Situation: Spouse Current Living Situation Comment: Home with . Unable to care for patient current occupational status: retired How many Children do You have: 1 Feels Safe at Home: Yes Childhood Exposure to Second-Hand Smoke: Yes (father did ) Diet: regular Diet Comment: low sugar, low phospate caffeine: Yes (tea) during the past year weight has: remained stable Dental Care, Regularly: Yes Physical Activity Frequency: Does not Exercise Physical Activity Frequency Comment: goes to PT twice a week Seatbelt Use: always Sunscreen Use: Yes Do you think of yourself as: straight/heterosexual Gender Identity: Male Assistive Devices: Bedside Commode, CPAP, Hospital Bed, Scooter/Electric Scooter and Other Review of Systems Review of Systems: see HPI Physical Exam Physical Exam: The patient is awake, alert and oriented 3, well developed and well nourished, normocephalic and atraumatic, in no acute distress. Non-toxic appearing. HEENT- EOMI, mucous membranes dry. Hearing grossly intact. Heart- Irregularly irregular rhythm. normal S1 and S2. No murmurs, rubs or gallops. Lungs- decreased bilaterally, no respiratory distress, no accessory muscle use. Abdomen-normal bowel sounds and soft. No ascites noted. Non-tender. Extremities- no clubbing, cyanosis, or edema. Rheumatologic-decreased range of motion. Psychiatric-normal affect. Musculoskeletal: 4/5 strength L LE - chronic/ baseline 1/5 strength R LE - new Results & Data Results & Data Vital Signs (Past 12 Hours) Vital Signs Temp Pulse Pulse Resp BP BP Pulse Ox 07/16/24 09:29 97 H 20 152/107 H 93 07/16/24 09:03 92 H 07/16/24 08:59 36.8 C 97 H 18 144/116 H 93 O2 Del Method 07/16/24 09:29 Room Air 07/16/24 09:03 07/16/24 08:59 Room Air Laboratory Results Reviewed CBC, PT/INR, CMP, Pro-Nik, bio fire Diagnostic Findings review CXR ECG Additional Comments: A-fib with RVR, rate 101 Code Status & VTE Plan Code Status full code VTE Prophylaxis Plan VTE Prophylaxis will be ordered: Yes Supervising Physician Co-Signing Physician Notes Patient seen and examined, chart reviewed, case discussed with Kalina Contreras PA-C and I agree with the assessment and plan as above except as otherwise noted Labs and images reviewed Guanaco is a 78-year-old male with a history of ESRDHDD, MDD, HFpEF, neurogenic bladder with chronic indwelling Perry, stage IV decubitus ulcer, and recent discharge 06/01/2024 after an admission for generalized weakness with metabolic encephalopathy thought to be from a UTI. Patient is chronically paraplegic with an ostomy and decub. After last hospitalization was discharged to [place] care. Progress at that facility and was discharged back home 2 days ago but has not been able to function at home and was referred back to the emergency department for weakness. On evaluation chest x-ray does show some pulmonary edema, also has right basilar predominant opacities suspicious for atelectasis versus pneumonia. He does not have a leukocytosis. Patient did develop pneumonia at [facility] was treated with levofloxacin but has had no improvement with this. Procalcitonin is elevated consistent with bacterial PNA. He has not improved on a fluoroquinolone, will expand coverage. Cefepime/azithromycin for atypical coverage on admission as he is allergic to tetracycline. If MRSA nares positive then will add vancomycin Additionally patient has new severe right lower extremity weakness and some pain into the extremity. Has a known lumbar cyst but typically has left-sided symptoms. Weakness has been present for 7 days. Cannot assess bowel/bladder symptoms as he has an indwelling Perry and ostomy. Due to [place]in focal neurologic deficits of the lower extremity lumbar MRI is indicated. Will also include a CThead. As symptoms have been present for many days and he does not have any upper extremity or cranial nerve deficits will defer angiography.Troponin chronically with mild elevation, 36.3 with repeat pending. Bio fire pending. Agree with above PG Care Time/CCT Total # of Minutes Spent Total Time Spent with Patient: Total time spent is greater than 50% in coordination of care (as documented) at patient's floor/unit and/or counseling patient: Coding Level of Care Code 45767 INT INP/OBS CARE 3/75MIN Diagnoses Weakness generalized R53.1 Neuropathic pain M79.2 Pneumonia J18.9 Laterality: right Lung location: middle lobe of lung Pneumonia type: due to unspecified organism ESRD (end stage renal disease) on dialysis N18.6; Z99.2 Elevated troponin R79.89 Sacral decubitus ulcer, stage IV L89.154 Permanent atrial fibrillation I48.2 Atrial fibrillation type: permanent History of CHF (congestive heart failure) Z86.79 (3) Pneumonia Laterality: right Lung location: middle lobe of lung Pneumonia type: due to unspecified organism Qualified Code(s): J18.9 - Pneumonia, unspecified organism (7) Atrial fibrillation Atrial fibrillation type: permanent Qualified Code(s): I48.2 - Chronic atrial fibrillation
[2024-07-16 10:06] LABS: INR 1.2 (0.9-1.1); Prothrombin Time 12.8 Seconds (9.0-12.0)
[2024-07-16 11:00] LABS: Adenovirus PCR Not Detected (NotDetected); Bordetella parapertussis PCR Not Detected (NotDetected); Bordetella pertussis PCR Not Detected (NotDetected); Chlamydia pneumoniae PCR Not Detected (NotDetected); Coronavirus 229E PCR Not Detected (NotDetected); Coronavirus CoV-2 (COVID19)PCR Not Detected (NotDetected); Coronavirus HKU1 PCR Not Detected (NotDetected); Coronavirus NL63 PCR Not Detected (NotDetected); Coronavirus OC43PCR Not Detected (NotDetected); Human Metapneumovirus PCR Not Detected (NotDetected); Influenza A PCR Not Detected (NotDetected); Influenza B PCR Not Detected (NotDetected); Mycoplasma pneumoniae PCR Not Detected (NotDetected); Parainfluenza Virus 1 PCR Not Detected (NotDetected); Parainfluenza Virus 2 PCR Not Detected (NotDetected); Parainfluenza Virus 3 PCR Not Detected (NotDetected); Parainfluenza Virus 4 PCR Not Detected (NotDetected); Respiratory Syncytial VirusPCR Not Detected (NotDetected); Rhinovirus/Enterovirus PCR Not Detected (NotDetected)
[2024-07-16] MEDS ORDERED: CEFEPIME 2000MG 2,000 MG/20 ML SYR IV SCH (11:15)
[2024-07-16 11:49] LABS: Appearance Urine Clear (Clear); Bilirubin Urine Negative (Negative); Blood Urine 2+ (Negative); Color Urine Yellow; Glucose Urine UA Trace (Negative); Ketones Urine Negative (Negative); Leukocyte Esterase Urine 1+ (Negative); Nitrite Urine Negative (Negative); Protein Urine 3+ (Negative); Urobilinogen Urine Negative (Negative); pH Urine >= 9.0 (4.5-7.5)
[2024-07-16 12:08] LABS: Epithelial Cell Urine 0-2 /hpf (0-2); RBC Urine 0-2 /hpf (0-2)
[2024-07-16 12:09] LABS: Bacteria Urine 1+ (None Seen)
--- NOTE | 2024-07-16 12:48 | Nephrology Consultation ---
Date of Consultation July 16, 2024 Assessment & Plan (1) ESRD (end stage renal disease) on dialysis: (2) Anemia: (3) Weakness generalized: (4) Pulmonary edema: (5) Sacral decubitus ulcer, stage IV: (6) Ambulatory dysfunction: Plan 78-year-old gentleman with end-stage kidney disease on hemodialysis, Friday, , Friday via left brachiocephalic AV fistula. Admitted with ambulatory dysfunction and pneumonia. Has stage IV sacral decubitus ulcer and spinal cyst with recent rt LE numbness. Respiratory status acceptable Electrolyte acceptable. -- Plan for hemodialysis now as his regular schedule this morning for 3.5 hours, UF 3 L as tolerated. -- Continue on Nephrocaps and phosphate binder -- Epogen 10,000 units with dialysis today -- Left arm nephrology precaution, dose medications for EGFR less than 10 --waiting on MRI of back Thank you for allowing me to participate in your patient's care. It was a pleasure to see Sylvester. History of Present Illness Reason for Consultation: ESRD History of Present Illness Mr. Guanaco Escobedo (Ken) is a 78-year-old male with ESKD on HD MWF, hypertension, s/p colostomy, stage 4 sacral decubitus ulcer, neurogenic bladder, neurogenic bowel admitted with ambulatory dysfunction and pneumonia. Nephrology consult requested for management of hemodialysis while inpatient. EMR records were reviewed in detail during patient's visit. Sylvester was brought to ED with ambulatory dysfunction and pneumonia. He was just being from [facility] on 07/13/24 but has been having difficulty with ambulation since he came home. He also had a fall at home last night from his bed but he just slid down to the floor. He was recently treated for pneumonia at [facility] with levofloxacin for 7-day, completed about 1 week ago. He also has been having numbness and tingling in his right leg for last about 3 weeks. On admission , labs were otherwise unremarkable, hemoglobin was 9.0, chest x-ray showed bilateral pleural effusion. He has been getting dialysis regularly and reports not missing any treatment recently, had dialysis Friday. Denied any fever or chills. Electrolyte has been acceptable. Has end-stage kidney disease secondary to vascular disease and hypertensive nephrosclerosis as well as history of ATN, started on hemodialysis during admission at [facility] in January 2022, has been on dialysis Friday, Friday, Friday at [facility] via left brachiocephalic AV fistula, under care of Dr. Paul. Dialysis for 3.5 hours, usually gains about 1 to 2 kg in between dialysis treatments. Past medical history also significant for osteoarthritis, spinal stenosis, history of type A aortic dissection with resultant spinal ischemia and neurogenic bladder. 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 Has colostomy. Reports feeling tired, no SOB. BP fair. Volume status acceptable. Allergies Allergy/AdvReac Type Severity Reaction Status Date / Time tetracycline Allergy Intermediate HIVES Verified 04/25/24 15:40 NSAIDS (Non-Steroidal Allergy Unknown Unknown, Unverified 04/25/24 15:40 Anti-Inflamma on file w/ [facility] morphine AdvReac Intermediate Nausea Verified 04/25/24 15:40 Home Medications Medication Instructions Recorded Confirmed Type cholecalciferol (vitamin D3) 50 50 mcg PO QPM 12/31/19 07/16/24 History mcg (2,000 unit) tablet (Vitamin D3) Wheelchair (Powered) (Power #1 ea 01/04/22 04/25/24 Rx Wheelchair) sevelamer carbonate 800 mg tablet See Rx Instructions .Route .COMPLEX 09/20/22 07/16/24 History alprazolam 0.25 mg tablet 0.25 mg PO HS PRN Anxiety/Panic 10/09/23 07/16/24 Rx attacks #30 tabs Mattress (Air or other) #1 ea 10/21/23 04/25/24 Rx apixaban 2.5 mg tablet (Eliquis) 2.5 mg PO BID #180 tabs 02/03/24 07/16/24 Rx gabapentin 300 mg capsule 600 mg (2 x 300 mg) PO HS #180 caps 03/05/24 07/16/24 Rx atorvastatin 20 mg tablet 20 mg PO DAILY 04/14/24 07/16/24 History metoprolol succinate 25 mg 25 mg PO QAM 04/14/24 07/16/24 History tablet,extended release 24 hr midodrine 5 mg tablet 5 mg PO 3XWK 04/14/24 07/16/24 History vitamin B complex and vitamin C 1 cap PO QAM 04/14/24 07/16/24 History no.20-folic acid 1 mg capsule (Triphrocaps) polyethylene glycol 3350 17 gram 17 g PO DAILY PRN constipation #5 04/30/24 07/16/24 Rx oral powder packet (Miralax) ea fentanyl 25 mcg/hr transdermal 1 patch transdermal Q3D #10 ea 06/01/24 07/16/24 Rx patch oxycodone 5 mg tablet 5 - 10 mg (1 - 2 x 5 mg) PO TID 06/01/24 07/16/24 Rx PRN pain #20 tabs acetaminophen 325 mg tablet 650 mg PO QID PRN Pain 07/14/24 07/16/24 History docusate sodium 100 mg capsule 100 mg PO BID PRN Constipation 07/14/24 07/16/24 History menthol 0.44 %-zinc oxide 20.6 % 1 applic topical DAILY PRN Other 07/14/24 07/16/24 History topical ointment (Calmoseptine) mirtazapine 7.5 mg tablet 15 mg PO HS 07/14/24 07/16/24 History robitussin dm 10 ml PO DIRECTED PRN Other 07/14/24 07/16/24 History Patient History Medical History (Updated 07/16/24 @ 13:07 by Cheyanne Cano MD) Colostomy in place Laparoscopic loop sigmoid colostomy by Dr. Yaquelin Hou for sacral ulcer healing ESRD (end stage renal disease) on dialysis Anemia of chronic disease Wheelchair dependent Inability to walk Neurogenic bladder Neurogenic bowel Hypertension Encounter for pre-operative examination Lobar pneumonia 08/2022 treated at [facility] inpatient. 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 Shrestha at [facility]>WC BOUND FOR 3 YEARS D/T CYSTS. inhibiting patient to ambulate. 04/25/23: awaiting for surgery to remove the spinal cyst but will need his ulcer wound repaired and healed fully first --> reason for upcoming colostomy. Impotence, organic Sleep apnea CPAP PTSD (post-traumatic stress disorder) POST AORTIC DISSECTION Neurogenic bladder Self Catheterization since Aortic repair 4-5X PER DAY Lumbar spinal stenosis Surgical History History of removal of tunneled central venous catheter (CVC) with port removal of perm cath 05/[address] Marroquin S/P arteriovenous (AV) fistula creation left S/P debridement (02/08/22) Sacral Wound Debridment, Sacral bone biopsy(Not Applicable) - Jose Le, DO S/P debridement (06/27/21) Excisional Debridement Sacral Decubitus Ulcer down to muscle level 4cm x 6cm - Ranjeet Myers, DO 06/27/2021 Excisional Debridement of Sacral Decubitus Ulcer Down to Bone, 11cm x 10cm(Not Applicable) - Ranjeet Myers, DO 07/25/2021: MAC 3, ETT 7.5. History of revision of total hip arthroplasty History of arthroplasty of left hip S/P total right hip arthroplasty History of cardioversion mult>FOLLOWS WITH DR. 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 History of gastric bypass 2010 History of cardiac catheterization 2003 - no stents - [facility] in [place] Family History Grandmother Family history of diabetes mellitus Mother Gallbladder disease Father Prostate cancer Myocardial infarction Hypertension Other Family history non-contributory No family history of adverse response to anesthesia Denies family history of Ovarian cancer Breast cancer Colorectal cancer Social History Smoking Status: Never smoker Second Hand Exposure: No; Do You Dip or Chew Tobacco: No; Hx Alcohol Use: No Hx Substance Use: No Preferred Language: Chinese Communication Ability: Effective Visual Impairment: Limited Hearing Ability: Normal Account Support Associate Required: No Beliefs That Will Affect Care: None marital status: Current Living Situation: Spouse Current Living Situation Comment: Home with . Unable to care for patient current occupational status: retired How many Children do You have: 1 Feels Safe at Home: Yes Childhood Exposure to Second-Hand Smoke: Yes (father did ) Diet: regular Diet Comment: low sugar, low phospate caffeine: Yes (tea) during the past year weight has: remained stable Dental Care, Regularly: Yes Physical Activity Frequency: Does not Exercise Physical Activity Frequency Comment: goes to PT twice a week Seatbelt Use: always Sunscreen Use: Yes Do you think of yourself as: straight/heterosexual Gender Identity: Male Assistive Devices: Bedside Commode, CPAP, Hospital Bed, Scooter/Electric Scooter and Other Review of Systems Review of Systems: All systems reviewed & are unremarkable except as noted in HPI & below Physical Exam Constitutional: WD/WN, vitals as above no acute distress Eyes: + anicteric sclerae Neck: normal visual inspection Respiratory: no respiratory distress Cardiovascular: RRR, no murmur, no edema Gastrointestinal (Abdomen): Percussion/Palpation: abdomen soft; abdomen nontender Musculoskeletal: Extremities: extremities normal to inspection Skin: no rashes, warm and dry Neurologic: no focal motor deficits Psychiatric: Orientation: alert and oriented x 3 Affect: euthymic affect Results & Data Vital Signs (Past 12 Hours) Vital Signs Temp Pulse Pulse Resp BP BP Pulse Ox 07/16/24 11:03 94 H 19 145/95 H 95 07/16/24 09:29 97 H 20 152/107 H 93 07/16/24 09:03 92 H 07/16/24 08:59 36.8 C 97 H 18 144/116 H 93 O2 Del Method 07/16/24 11:03 Room Air 07/16/24 09:29 Room Air 07/16/24 09:03 07/16/24 08:59 Room Air PG Care Time/CCT Total # of Minutes Spent Total Time Spent with Patient: Total time spent is greater than 50% in coordination of care (as documented) at patient's floor/unit and/or counseling patient: Coding Level of Care Code 09769 INT INP/OBS CARE 3/75MIN Diagnoses ESRD (end stage renal disease) on dialysis N18.6; Z99.2 Anemia D64.9 Anemia type: unspecified type Weakness generalized R53.1 Pulmonary edema J81.1 Sacral decubitus ulcer, stage IV L89.154 Ambulatory dysfunction R26.2 (2) Anemia Anemia type: unspecified type Qualified Code(s): D64.9 - Anemia, unspecified
[2024-07-16] MEDS ORDERED: ACETAMINOPHEN 325 MG TAB PO PRN (13:21)
[2024-07-16] MEDS ORDERED: MENTHOL-ZINC OXIDE 360 APPLN/120 GM TUBE EXT PRN (13:21)
[2024-07-16] MEDS ORDERED: DOCUSATE SODIUM 100 MG CAP PO PRN (13:21)
[2024-07-16] MEDS ORDERED: ALPRAZolam 0.25 MG TABLET PO PRN (13:21)
[2024-07-16] MEDS ORDERED: POLYETHYLENE (MIRALAX) 17 GM PACK PO PRN (13:21)
[2024-07-16] MEDS ORDERED: MELATONIN 3 MG TAB PO PRN (13:21)
--- NOTE | 2024-07-16 13:24 | CT Scan Report ---
CT head/brain wo con CLINICAL HISTORY: 78 years-old Male with right LE weakness. Acute strokelike symptoms TECHNIQUE: Multiple axial CT images of the head were obtained without contrast. A dose lowering tech nique was utilized adhering to the principles of ALARA. CT DOSE: 625.8 mGy.cm COMPARISON: 01/15/2020 FINDINGS: No acute intracranial hemorrhage, midline shift, intra-axial mass, acute territorial ischemia or abno rmal extra-axial collection. Involutional changes with progressively worsened white matter hypodensit ies suggestive of probable chronic microvascular ischemic disease. 8 mm hyperdense focus within the t hird ventricle on image 16 series 2 previously measured 6 mm. Ventriculomegaly has progressed from pr ior, transverse dimension of the lateral ventricles measuring 4.3 cm, previously 3.8 cm. The calvarium is intact. The paranasal sinuses, mastoid air cells, and middle ear cavities are clear . IMPRESSION: 1. No acute intracranial hemorrhage, midline shift, or acute territorial infarct. 2. Involutional changes with chronic microvascular ischemic disease, progressed from the 01/15/2020 st udy. 3. 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 4. Ventriculomegaly is likely on an ex vacuo basis. Hydrocephalus considered less likely. ACT 112: Negative or not required by law. The above report was generated using voice recognition software. It may contain grammatical, syntax o r spelling errors. Electronically signed by: Stan Lui M.D. 07/16/2024 1:23 PM
[2024-07-16] MEDS ORDERED: SEVELAMER CARBONATE 800 MG TAB PO PRN (13:30)
--- NOTE | 2024-07-16 14:15 | Magnetic Resonance Report ---
MRI OF THE LUMBAR SPINE WITHOUT CONTRAST CLINICAL HISTORY: Right lower extremity numbness, history of L1/2 cyst COMPARISON STUDY: Lumbar spine MRI June 08, 2021. Lumbar spine CT July 13, 2021. TECHNIQUE: Utilizing a 1.5 Maria T magnet and dedicated coil, multiplanar, multiecho imaging of the [facility] spine was performed without IV contrast. FINDINGS: For purposes of numbering on this exam, the L5-S1 disc space is assigned to axial image 21 of 25 of t he lower axial sequences. No lumbar spine fractures are present. There are postoperative findings con sistent with L3-L5 decompression and fusion. A sacral decubitus ulcer is partially imaged. Marrow sig nal abnormality within the sacrum is most pronounced at the S4 level. This corresponds to a site of s clerosis on abdominal CT of April 12, 2024. No intracanalicular mass or fluid collection is prese nt. The conus terminates at the T12-L1 level. This exam is mildly compromised by motion artifact. L1-2: There is moderate facet arthrosis. The central canal and neural foramen are patent. L2-3: There is disc bulge with severe facet arthrosis in extensive ligamentous hypertrophy. This resu lts in severe central canal stenosis with patent AP diameter of the canal is 4.1 mm. This has progres sed since MRI of June 08, 2021. There is moderate right and mild left neural foraminal stenosis. L3-4: There is no recurrent central canal stenosis. There is mild bilateral neural foraminal stenosis . L4-5: There is no recurrent central canal stenosis. Neural foramen are patent. L5-S1: Central canal is patent. There is mild bilateral neural foraminal stenosis. IMPRESSION: 1. Status post L3-L5 decompression and fusion. 2. Severe central canal stenosis at L2-L3 which is progressed since previous MRI. This is due to disc bulge with severe facet arthrosis and ligamentous hypertrophy. Otherwise, patent central canal. 3. Exam mildly compromised by motion artifact. 4. Redemonstration of a sacral decubitus ulcer with marrow signal abnormality within the visualized s acrum, as shown on prior CT. This favors chronic osteomyelitis. 5. Multilevel neural foraminal stenosis, as above. ACT 112: Negative or not required by law. Electronically signed by: Chao Connolly M.D. 07/16/2024 2:13 PM
[2024-07-16] MEDS: EPOETIN ALFA 10,000 UNITS/ML VIAL IV STA (17:00)
[2024-07-16] MEDS: CEFEPIME 1000MG 1,000 MG/10 ML SYR IV SCH (18:24)
[2024-07-16] MEDS: CHECK fentaNYL PATCH PLACEMENT SCH (18:26)
[2024-07-16] MEDS: SEVELAMER CARBONATE 800 MG TAB PO SCH (18:26)
[2024-07-16] MEDS: AZITHROMYCIN 250 MG TAB PO SCH (21:52)
[2024-07-16] MEDS: CHOLECALCIFEROL 25 MCG (1000 UNITS) TAB PO SCH (21:52)
[2024-07-16] MEDS: APIXABAN 2.5 MG TAB PO SCH (21:53)
[2024-07-16] MEDS: GABAPENTIN 300 MG CAP PO SCH (21:53)
[2024-07-16] MEDS: MIRTAZAPINE TAB 15 MG TAB PO SCH (21:53)
--- NOTE | 2024-07-16 22:17 | Electrocardiogram Report ---
Test Reason : Blood Pressure : */* mmHG Vent. Rate : 101 BPM Atrial Rate : * BPM P-R Int : * ms QRS Dur : 110 ms QT Int : 360 ms P-R-T Axes : * -63 92 degrees QTcB Int : 466 ms Atrial fibrillation with rapid ventricular response Left anterior fascicular block Minimal voltage criteria for LVH, may be normal variant Nonspecific T wave abnormality Abnormal ECG When compared with ECG of 22-May-2024 13:31, No significant change was found Confirmed by Mohsen Terrell ([id number]) on 07/16/2024 10:16:48 PM Referred By: Confirmed By: Mohsen Terrell
--- NOTE | 2024-07-16 22:28 | Magnetic Resonance Report ---
Exam(s): MRI HEAD Without Contrast EXAM: MR Head Without Intravenous Contrast CLINICAL HISTORY: Reason for exam: new 3rd venttricle cyst. TECHNIQUE: Magnetic resonance images of the head/brain without intravenous contrast in multiple planes. COMPARISON: Prior head CT from July 16, 2024. FINDINGS: Brain: There is a small colloid cyst proximal third ventricle measuring 8.6 x 6.6 x 5.1 mm.. Advanced stenosis of bilateral changes. The flow voids at the base of the brain are intact. No mass. No hemorrhage. No acute infarct. Ventricles: Mild ventriculomegaly. Bones/joints: Unremarkable. No acute fracture. Sinuses: Chronic left sphenoid and ethmoid sinusitis. No acute sinusitis. Mastoid air cells: Unremarkable as visualized. No mastoid effusion. Orbits: Bilateral lens replacements. IMPRESSION: No evidence of acute intracranial pathology. 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 Advanced nonspecific white matter changes. Electronically signed by: Nancie Winston MD 07/16/24 22:27 PM
[2024-07-17 08:20] LABS: Basophils # (auto) 0.04 K/uL (0.00-0.20); Basophils % (auto) 0.7 %; Eosinophils # (auto) 0.32 K/uL (0.00-0.50); Eosinophils % (auto) 5.4 %; Hematocrit (blood only) 28.3 % (42.0-52.0); Hemoglobin 9.2 g/dl (14.0-18.0); Immature Granulocytes # (auto) 0.01 K/uL (0.01-0.20); Immature Granulocytes % (auto) 0.2 %; Lymphocytes # (auto) 0.64 K/uL (1.20-3.40); Lymphocytes % (auto) 10.8 %; Mean Corpuscular Hemoglobin 32.1 pg (25.0-34.0); Mean Corpuscular Hgb Conc 32.5 g/dL (32.0-36.0); Mean Corpuscular Volume 98.6 fL (80.0-100.0); Mean Platelet Volume 9.5 fL (9.4-12.4); Monocytes % (auto) 10.1 %; Neutrophils # (auto) 4.32 K/uL (1.40-6.50); Neutrophils % (auto) 72.8 %; Platelet Count 136 K/uL (130-400); RDW Coefficient of Variation 16.3 % (11.5-14.5); RDW Standard Deviation 58.6 fL (36.4-46.3); Red Blood Count 2.87 M/uL (4.70-6.10); White Blood Count 5.93 K/ul (4.8-10.8)
[2024-07-17 08:33] LABS: BUN Creatinine Ratio 7.2 (10-20); Calcium 8.9 mg/dl (8.6-10.3); Creatinine Clr Calc Pharmacy 20.9 ml/min; Phosphorus 3.2 mg/dl (2.5-4.9); Potassium 3.9 mmol/L (3.5-5.1)
--- NOTE | 2024-07-17 11:15 | Nephrology Progress Note ---
Date of Service July 17, 2024 Assessment & Plan (1) ESRD (end stage renal disease) on dialysis: (2) Anemia: (3) Weakness generalized: (4) Pulmonary edema: (5) Sacral decubitus ulcer, stage IV: (6) Ambulatory dysfunction: Plan 78-year-old gentleman with end-stage kidney disease on hemodialysis, Friday, , Friday via left brachiocephalic AV fistula. Admitted with ambulatory dysfunction and pneumonia. 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 Respiratory status acceptable Electrolyte acceptable. -- had hemodialysis yesterday as his regular schedule. -- Continue on Nephrocaps and phosphate binder -- Epogen 10,000 units with dialysis on 07/16/24 -- Left arm nephrology precaution, dose medications for EGFR less than 10 Admission and Anticipated Discharge Date Admission Date: July 16, 2024 Subjective Sylvester was seen and evaluated this morning. Had dialysis yesterday, currently blood pressure, volume status, electrolyte acceptable. MRI brain yesterday was unremarkable. MRI lumbar MRI showed worsening of severe spinal stenosis and bulging disc. Review of Systems Review of Systems: Detailed review of system was done and pertinent positives and negatives are mentioned above. Physical Exam Constitutional: WD/WN, vitals as above + ill appearing; no acute distress Eyes: + anicteric sclerae Respiratory: no respiratory distress Auscultation: lungs clear to auscultation bilaterally Cardiovascular: RRR, no murmur, no edema Musculoskeletal: Extremities: extremities normal to inspection Skin: + turgor decreased, + ulcer and + skin a trophy Neurologic: Numbness and tingling of right lower extremity. Psychiatric: Orientation: alert and oriented x 3 Affect: euthymic affect Results & Data Vital Signs (Past 12 Hours) Vital Signs Temp Pulse Resp BP Pulse Ox O2 Del Method 07/17/24 07:30 36.8 C 106 H 18 130/95 96 Room Air PG Care Time/CCT Total # of Minutes Spent Total Time Spent with Patient: Total time spent is greater than 50% in coordination of care (as documented) at patient's floor/unit and/or counseling patient: Coding Level of Care Code 59843 SUB INP/OBS CARE 2/35MIN Diagnoses ESRD (end stage renal disease) on dialysis N18.6; Z99.2 Anemia D64.9 Anemia type: unspecified type Weakness generalized R53.1 Pulmonary edema J81.1 Sacral decubitus ulcer, stage IV L89.154 Ambulatory dysfunction R26.2 (2) Anemia Anemia type: unspecified type Qualified Code(s): D64.9 - Anemia, unspecified
[2024-07-17] MEDS: ATORVASTATIN 20 MG TAB PO SCH (11:41)
[2024-07-17] MEDS: METOPROLOL SUCC 25MG EXT REL TAB PO SCH (11:42)
[2024-07-17] MEDS: NEPHROCAPS PO SCH (14:44)
--- NOTE | 2024-07-17 17:59 | Hospitalist Progress Note ---
Date of Service July 17, 2024 Assessment & Plan (1) Weakness generalized: Plan: Was just discharged from [facility] 07/14/24 and patient reports difficulty transferring from bed to wheelchair at home Inability to care for self at home. is not able to safely care for him at this time per patient report wheelchair dependent fall and aspiration precautions PT/OT consulted Case management consulted; patient would like to return back to [facility] (2) Neuropathic pain: Plan: spinal ischemia, neurogenic, paraplegia Patient states he has a cyst at L1/L2 region Has chronic left hip pain/tingling Has new acute right leg pain/numbness that began 07/13; waxes and wanes Lumbar MRI with progressive changes but no change in central canal. Severe arthrosis at the facets. PT/OT ordered. 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 Harris - Recommending brain MRI with and without contrast, discussed end-stage renal disease. Brain MRI wo contrast with no evidence of acute intracranial pathology. Advanced nonspecific white matter changes. 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 - no need for formal consult at this time as no management necessary, likely incidental finding continue gabapentin and fentanyl patch associated weakness - see above (3) Pneumonia: Plan: failed outpatient levofloxacin x7d at [facility] Patient with continued symptoms of cough with clear sputum and dyspnea at rest, along with fatigue does have history of MRSA positive urine CXR showing R>L pleural effusions with atelectasis versus pneumonia, cardiomegaly with pulmonary edema Biofire negative no leukocytosis, VSS, non-hypoxic procal elevated at 0.82 will start cefepime (renally dosed for CrCl 15.7) and azithromycin for atypical coverage If MRSA positive then will add vancomycin sputum culture pending. Most likely atelectasis. If culture is negative, de-escalate antibiotics or even consider stopping since patient does not have fever. Encourage incentive spirometry (4) ESRD (end stage renal disease) on dialysis: Plan: history of end-stage renal disease on dialysis Friday, Friday, Friday Renal function stable on admission, baseline Nephrology consulted. Appreciate Dr. Cano's input Dialysis Friday Midodrine pre dialysis Dialysis diet Continue Sevelmar and Triphrocaps Strict I&O's (5) Elevated troponin: Plan: Likely secondary to demand ischemia with chronic a fib Trop trending downward EKG showing A-fib with RVR, rate 101, no acute ischemic changes denies cp (6) Sacral decubitus ulcer, stage IV: Plan: known/chronic history of Patient unable to have neurosurgical intervention on lumbar assist due to sacral ulcer Wound care consulted -will order Aquacel Ag with dressing changes twice daily pending evaluation by wound care Reposition per protocol as patient has difficulty repositioning himself (7) Atrial fibrillation: Plan: history of permanent A-fib - EKG on admission showed a fib RVR, rate 101 -> now trending downward in low 90s - telemetry showing continued a fib - recent TSH WNL - Anticoagulated with Eliquis 2.5 mg BID; renally dosed - continue - continue metoprolol (8) History of CHF (congestive heart failure): Plan: history of HFpEF Last echocardiogram on 04/08/24 showing mild LVH, EF 55 to 60%, moderate aortic stenosis, mild mitral regurg CXR showing cardiomegaly with pulmonary edema volume status will be managed with hemodialysis Strict I&O monitoring Daily weights Plan Chronic stable diagnoses: WEI - cpap ordered HS anemia of chronic disease - stable neurogenic bladder -chronic Perry catheter in place HLD - continue statin Anxiety/depression - continue mirtazapine and alprazolam prn Ostomy status VTE ppx: Continue Eliquis Diet: dialysis diet Dispo: med surg; to have dialysis -W-, anticipated placement to [facility] Admission and Anticipated Discharge Date Admission Date: July 16, 2024 Supervising Physician Co-Signing Physician Notes chart reviewed, case discussed with Danyelle Hirsch PA-C. as above Subjective Attending: Dr. Mendoza Patient seen and examined at bedside Hemodialysis yesterday. MRI brain yesterday was unremarkable. MRI lumbar MRI showed worsening of severe spinal stenosis and bulging disc. Long discussion about safety of patient at home. He agrees that he needs to go back to senior care as he does not feel that his can manage him at this time No acute pain or changes. Denies fever. No other acute complaints. Review of Systems 2 Review of Systems: A total of 10 systems was reviewed and is negative other than as listed in the HPI Physical Exam 2 Physical Exam: GENERAL : No acute distress EYES: No icterus, gaze conjugate NOSE: No evidence of epistaxis MOUTH: No lesions or candidiasis NECK: Supple LUNGS: CTA B/L, no wheezes, rales or rhonchi HEART: Regular, rate controlled ABDOMEN: Soft, NT, ND, BS Present : Indwelling Perry catheter EXTREMITIES: Trace bilateral LE edema, pedal pulses intact and equal bilaterally NEURO: A&OX3 Results & Data Results & Data Vital Signs (Past 12 Hours) Vital Signs Temp Pulse Resp BP Pulse Ox O2 Del Method 07/17/24 15:06 36.7 C 68 18 129/77 98 Room Air 07/17/24 07:30 36.8 C 106 H 18 130/95 96 Room Air Laboratory Results 07/17/24 07:57 07/17/24 07:57 Diagnostic Findings Chest X-Ray 07/16/24 09:06 XR chest 1V portable HISTORY: 78 years-old Male weakness COMPARISON: 05/31/2024 TECHNIQUE: AP view of the chest FINDINGS: Cardiac silhouette is enlarged. Median sternotomy. Vascular congestion with interstitial coarsening. Small right greater than left pleural effusions with right basilar predominant opacities. Findings are similar to prior. Bones appear grossly intact. Right axillary surgical clips. IMPRESSION: 1. Cardiomegaly with pulmonary edema. 2. Small right greater than left pleural effusions with right basilar predominant opacities which may represent atelectasis versus pneumonia. ACT 112: Negative or not required by law. The above report was generated using voice recognition software. It may contain grammatical, syntax or spelling errors. Electronically signed by: Stan Lui M.D. 07/16/2024 9:36 AM Lumbar Spine MRI 07/16/24 11:06 MRI OF THE LUMBAR SPINE WITHOUT CONTRAST CLINICAL HISTORY: Right lower extremity numbness, history of L1/2 cyst COMPARISON STUDY: Lumbar spine MRI June 08, 2021. Lumbar spine CT July 13, 2021. TECHNIQUE: Utilizing a 1.5 Maria T magnet and dedicated coil, multiplanar, multiecho imaging of the lumbar spine was performed without IV contrast. FINDINGS: For purposes of numbering on this exam, the L5-S1 disc space is assigned to axial image 21 of 25 of the lower axial sequences. No lumbar spine fractures are present. There are postoperative findings consistent with L3-L5 decompression and fusion. A sacral decubitus ulcer is partially imaged. Marrow signal abnormality within the sacrum is most pronounced at the S4 level. This corresponds to a site of sclerosis on abdominal CT of April 12, 2024. No intracanalicular mass or fluid collection is present. The conus terminates at the T12-L1 level. This exam is mildly compromised by motion artifact. L1-2: There is moderate facet arthrosis. The central canal and neural foramen are patent. L2-3: There is disc bulge with severe facet arthrosis in extensive ligamentous hypertrophy. This results in severe central canal stenosis with patent AP diameter of the canal is 4.1 mm. This has progressed since MRI of June 08, 2021. There is moderate right and mild left neural foraminal stenosis. L3-4: There is no recurrent central canal stenosis. There is mild bilateral neural foraminal stenosis. L4-5: There is no recurrent central canal stenosis. Neural foramen are patent. L5-S1: Central canal is patent. There is mild bilateral neural foraminal stenosis. IMPRESSION: 1. Status post L3-L5 decompression and fusion. 2. Severe central canal stenosis at L2-L3 which is progressed since previous MRI. This is due to disc bulge with severe facet arthrosis and ligamentous hypertrophy. Otherwise, patent central canal. 3. Exam mildly compromised by motion artifact. 4. Redemonstration of a sacral decubitus ulcer with marrow signal abnormality within the visualized sacrum, as shown on prior CT. This favors chronic osteomyelitis. 5. Multilevel neural foraminal stenosis, as above. ACT 112: Negative or not required by law. Electronically signed by: Chao Connolly M.D. 07/16/2024 2:[address] 07/16/24 11:36 CT head/brain wo con CLINICAL HISTORY: 78 years-old Male with right LE weakness. Acute strokelike symptoms TECHNIQUE: Multiple axial CT images of the head were obtained without contrast. A dose lowering technique was utilized adhering to the principles of ALARA. CT DOSE: 625.8 mGy.cm COMPARISON: 01/15/2020 FINDINGS: No acute intracranial hemorrhage, midline shift, intra-axial mass, acute territorial ischemia or abnormal extra-axial collection. Involutional changes with progressively worsened white matter hypodensities suggestive of probable chronic microvascular ischemic disease. 8 mm hyperdense focus within the third ventricle on image 16 series 2 previously measured 6 mm. Ventriculomegaly has progressed from prior, transverse dimension of the lateral ventricles measuring 4.3 cm, previously 3.8 cm. The calvarium is intact. The paranasal sinuses, mastoid air cells, and middle ear cavities are clear. IMPRESSION: 1. No acute intracranial hemorrhage, midline shift, or acute territorial infarct. 2. Involutional changes with chronic microvascular ischemic disease, progressed from the 01/15/2020 study. 3. 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 4. Ventriculomegaly is likely on an ex vacuo basis. Hydrocephalus considered less likely. ACT 112: Negative or not required by law. The above report was generated using voice recognition software. It may contain grammatical, syntax or spelling errors. Electronically signed by: Stan Lui M.D. 07/16/2024 1:23 PM L Brain MRI 07/16/24 13:59 Exam(s): MRI HEAD Without Contrast EXAM: MR Head Without Intravenous Contrast CLINICAL HISTORY: Reason for exam: new 3rd venttricle cyst. TECHNIQUE: Magnetic resonance images of the head/brain without intravenous contrast in multiple planes. COMPARISON: Prior head CT from July 16, 2024. FINDINGS: Brain: There is a small colloid cyst proximal third ventricle measuring 8.6 x 6.6 x 5.1 mm.. Advanced stenosis of bilateral changes. The flow voids at the base of the brain are intact. No mass. No hemorrhage. No acute infarct. Ventricles: Mild ventriculomegaly. Bones/joints: Unremarkable. No acute fracture. Sinuses: Chronic left sphenoid and ethmoid sinusitis. No acute sinusitis. Mastoid air cells: Unremarkable as visualized. No mastoid effusion. Orbits: Bilateral lens replacements. IMPRESSION: No evidence of acute intracranial pathology. 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 Advanced nonspecific white matter changes. Electronically signed by: Nancie Winston MD 07/16/24 22:27 PM PG Care Time/CCT Total # of Minutes Spent Total Time Spent with Patient: Total time spent is greater than 50% in coordination of care (as documented) at patient's floor/unit and/or counseling patient:40 minutes Coding Level of Care Code 88607 SUB INP/OBS CARE 2/35MIN Diagnoses Weakness generalized R53.1 Neuropathic pain M79.2 Pneumonia J18.9 Laterality: right Lung location: middle lobe of lung Pneumonia type: due to unspecified organism ESRD (end stage renal disease) on dialysis N18.6; Z99.2 Elevated troponin R79.89 Sacral decubitus ulcer, stage IV L89.154 Permanent atrial fibrillation I48.2 Atrial fibrillation type: permanent History of CHF (congestive heart failure) Z86.79 Time Spent (min) 40 (3) Pneumonia Laterality: right Lung location: middle lobe of lung Pneumonia type: due to unspecified organism Qualified Code(s): J18.9 - Pneumonia, unspecified organism (7) Atrial fibrillation Atrial fibrillation type: permanent Qualified Code(s): I48.2 - Chronic atrial fibrillation
[2024-07-18 08:30] LABS: Basophils # (auto) 0.04 K/uL (0.00-0.20); Basophils % (auto) 0.7 %; Eosinophils # (auto) 0.39 K/uL (0.00-0.50); Eosinophils % (auto) 7.1 %; Hematocrit (blood only) 28.7 % (42.0-52.0); Hemoglobin 9.3 g/dl (14.0-18.0); Immature Granulocytes # (auto) 0.03 K/uL (0.01-0.20); Immature Granulocytes % (auto) 0.5 %; Lymphocytes # (auto) 0.65 K/uL (1.20-3.40); Lymphocytes % (auto) 11.8 %; Mean Corpuscular Hgb Conc 32.4 g/dL (32.0-36.0); Mean Corpuscular Volume 98.6 fL (80.0-100.0); Mean Platelet Volume 9.3 fL (9.4-12.4); Monocytes # (auto) 0.45 K/uL (0.11-0.59); Monocytes % (auto) 8.2 %; Neutrophils # (auto) 3.95 K/uL (1.40-6.50); Neutrophils % (auto) 71.7 %; Platelet Count 145 K/uL (130-400); RDW Coefficient of Variation 16.1 % (11.5-14.5); RDW Standard Deviation 57.4 fL (36.4-46.3); Red Blood Count 2.91 M/uL (4.70-6.10); White Blood Count 5.51 K/ul (4.8-10.8)
[2024-07-18 09:14] LABS: BUN Creatinine Ratio 8.6 (10-20); Calcium 8.7 mg/dl (8.6-10.3); Creatinine Clr Calc Pharmacy 16.6 ml/min; Potassium 3.8 mmol/L (3.5-5.1)
--- NOTE | 2024-07-18 11:46 | Nephrology Progress Note ---
Date of Service July 18, 2024 Assessment & Plan (1) ESRD (end stage renal disease) on dialysis: (2) Anemia: (3) Weakness generalized: (4) Pulmonary edema: (5) Sacral decubitus ulcer, stage IV: (6) Ambulatory dysfunction: Plan 78-year-old gentleman with end-stage kidney disease on hemodialysis, Friday, , Friday via left brachiocephalic AV fistula. Admitted with ambulatory dysfunction and pneumonia. 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 Respiratory status acceptable Electrolyte acceptable. Tolerating HD, BP stable. -- on hemodialysis as his regular schedule. -- Continue on Nephrocaps and phosphate binder -- Epogen 10,000 units with dialysis today -- Left arm nephrology precaution, dose medications for eGFR less than 10 Admission and Anticipated Discharge Date Admission Date: July 16, 2024 Subjective Sylvester was seen and evaluated during HD this morning. Tolerating HD, blood pressure, volume status, electrolyte acceptable. Review of Systems Review of Systems: Detailed review of system was done and pertinent positives and negatives are mentioned above. Physical Exam Constitutional: WD/WN, vitals as above + ill appearing; no acute distress Eyes: + anicteric sclerae Respiratory: no respiratory distress Auscultation: lungs clear to auscultation bilaterally Cardiovascular: RRR, no murmur, no edema Skin: + turgor decreased, + ulcer and + skin a trophy Psychiatric: Orientation: alert and oriented x 3 Affect: euthymic affect Results & Data Vital Signs (Past 12 Hours) Vital Signs Temp Pulse Pulse Pulse Resp BP BP 07/18/24 11:30 83 112/74 07/18/24 11:00 73 104/80 07/18/24 10:30 80 114/80 07/18/24 10:00 65 110/79 07/18/24 09:30 69 109/80 07/18/24 09:11 36.5 C 98 H 07/18/24 07:17 36.6 C 81 18 138/79 Pulse Ox O2 Del Method 07/18/24 11:30 07/18/24 11:00 07/18/24 10:30 07/18/24 10:00 07/18/24 09:30 07/18/24 09:11 07/18/24 07:17 96 Room Air PG Care Time/CCT Total # of Minutes Spent Total Time Spent with Patient: Total time spent is greater than 50% in coordination of care (as documented) at patient's floor/unit and/or counseling patient: Coding Level of Care Code 04047 SUB INP/OBS CARE 2/35MIN Diagnoses ESRD (end stage renal disease) on dialysis N18.6; Z99.2 Anemia D64.9 Anemia type: unspecified type Weakness generalized R53.1 Pulmonary edema J81.1 Sacral decubitus ulcer, stage IV L89.154 Ambulatory dysfunction R26.2 (2) Anemia Anemia type: unspecified type Qualified Code(s): D64.9 - Anemia, unspecified
[2024-07-18] MEDS: EPOETIN ALFA 10,000 UNITS/ML VIAL IV STA (11:53)
[2024-07-18] MEDS: fentaNYL 25 MCG/HR TDSY TD SCH (17:00)
--- NOTE | 2024-07-18 17:10 | Hospitalist Progress Note ---
Date of Service July 18, 2024 Assessment & Plan (1) Weakness generalized: Plan: Was just discharged from [facility] 07/14/24 and patient reports difficulty transferring from bed to wheelchair at home Inability to care for self at home. is not able to safely care for him at this time per patient report wheelchair dependent fall and aspiration precautions PT/OT consulted Case management consulted; patient would like to return back to [facility] (2) Neuropathic pain: Plan: spinal ischemia, neurogenic, paraplegia Patient states he has a cyst at L1/L2 region Has chronic left hip pain/tingling Has new acute right leg pain/numbness that began 07/13; waxes and wanes Lumbar MRI with progressive changes but no change in central canal. Severe arthrosis at the facets. PT/OT ordered. 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 Harris - Recommending brain MRI with and without contrast, discussed end-stage renal disease. Brain MRI wo contrast with no evidence of acute intracranial pathology. Advanced nonspecific white matter changes. 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 - no need for formal consult at this time as no management necessary, likely incidental finding continue gabapentin and fentanyl patch associated weakness - see above (3) Pneumonia: Plan: failed outpatient levofloxacin x7d at [facility] Patient with continued symptoms of cough with clear sputum and dyspnea at rest, along with fatigue does have history of MRSA positive urine CXR showing R>L pleural effusions with atelectasis versus pneumonia, cardiomegaly with pulmonary edema Biofire negative no leukocytosis, VSS, non-hypoxic procal elevated at 0.82 will start cefepime (renally dosed for CrCl 15.7) and azithromycin for atypical coverage sputum culture ordered, not collected Most likely atelectasis. Will follow serial CRPs and possibly de-escalate or discontinue antibiotics tomorrow Encourage incentive spirometry (4) ESRD (end stage renal disease) on dialysis: Plan: history of end-stage renal disease on dialysis Friday, Friday, Friday Renal function stable on admission, baseline Nephrology consulted. Appreciate Dr. Cano's input Dialysis Friday Midodrine pre dialysis Dialysis diet Continue Sevelmar and Triphrocaps Strict I&O's (5) Sacral decubitus ulcer, stage IV: Plan: known/chronic history of Patient unable to have neurosurgical intervention on lumbar assist due to sacral ulcer Wound care consulted -will order Aquacel Ag with dressing changes twice daily pending evaluation by wound care Reposition per protocol as patient has difficulty repositioning himself (6) Atrial fibrillation: Plan: history of permanent A-fib - EKG on admission showed a fib RVR, rate 101 -> now trending downward in low 90s - telemetry showing continued a fib - recent TSH WNL - Anticoagulated with Eliquis 2.5 mg BID; renally dosed - continue - continue metoprolol (7) History of CHF (congestive heart failure): Plan: history of HFpEF Last echocardiogram on 04/08/24 showing mild LVH, EF 55 to 60%, moderate aortic stenosis, mild mitral regurg CXR showing cardiomegaly with pulmonary edema volume status will be managed with hemodialysis Strict I&O monitoring Daily weights Plan Ordered PT OT Chronic stable diagnoses: WEI - cpap ordered HS anemia of chronic disease - stable neurogenic bladder -chronic Perry catheter in place HLD - continue statin Anxiety/depression - continue mirtazapine and alprazolam prn Ostomy status VTE ppx: Continue Eliquis CODE STATUS: Full code Dispo: med surg; to have dialysis M-W-F, anticipated placement to [facility] Admission and Anticipated Discharge Date Admission Date: July 16, 2024 Supervising Physician Co-Signing Physician Notes Chart reviewed and case discussed with Yaquelin CARMONA, as above. ?pneumonia real or not - follow inflammatory markers consider at least de-escalation of cefepime to ceftriaxone if not outright cessation of abx and follow closely Subjective Patient seen and evaluated at bedside during his dialysis treatment. He reports feeling generally weak. He reports that he continues to have some productive cough, but notes this is clear sputum and has decreased in frequency. He denies any other complaints or concerns at this time. Physical Exam Physical Exam: General: No acute distress, nondiaphoretic, well-developed, well-nourished. Skin: The skin was without rashes, erythema, edema, or bruising. Cardiac: Irregularly irregular in the 80s without murmurs gallops or rubs. Pulm: Decreased breath sounds at bases bilaterally but otherwise clear to auscultation. No wheezing, rales, rhonchi. No respiratory distress. 96% on room air. Abdominal: Soft, nontender, nondistended. Bowel sounds present. Neuro: A&O x3. No focal neurological deficits. Results & Data Results & Data Vital Signs (Past 12 Hours) Vital Signs Temp Pulse Pulse Pulse Resp BP BP 07/18/24 13:45 97.5 F L 87 18 128/81 07/18/24 13:00 97.3 F L 81 127/79 07/18/24 12:30 81 122/90 07/18/24 12:00 95 H 127/91 07/18/24 11:30 83 112/74 07/18/24 11:00 73 104/80 07/18/24 10:30 80 114/80 07/18/24 10:00 65 110/79 07/18/24 09:30 69 109/80 07/18/24 09:11 97.7 F 98 H 07/18/24 07:17 97.9 F 81 18 138/79 Pulse Ox O2 Del Method 07/18/24 13:45 96 Room Air 07/18/24 13:00 07/18/24 12:30 07/18/24 12:00 07/18/24 11:30 07/18/24 11:00 07/18/24 10:30 07/18/24 10:00 07/18/24 09:30 07/18/24 09:11 07/18/24 07:17 96 Room Air Laboratory Results Reviewed CBC Reviewed BMP PG Care Time/CCT Total # of Minutes Spent Total Time Spent with Patient: Total time spent is greater than 50% in coordination of care (as documented) at patient's floor/unit and/or counseling patient: Coding Level of Care Code 25295 SUB INP/OBS CARE 2/35MIN Diagnoses Weakness generalized R53.1 Neuropathic pain M79.2 Pneumonia J18.9 Laterality: right Lung location: middle lobe of lung Pneumonia type: due to unspecified organism ESRD (end stage renal disease) on dialysis N18.6; Z99.2 Sacral decubitus ulcer, stage IV L89.154 Permanent atrial fibrillation I48.2 Atrial fibrillation type: permanent History of CHF (congestive heart failure) Z86.79 (3) Pneumonia Laterality: right Lung location: middle lobe of lung Pneumonia type: due to unspecified organism Qualified Code(s): J18.9 - Pneumonia, unspecified organism (6) Atrial fibrillation Atrial fibrillation type: permanent Qualified Code(s): I48.2 - Chronic atrial fibrillation
[2024-07-18 17:29] LABS: C Reactive Protein 5.87 mg/dl (0-0.5)
[2024-07-19 07:18] LABS: Hematocrit (blood only) 28.2 % (42.0-52.0); Hemoglobin 8.9 g/dl (14.0-18.0); Mean Corpuscular Hemoglobin 31.3 pg (25.0-34.0); Mean Corpuscular Hgb Conc 31.6 g/dL (32.0-36.0); Mean Corpuscular Volume 99.3 fL (80.0-100.0); Mean Platelet Volume 9.6 fL (9.4-12.4); Platelet Count 150 K/uL (130-400); RDW Coefficient of Variation 16.5 % (11.5-14.5); RDW Standard Deviation 58.5 fL (36.4-46.3); Red Blood Count 2.84 M/uL (4.70-6.10)
[2024-07-19 07:27] LABS: C Reactive Protein 4.03 mg/dl (0-0.5); Calcium 8.7 mg/dl (8.6-10.3); Creatinine Clr Calc Pharmacy 20.4 ml/min; Potassium 3.6 mmol/L (3.5-5.1)
--- NOTE | 2024-07-19 10:35 | Nephrology Progress Note ---
Date of Service July 19, 2024 Assessment & Plan (1) ESRD (end stage renal disease) on dialysis: (2) Anemia: (3) Weakness generalized: (4) Pulmonary edema: (5) Sacral decubitus ulcer, stage IV: (6) Ambulatory dysfunction: Plan 78-year-old gentleman with end-stage kidney disease on hemodialysis, Friday, , Friday via left brachiocephalic AV fistula. Admitted with ambulatory dysfunction and pneumonia. 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 Respiratory status acceptable Electrolyte acceptable. Had HD yesterday, BP stable. -- Continue on Nephrocaps and phosphate binder -- Epogen 10,000 units with dialysis yesterday -- Left arm nephrology precaution, dose medications for eGFR less than 10 --waiting on DC to [place] [facility]. Admission and Anticipated Discharge Date Admission Date: July 16, 2024 Marzena Phan was seen and evaluated at bedside this morning. He reports feeling well, denies any other complaints or concerns at this time. Had HD yesterday. Review of Systems Review of Systems: Detailed review of system was done and pertinent positives and negatives are mentioned above. Physical Exam Constitutional: WD/WN, vitals as above + ill appearing; no acute distress Eyes: + anicteric sclerae Respiratory: no respiratory distress Auscultation: lungs clear to auscultation bilaterally Cardiovascular: RRR, no murmur, no edema Skin: + turgor decreased, + ulcer and + skin a trophy Psychiatric: Orientation: alert and oriented x 3 Affect: euthymic affect Results & Data Vital Signs (Past 12 Hours) Vital Signs Temp Pulse Resp BP Pulse Ox O2 Del Method 07/19/24 07:37 36.4 C L 82 16 138/78 95 Room Air 07/19/24 07:30 Room Air, CPAP PG Care Time/CCT Total # of Minutes Spent Total Time Spent with Patient: Total time spent is greater than 50% in coordination of care (as documented) at patient's floor/unit and/or counseling patient: Coding Level of Care Code 24845 SUB INP/OBS CARE 2/35MIN Diagnoses ESRD (end stage renal disease) on dialysis N18.6; Z99.2 Anemia D64.9 Anemia type: unspecified type Weakness generalized R53.1 Pulmonary edema J81.1 Sacral decubitus ulcer, stage IV L89.154 Ambulatory dysfunction R26.2 (2) Anemia Anemia type: unspecified type Qualified Code(s): D64.9 - Anemia, unspecified
--- NOTE | 2024-07-19 12:36 | Hospitalist Progress Note ---
Date of Service July 19, 2024 Assessment & Plan (1) Weakness generalized: Plan: Was just discharged from [facility] 07/14/24 and patient reports difficulty transferring from bed to wheelchair at home - Inability to care for self at home. is not able to safely care for him at this time per patient report - Wheelchair dependent at baseline - Continue fall and aspiration precautions - PT/OT recommending patient return to [facility] - Referral pending to [facility] (2) Neuropathic pain: Plan: Spinal ischemia, neurogenic, paraplegia. Patient states he has a cyst at L1/L2 region - Has chronic left hip pain/tingling - New acute right leg pain/numbness that began 07/13; waxes and wanes - Lumbar MRI with progressive changes but no change in central canal. Severe arthrosis at the facets. 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 Not seen on previous CT from 2019 - Discussed with on-call neurologist Dr. Harris - Recommending brain MRI with and without contrast, discussed end-stage renal disease - Brain MRI wo contrast with no evidence of acute intracranial pathology. Advanced nonspecific white matter changes. 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 - No need for formal consult at this time as no management necessary, likely incidental finding - Continue gabapentin and fentanyl patch - Associated weakness - see above (3) Pneumonia: Plan: Completed recent course of levofloxacin x 7 days at [facility] for pneumonia - CXR on admission showed R>L pleural effusions with atelectasis versus pneumonia, cardiomegaly with pulmonary edema - BioFire negative, no leukocytosis, nonhypoxic - Was started on cefepime and azithromycin for atypical pneumonia coverage on admission - Discontinued antibiotics as low suspicion for active pneumonia - Monitor for fever, hypoxia, leukocytosis, or other indications to restart antibiotics - Encourage incentive spirometry (4) ESRD (end stage renal disease) on dialysis: Plan: History of end-stage renal disease on dialysis Friday, Friday, Friday - Nephrology consulted - Dialysis Friday - Midodrine pre dialysis - Dialysis diet - Continue Sevelmar and Triphrocaps - Strict I&O's (5) Sacral decubitus ulcer, stage IV: Plan: Chronic history of stage IV sacral decubitus ulcer - Patient unable to have neurosurgical intervention on lumbar assist due to sacral ulcer - Wound care consulted - will order Aquacel Ag with dressing changes twice daily pending evaluation by wound care - Reposition per protocol as patient has difficulty repositioning himself (6) Atrial fibrillation: Plan: History of permanent A-fib - Recent TSH WNL - Anticoagulated with Eliquis 2.5 mg BID; renally dosed - continue - Continue metoprolol (7) History of CHF (congestive heart failure): Plan: History of HFpEF - Last echocardiogram on 04/08/24 showing mild LVH, EF 55 to 60%, moderate aortic stenosis, mild mitral regurg - CXR showing cardiomegaly with pulmonary edema - Volume status will be managed with hemodialysis - Strict I&O monitoring - Daily weights Plan Discontinued antibiotics Chronic stable diagnoses: WEI - cpap ordered HS anemia of chronic disease - stable neurogenic bladder -chronic Perry catheter in place HLD - continue statin Anxiety/depression - continue mirtazapine and alprazolam prn Ostomy status VTE ppx: Continue Eliquis CODE STATUS: Full code Dispo: med surg; to have dialysis M-W-F, anticipated placement to [facility] Admission and Anticipated Discharge Date Admission Date: July 16, 2024 Subjective Patient seen and evaluated at bedside. He reports feeling well. He reports that he has sputum production at night, and states this is clear/white. He denies any recent fevers or chills. He denies any other respiratory symptoms. We discussed discontinuing his antibiotics as low suspicion for active pneumonia. No additional complaints or concerns at this time. Physical Exam Physical Exam: General: No acute distress, nondiaphoretic, well-developed, well-nourished. Skin: The skin was without rashes, erythema, edema, or bruising. Cardiac: Irregularly irregular in the 80s without murmurs gallops or rubs. Pulm: Decreased breath sounds at bases bilaterally but otherwise clear to auscultation. No wheezing, rales, rhonchi. No respiratory distress. 95% on room air. Abdominal: Soft, nontender, nondistended. Bowel sounds present. Neuro: A&O x3. No focal neurological deficits. Results & Data Results & Data Vital Signs (Past 12 Hours) Vital Signs Temp Pulse Resp BP Pulse Ox O2 Del Method 07/19/24 07:37 97.5 F L 82 16 138/78 95 Room Air 07/19/24 07:30 Room Air, CPAP Laboratory Results Reviewed CBC Reviewed BMP/chemistries PG Care Time/CCT Total # of Minutes Spent Total Time Spent with Patient: Total time spent is greater than 50% in coordination of care (as documented) at patient's floor/unit and/or counseling patient: Coding Level of Care Code 16160 SUB INP/OBS CARE 3/50MIN Diagnoses Weakness generalized R53.1 Neuropathic pain M79.2 Pneumonia J18.9 Laterality: right Lung location: middle lobe of lung Pneumonia type: due to unspecified organism ESRD (end stage renal disease) on dialysis N18.6; Z99.2 Sacral decubitus ulcer, stage IV L89.154 Permanent atrial fibrillation I48.2 Atrial fibrillation type: permanent History of CHF (congestive heart failure) Z86.79 (3) Pneumonia Laterality: right Lung location: middle lobe of lung Pneumonia type: due to unspecified organism Qualified Code(s): J18.9 - Pneumonia, unspecified organism (6) Atrial fibrillation Atrial fibrillation type: permanent Qualified Code(s): I48.2 - Chronic atrial fibrillation
[2024-07-20 07:57] LABS: Hematocrit (blood only) 27.9 % (42.0-52.0); Hemoglobin 8.8 g/dl (14.0-18.0); Mean Corpuscular Hemoglobin 31.4 pg (25.0-34.0); Mean Corpuscular Hgb Conc 31.5 g/dL (32.0-36.0); Mean Corpuscular Volume 99.6 fL (80.0-100.0); Mean Platelet Volume 9.3 fL (9.4-12.4); Platelet Count 149 K/uL (130-400); RDW Coefficient of Variation 16.4 % (11.5-14.5); RDW Standard Deviation 58.1 fL (36.4-46.3); White Blood Count 5.55 K/ul (4.8-10.8)
[2024-07-20 08:29] LABS: Calcium 8.8 mg/dl (8.6-10.3); Potassium 3.9 mmol/L (3.5-5.1)
[2024-07-20 08:35] LABS: BUN Creatinine Ratio 7.3 (10-20); C Reactive Protein 3.09 mg/dl (0-0.5); Creatinine Clr Calc Pharmacy 15.9 ml/min
--- NOTE | 2024-07-20 10:31 | Nephrology Progress Note ---
Date of Service July 20, 2024 Assessment & Plan (1) ESRD (end stage renal disease) on dialysis: (2) Anemia: (3) Weakness generalized: (4) Pulmonary edema: (5) Sacral decubitus ulcer, stage IV: (6) Ambulatory dysfunction: Plan 78-year-old gentleman with end-stage kidney disease on hemodialysis, Friday, , Friday via left brachiocephalic AV fistula. Admitted with ambulatory dysfunction and pneumonia. 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 Respiratory status acceptable Electrolyte acceptable. BP relatively low, asymptomatic. -- tolerating HD -- continue on Nephrocaps and phosphate binder -- Left arm nephrology precaution, dose medications for eGFR less than 10 --waiting on DC to [facility]. Admission and Anticipated Discharge Date Admission Date: July 16, 2024 Subjective Sylvester was seen and evaluated during HD this morning. He reports feeling well, tolerating HD, denies any other complaints or concerns at this time. BP relatively low but asymptomatic. Review of Systems Review of Systems: Detailed review of system was done and pertinent positives and negatives are mentioned above. Physical Exam Constitutional: WD/WN, vitals as above + ill appearing; no acute distress Eyes: + anicteric sclerae Respiratory: Auscultation: lungs clear to auscultation bilaterally Cardiovascular: RRR, no murmur, no edema Skin: + turgor decreased, + ulcer and + skin a trophy Psychiatric: Orientation: alert and oriented x 3 Affect: euthymic affect Results & Data Vital Signs (Past 12 Hours) Vital Signs Temp Pulse Pulse Pulse Resp BP BP 07/20/24 09:30 94 H 97/71 L 07/20/24 09:06 36.9 C 82 07/20/24 07:12 36.7 C 74 16 126/83 Pulse Ox O2 Del Method 07/20/24 09:30 07/20/24 09:06 07/20/24 07:12 97 Room Air PG Care Time/CCT Total # of Minutes Spent Total Time Spent with Patient: Total time spent is greater than 50% in coordination of care (as documented) at patient's floor/unit and/or counseling patient: Coding Level of Care Code 61431 SUB INP/OBS CARE 2/35MIN Diagnoses ESRD (end stage renal disease) on dialysis N18.6; Z99.2 Anemia D64.9 Anemia type: unspecified type Weakness generalized R53.1 Pulmonary edema J81.1 Sacral decubitus ulcer, stage IV L89.154 Ambulatory dysfunction R26.2 (2) Anemia Anemia type: unspecified type Qualified Code(s): D64.9 - Anemia, unspecified
--- NOTE | 2024-07-20 11:41 | Hospitalist Progress Note ---
Date of Service July 20, 2024 Assessment & Plan (1) Weakness generalized: Plan: Was just discharged from [facility] 07/14/24 and patient reports difficulty transferring from bed to wheelchair at home - Inability to care for self at home. is not able to safely care for him at this time per patient report - Wheelchair dependent at baseline - Continue fall and aspiration precautions - PT/OT recommending patient return to [facility] - Referral pending to [facility] (2) Neuropathic pain: Plan: Spinal ischemia, neurogenic, paraplegia. Patient states he has a cyst at L1/L2 region - Has chronic left hip pain/tingling - New acute right leg pain/numbness that began 07/13; waxes and wanes - Lumbar MRI with progressive changes but no change in central canal. Severe arthrosis at the facets. 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 Not seen on previous CT from 2019 - Discussed with on-call neurologist Dr. Harris - Recommending brain MRI with and without contrast, discussed end-stage renal disease - Brain MRI wo contrast with no evidence of acute intracranial pathology. Advanced nonspecific white matter changes. 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 - No need for formal consult at this time as no management necessary, likely incidental finding - Continue gabapentin and fentanyl patch - Associated weakness - see above (3) Pneumonia: Plan: Completed recent course of levofloxacin x 7 days at [facility] for pneumonia - CXR on admission showed R>L pleural effusions with atelectasis versus pneumonia, cardiomegaly with pulmonary edema - BioFire negative, no leukocytosis, nonhypoxic - Was started on cefepime and azithromycin for atypical pneumonia coverage on admission - Discontinued antibiotics as low suspicion for active pneumonia - CRP continues to downtrend while off antibiotics - Monitor for fever, hypoxia, leukocytosis, or other indications to restart antibiotics - Encourage incentive spirometry (4) ESRD (end stage renal disease) on dialysis: Plan: History of end-stage renal disease on dialysis Friday, Friday, Friday - Nephrology consulted - Dialysis Friday - Midodrine pre dialysis - Dialysis diet - Continue Sevelmar and Triphrocaps - Strict I&O's (5) Sacral decubitus ulcer, stage IV: Plan: Chronic history of stage IV sacral decubitus ulcer - Patient unable to have neurosurgical intervention on lumbar assist due to sacral ulcer - Wound care consulted - will order Aquacel Ag with dressing changes twice daily pending evaluation by wound care - Reposition per protocol as patient has difficulty repositioning himself (6) Atrial fibrillation: Plan: History of permanent A-fib - Recent TSH WNL - Anticoagulated with Eliquis 2.5 mg BID; renally dosed - continue - Continue metoprolol (7) History of CHF (congestive heart failure): Plan: History of HFpEF - Last echocardiogram on 04/08/24 showing mild LVH, EF 55 to 60%, moderate aortic stenosis, mild mitral regurg - CXR showing cardiomegaly with pulmonary edema - Volume status will be managed with hemodialysis - Strict I&O monitoring - Daily weights Plan Chronic stable diagnoses: WEI - cpap ordered HS anemia of chronic disease - stable neurogenic bladder -chronic Perry catheter in place HLD - continue statin Anxiety/depression - continue mirtazapine and alprazolam prn Ostomy status VTE ppx: Continue Eliquis CODE STATUS: Full code Dispo: med surg; to have dialysis M-W-F, anticipated placement to [facility] Admission and Anticipated Discharge Date Admission Date: July 16, 2024 Supervising Physician Co-Signing Physician Notes The patient was not seen by me. The chart was reviewed. Case discussed with BRIGIDO Nicholson. Agree with assessment and plan Subjective Patient seen and evaluated at bedside during his HD session. He denies exacerbated cough or shortness of breath. His only complaint at this time is being tired from his dialysis treatment. We discussed that it is unlikely for him to return to [facility] today or tomorrow given the holiday. He is understanding. No additional complaints or concerns at this time. Physical Exam Physical Exam: General: No acute distress, nondiaphoretic, well-developed, well-nourished. Skin: The skin was without rashes, erythema, edema, or bruising. Cardiac: Irregularly irregular in the 80s without murmurs gallops or rubs. Pulm: Decreased breath sounds at bases bilaterally but otherwise clear to auscultation. No wheezing, rales, rhonchi. No respiratory distress. 97% on room air. Abdominal: Soft, nontender, nondistended. Bowel sounds present. Neuro: A&O x3. No focal neurological deficits. Results & Data Results & Data Vital Signs (Past 12 Hours) Vital Signs Temp Pulse Pulse Pulse Resp BP BP 07/20/24 11:30 75 97/71 L 07/20/24 11:00 78 110/72 07/20/24 10:30 76 92/59 L 07/20/24 10:00 77 94/61 L 07/20/24 09:30 94 H 97/71 L 07/20/24 09:06 98.4 F 82 07/20/24 07:12 98.1 F 74 16 126/83 Pulse Ox O2 Del Method 07/20/24 11:30 07/20/24 11:00 07/20/24 10:30 07/20/24 10:00 07/20/24 09:30 07/20/24 09:06 07/20/24 07:12 97 Room Air Laboratory Results Reviewed CBC Reviewed chemistries PG Care Time/CCT Total # of Minutes Spent Total Time Spent with Patient: Total time spent is greater than 50% in coordination of care (as documented) at patient's floor/unit and/or counseling patient: Coding Level of Care Code 14920 SUB INP/OBS CARE 2/35MIN Diagnoses Weakness generalized R53.1 Neuropathic pain M79.2 Pneumonia J18.9 Laterality: right Lung location: middle lobe of lung Pneumonia type: due to unspecified organism ESRD (end stage renal disease) on dialysis N18.6; Z99.2 Sacral decubitus ulcer, stage IV L89.154 Permanent atrial fibrillation I48.2 Atrial fibrillation type: permanent History of CHF (congestive heart failure) Z86.79 (3) Pneumonia Laterality: right Lung location: middle lobe of lung Pneumonia type: due to unspecified organism Qualified Code(s): J18.9 - Pneumonia, unspecified organism (6) Atrial fibrillation Atrial fibrillation type: permanent Qualified Code(s): I48.2 - Chronic atrial fibrillation
[2024-07-20] MEDS: EPOETIN ALFA 10,000 UNITS/ML VIAL IV STA (14:28)
[2024-07-21 06:36] LABS: Hematocrit (blood only) 27.6 % (42.0-52.0); Hemoglobin 8.8 g/dl (14.0-18.0); Mean Corpuscular Hemoglobin 31.9 pg (25.0-34.0); Mean Corpuscular Hgb Conc 31.9 g/dL (32.0-36.0); Mean Platelet Volume 9.4 fL (9.4-12.4); Platelet Count 146 K/uL (130-400); RDW Coefficient of Variation 16.9 % (11.5-14.5); RDW Standard Deviation 60.1 fL (36.4-46.3); Red Blood Count 2.76 M/uL (4.70-6.10); White Blood Count 4.81 K/ul (4.8-10.8)
--- NOTE | 2024-07-21 11:03 | Hospitalist Progress Note ---
Date of Service July 21, 2024 Assessment & Plan (1) Weakness generalized: Plan: Was just discharged from [facility] 07/14/24 and patient reports difficulty transferring from bed to wheelchair at home - Inability to care for self at home. is not able to safely care for him at this time per patient report - Wheelchair dependent at baseline - Continue fall and aspiration precautions - PT/OT recommending patient return to [facility] - Referral pending to [facility] (2) Neuropathic pain: Plan: Spinal ischemia, neurogenic, paraplegia. Patient states he has a cyst at L1/L2 region - Has chronic left hip pain/tingling - New acute right leg pain/numbness that began 07/13; waxes and wanes - Lumbar MRI with progressive changes but no change in central canal. Severe arthrosis at the facets. 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 Not seen on previous CT from 2019 - Discussed with on-call neurologist Dr. Harris - Recommending brain MRI with and without contrast, discussed end-stage renal disease - Brain MRI wo contrast with no evidence of acute intracranial pathology. Advanced nonspecific white matter changes. 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 - No need for formal consult at this time as no management necessary, likely incidental finding - Continue gabapentin and fentanyl patch - Associated weakness - see above (3) Pneumonia: Plan: Completed recent course of levofloxacin x 7 days at [facility] for pneumonia - CXR on admission showed R>L pleural effusions with atelectasis versus pneumonia, cardiomegaly with pulmonary edema - BioFire negative, no leukocytosis, nonhypoxic - Was started on cefepime and azithromycin for atypical pneumonia coverage on admission - Discontinued antibiotics as low suspicion for active pneumonia - CRP continues to downtrend while off antibiotics - Monitor for fever, hypoxia, leukocytosis, or other indications to restart antibiotics - Encourage incentive spirometry (4) ESRD (end stage renal disease) on dialysis: Plan: History of end-stage renal disease on dialysis Friday, Friday, Friday - Nephrology consulted - Dialysis Friday - Midodrine pre dialysis - Continue Sevelmar and Triphrocaps - Strict I&O's - Iron WNL, high ferritin but acute phase reactant (5) Sacral decubitus ulcer, stage IV: Plan: Chronic history of stage IV sacral decubitus ulcer - Patient unable to have neurosurgical intervention on lumbar assist due to sacral ulcer - Wound care consulted, follow recommendations provided - Reposition per protocol as patient has difficulty repositioning himself (6) History of CHF (congestive heart failure): Plan: History of HFpEF - Last echocardiogram on 04/08/24 showing mild LVH, EF 55 to 60%, moderate aortic stenosis, mild mitral regurg - CXR showing cardiomegaly with pulmonary edema - Volume status will be managed with hemodialysis - Strict I&O monitoring - Daily weights Plan Chronic stable diagnoses: * WEI - cpap ordered HS * Anemia of chronic disease - stable * Neurogenic bladder - chronic Perry catheter in place * HLD - continue statin * A fib - continue Eliquis, metoprolol * Anxiety/depression - continue mirtazapine and alprazolam prn * Ostomy status VTE ppx: Continue Eliquis CODE STATUS: Full code Dispo: anticipated placement to [facility] Admission and Anticipated Discharge Date Admission Date: July 16, 2024 Supervising Physician Co-Signing Physician Notes The patient was not seen by me. The chart was reviewed. Case discussed with BRIGIDO Nicholson. Agree with assessment and plan Subjective Patient seen and evaluated at bedside. He reports feeling well, denies any acute complaints or concerns. Still waiting to hear back from [facility]. Physical Exam Physical Exam: General: No acute distress, nondiaphoretic, well-developed, well-nourished. Skin: The skin was without rashes, erythema, edema, or bruising. Cardiac: Irregularly irregular in the 80s without murmurs gallops or rubs. Pulm: Decreased breath sounds at bases bilaterally but otherwise clear to auscultation. No wheezing, rales, rhonchi. No respiratory distress. 96% on room air. Abdominal: Soft, nontender, nondistended. Bowel sounds present. Neuro: A&O x3. No focal neurological deficits. Results & Data Results & Data Vital Signs (Past 12 Hours) Vital Signs Temp Pulse Resp BP Pulse Ox O2 Del Method 07/21/24 07:27 98.1 F 76 18 132/81 96 Room Air Laboratory Results Reviewed CBC Reviewed iron panel - iron WNL, high ferritin but acute phase reactant PG Care Time/CCT Total # of Minutes Spent Total Time Spent with Patient: Total time spent is greater than 50% in coordination of care (as documented) at patient's floor/unit and/or counseling patient: Coding Level of Care Code 65348 SUB INP/OBS CARE 2/35MIN Diagnoses Weakness generalized R53.1 Neuropathic pain M79.2 Pneumonia J18.9 Laterality: right Lung location: middle lobe of lung Pneumonia type: due to unspecified organism ESRD (end stage renal disease) on dialysis N18.6; Z99.2 Sacral decubitus ulcer, stage IV L89.154 History of CHF (congestive heart failure) Z86.79 (3) Pneumonia Laterality: right Lung location: middle lobe of lung Pneumonia type: due to unspecified organism Qualified Code(s): J18.9 - Pneumonia, unspecified organism
--- NOTE | 2024-07-21 11:14 | Nephrology Progress Note ---
Date of Service July 21, 2024 Assessment & Plan (1) ESRD (end stage renal disease) on dialysis: (2) Anemia: (3) Weakness generalized: (4) Pulmonary edema: (5) Sacral decubitus ulcer, stage IV: (6) Ambulatory dysfunction: Plan 78-year-old gentleman with end-stage kidney disease on hemodialysis, Friday, , Friday via left brachiocephalic AV fistula. Admitted with ambulatory dysfunction and pneumonia. 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 Respiratory status acceptable Electrolyte acceptable. BP acceptable. --Next dialysis Friday --continue on Nephrocaps and phosphate binder --Left arm nephrology precaution, dose medications for eGFR less than 10 --waiting on Discharge to [facility]. Admission and Anticipated Discharge Date Admission Date: July 16, 2024 Subjective Sylvester was seen and evaluated during HD this morning. He reports feeling well, tolerating HD, denies any other complaints or concerns at this time. BP relatively low but asymptomatic. Review of Systems Review of Systems: Detailed review of system was done and pertinent positives and negatives are mentioned above. Physical Exam Constitutional: WD/WN, vitals as above + ill appearing; no acute distress Eyes: + anicteric sclerae Respiratory: Auscultation: lungs clear to auscultation bilaterally Cardiovascular: RRR, no murmur, no edema Skin: + turgor decreased, + ulcer and + skin a trophy Psychiatric: Orientation: alert and oriented x 3 Affect: euthymic affect Results & Data Vital Signs (Past 12 Hours) Vital Signs Temp Pulse Resp BP Pulse Ox O2 Del Method 07/21/24 07:27 36.7 C 76 18 132/81 96 Room Air PG Care Time/CCT Total # of Minutes Spent Total Time Spent with Patient: Total time spent is greater than 50% in coordination of care (as documented) at patient's floor/unit and/or counseling patient: Coding Level of Care Code 87369 SUB INP/OBS CARE 2/35MIN Diagnoses ESRD (end stage renal disease) on dialysis N18.6; Z99.2 Anemia D64.9 Anemia type: unspecified type Weakness generalized R53.1 Pulmonary edema J81.1 Sacral decubitus ulcer, stage IV L89.154 Ambulatory dysfunction R26.2 (2) Anemia Anemia type: unspecified type Qualified Code(s): D64.9 - Anemia, unspecified
[2024-07-22 08:10] LABS: BUN Creatinine Ratio 7.8 (10-20); Creatinine Clr Calc Pharmacy 15.7 ml/min; Potassium 4.2 mmol/L (3.5-5.1)
--- NOTE | 2024-07-22 08:58 | Hospitalist Progress Note ---
Date of Service July 22, 2024 Assessment & Plan (1) Weakness generalized: Plan: Was just discharged from [facility] 07/14/24 and patient reports difficulty transferring from bed to wheelchair at home Inability to care for self at home. is not able to safely care for him at this time per patient report Wheelchair dependent at baseline Continue fall and aspiration precautions Was given Cefepime initially for suspected bacterial PNA, but was discontinued on 07/21 and recently completed course [facility]OT recommending patient return to [facility]-- Referral pending to [facility], CM following as no back up provided but unsafe to return home at present given unable to care for himself. Per CM, [facility] prior offered producer and patient declined. Will need f/u discussion (2) Neuropathic pain: Plan: Spinal ischemia, neurogenic, paraplegia. Patient states he has a cyst at L1/L2 region Has chronic left hip pain/tingling (reports from his back cyst in lumbar region) Reported NEW acute right leg pain/numbness on 07/13 and lumbar spine MRI obtained which did show progressive changes but no change in central canal. ?if neuropathy worsened with recent FLQ use for pneumonia CT head without acute CVA but noted 8mm colloid cyst of third ventricle, ventriculomegaly likely on ex-vacuo basis, hydrocephalus likes likely. Not seen on previous CT from 2019 Discussed with on-call neurologist Dr. Harris - Recommending brain MRI with and without contrast, discussed end-stage renal disease Brain MRI wo contrast with no evidence of acute intracranial pathology. Advanced nonspecific white matter changes. 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 - No need for formal consult at this time as no management necessary, likely incidental finding - Continue gabapentin and fentanyl patch, waiting for rehab as above (3) Pneumonia: Plan: Completed recent course of levofloxacin x 7 days at [facility] for pneumonia CXR on admission showed R>L pleural effusions with atelectasis versus pneumonia, cardiomegaly with pulmonary edema BioFire negative, no leukocytosis, nonhypoxic Was provided cefepime/Azithryomycin on admission for atypical penumonia coverage however was DISCONTINUED 07/21 as low suspicion for active pneumonia CRP continued to downtrend while off antibiotics Remains OFF abx at this time, no leukocytosis/fever however did appear with possible UTI vs contaminant and urine cx recommended REPEAT collection --> RN to change crowe given such, will send for new sample but defer abx for now HD for tx CHF Continue incentive spirometer, 96% on RA (4) ESRD (end stage renal disease) on dialysis: Plan: History of end-stage renal disease on dialysis Friday, Friday, Friday Nephrology consulted, HD on MWF Midodrine 5mg PO pre dialysis --consider changing to scheduled MWF but has instruction to give 30min prior to HD but does not appear to have been provided on 07/20 - Continue Sevelmar and Triphrocaps - Diet changed from renal diet per nephrology/patient req and K/renal function stable - Iron WNL, high ferritin but acute phase reactant (5) Sacral decubitus ulcer, stage IV: Plan: Chronic history of stage IV sacral decubitus ulcer - Patient unable to have neurosurgical intervention on lumbar assist due to sacral ulcer - Wound care consulted, follow recommendations provided - Reposition per protocol as patient has difficulty repositioning himself (6) History of CHF (congestive heart failure): Plan: History of HFpEF Last echocardiogram on 04/08/24 showing mild LVH, EF 55 to 60%, moderate aortic stenosis, mild mitral regurg CXR showing cardiomegaly with pulmonary edema Volume status will be managed with hemodialysis (2L UF on 07/20) Strict I&O monitoring Daily weights Plan Chronic stable diagnoses: * WEI - cpap ordered HS * Anemia of chronic disease - stable * Neurogenic bladder - chronic Crowe catheter in place, nursing to exchange and will plan for repeat UA/cx if indicated (notable had been on cefepime up til yesterday) * HLD - continue statin * A fib - continue Eliquis, metoprolol * Anxiety/depression - continue mirtazapine and alprazolam prn * Ostomy status VTE ppx: Continue Eliquis CODE STATUS: Full code Dispo: anticipated placement to [facility] however may need back up options pending final determination given patient declined LTC previously. CM to follow Admission and Anticipated Discharge Date Admission Date: July 16, 2024 Supervising Physician Co-Signing Physician Notes The patient was not seen by me. The chart was reviewed. Case discussed with BRIGIDO Saleh. Agree with assessment and plan Subjective EVal this morning, sitting up in bed. No acute distress. Reports improvement in appetite and was given "regular diet today". No significant pain reported/need for medication. Waiting for determination from [facility] for rehab [place] No fever/chills, chest pain, abdominal pain, nausea/vomiting. Discussed tx for UTI, catheter in place. Patient reports last changed 3 weeks ago -- > will confirm with nursing as told was changed in ER but if not changed, will need changed. Questions/concerns addressed at this time. Physical Exam 2 Physical Exam: General: 78yo male, chronically ill appearing but sitting up in bed fixing his glasses, reports no acute distress, happy about change to his diet HEENT: head atraumatic, normocephalic, mmm, trachea midline Resp: even/unlabored, diminished in the bases, no cough/wheezing, remains on ROOM AIR CV: irregularly irregular, rates 70-80s, systolic murmur, trace-1+ bilaterally LE edema but pulses present GI: +BS, soft/NT, ostomy intact and functioning MSK/Neuro: moves all extremities but nonfocal, decreased LLE dorsiflexion/plantar flexion reported at baseline due to cyst in his lumbar spine : catheter in place, yellow urine draining Psych: AOx3, cooperative with exam Results & Data Results & Data Vital Signs (Past 12 Hours) Vital Signs Temp Pulse Resp BP Pulse Ox O2 Del Method 07/22/24 08:09 36.7 C 89 18 151/72 H 97 Room Air Laboratory Results 07/21/24 06:06 07/22/24 07:25 PG Care Time/CCT Total # of Minutes Spent Total Time Spent with Patient: Total time spent is greater than 50% in coordination of care (as documented) at patient's floor/unit and/or counseling patient: Coding Level of Care Code 60218 SUB INP/OBS CARE 2/35MIN Diagnoses Weakness generalized R53.1 Neuropathic pain M79.2 Pneumonia J18.9 Laterality: right Lung location: middle lobe of lung Pneumonia type: due to unspecified organism ESRD (end stage renal disease) on dialysis N18.6; Z99.2 Sacral decubitus ulcer, stage IV L89.154 History of CHF (congestive heart failure) Z86.79 (3) Pneumonia Laterality: right Lung location: middle lobe of lung Pneumonia type: due to unspecified organism Qualified Code(s): J18.9 - Pneumonia, unspecified organism
--- NOTE | 2024-07-22 11:06 | Nephrology Progress Note ---
Date of Service July 22, 2024 Assessment & Plan (1) ESRD (end stage renal disease) on dialysis: (2) Anemia: (3) Weakness generalized: (4) Pulmonary edema: (5) Sacral decubitus ulcer, stage IV: (6) Ambulatory dysfunction: Plan 78-year-old gentleman with end-stage kidney disease on hemodialysis, Friday, , Friday via left brachiocephalic AV fistula. Admitted with ambulatory dysfunction and pneumonia. 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 Respiratory status acceptable Electrolyte acceptable. BP acceptable. -- Change diet to heart healthy diet, no need to restrict potassium or phosphorus at this time as he has been finding it very difficult to choose anything to eat with those restriction. --next dialysis Friday --continue on Nephrocaps --Left arm nephrology precaution, dose medications for eGFR less than 10 --waiting on Discharge to [facility]. --Discussed over telephone with his and Mr. Escobedo this morning that although urine culture showing 3 different type of organism, he was on broad- spectrum antibiotic for 5 days and there is no indication of active urinary tract infection other than asymptomatic bacteriuria with chronic Perry catheter. Okay to continue to monitor off of antibiotic at this time. Admission and Anticipated Discharge Date Admission Date: July 16, 2024 Marzena Phan was seen and evaluated this morning. He reports feeling well, denies any concerns except requesting to discontinue renal diet. Potassium and phosphorous has been very well-controlled. BP relatively low but asymptomatic. Review of Systems Review of Systems: Detailed review of system was done and pertinent positives and negatives are mentioned above. Physical Exam Constitutional: WD/WN, vitals as above + ill appearing; no acute distress Eyes: + anicteric sclerae Skin: + turgor decreased, + ulcer and + skin a trophy Psychiatric: Orientation: alert and oriented x 3 Affect: euthymic affect Results & Data Vital Signs (Past 12 Hours) Vital Signs Temp Pulse Resp BP Pulse Ox O2 Del Method 07/22/24 10:10 75 14 115/70 96 Room Air 07/22/24 08:09 36.7 C 89 18 151/72 H 97 Room Air PG Care Time/CCT Total # of Minutes Spent Total Time Spent with Patient: Total time spent is greater than 50% in coordination of care (as documented) at patient's floor/unit and/or counseling patient: Coding Level of Care Code 19019 SUB INP/OBS CARE MIN Diagnoses ESRD (end stage renal disease) on dialysis N18.6; Z99.2 Anemia D64.9 Anemia type: unspecified type Weakness generalized R53.1 Pulmonary edema J81.1 Sacral decubitus ulcer, stage IV L89.154 Ambulatory dysfunction R26.2 (2) Anemia Anemia type: unspecified type Qualified Code(s): D64.9 - Anemia, unspecified
[2024-07-22 19:56] VITALS: O2SAT 96
[2024-07-23 08:28] VITALS: RESP 18
--- NOTE | 2024-07-23 08:41 | Hospitalist Progress Note ---
Date of Service July 23, 2024 Assessment & Plan (1) Weakness generalized: Plan: Was just discharged from [facility] 07/14/24 and patient reports difficulty transferring from bed to wheelchair at home Inability to care for self at home. is not able to safely care for him at this time per patient report Wheelchair dependent at baseline Continue fall and aspiration precautions Was given Cefepime initially for suspected bacterial PNA, but was discontinued on 07/21 and recently completed course Levaquin x 7 days at [facility] PT/OT recommending patient return to [facility]--per CM, not able to accept. Referral pending for [facility] (2) Neuropathic pain: Plan: Spinal ischemia, neurogenic, paraplegia. Patient states he has a cyst at L1/L2 region Has chronic left hip pain/tingling (reports from his back cyst in lumbar region) Reported NEW acute right leg pain/numbness on 07/13 and lumbar spine MRI obtained which did show progressive changes but no change in central canal. ?if neuropathy worsened with recent FLQ use for pneumonia CT head without acute CVA but noted 8mm colloid cyst of third ventricle, ventriculomegaly likely on ex-vacuo basis, hydrocephalus likes likely. Not seen on previous CT from 2019 Discussed with on-call neurologist Dr. Harris - Recommending brain MRI with and without contrast, discussed end-stage renal disease Brain MRI wo contrast with no evidence of acute intracranial pathology. Advanced nonspecific white matter changes. 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 - No need for formal consult at this time as no management necessary, likely incidental finding - Continue gabapentin and fentanyl patch, waiting for rehab as above (3) Pneumonia: Plan: Completed recent course of levofloxacin x 7 days at [facility] for pneumonia CXR on admission showed R>L pleural effusions with atelectasis versus pneumonia, cardiomegaly with pulmonary edema BioFire negative, no leukocytosis, nonhypoxic Was provided cefepime/Azithromycin on admission for atypical pneumonia coverage however was DISCONTINUED 07/21 as low suspicion for active pneumonia CRP continued to downtrend while off antibiotics and remains OFF abx. No WBC elevation/fever Repeat urine cx sent but noting had been on abx -- follow up. Perry to be e xchanged HD for tx CHF - 96% on RA. Continue IS/pulmonary toilet (4) ESRD (end stage renal disease) on dialysis: Plan: History of end-stage renal disease on dialysis Friday, Friday, Friday Nephrology consulted, HD on MWF Midodrine 5mg PO pre dialysis - Continue Sevelmar and Triphrocaps - Diet changed from renal diet per nephrology/patient req and K/renal function stable - Iron WNL, high ferritin but acute phase reactant (5) Sacral decubitus ulcer, stage IV: Plan: Chronic history of stage IV sacral decubitus ulcer - Patient unable to have neurosurgical intervention on lumbar assist due to sacral ulcer - Wound care consulted, follow recommendations provided - Reposition per protocol as patient has difficulty repositioning himself (6) History of CHF (congestive heart failure): Plan: History of HFpEF Last echocardiogram on 04/08/24 showing mild LVH, EF 55 to 60%, moderate aortic stenosis, mild mitral regurg CXR showing cardiomegaly with pulmonary edema Volume status will be managed with hemodialysis (2L UF on 07/20, currently in HD this morning) Strict I&O monitoring, weights 96% on RA Plan Chronic stable diagnoses: * Anemia of chronic disease - stable * Neurogenic bladder - chronic Perry catheter in place, nursing to exchange and will plan for repeat UA/cx as above (was on cefepime until 07/21) * A fib - continue Eliquis, metoprolol * Anxiety/depression - continue mirtazapine and alprazolam prn * Ostomy status -- added colace, monitor output. reported changed 07/22 VTE ppx: Continue Eliquis Dispo: HD for today, ongoing inpatient stay for anticipated placement however [facility] unable to take [facility]. CM following/[facility] referral pending. Admission and Anticipated Discharge Date Admission Date: July 16, 2024 Supervising Physician Co-Signing Physician Notes The patient was not seen by me. The chart was reviewed. Case discussed with BRIGIDO Saleh. Agree with assessment and plan Subjective Eval in HD, no acute complaints. No fever/chills/chest pain/shortness of breath. Pain controlled. Grumpy today, requested to be allowed to sleep during HD. Waiting for rehab, CM following. Physical Exam Physical Exam: General: 78yo male, chronically ill appearing sitting up in bed, NAD, sleeping initially on entry arrival HEENT: head atraumatic, normocephalic, mm slightly dry, trachea midline Resp: even/unlabored, diminished in the bases, no cough/wheezing, remains on ROOM AIR CV: irregularly irregular, rates 60-80s, systolic murmur, trace-1+ bilaterally LE edema (improved) but pulses present GI: +BS, soft/NT, ostomy intact, red beefy stoma but no output MSK/Neuro: moves all extremities but nonfocal, decreased LLE dorsiflexion/plantar flexion reported at baseline due to cyst in his lumbar spine : catheter in place, yellow urine draining Psych: AOx3, upset about being awoken while trying to sleep Results & Data Results & Data Vital Signs (Past 12 Hours) Vital Signs Temp Pulse Resp BP Pulse Ox O2 Del Method 07/23/24 08:26 36.7 C 73 18 138/86 96 Room Air Laboratory Results 07/23/24 Range/Units 10:24 Hep Bs Antigen Negative (Negative) Hep Bs Antibody Immune Hep Bs Antibody, Quant > 500.00 (>or=10mIU/mL Immune) mIU/mL Hep B Core IgM Ab Pending PG Care Time/CCT Total # of Minutes Spent Total Time Spent with Patient: Total time spent is greater than 50% in coordination of care (as documented) at patient's floor/unit and/or counseling patient: Coding Level of Care Code 09542 SUB INP/OBS CARE 2/35MIN Diagnoses Weakness generalized R53.1 Neuropathic pain M79.2 Pneumonia J18.9 Laterality: right Lung location: middle lobe of lung Pneumonia type: due to unspecified organism ESRD (end stage renal disease) on dialysis N18.6; Z99.2 Sacral decubitus ulcer, stage IV L89.154 History of CHF (congestive heart failure) Z86.79 (3) Pneumonia Laterality: right Lung location: middle lobe of lung Pneumonia type: due to unspecified organism Qualified Code(s): J18.9 - Pneumonia, unspecified organism
[2024-07-23] MEDS: MIDODRINE HCL 2.5 MG TAB PO PRN (09:15)
--- NOTE | 2024-07-23 11:00 | Nephrology Progress Note ---
Date of Service July 23, 2024 Assessment & Plan (1) ESRD (end stage renal disease) on dialysis: (2) Anemia: (3) Weakness generalized: (4) Pulmonary edema: (5) Sacral decubitus ulcer, stage IV: (6) Ambulatory dysfunction: Plan 78-year-old gentleman with end-stage kidney disease on hemodialysis, Friday, , Friday via left brachiocephalic AV fistula. Admitted with ambulatory dysfunction and pneumonia. 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 Respiratory status acceptable Electrolyte acceptable. BP acceptable. --Continue MWF dialysis, waiting on rehab discharge. --continue on Nephrocaps --Left arm nephrology precaution, dose medications for eGFR less than 10 Admission and Anticipated Discharge Date Admission Date: July 16, 2024 Subjective Sylvester was seen and evaluated during dialysis this morning. He reports feeling well, denies any concerns. BP relatively low but asymptomatic. Review of Systems Review of Systems: Detailed review of system was done and pertinent positives and negatives are mentioned above. Physical Exam Constitutional: WD/WN, vitals as above + ill appearing; no acute distress Eyes: + anicteric sclerae Respiratory: no respiratory distress Auscultation: lungs clear to auscultation bilaterally Cardiovascular: RRR, no murmur, no edema Skin: + turgor decreased, + ulcer and + skin a trophy Psychiatric: Orientation: alert and oriented x 3 Affect: euthymic affect Results & Data Vital Signs (Past 12 Hours) Vital Signs Temp Pulse Pulse Pulse Resp BP BP 07/23/24 10:00 53 L 94/48 L 07/23/24 09:30 70 105/70 07/23/24 09:00 36.4 C L 80 07/23/24 08:26 36.7 C 73 18 138/86 Pulse Ox O2 Del Method 07/23/24 10:00 07/23/24 09:30 07/23/24 09:00 07/23/24 08:26 96 Room Air PG Care Time/CCT Total # of Minutes Spent Total Time Spent with Patient: Total time spent is greater than 50% in coordination of care (as documented) at patient's floor/unit and/or counseling patient: Coding Level of Care Code 75700 SUB INP/OBS CARE 2/35MIN Diagnoses ESRD (end stage renal disease) on dialysis N18.6; Z99.2 Anemia D64.9 Anemia type: unspecified type Weakness generalized R53.1 Pulmonary edema J81.1 Sacral decubitus ulcer, stage IV L89.154 Ambulatory dysfunction R26.2 (2) Anemia Anemia type: unspecified type Qualified Code(s): D64.9 - Anemia, unspecified
[2024-07-23 11:31] LABS: Hep B Surface Ag with confirm Negative (Negative)
[2024-07-23 11:40] LABS: Hepatitis B Surface Ab Quant > 500.00 mIU/mL (>or=10mIU/mL Immune); Hepatitis B Surface Antibody Immune
--- NOTE | 2024-07-23 12:43 | Discharge Summary ---
Discharge Summary Date of Service July 23, 2024 Principal Dx & Hospital Course #1 = Principal Diagnosis (1) Weakness generalized: Was just discharged from [facility] 07/14/24 and patient reports difficulty transferring from bed to wheelchair at home and unable to care for him at home and required admission for therapy evaluations and placement Wheelchair dependent at baseline but increased difficulty with transfers Baseline spinal ischemia, neurogenic, paraplegia w/ cyst L1/L2 region with chronic left hip pain/tingling from his back but reported NEW right leg numbness on 07/13 and MRI lumbar spine obtained which noted progressive changes but no change in central canal. CT head without acute CVA but noted 8mm colloid cyst of third venticle and ventriculomegaly likely on ex-vacuo basis, hydrocephalus likes likely. Not seen on previous CT from 2019 Discussed with on-call neurologist Dr. Harris who recommended MRI brain which was obtained and did not show acute intracranial pathology. Advanced nonspecific white matter changes. 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 Notable did get recent FLQ use for pneumonia at rehab and ?if contributed to worsened neuropathy which improved since being off this medication. Was initially placed on Cefepime IV for suspected bacterial pneumonia but was discontinued and again just completed course Levaquin x 7 days at [facility]. Continued gabapentin and fentanyl patch, waiting for rehab as above PT/OT consults obtained and CM arranged for ongoing rehab at [facility] with ongoing HD. Did undergo HD treatment prior to dc. CM arranged for transportation. (2) Neuropathic pain: Spinal ischemia, neurogenic, paraplegia. Patient states he has a cyst at L1/L2 region As above, CT/MRI obtained for eval, no acute change. Continued pain control and planned for therapy at co (3) Pneumonia: Biofire negative No leukocytosis or fever, no hypoxia. Initially placed on Cefepime/Azithomycin however CXR w/o consolidation and abx have been discontinued as low suspicion for active pneumonia and underwent HD for volume management. CRP continued to downtrend while off antibiotics and remains OFF abx. No WBC elevation/fever 96% on RA prior to dc (4) ESRD (end stage renal disease) on dialysis: History of end-stage renal disease on dialysis Friday, Friday, Friday Nephrology consulted, HD on MWF Midodrine 5mg PO pre dialysis Continue Sevelmar and Triphrocaps Diet changed from renal diet per nephrology/patient req and K/renal function stable (5) Sacral decubitus ulcer, stage IV: Chronic history of stage IV sacral decubitus ulcer Patient unable to have neurosurgical intervention on lumbar assist due to sacral ulcer Wound care consulted, follow recommendations provided Reposition per protocol as patient has difficulty repositioning himself (6) History of CHF (congestive heart failure): History of HFpEF Last echocardiogram on 04/08/24 showing mild LVH, EF 55 to 60%, moderate aortic stenosis, mild mitral regurg CXR showing cardiomegaly with pulmonary edema Volume status will be managed with hemodialysis (2L UF on 07/20, HD prior to dc 07/23 for 2L UF) Strict I&O monitoring, weights Remained on room air Plan Chronic stable diagnoses: * Anemia of chronic disease - stable * Neurogenic bladder - chronic Perry catheter in place, exchanged prior to dc. Can repeat urine cx if any ongoing sx but initial urine cx rec repeat collection and defer ongoing abx at this time. * A fib - well controlled on eliquis/metoprolol * Anxiety/depression - continue dmirtazapine and alprazolam prn * Ostomy status -- added colace, monitor output. reported changed 07/22, will need ongoing monitoring/can consider enema in ostomy if needed if not having increased output VTE ppx: Continued Eliquis [facility] Notes For Next Care Provider ensure moving bowels, ostomy just changed last evening and has good bowel sounds/nontender abdomen catheter exchanged prior to dc, can repeat urine cx if any issues. Medication Changes From Visit none Admission HPI Per Admitting Provider Patient is a 78-year-old male with a past medical history of end-stage renal disease on dialysis Friday, anemia of chronic disease, sacral wound stage IV, s/p, HFpEF, permanent A-fib, paraplegia. Patient stated he also has a cyst of the L1/L2 region. He comes in today after [facility]. He stated that he is weak and unable to be at home. at [facility] they worked on getting him from bed to chair which she was able to do on discharge, his strength is about the same but his bed is different at home and he is unable to sit up out of bed. His stated that when he tries to sit up he falls backwards. He stated that he has also felt fatigued for about 3 days. He was treated for pneumonia at [facility] with levofloxacin, he said he finished the 7-day antibiotic course about 1 week ago. he has an occasional amount productive cough and dyspnea at rest. Symptoms have been overall unchanged since antibiotic course. He stated that for about a week he has not slept well due to new onset of right leg pain/tingling/numbness. He stated that he is unable to move his right leg, he feels as though the lumbar cyst has grown; he has not had an MRI in quite some time as per the patient. He has chronic right wrist and left hip pain. Patient denies fever, chills, headache, dizziness, lightheadedness, vision changes, rhinorrhea, sore throat, chest pain, abdominal pain, nausea, vomiting, diarrhea, constipation, edema. He lives at home with his who was updated at bedside. He uses CPAP overnight. He took all of his home medications this morning. he placed his fentanyl patch last night. He wishes to be full code at this time. His goal is to have PT/OT here and return back to [facility] for further PT/OT. Admission Exam Per Admitting Provider The patient is awake, alert and oriented 3, well developed and well nourished, normocephalic and atraumatic, in no acute distress. Non-toxic appearing. HEENT- EOMI, mucous membranes dry. Hearing grossly intact. Heart- Irregularly irregular rhythm. normal S1 and S2. No murmurs, rubs or gallops. Lungs- decreased bilaterally, no respiratory distress, no accessory muscle use. Abdomen-normal bowel sounds and soft. No ascites noted. Non-tender. Extremities- no clubbing, cyanosis, or edema. Rheumatologic-decreased range of motion. Psychiatric-normal affect. Musculoskeletal: 4/5 strength L LE - chronic/ baseline 1/ 5 strength R LE - new Discharge Exam General: 78yo male, chronically ill appearing sitting up in bed, NAD, sleeping initially on entry arrival HEENT: head atraumatic, normocephalic, mm slightly dry, trachea midline Resp: even/unlabored, diminished in the bases, no cough/wheezing, remains on ROOM AIR CV: irregularly irregular, rates 60-80s, systolic murmur, trace-1+ bilaterally LE edema (improved) but pulses present GI: +BS, soft/NT, ostomy intact, red beefy stoma but no output MSK/Neuro: moves all extremities but nonfocal, decreased LLE dorsiflexion/plantar flexion reported at baseline due to cyst in his lumbar spine : catheter in place, yellow urine draining Psych: AOx3, upset about being awoken while trying to sleep Discharge Plan Discharge Items Patient Disposition: Transfer Inpatient Rehab Fac Reason For Visit: WEAKNESS, PLACEMENT Discharge Diagnosis: Weakness, need for placement Goals: You have been hospitalized for an acute medical problem. During your stay at [facility], we have made an effort to correct the problem that brought you to the hospital while keeping you as comfortable as possible. Medications were used to bring your condition under control and your discharge instructions will include directions for any medications you should take after leaving the hospital. Please make sure you see your Primary Care Provider as part of your follow up plan. Activity: As commented below Non-emergency contact: Primary Care Provider Call non-emergency contact if: you have any medication questions, your symptoms worsen, your pain is concerning for you and you have a fever Follow-up/Referrals: Jasiel Pineda, DO [Primary Care Provider] - Diet: Dialysis Renal and Heart Healthy Addtl Attending Provider Instructions: You have been hospitalized for ongoing weakness and inability to care for yourself at home presently. Imaging was negative for acute stroke but did show a cyst that was likely noncontributing as discussed previously with the neurologist instructional systems specialist. You were treated with dialysis and therapy evaluations and arrangements have been made for [facility] at discharge. Your ostomy was changed last evening and you have not had output from this heath pia good bowel sounds and should increase bowel regimen to prevent issues. Please follow up with primary care at discharge as well as [facility] lookout tower to monitor your progress after hospitalization. Pending Studies at Discharge: No Stand-Alone Forms: [facility] Skilled Items Patient informed of condition?: Yes DNR: No Discharge Level of Care: Acute rehab Communicable Disease: No Discharge Prognosis: Stable Lines: None Urinary Catheter: No Medications and DC Order Prescriptions: Continued (DME) Power Wheelchair Device See Rx Instructions .Route Qty: 1 0RF Rx Instructions: POWER WHEELCHAIR, DX: R53.1, R26.2 (DME) Mattress (Air or other) Misc See Rx Instructions .Route Qty: 1 0RF Rx Instructions: alternating pressure mattress Eliquis 2.5 mg tablet 2.5 mg PO BID Qty: 180 3RF gabapentin 300 mg capsule 600 mg PO HS Qty: 180 5RF alprazolam 0.25 mg tablet 0.25 mg PO HS PRN (Reason: Anxiety/Panic attacks) Qty: 30 0RF acetaminophen 325 mg tablet 650 mg PO QID PRN (Reason: Pain) docusate sodium 100 mg capsule 100 mg PO BID PRN (Reason: Constipation) mirtazapine 7.5 mg tablet 15 mg PO HS menthol-zinc oxide [Calmoseptine] 0.44-20.6 % ointment 1 applic topical DAILY PRN (Reason: Other) robitussin dm 10 ml PO DIRECTED PRN (Reason: Other) cholecalciferol (vitamin D3) [Vitamin D3] 50 mcg (2,000 unit) Tablet 50 mcg PO QPM sevelamer carbonate 800 mg tablet See Rx Instructions .ROUTE .COMPLEX Rx Instructions: Per spouse: Patient is taking 2400mg by mouth with each meal. However, MD called (Nancie Marker) and states pt should be taking 1600mg with each meal and 800mg with each snack. atorvastatin 20 mg tablet 20 mg PO DAILY midodrine 5 mg tablet 5 mg PO [id number] Rx Instructions: 30 mins prior to Dialysis metoprolol succinate 25 mg tablet extended release 24 hr 25 mg PO QAM Triphrocaps 1 mg capsule 1 cap PO QAM polyethylene glycol 3350 [Miralax] 17 gram Powder In Packet 17 g PO DAILY PRN (Reason: constipation) Qty: 5 0RF fentanyl 25 mcg/hr Patch 72 Hour 1 patch transdermal Q3D Qty: 10 0RF oxycodone 5 mg tablet 5 - 10 mg PO TID PRN (Reason: pain) Qty: 20 0RF Discharge Orders: Discharge Order (Routine); Ordered 07/23/24 Ordered By: Sofia Soni Admission Data Admit Date/Time: 07/16/24 10:54 Attending Provider: Mikey Velázquez Admit Provider: Cuong Yeager Primary Care Provider: Jasiel Pineda Other Providers: uCong Yeager; Cheyanne Cano; [facility]; [facility] Other Interventions: Discharge Summary Assessment (RN) Last Done: 07/23/24 15:06 Hospital Stay Data Consultations 07/16/24 10:25 ED Decision to Admit Stat 07/16/24 10:32 Consult Nephrology Routine Diagnostic Imagining Performed Chest X-Ray 07/16/24 09:06 XR chest 1V portable HISTORY: 78 years-old Male weakness COMPARISON: 05/31/2024 TECHNIQUE: AP view of the chest FINDINGS: Cardiac silhouette is enlarged. Median sternotomy. Vascular congestion with interstitial coarsening. Small right greater than left pleural effusions with right basilar predominant opacities. Findings are similar to prior. Bones appear grossly intact. Right axillary surgical clips. IMPRESSION: 1. Cardiomegaly with pulmonary edema. 2. Small right greater than left pleural effusions with right basilar predominant opacities which may represent atelectasis versus pneumonia. ACT 112: Negative or not required by law. The above report was generated using voice recognition software. It may contain grammatical, syntax or spelling errors. Electronically signed by: Stan Lui M.D. 07/16/2024 9:36 AM Lumbar Spine MRI 07/16/24 11:06 MRI OF THE LUMBAR SPINE WITHOUT CONTRAST CLINICAL HISTORY: Right lower extremity numbness, history of L1/2 cyst COMPARISON STUDY: Lumbar spine MRI June 08, 2021. Lumbar spine CT July 13, 2021. TECHNIQUE: Utilizing a 1.5 Maria T magnet and dedicated coil, multiplanar, multiecho imaging of the lumbar spine was performed without IV contrast. FINDINGS: For purposes of numbering on this exam, the L5-S1 disc space is assigned to axial image 21 of 25 of the lower axial sequences. No lumbar spine fractures are present. There are postoperative findings consistent with L3-L5 decompression and fusion. A sacral decubitus ulcer is partially imaged. Marrow signal abnormality within the sacrum is most pronounced at the S4 level. This corresponds to a site of sclerosis on abdominal CT of April 12, 2024. No intracanalicular mass or fluid collection is present. The conus terminates at the T12-L1 level. This exam is mildly compromised by motion artifact. L1-2: There is moderate facet arthrosis. The central canal and neural foramen are patent. L2-3: There is disc bulge with severe facet arthrosis in extensive ligamentous hypertrophy. This results in severe central canal stenosis with patent AP diameter of the canal is 4.1 mm. This has progressed since MRI of June 08, 2021. There is moderate right and mild left neural foraminal stenosis. L3-4: There is no recurrent central canal stenosis. There is mild bilateral neural foraminal stenosis. L4-5: There is no recurrent central canal stenosis. Neural foramen are patent. L5-S1: Central canal is patent. There is mild bilateral neural foraminal stenosis. IMPRESSION: 1. Status post L3-L5 decompression and fusion. 2. Severe central canal stenosis at L2-L3 which is progressed since previous MRI. This is due to disc bulge with severe facet arthrosis and ligamentous hypertrophy. Otherwise, patent central canal. 3. Exam mildly compromised by motion artifact. 4. Redemonstration of a sacral decubitus ulcer with marrow signal abnormality within the visualized sacrum, as shown on prior CT. This favors chronic osteomyelitis. 5. Multilevel neural foraminal stenosis, as above. ACT 112: Negative or not required by law. Electronically signed by: Chao Connolly M.D. 07/16/2024 2:[address] 07/16/24 11:36 CT head/brain wo con CLINICAL HISTORY: 78 years-old Male with right LE weakness. Acute strokelike symptoms TECHNIQUE: Multiple axial CT images of the head were obtained without contrast. A dose lowering technique was utilized adhering to the principles of ALARA. CT DOSE: 625.8 mGy.cm COMPARISON: 01/15/2020 FINDINGS: No acute intracranial hemorrhage, midline shift, intra-axial mass, acute territorial ischemia or abnormal extra-axial collection. Involutional changes with progressively worsened white matter hypodensities suggestive of probable chronic microvascular ischemic disease. 8 mm hyperdense focus within the third ventricle on image 16 series 2 previously measured 6 mm. Ventriculomegaly has progressed from prior, transverse dimension of the lateral ventricles measuring 4.3 cm, previously 3.8 cm. The calvarium is intact. The paranasal sinuses, mastoid air cells, and middle ear cavities are clear. IMPRESSION: 1. No acute intracranial hemorrhage, midline shift, or acute territorial infarct. 2. Involutional changes with chronic microvascular ischemic disease, progressed from the 01/15/2020 study. 3. 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 4. Ventriculomegaly is likely on an ex vacuo basis. Hydrocephalus considered less likely. ACT 112: Negative or not required by law. The above report was generated using voice recognition software. It may contain grammatical, syntax or spelling errors. Electronically signed by: Stan Lui M.D. 07/16/2024 1:23 PM Brain MRI 07/16/24 13:59 Exam(s): MRI HEAD Without Contrast EXAM: MR Head Without Intravenous Contrast CLINICAL HISTORY: Reason for exam: new 3rd venttricle cyst. TECHNIQUE: Magnetic resonance images of the head/brain without intravenous contrast in multiple planes. COMPARISON: Prior head CT from July 16, 2024. FINDINGS: Brain: There is a small colloid cyst proximal third ventricle measuring 8.6 x 6.6 x 5.1 mm.. Advanced stenosis of bilateral changes. The flow voids at the base of the brain are intact. No mass. No hemorrhage. No acute infarct. Ventricles: Mild ventriculomegaly. Bones/joints: Unremarkable. No acute fracture. Sinuses: Chronic left sphenoid and ethmoid sinusitis. No acute sinusitis. Mastoid air cells: Unremarkable as visualized. No mastoid effusion. Orbits: Bilateral lens replacements. IMPRESSION: No evidence of acute intracranial pathology. 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 Advanced nonspecific white matter changes. Electronically signed by: Nancie Winston MD 07/16/24 22:27 PM Discharge Instructions Given to Patient (Per Discharging Provider) You have been hospitalized for ongoing weakness and inability to care for yourself at home presently. Imaging was negative for acute stroke but did show a cyst that was likely noncontributing as discussed previously with the neurologist instructional systems specialist. You were treated with dialysis and therapy evaluations and arrangements have been made for [facility] at discharge. Your ostomy was changed last evening and you have not had output from this however good bowel sounds and should increase bowel regimen to prevent issues. Please follow up with primary care at discharge as well as [facility] lookout tower to monitor your progress after hospitalization. Supervising Physician Co-Signing Physician Notes The patient was not seen by me. The chart was reviewed. Case discussed with BRIGIDO Saleh. Agree with assessment and plan Total Time Total Time Spent Total Time Spent (In Minutes): 40 Coding Level of Care Code 37857 INP/OBS DISCH >30 MIN Diagnoses Weakness generalized R53.1 Neuropathic pain M79.2 Pneumonia J18.9 Laterality: right Lung location: middle lobe of lung Pneumonia type: due to unspecified organism ESRD (end stage renal disease) on dialysis N18.6; Z99.2 Sacral decubitus ulcer, stage IV L89.154 History of CHF (congestive heart failure) Z86.79
[2024-07-23] MEDS: SENNA 8.6 MG TAB PO SCH (13:16)
[2024-07-23 13:28] VITALS: BP 118/74; PULSE 59; TEMP 97.3
[2024-07-23] MEDS ORDERED: DOCUSATE SODIUM 100 MG CAP PO SCH (21:00)
== END 2024-07-23 16:39 | DRG 947 ==
LOC: ED 08:53 → SUATTDRO 10:54 → EDINP 10:54 → 3W 15:21